=== PATIENT | female | born 1975 | race Caucasian/White ===

== ENCOUNTER 2018-09-02 15:01 | Outpatient (REF) | payer MEDICAID, SELFPAY | END 2018-09-02 15:21 | LOC: NCHCN 15:01 | PROVIDERS: PCP Specialist/Technologist Athletic Trainer; Visit Provider Specialist/Technologist Athletic Trainer | DX: N39.0 Urinary tract infection, site not specified (principal) | CPT/HCPCS: 87086 ==

== ENCOUNTER 2018-11-22 14:00 | Outpatient (REF) | payer MEDICAID, SELFPAY ==
[2018-11-26 12:38] LABS: Helicobacter pylori Ag, Feces Positive (NEGAT)
== END 2018-11-22 14:20 ==
LOC: LBN 14:00
PROVIDERS: PCP Specialist/Technologist Athletic Trainer; Visit Provider Physician Assistant
DX: A04.8 Other specified bacterial intestinal infections (principal)
CPT/HCPCS: 87338

== ENCOUNTER 2019-01-26 12:19 | Emergency (ER) | payer MEDICAID, SELFPAY ==
[2019-01-26 12:24] VITALS: BP 145/88; PULSE 75; RESP 16; TEMP 37; O2SAT 96
--- NOTE | 2019-01-26 12:28 | ED.GENADUL_ITS ---
Discharge Plan Disposition Patient Disposition: HOME Condition: Stable Discharge Details Chief Complaint: Sorethroat Clinical Impression: Pharyngitis Primary Care Provider: Erasmo Portillo ED Provider: Clovis Bower Home Meds and New Rx's Prescriptions: No Action tetracycline 500 mg Capsule 500 mg PO QID RF: 0 metronidazole [Flagyl] 250 mg Tablet 250 mg PO QID RF: 0 pantoprazole [Protonix] 40 mg Tablet,Delayed Release (Dr/Ec) 40 mg PO BID RF: 0 Discharge Instructions Instructions: Pharyngitis (ED) Medical Decision Making 43 yo female comes in with several days of sore throat and subjective fevers. Denies trouble swallowing or breathing. 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 Date/Time Provider Initiated Documentation: 01/26/19 12:19 . Limitations to Documentation: no limitations . Information obtained by: patient . History of Present Illness 43 year old F presents to the emergency department with the chief complaint of sore throat, described as moderate, Quality is described as aching, and is localized to the mouth. Patient reports no radiation. and it has been constant. No relieving factors improve symptom(s), No exacerbating factors reported . Patient notes no other symptoms.. Patient did receive the following treatments prior to arrival, none Related Data Home Medications Medication Instructions Recorded Confirmed metronidazole [Flagyl] 250 mg PO QID 01/26/19 01/26/19 pantoprazole [Protonix] 40 mg PO BID 01/26/19 01/26/19 tetracycline 500 mg PO QID 01/26/19 01/26/19 Allergies Allergy/AdvReac Type Severity Reaction Status Date / Time oxycodone Allergy Unverified 01/26/19 12:28 shellfish Allergy Uncoded 01/26/19 12:27 Review of Systems Review of Systems All systems reviewed & are unremarkable except as noted in HPI and below Constitutional Denies chills, Denies fever(s) and Denies weakness ENT Denies change in voice Cardiovascular Denies chest pain and Denies dyspnea Respiratory Denies cough and Denies dyspnea Gastrointestinal Denies abdominal pain, Denies nausea and Denies vomiting Integumentary/Breasts Denies rash Neurologic Denies weakness Psychiatric Denies depression [facility] Social History Smoking/Tobacco Use Status: Never Substance use type: does not use Exam Const General: no acute distress Orientation: alert HENMT Head: normal to inspection Ears: external ears normal General nose exam: external nose normal Mouth: moist mucous membranes Eyes General: appearance normal, both eyes and all related structures Neck Neck: normal visual inspection Resp Effort & Inspection: normal respiratory effort and able to speak in complete sentences Cardio Rate: regular rate Skin General skin exam: no rashes or lesions noted Neuro General: alert and oriented x3 Extrem General: normal to inspection Psych Mental Status: mental status grossly normal
[2019-01-26] MEDS: Acetaminophen 500 MG TAB 1000 MG PO (12:37)
== END 2019-01-26 12:54 | disposition home or self-care (01) ==
LOC: ER 12:57
PROVIDERS: Emergency Provider Emergency Medicine; PCP Specialist/Technologist Athletic Trainer
DX: J02.9 Acute pharyngitis, unspecified (principal)
CPT/HCPCS: 87880; 99282; 87081

== ENCOUNTER 2019-02-20 09:00 | Outpatient (CLI) | payer MEDICAID, SELFPAY ==
[2019-02-21 10:09] LABS: Hepatitis B Surface Ag Negative (NEGAT)
[2019-02-21 10:20] LABS: Hepatitis C Ab w Rflx HCV PCR Negative (NEGAT)
[2019-02-25 12:28] LABS: Helicobacter pylori Ag, Feces Negative (NEGAT)
== END 2019-02-20 09:20 ==
PROVIDERS: PCP Specialist/Technologist Athletic Trainer; Visit Provider Physician Assistant
DX: K76.0 Fatty (change of) liver, not elsewhere classified (principal); A04.8 Other specified bacterial intestinal infections
CPT/HCPCS: 36415; 86803; 87338; 87340

== ENCOUNTER 2019-07-14 09:38 | Outpatient (CLI) | payer MEDICAID, SELFPAY ==
--- NOTE | 2019-07-14 09:42 | DI.US_ITS ---
SYMPTOM/DIAGNOSIS: RT FLANK PAIN AND GB DISEASE Z87.442, PERSONAL HX OF URINARY CALCULI ABDOMINAL ULTRASOUND,RENAL ULTRASOUND: 07/14 The visualized liver parenchyma is normal in appearance. There is no evidence of cholelithiasis or biliary dilatation. Pancreas appears intact as visualized. Kidneys are normal in size and shape and there is no evidence of a renal mass, hydronephrosis or nephrolithiasis. Urinary bladder is unremarkable in appearance with pre and post void urinary bladder volume measurements 45 cc and 14 cc respectively. Ureteral jets were identified bilaterally. The spleen is unremarkable in appearance. Abdominal aorta and IVC are of normal diameter. CONCLUSION: Negative abdominal/renal ultrasound.
== END 2019-07-14 09:58 ==
PROVIDERS: PCP Physician Assistant Medical; Visit Provider Urology
DX: Z87.442 Personal history of urinary calculi (principal); R10.31 Right lower quadrant pain
CPT/HCPCS: 76770; 76700

== ENCOUNTER 2019-12-18 12:09 | Outpatient (REF) | payer MEDICAID, SELFPAY ==
--- NOTE | 2019-12-18 11:30 | SKI_PTH ---
PATIENT: Vianney Yanes LOC: [facility]#:[id number] AGE/SX: 44/F ROOM: RE12/18/[address]: Erasmo Portillo : 1975 BED: DIS: 12/18/2019 SPEC #: [id number] RECD: 12/19/19 12:49 STATUS: LATRELL REChai #: [id number] ZAHRA: 12/18/19 11:[address]: Erasmo Portillo DEPT: Surgical Specimen RECD BY: Keren Clay ENTERED: 12/19/19 12:49 SP TYPE: KEHINDE HODGSON DR: Sonido Cordoba Tissues: 1 - SKIN BIOPSY(SHAVE/PUNCH) 2 - SKIN BIOPSY(SHAVE/PUNCH) Procedures: SKIN LEVEL 4 Comments: [id number]
== END 2019-12-18 12:29 ==
LOC: NCHCN 12:09
PROVIDERS: PCP Physician Assistant Medical; Visit Provider Specialist/Technologist Athletic Trainer
DX: D22.62 Melanocytic nevi of left upper limb, including shoulder (principal); D22.5 Melanocytic nevi of trunk
CPT/HCPCS: 88305

== ENCOUNTER 2020-04-16 12:38 | Emergency (ER) | payer MEDICAID, SELFPAY ==
[2020-04-16 12:45] VITALS: BP 150/77; PULSE 88; RESP 16; TEMP 36.9; O2SAT 95
--- NOTE | 2020-04-16 13:00 | ED.GENADUL_ITS ---
Discharge Plan Disposition Patient Disposition: HOME Condition: Stable Discharge Details Chief Complaint: AnimalBite Clinical Impression: Dog bite Primary Care Provider: Sonido Cordoba ED Provider: Leyla Herron Meds and New Rx's Prescriptions: New amoxicillin-pot clavulanate [Augmentin] 875-125 mg tablet 1 tab PO BID Qty: 20 RF: 0 Continued pantoprazole [Protonix] 40 mg Tablet,Delayed Release (Dr/Ec) 40 mg PO BID RF: 0 Discharge Instructions Instructions: Animal Bite (ED) Additional Instructions: Wash area gently with soap and water once or twice daily. Apply topical antibiotic ointment to the wound. Use antibiotics as prescribed by mouth. Consider probiotic with use of your antibiotic Tylenol for soreness if needed. Keep hand elevated for throbbing. Observe for any signs of increased redness, swelling or pain as discussed. Any indication of infection or drainage have reevaluation in the emergency room. Your x-ray today was normal Recheck blood pressure with her primary care doctor as it was mildly elevated. Return for any worsening, concerns or alarming symptoms sooner if needed Medical Decision Making <WANDY Byers - Last Filed: 04/16/20 13:40> Is a 44-year-old patient presenting after a dog bite to her right hand sustained today when playing tug-of-war with her dog. Patient is a small 1 cm laceration to the dorsal aspect of her right hand. She does have focal pain at the site. Please see HPI for the remainder patient's history. Patient's dog's rabies are up-to-date. Patient's tetanus is up-to-date. Patient has mild focal pain with palpation. After discussion of x-ray patient would prefer x-ray at this time. Patient has nothing to indicate ligamentous injury. X-ray obtained and unremarkable for acute fracture dislocation. Patient provided initial dose of antibiotics in the emergency room. Wound was cleaned and irrigated, dressing placed. Counseled regarding conservative treatments in addition to concerns of infection. Discussed antibiotic use, signs and symptoms or return. The patient was stable and requested discharge. Prior to discharge, my usual and customary return precautions were reviewed with the patient - this included follow-up instructions and reasons to return to the Emergency Department if conditions worsens, does not improve as expected, or other new concerns arise. <Clovis Bower MD - Last Filed: 04/16/20 13:02> I had a [id number] encounter with the patient. I evaluated the patient. I discussed case with ESCALATOR OPERATOR/PA and I reviewed ESCALATOR OPERATOR/PA note and agree with note as documented HPI <WANDY Byers - Last Filed: 04/16/20 13:40> General Date/Time Provider Initiated Documentation: 04/16/20 12:46 . HPI Narrative: This is a 44-year-old patient presenting the emergency room complaints of a dog bite prior to arrival. Patient was playing tug of war with her own dog and dog bit too close to the toy and hit the dorsal aspect of her right hand. Patient sustained a 1 cm superficial laceration to the dorsal aspect of the hand. Does complain of pain through the fourth and fifth digit. Patient's tetanus up-to-date in 2019, dog's rabies are up-to-date. Patient denies numbness, tingling or weakness. Pain with range of motion of the fourth and fifth digit is reported. Bleeding is controlled. Patient denies any other sites of injuries or concerns. Injury did occur prior to arrival. Related Data Home Medications Medication Instructions Recorded Confirmed pantoprazole [Protonix] 40 mg PO BID 01/26/19 04/16/20 amoxicillin-pot clavulanate 1 tab PO BID #20 tab 04/16/20 [Augmentin] Previous Rx's Medication Instructions Recorded amoxicillin-pot clavulanate 1 tab PO BID #20 tab 04/16/20 [Augmentin] Allergies Allergy/AdvReac Type Severity Reaction Status Date / Time oxycodone Allergy Unverified 04/16/20 12:56 shellfish Allergy Uncoded 04/16/20 12:56 General Stated Complaint: AnimalBite EBONIE: 3 Review of Systems <WANDY Byers - Last Filed: 04/16/20 13:40> All systems reviewed & are unremarkable except as noted in HPI and below PFSH <WANDY Byers - Last Filed: 04/16/20 13:40> Social History Smoking/Tobacco Use Status: Never Alcohol Intake: current Alcohol Intake frequency: holidays/special occasions only Substance use type: does not use Do you feel safe at home: Yes Do you feel safe in your relationship?: Yes Exam <WANDY Byers - Last Filed: 04/16/20 13:40> Narrative Exam Narrative: CONST: Healthy appearing patient, in no acute distress. Well hydrated. Alert and oriented. HENMT: Head nomocephalic, normal to inspection. Atraumatic. Hearing grossly normal. EYES: General normal appearance. Alignment normal. Eyelids normal. Conjunctiva normal. NECK: Normal visual inspection. FROM. Trachea midline. No Midline tenderness. CHEST: Normal insepection of the chest. RESP: Normal respiratory effort. Speaking full sentences. No cough. No audible wheezing. No retractions. CARDIO: No JVD. MUSCULOSKELETAL: Normal Gait. FROM of all extremities. Right arm: Right hand with a small 1 cm linear superficial laceration without noted deep extension. Patient has mild hand pain to palpation over the fourth and fifth metacarpal distally. Mild digit pain with palpation of the fourth and fifth digit. Flexion extension intact throughout hand. No sign of erythema or secondary infection at this time. Bleeding is controlled. Television Mechanic strength intact. No pain or injury proximal to the hand. SKIN: Normal. Dry. No rashes. NEURO: Alert and awake. Speech clear. PSYCH: Normal affect. Cooperative. Course <WANDY Byers - Last Filed: 04/16/20 13:40> Vital Signs Vital signs: Vital Signs Temperature 36.9 C 04/16/20 12:45 Pulse 88 04/16/20 12:45 Respiratory Rate 16 04/16/20 12:45 Blood Pressure 150/77 H 04/16/20 12:45 Pulse Oximetry 95 04/16/20 12:45 Temperature 36.9 C 04/16/20 12:45 Temperature Source Skin 04/16/20 12:45 Pulse 88 04/16/20 12:45 Respiratory Rate 16 04/16/20 12:45 Respiratory Effort 04/16/20 12:58 Blood Pressure 150/77 H 04/16/20 12:45 Blood Pressure Position Sitting 04/16/20 12:45 Pulse Oximetry 95 04/16/20 12:45 Oxygen Delivery Method Room Air 04/16/20 12:45 Oxygen Flow Rate 0 04/16/20 12:45 Pain Level 8 04/16/20 12:45 Comment 04/16/20 12:45
--- NOTE | 2020-04-16 13:15 | DI.RAD_ITS ---
EXAM: XR HAND RT COMPLETE CLINICAL HISTORY: dog bite right hand MILLER ROD MILL. TECHNIQUE: 2D digital imaging was performed. COMPARISON: No exams were available for comparison FINDINGS: BONES: No acute fracture is present. No bony destructive lesion is seen. JOINTS: No dislocation present. SOFT TISSUE: Normal. No radiopaque foreign body. IMPRESSION: No acute fracture, dislocation or foreign body. DATA REPOSITORY: RADIATION DOSE DELIVERED:
[2020-04-16] MEDS: Amoxicillin 875/Clav. 125 TAB PO (13:36)
[2020-04-16 13:41] VITALS: BP 142/81; PULSE 78; RESP 16; TEMP 36.9; O2SAT 97
[2020-04-16 13:43] VITALS: BP 142/81; PULSE 78; RESP 16; TEMP 36.9; O2SAT 97
[2020-04-16] MEDS: Bacitracin 1 PACKET (13:57)
== END 2020-04-16 13:46 | disposition home or self-care (01) ==
LOC: ER 13:51
PROVIDERS: Emergency Provider Physician Assistant; PCP Physician Assistant Medical
DX: S61.451A Open bite of right hand, initial encounter (principal); W54.0XXA Bitten by dog, initial encounter
CPT/HCPCS: 99283; 73130

== ENCOUNTER 2020-06-29 17:11 | Outpatient (REF) | payer MEDICAID, SELFPAY ==
[2020-06-29 19:01] LABS: Bilirubin Negative (Negative); Blood Negative (Negative); Clarity Clear (Clear); Glucose Negative (Negative); Ketones Negative (Negative); Leukocyte Esterase Negative (Negative); Nitrite Negative (Negative); Specific Gravity 1.015 (1.005-1.025); Urobilinogen 0.2 EU/dL (Up TO 0.2)
== END 2020-06-29 17:31 ==
LOC: NCHCN 17:11
PROVIDERS: PCP Physician Assistant Medical; Visit Provider Family Medicine
DX: R35.0 Frequency of micturition (principal)
CPT/HCPCS: 81003

== ENCOUNTER 2020-07-14 01:13 | Outpatient (CLI) | payer MEDICAID, SELFPAY ==
--- NOTE | 2020-07-14 | DI.US_ITS ---
EXAM: US RENAL PELVIC TRANSVAGINAL CLINICAL HISTORY: URINARY FREQUENCY,R35.0,PELVIC PAIN,R10.2. TECHNIQUE: Lee scale, color and spectral Doppler were used. COMPARISON: US US ABDOMEN RENAL from 07/14/2019 FINDINGS: Renal ultrasound: Renal size in cm: Right: 12.3 left: 12.8 Echogenicity: Normal Hydronephrosis: No Cyst or mass: No Nephrolithiasis: No Other findings: None Bladder:Suboptimally evaluated due to under distension. Prevoid vol:29 cc Postvoid vol:2 cc DOPPLER FINDINGS: Both ureteral jets were visualized. Pelvic ultrasound: The uterus measures 8.8 x 4.6 x 5.7 cm. No fibroids are seen. The endometrium me asures 7 millimeters in thickness. The ovaries are normal in size and appearance. No free fluid is seen in the cul de sac. IMPRESSION: Unremarkable pelvic ultrasound. No evidence of urinary tract calculi or hydronephrosis. DATA REPOSITORY:
== END 2020-07-14 01:33 ==
PROVIDERS: PCP Physician Assistant Medical; Visit Provider Family Medicine
DX: R35.0 Frequency of micturition (principal); R10.2 Pelvic and perineal pain
CPT/HCPCS: 76770; 76830; 76856

== ENCOUNTER 2020-07-20 15:54 | Outpatient (REF) | payer MEDICAID, SELFPAY ==
[2020-07-20 20:10] LABS: Abs Immature Grans 0.02 10^3/uL (0.0-0.06); Absolute Basophil Count 0.03 10^3/uL (0.0-0.2); Absolute Eosinophil Count 0.11 10^3/uL (0.0-0.7); Absolute Lymphocyte Count 3.13 10^3/uL (1.2-3.4); Absolute Monocyte Count 0.57 10^3/uL (0.1-0.8); Basophils % 0.4; Eosinophils % 1.4; HCT 39.6 % (36.0-46.0); HGB 13.1 g/dL (11.2-15.7); Immature Grans % 0.3; Lymphocytes % 40.9; MCH 30.7 pg (27.0-33.0); MCHC 33.1 % (32.0-36.0); MCV 92.7 fL (80-95); MPV 11.7 fL (8.0-11.0); Monocytes % 7.4; Neutrophils % 49.6; Nucleated RBC 0 %; Platelet Count 280 10^3/uL (130-400); RBC 4.27 10^6/uL (3.93-5.22); RDW 12.1 % (11.7-14.6); WBC 7.66 10^3/uL (4.4-10.8)
[2020-07-20 20:14] LABS: ALT 19 U/L (14-59); AST 19 U/L (15-37); Albumin 3.9 g/dL (3.4-5.0); Alkaline Phosphatase 67 U/L (46-116); Anion Gap 9.4 mmol/L (3-11); BUN 15 mg/dL (7-18); Bilirubin, Total 0.4 mg/dL (0.2-1.0); CO2 24.6 mmol/L (21.0-32.0); CREATININE 0.81 mg/dL (0.55-1.02); Calcium 9.1 mg/dL (8.5-10.1); Chloride 106 mmol/L (98-107); Glucose 75 mg/dL (74-106); Potassium 4.1 mmol/L (3.5-5.1); Sodium 140 mmol/L (136-145); TSH (W/Ref FT4) 1.11 uIU/mL (0.36-3.74); Total Protein 6.8 g/dL (6.4-8.2)
== END 2020-07-20 16:14 ==
LOC: NCHCN 15:54
PROVIDERS: PCP Physician Assistant Medical; Visit Provider Physician Assistant Medical
DX: R00.1 Bradycardia, unspecified (principal); Z01.818 Encounter for other preprocedural examination
CPT/HCPCS: 80053; 84443; 85025

== ENCOUNTER 2021-01-21 14:47 | Outpatient (REF) | payer MEDICAID, SELFPAY ==
[2021-01-21 18:32] LABS: ALT 19 U/L (14-59); AST 14 U/L (15-37); Albumin 4.1 g/dL (3.4-5.0); Alkaline Phosphatase 92 U/L (46-116); Anion Gap 10.7 mmol/L (3-11); BUN 15 mg/dL (7-18); Bilirubin, Total 0.4 mg/dL (0.2-1.0); CO2 25.3 mmol/L (21.0-32.0); CREATININE 0.9 mg/dL (0.55-1.02); Calcium 9.5 mg/dL (8.5-10.1); Calculated LDL 151 mg/dL (<100); Chloride 107 mmol/L (98-107); Cholesterol 217 mg/dL (<200); Glucose 94 mg/dL (74-106); HDL Cholesterol 44 mg/dL (40-60); Potassium 4.3 mmol/L (3.5-5.1); Sodium 143 mmol/L (136-145); TSH (W/Ref FT4) 2.29 uIU/mL (0.36-3.74); Total Protein 7.6 g/dL (6.4-8.2); Triglyceride 113 mg/dL (<150)
== END 2021-01-21 14:48 | disposition home or self-care (01) ==
LOC: NCHCN 14:47
PROVIDERS: PCP Physician Assistant Medical; Visit Provider Physician Assistant Medical
DX: Z13.220 Encounter for screening for lipoid disorders (principal); Z13.29 Encounter for screening for other suspected endocrine disorder; Z13.228 Encounter for screening for other metabolic disorders
CPT/HCPCS: 80053; 80061; 84443

== ENCOUNTER 2021-01-26 01:28 | Outpatient (CLI) | payer MEDICAID, SELFPAY ==
--- NOTE | 2021-01-26 | DI.MAMMO_ITS ---
EXAM: MG MAMMO SCREENING CLINICAL HISTORY: SCREENING, HEALTH MAINTENANCE EXAM,Z00.8. TECHNIQUE: Bilateral full field digital CC and MLO mammographic images were obtained with 3D tomosyn thesis and utilizing computer aided detection (CAD). COMPARISON: Prior outside mammogram performed August 2017. FINDINGS: Posteriorly in the left breast there is a benign-appearing noncalcified nodule measuring 11 x 10 mill imeters located 10 cm in from the nipple, having the appearance of a probable lymph node and unchange d from 2017 and therefore benign. No other focal significant finding in the left breast. Anteriorly in the right breast there is some asymmetric tissue which exhibits benign appearance on bi plane 3D imaging. No malignant-appearing microcalcification groups in either breast. There is no significant architectural distortion nor skin thickening-retraction. IMPRESSION: Benign findings. No radiographic evidence of malignancy. BI-RADS Category 2 - Benign Findings Breast Density - Category B - Scattered areas of fibroglandular density Breast density Category C or D implies that the patient has dense breast tissue. Dense breast tissue can make it harder to find cancer on a mammogram. Dense breast tissue is also associated with an incr eased risk of breast cancer. This information about the result of the mammogram report was provided to the patient to raise their awareness. Use this report when you speak with the patient about their risks for breast cancer, which includes their family history. At that time, you may recommend additional screening tests (Ultrasoun d or MRI) as these tests may add significant information. A negative radiographic report should not delay biopsy if a dominant or clinically suspicious mass is present. Up to ten percent of cancers are not identified on mammography. A negative report may reinforce clinical impression. Adenosis and dense breasts may obscure an underlying neoplasm. False positive reports average 6 to 10%. Patient will receive a letter notifying them of these results.
== END 2021-01-26 01:48 ==
PROVIDERS: PCP Physician Assistant Medical; Visit Provider Physician Assistant Medical
DX: Z12.31 Encounter for screening mammogram for malignant neoplasm of breast (principal)
CPT/HCPCS: 77063; 77067

== ENCOUNTER 2021-10-21 14:52 | Outpatient (REF) | payer MEDICAID, SELFPAY ==
[2021-10-21 20:12] LABS: Calculated LDL 135 mg/dL (<100); Cholesterol 195 mg/dL (<200); Glucose 91 mg/dL (74-106); HDL Cholesterol 48 mg/dL (40-60); Triglyceride 64 mg/dL (<150)
[2021-10-21 20:23] LABS: Hemoglobin A1C 5.4 % (<5.7)
[2021-10-27 09:48] LABS: Insulin 26.4 uIU/mL (<29.0)
== END 2021-10-21 14:53 | disposition home or self-care (01) ==
LOC: NCHCN 14:52
PROVIDERS: PCP Physician Assistant Medical; Visit Provider Physician Assistant Medical
DX: E66.9 Obesity, unspecified (principal)
CPT/HCPCS: 80061; 82947; 83036; 83525

== ENCOUNTER 2021-11-17 01:52 | Outpatient (CLI) | payer MEDICAID, SELFPAY ==
--- NOTE | 2021-11-17 14:00 | DI.RAD_ITS ---
Exam(s) XR HAND RT COMPLETE EXAM: XR HAND RT COMPLETE CLINICAL HISTORY: RT HAND PAIN, M79.641. TECHNIQUE: 2D digital imaging was performed. COMPARISON: CR XR HAND RT COMPLETE from 04/16/2020 FINDINGS: BONES: No acute fracture is present. No bony destructive lesion is seen. JOINTS: No dislocation present. SOFT TISSUE: Normal. IMPRESSION: Unremarkable radiographs of the right hand. DATA REPOSITORY: RADIATION DOSE DELIVERED:
== END 2021-11-17 02:12 ==
PROVIDERS: PCP Physician Assistant Medical; Visit Provider Physician Assistant Medical
DX: M79.641 Pain in right hand (principal)
CPT/HCPCS: 73130

== ENCOUNTER 2021-12-06 17:19 | Outpatient (REF) | payer MEDICAID, SELFPAY ==
[2021-12-07 14:32] LABS: COVID-19 RT-PCR UVMMC Result Negative (Negative)
== END 2021-12-06 17:20 | disposition home or self-care (01) ==
LOC: LBN 17:19
PROVIDERS: PCP Physician Assistant Medical; Visit Provider Nurse Practitioner Family
DX: Z20.822 Contact with and (suspected) exposure to COVID-19 (principal)
CPT/HCPCS: U0003

== ENCOUNTER 2022-12-01 11:59 | Outpatient (REF) | payer MEDICAID, SELFPAY ==
--- NOTE | 2022-12-01 11:00 | PAPFT_PTH ---
PATIENT: Vianney Yanes LOC: [facility] U#:[id number] AGE/SX: 47/F ROOM: RE12/01/[address]: Sonido Cordoba : 1975 BED: DIS: 12/01/2022 SPEC #: [id number] RECD: 12/01/22 18:45 STATUS: LATRELL REQ #: [id number] ZAHRA: 12/01/22 11:[address]: Sonido Cordoba DEPT: [facility] Cytology RECD BY: Keren Clay Tissues: 1 - CX/ENDOCX FOR PAP SMEARS Procedures: PAP THIN PREP/UVM Screening HPV DNA PROBE Comments: [id number]
[2022-12-01 19:31] LABS: HCT 39.5 % (36.0-46.0); HGB 13.2 g/dL (11.2-15.7); MCH 29.8 pg (27.0-33.0); MCHC 33.4 % (32.0-36.0); MCV 89 fL (80-95); MPV 10.8 fL (8.0-11.0); Platelet Count 305 10^3/uL (130-400); RBC 4.43 10^6/uL (3.93-5.22); RDW 11.7 % (11.7-14.6); RDW-SD 37.5 fL; WBC 7.56 10^3/uL (4.4-10.8)
[2022-12-01 19:43] LABS: ALT 16 U/L (14-59); AST 22 U/L (15-37); Albumin 4.2 g/dL (3.4-5.0); Alkaline Phosphatase 91 U/L (46-116); Anion Gap 9.7 mmol/L (3-11); BUN 15 mg/dL (7-18); Bilirubin, Total 0.4 mg/dL (0.2-1.0); CO2 26.3 mmol/L (21.0-32.0); CREATININE 0.8 mg/dL (0.55-1.02); Calcium 9.4 mg/dL (8.5-10.1); Chloride 104 mmol/L (98-107); Estimated GFR 91.97 (mL/min/1.73m2); Glucose 93 mg/dL (74-106); Potassium 3.9 mmol/L (3.5-5.1); Sodium 140 mmol/L (136-145); Total Protein 7.8 g/dL (6.4-8.2)
[2022-12-01 19:48] LABS: Hemoglobin A1C 5.5 % (<5.7)
[2022-12-01 20:01] LABS: Calculated LDL 122 mg/dL (<100); Cholesterol 185 mg/dL (<200); HDL Cholesterol 51 mg/dL (40-60); Triglyceride 60 mg/dL (<150)
== END 2022-12-01 12:00 | disposition home or self-care (01) ==
LOC: LBN 11:59
PROVIDERS: PCP Physician Assistant Medical; Visit Provider Physician Assistant Medical
DX: Z12.4 Encounter for screening for malignant neoplasm of cervix (principal); Z11.51 Encounter for screening for human papillomavirus (HPV); Z00.8 Encounter for other general examination
CPT/HCPCS: 80053; 80061; 85027; 88142; 83036; 87624

== ENCOUNTER 2023-03-23 00:51 | Outpatient (CLI) | payer MEDICAID, SELFPAY ==
--- NOTE | 2023-03-23 08:30 | DI.MAMMO_ITS ---
Exam(s) MAMMO SCREENING EXAM: MAMMO SCREENING CLINICAL HISTORY: SCREENING, Z12.31 TECHNIQUE: Bilateral full field digital CC and MLO mammographic images were obtained with 3D tomosyn thesis and utilizing computer aided detection (CAD). COMPARISON: Available for comparison. FINDINGS: Masses/Architectural Distortion: There are stable nodule seen in the posterior superior left breast o n the MLO view and the outer right breast on the CC view. No suspicious nodules or suspicious areas of architectural distortion are present. Microcalcifications: No suspicious pleomorphic-type are seen. Skin Thickening/Nipple Retraction: None. IMPRESSION: 1. No significant interval change with no specific features of malignancy noted. 2. Unless there is more urgent need, screening mammography is recommended, as per [place] [employer] guidelines. BI-RADS Category 2 - Benign Findings Breast Density - Category B - Scattered areas of fibroglandular density Breast density category C or D implies that the patient has dense breast tissue. Dense breast tissue is very common and is not abnormal but dense breast tissue can make it harder to find cancer on a ma mmogram. Also, dense breast tissue may increase their breast cancer risk. This information about the result of the mammogram report was provided to the patient to raise their awareness. Use this report when you speak with the patient about their risks for breast cancer, which includes their family hist ory. At that time, you may recommend for more screening tests (Ultrasound or MRI) as they might be us eful based on their risk. A negative radiographic report should not delay biopsy if a dominant or clinically suspicious mass is present. Up to ten percent of cancers are not identified on mammography. A negative report may reinforce clinical impression. Adenosis and dense breasts may obscure an underlying neoplasm. False positive reports average 6 to 10%. Patient will receive a letter notifying them of these results.
== END 2023-03-23 01:11 ==
LOC: DI 00:51
PROVIDERS: PCP Physician Assistant Medical; Visit Provider Physician Assistant Medical
DX: Z12.31 Encounter for screening mammogram for malignant neoplasm of breast (principal)
CPT/HCPCS: 77063; 77067

== ENCOUNTER 2023-03-26 15:40 | Outpatient (CLI) | payer MEDICAID, SELFPAY ==
--- NOTE | 2023-03-26 | DI.RAD_ITS ---
Exam(s) XR CERVICAL SPINE COMP 4-5V EXAM: XR CERVICAL SPINE COMP 4-5V CLINICAL HISTORY: Cervicalgia, M54.2. TECHNIQUE: 2D digital imaging was performed. Five images were obtained. AP, odontoid, lateral and bi lateral oblique images were obtained. COMPARISON: No exams were available for comparison FINDINGS: The odontoid is intact. The lateral masses are well aligned. There is normal alignment of the cervi burak spine. The vertebral bodies, disc spaces and posterior elements are well maintained. No acute f racture or subluxation is present. No significant neural foraminal stenosis is present. The cervical thoracic junction is well maintained. The prevertebral soft tissues are unremarkable. Lung apices a re clear. IMPRESSION: Unremarkable radiographs of the cervical spine. DATA REPOSITORY: RADIATION DOSE DELIVERED:
== END 2023-03-26 16:00 ==
LOC: DI 15:41
PROVIDERS: PCP Physician Assistant Medical; Visit Provider Nurse Practitioner Family
DX: M54.2 Cervicalgia (principal)
CPT/HCPCS: 72050

== ENCOUNTER → 2023-09-21 23:02 | Outpatient (CLI) | payer MEDICAID, SELFPAY ==
--- NOTE | 2023-09-21 | DI.RAD_ITS ---
Exam(s) XR FOOT RT COMPLETE EXAM: XR FOOT RT COMPLETE CLINICAL HISTORY: Pain in right foot M79.671. TECHNIQUE: 2D digital imaging was performed. COMPARISON: No exams were available for comparison FINDINGS: 3 views No evidence of acute fracture or diastasis of the Lisfranc joint. Great toe metatarsophalangeal join t appears unremarkable. There is prominent inferior calcaneal spur noted. Also small in these 0 fig ht on the posterior calcaneus Achilles insertion site. Bone density normal. No osseous lesions. No radiopaque foreign body. IMPRESSION: No acute osseous findings in the foot. DATA REPOSITORY: RADIATION DOSE DELIVERED:
== END ==
PROVIDERS: PCP Physician Assistant Medical; Visit Provider Physician Assistant Medical
DX: M79.671 Pain in right foot (principal)
CPT/HCPCS: 73630

== ENCOUNTER → 2024-03-24 02:17 | Outpatient (CLI) | payer MEDICAID, SELFPAY ==
--- NOTE | 2024-03-24 | DI.MAMMO_ITS ---
Exam(s) MAMMO SCREENING EXAM: MAMMO SCREENING CLINICAL HISTORY: SCREENING, Z12.31. TECHNIQUE: Bilateral full field digital CC and MLO mammographic images were obtained with 3D tomosyn thesis and utilizing computer aided detection (CAD). COMPARISON: Prior mammograms were reviewed. FINDINGS: There has been no significant change in the appearance and distribution of the fibroglandular tissue. Small benign intramammary lymph node in the right breast upper outer quadrant unchanged from prior st udies. Few benign microcalcifications posteriorly in left breast are also unchanged. There are no new spiculated masses nor new malignant appearing microcalcification groups. There is no significant architectural distortion nor skin thickening-retraction. IMPRESSION: No radiographic evidence of malignancy. BI-RADS Category 2 - Benign Findings Breast Density - Category B - Scattered areas of fibroglandular density Breast density Category C or D implies that the patient has dense breast tissue. Dense breast tissue can make it harder to find cancer on a mammogram. Dense breast tissue is also associated with an incr eased risk of breast cancer. This information about the result of the mammogram report was provided to the patient to raise their awareness. Use this report when you speak with the patient about their risks for breast cancer, which includes their family history. At that time, you may recommend additional screening tests (Ultrasoun d or MRI) as these tests may add significant information. A negative radiographic report should not delay biopsy if a dominant or clinically suspicious mass is present. Up to ten percent of cancers are not identified on mammography. A negative report may reinforce clinical impression. Adenosis and dense breasts may obscure an underlying neoplasm. False positive reports average 6 to 10%. Patient will receive a letter notifying them of these results.
== END ==
PROVIDERS: PCP Physician Assistant Medical; Visit Provider Physician Assistant Medical
DX: Z12.31 Encounter for screening mammogram for malignant neoplasm of breast (principal)
CPT/HCPCS: 77063; 77067

== ENCOUNTER 2024-10-16 17:33 | Outpatient (REF) | payer MEDICAID, SELFPAY ==
--- OUTSIDE RECORDS SUMMARY | 2024-10-16 17:35 | XMS_ITS | Clinical Summary ---
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 04/05/2015 12:37 PM 04/06/2015 5:44 PM Question Answer Comments Does patient have decision m aking capacity? Yes, order is based on Patient wishes. Care Teams Master [place] Relationship Specialty Start Date End Date Sonido Cordoba PA [address] [place] [address] PCP - General Family Medicine 07/06/20
--- OUTSIDE RECORDS SUMMARY | 2024-10-16 17:35 | XMS_ITS | Encounter Summary ---
Author Organization [facility] [place] [address] Care Team Providers Care Foot Caster Name Role Phone Sonido Cordoba Primary Care Provider [phone]- [phone] Encounter Details Date Type Department Care Team (Latest Contact Info) Description 09/15/2024 Travel Social History Tobacco Use Types Packs/Day Years Used Date Smoking Tobacco: Former Cigarettes 0.5 6 0 01/25/1991 - 01/25/1997 Smokeless Tobacco: Never Alcohol Use Standard Drinks/Week Comments Not Currently 0 (1 standard drink = 0.6 oz pur e alcohol) 1X/quarter IPV Inpatient Questions Answer Date Recorded Does Anyone [...] PM EDT Sexual Orientation Not on file documented as of this encounter Plan of Treatment Upcoming Encounters Date Type Department Care Team ( Contact Info) Description 12/31/2024 10:00 AM EST Office Visit Weight Center at [facility] [place] [address] Mercy Amanda MD [facility] [address] [facility] [address] 04/01/2025 2:00 PM EDT Office Visit Gastroenterology at [facility] [place] [id number] Erum Szymanski MD [facility] [place] [address] documented as of this encounter Goals Goal Patient Goal Type Associated Problems Recent Progress Patient-Stated? Author continue to track in an mika Lifestyle Asha Chung MD Note: Try goal of 1500 Collecting [...] a priority: - Eggs - Cheese - Macedonian yogurt / cottage cheese - meat - fish - nuts/seeds - protein shake or bar Start with the protein, can choose to add other foods (would rather have you choose regular bread/ syrian muffin, etc. - whole wheat if possible- instead of the muffin or poptart) eating timing guides Lifestyle On track(2022 9:49 AM EDT) No Priti Skinner RD Note: Aim for no more than [...] behaviors Lifestyle On track(2022 9:48 AM EDT) No Sunita Bills RD Note: Eating behaviors to practice prior [...] day - see FAQ for more details documented as of this encounter Visit Diagnoses Not on filedocumented in this encounter Care Teams Foot Caster Relationship Specialty Start Date End Date Sonido Cordoba PA [address] [place] [address] PCP - General Family Medicine 07/06/20 documented as of this encounter
--- OUTSIDE RECORDS SUMMARY | 2024-10-16 17:35 | XMS_ITS | Data Portability ---
Author Organization [place] - [facility] Address [place] [address] Assessment No assessment recorded. Plan of Treatment Reminders Order Date Submit Date Provider Last Modified By Organization Details Last Modified Time Details Appointments Acute 30 2023 03:30P M Ezekiel Sanches Not available Not available Not available Follow Up 2024 11:00A M SONIDO RAVI Not available Not available Not available Lab None recorded. Referral orthopedi c surgeon referral 2023 024 [facility], [address] [place] [address] [place], [address], 07/18/2024 17:29:54 Procedures None recorded. Surgeries None recorded. Imaging MAMMO, screening , bilateral - LAST 03/23/232023 024 [facility], [address], [place], [address], 04/04/2024 08:34:55 Medication Orders hydrocort isone 2.5 % topical cream 2023 024 [facility], [address] [place] [address], [address], 03/13/2024 11:13:25 Patient TargetsNo targets recorded. Patient Instructions Encounter Date Encounter Id Patient Instructions Last Modified By Organization Details Last Modified Time 03/13/2024 [id number] 1. It seems to simran malagon that these church are bug bites. I do recommend checking again around the house to make sure that nobody else around you is having similar bug bites. I also recommend paying attention more while outside to see if you note that you are being bit. 2. In an effort to help control the itch I have sent for a low-dose steroid cream you can apply to the areas of itch no more than twice a day and no longer than 2 weeks in any 1 area. 3. I would also like you to get the generic form of Zyrtec and dxhh-mth-tjvuxrn allergy medication that is nondrowsy. This will help with itch. I recommend taking it during the daytime. I also recommend taking 1 tablet of Benadryl at nighttime because this 1 is sedating. 4. I also recommend applying ice to the areas of itch. This can greatly help. Heat often increases itch. 5. If the above does not improve symptoms and/or they have any worsening please seek reevaluation as needed [email or web address] Not available 03/13/2024 11:14:24 Reason for Referral Orthopedic Surgeon Referral for Trigger thumb of left hand Referring Physician: Sonido Ravi, Family Medicine, Encounter Date: 06/09/2024 Results Created Date Observation Date Name Description Value Unit Range Abnormal Flag Note LastModifiedBy Organization Detail LastModifiedTime 03/24/20 24 03/24/2024 yuriy OVIEDOrian rohan Name: Jaxon Yanes Unit #: [id number] Loc: DI Orderi ng Provid er: Maggie Swanson rn Accoun t #: [id number] Status : REG CLI Primar y Care Provid er: Maggie Swanson rn Date of Exa m: Sex: F Admiss ion Date: : 1974 Age: 48 Exam(s ) MG MAMMO SCREEN ING EXAM: MG MAMMO SCREEN ING CLINIC AL HISTOR Y: SCREEN ING, Z12.31 . TECHNI QUE: Bilate ral full field digita l CC and MLO mammog raphic images were obtain ed with 3D tomosy nthesi s and utiliz ing comput er aided detect ion (CAD). COMPAR HERNANDO: Prior mammog shiraz were review ed. FINDIN GS: There has been no signif icant change in the appear ance and distri bution of the fibrog landul ar tissue . Small benign intram ammary lymph node in the right breast upper outer quadra nt unchan ged from prior studie s. Few benign microc alcifi cation s chief technology officer iorly in left breast are also unchan ged. There are no new spicul ated masses nor new malign ant appear ing microc alcifi cation groups . There is no signif icant duran ectura l distor tion nor skin thicke rosette-r etract ion. IMPRES DANNY: No radiog raphic eviden ce of malign yuriy. BI-RAD S Catego ry 2 - Benign Findin gs Breast Densit y - Catego ry B - Scatte red areas of fibrog landul ar densit y Breast densit y Catego ry C or D implie s that the patien t has dense breast tissue . Dense breast tissue can make it harder to find cancer on a mammog keshawn. Dense breast tissue is also associ ated with an increa sed risk of breast cancer . This inform ation about the result of the mammog keshawn report was provid ed to the patien t to raise their awaren ess. Use this report when you speak with the patien t about their risks for breast cancer , which includ es their family histor y. At that time, you may recomm end additi onal screen ing tests (Ultra sound or MRI) as these tests may add signif icant inform ation. A negati ve radiog raphic report should not delay biopsy if a domina nt or clinic ally suspic ious mass is presen t. Up to ten percen t of cancer s are not identi fied on mammog matthias. A negati ve report may reinfo rce clinic al impres danny. Adenos is and dense breast s may obscur e an underl hossein neopla sm. False positi ve report s averag e 6 to 10%. Patien t will receiv e a letter notify ing them of these result s. Ordere d By: Sky pack,Maggie SABA CC: ------ ------ ------ ------ ------ ------ ------ ------ ------ ------ ------ ------ - Dictat ed By: Laci Wallace M.D. [id number] Transc ribed By: Madison RIVAS,Daljit palmer [id number] This is privil eged, confid ential inform ation intend ed only for the provid er named. Any use or distri bution by any person other than this provid er is strict ly prohib ited. If you receiv e this report in error, please notify us immedi ately at and return the origin al report to us at the addres s above. Thank- you. [email or web address] [facility] [address], [place], [address], 04/04/2024 08:34:55 07/21/20 24 07/20/2020 imagi ng/di zeny tic resul t No observ ation record ed. Not Available 07/21 02:49:18 07/21/20 24 03/23/2023 MAMMO , diagn ostic No observ ation record ed. Not Available 07/21 02:51:54 07/21/20 24 01/27/2021 MAMMO , scree rosette No observ ation record ed. Not Available 07/21 02:51:57 07/21/20 24 03/23/2023 MAMMO , scree rosette No observ ation record ed. Not Available 07/21 02:51:58 07/21/20 24 04/16/2020 XR, hand No observ ation record ed. Not Available 07/21 02:52:07 07/21/20 24 11/17/2021 XR, hand No observ ation record ed. Not Available 07/21 02:52:08 07/21/20 24 07/14/2019 imagi ng/di maria doloresos tic resul t No observ ation record ed. Not Available 07/21 02:52:11 07/21/20 24 03/26/2023 imagi ng/di agnos tic resul t No observ ation record ed. Not Available 07/21 02:52:12 07/21/20 24 09/21/2023 imagi ng/di agnos tic resul t No observ ation record ed. Not Available 07/21 02:52:14 07/21/20 24 07/14/2020 imagi ng/di agnos tic resul t No observ ation record ed. Not Available 07/21 02:52:15 Result Notes None recorded. Problems Name Problem SNOMED Code Status Onset Date Resolution Date Notes Provider Name and Address Organization Details Recorded Time Postmeno pausal bleeding 81087501 Active 2023 EZEKIEL SALAS-Les REW, MULTIFOCAL LENS ASSEMBLER-BC [address], [place], [address] , [facility] 4 16:04:27 Obesity 759332478 Active 201010/28/20 21 - Comments only - Sonido Ravi PA-C - BMI 40. Working with [facility]. Requeste d venancioato ry testing collecte d today. Problem Code: E66.9; Problem Code Type: ICD-10; Not Available [facility] 3 04:30:53 Posttrau matic stress disorder 99480098 Active 2011 Problem Code: F43.10; Problem Code Type: ICD-10; Not Available [facility] 3 04:30:53 History of infectio us disease 680234042 Active 2012 Problem Code: Z86.19; Problem Code Type: ICD-10; Not Available [facility] 3 04:30:53 Pain of left shoulder joint 13162663092 036959 Completed 201408/28/2023 Problem Code: M25.512; Problem Code Type: ICD-10; Not Available [facility] 4 05:37:23 Insomnia 411623727 Active 201507/12/20 16 - Comments only - Sonido Ravi PA-C - Supporti ve listenin g provided today. Will arrange for patient to schedule with [employer] for behavior al health supports to address acute stress associat ed with upcoming legal proceedi ngs. Otherwis e to continue on TRAZODON E 50-100mg QHS PRN for sleep. Problem Code: G47.00; Problem Code Type: ICD-10; Not Available [facility] 3 04:30:53 Rodgers' s esophagu s 197509395 Active 201510/28/20 21 - Comments only - Sonido Ravi PA-C - [place] [facility] [place] . To continue on PROTONIX 40mg BID as RXd by specialt y service provider . Next EGD due . Problem Code: K22.70; Problem Code Type: ICD-10; Not Available [facility] 3 04:30:53 Diarrhea 47532917 Completed 201508/06/2016 07/31/20 16 - Comments only - Sonido Ravi PA-C - Suspect sxs reflecti ve of self-perez iting viral gastroen teritis. In any event, patient without signs to suggest for ongoing infectio us risk. Letter drafted to employer to this effect. Problem Code: R19.7; Problem Code Type: ICD-10; Not Available [facility] 3 04:30:53 Anxiety disorder 003055380 Active 201512/04/19 23 - Comments only - Sonido Ravi PA-C - - ANXIETY, PTSD Mood stable on CELEXA 20mg QD and TRAZODON E 50mg QHS PRN. Problem Code: F41.9; Problem Code Type: ICD-10; Not Available [facility] 3 04:30:53 Tension- type headache 445256240 Active 201612/17/19 19 - Comments only - Sonido Ravi PA-C - Will refer to Nito Wells for PT/chiro practic treatmen t interven tions Problem Code: G44.209; Problem Code Type: ICD-10; Not Available [facility] 3 04:30:54 General examinat ion of patient Active 201612/04/19 23 - Comments only - Sonido Ravi PA-C - PAP collecte d today. Bivalen COVID booster and PCV 20 administ ered today. Mammogra m to be schedule d at [facility] at next availabl e. 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 Problem Code: R60.0; Problem Code Type: ICD-10; Not Available [facility] 3 04:30:54 Rosacea 295175805 Active 201608/19/20 17 - Comments only - Sonido Ravi PA-C - To begin RXD METROGEL 1% BID Problem Code: L71.9; Problem Code Type: ICD-10; Not Available [facility] 3 04:30:54 Acute upper respirat ory infectio n 51149044 Completed 201711/30/2017 11/16/19 18 - Comments only - Sonido Ravi PA-C - Patient reassure d no signs on today's PX to suggest for bacteria l process that would necessit ate ABX dosing. Will use RXd PREDNISO NE 40mg QD x 4d as burst to relief upper airway reactivi ty. Would expect for progress tiffany improvem ent over the course of this upcoming weekend. Problem Code: J06.9; Problem Code Type: ICD-10; Not Available [facility] 3 04:30:54 Acute sinusiti s 70685655 Completed 201712/18/2017 12/04/19 18 - Comments only - Sonido Ravi PA-C - Will treat with RXd AUGMENTI N 875-125m g BID x 7d. F/U PRN. Problem Code: J01.90; Problem Code Type: ICD-10; Not Available [facility] 3 04:30:54 Housing problems Completed 201712/18/2017 12/04/19 18 - Comments only - Sonido Ravi PA-C - Supporti ve listenin g provided today. Patient stongly encourag ed to ilya prince with outside counseli ng provider ([employer] services not covered by current insuranc e provider ) for behavior al health supports . Therapy pet note provided as per patient request. Not Available [facility] 3 04:30:54 Diarrhea 36931617 Completed 201702/20/2018 02/07/20 18 - Comments only - Sonido Ravi PA-C - Given chronici ty of sxs, will refer [place] [facility] [place] for consider ation for colonosc opy and further treatmen t interven tions (suspect IBS). 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 793252899 Active 2018 Problem Code: B96.81; Problem Code Type: ICD-10; Not Available [facility] 3 04:30:55 Plantar fascial fibromat osis 50485692 Completed 201812/31/2018 12/17/19 19 - Comments only - Sonido Ravi PA-C - As per patient request, will refer to [facility] [place] for consider ation towards more CORTISON E injectio n Problem Code: M72.2; Problem Code Type: ICD-10; Not Available [facility] 3 04:30:55 Enthesop athy 30692858 Completed 201908/28/2023 Problem Code: M77.8; Problem Code Type: ICD-10; Not Available [facility] 4 05:37:22 Benign neoplasm of skin 71843019 Completed 201908/28/2023 Problem Code: D23.9; Problem Code Type: ICD-10; Not Available [facility] 4 05:37:22 Herpes zoster 9244487 Completed 201908/28/2023 Problem Code: B02.9; Problem Code Type: ICD-10; Not Available [facility] 4 05:37:23 Dog bite Completed 201905/04/2020 04/20/20 20 - Comments only - Sonido Ravi PA-C - Wound appears to be healing well. Excused from work duties through 04/22/20. To continue on AUGMENTI N as RXD by ARACELY phan F/[place] PRN. Not Available [facility] 3 04:30:56 Foot pain 66510861 Completed 201906/28/2020 06/14/20 20 - Comments only - Sonido Ravi PA-C - Suggeste d patient explore more supporti ve footwear and/or blister proof socks if she intends to continue with walking activiti es. Will refer to podiatry to assess for custom orthotic s. Problem Code: M79.673; Problem Code Type: ICD-10; Not Available [facility] 3 04:30:56 Peroneal tendinit is of right lower limb 90237126338 9109 Completed 201908/28/2023 Problem Code: M76.71; Problem Code Type: ICD-10; Not Available [facility] 4 05:37:24 Pre-surg he evaluati on Completed 201908/03/2020 07/20/20 20 - Comments only - Sonido Ravi PA-C - In-offic e EKG shows NSR @ XXbpm. Assuming benign findings with today's laborato ry testing, medicall y cleared for surgery as schedule d. Problem Code: Z01.818; Problem Code Type: ICD-10; Not Available [facility] 3 04:30:56 Bradycar nancy 29388935 Completed 201908/28/2023 Problem Code: R00.1; Problem Code Type: ICD-10; Not Available [facility] 4 05:37:22 Gastroes ophageal reflux disease without esophagi tis 917687786 Active 201912/04/19 23 - Comments only - Sonido Ravi PA-C - - RODGERS' S ESOPHAGU S Follow[place] [facility] [place] . To continue on PROTONIX 40mg BID as RXd by specialt y service provider . Next EGD due 2023- 6. Problem Code: K21.9; Problem Code Type: ICD-10; Not Available [facility] 3 04:30:56 Pain in left lower limb 338626177 Active 201910/30/20 22 - Comments only - Sonido Ravi PA-C - Suspect recurren ce of previous ly document ed meralgia paresthe angie. Previous ly failed neuromod ulator therapie s (LYRICA, NEURONTI N). Patient expresse s intentio n to resume regimen walking activity as first line. Will consider for formal PT refer, +/- return to pain clinic for re-evalu ation for injectio n, if sxs prove ongoing. Problem Code: M79.605; Problem Code Type: ICD-10; Not Available [facility] 3 04:30:56 Non-scar ring alopecia 696272260 Completed 202008/28/2023 Problem Code: L65.9; Problem Code Type: ICD-10; Not Available [facility] 4 05:37:21 Pain in right hand 03267072340 9109 Completed 202008/28/2023 Problem Code: M79.641; Problem Code Type: ICD-10; Not Available [facility] 4 05:37:21 Pain of toe of left foot 10710331776 9108 Completed 202105/21/2022 05/18/20 22 - Comments only - Sonido Ravi PA-C - Given isolated area of discomfo rt, less likely reflecti ve of centrali zed neuropat hic process. Likewise , given intermit tent nature, and lack of direct trauma, low suspicio n for bony disrupti on. Patient expresse s intentio n to obtain new footwear for walking, in hopes that improved support will alleviat e sxs. F/U PRN Problem Code: M79.675; Problem Code Type: ICD-10; Not Available [facility] 3 04:30:57 COVID-19 404065137 Active 2021 Problem Code: U07.1; Problem Code Type: ICD-10; Not Available [facility] 3 04:30:57 Screenin g mammogra phy Active 2022 Problem Code: Z12.31; Problem Code Type: ICD-10; Not Available [facility] 3 04:30:57 Steatosi s of liver 325832285 Active 202212/04/19 23 - Comments only - Sonido Ravi PA-C - CMP and CBC collecte d today as monitori ng. Problem Code: K76.0; Problem Code Type: ICD-10; Not Available [facility] 3 04:30:57 Screenin g for malignan t neoplasm of colon Active 2022 Problem Code: Z12.11; Problem Code Type: ICD-10; Not Available [facility] 3 04:30:58 Neck pain 99637652 Active 2022 Problem Code: M54.2; Problem Code Type: ICD-10; Not Available [facility] 3 04:30:58 Major depressi on, single episode 99984646 Active 200904/26/20 21 - Comments only - Sonido Ravi PA-C - Stable on CELEXA 30mg QD +/- TRAZODON E PRN for sleep Problem Code: F32.9; Problem Code Type: ICD-10; Not Available [facility] 3 04:30:58 Screenin g for cardiova scular system disease Completed 201408/19/2017 Problem Code: Z13.6; Problem Code Type: ICD-10; Not Available [facility] 3 04:30:58 Chronic maxillar y sinusiti s 76703174 Completed 201710/15/2018 Problem Code: J32.0; Problem Code Type: ICD-10; Not Available [facility] 3 04:30:58 Tubal ligation done 45074262015 108 Completed 201108/01/2023 Not Available [facility] 3 04:30:58 Shoulder joint pain 448920325 Completed 201408/01/2023 07/26/20 15 - Comments only - Sonido Ravi PA-C - Patient to f[place]u [place] [facility] [place] for evaluati on as schedule d. Problem Code: 719.41; Problem Code Type: ICD-9; Not Available [facility] 3 04:30:59 Elevated blood-pr essure reading without diagnosi s of hyperten danny 060819411 Completed 201608/19/2017 Problem Code: R03.0; Problem Code Type: ICD-10; Not Available [facility] 3 04:30:59 Dysphagi a 92351517 Completed 201409/24/2016 Problem Code: R13.10; Problem Code Type: ICD-10; Not Available [facility] 3 04:30:59 Chronic rhinitis 49910677 Completed 201504/21/2016 Problem Code: J31.0; Problem Code Type: ICD-10; Not Available [facility] 3 04:30:59 Pelvic and perineal pain 547893419 Completed 201907/20/2020 Problem Code: R10.2; Problem Code Type: ICD-10; Not Available [facility] 3 04:30:59 Abdomina l pain 53030056 Completed 201404/21/2016 Problem Code: R10.9; Problem Code Type: ICD-10; Not Available [facility] 3 04:31:00 Acute pharyngi tis 650613321 Completed 201812/15/2019 Problem Code: J02.9; Problem Code Type: ICD-10; Not Available [facility] 3 04:31:00 Urinary tract infectio us disease 93311767 Completed 201708/01/2023 Problem Code: N39.0; Problem Code Type: ICD-10; Not Available [facility] 3 04:31:00 Pain in right lower limb 656419808 Completed 201608/19/2017 Problem Code: M79.604; Problem Code Type: ICD-10; Not Available [facility] 3 04:31:00 Acute upper respirat ory infectio n 55192147 Completed 201508/19/2017 Problem Code: J06.9; Problem Code Type: ICD-10; Not Available [facility] 3 04:31:00 Increase d frequenc y of urinatio n 185649960 Completed 201907/20/2020 Problem Code: R35.0; Problem Code Type: ICD-10; Not Available [facility] 3 04:31:01 Migraine 84324190 Completed 201608/01/2023 Problem Code: G43.909; Problem Code Type: ICD-10; Not Available [facility] 3 04:31:01 Arthralg ia of the ankle and/or foot 342695968 Completed 201610/15/2018 Problem Code: M25.572; Problem Code Type: ICD-10; Not Available [facility] 3 04:31:01 Depressi ve disorder 39243357 Completed 200908/01/2023 Not Available [facility] 3 04:31:01 Human papillom avirus negative squamous cell carcinom a Completed 201108/01/2023 Not Available [facility] 3 04:31:01 Fever 896033248 Completed 201509/24/2016 Problem Code: R50.9; Problem Code Type: ICD-10; Not Available [facility] 3 04:31:02 Fatigue 39299069 Completed 201509/24/2016 Problem Code: R53.83; Problem Code Type: ICD-10; Not Available [facility] 3 04:31:02 Dysuria 14066494 Completed 201710/15/2018 Problem Code: R30.0; Problem Code Type: ICD-10; Not Available [facility] 3 04:31:02 Posttrau matic stress disorder 98818529 Completed 201008/01/2023 Not Available [facility] 3 04:31:02 Lumbosac ral radiculo craig 2720972 Completed 201408/01/2023 02/07/20 16 - Comments only - Sonido Ravi PA-C - Given lack of improvem ent with historic ally tried PT guided rehab, will initiate refer [place] [facility] for consider ation towards interven tional treatmen ts. In the interim, to increase NEURONTI N to 100mg QAM and 600mg QHS. Problem Code: M54.16; Problem Code Type: ICD-10; Not Available [facility] 3 04:31:03 Plantar fascial fibromat osis 64902549 Completed 201511/07/2016 Problem Code: M72.2; Problem Code Type: ICD-10; Not Available [facility] 3 04:31:03 Screenin g for malignan t neoplasm of cervix Completed 201107/20/2020 Problem Code: Z12.4; Problem Code Type: ICD-10; Not Available [facility] 3 04:31:03 Burn 382235285 Completed 201511/10/2016 Problem Code: T30.0; Problem Code Type: ICD-10; Not Available [facility] 3 04:31:04 Pain in right foot 44903100104 9107 Active [address], [place], [address] , [facility]. 3 13:59:23 Contact dermatit is 54183164 Completed 202208/28/2023 Problem Code: L25.9; Problem Code Type: ICD-10; Not Available [facility] 4 05:37:22 Pain in left lower limb 917953307 Completed 201408/28/2023 Problem Code: M79.605; Problem Code Type: ICD-10; Not Available [facility] 05:37:23 Pruritic rash 94461542 Active 2023 GEMA WAN PA-C [address], [place], [address] , [facility] 11:12:18 Notes:*Problem Name: + Lyme Titer *ICD-10 Codes: *Problem Status: inactive *Comments: *Note Date: 09/02/2013 *Problem Name: Ptsd--reactivation *ICD-10 Codes: *Problem Status: inactive *Comments: *Note Date: 02/11/2012 Problem Notes None recorded. Procedures Surgical History Date Name Laterality Status Provider Name and Address Organization Details Recorded Time 024 Barbi-en-Y gastrojejunostomy completed SONIDO RAVI PA-C [address], [place], [address], [facility] 06/09/2024 05:45:19 023 Date of Last Colonoscopy completed ASHUTOSH HAWTHORNE [facility] 12/03/2023 09:00:45 023 Most Recent Mammogram completed ASHUTOSH HAWTHORNE [facility] 12/03/2023 09:00:06 023 Date of Last Mammogram completed ASHUTOSH HAWTHORNE MA [facility] 12/03/2023 09:00:12 023 Date of Last Pap Smear completed ASHUTOSH HAWTHORNE MA [facility] 12/03/2023 08:59:13 Imaging Results Imaging Date Name Status LastModified by [facility] Details LastModified Time 03/24/2024 MAMMO, screening, bilateral completed [email or web address] [facility] [address], [place], [address], 04/04/2024 08:34:55 07/20/2020 imaging/diagnos tic result completed Information not available 07/21/2024 02:49:18 03/23/2023 MAMMO, diagnostic completed Information not available 07/21/2024 02:51:54 01/27/2021 MAMMO, screening completed Information not available 07/21/2024 02:51:57 03/23/2023 MAMMO, screening completed Information not available 07/21/2024 02:51:58 04/16/2020 XR, hand completed Information no t available 07/21/2024 02:52:07 11/17/2021 XR, hand completed Information no t available 07/21/2024 02:52:08 07/14/2019 imaging/diagnos tic result completed Information not available 07/21/2024 02:52:11 03/26/2023 imaging/diagnos tic result completed Information not available 07/21/2024 02:52:12 09/21/2023 imaging/diagnos tic result completed Information not available 07/21/2024 02:52:14 07/14/2020 imaging/diagnos tic result completed Information not available 07/21/2024 02:52:15 Procedure Notes None recorded. Medical Equipment None Reported. Allergies Allergen ID Allergen Name Allergen Category Reaction Reaction Severity Criticality Documentation Date Start Date Code Code System Note Provider Name and Address Organization Details Recorded Time 88248 Poison Indu medicatio n Not available Not available Not available 09/14/20232016 Aller gyNam e: 'POIS ON IDNU'; Not Available [facility] 3 16:22:08 48006 oxycodone hydrochlo ride medicatio n vomiting Not available [facility] 09/14/20232011 32712 RxNorm EZEKIEL SALAS- ANA, [employer]-BC [address], [place], [address], [facility]. 4 15:53:22 85531 diclofena c medicatio n other moderate Not available 09/14/20232019 3355 RxNorm GI UPSET Aller gyRea ction : 'GI UPSET '; Not Available [facility] 3 16:22:09 43550 ketchup food Not available Not available Not available 03/13/2024 Huber de oliveira MA [facility], [facility] 4 10:15:08 87782 ibuprofen medicatio n Not available Not available Not available 03/13/2024 5640 RxNorm avoid s due [place] tt's esoph afsaneh EZEKIEL SANCHES [facility] [address], [place], [address] , [facility] 4 15:53:05 25245 fish derived food,medi cation other Not available Not available 10/16/2024 conac t with skin cause s ga ; does not eat ANIA ARANDARAJINDER [address], [place], [address] , [facility] 4 15:55:04 Medications Name Sig Start Date Stop Date Status Note LastModified by Organization Details LastModified Time metformin 500 mg tablet 500mg-4 PO QD 12/04 completed [facility] [place] Available Not Available Not Available nystatin 100,000 unit/mL oral suspension Swish and swallow 5ml QID. Try to swish for 2 minutes before swallowin g. 02/03 completed Not Available Not Available Not Available prednisone 10 mg tablet 6 po qd x 3d, 4 po qd x 3d, 2 po qd x 3d, 1 po qd x 3d, THEN STOP 09/22 completed Not Available Not Available Not Available Celexa 10 mg tablet Take 1 tablet by mouth once a day 10/21 completed Not Available Not Available Not Available trazodone 50 mg tablet Take 1-2 tablet by mouth every night as needed 08/28 completed Not Available Not Available Not Available Phenergan 12.5 mg tablet 1 TAB every six hours 07/23 completed Not Available Not Available Not Available azithromyci n 250 mg tablet Take 2 by mouth now, then take 1 by mouth daily x 4 days 03/09 completed Not Available Not Available Not Available ibuprofen 800 mg tablet Take 1 tab by mouth three times daily as needed 06/14 completed Not Available Not Available Not Available prednisone 20 mg tablet Take 1 tablet by mouth Take 40 mg daily x 4 days, 20 mg daily for 4 days then 10 mg daily x 4 days then stop. 08/28 completed Not Available Not Available Not Available clonazepam 0.5 mg tablet 1TAB hs 09/19 completed Not Available Not Available Not Available Prilosec 40 mg capsule,del ayed release 1 CAP QD 08/10 completed Not Available Not Available Not Available sertraline 100 mg tablet 1 qd 03/04 completed Not Available Not Available Not Available Pyridium 200 mg tablet Take 1 tab by mouth three times daily as needed x 2 days 06/29 completed Not Available Not Available Not Available Diflucan 150 mg tablet Take 1 tab by mouth for yeast symptoms; repeat x 1 if still symptomat ic after 3 days 2023 active Not Available Not Available Not Avai lable Ultram 50 mg tablet 1-2 TABS BY MOUTH EVERY 6HRS NEEDED FOR PAIN 08/17 completed Not Available Not Available Not Available Motrin 600 mg tablet 1 TAB TID 12/12 completed Not Available Not Available Not Available hydroxyzine HCl 50 mg tablet TAKE ONE TABLET BY MOUTH THREE TIMES DAILY NEEDED for itching 12/04 completed Not Available Not Available Not Available Naprosyn 375 mg tablet 1 TAB twice daily 03/23 completed Not Available Not Available Not Available triamcinolo ne acetonide 0.1 % topical cream Apply 1 a small amount to affected area twice a day For no longer than 10 days 08/12 completed Not Available Not Available Not Available acyclovir 800 mg tablet take 1 tablet five times a day 03/23 completed Not Available Not Available Not Available Macrobid 100 mg capsule Take 1 capsule every 12 hours by oral route for 5 days. 2023 active Not Available Not Available Not Avai lable Imitrex 50 mg tablet Take 1 tab as needed for headache. May be repeated in 2 hours if headache not improved or recurs. Max dose is 200mg daily 12/17 completed Not Available Not Available Not Available Guaiatussin AC 10 mg-100 mg/5 mL oral liquid Take 1-2 tsp by mouth every six hours as needed for cough 05/24 completed Not Available Not Available Not Available trazodone 100 mg tablet 1 qhs 03/04 completed Not Available Not Available Not Available Celexa 20 mg tablet Take 1 tablet by mouth once a day 09/21 completed Not Available Not Available Not Available meclizine 25 mg tablet Take 1 tablet by mouth every six hours as needed 12/04 completed Not Available Not Available Not Available doxycycline monohydrate 100 mg capsule Take 1 tab by mouth twice daily. 07/12 completed Not Available Not Available Not Available pantoprazol e 40 mg tablet,raymundo yed release Take 1 tablet by mouth 2 times daily. (30 minutes before meals) active Not Available Not Available No t Available erythromyci n 5 mg/gram (0.5 %) eye ointment Apply 1 a thin layer into affected eye four times a day 04/26 completed Not Available Not Available Not Available oxybutynin chloride ER 5 mg tablet,exte nded release 24 hr Take 1 tab by mouth daily in the AM. If not helping enough within a week then can increase to 2 in the AM 07/20 completed Not Available Not Available Not Available gabapentin 300 mg capsule take 1 tablet TID for shingles pain 06/14 completed Not Available Not Available Not Available hydrocortis one 2.5 % topical cream APPLY A THIN LAYER topically TO THE AFFECTED AREA(S) twice daily active Not Available Not Available No t Available gabapentin 100 mg capsule 1 TAB BY MOUTH IN AM 03/24 completed Not Available Not Available Not Available metformin ER 500 mg tablet,exte nded release 24 hr take 4 tablets by mouth daily with dinner 06/09 completed Not Available Not Available Not Available metronidazo le 0.75 % topical gel Apply 1 gram to face twice a day sparingly active Not Available Not Available No t Available doxycycline hyclate 100 mg tablet 1 TAB twice daily 12/09 completed Not Available Not Available Not Available amoxicillin 875 mg-potassiu m clavulanate 125 mg tablet TAKE 1 TABLET BY MOUTH TWICE DAILY FOR 7 DAYS TAKE WITH MEAL 12/04 completed Not Available Not Available Not Available Ventolin HFA 90 mcg/actuati on aerosol inhaler Inhale 2 puff as directed every four to six hours as needed 2020 active Not Available Not Available Not Avai lable Bactrim DS 800 mg-160 mg tablet Take 1 tab by mouth twice daily 07/04 completed Not Available Not Available Not Available cyclobenzap rine 5 mg tablet Take 1 tablet by mouth every night as needed. active Not Available Not Available No t Available Compression Stockings Dx: LE EDEMA KNEE HIGH MEDIUM TENSION 10/17 completed Not Available Not Available Not Available Gaviscon 95 mg-358 mg/15 mL oral suspension TAKE 15ML BEFORE MEALS AND HS PRN 01/21 completed [facility] [place] Available Not Available Not Available metronidazo le 1 % topical gel APPLY TO FACE SPARINGLY TWICE DAILY 12/17 completed Not Available Not Available Not Available Lyrica 50 mg capsule Take 1 cap by mouth at bedtime 10/18 completed Not Available Not Available Not Available lidocaine 5 % topical ointment apply to affected area TID daily 01/21 completed Not Available Not Available Not Available Myrbetriq 25 mg tablet,exte nded release Take 1 tab by mouth daily 10/18 completed Not Available Not Available Not Available Lomaira 8 mg tablet Take 1 tablet by mouth 2 times daily. 06/09 completed Not Available Not Available Not Available Vitals Date Recorded Body height Oxygen saturation Oxygen saturation in Arterial blood by Pulse oximetry Heart rate Body mass index (BMI) Body weight Systolic blood pressure Diastolic blood pressure Provider Name and Address Organization Details Last Updated DateTime 4 159.39 cm 97 % 97 % 84 /min 44.5 kg/m2 617236. 5 g 140 mm[Hg] 88 mm[Hg] ASHUTOSH HAWTHORNE MA [facility] 4 12:56:55 Date Recorded Body height Body mass index (BMI) Body weight Body temperature Oxygen saturation Oxygen saturation in Arterial blood by Pulse oximetry Heart rate Respiratory rate Systolic blood pressure Diastolic blood pressure Provider Name and Address Organization Details Last Updated DateTime 4 159.39 cm 42.9 kg/m2 161032. 17 g 98.1 [degF] 97 % 97 % 77 /min 18 /min 142 mm[Hg] 81 mm[Hg] Huber de oliveira MA [facility] 4 10:17:59 Date Recorded Body height Body mass index (BMI) Body weight Oxygen saturation Oxygen saturation in Arterial blood by Pulse oximetry Heart rate Systolic blood pressure Diastolic blood pressure Provider Name and Address Organization Details Last Updated DateTime 4 159.39 cm 41.1 kg/m2 329465. 68 g 96 % 96 % 75 /min 130 mm[Hg] 80 mm[Hg] Koko Horton MA [facility] 4 11:46:43 Social History Question Answer Notes LastModified by Organizat ion Details LastModified Time Tobacco Smoking Status Never Smoker Tammy Corbett [facility], [facility] 09/21/2023 12:51:10 What Is Your Level Of Alcohol Consumption? None [email or web address] Information not available 09/21/2023 Would You Say That, In General, Your Health Is Very Good Information not available 12/04/2023 Women Aged 18-50 - Would You Like To Become In The Next Year? (Female Patients Only) No Information not available 12/04/2023 How Often Does Anyone, Including Family, Physically Hurt You? Never Information not available 12/04/2023 How Often Does Anyone, Including Family, Insult Or Talk Down To You? Never Information no t available 12/04/2023 How Often Does Anyone, Including Family, Threaten You With Harm? Never Information not available 12/04/2023 How Often Does Anyone, Including Family, Scream Or Curse At You? Never Information not available 12/04/2023 Within The Past 12 Months, You Worried That Your Food Would Run Out Before You Got Money To Buy More. Never True Information n ot available 12/04/2023 Within The Past 12 Months, The Food You Bought Just Didn't Last And You Didn't Have Money To Get More. Never True Information not available 12/04/2023 How Hard Is It For You To Pay For The Very Basics Like Food, Housing, Medical Care, And Heating? Would You Say It Is: Not Hard At All Information not available 12/04/2023 In The Past 12 Months, Has Lack Of Reliable Transportation Kept You From Medical Appointments, Meetings, Work Or From Getting Things Needed For Daily Living? No Information not available 12/04/2023 What Is Your Housing Situation Today? I Have Housing. Information not available 12/04/2023 How Often In The Past Year Have You Used Marijuana (including Smoking, Vaping, Dabbing, Or Edibles)? Never Information not available 12/04/2023 How Often In The Past Year Have You Used Prescription Medications That Were Not Prescribed To You? Never Information not available 12/04/2023 How Often In The Past Year Have You Taken Your Own Prescription Medication More Than The Way It Was Prescribed Or For Different Reasons Than Its Intended Purpose? Never Information not available 12/04/2023 How Often In The Past Year Have You Used Other Drugs (for Example, Heroin, Cocaine, Meth, Salvia, Inhalants)? Never Information not available 12/04/2023 Have You Ever Used IV Drugs? No Information not available 12/04/2023 Date Of Most Recent SBINS 12/04/2023 Information not available 12/04/2023 What Was The Date Of Your Most Recent Tobacco Screening? 12/04/2023 Information n ot available 12/04/2023 Do You Use Any Illicit Or Recreational Drugs? No [email or web address] Information not available 09/21/2023 Has Tobacco Cessation Counseling Been Provided? No Information not available 12/04/2023 Do You Or Have You Ever Used Any Other Forms Of Tobacco Or Nicotine? No Information not available 12/04/2023 Sex: Female Functional Status None recorded. Mental Status None recorded. Family History Relationship Description Onset Age of this Age Resolved Age Notes LastModified by Organization Details LastModified Time Mother Family history of premature coronary heart disease Not available 2022 03:54:38 Mother Family history of Hypertension Not available 08/2023 03:54:38 Mother Family history of cancer of colon Not available 2022 03:54:39 Mother Family history of diabetes mellitus type 1 Not available 2022 03:54:39 Unspecified Relation Family history of premature coronary heart disease Relati ve: 'Uncle '; Not available 09/14/2023 03:54:38 Unspecified Relation Family history of breast cancer 1 gene mutation Relati ve: 'Cousi n (femal e)'; Not available 09/14/2023 03:54:39 Sister Family history of Hypercholest erolemia Not available 2022 03:54:38 Sister Family history of Hypertension Not available 08/2023 03:54:39 Sister Family history of alcoholism Not available 09/14 03:54:39 Sister Family history of psychotic illness BIPOLA R Not available 09/14/2023 03:54:39 Sister Family history of diabetes mellitus type 1 Not available 2022 03:54:39 Father Family history of alcoholism Not available 09/14 03:54:39 Father Family history of cardiovascul ar disease in first degree male relative less than 55 years of age FATAL OH @ 36Y/O Not available 09/14/2023 03:54:39 Maternal Grandfather Family history of diabetes mellitus type 1 Not available 2022 03:54:39 Notes:*Problem: 1/2 SISTERS x 2: Unknown 1/2 BROTHER x 1: Unknown SONS x 3 - DM1 x 1 Medical History No medical history recorded. Gynecological History Statement/Question Response Abnormal Pap N Date of Last Pap Smear 12/01/2022 Date of Last Colonoscopy 06/01/2023 Date of Last Mammogram 03/23/2023 Most Recent Mammogram 03/23/2023 Obstetrics History GPAL:G 0 P 0 0 0 0 Immunizations Vaccine Type Date Status Note Provider Nam e and Address Organization Details Recorded Time MMR 6 completed Not Available [facility] 09/14/2023 05:02:42 MMR 6 completed Not Available [facility] 09/14/2023 05:02:42 Td (adult), 5 Lf tetanus toxoid, preservative free, adsorbed 6 completed Not Available [facility] 09/14/2023 05:02:42 Tdap 8 completed Not Available [facility] 09/14/2023 05:02:43 Influenza, split virus, trivalent, preservative 5 completed Not Available [facility] 09/14/2023 05:02:43 Influenza, split virus, trivalent, preservative 6 completed Not Available [facility] 09/14/2023 05:02:43 Influenza, split virus, quadrivalent, PF 0 completed Not Available [facility] 09/14/2023 05:02:43 Influenza, split virus, quadrivalent, PF 1 completed Not Available [facility] 09/14/2023 05:02:43 Influenza, split virus, quadrivalent, PF 9 completed Not Available [facility] 09/14/2023 05:02:44 Influenza, split virus, quadrivalent, preservative 7 completed Not Available [facility] 09/14/2023 05:02:44 Influenza, split virus, quadrivalent, preservative 8 completed Not Available [facility] 09/14/2023 05:02:44 COVID-19, mRNA, LNP-S, PF, 100 mcg/0.5mL dose or 50 mcg/0.25mL dose 1 completed Not Available [facility] 09/14/2023 05:02:44 COVID-19, mRNA, LNP-S, PF, 100 mcg/0.5mL dose or 50 mcg/0.25mL dose 1 completed Not Available [facility] 09/14/2023 05:02:44 COVID-19, mRNA, LNP-S, PF, 100 mcg/0.5mL dose or 50 mcg/0.25mL dose 1 completed Not Available [facility] 09/14/2023 05:02:44 Pneumococcal conjugate PCV20, polysaccharide [id number] conjugate, adjuvant, PF 3 completed Not Available [facility] 09/14/2023 05:02:45 COVID-19, mRNA, LNP-S, bivalent, PF, 30 mcg/0.3 mL dose 3 completed Not Available [facility] 09/14/2023 05:02:45 Hep B, adult 7 completed Not Available [facility] 09/14/2023 05:02:45 Hep B, unspecified formulation 6 completed Not Available [facility] 09/14/2023 05:02:45 Hep B, unspecified formulation 6 completed Not Available [facility] 09/14/2023 05:02:46 influenza, unspecified formulation 3 completed Not Available [facility] 09/14/2023 05:02:46 COVID-19, mRNA, LNP-S, PF, jae-sucrose, 30 mcg/0.3 mL 4 completed Lea bowers [facility] 08/21/2024 15:47:44 Influenza, split virus, trivalent, PF 4 completed Lea bowers [facility] 08/21/2024 15:47:44 COVID-19, mRNA, LNP-S, PF, jae-sucrose, 30 mcg/0.3 mL 3 completed Not Available [facility] 11/16/2023 05:33:21 Past Encounters Encounter ID Performer Location Encounter Start Date Encounter Closed Date Diagnosis/Indication Diagnosis SNOMED-CT Code Diagnosis ICD10 Code [id number] GEMA WAN PA-C [address] [address] 09/21/2023 11:20:23 09/21/2023 14:02:44 Pain in right foot 4388317549 54974 M79.077 [id number] ASHUTOSH HAWTHORNE MA [address] [address] 12/04/2023 12:44:03 12/04/2023 13:59:41 Screening mammography 23110858 Z12.31 Adult heal th examination 661067107 Z00.00 Rodgers's esophagus 3029 43781 K22.70 Obesity 300949367 E66.9 Steatosis of liver 1007 K76.0 Anxiety disorder 2628227 06 F43.12 [id number] GEMA WAN PA-C [address] [address] 03/13/2024 09:37:46 03/13/2024 11:15:39 Pruritic rash 52935116 L28.2 [id number] SONIDO RAVI PA-C [address] [address] 06/09/2024 11:38:05 06/09/2024 12:19:20 Anxiety disorder 721327279 F43.12 Gastroesop hageal reflux disease without esophagitis 275367571 K21.9 K22.70 Obesity 269323326 E66.9 Trigger th umb of left hand 0780184126 25910 M65.214 [id number] Leaswapnil Foley [address] [address] 08/21/2024 15:28:41 08/21/2024 15:53:15 Active or passive immunization 476310427 Z23 [id number] Payal Corbett [address] [address] 10/16/2024 15:19:15 10/16/2024 16:21:22 Postmenopausal bleeding 64525198 N95.0 Urinary tr act infectious disease 88161804 N39.0 Health Concerns Section Related Observation LastModified by Organization Detai ls LastModified Time None Recorded Concern Status LastModified by Organization Details LastModified Time None Recorded Advance Directives Directive None Recorded Payers Encounter Date Sequence Insurance Name Policy Number Policy Walsh Covered Member ID Walsh Member ID Guarantor Name 12/04/2023 1 [facility] (MEDICAID) Vianney Cavanaughpowell [id number] Vianney Cavanaughpowell 03/13/2024 1 [facility] (MEDICAID) Vianney Cavanaughpowell [id number] Vianney Cavanaughpowell 06/09/2024 1 [facility] (MEDICAID) Vianney Chao Cookpowell [id number] Vianney Cavanaughpowell 08/21/2024 1 [facility] (MEDICAID) Vianney Cavanaughpowell [id number] Vianney Cavanaughpowell Notes Date Note Type Note Provider Name and Address Organization Details Recorded Time 12/04/2023 text/html 48y/o female presenting for annual health maintenance exam. ANGEL MARSH, [facility]. 12/04/2023 14:02:26 03/13/2024 text/html Vianney is a 48-year-old female who presents with red itchy spots that have been intermittently present on her bilateral arms and now forehead. She initially thought it was after starting use of a new yogurt in January given her underlying lactose intolerance. She stopped using this and felt like things had improved but they have now returned and she has not otherwise determined any new lotions, pet, environmental or medications. She did have a new laundry soap prior to November but that has not caused a problem. Yesterday for the first time she applied a topical Benadryl cream to the area on the forehead which did help with itch. She reports that she woke up last night felt almost like she was bitten by something and then the forehead became red and itchy. She lives with others and nobody else in the home has similar symptoms. They have pets in the home who are treated for flea and tick. [address], [place], [address], [facility]. 03/13/2024 11:45:26 06/09/2024 text/html 48y/o female presenting for 6m f/u obesity, FLD, anxiety, and Rodgers's esophagus. Underwent laparoscopic Addie fundoplication takedown, partial gastric resection, cruroplasty, and barbi en y gastric bypass on 05/29/24. D/C to home the following day. On presentation today, Vianney reports she is recovering well. Continues on liquid only diet; anticipates to transition to purees later this week. Last PM experienced some abdominal discomfort and bloating, which was ultimately relieved by dosing with MIRALAX and passing of gas. No nausea or vomiting. Afebrile. SONIDO RAVI PA-C [address], [place], [address], [facility]. 06/09/2024 12:40:17 OBGyn Episode No OBEpisode recorded.
--- OUTSIDE RECORDS SUMMARY | 2024-10-16 17:35 | XMS_ITS | Continuity of Care Document ---
Author Organization [facility] Address [address] [place] [address] Assessment No assessment recorded. Plan of Treatment Reminders Order Date Submit Date Provider Last Modified By Organization Details Last Modified Time Details Appointments Acute 30 2023 03:30P M Ezekiel Sanches Not available Not available Not available Follow Up 30 2024 11:00A M GEURO RAVI Not available Not available Not available Lab None recorded . Referral None recorded . Procedures None recorded . Surgeries None recorded . Imaging None recorded . Medication Orders None recorded . Patient TargetsNo targets recorded. Patient InstructionsNo instructions recorded. Reason for Referral None Reported. Problems Name Problem SNOMED Code Status Onset Date Resolution Date Notes Provider Name and Address Organization Details Recorded Time Postmeno pausal bleeding 50431609 Active 2023 EZEKIEL ARCHER REW, TUNNEL KILN REPAIRER-BC [address], [place], [address] , [facility] 4 16:04:27 Obesity 628236438 Active 201010/28/20 21 - Comments only - Guero Ravi PA-C - BMI 40. Working with [facility] [employer]. Marry upton testing collecte d today. Problem Code: E66.9; Problem Code Type: ICD-10; Not Available [facility] 3 04:30:53 Posttrau matic stress disorder 47074738 Active 2011 Problem Code: F43.10; Problem Code Type: ICD-10; Not Available [facility] 3 04:30:53 History of infectio us disease 488187890 Active 2012 Problem Code: Z86.19; Problem Code Type: ICD-10; Not Available [facility] 3 04:30:53 Pain of left shoulder joint [id number] 891901 Completed 201408/28/2023 Problem Code: M25.512; Problem Code Type: ICD-10; Not Available [facility] 4 05:37:23 Insomnia 506828392 Active 201507/12/20 16 - Comments only - Guero Ravi PA-C - Supporti ve listenin g provided today. Will arrange for patient to schedule with [facility] for behavior al health supports to address acute stress associat ed with upcoming legal proceedi ngs. Otherwis e to continue on TRAZODON E 50-100mg QHS PRN for sleep. Problem Code: G47.00; Problem Code Type: ICD-10; Not Available [facility] 3 04:30:53 Rodgers' s esophagu s 688950222 Active 201510/28/20 21 - Comments only - Guero Ravi PA-C - Followed by [facility] gastroen terology . To continue on PROTONIX 40mg BID as RXd by specialt y service provider . Next EGD due 2023-. Problem Code: K22.70; Problem Code Type: ICD-10; Not Available [facility] 3 04:30:53 Diarrhea 43719979 Completed 201508/06/2016 07/31/20 16 - Comments only - Guero Ravi PA-C - Suspect sxs reflecti ve of self-perez iting viral gastroen teritis. In any event, patient without signs to suggest for ongoing infectio us risk. Letter drafted to employer to this effect. Problem Code: R19.7; Problem Code Type: ICD-10; Not Available [facility] 3 04:30:53 Anxiety disorder 097872795 Active 201512/04/19 23 - Comments only - Guero Ravi PA-C - - ANXIETY, PTSD Mood stable on CELEXA 20mg QD and TRAZODON E 50mg QHS PRN. Problem Code: F41.9; Problem Code Type: ICD-10; Not Available [facility] 3 04:30:53 Tension- type headache 094281576 Active 201612/17/19 19 - Comments only - Guero Ravi PA-C - Will refer to Nito Wells for PT/chiro practic treatmen t interven tions Problem Code: G44.209; Problem Code Type: ICD-10; Not Available [facility] 3 04:30:54 General examinat ion of patient Active 201612/04/19 23 - Comments only - Guero Ravi PA-C - PAP collecte d today. Bivalen COVID booster and PCV 20 administ ered today. Mammogra m to be schedule d at [facility] at next availabl e. 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 Problem Code: R60.0; Problem Code Type: ICD-10; Not Available [facility] 3 04:30:54 Rosacea 379075186 Active 201608/19/20 17 - Comments only - Guero Ravi PA-C - To begin RXD METROGEL 1% BID Problem Code: L71.9; Problem Code Type: ICD-10; Not Available [facility] 3 04:30:54 Acute upper respirat ory infectio n 48449979 Completed 201711/30/2017 11/16/19 18 - Comments only - Guero Ravi PA-C - Patient reassure d no signs on today's PX to suggest for bacteria l process that would necessit ate ABX dosing. Will use RXd PREDNISO NE 40mg QD x 4d as burst to relief upper airway reactivi ty. Would expect for progress tiffany improvem ent over the course of this upcoming weekend. Problem Code: J06.9; Problem Code Type: ICD-10; Not Available [facility] 3 04:30:54 Acute sinusiti s 60720743 Completed 201712/18/2017 12/04/19 18 - Comments only - Guero Ravi PA-C - Will treat with RXd AUGMENTI N 875-125m g BID x 7d. F/U PRN. Problem Code: J01.90; Problem Code Type: ICD-10; Not Available [facility] 3 04:30:54 Housing problems Completed 201712/18/2017 12/04/19 18 - Comments only - Guero Ravi PA-C - Supporti ve listenin g provided today. Patient stongly encourag ed to iyla prince with outside counseli ng provider ([facility] services not covered by current insuranc e provider ) for behavior al health supports . Therapy pet note provided as per patient request. Not Available [facility] 3 04:30:54 Diarrhea 63513085 Completed 201702/20/2018 02/07/20 18 - Comments only - Guero Ravi PA-C - Given chronici ty of sxs, will refer to [facility] gastroen terology for consider ation for colonosc opy and further treatmen t interven tions (suspect IBS). 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 219361131 Active 2018 Problem Code: B96.81; Problem Code Type: ICD-10; Not Available [facility] 3 04:30:55 Plantar fascial fibromat osis 68420904 Completed 201812/31/2018 12/17/19 19 - Comments only - Guero Ravi PA-C - As per patient request, will refer to [facility] podiatry for consider ation towards more CORTISON E injectio n Problem Code: M72.2; Problem Code Type: ICD-10; Not Available [facility] 3 04:30:55 Enthesop athy 86764475 Completed 201908/28/2023 Problem Code: M77.8; Problem Code Type: ICD-10; Not Available [facility] 4 05:37:22 Benign neoplasm of skin 54234247 Completed 201908/28/2023 Problem Code: D23.9; Problem Code Type: ICD-10; Not Available [facility] 4 05:37:22 Herpes zoster 3345701 Completed 201908/28/2023 Problem Code: B02.9; Problem Code Type: ICD-10; Not Available [facility] 4 05:37:23 Dog bite Completed 201905/04/2020 04/20/20 20 - Comments only - Guero Ravi PA-C - Wound appears to be healing well. Excused from work duties through 04/22/20. To continue on AUGMENTI N as RXD by ARACELY Lau/[place] PRN. Not Available [facility] 3 04:30:56 Foot pain 55392682 Completed 201906/28/2020 06/14/20 20 - Comments only - Guero Ravi PA-C - Suggeste d patient explore more supporti ve footwear and/or blister proof socks if she intends to continue with walking activiti es. Will refer to podiatry to assess for custom orthotic s. Problem Code: M79.673; Problem Code Type: ICD-10; Not Available [facility] 3 04:30:56 Peroneal tendinit is of right lower limb 54815161934 9109 Completed 201908/28/2023 Problem Code: M76.71; Problem Code Type: ICD-10; Not Available [facility] 4 05:37:24 Pre-surg he evaluati on Completed 201908/03/2020 07/20/20 20 - Comments only - Guero Ravi PA-C - In-offic e EKG shows NSR @ XXbpm. Assuming benign findings with today's laborato ry testing, medicall y cleared for surgery as schedule d. Problem Code: Z01.818; Problem Code Type: ICD-10; Not Available [facility] 3 04:30:56 Bradycar nancy 22684005 Completed 201908/28/2023 Problem Code: R00.1; Problem Code Type: ICD-10; Not Available [facility] 4 05:37:22 Gastroes ophageal reflux disease without esophagi tis 584048702 Active 201912/04/19 23 - Comments only - Guero Ravi PA-C - - RODGERS' S ESOPHAGU S Followed by [facility] gastroen terology . To continue on PROTONIX 40mg BID as RXd by specialt y service provider . Next EGD due 2023-. Problem Code: K21.9; Problem Code Type: ICD-10; Not Available [facility] 3 04:30:56 Pain in left lower limb 341367683 Active 201910/30/20 22 - Comments only - Guero Ravi PA-C - Suspect recurren ce of [...] M79.605; Problem Code Type: ICD-10; Not Available [facility] 3 04:30:56 Non-scar ring alopecia 013926712 Completed 202008/28/2023 Problem Code: L65.9; Problem Code Type: ICD-10; Not Available [facility] 4 05:37:21 Pain in right hand 11804981173 9109 Completed 202008/28/2023 Problem Code: M79.641; Problem Code Type: ICD-10; Not Available [facility] 4 05:37:21 Pain of toe of left foot 59841014651 9108 Completed 202105/21/2022 05/18/20 22 - Comments only - Guero Ravi PA-C - Given isolated area of [...] M79.675; Problem Code Type: ICD-10; Not Available [facility] 3 04:30:57 COVID-19 137161588 Active 2021 Problem Code: U07.1; Problem Code Type: ICD-10; Not Available [facility] 3 04:30:57 Screenin g mammogra phy Active 2022 Problem Code: Z12.31; Problem Code Type: ICD-10; Not Available [facility] 3 04:30:57 Steatosi s of liver 429210162 Active 202212/04/19 23 - Comments only - Guero Ravi PA-C - CMP and CBC collecte d today as monitori ng. Problem Code: K76.0; Problem Code Type: ICD-10; Not Available [facility] 3 04:30:57 Screenin g for malignan t neoplasm of colon Active 2022 Problem Code: Z12.11; Problem Code Type: ICD-10; Not Available [facility] 3 04:30:58 Neck pain 38475320 Active 2022 Problem Code: M54.2; Problem Code Type: ICD-10; Not Available [facility] 3 04:30:58 Major depressi on, single episode 93254957 Active 200904/26/20 21 - Comments only - Guero Ravi PA-C - Stable on CELEXA 30mg QD +/- TRAZODON E PRN for sleep Problem Code: F32.9; Problem Code Type: ICD-10; Not Available [facility] 3 04:30:58 Screenin g for cardiova scular system disease Completed 201408/19/2017 Problem Code: Z13.6; Problem Code Type: ICD-10; Not Available [facility] 3 04:30:58 Chronic maxillar y sinusiti s 27688874 Completed 201710/15/2018 Problem Code: J32.0; Problem Code Type: ICD-10; Not Available [facility] 3 04:30:58 Tubal ligation done 71747863387 108 Completed 201108/01/2023 Not Available [facility] 3 04:30:58 Shoulder joint pain 246883708 Completed 201408/01/2023 07/26/20 15 - Comments only - Guero Ravi PA-C - Patient to f/u with [facility] orthoped ics for evaluati on as schedule d. Problem Code: 719.41; Problem Code Type: ICD-9; Not Available [facility] 3 04:30:59 Elevated blood-pr essure reading without diagnosi s of hyperten khoi 018093347 Completed 201608/19/2017 Problem Code: R03.0; Problem Code Type: ICD-10; Not Available [facility] 3 04:30:59 Dysphagi a 34825829 Completed 201409/24/2016 Problem Code: R13.10; Problem Code Type: ICD-10; Not Available [facility] 3 04:30:59 Chronic rhinitis 31476196 Completed 201504/21/2016 Problem Code: J31.0; Problem Code Type: ICD-10; Not Available [facility] 3 04:30:59 Pelvic and perineal pain 024108460 Completed 201907/20/2020 Problem Code: R10.2; Problem Code Type: ICD-10; Not Available [facility] 3 04:30:59 Abdomina l pain 02326711 Completed 201404/21/2016 Problem Code: R10.9; Problem Code Type: ICD-10; Not Available [facility] 3 04:31:00 Acute pharyngi tis 433156720 Completed 201812/15/2019 Problem Code: J02.9; Problem Code Type: ICD-10; Not Available [facility] 3 04:31:00 Urinary tract infectio us disease 01478181 Completed 201708/01/2023 Problem Code: N39.0; Problem Code Type: ICD-10; Not Available [facility] 3 04:31:00 Pain in right lower limb 304174659 Completed 201608/19/2017 Problem Code: M79.604; Problem Code Type: ICD-10; Not Available [facility] 3 04:31:00 Acute upper respirat ory infectio n 39499552 Completed 201508/19/2017 Problem Code: J06.9; Problem Code Type: ICD-10; Not Available [facility] 3 04:31:00 Increase d frequenc y of urinatio n 058022301 Completed 201907/20/2020 Problem Code: R35.0; Problem Code Type: ICD-10; Not Available [facility] 3 04:31:01 Migraine 62874985 Completed 201608/01/2023 Problem Code: G43.909; Problem Code Type: ICD-10; Not Available [facility] 3 04:31:01 Arthralg ia of the ankle and/or foot 972700330 Completed 201610/15/2018 Problem Code: M25.572; Problem Code Type: ICD-10; Not Available [facility] 3 04:31:01 Depressi ve disorder 13382341 Completed 200908/01/2023 Not Available [facility] 3 04:31:01 Human papillom avirus negative squamous cell carcinom a Completed 201108/01/2023 Not Available [facility] 3 04:31:01 Fever 463857619 Completed 201509/24/2016 Problem Code: R50.9; Problem Code Type: ICD-10; Not Available [facility] 3 04:31:02 Fatigue 06128240 Completed 201509/24/2016 Problem Code: R53.83; Problem Code Type: ICD-10; Not Available [facility] 3 04:31:02 Dysuria 64036675 Completed 201710/15/2018 Problem Code: R30.0; Problem Code Type: ICD-10; Not Available [facility] 3 04:31:02 Posttrau matic stress disorder 33804826 Completed 201008/01/2023 Not Available [facility] 3 04:31:02 Lumbosac ral radiculo craig 0027717 Completed 201408/01/2023 02/07/20 16 - Comments only - Guero Ravi PA-C - Given lack of improvem ent with [facility] tried PT guided rehab, will initiate refer to [facility] for consider ation towards interven tional treatmen ts. In the interim, to increase NEURONTI N to 100mg QAM and 600mg QHS. Problem Code: M54.16; Problem Code Type: ICD-10; Not Available [facility] 3 04:31:03 Plantar fascial fibromat osis 12208263 Completed 201511/07/2016 Problem Code: M72.2; Problem Code Type: ICD-10; Not Available [facility] 3 04:31:03 Screenin g for malignan t neoplasm of cervix Completed 201107/20/2020 Problem Code: Z12.4; Problem Code Type: ICD-10; Not Available [facility] 3 04:31:03 Burn 647153254 Completed 201511/10/2016 Problem Code: T30.0; Problem Code Type: ICD-10; Not Available [facility] 3 04:31:04 Pain in right foot 05683010274 9107 Active [address], [place], [address] , [facility] 3 13:59:23 Contact dermatit is 08654405 Completed 202208/28/2023 Problem Code: L25.9; Problem Code Type: ICD-10; Not Available [facility] 4 05:37:22 Pain in left lower limb 371254506 Completed 201408/28/2023 Problem Code: M79.605; Problem Code Type: ICD-10; Not Available [facility] 4 05:37:23 Pruritic rash 54451610 Active [address], [place], [address] , [facility] 4 11:12:18 Notes:*Problem Name: + Lyme Titer *ICD-10 Codes: *Problem Status: inactive *Comments: *Note Date: 09/02/2013 *Problem Name: Ptsd--reactivation *ICD-10 Codes: *Problem Status: inactive *Comments: *Note Date: 02/11/2012 Problem Notes None recorded. Procedures Surgical History Date Name Laterality Status Provider Name and Address Organization Details Recorded Time 024 Chandler-en-Y gastrojejunostomy completed [address], [place], [address], [facility] 06/09/2024 05:45:19 023 Date of Last Colonoscopy completed ASHUTOSH HAWTHORNE [place] [facility] 12/03/2023 09:00:45 023 Most Recent Mammogram completed ASHUTOSH HAWTHORNE [place] [facility] 12/03/2023 09:00:06 023 Date of Last Mammogram completed ASHUTOSH HAWTHORNE [place] [facility] 12/03/2023 09:00:12 023 Date of Last Pap Smear completed ASHUTOSH HAWTHORNE [place] [facility] 12/03/2023 08:59:13 Imaging Results None recorded. Procedure Notes None recorded. Medical Equipment None Reported. Allergies Allergen ID Allergen Name Allergen Category Reaction Reaction Severity Criticality Documentation Date Start Date Code Code System Note Provider Name and Address Organization Details Recorded Time 26684 Poison Indu medicatio n Not available Not available Not available 09/14/20232016 Aller gyNam e: 'POIS ON INDU'; Not Available [facility] 3 16:22:08 17617 oxycodone hydrochlo ride medicatio n vomiting Not available [facility] 09/14/20232011 [address], [place], [address] , [facility] 4 15:53:22 62264 diclofena c medicatio n other moderate Not available 09/14/20232019 3355 RxNorm GI UPSET Aller gyRea ction : 'GI UPSET '; Not Available [facility] 3 16:22:09 31523 ketchup food Not available Not available Not available 03/13/2024 Huber de oliveira [place] [facility], [facility] 4 10:15:08 11204 ibuprofen medicatio n Not available Not available Not available 03/13/2024 5640 RxNorm avoid s due Mobile tt's esoph afsaneh [address], [place], [address], [facility] 4 15:53:05 65937 fish derived food,medi cation other Not available Not available 10/16/2024 conac t with skin cause s ga ; does not eat [address], [place], [address], [facility] 4 15:55:04 Medications Name Sig Start Date Stop Date Status Note LastModified by Organization Details LastModified Time metformin 500 mg tablet 500mg-4 PO QD 12/04 completed [facility] Not Available Not Available Not Available [...] BEFORE MEALS AND HS PRN 01/21 completed [facility] Not Available Not Available Not Available [...] Not Available Not Available Not Available Vitals None Recorded Social History Question Answer Notes LastModified by Organizat ion Details LastModified Time Tobacco Smoking Status Never Smoker Tammy Corbett [place] [facility], [place] - [facility]. 09/21/2023 12:51:10 What Is Your Level Of Alcohol Consumption? None [email or web address] Information not available 09/21/2023 Would You Say [...] Use Any Illicit Or Recreational Drugs? No [email or web address] Information not available 09/21/2023 Has Tobacco Cessation [...] less than 55 years of age FATAL TX @ 37Y/O Not available 09/14/2023 03:54:39 Maternal [...] Recorded Time MMR 6 completed Not Available [facility] 09/14/2023 05:02:42 MMR 6 completed Not Available [facility] 09/14/2023 05:02:42 Td (adult), 5 Lf tetanus toxoid, preservative free, adsorbed 6 completed Not Available [facility] 09/14/2023 05:02:42 Tdap 8 completed Not Available [facility] 09/14/2023 05:02:43 Influenza, split virus, trivalent, preservative 5 completed Not Available [facility] 09/14/2023 05:02:43 Influenza, split virus, trivalent, preservative 6 completed Not Available [facility] 09/14/2023 05:02:43 Influenza, split virus, quadrivalent, PF 0 completed Not Available [facility] 09/14/2023 05:02:43 Influenza, split virus, quadrivalent, PF 1 completed Not Available [facility] 09/14/2023 05:02:43 Influenza, split virus, quadrivalent, PF 9 completed Not Available [facility] 09/14/2023 05:02:44 Influenza, split virus, quadrivalent, preservative 7 completed Not Available [facility] 09/14/2023 05:02:44 Influenza, split virus, quadrivalent, preservative 8 completed Not Available [facility] 09/14/2023 05:02:44 COVID-19, mRNA, LNP-S, PF, 100 mcg/0.5mL dose or 50 mcg/0.25mL dose 1 completed Not Available [facility] 09/14/2023 05:02:44 COVID-19, mRNA, LNP-S, PF, 100 mcg/0.5mL dose or 50 mcg/0.25mL dose 1 completed Not Available [facility] 09/14/2023 05:02:44 COVID-19, mRNA, LNP-S, PF, 100 mcg/0.5mL dose or 50 mcg/0.25mL dose 1 completed Not Available [facility] 09/14/2023 05:02:44 Pneumococcal conjugate PCV20, polysaccharide HUD350 conjugate, adjuvant, PF 3 completed Not Available [facility] 09/14/2023 05:02:45 COVID-19, mRNA, LNP-S, bivalent, PF, 30 mcg/0.3 mL dose 3 completed Not Available [facility] 09/14/2023 05:02:45 Hep B, adult 7 completed Not Available [facility] 09/14/2023 05:02:45 Hep B, unspecified formulation 6 completed Not Available [facility] 09/14/2023 05:02:45 Hep B, unspecified formulation 6 completed Not Available [facility] 09/14/2023 05:02:46 influenza, unspecified formulation 3 completed Not Available [facility] 09/14/2023 05:02:46 COVID-19, mRNA, LNP-S, PF, jae-sucrose, 30 mcg/0.3 mL 4 completed Lea bowers [facility] 08/21/2024 15:47:44 Influenza, split virus, trivalent, PF 4 completed Lea bowers [facility] 08/21/2024 15:47:44 COVID-19, mRNA, LNP-S, PF, jae-sucrose, 30 mcg/0.3 mL 3 completed Not Available [facility]ly [facility] 11/16/2023 05:33:21 Past Encounters Encounter ID Performer Location Encounter Start Date Encounter Closed Date Diagnosis/Indication Diagnosis SNOMED-CT Code Diagnosis ICD10 Code [id number] Lea Foley [facility] [address] [place] [address] 08/21/2024 15:28:41 08/21/2024 15:53:15 Active or passive immunization [id number] Z23 Health Concerns Section Related Observation LastModified by Organization Detai ls LastModified Time None Recorded Concern Status LastModified by Organization Details LastModified Time None Recorded Payers Encounter Date Sequence Insurance Name Policy Number Policy Walsh Covered Member ID Walsh Member ID Guarantor Name 08/21/2024 1 [facility] (MEDICAID) Vianney Meeks [id number] Vianney Meeks OBGyn Episode No OBEpisode recorded.
--- OUTSIDE RECORDS SUMMARY | 2024-10-16 17:35 | XMS_ITS | Encounter Summary ---
Author Organization [facility] [place] [address] Care Team Providers Care Maple Syrup Maker Name Role Phone Sonido Cordoba Primary Care Provider [phone] Reason for Visit * Reason Comments Follow-up Encounter Details Date Type Department Care Team (Late st Contact Info) Description 09/15/2024 11:00 AM EST Office Visit [place] [address] Dena Alexander, FINANCIAL PLANNING ADVISOR [facility] [place] [place] [address] Belinda Heath, RD [facility] [place] [place] [address] S/P gastric bypass; Gastroesophageal reflux disease with esophagitis, unspecified whether hemorrhage; 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; Intestinal malabsorption, unspecified type Social History Tobacco Use Types Packs/Day Years Used Date Smoking Tobacco: Former Cigarettes 0.5 6 0 01/25/1991 - 01/25/1997 Smokeless Tobacco: Never Alcohol Use Standard Drinks/Week Comments Not Currently 0 (1 standard drink = 0.6 oz pur e alcohol) 1X/quarter DH IPV Inpatient Questions Answer Date Recorded Does [...] on file documented as of this encounter Last Filed Vital Signs Vital Sign Reading Time Taken Comments Blood Pressure 120/54 09/15/2024 11:00 AM EST Pulse 53 09/15/2024 11:00 AM EST Temperature - - Respiratory Rate 16 09/15/2024 11:00 AM EST Oxygen Saturation 100% 09/15/2024 11:00 AM EST Inhaled Oxygen Concentration - - Weight 93.7 kg (206 lb 8 oz) 09/15/2024 11:00 AM EST Height 160 cm (5' 3) 09/15/2024 11:00 AM EST Body Mass Index 36.58 09/15/2024 11:00 AM EST documented in this encounter Patient Instructions * Patient Instructions* Dena Alexander, FINANCIAL PLANNING ADVISOR - 09/15/2024 11:00 AM EST [facility] it support specialist Nichelle [phone] and Silva [phone] Dietitians: [phone] Surgeons/ nurse practitioners: [phone] Nurse line: [phone] Dear Vianney, Please see your electronic medical record note from today for details we discussed at your visit. Below is some additional general information that you may find helpful. Testing: It would be helpful if you can have your lab work drawn a couple days before your visit christine [facility] facility so the results are available at the time of your follow up visit. If you have labwork done by your primary care companion before that date, please have a copy sent to the Bariatric Surgery Program. Please call/send my message if you have not heard from us within 2 weeks of having labs work done. Here's the link to [facility] Lab hours and locations: [email or web address] Next visit: Follow up visits are done at 4 months and 12 months after surgery and yearly thereafter. Some patients are evaluated on a more frequent basis. Please call [phone] if you do not receive an appointment by 3-4 weeks prior to the expected visit. Vitamins/Nutrition/Activity Recommendations: Please see your visit note for personalized recommendations General Vitamin recommendations: Multivitamins with minerals twice daily- needs to be an under 50 multivitamin that contains iron. Vitamin B12 500 mcg by mouth once daily Calcium citrate 500-600 mg with Vitamin D 400 units twice daily (600 mg in AM and 600 mg in PM- 2 pills twice a day) (or 1 chewable twice a day) Iron supplement: as specified in today's visit Vitamin D: as specified in today's visit General Nutrition recommendations: 1,000-1,200 calories per day (300 calories per meal, 100 calories per snack, 1-2 snacks per day) 60 grams of protein per day (20 grams per meal) 48-64 oz of non-caloric and hydrating fluids per day (6-8, 8 oz cups) Do not drink with meals- pushes food through more quickly, can cause upset stomach Activity: Aim for 30 minutes of exercise daily, 5 days a week of both cardio and strength training exercises. Skinfold care: Cleanse area with soap and water. Blow dry area on low setting with executive chairman. Avoid excessive heat and/or sweating as friction and moisture can exacerbate disease. Try OTC Dove clinical strength anti perspirant to affected areas nightly or an absorbent powder such as Gold [place] and Desinex Apply cotton strips (such as strips from old sheets) or larger size cotton underwear folded beneathskin folds to act as a wick. Do not apply edmundo cloth toweling which can cause further irritation Try combination of over the counter hydrocortisone cream with over the counter antifungal cream such as lotrimin twice a day for 2 weeks. If your symptoms do not improve you may require prescription of anti-fungal cream/powder. Follow up with PCP if symptoms worsen/fail to improve with above strategies. Constipation: Increase fiber, fluids and fitness. Yerba Prima is a fiber supplement that comes in capsule form. Additionally, consider trying 1 capful daily of miralax daily (preferably at night) with a goal of at least 1 BM per day. You can increase the dose as needed every 2-3 days (by adding on 1 capful either morning or night) without safety concerns, noting that individual tolerance becomes limited by loose stools and bloating with doses higher than 2 capfuls twice daily. Please call if you do not have a BM after 3 days. On days with loose stools, we recommend reducing miralax to 1/2 capful daily but continue to take miralax every day Nausea: Common causes for nausea post bariatric surgery are: Eating too fast, eating too much, drinking with meals, or not chewing well enough. Be sure to eat slowly and chew food well. Take at least30 minutes or more to eat a meal. Call if symptoms worsen, fail to improve, or if you have difficulty keeping food or fluid down. Alcohol: is not recommended for at least 6-12 months after surgery. Alcohol is absorbed much fasterand stays in your system much longer post bariatric surgery and as a result there is an increase risk of alcohol misuse/abuse after bariatric surgery. It should be used sparingly, no more than one drink per occasion, no more than 2 drinks a week. Alcohol is toxic to the liver, a source of empty calories, it can cause ulcers, vitamin and mineral deficiencies, as well as impair digestion and absorption of nutrients. Call or follow up with your therapist or primary care provider if you are struggling or think your alcohol intake is a problem. control for women of child bearing age: is recommended for at least 18-24 months after surgery. f non-prescribed drugs and treet drugs is unsafe Anti-inflammatory medications such as Ibuprofen (Advil), Aleve (Naproxen), Excedrin, Erica-Callaway should be used sparingly after gastric bypass, since they increase the risk of ulcer and bleeding. A bone mineral density scan (DEXA) is recommended every 2 years after bariatric surgery. Please schedule this study through your primary care providers office. Hair Loss: is associated with rapid weight loss and is seen approximately 3 to 6 months after surgery and can last 3 to 6 months. It is almost always temporary. Eating a healthy diet with 60 grams ofprotein per day and taking your multivitamin with minerals will help. Sleep Apnea: If you have a history of sleep apnea and have a CPAP/BiPAP, please be sure to follow up with the sleep center to confirm your pressures and determine if continued use of CPAP/BiPAP is recommended. Potential lifetime risks of gastric bypass include risk of ulcer, which is increased with alcohol and antiinflammatory medications and internal hernia (less than 5%), which may be increased with higher than predicted weight loss Potential lifetime risks of sleeve gastrectomy include developed heartburn or severe reflux Call us: If you have concerns. If you have unexplained abdominal pain. if you see blood in your stool or vomit blood If you have prolonged vomiting Post Surgery Support Group: Our post surgery support group meets at [facility] on the first Sunday of every month from 1:00 PM-2:00 PM. You can attend online or in person. Use the following link to attend online: [email or web address] Nutrition and Activity apps- Baritastic, My Fitness Pal, Lose It, My Plate Internet resources: www.imgix wwwZutux www.Off & AwayeaCognea.Unreal Brands www.Hi-Stor Technologies.Unreal Brands/blog [facility] facebook page: https://www.facebook.com/[facility] Books & Magazines: - Recipes for Life After Weight Loss Surgery by Cassy Lux - Shrink Yourself by Dr Andrew Westbrook - Eating Well - www.Pharmaron Holding.Unreal Brands - Cooking Light- www.cookinglight.Unreal Brands Anxiety: The Happiness Trap by Nabil Rios The Mindfulness and acceptance workbook for anxiety By Da Monge. Mindful eating: What are you Hungry For? By Adi Forrest The Mindful Diet by Merari Marina and the [facility] group. Emotional eating: End Emotional Eating by Belinda Osorio Calming the Emotional Storm Chanell Brownlee documented in this encounter Progress Notes * Dena Alexander APRN - 09/15/2024 11:00 AM EST [place] [address] Reason for visit: Bariatric Surgery follow up visit Subjective: Vianney Cordero is s/p laparoscopic takedown of Addie and Barbi-en-Y gastric bypass on 05/29/[address] Damon , she presents today for 4 month post bariatric surgery follow up. Overall tolerating foods/fluids and trying to make sure she is meeting nutritional/fluid requirements. She has had a few times when she thinks she over ate, her nose ran and then she had increase foaming/frothing. Pt reports no difficulty swallowing, epigastric pain, or bloating. Typically no N/V (other than the foamies) BM are daily without problems. She is still taking PPI as she has a hx of Rodgers's, no c/o GERD or heartburn. Current Supplements: Had some issues with her supplements. Bariatric fusion multi-vitamin with minerals one a day with iron (plans to start) Calcium citrate 500 mg with Vit D 400 IU twice daily, (plans to start) Interim Health: Patient reports health has been stable overall. No bariatric related surgeries, hospitalizations, or ED visits since the last visit. No kidney stones or atraumatic fractures. Pt follows with PCP/specialist for disease management and age specific screening. Pre-Bariatric Surgery Obesity related medical issues: Problem Baseline issue if checked Comments Diabetes/prediabetes/insulin resistance [x] No longer on metformin Metabolic syndrome or PCOS [] HTN [] GERD [x] Hx of Rodgers's, last EGD 05/2023, on PPI Hyperlipidemia [x] Not requiring medication YAHIR [] Musculoskeletal issues [x] Ankle, knee Liver Disease [x] Other [x] PTSD, depression/anxiety Patient Active Problem List Diagnosis Code Elbow pain, right M25.521 Ulnar neuropathy at elbow of right upper extremity G56.21 Hiatal hernia K44.9 Pain in left shoulder M25.512 Right knee pain M25.561 Hx of tonsillectomy Z90.89 History of dilation and curettage Z98.890 History of Addie fundoplication 06/2015 Z98.890 Left ankle pain M25.572 Peroneal tendon tear, right, subsequent encounter S86.311D Fatty liver K76.0 Anxiety F41.9 Depression F32.A Post-traumatic stress disorder, unspecified F43.10 Kidney stone N20.0 BMI 45.0-49.9, adult Z68.42 Insulin resistance E88.819 Elevated ferritin R79.89 Elevated LDL cholesterol level E78.00 S/P laparoscopic cholecystectomy Z90.49 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 K22.70 Gastroesophageal reflux disease with esophagitis K21.00 S/P bariatric surgery Z98.84 Trigger finger of left thumb M65.312 Review of Systems Constitutional: energy level is good , no c/o restless leg, no pica, no hair thinning/loss. Neuro: no c/o paresthesias. No changes in memory. CV: no chest pain or palpitations. Pulm: denies SOB or cough. GI: as above SMOKE CONTROL SUPERVISOR: tubal ligation Skin: No c/o redundant skin or skin fold rashes. 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 Health Habits: Tobacco: None. ETOH: No alcohol since before surgery NSAID use: None. Dietary history/ exericse/ activity level: See dietitian note from today's visit for complete dietary evaluation. Meds and Allergies reviewed. Visit date Wt (lbs) BMI HT Highest WT 256 - Pre-op 12/20/23 256 45.5 5'3 03/06/24 242 42.8 Post-op WT BMI %EBW lost 06/20/24 224 38.5 28% 09/15/24 206 36.5 43% Objective: BP 120/54 (BP Location (NBP): Right arm) Pulse 53 Resp 16 Ht 160 cm (5' 3) Wt 93.7 kg (206lb 8 oz) LMP (LMP Unknown) SpO2 100% BMI 36.58 kg/m?? Physical Exam General: Alert, pleasant, NAD, appears well. Abdomen: Soft, non-distended, non-tender. Well healed incisions. Respiratory: No increased work of breathing. Speaking in full sentences. No cough/wheeze witnessed. Skin: excess skin noted abdomen. Skin is warm and dry. No rash noted on exam today. Psychiatric: Normal mood and affect. Appropriate eye contact. Recent Results (from the past 72 hour(s)) Vitamin B12 Result Value Ref Range Vitamin B12 571 232 - 1,245 pg/mL Vitamin D, 25-Hydroxy Result Value Ref Range Vitamin D Total 25 OH 29 21 - 100 ng/ml Vitamin D Total 25 OH Interp Insufficient PTH Result Value Ref Range Parathyroid Hormone 64 15 - 65 pg/mL Iron and TIBC Result Value Ref Range Iron 92 30 - 150 mcg/dL TIBC 316 250 - 450 mcg/dL Iron Saturation 29 20 - 50 % Hemogram Result Value Ref Range White Blood Cell 7.38 4.00 - 9.50 x10(3)/mcL Red Blood Cell 4.44 4.00 - 5.21 x10(6)/mcL Hemoglobin 13.1 11.7 - 15.5 g/dL Hematocrit 39.2 35.7 - 45.8 % Mean Cell Volume 88.3 82.6 - 94.4 fL Mean Cell Hemoglobin 29.5 27.1 - 32.0 pg Mean Cell Hemoglobin Concentration 33.4 31.7 - 35.0 g/dL Platelet 261 145 - 357 x10(3)/mcL Mean Platelet Volume 10.8 7.6 - 12.9 fL RDW Standard Deviation 39.2 37.0 - 46.0 fL RDW coefficient of variation 12.1 11.5 - 14.1 % NRBC% auto 0.0 % NRBC Absolute <0.01 <0.01 x10(3)/mcL Folate, serum Result Value Ref Range Folate 7.6 4.8 - 24.2 ng/ml Ferritin Result Value Ref Range Ferritin 157 6 - 175 ng/ml Comprehensive metabolic panel Result Value Ref Range Glucose 93 65 - 99 mg/dL Blood Urea Nitrogen 13 8 - 18 mg/dL Creatinine 0.70 0.70 - 1.20 mg/dL Sodium 141 135 - 145 mMol/L Potassium 3.9 3.5 - 5.0 mMol/L Chloride 108 (H) 98 - 107 mMol/L Carbon Dioxide 22 22 - 31 mMol/L Anion Gap 11 5 - 15 mMol/L Calcium 9.5 8.5 - 10.5 mg/dL Protein, Total 7.2 6.1 - 8.0 g/dL Albumin 4.1 3.2 - 5.2 g/dL Aspartate Aminotransferase 20 <=30 unit/L Alanine Aminotransferase 14 0 - 30 unit/L Alkaline Phosphatase 124 (H) 35 - 105 unit/L Bilirubin, Total 0.3 <=1.3 mg/dL Est Glomerular Filtration Rate - Female 108 mL/min/1.73 m?? Fasting Status Yes Assessment 48 y.o. female 4 months s/p Barbi-en-Y gastric bypass with 43% of excess body weight lost. Plan: S/p bariatric surgery: Doing well from a bariatric surgery perspective. GERD sx have improved. Reviewed importance of meeting nutritional/protein/fluid requirements, tracking food/preplanning, meal prep, pairing carbs withprotein and following post bariatric eating behaviors. Patient has met with scrap drop crane operator today, please see note for additional details/dietary evaluation. Advised that control is recommended for at least 18-24 months post-operatively. Advised that hair loss due to rapid weight loss is typical for this early post- surgery time frame, will improve with time and adequate protein/calorie intake. Avoid ETOH until 6-12 months post-operatively, and then should be used in small amounts Obesity related co-morbidities Improved/stable overall Hx of GERD/Rodgers's- sx are resolved. Will continue on PPI. . Risk for vitamin deficiencies: Reviewed lab results as above. Vit D, Folate below target goal - She will continue/start Bariatric supplements as above, will recheck labs at next visit and determine changes/adjustments at that time Reviewed recommended vitamin/mineral supplements- See RD note for additional details re: vitamin/mineral supplementation. Pt reminded that a bone mineral density scan (DEXA) is recommended every 2 years after bariatric surgery. RTC in 8 months for 1 year post bariatric surgery follow up visit, with labs. Call/rtc sooner prn with questions/concerns, unexplained abdominal pain, prolonged nausea, vomiting or inability to hydrate, questions or concerns. Bariatric Program Summary report is availabe for patient's review via e-DH I spent a total of 20 minutes associated with this encounter, including chart review, the patient encounter, and documentation. Dena Alexander APRN RECOMMENDED BARIATRIC SURGERY PROGRAM POSTOPERATIVE FOLLOW-UP: Follow up: done at 4, 12 and yearly thereafter. High risk patients are evaluated on a more frequentbasis. *Typical Supplement recommendations: Multivitamin with minerals twice a day, B12 500 mcg once a day, calcium citrate 600 mg/400 units vitamin D twice a day, iron (ferrous fumarate, carbonyl iron taken with vitamin C 250 mg once every other day) for menstruating females or those with Iron Deficiency. Labwork: Hemogram, ferritin, iron (transferrin) saturation, iron, folate, B1, B12, D (25 hydroxy only), Intact PTH and comprehensive metabolic profile at 4, 12 months and yearly. If labwork is done by the primary care companion: please send a copy to the Bariatric Surgery Program, General Surgery Clinic, [facility], or fax [phone] * Belinda Heath RD - 09/15/2024 11:00 AM EST Bariatric Surgery Program Nutrition Progress Note Encounter Type: follow up SUBJECTIVE: Topics Discussed/Patient Concerns: No specific dietary concerns. Has not been able to take her supplements for 2 weeks. Has been having difficulty getting them shipped to her house. Had numerous emails/phone call with Bariatric Fusiontrying to get it sorted out. 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 3 children. Pt lives with 2 sons, granddaughter (pt has guardianship). Has SO, does not live with him. Social support: SO, children, mom, sister in [place] Hobbies: walking, hiking, fishing (allergy so can't touch the fish), spending time w family and friends Vision at 2 years post-op: improved quality of life, easier time climbing [place], has a lot of trails she'd like to get to that are step and cannot get up now. Weight outcome: would like to get back to 150 but realizes that is not realistic. 200 or a little under OBJECTIVE: Date of Bariatric Surgery: 05/29/24 Type of Bariatric Surgery: Laparoscopic Addie fundoplication takedown, conversion to barbi en y gastric bypass with Dr. Damon Weight History: Weight History: Date Weight (lbs) HT BMI Comments 12/20/23 256# Highest Weight 11/15/22 233# 63 41.3 Initial program weight 12/20/23 256# 45.3 1st pre-op visit 03/06/24 242.2# 42.8 2nd pre-op visit 05/29/24 243# EWL % Surgery 06/20/24 224# 28% 38.5 3 weeks post-op 09/15/24 206.5# 43% 37.6 4 months post-op [place] Body Weight (based on BMI of 25): 141 30-70% Excess Weight Loss: 176-222#; 50% Excess Weight Loss: 199# MEDICATIONS: Vitamin/Mineral Supplements (reported by patient): Supplement Type Brand/Form Dosage/Amount Frequency Comments Multivitamin Bariatric Fusion One a Day 1 pill daily Not in 2 weeks. Calcium None. Needs to buy. Vitamin B12 Iron Vitamin D3 Food Allergies/Intolerances: Lactose Tracking Intake: Not currently tracking- will restart if she feels she needs it. 24-Hour Intake: Breakfast Core Power- . Yesterday: scrambled eggs w 2 slices culp AM Snack Lunch Leftover chicken PM Snack Dinner Beef stew. HS Snack Protein/ grams per day: 60+ Hydrating fluids- oz/ day: 3 x 16 oz bottles water, 16 oz Crystal Light. Occ Lactaid Soda: ETOH: None. Caffeine: None Sweets: Meals per day: Feels full/satisfied after eating: Feels hungry: At meal times Spends at least 20 minutes eating each meal: still working on this- has to think about it but doingwell. Nausea/Vomiting/Regurgitation: Occ vomiting with ? Overeating. Nose gets stuffy and she secretes saliva which make her vomit. Last happened last week but it had been a while. Constipation/Diarrhea: taking colace as needed. BM daily Exercise: energy is good. Walking, wants to get back into walking at the football field but currently does not have a car. Considering joining the gym. ASSESSMENT: Summary of Weight Loss: Vianney Cordero returns for routine follow-up at 4 months s/p surgery. Her excess weight loss is at 29%. She is tolerating the diet and is meeting protein and fluid goals. Reviewed recommendedsupplements. NUTRITION INTERVENTION & MONITORING: Provided support/encouragement and reinforced importance of meeting nutritional goals. Keep up the good work meeting protein and fluid goals Reviewed vitamin and mineral supplement recommendations. Multivitamin with minerals- continue Bariatric Multivitamin 1 pill per day Calcium citrate 500-600 mg with vitamin D twice daily. (2 pills twice per day or 1 chew twice daily) Vitamin D- if recommended based on lab work Evaluation by nurse practitioner today. F/u in May 2025, sooner if requested. documented in this encounter Plan of Treatment Upcoming Encounters Date Type Department Care Team (Late st Contact Info) Description 12/31/2024 10:00 AM EST Office [place] [address] [facility] [address] [place] [address] 04/01/2025 2:00 PM EDT Office [place] [id number] [facility] [place] [address] documented as of this encounter Goals Goal [...] a priority: - Eggs - Cheese - Spanish yogurt / cottage cheese - meat - fish - nuts/seeds - protein shake or bar Start with the protein, can choose to add other foods (would rather have you choose regular bread/ swedish muffin, etc. - whole wheat if possible- [...] documented as of this encounter Visit Diagnoses Diagnosis S/P gastric bypass Bariatric surgery status Gastroesophageal reflux disease with esophagitis, unspecified whether hemorrhage 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 Rodgers's esophagus Intestinal malabsorption, unspecified type documented in this encounter Care Teams Maple Syrup Maker Relationship Specialty Start Date End Date Sonido Cordoba PA [address] [place] [address] PCP - General Family Medicine 07/06/20 documented as of this encounter
--- OUTSIDE RECORDS SUMMARY | 2024-10-16 17:36 | XMS_ITS | Encounter Summary ---
[place] [address] Care Team Providers Care Machine Feller Name Role Phone Sonido Cordoba Primary Care Provider [phone] Encounter Details Date Type Department Care Team (Late st Contact Info) Description 06/06/2024 Telephone [place] [address] Lacy Allen RN Social History Tobacco Use Types Packs/Day Years [...] on file documented as of this encounter Miscellaneous Notes * Telephone Encounter - Lacy Allen RN - 06/06/2024 9:29 AM EDT S/P rosy to gastric bypass on: 05/29/24 Discharged on PO Day #: 1 Issues during hospitalization: none Today's phone discussion took place with patient, Vianney Cordero was called via phone for post discharge follow up. Diet: stage: 2 Fluids: 40-48 ounces Protein: 26 grams (1 protein shake in between meals) Other: Nausea/ vomiting: No Urination: adequate, no difficulties Bowels: No issues Activity level: Moving around the house Pain level: 0/10 Did you take any narcotics: Yes If yes, how many doses: 2 If not, how did you dispose of them: brought to pharmacy for disposal Any significant changes to comorbidites/ medications (ex DM, HTN): No Medications: Currently crushing or taking liquid form of medications, as appropriate: Yes Taking ulcer prevention medication: Yes Taking Ursodiol (if appropriate): NA VTE prophylaxis: enoxaparin: NA Follow up: PCP appointment: 06/09/24 at one month, as scheduled with surgeon and RD Patient questions: None Recommendations: Increase protein intake to 60-80 grams. Drink protein shake for meals instead of broth. documented in this encounter Plan of Treatment Upcoming Encounters Date Type Department Care Team (Late st Contact Info) Description 12/31/2024 10:00 AM EST Office [place] [address] Mercy Amanda MD [facility] [address] [facility] [address] 04/01/2025 2:00 PM EDT Office [place] [phone] Erum Szymanski MD [facility] [place] [address] documented as of this encounter Goals Goal [...] choices Lifestyle On track(2022 9:48 AM EDT) No Priti Skinner RD Note: Images from the original note [...] a priority: - Eggs - Cheese - Kyrgyz yogurt / cottage cheese - meat - fish - nuts/seeds - protein shake or bar Start with the protein, can choose to add other foods (would rather have you choose regular bread/ belizean muffin, etc. - whole wheat if possible- [...] on filedocumented in this encounter Care Teams Machine Feller Relationship Specialty Start Date End Date Sonido Cordoba PA [address] [place] [address] PCP - General Family Medicine 07/06/20 documented as of this encounter
--- OUTSIDE RECORDS SUMMARY | 2024-10-16 17:36 | XMS_ITS | Encounter Summary ---
Author Organization [facility] [place] [address] Care Team Providers Care Turntable Worker Name Role Phone Sonido Cordoba Primary Care Provider [phone] Encounter Details Date Type Department Care Team (Late st Contact Info) Description 05/07/2024 1:00 PM EDT [place] [address] Dena Alexander, HOOK UP [facility] [place] [address] Belinda Heath, RD [facility] [place] [address] Encounter for pre-bariatric surgery counseling and education Social History Tobacco Use Types Packs/Day Years Used Date Smoking Tobacco: Former Cigarettes 0.5 6 0 01/25/1991 - 01/25/1997 Smokeless Tobacco: Never Alcohol Use Standard Drinks/Week Comments Not Currently 0 (1 standard drink = 0.6 oz pur e alcohol) 1X/quarter Sex and Gender Information Value Date Recorded Sex Assigned at Not on file Gender Identity Female 08/09/2020 11:37 PM EDT Sexual Orientation Not on file documented as of this encounter Patient Instructions * Patient Instructions* Kailyn Urbano, HOOK UP - 05/07/2024 1:00 PM EDT Images from the original note were not included. Discharge Instructions - Bariatric Surgery NEW PRESCRIPTIONS: home supervisor at [facility] today: Typical medications are Lovenox (blood thinner), omeprazole (ulcer prevention), Zofran (ondansetron)- anti-nausea, You will be given either gabapentin/tizanidine/ca risoprodol/cyclobenzaprine/celecoxib or liquid oxycodone (pain control), Miralax and Colace (constipation) home supervisor at your home pharmacy: ursodiol if you have a gallbladder (you start this 2 weeks after surgery and continue for 6 months) HOME MEDICATION PLAN: Wait two weeks to start taking bariatric vitamins No changes, take whole: Changes: You will be instructed on what medications are Ok to open, cut in half, or crush for 2 weeks as needed based on size template below: You will be instructed what medications you should hold or stop taking: MEDICATIONS: For 2 WEEKS: LARGE pills (bigger than the size of a Skittle or M&M) must be crushed. Large capsules must be opened and put in applesauce or pudding. Please use the size template below to measure your pills. Pills that are the same size or smaller than the template below do not need to be crushed/opened Not all medications can be crushed. Check with your pharmacist if unsure. HOLD bariatric vitamins for 2 weeks after surgery (unless you have one that is chewable or liquid). Size Template: PAIN MANAGEMENT: Use heat or ice packs to your incisions. Take Tylenol 975 mg (three regular strength tablets) every 8 hours scheduled for the first 3-5 daysafter surgery. Do NOT take more than 4000mg every day. In addition to scheduled Tylenol, you may be given additional prescription pain medication for 3-5 days after surgery (gabapentin 100 mg twice daily, tizanidine (Zanaflex) 2 mg three times daily , carisoprodol (Soma) 250 mg three times daily , cyclobenzaprine (Flexeril) 5 mg three times daily or celecoxib (Celebrex) 100 mg twice daily ) Please be sure to read your prescription bottle to be sure you are taking the medication as written. Call the General surgery clinic if you have questions. If you have been prescribed a narcotic pain medication (oxycodone, hydromorphone, etc) please follow the instructions below. Take this medication as prescribed up to every 6 hours as needed for pain not covered by Tylenol and any other prescriptions. Please use the log below to keep track of how much pain medication you need after surgery. Take the medication exactly as it is prescribed and make sure to read all instructions that come with the medication. Over the next couple of days you should be requiring less of this medication to control your pain, so that eventually you will not need any at all. You do not have to take all of the medication that was prescribed, if you have leftover pain medication this can be disposed of at a pharmacy or at your next follow up visit in the surgery clinic. Taking more than the prescribed amount of medication or using with alcohol or other drugs can causeyou to stop breathing resulting in coma, brain damage, or . Opioids can slow reaction time, cause drowsiness, or cloud judgement. Do not drive for 8 hours after any dose of opioid pain medication if one was prescribed for you. Using this drug may cause addiction. While addiction is more common in people with a personal or family history of addiction, it can occur in anyone. Opioids are at risk of being diverted by anyone with access to your home. Opioids should be stored in a safe and secure place, such as a locked cabinet or safe. Unused opioids should be disposed of appropriately. They may be returned to a take-back location, or mixed with a small amount of water and poured over an undesirable waste such as used coffee grounds or cat litter. Please note that most pain medications can cause constipation. You may use a stool softener such asMiralax to prevent this. OPIOID USE LOG: If you have been prescribed , which is an opioid pain medication. You will be given instructions onhow much and how frequently you can take it if your pain is not well controlled with either acetaminophen (Tylenol) or one of the other above pain medications. Please use this log to keep track of when you used opioid pain medication after surgery. Keep this paper close to where you keep your pain medications and note how many doses you have taken. Your healthcare team will ask for this log at your first postoperative appointment. Date and time Amount I took (in doses, mLs, or tablets) Example: 05/08/2024 at 12 pm Example: 5 mL liquid oxycodone PAIN MEDICATION TAPER INSTRUCTIONS: Your pain should slowly and steadily diminish as you heal. If your pain level at the surgery site increases, you should call us. It is normal for increased pain if you are overly active or you decrease your pain medication, but a significant and unexplained increase in pain should be discussed with your surgeon. Pain medication is usually necessary for only 3-5 days postoperatively. It is important to have a plan for tapering off of pain medication. See below for tapering schedule sample. As your pain improves, start to wean oxycodone first by taking fewer tablets and taking it less often. Continue your Tylenol and other pain medication as you wean the narcotic. Wean the Tylenol last. OTHER MEANS FOR PAIN RELIEF: Learn deep breathing exercises or meditation to help you relax Reduce stress Your body produces natural endorphins from exercise which can help reduce pain. Even walking is considered exercise. Talk with your provider/surgical team about what exercises are appropriate for youto perform. You may use a heating pad or apply ice to the painful area unless specifically discouraged by the surgical team. Find ways to distract yourself from the pain. BARIATRIC SUPPORT TEAM CONTACT NUMBERS (Mon-Fri 8am - 5pm): General Surgery and Bariatric Surgery [phone] Bariatric Surgeons: Jeremy Meléndez Trus [phone] Manager Contracting: [phone] Dietitians: [phone] Outside of regular business hours, including weekends and holidays: Ask for General Surgery resident seasonal retail merchandiser [phone] Please note, this call will be answered by a resident, and they may not be able to return your call for several hours FOR EMERGENCIES: CALL 911 (trouble breathing, chest pain, rapid heart rate >120 beats per minuteor severe abdominal pain) CALL THE BARIATRIC TEAM FOR ANY OF THE FOLLOWING: Signs and symptoms of infection such as: Redness or swelling or new significant drainage from wounds Drainage or bleeding from wounds Fever over 101 degrees Fahrenheit, or shaking chills Persistent diarrhea or vomiting or inability to keep down food or fluids in a 24 hour period Signs / symptoms of a blood clot: leg swelling, redness, pain, shortness of breath Problems with urination or constipation, worsening abdominal pain not controlled with pain medication Any concerns you may have after your surgery Follow up Information: You have a surgical follow up appointment with The Bariatric Surgery Team in 3-4 weeks at the [facility] Surgery Outpatient [facility] (Supervisor Scrap [facility], [facility] WOUND CARE If you have liquid dressing over your incisions, there is nothing to remove. You may shower 24 hours after surgery. If you have steri-strips and Band-Aids over your incisions. You may remove Band- Aids 48 hours aftersurgery and then shower. Leave the steri-strips (little pieces of skin tape) across the incision and allow them to peel off on their own. If they are still there in 10 days, you may remove them. When you shower, let soap and water run over incisions without scrubbing. Pat dry gently. Some bruising around your incisions is normal. Using ice packs will help minimize this swelling. No swimming or soaking in water (ie. hot tubs or baths) for two weeks. Your stitches will dissolve and do not need to be removed. ACTIVITY, LIFTING AND DRIVING: For laparoscopic surgery, there are no lifting restrictions. Lift when you feel comfortable to do so. Do not drive if you are taking narcotic pain medication. Wait at least two days after surgery to start driving (if not taking narcotic pain medication). When you are no longer taking narcotic pain medication and when it no longer causes pain to get in and out of the vehicle, you may drive when comfortable. DIET: Follow Stage II diet for two weeks. Keep a log of your intake, both for reminders to drink/eat, and to ask questions at your follow up. Daily goals are: 48-64 ounces of fluids and 60 grams of protein. CONSTIPATION: Your goal is at least 1 BM per day. Be sure you are meeting your fluid goals and moving/walking. Take 1 capful of Miralax daily (preferably at night) You can increase the dose as needed every 2-3 days (by adding on 1 capful either morning or night) without safety concerns, noting that individual tolerance becomes limited by loose stools and bloating with doses higher than 2 capfuls twice daily. Please call or send a COGEON message if you do not have a BM after 3 days. On days with loose stools, we recommend reducing Miralax to 1/2 capful daily, but continue to take Miralax every day. If you continue to be constipated after taking Miralax for 1-2 days after surgery, you may add in the following over the counter medication: Take one 100 mg capsule of Colace every day, up to twice daily. BLOOD CLOT PREVENTION: IF you DO meet scoring criteria- you will be discharged on enoxaparin injections twice daily for 10days after you go home to prevent blood clots. Be active, walk at least 4 times a day and do blood clot prevention exercises in your handbook on page 82. If you DO NOT meet scoring criteria to be discharged on medication to prevent blood clots. Be active, walk at least 4 times a day and do blood clot prevention exercises in your handbook on page 82. IF YOU ARE TREATED FOR OBSTRUCTIVE SLEEP APNEA: IMPORTANT - you MUST use your CPAP/ BIPAP after surgery while sleeping at night and also when napping during the day because some medications you may have been prescribed at discharge can decrease your breathing. Follow up with the Sleep [facility] if pressure seems to be too high. ULCER PREVENTION: IMPORTANT - starting the day after discharge, you must take acid suppressing medication for 3 MONTHS after surgery. This is taken to prevent ulcers at your surgical sites internally, even if you do not have heartburn. You will start taking omeprazole (Prilosec) 40 mg daily. Omeprazole capsules contain enteric-coated, delayed-release granules. It is ok to swallow this capsule, but if you choose, you can OPEN the capsules, sprinkle the enteric-coated granules on applesauce or yogurt. Alternatively, you may take the granules with apple juice, or swallow them quickly withwater. Follow any of these methods with additional water to ensure that you have swallowed the granu les completely. If your insurer does not cover omeprazole, or similar medications such as pantoprazole, you must purchase these medications over the counter. You will continue this after the initial 3 month course if you have heartburn or reflux GALLSTONE PREVENTION: If you have had your gallbladder REMOVED - you do not need this medication. If you have your gallbladder after Bariatric Surgery - you must take start taking Ursodiol twice daily for 6 months to prevent gallstones. You may START this medication 2 weeks after surgery for a duration of 6 months. After that, you may stop this medication unless otherwise directed. If you find that this medication costs too much, and/or your insurance will not pay for it, you maybe eligible for assistance to pay for this with [employer]. Go to [email or web address] and put in the prescription and the pharmacy you would like to pick it up from, and you may be able to get the medication at a significantly reduced pablo. PATIENTS WITH HIGH BLOOD PRESSURE: Monitor your blood pressure regularly at the same time every day. If your systolic (top number) blood pressure is consistently higher than 140 for several days in a row, please contact your PCP for instructions about restarting blood pressure medication(s). If you feel dizzy and have been drinking 48-64 ounces of fluid, have your blood pressure checked. If your blood pressure is low, call your primary care provider. Keep a log to bring to your PCP appointments. PATIENTS ON ANTI-DEPRESSANT OR MENTAL HEALTH MEDICATIONS: Do not stop or decrease your medications unless advised. Ongoing counseling is encouraged. MEDICATIONS TO AVOID FOR TWO MONTHS AFTER SURGERY: Discontinue anti-inflammatory non-steroidal medications, such as Advil, Aleve, ibuprofen, naproxen,etc. Refer to Medications that may increase the risk of bleeding in your handbook. If you do take aspirin for your heart or to prevent strokes, continue as prescribed. WOMEN OF CHILDBEARING AGE: Fertility may increase with weight loss. Avoid for 18-24 months after bariatric surgery. Condoms alone are not acceptable as a form of control. Do not take control pills for the first month after surgery. MANAGEMENT OF DIABETES MELLITUS AFTER BARIATRIC SURGERY: IMPORTANT to check blood sugars four times a day, fasting blood sugars, 2 hours after meals and as needed when feeling unwell. If the Diabetes Team saw you during your hospital stay, they have listed specific recommendations elsewhere in your discharge paperwork. Please refer to their specific diabetes care recommendations. Patients on oral diabetic medication: If blood sugar is over 200 on more than 3 checks, call your primary care physician or diabetic specialist for recommendations. For patients on insulin and oral diabetic medications: If blood sugar is over 200 on 3 checks, call your primary care doctor or diabetic specialist for recommendations. Follow up with primary care provider or grounds/maintenance specialist in 1-2 weeks in order to adjust your changing diabetes treatment requirements. VITAMIN AND MINERAL SUPPLEMENTATION: START at 2 weeks post surgery Vitamin B12 500 mcg pill daily Complete multivitamin w/ minerals One pill twice daily. If a bariatric specific multivitamin, follow the package directions Calcium Calcium citrate 600 mg with vitamin D 400 units twice a day between meals. Iron with vitamin C Take iron as instructed per Handbook - (only if you have anemia, iron deficiency or regular menses) FOLLOW-UP CARE: It is IMPORTANT to see your Primary Care Physician or PCP within 10-14 days after surgery for woundcheck and vital signs check, and to discuss specific medical management as referenced above. You should follow up with your surgeon and dietitian at 3-4 weeks after surgery. You will follow up with the dietitian and Bariatric nurse practitioner at 4, 12, 18, and 24 months,then yearly for life. Pre-op Class Nutrition Outline PRE-OP DIET Follow the pre-op diet for a full 2 weeks before surgery to shrink the liver and make it more pliable for your surgeon Your daily goals: 800-1000 Calories 80-100 grams Carbohydrates 60-80 grams Protein (men or people with a BMI over 50 should aim for 80 grams per day) 48-64 ounces of Hydrating Fluid Plan and log your meals a day in advance. TRACKING FOOD, FLUID, AND SUPPLEMENTS As you build new routines/habits tracking can be very helpful Helps to ensure you are meeting your daily goals and taking required supplements Helps you to determine which foods you may not tolerate or cause dumping syndrome HYDRATING FLUIDS Stay hydrated to prevent dehydration, constipation, and kidney stones To improve tolerance to water, try changing the temperature or adding a sugar- free flavoring Stop drinking 30 minutes before and resume drinking 30 minutes after meals AVOID carbonation, alcohol, caffeine, juice or other sweetened beverages DIET STAGES Stay on the Stage 2 diet for 2 full weeks to allow the stomach to heal and to decrease risk of blockage and food intolerances Once you are 2 full weeks out from surgery, you can advance to Stage 3 VITAMINS AND MINERALS FOR LIFE Start vitamins and minerals 2 weeks after surgery. Your daily supplements: Multivitamin with minerals- 2 pills per day Calcium Citrate- 6080-9316 mg daily total, 500-600 mg taken 2 to 3 times per day (take separate from iron and multivitamin by at least 2 hours) Vitamin B12- 500 mcg daily (sublingual or oral) *Take bariatric supplements as directed on the label PROTEIN SUPPLEMENTS At least 20 g protein per serving (1 scoop or ???[id number]?? ) Under 200 calories for ???[id number]?? Under 170 calories per scoop for powder Under 10 g total carbohydrate Whey or soy based VOMITING/ DUMPING SYNDROME/FOOD INTOLERANCE Causes of vomiting: eating too fast or too much, not chewing to the consistency of applesauce, drinking with meals, and eating foods you do not tolerate Dumping syndrome: occurs when excess carbohydrates or fats are dumped into the small intestine Food intolerance: certain foods may not be well tolerated after surgery and can lead to nausea or vomiting WEIGHT REGAIN It is common to have a little weight rebound a couple of years out from surgery Make sure you are getting enough protein, fluid, and physical activity Emotional eating: Make a list of things other than food that improve your mood Aim to get 7 hours sleep per night Take your supplements daily Attend a support group meeting or schedule a follow-up appointment for extra support TIPS FOR SUCCESS CHEW, FLORENCE, CHEW!!! Cut food into dime size bites Add one new food at a time Eat VERY slowly (Take 20-30 minutes to eat a meal) Measure food & beverages Stay mindful, listen to your body Plan your meals & snacks, shop with a list Survival Tips for the First Month after Surgery Keep it simple. Focus on the positives in your life. Everything will get easier with time. MEDICATION INFORMATION: All bariatric surgery prescriptions, including narcotics and enoxaparin (if needed), will be provided during your inpatient stay. The prescription is typically sent to the [facility] at discharge. Take the medication to prevent ulcer (omeprazole or similar medications) for 3 full months, even ifyou do not have heartburn. START at discharge. You can discontinue after 3 months as long as you are not having any heartburn or reflux. Take ursodiol (Actigall) for 6 full months to prevent gallstones (if you have a gallbladder). STARTat 2 weeks after surgery. Supplements for LIFE: START at 2 weeks after surgery. Take chewable multivitamin with minerals and iron twice a day, vitamin B12 500 mcg daily and calcium citrate 500-600 mg with vitamin D 400 IU twice a day. If you take a bariatric specific multivitamin, follow directions on bottle. Iron with vitamin C should be taken only if you have anemia, iron deficiency or regular periods. If you take medications for depression and/or anxiety, stay on these medications for at least 6 months after surgery. Do not attempt to taper without medical supervision. Counseling is recommended. Avoid narcotic pain medication if possible. Narcotics, such as oxycodone, may cause nausea, constipation and strange dreams. Try acetaminophen (Tylenol) instead. A heating pad/hot water bottle can also provide pain relief. NUTRITION TIPS: You will feel full very quickly with very small amounts of food. This is NORMAL. You are unlikely to feel hungry- this is also normal. Foods may taste different than prior to surgery. You must eat 3 meals a day, despite a lack of hunger. Journal your intake every day so that you know how much protein and fluids you are getting. Add a snack or two if needed to get closer to the goal of 60 grams of protein a day. Reaching goalswill be difficult to achieve in the first month or two after surgery. Make sure to sip rather than gulp water throughout the day (within the 30-30-30 rule). Carry a water bottle everywhere you go. The stage 2 diet must be followed for 14 days. It is BORING, but follow it anyway. It will help your stomach heal faster. Advancing the diet can make you sick. Weight: plateaus are normal, even early after surgery. Don't be discouraged. Avoid weighing yourself daily. You will likely gain some weight in the hospital due to intravenous fluids. Bowels: You may have loose bowels after surgery or be constipated. If you have not had a BM within 2 days, take Celina-Lax or milk of magnesia. Increasing water intake and walking is helpful. Call if no BM after 3 days. Activity: Be active, walking at least 4 times a day to prevent blood clots. After surgery, it is normal to feel tired. Take a nap if you feel tired. Some patients find sleeping in a recliner more comfortable early post-surgery. [facility] Post-Bariatric Surgery Events Calendar Date Time period Activity Comments Day of discharge Start medication to prevent ulcer such as omeprazole. Don't take meds that can cause ulcers such as Advil, Excedrin, Aleve etc for at least 2 months If you took heartburn medication such as Nexium or Prevacid prior to surgery you can take it instead of omeprazole. The prescription is sent at discharge, but is available over the counter. Stay on stage 2 diet for 2 full weeks If ordered, start injections (enoxaparin) Inject twice a day for 10 days to prevent blood clots. home supervisor prescription at [facility] 2 weeks post surgery If you have a gallbladder, start Ursodiol . Take for 6 months to prevent gallstones This prescription is sent at discharge. Call the pharmacy to check pablo first, if >$200, call us to rewrite prescription via [facility] Start stage 3 diet Start vitamins and supplements Visit with PCP to check your overall health, including blood pressure, diabetes, mental health, etc. If you have diabetes or take lots of blood pressure medications and/ or fluid pills, see your PCP at 1 week post-op 3 weeks: visits with surgeon or [facility] and dietitian Bring diet logs and complete list of medications, vitamins/supplements including dose and type (or take photos) 4 weeks Start stage 4 diet This is your meal plan for life 3 months Stop ulcer prevention medication. Taper the doses to every other day for a week prior to ending the prescription If you have heartburn, call your PCP for refill also available over the counter. Do not taper medication if you have Rodgers's esophagus 4 months: Visits with RD /[facility] Bring complete list of medications and supplements including dose and type (or take photos) Have lab work done before your appointment. Bring copies of any labwork that may have been done by your PCP 6.5 months Stop Ursodiol. No refills are needed. [address]/[facility] Bring complete list of medications and supplements including dose and type (or take photos) Have lab work done before your appointment. Bring copies of any labwork that may have been done by your PCP* 2 years and yearly for life visits with RD/SKY LINE YARDER Bring complete list of medications and supplements including dose and type (or take photos) Have lab work done before your appointment. Bring copies of any labwork that may have been done by your PCP Abbreviations: RD: registered dietitian. SKY LINE YARDER: nurse practitioner documented in this encounter Progress Notes * Dena Alexander APRN - 05/07/2024 1:00 PM EDT BARIATRIC SURGERY PROGRAM [place], [place] [address] Reason for visit: [facility] for up coming bariatric surgery Vianney attended a comprehensive group pre-operative class today, which included discussion of preand post operative instructions included in the [facility] Education Handbook. The nutrition component of the class was taught by the BSP RD. Patient completed health update form No new medical issues/ED visit. Medications/allergies are reviewed, otherwise today's visit was group visit. Surgery info: Patient is scheduled for laparoscopic takedown of Addie and Chandler-en-Y gastric bypasson 05/29/[address] Damon. Pre-Bariatric Surgery Obesity related medical issues: Problem Baseline issue if checked Comments Diabetes/prediabetes/insulin resistance [x] On metformin for wt loss. Metabolic syndrome or PCOS [] HTN [] GERD [x] Hx of Rodgers's, last EGD 05/2023, on PPI Hyperlipidemia [x] Not requiring medication YAHIR [] Musculoskeletal issues [x] Ankle, knee Liver Disease [x] Other [x] PTSD, depression/anxiety Post Bariatric Surgery Medications: Extended VTE prophylaxis post surgery Not indicated. Ursodiol gallstone prophylaxis Not indicated, s/p cholecystectomy. PPI ulcer prophylaxis Indicated, to be prescribed at discharge. Contraception s/p tubal ligation. Visit date Wt (lbs) BMI HT Highest WT 256 - Pre-op 12/20/23 256 45.5 5'3 03/06/24 242 42.8 Post-op WT BMI %EBW lost Preop labs:labs completed. Vit D deficiency pre op Prescriptions provided at today's visit: none Bariatric Surgery Program Pathway and review of status with the requirements of the Bariatric Surgery Program 1. Education: Pt previously attended a Introduction to the [facility] B[facility] seminar,a two hour meeting that provides a program overview as well as expectations. The [facility] B[facility] Educational seminar requirement has been met. The BSP Educational Handbook was providedat visit #1. 2. Pre-operative programmatic evaluations have been done, as noted in previous pathway review. 3. Bariatric Surgery Program evaluations with the surgeon and dietitian have taken place. Vianney has been approved to proceed with surgery by surgeon. 6. Surgical consultation has taken place Next steps in pathway: During hospitalization for bariatric surgery, a standard bariatric surgery order set is followed. Routine post-operative follow up with labwork is done at months 1,4,12 and 24, yearly thereafter, and PRN. High risk patients are followed more frequently. Some of the topics reviewed during group discussion today included: day of surgery and post-op routine care/ locations: Admissions/SDP/PACU//3/2 [place] units medications that increase the risk of bleeding including NSAIDs and anticoagulants to be avoided per guidelines pre and post-operatively DVT/VTE prevention and signs of DVT/PE. Inpatient management for VTE prevention: venodynes, ambulation, Enoxaparin 40 units BID during inpatient stay. Indications for extended Enoxaparin 10 days post discharge: A. patients with BMI >60 or prior VTE OR B. 2 or more of the following: age >50, BMI >50, male gender, sleep apnea, varicose veins, venous insufficiency, history of oral contraceptive or hormone or post-menopausal hormone replacement use within 30 days of surgery, and recent smoking guidelines for patients treated with oral anticoagulants per [facility] diabetes and hypertension monitoring during pre-op diet and post-operatively. Diuretic therapy is held to avoid risk of dehydration unless patient is symptomatic. signs and symptoms of infection as well as emergency signs and symptoms were reviewed common post-operative complaints management of sleep apnea during hospitalization and post operatively. The importance of post-operative follow-up with Sleep Center after weight loss was stressed. recommendations for psychiatric medications: should continue uninterrupted after surgery activity post surgery/ return to work recommendations routine BSP post-operative follow-up: 3 weeks. 4 months, 12 months and yearly for LIFE routine Primary Care post-operative follow up: at 10-14 days after surgery to monitor chronic health problems such as diabetes and hypertension, since the requirement for antihypertensive and diabetic medications may decrease or be discontinued Reviewed B-STOP study information Patient advised to contact our office if they develop COVID sx or test positive for COVID. Discussed increased risk of respiratory complications s/p COVID infection. A preliminary copy of the discharge instructions was provided, which is also available in the patient handbook. Vianney was given the opportunity to ask questions, and all questions were answered. Time spent in counselin minutes * Belinda Heath RD - 05/07/2024 1:00 PM EDT BARIATRIC SURGERY PROGRAM NUTRITION EDUCATION 2nd Pre-Operative Visit Shared Medical Appointment Vianney Cordero attended a 2 hour shared medical appointment today with the bariatric surgery program dietitian and nurse practitioner. Ms. Mao Cordero is a female with morbid obesity who has been referred for nutrition evaluation and diet instruction in anticipation of bariatric surgery. Previous conservative attempts at weight lossthrough dieting have been unsuccessful over the shelter. Advised patient that bariatric surgery is a weight loss tool not a solution; and ultimately weight loss will be achieved through proper eating and exercise habits. Patient was given a copy of the program handbook at the initial appointment which includes specific information on all nutrition recommendations and guidelines. Pt instructed on importance of following the Pre-operative Surgical Diet. Failure to do so may result in poor pre-surgical weight loss and may result in surgery not being performed. Vianney was given the opportunity to ask questions and all questions were answered. She was also given contact information for further nutrition questions. Nutrition Topics Covered at Today's Appointment: Pre-operative Surgical Diet Purpose of diet Appropriate foods Protein goals Carbohydrate goals Calorie goals Keeping a food log Hydration and Appropriate Beverages Post-Operative Diets (Stages I-IV) Importance of following diet stages Appropriate foods Sample Menus Vitamin/Mineral Supplementation Common Food Intolerances Dumping Syndrome Sugar Alcohols Physical Activity Weight Regain Habits of Successful Bariatric Surgery Patients The appointment consisted of 60 minutes of group education and counseling. documented in this encounter Plan of Treatment Upcoming Encounters Date Type Department Care Team (Late st Contact Info) Description 12/31/2024 10:00 AM EST Office [place] [address] Mercy Amanda MD [facility] DR [facility] [address] 04/01/2025 2:00 PM EDT Office [place] [id number] Erum Szymanski MD [facility] [place] [address] documented as of this encounter Goals Goal [...] (would rather have you choose regular bread/ palestinian muffin, etc. - whole wheat if possible- [...] as of this encounter Visit Diagnoses Diagnosis Encounter for pre-bariatric surgery counseling and education documented in this encounter Care Teams Turntable Worker Relationship Specialty Start Date End Date Sonido Cordoba PA [address] [place] [address] PCP - General Family Medicine 07/06/20 documented as of this encounter
--- OUTSIDE RECORDS SUMMARY | 2024-10-16 17:36 | XMS_ITS | Encounter Summary ---
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 Social History Tobacco Use Types Packs/Day Years [...] Sign Reading Time Taken Comments Blood Pressure 140/78 04/02/2024 2:22 PM EDT Pulse 89 04/02/2024 2:22 PM EDT Temperature - - Respiratory Rate - - Oxygen Saturation - - Inhaled Oxygen Concentration - - Weight 110.7 kg (244 lb) 04/02/2024 2:22 PM EDT Height 160.2 cm (5' 3.07) 04/02/2024 2:22 PM ED T Body Mass Index 43.13 04/02/2024 2:22 PM EDT documented in this encounter Patient Instructions * Patient Instructions* Erum Szymanski MD - 04/02/2024 2:00 PM EDT Recommend Continue pantoprazole 40mg twice a day, 30 min prior to meals Weight loss surgery - RYGB as planned EGD 3 years from last (May 2026) Colonoscopy 5 years from last (May 2028) Follow-up in: 12 months, sooner if needed documented in this encounter Progress Notes * Erum Szymanski MD - 04/02/2024 2:00 PM EDT [facility] Section of Gastroenterology and Hepatology Follow-Up Visit PCP: WANDY Aguilera HPI This is a 48 y.o. female with with obesity following up for GERD and RUQ pain. 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 GI PROBLEMS: 1. GERD with long segment non-dysplastic Rodgers's, h/o Tyesha for paraesophageal hernia: Throat burning, heartburn. Previously failed pepcid, prilosec, gaviscon; tums caused stones but did help heartburn Pantoprazole 40mg BID helpful but response incomplete Weight loss - > has been helpful, plan to proceed with Bariatric surgery 2. H pylori gastritis Completed triple therapy in 2018. Stool testing still positive per report. Re-treated with quadruple rx. Stool testing neg February 2019. 3. Chronic diarrhea 2/2 to lactose intolerance Son with celiac Neg TTG IgA and normal duodenal bx 2017 4. Lactose intolerance 5. Fatty liver Fibroscan F0-1 6. Adenomatous colon polyp (1 in 2018) Mom with CRC > 60 yo Last colonoscopy 2018 7. RUQ pain - had some features of abdominal wall pain; there was a dyspeptic post-prandial component. Worsened and was found to be biliary despite neg ultrasound and HIDA scan. Improved s/p CCY 8. Gas/bloat 9. Belching --> Hiccup: Sx mostly occur in the afternoon, not related to eating, while working. Work is at [employer]. 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 This is the time she is most active (apart from her morning walk when she doesn't have symptoms). Hiccup burps are the most uncomfortable. Associated with epigastric bloating Tried baclofen, made her constipated, did not help the belching but could only tolerate it for a week Has been on trazodone in the past - too sleepy Had lost some weight, no change Interval follow-up No RUQ pain since CCY. Changed her diet. Sx improved. No sweets or soda Allergic to ketchup - rash No heartburn or acid reflux. No hoarseness. On pantoprazole 40mg BID 1 BM/day, variable consistency No bleeding Review of Systems Negative except as above Diagnostic studies: 1. US abd limited, 03/15/16 (RUQ pain, eval for GB disease): There is mild hepatomegaly. The liver parenchyma has a normal echotexture. No intra- hepatic or extra-hepatic bile duct dilation. There is a 0.5cm hypoechoic liver lesion which likely represents a cyst and is unchanged from the prior exam.There are no gallstones and the gallbladder wall appears normal.There is medullary nephrocalcinosis. No hydronephrosis. the differential diagnosis includes: renal tubular acidosis, medullary nephrocalcinosis and any cause of hypercaluria. 2. EGD 09/24/17 (f/u heartburn, Rodgers's): - Normal examined duodenum. Normal stomach. Esophageal mucosal changes suggestive of long-segment Rodgers's esophagus. Esophagus bx: Specialized metaplastic columnar mucosa consistent with Rodgers's esophagus. No dysplasia is seen. . Normal upper third ofesophagus. Recommendation: Continue lifestyle modifications for GERD (light evening meals; low fat dinner; no evening snacks,elevate head of bed 3 inches) and PPI therapy. 3. Stool studies, 04/23/18 [facility]: calprotectin nl. Giardia neg. Cryptosporidium neg. Culture neg. C diff neg. 4. US Abd 05/01/18: The liver is large and mildly increased in echogenicity diffusely suggesting steatosis. There is a 5 mm cyst in the left lobe but no solid hepatic mass is seen. The gallbladder andbiliary ductal system appear normal. Medullary nephrocalcinosis. 5. Labs, 04/17/18: CBC nl. CMP essentially nl. CRP 8.0 (<4.9). TTG IgA neg, IgA nl. TSH nl. 6. I met her in 2018 for her EGD and colonoscopy which were being performed for a history of Rodgers's, RUQ and chronic diarrhea. Found H pylori gastritis, normal duodenum (+ FHx of celiac in son) and non-dysplastic long segment Rodgers's as well as a very small superficial DU. Colonoscopy with adenomatous colon polyps (+ hyperplastic) and architectural changes in the colon that were non-specificpostinflammatory changes or inactive idiopathic inflammatory bowel disease. 7. Stool testing 11/22/18: stool H pylori antigen positive 02/25/19: Stool H pylori Ag negative. 8. Labs 02/20/19: Hep B sAg neg, Hep C Ab neg. 9. RUQ US 03/19/19: Diffusely increased hepatic parenchymal echotexture with loss of portal triads without suspicious focal lesion with areas of focal fatty sparing in keeping with diffuse fatty infiltration. 5 mm simple left liver lobe cyst. Normal gallbladder without sludge nor cholelithiasis. Normal biliary tree. 10. EGD and Colonoscopy 08/[address] Ji repeated for sore throat with swallowing, dyspepsia, gas/bloat. Normal colon biopsies. Non-dysplastic Rodgers's again found. 11. HIDA scan 03/2020 normal 12. EGD 05/2021: long segment Rodgers's 28 to 35 cm. Rodgers's no dysplasia TYESHA intact 13. MOYA pH study 2020 [place] 1.5 on MOYA test on BID PPI - 40mg pantoprazole BID. No association between symptoms of heartburn and acid reflux 14. EGD 05/2023 long segment Rodgers's, no dysplasia 15. 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.21 Hiatal hernia K44.9 Pain in left shoulder M25.512 Right knee pain M25.561 Hx of tonsillectomy Z90.89 History of dilation and curettage Z98.890 History of Tyesha fundoplication 06/2015 Z98.890 Left ankle pain M25.572 Peroneal tendon tear, right, subsequent encounter S86.311D Fatty liver K76.0 Anxiety F41.9 Depression F32.A Post-traumatic stress disorder, unspecified F43.10 Kidney stone N20.0 BMI 45.0-49.9, adult Z68.42 Insulin resistance E88.819 Elevated ferritin R79.89 Elevated LDL cholesterol level E78.00 S/P laparoscopic cholecystectomy Z90.49 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 K22.70 Gastroesophageal reflux disease with esophagitis K21.00 Current Outpatient Medications: triamcinolone (Kenalog) 0.1 % Cream, Apply topically 2 times daily. Start 03/26/2024, Disp: 30 g, Rfl: 0 Phentermine (Lomaira) 8 mg tablet, Take 1 tablet by mouth 2 times daily., Disp: 60 tablet, Rfl: 1 pantoprazole EC (Protonix) [address] tablet, Take 1 tablet by mouth 2 times daily. (30 minutes before meals), Disp: 180 tablet, Rfl: 3 metFORMIN XR (Glucophage XR) 500 mg ER 24 hr tablet, take 4 tablets by mouth daily with dinner, Disp: 360 tablet, Rfl: 1 cyclobenzaprine (Flexeril) 10 mg Tablet, Take 10 mg by mouth 3 times daily as needed for Muscle spasms., Disp: , Rfl: acetaminophen (Tylenol) 500 mg Tablet, Take 1,000 mg by mouth every 6 hours as needed for Pain., Disp: , Rfl: meclizine (ANTIVERT) 12.5 mg Tablet, Take 12.5 mg by mouth 3 times daily as needed., Disp: , Rfl: Allergies Allergen Reactions Ketchup Rash Lactose Oxycodone Nausea And Vomiting Shellfish Containing Products Ibuprofen Interacts with protonix PCP said she shouldn't take it Past Medical History: Diagnosis Date PTSD (post-traumatic stress disorder) Past Surgical History: Procedure Laterality Date CHOLECYSTECTOMY DILATION AND CURETTAGE OF UTERUS 11/05/1994 PRO COLONOSCOPY, BIOPSY N/A 08/21/2018 COLONOSCOPY FLEXIBLE, WITH BX (WRVU 3.66) performed by Erum Szymanski MD at [facility] ENDOSCOPY PRO COLONOSCOPY, BIOPSY N/A 09/04/2019 COLONOSCOPY FLEXIBLE, WITH BX (WRVU 3.66) performed by Steve Ji MD at [facility] ENDOSCOPY PRO COLONOSCOPY, DIAGNOSTIC N/A 09/04/2019 COLONOSCOPY, DIAGNOSTIC performed by Steve Ji MD at [facility] ENDOSCOPY PRO COLONOSCOPY, DIAGNOSTIC N/A 06/01/2023 COLONOSCOPY,SCREENING (WRVU 3.26) performed by Steve Ji MD at [facility] ENDOSCOPY PRO COLONOSCOPY, REMV LESN, SNARE N/A 08/21/2018 COLONOSCOPY, POLYPECTOMY, REMOVAL LESION BY SNARE (WRVU 4.67) performed by Erum Szymanski MD at [facility] ENDOSCOPY PRO CYSTO W URETEROSCOPY &/OR PYELOSCOPY, DX Right 06/01/2015 CYSTOURETEROSCOPY, DIAGNOSTIC performed by Darius Nuñez Jr., MD at [facility] MAIN OR PRO CYSTOSCOPY, INSERT URETERAL STENT Right 06/01/2015 CYSTO, STENT PLACEMENT performed by Darius Nuñez Jr., MD at [facility] MAIN OR PRO LAPAROSCOPY SURG ESOPHAGOGASTRIC FUNDOPLASTY N/A 04/05/2015 LAPAROSCOPIC TYESHA FUNDOPLASTY performed by Valentín Moura MD at [facility] MAIN OR PRO PERCUT DILATN RENAL TRACT Right 06/01/2015 PERCUTANEOUS INTRO GUIDE WIRE TO ACCESS RENAL PELVIS,AND OR URETER, W\DILATION performed by Darius Nuñez Jr., MD at [facility] MAIN OR PRO PERQ NL/PL LITHOTRIPSY SIMPLE UP TO 2 CM 1 LOCATION Right 06/01/2015 NEPHROLITHOTOMY, ([facility]) PERCUTANEOUS performed by Darius Nuñez Jr., MD at [facility] MAIN OR PRO REPAIR PERONEAL TENDONS Right 08/12/2020 PERONEAL TENDON REPAIR (WRVU 7.35) performed by Mani Jefferson MD at [facility] OSC PRO UPPER GI ENDOSCOPY, BIOPSY N/A 01/27/2015 EGD WITH BIOPSY performed by Brandt Barlow MD at [facility] ENDOSCOPY PRO UPPER GI ENDOSCOPY, BIOPSY N/A 02/28/2016 EGD WITH BIOPSY performed by Brandt Barlow MD at [facility] ENDOSCOPY PRO UPPER GI ENDOSCOPY, BIOPSY N/A 09/04/2016 EGD WITH BIOPSY performed by Brandt Barlow MD at [facility] ENDOSCOPY PRO UPPER GI ENDOSCOPY, BIOPSY N/A 09/24/2017 EGD WITH BIOPSY (WRVU 2.49) performed by Brandt Barlow MD at [facility] ENDOSCOPY PRO UPPER GI ENDOSCOPY, BIOPSY N/A 08/21/2018 EGD WITH BIOPSY (WRVU 2.49) performed by Erum Szymanski MD at [facility] ENDOSCOPY PRO UPPER GI ENDOSCOPY, BIOPSY N/A 09/04/2019 UPPER GASTROINTESTINAL ENDOSCOPY,WITH BIOPSY SINGLE OR MULTIPLE (WRVU 2.49) performed by Steve Ji MD at [facility] ENDOSCOPY PRO UPPER GI ENDOSCOPY, BIOPSY N/A 05/24/2021 EGD WITH BIOPSY (WRVU 2.49) performed by Kathy Carnes MD at [facility] ENDOSCOPY PRO UPPER GI ENDOSCOPY, BIOPSY N/A 06/01/2023 EGD WITH BIOPSY (WRVU 2.39) performed by Steve Ji MD at [facility] ENDOSCOPY PRO UPPER GI ENDOSCOPY, DIAGNOSTIC N/A 09/04/2019 EGD, UPPER GI ENDOSCOPY performed by Steve Ji MD at [facility] ENDOSCOPY TONSILLECTOMY Social History Socioeconomic History Marital status: Spouse name: Not on file Number of children: Not on file Years of education: Not on file Highest education level: Not on file Occupational History Not on file Tobacco Use Smoking status: Former Current packs/day: 0.00 Average packs/day: 0.5 packs/day for 6.0 years (3.0 ttl pk-yrs) Types: Cigarettes Start date: 01/25/1991 Quit date: 01/25/1997 Years since quittin.2 Smokeless tobacco: Never Vaping Use Vaping status: Never Used Substance and Sexual Activity Alcohol use: Not Currently Comment: 1X/quarter Drug use: No Sexual activity: Yes Partners: Male control/protection: Surgical Other Topics Concern Not on file Social History Narrative Not on file Social Determinants of Health Financial Resource Strain: Not on file Food Insecurity: Not on file Transportation Needs: Not on file Physical Activity: Not on file Intimate Partner Violence: Not on file Housing Stability: Not on file Family History Problem Relation Age of Onset Diabetes Mother Diabetes Maternal Grandmother Diabetes Maternal Grandfather Physical Exam BP 140/78 (BP Location (NBP): Right arm, Patient Position: Sitting, BP Cuff Sizes: Large Adult (32-43 cm)) Pulse 89 Ht 160.2 cm (5' 3.07) Wt 110.7 kg (244 lb) BMI 43.13 kg/m?? Constitutional: Well appearing, NAD, AAO x 3 GI: soft, NT, ND PERTINENT LABS AND IMAGING: As noted above Impression: 48 y.o. female with obesity following up for GERD with a hx of prior TYESHA in 2015 andlong segment (7 cm) non-dysplastic Rodgers's. Doing really well! Ready for bariatric surgery, planned RYGB. Offered my support. No GERD sx currently likely 2/2 to dietary changes and some degree of weight loss. Rodgers's stable. Hopeful will eventually able to taper down her PPI, but will continue current dose for now. Recommend Continue pantoprazole 40mg twice a day, 30 min prior to meals Weight loss surgery - RYGB as planned EGD 3 years from last (May 2026) Colonoscopy 5 years from last (May 2028) Follow-up in: 12 months, sooner if needed The risks, benefits and alternatives were discussed with the patient who understands and agrees with above. Erum Szymanski MD 04/02/24 Erum Szymanski MD [employer] Adjustercylinder inspector Section of Gastroenterology and Hepatology [facility] [email or web address] ([email or web address]) documented in this encounter Plan of Treatment Upcoming Encounters Date Type Department Care Team (Late st Contact Info) Description 12/31/2024 10:00 AM EST Office [place] [address] Mercy Amanda MD [facility] [address] [facility] [address] 04/01/2025 2:00 PM EDT Office [place] [address] Erum Szymanski MD [facility] [address] documented as of this encounter Goals Goal [...] a priority: - Eggs - Cheese - [place] yogurt / cottage cheese - meat - fish - nuts/seeds - protein shake or bar Start with the protein, can choose to add other foods (would rather have you choose regular bread/ ugandan muffin, etc. - whole wheat if possible- [...] as of this encounter Visit Diagnoses Diagnosis Gastroesophageal reflux disease without esophagitis Esophageal reflux 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 Rodgers's esophagus documented in this encounter Care Teams Refrigeration Supervisor Relationship Specialty Start Date End Date Sonido Cordoba PA [address] [place] [address] PCP - General Family Medicine 07/06/20 documented as of this encounter
--- OUTSIDE RECORDS SUMMARY | 2024-10-16 17:36 | XMS_ITS | Encounter Summary ---
[place] [address] Care Team Providers Care Economic Research Analyst Name Role Phone Sonido Cordoba Primary Care Provider [phone] Reason for Referral * Consultation (Routine) - Authorized Specialty Diagnoses / Procedures Referred By Aric madrigal Referred To Contact Orthopaedics Diagnoses Trigger thumb, left thumb Sonido Cordoba PA [address] [place] [address] [facility] [address] [place] [phone] Referral ID Status Reason Start Date Expiration Date Visits Requested Visits Authorized [id number] Authorized Consult, Test & Treat PCP Updated and/or Approved 06/09/2024 12/10/2024 6 6 Encounter Details Date Type Department Care Team (Latest Contact Info) Description 06/19/2024 Transcribe Orders eDH Incoming Referrals [phone] Sonido Cordoba PA [address] [place], [place] [id number] Trigger thumb, left thumb Social History Tobacco Use Types Packs/Day Years [...] AM [place] [address] Mercy Amanda MD [facility] [address] [facility] [address] 04/01/2025 2:00 PM EDT Office [place] [address] Erum Szymanski MD [facility] [address] Scheduled Referrals Name Type Priority Associated Diagnoses Order Schedule Referral to Orthopaedics Outpatient Referral Routine Trigger thumb, left thumb Ordered: 06/19/2024 documented as of this encounter Goals Goal [...] a priority: - Eggs - Cheese - [place] yogurt / cottage cheese - meat - fish - nuts/seeds - protein shake or bar Start with the protein, can choose to add other foods (would rather have you choose regular bread/ cook islander muffin, etc. - whole wheat if possible- [...] as of this encounter Visit Diagnoses Diagnosis Trigger thumb, left thumb documented in this encounter Care Teams Economic Research Analyst Relationship Specialty Start Date End Date Sonido Cordoba PA [address] [place] [address] PCP - General Family Medicine 07/06/20 documented as of this encounter
--- OUTSIDE RECORDS SUMMARY | 2024-10-16 17:36 | XMS_ITS | Encounter Summary ---
Author Organization [facility] [place] [address] Care Team Providers Care Reproducer Name Role Phone Sonido Cordoba Primary Care Provider [phone]- [phone] Reason for Visit * Reason Comments Follow-up Encounter Details Date Type Department Care Team (Late st Contact Info) Description 06/20/2024 12:30 PM EDT Office Visit [place] [address] Dena Alexander, STRENGTH AND CONDITIONING COACH [facility] [place] [address] Belinda Heath, RD [facility] [place] [address] S/P gastric bypass; Intestinal malabsorption, unspecified type; Disorder of iron metabolism Social History Tobacco Use Types Packs/Day Years Used Date Smoking Tobacco: Former Cigarettes 0.5 6 0 01/25/1991 - 01/25/1997 Smokeless Tobacco: Never Alcohol Use Standard Drinks/Week Comments Not Currently 0 (1 standard drink = 0.6 oz pur e alcohol) 1X/quarter [facility] Inpatient Questions Answer Date Recorded Does Anyone [...] Sign Reading Time Taken Comments Blood Pressure 132/72 06/20/2024 12:40 PM EDT Pulse 70 06/20/2024 12:40 PM EDT Temperature - - Respiratory Rate 18 06/20/2024 12:40 PM EDT Oxygen Saturation 100% 06/20/2024 12:40 PM EDT Inhaled Oxygen Concentration - - Weight 101.6 kg (224 lb) 06/20/2024 12:40 PM EDT Height - - Body Mass Index 38.45 05/29/2024 6:20 AM EDT documented in this encounter Patient Instructions * Patient Instructions* Dena Alexander, TEAGAN - 06/20/2024 12:30 PM EDT Bariatric Surgery Program First Post-operative Follow up visit Contact information: [facility] field support engineer: Nichelle: [phone] and Silva [phone] Dietitians: [phone] Surgeons/ nurse practitioners: [phone] Nurse line: [phone] Dear Vianney, Thank you for following up with the Bariatric Surgery Program at [facility]. Please review your medical note from today's visit for specific information we discussed. Next follow up visit: at 4 months post-op. Testing: Labwork will be done at your 4 month post-op appointment. The lab orders will be in the system before your visit. The main lab is at [facility] and does not require an appointment. The hours are Sunday through Sunday, 6:45 am to 6:00 pm. Here's the link to [facility] Lab hours and locations, in case one of the other locations is more convenient for you: [email or web address] If you have labwork done by your primary day care home provider before that date, please have a copy sent to the Bariatric Surgery Program. Post surgery Medications: 1. Continue medication to prevent ulcer (likely a PPI like omeprazole) until you are at least 3 months post surgery, or as indicated by your primary care doctor. 2. If you have a gallbladder, continue to take ursodiol for a total of 6 months after surgery to prevent gallstones from forming, and to shrink any gallstones that may be present. Vitamins/Nutrition/Activity Recommendations: Please see your visit note for personalized recommendations General Supplement recommendations: Multivitamins with minerals twice daily- needs [...] Blow dry area on low setting with nursing program chair. Apply absorbent powder such as Gold [place] and [...] control for women of child bearing age: control is recommended for at least 18-24 months after surgery. f non-prescribed drugs and treet drugs is unsafe Anti-inflammatory medications (NSAIDs) such as Ibuprofen (Advil), Aleve (Naproxen), Excedrin, Erica-Mackay should be avoided for at least the first 2 months after surgery. After that they should be used sparingly very sparingly as they increase the risk of ulcer and bleeding. A bone mineral density scan (DEXA) is recommended every 2 years after bariatric surgery. Please schedule this study through your primary care provider's office. Hair Loss: is associated with rapid [...] be increased with higher than predicted weight loss. Potential lifetime risks of sleeve gastrectomy include developed heartburn or severe reflux. Call us: If you have concerns. If you have unexplained abdominal pain if you see blood in your stool or vomit blood If you have prolonged vomiting Post Surgery Support Group: Our post surgery support group meets at [facility] on the sunday of every month from 1:00 PM-2:00 PM, call to sign up! Nutrition and Activity apps- Baritastic, My Fitness Pal, Lose It, My Plate Internet resources: www.Huy [place] wwwStylefie www.Secret SpaceeaTesseract Interactive www.Pricing Assistant/blog [facility] facebook page: [email or web address]://www.facebook.[email or web address]/[email or web address] Books & Magazines: - Recipes for Life After Weight Loss Surgery by Cassy Lux - Shrink Yourself by Dr Andrew Westbrook - Eating Well - www.i2O Water - Cooking Light- www.cookinglight.[employer] Anxiety: The Happiness Trap by Nabil Rios The Mindfulness and acceptance workbook for anxiety By Da Monge. Mindful eating: What are you Hungry For? By Adi Forrest The Mindful Diet by Merari Marina and the [facility] group. Emotional eating: End Emotional Eating by Belinda Osorio Calming the Emotional Storm Chanell Brownlee documented in this encounter Progress Notes * Dena Alexander APRN - 06/20/2024 12:30 PM EDT [place] [address] Reason for visit: Bariatric Surgery Post Op Check Surgery Info: s/p laparoscopic takedown of Addie and Barbi-en-Y gastric bypass on 05/29/[address] Damon. Pathology- - Segment of stomach lined with unremarkable fundic gland mucosa. Subjective: Vianney Cordero is s/p the above procedures, post operative course has been going ok. She did advance her diet sooner than recommended with macedonian muffin which didn't go well. She is experiencing some epigastric discomfort, which she thinks is happening if she eats too fast. Still learning what foods work better and pacing eating/drinking. Trying to make sure she is meeting protein/fluid requirements, but not yet meeting goals daily. Port sites are healing. Current Supplements: Hasn't started yet- ordered supplements- still waiting for them to arrive Bariatric fusion 2 a day Multi-vitamin with minerals (without iron) will switch to one with iron Calcium citrate 500 mg with Vit D 400 IU twice daily, Primary care post op follow up visit: Pt was seen by PCP on 06/09/24 No ED visits/unplanned medical visits since surgery. 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 Ursodiol gallstone prophylaxis Not indicated, s/p cholecystectomy. PPI ulcer prophylaxis taking Contraception s/p tubal ligation. BSTOP - Narcotic Post op Pain Management: Narcotic prescribed? Yes Used? N/A How many doses used? 3 Did patient dispose of narcotic? Yes How did patient dispose of narcotic? Returned to pharmacy or acceptable drop off location ROS: No Fever, chills, nausea, vomiting. Has not required anti-emetics No Chest pain, SOB or palpitations No bladder concerns or changes. BM are daily no trouble with colace daily Energy level is improving Appetite : as expected, trying to meet protein/fluid requirements Activity level : doing chores, painting her house Social history/support. 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 Partner is supportive and is present at today's visit. Health Habits: Tobacco: None. ETOH: No alcohol since before surgery..(1-2 drinks a week) NSAID use:None. 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 Dietary history/ exericse/ activity level: See dietitian note from today's visit for complete dietary evaluation. Visit date Wt (lbs) BMI HT Highest WT 256 - Pre-op 12/20/23 256 45.5 5'3 03/06/24 242 42.8 Post-op WT BMI %EBW lost 06/20/24 224 38.5 28% Objective: BP 132/72 Pulse 70 Resp 18 Wt 101.6 kg (224 lb) LMP (LMP Unknown) SpO2 100% BMI 38.45 kg/m?? Physical Exam General: Alert, pleasant, NAD, appears well. Abdomen: Soft, non-distended, non-tender. trochar sites are healing nicely. No heat, tenderness or drainage. Resp: No increased work of breathing. Speaking in full sentences. No cough/wheeze witnessed. Skin: excess skin noted over abdomen. Skin is warm and dry. No rash noted on exam today. Fading ecchymosis noted. Psychiatric: Normal mood and affect. Appropriate eye contact. Assessment: Vianney Cordero is s/p above procedures, with uneventful early post-operative course. Obesity related co-morbidities are improved/stable overall. Plan: Continue PPI therapy for ulcer formation and avoid NSAIDs. She has hx of mix's so will continuePPI intermediate. Bowel Function: reviewed bowel regimen and importance of movement and fluids. Recommend BM at leastevery other day. Consider miralax. Call if struggling. control: advised that control is recommended for at least 18-24 months post-operatively. S/p tubal Advised that hair loss due to rapid weight loss is typical 3-6 months post- surgery and should improve with time and adequate protein/ calorie intake. Avoid ETOH until 6-12 months post-operatively, and then should be used in small amounts Discussion re: importance of chewing food completely, taking time to eat, trying to avoid more complex foods at this time, food/fluids etc. Avoid advancing diet sooner than recommended. See park activities coordinator note re: recommendations regarding vitamin and mineral supplementation, fluid intake and exercise. Return to work note given for 07/08/24 RTC in 3 months for next BSP follow up visit, with labs(ordered). Call/rtc sooner prn with questions/concerns or unexplained abdominal pain, prolonged nausea, vomiting or inability to hydrate Bariatric Program Summary report is availabe for patient's review via e-DH Dena Alexander APRN [facility] Bariatric Surgery Program RECOMMENDED BARIATRIC SURGERY PROGRAM POSTOPERATIVE FOLLOW-UP: Follow up: done at 4, 12 and 24 months, and yearly thereafter. High risk patients are evaluated on a more frequent basis. *Supplement recommendations: Multivitamin with minerals twice a day, B12 500 mcg once a day, calcium citrate 600 mg/400 units vitamin D twice a day, iron (ferrous fumarate, carbonyl iron taken with vitamin C 250 mg once a day) for menstruating females or those with BALJIT. Labwork: Hemogram, ferritin, iron (transferrin) saturation, iron, folate, B1, B12, D (25 hydroxy only), Intact PTH and comprehensive metabolic profile at 4, 12 and 24 months, and yearly. If labwork is done by the primary day care home provider: please send a copy to the Bariatric Surgery Program, General Surgery Clinic, [facility], or fax [phone] * Belinda Heath, RD - 06/20/2024 12:30 PM EDT Bariatric Nutrition Follow-up Visit Topics Discussed/Patient Concerns: No specific dietary concerns. 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 3 children. Pt lives with 2 sons, granddaughter (pt has guardianship). Has SO, does not live with him. Social support: SO, children, mom, sister in [place] Hobbies: walking, hiking, fishing (allergy so can't touch the fish), spending time w family and friends Vision at 2 years post-op: improved quality of life, easier time climbing [employer], has a lot of trails she'd like [...] 06/20/24 224# 28% 38.5 3 weeks post-op 4 months post-op [place] Body Weight (based on BMI of 25): 141 30-70% Excess Weight Loss: 176-222#; 50% Excess Weight Loss: 199# MEDICATIONS: Vitamin/Mineral Supplements (reported by patient): ordered them and is waiting for them to come in Supplement Type Brand/Form Dosage/Amount Frequency Comments Multivitamin Bariatric Fusion no iron 2 pill Calcium Needs to buy. Vitamin B12 Iron Vitamin D3 Food Allergies/Intolerances: none Tracking Intake: Pen and paper- eating 1/2 c protein and 1/4 c of potato (doesn't always finish) Daily Oral Intake: no snacks or protein drinks. Occ popsicles. Breakfast Poached egg and 1/2 Cameroonian muffin AM Snack Lunch Ground turkey PM Snack Dinner Ground beef and potato HS Snack Protein- grams/day: 50-60 g Hydrating fluids - oz/day: 32-36 oz water or CL Soda: ETOH: Caffeine: Meals per day: 3 Other: Feels full/satisfied after eating: yes Spends at least 20 minutes eating each meal: Vomiting/ regurgitation: none. Nausea: none Constipation/diarrhea: taking colace. BM daily Exercise: energy is good. Painting her apt. ASSESSMENT: Patient s/p bariatric surgery with 28% EWL. She is tolerating the diet. Just shy of meeting proteinand fluid goals but working on it. Reviewed supplement recommendations. PLAN: Evaluation by Dena Alexander APRN today. Provided support/encouragement and reinforced importance of meeting nutritional goals. Continue Stage 3 diet. Advance to Stage 4 diet starting 5 weeks post-op. Continue tracking, especially protein intake- goal 60 g per day. You'll likely need to add in at least 1/2 protein drink daily. Keep sipping fluid with the goal of 48 oz fluid per day Reviewed vitamin and mineral supplement recommendations. Multivitamin with minerals- Bariatric Multivitamin 2 pills per day Once you finish your current supply, switch to a multivitamin that contains iron. Calcium citrate 500-600 mg with vitamin D twice daily. (2 pills twice per day or 1 chew twice daily) Follow-up in 3 months, sooner if requested. documented in this encounter Plan of Treatment Upcoming Encounters Date Type Department Care Team (Late st Contact Info) Description 12/31/2024 10:00 AM EST Office Visit [place] [address] Mercy Amanda MD [facility] DR [place] [address] 04/01/2025 2:00 PM EDT Office Visit [place] [phone] Erum Szymanski MD [facility] [place] [address] documented as of this encounter Goals Goal [...] a priority: - Eggs - Cheese - English yogurt / cottage cheese - meat - fish - nuts/seeds - protein shake or bar Start with the protein, can choose to add other foods (would rather have you choose regular bread/ macedonian muffin, etc. - whole wheat if possible- [...] more details documented as of this encounter Results * Vitamin D, 25-Hydroxy (09/10/2024 7:23 AM EST) Vitamin D Total 25 OH 29 21 - 100 ng/ml 09/10/2024 8:19 AM EST [facility] Vitamin D Total 25 OH Interp Insufficient 09/10/2024 8:19 AM EST [facility] Blood VENOUS BLOOD SPECIMEN / Unknown Venipuncture / Unknown 09/10/2024 7:23 AM EST 09/10/2024 7:24 AM EST Dena Alexander STRENGTH AND CONDITIONING COACH CHEMISTRY ORDERA BLES [facility] [place] [address] * Vitamin B12 (09/10/2024 7:23 AM EST) Vitamin B12 571 232 - 1,245 pg/mL 09/10/2024 10:56 AM EST [facility] Blood VENOUS BLOOD SPECIMEN / Unknown Venipuncture / Unknown 09/10/2024 7:23 AM EST 09/10/2024 7:24 AM EST Dena Alexander APRN CHEMISTRY ORDERA BLES Performing Organization Address City/[facility]/ZIP Co de Phone Number [facility] [address] [place] [address] * Vitamin B1, whole blood (09/10/2024 7:23 AM EST) Pathologist [facility] Vit B1 Lvl Wb March 135 70 - 180 nmol/L 09/13/2024 3:13 PM EST REF LAB [place] Comment: ADDITIONAL INFORMATION This test was developed and its performance characteristics determined by [facility] in a manner consistent with CLIA requirements. This test has not been cleared or approved by the U.S. Food and Drug Administration. Blood VENOUS BLOOD SPECIMEN / Unknown Venipuncture / Unknown 09/10/2024 7:23 AM EST 09/10/2024 7:24 AM EST Narrative REF LAB [place] - 09/13/2024 3:13 PM EST Test Performed by: [address] [address] Software Development Intern: Toshia Enriquez Ph.D.; CLIA# [id number] Dena Alexander APRN LAB SEND OUT ORD ERABLES REF LAB [id number] [place] [address] * PTH (09/10/2024 7:23 AM EST) Pathologist [facility] Parathyroid Hormone 64 15 - 65 pg/mL 09/10/2024 8:00 AM EST [facility] Blood VENOUS BLOOD SPECIMEN / Unknown Venipuncture / Unknown 09/10/2024 7:23 AM EST 09/10/2024 7:24 AM EST Dena Alexander APRN CHEMISTRY ORDERA BLES Performing Organization Address City/[facility]/ZIP Co de Phone Number [facility] [place] [address] * Iron and TIBC (09/10/2024 7:23 AM EST) Iron 92 30 - 150 mcg/dL 09/10/2024 8:06 AM [facility] TIBC 316 250 - 450 mcg/dL 09/10/2024 8:06 AM [facility] Iron Saturation 29 20 - 50 % 8:06 AM [facility] Blood VENOUS BLOOD SPECIMEN / Unknown Venipuncture / Unknown 09/10/2024 7:23 AM EST 09/10/2024 7:24 AM EST Dena Alexander APRN CHEMISTRY ORDERA BLES Performing Organization Address City/[facility]/ZIP Co de Phone Number [facility] [place] [address] * Hemogram (09/10/2024 7:23 AM EST) White Blood Cell 7.38 4.00 - 9.50 x10(3)/mcL 09/10/2024 7:44 AM [facility] Red Blood Cell 4.44 4.00 - 5.21 x10(6)/mcL 09/10/2024 7:44 AM [facility] Hemoglobin 13.1 11.7 - 15.5 g/dL 09/10/2024 7:44 AM [facility] Hematocrit 39.2 35.7 - 45.8 % 09/10/2024 7:44 AM [facility] Mean Cell Volume 88.3 82.6 - 94.4 fL 09/10/2024 7:44 AM [facility] Mean Cell Hemoglobin 29.5 27.1 - 32.0 pg 09/10/2024 7:44 AM [facility] Mean Cell Hemoglobin Concentration 33.4 31.7 - 35.0 g/dL 09/10/2024 7:44 AM [facility] Platelet 261 145 - 357 x10(3)/mcL 09/10/2024 7:44 AM [facility] Mean Platelet Volume 10.8 7.6 - 12.9 fL 09/10/2024 7:44 AM [facility] RDW Standard Deviation 39.2 37.0 - 46.0 fL 09/10/2024 7:44 AM [facility] RDW coefficient of variation 12.1 11.5 - 14.1 % 09/10/2024 7:44 AM [facility] NRBC% auto 0.0 % 09/10/2024 7:44 AM [facility] NRBC Absolute <0.01 <0.01 x10(3)/mcL 09/10/2024 7:44 AM [facility] Blood VENOUS BLOOD SPECIMEN / Unknown Venipuncture / Unknown 09/10/2024 7:23 AM EST 09/10/2024 7:24 AM EST Dena Alexander APRN HEMATOLOGY ORDER SUGAR Performing Organization Address City/State/[facility] Co de Phone Number [facility] [place] [address] * Folate, serum (09/10/2024 7:23 AM EST) Folate 7.6 4.8 - 24.2 ng/ml 09/10/2024 8:19 AM [facility] Blood VENOUS BLOOD SPECIMEN / Unknown Venipuncture / Unknown 09/10/2024 7:23 AM EST 09/10/2024 7:24 AM EST Dena Radha Benjamin CANDELARIA CHEMISTRY ORDERA BLES [facility] [place] [address] * Ferritin (09/10/2024 7:23 AM EST) Ferritin 157 6 - 175 ng/ml 09/10/2024 8:19 AM [facility] Blood VENOUS BLOOD SPECIMEN / Unknown Venipuncture / Unknown 09/10/2024 7:23 AM EST 09/10/2024 7:24 AM EST Dena Radha Benjamin CANDELARIA CHEMISTRY ORDERA BLES Performing Organization Address [facility]/ZIP Co de Phone Number [facility] [place] [address] * (ABNORMAL) Comprehensive metabolic panel (09/10/2024 7:23 AM EST) Glucose 93 65 - 99 mg/dL 09/10/2024 8:06 AM [facility] Comment: Fasting Glucose Interpretive Criteria: Normal: 65-99 mg/dL ?? Prediabetes: 100-125 mg/dL ?? Consistent with Diabetes Mellitus: > or = 126 mg/dL ?? Classification and Diagnosis of Diabetes: Standards of Care in Diabetes - 2022. Diabetes Care 202; 46:S19. Fasting is defined as no caloric intake for at least 8 hours. Blood Urea Nitrogen 13 8 - 18 mg/dL 09/10/2024 8:06 AM [facility] Creatinine 0.70 0.70 - 1.20 mg/dL 09/10/2024 8:06 AM [facility] Sodium 141 135 - 145 mMol/L 09/10/2024 8:06 AM [facility] Potassium 3.9 3.5 - 5.0 mMol/L 09/10/2024 8:06 AM [facility] Chloride 108(H) 98 - 107 mMol/L 09/10/2024 8:06 AM [facility] Carbon Dioxide 22 22 - 31 mMol/L 09/10/2024 8:06 AM [facility] Anion Gap 11 5 - 15 mMol/L 09/10/2024 8:06 AM [facility] Calcium 9.5 8.5 - 10.5 mg/dL 09/10/2024 8:06 AM [facility] Protein, Total 7.2 6.1 - 8.0 g/dL 09/10/2024 8:06 AM [facility] Albumin 4.1 3.2 - 5.2 g/dL 09/10/2024 8:06 AM [facility] Aspartate Aminotransferase 20 <=30 unit/L 09/10/2024 8:06 AM [facility] Alanine Aminotransferase 14 0 - 30 unit/L 09/10/2024 8:06 AM [facility] Alkaline Phosphatase 124(H) 35 - 105 unit/L 09/10/2024 8:06 AM [facility] Bilirubin, Total 0.3 <=1.3 mg/dL 09/10/2024 8:06 AM [facility] Est Glomerular Filtration Rate - Female 108 mL/min/1. 73 m?? 09/10/2024 8:06 AM [facility] Comment: This patient's estimated [...] Foundation Fasting Status Yes 09/10/2024 8:06 AM [facility] Blood VENOUS BLOOD SPECIMEN / Unknown Venipuncture / Unknown 09/10/2024 7:23 AM EST 09/10/2024 7:24 AM EST Dena Alexander STRENGTH AND CONDITIONING COACH CHEMISTRY ORDERA BLES [facility] [place] [address] documented in this encounter Visit Diagnoses Diagnosis S/P gastric bypass Bariatric surgery status Intestinal malabsorption, unspecified type Disorder of iron metabolism Other disorders of iron metabolism documented in this encounter Care Teams Reproducer Relationship Specialty Start Date End Date Sonido Cordoba PA [address] [place] [address] PCP - General Family Medicine 07/06/20 documented as of this encounter
--- OUTSIDE RECORDS SUMMARY | 2024-10-16 17:36 | XMS_ITS | Encounter Summary ---
Author Organization [facility] [place] [address] Care Team Providers Care Pathology Transcriptionist Name Role Phone Sonido Cordoba Primary Care Provider [phone]- [phone] Reason for Visit * Reason Onset Date Comments Bumped Appointment 07/09/2024 Encounter Details Date Type Department Care Team (Late st Contact Info) Description 07/09/2024 [place] [phone] Hill Badillo PA [facility] [place] [address] Bumped Appointment Social History Tobacco Use Types Packs/Day Years Used Date Smoking Tobacco: Former Cigarettes 0.5 6 0 01/25/1991 - 01/25/1997 Smokeless Tobacco: Never Alcohol Use Standard Drinks/Week Comments Not Currently 0 (1 standard drink = 0.6 oz pur e alcohol) 1X/quarter [facility] Inpatient Questions Answer Date Recorded Does Anyone [...] encounter Miscellaneous Notes * Telephone Encounter - Aleyda French - 07/11/2024 9:45 AM EDT LM# to reschedule bumped appointment with [facility] scheduled on 07/18. RESCHEDULED TO 07/18 3PM XR AND 4PM APPT. LEFT MESSAGE TO ADVISE OF CHANGE AND SENT [facility]. . XR LEFT THUMB TRIGGER FINGER * Telephone Encounter - Aleyda French - 07/10/2024 10:26 AM EDT LM#2 to reschedule bumped appointment with [facility] scheduled on 07/18. Please reschedule to 07/18 HOLD SPOT . XR LEFT THUMB TRIGGER FINGER * Telephone Encounter - Aleyda French - 07/09/2024 9:39 AM EDT LM#1 to reschedule bumped appointment with [facility] scheduled on 07/18. Please reschedule to 07/18 HOLD SPOT . XR LEFT THUMB TRIGGER FINGER documented in this encounter Plan of Treatment Upcoming Encounters Date Type Department Care Team (Late st Contact Info) Description 12/31/2024 10:00 AM EST Office [place] [address] Mercy Amanda MD [facility] [address] [place] [address] 04/01/2025 2:00 PM EDT Office [place] [address] Erum Szymanski MD [facility] [place] [address] documented as of this encounter Goals Goal [...] a priority: - Eggs - Cheese - Turkish yogurt / cottage cheese - meat - fish - nuts/seeds - protein shake or bar Start with the protein, can choose to add other foods (would rather have you choose regular bread/ slovenian muffin, etc. - whole wheat if possible- [...] on filedocumented in this encounter Care Teams Pathology Transcriptionist Relationship Specialty Start Date End Date Sonido Cordoba PA [address] [place] [address] PCP - General Family Medicine 07/06/20 documented as of this encounter
--- OUTSIDE RECORDS SUMMARY | 2024-10-16 17:36 | XMS_ITS | Encounter Summary ---
[place] [address] Care Team Providers Care In Service Coordinator Name Role Phone Sonido Cordoba Primary Care Provider [phone]- [phone] Encounter Details Date Type Department Care Team (Latest Contact Info) Description 02/25/2024 Travel Social History Tobacco Use Types Packs/Day [...] AM EST Office [place] [phone] Mercy Amanda MD [facility] [address] [place] [address] 04/01/2025 2:00 PM EDT Office Visit Gastroenterology at [facility] [address] Erum Szymanski MD [facility] [place] [address] documented as of this encounter Goals Goal [...] a priority: - Eggs - Cheese - Yakut yogurt / cottage cheese - meat - fish - nuts/seeds - protein shake or bar Start with the protein, can choose to add other foods (would rather have you choose regular bread/ irish muffin, etc. - whole wheat if possible- [...] on filedocumented in this encounter Care Teams In Service Coordinator Relationship Specialty Start Date End Date Sonido Cordoba PA [address] [place] [address] PCP - General Family Medicine 07/06/20 documented as of this encounter
--- OUTSIDE RECORDS SUMMARY | 2024-10-16 17:36 | XMS_ITS | Encounter Summary ---
Author [place] [address] Care Team Providers Care Finger Waver Name Role Phone Sonido Cordoba Primary Care Provider +1- [phone] Encounter Details Date Type Department Care Team (Latest Contact Info) Description 03/06/2024 Travel Social History Tobacco Use Types Packs/Day [...] AM EST Office [place] [phone] Mercy Amanda MD [facility] [address] [place] [address] 04/01/2025 2:00 PM EDT Office Visit Gastroenterology at [facility] [place] [address] Erum Szymanski MD [facility] DR [place]STRO[place] [address] documented as of this encounter Goals Goal [...] a priority: - Eggs - Cheese - Wolof yogurt / cottage cheese - meat - fish - nuts/seeds - protein shake or bar Start with the protein, can choose to add other foods (would rather have you choose regular bread/ mongolian muffin, etc. - whole wheat if possible- [...] on filedocumented in this encounter Care Teams Finger Waver Relationship Specialty Start Date End Date Sonido Cordoba PA [address] [place] [address] PCP - General Family Medicine 07/06/20 documented as of this encounter
--- OUTSIDE RECORDS SUMMARY | 2024-10-16 17:36 | XMS_ITS | Encounter Summary ---
[place] [address] Care Team Providers Care Deck Engineer Name Role Phone Sonido Cordoba Primary Care Provider [phone] Reason for Visit * Auth/Cert (Routine) Specialty Diagnoses / Procedures Referred By Aric madrigal Referred To Contact Diagnoses Morbid Obesity Procedures PRO LAP GASTRIC BYPASS/ELVIE-EN-Y PRO UPPER GI ENDOSCOPY, DIAGNOSTIC PRO UNLISTED LAPAROSCOPIC PROCEDURE ESOPHAGUS @LAPAROSCOPIC GASTROPLASTY W/ ELVIE-EN-Y CONSTRUCTION (WRVU 29.4) EGD, UPPER GI ENDOSCOPY (WRVU 2.09) LAPAROSCOPIC TAKEDOWN PREVIOUS TYESHA (WRVU 48.75) Ladan Damon MD [facility] [place] [address] [facility] Referral ID Status Reason Start Date Expiration Date Visits Re quested Visits Authorized [id number] 1 1 Encounter Details Date Type Department Care Team (Late st Contact Info) Description 05/29/2024 7:30 AM EDT - 05/29/2024 12:15 PM EDT [place] [id number] Ladan Damon MD [facility] [place] [address] @LAPAROSCOPIC GASTROPLASTY W/ ELVIE-EN-Y CONSTRUCTION (WRVU 29.4) Social History Tobacco Use Types Packs/Day Years [...] Sign Reading Time Taken Comments Blood Pressure 138/97 05/29/2024 6:20 AM EDT Pulse 71 05/29/2024 6:20 AM EDT Temperature 36 ??C (96.8 ??F) 05/29/2024 6:20 AM EDT Respiratory Rate 16 05/29/2024 6:20 AM EDT Oxygen Saturation 97% 05/29/2024 6:20 AM EDT Inhaled Oxygen Concentration - - Weight 110.2 kg (243 lb) 05/29/2024 6:20 AM EDT Height 162.6 cm (5' 4) 05/29/2024 6:20 AM EDT Body Mass Index 41.71 05/29/2024 6:20 AM EDT documented in this encounter Discharge Summaries * Elly Zuleta MD - 05/30/2024 10:33 AM EDT Images from the original note were not included. General Surgery Discharge Summary Patient Name: Vianney Cordero Patient Age: 48 y.o. : 1975 Attending Physician: Ladan Damon MD Date of Admission: 05/29/2024 Date of Discharge: 05/30/24 Reason for admission: Post operative care following:Laparoscopic Ytesha fundoplication takedown, partial gastric resection, cruroplasty, elvie en y gastric bypass. Primary Diagnosis: Barrets esophagus, obesity Secondary Diagnosis: Patient Active Problem List Diagnosis Code Elbow [...] with esophagitis K21.00 S/P bariatric surgery Z98.84 Operations and Procedures: Procedure(s): @LAPAROSCOPIC GASTROPLASTY W/ ELVIE-EN-Y CONSTRUCTION (WRVU 29.4) EGD, UPPER GI ENDOSCOPY (WRVU 2.09) LAPAROSCOPIC TAKEDOWN PREVIOUS TYESHA (WRVU 48.75) MODIFIER, HIATAL HERNIA Surgeons: Surgeons and Role: * Ladan Damon MD - Primary * Elly Zuleta MD - Resident - Assisting History of Present Illness: Vianney Cordero is a 48 y.o. female with h/o GERD s/p Tyesha fundoplication, obesity and Barrets esophagus, who presents for planned bariatric surgery and tyehsa fundoplication takedown. Hospital Course: Vianney Cordero is a 48 y.o. female who was admitted on 05/29/2024 postoperatively after a Laparoscopic tyesha fundoplication takedown, conversion to elvie en y gastric bypass. Operative course was uneventful, please see operative note for further detail. Postoperative she received clear liquid diet as well as tylenol, dilaudid for pain control. she received subcutaneous Lovenox for DVT prophylaxis. On POD#1 her diet was advanced to full liquid diet, which was tolerated well. she was changed to oral pain medications and IV analgesics were discontinued on POD#1. she did not have Rucker catheter and was voiding without difficulty for the duration of her admission Prior to discharge on 05/30/24 or hospital day 1, patient's pain was well controlled with oral painmedications, wounds were intact and healing appropriately, and she was tolerating a Gastric Bypass diet Stage II-Full. Vitals were within normal limits and patient was determined medically ready for discharge to home. Vital Signs Last value Range last 24hrs Temperature Temp: 36.9 ??C (98.4 ??F) Temp: [36 ??C (96.8 ??F)-36.9 ??C (98.4 ??F)] Heart Rate Heart Rate: 79 Heart Rate: [78-92] Blood Pressure BP: (!) 167/95 BP: (131-187)/(69-99) Respiratory Rate Resp: 16 Resp: [16-25] SpO2 SpO2: 95 % SpO2: [92 %-98 %] Pertinent Lab Data: Recent Labs 05/30/24 0424 WBC 11.8* HGB 12.9 HCT 38.1 PLATELET 287 Recent Labs 05/30/24 0424 NA 138 K 3.9 CL 106 CO2 21* BUN 11 CREATININE 0.68* GLUCOSE 134 CALCIUM 9.0 MAGNESIUM 0.92 PHOS 3.7 Imaging: Scan Doc: Telemetry Strips Result Date: 05/29/2024 Ordered by an unspecified provider. Physical Exam: General: AOx3, pleasant, conversant, no acute distress HEENT: normocephalic, atraumatic, PERRLA, anicteric sclerae CVS: RRR on monitor Pulm: breathing comfortably on RA Abd: soft, nontender, non-distended, incisions clean/dry/intact Skin: warm, dry Ext: well perfused, no jaundice or cyanosis, no edema Neuro: CN 2-12 grossly intact, nonfocal, moving all four extremities spontaneously Condition at discharge: Stable Mental Status: awake and alert, oriented x 3 Medications: Your Medications New Medications Dose Details docusate sodium 100 mg capsule Commonly known as: Colace Take 1 capsule by mouth 2 times daily as needed for Constipation. 100 mg Refills: 0 gabapentin 100 mg capsule Commonly known as: Neurontin Take 1 capsule by mouth 2 times daily for 5 days. 100 mg Quantity: 10 capsule Refills: 0 HYDROmorphone 1 mg/mL Liquid Commonly known as: Dilaudid Take 2 mLs by mouth every 4 hours as needed for Pain. 2 mg Quantity: 10 mL Refills: 0 ondansetron ODT 4 mg disintegrating tablet Commonly known as: Zofran-ODT Take 1 tablet by mouth every 8 hours as needed for Nausea. 4 mg Quantity: 20 tablet Refills: 0 polyethylene glycoL 17 gram/dose Powder Commonly known as: Miralax Take 17 g by mouth daily. 17 g Refills: 0 Continued medications with new dosing Dose Details acetaminophen 325 mg tablet Commonly known as: Tylenol Take 3 tablets by mouth 3 times daily for 5 days. What changed: medication strength how much to take when to take this reasons to take this 975 mg Refills: 0 Continued medications, unchanged Dose Details cyclobenzaprine 10 mg tablet Commonly known as: Flexeril Take 10 mg by mouth 3 times daily as needed for Muscle spasms. 10 mg Refills: 0 hydrocortisone 2.5 % Cream APPLY A THIN LAYER topicallyTO THE AFFECTED AREA(S) twice daily Refills: 0 meclizine 12.5 mg tablet Commonly known as: Antivert Take 12.5 mg by mouth 3 times daily as needed. 12.5 mg Refills: 0 metFORMIN XR 500 mg ER 24 hr tablet Commonly known as: Glucophage XR Take 4 tablets by mouth nightly. With dinner 2,000 mg Quantity: 360 tablet Refills: 2 pantoprazole EC [address] tablet Commonly known as: Protonix Take 1 tablet by mouth 2 times daily. (30 minutes before meals) 40 mg Quantity: 180 tablet Refills: 3 triamcinolone 0.1 % Cream Commonly known as: Kenalog Apply topically 2 times daily. Start 03/26/2024 Quantity: 30 g Refills: 0 STOPPED Medications Phentermine 8 mg tablet Commonly known as: Lomaira Disposition: Home Allergies: Allergies Allergen Reactions Ketchup Rash Lactose Oxycodone Nausea And Vomiting Shellfish Containing Products Outpatient Services/Studies: No discharge procedures on file. Scheduled Appointments: Future Appointments and Orders Future Appointments and Orders Future Appointments Provider Department Dept Phone 06/20/2024 12:[address]; Dena Alexander APRN General Surgery at [facility] Arrive at: Receptionist Area [phone] Please dispose of unused excess opioids before your appointment or bring them with you to the appointment and we will help you dispose of them correctly. 09/19/2024 10:[address]; Dena Alexander APRN General Surgery at [facility] Arrive at: Receptionist Area [phone] 12/08/2024 10:30 AM Mercy Amanda MD Weight and Wellness at [facility] Arrive at: Receptionist Area [phone] 04/01/2025 2:00 PM Erum Szymanski MD Gastroenterology at [facility] Arrive at: Receptionist Area [phone] Instructions Given to Patient at Discharge: Patient Instructions Discharge Instructions - Bariatric Surgery NEW PRESCRIPTIONS: upper cutter machine at [facility] today: Zofran (ondansetron), gabapentin, liquid Dilaudid (hydromorphone), Miralax, Colace HOME MEDICATION PLAN: Wait two weeks to start taking bariatric vitamins No changes, take whole: meclizine (Antivert) Changes: Ok to open, cut in half, or crush for 2 weeks as needed based on size template below: pantoprazole (Protonix), cyclobenzaprine (Flexeril) Stop taking: phentermine (Lomaira) until your next follow up with the [facility] Wait 2 weeks to resume metformin XR, this medication is too large to take whole, but it is extendedrelease and cannot but cut in half or crushed. MEDICATIONS: For 2 WEEKS: LARGE pills (bigger [...] day. In addition to scheduled Tylenol, you should also take the following scheduled medication for 3-5 days after surgery: gabapentin 100 mg twice daily If you have been prescribed a narcotic [...] asMiralax to prevent this. OPIOID USE LOG: You have been prescribed liquid Dilaudid (hydromorphone), which is an opioid pain medication. You may take 2 mg/mL every 4-6 hours as needed if your pain is not well controlled with either acetaminophen (Tylenol) or gabapentin. Please use this log to keep track [...] tablets) Example: 05/08/2024 at 12 pm Example: 2 mL liquid hydromorphone PAIN MEDICATION TAPER INSTRUCTIONS: Your pain should [...] it less often. Continue your Tylenol and gabapentin as you wean the narcotic. Next, stop taking the gabapentin. Wean the Tylenol last. OTHER MEANS FOR [...] the pain. BARIATRIC SUPPORT TEAM CONTACT NUMBERS (Sun-Sun 8am - 5pm): General Surgery and Bariatric Surgery [phone] Bariatric Surgeons: Jeremy Meléndez Trus [phone] Component Assembler Supervisor: [phone] Dietitians: [phone] Outside of regular business hours, including weekends and holidays: Ask for General Surgery resident qualification engineer [phone] Please note, this call will be answered [...] appointment with The Bariatric Surgery Team in 3 weeks at the [facility] (Receptionist 4L, [facility]). Future Appointments Date Time Provider Department Center 06/20/2024 12:30 PM Dena Alexander APRN [facility] SURG [facility] 09/19/2024 10:00 AM Dena Alexander APRN [facility] SURG [facility] 12/08/2024 10:30 AM Mercy Amanda MD [facility] WEIGHT [facility] 04/01/2025 2:00 PM Erum Szymanski MD [facility] GASTRO [facility] WOUND CARE You have liquid dressing over your incisions, there is nothing to remove. You may shower 24 hours after surgery. When you shower, let soap and water [...] twice daily. Please call or send a [employer] message if you do not have a [...] up to twice daily. BLOOD CLOT PREVENTION: You DO NOT meet scoring criteria to be [...] - you do not need this medication. PATIENTS WITH HIGH BLOOD PRESSURE: Monitor your blood pressure regularly at the same time every day. If you feel dizzy and have been [...] Follow up with primary care provider or claim specialist in 1-2 weeks in order to [...] and Bariatric nurse practitioner at 4, 12, and yearly for life. General Instructions None Future Appointments and Orders Future Appointments and Orders Future Appointments Provider Department Dept Phone 06/20/2024 12:[address]; Dena Alexander APRN General Surgery at [facility] Arrive at: Receptionist Area [phone] Please dispose of unused excess opioids before your appointment or bring them with you to the appointment and we will help you dispose of them correctly. 09/19/2024 10:[address]; Dena Alexander APRN General Surgery at [facility] Arrive at: Receptionist Area [phone] 12/08/2024 10:30 AM Mercy Amanda MD Weight and Wellness at [facility] Arrive at: Receptionist Area [phone] 04/01/2025 2:00 PM Erum Szymanski MD Gastroenterology at [facility] Arrive at: Receptionist Area [phone] Signed: Elly Zuleta MD [facility] Physician: WANDY Aguilera [address] / [facility] [id number] documented in this encounter Discharge Instructions * Patient Instructions* Crystal Mendez PA - 05/21/2024 11:25 AM EDT Images from the original note were not included. Discharge Instructions - Bariatric Surgery NEW PRESCRIPTIONS: upper cutter machine at [facility] today: Zofran (ondansetron), gabapentin, liquid Dilaudid (hydromorphone), Miralax, Colace HOME MEDICATION PLAN: Wait two weeks to start taking bariatric vitamins No changes, take whole: meclizine (Antivert) Changes: Ok to open, cut in half, or crush for 2 weeks as needed based on size template below: pantoprazole (Protonix), cyclobenzaprine (Flexeril) Stop taking: phentermine (Lomaira) until your next follow up with the [facility] Wait 2 weeks to resume metformin XR, this medication is too large to take whole, but it is extendedrelease and cannot but cut in half or crushed. MEDICATIONS: For 2 WEEKS: LARGE pills (bigger [...] day. In addition to scheduled Tylenol, you should also take the following scheduled medication for 3-5 days after surgery: gabapentin 100 mg twice daily If you have been prescribed a narcotic [...] asMiralax to prevent this. OPIOID USE LOG: You have been prescribed liquid Dilaudid (hydromorphone), which is an opioid pain medication. You may take 2 mg/mL every 4-6 hours as needed if your pain is not well controlled with either acetaminophen (Tylenol) or gabapentin. Please use this log to keep track [...] tablets) Example: 05/08/2024 at 12 pm Example: 2 mL liquid hydromorphone PAIN MEDICATION TAPER INSTRUCTIONS: Your pain should [...] it less often. Continue your Tylenol and gabapentin as you wean the narcotic. Next, stop taking the gabapentin. Wean the Tylenol last. OTHER MEANS FOR [...] - 5pm): General Surgery and Bariatric Surgery [phone] Bariatric Surgeons: Jeremy Meléndez Trus [phone] Component Assembler Supervisor: [phone] Dietitians: [phone] Outside of regular business hours, including weekends and holidays: Ask for General Surgery resident qualification engineer [phone] Please note, this call will be answered [...] appointment with The Bariatric Surgery Team in 3 weeks at the [facility] (Receptionist 4, [facility]). Future Appointments Date Time Provider Department Center 06/20/2024 12:30 PM Dena Alexander APRN [facility] SURG [facility] 09/19/2024 10:00 AM Dena Alexander APRN [facility] SURG [facility] 12/08/2024 10:30 AM Mercy Amanda MD [facility] WEIGHT [facility] 04/01/2025 2:00 PM Erum Szymanski MD [facility] GASTRO [facility] WOUND CARE You have liquid dressing over your incisions, there is nothing to remove. You may shower 24 hours after surgery. When you shower, let soap and water [...] twice daily. Please call or send a [employer] message if you do not have a [...] up to twice daily. BLOOD CLOT PREVENTION: You DO NOT meet scoring criteria to be [...] - you do not need this medication. PATIENTS WITH HIGH BLOOD PRESSURE: Monitor your blood pressure regularly at the same time every day. If you feel dizzy and have been [...] Follow up with primary care provider or claim specialist in 1-2 weeks in order to [...] and Bariatric nurse practitioner at 4, 12, and yearly for life. documented in this encounter Medications at Time of Discharge Medication Sig Dispensed Refills Start Date End Date albuteroL (Ventolin HFA) 90 mcg/actuation inhaler (HFA) Inhale 2 puff as directed every four to six hours as needed 10/21/2021 docusate sodium (Colace) 100 mg capsule Take 1 capsule by mouth 2 times daily as needed for Constipation. 05/30/2024 hydrocortisone 2.5 % Cream APPLY A THIN LAYER topicallyTO THE AFFECTED AREA(S) twice daily 03/13/2024 triamcinolone (Kenalog) 0.1 % CreamIndications:Bug bite, initial encounter Apply topically 2 times daily. Start 03/26/2024 30 g 03/25/2024 pantoprazole EC (Protonix) [address] tabletIndications:Lerna tt's esophagus without dysplasia,Gastroesophag eal reflux disease with esophagitis, unspecified whether hemorrhage Take 1 tablet by mouth 2 times daily. (30 minutes before meals) 180 tablet 3 11/13/2023 cyclobenzaprine (Flexeril) 10 mg Tablet Take 10 mg by mouth 3 times daily as needed for Muscle spasms. meclizine (ANTIVERT) 12.5 mg Tablet Take 12.5 mg by mouth 3 times daily as needed. acetaminophen (Tylenol) 325 mg tablet Take 3 tablets by mouth 3 times daily for 5 days. 05/30/2024 06/04/2024 gabapentin (Neurontin) 100 mg capsule Take 1 capsule by mouth 2 times daily for 5 days. 10 capsule 05/30/2024 06/04/2024 polyethylene glycoL (Miralax) 17 gram/dose Powder Take 17 g by mouth daily. 05/30/2024 06/20/2024 ondansetron ODT (Zofran-ODT) 4 mg disintegrating tablet Take 1 tablet by mouth every 8 hours as needed for Nausea. 20 tablet 05/30/2024 06/20/2024 HYDROmorphone (Dilaudid) 1 mg/mL Liquid Take 2 mLs by mouth every 4 hours as needed for Pain. 10 mL 05/30/2024 06/20/2024 metFORMIN XR (Glucophage XR) 500 mg ER 24 hr tabletIndications:Class 3 severe obesity with serious comorbidity and body mass index (BMI) of 40.0 to 44.9 in adult, unspecified obesity type,Insulin resistance Take 4 tablets by mouth nightly. With dinner 360 tablet 2 04/17/2024 06/20/2024 documented as of this encounter Progress Notes * Justine Victoria RN - 05/29/2024 1:40 PM EDT 1300 pt admitted to PACU s/p tyesha take down and R-N-Y procedure completed. Monitors attached and alarms set. Report received from OR team. Pt arrousable. Oral airway removed. WCM 1400 pt intermittently complains of abdominal pain and nausea, falling back to sleep. VSS, Medicated with Tylenol, dilaudid, Toradol, Zofran effect pending. WCM documented in this encounter H&P Notes * Ladan Damon MD - 05/29/2024 7:01 AM EDT Images from the original note were not included. Day of Surgery Update Please see clinic note for further historical details, copied below. The patient's history and physical exam have been reviewed and completed. There has been no interval change from that of the pre-operative history and physical exam with RRRand CTAB. All preoperative questions were answered. Plan to proceed with Lap tyesha takedown with conversion to LRYGB. LADAN DAMON MD Vianney Cordero is a 48 y.o. female who is returns in follow up regarding bariatric surgery.She has been through our Bariatric Surgery Program and has been found eligable for obesity surgery based on NIH criteria. She was seen in coordination with Kailyn Urbano APRN. She underwent hiatal hernia repair and tyesha fundoplication in 2014. 02/25/24 Barium Swallow: FINDINGS: The esophagus is normal in course and caliber, and is well distended on double contrast views. The mucosal pattern is normal. Expected appearance post Tyesha's fundoplication. There is a small sliding hiatal hernia, Tyesha wrap is variably above the diaphragm with Valsalva. Mild esophageal dysmotility characterized by bolus splitting and to and fro motion. No gastroesophageal reflux was elicited with provocative maneuvers. A 13 mm barium tablet was swallowed without issue and passed promptly into the stomach. IMPRESSION 1. Intact Tyesha fundoplication. 2. Small sliding-type hiatal hernia. 3. Mild esophageal dysmotility. 06/01/23 EGD: Impression: - Z-line irregular, 28 cm from the incisors. 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 Biopsied. - A Tyesha fundoplication was found. The wrap appears intact. - Normal examined duodenum. Recommendation: - Await pathology results. - Follow an antireflux regimen. - Proceed with Colonoscopy. 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 No dysplasia is seen. B - 32-33 cm esophagus, biopsy (Multiple): Specialized metaplastic columnar mucosa consistent with specialized Mix metaplasia. No dysplasia is seen. 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 No dysplasia is seen. D - 28-29 cm esophagus, biopsy (Multiple): Squamous esophageal and specialized metaplastic columnar mucosa consistent with specialized Mix metaplasia. No dysplasia is seen. Desired procedure: Tyesha takedown, conversion to Laparoscopic Elvie en Y gastric bypass Current weight/BMI: Wt & BMI By Encounter Date Flowsheet Row Office Visit from 03/06/2024 in General Surgery at [facility] Office Visit from 02/04/2024 in Weight and Wellness at [facility] Weight 109.9 kg (242 lb 4.8 oz) 1 03/06/2024 1254 113.3 kg (249 lb 12.8 oz) 1 02/04/2024 1626 BMI -- 44.15 1 02/04/2024 1626 Discussion of treatment of obesity and of the [facility] Bariatric Surgery Program: Vianney Cordero is aware that other treatments for obesity are available, ie, dietary, behavior modification, weight loss medications, exercise as well as surgical weight loss methods. The risks and benefits of bariatric surgery, including gastric bypass and sleeve gastrectomy are discussed at every Introduction to the [facility] Bariatric Surgery Program meeting and all Educational Seminars, and were again discussed individually today. Assessment/Plan: Vianney Cordero. is a 48 y.o.. with severe obesity with co-morbidities who is a good candidate for tyesha takedown and conversion to laparoscopic elvie en y gastric bypass. Thepatient is motivated and a well- educated about the risks, benefits and alternatives to surgery. We discussed the benefits of surgery as well as the small but real risks including but not limited to need for open surgery, bleeding, infection, anastomotic leak, DVT and pulmonary embolis, stricture, postoperative reflux and . We discussed the possibility of poor weight loss and the need to make sustained dietary changes in order for the surgery to be successful. She understands the intermediate risks of vitamin deficiencies, internal hernias and ulcers. She realizes the need for life long follow up with the bariatric surgery program and understands the importance of the preoperative dietin terms of safety and ability to perform the procedure. We discussed the risk of dysphagia. Consent was signed today. All questions were answered and the patient desires to proceed. Pending: - Educational class - CBC and CMP within 6 months of surgery, nutrition labs per [facility] accredited bariatric center guidelines - Ongoing weight loss encouraged - Given a surgery date [facility] Bariatric Surgery Evaluation Follow Up Patient's initial visit was on 2/15/24. Updates in blue. Reason for consultation: Vianney is a 48 y.o. female referred by WANDY Aguilera for consultation for consideration of surgical treatment of obesity. Her preferred procedure: Elvie-en-Y gastric bypass due to prior tyesha and GERD/Mix's. Prior bariatric surgery evaluations: None. BARIATRIC SURGERY PROGRAM PATHWAY Review of progress with the requirements of the Bariatric Surgery Program: Education: She [x] has [] Has not attended a Introduction to the [facility] Bariatric Surgery Program seminar, a comprehensive two hour meeting that provides a program overview, education on bariatric surgeries offered at [facility], risks and benefits, as well as patient expectations and follow up. [facility] Bariatric Surgery Program Educational seminars viewed Bariatric Surgery Program evaluations with RD: Completed today Program start weight: 256 WT at visit #1: Wt & BMI By Encounter Date Flowsheet Row Office Visit from 03/06/2024 in General Surgery at [facility] Office Visit from 02/04/2024 in Weight and Wellness at [facility] Weight 109.9 kg (242 lb 4.8 oz) 1 03/06/2024 1254 113.3 kg (249 lb 12.8 oz) 1 02/04/2024 1626 BMI -- 44.15 1 02/04/2024 1626 Gallbladder status: [] intact, not studied. [x] S/P cholecystectomy VTE risk assessment: extended VTE prophylaxis [] is [x] is not indicated post bariatric surgery discharge Next steps in pathway: Additional testing/ consultations as determined as needed to be determined at today's visit. 8. HOSPITAL DISCHARGE NEEDS: [] Ursodiol [x] PPI [] Lovenox History of present illness: Vianney states that she has struggled with obesity for many years. The patient has tried multiple weight loss measures without sustainable success. Factors that she identifies as contributing to herobesity include: genetics, overconsumption and inactivity. She seeks bariatric surgery for health reasons. Other motivating factors for seeking surgery for bariatric surgery: Hoping to improve her health and get down to 200 lbs. Would like to be able to hike harder trails. Would like to make it up to the top of [facility]. Patient has a hx tyesha fundoplication, GERD and mix's. She is currently on daily PPI, reports her GERD sx are well controlled. Follow up was planned today due to: Per psychological evaluation recommendations- Reconnect with psychologist. Since her last visit, Vianney discussed with Juliette Lu PsyD and had 2 visits with Psychiatry 5D (elects not to continue counseling at this time). Her plan is to see Juliette Lu PsyD 2 weeks post op. She states her moodhas been great. Denies current PTSD symptoms. Vianney feels she is in a good place and is ready toproceed with bariatric surgery. She feels she has a good support network in her current partner andis comfortable reaching out for post op mental health support if needed. Eating behaviors and readiness for surgery- Vianney's weight is down 14 lb since her last visit. She has been tracking her intake (though not for the last week) and is being mindful to increase her protein intake. She feels eating behaviors are on track and feels she is ready to move forward with bariatric surgery. Patient met with RD today, see note. S/p Tyesha fundoplication: Swallow study completed. 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 Thought to be from lateral epicondylitis. Hiatal hernia Elbow pain, right Pre-Bariatric Surgery Obesity related medical issues: Problem Baseline issue if checked Comments Diabetes/prediabetes/insulin resistance [x] On metformin for wt loss. Metabolic syndrome or PCOS [] HTN [] GERD [x] Hx of Mix's, last EGD 05/2023, on PPI Hyperlipidemia [x] Not requiring medication YAHIR [] Musculoskeletal issues [x] Ankle, knee Liver Disease [x] Other [x] PTSD, depression/anxiety Metabolic Syndrome Criteria : must have 3 or more of the following Waist of 40 men, 35 women Blood pressure of 130/85 mm/HG or higher or taking blood pressure medication A trigylceride level oabove 150 mg/dl Fasting glucose >100 mg/dl or taking glucose lowering meds HDL <40 mg/dl Men and <50 mg/dl women Functional status: Is ambulation limited most or all of the time? no Tolerance: she can walk a mile and climb a flight of stairs ADLs: able to carry on without difficulty- [x] independent [] partially dependent [] totally dependent [] Unknown Lactose/ Food/ Wheat/ Latex allergy/sensitivity:lactose and ketchup. NSAID use: none control plan: s/p tubal ligation.We discussed that is not advised for 18-24 months after surgery and that reliable control is recommended. Discussed that rapid wt loss, decreasenutrition and risk of micro/macronutrient deficiencies can lead to growth restriction and comp lications for both mother and baby. Patient verbalizes understanding. MBSAQIP Preoperative Risk Assessment (negative if left blank): General [] Current smoker within 1 year Pulmonary [] COPD (Severe) [] History of pulmonary embolism Cardiac [] History of myocardial infarction [] Previous PCI/PTCA [] Previous cardiac surgery Vascular [] Vein thrombosis requiring therapy [] Venous stasis [] IVC filter IVC filter timing [] placed in anticipation of procedure [] IVC filter preexisting [] Unknown Renal [] Currently requiring or on dialysis [] Renal insufficiency Nutritional/Immune/Oncologyy/Other [] Steroid/Immunosuppressant use for chronic condition [] Therapeutic anticoagulation [x] Previous obesity surgery/foregut surgery (Tyesha2014) Past Surgical History Past Surgical History: Procedure Laterality Date CHOLECYSTECTOMY DILATION AND CURETTAGE OF UTERUS 11/05/1994 PRO COLONOSCOPY, BIOPSY N/A 08/21/2018 COLONOSCOPY FLEXIBLE, WITH BX (WRVU 3.66) performed by Erum Szymanski MD at [facility] ENDOSCOPY PRO COLONOSCOPY, BIOPSY N/A 09/04/2019 COLONOSCOPY FLEXIBLE, WITH BX (WRVU 3.66) performed by Steve Ji MD at [facility] ENDOSCOPY PRO COLONOSCOPY, DIAGNOSTIC N/A 09/04/2019 COLONOSCOPY, DIAGNOSTIC performed by Steve Ji MD at [facility] ENDOSCOPY PRO COLONOSCOPY, DIAGNOSTIC N/A 06/01/2023 COLONOSCOPY,SCREENING (WRVU 3.26) performed by Steve Ji MD at [facility] ENDOSCOPY PRO COLONOSCOPY, REMV LESN, SNARE N/A 08/21/2018 COLONOSCOPY, POLYPECTOMY, REMOVAL LESION BY SNARE (WRVU 4.67) performed by Erum Szymanski MD at [facility] ENDOSCOPY PRO CYSTO W URETEROSCOPY &/OR PYELOSCOPY, DX Right 06/01/2015 CYSTOURETEROSCOPY, DIAGNOSTIC performed by Darius Nuñez Jr., MD at [facility] MAIN OR PRO CYSTOSCOPY, INSERT URETERAL STENT Right 06/01/2015 CYSTO, STENT PLACEMENT performed by Darius Nuñez Jr., MD at [facility] MAIN OR PRO LAPAROSCOPY SURG ESOPHAGOGASTRIC FUNDOPLASTY N/A 04/05/2015 LAPAROSCOPIC TYESHA FUNDOPLASTY performed by Valentín Moura MD at [facility] MAIN OR PRO PERCUT DILATN RENAL TRACT Right 06/01/2015 PERCUTANEOUS INTRO GUIDE WIRE TO ACCESS RENAL PELVIS,AND OR URETER, W\DILATION performed by Darius Nuñez Jr., MD at [facility] MAIN OR PRO PERQ NL/PL LITHOTRIPSY SIMPLE UP TO 2 CM 1 LOCATION Right 06/01/2015 NEPHROLITHOTOMY, ([facility]) PERCUTANEOUS performed by Darius Nuñez Jr., MD at [facility] MAIN OR PRO REPAIR PERONEAL TENDONS Right 08/12/2020 PERONEAL TENDON REPAIR (WRVU 7.35) performed by Mani Jefferson MD at [facility] OSC PRO UPPER GI ENDOSCOPY, BIOPSY N/A 01/27/2015 EGD WITH BIOPSY performed by Brandt Barlow MD at [facility] ENDOSCOPY PRO UPPER GI ENDOSCOPY, BIOPSY N/A 02/28/2016 EGD WITH BIOPSY performed by Brandt Barlow MD at [facility] ENDOSCOPY PRO UPPER GI ENDOSCOPY, BIOPSY N/A 09/04/2016 EGD WITH BIOPSY performed by Brandt Barlow MD at [facility] ENDOSCOPY PRO UPPER GI ENDOSCOPY, BIOPSY N/A 09/24/2017 EGD WITH BIOPSY (WRVU 2.49) performed by Brandt Barlow MD at [facility] ENDOSCOPY PRO UPPER GI ENDOSCOPY, BIOPSY N/A 08/21/2018 EGD WITH BIOPSY (WRVU 2.49) performed by Erum Szymanski MD at [facility] ENDOSCOPY PRO UPPER GI ENDOSCOPY, BIOPSY N/A 09/04/2019 UPPER GASTROINTESTINAL ENDOSCOPY,WITH BIOPSY SINGLE OR MULTIPLE (WRVU 2.49) performed by Steve Ji MD at [facility] ENDOSCOPY PRO UPPER GI ENDOSCOPY, BIOPSY N/A 05/24/2021 EGD WITH BIOPSY (WRVU 2.49) performed by Kathy Carnes MD at [facility] ENDOSCOPY PRO UPPER GI ENDOSCOPY, BIOPSY N/A 06/01/2023 EGD WITH BIOPSY (WRVU 2.39) performed by Steve Ji MD at [facility] ENDOSCOPY PRO UPPER GI ENDOSCOPY, DIAGNOSTIC N/A 09/04/2019 EGD, UPPER GI ENDOSCOPY performed by Steve Ji MD at [facility] ENDOSCOPY TONSILLECTOMY Current Medications Current Outpatient Medications: Phentermine (Lomaira) 8 mg tablet, Take 1 [...] times daily as needed., Disp: , Rfl: traZODone (DESYREL) 50 mg Tablet, nightly as needed., Disp: , Rfl: 0 Allergies Allergies Allergen Reactions Ketchup Rash Lactose Oxycodone Nausea And Vomiting Shellfish Containing Products Ibuprofen Interacts with protonix PCP said she shouldn't take it Family History Family History Problem Relation Age of Onset Diabetes Mother Diabetes Maternal Grandmother Diabetes Maternal Grandfather Social History Socioeconomic History Marital status: Spouse name: Not on file Number of children: Not on file Years of education: Not on file Highest education level: Not on file Occupational History Not on file Tobacco Use Smoking status: Former Packs/day: 0.50 Years: 6.00 Additional pack years: 0.00 Total pack years: 3.00 Types: Cigarettes Quit date: 01/25/1997 Years since quittin.1 Smokeless tobacco: Never Vaping Use Vaping Use: Never used Substance and Sexual Activity Alcohol use: Not [...] on file Housing Stability: Not on file In the past year: 12/20/2023 8:53 AM Q ALCOHOL TOBACCO AND DRUG SCREENING TOOL Drinking frequency 2 to 4 times a month Drinks per day 1 to 2 drinks 6+ drinks on one occasion Never Use tobacco or nicotine products No In the past year have you used an illegal drug or a prescription medication for non medical reasons? No Do you use marijuana, including use for medical reasons, or synthetic marijuana products (K2, Spice, or other brands)? No Social History: . Has boyfriend. 3 adult sons, 2 of her sons and one granddaughter (2 yo)lives with her. 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 Lab data: Labs complete and up to date. 2. Psychological evaluation done by Juliette Lu PsyD, Weight and Wellness at [facility] : per Dr. Allen SERRANO WITH RECOMMENDATIONS - Based on the information gathered during this assessment and consultation with pt's psychotherapist, Dr. Metz, there are no psychological contraindications withVianney Cordero proceeding with surgery. Vianney would benefit from the following to assist with preparing for bariatric surgery: Continue engaging in health promoting behaviors Engage in MH txno contraindication to bariatric surgery from a psychological perspective. Plan for patient to follow up with [facility] Psychology 2 months post op. She denies binge eating, night eating disorder, self-induced vomiting, laxative or diuretic use or excessive exercise to lose weight. 12/20/2023 8:17 AM [facility] Initial Responses PROMIS 10 Physical Scores 61.9 PROMIS 10 Mental Scores 56 DPRP Score: 5 Bariatric Surgery VTE Risk Assessment Score Patients will be considered to be at high risk if they have one or more of the following: [] Previous VTE or BMI >/= 60 kg/m2 Or two or more of the following: [] Age > 50 [] BMI >/= 50 kg/m2 [] Male sex [] Recent tobacco use [] Obstructive sleep apnea [] Venous insufficiency/ varicose veins [] OCP or HRT within 30 days of surgery Total: extended VTE prophylaxis [] is [x] is not indicated post bariatric surgery discharge Patients are advised to stop HRT and OCP/ DMPA 1 month prior to surgery and hold for 1 month postop, and use control during this time if appropriate. All patients who take coumadin/ anti-10Ainhibitors preoperatively are referred to the Thrombosis Clinic for recommendations. Review of Systems (negative if left blank): GI: [] dysphagia [] early satiety [] abdominal pain [x] Hernia (sliding HH on UGI) [] prior CT scanabdomen [] nausea/vomiting [] blood in stool [] diarrhea [] constipation [] IBD [] postprandial RUQ pain Neurologic: [x] dizziness (vertigo) [x] chronic headaches(with menses) Cardiovascular: [] history of chest pain, squeezing, pressure [] syncope [] murmur [] palpitations Respiratory: [] shortness of breath [] wheezing : [] hematuria [x] history of renal calculi Musculoskeletal [x] myalgia/arthralgias:ankle, knee, shoulder issues Extremities: [] varicose veins [] edema Skin: [] skinfold rashes [] chronic wounds Endocrine: [] PCOS [] thyroid disease Heme/Lymph: [] excessive bruising [] lymphadenopathy [] iron deficiency history Allergic/ Immun: [] use of steroid/ immunosuppressant for chronic condition Psychiatric [x] depression [x] anxiety/panic attacks (symptoms well managed, no current meds or counseling) [] history of suicide attempt [] addiction [] psychiatric or rehab admissions Visit date Wt (lbs) BMI HT Highest WT 256 - Pre-op 12/20/23 256 45.5 5'3 03/06/24 242 42.8 Post-op WT BMI %EBW lost Physical exam: Vital signs: BP 145/72 (BP Location (NBP): Right arm, Patient Position: Sitting, BP Cuff Sizes: Large Adult (32-43 cm)) Pulse 87 Temp 36.7 ??C (98 ??F) (Temporal) Resp 18 Wt 109.9 kg (242 lb 4.8 oz) SpO2 96% BMI 42.83 kg/m?? Neuro: Non-focal. Psych: conversant, alert and oriented. Behavior:[] defensive [] hostile [] expressive [] quiet [] monopolizing [] argumentative [] insightful [] insightless[] fidgety [x] motivated [] apathetic [] preoccupied [] negativistic [] disruptive [x] attentive Mood: [x] stable [] labile [] depressed [] happy [] anxious [] hypomanic [] intense [] angry [] worrisome [x] flat [] detached [] fearful [] sad ENT: Neck supple with normal ROM, no adenopathy or thyromegaly. Lungs: CTA bilaterally without wheezing. Heart: RRR, no murmur appreciated. Abdomen: Obese, soft, non- tender. Prior incisions: Well healed laparoscopy scars.. Hernias: None. Extremities: no lower extremity edema. Skin: No areas of skin breakdown. Obesity distribution: [x] Central [] Peripheral Assessment/ Plan: 48 y.o. female with severe obesity with obesity-related comorbidities including elevated LFTs, impaired fasting glucose, GERD, and mild functional limitations/ mild impairment of well being. She has had failure to sustain weight loss by medical management and meets the criteria proposed bythe NIH Consensus Guidelines for surgical treatment of severe obesity and the AACE, TOS, ASMBS Clinical Practice Guidelines for the Perioperative Nutritional, Metabolic and Non-surgical Support of the Bariatric Surgery Patient. She is aware that there are non-surgical methods to achieve weight loss. After review of her medical record, history and physical exam, I find her to be a good candidate for bariatric surgery. She is interested in a Elvie-en-Y gastric bypass (Tyesha to Bypass). We discussed the procedures of laparoscopic elvie en y gastric bypass. We discussed the benefits of surgery . We discussed the possibility of poor weight loss and the need to make sustained dietary changes in order for the surgery to be successful. Patient understands the field attendant risks of vitamin deficiencies, internal hernias and ulcers. Patient realizes the need for life long follow up with the bariatric surgery program and understands the importance of the preoperative diet in terms of safety and ability to perform the procedure. Consent was reviewed or signed today. Mental health - Patient was seen in 5D x2 and has discussed with [facility] psychology with plan to see [facility] provider 2 months post op. Eating behaviors and readiness for surgery- Reviewed importance of continuing to work on strategiesto help manage behaviors. Recommend tracking (Go [employer] and [employer] [place]) and measuring food. Goals of 60 g protien/day. S/p Tyesha fundoplication: Swallow study now complete. Pending: Preoperative Group Class CBC and CMP within 6 months of surgery, per MBSAQIP accredited bariatric center guidelines. (Sent to lab today). Ongoing weight loss encouraged She has had an opportunity to have all her questions answered and is in agreement with the plan of care. She was encouraged to call with any questions or concerns. This was a 60 minute visit spent with patient discussing bariatric surgery readiness, risks and benefits. Additional time was spent reviewing previous notes and labs, in care coordination, ordering labs & completing documentation. Kailyn Urbano APRN documented in this encounter Miscellaneous Notes * Initial Assessments - Jessenia Grove RN - 05/30/2024 1:06 PM EDT Office of Care Management Initial Assessment/Discharge Note Jessenia Grove RN reviewed record and discussed patient with Care Team. Source of Information: Team, bedside nurse, medical record, and Chart Review Introduced self/reviewed role; services accepted. Admitted From: Home Reason for Hospitalization: Barrets esophagus, obesity, s/p Laparoscopic tyesha fundoplication takedown, conversion to elvie en y gastric bypass. Past medical History: Past Medical History: Diagnosis Date PTSD (post-traumatic stress disorder) Hospitalizations Within the Past 30 Days: no previous admission in last 30 days Current Decision-Making Capacity: Self If AD's have not been completed the following surrogate would be surrogate decision maker per [place] surrogate decision making law. (Only good for 180 days) Any patient receiving care in [place] must abide by [place] law. The hierarchy for surrogate decision making is: (a) Patient???s spouse or civil union partner unless there is a divorce proceeding, separation agreement, or restraining order limiting that person???s relationship with the patient. (b) Any adult son or daughter of the patient. Barrie Carcamo, child [phone] (c) Either parent of the patient. (d) Any adult brother or sister of the patient. (e) Any adult grandchild of the patient. (f) Any grandparent of the patient. (g) Any adult aunt, uncle, niece, or nephew of the patient. (h) A close friend of the patient. (i) The agent with financial power of contracts attorney or a conservator appointed in accordance with RSA 464-A. (j) The guardian of the patient???s estate. 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 Resource / Environmental Concerns: Home Address listed as: [address] [place] [phone] Social & Family Supports: All names listed below confirmed with patient as current and correct Extended Emergency Contact Information Primary Emergency Contact: Michael Lomeli Address: [address] [place] [phone] [facility] Mobile Relation: Significant Other Secondary Emergency Contact: Jyotsna Cordero Address: [address] [facility] Relation: Mother Substance Use/Abuse listed: Social History Tobacco Use Smoking Status Former Current packs/day: 0.00 Average packs/day: 0.5 packs/day for 6.0 years (3.0 ttl pk-yrs) Types: Cigarettes Start date: 01/25/1991 Quit date: 01/25/1997 Years since quittin.3 Smokeless Tobacco Never 0 No problems reported 1-2 Low level 3-5 Moderate level 6-8 Substantial level 9- 10 Severe level 0 to 7 points: Low risk 8 to 15 points: Medium risk 16 to 19 points: High risk 20 to 40 points: Addiction likely Other Pertinent/Service Specific Information: none Health/Prescription Coverage: Primary Insurance: [place] Payor: [place] / Plan: [place] PRIMARY CARE PLUS / Product Type: *No Product type* / Secondary Insurance: N/A ; Prescription Coverage: Yes Preferred Pharmacy: [facility] - [place], [place] - [address] [facility] [facility] [address] [place], [place] - [address] [address] [facility] [address] [place] [address] - [address] [address] [address] [facility] [address] [facility] [address] Primary Care Provider listed: WANDY Aguilera [phone] Potential Needs for Transition of Care: none Agency Referrals: Not Applicable Transportation: no concerns Transportation Anticipated: health plan transportation Concerns to be Addressed: no discharge needs identified Assessment: Patient is admitted to MIS service for Barrets esophagus, obesity, s/p Laparoscopic tyesha fundoplication takedown, conversion to elvie en y gastric bypass. Plan going forward: Discharge home without services. Care Management team will continue to follow and assist with discharge planing and coordination of care as indicated. MARLYN Maxwell, dial mounter of Care Management Pager [phone] * Plan of Care - Feli Wills RN - 05/30/2024 2:21 AM EDT Vianney's main concern this shift was her blood pressure. Her BP was in the 180s at start of shift. This was reported to the doctor, who ordered labetalol x1. Meds per JAN. Her BP did improve and she is in the 150s currently. Can ambulate to the bathroom, but does so infrequently, and voids large amounts when she does. Pain is a concern but it is under control and/or improving throughout the shift. Currently sleeping at this time. Continue to monitor. Problem: Bleeding (Surgery Nonspecified) Goal: Absence of Bleeding Outcome: Ongoing (Interventions Implemented as Appropriate) Problem: Bowel Motility Impaired (Surgery Nonspecified) Goal: Effective Bowel Elimination Outcome: Ongoing (Interventions Implemented as Appropriate) Problem: Infection (Surgery Nonspecified) Goal: Absence of Infection Signs and Symptoms Outcome: Ongoing (Interventions Implemented as Appropriate) Problem: Ongoing Anesthesia Effects (Surgery Nonspecified) Goal: Anesthesia/Sedation Recovery Outcome: Ongoing (Interventions Implemented as Appropriate) Problem: Pain (Surgery Nonspecified) Goal: Acceptable Pain Control Outcome: Ongoing (Interventions Implemented as Appropriate) Problem: Postoperative Nausea and Vomiting (Surgery Nonspecified) Goal: Nausea and Vomiting Relief Outcome: Ongoing (Interventions Implemented as Appropriate) Problem: Postoperative Urinary Retention (Surgery Nonspecified) Goal: Effective Urinary Elimination Outcome: Ongoing (Interventions Implemented as Appropriate) Problem: Pain Acute Goal: Acceptable Pain Control and Functional Ability Outcome: Ongoing (Interventions Implemented as Appropriate) Problem: Adult Inpatient Plan of Care Goal: Plan of Care Review Outcome: Ongoing (Interventions Implemented as Appropriate) Goal: Patient-Specific Goal (Individualized) Outcome: Ongoing (Interventions Implemented as Appropriate) Goal: Absence of Hospital-Acquired Illness or Injury Outcome: Ongoing (Interventions Implemented as Appropriate) Goal: Optimal Comfort and Wellbeing Outcome: Ongoing (Interventions Implemented as Appropriate) Goal: Readiness for Transition of Care Outcome: Ongoing (Interventions Implemented as Appropriate) * Op Note - Ladan Damon MD - 05/29/2024 8:19 AM EDT [facility] Operative Note Patient Name: Vianney Cordero : [id number] MR#: [id number] Case Date: 05/29/2024 Surgeon: Surgeons and Role: * Ladan Damon MD - Primary * lEly Zuleta MD - Resident - Assisting Preoperative diagnosis: Severe Obesity, history of Tyesha fundoplication/Mix's Postoperative diagnosis: Severe Obesity, history of Tyesha fundoplication/Mix's Procedure(s) (LRB): @LAPAROSCOPIC GASTROPLASTY W/ ELVIE-EN-Y CONSTRUCTION (WRVU 29.4) (N/A) EGD, UPPER GI ENDOSCOPY (WRVU 2.09) (N/A) LAPAROSCOPIC TAKEDOWN PREVIOUS TYESHA (WRVU 48.75) (N/A) MODIFIER, HIATAL HERNIA (N/A) Findings: 1) Mildly fatty liver 2) Small hiatal hernia, repaired with posterior cruroplasty 3) Previous wrap taken down. Dense adhesions present requiring ~2 hours of lysis. Portion of funduswithout blood supply resected and removed. Endoscopy without evidence of esophageal or gastric pouch injury. 4) Converted to RYGB, Negative leak test Anesthesia: General Estimated Blood Loss: 79 mL Specimens removed during surgery: Order Name Source Comment Collection Info Order Time SPECIMEN TO PATHOLOGY OR26 Morbid Obesity portion of stomach - perm resection No 05/29/2024 10:43 AM Time specimen removed from patient: 10:42 AM Number of tissue samples (in container) 1 Biospecimen to store? No Drains: None Surgical Closure: Primary Closure - skin incision is completely closed without any wires, danya, drains or other devices Disposition: awakened from anesthesia, extubated and taken to the recovery room in a stable condition, having suffered no apparent untoward event. Condition: doing well without problems (Please see the Surgical Encounter Summary for any Implant and Specimen details pertinent to this patient.) HPI/Indications for procedure: This 48 y.o. female presented to the Bariatric Program with a history of weight-related problems including significant weight-related comorbidities. She meets the NIH criteria for gastric bypass. The risks and benefits of the procedure were explained and she chose to undergo this procedure laparoscopically. She has a history of Mix's esophagus and a prior tyesha fundoplication. Description of procedure: The patient was brought back to the operating room and placed in supine position. IV antibiotics were infused and pneumoboots were placed. She received Lovenox in the preop holding area. Under general anesthesia and endotracheal intubation, the patient was prepped and draped in the supine position.After injection with 0.25% marcaine, a small incision was made approximately 15 cm below the xiphoid from the left of midline. The abdomen was then entered using the optiview trocar system using an 11-mm port. The abdomen was then insufflated to 15 mm Hg without difficulty. A 45-degree telescope was inserted, and under direct vision, two 5-mm ports were placed in the left upper quadrant forming the first arm of a V with the scope at the apex. A 5-mm port was placed approximately 15-cm along the right costal margin, through which a liver retractor was placed and used to elevate the left lobe of the liver, thus exposing the hiatal region. This was fixed in good position using the mechanical arm. A 5-mm port was placed approximately 10 cm along the right costal margin and a 12- mm port was placed approximately 4 cm below this. Bilateral laparoscopic TAP blocks were placed using 40 cc of 0.25% Marcaine on each side, injected in two locations. Inspection of the hiatus revealed an intact fundoplication below the diaphragm, with a small hiatalhernia. There were dense adhesions of the wrap to the prior diaphragm closure. Slowly and carefullythe adhesions to the wrap, around the esophagus and the crura were taken down sharply. Eventually the posterior aspect of the esophagus was identified and encircled with a Lincoln drain. This was used for further traction to complete the fabiana-esophageal dissection. An upper endoscopy was introducedto verify to location of the esophagus and revealed no evidence of injury. There was a small recurrent hiatal hernia that was then closed with multiple interrupted 0 Surgilon sutures placed behind the esophagus. The fundoplication was completely unwrapped and placed in normal anatomic location. The Tho was then removed. We created a small window along the vasculature of the lesser curve, approximately 5 cm from the hiatus. Eventually, the vasculature was from the lesser curve and the posterior, lesser sac was entered. A firing of an endo-NIRANJAN 60 stapler with a purple load in a transverse direction across the stomach was performed. The stapler was then fired multiple times with gray loads until a small narrow pouch was created. The pouch accommodated a volume of approximately 20 cc to 30 cc. Two additional staple fires were used to divide the portion of remnant stomach without blood supply(short gastrics had been taken down at the time of her prior Tyesha). The removed portion of stomach was placed in a specimen retrieval bag for later removal. The endoscope was then reintroduced and a leak test of the pouch and esophagus was reformed with insufflation under irrigation. This was negative. The patient was then placed into some Trendelenburg position. The omentum and transverse colon reflected cephalad. The ligament of Treitz was identified and dissection was carried along approximately 40 cm from the ligament of Treitz. A small window was made in the small bowel mesentery and a stapler was introduced through this to create a firing of the stapler and divide the small bowel. The harmonic scalpel was used to divide the mesentery for a Elvie limb. At a point approximately 100 cm, the distal bowel was chosen to create the [id number] jejunojejunostomy. The duodenal, afferent limb was approximated to the side wall of the jejunum at the 100-cm hetal. Enterotomies were made in both and a single firing of an EndoGIA gray load was used to create anastomosis. The resultant defect was sewn in two layers of running 3-0 v loc suture. A split was made in the omentum using the harmonic scalpel just above the transverse colon and the Elvie limb fed through this. Two stay stitches in the side wall of the Elvie limb were approximated to the end of the gastric pouch. An enterotomy was made in the gastric pouch and the jejunostomy and a partial-length firing of the NIRANJAN-45 gray stapler was used to create the anastomosis between this pouch and the jejunum. The resultant enterotomy defect was closed with a running 3-0 v loc suture in two layers with a 30 [place] Bougie (blunt-tipped) in place. The Bougie was then removed and the Elvie limb clamped with a bowel clamp. The endoscope was introduced and the pouch and anastomosis was insufflated under saline. Inspection of the anastomosis did not reveal any leak. It appeared to be patent and allowed passage of an endoscope without resistance. The mesenteric defect behind the J-J anastomosis was then closed with a running 3-0 vloc suture. Woods's defect below the transverse colon was also closed with a running 3-0 vloc. Inspection of the abdomen revealed excellent hemostasis. All ports were then removed under direct vision and the skin was closed with running subcuticular 4-0 Monocryl suture, followed by Dermabond. The patient returned to the Recovery Room in stable conditions. Sponge, instrument and needle counts were correct. I was the attending physician supervising the resident in the above care and I was present with theresident for the entire procedure. Surgical Infection Prevention Bundle Used? N/A documented in this encounter Plan of Treatment Upcoming Encounters Date Type Department Care Team (Late st Contact Info) Description 12/31/2024 10:00 AM EST Office Visit [place] [address] Mercy Amanda MD [facility] [address] 04/01/2025 2:00 PM EDT Office Visit [place] [address] Erum Szymanski MD [facility] [place] [address] documented as of this encounter Goals Goal Patient Goal Type Associated Problems Recent Progress Patient-Stated? Author continue to track in an celso Lifestyle No Asha Medina MD Note: Try [...] a priority: - Eggs - Cheese - Maldivian yogurt / cottage cheese - meat - fish - nuts/seeds - protein shake or bar Start with the protein, can choose to add other foods (would rather have you choose regular bread/ taiwanese muffin, etc. - whole wheat if possible- [...] more details documented as of this encounter Procedures Procedure Name Priority Date/Time Associated Diagnosis Comments HEMOGRAM Routine 05/30/2024 4:24 AM EDT DIFFERENTIAL, AUTOMATED Routine 05/30/2024 4:24 AM EDT CBC (WITH DIFF) Routine 05/30/2024 4:24 AM EDT PHOSPHORUS Routine 05/30/2024 4:24 AM EDT MAGNESIUM Routine 05/30/2024 4:24 AM EDT BASIC METABOLIC PANEL Routine 05/30/2024 4:24 AM EDT SPECIMEN TO PATHOLOGY Routine 05/29/2024 10:43 AM EDT SURGICAL PATHOLOGY REPORT Routine 05/29/2024 10:42 AM EDT MODIFIER, HIATAL HERNIA 05/29/2024 7:40 AM EDT Morbid Obesity Unlisted Laparoscopic Procedure Esophagus (33995) 05/29/2024 7:40 AM EDT Morbid Obesity Upper GI Endoscopy, Diagnostic (26905) 05/29/2024 7:40 AM EDT Morbid Obesity Lap Gastric Bypass/Elvie-En-Y (60236) 05/29/2024 7:40 AM EDT Morbid Obesity UPPER GI ENDOSCOPY Routine 05/29/2024 6: 08 AM EDT LAPAROSCOPIC TAKEDOWN PREVIOUS TYESHA Routine 05/29/2024 6:08 AM EDT LAPAROSCOPIC GASTROPLASTY, G\SURG Routine 05/29/2024 6:08 AM EDT documented in this encounter Results * (ABNORMAL) Differential, Automated (05/30/2024 4:24 AM EDT) Pathologist [facility] Neutrophil % 76.8 % [facility] Neutrophil Absolute 9.06(H) 1.70 - 6.10 x10(3)/[facility] Lymph % 15.2 % [facility] Lymphocytes Abs 1.8 0.9 - 3.2 x10(3)/[facility] Monocyte % 7.6 % [facility] Monocyte Abs 0.9 0.3 - 0.9 x10(3)/[facility] Eos % 0.0 % [facility] Eosinophils Abs 0.0 0.0 - 0.4 x10(3)/[facility] Basophil % 0.1 % [facility] Baso Absolute 0.0 0.0 - 0.1 x10(3)/[facility] Immature Gran % 0.30 % [facility] Comment: Immature granulocytes(IG's)percentage and absolute count will include metamyelocytes, myelocytes, and promyelocytes. Blood smears from CBCs yielding IG's will be scanned manually for concordance. If this scan disagrees with the automated IG or if promyelocytes are noted, a manual differential will be performed. Immature Gran Absolute 0.04 0.00 - 0.04 x10(3)/[facility] Blood 05/30/2024 4:24 AM EDT 05/30/2024 4:38 AM EDT Narrative Resulting Agency Comment Spec In Lab Elly Zuleta MD HEMATOLOGY ORDERABLE S [facility] [place] [address] * (ABNORMAL) Hemogram (05/30/2024 4:24 AM EDT) Pathologist [facility] White Blood Cell 11.8(H) 4.0 - 9.5 x10(3)/[facility] Red Blood Cell 4.31 4.00 - 5.21 x10(6)/mc L [facility] Hemoglobin 12.9 11.7 - 15.5 g/dL [facility] Hematocrit 38.1 35.7 - 45.8 % [facility] Mean Cell Volume 88.4 82.6 - 94.4 fL [facility] Mean Cell Hemoglobin 29.9 27.1 - 32.0 pg [facility] Mean Cell Hemoglobin Concentration 33.9 31.7 - 35.0 g/dL [facility] Platelet 287 145 - 357 x10(3)/mc L [facility] RDW Standard Deviation 38.7 37.0 - 46.0 fL [facility] RDW coefficient of variation 12.1 11.5 - 14.1 % [facility] Mean Platelet Volume 9.7 7.6 - 12.9 fL [facility] NRBC% auto 0.0 % [facility] NRBC Absolute 0.000 0.000 - 0.000 x10(3)/mc L [facility] Blood 05/30/2024 4:24 AM EDT 05/30/2024 4:38 AM EDT Narrative Resulting Agency Comment Spec In Lab Elly Zuleta MD HEMATOLOGY ORDERABLE S Performing Organization Address City/[facility]/ZIP Co de Phone Number [facility] [place] [address] * Phosphorus (05/30/2024 4:24 AM EDT) Phosphorus 3.7 2.5 - 4.5 mg/dL [facility] Blood 05/30/2024 4:24 AM EDT 05/30/2024 4:38 AM EDT Narrative Resulting Agency Comment Spec In Lab Ladan Damon MD CHEMISTRY ORDERABLE S [facility] [place] [address] * Magnesium (05/30/2024 4:24 AM EDT) Magnesium 0.92 0.69 - 1.07 mmol/L [facility] Blood 05/30/2024 4:24 AM EDT 05/30/2024 4:38 AM EDT Narrative Resulting Agency Comment Spec In Lab Ladan Damon MD CHEMISTRY ORDERABLE S [facility] [place] [address] * (ABNORMAL) Basic Metabolic Panel (non-fasting) (05/30/2024 4:24 AM EDT) Glucose 134 65 - 199 mg/dL [facility] Comment:Diabetes: >=200 mg/d L plus symptoms Blood Urea Nitrogen 11 8 - 18 mg/dL [facility] Creatinine 0.68(L) 0.70 - 1.20 mg/dL [facility] Sodium 138 135 - 145 mmol/L [facility] Potassium 3.9 3.5 - 5.0 mmol/L [facility] Comment: Please note: ??Patients with WBC >100,000 may have falsely elevated Potassium levels. ??For accurate Potassium quantification in these patients send serum separator tube (gold top) for subsequent determinations. ??Contact the Clinical Chemistry Laboratory if there are any questions. Chloride 106 98 - 107 mmol/L [facility] Carbon Dioxide 21(L) 22 - 31 mmol/L [facility] Anion Gap 11 5 - 15 mmol/L [facility] Calcium 9.0 8.5 - 10.5 mg/dL [facility] Est Glomerular Filtration Rate 108 >=60 mL/min/1. 73 m?? [facility] Comment: This patient's estimated GFR was [...] urine creatinine clearance. Assignment of CKD stage 1-5 for patients with an eGFR near the transition point between stages may be based on clinical assessment of muscle mass and symptoms in addition to eGFR. Blood 05/30/2024 4:24 AM EDT 05/30/2024 4:38 AM EDT Narrative Resulting Agency Comment Spec In Lab Ladan Damon MD CHEMISTRY ORDERABLE S Performing Organization Address [facility] Co de Phone Number [facility] [place] [address] * Specimen to Pathology (05/29/2024 10:43 AM EDT) AP Specimen 05/29/2024 10:4 3 AM EDT 05/29/2024 10:43 AM EDT Narrative [facility] - 05/29/2024 10:43 AM EDT Specimen requisition ordered. ??Separate Pathology report to follow Ladan Damon MD PATHOLOGY/CYTOLOGY ORDERABLES Performing Organization Address [facility] Co de Phone Number [facility] [place] [address] * Surgical Pathology Report (05/29/2024 10:42 AM EDT) Final Diagnosis [id number] ? Location: PACU; [facility]; A The signing pathologist has (i) examined the relevant preparation(s) for the specimen(s) and (ii) rendered or confirmed the diagnosis(es). . ?Surgical Pathology DIAGNOSIS A - Portion of stomach - perm, resection: - Segment of stomach lined with unremarkable fundic gland mucosa. Electronically signed by: ?Ronald RIVAS, Samira Verified: ??06/03/2024 11:58 ??Pathologist Performed at: ??-[facility] Dept. of Pathology, [place] [address] [employer]surface [employer] Elint Operator: Ayad Dee MD, AP, ??CLIA Certificate: [id number] SPECIMEN(S) SUBMITTED A - Portion of stomach - perm, resection (1) CLINICAL INFORMATION Morbid obesity SPECIMEN PROCESSING A - Labeled/Fixative : Portion of stomach, fresh. Quantity/Size: ??Single, 7.0 x 3.5 x 3.0 cm. Tissue Description: Longitudinal, wedge resection of stomach. ??The serosa is pink, smooth and glistening with focal fibrous adhesions (inked blue). ??The mucosa is red with the usual rugal folds. ??There is a 2.0 x 1.5 x 1.0 cm diverticulum. Sections/Process ing: Ballistics Professor sections in 1 cassettes as follows: ?A1: ??Ballistics Professor diverticulum ??sns 06/03/2024 11:58 AM EDT [facility] STOMACH STRUCTURE / Unknown 05/29/2024 10:42 AM EDT 05/29/2024 10:42 AM EDT Ladan Damon MD PATHOLOGY/CYTOLOGY ORDERABLES [facility] [place] [address] documented in this encounter Visit Diagnoses Not on filedocumented in this encounter Admitting Diagnoses Diagnosis S/P bariatric surgery Bariatric surgery status documented in this encounter Administered Medications Inactive Administered Medications - up to 3 most recent administrations Medication Order MAR Action Action Date Dose Rate Site BUPivacaine (pf) (Marcaine) (2.5 mg/mL) 0.25% injection PRN, Starting on Brittny 05/29/24 at 1132, Until Sun05/30/24 at 1632, Intra-Operative (Intra-Procedure), Routine Given 05/29/2024 12:42 PM EDT 3 mLs 19- Surgical Site Given 05/29/2024 11:32 AM EDT 87 mLs 1 9- Surgical Site enoxaparin (Lovenox) (40 mg/0.4 mL) subcutaneous injection 40 mg 40 mg, Subcutaneous, EVERY 12 HOURS SCHEDULED (2 times per day), First dose on Brittny 05/29/24 at 2100, Until Discontinued, Routine Given 05/30/2024 8:14 AM EDT 40 mg Given 05/29/2024 8:59 PM EDT 40 mg HYDROmorphone (Dilaudid) (1 mg/ml) oral liquid 2 mg 2 mg, Oral, EVERY 4 HOURS PRN, Starting on Brittny 05/29/24 at 1329, Until Sun05/30/24 at 1632, Pain, pain >6 not controlled with acetaminophen or ketorolac, Routine Given 05/29/2024 7:59 PM EDT 2 mg Given 05/29/2024 3:44 PM EDT 2 mg ketorolac (Toradol) (15 mg/mL) injection 15 mg 15 mg, Intravenous, EVERY 8 HOURS, 6 doses, First dose on Brittny 05/29/24 at 1345, Last dose on Sun05/31/24 at 0545, Routine Given 05/30/2024 2:00 PM EDT 15 mg Given 05/30/2024 5:34 AM EDT 15 mg Given 05/29/2024 8:59 PM EDT 15 mg lactated ringers infusion 1,000 mL, at 125 mL/hr, Intravenous, CONTINUOUS, Starting on Brittny 05/29/24 at 1345, Until Sun05/30/24 at 1632 New Bag 05/30/2024 5:35 AM EDT 1,000 mLs 125 m L/hr New Bag 05/29/2024 9:03 PM EDT 1,000 mLs 125 mL/hr New Bag 05/29/2024 1:36 PM EDT 1,000 mLs 125 mL/hr ondansetron (pf) (Zofran) (2 mg/mL) injection 4 mg 4 mg, Intravenous, EVERY 8 HOURS SCHEDULED, First dose on Brittny 05/29/24 at 1415, Until Discontinued, For nausea please use ondansetron as the first choice; prochlorperazine as a second choice. Call provider if not effective. Given 05/29/2024 2:08 PM EDT 4 mg pantoprazole (Protonix) injection 40 mg 40 mg, Intravenous, DAILY, First dose on Brittny 05/29/24 at 1515, Until Discontinued, Reconstitute with 10 mL of normal saline to a concentration of 4 mg/mL and inject slowly over 2 minutes. Given 05/30/2024 8:14 AM EDT 40 mg Given 05/29/2024 3:45 PM EDT 40 mg prochlorperazine (Compazine) (5 mg/mL) injection 10 mg 10 mg, Intravenous, EVERY 6 HOURS PRN, Starting on Brittny 05/29/24 at 1359, Until Sun05/30/24 at 1632, Nausea, Vomiting, For nausea please use ondansetron as the first choice; prochlorperazine as a second choice. Call provider if not effective., Routine Given 05/29/2024 5:26 PM EDT 10 mg sodium chloride 0.9 % (flush) (BD PosiFlush Normal Saline 0.9) flush 5 mL 5 mL, Intravenous, 2 TIMES DAILY, First dose on Brittny 05/29/24 at 2100, Until Discontinued, Recovery (Recovery-Hospital Unit), Routine Given 05/30/2024 8:14 AM EDT 5 mLs Given 05/29/2024 9:00 PM EDT 5 mLs documented in this encounter Active and Recently Administered Medications Times are shown in EDT. Scheduled Medication Order 05/28/2024 05/29/2024 05/30/2024 acetaminophen (Ofirmev) (1,000 mg/100 mL) infusion 1,000 mg () 1,000 mg, Intravenous, at 400 mL/hr, Administer over 15 Minutes, EVERY 8 HOURS SCHEDULED, 3 doses, First dose on Brittny 05/29/24 at 2115, Last dose on Sun05/30/24 at 0515, Maximum dose of acetaminophen is 4,000 mg from all sources in 24 hours. When ordered for pain, acetaminophen should be given even when other ordered pain medications are indicated., Routine, Is ketorolac (Toradol) IV contraindicated? No, Can this patient tolerate oral medications or suppositories? No 2058 (Given - Provider: Feli Wills RN) 0534 (Given - Provider: Feli Wills RN)1315 (Due - Provider: Suzie Tom [facility]) acetaminophen (Ofirmev) (1,000 mg/100 mL) infusion 1,000 mg (COMPLETED) 1,000 mg, Intravenous, at 400 mL/hr, Administer over 15 Minutes, ONCE, 1 dose, On Brittny 05/29/24 at 1300, Maximum dose of acetaminophen is 4,000 mg from all sources in 24 hours. When ordered for pain, acetaminophen should be given even when other ordered pain medications are indicated., Routine, Is ketorolac (Toradol) IV contraindicated? Yes, Can this patient tolerate oral medications or suppositories? No 1315 (Given - Provider: Justine Victoria, [facility]IM[facility]) acetaminophen (Tylenol) tablet 975 mg (COMPLETED) 975 mg, Oral, ONCE, 1 dose, On Brittny 05/29/24 at 0630, Maximum dose of acetaminophen is 4,000 mg from all sources in 24 hours. When ordered for pain, acetaminophen should be given even when other ordered pain medications are indicated., Day of Surgery (Day of Procedure), Routine 644 (Given - Provider: Barb Jimenez RN) celecoxib (CeleBREX) capsule 400 mg (COMPLETED) 400 mg, Oral, ONCE, 1 dose, On Brittny 05/29/24 at 0630, Day of Surgery (Day of Procedure), Routine 706 (Given - Provider: Barb Jimenez RN) enoxaparin (Lovenox) (40 mg/0.4 mL) subcutaneous injection 40 mg (COMPLETED) 40 mg, Subcutaneous, ONCE, 1 dose, On Brittny 05/29/24 at 0630, To be given in preop area, Day of Surgery (Day of Procedure), Routine 706 (Given - Provider: Barb Jimenez RN) enoxaparin (Lovenox) (40 mg/0.4 mL) subcutaneous injection 40 mg 40 mg, Subcutaneous, EVERY 12 HOURS SCHEDULED (2 times per day), First dose on Brittny 05/29/24 at 2100, Until Discontinued, Routine 2058 (Given - Provider: Feli Wills RN) 0814 (Given - Provider: Lorena Mathias RN) ketorolac (Toradol) (15 mg/mL) injection 15 mg 15 mg, Intravenous, EVERY 8 HOURS, 6 doses, First dose on Brittny 05/29/24 at 1345, Last dose on 05/31/24 at 0545, Routine 1331 (Given - Provider: Justine Victoria RN)2059 (Given - Provider: Feli Wills RN) 0534 (Given - Provider: Feli Wills RN)1400 (Given - Provider: Lorena Mathias RN) labetaloL (Normodyne) (5 mg/mL) injection solution 10 mg (COMPLETED) 10 mg, Intravenous, ONCE, 1 dose, On Brittny 05/29/24 at 2030, Routine 2057 (Given - Provider: Feli Wills RN) ondansetron (pf) (Zofran) (2 mg/mL) injection 4 mg 4 mg, Intravenous, EVERY 8 HOURS SCHEDULED, First dose on Brittny 05/29/24 at 1415, Until Discontinued, For nausea please use ondansetron as the first choice; prochlorperazine as a second choice. Call provider if not effective. 1408 (Given - Provider: Justine Victoria RN)2200 (Not Given - Provider: Feli Wills RN - Reason: See comment - Comment: no nausea) 0600 (Not Given - Provider: Feli Wills RN - Reason: Patient/family refused - Comment: no nausea)1400 (Not Given - Provider: Lorena Mathias RN - Reason: Patient/family refused) pantoprazole (Protonix) injection 40 mg 40 mg, Intravenous, DAILY, First dose on Brittny 05/29/24 at 1515, Until Discontinued, Reconstitute with 10 mL of normal saline to a concentration of 4 mg/mL and inject slowly over 2 minutes. 1545 (Given - Provider: Pedro Craig RN) 0814 (Given - Provider: Lorena Mathias RN) sodium chloride 0.9 % (flush) (BD PosiFlush Normal Saline 0.9) flush 5 mL 5 mL, Intravenous, 2 TIMES DAILY, First dose on Brittny 05/29/24 at 2100, Until Discontinued, Recovery (Recovery-Hospital Unit), Routine 2100 (Given - Provider: Feli Wills RN) 0814 (Given - Provider: Lorena Mathias RN) Continuous Medication Order 05/28/2024 05/29/2024 05/30/2024 lactated ringers infusion (CANCELED) 50 mL/hr, Intravenous, CONTINUOUS, Starting on Brittny 05/29/24 at 0630, Until Brittny 05/29/24 at 1455, Day of Surgery (Day of Procedure) 0648 (New Bag - Provider: Barb Jimenez, RN)0812 (Rate/Dose Change - Provider: Filiberto Castro MD)1017 (Paused - Provider: Filiberto Castro MD - Comment: Switch to gravity)1018 (Restarted - Provider: Filiberto Castro MD)1234 (Anesthesia Volume Adjustment - Provider: Filiberto Castro MD) lactated ringers infusion 1,000 mL, at 125 mL/hr, Intravenous, CONTINUOUS, Starting on Brittny 05/29/24 at 1345, Until Sun05/30/24 at 1632 1336 (New Bag - Provider: Justine Victoria RN)2103 (New Bag - Provider: Feli Wills, NIMCO) 0535 (New Bag - Provider: Feli Wills RN) PRN Medication Order 05/28/2024 05/29/2024 05/30/2024 BUPivacaine (pf) (Marcaine) (2.5 mg/mL) 0.25% injection (CANCELED) PRN, Starting on Brittny 05/29/24 at 1132, Until Sun05/30/24 at 1632, Intra-Operative (Intra-Procedure), Routine 1132 (Given - Provider: Ladan Damon MD)1242 (Given - Provider: Ladan Damon MD - Comment: Site: Abdomen) HYDROmorphone (Dilaudid) (0.2 mg/1 mL) injection syringe 0.2 mg (CANCELED) 0.2 mg, Intravenous, EVERY 2 HOURS PRN, Starting on Brittny 05/29/24 at 1329, Until Sun05/30/24 at 1102, Pain, pain >6 refractory to acetaminophen, ketorolac, or PO Dilaudid; or if unable to take PO, For breakthrough pain not responsive to oxyCODONE or if patient is unable to tolerate PO due to nausea., Routine 1347 (Given - Provider: Justine Victoria RN)1726 (Given - Provider: Pedro Craig RN) 0102 (Given - Provider: Feli Wills RN)0814 (Given - Provider: Lorena Mathias RN) HYDROmorphone (Dilaudid) (1 mg/ml) oral liquid 2 mg 2 mg, Oral, EVERY 4 HOURS PRN, Starting on Brittny 05/29/24 at 1329, Until Sun05/30/24 at 1632, Pain, pain >6 not controlled with acetaminophen or ketorolac, Routine 1544 (Given - Provider: Pedro Craig RN)1959 (Given - Provider: Feli Wills RN)1999 (Canceled Entry - Provider: Feli Wills RN - Reason: Entered in Error - Comment: found that it was documented at 1958) lidocaine (Xylocaine) 1% (10 mg/mL) injection 3 mg 3 mg (0.3 mL), Subcutaneous, ONCE PRN, 1 dose, Starting on Brittny 05/29/24 at 1455, Until Sun05/30/24 at 1632, for discomfort with PIV insertion, Recovery (Recovery-Hospital Unit), Routine prochlorperazine (Compazine) (5 mg/mL) injection 10 mg 10 mg, Intravenous, EVERY 6 HOURS PRN, Starting on Brittny 05/29/24 at 1359, Until Sun05/30/24 at 1632, Nausea, Vomiting, For nausea please use ondansetron as the first choice; prochlorperazine as a second choice. Call provider if not effective., Routine 1726 (Given - Provider: Pedro Craig RN) sodium chloride 0.9 % (flush) (BD PosiFlush Normal Saline 0.9) flush 5-20 mL 5-20 mL, Intravenous, EVERY 1 MIN PRN, Starting on Brittny 05/29/24 at 1455, Until Sun05/30/24 at 1632, flush, Flush pertains to all indwelling lines. Flush per protocol found in the job aid using the link provided on this medication record., Recovery (Recovery-Hospital Unit), Routine documented in this encounter Care Teams Deck Engineer Relationship Specialty Start Date End Date Sonido Cordoba PA [address] [place] [address] PCP - General Family Medicine 07/06/20 documented as of this encounter
--- OUTSIDE RECORDS SUMMARY | 2024-10-16 17:36 | XMS_ITS | Encounter Summary ---
Author Organization [facility] Address [facility] [place] [address] Care Team Providers Care Acid Supervisor Name Role Phone Sonido Cordoba Primary Care Provider [phone]- [phone] Encounter Details Date Type Department Care Team (Latest Contact Info) Description 02/25/2024 7:49 AM EDT - 02/25/2024 11:59 PM EDT Hospital Encounter XRay at [address] [place] [address] Chrystal Damon MD [facility] [place] [address] History of Addie fundoplication Discharge Disposition: Home Social History Tobacco Use Types Packs/Day Years [...] on file documented as of this encounter Medications at Time of Discharge Medication Sig Dispensed Refills Start Date End Date albuteroL (Ventolin HFA) 90 mcg/actuation inhaler (HFA) Inhale 2 puff as directed every four to six hours as needed 10/21/2021 pantoprazole EC (Protonix) [address] tabletIndications:[place] tt's esophagus without dysplasia,Gastroesophag eal reflux disease with esophagitis, unspecified whether hemorrhage Take 1 tablet by mouth 2 times daily. (30 minutes before meals) 180 tablet 3 11/13/2023 cyclobenzaprine (Flexeril) 10 mg Tablet Take 10 mg by mouth 3 times daily as needed for Muscle spasms. meclizine (ANTIVERT) 12.5 mg Tablet Take 12.5 mg by mouth 3 times daily as needed. Phentermine (Lomaira) 8 mg tabletIndications:Class 3 severe obesity with serious comorbidity and body mass index (BMI) of 40.0 to 44.9 in adult, unspecified obesity type Take 1 tablet by mouth 2 times daily. 60 tablet 1 02/04/2024 04/16/2024 metFORMIN XR (Glucophage XR) 500 mg ER 24 hr tabletIndications:Class 3 severe obesity with serious comorbidity and body mass index (BMI) of 40.0 to 44.9 in adult, unspecified obesity type,Insulin resistance take 4 tablets by mouth daily with dinner 360 tablet 1 10/12/2023 04/17/2024 acetaminophen (Tylenol) 500 mg Tablet Take 1,000 mg by mouth every 6 hours as needed for Pain. 05/30/2024 traZODone (DESYREL) 50 mg Tablet nightly as needed. 0 02/08/2016 documented as of this encounter Plan of Treatment Upcoming Encounters Date Type Department Care Team (Late st Contact Info) Description 12/31/2024 10:00 AM EST Office [place] [phone] Mercy Amanda MD [facility] [address] [facility] [address] 04/01/2025 2:00 PM EDT Office [place] [address] Erum Zurita MD [facility] [place] [address] documented as of this encounter Goals Goal [...] a priority: - Eggs - Cheese - British yogurt / cottage cheese - meat - fish - nuts/seeds - protein shake or bar Start with the protein, can choose to add other foods (would rather have you choose regular bread/ georgian muffin, etc. - whole wheat if possible- [...] Lifestyle On track(2022 9:48 AM EDT) No Cross, Sunita M, RD Note: Eating behaviors to practice prior [...] Procedure Name Priority Date/Time Associated Diagnosis Comments XR FLUORO BARIUM SWALLOW (DOUBLE CONTRAST) Routine 02/25/2024 8:40 AM EDT History of Addie fundoplication documented in this encounter Results * XR Fluoro Esophagram (Double Contrast) (02/25/2024 8:40 AM EDT) WORKSTATION ID [id number] [facility] Anatomical Region Laterality Modality N/A Radio Fluoroscop y Impressions 02/25/2024 10:51 AM EDT 1. ??Intact Addie fundoplication. 2. ??Small sliding-type hiatal hernia. 3. ??Mild esophageal dysmotility. I have personally reviewed the image(s) and the resident's interpretation and agree with the findings, Larry Wesley MD at 02/25/2024 10:51 AM Thank you for letting us participate in the care of this patient. ??If you are a health care provider and have any questions regarding this report, please contact the number below. ??For patients who have questions please contact the health congregational care pastor that requested your imaging first. ? Narrative 02/25/2024 10:51 AM EDT EXAMINATION: XR FLUORO ESOPHAGRAM (DOUBLE CONTRAST) CLINICAL HISTORY: please assess for hiatal hernia. ??S/p Addie Z98.890, Other specified postprocedural states TECHNIQUE: Double contrast esophagram was performed. Fluoroscopic spot films were obtained. A 13 mm barium tablet was administered. Fluoro time: 1.25 minutes COMPARISON: None FINDINGS: The esophagus is normal in course and caliber, and is well distended on double contrast views. ??The mucosal pattern is normal. Expected appearance post Addie's fundoplication. There is a small sliding hiatal hernia, Addie wrap is variably above the diaphragm with Valsalva. Mild esophageal dysmotility characterized by bolus splitting and to and fro motion. No gastroesophageal reflux was elicited with provocative maneuvers. A 13 mm barium tablet was swallowed without issue and passed promptly into the stomach. Procedure Note Larry Wesley MD - 02/25/2024 EXAMINATION: XR FLUORO ESOPHAGRAM (DOUBLE CONTRAST) CLINICAL HISTORY: please assess for hiatal hernia. S/p Addie Z98.890, Other specified postprocedural states TECHNIQUE: Double contrast esophagram was performed. Fluoroscopic spot films wereobtained. A 13 mm barium tablet was administered. Fluoro time: 1.25 minutes COMPARISON: None FINDINGS: The esophagus is normal in course and caliber, and is well distended ondouble contrast views. The mucosal pattern is normal. Expected appearance post Addie's fundoplication. There is a small sliding hiatal hernia, Addie wrap is variably abovethe diaphragm with Valsalva. Mild esophageal dysmotility characterized by bolus splitting and to andfro motion. No gastroesophageal reflux was elicited with provocative maneuvers. A 13 mm barium tablet was swallowed without issue and passed promptly intothe stomach. IMPRESSION 1. Intact Addie fundoplication. 2. Small sliding-type hiatal hernia. 3. Mild esophageal dysmotility. I have personally reviewed the image(s) and the resident's interpretationand agree with the findings, Larry Wesley MD at 02/25/2024 10:51 AM Thank you for letting us participate in the care of this patient. If youare a health care provider and have any questions regarding this report,please contact the number below. For patients who have questions please contactthe health congregational care pastor that requested your imaging first. Chrystal Damon MD IMG FLUORO ORDERABL ES documented in this encounter Visit Diagnoses Diagnosis History of Addie fundoplication documented in this encounter Administered Medications Inactive Administered Medications - up to 3 most recent administrations Medication Order MAR Action Action Date Dose Rate Site barium sulfate (E-Z Disk) tablet 0-700 mg 0-700 mg, Oral, ONCE PRN, 1 dose, Starting on Sun02/25/24 at 0824, Until Sun02/25/24 at 0831, Per Protocol, Radiology Contrast, Routine Given 02/25/2024 8:31 AM EDT 700 mg barium sulfate (E-Z-HD) 98% oral liquid 0-120 mL 0-120 mL, Oral, ONCE PRN, 1 dose, Starting on Sun02/25/24 at 0824, Until Sun02/25/24 at 0842, Per Protocol, Radiology Contrast, Routine Given 02/25/2024 8:42 AM EDT 90 mLs barium sulfate (Ezpaque) 60% (w/v) oral liquid 0-710 mL 0-710 mL, Oral, ONCE PRN, 1 dose, Starting on Sun02/25/24 at 0824, Until Sun02/25/24 at 0823, Per Protocol, Radiology Contrast, Routine Given 02/25/2024 8:23 AM EDT 180 mLs documented in this encounter Care Teams Acid Supervisor Relationship Specialty Start Date End Date Sonido Cordoba PA [address] [place] [address] PCP - General Family Medicine 07/06/20 documented as of this encounter
--- OUTSIDE RECORDS SUMMARY | 2024-10-16 17:36 | XMS_ITS | Encounter Summary ---
Author Organization [facility] [address] Care Team Providers Care Crate Liner Name Role Phone Sonido Cordoba Primary Care Provider +1- [phone] Reason for Visit * Reason Comments Medication Refill Encounter Details Date Type Department Care Team (Late st Contact Info) Description 04/16/2024 Refill [place] [address] Mercy Amanda MD [facility] [address] [place] [address] Class 3 severe obesity with serious comorbidity and body mass index (BMI) of 40.0 to 44.9 in adult, unspecified obesity type; Insulin resistance Social History Tobacco Use Types Packs/Day Years [...] AM EST Office [place] [phone] Mercy Amanda MD [facility] [address] [place] [address] 04/01/2025 2:00 PM EDT Office Visit [place] [phone] Erum Szymanski MD [facility] [place] [address] documented as of this encounter Goals Goal [...] a priority: - Eggs - Cheese - Italian yogurt / cottage cheese - meat - fish - nuts/seeds - protein shake or bar Start with the protein, can choose to add other foods (would rather have you choose regular bread/ tanzanian muffin, etc. - whole wheat if possible- [...] as of this encounter Visit Diagnoses Diagnosis Class 3 severe obesity with serious comorbidity and body mass index (BMI) of 40.0 to 44.9 in adult, unspecified obesity type Insulin resistance Dysmetabolic Syndrome X documented in this encounter Care Teams Crate Liner Relationship Specialty Start Date End Date Sonido Cordoba PA [address] [place] [address] PCP - General Family Medicine 07/06/20 documented as of this encounter
--- OUTSIDE RECORDS SUMMARY | 2024-10-16 17:36 | XMS_ITS | Encounter Summary ---
[place] [address] Care Team Providers Care Head Athletic Trainer/Strength Coach Name Role Phone Sonido Cordoba Primary Care Provider [phone]- [phone] Encounter Details Date Type Department Care Team (Latest Contact Info) Description 02/04/2024 Travel Social History Tobacco Use Types Packs/Day [...] AM EST Office [place] [phone] Mercy Amanda MD [facility] [address] [facility] [address] 04/01/2025 2:00 PM EDT Office Visit Gastroenterology at [facility] [place] [phone] Erum Szymanski MD [facility] [place] [address] documented as of this encounter Goals Goal [...] a priority: - Eggs - Cheese - Romansh yogurt / cottage cheese - meat - fish - nuts/seeds - protein shake or bar Start with the protein, can choose to add other foods (would rather have you choose regular bread/ serbian muffin, etc. - whole wheat if possible- [...] on filedocumented in this encounter Care Teams Head Athletic Trainer/Strength Coach Relationship Specialty Start Date End Date Sonido Cordoba PA [address] [place] [address] PCP - General Family Medicine 07/06/20 documented as of this encounter
--- OUTSIDE RECORDS SUMMARY | 2024-10-16 17:36 | XMS_ITS | Encounter Summary ---
Author Organization [facility] [place] [address] Care Team Providers Care Track Layer Head Name Role Phone Sonido Cordoba Primary Care Provider +1- [phone] Encounter Details Date Type Department Care Team (Latest Contact Info) Description 06/20/2024 Travel Social History Tobacco Use Types Packs/Day [...] AM EST Office Visit Weight Center at [facility] [place] [address] Mercy Amanda MD [facility] [address] [facility] [address] 04/01/2025 2:00 PM EDT Office Visit Gastroenterology at [facility] [place] [phone] Erum Szymanski MD [facility] [place] [address] documented as of this encounter Goals Goal [...] (would rather have you choose regular bread/ jamaican muffin, etc. - whole wheat if possible- [...] on filedocumented in this encounter Care Teams Track Layer Head Relationship Specialty Start Date End Date Sonido Cordoba PA [address] [place] [address] PCP - General Family Medicine 07/06/20 documented as of this encounter
--- OUTSIDE RECORDS SUMMARY | 2024-10-16 17:36 | XMS_ITS | Encounter Summary ---
Author Organization [facility] [place] [address] Care Team Providers Care Rental Clerk Tool And Equipment Name Role Phone Sonido Cordoba Primary Care Provider +1- [phone] Reason for Visit * Reason Comments Establish Care LEFT THUMB TRIGGER F MARIA R * Consultation (Routine) - Authorized Specialty Diagnoses / Procedures Referred By Aric madrigal Referred To Contact Orthopaedics Diagnoses Trigger thumb, left thumb Sonido Cordoba PA [address] [place] [address] [facility] [address] [place] [id number] Referral ID Status Reason Start Date Expiration Date Visits Requested Visits Authorized [id number] Authorized Consult, Test & Treat PCP Updated and/or Approved 06/09/2024 12/10/2024 6 6 Encounter Details Date Type Department Care Team (Late st Contact Info) Description 07/18/2024 4:00 PM EDT Office [place] [address] Bruna Badillo PA [facility] [place] [address] Trigger finger of left thumb Social History Tobacco Use Types [...] Sign Reading Time Taken Comments Blood Pressure - - Pulse - - Temperature - - Respiratory Rate - - Oxygen Saturation - - Inhaled Oxygen Concentration - - Weight 97.5 kg (215 lb) 07/18/2024 3:59 PM EDT Height 162.6 cm (5' 4) 07/18/2024 3:59 PM EDT Body Mass Index 36.9 07/18/2024 3:59 PM EDT documented in this encounter Progress Notes * Bruna Badillo PA - 07/18/2024 4:00 PM EDT Images from the original note were not included. PATIENT NAME: Vianney Cordero AGE: 48 y.o. MR#: [id number] DATE OF VISIT: 07/18/2024 DATE OF INJURY/ONSET: 12/2023 CHIEF COMPLAINT: LEFT thumb triggering HISTORY OF PRESENT ILLNESS: Ms. Mao Cordero is a RIGHT hand dominant 48 y.o. female who comes into clinic today for evaluation of the LUE. The patient has a history significant for PTSD, anxiety, depression. The patient comes in for left thumb triggering that began in December. It has become more consistent since then. Her symptoms are worst at night and she will wake up due to her symptoms. She will wake up and require her contralateral hand to release it. She denies numbness or tingling or other trigger fingers. She reports associated pain at the base of the palmar thumb. She has not yet done anything for treatment. Medications and Allergies were reviewed in eD-H PAST MEDICAL HX: Past Medical History: Diagnosis Date PTSD (post-traumatic stress disorder) PAST SURGICAL HX: Past Surgical History: Procedure Laterality Date CHOLECYSTECTOMY DILATION AND CURETTAGE OF UTERUS 11/05/1994 PRO COLONOSCOPY, BIOPSY N/A 08/21/2018 COLONOSCOPY FLEXIBLE, WITH BX (WRVU 3.66) performed by Erum Szymanski MD at [facility] ENDOSCOPY PRO COLONOSCOPY, BIOPSY N/A 09/04/2019 COLONOSCOPY FLEXIBLE, WITH BX (WRVU 3.66) performed by Steve Ji MD at [facility] ENDOSCOPY PRO COLONOSCOPY, DIAGNOSTIC N/A 09/04/2019 COLONOSCOPY, DIAGNOSTIC performed by Steve Ji MD at [facility] ENDOSCOPY PRO COLONOSCOPY, DIAGNOSTIC N/A 06/01/2023 COLONOSCOPY,SCREENING (WRVU 3.26) performed by Steve Ji MD at [facility] ENDOSCOPY PRO COLONOSCOPY, REMV LESN, SNARE N/A 08/21/2018 COLONOSCOPY, POLYPECTOMY, REMOVAL LESION BY SNARE (WRVU 4.67) performed by Erum Szymanski MD at [facility] ENDOSCOPY PRO CYSTO W URETEROSCOPY &/OR PYELOSCOPY, DX Right 06/01/2015 CYSTOURETEROSCOPY, DIAGNOSTIC performed by Darius Nuñez Jr., MD at [facility] OR PRO CYSTOSCOPY, INSERT URETERAL STENT Right 06/01/2015 CYSTO, STENT PLACEMENT performed by Darius Nuñez Jr., MD at [facility] MAIN OR PRO LAP GASTRIC BYPASS/ELVIE-EN-Y N/A 05/29/2024 @LAPAROSCOPIC GASTROPLASTY W/ ELVIE-EN-Y CONSTRUCTION (WRVU 29.4) performed by Chrystal Damon MD at [facility] MAIN OR PRO LAPAROSCOPY SURG ESOPHAGOGASTRIC FUNDOPLASTY N/A 04/05/2015 LAPAROSCOPIC TYESHA FUNDOPLASTY performed by Valentín Moura MD at [facility] MAIN OR PRO PERCUT DILATN RENAL TRACT Right 06/01/2015 PERCUTANEOUS INTRO GUIDE WIRE TO ACCESS RENAL PELVIS,AND OR URETER, W\DILATION performed by Darius Nuñez Jr., MD at [facility] MAIN OR PRO PERQ NL/PL LITHOTRIPSY SIMPLE UP TO 2 CM 1 LOCATION Right 06/01/2015 NEPHROLITHOTOMY, ([facility]) PERCUTANEOUS performed by Darius Nuñez Jr., MD at [facility] MAIN OR PRO REPAIR PERONEAL TENDONS Right 08/12/2020 PERONEAL TENDON REPAIR (WRVU 7.35) performed by Mani Jefferson MD at [facility] OSC PRO UNLISTED LAPAROSCOPIC PROCEDURE ESOPHAGUS N/A 05/29/2024 LAPAROSCOPIC TAKEDOWN PREVIOUS TYESHA (WRVU 48.75) performed by Chrystal Damon MD at [facility] DONALD PRO UPPER GI ENDOSCOPY, BIOPSY N/A 01/27/2015 EGD WITH BIOPSY performed by Brandt Barlow MD at [facility] ENDOSCOPY PRO UPPER GI ENDOSCOPY, BIOPSY N/A 02/28/2016 EGD WITH BIOPSY performed by Brandt Barlow MD at [facility] ENDOSCOPY PRO UPPER GI ENDOSCOPY, BIOPSY N/A 09/04/2016 EGD WITH BIOPSY performed by Brandt Barlow MD at [facility] ENDOSCOPY PRO UPPER GI ENDOSCOPY, BIOPSY N/A 09/24/2017 EGD WITH BIOPSY (WRVU 2.49) performed by Brandt Barlow MD at [facility] ENDOSCOPY PRO UPPER GI ENDOSCOPY, BIOPSY N/A 08/21/2018 EGD WITH BIOPSY (WRVU 2.49) performed by Erum Szymanski MD at [facility] ENDOSCOPY PRO UPPER GI ENDOSCOPY, BIOPSY N/A 09/04/2019 UPPER GASTROINTESTINAL ENDOSCOPY,WITH BIOPSY SINGLE OR MULTIPLE (WRVU 2.49) performed by Steve Ji MD at [facility] ENDOSCOPY PRO UPPER GI ENDOSCOPY, BIOPSY N/A 05/24/2021 EGD WITH BIOPSY (WRVU 2.49) performed by Kathy Carnes MD at [facility] ENDOSCOPY PRO UPPER GI ENDOSCOPY, BIOPSY N/A 06/01/2023 EGD WITH BIOPSY (WRVU 2.39) performed by Steve Ji MD at [facility] ENDOSCOPY PRO UPPER GI ENDOSCOPY, DIAGNOSTIC N/A 09/04/2019 EGD, UPPER GI ENDOSCOPY performed by Steve Ji MD at [facility] ENDOSCOPY PRO UPPER GI ENDOSCOPY, DIAGNOSTIC N/A 05/29/2024 EGD, UPPER GI ENDOSCOPY (WRVU 2.09) performed by Chrystal Damon MD at [facility] MAIN OR TONSILLECTOMY FAMILY HX: Family History Problem Relation Age of Onset Diabetes Mother Diabetes Maternal Grandmother Diabetes Maternal Grandfather SOCIAL HX: Social History Occupational History Not on file Tobacco Use Smoking status: Former Current packs/day: 0.00 Average packs/day: 0.5 packs/day for 6.0 years (3.0 ttl pk-yrs) Types: Cigarettes Start date: 01/25/1991 Quit date: 01/25/1997 Years since quittin.4 Smokeless tobacco: Never Vaping Use Vaping status: Never Used Substance and Sexual Activity Alcohol use: Not Currently Comment: 1X/quarter Drug use: No Sexual activity: Yes Partners: Male control/protection: Surgical Activities: [facility] ROS: Constitutional: Denies fevers, chills Respiratory: Denies shortness of breath, cough Cardiac: Denies chest pain, palpitations GI: denies abdominal pain, nausea, vomiting Skin: Denies new rashes or lesions Neuro: no numbness, tingling Musculoskeletal: as above in HPI 07/05/2024 General Health, Prior Treatments, PreExisting Condition, Health Habits, About You PROMIS-10 General Health Very Good PROMIS-10 Quality of Life Very Good PROMIS-10 Physical Health Very Good PROMIS-10 Mental Health Very Good PROMIS-10 Social Activity Very Good PROMIS-10 Everyday Activities Completely PROMIS-10 Pain 2 PROMIS-10 Fatigue None PROMIS-10 Social Roles Very Good PROMIS-10 Anxious or Depressed Never PROMIS PHYSICAL SCORE (range 16-68) 57.7 PROMIS MENTAL SCORE (range 21-68) 56 Treatments Tried Acetaminophen (e.g. Tylenol) Alzheimers or dementia No Cirrohosis or liver disease No HIV/AIDS No Pain in more than one joint in legs No Back or neck pain No Heart attack No Heart failure No Unclog/bypass leg arteries No Stroke, blood clot, TIA No Asthma Yes Take medication for asthma Yes Emphysema, chronic bronchities, or COPD No Stomach ulcers/peptic ulcer disease No Diabetes No Poor kidney function No Rheumatic condtions No Cancer No Weight (lbs) 220 Height (feet) 5 feet Height (Inches) 4 BMI 37.76 (Obese) Ever used tobacco products Yes Tobacco frequency Never WHO - Tobacco Advice 0 (You are at low risk of health and other problems from your current pattern of use.) Ever used alcoholic beverages Yes Alcohol frequency Never WHO - Alcohol Advice 0 (You are at low risk of health and other problems from your current pattern of use.) Live Alone No Marital situation / Schooling High school graduate or GED Combined Household Income $20,000 to less than $25,000 # People Supported 2 [place], , No, not [place]uan// Race White Health Literacy Extremely Currently working Yes Current job situation Full-time 01/04/2018 [employer] [facility] Response ASES VAS-LEFT 7 ASES ADL-LEFT ARM 13 ASES LEFT ARM 36.66 No data to display PHYSICAL EXAM: Ms. Mao Cordero is a 48 y.o. female General appearance: in no acute distress, alert, cooperative Psych: cooperative with exam, appropriate Head: normocephalic, atraumatic EENT: EOMI grossly intact Neck: supple, trachea midline Cardiac: regular rate and rhythm by peripheral pulse Lungs: non-labored respirations Musculoskeletal: LUE: Inspection: Skin CDI. No erythema, ecchymosis, edema, breakdown, deformity. Palpation: TTP over the A1 edna of the left thumb. There is palpable catching with ROM. ROM/Strength: Full ROM of all digits. Full ROM of the wrist. Neurovascular: SGILT R/M/U/Ax nerve distributions; AIN/PIN/U nerves fire; 2+ radial pulse DIAGNOSTIC STUDIES: None new. ASSESSMENT: LEFT trigger thumb PLAN: - The patient was counseled on the nature of her ongoing symptoms. We have reviewed relevant anatomy and pathology. We have discussed risks and benefits of relevant operative and nonoperative treatment options for the above stated diagnosis. We have discussed splinting, corticosteroid injection, and surgical release of the A1 edna. She would like to begin with splinting. I recommended that she splint at night, though she may also splint during the day as needed. She is aware that splinting isnot necessarily a reliable way of treating this problem and that she may require an injection or surgery in the future to release the A1 edna. She will begin with this and follow-up in about 6 to 8 weeks if she is having persistent symptoms. All of her questions were sought and answered today. - She will return for follow up 6 to 8 weeks if needed. - The patient understands to contact us if they have any other questions or concerns. Bruna Badillo PA-C Department of Orthopaedics [facility] documented in this encounter Plan of Treatment Upcoming Encounters Date Type Department Care Team (Late st Contact Info) Description 12/31/2024 10:00 AM EST Office [place] [address] Mercy Amanda MD [facility] DR ASL [facility] [address] 04/01/2025 2:00 PM EDT Office [place] [phone] Erum Szymanski MD [facility] [place] [address] documented as of this encounter Goals Goal [...] a priority: - Eggs - Cheese - Thai yogurt / cottage cheese - meat - fish - nuts/seeds - protein shake or bar Start with the protein, can choose to add other foods (would rather have you choose regular bread/ north korean muffin, etc. - whole wheat if possible- [...] of this encounter Visit Diagnoses Diagnosis Trigger finger of left thumb documented in this encounter Care Teams Rental Clerk Tool And Equipment Relationship Specialty Start Date End Date Sonido Cordoba PA [address] [place] [address] PCP - General Family Medicine 07/06/20 documented as of this encounter
--- OUTSIDE RECORDS SUMMARY | 2024-10-16 17:36 | XMS_ITS | Encounter Summary ---
[place] [address] Care Team Providers Care Grain I Farmworker Name Role Phone Sonido Cordoba Primary Care Provider +1- [phone] Encounter Details Date Type Department Care Team (Latest Contact Info) Description 05/07/2024 Travel Social History Tobacco Use Types Packs/Day [...] AM EST Office [place] [phone] Mercy Amanda MD [facility] DR SAL [facility] [address] 04/01/2025 2:00 PM EDT Office Visit Gastroenterology at [facility] [address] Erum Szymanski MD [facility] [place] [address] documented as of this encounter Goals Goal [...] a priority: - Eggs - Cheese - Sinhala yogurt / cottage cheese - meat - fish - nuts/seeds - protein shake or bar Start with the protein, can choose to add other foods (would rather have you choose regular bread/ slovak muffin, etc. - whole wheat if possible- [...] on filedocumented in this encounter Care Teams Grain I Farmworker Relationship Specialty Start Date End Date Sonido Cordoba PA [address] [place] [address] PCP - General Family Medicine 07/06/20 documented as of this encounter
--- OUTSIDE RECORDS SUMMARY | 2024-10-16 17:36 | XMS_ITS | Encounter Summary ---
[place] [address] Care Team Providers Care Supervisor Dry Cell Assembly Name Role Phone Sonido Cordoba Primary Care Provider +1- [phone] Encounter Details Date Type Department Care Team (Latest Contact Info) Description 04/02/2024 Travel Social History Tobacco Use Types Packs/Day [...] AM EST Office [place] [phone] Mercy Amanda MD [facility] [address] SAL [place] [address] 04/01/2025 2:00 PM EDT Office Visit Gastroenterology at [facility] [place] [address] Erum Szymanski MD [facility] [place] [address] documented as of this encounter Goals Goal [...] a priority: - Eggs - Cheese - Kinyarwanda yogurt / cottage cheese - meat - fish - nuts/seeds - protein shake or bar Start with the protein, can choose to add other foods (would rather have you choose regular bread/ portuguese muffin, etc. - whole wheat if possible- [...] on filedocumented in this encounter Care Teams Supervisor Dry Cell Assembly Relationship Specialty Start Date End Date Sonido Cordoba PA [address] [place] [address] PCP - General Family Medicine 07/06/20 documented as of this encounter
--- OUTSIDE RECORDS SUMMARY | 2024-10-16 17:36 | XMS_ITS | Encounter Summary ---
[place] [address] Care Team Providers Care Vertical Borer Name Role Phone Sonido Cordoba Primary Care Provider +1- [phone] Encounter Details Date Type Department Care Team (Latest Contact Info) Description 09/10/2024 7:15 AM EST Laboratory Appointment Lab [address] [place] [address] S/P gastric bypass; Intestinal malabsorption, [...] AM EST Office [place] [address] Mercy Amanda MD [facility] DR SAL [place] [address] 04/01/2025 2:00 PM EDT Office [place] [phone] Erum Szymanski MD [facility] [place] [address] documented as of this encounter Goals Goal [...] a priority: - Eggs - Cheese - Emirati yogurt / cottage cheese - meat - fish - nuts/seeds - protein shake or bar Start with the protein, can choose to add other foods (would rather have you choose regular bread/ maltese muffin, etc. - whole wheat if possible- [...] Procedure Name Priority Date/Time Associated Diagnosis Comments PTH Routine 09/10/2024 7:23 AM EST S/P [...] malabsorption, unspecified type Disorder of iron metabolism COMPREHENSIVE METABOLIC PANEL Routine 09/10/2024 7:23 AM EST S/P gastric bypass Intestinal malabsorption, unspecified type Disorder of iron metabolism documented in this encounter Results * (ABNORMAL) Comprehensive metabolic panel (09/10/2024 7:23 AM EST) [facility] Glucose 93 65 - 99 mg/dL 09/10/2024 8:06 AM EST [facility] Comment: Fasting Glucose Interpretive Criteria: Normal: 65-99 mg/dL ?? Prediabetes: 100-125 mg/dL ?? Consistent with Diabetes Mellitus: > or = 126 mg/dL ?? Classification and Diagnosis of Diabetes: Standards of Care in Diabetes - 2022. Diabetes Care 2022; 46:S19. Fasting is defined as no caloric intake for at least 8 hours. Blood Urea Nitrogen 13 8 - 18 mg/dL 09/10/2024 8:06 AM [facility] Creatinine 0.70 0.70 - 1.20 mg/dL 09/10/2024 8:06 AM [facility] Sodium 141 135 - 145 mMol/L 09/10/2024 8:06 AM [facility] Potassium 3.9 3.5 - 5.0 mMol/L 09/10/2024 8:06 AM [facility] Chloride 108(H) 98 - 107 mMol/L 09/10/2024 8:06 AM [facility] Carbon Dioxide 22 22 - 31 mMol/L 09/10/2024 8:06 AM [facility] Anion Gap 11 5 - 15 mMol/L 09/10/2024 8:06 AM [facility] Calcium 9.5 8.5 - 10.5 mg/dL 09/10/2024 8:06 AM [facility] Protein, Total 7.2 6.1 - 8.0 g/dL 09/10/2024 8:06 AM [facility] Albumin 4.1 3.2 - 5.2 g/dL 09/10/2024 8:06 AM [facility] Aspartate Aminotransferase 20 <=30 unit/L 09/10/2024 8:06 AM [facility] Alanine Aminotransferase 14 0 - 30 unit/L 09/10/2024 8:06 AM [facility] Alkaline Phosphatase 124(H) 35 - 105 unit/L 09/10/2024 8:06 AM [facility] Bilirubin, Total 0.3 <=1.3 mg/dL 09/10/2024 8:06 AM [facility] Est Glomerular Filtration Rate - Female 108 mL/min/1. 73 m?? 09/10/2024 8:06 AM [facility] Comment: This patient's estimated GFR was [...] Foundation Fasting Status Yes 09/10/2024 8:06 AM [facility] Blood VENOUS BLOOD SPECIMEN / Unknown Venipuncture / Unknown 09/10/2024 7:23 AM EST 09/10/2024 7:24 AM EST Dena Alexander APRN CHEMISTRY ORDERA BLES Performing Organization Address City/[facility]/ZIP Co de Phone Number [facility] [place] [address] * Ferritin (09/10/2024 7:23 AM EST) Ferritin 157 6 - 175 ng/ml 09/10/2024 8:19 AM [facility] Blood VENOUS BLOOD SPECIMEN / Unknown Venipuncture / Unknown 09/10/2024 7:23 AM EST 09/10/2024 7:24 AM EST Dena Alexander APRN CHEMISTRY ORDERA BLES [facility] [place] [address] * Folate, serum (09/10/2024 7:23 AM EST) Folate 7.6 4.8 - 24.2 ng/ml 09/10/2024 8:19 AM [facility] Blood VENOUS BLOOD SPECIMEN / Unknown Venipuncture / Unknown 09/10/2024 7:23 AM EST 09/10/2024 7:24 AM EST Dena M Benjamin WINDOW/DISTRIBUTION CLERK CHEMISTRY ORDERA BLES [facility] [place] [address] * Hemogram (09/10/2024 7:23 AM EST) White Blood Cell 7.38 4.00 - 9.50 x10(3)/mcL 09/10/2024 7:44 AM [facility] Red Blood Cell 4.44 4.00 - 5.21 x10(6)/mcL 09/10/2024 7:44 AM [facility] Hemoglobin 13.1 11.7 - 15.5 g/dL 09/10/2024 7:44 AM [facility] Hematocrit 39.2 35.7 - 45.8 % 09/10/2024 7:44 AM [facility] Mean Cell Volume 88.3 82.6 - 94.4 fL 09/10/2024 7:44 AM [facility] Mean Cell Hemoglobin 29.5 27.1 - 32.0 pg 09/10/2024 7:44 AM [facility] Mean Cell Hemoglobin Concentration 33.4 31.7 - 35.0 g/dL 09/10/2024 7:44 AM [facility] Platelet 261 145 - 357 x10(3)/mcL 09/10/2024 7:44 AM [facility] Mean Platelet Volume 10.8 7.6 - 12.9 fL 09/10/2024 7:44 AM [facility] RDW Standard Deviation 39.2 37.0 - 46.0 fL 09/10/2024 7:44 AM [facility] RDW coefficient of variation 12.1 11.5 - 14.1 % 09/10/2024 7:44 AM [facility] NRBC% auto 0.0 % 09/10/2024 7:44 AM [facility] NRBC Absolute <0.01 <0.01 x10(3)/mcL 09/10/2024 7:44 AM EST [facility] Blood VENOUS BLOOD SPECIMEN / Unknown Venipuncture / Unknown 09/10/2024 7:23 AM EST 09/10/2024 7:24 AM EST Dena Alexander APRN HEMATOLOGY ORDER SUGAR Performing Organization Address City/[facility]/ZIP Co de Phone Number [facility] [place] [address] * Iron and TIBC (09/10/2024 7:23 AM EST) Iron 92 30 - 150 mcg/dL 09/10/2024 8:06 AM [facility] TIBC 316 250 - 450 mcg/dL 09/10/2024 8:06 AM EST [facility] Iron Saturation 29 20 - 50 % 8:06 AM [facility] Blood VENOUS BLOOD SPECIMEN / Unknown Venipuncture / Unknown 09/10/2024 7:23 AM EST 09/10/2024 7:24 AM EST Dena Alexander APRN CHEMISTRY ORDERA BLES Performing Organization Address City/[facility]/ZIP Co de Phone Number [facility] [place] [address] * PTH (09/10/2024 7:23 AM EST) Parathyroid Hormone 64 15 - 65 pg/mL 09/10/2024 8:00 AM EST [facility] Blood VENOUS BLOOD SPECIMEN / Unknown Venipuncture / Unknown 09/10/2024 7:23 AM EST 09/10/2024 7:24 AM EST Dena Alexander APRN CHEMISTRY ORDERA BLES Performing Organization Address City/[facility]/ZIP Co de Phone Number [facility] [place] [address] * Vitamin B1, whole blood (09/10/2024 7:23 AM EST) Pathologist [facility] Vit B1 Lvl Wb March 135 70 - 180 nmol/L 09/13/2024 3:13 PM EST REF LAB [place] Comment: ADDITIONAL INFORMATION This test was developed and its performance characteristics determined by [facility] in a manner consistent with CLIA requirements. This test has not been cleared or approved by the U.S. Food and Drug Administration. Blood VENOUS BLOOD SPECIMEN / Unknown Venipuncture / Unknown 09/10/2024 7:23 AM EST 09/10/2024 7:24 AM EST Narrative REF LAB [place] - 09/13/2024 3:13 PM EST Test Performed by: [place] [address] Hat Lacer: Toshia Enriquez Ph.D.; CLIA# [id number] Dena Alexander APRN LAB SEND OUT ORD ERABLES Performing Organization Address City/[facility]/ZIP Co de Phone Number REF LAB [address] * Vitamin D, 25-Hydroxy (09/10/2024 7:23 AM EST) [facility] Vitamin D Total 25 OH 29 21 - 100 ng/ml 09/10/2024 8:19 AM EST [facility] Vitamin D Total 25 OH Interp Insufficient 09/10/2024 8:19 AM EST [facility] Blood VENOUS BLOOD SPECIMEN / Unknown Venipuncture / Unknown 09/10/2024 7:23 AM EST 09/10/2024 7:24 AM EST Dena Alexander APRN CHEMISTRY ORDERA BLES [facility] [place] [address] * Vitamin B12 (09/10/2024 7:23 AM EST) Vitamin B12 571 232 - 1,245 pg/mL 09/10/2024 10:56 AM EST [facility] Blood VENOUS BLOOD SPECIMEN / Unknown Venipuncture / Unknown 09/10/2024 7:23 AM EST 09/10/2024 7:24 AM EST Dena Alexander WINDOW/DISTRIBUTION CLERK CHEMISTRY ORDERA BLES [facility] [place] [address] documented in this encounter Visit Diagnoses Diagnosis S/P gastric bypass Bariatric surgery status Intestinal malabsorption, unspecified type Disorder of iron metabolism Other disorders of iron metabolism documented in this encounter Care Teams Vertical Borer Relationship Specialty Start Date End Date Sonido Cordoba PA [address] [place] [address] PCP - General Family Medicine 07/06/20 documented as of this encounter
--- OUTSIDE RECORDS SUMMARY | 2024-10-16 17:36 | XMS_ITS | Encounter Summary ---
Author Organization [facility] Address [facility] [place] [address] Care Team Providers Care Job Development Specialist Name Role Phone Sonido Cordoba Primary Care Provider +1- [phone] Encounter Details Date Type Department Care Team (Late st Contact Info) Description 03/06/2024 1:00 PM EDT Office [place] [address] Chrystal Damon MD [facility] [place] [address] Kailyn Urbano APRN [facility] [place] [address] [facility] [place] [address] Pre-op evaluation; Obesity, unspecified classification, unspecified obesity type, unspecified whether serious comorbidity present Social History Tobacco Use Types Packs/Day Years [...] Sign Reading Time Taken Comments Blood Pressure 145/72 03/06/2024 12:54 PM EDT Pulse 87 03/06/2024 12:54 PM EDT Temperature 36.7 ??C (98 ??F) 03/06/2024 12: 54 PM EDT Respiratory Rate 18 03/06/2024 12:5 4 PM EDT Oxygen Saturation 96% 03/06/2024 12: 54 PM EDT Inhaled Oxygen Concentration - - Weight 109.9 kg (242 lb 4.8 oz) 024 12:54 PM EDT Height - - Body Mass Index 42.83 02/04/2024 4:26 PM EDT documented in this encounter Progress Notes * Kailyn Urbano, TEAGAN - 03/06/2024 1:00 PM EDT [facility] Bariatric Surgery Evaluation Follow Up Patient's initial visit was on 12/20/23. Updates in blue. Reason for consultation: Vianney is a 48 y.o. female referred by WANDY Aguilera for consultation for consideration of surgical treatment of obesity. Her preferred procedure: Barbi-en-Y gastric bypass due to failed tyesha and GERD/Mix's. Prior bariatric surgery evaluations: None. BARIATRIC SURGERY PROGRAM PATHWAY Review of progress with the requirements of the Bariatric Surgery Program: Education: She [x] has [] Has not attended a Introduction to the [facility] Bariatric Surgery Program seminar, a comprehensive two hour meeting that provides a program overview, education on bariatric surgeries offered at [facility], risks and benefits, as well as patient expectations and follow up. [facility] Bariatric Surgery Program Educational seminars viewed Bariatric Surgery Program evaluations with RD: Completed today Program start weight: 256 WT at visit #1: Wt & BMI By Encounter Date Flowsheet Row Office Visit from 03/06/2024 in General Surgery at [facility] Office Visit from 02/04/2024 in Weight and Wellness at [facility] Weight 109.9 kg (242 lb 4.8 oz) [...] make it up to the top of [facility]. Patient has a hx tyesha fundoplication, GERD and mix's. She is currently on daily PPI, reports her GERD sx are well controlled. Follow up was planned today due to: Per psychological evaluation recommendations- Reconnect with psychologist. Since her last visit, Vianney discussed with Juliette uL PsyD and had 2 visits with Psychiatry [...] Therapeutic anticoagulation [x] Previous obesity surgery/foregut surgery (Tyesha 2014) Past Surgical History: Procedure Laterality Date CHOLECYSTECTOMY DILATION AND CURETTAGE OF UTERUS 11/05/1994 PRO COLONOSCOPY, BIOPSY N/A 08/21/2018 COLONOSCOPY FLEXIBLE, WITH BX (WRVU 3.66) performed by Erum Szymanski MD at [facility] ENDOSCOPY PRO COLONOSCOPY, BIOPSY N/A 09/04/2019 COLONOSCOPY FLEXIBLE, WITH BX (WRVU 3.66) performed by Steve Ji MD at [facility] ENDOSCOPY PRO COLONOSCOPY, DIAGNOSTIC N/A 09/04/2019 COLONOSCOPY, DIAGNOSTIC performed by Steve Ji MD at [facility]COPY PRO COLONOSCOPY, DIAGNOSTIC N/A 06/01/2023 COLONOSCOPY,SCREENING (WRVU 3.26) performed by Steve Ji MD at [facility] END[facility]COPY PRO COLONOSCOPY, REMV LESN, SNARE N/A 08/21/2018 COLONOSCOPY, POLYPECTOMY, REMOVAL LESION BY SNARE (WRVU 4.67) performed by Erum Szymanski MD at [facility] ENDOSCOPY PRO CYSTO W URETEROSCOPY &/OR PYELOSCOPY, DX Right 06/01/2015 CYSTOURETEROSCOPY, DIAGNOSTIC performed by Darius Nuñez Jr., MD at [facility] MAIN OR PRO CYSTOSCOPY, INSERT URETERAL STENT Right 06/01/2015 CYSTO, STENT PLACEMENT performed by Darius Nuñez Jr., MD at [facility] MAIN OR PRO LAPAROSCOPY SURG ESOPHAGOGASTRIC FUNDOPLASTY N/A 04/05/2015 LAPAROSCOPIC TYESHA FUNDOPLASTY performed by Valentín Moura MD at [facility] MAIN OR PRO PERCUT DILATN RENAL TRACT Right 06/01/2015 PERCUTANEOUS INTRO GUIDE WIRE TO ACCESS RENAL PELVIS,AND OR URETER, W\DILATION performed by Darius Nuñez Jr., MD at [facility] MAIN OR PRO PERQ NL/PL LITHOTRIPSY SIMPLE UP TO 2 CM 1 LOCATION Right 06/01/2015 NEPHROLITHOTOMY, ([facility]) PERCUTANEOUS performed by Darius Nuñez Jr., MD at [facility] MAIN OR PRO REPAIR PERONEAL TENDONS Right 08/12/2020 PERONEAL TENDON REPAIR (WRVU 7.35) performed by Mani Jefferson MD at [facility] OSC PRO UPPER GI ENDOSCOPY, BIOPSY N/A 01/27/2015 EGD WITH BIOPSY performed by Brandt Barlow MD at [facility] END[facility]COPY PRO UPPER GI ENDOSCOPY, BIOPSY N/A 02/28/2016 EGD WITH BIOPSY performed by Brandt Barlow MD at [facility]COPY PRO UPPER GI ENDOSCOPY, BIOPSY N/A 09/04/2016 EGD WITH BIOPSY performed by Brandt Barlow MD at [facility] ENDOSCOPY PRO UPPER GI ENDOSCOPY, BIOPSY N/A 09/24/2017 EGD WITH BIOPSY (WRVU 2.49) performed by Brandt Barlow MD at [facility]COPY PRO UPPER GI ENDOSCOPY, BIOPSY N/A 08/21/2018 EGD WITH BIOPSY (WRVU 2.49) performed by Erum Szymanski MD at [facility] END[facility]COPY PRO UPPER GI ENDOSCOPY, BIOPSY N/A 09/04/2019 UPPER GASTROINTESTINAL ENDOSCOPY,WITH BIOPSY SINGLE OR MULTIPLE (WRVU 2.49) performed by Steve Ji MD at [facility]COPY PRO UPPER GI ENDOSCOPY, BIOPSY N/A 05/24/2021 EGD WITH BIOPSY (WRVU 2.49) performed by Kathy Carnes MD at [facility] ENDOSCOPY PRO UPPER GI ENDOSCOPY, BIOPSY N/A 06/01/2023 EGD WITH BIOPSY (WRVU 2.39) performed by Steve Ji MD at [facility] ENDOSCOPY PRO UPPER GI ENDOSCOPY, DIAGNOSTIC N/A 09/04/2019 EGD, UPPER GI ENDOSCOPY performed by Steve Ji MD at [facility] ENDOSCOPY TONSILLECTOMY Current Outpatient Medications: Phentermine (Lomaira) 8 mg [...] as needed., Disp: , Rfl: 0 Allergies Allergen Reactions Ketchup Rash Lactose Oxycodone Nausea And Vomiting Shellfish Containing Products Ibuprofen Interacts with protonix PCP said she shouldn't take it Family History Problem Relation Age of Onset [...] granddaughter (2 yo)lives with her. 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 Lab data: Labs complete and up to date. 2. Psychological evaluation done by Juliette Lu PsyD, Weight and Wellness at [facility] : per Dr. Allen SERRANO WITH RECOMMENDATIONS - Based on the information gathered during this assessment and consultation with pt's psychotherapist, Dr. Metz, there are no psychological contraindications withRennygreg Cavanaugh Cordero proceeding with surgery. Vianney would benefit from the following to assist with preparing for bariatric surgery: Continue engaging in health promoting behaviors Engage in MH txno contraindication to bariatric surgery from a psychological perspective. Plan for patient to follow up with [facility] Psychology 2 months post op. She denies binge eating, night eating disorder, self-induced vomiting, laxative or diuretic use or excessive exercise to lose weight. 12/20/2023 8:17 AM [facility] Initial Responses PROMIS 10 Physical Scores 61.9 [...] bariatric surgery. She is interested in a Barbi-en-Y gastric bypass (Tyesha to Bypass). We discussed the procedures of laparoscopic barbi en y gastric bypass. We discussed the benefits of surgery . We discussed the possibility of poor weight loss and the need to make sustained dietary changes in order for the surgery to be successful. Patient understands the [facility] risks of vitamin deficiencies, internal hernias and ulcers. Patient realizes the need for life long follow up with the bariatric surgery program and understands the importance of the preoperative diet in terms of safety and ability to perform the procedure. Consent was reviewed or signed today. Mental health - Patient was seen in 5D x2 and has discussed with [facility] psychology with plan to see [facility] provider 2 months post op. Eating behaviors and readiness for surgery- Reviewed importance of continuing to work on strategiesto help manage behaviors. Recommend tracking (Baritastic Celso) and measuring food. Goals of 60 [...] labs & completing documentation. Kailyn Urbano APRN * Belinda Heath, KIRT - 03/06/2024 1:00 PM EDT Bariatric Surgery Program Pre-op Nutrition Assessment - Second Visit Vianney Cordero is being seen today for follow-up evaluation in anticipation for bariatric surgery. Initial visit was on 12/20/23. SUBJECTIVE: Changes made in preparation since last visit: Things are good. No changes since last visit. Met with Dr. Amanda- is on max dose of phentermine and metformin. Decreased portions. 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 3 children. Pt lives with 2 sons, granddaughter (pt has guardianship). Has SO, does not live with him. Social support: SO, children, mom, sister in [place] Hobbies: walking, hiking, fishing (allergy so can't touch the fish), spending time w family and friends Vision at 2 years post-op: improved quality of life, easier time climbing [place], has a lot of trails she'd like to get to that are step and cannot get up now. Weight outcome: would like to get back to 150 but realizes that is not realistic. 200 or a little under Challenges/barriers to success: None. Tracking: My Net Diary 24-hour recall: Breakfast Protein shake- Homemade: Kyrgyz yogurt- light and fit Kyrgyz- 12 g, Lactaid milk (1/2 cup),banana Snack Lunch Salad- lettuce, parm cheese, few pieces of chicken with light vinaigrette Snack Supper ~4-8 oz (?) Steak and macaroni and cheese (1/2 c) Snacks Fluids: 48+ oz water, Propel, Hint Exercise: FREIGHT INSPECTOR in [place]- on her feet all day. Energy is good. Has 5 dogs. OBJECTIVE: Weight History: Date Weight (lbs) HT BMI Comments 12/20/23 256# Highest Weight 11/15/22 233# 63 41.3 Initial program weight 12/20/23 256# 45.3 1st pre-op visit 03/06/24 242.2# 42.8 EWL % Surgery 3 weeks post-op 4 months post-op [place]lee Body Weight (based on BMI of 25): 141 30-70% Excess Weight Loss: 176-222#; 50% Excess Weight Loss: 199# ASSESSMENT: Pt continues to make changes in preparation for bariatric surgery. PLAN: Start tracking using My Net Diary. Begin to measure foods. Review Stage 2 diet. Create a meal plan for meeting 60 g protein per day goal using 1/2 cup portions. Aim to have 20 g protein in your protein drink - could increase milk to 1 cup in current protein drink. Pt to attend pre-op class prior to surgery Pt has contact information for further questions. * Chrystal Damon MD - 03/06/2024 1:00 PM EDT Vianney Cordero is a 48 y.o. female [...] Desired procedure: Tyesha takedown, conversion to Laparoscopic Barbi en Y gastric bypass Current weight/BMI: Wt & BMI By Encounter Date Flowsheet Row Office Visit from 03/06/2024 in General Surgery at [facility] Office Visit from 02/04/2024 in Weight and Wellness at [facility] Weight 109.9 kg (242 lb 4.8 oz) 1 03/06/2024 1254 113.3 kg (249 lb 12.8 oz) 1 02/04/2024 1626 BMI -- 44.15 1 02/04/2024 1626 Discussion of treatment of obesity and of the [facility] Bariatric Surgery Program: Vianney Cordero is aware that other treatments for obesity are available, ie, dietary, behavior modification, weight loss medications, exercise as well as surgical weight loss methods. The risks and benefits of bariatric surgery, including gastric bypass and sleeve gastrectomy are discussed at every Introduction to the [facility] Bariatric Surgery Program meeting and all Educational Seminars, and were again discussed individually today. Assessment/Plan: Vianney Cordero. is a 48 y.o.. with severe obesity with co-morbidities who is a good candidate for tyesha takedown and conversion to laparoscopic barbi en y gastric bypass. Thepatient is motivated [...] surgery to be successful. She understands the predatory animal exterminator risks of vitamin deficiencies, internal hernias and [...] 6 months of surgery, nutrition labs per [facility] accredited bariatric center guidelines - Ongoing weight loss encouraged - Given a surgery date documented in this encounter Plan of Treatment Upcoming Encounters Date Type Department Care Team (Late st Contact Info) Description 12/31/2024 10:00 AM EST Office [place] [phone] Mercy Amanda MD [facility] DR [facility] [address] 04/01/2025 2:00 PM EDT Office Visit [place] [phone] Erum Szymanski MD [facility] [place] [address] documented as of this encounter Goals Goal [...] (would rather have you choose regular bread/ setswana muffin, etc. - whole wheat if possible- [...] documented as of this encounter Results * Hemogram (03/06/2024 3:13 PM EDT) White Blood Cell 7.3 4.0 - 9.5 x10(3)/[facility] LABORATORY Red Blood Cell 4.63 4.00 - 5.21 x10(6)/[facility] LABORATORY Hemoglobin 13.9 11.7 - 15.5 g/dL [facility] Hematocrit 40.5 35.7 - 45.8 % [facility] Mean Cell Volume 87.5 82.6 - 94.4 [facility] LABORATORY Mean Cell Hemoglobin 30.0 27.1 - 32.0 pg [facility] Mean Cell Hemoglobin Concentration 34.3 31.7 - 35.0 g/dL [facility] Platelet 291 145 - 357 x10(3)/[facility] LABORATORY RDW Standard Deviation 37.8 37.0 - 46.0 [facility] LABORATORY RDW coefficient of variation 11.9 11.5 - 14.1 % [facility] Mean Platelet Volume 10.2 7.6 - 12.9 fL [facility] NRBC% auto 0.0 % [facility] NRBC Absolute 0.000 0.000 - 0.000 x10(3)/mcL [facility] Blood 03/06/2024 3:13 PM EDT 03/06/2024 3:28 PM EDT Narrative Resulting Agency Comment Spec In Lab Kailyn E Yolie PACKAGING MATERIALS INSPECTOR HEMATOLOGY ORDERAB LES [facility] [place] [address] * Comprehensive metabolic panel (non-fasting) (03/06/2024 3:13 PM EDT) Glucose 94 65 - 199 mg/dL [facility] Comment:Diabetes: >=200 mg/d L plus symptoms Blood Urea Nitrogen 15 8 - 18 mg/dL [facility] Creatinine 0.92 0.70 - 1.20 mg/dL [facility] Sodium 142 135 - 145 mmol/L [facility] Potassium 4.0 3.5 - 5.0 mmol/L [facility] Comment: Please note: ??Patients with WBC >100,000 may have falsely elevated Potassium levels. ??For accurate Potassium quantification in these patients send serum separator tube (gold top) for subsequent determinations. ??Contact the Clinical Chemistry Laboratory if there are any questions. Chloride 106 98 - 107 mmol/L [facility] Carbon Dioxide 24 22 - 31 mmol/L [facility] Anion Gap 12 5 - 15 mmol/L [facility] Calcium 9.4 8.5 - 10.5 mg/dL [facility] Protein, Total 7.3 6.1 - 8.0 g/dL [facility] Albumin 4.4 3.2 - 5.2 g/dL [facility] Aspartate Aminotransferase 24 0 - 30 unit/L [facility] Alanine Aminotransferase 18 0 - 30 unit/L [facility] Alkaline Phosphatase 94 35 - 105 unit/L [facility] Bilirubin, Total 0.3 0.2 - 1.3 mg/dL [facility] Est Glomerular Filtration Rate 77 >=60 mL/min/1. 73 m?? [facility] Comment: This patient's estimated GFR [...] and symptoms in addition to eGFR. Blood 03/06/2024 3:13 PM EDT 03/06/2024 3:28 PM EDT Narrative Resulting Agency Comment Spec In Lab Kailyn E Mcleod PACKAGING MATERIALS INSPECTOR CHEMISTRY ORDERABL ES [facility] [place] [address] documented in this encounter Visit Diagnoses Diagnosis Pre-op evaluation Preoperative examination, unspecified Obesity, unspecified classification, unspecified obesity type, unspecified whether serious comorbidity present documented in this encounter Care Teams Job Development Specialist Relationship Specialty Start Date End Date Sonido Cordoba [address] [place] [address] PCP - General Family Medicine 07/06/20 documented as of this encounter
--- OUTSIDE RECORDS SUMMARY | 2024-10-16 17:36 | XMS_ITS | Encounter Summary ---
Author Organization [place] [address] Care Team Providers Care Debrander Name Role Phone Sonido Cordoba Primary Care Provider +1- [phone] Encounter Details Date Type Department Care Team (Latest Contact Info) Description 07/18/2024 Travel Social History Tobacco Use Types Packs/Day [...] AM EST Office Visit Weight Center at [facility] [place] [address] Mercy Amanda MD [facility] [address] [facility] [place] [address] 04/01/2025 2:00 PM EDT Office Visit Gastroenterology at [facility] [place] [phone] Erum Szymanski MD [facility] [place] [address] documented as of this encounter Goals Goal [...] (would rather have you choose regular bread/ grenadian muffin, etc. - whole wheat if possible- [...] on filedocumented in this encounter Care Teams Debrander Relationship Specialty Start Date End Date Sonido Cordoba PA [address] [place] [address] PCP - General Family Medicine 07/06/20 documented as of this encounter
--- OUTSIDE RECORDS SUMMARY | 2024-10-16 17:36 | XMS_ITS | Encounter Summary ---
Author Organization [place] [address] Care Team Providers Care Rocket Motor Mechanic Name Role Phone Sonido Cordoba Primary Care Provider +1- [phone] Reason for Visit * Reason Onset Date Comments Medication Refill 04/16/2024 Encounter Details Date Type Department Care Team (Late st Contact Info) Description 04/16/2024 [place]ill [place] [address] Mercy Amanda MD [facility] [address] [facility] [address] Class 3 severe obesity with serious comorbidity and body mass index (BMI) of 40.0 to 44.9 in adult, unspecified obesity type Social History Tobacco Use Types Packs/Day [...] AM EST Office [place] [phone] Mercy Amanda MD [facility] [address] [facility] [address] 04/01/2025 2:00 PM EDT Office [place] [phone] Erum Szymanski MD [facility] [place] [address] documented as of this encounter Goals Goal [...] a priority: - Eggs - Cheese - Uzbek yogurt / cottage cheese - meat - fish - nuts/seeds - protein shake or bar Start with the protein, can choose to add other foods (would rather have you choose regular bread/ american muffin, etc. - whole wheat if possible- [...] to 44.9 in adult, unspecified obesity type documented in this encounter Care Teams Rocket Motor Mechanic Relationship Specialty Start Date End Date Sonido Cordoba PA [address] [place] [address] PCP - General Family Medicine 07/06/20 documented as of this encounter
--- OUTSIDE RECORDS SUMMARY | 2024-10-16 17:36 | XMS_ITS | Encounter Summary ---
[place] [address] Care Team Providers Care Leather Patcher Name Role Phone Sonido Cordoba Primary Care Provider [phone]- [phone] Encounter Details Date Type Department Care Team (Latest Contact Info) Description 03/06/2024 3:05 PM EDT Laboratory Appointment Lab [address] [place] [address] Pre-op evaluation; Obesity, unspecified classification, unspecified obesity [...] AM EST Office [place] [address] Mercy Amanda MD [facility] [address] [facility] [address] 04/01/2025 2:00 PM EDT Office Visit Gastroenterology at [facility] [place] [id number] Erum Szymanski MD [facility] [place] [address] documented as of this encounter Goals Goal [...] a priority: - Eggs - Cheese - Djiboutian yogurt / cottage cheese - meat - fish - nuts/seeds - protein shake or bar Start with the protein, can choose to add other foods (would rather have you choose regular bread/ bulgarian muffin, etc. - whole wheat if possible- [...] Priority Date/Time Associated Diagnosis Comments HEMOGRAM Routine 03/06/2024 3:13 PM EDT Pre-op evaluation Obesity, unspecified classification, unspecified obesity type, unspecified whether serious comorbidity present COMPREHENSIVE METABOLIC PANEL Routine 03/06/2024 3:13 PM EDT Pre-op evaluation Obesity, unspecified classification, unspecified obesity type, unspecified whether serious comorbidity present documented in this encounter Results * Comprehensive metabolic panel (non-fasting) (03/06/2024 3:13 PM EDT) Glucose 94 65 - 199 mg/dL [facility] Comment:Diabetes: >=200 mg/d L plus symptoms Blood Urea Nitrogen 15 8 - 18 mg/dL [facility] Creatinine 0.92 0.70 - 1.20 mg/dL [facility] Sodium 142 135 - 145 mmol/L [facility] Potassium 4.0 3.5 - 5.0 mmol/L [facility] Comment: Please note: ??Patients with WBC >100,000 may have falsely elevated Potassium levels. ??For accurate Potassium quantification in these patients send serum separator tube (gold top) for subsequent determinations. ??Contact the Clinical Chemistry Laboratory if there are any questions. Chloride 106 98 - 107 mmol/L [facility] Carbon Dioxide 24 22 - 31 mmol/L [facility] Anion Gap 12 5 - 15 mmol/L [facility] Calcium 9.4 8.5 - 10.5 mg/dL [facility] Protein, Total 7.3 6.1 - 8.0 g/dL [facility] Albumin 4.4 3.2 - 5.2 g/dL [facility] Aspartate Aminotransferase 24 0 - 30 unit/L [facility] Alanine Aminotransferase 18 0 - 30 unit/L [facility] Alkaline Phosphatase 94 35 - 105 unit/L [facility] Bilirubin, Total 0.3 0.2 - 1.3 mg/dL [facility] Est Glomerular Filtration Rate 77 >=60 mL/min/1. 73 m?? [facility] Comment: This patient's estimated GFR [...] Resulting Agency Comment Spec In Lab Kailyn Lavelle Urbano ASSET PROTECTION DETECTIVE CHEMISTRY ORDERABL ES [facility] [place] [address] * Hemogram (03/06/2024 3:13 PM EDT) White Blood Cell 7.3 4.0 - 9.5 x10(3)/[facility] Red Blood Cell 4.63 4.00 - 5.21 x10(6)/[facility] Hemoglobin 13.9 11.7 - 15.5 g/dL [facility] Hematocrit 40.5 35.7 - 45.8 % [facility] Mean Cell Volume 87.5 82.6 - 94.[address] [facility] Mean Cell Hemoglobin 30.0 27.1 - 32.[address] [facility] Mean Cell Hemoglobin Concentration 34.3 31.7 - 35.0 g/dL [facility] Platelet 291 145 - 357 x10(3)/[facility] RDW Standard Deviation 37.8 37.0 - 46.[address] [facility] RDW coefficient of variation 11.9 11.5 - 14.1 % [facility] Mean Platelet Volume 10.2 7.6 - 12.[address] [facility] NRBC% auto 0.0 % [facility] NRBC Absolute 0.000 0.000 - 0.000 x10(3)/[facility] Blood 03/06/2024 3:13 PM EDT 03/06/2024 3:28 PM EDT Narrative Resulting Agency Comment Spec In Lab Kailyn E Yolie ASSET PROTECTION DETECTIVE HEMATOLOGY ORDERAB LES [facility] [place] [address] documented in this encounter Visit Diagnoses Diagnosis Pre-op evaluation Preoperative examination, unspecified Obesity, unspecified classification, unspecified obesity type, unspecified whether serious comorbidity present documented in this encounter Care Teams Leather Patcher Relationship Specialty Start Date End Date Sonido Cordoba PA [address] [place] [address] PCP - General Family Medicine 07/06/20 documented as of this encounter
--- OUTSIDE RECORDS SUMMARY | 2024-10-16 17:36 | XMS_ITS | Encounter Summary ---
Author [place] [address] Care Team Providers Care Sugar Cane Planter Name Role Phone Sonido Cordoba Primary Care Provider [phone]- [phone] Reason for Visit * Auth/Cert (Routine) Specialty Diagnoses / Procedures Referred By Aric t Referred To Contact Diagnoses Morbid Obesity Procedures PRO LAP GASTRIC BYPASS/ELVIE-EN-Y PRO UPPER GI ENDOSCOPY, DIAGNOSTIC PRO UNLISTED LAPAROSCOPIC PROCEDURE ESOPHAGUS @LAPAROSCOPIC GASTROPLASTY W/ ELVIE-EN-Y CONSTRUCTION (WRVU 29.4) EGD, UPPER GI ENDOSCOPY (WRVU 2.09) LAPAROSCOPIC TAKEDOWN PREVIOUS TYESHA (WRVU 48.75) Chrystal Damon MD [facility] [place] [address] [facility] Referral ID Status Reason Start Date Expiration Date Visits Re quested Visits Authorized [id number] 1 1 Encounter Details Date Type Department Care Team (Late st Contact Info) Description 05/29/2024 7:36 AM EDT Anesthesia Event [place] [phone] Pari Grullon MD [facility] [place] [address] Demond Salgado Anesthesia Record Procedure Summary Procedure Name Responsible Anesthesiologist Anesthesia Start Time Anesthesia Stop Time @LAPAROSCOPIC GASTROPLASTY W/ ELVIE-EN-Y CONSTRUCTION (WRVU 29.4) (Abdomen) Pari Grullon MD 05/29/24 0736 05/29/24 1308 Events Date Time Event Comment 05/29/2024 0733 0736 Start 0741 AN Verify 0741 An Start Data 0749 An Induction 0751 An Intubation Eyes taped bef ore masking. No change in dentition or soft tissue with intubation/insertion. 0756 Anesthesia Ready 0839 Break/Relief In I assumed ca re for Break Relief before which we: 1. Identified the patient 2. Identified the responsible provider(s) 3. Reviewed the pertinent medical history 4. Discussed the surgical plan and course 5. Reviewed intra-op anesthesia management and issues during anesthesia 6. Set expectations for the relief (and/or post-procedure) period 7. Allowed opportunity for questions and acknowledgement of understanding Tip SALESPERSON TERRAZZO TILES 0859 Break/Relief In I assumed ca re for Break Relief before which we: 1. Identified the patient 2. Identified the responsible provider(s) 3. Reviewed the pertinent medical history 4. Discussed the surgical plan and course 5. Reviewed intra-op anesthesia management and issues during anesthesia 6. Set expectations for the relief (and/or post-procedure) period 7. Allowed opportunity for questions and acknowledgement of understanding Filiberto Castro MD 0909 Quick Note Warm blanket pl aced over head to optimize heat insulation 0946 Quick Note Temp probe and OGT removed from mouth per surgeon request. Temp probe moved from esophageal to nasal 1008 Quick Note EGD 1151 Quick Note 30Fr Bougie kofi marlyn per surgeon request 1254 Extubation/LMA Out Oropharyn x suctioned, extubated with head of bed elevated. Muscle relaxant fully reversed 1256 an stop data 1308 Recovery or ICU Handoff Radha ent care was transferred to the destination unit staff after review of the patient's medical history, current anesthetic/surgical status and plan, according to the Provider Handoff Checklist. 1308 Stop Meds Name Total midazolam 2 mg fentaNYL 200 mcg propofoL 300 mg propofol INF 2,507.71 mg dexmedeTOMIDine 4 mcg/mL 24 mcg succinylcholine 100 mg ceFAZolin 3 g REMIfentanil INF 4.32 mg rocuronium 120 mg dexAMETHasone 8 mg esmolol 30 mg labetalol 10 mg sugammadex 200 mg lactated ringers infusion 600 mL * Agents Name O2 * Blood No blood administrations on file. Lines, Drains, and Airways Type Details Placement Removal PIV 05/29/24; 644; [id number] catheter system; 22 gauge; metacarpal vein (top of hand), left; Anatomical Landmarks; US Not Used; distraction, intradermal injection 05/29/24 0645 by Barb Baker RN Incision 05/29/24; 08; Bila teral, anterior; abdomen; laparoscopic punctures (specify); x6 LAP SITES 05/29/24820 by Mina Fisher RN ETT Mask Ventilation: Martínez sahu (1); ETT Type: Cuffed; ETT Size: 7 mm; Mac Blade: 4; Attempts: 1; Laryngoscopy Grade: 1; ETT Placement Verified By: Auscultation, Capnometry, Visual; Secured at Teeth: 21 cm; Inserted by: MD Matthew; Removal Date: 05/29/24; Removal Time: 1254 05/29/24 0751 by Filiberto Castro MD 05/29/24 1254 by Filiberto Castro MD NG/OG Tube 05/29/24; 0758; orog malaicAmy; 16 Fr; right mouth; 05/29/24; 1232 05/29/24 0758 by Filiberto Castro MD 05/29/24 1232 by Filiberto Castro MD documented in this encounter Social History Tobacco Use Types Packs/Day Years [...] on file documented as of this encounter OR Notes * Anesthesia Postprocedure Evaluation - Pari Grullon MD - 05/29/2024 1:11 PM EDT Department of Anesthesiology Post-procedure Note Patient: Vianney Cordero Procedure Summary Date: 05/29/24 Room / Location: [facility] OR [address] [place] [address] MAIN OR Anesthesia Start: 735 Anesthesia Stop: 1307 Procedures: @LAPAROSCOPIC GASTROPLASTY W/ ELVIE-EN-Y CONSTRUCTION (WRVU 29.4) (Abdomen) EGD, UPPER GI ENDOSCOPY (WRVU 2.09) LAPAROSCOPIC TAKEDOWN PREVIOUS TYESHA (WRVU 48.75) (Abdomen) MODIFIER, HIATAL HERNIA Diagnosis: (Morbid Obesity) Surgeons: Chrystal Damon MD Responsible Provider: Pari Grullon MD Anesthesia Type: general ASA Status: 2 All Anesthesia Providers: Anesthesiologist: Pari Grullon MD Brush Trimming Machine Setter: Filiberto Castro MD Vitals Value Taken Time BP 155/97 05/29/24 1303 Temp Pulse 89 05/29/24 1311 Resp 20 05/29/24 1311 SpO2 97 % 05/29/24 1311 Pain Level Vitals shown include unfiled device data. Patient Location: PACU/[facility] Level of Consciousness: Awake and Alert Pain Management: Satisfactory Analgesia PONV: None Cardiovascular Status: At Baseline and Hemodynamically Stable Respiratory Status: At Baseline and Room Air Postoperative Fluid Status: Intravascular EUvolemia Possible Anesthetic Complications: NONE apparent at time of evaluation Final Primary Anesthesia Type: General (The anesthetic type performed was the same as planned.) Comments: Tolerated anesthesia without any complications, pain well controlled and no complaints ofpost-op nausea/vomiting. Filiberto Castro MD * Anesthesia Preprocedure Evaluation - Pari Grullon MD - 05/28/2024 2:45 PM EDT Pre-Anesthesia Evaluation for: Vianney Cordero a 48 y.o. female. Procedure(s): @LAPAROSCOPIC GASTROPLASTY W/ ELVIE-EN-Y CONSTRUCTION (WRVU 29.4) EGD, UPPER GI ENDOSCOPY (WRVU 2.09) LAPAROSCOPIC TAKEDOWN PREVIOUS TYESHA (WRVU 48.75) Patient Active Problem List Diagnosis Date Noted ??? 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 03/29/2023 ??? Gastroesophageal reflux disease with esophagitis 03/29/2023 ??? S/P laparoscopic cholecystectomy 03/28/2023 ??? Insulin resistance 11/15/2022 ??? Elevated ferritin 11/15/2022 ??? Elevated LDL cholesterol level 11/15/2022 ??? Fatty liver 10/06/2021 ??? Anxiety 10/06/2021 ??? Depression 10/06/2021 ??? Post-traumatic stress disorder, unspecified 10/06/2021 ??? Kidney stone 10/06/2021 ??? BMI 45.0-49.9, adult 10/06/2021 ??? Peroneal tendon tear, right, subsequent encounter 05/04/2020 ??? Left ankle pain 10/26/2017 ??? Hx of tonsillectomy 08/01/2015 ??? History of dilation and curettage 08/01/2015 ??? History of Tyesha fundoplication 06/201508/01/2015 ??? Pain in left shoulder 07/30/2015 ??? Right knee pain 07/30/2015 ??? Ulnar neuropathy at elbow of right upper extremity 04/02/2015 ??? Hiatal hernia 04/02/2015 ??? Elbow pain, right 08/27/2013 Past Medical History: Diagnosis Date ??? PTSD (post-traumatic stress disorder) Past Surgical History: Procedure Laterality Date ??? CHOLECYSTECTOMY ??? DILATION AND CURETTAGE OF UTERUS 11/05/1994 ??? PRO COLONOSCOPY, BIOPSY N/A 08/21/2018 COLONOSCOPY FLEXIBLE, WITH BX (WRVU 3.66) performed by Erum Szymanski MD at [facility] ENDOSCOPY ??? PRO COLONOSCOPY, BIOPSY N/A 09/04/2019 COLONOSCOPY FLEXIBLE, WITH BX (WRVU 3.66) performed by Steve Ji MD at [facility] ENDOSCOPY ??? PRO COLONOSCOPY, DIAGNOSTIC N/A 09/04/2019 COLONOSCOPY, DIAGNOSTIC performed by Steve Ji MD at [facility] ENDOSCOPY ??? PRO COLONOSCOPY, DIAGNOSTIC N/A 06/01/2023 COLONOSCOPY,SCREENING (WRVU 3.26) performed by Steve Ji MD at [facility] ENDOSCOPY ??? PRO COLONOSCOPY, REMV LESN, SNARE N/A 08/21/2018 COLONOSCOPY, POLYPECTOMY, REMOVAL LESION BY SNARE (WRVU 4.67) performed by Erum Szymanski MD at [facility] ENDOSCOPY ? ? PRO CYSTO W URETEROSCOPY &/OR PYELOSCOPY, DX Right 06/01/2015 CYSTOURETEROSCOPY, DIAGNOSTIC performed by Darius Nuñez Jr., MD at [facility] MAIN OR ??? PRO CYSTOSCOPY, INSERT URETERAL STENT Right 06/01/2015 CYSTO, STENT PLACEMENT performed by Darius Nuñez Jr., MD at [facility] MAIN OR ??? PRO LAPAROSCOPY SURG ESOPHAGOGASTRIC FUNDOPLASTY N/A 04/05/2015 LAPAROSCOPIC TYESHA FUNDOPLASTY performed by Valentín Moura MD at [facility] MAIN OR ??? PRO PERCUT DILATN RENAL TRACT Right 06/01/2015 PERCUTANEOUS INTRO GUIDE WIRE TO ACCESS RENAL PELVIS,AND OR URETER, W\DILATION performed by Darius Nuñez Jr., MD at [facility] MAIN OR ??? PRO PERQ NL/PL LITHOTRIPSY SIMPLE UP TO 2 CM 1 LOCATION Right 06/01/2015 NEPHROLITHOTOMY, ([facility]NL) PERCUTANEOUS performed by Darius Nuñez Jr., MD at [facility] MAIN OR ??? PRO REPAIR PERONEAL TENDONS Right 08/12/2020 PERONEAL TENDON REPAIR (WRVU 7.35) performed by Mani Jefferson MD at [facility] OSC ??? PRO UPPER GI ENDOSCOPY, BIOPSY N/A 01/27/2015 EGD WITH BIOPSY performed by Brandt Barlow MD at [facility] ENDOSCOPY ??? PRO UPPER GI ENDOSCOPY, BIOPSY N/A 02/28/2016 EGD WITH BIOPSY performed by Brandt Barlow MD at [facility] ENDOSCOPY ??? PRO UPPER GI ENDOSCOPY, BIOPSY N/A 09/04/2016 EGD WITH BIOPSY performed by Brandt Barlow MD at [facility] ENDOSCOPY ??? PRO UPPER GI ENDOSCOPY, BIOPSY N/A 09/24/2017 EGD WITH BIOPSY (WRVU 2.49) performed by Brandt Barlow MD at [facility] ENDOSCOPY ??? PRO UPPER GI ENDOSCOPY, BIOPSY N/A 08/21/2018 EGD WITH BIOPSY (WRVU 2.49) performed by Erum Szymanski MD at [facility] ENDOSCOPY ??? PRO UPPER GI ENDOSCOPY, BIOPSY N/A 09/04/2019 UPPER GASTROINTESTINAL ENDOSCOPY,WITH BIOPSY SINGLE OR MULTIPLE (WRVU 2.49) performed by Steve Ji MD at [facility] ENDOSCOPY ??? PRO UPPER GI ENDOSCOPY, BIOPSY N/A 05/24/2021 EGD WITH BIOPSY (WRVU 2.49) performed by Kathy Carnes MD at [facility] ENDOSCOPY ??? PRO UPPER GI ENDOSCOPY, BIOPSY N/A 06/01/2023 EGD WITH BIOPSY (WRVU 2.39) performed by Steve Ji MD at [facility] ENDOSCOPY ??? PRO UPPER GI ENDOSCOPY, DIAGNOSTIC N/A 09/04/2019 EGD, UPPER GI ENDOSCOPY performed by Steve Ji MD at [facility] ENDOSCOPY ??? TONSILLECTOMY Social History Tobacco Use ??? Smoking status: Former Current packs/day: 0.00 Average packs/day: 0.5 packs/day for 6.0 years (3.0 ttl pk-yrs) Types: Cigarettes Start date: 01/25/1991 Quit date: 01/25/1997 Years since quittin.3 ??? Smokeless tobacco: Never Substance Use Topics ??? Alcohol use: Not Currently Comment: 1X/quarter Social History Substance and Sexual Activity Drug Use No Allergies Allergen Reactions ??? Ketchup Rash ??? Lactose ??? Oxycodone Nausea And Vomiting ??? Shellfish Containing Products ??? Ibuprofen Interacts with protonix PCP said she shouldn't take it Medications: MAR and/or home medications have been reviewed. Physical Exam: Preprocedure Vitals Current as of 05/28/24 1445 No BP, pulse, respiration, SpO2, or temperature recorded. Height: Weight: 109.9 kg (242 lb 4.8 oz) (03/06/24) BMI: IBW: Airway Assessment: Mallampati: II TM distance: >3 FB Neck ROM: full Cardiovascular Assessment: system normal Pulmonary Assessment: pulmonary exam normal Dental Assessment: - normal exam Misc Assessment: Patient is wearing No contact(s). IV access: Peripheral line Last Filed Perioperative Cognitive Screening None Anesthesia Plan: ASA 2 general, with a(n) intravenous induction 48 y.o. female, non-smoker BMI 43 with morbid obesity presenting for laparoscopic Elvie en y gastricbypass. Exercise tolerance: Greater than 4 METS Medical History: -Insulin resistance 2/2 morbid obesity- metformin for weight loss; HBA1c- 5.6%-11/2023. -VELIZ -Hiatal hernia hernia s/p Tyesha fundoplication. -Anxiety/depression - PTSD -Renal stones s/p lithotripsy. - Hx of GERD c/b 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- asymptomatic on Pantoprazole 40mg BID -?Meclizine Surgical History: s/p Tyesha fundoplication 06/2015, multiple UGI endoscopy, s/p peroneal tendon repair, D&C of uterus, cholecystectomy, tonsillectomy. Anesthetic History: no prior anesthesia complications. 06/01/23-EGD, tolerated MAC. 08/12/20- Generalfor peroneal tendon repair; iGel LMA size 3. 06/01/15- PCNL- GA, Gr2v, x1 attempt, cricoid needed, Che 2, 7.0 ETT. 04/05/15- lap Tyesha fundoplication- GA, Gr1v with Mac 4, cricoid applied, x1 attempt, 7.0 ETT. Allergies reviewed Labs reviewed Recent Labs 03/06/24 1513 11/07/23 0747 WBC 7.3 7.6 HGB 13.9 13.4 HCT 40.5 39.7 PLATELET 291 282 Recent Labs 03/06/24 1513 11/07/23 0747 NA 142 142 K 4.0 4.3 CL 106 105 CO2 24 25 BUN 15 15 CREATININE 0.92 0.82 Recent Labs 03/06/24 1513 11/07/23 0747 AST 24 27 ALT 18 19 ALKPHOS 94 82 BILITOT 0.3 <0.2* No results for input(s): PT, INR, PTT in the last 168 hours. Lab Results Component Value Date ABORH A Pos 06/01/2015 EKG: n/a Echocardiogram: n/a NPO Status: ---npo Anesthetic Plan: GA w/ ETT Standard ASA monitoring PIV access Filiberto Castro MD 05/28/2024 direct care counselor (Yadi): chart reviewed and patient interviewed and examined in SDA prior to procedure. Agree with resident note and plan. Add that patient is NPO>8h (meds with sips of water), did not take the GLP-1 (insurance did not pay for it). States she could not be . No complications with prior anesthesia. Plan: RSI GA, midazolam salon sales consultant to the operating room (states she isnervous). Region - Other Informed Consent: Anesthetic plan and risks discussed with patient. Plan discussed with resident. Anesthesia Screening documented in this encounter Plan of Treatment Upcoming Encounters Date Type Department Care Team (Late st Contact Info) Description 12/31/2024 10:00 AM EST Office Visit [place] [address] Mercy Amanda MD [facility] [address] [facility] [place] [address] 04/01/2025 2:00 PM EDT Office Visit [place] [address] Erum Szymanski MD [facility] [place] [address] documented as of this encounter Goals Goal [...] a priority: - Eggs - Cheese - Nigerian yogurt / cottage cheese - meat - fish - nuts/seeds - protein shake or bar Start with the protein, can choose to add other foods (would rather have you choose regular bread/ urdu muffin, etc. - whole wheat if possible- [...] Diagnoses Not on filedocumented in this encounter Administered Medications Inactive Administered Medications - up to 3 most recent administrations Medication Order MAR Action Action Date Dose Rate Site ceFAZolin (Ancef) (100 mg/mL) injection solution Intravenous, PRN, Starting on Brittny 05/29/24 at 0813, Until Brittny 05/29/24 at 1308, Anesthesia Intra-op, Routine Given 05/29/2024 8:13 AM EDT 3 g dexAMETHasone (Decadron) injection Intravenous, PRN, Starting on Brittny 05/29/24 at 0816, Until Brittny 05/29/24 at 1308, Anesthesia Intra-op, Routine Given 05/29/2024 8:16 AM EDT 8 mg dexmedeTOMIDine (Precedex) (4 mcg/mL) bolus injection (Anesthsia) Intravenous, PRN, Starting on Brittny 05/29/24 at 0749, Until Brittny 05/29/24 at 1308, Anesthesia Intra-op, Routine Given 05/29/2024 12:43 PM EDT 8 mcg Given 05/29/2024 11:57 AM EDT 8 mcg Given 05/29/2024 7:49 AM EDT 8 mcg esmoloL (Brevibloc) (10 mg/mL) injection Intravenous, PRN, Starting on Brittny 05/29/24 at 1153, Until Brittny 05/29/24 at 1308, Anesthesia Intra-op, Routine Given 05/29/2024 11:53 AM EDT 30 mg fentaNYL (pf) (50 mcg/mL) multi-dose injection Intravenous, PRN, Starting on Brittny 05/29/24 at 0749, Until Brittny 05/29/24 at 1308, Anesthesia Intra-op, Routine Given 05/29/2024 12:40 PM EDT 50 mcg Given 05/29/2024 12:16 PM EDT 50 mcg Given 05/29/2024 11:39 AM EDT 75 mcg labetaloL (Normodyne) (5 mg/mL) multi-dose injection Intravenous, PRN, Starting on Brittny 05/29/24 at 1159, Until Brittny 05/29/24 at 1308, Anesthesia Intra-op, Routine Given 05/29/2024 11:59 AM EDT 10 mg lactated ringers infusion 50 mL/hr, Intravenous, CONTINUOUS, Starting on Brittny 05/29/24 at 0630, Until Brittny 05/29/24 at 1455, Day of Surgery (Day of Procedure) Restarted 05/29/2024 10:18 AM EDT Rate/Dose Change 05/29/2024 8:12 AM EDT 50 mL/h r New Bag 05/29/2024 6:48 AM EDT 50 mL/hr 50 mL/hr midazolam (pf) (Versed) (1 mg/mL) multi-dose injection Intravenous, PRN, Starting on Brittny 05/29/24 at 0736, Until Brittny 05/29/24 at 1308, Anesthesia Intra-op, Routine Given 05/29/2024 7:36 AM EDT 2 mg propofoL (Diprivan) (10 mg/mL) infusion Intravenous, CONTINUOUS PRN, Starting on Brittny 05/29/24 at 0749, Until Brittny 05/29/24 at 1308, Anesthesia Intra-op, Routine Rate/Dose Change 05/29/2024 11:41 AM EDT 120 mcg/kg/min 55.368 mL/hr Rate/Dose Change 05/29/2024 8:26 AM EDT 100 mcg/kg/min 46. 14 mL/hr New Bag 05/29/2024 7:49 AM EDT 150 mcg/kg/min 69.21 mL/ hr propofoL (Diprivan) 10 mg/mL bolus injection (Anesthesia) Intravenous, PRN, Starting on Brittny 05/29/24 at 0749, Until Brittny 05/29/24 at 1308, Anesthesia Intra-op Given 05/29/2024 8:21 AM EDT 50 mg Given 05/29/2024 7:49 AM EDT 250 mg remifentaniL (Ultiva) (0.02 mg/mL) infusion (Anesthesia) Intravenous, CONTINUOUS PRN, Starting on Brittny 05/29/24 at 0823, Until Brittny 05/29/24 at 1308, Anesthesia Intra-op New Bag 05/29/2024 8:23 AM EDT 0.2 mcg/kg/min 66.12 mL/hr rocuronium (Zemuron) (10 mg/mL) multi-dose injection Intravenous, PRN, Starting on Brittny 05/29/24 at 0821, Until Brittny 05/29/24 at 1308, Anesthesia Intra-op, Routine Given 05/29/2024 11:17 AM EDT 40 mg Given 05/29/2024 8:21 AM EDT 80 mg succinylcholine (Anectine;Quelicin) (20 mg/mL) injection Intravenous, PRN, Starting on Brittny 05/29/24 at 0749, Until Brittny 05/29/24 at 1308, Anesthesia Intra-op, Routine Given 05/29/2024 7:49 AM EDT 100 mg sugammadex (Bridion) 100 mg/mL injection Intravenous, PRN, Starting on Brittny 05/29/24 at 1241, Until Brittny 05/29/24 at 1308, Anesthesia Intra-op, Routine Given 05/29/2024 12:41 PM EDT 200 mg documented in this encounter Care Teams Sugar Cane Planter Relationship Specialty Start Date End Date Sonido Cordoba PA [address] [place] [address] PCP - General Family Medicine 07/06/20 documented as of this encounter
--- OUTSIDE RECORDS SUMMARY | 2024-10-16 17:36 | XMS_ITS | Encounter Summary ---
[facility] [place] [address] Care Team Providers Care Rn Training Name Role Phone Sonido Cordoba Primary Care Provider [phone]- [phone] Encounter Details Date Type Department Care Team (Latest Contact Info) Description 09/10/2024 Travel Social History Tobacco Use Types Packs/Day [...] AM EST Office Visit Weight Center at [facility] [place] [address] Mercy Amanda MD [facility] [address] [place] [address] 04/01/2025 2:00 PM EDT Office Visit Gastroenterology at [facility] [place] [phone] Erum Szymanski MD [facility] [place] [address] documented as of this encounter Goals Goal [...] choices Lifestyle On track(2022 9:48 AM EDT) rPiti Waldron RD Note: Images from the original [...] a priority: - Eggs - Cheese - Georgian yogurt / cottage cheese - meat - fish - nuts/seeds - protein shake or bar Start with the protein, can choose to add other foods (would rather have you choose regular bread/ chilean muffin, etc. - whole wheat if possible- [...] on filedocumented in this encounter Care Teams Rn Training Relationship Specialty Start Date End Date Sonido Cordoba PA [address] [place] [address] PCP - General Family Medicine 07/06/20 documented as of this encounter
--- OUTSIDE RECORDS SUMMARY | 2024-10-16 17:36 | XMS_ITS | Encounter Summary ---
[place] [address] Care Team Providers Care Pole Shaver Name Role Phone Sonido Cordoba Primary Care Provider [phone] Reason for Visit * Auth/Cert (Routine) Specialty Diagnoses / Procedures Referred By Aric t Referred To Contact Diagnoses Morbid Obesity Procedures PRO LAP GASTRIC BYPASS/ELVIE-EN-Y PRO UPPER GI ENDOSCOPY, DIAGNOSTIC PRO UNLISTED LAPAROSCOPIC PROCEDURE ESOPHAGUS @LAPAROSCOPIC GASTROPLASTY W/ ELVIE-EN-Y CONSTRUCTION (WRVU 29.4) EGD, UPPER GI ENDOSCOPY (WRVU 2.09) LAPAROSCOPIC TAKEDOWN PREVIOUS TYESHA (WRVU 48.75) Ladan Damon MD [facility] [place] [address] [facility] Referral ID Status Reason Start Date Expiration Date Visits Re quested Visits Authorized [id number] 1 1 Encounter Details Date Type Department Care Team (Latest Contact Info) Description 05/29/2024 6:06 AM EDT - 05/30/2024 2:32 PM EDT Hospital [place] [id number] Ladan Damon MD [facility] [place] [address] 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; Gastroesophageal reflux disease with esophagitis, unspecified whether hemorrhage Discharge Disposition: Home Social History Tobacco Use [...] Sign Reading Time Taken Comments Blood Pressure 167/95 05/30/2024 8:23 AM EDT Pulse 79 05/29/2024 2:30 PM EDT Temperature 36.9 ??C (98.4 ??F) 05/30/2024 4:38 AM ED T Respiratory Rate 16 05/30/2024 8:23 AM EDT Oxygen Saturation 95% 05/30/2024 8:23 AM EDT Inhaled Oxygen Concentration - - [...] Reason for admission: Post operative care following:Laparoscopic Tyesha fundoplication takedown, partial gastric resection, cruroplasty, elvie [...] who presents for planned bariatric surgery and tyesha fundoplication takedown. Hospital Course: Vianney Cordero is [...] RD; Dena Alexander APRN General Surgery at [facility] Arrive at: It Support Engineer Area [phone] Please dispose of unused excess opioids before your appointment or bring them with you to the appointment and we will help you dispose of them correctly. 09/19/2024 10:[address]; Dena Alexander APRN General Surgery at [facility] Arrive at: It Support Engineer Area [phone] 12/08/2024 10:30 AM Mercy Amanda MD Weight and Wellness at [facility] Arrive at: It Support Engineer Area [phone] 04/01/2025 2:00 PM Erum Szymanski MD Gastroenterology at [facility] Arrive at: It Support Engineer Area [phone] Instructions Given to Patient at Discharge: Patient Instructions Discharge Instructions - Bariatric Surgery NEW PRESCRIPTIONS: canal superintendent at [facility] Pharmacy today: Zofran (ondansetron), gabapentin, liquid Dilaudid [...] - 5pm): General Surgery and Bariatric Surgery [phone] Bariatric Surgeons: Jeremy Meléndez Trus [phone] Trolley Operator: [phone] Dietitians: [phone] Outside of regular business hours, including weekends and holidays: Ask for General Surgery resident international sales representative [phone] Please note, this call will be answered [...] Surgery Team in 3 weeks at the [facility] (It Support Engineer 4L, [facility]). Future Appointments Date Time Provider Department Center 06/20/2024 12:30 PM Dena Alexander APRN [facility] SURG [facility] 09/19/2024 10:00 AM Dena Alexander APRN [facility] SURG [facility] 12/08/2024 10:30 AM Mercy Amanda MD [facility] WEIGHT [facility] 04/01/2025 2:00 PM Erum Szymanski MD [facility] GASTRO [facility] WOUND CARE You have liquid dressing over [...] twice daily. Please call or send a Clickability message if you do not have a [...] Follow up with primary care provider or computer forensic specialist in 1-2 weeks in order to [...] RD; Dena Alexander APRN General Surgery at [facility] Arrive at: It Support Engineer Area [phone] Please dispose of unused excess opioids before your appointment or bring them with you to the appointment and we will help you dispose of them correctly. 09/19/2024 10:[address]; Dena Alexander APRN General Surgery at [facility] Arrive at: It Support Engineer Area [phone] 12/08/2024 10:30 AM Mercy Amanda MD Weight and Wellness at [facility] Arrive at: It Support Engineer Area [phone] 04/01/2025 2:00 PM Eurm Szymanski MD Gastroenterology at [facility] Arrive at: It Support Engineer Area [phone] Signed: Elly Zuleta MD [facility] Physician: WANDY Aguilera [address] / [facility] [id number] documented in this encounter Discharge Instructions * Patient Instructions* Crystal Mendez PA - 05/21/2024 11:25 AM EDT Images from the original note were not included. Discharge Instructions - Bariatric Surgery NEW PRESCRIPTIONS: canal superintendent at [facility] Pharmacy today: Zofran (ondansetron), gabapentin, liquid Dilaudid [...] - 5pm): General Surgery and Bariatric Surgery [phone] Bariatric Surgeons: Jeremy Meléndez Trus [phone] Trolley Operator: [phone] Dietitians: [phone] Outside of regular business hours, including weekends and holidays: Ask for General Surgery resident international sales representative [phone] Please note, this call will be answered [...] Surgery Team in 3 weeks at the [facility] (It Support Engineer 4, [facility]). Future Appointments Date Time Provider Department Center 06/20/2024 12:30 PM Dena Alexander APRN [facility] SURG [facility] 09/19/2024 10:00 AM Dena Alexander APRN [facility] SURG [facility] 12/08/2024 10:30 AM Mercy Amanda MD [facility] WEIGHT [facility] 04/01/2025 2:00 PM Erum Szymanski MD [facility] GASTRO [facility] WOUND CARE You have liquid dressing over [...] twice daily. Please call or send a Clickability message if you do not have a [...] Follow up with primary care provider or computer forensic specialist in 1-2 weeks in order to [...] 03/25/2024 pantoprazole EC (Protonix) [address] tabletIndications:Laguna tt's esophagus without dysplasia,Gastroesophag eal reflux disease [...] Visit from 03/06/2024 in General Surgery at [facility] Office Visit from 02/04/2024 in Weight and Wellness at [facility] Weight 109.9 kg (242 lb 4.8 oz) 1 03/06/2024 1254 113.3 kg (249 lb 12.8 oz) 1 02/04/2024 1626 BMI -- 44.15 1 02/04/2024 1626 Discussion of treatment of obesity and of the [facility] Bariatric Surgery Program: Vianney Cordero is aware that other treatments for obesity are available, ie, dietary, behavior modification, weight loss medications, exercise as well as surgical weight loss methods. The risks and benefits of bariatric surgery, including gastric bypass and sleeve gastrectomy are discussed at every Introduction to the [facility] Bariatric Surgery Program meeting and all Educational [...] loss encouraged - Given a surgery date [facility] Bariatric Surgery Evaluation Follow Up Patient's initial [...] Has not attended a Introduction to the [facility] Bariatric Surgery Program seminar, a comprehensive two hour meeting that provides a program overview, education on bariatric surgeries offered at [facility], risks and benefits, as well as patient expectations and follow up. [facility] Bariatric Surgery Program Educational seminars viewed Bariatric Surgery Program evaluations with RD: Completed today Program start weight: 256 WT at visit #1: Wt & BMI By Encounter Date Flowsheet Row Office Visit from 03/06/2024 in General Surgery at [facility] Office Visit from 02/04/2024 in Weight and Wellness at [facility] Weight 109.9 kg (242 lb 4.8 oz) [...] 3.66) performed by Erum Szymanski MD at [facility] PRO COLONOSCOPY, BIOPSY N/A 09/04/2019 COLONOSCOPY FLEXIBLE, WITH BX (WRVU 3.66) performed by Steve Ji MD at [facility] PRO COLONOSCOPY, DIAGNOSTIC N/A 09/04/2019 COLONOSCOPY, DIAGNOSTIC performed by Steve Ji MD at [facility] PRO COLONOSCOPY, DIAGNOSTIC N/A 06/01/2023 COLONOSCOPY,SCREENING (WRVU 3.26) performed by Steve Ji MD at [facility] PRO COLONOSCOPY, REMV LESN, SNARE N/A 08/21/2018 COLONOSCOPY, POLYPECTOMY, REMOVAL LESION BY SNARE (WRVU 4.67) performed by Erum Szymanski MD at [facility] PRO CYSTO W URETEROSCOPY &/OR PYELOSCOPY, DX Right 06/01/2015 CYSTOURETEROSCOPY, DIAGNOSTIC performed by Darius Nuñez Jr., MD at [facility] OR PRO CYSTOSCOPY, INSERT URETERAL STENT Right 06/01/2015 CYSTO, STENT PLACEMENT performed by Darius Nuñez Jr., MD at [facility] OR PRO LAPAROSCOPY SURG ESOPHAGOGASTRIC FUNDOPLASTY N/A 04/05/2015 LAPAROSCOPIC TYESHA FUNDOPLASTY performed by Valentín Moura MD at [facility] OR PRO PERCUT DILATN RENAL TRACT Right 06/01/2015 PERCUTANEOUS INTRO GUIDE WIRE TO ACCESS RENAL PELVIS,AND OR URETER, W\DILATION performed by Darius Nuñez Jr., MD at [facility] OR PRO PERQ NL/PL LITHOTRIPSY SIMPLE UP TO 2 CM 1 LOCATION Right 06/01/2015 NEPHROLITHOTOMY, ([facility]NL) PERCUTANEOUS performed by Darius Nuñez Jr., MD at [facility] PRO REPAIR PERONEAL TENDONS Right 08/12/2020 PERONEAL TENDON REPAIR (WRVU 7.35) performed by Mani Jefferson MD at [facility] OSC PRO UPPER GI ENDOSCOPY, BIOPSY N/A 01/27/2015 EGD WITH BIOPSY performed by Brandt Barlow MD at [facility] PRO UPPER GI ENDOSCOPY, BIOPSY N/A 02/28/2016 EGD WITH BIOPSY performed by Brandt Barlow MD at [facility] PRO UPPER GI ENDOSCOPY, BIOPSY N/A 09/04/2016 EGD WITH BIOPSY performed by Brandt Barlow MD at [facility] PRO UPPER GI ENDOSCOPY, BIOPSY N/A 09/24/2017 EGD WITH BIOPSY (WRVU 2.49) performed by Brandt Barlow MD at [facility] PRO UPPER GI ENDOSCOPY, BIOPSY N/A 08/21/2018 EGD WITH BIOPSY (WRVU 2.49) performed by Erum Szymanski MD at [facility] PRO UPPER GI ENDOSCOPY, BIOPSY N/A 09/04/2019 UPPER GASTROINTESTINAL ENDOSCOPY,WITH BIOPSY SINGLE OR MULTIPLE (WRVU 2.49) performed by Steve Ji MD at [facility] PRO UPPER GI ENDOSCOPY, BIOPSY N/A 05/24/2021 EGD WITH BIOPSY (WRVU 2.49) performed by Kathy Carnes MD at [facility] PRO UPPER GI ENDOSCOPY, BIOPSY N/A 06/01/2023 EGD WITH BIOPSY (WRVU 2.39) performed by Steve Ji MD at [facility] PRO UPPER GI ENDOSCOPY, DIAGNOSTIC N/A 09/04/2019 EGD, UPPER GI ENDOSCOPY performed by Steve Ji MD at [facility] TONSILLECTOMY Current Medications Current Outpatient Medications: [...] granddaughter (2 yo)lives with her. 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 Lab data: Labs complete and up to date. 2. Psychological evaluation done by Juliette Lu PsyD, Weight and Wellness at [facility] : per Dr. Allen SERRANO WITH RECOMMENDATIONS - Based on the information gathered during this assessment and consultation with pt's psychotherapist, Dr. Metz, there are no psychological contraindications withVianney Cordero proceeding with surgery. Vianney would benefit from the following to assist with preparing for bariatric surgery: Continue engaging in health promoting behaviors Engage in txno contraindication to bariatric surgery from a psychological perspective. Plan for patient to follow up with [facility] Psychology 2 months post op. She denies binge eating, night eating disorder, self-induced vomiting, laxative or diuretic use or excessive exercise to lose weight. 12/20/2023 8:17 AM [facility] Initial Responses PROMIS 10 Physical Scores [...] surgery to be successful. Patient understands the intermediate risks of vitamin deficiencies, internal hernias and ulcers. Patient realizes the need for life long follow up with the bariatric surgery program and understands the importance of the preoperative diet in terms of safety and ability to perform the procedure. Consent was reviewed or signed today. Mental health - Patient was seen in 5D x2 and has discussed with [facility] psychology with plan to see [facility] provider 2 months post op. Eating behaviors and readiness for surgery- Reviewed importance of continuing to work on strategiesto help manage behaviors. Recommend tracking ([employer]) and measuring food. Goals of 60 [...] surrogate would be surrogate decision maker per [place] surrogate decision making law. (Only good for 180 days) Any patient receiving care in [place] must abide by [place] law. The hierarchy for surrogate decision making is: (a) Patient???s spouse or civil union partner unless there is a divorce proceeding, separation agreement, or restraining order limiting that person???s relationship with the patient. (b) Any adult son or daughter of the patient. Barrie Carcamo, child [phone] (c) Either parent of the patient. (d) Any adult brother or sister of the patient. (e) Any adult grandchild of the patient. (f) Any grandparent of the patient. (g) Any adult aunt, uncle, niece, or nephew of the patient. (h) A close friend of the patient. (i) The agent with financial power of bobbin sorter or a conservator appointed in accordance with RSA 464-A. (j) The guardian of the patient???s estate. 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 Resource / Environmental Concerns: Home Address listed as: [address] [place] [phone] Social & Family Supports: All names listed below confirmed with patient as current and correct Extended Emergency Contact Information Primary Emergency Contact: Michael Lomeli Address: [address] [place] [phone] [facility] Relation: Significant Other Secondary Emergency Contact: Jyotsna Cordero Address: [address] [facility] Relation: Mother Substance Use/Abuse listed: Social History [...] N/A ; Prescription Coverage: Yes Preferred Pharmacy: [id number] - [place], [place] - [address] [facility] [address] [facility] [address] [place], [place] - [address] [address] [facility] [address] [place] [address] - [address] [address] [place] [address] [address] [facility] [address] Primary Care Provider listed: WANDY Aguilera [phone] Potential Needs for Transition of Care: none [...] coordination of care as indicated. MARLYN Maxwell, pharmacist in charge of Care Management Pager [phone] * Plan of Care - Feli Wills [...] Damon MD - 05/29/2024 8:[address] [facility] Operative Note Patient Name: Vianney Cordero : [id number] MR#: [id number] Case Date: 05/29/2024 Surgeon: Surgeons and Role: * Ladan Damon MD - Primary * Elly Zuleta MD - Resident - Assisting Preoperative [...] esophagus was identified and encircled with a [place] drain. This was used for further traction to complete the fabiana-esophageal dissection. An upper endoscopy was introducedto verify to location of the esophagus and revealed no evidence of injury. There was a small recurrent hiatal hernia that was then closed with multiple interrupted 0 Surgilon sutures placed behind the esophagus. The fundoplication was completely unwrapped and placed in normal anatomic location. The [place] was then removed. We created a small [...] distal bowel was chosen to create the [id number] jejunojejunostomy. The duodenal, afferent limb was approximated [...] suture in two layers with a 30 Georgian Bougie (blunt-tipped) in place. The Bougie was [...] AM EST Office [place] [address] Mercy Amanda MD [facility] [address] 04/01/2025 2:00 PM EDT Office [place] [address] Erum Szymanski MD [facility] [place] [address] documented as of this encounter Goals Goal Patient Goal Type Associated Problems Recent Progress Patient-Stated? Author continue to track in an celso Lifestyle Asha Chung MD Note: Try goal [...] a priority: - Eggs - Cheese - Lithuanian yogurt / cottage cheese - meat - [...] EDT Morbid Obesity Unlisted Laparoscopic Procedure Esophagus (52551) 05/29/2024 7:40 AM EDT Morbid Obesity Upper GI Endoscopy, Diagnostic (24205) 05/29/2024 7:40 AM EDT Morbid Obesity Lap Gastric Bypass/Elvie-En-Y (11330) 05/29/2024 7:40 AM EDT Morbid Obesity UPPER GI ENDOSCOPY Routine 05/29/2024 6: 08 AM EDT LAPAROSCOPIC TAKEDOWN PREVIOUS TYESHA Routine 05/29/2024 6:08 AM EDT LAPAROSCOPIC GASTROPLASTY, G\SURG Routine 05/29/2024 6:08 AM EDT documented in this encounter Results * (ABNORMAL) Differential, Automated (05/30/2024 4:24 AM EDT) Pathologist [facility] Neutrophil % 76.8 % [facility] Neutrophil Absolute 9.06(H) 1.70 - 6.10 x10(3)/[facility] Lymph % 15.2 % [facility] Lymphocytes Abs 1.8 0.9 - 3.2 x10(3)/[facility] Monocyte % 7.6 % [facility] Monocyte Abs 0.9 0.3 - 0.9 x10(3)/[facility] Eos % 0.0 % [facility] Eosinophils Abs 0.0 0.0 - 0.4 x10(3)/[facility] Basophil % 0.1 % [facility] Baso Absolute 0.0 0.0 - 0.1 x10(3)/[facility] Immature Gran % 0.30 % [facility] Comment: Immature granulocytes(IG's)percentage and absolute count will include metamyelocytes, myelocytes, and promyelocytes. Blood smears from CBCs yielding IG's will be scanned manually for concordance. If this scan disagrees with the automated IG or if promyelocytes are noted, a manual differential will be performed. Immature Gran Absolute 0.04 0.00 - 0.04 x10(3)/[facility] Blood 05/30/2024 4:24 AM EDT 05/30/2024 4:38 AM EDT Narrative Resulting Agency Comment Spec In Lab Elly Zuleta MD HEMATOLOGY ORDERABLE S [facility] [place] [address] * (ABNORMAL) Hemogram (05/30/2024 4:24 AM EDT) Pathologist [facility] White Blood Cell 11.8(H) 4.0 - 9.5 x10(3)/[facility] Red Blood Cell 4.31 4.00 - 5.21 x10(6)/mc L [facility] Hemoglobin 12.9 11.7 - 15.5 g/dL [facility] Hematocrit 38.1 35.7 - 45.8 % [facility] Mean Cell Volume 88.4 82.6 - 94.4 fL [facility] Mean Cell Hemoglobin 29.9 27.1 - 32.0 pg [facility] Mean Cell Hemoglobin Concentration 33.9 31.7 - 35.0 g/dL [facility] Platelet 287 145 - 357 x10(3)/mc L [facility] RDW Standard Deviation 38.7 37.0 - 46.0 fL [facility] RDW coefficient of variation 12.1 11.5 - 14.1 % [facility] Mean Platelet Volume 9.7 7.6 - 12.9 fL [facility] NRBC% auto 0.0 % [facility] NRBC Absolute 0.000 0.000 - 0.000 x10(3)/mc L [facility] Blood 05/30/2024 4:24 AM EDT 05/30/2024 4:38 AM EDT Narrative Resulting Agency Comment Spec In Lab Elly Zuleta MD HEMATOLOGY ORDERABLE S Performing Organization Address City/[facility]/ZIP Co de Phone Number [facility] [place] [address] * Phosphorus (05/30/2024 4:24 AM EDT) Phosphorus 3.7 2.5 - 4.5 mg/dL [facility] Blood 05/30/2024 4:24 AM EDT 05/30/2024 4:38 AM EDT Narrative Resulting Agency Comment Spec In Lab Ladan Damon MD CHEMISTRY ORDERABLE S [facility] [place] [address] * Magnesium (05/30/2024 4:24 AM EDT) Magnesium 0.92 0.69 - 1.07 mmol/L [facility] Blood 05/30/2024 4:24 AM EDT 05/30/2024 4:38 AM EDT Narrative Resulting Agency Comment Spec In Lab Ladan Damon MD CHEMISTRY ORDERABLE S [facility] [place] [address] * (ABNORMAL) Basic Metabolic Panel (non-fasting) (05/30/2024 4:24 AM EDT) Glucose 134 65 - 199 mg/dL [facility] Comment:Diabetes: >=200 mg/d L plus symptoms Blood Urea Nitrogen 11 8 - 18 mg/dL [facility] Creatinine 0.68(L) 0.70 - 1.20 mg/dL [facility] Sodium 138 135 - 145 mmol/L [facility] Potassium 3.9 3.5 - 5.0 mmol/L [facility] Comment: Please note: ??Patients with WBC >100,000 may have falsely elevated Potassium levels. ??For accurate Potassium quantification in these patients send serum separator tube (gold top) for subsequent determinations. ??Contact the Clinical Chemistry Laboratory if there are any questions. Chloride 106 98 - 107 mmol/L [facility] Carbon Dioxide 21(L) 22 - 31 mmol/L [facility] Anion Gap 11 5 - 15 mmol/L [facility] Calcium 9.0 8.5 - 10.5 mg/dL [facility] Est Glomerular Filtration Rate 108 >=60 mL/min/1. 73 m?? [facility] Comment: This patient's estimated GFR [...] MD CHEMISTRY ORDERABLE S Performing Organization Address [facility] Co de Phone Number [facility] [place] [address] * Specimen to Pathology (05/29/2024 10:43 AM EDT) AP Specimen 05/29/2024 10:4 3 AM EDT 05/29/2024 10:43 AM EDT Narrative [facility] - 05/29/2024 10:43 AM EDT Specimen requisition ordered. ??Separate Pathology report to follow Ladan Damon MD PATHOLOGY/CYTOLOGY ORDERABLES Performing Organization Address [facility] Co de Phone Number [facility] [place] [address] * Surgical Pathology Report (05/29/2024 10:42 AM EDT) Final Diagnosis [id number] ? Location: PACU; PA; A The signing pathologist has (i) examined the relevant preparation(s) for the specimen(s) and (ii) rendered or confirmed the diagnosis(es). . ?Surgical Pathology DIAGNOSIS A - Portion of stomach - perm, resection: - Segment of stomach lined with unremarkable fundic gland mucosa. Electronically signed by: ?Ronald RIVAS, Samira Verified: ??06/03/2024 11:58 ??Pathologist Performed at: ??-[facility] Dept. of Pathology, [place] [address] Baby Formula Mixer: Ayad Dee MD, FCAP, ??CLIA Certificate: [id number] SPECIMEN(S) SUBMITTED A - Portion of stomach [...] 1.5 x 1.0 cm diverticulum. 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 Mix's esophagus Gastroesophageal reflux disease with esophagitis, unspecified whether hemorrhage documented in this encounter Admitting Diagnoses Diagnosis S/P bariatric surgery Bariatric surgery status documented in this encounter Administered Medications Inactive Administered Medications - up to 3 most recent administrations Medication Order MAR Action Action Date Dose Rate Site acetaminophen (Ofirmev) (1,000 mg/100 mL) infusion 1,000 mg 1,000 mg, Intravenous, at 400 mL/hr, Administer over 15 Minutes, EVERY 8 HOURS SCHEDULED, 3 doses, First dose on Sun05/29/24 at 2115, Last dose on Sun05/30/24 at 0515, Maximum dose of acetaminophen is 4,000 mg from all sources in 24 hours. When ordered for pain, acetaminophen should be given even when other ordered pain medications are indicated., Routine, Is ketorolac (Toradol) IV contraindicated? No, Can this patient tolerate oral medications or suppositories? No Given 05/30/2024 5:34 AM EDT 1,000 mg 400 mL/hr Given 05/29/2024 8:59 PM EDT 1,000 mg 400 mL/hr acetaminophen (Ofirmev) (1,000 mg/100 mL) infusion 1,000 mg 1,000 mg, Intravenous, at 400 mL/hr, Administer over 15 Minutes, ONCE, 1 dose, On Brittny 05/29/24 at 1300, Maximum dose of acetaminophen is 4,000 mg from all sources in 24 hours. When ordered for pain, acetaminophen should be given even when other ordered pain medications are indicated., Routine, Is ketorolac (Toradol) IV contraindicated? Yes, Can this patient tolerate oral medications or suppositories? No Given 05/29/2024 1:15 PM EDT 1,000 mg 400 mL/hr acetaminophen (Tylenol) tablet 975 mg 975 mg, Oral, ONCE, 1 dose, On Brittny 05/29/24 at 0630, Maximum dose of acetaminophen is 4,000 mg from all sources in 24 hours. When ordered for pain, acetaminophen should be given even when other ordered pain medications are indicated., Day of Surgery (Day of Procedure), Routine Given 05/29/2024 6:45 AM EDT 975 mg celecoxib (CeleBREX) capsule 400 mg 400 mg, Oral, ONCE, 1 dose, On Brittny 05/29/24 at 0630, Day of Surgery (Day of Procedure), Routine Given 05/29/2024 7:07 AM EDT 400 mg enoxaparin (Lovenox) (40 mg/0.4 mL) subcutaneous injection 40 mg 40 mg, Subcutaneous, ONCE, 1 dose, On Brittny 05/29/24 at 0630, To be given in preop area, Day of Surgery (Day of Procedure), Routine Given 05/29/2024 7:07 AM EDT 40 mg Left Lower Quadrant enoxaparin (Lovenox) (40 mg/0.4 mL) subcutaneous injection 40 mg 40 mg, Subcutaneous, EVERY 12 HOURS SCHEDULED (2 times per day), First dose on Brittny 05/29/24 at 2100, Until Discontinued, Routine Given 05/30/2024 8:14 AM EDT 40 mg Given 05/29/2024 8:59 PM EDT 40 mg HYDROmorphone (Dilaudid) (0.2 mg/1 mL) injection syringe 0.2 mg 0.2 mg, Intravenous, EVERY 2 HOURS PRN, Starting on Brittny 05/29/24 at 1329, Until Sun05/30/24 at 1102, Pain, pain >6 refractory to acetaminophen, ketorolac, or PO Dilaudid; or if unable to take PO, For breakthrough pain not responsive to oxyCODONE or if patient is unable to tolerate PO due to nausea., Routine Given 05/30/2024 8:1 4 AM EDT 0.2 mg Given 05/30/2024 1:02 AM EDT 0.2 mg Given 05/29/2024 5:26 PM EDT 0.2 mg HYDROmorphone (Dilaudid) (1 mg/ml) oral liquid 2 mg 2 mg, Oral, EVERY 4 HOURS PRN, Starting on Brittny 05/29/24 at 1329, Until Sun05/30/24 at 1632, Pain, pain >6 not controlled with acetaminophen or ketorolac, Routine Given 05/29/2024 7:59 PM EDT 2 mg Given 05/29/2024 3:44 PM EDT 2 mg HYDROmorphone (Dilaudid) 1 mg/mL oral liquid 1 dose, Starting on Sun05/29/24 at 1956, Until Sun05/29/24 at 1959, Feli Wills (SRT): cabinet override ketorolac (Toradol) (15 mg/mL) injection 15 mg 15 mg, Intravenous, EVERY 8 HOURS, 6 doses, First dose on Brittny 05/29/24 at 1345, Last dose on Sun05/31/24 at 0545, Routine Given 05/30/2024 2:00 PM EDT 15 mg Given 05/30/2024 5:34 AM EDT 15 mg Given 05/29/2024 8:59 PM EDT 15 mg labetaloL (Normodyne) (5 mg/mL) injection solution 10 mg 10 mg, Intravenous, ONCE, 1 dose, On Brittny 05/29/24 at 2030, Routine Given 05/29/2024 8:58 PM EDT 10 mg lactated ringers infusion 50 mL/hr, Intravenous, CONTINUOUS, Starting on Brittny 05/29/24 at 0630, Until Sun05/29/24 at 1455, Day of Surgery (Day of Procedure) Restarted 05/29/2024 10:18 AM EDT Rate/Dose Change 05/29/2024 8:12 AM EDT 50 mL/h r New Bag 05/29/2024 6:48 AM EDT 50 mL/hr 50 mL/hr lactated ringers infusion 1,000 mL, at 125 mL/hr, Intravenous, CONTINUOUS, Starting on Sun05/29/24 at 1345, Until Sun05/30/24 at 1632 New Bag 05/30/2024 5:35 AM EDT 1,000 mLs 125 m L/hr New Bag 05/29/2024 9:03 PM EDT 1,000 mLs 125 mL/hr New Bag 05/29/2024 1:36 PM EDT 1,000 mLs 125 mL/hr ondansetron (pf) (Zofran) (2 mg/mL) injection 4 mg 4 mg, Intravenous, EVERY 8 HOURS SCHEDULED, First dose on Sun05/29/24 at 1415, Until Discontinued, For nausea please [...] Wills RN)1315 (Due - Provider: Suzie Tom [facility]) acetaminophen (Ofirmev) (1,000 mg/100 mL) infusion 1,000 [...] suppositories? No 1315 (Given - Provider: Justine Victoria RN) acetaminophen (Tylenol) tablet 975 mg (COMPLETED) 975 mg, Oral, ONCE, 1 dose, On Brittny 05/29/24 at 0630, Maximum dose of acetaminophen is 4,000 mg from all sources in 24 hours. When ordered for pain, acetaminophen should be given even when other ordered pain medications are indicated., Day of Surgery (Day of Procedure), Routine 06 (Given - Provider: Barb Jimenez, [facility]IM[facility]) celecoxib (CeleBREX) capsule 400 mg (COMPLETED) 400 mg, Oral, ONCE, 1 dose, On Brittny 05/29/24 at 0630, Day of Surgery (Day of Procedure), Routine 07 (Given - Provider: Barb Jimenez, [facility]IM[facility]) enoxaparin (Lovenox) (40 mg/0.4 mL) subcutaneous injection 40 mg (COMPLETED) 40 mg, Subcutaneous, ONCE, 1 dose, On Brittny 05/29/24 at 0630, To be given in preop area, Day of Surgery (Day of Procedure), Routine 706 (Given - Provider: Barb Jimenez, [facility]IM[facility]) enoxaparin (Lovenox) (40 mg/0.4 mL) subcutaneous injection 40 mg 40 mg, Subcutaneous, EVERY 12 HOURS SCHEDULED (2 times per day), First dose on Brittny 05/29/24 at 2100, Until Discontinued, Routine 2058 (Given - Provider: Feli Wills RN) 0814 (Given - Provider: Lorena Mathias, [facility]) ketorolac (Toradol) (15 mg/mL) injection 15 mg 15 mg, Intravenous, EVERY 8 HOURS, 6 doses, First dose on Brittny 05/29/24 at 1345, Last dose on 05/31/24 at 0545, Routine 1331 (Given - Provider: Justine Victoria RN)2058 (Given - Provider: Feli Wills RN) 0534 [...] not effective. 1408 (Given - Provider: Justine Victoria, RN)2200 (Not Given - Provider: Feli Wills [...] 2 minutes. 1545 (Given - Provider: Pedro Craig, [facility]IM[facility]) 0814 (Given - Provider: Lorena Mathias, [facility]IM[facility]) sodium chloride 0.9 % (flush) (BD PosiFlush Normal Saline 0.9) flush 5 mL 5 mL, Intravenous, 2 TIMES DAILY, First dose on Brittny 05/29/24 at 2100, Until Discontinued, Recovery (Recovery-Hospital Unit), Routine 2100 (Given - Provider: Feli Wills RN) 0814 (Given - Provider: Lorena Mathias, NIMCO) Continuous Medication Order 05/28/2024 05/29/2024 05/30/2024 lactated ringers infusion (CANCELED) 50 mL/hr, Intravenous, CONTINUOUS, Starting on Brittny 05/29/24 at 0630, Until Brittny 05/29/24 at 1455, Day of Surgery (Day of Procedure) 0648 (New Bag - Provider: Barb Jimenez, NIMCO)0812 (Rate/Dose Change - Provider: Filiberto Castro MD)1017 [...] Victoria RN)2103 (New Bag - Provider: Feli Wills RN) 0535 (New Bag - Provider: Feli Wills [...] Craig RN)1959 (Given - Provider: Feli Wills RN)2000 (Canceled Entry - Provider: Feli Wills RN - Reason: Entered in Error - Comment: found that it was documented at 1959) lidocaine (Xylocaine) 1% (10 mg/mL) injection 3 [...] choice. Call provider if not effective., Routine 172 (Given - Provider: Pedro Craig RN) sodium [...] Routine documented in this encounter Care Teams Pole Shaver Relationship Specialty Start Date End Date Sonido Cordoba PA [address] [place] [address] PCP - General Family Medicine 07/06/20 documented as of this encounter
--- OUTSIDE RECORDS SUMMARY | 2024-10-16 17:36 | XMS_ITS | Encounter Summary ---
Author Organization [facility] [place] [address] Care Team Providers Care Truck Driver Flatbed Name Role Phone Sonido Cordoba Primary Care Provider [phone] Reason for Visit * Reason Comments Rash Encounter Details Date Type Department Care Team (Late st Contact Info) Description 03/25/2024 9:00 AM EDT Office [place] [address] Omid Penny MD [facility] [place] [address] Bug bite, initial encounter (Primary Dx) Social History Tobacco Use Types Packs/Day Years [...] Sign Reading Time Taken Comments Blood Pressure 141/82 03/25/2024 8:55 AM EDT Pulse 80 03/25/2024 8:55 AM EDT Temperature 36.7 ??C (98.1 ??F) 03/25/2024 8:55 AM ED T Respiratory Rate 22 03/25/2024 8:55 AM EDT Oxygen Saturation - - Inhaled Oxygen Concentration - - Weight - - Height - - Body Mass Index - - documented in this encounter Progress Notes * Omid Penny MD - 03/25/2024 9:00 AM EDT Images from the original note were not included. Chief Complaint Patient presents with Rash Vianney Cordero is a female 48 y.o. who [facility] concern of rash. Reports she was seen by urgent care 3 weeks ago and diagnosed with bug bites and discharged without medications. She notes using Zyrtec in the morning and Benadryl HS. Topical hydrocortisone cream has also been added on by the patient. No fevers and no other complaints other than itching. Has notused any new soaps, perfumes or medications. Has washed clothes and sheets every other day. 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 HENT: Negative for congestion. Eyes: Negative for pain. Respiratory: Negative for cough. No [place] Current Outpatient Medications Medication Sig Phentermine (Lomaira) 8 mg tablet Take 1 tablet by mouth 2 times daily. pantoprazole EC (Protonix) [address] tablet Take 1 tablet by mouth 2 times daily. (30 minutes beforemeals) metFORMIN XR (Glucophage XR) 500 mg ER 24 hr tablet take 4 tablets by mouth daily with dinner cyclobenzaprine (Flexeril) 10 mg Tablet Take 10 mg by mouth 3 times daily as needed for Muscle spasms. acetaminophen (Tylenol) 500 mg Tablet Take 1,000 mg by mouth every 6 hours as needed for Pain. meclizine (ANTIVERT) 12.5 mg Tablet Take 12.5 mg by mouth 3 times daily as needed. Allergies Allergen Reactions Ketchup Rash Lactose Oxycodone Nausea And Vomiting Shellfish Containing Products Ibuprofen Interacts with protonix PCP said she shouldn't take it Exam: BP 141/82 (BP Location (NBP): Left arm, Patient Position: Sitting, BP Cuff Sizes: Large Adult (32-43 cm)) Pulse 80 Temp 36.7 ??C (98.1 ??F) (Oral) Resp 22 No LMP recorded. Physical Exam Constitutional: Appearance: Normal appearance. Skin: Comments: Red: Standby Maureen Guzman in room during skin torso exam consented. Patient has new appearing track patterned bite church/welts sparing intertriginous area of fingers and LE. Has one reported area underneath L arm that is larger than [id number] diameter and about 5x3cm (noted as black fly bi te) Neurological: Mental Status: She is alert. Assessment/Plan Vianney was seen today for rash. Diagnoses and all orders for this visit: Bug bite, initial encounter - permethrin (Elimite) 5 % Cream; Apply topically once for 1 dose. Repeat 1 week later - triamcinolone (Kenalog) 0.1 % Cream; Apply topically 2 times daily. Start 03/26/2024 -suspect this is still a persisting bug bite pattern less likely hives -worker is itching during visit -scabies low on differential but still taking precautions 24 hours out of work after starting treatment (no delta wing on exam and no bites in creases of body) -aggressively treating for bed bugs and other track hetal producing bugs in differential -BP elevated and worker notes medication is causal for weight loss; bariatric surgery is coming up -F/U PRN Should I work today policy and employee and she will remain out of work 24 hours. Omid Penny MD, MPH 03/25/2024 @ 8:56 AM Patient education offered and or provided. Return and/or ER precautions discussed with patient. All or some portion of this note was produced using [employer] voice recognition software technology, and some typographical errors may be present, despite our best efforts with proofreading. documented in this encounter Plan of Treatment Upcoming Encounters Date Type Department Care Team (Late st Contact Info) Description 12/31/2024 10:00 AM EST Office [place] [phone] Mercy Amanda MD [facility] [address] [facility] [address] 04/01/2025 2:00 PM EDT Office Visit Gastroenterology at [facility] [place] [address] Erum Szymanski MD [facility] [place] [address] documented as of this encounter Goals Goal [...] a priority: - Eggs - Cheese - Chilean yogurt / cottage cheese - meat - fish - nuts/seeds - protein shake or bar Start with the protein, can choose to add other foods (would rather have you choose regular bread/ lithuanian muffin, etc. - whole wheat if possible- [...] as of this encounter Visit Diagnoses Diagnosis Bug bite, initial encounter- Primary documented in this encounter Care Teams Truck Driver Flatbed Relationship Specialty Start Date End Date Sonido Cordoba PA [address] [place] [address] PCP - General Family Medicine 07/06/20 documented as of this encounter
--- OUTSIDE RECORDS SUMMARY | 2024-10-16 17:37 | XMS_ITS | Encounter Summary ---
[place] [address] Care Team Providers Care Coding Support Specialist Name Role Phone Sonido Cordoba Primary Care Provider [phone] Encounter Details Date Type Department Care Team (Latest Contact Info) Description 12/20/2023 Travel Social History Tobacco Use Types Packs/Day [...] AM EST Office [place] [phone] Mercy Amanda MD [facility] [address] [facility] [address] 04/01/2025 2:00 PM EDT Office Visit Gastroenterology at [facility] [place] [address] Erum Szymanski MD [facility] [place] [address] documented as of this encounter Goals Goal [...] a priority: - Eggs - Cheese - Romanian yogurt / cottage cheese - meat - fish - nuts/seeds - protein shake or bar Start with the protein, can choose to add other foods (would rather have you choose regular bread/ mohawk muffin, etc. - whole wheat if possible- [...] on filedocumented in this encounter Care Teams Coding Support Specialist Relationship Specialty Start Date End Date Sonido Cordoba PA [address] [place] [address] PCP - General Family Medicine 07/06/20 documented as of this encounter
--- OUTSIDE RECORDS SUMMARY | 2024-10-16 17:37 | XMS_ITS | Encounter Summary ---
Author Organization [facility] [place] [address] Care Team Providers Care Water Team Leader Name Role Phone Sonido Cordoba Primary Care Provider [phone]- [phone] Encounter Details Date Type Department Care Team (Late st Contact Info) Description 12/20/2023 8:00 AM EST Office [place] [address] Dena Alexander, PROSTHODONTIST [facility] [place] [address] Belinda Heath, RD [facility] [place] [address] History of Tyesha fundoplication; BMI 45.0-49.9, adult; Encounter for pre-bariatric surgery counseling and education [...] Sign Reading Time Taken Comments Blood Pressure 154/83 12/20/2023 8:08 AM EST Pulse 91 12/20/2023 8:08 AM EST Temperature 36.3 ??C (97.3 ??F) 12/20/2023 8:08 AM ES T Respiratory Rate - - Oxygen Saturation 98% 12/20/2023 8:08 AM EST Inhaled Oxygen Concentration - - Weight 116.2 kg (256 lb 1.6 oz) 12/20/2023 8:08 AM EST Height 160.2 cm (5' 3.07) 12/20/2023 8:08 AM ES T Body Mass Index 45.26 12/20/2023 8:08 AM EST documented in this encounter Progress Notes * Dena Alexander, PROSTHODONTIST - 12/20/2023 8:00 AM EST Images from the original note were not included. [facility] Bariatric Surgery Evaluation Reason for consultation: Vianney is a 48 y.o. female referred by WANDY Aguilera for consultation for consideration of surgical treatment of obesity. Her preferred procedure: Barbi-en-Y gastric bypass due to failed tyesha and GERD/Mix's Prior bariatric surgery evaluations: None BARIATRIC SURGERY PROGRAM PATHWAY Review of progress with the requirements of the Bariatric Surgery Program: Education: She [x] has [] Has not attended a Introduction to the [facility] Bariatric Surgery Program seminar, a comprehensive two hour meeting that provides a program overview, education on bariatric surgeries offered at [facility], risks and benefits, as well as patient expectations and follow up. [facility] Bariatric Surgery Program Educational seminars viewed Bariatric Surgery Program evaluations with RD: Completed today Program start weight: 256 WT at visit #1: Wt & BMI By Encounter Date Flowsheet Row Office Visit from 12/10/2023 in Weight and Wellness at [facility] TH Visit (TeleHealth) from 10/08/2023 in Weight and Wellness at [facility] Weight 116.4 kg (256 lb 9.6 oz) 1 12/10/2023 1206 111.6 kg (246 lb) [Pt reported] 1 10/08/2023 0957 BMI 45.35 1 12/10/2023 1206 -- Gallbladder status: [] intact, not studied. [x] [...] make it up to the top of [facility]. Patient has a hx tyesha fundoplication, GERD and mix's. She is currently on daily PPI, reports her GERD sx are stable. Patient Active Problem List Diagnosis Mix's esophagus [...] [] HTN [] GERD [x] Hx of mix's , last EGD 05/2023, on PPI Hyperlipidemia [x] [...] both mother and baby. Patient verbalizes understanding. MBSAQ Preoperative Risk Assessment (negative if left blank): [...] use for chronic condition [] Therapeutic anticoagulation [] Previous obesity surgery/foregut surgery Past Surgical History: Procedure Laterality Date CHOLECYSTECTOMY DILATION AND CURETTAGE OF UTERUS 11/05/1994 PRO COLONOSCOPY, BIOPSY N/A 08/21/2018 COLONOSCOPY FLEXIBLE, WITH BX (WRVU 3.66) performed by Erum Szymanski MD at [facility] ENDOSCOPY PRO COLONOSCOPY, BIOPSY N/A 09/04/2019 COLONOSCOPY FLEXIBLE, WITH BX (WRVU 3.66) performed by Steve Ji MD at [facility] ENDOSCOPY PRO COLONOSCOPY, DIAGNOSTIC N/A 09/04/2019 COLONOSCOPY, DIAGNOSTIC performed by Steve Ji MD at [facility] ENDOSCOPY PRO COLONOSCOPY, DIAGNOSTIC N/A 06/01/2023 COLONOSCOPY,SCREENING (WRVU 3.26) performed by Steve Ji MD at [facility] ENDOSCOPY PRO COLONOSCOPY, REMV LESN, SNARE N/A 08/21/2018 COLONOSCOPY, POLYPECTOMY, REMOVAL LESION BY SNARE (WRVU 4.67) performed by Erum Szymanski MD at [facility] ENDOSCOPY PRO CYSTO W URETEROSCOPY &/OR PYELOSCOPY, DX Right 06/01/2015 CYSTOURETEROSCOPY, DIAGNOSTIC performed by Darius Nuñez Jr., MD at [facility] MAIN OR PRO CYSTOSCOPY, INSERT URETERAL STENT Right 06/01/2015 CYSTO, STENT PLACEMENT performed by Darius Nuñez Jr., MD at [facility] MAIN OR PRO LAPAROSCOPY SURG ESOPHAGOGASTRIC FUNDOPLASTY N/A 04/05/2015 LAPAROSCOPIC TYESHA FUNDOPLASTY performed by Valentín Moura MD at [facility] MAIN OR PRO PERCUT DILATN RENAL TRACT Right 06/01/2015 PERCUTANEOUS INTRO GUIDE WIRE TO ACCESS RENAL PELVIS,AND OR URETER, W\DILATION performed by Darius Nuñez Jr., MD at [facility] MAIN OR PRO PERQ NL/PL LITHOTRIPSY SIMPLE UP TO 2 CM 1 LOCATION Right 06/01/2015 NEPHROLITHOTOMY, ([facility]) PERCUTANEOUS performed by Darius Nuñez Jr., MD at [facility] MAIN OR PRO REPAIR PERONEAL TENDONS Right 08/12/2020 PERONEAL TENDON REPAIR (WRVU 7.35) performed by Mani Jefferson MD at [facility] OSC PRO UPPER GI ENDOSCOPY, BIOPSY N/A 01/27/2015 EGD WITH BIOPSY performed by Brandt Barlow MD at [facility] ENDOSCOPY PRO UPPER GI ENDOSCOPY, BIOPSY N/A 02/28/2016 EGD WITH BIOPSY performed by Brandt Barlow MD at [facility] ENDOSCOPY PRO UPPER GI ENDOSCOPY, BIOPSY N/A 09/04/2016 EGD WITH BIOPSY performed by Brandt Barlow MD at [facility] ENDOSCOPY PRO UPPER GI ENDOSCOPY, BIOPSY N/A 09/24/2017 EGD WITH BIOPSY (WRVU 2.49) performed by Brandt Barlow MD at [facility] ENDOSCOPY PRO UPPER GI ENDOSCOPY, BIOPSY N/A 08/21/2018 EGD WITH BIOPSY (WRVU 2.49) performed by Erum Szymanski MD at [facility] ENDOSCOPY PRO UPPER GI ENDOSCOPY, BIOPSY N/A 09/04/2019 UPPER GASTROINTESTINAL ENDOSCOPY,WITH BIOPSY SINGLE OR MULTIPLE (WRVU 2.49) performed by Steve Ji MD at [facility] ENDOSCOPY PRO UPPER GI ENDOSCOPY, BIOPSY N/A 05/24/2021 EGD WITH BIOPSY (WRVU 2.49) performed by Kathy Carnes MD at [facility] ENDOSCOPY PRO UPPER GI ENDOSCOPY, BIOPSY N/A 06/01/2023 EGD WITH BIOPSY (WRVU 2.39) performed by Steve Ji MD at [facility] ENDOSCOPY PRO UPPER GI ENDOSCOPY, DIAGNOSTIC N/A 09/04/2019 EGD, UPPER GI ENDOSCOPY performed by Steve Ji MD at [facility] ENDOSCOPY TONSILLECTOMY Current Outpatient Medications: Phentermine (Lomaira) [...] Types: Cigarettes Quit date: 01/25/1997 Years since quittin.9 Smokeless tobacco: Never Vaping Use Vaping Use: [...] granddaughter (2 yo)lives with her. 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 Lab data: Labs complete and up to date. 2. Psychological evaluation done by Juliette Lu PsyD, Weight and Wellness at [facility] : per Dr. Allen SERRANO WITH RECOMMENDATIONS [...] to bariatric surgery from a psychological perspective. Pt with hx anxiety/depression and trauma. She has been in counseling, but has not connected with her psychologist since her appt with [facility]. She feels her mood is good. She denies binge eating, night eating disorder, self-induced vomiting, laxative or diuretic use or excessive exercise to lose weight. 12/20/2023 8:17 AM [facility] Initial Responses PROMIS 10 Physical [...] [] early satiety [] abdominal pain [x] hernia [] prior CT scan abdomen [] nausea/vomiting [] blood in stool [] [...] condition Psychiatric [x] depression [x] anxiety/panic attacks [] history of suicide attempt [] addiction [] psychiatric or rehab admissions Visit date Wt (lbs) BMI HT Highest WT 256 - Pre-op 12/20/23 256 45.5 5'3 Post-op WT BMI %EBW lost Physical exam: Vital signs: BP 154/83 (BP Location (NBP): Right arm, Patient Position: Sitting, BP Cuff Sizes: Large Adult (32-43 cm)) Pulse 91 Temp 36.3 ??C (97.3 ??F) (Temporal) Ht 160.2 cm (5' 3.07) Wt 116.2 kg (256 lb 1.6 oz) LMP (LMP Unknown) SpO2 98% BMI 45.26 kg/m?? Neuro: Non-focal. Psych: conversant, alert and [...] She is interested in a Barbi-en-Y gastric bypass. We discussed the procedures of laparoscopic barbi en y gastric bypass. We discussed the benefits of surgery . We discussed the possibility of poor weight loss and the need to make sustained dietary changes in order for the surgery to be successful. Patient understands the assisted risks of vitamin deficiencies, internal hernias and ulcers. Patient realizes the need for life long follow up with the bariatric surgery program and understands the importance of the preoperative diet in terms of safety and ability to perform the procedure. Consent was NOT reviewed or signed today. Per psychological evaluation recommendations- Reconnect with psychologist. We discussed the need eleonora psychologically ready for dietary and lifestyle changes after surgery. Regular counseling is highly recommended to help cope with changes. 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 Discussed eating behaviors and readiness for surgery. Reviewed importance of continuing to work on strategies to help manage behaviors. Discussed the importance of making the recommended changes the RD suggested before surgery to ensure that they are sustainable for her after surgery. Discussed that waiting until after surgery to institute theses changes will make post op course more difficult. Continued on going counseling for support/therapy has been recommended. S/p Tyesha fundoplication: Swallow study ordered per Dr. Damon. Will arrange follow up visit with Dr. Damon after her swallowing study to review results and discuss surgery, review and sign consent. Will also plan for RD follow up on the day pt meets with Dr. Damon to ensure dietary readiness for surgery Pending: Preoperative Group Class CBC and CMP within 6 months of surgery, per MBSAQIP accredited bariatric center guidelines. (Up to date as of today, may need to be updated if change in surgery date). Ongoing weight loss encouraged She has had [...] care coordination, ordering labs & completing documentation. Dena Alexander APRN * Belinda Heath RD - 12/20/2023 8:00 AM EST Bariatric Surgery Program Initial Nutrition Assessment Vianney Cordero is a 48 y.o. female being seen today for a preoperative evaluation in anticipation of metabolic-bariatric surgery. SUBJECTIVE: Interest in bariatric surgery: Initially wanted to lose weight on her own as she had done it before. Decided she needed help with maintaining weight loss- medications have not been as effective as she hoped. 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 3 children. Pt lives with 2 sons, granddaughter (pt has guardianship). Has SO, does not live with him. Social support: SO, children, mom, sister in [place] Hobbies: walking, hiking, fishing (allergy so can't touch the fish), spending time w family and friends Medical Hx: Class III obesity, Mix's esophagus, anxiety, FLD, hx Tyesha Overweight/obese since age: started at ~age 36- around the time she left her ex- ; didn't eatduring the stress of marriage so when she left started to eat more regularly. Previously was only eating once per day. Since then her weight has yo-yoed. Highest weight: 256# at age 48 Lowest weight: 192# at age 44 Dieting History: Type of Diet Wt Lost (lbs.) Wt. Regain (lbs.) Dates Duration Comments [facility]- Mercy Grimes MD, Priti Skinner RD and Sunita Bills RD 04/21/22, 07/05/22, 09/08/22, 11/15/22, 01/19/23, 02/26/23, 03/07/23, 04/11/23, 05/16/23, 07/25/23, 10/08/23, 12/10/23 walking 2020 Lost down to 192# walking 10 miles per day Regular diet* - no between meal snacks 10 01/09/22 3 months Cut down on carbs 1 04/21/22 3 months Started walking weather permitting Cut down on carbs 8 06/25/22 2 months Cut down on carbs 9 09/25/22 3 months Regular diet cut down on portions 3 01/19/22 4 months Cut down on soda. Cut down on portion sizes Regular diet more water 2 07/25/23 6 months More salad for lunches. Increased walking Regular diet 24 12/10/23 5 months *regular diet: portion sizes, 3 meals with water, increase walking, cut out soda, cut down carbs. History of medications to lose weight:currently Lomaira twice daily and metformin 4 pills at dinner. Gummy for weight loss at one point. It Works- it didn't work Preop plan per Dr. Grimes: Hold Metformin 1 day before. Do NOT restart after surgery. Phentermine: 3 weeks before surgery go to 1 tab in the morning.. 2 weeks before surgery go to 1 tab every other morning. 1 week before surgery off completely. - Do not restart after surgery. History of disordered eating behaviors such as binge eating/self-induced vomiting/laxative abuse/night eating syndrome: Denies History of excessive exercise to lose weight: no. Contributing Factors to Obesity: [x] Family history of obesity [x] Medications- prednisone (August 2023 for about 1.5 months) [] [] Hx Binge Eating / Eating disorder [] Large portion sizes [] Fast eater [] Nighttime eating [] Emotional eating [] Mindless eating [] Choosing high calorie foods [] Preference for concentrated sweets [] Snacking [] Grazing [] Meal skipping [] Physical Inactivity Food Allergies/Intolerances/Preference: [] Gluten [] Lactose [x] Fish/seafood [x] ketchup Diarrhea/Constipation: None. Recent Changes in Dietary/Lifestyle Habits: [x] Smaller portions [] 3 meals per day [x] Eating slower [] More fruits, vegetables, and whole grains [x] Having protein at all meals, eating protein first [] Decreasing carbohydrates [] Lower calorie cooking methods (baking, broiling, grilling, etc.) [x] Nutrition Counseling with MD and RD [] No longer buying tempting foods from grocery store [x] Not drinking with meals, sipping fluids throughout the day [x] Cutting out soda- stopped diet soda a couple months ago [] Cutting out concentrated sweets/ decreasing added sugar [] Increased physical activity Current Intake: Tracking Intake: Not currently tracking- was tracking off/on but mika is no longer on her phone Who does meal planning, shopping and cooking at home? Vianney. When at her BF's house he cooks Economic and/or time limitations: None Dental Concerns: None. Reported intake: Has [employer] Instant Breakfast Breakfast Eggs (2), toast w/PB Snack Lunch Salad w let, claudia, vinaigrette Snack Supper Chicken baked with potatoes and green beans Snacks Beverages: water all day; 1 cup juice daily- [place] ETOH: None. Cut out alcohol about 3 weeks ago. Was drinking 1 glass wine per week. No hx misuse Tobacco: Distant past (>3 years). former smoker, quit in 1996 How often meals eaten away from home: 1-2 x month.. Supplements/Vitamins: gummy multivitamin daily Physical activity: walking at work; walking dogs. Psychological Consultation: Green light. Evaluation performed by Nuria Jaffe PhD on 06/22/23 and Juliette Lu PsyD on 09/14/23, 11/23/23 Hx abuse - yes, hx IPV; Hx Hospitalizations- none f/u appt with Dr. Metz- missed last appt. She check in and waited 15 minutes. No one in the waiting room so she thought she missed her appointment and left. Has not rescheduled due to challenges coordinating with her work schedule. Vision at 2 years post-op: improved quality of life, easier time climbing [place], has a lot of trails she'd like to get to that are step and cannot get up now. Weight outcome: would like to get back to 150 but realizes that is not realistic. 200 or a little under Challenges/barriers to success: None. OBJECTIVE: Weight History: Date Weight (lbs) HT BMI Comments 12/20/23 256# Highest Weight 11/15/22 233# 63 41.3 Initial program weight 12/20/23 256# 45.3 1st pre-op visit [facility] % Surgery 3 weeks post-op 4 months post-op [place] Body Weight (based on BMI of 25): 141 30-70% Excess Weight Loss: 176-222#; 50% Excess Weight Loss: 199# SUMMARY: Vianney Cordero has been referred for nutrition evaluation and diet instruction in anticipation of bariatric surgery. 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 Predicted weight loss with surgery is an estimated 30-70% of excess body weight. Discussed weight loss goals. Emphasized importance of nonscale victories and overall improvement in health. Advised ptthat bariatric surgery is a tool, not a solution; and ultimately, weight loss will be achieved through proper eating and exercise habits. She showed good understanding of the concepts discussed. Discussed No Weight Gain Policy. Pt attributed some of her weight gain to steroid using in August.Pt has experience 10# weight gain since October; she cannot identify and changes that occurred that lead to this change. Pt missed her last psychiatry appointment. Stressed importance of rescheduling the appointment and following through with the treatment plan. Advised pt that some patients feel more vulnerable with weight loss which can lead to poor outcomes if proper support/tools are not in place. Rec no more than 4 oz juice per day and to cut juice with water. Advised pt to look for [employer] Breakfast Essentials Light Start as regular carnation has too much sugar. NUTRITION DIAGNOSIS: Obesity related to metabolic, genetic, and environmental factors as evidenced by BMI of 45.3. PLAN: Patient to practice post-op GB diet recommendations prior to surgery to support post-op success andlong-term weight loss: Eat 3 meals daily, spaced about 4-6 hours apart. Have protein with all meals. Take your time when eating meals, at least 20-30 minutes per meal. Avoid soda and limit caffeine consumption. Stop caffeine 2 weeks prior to surgery. Sip 48-64 oz hydrating fluid daily between meals and avoid drinking with meals. Cut juice with water. No more than 4 ounces per day Use smaller plates/bowls/utensils for meals and eat smaller portions. Plan meals 1 wk in advance and shop with a list. Restart to keep a food journal particularly of frequently eaten food/meals. Create a meal plan for the Stage 2 diet - goal is 60-80 grams protein per day. Have a few brands ofprotein drinks you like. Encouraged exercise as tolerated. We reviewed the No Weight Gain Policy. Will check with Dr. Damon re: need for weight loss priorto proceeding. Patient to attend a pre-op educational class prior to surgery. Read Handbook before coming to the class. Information given to patient: 1. [facility] Bariatric Surgery Education Handbook, a 102 page document (revision February 2012) which contains extensive information regarding pre and post- operative nutrition guidelines including: preop diet, Diet stages I-IV, hydration recommendations, protein guidelines, dumping syndrome, food intoleranc es, vitamin and mineral supplementation as well as a list of books and online bariatric resources. * Chrystal Damon MD - 12/20/2023 8:00 AM EST Pt not seen by Dr. Damon today. Will plan to schedule follow up with Dr. Damon following her swallow study to review results, and discuss surgery/sign consent. documented in this encounter Plan of Treatment Upcoming Encounters Date Type Department Care Team (Late st Contact Info) Description 12/31/2024 10:00 AM EST Office [place] [address] Mercy Amanda MD [facility] [address] 04/01/2025 2:00 PM EDT Office [place] [phone] Erum Szymanski MD [facility] [place] [address] documented as of this encounter Goals Goal [...] a priority: - Eggs - Cheese - Guatemalan yogurt / cottage cheese - meat - fish - nuts/seeds - protein shake or bar Start with the protein, can choose to add other foods (would rather have you choose regular bread/ tajik muffin, etc. - whole wheat if possible- [...] documented as of this encounter Results * XR Fluoro Esophagram (Double Contrast) (02/25/2024 8:40 AM EDT) WORKSTATION ID [id number] RAD Anatomical Region Laterality Modality N/A Radio Fluoroscop y Impressions 02/25/2024 10:51 AM EDT 1. ??Intact Tyesha fundoplication. 2. ??Small sliding-type hiatal hernia. 3. [...] who have questions please contact the health dialysis patient care technician that requested your imaging first. ? Narrative 02/25/2024 10:51 AM EDT EXAMINATION: XR FLUORO ESOPHAGRAM (DOUBLE CONTRAST) CLINICAL HISTORY: please assess for hiatal hernia. ??S/p Tyesha Z98.890, Other specified postprocedural states TECHNIQUE: Double [...] HISTORY: please assess for hiatal hernia. S/p Tyesha Z98.890, Other specified postprocedural states TECHNIQUE: Double [...] sliding hiatal hernia, Tyesha wrap is variably abovethe diaphragm with Valsalva. Mild esophageal dysmotility characterized by bolus splitting and to andfro motion. No gastroesophageal reflux was elicited with provocative maneuvers. A 13 mm barium tablet was swallowed without issue and passed promptly intothe stomach. IMPRESSION 1. Intact Tyesha fundoplication. 2. [...] patients who have questions please contactthe health dialysis patient care technician that requested your imaging first. Chrystal Damon MD IMG FLUORO ORDERABL ES documented in this encounter Visit Diagnoses Diagnosis History of Tyesha fundoplication BMI 45.0-49.9, adult Body Mass Index 45.0-49.9, adult Encounter for pre-bariatric surgery counseling and education History of Tyesha fundoplication documented in this encounter Care Teams Water Team Leader Relationship Specialty Start Date End Date Sonido Cordoba [place] [address] [place] [address] PCP - General Family Medicine 07/06/20 documented as of this encounter
--- OUTSIDE RECORDS SUMMARY | 2024-10-16 17:37 | XMS_ITS | Encounter Summary ---
[place] [address] Care Team Providers Care Chief Privacy Officer Name Role Phone Sonido Cordoba Primary Care Provider +1- [phone] Reason for Visit * Reason Onset Date Comments Appointment 08/14/2023 Encounter Details Date Type Department Care Team (Late st Contact Info) Description 08/14/2023 Telephone [place] [address] Viviana Mcneal Appointment Social History Tobacco Use Types Packs/Day [...] encounter Miscellaneous Notes * Telephone Encounter - Viviana Mcneal - 08/14/2023 2:16 PM EDT LVM and sent letter via [email or web address] portal about scheduling appointment(s), please schedule from recall(s) for [facility] Wellness. Please offer first available and place appointment on wait list. documented in this encounter Plan of Treatment Upcoming Encounters Date Type Department Care Team (Late st Contact Info) Description 12/31/2024 10:00 AM EST Office [place] [address] Mercy Amanda MD [facility] [address] [place] [address] 04/01/2025 2:00 PM EDT Office [place] [address] Erum Szymanski MD [facility] [place] [address] documented as of this encounter Goals Goal [...] a priority: - Eggs - Cheese - Vietnamese yogurt / cottage cheese - meat - fish - nuts/seeds - protein shake or bar Start with the protein, can choose to add other foods (would rather have you choose regular bread/ tunisian muffin, etc. - whole wheat if possible- [...] on filedocumented in this encounter Care Teams Chief Privacy Officer Relationship Specialty Start Date End Date Sonido Cordoba PA [address] [place] [address] PCP - General Family Medicine 07/06/20 documented as of this encounter
--- OUTSIDE RECORDS SUMMARY | 2024-10-16 17:37 | XMS_ITS | Encounter Summary ---
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; Gastroesophageal reflux disease with esophagitis, unspecified whether hemorrhage Social History Tobacco Use Types Packs/Day Years [...] AM EST Office Visit Weight Center at [facility] [place] [address] Mercy Amanda MD [facility] [address] 04/01/2025 2:00 PM EDT Office [place] [address] Erum Szymanski MD [facility] [place] [address] documented as of this encounter Goals Goal Patient Goal Type Associated Problems Recent Progress Patient-Stated? Author continue to track in an mika Lifestyle Asha Chnug MD Note: Try goal of 1500 Collecting [...] a priority: - Eggs - Cheese - Zimbabwean yogurt / cottage cheese - meat - fish - nuts/seeds - protein shake or bar Start with the protein, can choose to add other foods (would rather have you choose regular bread/ albanian muffin, etc. 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
--- OUTSIDE RECORDS SUMMARY | 2024-10-16 17:37 | XMS_ITS | Encounter Summary ---
[place] [address] Care Team Providers Care Hydro Operator Name Role Phone Sonido Cordoba Primary Care Provider +1- [phone] Encounter Details Date Type Department Care Team (Latest Contact Info) Description 12/10/2023 Travel Social History Tobacco Use Types Packs/Day [...] AM EST Office [place] [phone] Mercy Amanda MD [facility] [address] [facility] [address] 04/01/2025 2:00 PM EDT Office Visit Gastroenterology at [facility] [place] [address] Erum Szymanski MD [facility] DR [place] [address] documented as of this encounter Goals Goal [...] (would rather have you choose regular bread/ armenian muffin, etc. - whole wheat if possible- [...] on filedocumented in this encounter Care Teams Hydro Operator Relationship Specialty Start Date End Date Sonido Cordoba PA [address] [place] [address] PCP - General Family Medicine 07/06/20 documented as of this encounter
--- OUTSIDE RECORDS SUMMARY | 2024-10-16 17:37 | XMS_ITS | Encounter Summary ---
Author Organization [facility] [place] [address] Care Team Providers Care Final Cleaner Name Role Phone Sonido Cordoba Primary Care Provider +1- [phone] Encounter Details Date Type Department Care Team (Late st Contact Info) Description 12/10/2023 Telephone Psychiatry [place] [address] Chrystal Metz, PhD [facility] [place] [address] Social History Tobacco Use Types Packs/Day Years [...] AM EST Office [place] [address] Mercy Amanda MD [facility] DR [facility] [address] 04/01/2025 2:00 PM EDT Office Visit Gastroenterology at [facility] [place] [address] Erum Szymanski MD [facility] [place] [address] documented as of this encounter Goals Goal [...] a priority: - Eggs - Cheese - Kiswahili yogurt / cottage cheese - meat - fish - nuts/seeds - protein shake or bar Start with the protein, can choose to add other foods (would rather have you choose regular bread/ sierra leonean muffin, etc. - whole wheat if possible- [...] on filedocumented in this encounter Care Teams Final Cleaner Relationship Specialty Start Date End Date Sonido Cordoba PA [address] [place] [address] PCP - General Family Medicine 07/06/20 documented as of this encounter
--- OUTSIDE RECORDS SUMMARY | 2024-10-16 17:37 | XMS_ITS | Encounter Summary ---
Author Organization [facility] [place] [address] Care Team Providers Care Chair Frame Builder Name Role Phone Sonido Cordoba Primary Care Provider +1- [phone] Reason for Visit * Reason Onset Date Comments Medication Refill 08/29/2023 Encounter Details Date Type Department Care Team (Late st Contact Info) Description 08/29/2023 [place] [address] Mercy Amanda MD [facility] [address] [facility] [address] Class 3 severe obesity with serious comorbidity [...] AM EST Office [place] [address] Mercy Amanda MD [facility] [address] [facility] [address] 04/01/2025 2:00 PM EDT Office [place] [address] Erum Szymanski MD [facility] [place] [address] documented as of this encounter Goals Goal [...] a priority: - Eggs - Cheese - Yi yogurt / cottage cheese - meat - [...] type documented in this encounter Care Teams Chair Frame Builder Relationship Specialty Start Date End Date Sonido Cordoba PA [address] [place] [address] PCP - General Family Medicine 07/06/20 documented as of this encounter
--- OUTSIDE RECORDS SUMMARY | 2024-10-16 17:37 | XMS_ITS | Encounter Summary ---
[place] [address] Care Team Providers Care Apparel Manager Name Role Phone Sonido Cordoba Primary Care Provider +1- [phone] Reason for Visit * Reason Onset Date Comments Bumped Appointment 07/23/2023 Encounter Details Date Type Department Care Team (Late st Contact Info) Description 07/23/2023 [place]phone [place] [address] Viviana Mcneal Bumped Appointment Social History Tobacco Use Types [...] * Telephone Encounter - Viviana Mcneal - 07/23/2023 1:59 PM EDT Left message for patient to reschedule 07/25/2023 bumped/cancelled appointment with Dr. Mercy Amanda, due to a schedule change. Please reschedule off cancelled appointment. Per provider EH ok to use 5pm slot on 07/25 or an 8am time. Please connect caller with Viviana for scheduling [phone] documented in this encounter Plan of Treatment Upcoming Encounters Date Type Department Care Team (Late st Contact Info) Description 12/31/2024 10:00 AM EST Office [place] [address] Mercy Amanda MD [facility] [address] [facility] [address] 04/01/2025 2:00 PM EDT Office [place] [phone] Erum Szymanski MD [facility] [place] [address] documented as of this encounter Goals Goal [...] a priority: - Eggs - Cheese - Guinean yogurt / cottage cheese - meat - fish - nuts/seeds - protein shake or bar Start with the protein, can choose to add other foods (would rather have you choose regular bread/ french muffin, etc. - whole wheat if possible- [...] on filedocumented in this encounter Care Teams Apparel Manager Relationship Specialty Start Date End Date Sonido Cordoba PA [address] [place] [address] PCP - General Family Medicine 07/06/20 documented as of this encounter
--- OUTSIDE RECORDS SUMMARY | 2024-10-16 17:37 | XMS_ITS | Encounter Summary ---
[place] [address] Care Team Providers Care Chemical Dependency Nurse Name Role Phone Sonido Cordoba Primary Care Provider +1- [phone] Encounter Details Date Type Department Care Team (Late st Contact Info) Description 10/04/2023 Telephone [place] [phone] [facility] [place] [address] Social History Tobacco Use Types Packs/Day Years [...] encounter Miscellaneous Notes * Telephone Encounter - Juliette Lu PsyD - 10/04/2023 1:13 PM EST Provider called pt earlier today at 10 AM, 10/04, as planned, to discuss [facility] [place]. Pt answered, and stated she would prefer to talk today between 1-2:30 PM. Provider called pt at approx 1:12 PM to discuss [facility]/ psychotherapy referral and engagement process. Pt did not answer and provider was unable to LVM. Pt is encouraged to call [facility] Psychiatry to discuss tx process. Additionally, per this provider's 09/14/23 [facility] visit, pt is recommended to attend a f/u Bariatric Surgery appointment with this provider (Juliette Lu PsyD). documented in this encounter Plan of Treatment Upcoming Encounters Date Type Department Care Team (Late st Contact Info) Description 12/31/2024 10:00 AM EST [place] [address] [facility] [address] [facility] [address] 04/01/2025 2:00 PM EDT Office [place] [address] [facility] [place] [address] documented as of this encounter Goals Goal [...] a priority: - Eggs - Cheese - Bengali yogurt / cottage cheese - meat - fish - nuts/seeds - protein shake or bar Start with the protein, can choose to add other foods (would rather have you choose regular bread/ cameroonian muffin, etc. - whole wheat if possible- [...] on filedocumented in this encounter Care Teams Chemical Dependency Nurse Relationship Specialty Start Date End Date Sonido Cordoba PA [address] [place] [address] PCP - General Family Medicine 07/06/20 documented as of this encounter
--- OUTSIDE RECORDS SUMMARY | 2024-10-16 17:37 | XMS_ITS | Encounter Summary ---
Author Organization [facility] [place] [address] Care Team Providers Care Jet Worker Name Role Phone Sonido Cordoba Primary Care Provider +1- [phone] Encounter Details Date Type Department Care Team (Late st Contact Info) Description 07/25/2023 5:00 PM EDT Office [place] [phone] Mercy Amanda MD [facility] [place], [place] [phone] Class 3 severe obesity with serious comorbidity and body mass index (BMI) of 40.0 to 44.9 in adult, unspecified obesity type; Post-traumatic stress disorder, unspecified; Insulin resistance; Elevated ferritin; Elevated LDL cholesterol level; Vitamin D deficiency Social History Tobacco Use Types Packs/Day Years [...] Sign Reading Time Taken Comments Blood Pressure 148/99 07/25/2023 4:57 PM EDT Pulse 83 07/25/2023 4:57 PM EDT Temperature - - Respiratory Rate - - Oxygen Saturation - - Inhaled Oxygen Concentration - - Weight 110.9 kg (244 lb 6.4 oz) 07/25/2023 4:57 PM EDT Height 160.2 cm (5' 3.07) 07/25/2023 4:57 PM ED T Body Mass Index 43.2 07/25/2023 4:57 PM EDT documented in this encounter Progress Notes * Mercy Amanda MD - 07/25/2023 5:00 PM EDTSummary: 10th visit with MD Images from the original note were not included. [facility] [place] Patient Name: Vianney Cordero Date of : 1975 Age: 47 y.o. WANDY Aguilera Thank you for referring Vianney Cordero to the [facility]. I saw her for a follow-up visit today, 07/26/23. Please see changes to care as documented in the assessment and plan. CHIEF COMPLAINT: F/u for treatment of WHO Class 3 / EOSS Stage 2 Obesity defined by initial BMI and comorbidities GERD/Barretts. This is Visit #10 [facility] visit for this 47 y.o. patient. Initial visit: 10/06/2021, 217 lbs (22 lbs, 10%) 01/09/2022, 227 lbs + 10 lbs 02/10/2022, 228 lbs +1 lbs 04/21/2022, 227 lbs - 1 lbs 06/25/2022, 219 lbs (-8 lbs, + 2 total) 09/08/2022, 226.8 lbs (+7.8 lbs + 9.8 lbs) 11/15/2022, 233 lbs (+ 6.2 lbs, + 16 lbs) 01/19/2023, 230 lbs (- 3 lbs, + 13 lbs) 02/26/2023, 232 lbs (+ 2 lbs, + 15 lbs) [facility] Team: Priti Skinner RD and Erik Sorenson, Health Director Payer HPI On the BSP, done with RD visits. Behaviors: eating and drinking Taking time to eat meals Eating three meals Protein at each Drinking water - likes Hint Just had EGD: Long segment Rodgers's above intact Addie; bx negative for dysplasia Had colo which was WNL. Mammo done at [facility] - requested Pt will get PE/Pap report from [facility] Stress - work is more stressful, short staffing is interfering with appt. Sleep - sleeping better, sleeps at [facility] closer to work Sleep Apnea Assessment: STOP BANG 11/12 1 point for each S- Snoring - NO T- Tired - NO O- Observed apnea (stopped breathing during sleep) - NO P- Blood Pressure (elevated) NO B- BMI >35 YES A- Age > 50 NO N- Neck Circuference > 15.7 inches NO G- Gender (male) NO Movement - tracking steps at work, high NEAT Nutrition/Recall: ER for poison lora; notes given her EGD, Rodgers's diet recommended B - shake L - turkey and cheese wrap D - chicken, potatoes, corn Drinking Hint, water, crystal lite fruit punch AOM: Currently taking: Metformin 2000 mg, phentermine 8 mg with B/L. AOM HX: Saxenda denied - no AOMs covered by [place] Medicaid C/I: GB? NO s/p lap CCY NO pancreatitis YES kidney stone - required intervention NO - thyroid CA/MTC NO - kidney issues NO - glaucoma Obesogenic meds: ?Flexeril? COMORBIDITIES ADDRESSED: YAHIR - NO HTN - NO HL - ? FLD - LFTs WNL. US 2021 no FLD. Diabetes spectrum - IR (13.6) REVIEW OF LABS/DIAGNOSIS SINCE LAST VISIT Computed Liver Fibrosis Score (Fib 4) unavailable. Necessary lab results were not found in the lastyear. Risk of Fibrosis Low Intermediate High NAFLD Less than 1.3 1.3-2.67 Greater than 2.67 Hepatitis C Less than 1.45 1.45-3.25 Greater than 3.25 Computed HIRO Insulin Resistance Calculation Score unavailable. Necessary lab results were not found in the last year. labs [x] I reviewed past / interim records including notes and labs. ONGOING INTERVENTIONS (Topics discussed today in BOLD): For specific behavioral interventions, see goals Nutrition: specific recommendations per RD - completed prebariatric visits Behavior: NO CONCERNS Activity: See goals - advancing Barriers: []needs cardiac eval []injury/pain preventing activity right now Stress Management:no concerns Sleep: no concerns Self-monitoring: Food log Pathway: [x]Individual []HLP []Surgery []Culinary []ACT []Monthly Lifestyle Classes Discussion 07/26/23: Current pillars reviewed. On the BSP, YELLOW per SR, ready to engage in therapy given her trauma hx and PTSF - she has been in therapy in the past but will need support in the future and acknowledges that today. She does has significant time constraints working at but will at least make the call to psych. Needs f/u with Jacob Wolf helping her maintain her weight. Given long segment Rodgers's despite intact Addie, important for her to have this surgery. Cont f/u. 10/06/2021 7:00 PM [facility] PATHWAY - ADULT Obesity Medicine Activate Adult Biobank Decline Goals bariatric behaviors Eating behaviors to practice prior to surgery: [...] day - see FAQ for more details breakfast choices Continue to eat for the first time [...] a priority: - Eggs - Cheese - Portuguese yogurt / cottage cheese - meat - fish - nuts/seeds - protein shake or bar Start with the protein, can choose to add other foods (would rather have you choose regular bread/ lao muffin, etc. - whole wheat if possible- instead of the muffin or poptart) continue to track in an mika Try goal of 1500 Collecting baseline information, can help you make choices The goal is not to eat as few calories as possible, but to find an appropriate amount for your body(and put a number on that) eating timing guides Aim for no more than 5 hours between eating events (no more than 7) Aim to eat 3 times in a day Deli meat or protein shakes/bar - could be something easy at a morning break in your new job, etc. Protein, veggies, fruit/grains - can eat all the food groups but that's in order of priority VITAL SIGNS: Vitals: 07/25/23 1657 BP: (!) 148/99 BP Location ([facility]): Right arm Patient Position: Sitting BP Cuff Sizes: Large Adult (32-43 cm) Pulse: 83 Weight: 110.9 kg (244 lb 6.4 oz) Height: 160.2 cm (5' 3.07) Body mass index is 43.2 kg/m??. PHYSICAL EXAM: Gen: Alert and appropriate, NAD. Generalized obesity LABS: Lab Results Component Value Date WBC 8.4 04/17/2018 RBC 4.32 04/17/2018 HGB 13.1 04/17/2018 HCT 37.9 04/17/2018 MCV 87.7 04/17/2018 MCH 30.3 04/17/2018 MCHC 34.6 04/17/2018 PLATELET 282 04/17/2018 RDWCV 12.2 04/17/2018 Lab Results Component Value Date NA 138 02/10/2022 K 4.0 02/10/2022 CL 105 02/10/2022 CO2 24 02/10/2022 BUN 12 02/10/2022 CREATININE 0.75 02/10/2022 GLUCOSE 94 (External Lab) 01/21/2021 GLUCFASTING 94 02/10/2022 CALCIUM 9.2 02/10/2022 ESTGFR 96 02/10/2022 Lab Results Component Value Date ALT 9 02/10/2022 AST 15 02/10/2022 ALKPHOS 82 02/10/2022 BILITOT 0.4 02/10/2022 BILIDIR <0.1 12/28/2014 ALBUMIN 4.3 02/10/2022 PROT 7.3 02/10/2022 Lab Results Component Value Date CHLPL 195 10/21/2021 HDL 48 10/21/2021 TRIG 64 10/21/2021 LDLCHOL 135 (H) 10/21/2021 Lab Results Component Value Date HA1C 4.9 02/10/2022 HA1C 5.4 10/21/2021 Lab Results Component Value Date TSH 2.34 02/10/2022 Lab Results Component Value Date LABINSU 13.6 02/10/2022 Lab Results Component Value Date GLUCFASTING 94 02/10/2022 Lab Results Component Value Date FERRITIN 161 (H) 02/10/2022 Lab Results Component Value Date [id number] 542 02/10/2022 25-OH Vit D Total (ng/mL) Date Value Status 02/10/2022 20 (L) Final ASSESSMENT AND PLAN Vianney Cordero was seen in follow up today for ongoing obesity, not yet at treatment goal [] with improvement [x] without change. Goals and treatment options were discussed. Continue medical management and lifestyle changes FACTORS CONTRIBUTING TO OBESITY Risk Stratification: probable insulin resistance Obesogenic meds: ?Flexeril? Plan: No change at this time Co-morbidities addressed: GERD Referrals pending: [facility] psych - pre bariatric AOM: Metformin XR Phentermine Diagnoses and all orders for this visit: Class 3 severe obesity with serious comorbidity and body mass index (BMI) of 40.0 to 44.9 in adult,unspecified obesity type - Phentermine (Lomaira) 8 mg tablet; Take 1 tablet by mouth 2 times daily. Post-traumatic stress disorder, unspecified Insulin resistance Elevated ferritin Elevated LDL cholesterol level Vitamin D deficiency No orders of the defined types were placed in this encounter. Return for F/U with Maryann, 8-10 weeks with me. 1 min chart review 30 min [id number] Visit time 5 min Documentation time I spent time as above caring for this patient today; reviewing labs, writing prescriptions, documenting visit, examining the patient, arranging other specialty care, counseling in diet and/or exercise and discussion of treatment options in the care of obesity. documented in this encounter Plan of Treatment Upcoming Encounters Date Type Department Care Team (Late st Contact Info) Description 12/31/2024 10:00 AM EST Office [place] [address] Mercy Amanda MD [facility] [address] [place] [address] 04/01/2025 2:00 PM EDT Office [place] [address] Erum Szymanski MD [facility] [place] [address] documented as of this encounter Goals Goal [...] a priority: - Eggs - Cheese - Portuguese yogurt / cottage cheese - meat - fish - nuts/seeds - protein shake or bar Start with the protein, can choose to add other foods (would rather have you choose regular bread/ lao muffin, etc. - whole wheat if possible- [...] to 44.9 in adult, unspecified obesity type Post-traumatic stress disorder, unspecified Insulin resistance Dysmetabolic Syndrome X Elevated ferritin Other abnormal blood chemistry Elevated LDL cholesterol level Pure hypercholesterolemia Vitamin D deficiency Unspecified vitamin D deficiency documented in this encounter Care Teams Jet Worker Relationship Specialty Start Date End Date Sonido Cordoba PA [address] [place] [address] PCP - General Family Medicine 07/06/20 documented as of this encounter
--- OUTSIDE RECORDS SUMMARY | 2024-10-16 17:37 | XMS_ITS | Encounter Summary ---
[place] [address] Care Team Providers Care Kaiwhakahaere Name Role Phone Sonido Cordoba Primary Care Provider +1- [phone] Encounter Details Date Type Department Care Team (Late st Contact Info) Description 09/24/2023 Telephone [place] [phone] Juliette Lu PsyD [facility] [place] [address] Social History Tobacco Use Types Packs/Day Years [...] Telephone Encounter - Juliette Lu PsyD - 09/24/2023 2:20 PM EST Provider called pt at approx 2:20 PM to discuss [facility] 5D/ psychotherapy referral and engagement process. Pt did not answer and provider was unable to LVM. Pt is encouraged to call [facility] Psychiatry to discuss tx process. documented in this encounter Plan of Treatment Upcoming Encounters Date Type Department Care Team (Late st Contact Info) Description 12/31/2024 10:00 AM EST Office Visit [place] [address] Mercy Amanda MD [facility] [place] [address] 04/01/2025 2:00 PM EDT Office Visit [place] [phone] Erum Szymanski MD [facility] [place] [address] documented as of this encounter Goals Goal [...] priority: - Eggs - Cheese - [place]er yogurt / cottage cheese - meat - fish - nuts/seeds - protein shake or bar Start with the protein, can choose to add other foods (would rather have you choose regular bread/ maori muffin, etc. - whole wheat if possible- [...] on filedocumented in this encounter Care Teams Kaiwhakahaere Relationship Specialty Start Date End Date Sonido Cordoba PA [address] [place] [address] PCP - General Family Medicine 07/06/20 documented as of this encounter
--- OUTSIDE RECORDS SUMMARY | 2024-10-16 17:37 | XMS_ITS | Encounter Summary ---
[place] [address] Care Team Providers Care Cnc Operator Machinist Name Role Phone Sonido Cordoba Primary Care Provider +1- [phone] Encounter Details Date Type Department Care Team (Late st Contact Info) Description 10/08/2023 Telephone [place] [phone] [facility] [place] [address] Social History Tobacco Use Types Packs/Day Years [...] Telephone Encounter - Juliette Lu PsyD - 10/08/2023 3:01 PM EST Pt and provider attempted to connect on 10/04 to discuss [facility] Psychiat[facility] and [facility], but were unable to. Pt messaged via eDH requesting a call on 10/08/2023, and provider called at approx. 3 PM today andspoke with pt. Pt is scheduled with Chrystal Metz, PhD on 11/07/2022 (in [facility] Psychiatry) and current provider (Juliette Lu PsyD) on 11/23/2022 (in [facility] - Bariatric Surgery Evaluation f/u). Pt confirmed these appointments and denied questions. Provider reminded pt she is welcome to reach out if questions arise. documented in this encounter Plan of Treatment Upcoming Encounters Date Type Department Care Team (Late st Contact Info) Description 12/31/2024 10:00 AM EST Office [place] [address] [facility] [address] [place] [address] 04/01/2025 2:00 PM EDT Office [place] [phone] [facility] [place] [address] documented as of this encounter Goals Goal [...] a priority: - Eggs - Cheese - Swiss yogurt / cottage cheese - meat - [...] on filedocumented in this encounter Care Teams Cnc Operator Machinist Relationship Specialty Start Date End Date Sonido Cordoba PA [address] [place] [address] PCP - General Family Medicine 07/06/20 documented as of this encounter
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
--- OUTSIDE RECORDS SUMMARY | 2024-10-16 17:37 | XMS_ITS | Encounter Summary ---
[place] [address] Care Team Providers Care Finish Filer Name Role Phone Sonido Cordoba Primary Care Provider +1- [phone] Encounter Details Date Type Department Care Team (Latest Contact Info) Description 01/09/2024 Travel Social History Tobacco Use Types Packs/Day [...] AM EST Office [place] [phone] Mercy Amanda MD [facility] [address] [place] [address] 04/01/2025 2:00 PM EDT Office Visit Gastroenterology at [facility] [place] [address] Erum Szymanski MD [facility] [place] [address] documented as of this encounter Goals Goal [...] a priority: - Eggs - Cheese - Lao yogurt / cottage cheese - meat - fish - nuts/seeds - protein shake or bar Start with the protein, can choose to add other foods (would rather have you choose regular bread/ greek muffin, etc. - whole wheat if possible- [...] on filedocumented in this encounter Care Teams Finish Filer Relationship Specialty Start Date End Date Sonido Cordoba PA [address] [place] [address] PCP - General Family Medicine 07/06/20 documented as of this encounter
--- OUTSIDE RECORDS SUMMARY | 2024-10-16 17:37 | XMS_ITS | Encounter Summary ---
[place] [address] Care Team Providers Care Barrel Polisher Inside Name Role Phone Sonido Cordoba Primary Care Provider +1- [phone] Encounter Details Date Type Department Care Team (Latest Contact Info) Description 09/14/2023 Travel Social History Tobacco Use Types Packs/Day [...] AM EST Office [place] [phone] Mercy Amanda MD [facility] DR [facility] [address] 04/01/2025 2:00 PM EDT Office Visit Gastroenterology at [facility] [place] [address] Erum Szymanski MD [facility] DR [place]STR[place] [address] documented as of this encounter Goals Goal [...] (would rather have you choose regular bread/ khmer muffin, etc. - whole wheat if possible- [...] on filedocumented in this encounter Care Teams Barrel Polisher Inside Relationship Specialty Start Date End Date Sonido Cordoba PA [address] [place] [address] PCP - General Family Medicine 07/06/20 documented as of this encounter
--- OUTSIDE RECORDS SUMMARY | 2024-10-16 17:37 | XMS_ITS | Encounter Summary ---
Author Organization [facility] [place] [address] Care Team Providers Care Esthetician/Skin Therapist Name Role Phone Sonido Cordoba Primary Care Provider +1- [phone] Encounter Details Date Type Department Care Team (Late st Contact Info) Description 11/23/2023 9:00 AM EST Office Visit Psychiatry [place] [address] Chrystal Metz, PhD [facility] [place] [address] Post-traumatic stress disorder, unspecified Social History Tobacco [...] Progress Notes * Chrystal Metz, PhD - 11/23/2023 9:00 AM EST Images from the original note were not included. INDIVIDUAL THERAPY PROGRESS NOTE CPT CODES 56583, 36369, 14792 LOCATION: Office SESSION DURATION: 45 minutes (52 minutes) ATTENDEES: Patient PRIMARY COMPLAINT/DIAGNOSIS: Post-traumatic stress disorder, unspecified (provisional) TREATMENT MODALITY: CBT PATIENT REPORT OF CURRENT FUNCTIONING/CHANGES: No significant changes reported since our initial evaluation. CENTRAL THEME OF SESSION: Information gathering IN-SESSION PROCEDURES: During today's session, our primary focus was on gathering additional information on how past traumatic events may be currently impacting Ms. Cordero's life. Ms. Cordero disclosed some additional traumatic events to this therapist, reporting for one event that this was the first time she had spoken of it without crying. She noted that she does speak about past traumatic experiences with her current partner and feels comfortable doing so. We discussed the role of avoidance in prolonging distress after traumatic experiences and Ms. Cordero noted that while she used to avoid a number of places or situations, that she feels this has lessened over time. CLINICAL FINDINGS: PROGRESS FROM BASELINE: same as [...] diagnostic picture and guide decisions around treatment planning. PLAN: Treatment plan created/reviewed on today. Revised goals or interventions: Weekly CBT focused on gathering additional information to clarify diagnostic picture and clarifying patient's treatment goals. Safety Risk Management: Patient did not evidence suicidal or homicidal ideation. Homework: None assigned. Next Appointment: 12/10 at 1pm For mental health emergencies, call 988 from anywhere in the [facility]. State specific information for [place] and [place] crisis services are as follows and should be used to access local resources: [facility] Mental Health Crises Services [facility] Crisis Line text or call Visit www.InTown for further information [place] Call your local [facility] crisis line at: [place]: [facility] [phone] [place]: [facility] Services [phone] [place]: [facility] [phone] [place]: Laci [place] [phone] [place]: [facility] [phone] Yen[place] Rios: [facility] Counseling and Support [phone] [place]: [facility] Mental Health [phone] on weekdays 8AM-4:30PM and [phone] on nights and weekends [place]: Kailyn Roy [place]: [facility] [phone] [place]: [facility] Services [phone] [place]: [facility] Services, [place]: HCRS [place]: HCRS or Text [place] to [phone] For further information for [place] residents: https://mentalhealth.[place].[facility]/services/emergency-services/cfj-ppv-irnd National Suicide Prevention Hotline: For patients cared for in the Department of Psychiatry, you can reach your mental health clinician at [phone]. Chrystal Metz, PhD documented in this encounter Plan of Treatment Upcoming Encounters Date Type Department Care Team (Late st Contact Info) Description 12/31/2024 10:00 AM EST Office [place] [phone] Mercy Amanda MD [facility] [address] [place] [address] 04/01/2025 2:00 PM EDT Office [place] [phone] Erum Szymanski MD [facility] [place] [address] documented as of this encounter Goals Goal [...] a priority: - Eggs - Cheese - [place] yogurt / cottage cheese - meat [...] unspecified documented in this encounter Care Teams Esthetician/Skin Therapist Relationship Specialty Start Date End Date Sonido Cordoba PA [address] [place] [address] PCP - General Family Medicine 07/06/20 documented as of this encounter
--- OUTSIDE RECORDS SUMMARY | 2024-10-16 17:37 | XMS_ITS | Encounter Summary ---
Author Organization [facility] [place] [address] Care Team Providers Care Occupational Psychologist Name Role Phone Sonido Cordoba Primary Care Provider +1- [phone] Encounter Details Date Type Department Care Team (Late st Contact Info) Description 02/04/2024 4:30 PM EDT [place] [phone] Mercy Amanda MD [facility] [place], [place] [id number] Class 3 severe obesity with serious comorbidity and body mass index (BMI) of 40.0 to 44.9 in adult, unspecified obesity type (Primary Dx); Post-traumatic stress disorder, unspecified; Insulin resistance; Elevated ferritin; Elevated LDL cholesterol level; Encounter for pre-bariatric surgery counseling and education [...] Sign Reading Time Taken Comments Blood Pressure 153/89 02/04/2024 4:26 PM EDT Pulse 81 02/04/2024 4:26 PM EDT Temperature - - Respiratory Rate - - Oxygen Saturation - - Inhaled Oxygen Concentration - - Weight 113.3 kg (249 lb 12.8 oz) 02/04/2024 4:26 PM EDT Height 160.2 cm (5' 3.07) 02/04/2024 4:26 PM ED T Body Mass Index 44.15 02/04/2024 4:26 PM EDT documented in this encounter Progress Notes * Mercy Amanda MD - 02/04/2024 4:30 PM EDTSummary: 13th visit with Images from the original note were not included. [facility] Patient Name: Vianney Cordero Date of : 1975 Age: 48 y.o. WANDY Aguilera Thank you for referring Vian[facility]. I saw her for a follow-up visit today, 02/05/24. Please see changes to care as documented in the assessment and plan. CHIEF COMPLAINT: F/u for treatment of WHO Class 3 / EOSS Stage 2 Obesity defined by initial BMI and comorbidities GERD/Barretts. This is Visit #13 [facility] visit for this 48 y.o. patient. Initial visit: 10/06/2021, 217 lbs [...] lbs (+ 2 lbs, + 15 lbs) 07/25/2023, no new weight 10/08/2023, 246 lbs 12/10/2023, 256 lbs 02/04/2024, 249 lbs (- 7 lbs) [facility] Team: Priti Skinner RD and Erik Sorenson, Health Contact Lens Lathe Operator HPI Met with BS team - wanted pt to come here bc of wt gain. Cut all of my portions in half again - down to 1/4 of what I used to eat. Changed out white rice for brown rice. 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 Needs BS - scheduled for 02/24. Recall: Easter B - deviled eggs L - late - 2 thin slices of ham, small serving of ham, carrots scoop of green jenkins casserole D - skipped Drinking water, Cut out sugar, wine is out, soda is out. Snacks out. Trying for 3 hour walk 1x a week. Behaviors: no issues eating and drinking Taking time to eat meals Eating three meals Protein at each Drinking water - likes Hint Checklist: EGD 05/2023 : Long segment Rodgers's above intact Addie; bx negative for dysplasia [place] 05/2023: WNL Mammo [facility] - in media Pt will get PE/Pap report from [employer] - dropped off - will scan in today Contraception - BTL Sleep Apnea Assessment: STOP BANG 11/12 1 point for each S- Snoring - NO T- Tired - NO O- Observed apnea (stopped breathing during sleep) - NO P- Blood Pressure (elevated) NO B- BMI >35 YES A- Age > 50 NO N- Neck Circuference > 15.7 inches NO G- Gender (male) NO AOM: Currently taking: Metformin 2000 mg, phentermine 8 mg with B/L. AOM HX: Topiramate C/I due to kidney stone C/I: GB? NO s/p lap CCY NO pancreatitis YES kidney stone - required intervention NO - thyroid CA/MTC NO - kidney issues NO - glaucoma Obesogenic meds: ?Flexeril? COMORBIDITIES ADDRESSED: YAHIR - NO HTN - NO HL - ? FLD - LFTs WNL. US 2021 no FLD. Diabetes spectrum - IR (13.6) REVIEW OF LABS/DIAGNOSIS SINCE LAST VISIT Liver Fibrosis Score (Fib 4) was 1.03 at 02/05/2024 6:02 AM Risk of Fibrosis Low Intermediate High NAFLD Less than 1.3 1.3-2.67 Greater than 2.67 Hepatitis C Less than 1.45 1.45-3.25 Greater than 3.25 HIRO Insulin Resistance Calculation Score was 11.35 at 02/05/2024 6:02 AM Preop labs done, WNL [x] I reviewed past / interim records [...] []Surgery []Culinary []ACT []Monthly Lifestyle Classes Discussion 02/05/24: GREEN light for surgery. Needs to get weight down - has cut portions significantly and wt is down already, has started her extreme walking as well. Continues magen behaviors. Message sent to BS regarding this and the fact her wt gain likely related to worsening IR and rising [id number] med management. On AOMs she can take and afford. Has swallow study scheduled. Will f/u withme prn and after surgery. 10/06/2021 7:00 PM [facility] - ADULT Obesity Medicine Activate Adult [...] a priority: - Eggs - Cheese - Grenadian yogurt / cottage cheese - meat - fish - nuts/seeds - protein shake or bar Start with the protein, can choose to add other foods (would rather have you choose regular bread/ latvian muffin, etc. - whole wheat if possible- [...] in order of priority VITAL SIGNS: Vitals: 02/04/24 1626 BP: 153/89 BP Location ([facility]): Right arm Patient Position: Sitting BP Cuff Sizes: Large Adult (32-43 cm) Pulse: 81 Weight: 113.3 kg (249 lb 12.8 oz) Height: 160.2 cm (5' 3.07) Body mass index is 44.15 kg/m??. PHYSICAL EXAM: Gen: Alert and appropriate, NAD. Generalized obesity LABS: HIRO Insulin Resistance Calculation Score was 11.35 at 02/05/2024 6:02 AM Lab Results Component Value Date WBC 7.6 11/07/2023 RBC 4.49 11/07/2023 HGB 13.4 11/07/2023 HCT 39.7 11/07/2023 MCV 88.4 11/07/2023 MCH 29.8 11/07/2023 MCHC 33.8 11/07/2023 PLATELET 282 11/07/2023 RDWCV 12.0 11/07/2023 Lab Results Component Value Date NA 142 11/07/2023 K 4.3 11/07/2023 CL 105 11/07/2023 CO2 25 11/07/2023 BUN 15 11/07/2023 CREATININE 0.82 11/07/2023 GLUCOSE 94 (External Lab) 01/21/2021 GLUCFASTING 121 (H) 11/07/2023 CALCIUM 9.3 11/07/2023 ESTGFR 89 11/07/2023 Lab Results Component Value Date ALT 19 11/07/2023 AST 27 11/07/2023 ALKPHOS 82 11/07/2023 BILITOT <0.2 (L) 11/07/2023 BILIDIR <0.1 12/28/2014 ALBUMIN 4.3 11/07/2023 PROT 7.0 11/07/2023 Lab Results Component Value Date CHLPL 218 11/07/2023 HDL 40 11/07/2023 CHOLHDL 5.4 11/07/2023 TRIG 265 11/07/2023 LDLCHOL 125 11/07/2023 Lab Results Component Value Date HA1C 5.6 11/07/2023 HA1C 4.9 02/10/2022 HA1C 5.4 10/21/2021 Lab Results Component Value Date TSH 2.82 11/07/2023 Lab Results Component Value Date LABINSU 38.0 (H) 11/07/2023 Lab Results Component Value Date GLUCFASTING 121 (H) 11/07/2023 Lab Results Component Value Date FERRITIN 114 11/07/2023 Lab Results Component Value Date [id number] 11/07/2023 25-OH Vit D Total (ng/mL) Date Value Status 11/07/2023 22 Final ASSESSMENT AND PLAN Vianney Cordero was seen in follow up today for ongoing obesity, not yet at treatment goal [x] with improvement [] without change. Goals and treatment options were discussed. Continue medical management and lifestyle changes FACTORS CONTRIBUTING TO OBESITY Risk Stratification: probable insulin resistance Obesogenic meds: ?Flexeril? Plan: No change at this time Co-morbidities addressed: GERD Referrals pending: BS AOM management today: Metformin XR 2000 mg - cont Phentermine 8 mg BID Diagnoses and all orders for this visit: Class 3 severe obesity with serious comorbidity and body mass index (BMI) of 40.0 to 44.9 in adult,unspecified obesity type - Phentermine (Lomaira) 8 mg tablet; Take 1 tablet by mouth 2 times daily. Post-traumatic stress disorder, unspecified Insulin resistance Elevated ferritin Elevated LDL cholesterol level Encounter for pre-bariatric surgery counseling and education No orders of the defined types were placed in this encounter. Return for Post bariatric surgery f/u in 6-8 months. 1 min chart review 25 min [id number] Visit time 5 min Documentation time I [...] AM EST Office [place] [address] Mercy Amanda MD [facility] [address] [facility] [place] [address] 04/01/2025 2:00 PM EDT Office [place] [phone] Erum Szymanski MD [facility] [place] [address] documented as of this encounter Goals Goal [...] a priority: - Eggs - Cheese - Grenadian yogurt / cottage cheese - meat - fish - nuts/seeds - protein shake or bar Start with the protein, can choose to add other foods (would rather have you choose regular bread/ latvian muffin, etc. - whole wheat if possible- [...] 40.0 to 44.9 in adult, unspecified obesity type- Primary Post-traumatic stress disorder, unspecified Insulin resistance Dysmetabolic Syndrome X Elevated ferritin Other abnormal blood chemistry Elevated LDL cholesterol level Pure hypercholesterolemia Encounter for pre-bariatric surgery counseling and education documented in this encounter Care Teams Occupational Psychologist Relationship Specialty Start Date End Date Sonido Cordoba PA [address] [place] [address] PCP - General Family Medicine 07/06/20 documented as of this encounter
--- OUTSIDE RECORDS SUMMARY | 2024-10-16 17:37 | XMS_ITS | Encounter Summary ---
[place] [address] Care Team Providers Care Vest Backer Name Role Phone Sonido Cordoba Primary Care Provider +1- [phone] Encounter Details Date Type Department Care Team (Latest Contact Info) Description 11/23/2023 Travel Social History Tobacco Use Types Packs/Day [...] AM EST Office [place] [phone] Mercy Amanda MD [facility] [address] [facility] [address] 04/01/2025 2:00 PM EDT Office Visit Gastroenterology at [facility] [place] [address] Erum Szymanski MD [facility] [place] [address] documented as of this encounter Goals Goal [...] a priority: - Eggs - Cheese - Polish yogurt / cottage cheese - meat - fish - nuts/seeds - protein shake or bar Start with the protein, can choose to add other foods (would rather have you choose regular bread/ hebrew muffin, etc. - whole wheat if possible- [...] on filedocumented in this encounter Care Teams Vest Backer Relationship Specialty Start Date End Date Sonido Cordoba PA [address] [place] [address] PCP - General Family Medicine 07/06/20 documented as of this encounter
--- OUTSIDE RECORDS SUMMARY | 2024-10-16 17:37 | XMS_ITS | Encounter Summary ---
Author Organization [facility] [place] [address] Care Team Providers Care Web Application Tester Name Role Phone Sonido Cordoba Primary Care Provider +1- [phone] Reason for Visit * Reason Onset Date Comments Medication Refill 11/16/2023 Encounter Details Date Type Department Care Team (Late st Contact Info) Description 11/16/2023 [place] [address] Mercy Amanda MD [facility] [address] [facility] [place] [address] Class 3 severe obesity with serious comorbidity [...] AM EST Office [place] [phone] Mercy Amanda MD [facility] [address] [place] [address] 04/01/2025 2:00 PM EDT Office [place] [phone] Erum Szymanski MD [facility] [place] [address] documented as of this encounter Goals Goal [...] a priority: - Eggs - Cheese - Latvian yogurt / cottage cheese - meat - [...] type documented in this encounter Care Teams Web Application Tester Relationship Specialty Start Date End Date Sonido Cordoba PA [address] [place] [address] PCP - General Family Medicine 07/06/20 documented as of this encounter
--- OUTSIDE RECORDS SUMMARY | 2024-10-16 17:37 | XMS_ITS | Encounter Summary ---
Author [place] [address] Care Team Providers Care Power And Recovery Supervisor Name Role Phone Sonido Cordoba Primary Care Provider +1- [phone] Encounter Details Date Type Department Care Team (Late st Contact Info) Description 01/24/2024 Telephone [place] [phone] Juliette Lu PsyD [facility] [address] Social History Tobacco Use Types Packs/Day Years [...] Telephone Encounter - Juliette Lu PsyD - 01/24/2024 12:30 PM EDT Provider called and spoke with pt after receiving an eDH message about her availability to connect. Provider reviewed [facility] Psych recommendation relating to therapy, and the importance of establishing care, and having support post-bariatric surgery. Pt endorsed desire to have a [facility] Psych f/u visit 2-mo after surgery (once date is decided, if deemed appropriate by her [facility] Surgical Team) to check-in on how she is doing, whether she is actively engaging in 5D services or not. [facility] will schedule this if/when surgical date has been decided. Pt was in agreement with the plan and denied questions or concerns. This provider has consulted with mechanical supervisor/attending (Maryann Loo, PhD). documented in this encounter Plan of Treatment Upcoming Encounters Date Type Department Care Team (Late st Contact Info) Description 12/31/2024 10:00 AM EST Office Visit [place] [address] Mercy Amanda MD [facility] [address] [facility] [address] 04/01/2025 2:00 PM EDT Office Visit [place] [phone] Erum Szymanski MD [facility] [place] [address] documented as of this encounter Goals Goal [...] a priority: - Eggs - Cheese - Chinese yogurt / cottage cheese - meat - fish - nuts/seeds - protein shake or bar Start with the protein, can choose to add other foods (would rather have you choose regular bread/ estonian muffin, etc. - whole wheat if possible- [...] on filedocumented in this encounter Care Teams Power And Recovery Supervisor Relationship Specialty Start Date End Date Sonido Cordoba PA [address] [place] [address] PCP - General Family Medicine 07/06/20 documented as of this encounter
--- OUTSIDE RECORDS SUMMARY | 2024-10-16 17:37 | XMS_ITS | Encounter Summary ---
Author Organization [facility] Address [facility] [place] [address] Care Team Providers Care Water Treatment Plant Operator Name Role Phone Sonido Cordoba Primary Care Provider +1- [phone] Encounter Details Date Type Department Care Team (Late st Contact Info) Description 10/08/2023 9:30 AM EST TH Visit (TeleHealth) [place] [id number] Mercy Amanda MD [facility] [address] [facility] [place] [address] Class 3 severe obesity with serious comorbidity and body mass index (BMI) of 40.0 to 44.9 in adult, unspecified obesity type; Insulin resistance; Post-traumatic stress disorder, unspecified; Elevated ferritin; Elevated LDL cholesterol level; Vitamin D deficiency; Encounter for pre-bariatric surgery counseling and education [...] - Inhaled Oxygen Concentration - - Weight 111.6 kg (246 lb) 10/08/2023 9:57 AM EST Pt reported Height - - Body Mass Index 43.48 07/25/2023 4:57 PM EDT documented in this encounter Progress Notes * Mercy Amanda MD - 10/08/2023 9:30 AM ESTSummary: 11th visit with MD Images from the original note were not included. Patient provided verbal consent prior to initiation of this telemedicine encounter and expressed understanding that the telemedicine visit may be billed similar to a clinic visit, pt was seen while via [x] Video [] phone For this video visit, pt is located at: [facility] [place] Patient Name: Vianney Cordero Date of : 1975 Age: 47 y.o. WANDY Aguilera Thank you for referring Vianney Cordero to the [facility]. I saw her for a follow-up visit today, 10/08/23. Please see changes to care as documented in the assessment and plan. CHIEF COMPLAINT: F/u for treatment of WHO Class 3 / EOSS Stage 2 Obesity defined by initial BMI and comorbidities GERD/Barretts. This is Visit #11 [facility] visit for this 47 y.o. patient. [...] 07/25/2023, no new weight 10/08/2023, 246 lbs [facility] Team: Priti Skinner RD and Erik Sorenson, Health Home Visitor HPI Still YELLOW. Has appt with psych scheduled in early Nov. Was drinking one glass of wine, one day a week. Gave that up last month. Notes gaining weight on steroids - took for a month for poison Ciara. Recall: Brunch - pancakes, eggs D - meat loaf, potato, green beans Drinking -water, sometimes propel or hint Behaviors: no issues eating and drinking Taking time to eat meals Eating three meals Protein at each Drinking water - likes Hint Checklist: EGD 05/2023 : Long segment Rodgers's above intact Addie; bx negative for dysplasia [place] 05/2023: WNL Mammo [facility] - in media Pt will get PE/Pap report from [facility] - will drop this off Contraception - BTL Sleep Apnea Assessment: STOP [...] phentermine 8 mg with B/L. AOM HX: NO AOMs covered by [place] Medicaid C/I: GB? NO s/p lap CCY [...] Computed Liver Fibrosis Score (Fib 4) unavailable. One or more values for this score either were not found within the given timeframe or did not fit some other criterion. Risk of Fibrosis Low Intermediate High NAFLD Less than 1.3 1.3-2.67 Greater than 2.67 Hepatitis C Less than 1.45 1.45-3.25 Greater than 3.25 Computed HIRO Insulin Resistance Calculation Score unavailable. One or more values for this score either were not found within the given timeframe or did not fit some other criterion. labs [x] I reviewed past / interim [...] []Surgery []Culinary []ACT []Monthly Lifestyle Classes Discussion 10/08/23: Still on the BSP, YELLOW while awaiting therapy. Rodgers's in setting of intact Addie. Will check labs. Cont Metformin and phentermine. Cont MD and psych f/u. 10/06/2021 7:00 PM [facility] PATH[facility] - ADULT Obesity Medicine Activate [...] a priority: - Eggs - Cheese - Beninese yogurt / cottage cheese - meat - fish - nuts/seeds - protein shake or bar Start with the protein, can choose to add other foods (would rather have you choose regular bread/ upper sorbian muffin, etc. - whole wheat if possible- [...] in order of priority VITAL SIGNS: Vitals: 10/08/23 0957 Weight: 111.6 kg (246 lb) Body mass index is 43.48 kg/m??. PHYSICAL EXAM: Gen: Alert and appropriate, [...] (H) 02/10/2022 Lab Results Component Value Date [id number] 02/10/2022 25-OH Vit D Total (ng/mL) [...] this time Co-morbidities addressed: GERD Referrals pending: [facility] psych - pre bariatric AOM: Metformin XR Phentermine Diagnoses and all orders for this visit: Class 3 severe obesity with serious comorbidity and body mass index (BMI) of 40.0 to 44.9 in adult,unspecified obesity type - Hemogram; Future - CMP w/fasting Glucose; Future - Ferritin; Future - Hemoglobin A1c; Future - Insulin, total; Future - Lipid Panel (Reflex Direct LDL); Future - TSH; Future - Vitamin B12; Future - Vitamin D, 25-Hydroxy; Future - Folate, serum; Future - PTH; Future - Iron and TIBC; Future - Vitamin B1, whole blood; Future Insulin resistance - CMP w/fasting Glucose; Future - Hemoglobin A1c; Future - Insulin, total; Future Post-traumatic stress disorder, unspecified Elevated ferritin - CMP w/fasting Glucose; Future - Ferritin; Future - Iron and TIBC; Future Elevated LDL cholesterol level - Lipid Panel (Reflex Direct LDL); Future Vitamin D deficiency - Vitamin D, 25-Hydroxy; Future Encounter for pre-bariatric surgery counseling and education - Hemogram; Future - CMP w/fasting Glucose; Future - Ferritin; Future - Hemoglobin A1c; Future - Insulin, total; Future - Lipid Panel (Reflex Direct LDL); Future - TSH; Future - Vitamin B12; Future - Vitamin D, 25-Hydroxy; Future - Folate, serum; Future - PTH; Future - Iron and TIBC; Future - Vitamin B1, whole blood; Future Orders Placed This Encounter Procedures Hemogram CMP w/fasting Glucose Ferritin Hemoglobin A1c Insulin, total Lipid Panel (Reflex Direct LDL) TSH Vitamin B12 Vitamin D, 25-Hydroxy Folate, serum PTH Iron and TIBC Vitamin B1, whole blood Return in about 10 weeks (around 12/17/2023) for In person or Zoom, With me, F/U with Maryann or Team. 1 min chart review 25 min [id number] Visit time 5 min Documentation time I [...] AM EST Office Visit [place] [phone] Mercy Amanda MD [facility] [address] [facility] [address] 04/01/2025 2:00 PM EDT Office Visit [place] [address] Erum Szymanski MD [facility] [place] [address] documented as of this encounter Goals Goal [...] a priority: - Eggs - Cheese - Beninese yogurt / cottage cheese - meat - fish - nuts/seeds - protein shake or bar Start with the protein, can choose to add other foods (would rather have you choose regular bread/ upper sorbian muffin, etc. - whole wheat if possible- [...] as of this encounter Results * Vitamin B1, whole blood (11/07/2023 7:47 AM EST) [facility] Vit B1 l Wb (MARCH) 179 70 - 180 nmol/L [facility] Comment: ADDITIONAL INFORMATION This test was developed and its performance characteristics determined by [facility] in a manner consistent with CLIA requirements. This test has not been cleared or approved by the U.S. Food and Drug Administration. Test Performed by: [address] [address] Top Inventory Control Executive: Valentín Goetz M.D. Ph.D.; CLIA# [id number] Blood 11/07/2023 7:47 AM EST 11/07/2023 12:27 PM EST Narrative Resulting Agency Comment Spec In Lab Mercy Amanda MD LAB SEND OUT O RDERABLES Performing Organization Address City/[facility]/ZIP Co de Phone Number [facility] [place] [address] * Iron and TIBC (11/07/2023 7:47 AM EST) Iron 72 30 - 150 mcg/dL [facility] TIBC 311 250 - 450 mcg/dL [facility] Iron Saturation 23 20 - 50 % [facility] Blood 11/07/2023 7:47 AM EST 11/07/2023 7:52 AM EST Narrative Resulting Agency Comment Spec In Lab Mercy Amanda MD CHEMISTRY GLORIA LAURA Performing Organization Address City/[facility] Co de Phone Number [facility] [place] [address] * PTH (11/07/2023 7:47 AM EST) Parathyroid Hormone 61 15 - 65 pg/mL [facility] Blood 11/07/2023 7:47 AM EST 11/07/2023 7:52 AM EST Narrative Resulting Agency Comment Spec In Lab Mercy LAURA Performing Organization Address City/[facility] Co de Phone Number [facility] [place] [address] * Folate, serum (11/07/2023 7:47 AM EST) Folate 9.4 4.8 - 24.2 ng/mL [facility] Blood 11/07/2023 7:47 AM EST 11/07/2023 7:52 AM EST Narrative Resulting Agency Comment Spec In Lab Mercy Amanda MD CHEMISTRY GLORIA LAURA Performing Organization Address City/[facility] Co de Phone Number [facility] [place] [address] * Vitamin D, 25-Hydroxy (11/07/2023 7:47 AM EST) Vitamin D Total 25 OH 22 21 - 100 ng/mL [facility] Vit D Interp Insufficient [facility] Blood 11/07/2023 7:47 AM EST 11/07/2023 7:52 AM EST Narrative Resulting Agency Comment Spec In Lab Mercy Amanda MD CHEMISTRY GLORIA LAURA Performing Organization Address [facility] Co de Phone Number [facility] [place] [address] * Vitamin B12 (11/07/2023 7:47 AM EST) Vitamin B12 428 232 - 1,245 pg/mL [facility] Blood 11/07/2023 7:47 AM EST 11/07/2023 7:52 AM EST Narrative Resulting Agency Comment Spec In Lab Mercy Amanda MD CHEMISTRY GLORIA LAURA Performing Organization Address [facility] de Phone Number [facility] [place] [address] * TSH (11/07/2023 7:47 AM EST) Thyroid Stimulating Hormone 2.82 0.27 - 4.20 mcIU/mL [facility] Comment: Reference Interval (mcIU/mL): Females: ??First Trimester: 0.23-3.88 ??Second Trimester: 0.22-3.90 ??Third Trimester: 0.44-4.66 Blood 11/07/2023 7:47 AM EST 11/07/2023 7:52 AM EST Narrative Resulting Agency Comment Spec In Lab Mercy Amanda MD CHEMISTRY GLORIA LAURA [facility] [place] [address] * Lipid Panel (Reflex Direct LDL) (11/07/2023 7:47 AM EST) Cholesterol, Total 218 mg/dL [facility] Comment: Lower Risk: <200 mg/dL Average Risk: 200-239 mg/dL Higher Risk: >py=914 mg/dL Triglyceride 265 mg/dL [facility] Comment: Average Risk/Lower Risk: <150 mg/dL Borderline High Risk: 150-199 mg/dL High Risk: 200-499 mg/dL Very High Risk: >yi=238 mg/dL HDL Cholesterol 40 mg/dL [facility] Comment: Males: ?? Higher Risk: <40 mg/dL Females: ?? Higher Risk: <50 mg/dL LDL Cholesterol 125 mg/dL [facility] Comment: Lowest Risk: <100 mg/dL Lower Risk: 100-129 mg/dL Borderline High Risk: 130-159 mg/dL High Risk: 160-189 mg/dL Very High Risk: >yz=228 mg/dL Cholesterol/HDL Ratio 5.4 ratio [facility] Lipid Interpretation See Note [facility] Comment: Lipid management should be guided by a patient? s ASCVD risk, goals and preferences. ACC/AHA Guidelines recommend high intensity statin if clinical ASCVD or LDL greater than or equal to 190 mg/dL. http://[employer]Call.[employer]/QJW-URL-Yfqduofhn Adults aged 40-75 with LDL 70-189 mg/dL should have their 10 year ASCVD risk estimated with the ACC/AHA ASCVD risk drapery estimator http://tools.acc.org/NLVJJ-Krml-Nksvmeapp/ Statin should be discussed if risk greater [...] Spec In Lab Mercy Amanda MD CHEMISTRY ORDManas LAURA Performing Organization Address City/[facility]/ZIP Co de Phone Number [facility] [place] [address] * (ABNORMAL) Insulin, total (11/07/2023 7:47 AM EST) Insulin 38.0(H) 2.6 - 24.9 mcunit/mL [facility] Comment:Reference intervals derived from fasting individuals. Blood 11/07/2023 7:47 AM EST 11/07/2023 7:52 AM EST Narrative Resulting Agency Comment Spec In Lab Mercy Amanda MD CHEMISTRY ORDManas LAURA Performing Organization Address City/[facility] Co de Phone Number [facility] [place] [address] * Hemoglobin A1c (11/07/2023 7:47 AM EST) Hemoglobin A1c 5.6 4.3 - 5.6 % [facility] Comment: Reference Range: 4.3 - 5.6% 5.7 - 6.4% - Increased Risk of Developing Diabetes Mellitus >= 6.5% - Consistent with diagnosis of Diabetes Mellitus In the absence of hyperglycemia (i.e. plasma glucose > 200 mg/dL) or classic symptoms of hyperglycemia a repeat measurement of HbA1c should be performed on a separate sample to confirm the diagnosis. Diagnosis and Classification of Diabetes Mellitus, Diabetes Care 2013; 36: Suppl. 1, S67-74 Estimated Average Glucose 113 mg/dL [facility] Comment: Note: The eAG calculation has not been proven valid for women, individuals below 18 years old or above 70 years old, or individuals with hemoglobinopathies. Estimated average glucose (eAG) is calculated from the equation described in: Pedro BASURTO, Barbara J, Young R, et al. ??Translating the A1C assay into estimated average glucose values. ??Diabetes Care 2008:31(8):4406-6007. Additional resources are available on the ADA website (diabetes.org). Blood 11/07/2023 7:47 AM EST 11/07/2023 7:52 AM EST Narrative Resulting Agency Comment Spec In Lab Mercy Amanda MD CHEMISTRY GLORIA LAURA Performing Organization Address City/[facility]/ZIP Co de Phone Number [facility] [place] [address] * Ferritin (11/07/2023 7:47 AM EST) Ferritin 114 6 - 175 ng/mL [facility] Comment: Please note that as of 10/10/2023, the reference intervals for Ferritin have been updated. Blood 11/07/2023 7:47 AM EST 11/07/2023 7:52 AM EST Narrative Resulting Agency Comment Spec In Lab Mercy Amanda MD CHEMISTRY GLORIA LAURA Performing Organization Address [facility] Co de Phone Number [facility] [place] [address] * (ABNORMAL) CMP w/fasting Glucose (11/07/2023 7:47 AM EST) Glucose Fasting 121(H) 65 - 99 mg/dL [facility] Comment: ?Fasting* Glucose Interpretive Criteria Normal ?65-99 mg/dL Impaired Fasting glucose ?100-125 mg/dL Consistent with Diabetes Mellitus ? >or= 126 mg/dL *Fasting is defined as no caloric intake for at least 8 hours In the absence of unequivocal hyperglycemia a plasma glucose value of >or= 126 mg/dL should be repeated on a subsequent day. Diagnosis and Classification of Diabetes Mellitus, Position Statement from the [place] [employer]. ??Diabetes Care, Volume 33, Supplement 1, Nov 2009 Blood Urea Nitrogen 15 8 - 18 mg/dL [facility] Creatinine 0.82 0.70 - 1.20 mg/dL [facility] Sodium 142 135 - 145 mmol/L [facility] Potassium 4.3 3.5 - 5.0 mmol/L [facility] Comment: Please note: ??Patients with WBC >100,000 may have falsely elevated Potassium levels. ??For accurate Potassium quantification in these patients send serum separator tube (gold top) for subsequent determinations. ??Contact the Clinical Chemistry Laboratory if there are any questions. Chloride 105 98 - 107 mmol/L [facility] Carbon Dioxide 25 22 - 31 mmol/L [facility] Anion Gap 12 5 - 15 mmol/L [facility] Calcium 9.3 8.5 - 10.5 mg/dL [facility] Protein, Total 7.0 6.1 - 8.0 g/dL [facility] Albumin 4.3 3.2 - 5.2 g/dL [facility] Aspartate Aminotransferase 27 0 - 30 unit/L [facility] Alanine Aminotransferase 19 0 - 30 unit/L [facility] Alkaline Phosphatase 82 35 - 105 unit/L [facility] Bilirubin, Total <0.2(L) 0.2 - 1.3 mg/dL [facility] Est Glomerular Filtration Rate 89 >=60 mL/min/1. 73 m?? [facility] Comment: This patient's estimated GFR was [...] and symptoms in addition to eGFR. Blood 11/07/2023 7:47 AM EST 11/07/2023 7:52 AM EST Narrative Resulting Agency Comment Spec In Lab Mercy Amanda MD CHEMISTRY GLORIA LAURA [facility] [place] [address] * Hemogram (11/07/2023 7:47 AM EST) White Blood Cell 7.6 4.0 - 9.5 x10(3)/[facility] Red Blood Cell 4.49 4.00 - 5.21 x10(6)/[facility] Hemoglobin 13.4 11.7 - 15.5 g/dL [facility] Hematocrit 39.7 35.7 - 45.8 % [facility] Mean Cell Volume 88.4 82.6 - 94.4 fL [facility] Mean Cell Hemoglobin 29.8 27.1 - 32.0 pg [facility] Mean Cell Hemoglobin Concentration 33.8 31.7 - 35.0 g/dL [facility] Platelet 282 145 - 357 x10(3)/[facility] RDW Standard Deviation 38.6 37.0 - 46.0 fL [facility] RDW coefficient of variation 12.0 11.5 - 14.1 % [facility] Mean Platelet Volume 9.5 7.6 - 12.9 fL [facility] NRBC% auto 0.0 % [facility] NRBC Absolute 0.000 0.000 - 0.000 x10(3)/[facility] Blood 11/07/2023 7:47 AM EST 11/07/2023 7:52 AM EST Narrative Resulting Agency Comment Spec In Lab Mercy Amanda MD HEMATOLOGY ORD ERABLES [facility] [place] [address] documented in this encounter Visit Diagnoses Diagnosis Class 3 severe obesity with serious comorbidity and body mass index (BMI) of 40.0 to 44.9 in adult, unspecified obesity type Insulin resistance Dysmetabolic Syndrome X Post-traumatic stress disorder, unspecified Elevated ferritin Other abnormal blood chemistry Elevated LDL cholesterol level Pure hypercholesterolemia Vitamin D deficiency Unspecified vitamin D deficiency Encounter for pre-bariatric surgery counseling and education documented in this encounter Care Teams Water Treatment Plant Operator Relationship Specialty Start Date End Date Sonido Cordoba PA [address] [place] [address] PCP - General Family Medicine 07/06/20 documented as of this encounter
--- OUTSIDE RECORDS SUMMARY | 2024-10-16 17:37 | XMS_ITS | Encounter Summary ---
Author Organization [facility] [place] [address] Care Team Providers Care Rubber Turner Name Role Phone Sonido Cordoba Primary Care Provider +1- [phone] Encounter Details Date Type Department Care Team (Late st Contact Info) Description 12/10/2023 1:00 PM EST Office Visit Psychiatry [place] [address] Chrystal Metz, PhD [facility] [place] [address] PATIENT NOT SEEN Social History Tobacco Use Types Packs/Day Years [...] Progress Notes * Chrystal Metz, PhD - 12/10/2023 1:00 PM EST This patient was not seen in this encounter. Patient checked in for appointment, but was not in waiting room when provider went to call her name. Provider was able to reach patient by phone and learned that patient had left (see telephone encounter). documented in this encounter Plan of Treatment Upcoming Encounters Date Type Department Care Team (Late st Contact Info) Description 12/31/2024 10:00 AM EST Office [place] [address] Mercy Amanda MD [facility] [address] [facility] [address] 04/01/2025 2:00 PM EDT Office Visit [place] [address] Erum Szymanski MD [facility] [place] [address] documented as of this encounter Goals Goal [...] (would rather have you choose regular bread/ sudanese muffin, etc. - whole wheat if possible- [...] as of this encounter Visit Diagnoses Diagnosis DH PATIENT NOT SEEN documented in this encounter Care Teams Rubber Turner Relationship Specialty Start Date End Date Sonido Cordoba PA [address] [place] [address] PCP - General Family Medicine 07/06/20 documented as of this encounter
--- OUTSIDE RECORDS SUMMARY | 2024-10-16 17:37 | XMS_ITS | Encounter Summary ---
Author Organization [facility] [place] [address] Care Team Providers Care Elementary Secretary Name Role Phone Sonido Cordoba Primary Care Provider [phone]- [phone] Encounter Details Date Type Department Care Team (Late st Contact Info) Description 12/10/2023 12:00 PM EST [place] [id number] Mercy Amanda MD [facility] [place], [place] [id number] Class 3 severe obesity with serious comorbidity and body mass index (BMI) of 45.0 to 49.9 in adult, unspecified obesity type (Primary Dx); [...] Sign Reading Time Taken Comments Blood Pressure 154/84 12/10/2023 12:06 PM EST Pulse 81 12/10/2023 12:06 PM EST Temperature - - Respiratory Rate - - Oxygen Saturation - - Inhaled Oxygen Concentration - - Weight 116.4 kg (256 lb 9.6 oz) 024 12:06 PM EST Height 160.2 cm (5' 3.07) 12/10/2023 1 2:06 PM EST Body Mass Index 45.35 12/10/2023 12:06 PM EST documented in this encounter Progress Notes * Mercy Amanda MD - 12/10/2023 12:00 PM ESTSummary: 12th visit with MD Images from the original note were not included. [facility] [place] Patient Name: Vianney Cordero Date of : 1975 Age: 48 y.o. WANDY Aguilera Thank you for referring Vianney Cordero to the [facility]. I saw her for a follow-up visit today, 12/10/23. Please see changes to care as documented in the assessment and plan. CHIEF COMPLAINT: F/u for treatment of WHO Class 3 / EOSS Stage 2 Obesity defined by initial BMI and comorbidities GERD/Barretts. This is Visit #12 [facility] visit for this 48 y.o. patient. [...] weight 10/08/2023, 246 lbs 12/10/2023, 256 lbs [facility] Team: Priti Skinner RD and Erik Sorenson, Health Feller Operator HPI GREEN light! Needs to call BS for NPW. Recall: B - bowl of multigrain cheerios, lactaid L - grilled cheese D - steak, potatoes, corn Drinking water Behaviors: no issues eating and drinking Taking time to eat meals Eating three meals Protein at each Drinking water - likes Hint Checklist: EGD 05/2023 : Long segment Rodgers's above intact Addie; bx negative for dysplasia [place] 05/2023: WNL Mammo [facility] - in media Pt will get PE/Pap report from [facility] - dropped off - will scan in [...] B/L. AOM HX: NO AOMs covered [place] Medicaid C/I: GB? NO s/p lap CCY NO pancreatitis YES kidney stone - required intervention NO - thyroid CA/MTC NO - kidney issues NO - glaucoma Obesogenic meds: ?Flexeril? COMORBIDITIES ADDRESSED: YAHIR - NO HTN - NO HL - ? FLD - LFTs WNL. 2021 no FLD. Diabetes spectrum - IR (13.6) REVIEW OF LABS/DIAGNOSIS SINCE LAST VISIT Liver Fibrosis Score (Fib 4) was 1.03 at 12/10/2023 12:39 PM Risk of Fibrosis Low Intermediate High NAFLD Less than 1.3 1.3-2.67 Greater than 2.67 Hepatitis C Less than 1.45 1.45-3.25 Greater than 3.25 HIRO Insulin Resistance Calculation Score was 11.35 at 12/10/2023 12:39 PM Preop labs done, WNL [x] I reviewed [...] []Surgery []Culinary []ACT []Monthly Lifestyle Classes Discussion 12/10/23: GREEN light for surgery. All ready for NPW - checklist done, will scan in lastfew items, preop labs done, FBG now 121 and f.insulin 38, so glad we are proceeding. Message sent regarding AOM management before surgery. Message sent to BS as well about readiness for NPW. Will f/rosa me post BS at 8 months or sooner if she wishes. 10/06/2021 7:00 PM [facility] PATHWAY - ADULT Obesity Medicine Activate [...] a priority: - Eggs - Cheese - Serbian yogurt / cottage cheese - meat - fish - nuts/seeds - protein shake or bar Start with the protein, can choose to add other foods (would rather have you choose regular bread/ bahraini muffin, etc. - whole wheat if possible- [...] in order of priority VITAL SIGNS: Vitals: 12/10/23 1206 BP: 154/84 BP Location ([facility]): Right arm Patient Position: Sitting BP Cuff Sizes: Large Adult (32-43 cm) Pulse: 81 Weight: 116.4 kg (256 lb 9.6 oz) Height: 160.2 cm (5' 3.07) Body mass index is 45.35 kg/m??. PHYSICAL EXAM: Gen: Alert and appropriate, NAD. Generalized obesity LABS: Lab Results Component Value Date WBC 7.6 [...] 114 11/07/2023 Lab Results Component Value Date [id number] 11/07/2023 25-OH Vit D Total (ng/mL) [...] time Co-morbidities addressed: GERD Referrals pending: BS for NPW AOM: Metformin XR Phentermine Diagnoses and all orders for this visit: Class 3 severe obesity with serious comorbidity and body mass index (BMI) of 45.0 to 49.9 in adult,unspecified obesity type Post-traumatic stress disorder, unspecified Insulin resistance Elevated ferritin Elevated LDL cholesterol level Encounter for pre-bariatric surgery counseling and education No orders of the defined types were placed in this encounter. Return for Post bariatric surgery f/u in 6-8 months. 1 min chart review 25 min [id number] Visit time 5 min Documentation time I [...] AM EST Office [place] [address] Mercy Amanda MD [facility] [address] 04/01/2025 2:00 PM EDT Office [place] [address] Erum Szymanski MD [facility] [place] [address] documented as of this encounter Goals Goal [...] a priority: - Eggs - Cheese - Serbian yogurt / cottage cheese - meat - fish - nuts/seeds - protein shake or bar Start with the protein, can choose to add other foods (would rather have you choose regular bread/ bahraini muffin, etc. - whole wheat if possible- [...] comorbidity and body mass index (BMI) of 45.0 to 49.9 in adult, unspecified obesity type- Primary Post-traumatic stress disorder, unspecified Insulin resistance Dysmetabolic Syndrome X Elevated ferritin Other abnormal blood chemistry Elevated LDL cholesterol level Pure hypercholesterolemia Encounter for pre-bariatric surgery counseling and education documented in this encounter Care Teams Elementary Secretary Relationship Specialty Start Date End Date Sonido Cordoba [address] [place] [address] PCP - General Family Medicine 07/06/20 documented as of this encounter
--- OUTSIDE RECORDS SUMMARY | 2024-10-16 17:37 | XMS_ITS | Encounter Summary ---
[place] [address] Care Team Providers Care Musical Instrument Supervisor Name Role Phone Sonido Cordoba Primary Care Provider [phone]- [phone] Encounter Details Date Type Department Care Team (Latest Contact Info) Description 11/07/2023 7:30 AM EST Laboratory Appointment Lab [address] [place] [phone] Class 3 severe obesity with serious comorbidity and body mass index (BMI) of 40.0 to 44.9 in adult, unspecified obesity type; Elevated ferritin; Encounter for pre-bariatric surgery counseling and education; Vitamin D deficiency; Elevated LDL cholesterol level; Insulin resistance Social History Tobacco Use Types [...] AM EST Office Visit [facility] at [facility] [place] [address] Mercy Amanda MD [facility] [address] [facility] [address] 04/01/2025 2:00 PM EDT Office Visit [place] [phone] Erum Szymanski MD [facility] [place] [address] documented as of this encounter Goals Goal [...] choices Lifestyle On track(2022 9:48 AM EDT) Pirti Waldron RD Note: Images from the original [...] a priority: - Eggs - Cheese - South African yogurt / cottage cheese - meat - fish - nuts/seeds - protein shake or bar Start with the protein, can choose to add other foods (would rather have you choose regular bread/ bhutanese muffin, etc. - whole wheat if possible- [...] Priority Date/Time Associated Diagnosis Comments PTH Routine 11/07/2023 7:47 AM EST Class 3 severe obesity with serious comorbidity and body mass index (BMI) of 40.0 to 44.9 in adult, unspecified obesity type Encounter for pre-bariatric surgery counseling and education CMP W/FASTING GLUCOSE Routine 11/07/2023 7:47 AM EST Class 3 severe obesity with serious comorbidity and body mass index (BMI) of 40.0 to 44.9 in adult, unspecified obesity type Insulin resistance Elevated ferritin Encounter for pre-bariatric surgery counseling and education HEMOGRAM Routine 11/07/2023 7:47 AM EST Class 3 severe obesity with serious comorbidity and body mass index (BMI) of 40.0 to 44.9 in adult, unspecified obesity type Encounter for pre-bariatric surgery counseling and education VITAMIN B1, WHOLE BLOOD Routine 11/07/2023 7:47 AM EST Class 3 severe obesity with serious comorbidity and body mass index (BMI) of 40.0 to 44.9 in adult, unspecified obesity type Encounter for pre-bariatric surgery counseling and education IRON AND TIBC Routine 11/07/2023 7:47 AM EST Class 3 severe obesity with serious comorbidity and body mass index (BMI) of 40.0 to 44.9 in adult, unspecified obesity type Elevated ferritin Encounter for pre-bariatric surgery counseling and education VITAMIN D, 25-HYDROXY Routine 11/07/2023 7:47 AM EST Class 3 severe obesity with serious comorbidity and body mass index (BMI) of 40.0 to 44.9 in adult, unspecified obesity type Vitamin D deficiency Encounter for pre-bariatric surgery counseling and education INSULIN, TOTAL Routine 11/07/2023 7:47 AM EST Class 3 severe obesity with serious comorbidity and body mass index (BMI) of 40.0 to 44.9 in adult, unspecified obesity type Insulin resistance Encounter for pre-bariatric surgery counseling and education TSH Routine 11/07/2023 7:47 AM EST Class 3 severe obesity with serious comorbidity and body mass index (BMI) of 40.0 to 44.9 in adult, unspecified obesity type Encounter for pre-bariatric surgery counseling and education HEMOGLOBIN A1C Routine 11/07/2023 7:47 AM EST Class 3 severe obesity with serious comorbidity and body mass index (BMI) of 40.0 to 44.9 in adult, unspecified obesity type Insulin resistance Encounter for pre-bariatric surgery counseling and education FOLATE, SERUM Routine 11/07/2023 7:47 AM EST Class 3 severe obesity with serious comorbidity and body mass index (BMI) of 40.0 to 44.9 in adult, unspecified obesity type Encounter for pre-bariatric surgery counseling and education FERRITIN Routine 11/07/2023 7:47 AM EST Class 3 severe obesity with serious comorbidity and body mass index (BMI) of 40.0 to 44.9 in adult, unspecified obesity type Elevated ferritin Encounter for pre-bariatric surgery counseling and education VITAMIN B12 Routine 11/07/2023 7:47 AM EST Class 3 severe obesity with serious comorbidity and body mass index (BMI) of 40.0 to 44.9 in adult, unspecified obesity type Encounter for pre-bariatric surgery counseling and education LIPID PANEL (REFLEX DIRECT LDL) Routine 11/07/2023 7:47 AM EST Class 3 severe obesity with serious comorbidity and body mass index (BMI) of 40.0 to 44.9 in adult, unspecified obesity type Elevated LDL cholesterol level Encounter for pre-bariatric surgery counseling and education documented in this encounter Results * Hemogram (11/07/2023 7:47 AM EST) White Blood Cell 7.6 4.0 - 9.5 x10(3)/[facility] Red Blood Cell 4.49 4.00 - 5.21 x10(6)/[facility] Hemoglobin 13.4 11.7 - 15.5 g/dL [facility] Hematocrit 39.7 35.7 - 45.8 % [facility] Mean Cell Volume 88.4 82.6 - 94.4 fL [facility] Mean Cell Hemoglobin 29.8 27.1 - 32.0 pg [facility] Mean Cell Hemoglobin Concentration 33.8 31.7 - 35.0 g/dL [facility] Platelet 282 145 - 357 x10(3)/[facility] RDW Standard Deviation 38.6 37.0 - 46.0 fL [facility] RDW coefficient of variation 12.0 11.5 - 14.1 % [facility] Mean Platelet Volume 9.5 7.6 - 12.9 fL [facility] NRBC% auto 0.0 % [facility] NRBC Absolute 0.000 0.000 - 0.000 x10(3)/[facility] Blood 11/07/2023 7:47 AM EST 11/07/2023 7:52 AM EST Narrative Resulting Agency Comment Spec In Lab Mercy Amanda MD HEMATOLOGY ORD ERABLES Performing Organization Address City/State/[facility] Co de Phone Number [facility] [place] [address] * (ABNORMAL) CMP w/fasting Glucose (11/07/2023 7:47 AM EST) Glucose Fasting 121(H) 65 - 99 mg/dL [facility] Comment: ?Fasting* Glucose Interpretive Criteria Normal [...] of Diabetes Mellitus, Position Statement from the [place] Diabetes [employer]. ??Diabetes Care, Volume 33, Supplement 1, Nov 2009 Blood Urea Nitrogen 15 8 - 18 mg/dL [facility] Creatinine 0.82 0.70 - 1.20 mg/dL [facility] Sodium 142 135 - 145 mmol/L [facility] Potassium 4.3 3.5 - 5.0 mmol/L [facility] Comment: Please note: ??Patients with WBC >100,000 may have falsely elevated Potassium levels. ??For accurate Potassium quantification in these patients send serum separator tube (gold top) for subsequent determinations. ??Contact the Clinical Chemistry Laboratory if there are any questions. Chloride 105 98 - 107 mmol/L [facility] Carbon Dioxide 25 22 - 31 mmol/L [facility] Anion Gap 12 5 - 15 mmol/L [facility] Calcium 9.3 8.5 - 10.5 mg/dL [facility] Protein, Total 7.0 6.1 - 8.0 g/dL [facility] Albumin 4.3 3.2 - 5.2 g/dL [facility] Aspartate Aminotransferase 27 0 - 30 unit/L [facility] Alanine Aminotransferase 19 0 - 30 unit/L [facility] Alkaline Phosphatase 82 35 - 105 unit/L [facility] Bilirubin, Total <0.2(L) 0.2 - 1.3 mg/dL [facility] Est Glomerular Filtration Rate 89 >=60 mL/min/1. 73 m?? [facility] Comment: This patient's estimated GFR was [...] Narrative Resulting Agency Comment Spec In Lab Meryc Amanda MD CHEMISTRY GLORIA LAURA [facility] [place] [address] * Ferritin (11/07/2023 7:47 AM EST) Ferritin 114 6 - 175 ng/mL [facility] Comment: Please note that as of 10/10/2023, the reference intervals for Ferritin have been updated. Blood 11/07/2023 7:47 AM EST 11/07/2023 7:52 AM EST Narrative Resulting Agency Comment Spec In Lab Mercy Amanda MD CHEMISTRY GLORIA LAURA Performing Organization Address City/[facility]/ZIP Co de Phone Number [facility] [place] [address] * Hemoglobin A1c (11/07/2023 7:47 AM EST) Hemoglobin A1c 5.6 4.3 - 5.6 % [facility] Comment: Reference Range: 4.3 - 5.6% [...] 1, S67-74 Estimated Average Glucose 113 mg/dL [facility] Comment: Note: The eAG calculation has not been proven valid for women, individuals below 18 years old or above 70 years old, or individuals with hemoglobinopathies. Estimated average glucose (eAG) is calculated from the equation described in: Pedro DM, Barbara J, Young R, et al. ??Translating the A1C assay into estimated average glucose values. ??Diabetes Care 2008:31(8):3402-1304. Additional resources are available on the ADA website (diabetes.org). Blood 11/07/2023 7:47 AM EST 11/07/2023 7:52 AM EST Narrative Resulting Agency Comment Spec In Lab Mercy Amanda MD CHEMISTRY GLORIA LAURA Performing Organization Address City/[facility]/ZIP Co de Phone Number [facility] [place] [address] * (ABNORMAL) Insulin, total (11/07/2023 7:47 AM EST) Insulin 38.0(H) 2.6 - 24.9 mcunit/mL [facility] Comment:Reference intervals derived from fasting individuals. Blood 11/07/2023 7:47 AM EST 11/07/2023 7:52 AM EST Narrative Resulting Agency Comment Spec In Lab Mercy Amanda MD CHEMISTRY GLORIA LAURA [facility] [place] [address] * Lipid Panel (Reflex Direct LDL) (11/07/2023 7:47 AM EST) [facility] Signature Cholesterol, Total 218 mg/dL [facility] Comment: Lower Risk: <200 mg/dL Average Risk: 200-239 mg/dL Higher Risk: >fo=447 mg/dL Triglyceride 265 mg/dL [facility] Comment: Average Risk/Lower Risk: <150 mg/dL Borderline High Risk: 150-199 mg/dL High Risk: 200-499 mg/dL Very High Risk: >ev=363 mg/dL HDL Cholesterol 40 mg/dL [facility] Comment: Males: ?? Higher Risk: <40 mg/dL Females: ?? Higher Risk: <50 mg/dL LDL Cholesterol 125 mg/dL [facility] Comment: Lowest Risk: <100 mg/dL Lower Risk: 100-129 mg/dL Borderline High Risk: 130-159 mg/dL High Risk: 160-189 mg/dL Very High Risk: >qh=840 mg/dL Cholesterol/HDL Ratio 5.4 ratio [facility] Lipid Interpretation See Note [facility] Comment: Lipid management should be guided by a patient? s ASCVD risk, goals and preferences. ACC/AHA Guidelines recommend high intensity statin if clinical ASCVD or LDL greater than or equal to 190 mg/dL. http://tinyurl.com/LBV-CVM-Qctnxjjvm Adults aged 40-75 with LDL 70-189 mg/dL should have their 10 year ASCVD risk estimated with the ACC/AHA ASCVD risk risk investigator http://tools.acc.org/RHKPZ-Iail-Rjfjvsplj/ Statin should be discussed if risk greater [...] MD CHEMISTRY GLORIA LAURA Performing Organization Address City/[facility] Co de Phone Number [facility] [place] [address] * TSH (11/07/2023 7:47 AM EST) Thyroid Stimulating Hormone 2.82 0.27 - 4.20 mcIU/mL [facility] Comment: Reference Interval (mcIU/mL): Females: ??First Trimester: 0.23-3.88 ??Second Trimester: 0.22-3.90 ??Third Trimester: 0.44-4.66 Blood 11/07/2023 7:47 AM EST 11/07/2023 7:52 AM EST Narrative Resulting Agency Comment Spec In Lab Mercy Amanda MD CHEMISTRY GLORIA LAURA Performing Organization Address [facility] Co de Phone Number [facility] [place] [address] * Vitamin B12 (11/07/2023 7:47 AM EST) Vitamin B12 428 232 - 1,245 pg/mL [facility] Blood 11/07/2023 7:47 AM EST 11/07/2023 7:52 AM EST Narrative Resulting Agency Comment Spec In Lab Mercy Amanda MD CHEMISTRY GLORIA LAURA Performing Organization Address City/[facility] Co de Phone Number [facility] [place] [address] * Vitamin D, 25-Hydroxy (11/07/2023 7:47 AM EST) Vitamin D Total 25 OH 22 21 - 100 ng/mL [facility] Vit D Interp Insufficient [facility] Blood 11/07/2023 7:47 AM EST 11/07/2023 7:52 AM EST Narrative Resulting Agency Comment Spec In Lab Mercy Amanda MD CHEMISTRY GLORIA LAURA Performing Organization Address [facility] Co de Phone Number [facility] [place] [address] * Vitamin B1, whole blood (11/07/2023 7:47 AM EST) Vit B1 Lvl Wb (MARCH) 179 70 - 180 nmol/L [facility] Comment: ADDITIONAL INFORMATION This test was developed and its performance characteristics determined by [facility] in a manner consistent with CLIA requirements. This test has not been cleared or approved by the U.S. Food and Drug Administration. Test Performed by: [facility] [place] [address] Debit Agent: Valentín Goetz M.D. Ph.D.; CLIA# [id number] Blood 11/07/2023 7:47 AM EST 11/07/2023 12:27 PM EST Narrative Resulting Agency Comment Spec In Lab Mercy Amanda MD LAB SEND OUT O RDERABLES Performing Organization Address City/[facility] Co de Phone Number [facility] [place] [address] * Folate, serum (11/07/2023 7:47 AM EST) Folate 9.4 4.8 - 24.2 ng/mL [facility] Blood 11/07/2023 7:47 AM EST 11/07/2023 7:52 AM EST Narrative Resulting Agency Comment Spec In Lab Mercy Amanda MD CHEMISTRY GLORIA LAURA Performing Organization Address City/[facility]/ZIP Co de Phone Number [facility] [place] [address] * PTH (11/07/2023 7:47 AM EST) Parathyroid Hormone 61 15 - 65 pg/mL [facility] Blood 11/07/2023 7:47 AM EST 11/07/2023 7:52 AM EST Narrative Resulting Agency Comment Spec In Lab Mercy Amanda MD CHEMISTRY GLORIA LAURA Performing Organization Address City/[facility] Co de Phone Number [facility] [place] [address] * Iron and TIBC (11/07/2023 7:47 AM EST) Iron 72 30 - 150 mcg/dL [facility] TIBC 311 250 - 450 mcg/dL [facility] Iron Saturation 23 20 - 50 % [facility] Blood 11/07/2023 7:47 AM EST 11/07/2023 7:52 AM EST Narrative Resulting Agency Comment Spec In Lab Mercy Amanda MD CHEMISTRY GLORIA LAURA Performing Organization Address [facility] Co de Phone Number [facility] [place] [address] documented in this encounter Visit Diagnoses Diagnosis Class 3 severe obesity with serious comorbidity and body mass index (BMI) of 40.0 to 44.9 in adult, unspecified obesity type Elevated ferritin Other abnormal blood chemistry Encounter for pre-bariatric surgery counseling and education Vitamin D deficiency Unspecified vitamin D deficiency Elevated LDL cholesterol level Pure hypercholesterolemia Insulin resistance Dysmetabolic Syndrome X documented in this encounter Care Teams Musical Instrument Supervisor Relationship Specialty Start Date End Date Sonido Cordoba PA [address] [place] [address] PCP - General Family Medicine 07/06/20 documented as of this encounter
--- OUTSIDE RECORDS SUMMARY | 2024-10-16 17:37 | XMS_ITS | Encounter Summary ---
[place] [address] Care Team Providers Care Forensic Document Examiner Name Role Phone Sonido Cordoba Primary Care Provider +1- [phone] Reason for Visit * Reason Onset Date Comments Appointment 10/08/2023 Encounter Details Date Type Department Care Team (Late st Contact Info) Description 10/08/2023 Telephone [place] [address] Mercy Amanda MD [facility] [address] Appointment Social History Tobacco Use Types Packs/Day [...] encounter Miscellaneous Notes * Telephone Encounter - Leann Zafar - 10/08/2023 8:28 AM EST Message: FYI for office. Patient calling today to switch in person appt to TH due to weather. This agent was able to switch appt. Instructions for TH appt given to patient. Ask caller their first and last name and relationship to the patient: Vianney Cordero Best time to call back: anytime Ok to leave a message: yes Ok to send - message: yes Offered Appointment: yes Message: y Call made to secretary receptionist or nurse Y/N n Pager: Y/N n documented in this encounter Plan of Treatment Upcoming Encounters Date Type Department Care Team (Late st Contact Info) Description 12/31/2024 10:00 AM EST Office [place] [address] Mercy Amanda MD [facility] DR [facility] [address] 04/01/2025 2:00 PM EDT Office [place] [phone] Erum Szymanski MD [facility] [place] [address] documented as of this encounter Goals Goal [...] on filedocumented in this encounter Care Teams Forensic Document Examiner Relationship Specialty Start Date End Date Sonido Cordoba PA [address] [place] [address] PCP - General Family Medicine 07/06/20 documented as of this encounter
--- OUTSIDE RECORDS SUMMARY | 2024-10-16 17:37 | XMS_ITS | Encounter Summary ---
[place] [address] Care Team Providers Care Health Center Assistant Name Role Phone Sonido Cordoba Primary Care Provider +1- [phone] Encounter Details Date Type Department Care Team (Late st Contact Info) Description 11/23/2023 2:00 PM EST Office [place] [address] Juliette Lu PsyD [facility] [place] [address] Post-traumatic stress disorder, unspecified Social History Tobacco [...] as of this encounter Progress Notes * Juliette Lu PsyD - 11/23/2023 2:00 PM EST [facility] PSYCHOLOGY FOLLOW UP NOTE [facility] [place] [facility] [address] Dept: [phone] Loc: [phone] 11/21/2023 4:21 PM Vianney Cordero is a 48 y.o. female who was referred for evaluation and preparation for potential bariatric surgery. Vianney was previously evaluated and concerns were raised about bariatric surgery readiness. Vianney was seen for 8 min. minutes. Patient was alone, and was seen Office. RECOMMENDATION BASED ON PSYCHOLOGICAL EVALUATION GREEN LIGHT WITH RECOMMENDATIONS - Based on the information gathered during this assessment and consultation with pt's psychotherapist, Dr. Metz, there are no psychological contraindications with Vianney Cordero proceeding with surgery. Vianney would benefit from the following to assist with preparing for bariatric surgery: Continue engaging in health promoting behaviors Engage in tx The follow up plan is as follows: No [facility] psych f/u necessary; pt is welcome to reach out to [facility] psych if needed in the future. This provider has [facility] messaged pt with light status update. Pt was in agreement with the plan and denied questions or concerns. SUMMARY The decision noted above is based on the following: Vianney has made significant weight loss attempts in the past, but without lasting success. Vianney experienced some mental health problems in the past year. Vianney experienced some mental health problems earlier in life. Vianney is not engaging in problematic eating behaviors. Vianney is knowledgeable about the surgery and related risks. Vianney's motivation for surgery is: good Vianney's social support is: good Vianney is aware of expected surgery weight loss with surgery. Vianney is aware of the habit changes that will need to occur and is actively engaged in changing those now. Vianney does not have a history of adherence/attendance issues. DIAGNOSIS PTSD The above assessment and plan was based on the following information obtained during the appointment. Please note section in blue indicates updated information from the previous evaluation: MENTAL HEALTH UPDATE: Reported working with Dr. Metz is great, having met with her twice, and has scheduled a f/u appointment with her in early December. Stated that they are planning to set goals in tx in upcoming psychotherapy visit. Reported life has been great and awesome. Denied current mental health sxs or concerns. MENTAL HEALTH PROVIDER COMMUNICATION (IF NEEDED) Provider will connect with individual psychotherapist, Chrystal Metz, PhD, after today's visit. Pt was in agreement with this plan. WEIGHT Initial Weight: 233 lbs Weight at previous evaluation: 246 lbs (self-report) Current Weight as of 11/21/2023: lbs (self-report) Weight changes since evaluation: has increased pounds over last 2 mo. HEALTH BEHAVIORS From previous evaluation: 09/14/2023: ETOH: 1 glass of wine / wk (on Sunday after work; not every week); denied weekend use. Ultimately goal and plan to quit completely, denied current barriers or challenges toward accomplishing this goal. 11/21/2023: ETOH: denied current use; ceased use 2 months ago after last bariatric psych visit. The assessment and plan for Vianney Cordero are detailed at the beginning of this report. * Juliette Lu PsyD - 11/23/2023 2:00 PM EST Provider connected with pt's MH provider (Chrystal Metz, PhD) on 11/26/2022, as this pt is preparingfor bariatric surgery. We believe continuity of care is important for patients with co-morbid psychiatric diagnoses. We wanted to hear this provider's thoughts about this pt's mental health, appropriateness for surgery, aswell as any concerns about this pt proceeding with bariatric surgery. Patient Name & : Vianney Cordero, 1975 Dr. Metz began providing care to this pt on 11/07/2023, and they have had 1 visit since. Discussed this pt being recommended trauma tx, but this is not a requirement by the [facility] team. D/t this course of care being limited, Dr. Metz is currently assessing dx (Provisional PTSD dx) and working on a tx plan with this pt. Pt reports and appears to be stable and secure in visits, and this will continue to be assessed in upcoming visits. If it is appropriate for this pt to continue anxiety focused / trauma tx, Dr. Metz plans to continue providing care. To Dr. Metz's knowledge, this pt has not been hospitalized for mental health reasons nor has reported any binging or purging behaviors. No initial reservations about pt proceeding with surgery reported. * Maryann Loo, PhD - 11/23/2023 2:00 PM EST I have reviewed this note and agree with the plan and treatment Maryann Loo, PhD documented in this encounter Plan of Treatment Upcoming Encounters Date Type Department Care Team (Late st Contact Info) Description 12/31/2024 10:00 AM EST Office [place] [address] Mercy Amanda MD [facility] [address] 04/01/2025 2:00 PM EDT Office [place] [phone] Erum Szymanski MD [facility] [place] [address] documented as of this encounter Goals Goal [...] a priority: - Eggs - Cheese - Ukrainian yogurt / cottage cheese - meat - fish - nuts/seeds - protein shake or bar Start with the protein, can choose to add other foods (would rather have you choose regular bread/ armenian muffin, etc. - whole wheat if possible- instead of the muffin or poptart) eating timing guides Lifestyle On track(2022 9:49 AM EDT) Priti Wladron RD Note: Aim for no more than [...] unspecified documented in this encounter Care Teams Health Center Assistant Relationship Specialty Start Date End Date Sonido Cordoba PA [address] [address] PCP - General Family Medicine 07/06/20 documented as of this encounter
--- OUTSIDE RECORDS SUMMARY | 2024-10-16 17:37 | XMS_ITS | Encounter Summary ---
[place] [address] Care Team Providers Care Delinquent Notice Machine Operator Name Role Phone Sonido Cordoba Primary Care Provider +1- [phone] Encounter Details Date Type Department Care Team (Latest Contact Info) Description 01/25/2024 Travel Social History Tobacco Use Types Packs/Day [...] AM EST Office [place] [phone] Mercy Amanda MD [facility] DR [facility] [address] 04/01/2025 2:00 PM EDT Office Visit Gastroenterology at [facility] [place] [address] Erum Szymanski MD [facility] DR [place] [address] documented as of this encounter Goals Goal [...] (would rather have you choose regular bread/ japanese muffin, etc. - whole wheat if possible- [...] Lifestyle On track(2022 9:48 AM EDT) Sunita oTrres RD Note: Eating behaviors to practice prior [...] on filedocumented in this encounter Care Teams Delinquent Notice Machine Operator Relationship Specialty Start Date End Date Sonido Cordoba PA [address] [place] [address] PCP - General Family Medicine 07/06/20 documented as of this encounter
--- OUTSIDE RECORDS SUMMARY | 2024-10-16 17:37 | XMS_ITS | Encounter Summary ---
[place] [address] Care Team Providers Care Plan Rep Name Role Phone Sonido Cordoba Primary Care Provider +1- [phone] Encounter Details Date Type Department Care Team (Late st Contact Info) Description 01/24/2024 Telephone [place] [phone] Juliette Lu PsyD [facility] [place] [address] Social History Tobacco Use Types Packs/Day Years [...] Encounter - Juliette Lu PsyD - 01/24/2024 12:10 PM EDT Called pt to discuss bariatric surgery psych recommendations; pt did not answer and provider LVM. Provider will send eDH message to pt to find best time to connect. documented in this encounter Plan of Treatment Upcoming Encounters Date Type Department Care Team (Late st Contact Info) Description 12/31/2024 10:00 AM EST Office [place] [address] Mercy Amanda MD [facility] [address] [facility] [address] 04/01/2025 2:00 PM EDT Office [place] [phone] Erum Szymanski MD [facility] [place] [address] documented as of this encounter Goals Goal [...] (would rather have you choose regular bread/ pashto muffin, etc. - whole wheat if possible- instead of the muffin or poptart) eating timing guides Lifestyle On track(2022 9:49 AM EDT) Pirti Waldron RD Note: Aim for no more [...] on filedocumented in this encounter Care Teams Plan Rep Relationship Specialty Start Date End Date Sonido Cordoba PA [address] [place] [address] PCP - General Family Medicine 07/06/20 documented as of this encounter
--- OUTSIDE RECORDS SUMMARY | 2024-10-16 17:37 | XMS_ITS | Encounter Summary ---
Author Organization [facility] [place] [address] Care Team Providers Care Director Of Hemophilia Name Role Phone Sonido Cordoba Primary Care Provider +1- [phone] Reason for Visit * Reason Comments Medication Refill Encounter Details Date Type Department Care Team (Late st Contact Info) Description 10/02/2023 Refill [place] [address] Mercy Amanda MD [facility] [address] [facility] [address] Class 3 severe obesity with serious comorbidity [...] AM EST Office [place] [phone] Mercy Amanda MD [facility] [address] [facility] [address] 04/01/2025 2:00 PM EDT Office [place] [address] Erum Szymanski MD [facility] [place] [address] documented as of this encounter Goals Goal [...] a priority: - Eggs - Cheese - Mauritian yogurt / cottage cheese - meat - [...] X documented in this encounter Care Teams Director Of Hemophilia Relationship Specialty Start Date End Date Sonido Cordoba PA [address] [place] [address] PCP - General Family Medicine 07/06/20 documented as of this encounter
--- OUTSIDE RECORDS SUMMARY | 2024-10-16 17:37 | XMS_ITS | Encounter Summary ---
[place] [address] Care Team Providers Care Keypuncher Name Role Phone Sonido Cordoba Primary Care Provider +1- [phone] Encounter Details Date Type Department Care Team (Latest Contact Info) Description 11/07/2023 Travel Social History Tobacco Use Types Packs/Day [...] AM EST Office [place] [phone] Mercy Amanda MD [facility] [address] [facility] [address] 04/01/2025 2:00 PM EDT Office Visit Gastroenterology at [place] [address] Erum Szymanski MD [facility] [place] [address] documented as of this encounter Goals Goal [...] a priority: - Eggs - Cheese - Armenian yogurt / cottage cheese - meat - fish - nuts/seeds - protein shake or bar Start with the protein, can choose to add other foods (would rather have you choose regular bread/ polish muffin, etc. - whole wheat if possible- [...] on filedocumented in this encounter Care Teams Keypuncher Relationship Specialty Start Date End Date Sonido Cordoba PA [address] [place] [address] PCP - General Family Medicine 07/06/20 documented as of this encounter
--- OUTSIDE RECORDS SUMMARY | 2024-10-16 17:37 | XMS_ITS | Encounter Summary ---
Author Organization [facility] [place] [address] Care Team Providers Care Bunch Breaker Name Role Phone Sonido Cordoba Primary Care Provider +1- [phone] Encounter Details Date Type Department Care Team (Late st Contact Info) Description 10/10/2023 Telephone Psychiatry and [place] [address] Chrystal Metz, PhD [facility] [place] [address] Social History Tobacco Use Types Packs/Day Years [...] AM EST Office Visit [place] [address] Mercy Amanda MD [facility] [address] [facility] [address] 04/01/2025 2:00 PM EDT Office Visit Gastroenterology at [facility] [address] Erum Szymanski MD [facility] [place] [address] documented as of this encounter Goals Goal [...] a priority: - Eggs - Cheese - Albanian yogurt / cottage cheese - meat - fish - nuts/seeds - protein shake or bar Start with the protein, can choose to add other foods (would rather have you choose regular bread/ spanish muffin, etc. - whole wheat if possible- [...] on filedocumented in this encounter Care Teams Bunch Breaker Relationship Specialty Start Date End Date Sonido Cordoba PA [address] [place] [address] PCP - General Family Medicine 07/06/20 documented as of this encounter
--- OUTSIDE RECORDS SUMMARY | 2024-10-16 17:37 | XMS_ITS | Encounter Summary ---
Author Organization [facility] [place] [address] Care Team Providers Care Oyster Preparer Name Role Phone Sonido Cordoba Primary Care Provider +1- [phone] Encounter Details Date Type Department Care Team (Late st Contact Info) Description 12/19/2023 Telephone Psychiatry and [place] [address] Jaz Che Social History Tobacco Use Types Packs/Day Years [...] AM EST Office Visit [place] [phone] Mercy Amanda MD [facility] [address] [place] [address] 04/01/2025 2:00 PM EDT Office Visit Gastroenterology at [facility] [place] [phone] Erum Szymanski MD [facility] [place] [address] documented as of this encounter Goals Goal [...] a priority: - Eggs - Cheese - Slovenian yogurt / cottage cheese - meat - fish - nuts/seeds - protein shake or bar Start with the protein, can choose to add other foods (would rather have you choose regular bread/ kiswahili muffin, etc. - whole wheat if possible- instead of the muffin or poptart) eating timing guides Lifestyle On track(2022 9:49 AM EDT) Priti Waldron, KIRT Note: Aim for no more than 5 [...] on filedocumented in this encounter Care Teams Oyster Preparer Relationship Specialty Start Date End Date Sonido Cordoba PA [address] [place] [address] PCP - General Family Medicine 07/06/20 documented as of this encounter
--- OUTSIDE RECORDS SUMMARY | 2024-10-16 17:37 | XMS_ITS | Encounter Summary ---
[place] [address] Care Team Providers Care Dental Assistant Medical Assistant Name Role Phone Sonido Cordoba Primary Care Provider +1- [phone] Encounter Details Date Type Department Care Team (Latest Contact Info) Description 07/25/2023 Travel Social History Tobacco Use Types Packs/Day [...] AM EST Office [place] [phone] Mercy Amanda MD [facility] DR [facility] [address] 04/01/2025 2:00 PM EDT Office Visit Gastroenterology at [facility] [place] [address] Erum Szymanski MD [facility] DR [place]STR[place] [address] documented as of this encounter Goals Goal [...] a priority: - Eggs - Cheese - Croatian yogurt / cottage cheese - meat - [...] on filedocumented in this encounter Care Teams Dental Assistant Medical Assistant Relationship Specialty Start Date End Date Sonido Cordoba PA [address] [place] [address] PCP - General Family Medicine 07/06/20 documented as of this encounter
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
--- OUTSIDE RECORDS SUMMARY | 2024-10-16 17:37 | XMS_ITS | Encounter Summary ---
[place] [address] Care Team Providers Care Director Of Education Name Role Phone Sonido Cordoba Primary Care Provider +1- [phone] Encounter Details Date Type Department Care Team (Late st Contact Info) Description 10/04/2023 [place] [phone] Juliette Lu PsyD [facility] [place] [address] Social History Tobacco Use Types Packs/Day Years [...] Encounter - Juliette Lu PsyD - 10/04/2023 10:02 AM EST Provider and pt communicated via [employer] Visions messages on 10/01/23 and 10/02/23 to find a time to discuss [facility] bariatric surgery f/u visit (from 09/14/23) and [facility] 5D Psychiatry referral. Provider called pt at 10 AM, as planned, and pt stated she was unable to talk at this time. Plan is for provider to call pt back this afternoon (10/04/23) between 1-2:30 PM. Pt was in agreement with this plan and denied questions or concerns. documented in this encounter Plan of Treatment Upcoming Encounters Date Type Department Care Team (Late st Contact Info) Description 12/31/2024 10:00 AM EST [place] [address] Mercy Amanda MD [facility] [place] [address] 04/01/2025 2:00 PM EDT Office [place] [address] Erum Szymanski MD [facility] [address] documented as of this encounter Goals Goal [...] a priority: - Eggs - Cheese - Icelandic yogurt / cottage cheese - meat - fish - nuts/seeds - protein shake or bar Start with the protein, can choose to add other foods (would rather have you choose regular bread/ salvadorean muffin, etc. - whole wheat if possible- [...] on filedocumented in this encounter Care Teams Director Of Education Relationship Specialty Start Date End Date Sonido Cordoba PA [address] [place] [address] PCP - General Family Medicine 07/06/20 documented as of this encounter
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
--- OUTSIDE RECORDS SUMMARY | 2024-10-16 17:38 | XMS_ITS | Encounter Summary ---
Author Organization [place] [address] Care Team Providers Care Pier Hand Name Role Phone Sonido Cordoba Primary Care Provider +1- [phone] Reason for Visit * Reason Comments Medication Refill Encounter Details Date Type Department Care Team (Late st Contact Info) Description 11/28/2022 Refill Weight and Wellness at [address] [phone] Mercy Amanda MD [facility] [address] [place] [address] Class 3 severe obesity with serious comorbidity [...] AM EST Office [place] [phone] Mercy Amanda MD [facility] [address] [place] [address] 04/01/2025 2:00 PM EDT Office [place] [phone] Erum Szymanski MD [facility] [place] [address] documented as of this encounter Goals Goal [...] number on that) breakfast choices Lifestyle On track( 023 9:48 AM EDT) Priti Waldron RD Note: [...] (would rather have you choose regular bread/ finnish muffin, etc. - whole wheat if possible- instead of the muffin or poptart) eating timing guides Lifestyle On track( 023 9:49 AM EDT) Priti Waldron RD Note: [...] groups but that's in order of priority documented as of this encounter Visit Diagnoses Diagnosis Class 3 severe obesity with serious comorbidity and body mass index (BMI) of 40.0 to 44.9 in adult, unspecified obesity type Insulin resistance Dysmetabolic Syndrome X documented in this encounter Care Teams Pier Hand Relationship Specialty Start Date End Date Sonido Cordoba PA [address] [place] [address] PCP - General Family Medicine 07/06/20 documented as of this encounter
--- OUTSIDE RECORDS SUMMARY | 2024-10-16 17:38 | XMS_ITS | Encounter Summary ---
Author Organization [facility] [place] [address] Care Team Providers Care Salon Leader Name Role Phone Sonido Cordoba Primary Care Provider +1- [phone] Encounter Details Date Type Department Care Team (Late st Contact Info) Description 11/15/2022 11:00 AM EST TH Visit (TeleHealth) Weight and Wellness at [address] [phone] Mercy Amanda MD [facility] DR [facility] [address] Class 3 severe obesity with serious comorbidity and body mass index (BMI) of 40.0 to 44.9 in adult, unspecified obesity type; Insulin resistance; Elevated ferritin; Elevated LDL cholesterol level Social History Tobacco Use Types Packs/Day Years [...] - Inhaled Oxygen Concentration - - Weight 105.7 kg (233 lb) 11/15/2022 11:06 AM EST Pt reported Height - - Body Mass Index 41.18 09/08/2022 1:35 PM EDT documented in this encounter Progress Notes * Mercy Amanda MD - 11/15/2022 11:00 AM ESTSummary: 7th visit jenny RIVAS Patient provided verbal consent prior to initiation of this telemedicine encounter and expressed understanding that the telemedicine visit may be billed similar to a clinic visit, pt was seen while via [x] Video [] phone For this video visit, pt is located at: [facility] [place] Patient Name: Vianney Cordero Date of : 1975 Age: 47 y.o. WANDY Aguilera Thank you for referring Vianney Cordero to the [facility]. I saw her for a follow-up visit today, 11/17/22. Please see changes to care as documented in the assessment and plan. CHIEF COMPLAINT: F/u for treatment of WHO Class 3 / EOSS Stage 2 Obesity defined by initial BMI and comorbidities GERD/Barretts. This is Visit #7 [facility] visit for this 47 y.o. patient. Initial visit: 10/06/2021, 217 lbs (22 lbs, 10%) 01/09/2022, 227 lbs + 10 lbs 02/10/2022, 228 lbs +1 lbs 04/21/2022, 227 lbs - 1 lbs 06/25/2022, 219 lbs (-8 lbs, + 2 total) 09/08/2022, 226.8 lbs (+7.8 lbs + 9.8 lbs) 11/15/2022, 233 lbs (+ 6.2 lbs, + 16 lbs) [facility] Team: Priti Skinner RD and Erik Sorenson, Health Catering Sales Manager HPI Things are good. Nothing is new. I gained 10 lbs. Taking Metformin and phentermine. NO ASE. Not sure why she is gaining, not hungry, not overeating. My BF is a very good person, he cooks healthy and we don't each much at all. He is losing weight. Has changed work schedule, working 12 hour shifts, 7-7 and 9-9. Working 4 days a week. Notes mother on Trulicity and losing weight. PILLARS Stress - life is good, back to work, happy again and feeling better after lap kelley. At [facility] and one day a week at [facility]. Sleep - sleeping good, getting 6-7 hours a night Movement - sitting a lot at work, acting as 1:1, 12 hours sitting Nutrition - cut sugar out of her coffee B - egg with sausage and whole grain bread toast L - salad or skips if she cannot get a break D - stuffed peppers OR breakfast for dinner Drinking water, coffee with 1 cream AOM: Currently taking: Metformin 2000 mg, phentermine [...] Less than 1.45 1.45-3.25 Greater than 3.25 [x] I reviewed past / interim records including notes and labs. ONGOING INTERVENTIONS (Topics discussed today in BOLD): For specific behavioral interventions, see goals Nutrition: specific recommendations per RD May benefit from decreasing carbohydrate intake, CHANO/IF may be of benefit - doing well, cutting carbs Behavior: NO CONCERNS Activity: See goals - advancing Barriers: []needs cardiac eval []injury/pain preventing activity right now Stress Management:no concerns Sleep: no concerns Self-monitoring: Food log Pathway: [x]Individual []HLP []Surgery []Culinary []ACT []Monthly Lifestyle Classes Discussion 11/17/22: Current pillars reviewed. Reason for wt gain unclear. Will increase phentermine to BID. Will try for Victoza given insulin resistance, elevated ferritin, ? FLD. Will reconnect with RD to review dietary intake. MD brown/evans [facility] - ADULT 10/06/2021 Obesity Medicine Activate Adult Biobank Decline Goals ??? breakfast choices Continue to eat for the first time when you feel hungry, though consider eating before the car so you can have other options. Consider as many food groups as possible. At breakfast, we want to start with protein as a priority: - Eggs - Cheese - British yogurt / cottage cheese - meat - fish - nuts/seeds - protein shake or bar Start with the protein, can choose to add other foods (would rather have you choose regular bread/ icelandic muffin, etc. - whole wheat if possible- instead of the muffin or poptart) ??? continue to track in an mika Try goal of 1500 Collecting baseline information, can help you make choices The goal is not to eat as few calories as possible, but to find an appropriate amount for your body(and put a number on that) ??? eating timing guides Aim for no more than 5 hours between eating events (no more than 7) Aim to eat 3 times in a day Deli meat or protein shakes/bar - could be something easy at a morning break in your new job, etc. Protein, veggies, fruit/grains - can eat all the food groups but that's in order of priority VITAL SIGNS: Vitals: 11/15/22 1106 Weight: 105.7 kg (233 lb) Body mass index is 41.18 kg/m??. PHYSICAL EXAM: Gen: Alert and appropriate, NAD. Mood and affect appropriate, tearful over 10 lb weight gain but redirectable Generalized obesity LABS: Lab Results Component Value [...] (H) 02/10/2022 Lab Results Component Value Date [id number] 02/10/2022 25-OH Vit D Total (ng/mL) [...] this time Co-morbidities addressed: GERD Referrals pending: None at this time AOM: Metformin XR Phentermine Will try for Victoza + IR, elevated ferritin, ? FLD Factors contributing to decision making: NO hx of pancreatitis, NO Fam or personl hx of medullary thyroid ca, NO hx of kidney stones, NO Hx of glaucoma/regular eye check, Insulin resistance +kidney stones Diagnoses and all orders for this visit: Class 3 severe obesity with serious comorbidity and body mass index (BMI) of 40.0 to 44.9 in adult,unspecified obesity type - Phentermine (Lomaira) 8 mg Tablet; Take 2 tablets by mouth daily. Take 1 tablet in the morning and 1 tablet at 2 pm. Insulin resistance Elevated ferritin Elevated LDL cholesterol level Other orders - liraglutide (VICTOZA) 0.6 mg/0.1 mL (18 mg/3 mL) Pen Injector; Inject 0.6 mg subcutaneously dailyfor 7 days, THEN 1.2 mg daily for 7 days, THEN 1.8 mg daily. No orders of the defined types were placed in this encounter. Return in about 8 weeks (around 01/10/2023) for In person or Zoom, With KIRT rivas. 3 min chart review 30 min [id number] Visit time 5 min Documentation time I [...] AM EST Office [place] [address] Mercy Amanda MD [facility] DR [facility] [address] 04/01/2025 2:00 PM EDT Office Visit [place] [phone] Erum Szymanski MD [facility] [place] [address] documented as of this encounter Goals Goal [...] (would rather have you choose regular bread/ icelandic muffin, etc. - whole wheat if possible- [...] obesity type Insulin resistance Dysmetabolic Syndrome X Elevated ferritin Other abnormal blood chemistry Elevated LDL cholesterol level Pure hypercholesterolemia documented in this encounter Care Teams Salon Leader Relationship Specialty Start Date End Date Sonido Cordoba PA [address] [place] [address] PCP - General Family Medicine 07/06/20 documented as of this encounter
--- OUTSIDE RECORDS SUMMARY | 2024-10-16 17:38 | XMS_ITS | Encounter Summary ---
Author Organization [facility] [place] [address] Care Team Providers Care Seating Upholsterer Name Role Phone Sonido Cordoba Primary Care Provider +1- [phone] Reason for Referral * Psychiatric (Routine) - Closed Specialty Diagnoses / Procedures Referred By Aric madrigal Referred To Contact Psychiatry Diagnoses Post-traumatic stress disorder, unspecified Nuria Jaffe, PhD [facility] [place] [address] [facility] [address] [place] [address] Referral ID Status Reason Start Date Expiration Date V isits Requested Visits Authorized [id number] Closed Consult, Test & Treat 07/11/2023 07/10/2024 1 1 Encounter Details Date Type Department Care Team (Late st Contact Info) Description 07/11/2023 Orders [place] [address] Nuria Jaffe, PhD [facility] [place] [address] Post-traumatic stress disorder, unspecified Social History Tobacco [...] AM EST Office [place] [phone] Mercy Amanda MD [facility] [address] 04/01/2025 2:00 PM EDT Office [place] [phone] Erum Szymanski MD [facility] [place] [address] Scheduled Referrals Name Type Priority Associated Diagnoses [...] On track(2022 9:48 AM EDT) No Priti Siknner RD Note: Images from the original note [...] a priority: - Eggs - Cheese - Cymraes yogurt / cottage cheese - meat - fish - nuts/seeds - protein shake or bar Start with the protein, can choose to add other foods (would rather have you choose regular bread/ nigerian muffin, etc. - whole wheat if possible- [...] unspecified documented in this encounter Care Teams Seating Upholsterer Relationship Specialty Start Date End Date Sonido Cordoba PA [address] [place] [address] PCP - General Family Medicine 07/06/20 documented as of this encounter
--- OUTSIDE RECORDS SUMMARY | 2024-10-16 17:38 | XMS_ITS | Encounter Summary ---
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; Gastroesophageal reflux disease [...] AM EST Office Visit Weight Center at [facility] [place] [address] Mercy Amanda MD [facility] DR [facility] [address] 04/01/2025 2:00 PM EDT Office Visit [place] [address] Erum Szymanski MD [facility] [place] [address] documented as of this encounter Goals Goal [...] on that) breakfast choices Lifestyle On track( 9:48 AM EDT) Priti Waldron RD Note: [...] a priority: - Eggs - Cheese - Citizen [place] yogurt / cottage cheese - meat - fish - nuts/seeds - protein shake or bar Start with the protein, can choose to add other foods (would rather have you choose regular bread/ french muffin, etc. - whole wheat if possible- instead of the muffin or poptart) eating timing guides Lifestyle On track( 023 9:49 AM EDT) Priti Waldron, RD Note: Aim for no more than [...] hemorrhage documented in this encounter Care Teams Green End Man Relationship Specialty Start Date End Date Sonido Cordoba PA [address] [place] [address] PCP - General Family Medicine 07/06/20 documented as of this encounter
--- OUTSIDE RECORDS SUMMARY | 2024-10-16 17:38 | XMS_ITS | Encounter Summary ---
Author Organization [facility] [place] [address] Care Team Providers Care Log Rider Name Role Phone Sonido Cordoba Primary Care Provider +1- [phone] Encounter Details Date Type Department Care Team (Late st Contact Info) Description 05/16/2023 2:15 PM EDT TH Visit (TeleHealth) [place] [address] Sunita Bills, RD [facility] [place] [address] Class 3 severe obesity with body mass index (BMI) of 40.0 to 44.9 in adult, unspecified obesity type, unspecified whether serious comorbidity [...] - Inhaled Oxygen Concentration - - Weight 108 kg (238 lb) 05/16/2023 1:00 PM EDT Height - - Body Mass Index 42.07 03/28/2023 2:27 PM EDT documented in this encounter Patient Instructions * Patient Instructions* Sunita Bills, RD - 05/16/2023 2:15 PM EDT Images from the original note were not included. It was great to chat with you, Vianney. Below are goals discussed today as well as in past visits.Please reach out with a [employer] message if you have any questions or concerns. Sunita Goals bariatric behaviors Eating behaviors to practice [...] (would rather have you choose regular bread/ djiboutian muffin, etc. - whole wheat if possible- [...] but that's in order of priority documented in this encounter Progress Notes * Sunita Bills RD - 05/16/2023 2:15 PM EDT Nutrition Intervention for Weight Management BSP visit with PASCALE Gonzalez 1975 Weight Today: Wt Readings from Last 3 Encounters: 05/16/23 108 kg (238 lb) 04/11/23 109.1 kg (240 lb 8 oz) 03/28/23 108.7 kg (239 lb 11.2 oz) BMI Readings from Last 3 Encounters: 04/11/23 42.51 kg/m?? 03/28/23 42.37 kg/m?? 03/07/23 41.45 kg/m?? Pertinent Meds: Interview: This is Vianney's [address]rd [address] visit. She has been adhering to bariatric behaviors, everything seems to be going well. She has made the changes discussed in the last visit; is focusing on protein, has eliminated juice. Food Tracking: no Typical Dietary Intake: B: carnation instant breakfast w lactaid L: apples w PB, blueberries. PB and crackers. D: cheeseburgers or chicken or meatloaf mashed pot or mac and cheese, corn and green beans, carrots, or peas, broccoli, tried asparagus-didn't like it, encouraged to keep trying new veg. S: Typical Beverages: [] coffee / tea [x] water - (total: [x] plain [] sugar-free additive [] diet soda or other [] regular soda [] Juice or other sugar-sweetened [] Milk [] Alcohol - (How much? Appetite/Hunger: [] Poor appetite r/t [x] Currently well-managed [] Not managed (see interview) Bariatric eating behaviors Checked boxes are currently being met (other notes below in bold): [x] Stop eating at comfortable full point (eating slowly to know, chewing thoroughly) [x] Regular meal pattern, avoid grazing, reasonable snack frequency [x] Plan protein at all meals and snacks, eat protein first [x] Decrease sources of concentrated (added) sugars or high-fat foods [] Track foods in notebook with calories or by using an mika [x] Understand portions and total food consumed [x] Total water intake [x] eating and drinking by 30 minutes on either side [x] Sip rather than gulp [x] Eliminate diet or regular soda prior to surgery [x] Reduce coffee intake down to ~1 cup (caffeine) prior to surgery [x] Reduce alcohol, ideally avoid [] No nicotine (STOP date, if applicable: Activity: [] reviewed current goals [] updated goals Readiness for surgery summary: No further dietary support indicated; dietarily ready to proceed to surgery. Psych eval scheduled for 06/22/23. Barriers: none Nutrition Goals updated today: Goals Addressed This Visit's Progress bariatric behaviors On track Eating behaviors to practice prior to surgery: [...] see FAQ for more details breakfast choices On track Continue to eat for the first time [...] (would rather have you choose regular bread/ djiboutian muffin, etc. - whole wheat if possible- instead of the muffin or pop tart) eating timing guides On track Aim for no more than 5 hours between eating events (no more than 7) Aim to eat 3 times in a day Deli meat or protein shakes/bar - could be something easy at a morning break in your new job, etc. Protein, veggies, fruit/grains - can eat all the food groups but that's in order of priority Handouts provided today: Monitor/Evaluate: [] Needs additional fuv scheduled with this fha underwriter: No follow-ups on file. (OR) [] Currently scheduled for: [] 1st consecutive monthly nutrition visit [] 2nd consecutive monthly nutrition visit [] 3rd consecutive monthly nutrition visit (OR) [x] Patient has met requirement of 3 consecutive monthly nutrition visits Above determined to the best ability of this fha underwriter. Patient will contact bariatric surgery team for any official determination about scheduling and insurance requirements ( ) Thank you, Sunita Bills RD, LD 30 minutes were spent in visit today, including contact with patient, chart review, and documentation documented in this encounter Plan of Treatment Upcoming Encounters Date Type Department Care Team (Late st Contact Info) Description 12/31/2024 10:00 AM EST Office [place] [address] Mercy Amanda MD [facility] [address] [place] [address] 04/01/2025 2:00 PM EDT Office Visit [place] [address] Erum Szymanski MD [facility] [place] [address] documented as of this encounter Goals Goal [...] so you can have other options. Updated 5/3/23: have breakfast before work if possible or [...] (would rather have you choose regular bread/ djiboutian muffin, etc. - whole wheat if possible- [...] Diagnoses Diagnosis Class 3 severe obesity with body mass index (BMI) of 40.0 to 44.9 in adult, unspecified obesity type, unspecified whether serious comorbidity present documented in this encounter Care Teams Log Rider Relationship Specialty Start Date End Date Sonido Cordoba PA [address] [place] [address] PCP - General Family Medicine 07/06/20 documented as of this encounter
--- OUTSIDE RECORDS SUMMARY | 2024-10-16 17:38 | XMS_ITS | Encounter Summary ---
[place] [address] Care Team Providers Care Associate Professor Of Psychology Name Role Phone Sonido Cordoba Primary Care Provider +1- [phone] Encounter Details Date Type Department Care Team (Latest Contact Info) Description 02/26/2023 Travel Social History Tobacco Use Types Packs/Day [...] AM EST Office [place] [address] Mercy Amanda MD [facility] [address] [facility] [address] 04/01/2025 2:00 PM EDT Office Visit Gastroenterology at [facility] [place] [address] Erum Szymanski MD [facility] [place] [address] documented as of this encounter Goals Goal [...] (would rather have you choose regular bread/ greenlandic muffin, etc. - whole wheat if possible- [...] on filedocumented in this encounter Care Teams Associate Professor Of Psychology Relationship Specialty Start Date End Date Sonido Cordoba PA [address] [place] [address] PCP - General Family Medicine 07/06/20 documented as of this encounter
--- OUTSIDE RECORDS SUMMARY | 2024-10-16 17:38 | XMS_ITS | Encounter Summary ---
[place] [address] Care Team Providers Care Pig Machine Supervisor Name Role Phone Sonido Cordoba Primary Care Provider +1- [phone] Reason for Visit * Reason Onset Date Comments Medication Refill 05/09/2023 Encounter Details Date Type Department Care Team (Late st Contact Info) Description 05/09/2023 Refill [place] [address] Viviana Mcneal Class 3 severe obesity with serious comorbidity [...] EST Office Visit [place] [address] Mercy Amanda MD [facility] [address] [facility] [address] 04/01/2025 2:00 PM EDT Office Visit [place] [address] Erum Szymanski MD [facility] [place] [address] documented as of this encounter Goals Goal [...] a priority: - Eggs - Cheese - Czech yogurt / cottage cheese - meat - fish - nuts/seeds - protein shake or bar Start with the protein, can choose to add other foods (would rather have you choose regular bread/ kazakh muffin, etc. - whole wheat if possible- [...] type documented in this encounter Care Teams Pig Machine Supervisor Relationship Specialty Start Date End Date Sonido Cordoba PA [address] [place] [address] PCP - General Family Medicine 07/06/20 documented as of this encounter
--- OUTSIDE RECORDS SUMMARY | 2024-10-16 17:38 | XMS_ITS | Encounter Summary ---
Author Organization [facility] [place] [address] Care Team Providers Care Drupal Developer Name Role Phone Sonido Cordoba Primary Care Provider +1- [phone] Reason for Visit * Reason Comments Medication Refill Encounter Details Date Type Department Care Team (Late st Contact Info) Description 01/21/2023 Refill [place] [address] Mercy Amanda MD [facility] [address] [facility] [address] Class 3 severe obesity with serious comorbidity [...] EST Office [place] [address] Mercy Amanda MD [facility] [address] [facility] [address] 04/01/2025 2:00 PM EDT Office Visit [place] [address] Erum Szymanski MD [facility] [place] [address] documented as of this encounter Goals Goal [...] a priority: - Eggs - Cheese - Trinidadian yogurt / cottage cheese - meat - fish - nuts/seeds - protein shake or bar Start with the protein, can choose to add other foods (would rather have you choose regular bread/ croatian muffin, etc. - whole wheat if possible- instead of the muffin or poptart) eating timing guides Lifestyle On track( 023 9:49 AM EDT) Priti Waldron, KIRT Note: [...] type documented in this encounter Care Teams Drupal Developer Relationship Specialty Start Date End Date Sonido Cordoba PA [address] [place] [address] PCP - General Family Medicine 07/06/20 documented as of this encounter
--- OUTSIDE RECORDS SUMMARY | 2024-10-16 17:38 | XMS_ITS | Encounter Summary ---
[place] [address] Care Team Providers Care Air Traffic Controller Center Name Role Phone Sonido Cordoba Primary Care Provider +1- [phone] Encounter Details Date Type Department Care Team (Latest Contact Info) Description 04/11/2023 Travel Social History Tobacco Use Types Packs/Day [...] AM EST Office [place] [address] Mercy Amanda MD [facility] [address] [facility] [address] 04/01/2025 2:00 PM EDT Office Visit Gastroenterology at [facility] [place] [address] Erum Szymanski MD [facility] [place] [address] documented as of this encounter Goals Goal [...] (would rather have you choose regular bread/ german muffin, etc. - whole wheat if possible- [...] on filedocumented in this encounter Care Teams Air Traffic Controller Center Relationship Specialty Start Date End Date Sonido Cordoba PA [address] [place] [address] PCP - General Family Medicine 07/06/20 documented as of this encounter
--- OUTSIDE RECORDS SUMMARY | 2024-10-16 17:38 | XMS_ITS | Encounter Summary ---
[place] [address] Care Team Providers Care Fast Food Restaurant Manager Name Role Phone Sonido Cordoba Primary Care Provider +1- [phone] Reason for Visit * Reason Onset Date Comments Appointment 01/23/2023 Encounter Details Date Type Department Care Team (Late st Contact Info) Description 01/23/2023 Telephone [place] [address] Viviana Mcneal Appointment Social History Tobacco Use [...] * Telephone Encounter - Viviana Mcneal - 01/23/2023 9:53 AM EDT LVM and sent letter via [employer] portal, please schedule from recall. documented in this encounter Plan of Treatment Upcoming Encounters Date Type Department Care Team (Late st Contact Info) Description 12/31/2024 10:00 AM EST Office Visit [place] [address] Mercy Amanda MD [facility] [address] [place] [address] 04/01/2025 2:00 PM EDT Office Visit [place] [address] Erum Szymanski MD [facility] [place] [address] documented as of this encounter Goals Goal [...] a priority: - Eggs - Cheese - Belarusian yogurt / cottage cheese - meat - fish - nuts/seeds - protein shake or bar Start with the protein, can choose to add other foods (would rather have you choose regular bread/ citizen of [place] muffin, etc. - whole wheat if possible- [...] on filedocumented in this encounter Care Teams Fast Food Restaurant Manager Relationship Specialty Start Date End Date Sonido Cordoba PA [address] [place] [address] PCP - General Family Medicine 07/06/20 documented as of this encounter
--- OUTSIDE RECORDS SUMMARY | 2024-10-16 17:38 | XMS_ITS | Encounter Summary ---
Author Organization [facility] [place] [address] Care Team Providers Care Blind Eyeletter Name Role Phone Sonido Cordoba Primary Care Provider +1- [phone] Reason for Visit * Reason Comments Medication Refill Encounter Details Date Type Department Care Team (Late st Contact Info) Description 07/01/2023 Refill [place] [address] Mercy Amanda MD [facility] [address] [facility] [address] Class 3 severe obesity with serious comorbidity [...] AM EST Office [place] [address] Mercy Amanda MD [facility] [address] [facility] [address] 04/01/2025 2:00 PM EDT Office Visit [place] [address] Erum Szymanski MD [facility] [place] [address] documented as of this encounter Goals Goal [...] a priority: - Eggs - Cheese - Mozambican yogurt / cottage cheese - meat - [...] X documented in this encounter Care Teams Blind Eyeletter Relationship Specialty Start Date End Date Sonido Cordoba PA [address] [place] [address] PCP - General Family Medicine 07/06/20 documented as of this encounter
--- OUTSIDE RECORDS SUMMARY | 2024-10-16 17:38 | XMS_ITS | Encounter Summary ---
Author Organization [facility] [place] [address] Care Team Providers Care Pamphlet Distributor Name Role Phone Sonido Cordoba Primary Care Provider +1- [phone] Reason for Visit * Reason Onset Date Comments Medication Refill 06/14/2023 Encounter Details Date Type Department Care Team (Late st Contact Info) Description 06/14/2023 Refill [place] [address] Mercy Amanda MD [facility] [address] [place] [address] Class 3 severe obesity with serious comorbidity [...] AM EST Office [place] [address] Mercy Amanda MD [facility] [address] [place] [address] 04/01/2025 2:00 PM EDT Office Visit [place] [address] Erum Szymanski MD [facility] [place] [address] documented as of this encounter Goals Goal [...] (would rather have you choose regular bread/ nauruan muffin, etc. - whole wheat if possible- [...] type documented in this encounter Care Teams Pamphlet Distributor Relationship Specialty Start Date End Date Sonido Cordoba PA [address] [place] [address] PCP - General Family Medicine 07/06/20 documented as of this encounter
--- OUTSIDE RECORDS SUMMARY | 2024-10-16 17:38 | XMS_ITS | Encounter Summary ---
[place] [address] Care Team Providers Care Mechanical Engineering Lecturer Name Role Phone Sonido Cordoba Primary Care Provider +1- [phone] Encounter Details Date Type Department Care Team (Late st Contact Info) Description 01/24/2023 Telephone Family Medicine at [facility] [address] [place] [address] Opal Meneses CMA Social History Tobacco Use Types Packs/Day Years [...] encounter Miscellaneous Notes * Telephone Encounter - Brenda Carter CMA - 01/25/2023 7:28 AM EDTSummary: Denied Images from the original note were not included. PA Outcome: PA Denial [place] [address] DENIED: Anna Case/Reference #: [id number] Additional Information from Insurance: * Telephone Encounter - Shilo Jade CCMA - 01/24/2023 4:16 PM EDT Images from the original note were not included. * Telephone Encounter - Opal Meneses CMA - 01/24/2023 3:12 PM EDT Summary: PA Medication Prior Authorization Patient: Vianney Cordero Patient : 1975 Insurance Company: [place] Medicaid Sent via: Fanzy Meyer: [id number] Physician: Mercy Amanda MD Medication Requested: Lomaira 8 mg tablet Frequency/Sig: Take 2 tablets by mouth daily Disp: 60 Refills: 0 Currently taking: yes If yes, how lon04/2022 Diagnosis for this medication: Class 3 severe obesity with serious comorbidity and body mass index (BMI) of 40.0 to 44.9 in adult, unspecified obesity type (E66.01 , Z68.41) Prior medications trialed in this patient: Medication: Phentermine Approx Dates: 04/2022-current Outcome/Adverse Reactions: Inadequate response Medication: Saxenda Approx Dates: 02/2022-01/2023 Outcome/Adverse Reactions: Inadequate response Additional Notes: documented in this encounter Plan of Treatment Upcoming Encounters Date Type Department Care Team (Late st Contact Info) Description 12/31/2024 10:00 AM EST Office [place] [address] Mercy Amanda MD [facility] [address] [facility] [place] [address] 04/01/2025 2:00 PM EDT Office Visit Gastroenterology at [facility] [place] [address] Erum Szymanski MD [facility] [place] [address] documented as of this encounter Goals Goal [...] (would rather have you choose regular bread/ tamazight muffin, etc. - whole wheat if possible- [...] on filedocumented in this encounter Care Teams Mechanical Engineering Lecturer Relationship Specialty Start Date End Date Sonido Cordoba PA [address] [place] [address] PCP - General Family Medicine 07/06/20 documented as of this encounter
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
--- OUTSIDE RECORDS SUMMARY | 2024-10-16 17:38 | XMS_ITS | Encounter Summary ---
[place] [address] Care Team Providers Care Sand Wheeler Name Role Phone Sonido Cordoba Primary Care Provider [phone]- [phone] Reason for Visit * Reason Onset Date Comments Prior Authorization 03/05/2023 Phentermine (Lomaira) 8 mg tablet Encounter Details Date Type Department Care Team (Late st Contact Info) Description 03/05/2023 Telephone [place] [id number] Shilo Jade, COMMERCIAL OR INSTITUTIONAL CLEANER Prior Authorization (Phentermine (Lomaira) 8 mg tablet //) Social History Tobacco Use Types Packs/Day Years [...] encounter Miscellaneous Notes * Telephone Encounter - Nery Gonzales LNA - 03/05/2023 2:25 PM EDTSummary: denial Submitted Date: Submitted Date: 03/05/2023 PA Outcome: PA Denial Medication [place] [address] DENIED: Lomaira Case/Reference #:[id number] Additional Information from Insurance: Excluded from coverage * Telephone Encounter - Shilo Jade CCMA - 03/05/2023 10:51 AM EDT Summary: PA Submitted PA Submitted Submitted Date: Submitted Date: 03/05/2023 Medication Prior Authorization Patient: Vianney Cordero Patient : 1975 Insurance Company: [place] Medicaid Sent via: [employer] Meyer: [id number] Physician: Mercy Amanda MD Medication Requested: Phentermine (Lomaira) 8 mg tablet Frequency/Sig: Take 1 tablet by mouth 2 times daily. Disp: 60 Refills: 0 Currently taking: Yes If yes, how lon04/2022 Diagnosis for this medication: Class 3 severe obesity with serious comorbidity and body mass index (BMI) of 40.0 to 44.9 in adult,unspecified obesity type (E66.01 , Z68.41) Prior medications trialed in this patient: Medication: liraglutide, weight loss, (SAXENDA) 3 mg/0.5 mL (18 mg/3 mL) Pen Injector Approx Dates: 02/2022 - 01/2023 Outcome/Adverse Reactions: Inadequate response Additional Notes: documented in this encounter Plan of Treatment Upcoming Encounters Date Type Department Care Team (Late st Contact Info) Description 12/31/2024 10:00 AM EST Office [place] [address] Mercy Amanda MD [facility] [address] 04/01/2025 2:00 PM EDT Office Visit Gastroenterology at [facility] [place] [address] Erum Szymanski MD [facility] [place] [place] [address] documented as of this encounter Goals Goal [...] a priority: - Eggs - Cheese - Slovak yogurt / cottage cheese - meat - [...] on filedocumented in this encounter Care Teams Sand Wheeler Relationship Specialty Start Date End Date Sonido Cordoba PA [address] [place] [address] PCP - General Family Medicine 07/06/20 documented as of this encounter
--- OUTSIDE RECORDS SUMMARY | 2024-10-16 17:38 | XMS_ITS | Encounter Summary ---
Author Organization [facility] [place] [address] Care Team Providers Care Self Propelled Dredge Operator Name Role Phone Sonido Cordoba Primary Care Provider [phone]- [phone] Encounter Details Date Type Department Care Team (Late st Contact Info) Description 04/11/2023 2:45 PM EDT Office [place] [address] Sunita Bills, RD [facility] [place] [place] [address] Class 3 severe obesity with serious comorbidity [...] - Inhaled Oxygen Concentration - - Weight 109.1 kg (240 lb 8 oz) 04/11/2023 2:56 PM EDT Height - - Body Mass Index 42.51 03/28/2023 2:27 PM EDT documented in this encounter Patient Instructions * Patient Instructions* Sunita Bills, RD - 04/11/2023 2:45 PM EDT Images from the original note were not included. It was great to chat with you, Vianney. Below are goals discussed today as well as in past visits.Please reach out with a [employer] message if you have any questions or [...] (would rather have you choose regular bread/ somali muffin, etc. - whole wheat if possible- [...] Progress Notes * Sunita Bills RD - 04/11/2023 2:45 PM EDT Nutrition Intervention for Weight Management BSP visit with PASCALE Gonzalez 1975 Weight Today: Wt Readings from Last 3 Encounters: 03/28/23 108.7 kg (239 lb 11.2 oz) 03/07/23 106.4 kg (234 lb 8 oz) 02/26/23 105.6 kg (232 lb 12.8 oz) BMI Readings from Last 3 Encounters: 03/28/23 42.37 kg/m?? 03/07/23 41.45 kg/m?? 02/26/23 41.15 kg/m?? Pertinent Meds: metformin Interview: Rennygreg is working on her bariatric behaviors, mainly protein intake. There was some confusion as to protein and weight gain when she saw her BFs protein powder and thought it would make her gain weight. She has switched to whole wheat bread, and discussed eliminating Fruit Punch. She has reduced alcohol, can't remember when she had a drink last. Food Tracking: Will try to start this tracking time. Suggested doing it at the end of the day, if she gets too bust during the day. Typical Dietary Intake: B: ww bread with PB. Sometimes a donut. L: fruit and PB when she's at work. Salad at home. S: Banana D: meat, veg, starch S: Typical Beverages: [] coffee / tea [x] water - (total: [] plain [] sugar-free additive [] diet soda or other [] regular soda [x] Juice or other sugar-sweetened [] Milk [] Alcohol - (How much? Appetite/Hunger: [] Poor appetite r/t [] Currently well-managed [x] Not managed (see interview) Bariatric eating behaviors Checked boxes are currently being met (other notes below in bold): [x] Stop eating at comfortable full point (eating slowly to know, chewing thoroughly) [x] Regular meal pattern, avoid grazing, reasonable snack frequency [] Plan protein at all meals and snacks, eat protein first [] Decrease sources of concentrated (added) sugars or high-fat foods-will eliminate juice moving forward [] Track foods in notebook with calories or by using an mika -will start back tracking [x] Understand portions and total food consumed [x] Total water intake [x] eating and drinking by 30 minutes on either side [x] Sip rather than gulp [x] Eliminate diet or regular soda prior to surgery [x] Reduce coffee intake down to ~1 cup (caffeine) prior to surgery [x] Reduce alcohol, ideally avoid [x] No nicotine (STOP date, if applicable: Activity: [] reviewed current goals [] updated goals Readiness for surgery summary: Needs more dietary support to reach above goals; not ready for transition to surgical team. Needs to work on bar beh more, and continue to adjust food choices. Barriers: some health literacy, misunderstood concepts. Nutrition Goals updated today: Goals Addressed This [...] (would rather have you choose regular bread/ somali muffin, etc. - whole wheat if possible- instead of the muffin or poptart) Handouts provided today: protein, whole vs processed, bar beh Monitor/Evaluate: [] Needs additional fuv scheduled with this remote mortgage underwriter: No follow-ups on file. (OR) [x] Currently scheduled for: [] 1st consecutive monthly nutrition visit [] 2nd consecutive monthly nutrition visit [x] 3rd consecutive monthly nutrition visit (OR) [] Patient has met requirement of 3 consecutive monthly nutrition visits Above determined to the best ability of this remote mortgage underwriter. Patient will contact bariatric surgery team [...] AM EST Office [place] [address] Mercy Amanda MD [facility] [address] [facility] [place] [address] 04/01/2025 2:00 PM EDT Office [place] [phone] Erum Szymanski MD [facility] [place] [address] documented as of this encounter Goals Goal [...] (would rather have you choose regular bread/ somali muffin, etc. - whole wheat if possible- [...] type documented in this encounter Care Teams Self Propelled Dredge Operator Relationship Specialty Start Date End Date Sonido Cordoba PA [address] [place] [address] PCP - General Family Medicine 07/06/20 documented as of this encounter
--- OUTSIDE RECORDS SUMMARY | 2024-10-16 17:38 | XMS_ITS | Encounter Summary ---
[place] [address] Care Team Providers Care Kit Assembler Name Role Phone Sonido Cordoba Primary Care Provider +1- [phone] Encounter Details Date Type Department Care Team (Latest Contact Info) Description 01/19/2023 Travel Social History Tobacco Use Types Packs/Day [...] AM EST Office [place] [phone] Mercy Amanda MD [facility] [address] [facility] [address] 04/01/2025 2:00 PM EDT Office Visit Gastroenterology at [facility] [place] [address] Erum Szymanski MD [facility] [place] [address] documented as of this encounter Goals Goal [...] a priority: - Eggs - Cheese - Tajik yogurt / cottage cheese - meat - fish - nuts/seeds - protein shake or bar Start with the protein, can choose to add other foods (would rather have you choose regular bread/ persian muffin, etc. - whole wheat if possible- [...] on filedocumented in this encounter Care Teams Kit Assembler Relationship Specialty Start Date End Date Sonido Cordoba PA [address] [place] [address] PCP - General Family Medicine 07/06/20 documented as of this encounter
--- OUTSIDE RECORDS SUMMARY | 2024-10-16 17:38 | XMS_ITS | Encounter Summary ---
Author Organization [facility] [place] [address] Care Team Providers Care Sales Assistant Displays Name Role Phone Sonido Cordoba Primary Care Provider +1- [phone] Encounter Details Date Type Department Care Team (Late st Contact Info) Description 03/07/2023 2:45 PM EDT Office [place] [address] Sunita Bills, RD [facility] [place] [address] Class 3 severe obesity with serious comorbidity [...] - Inhaled Oxygen Concentration - - Weight 106.4 kg (234 lb 8 oz) 03/07/2023 2:47 PM EDT Height - - Body Mass Index 41.45 02/26/2023 11:07 AM EDT documented in this encounter Patient Instructions * Patient Instructions* Sunita Bills, RD - 03/07/2023 2:45 PM EDT Images from the original note were not included. It was great to chat with you, Vianney. Below are goals discussed today as well as in past visits.Please reach out with a [employer] message if you have any questions or [...] (would rather have you choose regular bread/ omani muffin, etc. - whole wheat if possible- [...] Progress Notes * Sunita Bills RD - 03/07/2023 2:45 PM EDT Nutrition Intervention for Weight Management Initial RD visit with PASCALE Gonzalez 1975 Weight Today: Wt Readings from Last 3 Encounters: 03/07/23 106.4 kg (234 lb 8 oz) 02/26/23 105.6 kg (232 lb 12.8 oz) 01/19/23 104.7 kg (230 lb 12.8 oz) BMI Readings from Last 3 Encounters: 03/07/23 41.45 kg/m?? 02/26/23 41.15 kg/m?? 01/19/23 40.79 kg/m?? Pertinent Meds: metformin, phentermine Interview: Vianney states her weight has gone up and down for years. She has tried a diet pill, weight came back, tried fasting, weight came back. 3 rao ago, she would walk 10 miles per day and got down to 190 lbs. Recently, she has cut out soda and coffee as she was drinking it was sweetener.Discussed bariatric behaviors with a focus on protein at every meal and snack, reducing alcohol and using MFP or other mika to track intake. Typical Dietary Intake: B: varies: banana in car to work. Home: eggs and toast L: salad-let, claudia, pep, vinaigrette, sometimes chickens or vllirx-[id number]-[id number] and fruit D: chicken or hamburgers and veg and starch S: Typical Beverages: [] coffee / tea [x] water - (total: [x] plain [x] sugar-free additive Trimino a couple per week [] diet soda or other [] regular soda [x] Juice or other sugar-sweetened Sometimes apple juice to take pills 6 oz [] Milk [x] Alcohol - (How much? Once in a while-4 a month Appetite/Hunger: [] Poor appetite r/t [x] Currently well-managed with AOM [] Not managed (see interview) Previous Goals: Goals ??? breakfast choices Continue to eat [...] (would rather have you choose regular bread/ omani muffin, etc. - whole wheat if possible- [...] groups but that's in order of priority Bariatric eating behaviors Checked boxes are currently being met (other notes below in bold): [] Stop eating at comfortable full point (eating slowly to know, chewing thoroughly) [] Regular meal pattern, avoid grazing, reasonable snack frequency [] Plan protein at all meals and snacks, eat protein first [] Decrease sources of concentrated (added) sugars or high-fat foods [] Track foods in notebook with calories or by using an mika [] Understand portions and total food consumed [x] Total water intake [] eating and drinking by 30 minutes on either side [] Sip rather than gulp [x] Eliminate diet or regular soda prior to surgery [x] Reduce coffee intake down to ~1 cup (caffeine) prior to surgery [] Reduce alcohol, ideally avoid [] No nicotine (STOP date, if applicable: Activity: [] reviewed current goals [x] updated goals Barriers: none Nutrition Goals updated today: Goals Addressed This Visit's Progress ??? bariatric behaviors Eating behaviors to practice prior [...] day - see FAQ for more details ??? breakfast choices Continue to eat for [...] (would rather have you choose regular bread/ omani muffin, etc. - whole wheat if possible- instead of the muffin or poptart) Handouts provided today: protein Monitor/Evaluate: [] Needs additional fuv scheduled with this marketing underwriter: No follow-ups on file. (OR) [x] Currently scheduled for: [] 1st consecutive monthly nutrition visit [x] 2nd consecutive monthly nutrition visit [x] 3rd consecutive monthly nutrition visit (OR) [] Patient has met requirement of 3 consecutive monthly nutrition visits Above determined to the best ability of this marketing underwriter. Patient will contact bariatric surgery team [...] AM EST Office [place] [address] Mercy Amanda MD [facility] [address] [facility] [address] 04/01/2025 2:00 PM EDT Office [place] [phone] Erum Szymanski MD [facility] GASTRO[facility] [address] documented as of this encounter Goals Goal [...] (would rather have you choose regular bread/ omani muffin, etc. - whole wheat if possible- [...] type documented in this encounter Care Teams Sales Assistant Displays Relationship Specialty Start Date End Date Sonido Cordoba PA [address] [place] [address] PCP - General Family Medicine 07/06/20 documented as of this encounter
--- OUTSIDE RECORDS SUMMARY | 2024-10-16 17:38 | XMS_ITS | Encounter Summary ---
Author Organization [facility] [place] [address] Care Team Providers Care Material Requirements Worker Name Role Phone Sonido Cordoba Primary Care Provider +1- [phone] Encounter Details Date Type Department Care Team (Late st Contact Info) Description 02/01/2023 Notes [place] [phone] Jena Dowd I, KIRT [facility] [place] [address] Social History Tobacco Use Types Packs/Day Years [...] as of this encounter Progress Notes * Jena Dowd I, RD - 02/01/2023 3:03 PM EDT No Show Pt for New RD visit at [facility] Will need to call for reschedule. Thank you Jena Dowd MS RD LD documented in this encounter Plan of Treatment Upcoming Encounters Date Type Department Care Team (Late st Contact Info) Description 12/31/2024 10:00 AM EST Office [place] [address] Mercy Amanda MD [facility] [address] [facility] [address] 04/01/2025 2:00 PM EDT Office [place] [phone] Erum Szymanski MD [facility] [place] [address] documented as of this encounter Goals Goal [...] (would rather have you choose regular bread/ sami muffin, etc. - whole wheat if possible- [...] on filedocumented in this encounter Care Teams Material Requirements Worker Relationship Specialty Start Date End Date Sonido Cordoba PA [address] [place] [address] PCP - General Family Medicine 07/06/20 documented as of this encounter
--- OUTSIDE RECORDS SUMMARY | 2024-10-16 17:38 | XMS_ITS | Encounter Summary ---
Author Organization [facility] [place] [address] Care Team Providers Care Citrus Picker Name Role Phone Sonido Cordoba Primary Care Provider +1- [phone] Encounter Details Date Type Department Care Team (Latest Contact Info) Description 03/28/2023 2:00 PM EDT Office [place] [id number] Erum Szymanski MD 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; Class 3 severe obesity with serious comorbidity [...] Sign Reading Time Taken Comments Blood Pressure 138/56 03/28/2023 2:27 PM EDT Pulse 82 03/28/2023 2:27 PM EDT Temperature - - Respiratory Rate - - Oxygen Saturation - - Inhaled Oxygen Concentration - - Weight 108.7 kg (239 lb 11.2 oz) 03/28/2023 2:27 PM EDT Height 160.2 cm (5' 3.07) 03/28/2023 2:27 PM ED T Body Mass Index 42.37 03/28/2023 2:27 PM EDT documented in this encounter Patient Instructions * Patient Instructions* Erum Szymanski MD - 03/28/2023 2:00 PM EDT Plan: Agreed we would add EGD to upcoming colonoscopy given ongoing symptoms, Rodgers's, plans for weightloss surgery ENT if persistent hoarseness - please follow-up with your PCP Continue pantoprazole 40mg twice a day 30 min prior to meals Ok to try NSAIDs lowest dose tolerated and pull back if worsening GERD; use voltaren cream, TENS unit For reflux, eat small meals. Avoid fried foods and red sauces. Stay upright for several hours aftereating Diaphragmatic breathing Continue with weight and wellness Follow-up in: 12 months, sooner if needed documented in this encounter Progress Notes * Erum Szymanski MD - 03/28/2023 2:00 PM EDT [facility] Section of Gastroenterology and Hepatology Follow-Up Visit PCP: WANDY Aguilera HPI This is a 47 y.o. female with with obesity following up for GERD and RUQ pain. 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 GI PROBLEMS: 1. GERD with long segment non-dysplastic Rodgers's, h/o Tyesha for paraesophageal hernia: Throat burning, heartburn. ?? Previously failed pepcid, prilosec, gaviscon; tums caused stones but did help heartburn ?? Pantoprazole 40mg BID helpful but response incomplete ?? Had been losing weight 2. H pylori gastritis ?? Completed triple therapy in 2018. Stool testing still positive per report. ?? Re-treated with quadruple rx. Stool testing neg February 2019. 3. Chronic diarrhea 2/2 to lactose intolerance ?? Son with celiac ?? Neg TTG IgA and normal duodenal bx 2017 4. Lactose intolerance 5. Fatty liver ?? Fibroscan F0-1 6. Adenomatous colon polyp (1 in 2018) ?? Mom with CRC > 60 yo ?? Last colonoscopy 2018 7. RUQ pain - had some features of abdominal wall pain; there was a dyspeptic post-prandial component. Worsened and was found to be biliary despite neg ultrasound and HIDA scan. Improved s/p CCY 8. Gas/bloat 9. Belching --> Hiccup: Sx mostly occur in the afternoon, not related to eating, while working. Work is at [employer]. 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 This is the time she is most active (apart from her morning walk when she doesn't have symptoms). Hiccup burps are the most uncomfortable. Associated with epigastric bloating ?? Tried baclofen, made her constipated, did not help the belching but could only tolerate it for aweek ?? Has been on trazodone in the past - too sleepy ?? Had lost some weight, no change Interval follow-up Doing pretty well. Tried weight loss drug - phenteramine. Opted in for surgery. Nutrition appointments, visit with psych all set. Got mammo [place] finally scheduled Weight up Had to work overnight, they needed an DIRT SUPERVISOR overnight last night, thinks this might be why In August had lap CCY RUQ pain - worsened Imaging normal but clinically felt concerned it needed to be removed Guanako Barclay, DO took GB out, no troubles with bowels Hoarseness coming back Occasional heartburn, still daily, but not as bad, depending on what she eats, changing diet Worried and wants to get EGD Whiplash Needing some NSAIDs Low dose helped her one time Has a TENS machine Review of Systems Negative except as above Diagnostic studies: 1. US abd limited, 03/15/16 (RUQ pain, eval for GB disease): There is mild hepatomegaly. The liver parenchyma has a normal echotexture. ??No intra- hepatic or extra-hepatic bile duct dilation. ??Thereis a 0.5cm hypoechoic liver lesion which likely represents a cyst and is unchanged from the prior exam. There are no gallstones and the gallbladder wall??appears normal.There is medullary nephrocalcinosis. ??No hydronephrosis. the differential diagnosis includes: renal tubular acidosis, medullary nephrocalcinosis and any cause of hypercaluria. 2. EGD 09/24/17 (f/u heartburn, Rodgers's): - Normal examined duodenum. Normal stomach. ??Esophageal mucosal changes ??suggestive of long-segment Rodgers's esophagus. Esophagus bx: Specialized metaplastic columnar mucosa consistent with Rodgers's esophagus. No dysplasia is seen. . Normal upper third of esophagus. Recommendation: ??Continue lifestyle modifications??for GERD (light evening meals; low fat dinner; [...] Hep C Ab neg. 9. RUQ US 03/19/19:?Diffusely increased hepatic parenchymal echotexture??with loss of portal triads without suspicious focal lesion with??areas of focal fatty??sparing in keeping with diffuse fattyinfiltration. 5 mm??simple left liver lobe??cyst. Normal gallbladder without sludge nor cholelithiasis. Normal [...] between symptoms of heartburn and acid reflux Patient Active Problem List Diagnosis Code ??? Elbow pain, right M25.521 ??? Dyspepsia R10.13 ??? 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 Hiatal hernia K44.9 ??? Class 3 severe obesity with serious comorbidity and body mass index (BMI) of 40.0 to 44.9 in adult E66.01, Z68.41 ??? Pain in left shoulder M25.512 ??? Right knee pain M25.561 ??? Hx of tonsillectomy Z90.89 ??? History of dilation and curettage Z98.890 ??? History of Tyesha fundoplication 06/2015 Z98.890 ??? Left ankle pain M25.572 ??? Peroneal tendon tear, right, subsequent encounter S86.311D ??? Heartburn R12 ??? Belching R14.2 ??? Fatty liver K76.0 ??? Anxiety F41.9 ??? Depression F32.A ??? Post-traumatic stress disorder, unspecified F43.10 ??? Kidney stone N20.0 ??? Adult BMI 38.0-38.9 kg/sq m Z68.38 ??? Insulin resistance E88.81 ??? Elevated ferritin R79.89 ??? Elevated LDL cholesterol level E78.00 Current Outpatient Medications: ??? Phentermine (Lomaira) 8 mg tablet, Take 1 tablet by mouth 2 times daily., Disp: 60 tablet, Rfl:0 ??? pantoprazole EC (Protonix) [address] tablet, Take 1 tablet by mouth 2 times daily. (30 minutes before meals), Disp: 180 tablet, Rfl: 1 ??? metFORMIN XR (Glucophage XR) 500 mg Tablet Sustained Release 24 hr, Take 4 tablets by mouth daily. Take with dinner., Disp: 360 tablet, Rfl: 0 ??? cyclobenzaprine (Flexeril) 10 mg Tablet, Take 10 mg by mouth 3 times daily as needed for Musclespasms., Disp: , Rfl: ??? acetaminophen (Tylenol) 500 mg Tablet, Take 1,000 mg by mouth every 6 hours as needed for Pain., Disp: , Rfl: ??? meclizine (ANTIVERT) 12.5 mg Tablet, Take 12.5 mg by mouth 3 times daily as needed., Disp: , Rfl: ??? traZODone (DESYREL) 50 mg Tablet, nightly as needed., Disp: , Rfl: 0 Allergies Allergen Reactions ??? Ibuprofen Interacts with protonix PCP said she shouldn't take it ??? Oxycodone Nausea And Vomiting ??? Shellfish Containing Products Past Medical History: Diagnosis Date ??? PTSD (post-traumatic stress disorder) Past Surgical History: Procedure Laterality Date ??? DILATION AND CURETTAGE OF UTERUS 1994 ??? PRO COLONOSCOPY, BIOPSY N/A 08/21/2018 COLONOSCOPY FLEXIBLE, WITH BX (WRVU 3.66) performed by Erum Szymanski MD at [facility] ENDOSCOPY ??? PRO COLONOSCOPY, BIOPSY N/A 09/04/2019 COLONOSCOPY FLEXIBLE, WITH BX (WRVU 3.66) performed by Steve Ji MD at [facility] ENDOSCOPY ??? PRO COLONOSCOPY, DIAGNOSTIC N/A 09/04/2019 COLONOSCOPY, DIAGNOSTIC performed by Steve Ji MD at [facility] ENDOSCOPY ??? PRO COLONOSCOPY, REMV LESN, SNARE N/A 08/21/2018 COLONOSCOPY, POLYPECTOMY, REMOVAL LESION BY SNARE (WRVU 4.67) performed by Erum Szymanski MD at [facility] ENDOSCOPY ? ? PRO CYSTO W URETEROSCOPY &/OR PYELOSCOPY, DX Right 06/01/2015 CYSTOURETEROSCOPY, DIAGNOSTIC performed by Darius Nuñez Jr., MD at [facility] MAIN OR ??? PRO CYSTOSCOPY, INSERT URETERAL STENT Right 06/01/2015 CYSTO, STENT PLACEMENT performed by Darius Nuñez Jr., MD at [facility] MAIN OR ??? PRO LAP, ESOPHAGOGAST FUNDOPLASTY N/A 04/05/2015 LAPAROSCOPIC TYESHA FUNDOPLASTY performed by Valentín Moura MD at [facility] MAIN OR ??? PRO PERCUT DILATN RENAL TRACT Right 06/01/2015 PERCUTANEOUS INTRO GUIDE WIRE TO ACCESS RENAL PELVIS,AND OR URETER, W\DILATION performed by Darius Nuñez Jr., MD at [facility] MAIN OR ??? PRO PERQ NL/PL LITHOTRIPSY SIMPLE UP TO 2 CM 1 LOCATION Right 06/01/2015 NEPHROLITHOTOMY, ([facility]) PERCUTANEOUS performed by Darius Nuñez Jr., MD at [facility] MAIN OR ??? PRO REPAIR PERONEAL TENDONS Right 08/12/2020 PERONEAL TENDON REPAIR (WRVU 7.35) performed by Mani Jefferson MD at [facility] OSC ??? PRO UPPER GI ENDOSCOPY, BIOPSY N/A 01/27/2015 EGD WITH BIOPSY performed by Brandt Barlow MD at [facility] ENDOSCOPY ??? PRO UPPER GI ENDOSCOPY, BIOPSY N/A 02/28/2016 EGD WITH BIOPSY performed by Brandt Barlow MD at [facility] ENDOSCOPY ??? PRO UPPER GI ENDOSCOPY, BIOPSY N/A 09/04/2016 EGD WITH BIOPSY performed by Brandt Barlow MD at [facility] ENDOSCOPY ??? PRO UPPER GI ENDOSCOPY, BIOPSY N/A 09/24/2017 EGD WITH BIOPSY (WRVU 2.49) performed by Brandt Barlow MD at [facility] ENDOSCOPY ??? PRO UPPER GI ENDOSCOPY, BIOPSY N/A 08/21/2018 EGD WITH BIOPSY (WRVU 2.49) performed by Erum Szymanski MD at [facility] ENDOSCOPY ??? PRO UPPER GI ENDOSCOPY, BIOPSY N/A 09/04/2019 UPPER GASTROINTESTINAL ENDOSCOPY,WITH BIOPSY SINGLE OR MULTIPLE (WRVU 2.49) performed by Steve Ji MD at [facility] ENDOSCOPY ??? PRO UPPER GI ENDOSCOPY, BIOPSY N/A 05/24/2021 EGD WITH BIOPSY (WRVU 2.49) performed by Kathy Carnes MD at [facility] ENDOSCOPY ??? PRO UPPER GI ENDOSCOPY, DIAGNOSTIC N/A 09/04/2019 EGD, UPPER GI ENDOSCOPY performed by Steve Ji MD at [facility] ENDOSCOPY ??? TONSILLECTOMY Social History Socioeconomic History ??? Marital status: Spouse name: Not on file ??? Number of children: Not on file ??? Years of education: Not on file ??? Highest education level: Not on file Occupational History ??? Not on file Tobacco Use ??? Smoking status: Former Packs/day: 0.50 Years: 6.00 Pack years: 3.00 Types: Cigarettes Quit date: 01/25/1997 Years since quittin.1 ??? Smokeless tobacco: Never Vaping Use ??? Vaping Use: Never used Substance and Sexual Activity ??? Alcohol use: Not Currently Comment: 1X/quarter ??? Drug use: No ??? Sexual activity: Yes Partners: Male control/protection: Surgical Other Topics Concern ??? Not on file Social History Narrative ??? Not on file Social Determinants of Health Financial Resource Strain: Not on file Food Insecurity: Not on file Transportation Needs: Not on file Physical Activity: Not on file Housing Stability: Not on file Family History Problem Relation Age of Onset ??? Diabetes Mother ??? Diabetes Maternal Grandmother ??? Diabetes Maternal Grandfather Physical Exam Ht 160.2 cm (5' 3.07) Wt 108.7 kg (239 lb 11.2 oz) BMI 42.37 kg/m?? Constitutional: Well appearing, NAD, AAO x 3 PERTINENT LABS AND IMAGING: As noted above Impression: 47 y.o. female with obesity following up for RUQ pain and GERD with a hx of prior TYESHA in 2015 and long segment Rodgers'. S/p CCY doing better, no recurrent RUQ pain On BID PPI has had some breakthrough heartburn and belching/hiccups (hiccup burps). MYOA pH study negative, consistent with non-acid reflux vs reflux hypersensitivity vs functional heartburn. Belching occurs when she's active and is associated with abdominal bloating - suspect some element of increased pressure on the diaphragm and associated dysfunction. More hoarseness lately. Discussed thathoarseness is an atypical manifestation of GERD; alternative etiologies should be explored first and if persistent warrants ENT evaluation. She would like to pursue an EGD (last 2 years ago); counseled that EGD will not examine the throat. Plans for weight loss surgery could certainly help her GERD ([place]) and reduce PPI burden. Plan: ?? Agreed we would add EGD to upcoming colonoscopy given ongoing symptoms, Rodgesr's, plans for weight loss surgery ?? ENT if persistent hoarseness - please follow-up with your PCP ?? Continue pantoprazole 40mg twice a day 30 min prior to meals ?? Ok to try NSAIDs lowest dose tolerated and pull back if worsening GERD; use voltaren cream, TENSunit ?? For reflux, eat small meals. Avoid fried foods and red sauces. Stay upright for several hours after eating ?? Diaphragmatic breathing ?? Continue with weight and wellness Consider ?? pH impedence testing. Then consider trial of neuromodulator (note trazodone mad her too sleepy) vs medication for bile acid reflux (note baclofen caused constipation) based on results Follow-up in: 12 months, sooner if needed TIME SPENT WITH PATIENT Time spent face to face with patient on the day of the encounter: 25 minutes The risks, benefits and alternatives were discussed with the patient who understands and agrees with above. Erum Szymanski MD 03/28/23 Erum Szymanski MD A/C Technicianweight reduction specialist Section of Gastroenterology and Hepatology [email or web address] ([email or web address]) documented in this encounter Plan of Treatment Upcoming Encounters Date Type Department Care Team (Late st Contact Info) Description 12/31/2024 10:00 AM EST Office [place] [address] Mercy Amanda MD [facility] [address] 04/01/2025 2:00 PM EDT Office Visit Gastroenterology at [facility] [place] [address] Erum Szymanski MD [facility] [place] [address] documented as of this encounter Goals Goal [...] a priority: - Eggs - Cheese - [place] Islander yogurt / cottage cheese - meat - fish - nuts/seeds - protein shake or bar Start with the protein, can choose to add other foods (would rather have you choose regular bread/ arabic muffin, etc. - whole wheat if possible- [...] encounter Visit Diagnoses Diagnosis Gastroesophageal reflux disease with esophagitis, unspecified whether hemorrhage 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 Rodgers's esophagus Class 3 severe obesity with serious comorbidity and body mass index (BMI) of 40.0 to 44.9 in adult, unspecified obesity type documented in this encounter Care Teams Citrus Picker Relationship Specialty Start Date End Date Sonido Cordoba PA [address] [place] [address] PCP - General Family Medicine 07/06/20 documented as of this encounter
--- OUTSIDE RECORDS SUMMARY | 2024-10-16 17:38 | XMS_ITS | Encounter Summary ---
Author Organization [facility] [place] [address] Care Team Providers Care Regional Property Manager Name Role Phone Sonido Cordoba Primary Care Provider +1- [phone] Reason for Visit * Reason Onset Date Comments Medication Refill 02/27/2023 Encounter Details Date Type Department Care Team (Late st Contact Info) Description 02/27/2023 [place] [address] Mercy Amanda MD [facility] [address] [facility] [address] Class 3 severe obesity with serious comorbidity [...] AM EST Office [place] [phone] Mercy Amanda MD [facility] [address] [facility] [address] 04/01/2025 2:00 PM EDT Office [place] [phone] Erum Szymanski MD [facility] [place] [address] documented as of this encounter Goals Goal [...] a priority: - Eggs - Cheese - Korean yogurt / cottage cheese - meat - [...] type documented in this encounter Care Teams Regional Property Manager Relationship Specialty Start Date End Date Sonido Cordoba PA [address] [place] [address] PCP - General Family Medicine 07/06/20 documented as of this encounter
--- OUTSIDE RECORDS SUMMARY | 2024-10-16 17:38 | XMS_ITS | Encounter Summary ---
Author [place] [address] Care Team Providers Care Sheet Metal Erector Name Role Phone Sonido Cordoba Primary Care Provider +1- [phone] Encounter Details Date Type Department Care Team (Late st Contact Info) Description 04/23/2023 Telephone [place] [address] Perri Christianson Social History Tobacco Use Types Packs/Day Years [...] encounter Miscellaneous Notes * Telephone Encounter - Perri Christianson - 04/23/2023 8:41 AM EDT Inbound/Outbound: Outbound Spoke to Patient/Left Message: Left message Notes: Outbound call to patient regarding Change in schedule for today, provider needs to have visit done via [facility], asked pt to kofi rtn call to confirm receipt of message Return calls can be handled by: [employer] Dispatcher documented in this encounter Plan of Treatment Upcoming Encounters Date Type Department Care Team (Late st Contact Info) Description 12/31/2024 10:00 AM EST Office [place] [address] Mercy Amanda MD [facility] [address] [facility] [address] 04/01/2025 2:00 PM EDT Office [place] [phone] Erum Szymanski MD [facility] [place] [address] documented as of this encounter Goals Goal [...] a priority: - Eggs - Cheese - Norwegian yogurt / cottage cheese - meat - [...] on filedocumented in this encounter Care Teams Sheet Metal Erector Relationship Specialty Start Date End Date Sonido Cordoba PA [address] [place] [address] PCP - General Family Medicine 07/06/20 documented as of this encounter
--- OUTSIDE RECORDS SUMMARY | 2024-10-16 17:38 | XMS_ITS | Encounter Summary ---
Author Organization Formerly [facility] [place] [address] Care Team Providers Care Clinical Application Specialist Name Role Phone Sonido Cordoba Primary Care Provider +1- [phone] Reason for Referral * Consultation (Routine) - Closed Specialty Diagnoses / Procedures Referred By Aric madrigal Referred To Contact Weight and Wellness Diagnoses Class 3 severe obesity with serious comorbidity and body mass index (BMI) of 40.0 to 44.9 in adult, unspecified obesity type Mercy Amanda MD [facility] [address] [facility] [place] [address] Referral ID Status Reason Start Date Expiration Date V isits Requested Visits Authorized [id number] Closed Consult, Test & Treat 02/26/2023 02/26/2024 1 1 Reason for Visit * Reason Comments Follow-up Weight management Encounter Details Date Type Department Care Team (Late st Contact Info) Description 02/26/2023 11:00 AM EDT Office [place] [address] Mercy Amanda MD [facility] [address] Class 3 severe obesity with serious comorbidity [...] Sign Reading Time Taken Comments Blood Pressure 134/68 02/26/2023 11:07 AM EDT Pulse 83 02/26/2023 11:07 AM EDT Temperature - - Respiratory Rate - - Oxygen Saturation 97% 02/26/2023 11: 07 AM EDT Inhaled Oxygen Concentration - - Weight 105.6 kg (232 lb 12.8 oz) 2022 11:07 AM EDT Height 160.2 cm (5' 3.07) 02/26/2023 1 1:07 AM EDT Body Mass Index 41.15 02/26/2023 11:07 AM EDT documented in this encounter Progress Notes * Mercy Amanda MD - 02/26/2023 11:00 AM EDTSummary: 9th visit with [facility] [place] Patient Name: Vianney Cordero Date of : 1975 Age: 47 y.o. WANDY Aguilera Thank you for referring Vianney Cordero to the [facility]. I saw her for a follow-up visit today, 03/04/23. Please see changes to care as documented in the assessment and plan. CHIEF COMPLAINT: F/u for treatment of WHO Class 3 / EOSS Stage 2 Obesity defined by initial BMI and comorbidities GERD/Barretts. This is Visit #9 [facility] visit for this 47 y.o. patient. [...] lbs (+ 2 lbs, + 15 lbs) [facility] Team: Priti Skinner RD and Erik Sorenson, Health Wall And Floor Tiler HPI Still struggling with weight. Taking phentermine and metformin. Notes strong genetic component, mother had BS - was 500 lbs and now less than me. PILLARS Stress - work is good. Safety barajas good. Sleep - the same, staying with her BF 4-5 days a week - closer to work and gets good sleep. The other days at home. Sleep Apnea Assessment: STOP BANG 11/12 1 point for each S- Snoring - NO T- Tired - NO O- Observed apnea (stopped breathing during sleep) - NO P- Blood Pressure (elevated) NO B- BMI >35 YES A- Age > 50 NO N- Neck Circuference > 15.7 inches NO G- Gender (male) NO Movement - very busy and active. Nutrition - B - eggs and WG toast L - bowl of fruit - apples, berries D - pork chop, mashed potatoes, green beans Drinking - water, cutting back on OJ - start to bother her throat again. AOM: Currently taking: Metformin 2000 mg, phentermine 8 mg with B/L. AOM HX: Saxenda denied - no AOMs covered by [place] Medicaid C/I: GB? NO s/p lap CCY [...] intake, CHANO/IF may be of benefit - no concerns Behavior: NO CONCERNS Activity: See goals - advancing Barriers: []needs cardiac eval []injury/pain preventing activity right now Stress Management:no concerns Sleep: no concerns Self-monitoring: Food log Pathway: [x]Individual []HLP []Surgery []Culinary []ACT []Monthly Lifestyle Classes Discussion 03/04/23: Current pillars reviewed. Support her pursuing BS. Will set up with RD visits and Psych visit as well. Needs to work on Stage 2 paperwork. Continue AOMs and f/u. 10/06/2021 7:00 PM [facility] PATHWAY - ADULT Obesity Medicine [...] (would rather have you choose regular bread/ wolof muffin, etc. - whole wheat if possible- [...] in order of priority VITAL SIGNS: Vitals: 02/26/23 1107 BP: 134/68 BP Location ([facility]): Left arm Patient Position: Sitting BP Cuff Sizes: Large Adult (32-43 cm) Pulse: 83 SpO2: 97% Weight: 105.6 kg (232 lb 12.8 oz) Height: 160.2 cm (5' 3.07) Body mass index is 41.15 kg/m??. PHYSICAL EXAM: Gen: Alert and appropriate, [...] (H) 02/10/2022 Lab Results Component Value Date [id number] 02/10/2022 25-OH Vit D Total (ng/mL) [...] this time Co-morbidities addressed: GERD Referrals pending: [facility] psych - pre bariatric AOM: Metformin XR Phentermine Vianney was seen today for follow-up . Diagnoses and all orders for this visit: Class 3 severe obesity with serious comorbidity and body mass index (BMI) of 40.0 to 44.9 in adult,unspecified obesity type - Amb Referral to [facility] Psych Evaluation Insulin resistance Elevated ferritin Elevated LDL cholesterol level Vitamin D deficiency Orders Placed This Encounter Procedures ??? Amb Referral to [facility] Psych Evaluation Return in about 8 weeks (around 04/23/2023) for In person or Zoom, With [facility]. 1 min chart review 30 min [id number] Visit time 5 min Documentation time I [...] AM EST Office [place] [address] Mercy Amanda MD [facility] [address] 04/01/2025 2:00 PM EDT Office [place] [address] Erum Szymanski MD [facility] [place] [address] Scheduled Referrals Name Type Priority Associated Diagnoses Orde r Schedule Amb Referral to [facility] Psych Evaluation Outpatient Referral Routine Class 3 severe obesity with serious comorbidity and body mass index (BMI) of 40.0 to 44.9 in adult, unspecified obesity type Ordered: 02/26/2023 documented as of this encounter Goals Goal [...] (would rather have you choose regular bread/ wolof muffin, etc. - whole wheat if possible- [...] deficiency documented in this encounter Care Teams Clinical Application Specialist Relationship Specialty Start Date End Date Sonido Cordoba PA [address] [place] [address] PCP - General Family Medicine 07/06/20 documented as of this encounter
--- OUTSIDE RECORDS SUMMARY | 2024-10-16 17:38 | XMS_ITS | Encounter Summary ---
[place] [address] Care Team Providers Care Educational Psychology Teacher Name Role Phone Sonido Cordoba Primary Care Provider +1- [phone] Encounter Details Date Type Department Care Team (Late Contact Info) Description 02/19/2023 4:00 PM EDT Notes [place] [phone] Social History Tobacco Use Types Packs/Day Years [...] as of this encounter Progress Notes * Silva Corbett - 02/19/2023 4:00 PM EDT PATIENT ATTENDED THE INTRO TO BARIATRIC SURGERY ON 02/19/2023 FOR THE WHAT CHEER PROGRAM documented in this encounter Plan of Treatment Upcoming Encounters Date Type Department Care Team (Late st Contact Info) Description 12/31/2024 10:00 AM EST Office [place] [address] Mercy Amanda MD [facility] [address] [facility] [address] 04/01/2025 2:00 PM EDT Office Visit [place]ology [place] [address] Erum Szymanski MD [facility] [place] [address] documented as of this encounter Goals Goal [...] (would rather have you choose regular bread/ italian muffin, etc. - whole wheat if possible- [...] on filedocumented in this encounter Care Teams Educational Psychology Teacher Relationship Specialty Start Date End Date Sonido Cordoba PA [address] [place] [address] PCP - General Family Medicine 07/06/20 documented as of this encounter
--- OUTSIDE RECORDS SUMMARY | 2024-10-16 17:38 | XMS_ITS | Encounter Summary ---
Author Organization [facility] [place] [address] Care Team Providers Care Concrete Building Assembler Name Role Phone Sonido Cordoba Primary Care Provider +1- [phone] Reason for Visit * Reason Comments Medication Refill Encounter Details Date Type Department Care Team (Late st Contact Info) Description 12/30/2022 Refill [place] [address] Mercy Amanda MD [facility] [address] [facility] [address] Class 3 severe obesity with serious comorbidity [...] AM EST Office [place] [phone] Meryc Amanda MD [facility] [address] [facility] [address] 04/01/2025 2:00 PM EDT Office Visit [place] [phone] Erum Szymanski MD [facility] [place] [address] documented as of this encounter Goals Goal [...] (would rather have you choose regular bread/ azerbaijani muffin, etc. - whole wheat if possible- [...] X documented in this encounter Care Teams Concrete Building Assembler Relationship Specialty Start Date End Date Sonido Cordoba PA [address] [place] [address] PCP - General Family Medicine 07/06/20 documented as of this encounter
--- OUTSIDE RECORDS SUMMARY | 2024-10-16 17:38 | XMS_ITS | Encounter Summary ---
Author Organization [facility] [place] [address] Care Team Providers Care Rooter Operator Name Role Phone Sonido Cordoba Primary Care Provider +1- [phone] Reason for Visit * Reason Onset Date Comments Medication Refill 03/30/2023 Encounter Details Date Type Department Care Team (Late st Contact Info) Description 03/30/2023 Ref[place] [address] Mercy Amanda MD [facility] [address] [facility] [address] Class 3 severe obesity with serious comorbidity [...] AM EST Office [place] [phone] Mercy Amanda MD [facility] [address] [facility] [address] 04/01/2025 2:00 PM EDT Office [place] [address] Erum Szymanski MD [facility] [place] [address] documented as of this encounter Goals Goal [...] a priority: - Eggs - Cheese - Hungarian yogurt / cottage cheese - meat - fish - nuts/seeds - protein shake or bar Start with the protein, can choose to add other foods (would rather have you choose regular bread/ costa rican muffin, etc. - whole wheat if possible- [...] type documented in this encounter Care Teams Rooter Operator Relationship Specialty Start Date End Date Sonido Cordoba PA [address] [place] [address] PCP - General Family Medicine 07/06/20 documented as of this encounter
--- OUTSIDE RECORDS SUMMARY | 2024-10-16 17:38 | XMS_ITS | Encounter Summary ---
Author [place] [address] Care Team Providers Care Kiln Furniture Saw Tender Name Role Phone Sonido Cordoba Primary Care Provider +1- [phone] Encounter Details Date Type Department Care Team (Late st Contact Info) Description 11/23/2022 [place]phone [place] [phone] Kezia Preston, RN Social History Tobacco Use Types Packs/Day [...] encounter Miscellaneous Notes * Telephone Encounter - Kezia Preston RN - 11/23/2022 12:43 PM EST Medication Prior Authorization for Weight and Wellness [facility] [address] [place] [address] DENIED: Jeancarlos Case/Reference #: [id number] Additional Information from Insurance: Pt must have DM for approval documented in this encounter Plan of Treatment Upcoming Encounters Date Type Department Care Team (Late st Contact Info) Description 12/31/2024 10:00 AM EST [place] [address] Mercy Amanda MD [facility] [address] [facility] [address] 04/01/2025 2:00 PM EDT Office [place] [phone] Erum Szymanski MD [facility] [place] [address] documented as of this encounter Goals Goal [...] a priority: - Eggs - Cheese - Greenlandic yogurt / cottage cheese - meat - [...] on filedocumented in this encounter Care Teams Kiln Furniture Saw Tender Relationship Specialty Start Date End Date Sonido Cordoba PA [address] [place] [address] PCP - General Family Medicine 07/06/20 documented as of this encounter
--- OUTSIDE RECORDS SUMMARY | 2024-10-16 17:38 | XMS_ITS | Encounter Summary ---
[place] [address] Care Team Providers Care Audio Visual Aids Director Name Role Phone Sonido Cordoba Primary Care Provider +1- [phone] Encounter Details Date Type Department Care Team (Latest Contact Info) Description 06/22/2023 Travel Social History Tobacco Use Types Packs/Day [...] AM EST Office [place] [phone] Mercy Amanda MD [facility] [address] [facility] [address] 04/01/2025 2:00 PM EDT Office Visit Gastroenterology at [facility] [place] [address] Erum Szymanski MD [facility] [place] [address] documented as of this encounter Goals Goal [...] on filedocumented in this encounter Care Teams Audio Visual Aids Director Relationship Specialty Start Date End Date Sonido Cordoba PA [address] [place] [address] PCP - General Family Medicine 07/06/20 documented as of this encounter
--- OUTSIDE RECORDS SUMMARY | 2024-10-16 17:38 | XMS_ITS | Encounter Summary ---
Author Organization [facility] [place] [address] Care Team Providers Care Housekeeping Aid Name Role Phone Sonido Cordoba Primary Care Provider +1- [phone] Encounter Details Date Type Department Care Team (Late st Contact Info) Description 06/01/2023 11:29 AM EDT Anesthesia [place] [address] Kristal Monique MD [facility] [place] [address] Lizbeth Rivera CRNA [facility] [place] [address] Anesthesia Record Procedure Summary Procedure Name Responsible Anesthesiologist Anesthesia Start Time Anesthesia Stop Time EGD WITH BIOPSY (WRVU 2.39) (Trunk) Kristal Monique MD 06/01/23 1129 06/01/23 1218 Events Date Time Event Comment 06/01/2023 1129 AN Verify 1129 Start 1129 An Start Data 1132 An Induction 1134 Anesthesia Ready 1142 Procedure Start 1206 An Data Art NIBP cuff arm r epositioned 1218 an stop data 1218 Recovery or ICU Handoff Radha ent care was transferred to the destination unit staff after review of the patient's medical history, current anesthetic/surgical status and plan, according to the Provider Handoff Checklist. 1218 Stop 1234 Meds Name Total Propofol 130 mg Propofol INF 766.8 mg lactated ringers infusion 700 mL * Agents Name O2 Air N2O O2 Auxiliary Flowmeter 1 * Blood No blood administrations on file. Lines, Drains, and Airways Type Details Placement Removal (RETIRED) Peripheral IV Line - Single Lumen 06/01/23; 1022; metacarpal vein (top of hand), right; 22 gauge; putorti; LDA not present upon assessment; 05/29/24; 0645 06/01/23 1022 by Brenda Laureano RN 05/29/24 0645 by Barb Baker RN documented in this encounter Social History Tobacco [...] OR Notes * Anesthesia Postprocedure Evaluation - Kristal Monique MD - 06/01/2023 12:34 PM EDT Department of Anesthesiology Post-procedure Note Patient: Vianney Cordero Procedure Summary Date: 06/01/23 Room / Location: [facility] ENDO 2 / [facility] ENDOSCOPY Anesthesia Start: 1129 Anesthesia Stop: 1218 Procedures: EGD WITH BIOPSY (WRVU 2.39) (Trunk) COLONOSCOPY,SCREENING (WRVU 3.26) (Trunk) Diagnosis: (txtwbkyro-[id number]-Htwstku gerd, hoarseness, upcoming weight loss surgery per dr. szymanski) Surgeons: Steve Ji MD Responsible Provider: Kristal Monique MD Anesthesia Type: MAC ASA Status: 2 All Anesthesia Providers: Anesthesiologist: Kristal Monique MD MANUFACTURING MILLWRIGHT: Lizbeth Rivera CRNA Vitals Value Taken Time BP 119/57 06/01/23 1230 Temp Pulse Resp 17 06/01/23 1230 SpO2 99 % 06/01/23 1234 Pain Level 0 06/01/23 1230 Vitals shown include unvalidated device data. Patient Location: PACU/[facility] Level of Consciousness: Awake and Alert Pain Management: Satisfactory Analgesia PONV: None Cardiovascular Status: At Baseline and Hemodynamically Stable Respiratory Status: At Baseline and Room Air Postoperative Fluid Status: Intravascular EUvolemia Possible Anesthetic Complications: NONE apparent at time of evaluation Final Primary Anesthesia Type: MAC (The anesthetic type performed was the same as planned.) Comments: KRISTAL MONIQUE MD * Anesthesia Preprocedure Evaluation - Kristal Monique MD - 06/01/2023 12:32 PM EDT Pre-Anesthesia Evaluation for: Vianney Jeremie Vargheseell a 47 y.o. female. 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 03/29/2023 Gastroesophageal reflux disease with esophagitis 03/29/2023 S/P laparoscopic cholecystectomy 03/28/2023 Insulin resistance 11/15/2022 Elevated ferritin 11/15/2022 Elevated LDL cholesterol level 11/15/2022 Fatty liver 10/06/2021 Anxiety 10/06/2021 Depression 10/06/2021 Post-traumatic stress disorder, unspecified 10/06/2021 Kidney stone 10/06/2021 Adult BMI 38.0-38.9 kg/sq m 10/06/2021 Heartburn 06/18/2021 Belching 06/18/2021 Peroneal tendon tear, right, subsequent encounter 05/04/2020 Left ankle pain 10/26/2017 Hx of tonsillectomy 08/01/2015 History of dilation and curettage 08/01/2015 History of Tyesha fundoplication 06/201508/01/2015 Pain in left shoulder 07/30/2015 Right knee pain 07/30/2015 Class 3 severe obesity with serious comorbidity and body mass index (BMI) of 40.0 to 44.9 in adult 04/05/2015 Ulnar neuropathy at elbow of right upper extremity 04/02/2015 Hiatal hernia 04/02/2015 Dyspepsia 12/28/2014 Elbow pain, right 08/27/2013 Past Medical History: Diagnosis Date PTSD (post-traumatic stress disorder) Past Surgical History: Procedure Laterality Date DILATION AND CURETTAGE OF UTERUS 1994 PRO COLONOSCOPY, BIOPSY N/A 08/21/2018 COLONOSCOPY FLEXIBLE, WITH BX (WRVU 3.66) performed by Erum Szymanski MD at [facility] ENDOSCOPY PRO COLONOSCOPY, BIOPSY N/A 09/04/2019 COLONOSCOPY FLEXIBLE, WITH BX (WRVU 3.66) performed by Steve Ji MD at [facility] ENDOSCOPY PRO COLONOSCOPY, DIAGNOSTIC N/A 09/04/2019 COLONOSCOPY, DIAGNOSTIC performed by Steve Ji MD at [facility] ENDOSCOPY PRO COLONOSCOPY, REMV LESN, SNARE N/A 08/21/2018 COLONOSCOPY, POLYPECTOMY, REMOVAL LESION BY SNARE (WRVU 4.67) performed by Erum Szymanski MD at [facility] ENDOSCOPY PRO CYSTO W URETEROSCOPY &/OR PYELOSCOPY, DX Right 06/01/2015 CYSTOURETEROSCOPY, DIAGNOSTIC performed by Darius Nuñez Jr., MD at [facility] MAIN OR PRO CYSTOSCOPY, INSERT URETERAL STENT Right 06/01/2015 CYSTO, STENT PLACEMENT performed by Darius Nuñez Jr., MD at [facility] MAIN OR PRO LAP, ESOPHAGOGAST FUNDOPLASTY N/A 04/05/2015 LAPAROSCOPIC TYESHA FUNDOPLASTY performed by Valentín Moura MD at [facility] MAIN OR PRO PERCUT DILATN RENAL TRACT Right 06/01/2015 PERCUTANEOUS INTRO GUIDE WIRE TO ACCESS RENAL PELVIS,AND OR URETER, W\DILATION performed by Darius Nuñez Jr., MD at [facility] MAIN OR PRO PERQ NL/PL LITHOTRIPSY SIMPLE UP TO 2 CM 1 LOCATION Right 06/01/2015 NEPHROLITHOTOMY, ([facility]) PERCUTANEOUS performed by Darius Nuñez Jr., MD at [facility] MAIN OR PRO REPAIR PERONEAL TENDONS Right 08/12/2020 PERONEAL TENDON REPAIR (WRVU 7.35) performed by Mani Jefferson MD at [facility] OSC PRO UPPER GI ENDOSCOPY, BIOPSY N/A 01/27/2015 EGD WITH BIOPSY performed by Brandt Barlow MD at [facility] ENDOSCOPY PRO UPPER GI ENDOSCOPY, BIOPSY N/A 02/28/2016 EGD WITH BIOPSY performed by Brandt Barlow MD at [facility] ENDOSCOPY PRO UPPER GI ENDOSCOPY, BIOPSY N/A 09/04/2016 EGD WITH BIOPSY performed by Brandt Barlow MD at [facility] ENDOSCOPY PRO UPPER GI ENDOSCOPY, BIOPSY N/A 09/24/2017 EGD WITH BIOPSY (WRVU 2.49) performed by Brandt Barlow MD at [facility] ENDOSCOPY PRO UPPER GI ENDOSCOPY, BIOPSY N/A 08/21/2018 EGD WITH BIOPSY (WRVU 2.49) performed by Erum Szymanski MD at [facility] ENDOSCOPY PRO UPPER GI ENDOSCOPY, BIOPSY N/A 09/04/2019 UPPER GASTROINTESTINAL ENDOSCOPY,WITH BIOPSY SINGLE OR MULTIPLE (WRVU 2.49) performed by Steve Ji MD at [facility] ENDOSCOPY PRO UPPER GI ENDOSCOPY, BIOPSY N/A 05/24/2021 EGD WITH BIOPSY (WRVU 2.49) performed by Kathy Carnes MD at [facility] ENDOSCOPY PRO UPPER GI ENDOSCOPY, DIAGNOSTIC N/A 09/04/2019 EGD, UPPER GI ENDOSCOPY performed by Steve Ji MD at [facility] ENDOSCOPY TONSILLECTOMY Social History Tobacco Use Smoking status: Former Packs/day: 0.50 Years: 6.00 Pack years: 3.00 Types: Cigarettes Quit date: 01/25/1997 Years since quittin.3 Smokeless tobacco: Never Substance Use Topics Alcohol use: Not Currently Comment: 1X/quarter Social History Substance and Sexual Activity Drug Use No Allergies Allergen Reactions Ibuprofen Interacts with protonix PCP said she shouldn't take it Ketchup Rash Oxycodone Nausea And Vomiting Shellfish Containing Products Medications: MAR and/or home medications have been reviewed. Physical Exam: Preprocedure Vitals Current as of 06/01/23 1129 BP: 149/85 Pulse: 82 Resp: 18 SpO2: 98 Temp: 36.3 ??C (97.3 ??F) Height: Weight: BMI: IBW: Last edited 06/01/23 1005 by BP Airway Assessment: Mallampati: II TM distance: >3 FB Neck ROM: full Cardiovascular Assessment: system normal Pulmonary Assessment: pulmonary exam normal Dental Assessment: - normal exam Misc Assessment: Patient is wearing No contact(s). IV access: Peripheral line Last Filed Perioperative Cognitive Screening None Anesthesia Plan: ASA 2 MAC, with a(n) intravenous induction 47 year old female for EGD/colo NPO No anesthesia problems in the past GERD Potential weight loss surgery in the future History of colonic polyp Plan MAC/Propofol Region - Other Informed Consent: Anesthetic plan and risks discussed with patient. Plan discussed with MANUFACTURING MILLWRIGHT. Anesthesia Screening documented in this encounter Plan of Treatment Upcoming Encounters Date Type Department Care Team (Late st Contact Info) Description 12/31/2024 10:00 AM EST Office [place] [address] Mercy Amanda MD [facility] [place] [address] 04/01/2025 2:00 PM EDT Office [place] [address] Erum Szymanski MD [facility] [place] [address] documented as of this encounter Goals Goal [...] (would rather have you choose regular bread/ kyrgyz muffin, etc. - whole wheat if possible- [...] MAR Action Action Date Dose Rate Site lactated ringers infusion 100 mL/hr, Intravenous, CONTINUOUS, Starting on Sun06/01/23 at 1030, Until Sun06/01/23 at 1531, Endoscopy (Day of Procedure) Restarted 06/01/2023 11:32 AM EDT New Bag 06/01/2023 11:29 AM EDT 100 mL/hr New Bag 06/01/2023 10:22 AM EDT 100 mL/hr 100 mL/hr propofoL (Diprivan) (10 mg/mL) infusion Intravenous, CONTINUOUS PRN, Starting on Sun06/01/23 at 1133, Until Sun06/01/23 at 1218, Anesthesia Intra-op, Routine Rate/Dose Change 06/01/2023 12:06 PM EDT 100 mcg/kg/min 64.8 mL/hr New Bag 06/01/2023 11:33 AM EDT 200 mcg/kg/min 129.6 mL /hr propofoL (Diprivan) 10 mg/mL bolus injection (Anesthesia) Intravenous, PRN, Starting on Sun06/01/23 at 1132, Until Sun06/01/23 at 1218, Anesthesia Intra-op Given 06/01/2023 11:43 AM EDT 20 mg Given 06/01/2023 11:42 AM EDT 30 mg Given 06/01/2023 11:33 AM EDT 30 mg documented in this encounter Care Teams Housekeeping Aid Relationship Specialty Start Date End Date Sonido Cordoba PA [address] [place] [address] PCP - General Family Medicine 07/06/20 documented as of this encounter
--- OUTSIDE RECORDS SUMMARY | 2024-10-16 17:38 | XMS_ITS | Encounter Summary ---
Author Organization [facility] [place] [address] Care Team Providers Care Optometry Teacher Name Role Phone Sonido Cordoba Primary Care Provider +1- [phone] Encounter Details Date Type Department Care Team (Late st Contact Info) Description 12/29/2022 Orders Only Occupational [place] [phone] Chinyere Galindo APRN [facility] [place] [address] Social History Tobacco Use Types Packs/Day Years [...] AM EST Office Visit [place] [phone] Mercy Amanda MD [facility] DR [facility] [address] 04/01/2025 2:00 PM EDT Office Visit Gastroenterology at [facility] [place] [address] Erum Szymanski MD [facility] [place] [address] documented as of this encounter Goals Goal [...] a priority: - Eggs - Cheese - [place]ican yogurt / cottage cheese - meat [...] of priority documented as of this encounter Procedures Procedure Name Priority Date/Time Associated Diagnosis Comments QUANTIFERON-TB GOLD Routine 12/29/2022 1 0:03 AM EST documented in this encounter Results * QuantiFERON-TB Gold (12/29/2022 10:03 AM EST) Quantiferon Nil 0.018 IU/mL [facility] QFT TB Ag1-Nil 0.025 IU/mL [facility] QFT TB Ag2-Nil 0.044 IU/mL [facility] Quantiferon Mitogen-Nil 9.982 IU/mL [facility] Quantiferon-TB Gold Negative Negative [facility] Quantiferon Tb Interp M. tuberculosis infection NOT likely A negative specimen should have a TB1 Ag minus Nil value and TB2 Ag minus Nil value of less than 0.35 IU/mL OR a TB1 Ag minus Nil or TB2 Ag minus Nil value greater than or equal to 0.35 IU/mL AND a TB Ag minus Nil value from the same tube of less than 25% of the Nil value. A negative specimen must also have a mitogen minus Nil value greater than or equal to 0.5 IU/mL. A negative QFT-Plus result does not preclude the possibility of M. tuberculosis infection. False negative results can occur due to stage of infection (specimen obtained prior to the development of immune response), co-morbid conditions which affect immune function, or other immunological factors. [facility] Blood Venous Draw / Unknown 12/29/2022 10:03 AM EST 01/01/2023 7:25 AM EST Narrative Resulting Agency Comment Spec In Lab Chinyere Galindo [facility] CHEMISTR[facility] ORDERABLES [facility] [place] [address] documented in this encounter Visit Diagnoses Not on filedocumented in this encounter Care Teams Optometry Teacher Relationship Specialty Start Date End Date Sonido Cordoba PA [address] [place] [address] PCP - General Family Medicine 07/06/20 documented as of this encounter
--- OUTSIDE RECORDS SUMMARY | 2024-10-16 17:38 | XMS_ITS | Encounter Summary ---
[place] [address] Care Team Providers Care Sales Engineer Engineered Products Name Role Phone Sonido Cordoba Primary Care Provider +1- [phone] Encounter Details Date Type Department Care Team (Latest Contact Info) Description 12/29/2022 Travel Social History Tobacco Use Types Packs/Day [...] AM EST Office [place] [phone] Mercy Amanda MD [facility] [address] [facility] [address] 04/01/2025 2:00 PM EDT Office Visit Gastroenterology at [facility] [address] Erum Szymanski MD [facility] [place] [address] documented as of this encounter Goals Goal [...] a priority: - Eggs - Cheese - Irish yogurt / cottage cheese - meat - [...] on filedocumented in this encounter Care Teams Sales Engineer Engineered Products Relationship Specialty Start Date End Date Sonido Cordoba PA [address] [place] [address] PCP - General Family Medicine 07/06/20 documented as of this encounter
--- OUTSIDE RECORDS SUMMARY | 2024-10-16 17:38 | XMS_ITS | Encounter Summary ---
[place] [address] Care Team Providers Care Line Camera Operator Name Role Phone Sonido Cordoba Primary Care Provider +1- [phone] Encounter Details Date Type Department Care Team (Late st Contact Info) Description 02/28/2023 Telephone [place] [address] Erasmo Bui Social History Tobacco Use Types Packs/Day Years [...] encounter Miscellaneous Notes * Telephone Encounter - Erasmo Bui - 02/28/2023 11:18 AM EDT Viannye Cordero [id number] Diagnosis/Indication: 3 year Please review patient chart to confirm if previous Endoscopy procedure was performed within system. If yes, take note of Anesthesia type used. If previous procedure found, and with MAC/propofol Anesthesia support was used, schedule this procedure with Anesthesia and skip the Anesthesia portion of questions. If not performed within DH system, not performed at all, or performed with IVCS, ask Anesthesia questions. SCHEDULING QUESTIONS (ask all patient these questions) 1. Have you ever had a/an Colonoscopy before? Yes: Date 08/17/19 If yes, did you have any problems with the procedure (such as waking up during the procedure, pain or difficulties afterwards, etc.)? No What type of sedation was used: General Anesthesia 2. Do you take any blood thinners or have you been diagnosed with a bleeding disorder that increases your risk of bleeding with procedures? No 3. Do you have a Pacemaker or Defibrillator device? If yes, send pool message to Cardiology with patient information and date or procedure. No 4. Are you a diabetic? If yes, call PCP/managing provider to discuss use of prep and any questions or concerns related to. No 5. Do you take any iron supplements or vitamins that contain iron? No 6. Do you have a preference regarding the gender of your provider? No ANESTHESIA QUESTIONS (YES to any question, please book with Anesthesia support) 7. Have you ever been diagnosed with Pulmonary Hypertension and/or Congential Heart Disease? No 8. Have you been diagnosed with A-Fib (atrial fibrillation) that is NOT being well controled with medications? No 9. Have you ever had an allergic or adverse reaction to Fentanyl or Versed? No 10. Have you had a problem with sedation or anesthesia? (Waking up during procedure, extreme confusion after, etc.) No 11. Do you have a diagnosis of Obstructive Sleep Apnea that requires the use of a c-pap machine? No 12. Do you use an oxygen tank at home? No 13. Do you use a rescue inhaler more than twice per day? (COPD, severe asthma) No 14. Do you experience breathing problems when you lay flat for a period of time? No 15. Do you take prescription narcotic pain medications, including suboxone or methodone? No SCHEDULING CONFIRMATIONS: Please note any and all parts of your conversation with the patient here. 16. We offer all new patients an opportunity to have an appointment with one of our associate care providers to learn more about your upcoming procedure, ask questions and get answers. These appointments are offered via telehealth. Would you be interested in scheduling this appointment? (Only ask if NEW referral patient; skip this question if GI provider ordered the procedure.) No 17. Is there any other information or concerns you would like to us to share with your care team inrelation to your upcoming scheduled procedure? No 18. You must have a responsible green party who will drive you to your procedure, stay on campus for the entire duration of your procedure, and drive you home from your procedure. Who will likely be your electric screw driver operator for the procedure? *Please Verify the height and weight, and adjust if height and/or weight have changed* Estimated body mass index is 41.15 kg/m?? as calculated from the following: Height as of 02/26/23: 160.2 cm (5' 3.07). Weight as of 02/26/23: 105.6 kg (232 lb 12.8 oz). Age:47 y.o. documented in this encounter Plan of Treatment Upcoming Encounters Date Type Department Care Team (Late st Contact Info) Description 12/31/2024 10:00 AM EST Office [place] [address] Mercy Amanda MD [facility] [address] [facility] [place] [address] 04/01/2025 2:00 PM EDT Office [place] [address] Erum Szymanski MD [facility] [address] documented as of this encounter Goals Goal [...] On track( 023 9:48 AM EDT) Priti Waldron, KIRT Note: Images from the original note were [...] (would rather have you choose regular bread/ iraqi muffin, etc. - whole wheat if possible- [...] on filedocumented in this encounter Care Teams Line Camera Operator Relationship Specialty Start Date End Date Sonido Cordoba PA [address] [place] [address] PCP - General Family Medicine 07/06/20 documented as of this encounter
--- OUTSIDE RECORDS SUMMARY | 2024-10-16 17:38 | XMS_ITS | Encounter Summary ---
Author Organization 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 Name Role Phone Sonido Cordoba Primary Care Provider [phone]- [phone] Encounter Details Date Type Department Care Team (Late st Contact Info) Description 06/01/2023 10:30 AM EDT - 06/01/2023 11:30 AM EDT [place] [id number] Steve Ji MD [facility] [place] [address] EGD WITH BIOPSY (WRVU 2.39) Social History Tobacco Use Types Packs/Day Years [...] Sign Reading Time Taken Comments Blood Pressure 149/85 06/01/2023 10:05 AM EDT Pulse 82 06/01/2023 10:05 AM EDT Temperature 36.3 ??C (97.3 ??F) 06/01/2023 10:05 AM E DT Respiratory Rate 18 06/01/2023 10:05 AM EDT Oxygen Saturation 98% 06/01/2023 10:05 AM EDT Inhaled Oxygen Concentration - - Weight - - Height - - Body Mass Index - - documented in this encounter Discharge Instructions * Discharge Instructions* Merry Locke RN - 06/01/2023 12:16 PM EDT Upper GI Endoscopy: What to Expect at Home Your Recovery You will be able to go home after your doctor or nurse checks to make sure you are not having any problems. You may have to stay overnight if you had treatment during the test. You may have a sore throat fora day or two after the test. This care sheet gives you a general idea about what to expect after the test. How can you care for yourself at home? Activity Rest when you feel tired. You can do your normal activities when it feels okay to do so. Diet Follow your doctor's directions for eating. Unless your doctor has told you not to, drink plenty of fluids. This helps to replace the fluids that were lost during the prep. Do not drink alcohol. Medicines Your doctor will tell you if and when you can restart your medicines. He or she will also give you instructions about taking any new medicines. If you take blood thinners, such as warfarin (Coumadin), clopidogrel (Plavix), or aspirin, be sure to talk to your doctor. He or she will tell you if and when to start taking those medicines again. Make sure that you understand exactly what your doctor wants you to do. If polyps were removed or a biopsy was done during the test, your doctor may tell you not to take aspirin or other anti-inflammatory medicines for a few days. These include ibuprofen (Advil, Motrin) and naproxen (Aleve). If you have a sore throat the day after the procedure, use an ptjf-oof-iyiyraq spray to numb your throat. Sucking on throat lozenges and gargling with warm salt water may also help relieve your symptoms. Other instructions For your safety, do not drive or operate machinery until the medicine wears off and you can think clearly. Your doctor may tell you not to drive or operate machinery until the day after your test. Do not sign legal documents or make major decisions until the medicine wears off and you can think clearly. The anesthesia can make it hard for you to fully understand what you are agreeing to. Additional Information for Sedation Patients For patients who received sedation: You may have received medications before and/or during your procedure which effects your judgement and reaction time. Do not drive, operate machinery, drink alcoholic beverages or make important decisions for 24 hours. Be careful on stairs as you may be unsteady on your feet. You may eat a regular diet as tolerated. Do not smoke if you are alone. IV site: Slight redness or tenderness is normal, you can use a warm compress if you would like. If tenderness and/or redness increase or if foul drainage occurs, please contact your Doctor. Please call [phone] before 8pm Mon-Fri with problems, questions or concerns. If you call after 8pm or on weekends, call the Hospital at [phone] and ask to speak to the Auto Mechanic Apprentice affirmative action specialist and the tinsel machine operator will contact that person for you. When should you call for help? Call [phone] anytime you think you may need emergency care. For example, call if: You passed out (lost consciousness). You pass maroon or bloody stools. You have trouble breathing. Call your doctor now or seek immediate medical care if: You have pain that does not get better after you take pain medicine. You are sick to your stomach or cannot drink fluids. You have new or worse belly pain. You have blood in your stools. You have a fever. You cannot pass stools or gas. Watch closely for changes in your health, and be sure to contact your doctor if you have any problems. Where can you learn more? [facility] View your After Visit Summary and more online at [email or web address] If you would like to provide feedback about your hospital experience, please call the Office of Patient and Family Relations at . If you have received this After Visit Summary in error, please immediately return it in person to the department, or notify the [facility] Privacy Office by calling toll free at between the hours of 8AM and 5PM to arrange for our retrieval of the documents at no cost to you. Content Version: 12.2 ?? 4302-8357 [employer]. Care instructions adapted under license by [facility]. If you have questions about a medical condition or this instruction, always ask your healthcare professional. [employer] disclaims any warranty or liability for your use of this information. Colonoscopy: What to Expect at Home Your Recovery Your doctor will talk to you about when you will need your next colonoscopy. Your doctor can help you decide how often you need to be checked. This will depend on the results of your test and your risk for colorectal cancer. After the test, you may be bloated or have gas pains. You may need to pass gas. If a biopsy was done or a polyp was removed, you may have streaks of blood in your stool (feces) for a few days. Problems such as heavy rectal bleeding may not occur until several weeks after the test. This isn't common. But it can happen after polyps are removed. This care sheet gives you a general idea about how long it will take for you to recover. But each person recovers at a different pace. Follow the steps below to get better as quickly as possible. How can you care for yourself at home? Activity Rest when you feel tired. You can do your normal activities when it feels okay to do so. Diet Follow your doctor's directions for eating. Unless your doctor has told you not to, drink plenty of fluids. This helps to replace the fluids that were lost during the colon prep. Do not drink alcohol. Medicines Your doctor will tell you if and when you can restart your medicines. He or she will also give you instructions about taking any new medicines. If you take blood thinners, such as warfarin (Coumadin), clopidogrel (Plavix), or aspirin, be sure to talk to your doctor. He or she will tell you if and when to start taking those medicines again. Make sure that you understand exactly what your doctor wants you to do. If polyps were removed or a biopsy was done during the test, your doctor may tell you not to take aspirin or other anti-inflammatory medicines for a few days. These include ibuprofen (Advil, Motrin) and naproxen (Aleve). Other instructions For your safety, do not drive or operate machinery until the medicine wears off and you can think clearly. Your doctor may tell you not to drive or operate machinery until the day after your test. Do not sign legal documents or make major decisions until the medicine wears off and you can think clearly. The anesthesia can make it hard for you to fully understand what you are agreeing to. Additional Information for Sedation Patients For patients who received sedation: You may have received medications before and/or during your procedure which effects your judgement and reaction time. Do not drive, operate machinery, drink alcoholic beverages or make important decisions for 24 hours. Be careful on stairs as you may be unsteady on your feet. You may eat a regular diet as tolerated. Do not smoke if you are alone. IV site: Slight redness or tenderness is normal, you can use a warm compress if you would like. If tenderness and/or redness increase or if foul drainage occurs, please contact your Doctor. Please call [phone] before 8pm Mon-Fri with problems, questions or concerns. If you call after 8pm or on weekends, call the Hospital at [phone] and ask to speak to the Auto Mechanic Apprentice affirmative action specialist and the tinsel machine operator will contact that person for you. When should you call for help? Call [phone] anytime you think you may need emergency care. For example, call if: You passed out (lost consciousness). You pass maroon or bloody stools. You have trouble breathing. Call your doctor now or seek immediate medical care if: You have pain that does not get better after you take pain medicine. You are sick to your stomach or cannot drink fluids. You have new or worse belly pain. You have blood in your stools. You have a fever. You cannot pass stools or gas. Watch closely for changes in your health, and be sure to contact your doctor if you have any problems. Where can you learn more? [facility] View your After Visit Summary and more online at [email or web address] If you would like to provide feedback about your hospital experience, please call the Office of Patient and Family Relations at . If you have received this After Visit Summary in error, please immediately return it in person to the department, or notify the [facility] Privacy Office by calling toll free at between the hours of 8AM and 5PM to arrange for our retrieval of the documents at no cost to you. Content Version: 12.2 ?? 1520-8733 [employer]. Care instructions adapted under license by [facility]. If you have questions about a medical condition or this instruction, always ask your healthcare professional. [employer] disclaims any warranty or liability for your use of this information. Colonoscopy: What to Expect at Home Your Recovery Your doctor will talk to you about when you will need your next colonoscopy. Your doctor can help you decide how often you need to be checked. This will depend on the results of your test and your risk for colorectal cancer. After the test, you may be bloated or have gas pains. You may need to pass gas. If a biopsy was done or a polyp was removed, you may have streaks of blood in your stool (feces) for a few days. Problems such as heavy rectal bleeding may not occur until several weeks after the test. This isn't common. But it can happen after polyps are removed. This care sheet gives you a general idea about how long it will take for you to recover. But each person recovers at a different pace. Follow the steps below to get better as quickly as possible. How can you care for yourself at home? Activity Rest when you feel tired. You can do your normal activities when it feels okay to do so. Diet Follow your doctor's directions for eating. Unless your doctor has told you not to, drink plenty of fluids. This helps to replace the fluids that were lost during the colon prep. Do not drink alcohol. Medicines Your doctor will tell you if and when you can restart your medicines. He or she will also give you instructions about taking any new medicines. If you take blood thinners, such as warfarin (Coumadin), clopidogrel (Plavix), or aspirin, be sure to talk to your doctor. He or she will tell you if and when to start taking those medicines again. Make sure that you understand exactly what your doctor wants you to do. If polyps were removed or a biopsy was done during the test, your doctor may tell you not to take aspirin or other anti-inflammatory medicines for a few days. These include ibuprofen (Advil, Motrin) and naproxen (Aleve). Other instructions For your safety, do not drive or operate machinery until the medicine wears off and you can think clearly. Your doctor may tell you not to drive or operate machinery until the day after your test. Do not sign legal documents or make major decisions until the medicine wears off and you can think clearly. The anesthesia can make it hard for you to fully understand what you are agreeing to. Additional Information for Sedation Patients For patients who received sedation: You may have received medications before and/or during your procedure which effects your judgement and reaction time. Do not drive, operate machinery, drink alcoholic beverages or make important decisions for 24 hours. Be careful on stairs as you may be unsteady on your feet. You may eat a regular diet as tolerated. Do not smoke if you are alone. IV site: Slight redness or tenderness is normal, you can use a warm compress if you would like. If tenderness and/or redness increase or if foul drainage occurs, please contact your Doctor. Please call [phone] before 8pm Mon-Fri with problems, questions or concerns. If you call after 8pm or on weekends, call the Hospital at [phone] and ask to speak to the Auto Mechanic Apprentice affirmative action specialist and the tinsel machine operator will contact that person for you. When should you call for help? Call [phone] anytime you think you may need emergency care. For example, call if: You passed out (lost consciousness). You pass maroon or bloody stools. You have trouble breathing. Call your doctor now or seek immediate medical care if: You have pain that does not get better after you take pain medicine. You are sick to your stomach or cannot drink fluids. You have new or worse belly pain. You have blood in your stools. You have a fever. You cannot pass stools or gas. Watch closely for changes in your health, and be sure to contact your doctor if you have any problems. Where can you learn more? [facility] View your After Visit Summary and more online at [email or web address] If you would like to provide feedback about your hospital experience, please call the Office of Patient and Family Relations at . If you have received this After Visit Summary in error, please immediately return it in person to the department, or notify the [facility] Privacy Office by calling toll free at between the hours of 8AM and 5PM to arrange for our retrieval of the documents at no cost to you. Content Version: 12.2 ?? 6699-6201 [employer]. Care instructions adapted under license by [facility]. If you have questions about a medical condition or this instruction, always ask your healthcare professional. [employer] disclaims any warranty or liability for your use of this information. documented in this encounter Medications at Time of Discharge Medication Sig Dispensed Refills Start Date End Date albuteroL (Ventolin HFA) 90 mcg/actuation inhaler (HFA) Inhale 2 puff as directed every four to six hours as needed 10/21/2021 cyclobenzaprine (Flexeril) 10 mg Tablet Take 10 [...] by mouth 2 times daily. 60 tablet 05/11/2023 06/14/2023 metFORMIN XR (Glucophage XR) 500 mg ER 24 hr tabletIndications:Class 3 severe obesity with serious comorbidity and body mass index (BMI) of 40.0 to 44.9 in adult, unspecified obesity type,Insulin resistance Take 4 tablets by mouth daily with dinner. 360 tablet 04/03/2023 07/02/2023 pantoprazole EC (Protonix) [address] tabletIndications:[place] tt's esophagus without dysplasia,Gastroesophag eal reflux disease with esophagitis, unspecified whether hemorrhage Take 1 tablet by mouth 2 times daily. (30 minutes before meals) 180 tablet 1 01/17/2023 11/13/2023 acetaminophen (Tylenol) 500 mg Tablet Take 1,000 mg by mouth every 6 hours as needed for Pain. 05/30/2024 traZODone (DESYREL) 50 mg Tablet nightly as needed. 0 02/08/2016 4 documented as of this encounter H&P Notes * Steve Ji MD - 06/01/2023 10:51 AM EDT Patient Name: Vianney Cordero Patient Age: 47 y.o. 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 Hiatal hernia K44.9 Class 3 severe obesity with serious comorbidity and body mass index (BMI) of 40.0 to 44.9 in adult E66.01, Z68.41 Pain in left shoulder M25.512 Right knee pain M25.561 Hx of tonsillectomy Z90.89 History of dilation and curettage Z98.890 History of Addie fundoplication 06/2015 Z98.890 Left ankle pain M25.572 Peroneal tendon tear, right, subsequent encounter S86.311D Heartburn R12 Belching R14.2 Fatty liver K76.0 Anxiety F41.9 Depression F32.A Post-traumatic stress disorder, unspecified F43.10 Kidney stone N20.0 Adult BMI 38.0-38.9 kg/sq m Z68.38 Insulin resistance E88.81 Elevated ferritin R79.89 Elevated LDL cholesterol level E78.00 S/P laparoscopic cholecystectomy Z90.49 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 No changes Exam: Patient Vitals for the past 24 hrs: Temp Pulse Resp BP SpO2 O2 Device 06/01/23 1005 36.3 ??C (97.3 ??F) 82 18 149/85 98 % RA GEN: NAD, AAOX3 HEENT: NC/AT dryMM, anicteric Chest: CTAB Heart: RRR, nl s1, s2 Abdomen: normal bowel sounds, soft, non tender Assessment and Plan: Proceed with EGD: Colonoscopy: ASA Grade: ASA 3 - Patient with moderate systemic disease with functional limitations Mallampati: II (soft palate, uvula, fauces visible) Sedation plan: MAC Risks and benefits of the procedure were discussed with the patient. Risks discussed including bleeding, infection, reaction to anesthesia, perforation or other intraabdominal trauma, pancreatitis (if applicable), missing a cancer (if applicable) and/or other unforseen complication. Informed Consent signed by patient (or public utilities sales representative). documented in this encounter Plan of Treatment Upcoming Encounters Date Type Department Care Team (Late st Contact Info) Description 12/31/2024 10:00 AM EST Office [place] [address] Mercy Amanda MD [facility] [address] [facility] [address] 04/01/2025 2:00 PM EDT Office [place] [address] Erum Szymanski MD [facility] [place] [address] documented as of this encounter Goals Goal [...] Procedure Name Priority Date/Time Associated Diagnosis Comments SPECIMEN TO PATHOLOGY Routine 06/01/2023 12:02 PM EDT SPECIMEN TO PATHOLOGY Routine 06/01/2023 12:02 PM EDT SPECIMEN TO PATHOLOGY Routine 06/01/2023 12:02 PM EDT SPECIMEN TO PATHOLOGY Routine 06/01/2023 12:02 PM EDT SURGICAL PATHOLOGY REPORT Routine 06/01/2023 11:47 AM EDT Colonoscopy, Diagnostic ([id number]) 06/01/2023 11:36 AM EDT nslwbiavx-ixv-Ctijh ng gerd, hoarseness, upcoming weight loss surgery per dr. szymanski Upper Gi Endoscopy, Biopsy ([id number]) 06/01/2023 11:36 AM EDT dxolprmee-mpl-Nyctm ng gerd, hoarseness, upcoming weight loss surgery per dr. szymanski UPPER GI ENDOSCOPY Routine 06/01/2023 11 :20 AM EDT COLONOSCOPY Routine 06/01/2023 11:20 AM EDT documented in this encounter Results * Specimen to Pathology (06/01/2023 12:02 PM EDT) AP Specimen 06/01/2023 12:0 2 PM EDT 06/01/2023 12:02 PM EDT Narrative [facility] - 06/01/2023 12:02 PM EDT Specimen requisition ordered. ??Separate Pathology report to follow Steve Ji MD PATHOLOGY/CYTOLOG Y ORDERABLES Performing Organization Address City/[facility]/[place] [address] * Specimen to Pathology (06/01/2023 12:02 PM EDT) AP Specimen 06/01/2023 12:0 2 PM EDT 06/01/2023 12:02 PM EDT Narrative [facility] - 06/01/2023 12:02 PM EDT Specimen requisition ordered. ??Separate Pathology report to follow Steve Ji MD PATHOLOGY/CYTOLOG Y ORDERABLES Performing Organization Address [facility]/[place] [address] * Specimen to Pathology (06/01/2023 12:02 PM EDT) AP Specimen 06/01/2023 12:0 2 PM EDT 06/01/2023 12:02 PM EDT Narrative [facility] - 06/01/2023 12:02 PM EDT Specimen requisition ordered. ??Separate Pathology report to follow Steve Ji MD PATHOLOGY/CYTOLOG Y ORDERABLES Performing Organization Address City/[facility]/[place] [address] * Specimen to Pathology (06/01/2023 12:02 PM EDT) AP Specimen 06/01/2023 12:0 2 PM EDT 06/01/2023 12:02 PM EDT Narrative [facility] - 06/01/2023 12:02 PM EDT Specimen requisition ordered. ??Separate Pathology report to follow Steve Ji MD PATHOLOGY/CYTOLOG Y ORDERABLES Performing Organization Address City/[facility]/ZIP Co de Phone Number [facility] [place] [address] * Surgical Pathology Report (06/01/2023 11:47 AM EDT) Final Diagnosis [id number] ? Location: 4T; EA10; A The signing pathologist has (i) examined the relevant preparation(s) for the specimen(s) and (ii) rendered or confirmed the diagnosis(es). . ?Surgical Pathology DIAGNOSIS A - 34-35 cm esophagus, biopsy (Multiple): Squamous esophageal and specialized metaplastic columnar mucosa consistent with specialized Rodgers metaplasia. No dysplasia is seen. B - 32-33 cm esophagus, biopsy (Multiple): Specialized metaplastic columnar mucosa consistent with specialized Rodgers metaplasia. ??No dysplasia is seen. C - 30-31 cm esophagus, biopsy (Multiple): Squamous esophageal and specialized metaplastic columnar mucosa consistent with specialized Rodgers metaplasia. No dysplasia is seen. D - 28-29 cm esophagus, biopsy (Multiple): Squamous esophageal and specialized metaplastic columnar mucosa consistent with specialized Rodgers metaplasia. No dysplasia is seen. Electronically signed by: ?Ronald RIVAS, Samira Verified: ??06/09/2023 19:41 ??Pathologist Performed at: ??-[facility] [place], [place] [address] Machine Sand Mixer: Ayad Dee MD, FCAP, ??CLIA Certificate: [id number] SPECIMEN(S) SUBMITTED A - 34-35 cm esophagus, biopsy (Multiple) B - 32-33 cm esophagus, biopsy (Multiple) C - 30-31 cm esophagus, biopsy (Multiple) D - 28-29 cm esophagus, biopsy (Multiple) CLINICAL INFORMATION History of Rodgers's SPECIMEN PROCESSING A - Labeled/Fixativ e: 34-35 cm esophagus, formalin. Quantity/Size: Five, ranging from 0.1-0.4 cm. Tissue Description: Soft, pink-white tissues. Sections/Proces sing: Submitted in toto ??in 1 cassette labeled A1. B - Labeled/Fixativ e: 32-33 cm, formalin. Quantity/Size: Five, ranging from 0.2-0.3 cm. Tissue Description: Soft, pink-white tissues. Sections/Proces sing: Submitted in toto ??in 1 cassette labeled B1. C - Labeled/Fixativ e: 30-31 cm esophagus, formalin. Quantity/Size: Multiple, ranging from 0.2-0.3 cm. Tissue Description: Soft, pink-white tissues. Sections/Proces sing: . SPECIMEN PROCESSING Submitted in toto ??in 1 cassette labeled C1. D - Labeled/Fixativ e: 28-29 cm esophagus, formalin. Quantity/Size: Five, ranging from 0.1-0.2 cm. Tissue Description: Soft, pink-white tissues. Sections/Proces sing: Submitted in toto ??in 1 cassette labeled D1. ??nrl 06/09/2023 7:41 PM EDT [facility] GI Biopsy 06/01/2023 11:4 7 AM EDT 06/01/2023 11:47 AM EDT GI Biopsy 06/01/2023 11:4 7 AM EDT 06/01/2023 11:47 AM EDT GI Biopsy 06/01/2023 11:4 7 AM EDT 06/01/2023 11:47 AM EDT GI Biopsy 06/01/2023 11:4 7 AM EDT 06/01/2023 11:47 AM EDT Steve Ji MD PATHOLOGY/CYTOLOG Y ORDERABLES [facility] [place] [address] [facility] [place] [address] * UPPER GI ENDOSCOPY (06/01/2023 11:20 AM EDT) UPPER GI ENDOSCOPY [facility] Endoscopy ___ Procedure Date: 06/01/2023 11:20 AM ? Patient Name: Vianney Cordero ? Date of : 1975 ? Age: 47 ? Order #: [id number] ? Instrument Name: EG-760R- [id number] ? ___ Procedure: ? Upper GI endoscopy Indications: ? Heartburn, Follow-up of ? gastro-esophageal reflux disease, ? Surveillance for malignancy due to ? personal history of Rodgers's ? esophagus Patient Profile: ? This is a 47 year old female with ? history of long segment Rodgers's ? s/p hernia repair (Addie). Providers: ? Steve Ji MD, Tessa ? Ashish Gonzalez, NIMCO, Sushant ? Confalone Referring MD: ?WANDY Andrade Requesting Provider: ?? Erum Szymanski MD Medicines: ? Monitored Anesthesia Care Complications: ? No immediate complications. ___ Procedure: ? Pre-Anesthesia Assessment: ? - Prior [...] cancer, and adverse medication ? reactions. The Endoscope was ? introduced through the mouth, and ? advanced to the third part of ? duodenum The upper GI endoscopy was ? accomplished without difficulty. ? The patient tolerated the procedure ? well. ? Findings: ? The Z-line was irregular and was found 28 cm from the ? incisors. ? The esophagus and gastroesophageal junction were ? examined with white light and Fujifilm Blue Light ? Imaging from a forward view and retroflexed position. ? There were esophageal mucosal changes consistent with ? long-segment Rodgers's esophagus. These changes ? involved the mucosa at the upper extent of the ? gastric folds (35 cm from the incisors) extending to ? the Z-line (28 cm from the incisors). Circumferential ? salmon-colored mucosa was present from 28 to 35 cm. ? The maximum longitudinal extent of these esophageal ? mucosal changes was 8 cm in length. Mucosa was ? biopsied with a cold forceps for histology. A total ? of 4 specimen bottles were sent to pathology 28-29cm; ? 30-31cm; 32-33cm: 34-35cm. ? Evidence of a Addie fundoplication was found in the ? cardia and in the gastric fundus. The wrap appeared ? intact. This was traversed. ? The exam of the stomach was otherwise normal. ? The examined duodenum was normal. ? Moderate Sedation: ? Not applicable - See Anesthesia documentation Impression: ?- Z-line irregular, 28 cm from the ? incisors. ? - Esophageal mucosal changes ? consistent with long-segment ? Rodgers's esophagus. Biopsied. ? - A Addie fundoplication was ? found. The wrap appears intact. ? - Normal examined duodenum. Recommendation: ?- Await pathology results. ? - Follow an antireflux regimen. ? - Proceed with Colonoscopy. ? Attending Participation: ? I personally performed the entire procedure. ? Dr. Michele Ji __ Steve Ji MD 06/01/2023 12:29:24 PM Number of Addenda: 0 Note Initiated On: 06/01/2023 11:20 AM PROVATION 06/01/2023 11:2 0 AM EDT Unknown GENERAL SURGICAL ORD ERABLES PROVATION * COLONOSCOPY (06/01/2023 11:20 AM EDT) COLONOSCOPY [facility] Endoscopy Procedure Date: 06/01/2023 11:20 AM ? Patient Name: Vianney Cordero ? Date of : 1975 ? Age: 47 ? Order #: [id number] ? Instrument Name: [id number]- [id number] ? Procedure: ? Colonoscopy Indications: ? High [...] preparation was evaluated ? using the BBPS ([place] Bowel ? Preparation Scale) with scores of: [...] AM PROVATION 06/01/2023 11:2 0 AM EDT Erum Szymanski MD GENERAL SURGICAL ORD ERABLES PROVATION documented in this encounter Visit Diagnoses Not [...] 10:22 AM EDT 100 mL/hr 100 mL/hr naloxone (Narcan) (0.4 mg/mL) injection 0.04 mg 0.04 mg, Intravenous, EVERY 5 MIN PRN, 3 doses, Starting on Sun06/01/23 at 1216, Until Sun06/01/23 at 1531, Opioid Reversal, for respiratory rate less than 6 or unresponsive., May repeat every 5 minutes to increase respiratory rate. DO NOT exceed 0.12 mg total dose. Notify anesthesia immediately if administered., PACU Recovery, Routine ondansetron (pf) (Zofran) (2 mg/mL) injection 4 mg 4 mg, Intravenous, EVERY 30 MIN PRN, 2 doses, Starting on Sun06/01/23 at 1216, Until Sun06/01/23 at 1531, Nausea, Maximum total dose of 8 mg (including OR administration). If multiple antiemetics ordered, use ondansetron first and if ineffective use prochlorperazine or haloperidoL second, PACU Recovery documented in this encounter Active and Recently Administered Medications Times are shown in EDT. Continuous Medication Order 05/30/2023 05/31/2023 06/01/2023 lactated ringers infusion 100 mL/hr, Intravenous, CONTINUOUS, Starting on Sun06/01/23 at 1030, Until Sun06/01/23 at 1531, Endoscopy (Day of Procedure) 1022 (New Bag - Prov ider: Brenda Pena RN)1129 (New Bag - Provider: Lizbeth Rivera CRNA)1131 (Paused - Provider: Lizbeth Rivera CRNA - Comment: Switch to gravity)1132 (Restarted - Provider: Lizbeth Rivera CRNA)1209 (Anesthesia Volume Adjustment - Provider: Lizbeth Rivera CRNA) PRN Medication Order 05/30/2023 05/31/2023 06/01/2023 naloxone (Narcan) (0.4 mg/mL) injection 0.04 mg 0.04 mg, Intravenous, EVERY 5 MIN PRN, 3 doses, Starting on Sun06/01/23 at 1216, Until Sun06/01/23 at 1531, Opioid Reversal, for respiratory rate less than 6 or unresponsive., May repeat every 5 minutes to increase respiratory rate. DO NOT exceed 0.12 mg total dose. Notify anesthesia immediately if administered., PACU Recovery, Routine ondansetron (pf) (Zofran) (2 mg/mL) injection 4 mg 4 mg, Intravenous, EVERY 30 MIN PRN, 2 doses, Starting on Sun06/01/23 at 1216, Until Sun06/01/23 at 1531, Nausea, Maximum total dose of 8 mg (including OR administration). If multiple antiemetics ordered, use ondansetron first and if ineffective use prochlorperazine or haloperidoL second, PACU Recovery documented in this encounter Care Teams Painting Worker Relationship Specialty Start Date End Date Sonido Cordoba PA [address] [place] [address] PCP - General Family Medicine 07/06/20 documented as of this encounter
--- OUTSIDE RECORDS SUMMARY | 2024-10-16 17:38 | XMS_ITS | Encounter Summary ---
[facility] [place] [address] Care Team Providers Care Design Inserter Name Role Phone Sonido Cordoba Primary Care Provider +1- [phone] Encounter Details Date Type Department Care Team (Late st Contact Info) Description 06/01/2023 9:19 AM EDT - 06/01/2023 1:26 PM EDT Hospital En[place] [address] Steve Ji MD [facility] [place] [address] Discharge Disposition: Home Social History Tobacco Use [...] Sign Reading Time Taken Comments Blood Pressure 132/73 06/01/2023 12:50 PM EDT Pulse 82 06/01/2023 10:05 AM EDT Temperature 36.3 ??C (97.3 ??F) 06/01/2023 10:05 AM E DT Respiratory Rate 15 06/01/2023 12:50 PM EDT Oxygen Saturation 98% 06/01/2023 12:50 PM EDT Inhaled Oxygen Concentration - - [...] the day after the procedure, use an cjts-czl-mqzgoum spray to numb your throat. Sucking on [...] occurs, please contact your Doctor. Please call [phone] before 8pm Mon-Fri with problems, questions or concerns. If you call after 8pm or on weekends, call the Hospital at [phone] and ask to speak to the Senior Reservoir Engineer instructional manager and the platen press operator apprentice will contact that person for you. When should you call for help? Call 911 anytime you think you may need emergency [...] any problems. Where can you learn more? [facility] View your After Visit Summary and more online at [email or web address] If you would like to provide feedback about your hospital experience, please call the Office of Patient and Family Relations at . If you have received this After Visit Summary in error, please immediately return it in person to the department, or notify the [facility] Privacy Office by calling toll free at between the hours of 8AM and 5PM to arrange for our retrieval of the documents at no cost to you. Content Version: 12.2 ?? 8991-2469 [employer]. Care instructions adapted under license by [facility]. If you have questions about a medical condition or this instruction, always ask your healthcare professional. [employer] disclaims any warranty or liability for your [...] occurs, please contact your Doctor. Please call [phone] before 8pm Mon-Fri with problems, questions or concerns. If you call after 8pm or on weekends, call the Hospital at [phone] and ask to speak to the Senior Reservoir Engineer instructional manager and the platen press operator apprentice will contact that person for you. When should you call for help? Call [phone] anytime you think you may need emergency [...] any problems. Where can you learn more? [facility] View your After Visit Summary and more online at [email or web address] If you would like to provide feedback about your hospital experience, please call the Office of Patient and Family Relations at . If you have received this After Visit Summary in error, please immediately return it in person to the department, or notify the [facility] Privacy Office by calling toll free at between the hours of 8AM and 5PM to arrange for our retrieval of the documents at no cost to you. Content Version: 12.2 ?? 2096-9206 [employer]. Care instructions adapted under license by [facility]. If you have questions about a medical condition or this instruction, always ask your healthcare professional. [employer] disclaims any warranty or liability for your [...] occurs, please contact your Doctor. Please call [phone] before 8pm Mon-Fri with problems, questions or concerns. If you call after 8pm or on weekends, call the Hospital at [phone] and ask to speak to the Senior Reservoir Engineer instructional manager and the platen press operator apprentice will contact that person for you. When should you call for help? Call [phone] anytime you think you may need emergency [...] any problems. Where can you learn more? [facility] View your After Visit Summary and more online at [email or web address] If you would like to provide feedback about your hospital experience, please call the Office of Patient and Family Relations at . If you have received this After Visit Summary in error, please immediately return it in person to the department, or notify the [facility] Privacy Office by calling toll free at between the hours of 8AM and 5PM to arrange for our retrieval of the documents at no cost to you. Content Version: 12.2 ?? 8885-4490 [facility]. Care instructions adapted under license by [facility]. If you have questions about a medical condition or this instruction, always ask your healthcare professional. [employer] disclaims any warranty or liability for your [...] 07/02/2023 pantoprazole EC (Protonix) [address] tabletIndications:Cannon tt's esophagus without dysplasia,Gastroesophag eal reflux disease [...] complication. Informed Consent signed by patient (or client support representative). documented in this encounter Plan of Treatment Upcoming Encounters Date Type Department Care Team (Late st Contact Info) Description 12/31/2024 10:00 AM EST Office [place] [address] Mercy Amanda MD [facility] [address] 04/01/2025 2:00 PM EDT Office [place] [address] Erum Szymanski MD [facility] [place] [address] documented as of this encounter Goals Goal [...] Routine 06/01/2023 11:47 AM EDT Colonoscopy, Diagnostic ([address]602) 06/01/2023 11:36 AM EDT [id number]-[id number] ng gerd, hoarseness, upcoming weight loss surgery per dr. szymanski Upper Gi Endoscopy, Biopsy ([id number]) 06/01/2023 11:36 AM EDT ychnegjbp-qmo-Zpwdy ng gerd, hoarseness, upcoming weight loss surgery per dr. szymanski UPPER GI ENDOSCOPY Routine 06/01/2023 11 :20 AM EDT COLONOSCOPY Routine 06/01/2023 11:20 AM EDT documented in this encounter Results * Specimen to Pathology (06/01/2023 12:02 PM EDT) AP Specimen 06/01/2023 12:0 2 PM EDT 06/01/2023 12:02 PM EDT Narrative [facility] - 06/01/2023 12:02 PM EDT Specimen requisition ordered. ??Separate Pathology report to follow Steve Ji MD PATHOLOGY/CYTOLOG Y ORDERABLES Performing Organization Address City/[facility]/[place] [address] * Specimen to Pathology (06/01/2023 12:02 PM EDT) AP Specimen 06/01/2023 12:0 2 PM EDT 06/01/2023 12:02 PM EDT Narrative [facility] - 06/01/2023 12:02 PM EDT Specimen requisition ordered. ??Separate Pathology report to follow Steve Ji MD PATHOLOGY/CYTOLOG Y ORDERABLES Performing Organization Address [facility] [place] [place] [address] * Specimen to Pathology (06/01/2023 12:02 PM EDT) AP Specimen 06/01/2023 12:0 2 PM EDT 06/01/2023 12:02 PM EDT Narrative [facility] - 06/01/2023 12:02 PM EDT Specimen requisition ordered. ??Separate Pathology report to follow Steve Ji MD PATHOLOGY/CYTOLOG Y ORDERABLES Performing Organization Address [facility] [place] [address] * Specimen to Pathology (06/01/2023 12:02 PM EDT) AP Specimen 06/01/2023 12:0 2 PM EDT 06/01/2023 12:02 PM EDT Narrative [facility] - 06/01/2023 12:02 PM EDT Specimen requisition ordered. ??Separate Pathology report to follow Steve Ji MD PATHOLOGY/CYTOLOG Y ORDERABLES Performing Organization Address City/[facility]/[place] [address] * Surgical Pathology Report (06/01/2023 11:47 AM EDT) Final Diagnosis [id number] ? Location: 4T; EA10; A The signing [...] Samira Verified: ??06/09/2023 19:41 ??Pathologist Performed at: ??-[facility] Dept. of Pathology, [place] [address] [employer] Supervisor: Ayad Dee MD, FCAP, ??CLIA Certificate: [id number] SPECIMEN(S) SUBMITTED A - 34-35 cm esophagus, [...] labeled D1. ??nrl 06/09/2023 7:41 PM EDT [facility] GI Biopsy 06/01/2023 11:4 7 AM EDT 06/01/2023 11:47 AM EDT GI Biopsy 06/01/2023 11:4 7 AM EDT 06/01/2023 11:47 AM EDT GI Biopsy 06/01/2023 11:4 7 AM EDT 06/01/2023 11:47 AM EDT GI Biopsy 06/01/2023 11:4 7 AM EDT 06/01/2023 11:47 AM EDT Steve Ji MD PATHOLOGY/CYTOLOG Y ORDERABLES Performing Organization Address City/State/[facility] Co de Phone Number [facility] [place] [place] [address] [facility] [place] [address] * UPPER GI ENDOSCOPY (06/01/2023 11:20 AM EDT) UPPER GI ENDOSCOPY [facility] Endoscopy ___ Procedure Date: 06/01/2023 11:20 AM ? Patient Name: Vianney Cordero ? Date of : 1975 ? Age: 47 ? Order #: [id number] ? Instrument Name: EG-760R- [id number] ? ___ Procedure: ? Upper GI endoscopy Indications: ? Heartburn, Follow-up of ? gastro-esophageal reflux disease, ? Surveillance for malignancy due to ? personal history of Rodgers's ? esophagus Patient Profile: ? This is a 47 year old female with ? history of long segment Rodgers's ? s/p hernia repair (Addie). Providers: ? Steve Ji MD, Tessa ? Ashish Gonzalez, RN, Sushant ? Confalone Referring MD: ?WANDY Andrade [...] * COLONOSCOPY (06/01/2023 11:20 AM EDT) COLONOSCOPY [facility] Endoscopy Procedure Date: 06/01/2023 11:20 AM ? Patient Name: Vianney Cordero ? Date of : 1975 ? Age: 47 ? Order #: [id number] ? Instrument Name: EC-760R- [id number] ? Procedure: ? Colonoscopy Indications: ? High [...] preparation was evaluated ? using the BBPS ([place] Bowel ? Preparation Scale) with scores of: [...] Recovery documented in this encounter Care Teams Design Inserter Relationship Specialty Start Date End Date Sonido Cordoba PA [address] [place] [address] PCP - General Family Medicine 07/06/20 documented as of this encounter
--- OUTSIDE RECORDS SUMMARY | 2024-10-16 17:38 | XMS_ITS | Encounter Summary ---
Author Organization [facility] [place] [address] Care Team Providers Care Fig Bar Machine Operator Name Role Phone Sonido Cordoba Primary Care Provider +1- [phone] Reason for Visit * Reason Comments Medication Refill Encounter Details Date Type Department Care Team (Late st Contact Info) Description 04/01/2023 [place]ill [place] [address] Mercy Amanda MD [facility] [address] [facility] [address] Class 3 severe obesity with serious comorbidity [...] AM EST Office [place] [address] Mercy Amanda MD [facility] [address] [facility] [address] 04/01/2025 2:00 PM EDT Office [place] [address] Erum Szymanski MD [facility] [place] [address] documented as of this encounter Goals Goal [...] a priority: - Eggs - Cheese - Libyan yogurt / cottage cheese - meat - fish - nuts/seeds - protein shake or bar Start with the protein, can choose to add other foods (would rather have you choose regular bread/ british virgin islander muffin, etc. - whole wheat if [...] X documented in this encounter Care Teams Fig Bar Machine Operator Relationship Specialty Start Date End Date Sonido Cordoba PA [address] [place] [address] PCP - General Family Medicine 07/06/20 documented as of this encounter
--- OUTSIDE RECORDS SUMMARY | 2024-10-16 17:38 | XMS_ITS | Encounter Summary ---
[place] [address] Care Team Providers Care Installation And Service Technician Name Role Phone Sonido Cordoba Primary Care Provider +1- [phone] Encounter Details Date Type Department Care Team (Latest Contact Info) Description 03/07/2023 Travel Social History Tobacco Use Types Packs/Day [...] AM EST Office [place] [phone] Mercy Amanda MD [facility] [address] 04/01/2025 2:00 PM EDT Office Visit Gastroenterology at [facility] [place] [address] Erum Szymanski MD [facility] [place] [address] documented as of this encounter Goals Goal [...] a priority: - Eggs - Cheese - Pashto yogurt / cottage cheese - meat - [...] on filedocumented in this encounter Care Teams Installation And Service Technician Relationship Specialty Start Date End Date Soniod Cordoba PA [address] [place] [address] PCP - General Family Medicine 07/06/20 documented as of this encounter
--- OUTSIDE RECORDS SUMMARY | 2024-10-16 17:38 | XMS_ITS | Encounter Summary ---
[place] [address] Care Team Providers Care Service Assistant Name Role Phone Sonido Cordoba Primary Care Provider +1- [phone] Encounter Details Date Type Department Care Team (Latest Contact Info) Description 09/08/2022 Travel Social History Tobacco Use Types Packs/Day [...] AM EST Office [place] [phone] Mercy Amanda MD [facility] [address] [facility] [place] [address] 04/01/2025 2:00 PM EDT Office Visit Gastroenterology at [facility] [place] [place] [address] Erum Szymanski MD [facility] [place] [address] documented as of this encounter Goals Goal [...] a priority: - Eggs - Cheese - Maori yogurt / cottage cheese - meat - fish - nuts/seeds - protein shake or bar Start with the protein, can choose to add other foods (would rather have you choose regular bread/ romansh muffin, etc. - whole wheat if possible- [...] on filedocumented in this encounter Care Teams Service Assistant Relationship Specialty Start Date End Date Sonido Cordoba PA [address] [place] [address] PCP - General Family Medicine 07/06/20 documented as of this encounter
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
--- OUTSIDE RECORDS SUMMARY | 2024-10-16 17:38 | XMS_ITS | Encounter Summary ---
[place] [address] Care Team Providers Care Anesthesiologist Physician Name Role Phone Sonido Cordoba Primary Care Provider +1- [phone] Encounter Details Date Type Department Care Team (Latest Contact Info) Description 03/28/2023 Travel Social History Tobacco Use Types Packs/Day [...] AM EST Office [place] [phone] Mercy Amanda MD [facility] [address] [facility] [address] 04/01/2025 2:00 PM EDT Office Visit Gastroenterology at [facility] [place] [address] Erum Szymanski MD [facility] [place] [address] documented as of this encounter Goals Goal [...] (would rather have you choose regular bread/ thai muffin, etc. - whole wheat if possible- [...] on filedocumented in this encounter Care Teams Anesthesiologist Physician Relationship Specialty Start Date End Date Sonido Cordoba PA [address] [place] [address] PCP - General Family Medicine 07/06/20 documented as of this encounter
--- OUTSIDE RECORDS SUMMARY | 2024-10-16 17:39 | XMS_ITS | Encounter Summary ---
Author Organization [facility] Address [facility] [place] [address] Care Team Providers Care Family Reunification Specialist Name Role Phone Sonido Cordoba Primary Care Provider +1- [phone] Encounter Details Date Type Department Care Team (Late st Contact Info) Description 02/23/2022 Telephone Weight and Wellness at [facility] [address] [place] [address] [facility] [place] [address] Social History Tobacco Use Types Packs/Day Years [...] encounter Miscellaneous Notes * Telephone Encounter - Priti Skinner RD - 02/23/2022 9:39 AM EDT non identified vm; this mortgage underwriter left message saying a provider from D attempting to reach patient for a scheduled telephone visit. Informed would try back in 2 min and if no answer our team would call to reschedule. Tried x2 no answer. Priti Skinner RD LD documented in this encounter Plan of Treatment Upcoming Encounters Date Type Department Care Team (Late st Contact Info) Description 12/31/2024 10:00 AM EST Office [place] [address] Mercy Amanda MD [facility] [address] [facility] [address] 04/01/2025 2:00 PM EDT Office [place] [address] Erum Szymanski MD [facility] [place] [address] documented as of this encounter Goals Goal [...] a priority: - Eggs - Cheese - Burkinan yogurt / cottage cheese - meat - fish - nuts/seeds - protein shake or bar Start with the protein, can choose to add other foods (would rather have you choose regular bread/ micronesian muffin, etc. - whole wheat if possible- [...] on filedocumented in this encounter Care Teams Family Reunification Specialist Relationship Specialty Start Date End Date Sonido Cordoba PA [address] [place] [address] PCP - General Family Medicine 07/06/20 documented as of this encounter
--- OUTSIDE RECORDS SUMMARY | 2024-10-16 17:39 | XMS_ITS | Encounter Summary ---
Demographics Address [address] [place] [address] Mobile Phone Home Phone Email Address [email or web address] Email Address [email or web address] Preferred Language South Korean Marital Status Druze Affiliation Unknown Race White Ethnic Group Not or [place] [address] Care Team Providers Care National Sales Consultant Name Role Phone Sonido Cordoba Primary Care Provider +1- [phone] Encounter Details Date Type Department Care Team (Late st Contact Info) Description 01/09/2022 External Results Weight and Wellness at [address] [phone] Kezia Preston, RN Social History Tobacco Use [...] AM EST Office [place] [address] [facility] [place] [address] 04/01/2025 2:00 PM EDT Office Visit Gastroenterology at [facility] [place] [phone] Erum Szymanski MD [facility] [place] [address] documented as of this encounter Goals Goal [...] Procedure Name Priority Date/Time Associated Diagnosis Comments [facility] EXTERNAL RESULT PANEL Routine 10/21/2021 documented in this encounter Results * (ABNORMAL) [facility] External Results (10/21/2021) Cholesterol, Total 195 Triglyceride 64 HDL Cholesterol 48 LDL Cholesterol 135(H) Hemoglobin A1c 5.4 Glucose Fasting 91 Insulin 26.4 10/21/2021 Historical Provider POINT OF CARE SHAGGY T ORDERABLES documented in this encounter Visit Diagnoses Not on filedocumented in this encounter Care Teams National Sales Consultant Relationship Specialty Start Date End Date Sonido Cordoba PA [address] [place] [address] PCP - General Family Medicine 07/06/20 documented as of this encounter
--- OUTSIDE RECORDS SUMMARY | 2024-10-16 17:39 | XMS_ITS | Encounter Summary ---
[place] [address] Care Team Providers Care Crook Operator Name Role Phone Sonido Cordoba Primary Care Provider +1- [phone] Encounter Details Date Type Department Care Team (Late st Contact Info) Description 02/22/2022 Interpretation Only [address] [address] Clovis Dill [place] [address] Social History Tobacco Use Types Packs/Day Years [...] AM EST Office [place] [address] Mercy Amanda MD [facility] [address] [facility] [place] [address] 04/01/2025 2:00 PM EDT Office Visit Gastroenterology at [facility] [place] [address] Erum Szymanski MD [facility] [place] [address] documented as of this encounter Goals Goal [...] Name Priority Date/Time Associated Diagnosis Comments XR HAND MIN 3 VIEWS LEFT STAT 02/22/2022 1:01 PM EDT documented in this encounter Results * XR Hand Min 3 views Left (Generic) (02/22/2022 1:01 PM EDT) PT CLASS E RAD ADMITDTTM RAD PT RAD INFO [id number]^E DWARDS^DAVION EL^R RAD EXAM DESC [id number]^XR LEFT HAND ROUTINE 3+VIEWS^RIS RAD Anatomical Region Laterality Modality Hand Left Radiographic Joann ging Impressions 02/22/2022 1:06 PM EDT No fracture Thank you for letting us participate in the care of this patient. ??If you are a health care provider and have any questions regarding this report, please contact the number below. ??For patients who have questions please contact the health child care centre director that requested your imaging first. ? Narrative 02/22/2022 1:06 PM EDT EXAMINATION: XR LEFT HAND ROUTINE 3+VIEWS, XR LEFT WRIST COMPLETE CLINICAL HISTORY: foosh ??(pain in thenar eminence and proximal) TECHNIQUE: 3 views of the left hand. 3 views of the left wrist. COMPARISON: None FINDINGS: Normal alignment of the left hand and left wrist. No fracture. Joint spaces are preserved. Procedure Note Bon Garduno MD - 02/22/2022 EXAMINATION: XR LEFT HAND ROUTINE 3+VIEWS, XR LEFT WRIST COMPLETE CLINICAL HISTORY: foosh (pain in thenar eminence and proximal) TECHNIQUE: 3 views of the left hand. 3 views of the left wrist. COMPARISON: None FINDINGS: Normal alignment of the left hand and left wrist. No fracture. Jointspaces are preserved. IMPRESSION No fracture Thank you for letting us participate in the care of this patient. If youare a health care provider and have any questions regarding this report,please contact the number below. For patients who have questions please contactthe health child care centre director that requested your imaging first. Clovis Dill MD IMG DX ORDERABLES documented in this encounter Visit Diagnoses Not on filedocumented in this encounter Care Teams Crook Operator Relationship Specialty Start Date End Date Sonido Cordoba PA [address] [place] [address] PCP - General Family Medicine 07/06/20 documented as of this encounter
--- OUTSIDE RECORDS SUMMARY | 2024-10-16 17:39 | XMS_ITS | Encounter Summary ---
[place] [address] Care Team Providers Care Motor Bus Driver Name Role Phone Sonido Cordoba Primary Care Provider +1- [phone] Encounter Details Date Type Department Care Team (Late st Contact Info) Description 02/13/2022 Orders Only Weight and Wellness at [address] [phone] Mercy Amanda MD [facility] [address] [facility] [address] Vitamin D deficiency Social History Tobacco Use [...] AM EST Office [place] [address] Mercy Amanda MD [facility] [address] [facility] [address] 04/01/2025 2:00 PM EDT Office Visit [place] [address] Erum Szymanski MD [facility] [place] [address] documented as of this encounter Goals Goal [...] Lifestyle On track( 023 9:49 AM EDT) No Brilling, Priti K, RD Note: Aim for no more than [...] as of this encounter Visit Diagnoses Diagnosis Vitamin D deficiency Unspecified vitamin D deficiency documented in this encounter Care Teams Motor Bus Driver Relationship Specialty Start Date End Date Sonido Cordoba PA [address] [place] [address] PCP - General Family Medicine 07/06/20 documented as of this encounter
--- OUTSIDE RECORDS SUMMARY | 2024-10-16 17:39 | XMS_ITS | Encounter Summary ---
[place] [address] Care Team Providers Care Accountant Tax Name Role Phone Sonido Cordoba Primary Care Provider [phone]- [phone] Reason for Referral * Diagnostic Test (Routine) - Closed Specialty Diagnoses / Procedures Referred By Aric madrigal Referred To Contact Radiology Diagnoses Peroneal tendon tear, right, subsequent encounter Procedures MRI Ankle wo Contrast Right Gracy Ellis PA [facility] [place] [address] [place] [address] Referral ID Status Reason Start Date Expiration Date V isits Requested Visits Authorized [id number] Closed Specialty Service Requested 08/03/2021 01/31/2023 1 1 Reason for Visit * Reason Comments Follow-up s/p 08/12/2020 (Li) Right peroneal brevis tendon debridement/tubularization. PAIN/SWELLING/NUMBNESS IN 3 TOES Encounter Details Date Type Department Care Team (Late st Contact Info) Description 08/03/2021 1:00 PM EDT Office [place] [address] Gracy Ellis PA [facility] [address] [place] [address] Peroneal tendon tear, right, subsequent encounter Social History Tobacco Use Types Packs/Day [...] Sign Reading Time Taken Comments Blood Pressure 125/66 08/03/2021 12:51 PM EDT Pulse 61 08/03/2021 12:51 PM EDT Temperature - - Respiratory Rate - - Oxygen Saturation - - Inhaled Oxygen Concentration - - Weight 93 kg (205 lb) 08/03/2021 12:51 PM EDT Height 162.6 cm (5' 4) 08/03/2021 12:51 PM EDT Body Mass Index 35.19 08/03/2021 12:51 PM EDT documented in this encounter Progress Notes * Gracy Ellis PA - 08/03/2021 1:00 PM EDT PATIENT NAME: Vianney Cordero AGE: 45 y.o. MR#: [id number] DATE OF VISIT: 08/03/2021 CHIEF COMPLAINT: One year post 08/12/2020 (Li) Right peroneal brevis tendon debridement/tubularization, lateral hindfoot pain and numbness in 234 toes post injury HISTORY OF PRESENT ILLNESS: Ms. Mao Cordero is a 45 y.o. female who comes into clinic today for evaluation of the right foot. The patient underwent right peroneal brevis tendon debridement and tubularization on 08/12/2020. Roughly 1 month ago she was pivoting at work and felt a pop on the lateral hindfoot with significant pain. She needs to sit down and was not able to ambulate initially. Since this time she describes lateral hindfoot pain as well as numbness in the lesser three toes. These symptoms are very similar to her symptoms prior to her surgery. She has been ambulating in sneakers and though does have some discomfort thinks that these are the best option at this point. She does have a history of low back pain. 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 Her pain is most significant when bearing weight. She also notes some pain in the toes when she flexes her toes. Past medical history: Patient Active Problem List Diagnosis Date Noted ??? Heartburn 06/18/2021 ??? Belching 06/18/2021 ??? Peroneal tendon tear, right, subsequent encounter 05/04/2020 ??? Left ankle pain 10/26/2017 ??? Hx of tonsillectomy 08/01/2015 ??? History of dilation and curettage 08/01/2015 ??? History of Addie fundoplication 06/201508/01/2015 ??? Pain in left shoulder 07/30/2015 ??? Right knee pain 07/30/2015 ??? Obesity 04/05/2015 ??? Ulnar neuropathy at elbow of right upper extremity 04/02/2015 ??? Hiatal hernia 04/02/2015 ??? Dyspepsia 12/28/2014 ??? Elbow pain, right 08/27/2013 Medications: ??? cyclobenzaprine (Flexeril) 10 mg Tablet ??? pantoprazole EC (Protonix) 40 mg Tablet, Delayed Release (E.C.) ??? acetaminophen (Tylenol) 500 mg Tablet ??? meclizine (ANTIVERT) 12.5 mg Tablet ??? traZODone (DESYREL) 50 mg Tablet Allergies: Allergies Allergen Reactions ??? Ibuprofen Interacts with protonix PCP said she shouldn't take it ??? Oxycodone Nausea And Vomiting ??? Shellfish Containing Products Social history: Social History Tobacco Use ??? Smoking status: Former Smoker Packs/day: 0.50 Years: 6.00 Pack years: 3.00 Types: Cigarettes Quit date: 01/25/1997 Years since quittin.5 ??? Smokeless tobacco: Never Used Substance Use Topics ??? Alcohol use: Not Currently Comment: 1X/quarter Review of systems: No chest pain or shortness of breath No fevers, night sweats or chills Vital signs: Blood pressure 125/66, pulse 61, height 162.6 cm (5' 4), weight 93 kg (205 lb). Physical exam: Ms. Mao Cordero is a 45 y.o. female who is alert and oriented. She is in no acute discomfort and is resting comfortably in the exam room. Plantarflexion 45 degrees Dorsiflexion 10 degrees Inversion eversion arc 10 degrees Tenderness to palpation along the peroneal tendon in the area of the hindfoot Tender to palpation of fourth and fifth metatarsal manipulation Pain with resisted eversion Pain with talar tilt however laxity not apparent Imaging studies: No fractures or dislocations noted. Assessment and plan:: 45 y.o. year-old female One year post 08/12/2020 (Li) Right peroneal brevis tendon debridement/tubularization, lateral hindfoot pain and numbness in 234 toes post injury. We had a long discussion regarding the nature of Vianney Cordero's chief complaint. We reviewed the imaging together No fractures or dislocations noted. . Clinically Vianney Cordero has subjective swelling over the lateral ray and complains of pain with resisted eversion and passive eversion. She does not feel markedly lax however does have somediscomfort on the lateral hindfoot with talar tilt. We discussed the concern for peroneal tear. We talked about obtaining advanced imaging to evaluate competency of the peroneal tendon which she agrees to. She does struggle with anxiety and I have run the query and given her 1 dose of Ativan to be taken prior to her MRI. She does know she will need to have someone to drive her. This plan was discussed with the patient and they are in agreement. All of the patient's questions were answered. The patient understand to contact us if they have any other questions or concerns. FU: MRI, will call or send a message over my with results and plan Gracy Ellis PA-C The above dictation was made with voice recogonition software documented in this encounter Plan of Treatment Upcoming Encounters Date Type Department Care Team (Late st Contact Info) Description 12/31/2024 10:00 AM EST Office [place] [address] Mercy Amanda MD [facility] [address] 04/01/2025 2:00 PM EDT Office [place] [address] Erum Szymanski MD [facility] [place] [address] documented as of this encounter Results * MRI Ankle wo Contrast Right (08/26/2021 7:35 PM EDT) Anatomical Region Laterality Modality Ankle Right Magnetic Resonan ce Impressions 08/29/2021 4:49 PM EDT 1. ??New segment of thick and heterogeneous peroneus brevis starting from the lateral malleolus to peroneal tubercle, likely reflective of any combinations of postoperative change and tendinosis. 2. ??New Lateral arrangement of peroneus brevis tendon relative to the peroneus longus starting from the lateral malleolus. 3. ??Minimal residual findings of plantar fasciitis when compared to 2019. Preliminary report signed by: Henry Wheatley at 08/29/2021 3:00 PM I have personally reviewed the image(s) and the resident's interpretation and agree with the findings, Melanie Jimenes MD at 08/29/2021 4:49 PM Thank you for letting us participate in the care of this patient. ??If you are a health care provider and have any questions regarding this report, please contact the number below. ??For patients who have questions please contact the health client care representative that requested your imaging first. ? Electronically signed by: Melanie Jimenes MD, [facility] ([phone]), at 08/29/2021 4:49 PM Narrative 08/29/2021 4:49 PM EDT EXAMINATION: MRI ANKLE WO CONTRAST RIGHT CLINICAL HISTORY: history of peronal debridement/tubulaization. new injury, increased laxity and pain. Evaluate for competency of the peroneal TECHNIQUE: Noncontrast MRI of the right ankle was performed using axial T1, T2 FS; coronal oblique PD; coronal T2 FS; sagittal PD, STIR and ANNA FS sequences. COMPARISON: Right foot radiograph 08/03/2019, MRI right ankle 09/29/2019 FINDINGS: TENDONS: Extensor: Intact. Flexor: Intact. Achilles: Intact. Peroneal: Both the peroneal brevis and longus tendons are not interrupted. Normal morphology and signal of peroneus longus. The peroneal brevis tendon is slightly thick and irregular starting at the lateral malleolus, (series 9, image 21; series 6, image 21). Findings represent interval debridement and tubularization for treatment of peroneus brevis longitudinal split tear. New lateral placement of peroneus brevis relative to the longus tendon could be postsurgical in nature. No peritendinous edema. Normal appearance of superior peroneal retinaculum. There is also interval resection of the low-lying belly of peroneus brevis. Plantar fascia: Intact. Again noted is spurring of the plantar calcaneus at the insertion of the plantar fascia, with mild bright T2 signal at the insertion on the calcaneus that has improved since 2019. LIGAMENTS: Lateral complex: Intact. Syndesmosis: Intact. Deltoid: Intact. Spring: Intact. Lisfranc/Chopart: There is mild spurring of the talonavicular joint with buckling of the talonavicular ligament. Bone/cartilage: Normal bone marrow signal. There is mild thinning of the talonavicular cartilage (series 3, image 14) on a degenerative basis. Sinus tarsi: Normal. Muscle: Normal muscle bulk Neurovascular: Normal course and contour. Procedure Note Melanie Jimenes MD - 08/29/2021 EXAMINATION: MRI ANKLE WO CONTRAST RIGHT CLINICAL HISTORY: history of peronal debridement/tubulaization. newinjury, increased laxity and pain. Evaluate for competency of the peroneal TECHNIQUE: Noncontrast MRI of the right ankle was performed using axialT1, T2 FS; coronal oblique PD; coronal T2 FS; sagittal PD, STIR and ANNA FSsequences. COMPARISON: Right foot radiograph 08/03/2019, MRI right ankle 09/29/2019 FINDINGS: TENDONS: Extensor: Intact. Flexor: Intact. Achilles: Intact. Peroneal: Both the peroneal brevis and longus tendons are notinterrupted. Normal morphology and signal of peroneus longus. The peroneal brevis tendon is slightly thick and irregular starting atthe lateral malleolus, (series 9, image 21; series 6, image 21). Findingsrepresent interval debridement and tubularization for treatment of peroneus brevis longitudinal split tear. New lateral placement of peroneus brevis relativeto the longus tendon could be postsurgical in nature. No peritendinousedema. Normal appearance of superior peroneal retinaculum. There is alsointerval resection of the low-lying belly of peroneus brevis. Plantar fascia: Intact. Again noted is spurring of the plantar calcaneusat the insertion of the plantar fascia, with mild bright T2 signal at theinsertion on the calcaneus that has improved since 2019. LIGAMENTS: Lateral complex: Intact. Syndesmosis: Intact. Deltoid: Intact. Spring: Intact. Lisfranc/Chopart: There is mild spurring of the talonavicular joint with buckling of the talonavicular ligament. Bone/cartilage: Normal bone marrow signal. There is mild thinning of the talonavicular cartilage (series 3, image 14) on a degenerative basis. Sinus tarsi: Normal. Muscle: Normal muscle bulk Neurovascular: Normal course and contour. IMPRESSION 1. New segment of thick and heterogeneous peroneus brevis starting fromthe lateral malleolus to peroneal tubercle, likely reflective of anycombinations of postoperative change and tendinosis. 2. New Lateral arrangement of peroneus brevis tendon relative to theperoneus longus starting from the lateral malleolus. 3. Minimal residual findings of plantar fasciitis when compared [id number]. Preliminary report signed by: Henry Wheatley at 08/29/2021 3:00 PM I have personally reviewed the image(s) and the resident's interpretationand agree with the findings, Melanie Jimenes MD at 08/29/2021 4:49 PM Thank you for letting us participate in the care of this patient. If youare a health care provider and have any questions regarding this report,please contact the number below. For patients who have questions please contactthe health client care representative that requested your imaging first. Electronically signed by: Melanie Jimenes MD, [facility]([phone]), at 08/29/2021 4:49 PM Milly Avila MD IMG MRI ORDERABLES documented in this encounter Visit Diagnoses Diagnosis Peroneal tendon tear, right, subsequent encounter Peroneal tendon tear, right, subsequent encounter documented in this encounter Care Teams Accountant Tax Relationship Specialty Start Date End Date Sonido Cordoba PA [address] [place] [address] PCP - General Family Medicine 07/06/20 documented as of this encounter
--- OUTSIDE RECORDS SUMMARY | 2024-10-16 17:39 | XMS_ITS | Encounter Summary ---
Author Organization [facility] [place] [address] Care Team Providers Care Blower And Compressor Assembler Name Role Phone Sonido Cordoba Primary Care Provider [phone]- [phone] Encounter Details Date Type Department Care Team (Latest Contact Info) Description 11/14/2021 2:00 PM EST TH Visit (TeleHealth) Weight and Wellness at [address] [address] Priti Skinner, RD [facility] [place] [address] Adult BMI 38.0-38.9 kg/sq m Social History Tobacco Use Types Packs/Day Years [...] - - Weight 97.5 kg (215 lb) 11/14/2021 1:00 PM EST Height 160.2 cm (5' 3.07) 11/14/2021 1:00 PM ES T Body Mass Index 38 11/14/2021 1:00 PM EST documented in this encounter Patient Instructions * Patient Instructions* Priti Skinner RD - 11/14/2021 2:00 PM EST It was great to chat with you, Vianney . Below are goals discussed today as well as in past visits. Please reach out with a [employer] message if you have any questions or concerns. Priti Goals ??? breakfast choices Continue to eat for the first time when you feel hungry, though consider eating before the car so you can have other options. Consider as many food groups as possible. At breakfast, we want to start with protein as a priority: - Eggs - Cheese - Ivorian yogurt / cottage cheese - meat - fish - nuts/seeds - protein shake or bar Start with the protein, can choose to add other foods (would rather have you choose regular bread/ israeli muffin, etc. - whole wheat if possible- instead of the muffin or poptart) ??? continue to track in an oral Try goal of 1500 Collecting baseline information, [...] documented in this encounter Progress Notes * Priti Skinner RD - 11/14/2021 2:00 PM EST Nutrition Intervention for Weight Management Initial RD visit with PASCALE Gonzalez 1975 Assessment/Nutrition Diagnosis: Pt at increased nutritional risk related to excessive calorie intake and sub optimal physical activity resulting in overweight/obesity as evidenced by BMI and diet recall Telephone visit conducted while patient was at home at the following address: [place], [place] Weight Today: Yesterday 215 lb. Wt Readings from Last 3 Encounters: 11/14/21 97.5 kg (215 lb) 10/06/21 98.8 kg (217 lb 12.8 oz) 08/03/21 93 kg (205 lb) BMI Readings from Last 3 Encounters: 11/14/21 38.00 kg/m?? 10/06/21 38.49 kg/m?? 08/03/21 35.19 kg/m?? Interview: Thinking about starting medication (discussed ways to connect with Dr. Medina). 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 In March re-applying to would like to work on the [employer]. Might be 7a-3p Her experience of hunger throughout the day: Gets shaky on the days when she's hungry. In this casewill get turkey and cheese and do a roll-up (doesn't usually do a bread sandwich). - maybe 2-3 times a week will have something in the middle of the day. Works 6 days a week. Feeling OK about her food choices. Reviewed suggestions based on dietary recall- see goals below Weight Loss History: Has experienced regain in the past from weight loss endeavors. Down to 193 last August, now has been regaining (holding steady over the past month per flowsheets). Not sure what could have caused the regain besides stress. In terms of activity, she is still walking 10 miles a day as she had been at her lowest, just now it's over the course of her work day instead of 2 [address]. Typical Dietary Intake: B: muffin or poptart (between 6:30 and 9a) L: none- there is no time (doesn't get a break) - shift varies (11a-6p or 12-7p) Is allowed a break but doesn't get one all the time. Has to complete shopping orders during the shift D: sometimes chicken, pork chops (buys single servings of veggies or rice) (if working late will grab something from the store so doesn't eat after 8pm- grilled chicken or deli meat roll-ups) S: Time varies when she'll eat that first meal because sometimes she's not hungry. Choosing those options because can eat them in the car. 30 minute commute (getting home close to 8pm on her later shift) Son cooks dinner sometimes- may eat with him on her earlier shifts. Burgers, tacos, chicken, pork chops. Typical Beverages: [x] water - (total: [x] plain [] crystal light or other sugar-free additive [x] almond milk Appetite/Hunger: [x] feels managed with foods/meals outlined above [x] discussed meal/snack schedule adjustment today- see goals [] patient identifies eating for reasons other than hunger- see interview below Food Tracking: [x] Current food Tracking - started and then fell behind, stopped. Found it helpful when she was tracking - good to see how many calories as a goal. 1800 was in there in a day. Times when she ate 3 times in a day. [] discussed potential benefit starting food tracking - see goals [] Food tracking not appropriate for patient at this time Patient Goals from Team: Goals ??? track ORAL such as HelpMeNowpal or Lose it, or pen and paper. If using oral or activity monitor, don't add in extra calories for the calories you burn. Other topics discussed: [x] Eating an appropriate amount of food for your body [x] Reduce highly processed foods, refined carbohydrates, in favor of whole foods [x] Reduce sweet taste in your diet (whether by sugar or non-nutritive sweeteners) [] Increase fruits and non-starchy veggies [x] Replace processed meat with other meat, fish, or, ideally, plant-based proteins (Good, Better,Best handout provided? [] ) [] Consider adding or increasing fermented foods [x] Eat when hungry / planned eating event Activity: [] reviewed current goals [] updated goals Did not discuss today Barriers to Change: Schedule at work difficult to accommodate eating during the day Nutrition Goals updated today: Goals ??? breakfast choices Continue to eat for the first time when you feel hungry, though consider eating before the car so you can have other options. Consider as many food groups as possible. At breakfast, we want to start with protein as a priority: - Eggs - Cheese - Ivorian yogurt / cottage cheese - meat - fish - nuts/seeds - protein shake or bar Start with the protein, can choose to add other foods (would rather have you choose regular bread/ israeli muffin, etc. - whole wheat if possible- instead of the muffin or poptart) ??? continue to track in an oral Try goal of 1500 Collecting baseline information, [...] groups but that's in order of priority Monitor/Evaluate: Will follow up in 2 months Aim for 5-10% weight loss from ABW x 3-6 months from initial visit Thank you Priti Skinner RD [facility] 60 minutes were spent in visit today, including contact with patient, chart review, and documentation documented in this encounter Plan of Treatment Upcoming Encounters Date Type Department Care Team (Late st Contact Info) Description 12/31/2024 10:00 AM EST [place] [address] Mercy Amanda MD [facility] [address] [facility] [address] 04/01/2025 2:00 PM EDT Office [place] [address] Erum Szymanski MD [facility] [place] [address] documented as of this encounter Goals Goal Patient Goal Type Associated Problems Recent Progress Patient-Stated? Author continue to track in an oral Lifestyle No Asha Medina MD Note: Try [...] a priority: - Eggs - Cheese - Ivorian yogurt / cottage cheese - meat - fish - nuts/seeds - protein shake or bar Start with the protein, can choose to add other foods (would rather have you choose regular bread/ israeli muffin, etc. - whole wheat if possible- [...] as of this encounter Visit Diagnoses Diagnosis Adult BMI 38.0-38.9 kg/sq m Body Mass Index 38.0-38.9, adult documented in this encounter Care Teams Blower And Compressor Assembler Relationship Specialty Start Date End Date Sonido Cordoba PA [address] [place] [address] PCP - General Family Medicine 07/06/20 documented as of this encounter
--- OUTSIDE RECORDS SUMMARY | 2024-10-16 17:39 | XMS_ITS | Encounter Summary ---
Author Organization [facility] [place] [address] Care Team Providers Care Kick Press Setter Name Role Phone Sonido Cordoba Primary Care Provider [phone]- [phone] Encounter Details Date Type Department Care Team (Latest Contact Info) Description 10/13/2021 8:00 AM EST TH Visit (TeleHealth) Weight and Wellness at [address] [phone] Erik Sorenson Adult BMI 38.0-38.9 kg/sq m Social History [...] this encounter Patient Instructions * Patient Instructions* Erik Sorenson - 10/13/2021 8:00 AM EST It was good to talk with you Vianney. You have a busy life!!! You're working on figuring out you might establish more routine and schedule meal times. For now you are keeping a food log and not eating after 8:00 pm. I look forward to talking with ou more. Be well, Erik Sorenson Health Nurs[employer] Association Counselor documented in this encounter Progress Notes * Erik Sorenson - 10/13/2021 8:00 AM EST Vianney Cordero is here today at the request of Dr. Medina for lifestyle coaching for weight control and overall health. FIRST VISIT 1. Clarify BIG WHY: Want to learn how to maintain healthier lifestyle, lose weight and keep it off 2. Assess Strengths:active at work 3. Review Healthy habits guidelines for exercise, sleep, and stress- see below 4. Teach SMART goals and practice setting one(connect to BIG WHY, pillars). 5. Remind Patient to review info in Welcome Packet: 6. Review Pathways (note any questions): Patient shared that she has lost weigh in the past and is seems to find its way back. She would like to try new lifestyle changes that will help her understand her body and sustain weight loss. She just stated keeping a food log and so far is finding it helpful. She has a busy, active job and oftenskips meals as she doesn't have time to sit and eat. She gets 7-10 miles in steps a day at work. She has started to use resistance bands and is working on developing a regula routine. She has not been eating after 8:00 pm. Review specific goals if any from provider Goals ??? track ORAL such as Solidcore Systemspal or Lose it, or pen and paper. If using oral or activity monitor, don't add in extra calories for the calories you burn. Self-monitoring What are you doing now? Logging meals If no personal accountability process, what can you add? []Food log: [] daily [] intermittent []Weigh-ins: [] daily [] weekly []Exercise log []Gratitude journal []Other: Food Behaviors (optional): Current concerns/challengese (eating outside of prescribed hours, struggling with snacking, portioncontrol, craving, etc): Not eating after 8:00pm Future follow-up with health coach professional athletes will address identified areas of concern: [x] Exercise []Sleep [x]Stress [x]Accountability []Food Behaviors [x]Self-compassion Below are guidelines for optimal health that will help you, OVER TIME, to achieve. We do not expectyou to adopt everything all at once or make huge leaps. We don't even expect that you will achieve them all because nobody is perfect! Nutrition: Whole food, quality diet, more plants. (See the back page of your Welcome Book). This oly general recommendation for all patients. Your dietitian and provider will help make more specificrecommendations for you if appropriate. Avoid drinking your calories in the form of fruit juice, soda pop or other sweetened beverages. Choose water. Activity: to maintain weight loss evidence supports 360-420 minutes per week (60min daily). Each week, 1 hour of this time should be divided into 2 or 3 sessions of resistance (weight) training. The rest would be cardio. We do not know the threshold for non-structured activity, but if you are taking about 10,000 steps daily, you may be meeting this goal for cardiac activity. You can build your activity level slowly and methodically. Your Weight&Wellness team will help you develop a plan that works for you. Sleep: 7-8 hours of restful sleep per night with minimal or no interruptions. If this is not happening, talk to your provider about how we can help. Self-monitoring: most people benefit from some form of accountability. This can be: food tracking- either in an oral or on paper, monitoring weight daily or monthly, exercise tracking. Pick something to track. Stress management: managing stress comes in many different forms from meditation to exercise to simply increasing mindfulness throughout the day. Your health coach professional athletes is well-equipped to guide you to find something to look forward to everyday. Eating behaviors: many people benefit from restricting the hours in which they eat. You can choose an eating window of 8-12 hours to start. Make a pact with yourself that you will not take in anything with caloric content outside this window. Your early childhood associate teacher may make further recommendations documented in this encounter Plan of Treatment Upcoming Encounters Date Type Department Care Team (Late st Contact Info) Description 12/31/2024 10:00 AM EST Office [place] [phone] Mercy Amanda MD [facility] [address] [facility] [address] 04/01/2025 2:00 PM EDT Office [place] [phone] Erum Szymanski MD [facility] [place] [address] documented as of this encounter Goals Goal [...] body (and put a number on that) documented as of this encounter Visit Diagnoses Diagnosis Adult BMI 38.0-38.9 kg/sq m Body Mass Index 38.0-38.9, adult documented in this encounter Care Teams Kick Press Setter Relationship Specialty Start Date End Date Sonido Cordoba [place] [address] [place] [address] PCP - General Family Medicine 07/06/20 documented as of this encounter
--- OUTSIDE RECORDS SUMMARY | 2024-10-16 17:39 | XMS_ITS | Encounter Summary ---
Author Organization [facility] [place] [address] Care Team Providers Care Director Behavioral Health Name Role Phone Sonido Cordoba Primary Care Provider [phone]- [phone] Encounter Details Date Type Department Care Team (Late st Contact Info) Description 09/08/2022 1:30 PM EDT Office Visit Weight and Wellness at [address] [phone] Mercy Amanda MD [facility] [address] [facility] [place], [place] [id number] Class 3 severe obesity with serious comorbidity [...] Sign Reading Time Taken Comments Blood Pressure 150/80 09/08/2022 1:35 PM EDT pt had a stresful morning Pulse 80 09/08/2022 1:35 PM EDT Temperature - - Respiratory Rate - - Oxygen Saturation 97% 09/08/2022 1:3 5 PM EDT Inhaled Oxygen Concentration - - Weight 102.9 kg (226 lb 12.8 oz) 09/08/2022 1:35 PM EDT Height 160.2 cm (5' 3.07) 09/08/2022 1 :35 PM EDT Body Mass Index 40.09 09/08/2022 1:35 PM EDT documented in this encounter Progress Notes * Mercy Amanda MD - 09/08/2022 1:30 PM EDTSummary: 6th visit jenny RIVAS [facility] [place] Patient Name: Vianney Cordero Date of : 1975 Age: 46 y.o. WANDY Aguilera Thank you for referring Vianney Cordero to the [facility]ness Center. I saw her for a follow-up visit today, 09/10/22. Please see changes to care as documented in the assessment and plan. CHIEF COMPLAINT: F/u for treatment of WHO Class 3 / EOSS Stage 2 Obesity defined by initial BMI and comorbidities GERD/Barretts. This is Visit #6 [facility] visit for this 46 y.o. patient. Initial visit: 10/06/2021, 217 lbs (22 lbs, 10%) 01/09/2022, 227 lbs + 10 lbs 02/10/2022, 228 lbs +1 lbs 04/21/2022, 227 lbs - 1 lbs 06/25/2022, 219 lbs (-8 lbs, + 2 total) 09/08/2022, 226.8 lbs (+7.8 lbs + 9.8 lbs) [facility] Team: Priti Skinner RD and Erik Sorenson, Health Head Screen Worker HPI Had lap kelley in August at [facility]. Went home same day. No postop issues. Stopped phentermine a month ago. Ran out of Metformin 2 weeks ago. PILLARS Stress - life is good, back to work, happy again and feeling better after lap kelley. At [facility] and one day a week at [facility]. Sleep - sleeping ok, getting 6 hours, sometimes wakes and tosses and turns, sometimes sleeps through, sometimes wakes to use BR. Movement - since GB recovery, starting to walk the halls at work. Joining squat challenge through work. Not using track bc of school sports. Plan to use [employer] and [employer] for the winter. Nutrition - B - eggs and 1 slice toast sometimes with culp or sausage L - salad - BV or armenian, with chicken D - whatever we have - chicken/steak/hamburger, vegy, rice/potato - cutting servings in half Drinking water AOM: Currently taking: None - stopped Metformin 2000 mg, phentermine 8 mg - 2 to 4 weeks ago, had surgery and ran out AOM HX: Saxenda denied - no AOMs covered by [place] Medicaid C/I: GB? NO s/p lap CCY [...] []Surgery []Culinary []ACT []Monthly Lifestyle Classes Discussion 09/10/22: Current pillars reviewed. Will restart metformin and phentermine and titrate upwards. No time for additional appts given work schedule. Will look at [facility] info again. [facility] PATHWAY - ADULT 10/06/2021 Obesity Medicine Activate Adult Biobank Decline Goals ??? breakfast choices Continue to eat for the first time when you feel hungry, though consider eating before the car so you can have other options. Consider as many food groups as possible. At breakfast, we want to start with protein as a priority: - Eggs - Cheese - Nigerien yogurt / cottage cheese - meat - fish - nuts/seeds - protein shake or bar Start with the protein, can choose to add other foods (would rather have you choose regular bread/ moroccan muffin, etc. - whole wheat if possible- [...] in order of priority VITAL SIGNS: Vitals: 09/08/22 1335 BP: 150/80 Pulse: 80 SpO2: 97% Weight: 102.9 kg (226 lb 12.8 oz) Height: 160.2 cm (5' 3.07) Body mass index is 40.09 kg/m??. PHYSICAL EXAM: Gen: Alert and appropriate, NAD. Mood and affect appropriate, more positive and upbeat Generalized obesity LABS: Lab Results Component Value [...] (H) 02/10/2022 Lab Results Component Value Date [id number] 02/10/2022 25-OH Vit D Total (ng/mL) [...] at this time AOM: Metformin XR Phentermine Factors contributing to decision making: NO hx [...] resistance Elevated ferritin Elevated LDL cholesterol level No orders of the defined types were placed in this encounter. Return in about 2 months (around 11/08/2022) for In person or Zoom, With KENDALL rivas. 3 min chart review 30 min [id number] Visit time 5 min Documentation time I [...] AM EST Office [place] [phone] Mercy Amanda MD [facility] [address] [facility] [address] 04/01/2025 2:00 PM EDT Office [place] [address] Erum Szymanski MD [facility] [place] [address] documented as of this encounter Goals Goal [...] a priority: - Eggs - Cheese - Nigerien yogurt / cottage cheese - meat - fish - nuts/seeds - protein shake or bar Start with the protein, can choose to add other foods (would rather have you choose regular bread/ moroccan muffin, etc. - whole wheat if possible- [...] hypercholesterolemia documented in this encounter Care Teams Director Behavioral Health Relationship Specialty Start Date End Date Sonido Cordoba PA [address] [place] [address] PCP - General Family Medicine 07/06/20 documented as of this encounter
--- OUTSIDE RECORDS SUMMARY | 2024-10-16 17:39 | XMS_ITS | Encounter Summary ---
[place] [address] Care Team Providers Care Preparation Plant Supervisor Name Role Phone Sonido Cordoba Primary Care Provider [phone]- [phone] Encounter Details Date Type Department Care Team (Late st Contact Info) Description 05/24/2021 1:00 PM EDT Procedure visit Gastroenterology at [place], [place] [phone] Heartburn Social History Tobacco Use Types Packs/Day Years [...] as of this encounter Progress Notes * Erki Asencio, ANA PAULA - 05/24/2021 1:00 PM EDT Prior to placement of the Branham pH capsule, a description of the procedure was provided to the patient. All questions were answered and the patient verbalized understanding. Written instructions weregiven to the patient as well. At 1317 a Branham pH capsule was deployed by Dr. Carnes following the EGD procedure. The capsule was placed 29cm from the incisors without difficulty and was visualized via the endoscope with good attachment to the esophageal wall. This study is being performed on acid suppressants. The patient is taking Protonix 40mg twice daily am and pm. First pH: 6.3 * Doroteo Allred MD - 05/24/2021 1:00 PM EDT Wireless pH-metry (Branham) procedure report Patient: Vianney Cordero Address: [address] [place] [id number] : 1975 Referring provider: Sonido Cordoba Date of service: 05/31/21 Indication: heartburn Procedure: The Branham probe was placed in the usual fashion 6cm above the gastroesophageal junction. The patient was instructed to keep a diary of symptoms, and returned 2 days later for downloading the data. Testing performed ON pantoprazole 40mg twice daily acid-suppressive therapy. Analysis Duration Total (HH:MM): 47:59 Analysis Duration Upright (HH:MM): 31:05 Analysis Duration Supine (HH:MM): 16:54 Acid exposure time (AET): Day 1 Day 2 Overall Total distal esophageal acid exposure time % of testing period 0.1 0.4 0.2 Upright distal esophageal acid exposure time % of testing period 0.1 0.5 0.3 Supine distal esophageal acid exposure time % of testing period 0.0 0.1 0.0 DeMeester Score: 1.5 (normal: <14.7) Normal values for total 48-hour average-day acid exposure time (AET) defined as the % of time with a pH <4 Evidence for pathologic reflux: AET >=5.1% No convincing evidence of pathologic reflux: AET <5.1% Normal values for worst-day acid exposure time (AET) defined as the % of time with a pH <4 Conclusive evidence for pathologic reflux: AET >7.0% Borderline or inconclusive evidence for pathologic reflux: AET 4.0% to 7.0% Evidence against pathologic reflux: AET <4.0% Reflux symptom association (RSA): SYMPTOM EVENTS SYMPTOM INDEX (SI) Symptom Associated Probability (SAP) Heartburn 24 0.0 0.0 Globus sensation 1 0.0 0.0 Regurgitation 2 0.0 0.0 Interpretation of reflux symptom association (RSA) Positive association: Symptom Associated Probability [SAP] > 95% AND Symptom Index [SI] > 50% No convincing association: Symptom Associated Probability [SAP] > 95% OR Symptom Index [SI] >50% No evidence of association: Symptom Associated Probability [SAP] < 95% AND Symptom Index [SI] < 50% Impression based on the Maki classification: No evidence of breakthrough acid reflux tested on pantoprazole 40mg twice daily as ordered. Please note these results do not rule out the presence of weakly acidic or non-acidic reflux; consider an OFF-PPI test to evaluate this possibility if a diagnosis of pathologic reflux has not been conclusively made. The aggregate DeMeester composite score fell within the normal range at 1.5. No evidence of association between reflux and recorded symptoms. This study is consistent with functional heartburn/regurgitation or non- acidic/weakly acidic reflux(which can cause reflux hypersensitivity). If needed, this can be differentiated on a Ph impedance study. Also, these findings can be seen in rumination syndrome or supragastric belching depending onthe clinical history and context. References: 1) Modern diagnosis of GERD: the Maki Consensus. Gut. 2018 May; 67(7): 1147-5429. 2) Validation of the Maki classification for GORD diagnosis: acid exposure time assessed by prolonged wireless pH monitoring in healthy controls and patients with erosive oesophagitis. Gut. 2020. doi10.1136/jbpxxt-4452-631038. Doroteo Allred MD Section of Gastroenterology and Hepatology [facility] [place] [address] [address] V: [phone] F: [phone] CC/ETC: WANDY Aguilera [address] [place] [address] documented in this encounter Plan of Treatment Upcoming Encounters Date Type Department Care Team (Late st Contact Info) Description 12/31/2024 10:00 AM EST Office [place] [address] Mercy Amanda MD [facility] [address] [facility] [address] 04/01/2025 2:00 PM EDT Office [place] [address] Eurm Szymanski MD [facility] [place] [address] documented as of this encounter Visit Diagnoses Diagnosis Heartburn documented in this encounter Care Teams Preparation Plant Supervisor Relationship Specialty Start Date End Date Sonido Cordoba PA [address] [place] [address] PCP - General Family Medicine 07/06/20 documented as of this encounter
--- OUTSIDE RECORDS SUMMARY | 2024-10-16 17:39 | XMS_ITS | Encounter Summary ---
Author Organization [facility] [place] [address] Care Team Providers Care Awning Hanger Helper Name Role Phone Sonido Cordoba Primary Care Provider +1- [phone] Reason for Visit * Reason Comments Follow-up Weight management Encounter Details Date Type Department Care Team (Late st Contact Info) Description 04/21/2022 2:00 PM EDT Office Visit Weight and Wellness at [address] [phone] Mercy Amanda MD [facility] [address] [facility] [place], [place] [phone] Class 3 severe obesity with serious comorbidity and body mass index (BMI) of 40.0 to 44.9 in adult, unspecified obesity type; Vitamin D deficiency Social History Tobacco Use [...] Sign Reading Time Taken Comments Blood Pressure 111/47 04/21/2022 1:49 PM EDT Pulse 79 04/21/2022 1:49 PM EDT Temperature - - Respiratory Rate - - Oxygen Saturation 96% 04/21/2022 1:49 PM EDT Inhaled Oxygen Concentration - - Weight 103.2 kg (227 lb 8 oz) 04/21/2022 1:49 PM EDT Height 160.2 cm (5' 3.07) 04/21/2022 1:49 PM ED T Body Mass Index 40.21 04/21/2022 1:49 PM EDT documented in this encounter Patient Instructions * Patient Instructions* Mercy Amanda MD - 04/22/2022 10:22 PM EDT Great to see you Vianney - keep up the AMAZING work! The scale will move I promise! I reviewed your labs again and you are Vit D deficient, so I sent in high dose Vit D to your pharmacy. Please check your BP at work the week we start the phentermine and then the week you go from 1/2 a pill to a whole pill. Make sure to send me your readings. See you in a month! documented in this encounter Progress Notes * Mercy Amanda MD - 04/21/2022 2:00 PM EDTSummary: 4th visit with MD [facility] Patient Name: Vianney Cordero Date of : 1975 Age: 46 y.o. WANDY Aguilera Thank you for referring Vianney Cordero to the [facility] Center. I saw her for a follow-up visit today, 04/22/22. Please see changes to care as documented in the assessment and plan. CHIEF COMPLAINT: F/u for treatment of WHO Class 3 / EOSS Stage 2 Obesity defined by initial BMI and comorbidities GERD/Barretts. This is Visit #4 [facility] visit for this 46 y.o. patient. Initial visit: 10/06/2021, 217 lbs (22 lbs, 10%) 01/09/2022, 227 lbs + 10 lbs 02/10/2022, 228 lbs +1 lbs 04/21/2022, 277 lbs - [address] 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 Loves being able to help people. 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 Trying to get out of the house by 5 and walks for an hour in the morning, plus 1-1/2 hours in afternoon. Diet Trying to eat 2 HB eggs in morning OR carnation instant breakfast - added fruit to the morning Still salad for lunch and meat/potatos for dinner - always salad for lunch or fruit bowl; snacking on carrots Not hungry usually until 330 -4 PM AOM: Currently taking: none AOM HX: Saxenda denied - no AOMs covered by [place] Medicaid C/I: NO pancreatitis YES kidney stone NO - thyroid CA/MTC NO - kidney issues NO - glaucoma Obesogenic meds: ?Flexeril? COMORBIDITIES ADDRESSED: YAHIR HTN - NO HL - ? FLD [...] carbohydrate intake, CHANO/IF may be of benefit Behavior: NO CONCERNS Activity: See goals Barriers: []needs cardiac eval []injury/pain preventing activity right now Stress Management:no concerns Sleep: no concerns Self-monitoring: Food log Pathway: [x]Individual []HLP []Surgery []Culinary []ACT []Monthly Lifestyle Classes Discussion 04/22/22: Medication options with r/b-continue Metformin, add phentermine - pt knows FDAapproved for three months only and then may weigh R/b of topiramate to continue combo L/T. [facility] PATHWAY - ADULT 10/06/2021 Obesity Medicine Activate Adult Biobank Decline Goals ??? breakfast choices Continue to eat for the first time when you feel hungry, though consider eating before the car so you can have other options. Consider as many food groups as possible. At breakfast, we want to start with protein as a priority: - Eggs - Cheese - Wallisian yogurt / cottage cheese - meat - [...] in order of priority VITAL SIGNS: Vitals: 04/21/22 1349 BP: 111/47 Pulse: 79 SpO2: 96% Weight: 103.2 kg (227 lb 8 oz) Height: 160.2 cm (5' 3.07) Body mass index is 40.21 kg/m??. PHYSICAL EXAM: Gen: Alert and appropriate, NAD. Mood and affect appropriate Generalized obesity LABS: Lab Results Component Value [...] (H) 02/10/2022 Lab Results Component Value Date [id number] 02/10/2022 25-OH Vit D Total (ng/mL) Date Value Status 02/10/2022 20 (L) Final ASSESSMENT AND PLAN Flacoellegreg Jeremie Mao Cordero was seen in follow up today for ongoing obesity, not yet at treatment goal [] with improvement [x] without change. Goals and treatment options were discussed. Continue medical management and lifestyle changes FACTORS CONTRIBUTING TO OBESITY Risk Stratification: probable insulin resistance Obesogenic meds: ?Flexeril? Plan: No change at this time Co-morbidities addressed: GERD Referrals pending: Dietitian, Health Scaffolding Helper AOM: Factors contributing to decision making: NO hx of pancreatitis, NO Fam or personl hx of medullary thyroid ca, NO hx of kidney stones, NO Hx of glaucoma/regular eye check, Insulin resistance Metformin, adding phentermine (3 months) Vianney was seen today for follow-up . Diagnoses and all orders for this visit: Class 3 severe obesity with serious comorbidity and body mass index (BMI) of 40.0 to 44.9 in adult,unspecified obesity type - Phentermine (Lomaira) 8 mg Tablet; Take 1 tablet by mouth every morning. Take 1/2 tablet x 2 weeks, then 1 tablet daily. Vitamin D deficiency - ergocalciferoL, vitamin D2, (vitamin D2) 50,000 unit Capsule; Take 1 capsule by mouth once a weekfor 56 days. After completion of prescription, begin taking lower daily doses of Vit D per provider's instruction. (Usually 1000-2000IU daily) No orders of the defined types were placed in this encounter. Return in about 4 weeks (around 05/19/2022) for In person or Zoom, With me. 3 min chart review 30 min [id number] Visit time 5 min Documentation time I [...] AM EST Office [place] [address] Mercy Amanda MD [facility] [address] [place] [address] 04/01/2025 2:00 PM EDT Office [place] [phone] Erum Szymanski MD [facility] [place] [address] documented as of this encounter Goals Goal [...] a priority: - Eggs - Cheese - Wallisian yogurt / cottage cheese - meat - [...] adult, unspecified obesity type Vitamin D deficiency Unspecified vitamin D deficiency documented in this encounter Care Teams Awning Hanger Helper Relationship Specialty Start Date End Date Sonido Cordoba PA [address] [place] [address] PCP - General Family Medicine 07/06/20 documented as of this encounter
--- OUTSIDE RECORDS SUMMARY | 2024-10-16 17:39 | XMS_ITS | Encounter Summary ---
[place] [address] Care Team Providers Care Assistant Oceanographer Name Role Phone Sonido Cordoba Primary Care Provider +1- [phone] Encounter Details Date Type Department Care Team (Late st Contact Info) Description 12/22/2021 Telephone [place] [phone] Melina Hobbs CMA GASTROENTEROLOGY DEPT Social History Tobacco Use Types Packs/Day Years [...] encounter Miscellaneous Notes * Telephone Encounter - Melina Hobbs CMA - 12/22/2021 10:08 AM EST Medication Prior Authorization 4L Gastroenterology / [place] [address] Subscriber Insurance: [place] Medicaid Phone: Fax: Physician: Erum Szymanski Return Pharmacy: Phone: Fax: Medication Requested: Pantoprazole Strength: 40 mg Frequency: BID Disp.: 60 Refills: 11 Currently taking: yes Diagnosis for this medication: 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 (K22.70); Gastroesophageal reflux disease with esophagitis, unspecified whether hemorrhage (K21.00) Prior medications trialed in this patient: Pantoprazole QD Omeprazole Medication: Outcome/Adverse Reactions: treatment failure Decision: approved: The dosing of long-term PPI's should be periodically re- evaluated so that the lowest effective dose can be prescribed to manage the condition. Re-trial of once daily dosing of PPIwith an adjunctive H2 carmelita will be required before consideration of re-approval next year. Trackin Dates: 12/22/2021-12/22/2022 documented in this encounter Plan of Treatment Upcoming Encounters Date Type Department Care Team (Late st Contact Info) Description 12/31/2024 10:00 AM EST Office [place] [address] Mercy Amanda MD [facility] [address] [facility] [address] 04/01/2025 2:00 PM EDT Office Visit [place] [address] Erum Szymanski MD [facility] [place] [place] [address] documented as of this encounter Goals Goal [...] a priority: - Eggs - Cheese - Dominican yogurt / cottage cheese - meat - fish - nuts/seeds - protein shake or bar Start with the protein, can choose to add other foods (would rather have you choose regular bread/ uzbek muffin, etc. - whole wheat if possible- [...] on filedocumented in this encounter Care Teams Assistant Oceanographer Relationship Specialty Start Date End Date Sonido Cordoba PA [address] [place] [address] PCP - General Family Medicine 07/06/20 documented as of this encounter
--- OUTSIDE RECORDS SUMMARY | 2024-10-16 17:39 | XMS_ITS | Encounter Summary ---
[place] [address] Care Team Providers Care Picker Tender Helper Name Role Phone Sonido Cordoba Primary Care Provider +1- [phone] Reason for Visit * Reason Onset Date Comments Appointment 07/19/2021 Encounter Details Date Type Department Care Team (Late st Contact Info) Description 07/19/2021 Telephone [place] [address] Gracy Ellis PA [facility] [place] [address] Appointment Social History Tobacco Use Types Packs/Day [...] encounter Miscellaneous Notes * Telephone Encounter - Ania Garcia - 07/19/2021 3:25 PM EDT Scheduled. * Telephone Encounter - Zach, Sabiha Dino - 07/19/2021 2:39 PM EDT L/M #1 TO SCHEDULE F/U W/ MANDY DARI FOR: XR s/p 08/12/2020 (Li) Right peroneal brevis tendon debridement/tubularization. PAIN/SWELLING/NUMBNESS IN 3 TOES documented in this encounter Plan of Treatment Upcoming Encounters Date Type Department Care Team (Late st Contact Info) Description 12/31/2024 10:00 AM EST Office [place] [address] Mercy Amanda MD [facility] [address] [place] [address] 04/01/2025 2:00 PM EDT Office Visit [place] [address] Erum Szymanski MD [facility] [place] [address] documented as of this encounter Visit Diagnoses Not on filedocumented in this encounter Care Teams Picker Tender Helper Relationship Specialty Start Date End Date Sonido Cordoba PA [address] [place] [address] PCP - General Family Medicine 07/06/20 documented as of this encounter
--- OUTSIDE RECORDS SUMMARY | 2024-10-16 17:39 | XMS_ITS | Encounter Summary ---
[place] [address] Care Team Providers Care Activated Sludge Operator Name Role Phone Sonido Cordoba Primary Care Provider +1- [phone] Encounter Details Date Type Department Care Team (Latest Contact Info) Description 08/07/2022 4:01 PM EDT - 08/07/2022 11:59 PM EDT Hospital [place] [phone] Discharge Disposition: Home Social History Tobacco Use [...] daily as needed. Phentermine (Lomaira) 8 mg TabletIndications:Class 2 severe obesity with serious comorbidity and body mass index (BMI) of 38.0 to 38.9 in adult, unspecified obesity type Take 1 tablet by mouth every morning. Take 1/2 tablet by mouth around 10 AM. 45 tablet 3 07/05/2022 09/08/2022 metFORMIN XR (Glucophage XR) 500 mg Tablet Sustained Release 24 hrIndications:Insulin resistance Take 4 tablets by mouth daily. With dinner 360 tablet 05/30/2022 09/08/2022 pantoprazole EC (Protonix) 40 mg Tablet, Delayed Release (E.C.)Indications:Goode tt's esophagus without dysplasia,Gastroesophag eal reflux disease with esophagitis, unspecified whether hemorrhage Take 1 tablet by mouth 2 times daily (before meals). 60 tablet 11 12/21/2021 01/17/2023 acetaminophen (Tylenol) 500 mg Tablet Take 1,000 mg by mouth every 6 hours as needed for Pain. 05/30/2024 traZODone (DESYREL) 50 mg Tablet nightly as needed. 0 02/08/2016 documented as of this encounter Plan of Treatment Upcoming Encounters Date Type Department Care Team (Late st Contact Info) Description 12/31/2024 10:00 AM EST Office [place] [phone] Mercy Amanda MD [facility] [address] [facility] [address] 04/01/2025 2:00 PM EDT Office [place] [phone] Erum Szymanski MD [facility] [place] [address] documented as of this encounter Goals Goal [...] Procedure Name Priority Date/Time Associated Diagnosis Comments SURGICAL PATHOLOGY REPORT Routine 08/07/2022 9:00 AM EDT documented in this encounter Results * Surgical Pathology Report (08/07/2022 9:00 AM EDT) Final Diagnosis [id number] ? Location: [facility] The signing pathologist has (i) examined the relevant preparation(s) for the specimen(s) and (ii) rendered or confirmed the diagnosis(es). . ?Surgical Pathology DIAGNOSIS A - Gallbladder, excision: - ??Cholesterolosis . Electronically signed by: ?Stoney Gomez MD Verified: ??08/15/2022 16:11 ??Pathologist Performed at: ??-[facility] Dept. of [place]ology, [place], [place] SPECIMEN(S) SUBMITTED A - Gallbladder, excision CARBON COPY: Belinda Cordoba CLINICAL INFORMATION Biliary colic symptoms. Normal ultrasound and IOA scan SPECIMEN PROCESSING A - Labeled/Fixative: Gallbladder, formalin. Quantity/Size: ??Single, 5.9 x 2.5 x 1.4 cm. Specimen Description: Gallbladder, received incised. Serosa: Gray-green, smooth Hepatic margin: Rough irregular gray-green Lumen contents: green-black, mucoid, bile. Gallstones: Absent Mucosa: Velvety, gray-green with focal gray-white flecks Wall: 0.2 cm thick. Duct: 0.2 cm, patent. Ink Designation: The hepatic margin is inked black Sections/Processi ng: Training Manager sections in 1 cassettes as follows: ?A1: ??cystic duct margin and unit support representative mucosa. ??pps 08/15/2022 4:11 PM EDT [facility] GALLBLADDER STRUCTURE / Unknown 08/07/2022 9:00 AM EDT 08/07/2022 9:00 AM EDT Guanako Barclay DO PATHOLOGY/CYT OLOGY ORDERABLES [facility] [place] [address] documented in this encounter Visit Diagnoses Not on filedocumented in this encounter Care Teams Activated Sludge Operator Relationship Specialty Start Date End Date Sonido Cordoba PA [address] [place] [address] PCP - General Family Medicine 07/06/20 documented as of this encounter
--- OUTSIDE RECORDS SUMMARY | 2024-10-16 17:39 | XMS_ITS | Encounter Summary ---
[place] [address] Care Team Providers Care Manager Welding Name Role Phone Sonido Cordoba Primary Care Provider +1- [phone] Encounter Details Date Type Department Care Team (Late st Contact Info) Description 09/30/2021 Notes Only Weight and Wellness at [facility] [address] [place] [address] Kezia Preston, RN Social History Tobacco Use [...] as of this encounter Progress Notes * Kezia Preston - 09/30/2021 11:15 AM EST [facility] New Patient Referral Chart Prep Note Vianney Cordero 1975 Referring Provider: Erum Szymanski (Gastro) [x] [facility] referral (Epic) [] External Referral (scanned document) Referral documents available [x] Referral [x] Most recent PCP note or care summary - date: 04/22/21 [x] Labs [x] in Epic [x] Scanned / [x] Entered into EPIC [] Imaging [] in Epic [] Scanned / Type and date: Requested today: Chart Prep [x] Height [x] Added to sticky [x] Weight [x] Added to sticky documented in this encounter Plan of Treatment Upcoming Encounters Date Type Department Care Team (Late st Contact Info) Description 12/31/2024 10:00 AM EST Office Visit [place] [phone] Mercy Amanda MD [facility] [address] [facility] [address] 04/01/2025 2:00 PM EDT Office Visit [place] [phone] Erum Szymanski MD [facility] [place] [address] documented as of this encounter Visit Diagnoses Not on filedocumented in this encounter Care Teams Manager Welding Relationship Specialty Start Date End Date Sonido Cordoba PA [address] [place] [address] PCP - General Family Medicine 07/06/20 documented as of this encounter
--- OUTSIDE RECORDS SUMMARY | 2024-10-16 17:39 | XMS_ITS | Encounter Summary ---
[place] [address] Care Team Providers Care Cash Register Balancer Name Role Phone Sonido Cordoba Primary Care Provider +1- [phone] Encounter Details Date Type Department Care Team (Late st Contact Info) Description 01/26/2022 Interpretation Only [facility] [address] [place] [address] Guanako Barclay, DO [address] [place] [address] Social History Tobacco Use Types Packs/Day Years [...] AM EST [place] [address] Mercy Amanda MD [facility] [address] [place] [address] 04/01/2025 2:00 PM EDT Office Visit [facility]ology at [facility] [place] [address] Erum Szymanski MD [facility] [place] [address] documented as of this encounter Goals Goal [...] a priority: - Eggs - Cheese - Malawian yogurt / cottage cheese - meat - fish - nuts/seeds - protein shake or bar Start with the protein, can choose to add other foods (would rather have you choose regular bread/ nepali muffin, etc. - whole wheat if possible- [...] Procedure Name Priority Date/Time Associated Diagnosis Comments US ABDOMEN LIMITED Routine 01/26/2022 2: 13 PM EDT documented in this encounter Results * US Abdomen Limited (01/26/2022 2:13 PM EDT) PT CLASS O RAD ADMITDTTM RAD PT RAD INFO [id number]^D ANIELSON^CHR ISTOPHER RAD EXAM DESC UABDLIM^US ABDOMEN LIMITED^RIS RAD Anatomical Region Laterality Modality Abdomen Ultrasound Impressions 01/26/2022 2:23 PM EDT Unremarkable appearance of the right upper quadrant. No liver, gallbladder or biliary pathology detected. Thank you for letting us participate in the care of this patient. ??If you are a health care provider and have any questions regarding this report, please contact the number below. ??For patients who have questions please contact the health career coach that requested your imaging first. ? Electronically signed by: Rustam Roman MD, [facility] ([phone]), at 01/26/2022 2:23 PM Narrative 01/26/2022 2:23 PM EDT EXAMINATION: US ABDOMEN LIMITED CLINICAL HISTORY: Unspecified abdominal pain TECHNIQUE: Ultrasound of the right upper quadrant was performed. COMPARISON: None FINDINGS: Liver is not enlarged at 19 cm craniocaudally and demonstrates normal echogenicity without mass. There is a small focus of fatty infiltration adjacent to the gallbladder fossa. Portal vein is patent with hepatopetal flow. Gallbladder is unremarkable without pericholecystic fluid, gallbladder wall thickening or stones. Common bile duct measures 3mm. Imaged portion of the pancreas is unremarkable. Pancreatic tail is obscured by overlying bowel gas. The right kidney is unremarkable without hydronephrosis and measures 12cm. Procedure Note Rustam Roman MD - 01/26/2022 EXAMINATION: US ABDOMEN LIMITED CLINICAL HISTORY: Unspecified abdominal pain TECHNIQUE: Ultrasound of the right upper quadrant was performed. COMPARISON: None FINDINGS: Liver is not enlarged at 19 cm craniocaudally and demonstratesnormal echogenicity without mass. There is a small focus of fatty infiltrationadjacent to the gallbladder fossa. Portal vein is patent with hepatopetal flow. Gallbladder is unremarkable without pericholecystic fluid, gallbladderwall thickening or stones. Common bile duct measures 3mm. Imaged portion ofthe pancreas is unremarkable. Pancreatic tail is obscured by overlying bowelgas. The right kidney is unremarkable without hydronephrosis and [id number]. IMPRESSION Unremarkable appearance of the right upper quadrant. No liver, gallbladder or biliary pathology detected. Thank you for letting us participate in the care of this patient. If youare a health care provider and have any questions regarding this report,please contact the number below. For patients who have questions please contactthe health career coach that requested your imaging first. Electronically signed by: Rustam Roman MD, [facility]([phone]), at 01/26/2022 2:23 PM Guanako Barclay DO IMG US GEN OR DERABLES documented in this encounter Visit Diagnoses Not on filedocumented in this encounter Care Teams Cash Register Balancer Relationship Specialty Start Date End Date Sonido Cordoba PA [address] [place] [address] PCP - General Family Medicine 07/06/20 documented as of this encounter
--- OUTSIDE RECORDS SUMMARY | 2024-10-16 17:39 | XMS_ITS | Encounter Summary ---
Author Organization [facility] [place] [address] Care Team Providers Care Renal Nurse Name Role Phone Sonido Cordoba Primary Care Provider [phone]- [phone] Reason for Visit * Reason Comments Follow-up Weight managment Encounter Details Date Type Department Care Team (Late st Contact Info) Description 02/10/2022 10:00 AM EDT Office Visit Weight and Wellness at [address] [phone] Mercy Amanda MD [facility] [place], [place] [id number] Class 3 severe obesity with serious comorbidity [...] Sign Reading Time Taken Comments Blood Pressure 144/95 02/10/2022 10:21 AM EDT Pulse 66 02/10/2022 10:21 AM EDT Temperature - - Respiratory Rate - - Oxygen Saturation 96% 02/10/2022 10: 21 AM EDT Inhaled Oxygen Concentration - - Weight 103.7 kg (228 lb 9.6 oz) 022 10:21 AM EDT Height 160.2 cm (5' 3.07) 02/10/2022 1 0:21 AM EDT Body Mass Index 40.4 02/10/2022 10:21 AM EDT documented in this encounter Patient Instructions * Patient Instructions* Mercy Amnada MD - 02/10/2022 11:08 AM EDT So good to see you again Vianney. Keep trying to make the dietary changes suggested by Priti. Schedule an appt with her as well on your way out. Keep walking! Aim for 150 minutes every week - so 30minutes a day for 5 days at least. I prescribed Saxenda today, here is some information. If it is not covered we will start Metformin for your elevated insulin levels. Here is some general information about Saxenda: Incretins/GLP 1 Receptor Agonists Brand (generic) Names Victoza or Saxenda (liraglutide), Ozempic or Wegovy (semaglutide), Rybelsus (semaglutide oral), Trulicity (dulaglutide) Saxenda and Wegovy are the only incretins that are FDA approved for treatment of obesity. DOSING Saxenda/Victoza DAILY INJECTION Initially: 0.6mg SC QD Increase by 0.6 mg every week Saxenda's highest dose is 3.0mg daily VIctoza is only up to 1.8mg daily for diabetes. Wegovy/Ozempic. WEEKLY INJECTION. Initially: 0.25mg weekly x 4 weeks Increase every 4 weeks Wegovy's highest dose is 2.4mg weekly (0.25, 0.5, 1.0, 1.7, 2.4) Ozempic is only up to 1.0mg Trulicity. WEEKLY INJECTION Not FDA approved for obesity Rybelsus. PO DAILY Initial 3mg x 4 weeks Can increase to 7 mg x 4 weeks Max dose 14 mg How they work: Increase insulin sensitivity Decrease appetite Slow movement of food through the stomach making you feel davidson sooner and longer. When not to use: Family history of medullary thyroid cancer Use cautiously if you have had a history of pancreatitis Other medications For patients with diabetes on insulin: You will likely need to reduce your insulin use when you start this medication, depending on your hemoglobin A1c Common Side Effects (not comprehensive) Most commonly gastrointestinal including but not limited to diarrhea, nausea, taste changes, acid reflux. These side effects may improve after you are on the medication for a few weeks. These side effects are less likely with once weekly and oral dosing What you can do EAT SLOWLY and stop when you feel full. This prevents feeling badly after meals. Starting this medication You must increase the dose slowly. You will have more severe side effects if you start on a high dose. Your doctor will start you at a low dose and prescribe slow titration, increasing the dose everyweek or month. Follow your provider's instructions. If you ever stop this medication for a period of time (one week or more) on purpose or by accident,you will need to begin taking it again at the initial starting dose which may require a new prescription. Monitoring If you do not achieve 5% weight loss at 12 weeks, we will increase the dose or try a different medication Uses Diabetes, weight loss Online information The site below discusses incretins with respect to Insulin resistant, aka Type 2, diabetes. Becauseobesity is often a disease of insulin resistance, the medications help those suffering with obesityin the same way that they help diabetics. https://www.diabeteseducator.org/practice/practice-tools/vwwlwfzm-houmkialus-alx ls/urc-1-olpssfptw https://www.diabeteseducator.org/docs/default-source/practice/educator-tools/glp -1-medications/understanding_glp_final.pdf?sfvrsn=2 The following informational sheet will provide instruction for how to store and inject the injectable forms of incretins. https://www.diabeteseducator.org/practice/practice-tools/rfavhqex-bgsbtkrdof-jla ls/stg-2-xhucxvqxc documented in this encounter Progress Notes * Mercy Amanda MD - 02/10/2022 10:00 AM EDTSummary: 3rd visit with [facility] Patient Name: Vianney Cordero Date of : 1975 Age: 46 y.o. WANDY Aguilera Thank you for referring Vianney Cordero to the [facility]. I saw her for a follow-up visit today, 02/10/22. Please see changes to care as documented in the assessment and plan. CHIEF COMPLAINT: F/u for treatment of WHO Class 3 / EOSS Stage 2 Obesity defined by initial BMI and comorbidities GERD/Barretts. This is Visit #3 [facility] visit for this 46 y.o. patient. 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 Happy and safe for now in life in general (ex in snf, attempting to get out early for medical reason), no current relationship. Denies mental health issues. 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 Diet Trying to eat 2 HB eggs in morning OR carnation instant breakfast Still salad for lunch and meat/potatos for dinner Not hungry usually until 330 -4 PM AOM: Currently taking: none AOM HX: Saxenda 02/10/2022 ordered wt 228 lbs C/I: NO pancreatitis YES kidney stone NO - thyroid CA/MTC NO - kidney issues NO - glaucoma Obesogenic meds: ?Flexeril? COMORBIDITIES ADDRESSED REVIEW OF LABS/DIAGNOSIS SINCE LAST VISIT Pt states she did get labs, RN requesting [x] I reviewed past / interim records [...] Sleep: no concerns Self-monitoring: Food log Pathway: []Individual []HLP []Surgery []Culinary []ACT []Monthly Lifestyle Classes Discusssion 10/25/2022 - Pillars 01/09/2022 - Discussion 02/10/22: Pathways, Medication options with r/b [facility] PATHWAY - ADULT 10/06/2021 Obesity Medicine Activate Adult Biobank Decline Goals ??? breakfast choices Continue to eat for the first time when you feel hungry, though consider eating before the car so you can have other options. Consider as many food groups as possible. At breakfast, we want to start with protein as a priority: - Eggs - Cheese - Bahamian yogurt / cottage cheese - meat - fish - nuts/seeds - protein shake or bar Start with the protein, can choose to add other foods (would rather have you choose regular bread/ marshallese muffin, etc. - whole wheat if possible- [...] in order of priority VITAL SIGNS: Vitals: 02/10/22 1021 BP: (!) 144/95 BP Location (NBP): Right arm Patient Position: Sitting BP Cuff Sizes: Adult (25-34 cm) Pulse: 66 SpO2: 96% Weight: 103.7 kg (228 lb 9.6 oz) Height: 160.2 cm (5' 3.07) Body mass index is 40.4 kg/m??. PHYSICAL EXAM: Gen: Alert and appropriate, NAD. LABS: Lab Results Component Value Date WBC 8.4 04/17/2018 RBC 4.32 04/17/2018 HGB 13.1 04/17/2018 HCT 37.9 04/17/2018 MCV 87.7 04/17/2018 MCH 30.3 04/17/2018 MCHC 34.6 04/17/2018 PLATELET 282 04/17/2018 RDWCV 12.2 04/17/2018 Lab Results Component Value Date NA 137 01/19/2022 K 3.6 01/19/2022 CL 105 01/19/2022 CO2 22 01/19/2022 BUN 22 (H) 01/19/2022 CREATININE 0.69 01/19/2022 GLUCOSE 94 (External Lab) 01/21/2021 GLUCFASTING 87 01/19/2022 CALCIUM 8.3 (L) 01/19/2022 ESTGFR >60 01/19/2022 Lab Results Component Value Date ALT 15 01/19/2022 AST 13 (L) 01/19/2022 ALKPHOS 72 01/19/2022 BILITOT 0.4 01/19/2022 BILIDIR <0.1 12/28/2014 ALBUMIN 3.9 01/19/2022 PROT 7.5 01/19/2022 Lab Results Component Value Date CHLPL 195 10/21/2021 HDL 48 10/21/2021 TRIG 64 10/21/2021 LDLCHOL 135 (H) 10/21/2021 Lab Results Component Value Date HA1C 5.4 10/21/2021 Lab Results Component Value Date TSH 1.954 01/19/2022 Lab Results Component Value Date LABINSU 26.4 10/21/2021 Lab Results Component Value Date GLUCFASTING 87 01/19/2022 Lab Results Component Value Date FERRITIN 109 01/19/2022 Lab Results Component Value Date [id number] 01/19/2022 25-OH Vit D Total (no units) Date Value Status 01/19/2022 22.6 (L) Final ASSESSMENT AND PLAN Vianney Cordero was seen in follow up today for ongoing obesity, not yet at treatment goal [] with improvement [] without change. Goals and treatment options were discussed. Continue medical management and lifestyle changes. Spoke specifically about IR (high insulin level, truncal obesity) and medical management - Metformin, GLP1 RA. R/B/A discussed at length. Pt wants to see if Saxenda covered, otherwise will start Metformin. FACTORS CONTRIBUTING TO OBESITY Risk Stratification: probable insulin resistance Obesogenic meds: ?Flexeril? Plan: No change at this time Co-morbidities addressed: GERD Referrals pending: Dietitian, Health Director Of Application Development AOM: Factors contributing to decision making: NO hx of pancreatitis, NO Fam or personl hx of medullary thyroid ca, NO hx of kidney stones, NO Hx of glaucoma/regular eye check, Insulin resistance Vianney was seen today for follow-up . Diagnoses and all orders for this visit: Class 3 severe obesity with serious comorbidity and body mass index (BMI) of 40.0 to 44.9 in adult,unspecified obesity type - Hemoglobin A1c; Future - Insulin, total; Future - Cancel: Glucose, fasting; Future - liraglutide, weight loss, (SAXENDA) 3 mg/0.5 mL (18 mg/3 mL) Pen Injector; Inject 0.6 mg into themuscle daily for 7 days, THEN 1.2 mg daily for 7 days, THEN 1.8 mg daily for 7 days, THEN 2.4 mg daily for 7 days, THEN 3 mg daily for 7 days. Use abdominal wall. Insulin resistance - liraglutide, weight loss, (SAXENDA) 3 mg/0.5 mL (18 mg/3 mL) Pen Injector; Inject 0.6 mg into themuscle daily for 7 days, THEN 1.2 mg daily for 7 days, THEN 1.8 mg daily for 7 days, THEN 2.4 mg daily for 7 days, THEN 3 mg daily for 7 days. Use abdominal wall. Orders Placed This Encounter Procedures ??? Hemoglobin A1c ??? Insulin, total Return in about 4 weeks (around 03/10/2022) for In person or Zoom, With RD. rob 7 min chart review 30 min [id number] Visit time 5 min Documentation time I [...] AM EST Office [place] [phone] Mercy Amanda MD [facility] [address] 04/01/2025 2:00 PM EDT Office [place] [phone] Erum Szymanski MD [facility] [place] [address] documented as of this encounter Goals Goal [...] a priority: - Eggs - Cheese - Bahamian yogurt / cottage cheese - meat - fish - nuts/seeds - protein shake or bar Start with the protein, can choose to add other foods (would rather have you choose regular bread/ marshallese muffin, etc. - whole wheat if possible- instead of the muffin or poptart) eating timing guides Lifestyle On track( 023 9:49 AM EDT) No Priti Skinner RD [...] of priority documented as of this encounter Results * Insulin, total (02/10/2022 11:26 AM EDT) Insulin 13.6 2.6 - 24.9 mcunit/mL [facility] Blood 02/10/2022 11:2 6 AM EDT 02/10/2022 6:09 PM EDT Narrative Resulting Agency Comment Spec In Lab Mercy Amanda MD CHEMISTRY GLORIA LAURA [facility] [place] [address] * Hemoglobin A1c (02/10/2022 11:26 AM EDT) Hemoglobin A1c 4.9 4.3 - 5.6 % [facility] Comment: Reference Range: 4.3 - 5.6% [...] 36: Suppl. 1, S67-74 Estimated Average Glucose 95 mg/dL [facility] Comment: eAG equivalents for HbA1c percentages: HbA1c(%) ?eAG(mg/dL) 6.0 ?126 6.5 ?140 7.0 ?154 7.5 ?169 8.0 ?183 8.5 ?197 9.0 ?212 9.5 ?226 10.0 ? 240 Limitations: The eAG calculation has not been validated on women, individuals below 18 years old and above 70 years old, and individuals with hemoglobinopathies. Additional resources are available on the ADA website. Pedro BASURTO, Barbara J, Young R, et al. ??Translating the A1C assay into estimated average glucose values. ??Diabetes Care 2008:31(8):8339-5497. Blood 02/10/2022 11:2 6 AM EDT 02/10/2022 2:30 PM EDT Narrative Resulting Agency Comment Spec In Lab Mercy Amanda MD CHEMISTRY GLORIA LAURA [facility] [place] [address] documented in this encounter Visit Diagnoses Diagnosis Class 3 severe obesity with serious comorbidity and body mass index (BMI) of 40.0 to 44.9 in adult, unspecified obesity type Insulin resistance Dysmetabolic Syndrome X documented in this encounter Care Teams Renal Nurse Relationship Specialty Start Date End Date Sonido Cordoba PA [address] [place] [address] PCP - General Family Medicine 07/06/20 documented as of this encounter
--- OUTSIDE RECORDS SUMMARY | 2024-10-16 17:39 | XMS_ITS | Encounter Summary ---
[place] [address] Care Team Providers Care Data Warehouse Analyst Name Role Phone Sonido Cordoba Primary Care Provider +1- [phone] Encounter Details Date Type Department Care Team (Latest Contact Info) Description 02/10/2022 11:35 AM EDT Laboratory Appointment Lab [address] [place] [address] Class 3 severe obesity with serious comorbidity [...] AM EST Office [place] [phone] Mercy Amanda MD [facility] [place] [address] 04/01/2025 2:00 PM EDT Office Visit Gastroenterology at [facility] [place] [address] Erum Szymanski MD [facility] [place] [address] documented as of this encounter Goals Goal [...] a priority: - Eggs - Cheese - Malay yogurt / cottage cheese - meat - [...] Procedure Name Priority Date/Time Associated Diagnosis Comments CMP W/FASTING GLUCOSE Routine 02/10/2022 11:26 AM EDT Class 3 severe obesity with serious comorbidity and body mass index (BMI) of 40.0 to 44.9 in adult, unspecified obesity type HC VITAMIN D TOTAL-25 HYDROXY Routine 02/10/2022 11:26 AM EDT Class 3 severe obesity with serious comorbidity and body mass index (BMI) of 40.0 to 44.9 in adult, unspecified obesity type HC INSULIN LEVEL Routine 02/10/2022 11:2 6 AM EDT Class 3 severe obesity with serious comorbidity and body mass index (BMI) of 40.0 to 44.9 in adult, unspecified obesity type HC THYROID STIMULATING HORMONE, SERUM Routine 02/10/2022 11:26 AM EDT Class 3 severe obesity with serious comorbidity and body mass index (BMI) of 40.0 to 44.9 in adult, unspecified obesity type HC HEMOGLOBIN A1C Routine 02/10/2022 11: 26 AM EDT Class 3 severe obesity with serious comorbidity and body mass index (BMI) of 40.0 to 44.9 in adult, unspecified obesity type HC VENIPUNCTURE Routine 02/10/2022 11:26 AM EDT Class 3 severe obesity with serious comorbidity and body mass index (BMI) of 40.0 to 44.9 in adult, unspecified obesity type HC VITAMIN B12 SERUM Routine 02/10/2022 11:26 AM EDT Class 3 severe obesity with serious comorbidity and body mass index (BMI) of 40.0 to 44.9 in adult, unspecified obesity type documented in this encounter Results * Hemoglobin A1c (02/10/2022 11:26 AM EDT) Hemoglobin A1c 4.9 4.3 - 5.6 % [facility] Comment: Reference Range: 4.3 - 5.6% [...] Mellitus, Diabetes Care 2013; 36: Suppl. 1, B47-48 Estimated Average Glucose 95 mg/dL [facility] Comment: eAG equivalents for HbA1c percentages: [...] into estimated average glucose values. ??Diabetes Care 2008:31(8):1825-6930. Blood 02/10/2022 11:2 6 AM EDT 02/10/2022 2:30 PM EDT Narrative Resulting Agency Comment Spec In Lab Mercy Amanda MD CHEMISTRY ORDLavelle LAURA [facility] [place] [address] * Insulin, total (02/10/2022 11:26 AM EDT) Pathologist [facility] Insulin 13.6 2.6 - 24.9 mcunit/mL [facility] Blood 02/10/2022 11:2 6 AM EDT 02/10/2022 6:09 PM EDT Narrative Resulting Agency Comment Spec In Lab Mercy Amanda MD CHEMISTRY GLORIA LAURA Performing Organization Address [facility] Co de Phone Number [facility] [place] [address] * CMP w/fasting Glucose (02/10/2022 11:26 AM EDT) [facility] Glucose Fasting 94 65 - 99 mg/dL [facility] Comment: ?Fasting* Glucose Interpretive Criteria Normal [...] of Diabetes Mellitus, Position Statement from the [place] Diabetes Association. ??Diabetes Care, Volume 33, Supplement 1, Nov 2009 Blood Urea Nitrogen 12 8 - 18 mg/dL [facility] Creatinine 0.75 0.70 - 1.20 mg/dL [facility] Sodium 138 135 - 145 mmol/L [facility] Potassium 4.0 3.5 - 5.0 mmol/L [facility] Comment: Please note: ??Patients with WBC >100,000 may have falsely elevated Potassium levels. ??For accurate Potassium quantification in these patients send serum separator tube (gold top) for subsequent determinations. ??Contact the Clinical Chemistry Laboratory if there are any questions. Chloride 105 98 - 107 mmol/L [facility] Carbon Dioxide 24 22 - 31 mmol/L [facility] Anion Gap 9 5 - 15 mmol/L [facility] Calcium 9.2 8.5 - 10.5 mg/dL [facility] Protein, Total 7.3 6.1 - 8.0 g/dL [facility] Albumin 4.3 3.2 - 5.2 g/dL [facility] Aspartate Aminotransferase 15 0 - 30 unit/L [facility] Alanine Aminotransferase 9 0 - 30 unit/L [facility] Alkaline Phosphatase 82 35 - 105 unit/L [facility] Bilirubin, Total 0.4 0.2 - 1.3 mg/dL [facility] Est Glomerular Filtration Rate 96 >=60 mL/min/1. 73 m?? [facility] Comment: This patient? s estimated glomerular filtration rate (eGFR) is between 96 mL/min/1.73 m2 (patients with less muscle mass) and 112 mL/min/1.73 m2 (patients with more muscle mass) as determined by the CKD-EPI equation. Assessment of eGFR is not appropriate when creatinine concentrations are rapidly changing. For clinical decisions where creatinine clearance will affect therapy, a 24-hour urine creatinine clearance may be advised. Assignment of CKD stage 1 - 5 for patients with an eGFR near the transition point between stages may be based on clinical assessment of muscle mass and symptoms in addition to eGFR. Blood 02/10/2022 11:2 6 AM EDT 02/10/2022 2:32 PM EDT Narrative Resulting Agency Comment Spec In Lab Mercy Amanda MD CHEMISTRY GLORIA Solorzano Organization Address City/State/ZIP Co de Phone Number [facility] [place] [address] * TSH (02/10/2022 11:26 AM EDT) Thyroid Stimulating Hormone 2.34 0.27 - 4.20 mcIU/mL [facility] Comment: Reference Interval (mcIU/mL): Females: ??First Trimester: 0.23-3.88 ??Second Trimester: 0.22-3.90 ??Third Trimester: 0.44-4.66 Blood 02/10/2022 11:2 6 AM EDT 02/10/2022 2:32 PM EDT Narrative Resulting Agency Comment Spec In Lab Mercy Amanda MD CHEMISTRY ORDLavelle LAURA Performing Organization Address City/[facility]/ZIP Co de Phone Number [facility] [place] [address] * (ABNORMAL) Vitamin D, 25-Hydroxy (02/10/2022 11:26 AM EDT) Vitamin D Total 25 OH 20(L) 21 - 100 ng/mL [facility] Vit D Interp Deficient [facility] Blood 02/10/2022 11:2 6 AM EDT 02/10/2022 6:09 PM EDT Narrative Resulting Agency Comment Spec In Lab Mercy Amanda MD CHEMISTRY ORDLavelle LAURA Performing Organization Address City/[facility]/ZIP Co de Phone Number [facility] [place] [address] * Vitamin B12 (02/10/2022 11:26 AM EDT) Vitamin B12 542 232 - 1,245 pg/mL [facility] Blood 02/10/2022 11:2 6 AM EDT 02/10/2022 6:09 PM EDT Narrative Resulting Agency Comment Spec In Lab Mercy Amanda MD CHEMISTRY ORDLavelle LAURA [facility] [place] [address] * (ABNORMAL) Ferritin (02/10/2022 11:26 AM EDT) Ferritin 161(H) 15 - 150 ng/mL [facility] Comment: Pediatric reference ranges not verified at [facility], interpret with caution. Reference ranges for females greater than 50 years of age approach values for men, i.e., 30-400 ng/mL. Blood 02/10/2022 11:2 6 AM EDT 02/10/2022 6:09 PM EDT Narrative Resulting Agency Comment Spec In Lab Mercy Amanda MD CHEMISTRY GLORIA LAURA Performing Organization Address [facility] Co de Phone Number [facility] [place] [address] documented in this encounter Visit Diagnoses Diagnosis Class 3 severe obesity with serious comorbidity and body mass index (BMI) of 40.0 to 44.9 in adult, unspecified obesity type documented in this encounter Care Teams Data Warehouse Analyst Relationship Specialty Start Date End Date Sonido Cordoba PA [address] [place] [address] PCP - General Family Medicine 07/06/20 documented as of this encounter
--- OUTSIDE RECORDS SUMMARY | 2024-10-16 17:39 | XMS_ITS | Encounter Summary ---
Author Organization [facility] [place] [address] Care Team Providers Care Secondary Social Studies Teacher Name Role Phone Sonido Cordoba Primary Care Provider [phone]- [phone] Reason for Visit * Reason Comments Follow-up Weight manament Encounter Details Date Type Department Care Team (Late st Contact Info) Description 07/05/2022 9:00 AM EDT Office Visit Weight and Wellness at [address] [phone] Mercy Amanda MD [facility] DR [facility] [place], [place] [id number] Class 2 severe obesity with serious comorbidity and body mass index (BMI) of 38.0 to 38.9 in adult, unspecified obesity type; Insulin resistance [...] Sign Reading Time Taken Comments Blood Pressure 141/69 07/05/2022 9:04 AM EDT Pulse 63 07/05/2022 9:04 AM EDT Temperature - - Respiratory Rate - - Oxygen Saturation 99% 07/05/2022 9:04 AM EDT Inhaled Oxygen Concentration - - Weight 99.7 kg (219 lb 11.2 oz) 07/05/2022 9:04 AM EDT Height 160.2 cm (5' 3.07) 07/05/2022 9:04 AM ED T Body Mass Index 38.83 07/05/2022 9:04 AM EDT documented in this encounter Patient Instructions * Patient Instructions* Mercy Amanda MD - 07/05/2022 9:00 AM EDT documented in this encounter Progress Notes * Mercy Amanda MD - 07/05/2022 9:00 AM EDTSummary: 5th visit with MD [facility] [place] Patient Name: Vianney Cordero Date of : 1975 Age: 46 y.o. WANDY Aguilera Thank you for referring Vianney Cordero to the [facility]. I saw her for a follow-up visit today, 07/05/22. Please see changes to care as documented in the assessment and plan. CHIEF COMPLAINT: F/u for treatment of WHO Class 3 / EOSS Stage 2 Obesity defined by initial BMI and comorbidities GERD/Barretts. This is Visit #5 [facility] visit for this 46 y.o. patient. Initial visit: 10/06/2021, 217 lbs (22 lbs, 10%) 01/09/2022, 227 lbs + 10 lbs 02/10/2022, 228 lbs +1 lbs 04/21/2022, 227 lbs - 1 lbs 06/25/2022, 219 lbs (-8 lbs, + 2 total) [facility] Team: Priti Skinner RD and Erik Sorenson, Health Engineering Laboratory Technician HPI Taking phentermine 8 mg - tolerating well - helping me refuse to eat. Takes it early - 545 AM. Getshungry around lunchtime. Notes having Lap kelley 08/07/2022. 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 Will increase phentermine to 12 mg daily - 8 mg early and then 4 mg around 10 to cover lunchtime hunger. Pt interested in Mounjaro and will look into cost, etc. I do not think it barajas to start anything until after her lap kelley in Aug. [facility] PATHWAY - ADULT 10/06/2021 Obesity Medicine Activate Adult Biobank Decline Goals ??? breakfast choices Continue to eat for the first time when you feel hungry, though consider eating before the car so you can have other options. Consider as many food groups as possible. At breakfast, we want to start with protein as a priority: - Eggs - Cheese - Mexican yogurt / cottage cheese - meat - fish - nuts/seeds - protein shake or bar Start with the protein, can choose to add other foods (would rather have you choose regular bread/ indian muffin, etc. - whole wheat if possible- [...] in order of priority VITAL SIGNS: Vitals: 07/05/22 0904 BP: 141/69 Pulse: 63 SpO2: 99% Weight: 99.7 kg (219 lb 11.2 oz) Height: 160.2 cm (5' 3.07) Body mass index is 38.83 kg/m??. PHYSICAL EXAM: Gen: Alert and appropriate, [...] (H) 02/10/2022 Lab Results Component Value Date [id number] 02/10/2022 25-OH Vit D Total (ng/mL) [...] Co-morbidities addressed: GERD Referrals pending: Dietitian, Health Engineering Laboratory Technician AOM: Metformin, adding phentermine (3 months) Factors contributing to decision making: NO hx of pancreatitis, NO Fam or personl hx of medullary thyroid ca, NO hx of kidney stones, NO Hx of glaucoma/regular eye check, Insulin resistance Vianney was seen today for follow-up . Diagnoses and all orders for this visit: Class 2 severe obesity with serious comorbidity and body mass index (BMI) of 38.0 to 38.9 in adult,unspecified obesity type - Phentermine (Lomaira) 8 mg Tablet; Take 1 tablet by mouth every morning. Take 1/2 tablet by moutharound 10 AM. Insulin resistance No orders of the defined types were placed in this encounter. Return in about 7 weeks (around 08/23/2022) for In person or Zoom, With me. 3 min chart review 20 min [id number] Visit time 5 min Documentation time I [...] AM EST Office [place] [phone] Mercy Amanda MD [facility] [address] [facility] [place] [address] 04/01/2025 2:00 PM EDT Office [place] [phone] Erum Szymanski MD [facility] [place] [address] documented as of this encounter Goals Goal [...] a priority: - Eggs - Cheese - Mexican yogurt / cottage cheese - meat - fish - nuts/seeds - protein shake or bar Start with the protein, can choose to add other foods (would rather have you choose regular bread/ indian muffin, etc. - whole wheat if possible- [...] of this encounter Visit Diagnoses Diagnosis Class 2 severe obesity with serious comorbidity and body mass index (BMI) of 38.0 to 38.9 in adult, unspecified obesity type Insulin resistance Dysmetabolic Syndrome X documented in this encounter Care Teams Secondary Social Studies Teacher Relationship Specialty Start Date End Date Sonido Cordoba PA [address] [place] [address] PCP - General Family Medicine 07/06/20 documented as of this encounter
--- OUTSIDE RECORDS SUMMARY | 2024-10-16 17:39 | XMS_ITS | Encounter Summary ---
[place] [address] Care Team Providers Care Cdl Team Truck Driver Name Role Phone Sonido Cordoba Primary Care Provider [phone]- [phone] Encounter Details Date Type Department Care Team (Latest Contact Info) Description 06/05/2022 8:30 PM EDT - 06/05/2022 11:59 PM EDT Hospital [place] [phone] Discharge Disposition: Home Social History Tobacco Use [...] by mouth 3 times daily as needed. metFORMIN XR (Glucophage XR) 500 mg Tablet Sustained Release 24 hrIndications:Insulin resistance Take 4 tablets by mouth daily. With dinner 360 tablet 05/30/2022 09/08/2022 Phentermine (Lomaira) 8 mg TabletIndications:Clas s 3 severe obesity with serious comorbidity and body mass index (BMI) of 40.0 to 44.9 in adult, unspecified obesity type Take 1 tablet by mouth every morning. 30 tablet 05/26/2022 07/05/2022 ergocalciferoL, vitamin D2, (vitamin D2) 50,000 unit CapsuleIndications:Vit easley D deficiency Take 1 capsule by mouth once a week for 56 days. After completion of prescription, begin taking lower daily doses of Vit D per provider's instruction. (Usually 1000-2000IU daily) 8 capsule 04/22/2022 06/17/2022 pantoprazole EC (Protonix) 40 mg Tablet, Delayed Release (E.C.)Indications:Garcia ett's esophagus without dysplasia,Gastroesopha geal reflux disease with esophagitis, unspecified whether hemorrhage Take 1 tablet by mouth 2 times daily (before meals). 60 tablet 11 12/21/2021 01/17/2023 acetaminophen (Tylenol) 500 mg Tablet Take 1,000 mg by mouth every 6 hours as needed for Pain. 05/30/2024 traZODone (DESYREL) 50 mg Tablet nightly as needed. 0 02/08/2016 4 documented as of this encounter Plan of Treatment Upcoming Encounters Date Type Department Care Team (Late st Contact Info) Description 12/31/2024 10:00 AM EST Office [place] [phone] Mercy Amanda MD [facility] [address] [facility] [place] [address] 04/01/2025 2:00 PM EDT Office [place] [phone] Erum Szymanski MD [facility] DR [place] [address] documented as of this encounter [...] (would rather have you choose regular bread/ monegasque muffin, etc. - whole wheat if possible- [...] Associated Diagnosis Comments SURGICAL PATHOLOGY REPORT Routine 06/05/2022 2:00 PM EDT documented in this encounter Results * Surgical Pathology Report (06/05/2022 2:00 PM EDT) Final Diagnosis [id number] ? Location: [facility] The signing pathologist has (i) examined the relevant preparation(s) for the specimen(s) and (ii) rendered or confirmed the diagnosis(es). . ? Addendum ADDENDUM DISCUSSION Part B: Immunostain for H. pylori is negative. Electronically signed by: ?Samira Cardenas MD Verified: ??06/09/2022 13:36 ??Pathologist Performed at: ??-[facility] Dept. of Pathology, [place], [place] ?Surgical Pathology DIAGNOSIS A - Duodenum, biopsy: Duodenal mucosa within normal limits, including preserved villous architecture. B - Antrum, biopsy: Gastric antral mucosa with pancreatic metaplasia. C - Body of stomach, biopsy: Gastric fundic mucosa within normal limits. 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 No dysplasia is seen. Electronically signed by: ?Samira Cardenas MD Verified: ??06/08/2022 17:07 ??Pathologist Performed at: ??-[facility] Dept. of Pathology, [place], [place] ADDITIONAL STUDIES Immunohistochemistry Studies: Formalin-fixed, paraffin-embedded tissue sections are studied using the polymer technique with appropriate positive and negative controls. ?These IHC studies provide the pathologist with adjunctive diagnostic information. Antibody specificity has been verified by testing antibodies on a series of in-house tissues with known immunohistochemical performance characteristics. The clinical interpretation of any antibody positive staining or its absence is evaluated within the context of clinical presentation, morphology, histopathological criteria and other diagnostic tests. Block ? Antibody ?Result (Positive/Negative) B1 ? h. pylori ?see addendum SPECIMEN(S) SUBMITTED A - Duodenum Bx's () B - Antrum Bx'x C - Body of stomach Bx's D - Distal esophagus Bx's Referring Identifier: ?(not provided) CLINICAL INFORMATION Abdominal pain SPECIMEN PROCESSING A - Labeled/Fixative: Duodenum BX's, formalin. Quantity/Size: Four, averaging 0.2 cm in greatest dimension. . SPECIMEN PROCESSING Tissue Description: Soft, gray-brown tissues. Sections/Processing: Submitted en toto ??in 1 cassette labeled A1. B - Labeled/Fixative: Antrum BX's, formalin. Quantity/Size: Two, 0.4 and 0.7 cm in greatest dimension. Tissue Description: Soft, gray-white tissues. Sections/Processing: Submitted en toto ??in 1 cassette labeled B1. C - Labeled/Fixative: Body of stomach BX's, formalin. Quantity/Size: Single, 0.4 x 0.2 x 0.2 cm. Tissue Description: Soft, gray-brown tissue. Sections/Processing: Submitted en toto ??in 1 cassette labeled C1. D - Labeled/Fixative: Distal esophagus BX's, formalin. Quantity/Size: Multiple, ranging from 0.2-0.4 cm in greatest dimension. Tissue Description: Soft, gray-white tissues. Sections/Processing: Submitted en toto ??in 2 cassettes labeled D1-D2. ??nrl 06/09/2022 1:36 PM EDT [facility] GI Biopsy 06/05/2022 2:00 PM EDT 06/05/2022 2:00 PM EDT GI Biopsy 06/05/2022 2:00 PM EDT 06/05/2022 2:00 PM EDT GI Biopsy 06/05/2022 2:00 PM EDT 06/05/2022 2:00 PM EDT GI Biopsy 06/05/2022 2:00 PM EDT 06/05/2022 2:00 PM EDT Guanako Barclay DO PATHOLOGY/CYTOL OGY ORDERABLES [facility] [place] [address] documented in this encounter Visit Diagnoses Not on filedocumented in this encounter Care Teams Cdl Team Truck Driver Relationship Specialty Start Date End Date Sonido Cordoba PA [address] [place] [address] PCP - General Family Medicine 07/06/20 documented as of this encounter
--- OUTSIDE RECORDS SUMMARY | 2024-10-16 17:39 | XMS_ITS | Encounter Summary ---
[place] [address] Care Team Providers Care Film Examiner Name Role Phone Sonido Cordoba Primary Care Provider +1- [phone] Reason for Visit * Reason Onset Date Comments Appointment 10/19/2021 Encounter Details Date Type Department Care Team (Late st Contact Info) Description 10/19/2021 Telephone Weight and Wellness at [facility] [address] [place] [phone] Rosemarie Shoemaker Appointment Social History Tobacco Use Types Packs/Day [...] encounter Miscellaneous Notes * Telephone Encounter - Rosemarie Shoemaker - 10/19/2021 1:25 PM EST Return in about 4 weeks (around 11/10/2021) for Health Speech Therapy Teacher, 1 mo, Zoom. documented in this encounter Plan of Treatment Upcoming Encounters Date Type Department Care Team (Late st Contact Info) Description 12/31/2024 10:00 AM EST [place] [phone] Mercy Amanda MD [facility] [address] [facility] [address] 04/01/2025 2:00 PM EDT Office [place] [phone] Erum Szymanski MD [facility] [place] [address] documented as of this encounter Goals Goal Patient Goal Type Associated Problems Recent Progress Patient-Stated? Author continue to track in an mika Lifestyle Asah Chung MD Note: Try goal of 1500 [...] (would rather have you choose regular bread/ malaysian muffin, etc. - whole wheat if possible- [...] on filedocumented in this encounter Care Teams Film Examiner Relationship Specialty Start Date End Date Sonido Cordoba PA [address] [place] [address] PCP - General Family Medicine 07/06/20 documented as of this encounter
--- OUTSIDE RECORDS SUMMARY | 2024-10-16 17:39 | XMS_ITS | Encounter Summary ---
Author Organization [facility] [place] [address] Care Team Providers Care Mine Safety Manager Name Role Phone Sonido Cordoba Primary Care Provider [phone]- [phone] Reason for Visit * Reason Comments Follow-up Weight managment Encounter Details Date Type Department Care Team (Late st Contact Info) Description 01/09/2022 2:30 PM EST Office Visit Weight and Wellness at [address] [phone] Mercy Amanda MD [facility] [place] [address] Class 3 severe obesity with serious comorbidity [...] Sign Reading Time Taken Comments Blood Pressure 131/66 01/09/2022 2:16 PM EST Pulse 73 01/09/2022 2:16 PM EST Temperature - - Respiratory Rate - - Oxygen Saturation 99% 01/09/2022 2:16 PM EST Inhaled Oxygen Concentration - - Weight 103 kg (227 lb) 01/09/2022 2:16 PM EST Height 160.2 cm (5' 3.07) 01/09/2022 2:16 PM ES T Body Mass Index 40.12 01/09/2022 2:16 PM EST documented in this encounter Patient Instructions * Patient Instructions* Mercy Amanda MD - 01/09/2022 4:59 PM EST Stiven Faith, So nice to meet you today. I have ordered labs to be done FASTING at your lab of choice - our team will email you the orders. Once I review labs, I will reach out to you about possible medications options we can use to jump start your weight loss. In the meantime, track your food intake between now and your visit with Priti on 01/19. Get your walking program going!! Reach out to our computer experts about getting Zoom to work on your phone so you can access all ofthe programs we have to offer. Have a wonderful evening, Mercy documented in this encounter Progress Notes * Mercy Amanda MD - 01/09/2022 2:30 PM ESTSummary: 2nd visit with Images from the original note were not included. [facility] Patient Name: Vianney Cordero Date of : 1975 Age: 46 y.o. WANDY Aguilera Thank you for referring Vianney Cordero to the [facility] Center. I saw her for a follow-up visit today, 01/09/22. Please see changes to care as documented in the assessment and plan. CHIEF COMPLAINT: F/u for treatment of WHO Class 3/ EOSS Stage 2 Obesity defined by initial BMI and comorbidities: GERD with Rodgers's esophagus This is Visit #2 [facility] visit for this 46 y.o. patient. Initial visit: 10/06/2021 Initial weight: 217 lbs Initial BMI:38.49 Goal weight: Unclear 10% loss: 21.7 lbs Today's weight: 227 lbs Change since prior: + 10 lbs [facility] Team: Priti Skinner RD, Erik Sorenson [facility] TODAY PATIENT REPORTS : I am gaining wt and I do not know why. I cannot eat less that I because I am eating nothing. Also states she is walking more. Is obviously frustrated because she got down to193 lbs back in 2014, regained, back down to 203 lbs in 04/2021 and now continues to gain. Lost weight with 2-3 hour walking program; kept increasing mileage. Took soda out of your diet, and sweets. Stopped walking program bc of foot surgery. States her GI doctor says her GERD symptoms would improve and Rodgers's if she lost weight. ([id number]?). Also has fatty liver. Ready to try medicine now, I didn't think I was that big. Diet recall: Banana pop tart for breakfast Salad for lunch Chicken/ potatoes/ pork chop/ hamburger dinner AOM: Currently taking: none Obesogenic meds: Flexeril? Trazadone? COMORBIDITIES ADDRESSED GERD REVIEW OF LABS/DIAGNOSIS SINCE LAST VISIT [x] I reviewed past / interim records including notes and labs. ONGOING INTERVENTIONS (Topics discussed today in BOLD): For specific behavioral interventions, see goals Nutrition: specific recommendations per RD - needs more work on making better choices, example for patient: protein shake or Hardboiled eggs instead of pop tarts Behavior: NO CONCERNS Activity: See goals :specifically discussed her plan for walking program. Feels very confident she will start - drives by [place] where she walks daily after work to see if snow has melted. 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 Barriers: []needs cardiac eval []injury/pain preventing activity right now Stress Management:no concerns Sleep: no concerns, Other: Will reassess at next visit Self-monitoring: Food log - can use pen and paper just to gather information, not track calories. Pathway: []Individual []HLP []Surgery []Culinary []ACT []Monthly Lifestyle Classes Discusssion : Pillars, Discussion 01/09/22: Pathways, SMART goals [facility] PATHWAY - ADULT 10/06/2021 Obesity Medicine Activate Adult Biobank Decline Goals ??? breakfast choices Continue to eat for the first time when you feel hungry, though consider eating before the car so you can have other options. Consider as many food groups as possible. At breakfast, we want to start with protein as a priority: - Eggs - Cheese - Montenegrin yogurt / cottage cheese - meat - fish - nuts/seeds - protein shake or bar Start with the protein, can choose to add other foods (would rather have you choose regular bread/ canadian muffin, etc. - whole wheat if possible- [...] in order of priority VITAL SIGNS: Vitals: 01/09/22 1416 BP: 131/66 BP Location ([facility]): Right arm Patient Position: Sitting BP Cuff Sizes: Large Adult (32-43 cm) Pulse: 73 SpO2: 99% Weight: 103 kg (227 lb) Height: 160.2 cm (5' 3.07) Body mass index is 40.12 kg/m??. PHYSICAL EXAM: Gen: Alert and appropriate, NAD. LABS: Lab Results Component Value Date WBC 8.4 04/17/2018 RBC 4.32 04/17/2018 HGB 13.1 04/17/2018 HCT 37.9 04/17/2018 MCV 87.7 04/17/2018 MCH 30.3 04/17/2018 MCHC 34.6 04/17/2018 PLATELET 282 04/17/2018 RDWCV 12.2 04/17/2018 Lab Results Component Value Date NA 143 (External Lab) 01/21/2021 K 4.3 (External Lab) 01/21/2021 CL 107 (External Lab) 01/21/2021 CO2 25 (External Lab) 01/21/2021 BUN 15 (External Lab) 01/21/2021 CREATININE 0.9 (External Lab) 01/21/2021 GLUCOSE 94 (External Lab) 01/21/2021 GLUCFASTING 91 10/21/2021 CALCIUM 9.5 (External Lab) 01/21/2021 ESTGFR >60 (External Lab) 01/21/2021 Lab Results Component Value Date ALT 19 (External Lab) 01/21/2021 AST 14 (ExtL) 01/21/2021 ALKPHOS 92 (External Lab) 01/21/2021 BILITOT 0.4 (External Lab) 01/21/2021 BILIDIR <0.1 12/28/2014 ALBUMIN 4.1 (External Lab) 01/21/2021 PROT 7.6 (External Lab) 01/21/2021 Lab Results Component Value Date CHLPL 195 10/21/2021 HDL 48 10/21/2021 TRIG 64 10/21/2021 LDLCHOL 135 (H) 10/21/2021 Lab Results Component Value Date HA1C 5.4 10/21/2021 Lab Results Component Value Date TSH 2.29 (External Lab) 01/21/2021 Lab Results Component Value Date LABINSU 26.4 10/21/2021 Lab Results Component Value Date GLUCFASTING 91 10/21/2021 No results found for: FERRITIN No results found for: [id number] No results found for: 25OHVITD ASSESSMENT AND PLAN Vianney Cordero was seen in follow up today for ongoing obesity, not yet at treatment goal -UNCONTROLLED currently Goals and treatment options were discussed. Continue medical management and lifestyle changes. FACTORS CONTRIBUTING TO OBESITY Risk Stratification: +fatty liver Obesogenic meds: NONE Plan: No change at this time Co-morbidities addressed: Fatty liver and GERD Referrals pending: Dietitian, Health Risk Engineer AOM: Factors contributing to decision making: Hx of kidney stones Vianney was seen today for follow-up . Diagnoses and all orders for this visit: Class 3 severe obesity with serious comorbidity and body mass index (BMI) of 40.0 to 44.9 in adult,unspecified obesity type Orders Placed This Encounter Procedures ??? CMP w/fasting Glucose ??? TSH ??? Vitamin D, 25-Hydroxy ??? Vitamin B12 ??? Ferritin Return in about 4 weeks (around 02/06/2022) for In person or Zoom, With me. 5 min chart review 30 min [id number] Visit time 5 min Documentation time I [...] AM EST [place] [phone] Mercy Amanda MD [facility] [place] [address] 04/01/2025 2:00 PM EDT Office [place] [address] Erum Szymanski MD [facility] [place] [address] documented as of this encounter Goals Goal [...] a priority: - Eggs - Cheese - Montenegrin yogurt / cottage cheese - meat - fish - nuts/seeds - protein shake or bar Start with the protein, can choose to add other foods (would rather have you choose regular bread/ canadian muffin, etc. - whole wheat if possible- [...] documented as of this encounter Results * (ABNORMAL) Ferritin (02/10/2022 11:26 AM EDT) [facility] Ferritin 161(H) 15 - 150 ng/mL [facility] Comment: Pediatric reference ranges not verified at [facility], interpret with caution. Reference ranges for females greater than 50 years of age approach values for men, i.e., 30-400 ng/mL. Blood 02/10/2022 11:2 6 AM EDT 02/10/2022 6:09 PM EDT Narrative Resulting Agency Comment Spec In Lab Mercy Amanda MD CHEMISTRY GLORIA LAURA [facility] [place] [address] * Vitamin B12 (02/10/2022 11:26 AM EDT) Vitamin B12 542 232 - 1,245 pg/mL [facility] Blood 02/10/2022 11:2 6 AM EDT 02/10/2022 6:09 PM EDT Narrative Resulting Agency Comment Spec In Lab Mercy Amanda MD CHEMISTRY ORDE [employer] Performing Organization Address City/[facility]/ZIP Co de Phone Number [facility] [place] [address] * (ABNORMAL) Vitamin D, 25-Hydroxy (02/10/2022 11:26 AM EDT) Vitamin D Total 25 OH 20(L) 21 - 100 ng/mL [facility] Vit D Interp Deficient [facility] Blood 02/10/2022 11:2 6 AM EDT 02/10/2022 6:09 PM EDT Narrative Resulting Agency Comment Spec In Lab Mercy Amanda MD CHEMISTRY ORDE [employer] Performing Organization Address City/[facility]/ZIP Co de Phone Number [facility] [place] [address] * TSH (02/10/2022 11:26 AM EDT) Thyroid Stimulating Hormone 2.34 0.27 - 4.20 mcIU/mL [facility] Comment: Reference Interval (mcIU/mL): Females: ??First Trimester: 0.23-3.88 ??Second Trimester: 0.22-3.90 ??Third Trimester: 0.44-4.66 Blood 02/10/2022 11:2 6 AM EDT 02/10/2022 2:32 PM EDT Narrative Resulting Agency Comment Spec In Lab Mercy Amanda MD CHEMISTRY ORDE [employer] [facility] [place] [place] [address] * CMP w/fasting Glucose (02/10/2022 11:26 AM EDT) [facility] Signature Glucose Fasting 94 65 - 99 mg/dL [facility] Comment: ?Fasting* Glucose Interpretive Criteria [...] of Diabetes Mellitus, Position Statement from the [place] [employer]. ??Diabetes Care, Volume 33, Supplement 1, Nov 2009 Blood Urea Nitrogen 12 8 - 18 mg/dL [facility] Creatinine 0.75 0.70 - 1.20 mg/dL [facility] Sodium 138 135 - 145 mmol/L [facility] Potassium 4.0 3.5 - 5.0 mmol/L [facility] Comment: Please note: ??Patients with WBC >100,000 may have falsely elevated Potassium levels. ??For accurate Potassium quantification in these patients send serum separator tube (gold top) for subsequent determinations. ??Contact the Clinical Chemistry Laboratory if there are any questions. Chloride 105 98 - 107 mmol/L [facility] Carbon Dioxide 24 22 - 31 mmol/L [facility] Anion Gap 9 5 - 15 mmol/L [facility] Calcium 9.2 8.5 - 10.5 mg/dL [facility] Protein, Total 7.3 6.1 - 8.0 g/dL [facility] Albumin 4.3 3.2 - 5.2 g/dL [facility] Aspartate Aminotransferase 15 0 - 30 unit/L [facility] Alanine Aminotransferase 9 0 - 30 unit/L [facility] Alkaline Phosphatase 82 35 - 105 unit/L [facility] Bilirubin, Total 0.4 0.2 - 1.3 mg/dL [facility] Est Glomerular Filtration Rate 96 >=60 mL/min/1. 73 m?? [facility] Comment: This patient? s estimated [...] Lab Mercy Amanda MD CHEMISTRY GLORIA LAURA [facility] [place] [phone] documented in this encounter Visit Diagnoses Diagnosis Class 3 severe obesity with serious comorbidity and body mass index (BMI) of 40.0 to 44.9 in adult, unspecified obesity type documented in this encounter Care Teams Mine Safety Manager Relationship Specialty Start Date End Date Sonido Cordoba PA [address] [place] [address] PCP - General Family Medicine 07/06/20 documented as of this encounter
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
--- OUTSIDE RECORDS SUMMARY | 2024-10-16 17:39 | XMS_ITS | Encounter Summary ---
[place] [address] Care Team Providers Care Automation Mechanic Name Role Phone Sonido Cordoba Primary Care Provider +1- [phone] Encounter Details Date Type Department Care Team (Late st Contact Info) Description 09/30/2021 External Results Weight and Wellness at [address] [phone] Kezia Preston, RN Social History Tobacco Use [...] AM EST Office [place] [address] Mercy Amanda MD [facility] [address] [address] 04/01/2025 2:00 PM EDT Office [place] [address] Erum Szymanski MD [facility] [place] [address] documented as of this encounter Procedures Procedure Name Priority Date/Time Associated Diagnosis Comments [facility] EXTERNAL RESULT PANEL Routine 01/21/2021 documented in this encounter Results * (ABNORMAL) [facility] External Results (01/21/2021) Cholesterol, Total 217(ExtH) Triglyceride 113(Exter nal Lab) HDL Cholesterol 44(Consumer Advocate al Lab) LDL Cholesterol 151(ExtH) Blood Urea Nitrogen 15(Consumer Advocate al Lab) Creatinine 0.9(Exter nal Lab) Sodium 143(Exter nal Lab) Potassium 4.3(Exter nal Lab) Chloride 107(Exter nal Lab) Carbon Dioxide 25(Consumer Advocate al Lab) Anion Gap 11(Consumer Advocate al Lab) Calcium 9.5(Exter nal Lab) Protein, Total 7.6(Exter nal Lab) Albumin 4.1(Exter nal Lab) Aspartate Aminotransferase 14(ExtL) Alanine Aminotransferase 19(Consumer Advocate al Lab) Alkaline Phosphatase 92(Consumer Advocate al Lab) Bilirubin, Total 0.4(Exter nal Lab) Est Glomerular Filtration Rate >60(Exter nal Lab) Thyroid Stimulating Hormone 2.29(Exte rnal Lab) Glucose 94(Consumer Advocate al Lab) 01/21/2021 Historical Provider POINT OF CARE SHAGGY T ORDERABLES documented in this encounter Visit Diagnoses Not on filedocumented in this encounter Care Teams Automation Mechanic Relationship Specialty Start Date End Date Sonido Cordoba PA [address] [place] [address] PCP - General Family Medicine 07/06/20 documented as of this encounter
--- OUTSIDE RECORDS SUMMARY | 2024-10-16 17:39 | XMS_ITS | Encounter Summary ---
[place] [address] Care Team Providers Care 4 H Youth Development Specialist Name Role Phone Sonido Cordoba Primary Care Provider +1- [phone] Encounter Details Date Type Department Care Team (Late st Contact Info) Description 02/16/2022 Telephone Weight and Wellness at [facility] [address] [place] [address] Kezia Preston, RN Social History [...] Notes * Telephone Encounter - Kezia Preston - 02/16/2022 1:24 PM EDT Medication Prior Authorization for Weight and Wellness [facility] [address] [place] [address] DENIED: [id number] Case/Reference #: [id number] Additional Information from Insurance: weight loss agents [place] covered by [place] medicaid. documented in this encounter Plan of Treatment Upcoming Encounters Date Type Department Care Team (Late st Contact Info) Description 12/31/2024 10:00 AM EST Office [place] [phone] Mercy Amanda MD [facility] [address] [address] 04/01/2025 2:00 PM EDT Office [place] [phone] Erum Szymanski MD [facility] [place] [address] documented as of this encounter Goals Goal [...] a priority: - Eggs - Cheese - Mohawk yogurt / cottage cheese - meat - [...] on filedocumented in this encounter Care Teams 4 H Youth Development Specialist Relationship Specialty Start Date End Date Sonido Cordoba PA [address] [address] PCP - General Family Medicine 07/06/20 documented as of this encounter
--- OUTSIDE RECORDS SUMMARY | 2024-10-16 17:39 | XMS_ITS | Encounter Summary ---
Author Organization [facility] [place] [address] Care Team Providers Care Montessori Program Director Name Role Phone Sonido Cordoba Primary Care Provider +1- [phone] Encounter Details Date Type Department Care Team (Late st Contact Info) Description 02/16/2022 Orders Only Weight and Wellness at [facility] [address] [place] [address] Mercy Amanda MD [facility] [address] [place], [place] [id number] Insulin resistance; Class 3 severe obesity with serious comorbidity [...] AM EST Office [place] [address] Mercy Amanda MD [facility] [address] [address] 04/01/2025 2:00 PM EDT Office Visit [place] [phone] Erum Szymanski MD [facility] [place] [address] documented as of this encounter Goals Goal [...] as of this encounter Visit Diagnoses Diagnosis Insulin resistance Dysmetabolic Syndrome X Class 3 severe obesity with serious comorbidity and body mass index (BMI) of 40.0 to 44.9 in adult, unspecified obesity type documented in this encounter Care Teams Montessori Program Director Relationship Specialty Start Date End Date Sonido Cordoba PA [address] [place] [address] PCP - General Family Medicine 07/06/20 documented as of this encounter
--- OUTSIDE RECORDS SUMMARY | 2024-10-16 17:39 | XMS_ITS | Encounter Summary ---
Author Organization [facility] [place] [address] Care Team Providers Care Rolling Machine Operator Name Role Phone Sonido Cordoba Primary Care Provider [phone]- [phone] Encounter Details Date Type Department Care Team (Late st Contact Info) Description 06/17/2021 9:30 AM EDT Office [place] [phone] Erum Szymanski MD [facility] [place] [address] Belching; Heartburn; Dyspepsia Social History Tobacco Use Types Packs/Day Years [...] Sign Reading Time Taken Comments Blood Pressure 136/64 06/17/2021 9:41 AM EDT Pulse 59 06/17/2021 9:41 AM EDT Temperature - - Respiratory Rate - - Oxygen Saturation - - Inhaled Oxygen Concentration - - Weight 92.7 kg (204 lb 4.8 oz) 06/17/2021 9:41 A M EDT Height - - Body Mass Index 35.07 04/13/2021 2:08 PM EDT documented in this encounter Patient Instructions * Patient Instructions* Erum Szymanski MD - 06/17/2021 9:30 AM EDT Plan: ?? Diaphragmatic breathing - start doing this several times per day o [email or web address]://www.uofealth.org/conditions-treatments/kdxqbbqmanwnj-qxeopyxsw-fy-rick ents ?? If no improvement try FDgard ?? Follow-up with weight and wellness center ?? Eat small frequent meals (avoid fasting for prolonged periods). Avoid fried foods and red sauces. Stay upright for 3 hours after eating ?? Continue pantoprazole 40mg twice a day take 30 minutes before food ?? Colonoscopy 08/2022 for surveillance Follow-up in: 3 months documented in this encounter Progress Notes * Erum Szymanski MD - 06/17/2021 9:30 AM EDT [facility] Section of Gastroenterology and Hepatology Follow-Up Visit PCP: WANDY Aguilera Referring provider: WANDY Aguilera [address] [place] [address] HPI This is a 45 y.o. female who presents for follow-up of GERD with bothersome belching and hiccups. GI PROBLEMS: 1. GERD with long segment [...] F0-1 6. Adenomatous colon polyp (1 in 2017) ?? Mom with CRC > 60 yo ?? Last colonoscopy 2018 7. Abd wall pain of RUQ (+ Carnett's): Pinching pain in the RUQ that comes on eating. It is localized over an area 2 to 3 fingers in width. It is constant and steady. Can occur immediately after eating or within 15 minutes. Every meal. Lasts hours or the entire day. If she is resting at home, thepain will resolve within hours, but at work it can last the entire shift (10 to 13 hours). She thinks perhaps this is due to her activity. Leaning over hurts, touching it hurts. 8. Dyspepsia (?) - post-prandial RUQ pain - suspect functional ?? Normal EGD, HIDA scan 9. Gas/bloat Interval follow-up EGD long segment Rodgers's 28 to 35 cm Rodgers's no dysplasia TYESHA intact DeMeester 1.5 on MOYA test on BID PPI No association between symptoms of heartburn and acid reflux Sx mostly occur in the afternoon, not related to eating, while working. Work is at [email or web address]. 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 This is the time she is most active (apart from her morning walk when she doesn't have symptoms). Hiccup burps are the most uncomfortable. Associated with epigastric bloating Night time is okay. Heartburn just before laying down at night. Breakfast is usually cheerios and toast. Too busy to eat lunch. Last night had some bad stomach pain - epigastric, non-radiating, 1 hour, self- limited, stabbing. Was getting ready to cook. Nauseated. BMs normal. Had lost weight now up to 201 lbs. Did not hear form weight and wellness. LAST VISIT After last visit we increased pantoprazole to 40mg BID - continues this Sx improved, but still with heartburn and hoarseness twice a week Recommended adding baclofen. Tried baclofen for 1 week but it made her very constipated so she stopped it. It did not help the belching. Heartburn has worsened 2-3x/wk. Bothersome - 8 out of 10. Not linked to eating or at night. Occurs at random. Lasts 15 to 20 min. Eats a piece of celery and it helps. Daily belching ---> hiccup and it is painful. Last month was down to 193 lbs but regained - doesn't notice a change in sx with weight. Eating small amounts (2 meals) - B = toast or eggs/cheese; D = chicken or hamburger, corn, green beans & carrots Stopped soda. Water only. Sometimes peach and green tea. No carbonation. Trimino water (gluten/lactose free) and Celsius (energy drink). Has not noticed hoarseness recently Actually vomited recently, has not been able to do this in years Took trazodone - made her too sleepy and couldn't hear her dog or child in house Review of Systems Negative except as above [...] again found. 11. HIDA scan 03/2020 normal Patient Active Problem List Diagnosis Code ??? Elbow pain, right M25.521 ??? Dyspepsia R10.13 ??? 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 Hiatal hernia K44.9 ??? Obesity E66.9 ??? Pain in left shoulder M25.512 ??? Right knee pain M25.561 ??? Hx of tonsillectomy Z90.89 ??? History of dilation and curettage Z98.890 ??? History of Tyesha fundoplication 06/2015 Z98.890 ??? Left ankle pain M25.572 ??? Peroneal tendon tear, right, subsequent encounter S86.835Y Current Outpatient Medications: ??? cyclobenzaprine (Flexeril) 10 mg Tablet, Take 10 mg by mouth 3 times daily as needed for Musclespasms., Disp: , Rfl: ??? pantoprazole EC (Protonix) 40 mg Tablet, Delayed Release (E.C.), Take 1 tablet by mouth 2 timesdaily (before meals)., Disp: 60 tablet, Rfl: 3 ??? acetaminophen (Tylenol) 500 mg Tablet, Take 1,000 mg by mouth every 6 hours as needed for Pain., Disp: , Rfl: ??? meclizine (ANTIVERT) 12.5 mg Tablet, Take 12.5 mg by mouth 3 times daily as needed., Disp: , Rfl: ??? traZODone (DESYREL) 50 mg Tablet, , Disp: , Rfl: 0 Allergies Allergen Reactions [...] 3.66) performed by Erum Szymanski MD at [facility] ENDOSCOPY ??? PRO COLONOSCOPY, BIOPSY N/A 09/04/2019 COLONOSCOPY FLEXIBLE, WITH BX (WRVU 3.66) performed by Steve Ji MD at [facility] ENDOSCOPY ??? PRO COLONOSCOPY, DIAGNOSTIC N/A 09/04/2019 COLONOSCOPY, DIAGNOSTIC performed by Steve Ji MD at [facility] ENDOSCOPY ??? PRO COLONOSCOPY, REMV LESN, SNARE N/A 08/21/2018 COLONOSCOPY, POLYPECTOMY, REMOVAL LESION BY SNARE (WRVU 4.67) performed by Erum Szymanski MD at [facility] ENDOSCOPY ? ? PRO CYSTO W URETEROSCOPY &/OR PYELOSCOPY, DX Right 06/01/2015 CYSTOURETEROSCOPY, DIAGNOSTIC performed by Darius Nuñez Jr., MD at [facility] MAIN OR ??? PRO CYSTOSCOPY, INSERT URETERAL STENT Right 06/01/2015 CYSTO, STENT PLACEMENT performed by Darius Nuñez Jr., MD at [facility] MAIN OR ??? PRO LAP, ESOPHAGOGAST FUNDOPLASTY N/A 04/05/2015 LAPAROSCOPIC TYESHA FUNDOPLASTY performed by Valentín Moura MD at [facility] MAIN OR ??? PRO PERCUT DILATN RENAL TRACT Right 06/01/2015 PERCUTANEOUS INTRO GUIDE WIRE TO ACCESS RENAL PELVIS,AND OR URETER, W\DILATION performed by Darius Nuñez Jr., MD at [facility] MAIN OR ??? PRO PERCUT REMV KID STONE, UP TO 2 CM Right 06/01/2015 NEPHROLITHOTOMY, ([facility]) PERCUTANEOUS performed by Darius Nuñez Jr., MD at [facility] MAIN OR ??? PRO REPAIR PERONEAL TENDONS Right 08/12/2020 PERONEAL TENDON REPAIR (WRVU 7.35) performed by Mani Jefferson MD at [facility] OSC ??? PRO UPPER GI ENDOSCOPY, BIOPSY N/A 01/27/2015 EGD WITH BIOPSY performed by Brandt Barlow MD at [facility] ENDOSCOPY ??? PRO UPPER GI ENDOSCOPY, BIOPSY N/A 02/28/2016 EGD WITH BIOPSY performed by Brandt Barlow MD at [facility] ENDOSCOPY ??? PRO UPPER GI ENDOSCOPY, BIOPSY N/A 09/04/2016 EGD WITH BIOPSY performed by Brandt Barlow MD at [facility] ENDOSCOPY ??? PRO UPPER GI ENDOSCOPY, BIOPSY N/A 09/24/2017 EGD WITH BIOPSY (WRVU 2.49) performed by Brandt Barlow MD at [facility] ENDOSCOPY ??? PRO UPPER GI ENDOSCOPY, BIOPSY N/A 08/21/2018 EGD WITH BIOPSY (WRVU 2.49) performed by Erum Szymanski MD at [facility] ENDOSCOPY ??? PRO UPPER GI ENDOSCOPY, BIOPSY N/A 09/04/2019 UPPER GASTROINTESTINAL ENDOSCOPY,WITH BIOPSY SINGLE OR MULTIPLE (WRVU 2.49) performed by Steve Ji MD at [facility] ENDOSCOPY ??? PRO UPPER GI ENDOSCOPY, BIOPSY N/A 05/24/2021 EGD WITH BIOPSY (WRVU 2.49) performed by Kathy Carnes MD at [facility] ENDOSCOPY ??? PRO UPPER GI ENDOSCOPY, DIAGNOSTIC N/A 09/04/2019 EGD, UPPER GI ENDOSCOPY performed by Steve Ji MD at [facility] ENDOSCOPY ??? TONSILLECTOMY Social History Socioeconomic History ??? Marital status: Spouse name: Not on file ??? Number of children: Not on file ??? Years of education: Not on file ??? Highest education level: Not on file Occupational History ??? Not on file Tobacco Use ??? Smoking status: Former Smoker Packs/day: 0.50 Years: 6.00 Pack years: 3.00 Types: Cigarettes Quit date: 01/25/1997 Years since quittin.4 ??? Smokeless tobacco: Never Used Vaping Use ??? Vaping Use: Never used Substance and Sexual Activity ??? Alcohol use: Not Currently Comment: 1X/quarter ??? Drug use: No ??? Sexual activity: Yes Partners: Male control/protection: Surgical Other Topics Concern ??? Not on file Social History Narrative ??? Not on file Social Determinants of Health Financial Resource Strain: ??? Difficulty of Paying Living Expenses: Not on file Food Insecurity: ??? Worried About Running Out of Food in the Last Year: Not on file ??? Ran Out of Food in the Last Year: Not on file Transportation Needs: ??? Lack of Transportation (Medical): Not on file ??? Lack of Transportation (Non-Medical): Not on file Physical Activity: ??? Days of Exercise per Week: Not on file ??? Minutes of Exercise per Session: Not on file Family History Problem Relation Age of Onset ??? Diabetes Mother ??? Diabetes Maternal Grandmother ??? Diabetes Maternal Grandfather Physical Exam BP 136/64 Pulse 59 Wt 92.7 kg (204 lb 4.8 oz) BMI 35.07 kg/m?? Constitutional: Well appearing, NAD, AAO x 3 PERTINENT LABS AND IMAGING: As noted above Impression: 45 y.o. female following up for GERD. Prior TYESHA in 2015 and long segment Rodgers's. Heartburn despite BID PPI. MOYA pH study negative. Consistent with non-acid reflux vs reflux hypersensitivity vs functional heartburn. Most bothersome is hiccup burps which happen while she is active and are associated with abdominal bloating. I think this may be triggered by increased pressure on the diaphragm and associated dysfunction. Plan: ?? Diaphragmatic breathing - start doing this several times per day o [email or web address]://www.uofealth.org/conditions-treatments/dtfwgvyvyucsf-dihfgbedl-tu-rick ents ?? If no improvement try FDgard ?? Follow-up with weight and wellness center ?? Eat small frequent meals (avoid fasting for prolonged periods). Avoid fried foods and red sauces. Stay upright for 3 hours after eating ?? Continue pantoprazole 40mg twice a day take 30 minutes before food ?? Colonoscopy 08/2022 for surveillance ?? Consider pH impedence testing and/or trial of neuromodulator (note trazodone mad her too sleepy)vs medication for bile acid reflux (note baclofen caused constipation) Follow-up in: 3 months The risks, benefits and alternatives were discussed with the patient who understands and agrees with above. Total visit time: 20 minutes Counseling time: Greater than 15 minutes of this 20 minute face to face visit were spent in direct counseling and coordination of care for the above issues. Erum Szymanski MD 06/17/21 Erum Szymanski MD [employer] Teacherarchival records clerk Section of Gastroenterology and Hepatology [email or web address] ([email or web address]) documented in this encounter Plan of Treatment Upcoming Encounters Date Type Department Care Team (Late st Contact Info) Description 12/31/2024 10:00 AM EST Office [place] [phone] Mercy Amanda MD [facility] [address] [facility] [address] 04/01/2025 2:00 PM EDT Office [place] [phone] Erum Szymanski MD [facility] [place] [address] documented as of this encounter Visit Diagnoses Diagnosis Belching Flatulence, eructation, and gas pain Heartburn Dyspepsia Dyspepsia and other specified disorders of function of stomach documented in this encounter Care Teams Rolling Machine Operator Relationship Specialty Start Date End Date Sonido Cordoba PA [address] [place] [address] PCP - General Family Medicine 07/06/20 documented as of this encounter
--- OUTSIDE RECORDS SUMMARY | 2024-10-16 17:39 | XMS_ITS | Encounter Summary ---
[place] [address] Care Team Providers Care Pharmacy Innovation Assistant Name Role Phone Sonido Cordoba Primary Care Provider +1- [phone] Encounter Details Date Type Department Care Team (Late st Contact Info) Description 08/07/2022 Interpretation Only [facility] [address] [place] [address] Guanako Barclay, DO [address] [place] [address] Social History Tobacco Use Types [...] AM EST Office [place] [address] Mercy Amanda MD [facility] [address] [place] [address] 04/01/2025 2:00 PM EDT Office Visit Gastroenterology at [facility] [place] [address] Erum Szymanski MD [facility] [place] [address] documented as of this encounter Goals Goal [...] Name Priority Date/Time Associated Diagnosis Comments XR CHOLANGIOGRAM IN OR Routine 9:09 AM EDT documented in this encounter Results * XR CHOLANGIOGRAM IN OR (08/07/2022 9:09 AM EDT) PT CLASS O RAD ADMITDTTM RAD PT RAD INFO [id number]^D ANIELSON^CHR ISTOPHER^S RAD EXAM DESC XCHOL^CHOLAN GIOGRAM INTRAOP^RIS RAD Anatomical Region Laterality Modality Other Impressions 08/07/2022 9:15 AM EDT Fluoroscopic assistance provided to Dr. Barclay for fluoroscopic time of 33.4 seconds and cumulative dose of 12.3 mGy. ?? Radiologist was not present for the procedure. Thank you for letting us participate in the care of this patient. ??If you are a health care provider and have any questions regarding this report, please contact the number below. ??For patients who have questions please contact the health patient care director that requested your imaging first. ? Electronically signed by: Rustam Roman MD, [facility] ([phone]), at 08/07/2022 9:15 AM Narrative 08/07/2022 9:15 AM EDT EXAMINATION: CHOLANGIOGRAM INTRAOP COMPARISON: None FINDINGS: See impression. Procedure Note Rustam Roman MD - 08/07/2022 EXAMINATION: CHOLANGIOGRAM INTRAOP COMPARISON: None FINDINGS: See impression. IMPRESSION Fluoroscopic assistance provided to Dr. Barclay for fluoroscopic time of 33.4 seconds and cumulative dose of 12.3 mGy. Radiologist was not present for the procedure. Thank you for letting us participate in the care of this patient. If youare a health care provider and have any questions regarding this report,please contact the number below. For patients who have questions please contactthe health patient care director that requested your imaging first. Electronically signed by: Rustam Roman MD, [facility]([phone]), at 08/07/2022 9:15 AM Guanako Barclay DO PACS IMAGES documented in this encounter Visit Diagnoses Not on filedocumented in this encounter Care Teams Pharmacy Innovation Assistant Relationship Specialty Start Date End Date Sonido Cordoba PA [address] [place] [address] PCP - General Family Medicine 07/06/20 documented as of this encounter
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
--- OUTSIDE RECORDS SUMMARY | 2024-10-16 17:39 | XMS_ITS | Encounter Summary ---
Author Organization [facility] [place] [address] Care Team Providers Care Pipe Buffer Name Role Phone Sonido Cordoba Primary Care Provider +1- [phone] Encounter Details Date Type Department Care Team (Late st Contact Info) Description 05/24/2021 1:00 PM EDT - 05/24/2021 1:30 PM EDT Surgery [place] [address] Kathy Carnes MD [facility] [place] [address] EGD WITH BIOPSY (WRVU 2.39) Social History [...] Sign Reading Time Taken Comments Blood Pressure 132/49 05/24/2021 12:17 PM EDT Pulse 72 05/24/2021 12:17 PM EDT Temperature 36.9 ??C (98.4 ??F) 05/24/2021 12:17 PM E DT Respiratory Rate 20 05/24/2021 12:17 PM EDT Oxygen Saturation 99% 05/24/2021 12:17 PM EDT Inhaled Oxygen Concentration - - Weight - - Height - - Body Mass Index - - documented in this encounter Discharge Instructions * Discharge Instructions* Tyler Nick RN - 05/24/2021 1:34 PM EDT Upper GI Endoscopy: What to [...] home? Activity Rest when you feel tired. ?? You can do your normal activities when it feels okay to do so. Diet ?? Follow your doctor's directions for eating. ?? Unless your doctor has told you not to, drink plenty of fluids. This helps to replace the fluidsthat were lost during the prep. ?? Do not drink alcohol. Medicines ?? Your doctor will tell you if and when you can restart your medicines. He or she will also give you instructions about taking any new medicines. ?? If you take blood thinners, such as warfarin (Coumadin), clopidogrel (Plavix), or aspirin, be sure to talk to your doctor. He or she will tell you if and when to start taking those medicines again. Make sure that you understand exactly what your doctor wants you to do. ?? If polyps were removed or a biopsy was done during the test, your doctor may tell you not to take aspirin or other anti-inflammatory medicines for a few days. These include ibuprofen (Advil, Motrin) and naproxen (Aleve). ?? If you have a sore throat the day after the procedure, use an jzpi-rlm-cepjqko spray to numb your throat. Sucking on throat lozenges and gargling with warm salt water may also help relieve your symptoms. Other instructions ?? For your safety, do not drive or operate machinery until the medicine wears off and you can think clearly. Your doctor may tell you not to drive or operate machinery until the day after your test. ?? Do not sign legal documents or make major decisions until the medicine wears off and you can think clearly. The anesthesia can make it hard for you to fully understand what you are agreeing to. Additional Information for Sedation Patients For patients who received sedation: ?? You may have received medications before and/or during your procedure which effects your judgement and reaction time. ?? Do not drive, operate machinery, drink alcoholic beverages or make important decisions for 24 hours. ?? Be careful on stairs as you may be unsteady on your feet. ?? You may eat a regular diet as tolerated. ?? Do not smoke if you are alone. ?? IV site: Slight redness or tenderness is normal, you can use a warm compress if you would like. If tenderness and/or redness increase or if foul drainage occurs, please contact your Doctor. Please call [phone] before 8pm Mon-Fri with problems, questions or concerns. If you call after 8pm or on weekends, call the Hospital at [phone] and ask to speak to the [employer] transportation mechanic and the resaw machine operator will contact that person for you. When should you call for help? Call [phone] anytime you think you may need emergency care. For example, call if: ?? You passed out (lost consciousness). ?? You pass maroon or bloody stools. ?? You have trouble breathing. Call your doctor now or seek immediate medical care if: ?? You have pain that does not get better after you take pain medicine. ?? You are sick to your stomach or cannot drink fluids. ?? You have new or worse belly pain. ?? You have blood in your stools. ?? You have a fever. ?? You cannot pass stools or gas. Watch closely for changes in your health, and be sure to contact your doctor if you have any problems. Where can you learn more? [facility] View your After Visit Summary and more online at [email or web address] If you would like to provide feedback about your hospital experience, please call the Office of Patient and Family Relations at . If you have received this After Visit Summary in error, please immediately return it in person to the department, or notify the D- Privacy Office by calling toll free at between the hours of 8AM and 5PM to arrange for our retrieval of the documents at no cost to you. Content Version: 12.2 ?? [id number] [employer]. Care instructions adapted under license by [facility]. If you have questions about a medical condition or this instruction, always ask your healthcare professional. [employer] disclaims any warranty or liability for your use of this information. documented in this encounter Medications at Time of Discharge Medication Sig Dispensed Refills Start Date End Date cyclobenzaprine (Flexeril) 10 mg Tablet Take 10 mg by mouth 3 times daily as needed for Muscle spasms. meclizine (ANTIVERT) 12.5 mg Tablet Take 12.5 mg by mouth 3 times daily as needed. 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 60 tablet 3 10/08/2020 12/21/2021 acetaminophen (Tylenol) 500 mg Tablet Take 1,000 mg by mouth every 6 hours as needed for Pain. 05/30/2024 traZODone (DESYREL) 50 mg Tablet nightly as needed. 0 02/08/2016 4 documented as of this encounter H&P Notes * Kathy Carnes MD - 05/24/2021 1:07 PM EDT Gastroenterology and Hepatology Pre-Procedure History and Physical Exam Procedure: EGD: Indication: GERD, MOYA placement PROBLEM LIST Patient Active Problem List Diagnosis Code ??? [...] Peroneal tendon tear, right, subsequent encounter S86.311D MEDICATIONS No current facility-administered medications on file prior to encounter. Current Outpatient Medications on File Prior to Encounter Medication Sig Dispense Refill ??? cyclobenzaprine (Flexeril) 10 mg Tablet Take 10 mg by mouth 3 times daily as needed for Muscle spasms. ??? pantoprazole EC (Protonix) 40 mg Tablet, Delayed Release (E.C.) Take 1 tablet by mouth 2 times daily (before meals). 60 tablet 3 ??? acetaminophen (Tylenol) 500 mg Tablet Take 1,000 mg by mouth every 6 hours as needed for Pain. ??? meclizine (ANTIVERT) 12.5 mg Tablet Take 12.5 mg by mouth 3 times daily as needed. ??? traZODone (DESYREL) 50 mg Tablet 0 PHYSICAL EXAM: GEN: Alert, cooperative, pleasant and in NAD HEENT: Airway examined, oropharyngeal clear without lesions Mallampati Score: see anesthesia note Neck: Supple, no lymphadenopathy or masses LUNGS: Clear to auscultation HEART: Regular rate and rhythm, normal S1, S2 ABDOMEN: Normal bowel sounds, soft, non tender, non distended EXT: No clubbing, cyanosis or edenoma NEURO: No focal deficits RECENT LABS No results found for this or any previous visit (from the past 24 hour(s)). ASSESSMENT AND PLAN Vianney Cordero is a 45 y.o. y/o who presents for endoscopy. Risks and benefits of the procedure explained to the patient. We discussed in depth possible risks include reaction to anesthesia, bleeding, infection, perforation, bruising of other organs in the body, and/or other unforseen complication. All of the patients questions were answered. Patient wishes to proceed and consent was signed. Proceed with the planned endoscopic procedure. ASA grade: see anesthesia note Sedation Plan: anesthesia Kathy Carnes MD Gastroenterology attending Pager [phone] documented in this encounter Plan of Treatment Upcoming Encounters Date Type Department Care Team (Late st Contact Info) Description 12/31/2024 10:00 AM EST Office [place] [phone] Mercy Amanda MD [facility] [address] 04/01/2025 2:00 PM EDT Office [place] [address] Erum Szymanski MD [facility] [place] [address] documented as of this encounter Procedures Procedure Name Priority Date/Time Associated Diagnosis Comments SURGICAL PATHOLOGY REPORT Routine 05/24/2021 1:26 PM EDT SPECIMEN TO PATHOLOGY Routine 05/24/2021 1:26 PM EDT SPECIMEN TO PATHOLOGY Routine 05/24/2021 1:26 PM EDT SPECIMEN TO PATHOLOGY Routine 05/24/2021 1:26 PM EDT SPECIMEN TO PATHOLOGY Routine 05/24/2021 1:26 PM EDT Upper Gi Endoscopy, Biopsy ([id number]) 05/24/2021 1:07 PM EDT MOYA pH study ON BID PPI with an upper endoscopy for refractory reflux, history of TYESHA, evaluate wrap as well - NEEDS MAC (anesthesia) UPPER GI ENDOSCOPY Routine 05/24/2021 12 :40 PM EDT documented in this encounter Results * Surgical Pathology Report (05/24/2021 1:26 PM EDT) Final Diagnosis [id number] ? Location: 4T; EA06; A The signing pathologist has (i) examined the relevant preparation(s) for the specimen(s) and (ii) rendered or confirmed the diagnosis(es). . ?Surgical Pathology DIAGNOSIS A - Esophagus at 35 cm, biopsy: - ??Cardiac gland mucosa with chronic nonspecific gastritis. - ??No goblet cell metaplasia is seen. B - ??Esophagus at 33 cm, biopsy: - ??Specialized metaplastic columnar mucosa consistent with Rodgers's esophagus. - ??No dysplasia is seen. C - ??Esophagus at 31 cm, biopsy: - ??Squamous esophageal and specialized metaplastic columnar mucosa consistent with Rodgers's esophagus. - ??No dysplasia is seen. D - ??Esophagus at 29 cm, biopsy: - ??Squamous esophageal and specialized metaplastic columnar mucosa consistent with Rodgers's esophagus. - ??No dysplasia is seen. Electronically signed by: ?Ayad Dee MD Verified: ??05/30/2021 11:28 ??Pathologist Performed at: ??-[facility] Dept. 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 Quantity/Size: Four, ranging 0.3 0.4 cm. Tissue Description: Soft, red-gray tissues. Sections/Processi ng: Submitted en toto ??in 1 cassette labeled A1. B - Labeled/Fixative: Esophagus at 33 cm, formalin. Quantity/Size: Three, ranging 0.2 0.3 cm. Tissue Description: Soft, red-gray tissues. Sections/Processi ng: Submitted en toto ??in 1 cassette labeled B1. C - Labeled/Fixative: Esophagus at 31 cm, formalin. Quantity/Size: Three, ranging 0.2-0.4 cm. Tissue Description: Soft, pink-red tissues. Sections/Processi ng: Submitted en toto ??in 1 cassette labeled C1. D - Labeled/Fixative: Esophagus at 29 cm, formalin. Quantity/Size: Four, ranging less than 0.1-0.4 cm. Tissue Description: Soft, pink-red tissues. . SPECIMEN PROCESSING Sections/Processi ng: Submitted en toto ??in 1 cassette labeled D1. ??MLL 05/30/2021 11:28 AM EDT [facility] GI Biopsy 05/24/2021 1:26 PM EDT 05/24/2021 1:26 PM EDT GI Biopsy 05/24/2021 1:26 PM EDT 05/24/2021 1:26 PM EDT GI Biopsy 05/24/2021 1:26 PM EDT 05/24/2021 1:26 PM EDT GI Biopsy 05/24/2021 1:26 PM EDT 05/24/2021 1:26 PM EDT Kathy Carnes MD PATHOLOGY/CYTOLOG Y ORDERABLES [facility] [place] [address] * Specimen to Pathology (05/24/2021 1:26 PM EDT) AP Specimen 05/24/2021 1:26 PM EDT 05/24/2021 1:26 PM EDT Narrative [facility] - 05/24/2021 1:26 PM EDT Specimen requisition ordered. ??Separate Pathology report to follow Kathy Carnes MD PATHOLOGY/[place] [address] * Specimen to Pathology (05/24/2021 1:26 PM EDT) AP Specimen 05/24/2021 1:26 PM EDT 05/24/2021 1:26 PM EDT Narrative [facility] - 05/24/2021 1:26 PM EDT Specimen requisition ordered. ??Separate Pathology report to follow Kathy Carnes MD PATHOLOGY/CYTOLOG Y ORDERABLES Performing Organization Address [facility] [place] [address] * Specimen to Pathology (05/24/2021 1:26 PM EDT) AP Specimen 05/24/2021 1:26 PM EDT 05/24/2021 1:26 PM EDT Narrative [facility] - 05/24/2021 1:26 PM EDT Specimen requisition ordered. ??Separate Pathology report to follow Kathy Carnes MD PATHOLOGY/CYTOLOG Y ORDERABLES Performing Organization Address [facility] [place] [address] * Specimen to Pathology (05/24/2021 1:26 PM EDT) AP Specimen 05/24/2021 1:26 PM EDT 05/24/2021 1:26 PM EDT Narrative [facility] - 05/24/2021 1:26 PM EDT Specimen requisition ordered. ??Separate Pathology report to follow Kathy Carnes MD PATHOLOGY/CYTOLOG Y ORDERABLES Performing Organization Address [facility] [place] [address] * UPPER GI ENDOSCOPY (05/24/2021 12:40 PM EDT) UPPER GI ENDOSCOPY [facility] Endoscopy ___ Procedure Date: 05/24/2021 12:40 PM ? Patient Name: Vianney Cordero ? Date of : 1975 ? Age: 45 ? Order #: [id number] ? Instrument Name: [id number] ? ___ Procedure: ? Upper GI endoscopy Indications: ? Follow-up of gastro-esophageal reflux ? disease and placement of MOYA, ? 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 Kathy Carnes MD, Fouzia ? Tyler Funez Referring MD: ?WANDY Andrade Requesting Provider: Erum Szymanski MD Medicines: ? Monitored Anesthesia Care Complications: ? No immediate complications. ___ Procedure: ? The procedure, indications, benefits, ? risks and alternatives were explained ? to the patient. Specifically ? discussed were potential ? complications including, but not ? limited to, bleeding, perforation, ? infection, missing a cancer, and ? adverse medication reactions. The ? Endoscope was introduced through the ? mouth, and advanced to the second ? part of duodenum. The patient ? tolerated the procedure well. The ? upper GI endoscopy was accomplished ? without difficulty. The patient ? tolerated the procedure well. ? Findings: ? The Z-line was regular and was found 35 cm from the ? incisors. ? There were esophageal mucosal changes consistent with ? long-segment Rodgers's esophagus present from 28 to ? 35 cm from the incisors. The maximum longitudinal ? extent of these mucosal changes was 7 cm in length. ? Mucosa was biopsied with a cold large-capacity ? forceps for histology in 4 quadrants at intervals of ? 2 cm. A total of 4 specimen bottles were sent to ? pathology. ? The MOYA capsule with delivery system was introduced ? through the mouth and advanced into the esophagus, ? such that the MOYA pH capsule was positioned 29 cm ? from the incisors, which was 6 cm proximal to the GE ? junction. The MOYA pH capsule was then deployed and ? attached to the esophageal mucosa. The delivery ? system was then withdrawn. Initial pH was 6.3. ? Endoscopy was utilized for probe placement and ? diagnostic evaluation. ? Evidence of a Tyesha fundoplication was found at the ? gastroesophageal junction. The wrap appeared intact. ? This was traversed. ? The exam of the stomach was otherwise normal. ? The examined duodenum was normal. ? Moderate Sedation: ? Not applicable - See Anesthesia documentation Impression: ?- Long-segment Rodgers's esophagus ? from 28-35 cm. Four-quadrant biopsies ? taken every 2 cm. ? - MOYA pH capsule placed. ? - Evidence of Tyesha fundoplication. Recommendation: ?- Await pathology results. Interval ? of next EGD to be determined after ? reviewing pathology (suspect 3 years). ? - Continue current medications. ? - Discharge home ambulatory. ? - Follow-up with Dr. Szymanski for ? further care. ? Attending Participation: ? I personally performed the entire procedure. ? Kathy Carnes MD 05/24/2021 1:36:08 PM Number of Addenda: 0 Note Initiated On: 05/24/2021 12:40 PM PROVATION 05/24/2021 12:4 0 PM EDT Unknown GENERAL SURGICAL ORD ERABLES PROVATION documented in this encounter Visit Diagnoses Not on filedocumented in this encounter Administered Medications Inactive Administered Medications - up to 3 most recent administrations Medication Order MAR Action Action Date Dose Rate Site lactated ringers infusion 100 mL/hr, Intravenous, CONTINUOUS, Starting on 05/24/21 at 1230, Until 05/24/21 at 1410, Endoscopy (Day of Procedure) Restarted 05/24/2021 1:26 PM EDT New Bag 05/24/2021 12:34 PM EDT 100 mL/hr 100 mL/hr documented in this encounter Active and Recently Administered Medications Times are shown in EDT. Continuous Medication Order 05/22/2021 05/23/2021 05/24/2021 lactated ringers infusion (CANCELED) 100 mL/hr, Intravenous, CONTINUOUS, Starting on 05/24/21 at 1230, Until 05/24/21 at 1410, Endoscopy (Day of Procedure) 1234 (New Bag - Prov ider: Lilia Moreno RN)1325 (Paused - Provider: Nichelle Guzman CRNA - Comment: Switch to gravity)1326 (Restarted - Provider: Nichelle Guzman CRNA)1335 (Stopped - Provider: Fernandez Luciano MD) documented in this encounter Care Teams Pipe Buffer Relationship Specialty Start Date End Date Sonido Cordoba PA [address] [place] [address] PCP - General Family Medicine 07/06/20 documented as of this encounter
--- OUTSIDE RECORDS SUMMARY | 2024-10-16 17:39 | XMS_ITS | Encounter Summary ---
[place] [address] Care Team Providers Care Ornamenter Name Role Phone Sonido Cordoba Primary Care Provider +1- [phone] Reason for Referral * Diagnostic Test (Routine) - Closed Specialty Diagnoses / Procedures Referred By Contac t Referred To Contact Radiology Diagnoses Peroneal tendon tear, right, subsequent encounter Procedures MRI Ankle wo Contrast Right Gracy Ellis PA [facility] [place] [address] [place] [address] Referral ID Status Reason Start Date Expiration Date V isits Requested Visits Authorized [id number] Closed Specialty Service Requested 08/03/2021 01/31/2023 1 1 Reason for Visit * Diagnostic Test (Routine) - Closed Specialty Diagnoses / Procedures Referred By Contac t Referred To Contact Radiology Diagnoses Peroneal tendon tear, right, subsequent encounter Procedures MRI Ankle wo Contrast Right Gracy Ellis PA [facility] [place] [address] [facility] [address] Referral ID Status Reason Start Date Expiration Date V isits Requested Visits Authorized [id number] Closed Specialty Service Requested 08/03/2021 01/31/2023 1 1 Encounter Details Date Type Department Care Team (Latest Contact Info) Description 08/26/2021 6:23 PM EDT - 08/26/2021 11:59 PM EDT Hospital [place] [address] Milly Avila MD [facility] DR ORTHOPAED[place] [address] Peroneal tendon tear, right, subsequent encounter Discharge Disposition: Home Social History Tobacco Use [...] AM EST Office [place] [phone] Mercy Amanda MD [facility] [address] [facility] [place] [address] 04/01/2025 2:00 PM EDT Office [place] [phone] Erum Szymanski MD [facility] [place] [address] documented as of this encounter Procedures Procedure Name Priority Date/Time Associated Diagnosis Comments MRI ANKLE RIGHT WO CONTRAST Routine 08/26/2021 7:35 PM EDT Peroneal tendon tear, right, subsequent encounter documented in this encounter Results * MRI Ankle wo [...] who have questions please contact the health customer care manager that requested your imaging first. ? Narrative 08/29/2021 4:49 PM EDT EXAMINATION: MRI [...] residual findings of plantar fasciitis when compared [id number]. Preliminary report signed by: Henry Whaetley at 08/29/2021 3:00 PM I have personally reviewed the image(s) and the resident's interpretationand agree with the findings, Melanie Jimenes MD at 08/29/2021 4:49 PM Thank you for letting us participate in the care of this patient. If youare a health care provider and have any questions regarding this report,please contact the number below. For patients who have questions please contactthe health customer care manager that requested your imaging first. Electronically signed by: Melanie Jimenes MD, [facility]([phone]), at 08/29/2021 4:49 PM Milly Avila MD IMG MRI ORDERABLES documented in this encounter Visit Diagnoses Diagnosis Peroneal tendon tear, right, subsequent encounter documented in this encounter Care Teams Ornamenter Relationship Specialty Start Date End Date Sonido Cordoba PA [address] [place] [address] PCP - General Family Medicine 07/06/20 documented as of this encounter
--- OUTSIDE RECORDS SUMMARY | 2024-10-16 17:39 | XMS_ITS | Encounter Summary ---
Author Organization [facility] Address [facility] [place] [address] Care Team Providers Care Salvage Inspector Wood Parts Name Role Phone Sonido Cordoba Primary Care Provider +1- [phone] Encounter Details Date Type Department Care Team (Latest Contact Info) Description 08/03/2021 11:36 AM EDT - 08/03/2021 11:59 PM EDT Hospital Encounter XRay at [address] [place] [address] Peroneal tendon tear, right, subsequent encounter Discharge [...] AM EST Office [place] [address] Mercy Amanda MD [facility] [address] [address] 04/01/2025 2:00 PM EDT Office [place] [address] Erum Szymanski MD [facility] [place] [address] documented as of this encounter Procedures Procedure Name Priority Date/Time Associated Diagnosis Comments XR FOOT MIN 3 VIEWS RIGHT Routine 08/03/2021 11:56 AM EDT Peroneal tendon tear, right, subsequent encounter documented in this encounter Results * XR Foot Min 3 views Right (Generic) (08/03/2021 11:56 AM EDT) Anatomical Region Laterality Modality Foot Right Digital Radiogra phy Impressions 08/03/2021 5:30 PM EDT No osseous abnormality. Unchanged alignment. Thank you for letting us participate in the care of this patient. ??If you are a health care provider and have any questions regarding this report, please contact the number below. ??For patients who have questions please contact the health healthcare management that requested your imaging first. ? Narrative 08/03/2021 5:30 PM EDT EXAMINATION: XR FOOT MIN 3 VIEWS RIGHT (GENERIC) CLINICAL HISTORY: Right peroneal brevis tendon debridement/tubularization. PAIN/SWELLING/NUMBNESS IN 3 TOES, , entered by ordering service TECHNIQUE: RIGHT foot, 3 views COMPARISON: MRI, September 2019. FINDINGS: Bones Unchanged foot alignment. Calcaneus-unchanged small plantar calcaneal enthesophytes. No erosions. Joints Normal alignment. Soft tissues Soft tissue swelling at dorsum of foot. Procedure Note Melanie Jimenes MD - 08/03/2021 EXAMINATION: XR FOOT MIN 3 VIEWS RIGHT (GENERIC) CLINICAL HISTORY: Right peroneal brevis tendondebridement/tubularization. PAIN/SWELLING/NUMBNESS IN 3 TOES, , entered by ordering service TECHNIQUE: RIGHT foot, 3 views COMPARISON: MRI, September 2019. FINDINGS: Bones Unchanged foot alignment. Calcaneus-unchanged small plantar calcaneal enthesophytes. No erosions. Joints Normal alignment. Soft tissues Soft tissue swelling at dorsum of foot. IMPRESSION No osseous abnormality. Unchanged alignment. Thank you for letting us participate in the care of this patient. If youare a health care provider and have any questions regarding this report,please contact the number below. For patients who have questions please contactthe health healthcare management that requested your imaging first. Joe Adam MD IMG DX ORDERABLES documented in this encounter Visit Diagnoses Diagnosis Peroneal tendon tear, right, subsequent encounter documented in this encounter Care Teams Salvage Inspector Wood Parts Relationship Specialty Start Date End Date Sonido Cordoba PA [address] [place] [address] PCP - General Family Medicine 07/06/20 documented as of this encounter
--- OUTSIDE RECORDS SUMMARY | 2024-10-16 17:39 | XMS_ITS | Encounter Summary ---
[place] [address] Care Team Providers Care Yield Engineer Name Role Phone Sonido Cordoba Primary Care Provider +1- [phone] Encounter Details Date Type Department Care Team (Late st Contact Info) Description 02/10/2022 External Results Weight and Wellness at [address] [id number] Kezia Preston, RN Social History Tobacco Use [...] AM EST Office [place] [address] Mercy Amanda MD [facility] [place] [address] 04/01/2025 2:00 PM EDT Office Visit Gastroenterology at [facility] [place] [phone] Erum Szymanski MD [facility] [place] [address] documented as of this encounter Goals Goal [...] a priority: - Eggs - Cheese - French yogurt / cottage cheese - meat - [...] Procedure Name Priority Date/Time Associated Diagnosis Comments [facility] EXTERNAL RESULT PANEL Routine 01/19/2022 documented in this encounter Results * (ABNORMAL) [facility] External Results (01/19/2022) Glucose Fasting 87 Blood Urea Nitrogen 22(H) Creatinine 0.69 Sodium 137 Potassium 3.6 Chloride 105 Carbon Dioxide 22 Anion Gap 14 Calcium 8.3(L) Protein, Total 7.5 Albumin 3.9 Aspartate Aminotransferase 13(L) Alanine Aminotransferase 15 Alkaline Phosphatase 72 Bilirubin, Total 0.4 Est Glomerular Filtration Rate >60 Vitamin D Total 25 OH 22.6(L) Thyroid Stimulating Hormone 1.954 Globulin 3.63 Ferritin 109 Vitamin B12 442 Historical Provider POINT OF CARE SHAGGY T ORDERABLES documented in this encounter Visit Diagnoses Not on filedocumented in this encounter Care Teams Yield Engineer Relationship Specialty Start Date End Date Sonido Cordoba PA [address] [place] [address] PCP - General Family Medicine 07/06/20 documented as of this encounter
--- OUTSIDE RECORDS SUMMARY | 2024-10-16 17:39 | XMS_ITS | Encounter Summary ---
[place] [address] Care Team Providers Care Network Operations Analyst Name Role Phone Sonido Cordoba Primary Care Provider +1- [phone] Encounter Details Date Type Department Care Team (Late st Contact Info) Description 02/22/2022 Interpretation Only [address] [address] Clovis Dill MD [place] [address] Social History Tobacco Use Types Packs/Day Years [...] AM EST Office [place] [phone] Mercy Amanda MD [facility] [address] [address] 04/01/2025 2:00 PM EDT Office Visit Gastroenterology at [facility] [place] [address] Erum Szymanski MD [facility] [place] [address] documented as of this encounter Goals Goal [...] Name Priority Date/Time Associated Diagnosis Comments XR WRIST 3 VIEWS LEFT STAT 02/22/2022 1:01 PM EDT documented in this encounter Results * XR Wrist 3 Views Left (02/22/2022 1:01 PM EDT) PT CLASS E RAD ADMITDTTM RAD PT RAD INFO [id number]^E DWARDS^DAVION EL^R RAD EXAM DESC [id number]^X R LEFT WRIST COMPLETE^RIS RAD Anatomical Region Laterality Modality Left Radiographic Joann ging Impressions 02/22/2022 1:06 PM EDT No fracture Thank you for letting us participate in the care of this patient. ??If you are a health care provider and have any questions regarding this report, please contact the number below. ??For patients who have questions please contact the health zoo caretaker that requested your imaging first. ? Narrative [...] patients who have questions please contactthe health zoo caretaker that requested your imaging first. Electronically signed by: Bon Garduno MD, [facility] [place] [facility]([phone]), at 02/22/2022 1:06 PM Clovis Dill MD IMG DX ORDERABLES documented in this encounter Visit Diagnoses Not on filedocumented in this encounter Care Teams Network Operations Analyst Relationship Specialty Start Date End Date Sonido Cordoba PA [address] [place] [address] PCP - General Family Medicine 07/06/20 documented as of this encounter
--- OUTSIDE RECORDS SUMMARY | 2024-10-16 17:39 | XMS_ITS | Encounter Summary ---
Author Organization [facility] [place] [address] Care Team Providers Care Clothing Designer Name Role Phone Sonido Cordoba Primary Care Provider +1- [phone] Encounter Details Date Type Department Care Team (Late st Contact Info) Description 07/26/2021 Telephone [place] [phone] Gracy Ellis PA [facility] [place] [address] Social History Tobacco Use Types Packs/Day Years [...] AM EST Office [place] [phone] Mercy Amanda MD [facility] [address] [address] 04/01/2025 2:00 PM EDT Office Visit [place] [phone] Erum Szymanski MD [facility] [place] [address] documented as of this encounter Results * XR Foot Min [...] who have questions please contact the health physician primary care sports medicine that requested your imaging first. ? Narrative [...] patients who have questions please contactthe health physician primary care sports medicine that requested your imaging first. Electronically signed by: Melanie Jimenes MD, [facility]([phone]), at 08/03/2021 5:30 PM Joe Adam MD IMG DX ORDERABLES documented in this encounter Visit Diagnoses Diagnosis Peroneal tendon tear, right, subsequent encounter Peroneal tendon tear, right, subsequent encounter documented in this encounter Care Teams Clothing Designer Relationship Specialty Start Date End Date Sonido Cordoba PA [address] [place] [address] PCP - General Family Medicine 07/06/20 documented as of this encounter
--- OUTSIDE RECORDS SUMMARY | 2024-10-16 17:39 | XMS_ITS | Encounter Summary ---
[place] [address] Care Team Providers Care Materials Handler Name Role Phone Sonido Cordoba Primary Care Provider +1- [phone] Encounter Details Date Type Department Care Team (Late st Contact Info) Description 06/01/2022 4:24 PM EDT - 06/01/2022 11:59 PM EDT Hospital Encounter [facility] [address] [place] [phone] Guanako Barclay, DO [address] [place] [phone] Discharge Disposition: Home Social History Tobacco Use [...] AM EST Office [place] [address] Mercy Amanda MD [facility] [address] [place] [address] 04/01/2025 2:00 PM EDT Office Visit Gastroenterology at [facility] [place] [address] Erum Szymanski MD [facility] [place] [address] documented as of this encounter Goals Goal [...] (would rather have you choose regular bread/ malay muffin, etc. - whole wheat if possible- [...] Procedure Name Priority Date/Time Associated Diagnosis Comments COVID-19 PCR STAT 06/01/2022 10:00 AM EDT documented in this encounter Results * COVID-19 PCR (06/01/2022 10:00 AM EDT) SARS-CoV-2 RNA Not Detected Not Detected [facility] Comment: This result should be interpreted in combination with the clinical observations, patient history and epidemiological information. For testing of asymptomatic individuals, assay performance characteristics and clinical utility have not been evaluated. Testing for SARS-CoV-2 (Severe acute respiratory syndrome coronavirus 2, formerly known as 2019 novel coronavirus or 2019-nCoV) to aid in the diagnosis of COVID-19 is performed using the EasyCopayima SARS Co-V-2 Assay on the [employer] System ([employer] as authorized by the FDA issued Emergency Use Authorization (EUA). This assay is intended for In-vitro Diagnostic (IVD) use with nasopharyngeal swabs collected from individuals meeting the CDC criteria for testing. The assay is performed based on the instructions for use and additional guidance provided by the FDA. Testing is performed in the Microbiology Laboratory within the Department of Pathology and Laboratory Medicine at [facility], certified under the Clinical Laboratory Improvement Amendments of 1988 (CLIA), 42 U.S.C. section 263a, to perform high-complexity tests. Assay performance has been verified according to clinical laboratory regulatory requirements. Test results are provided above. A result of Not Detected indicates that the viral RNA target is not present but does not preclude SARS-CoV-2 infection. False negative results may occur if a specimen is improperly collected, transported or handled; if amplification inhibitors are present; or if inadequate numbers of viral particles are present in the specimen. A result of Detected suggests a current or recent infection and the patient is presumed to be infected. Positive and negative predictive values for this test are highly dependent on disease prevalence. A result of Invalid indicates the inability to conclusively determine the presence or absence of SARS-CoV-2 RNA in the sample which can be due to a variety of factors. ??Collection of a new sample for repeat testing is recommended in the case of an invalid result. CDC COVID-19 criteria for testing on human specimens and clinical management guidance information are available at the CDC Coronavirus Disease 2019 (COVID-19) webpage under Information for Healthcare Professionals (https://www.cdc.gov/coronavirus/2019-ncov/hcp/index.html). Additional information about this and other EUA tests can be found in provider and patient fact sheets at the following FDA website: https://www.fda.gov/medical-devices/rftolztttsw-seotjrz-7085-knvnf-51-braenhces- use-a regbyipnrbhth-thnquqb-vyvkvgt/lmacy-zlrdbfftany-wvsa SARS-CoV-2 RNA Source MIDDLEWARE ADMINISTRATOR Swab [facility] Nasopharyngeal Swab 06/01/20 10:00 AM EDT 06/01/2022 10:29 PM EDT Narrative Resulting Agency Comment Spec In Lab Guanako Barclay DO MOLECULAR ORD ERABLES [facility] [place] [address] documented in this encounter Visit Diagnoses Not on filedocumented in this encounter Care Teams Materials Handler Relationship Specialty Start Date End Date Sonido Cordoba PA [address] [place] [address] PCP - General Family Medicine 07/06/20 documented as of this encounter
--- OUTSIDE RECORDS SUMMARY | 2024-10-16 17:40 | XMS_ITS | Encounter Summary ---
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 Stop soda. No carbonation (bubbles). Carbonation worsens reflux. ?? Eat small frequent meals (avoid fasting for prolonged periods). Avoid fried foods and red sauces. Stay upright for 3 hours after eating ?? Increase pantoprazole to 40mg twice a day ?? If not covered, try adding pepcid 40mg at bedtime or switch to nexium 20mg twice a day ?? If no benefit, will check on your TYESHA fundoplication and do acid reflux testing Follow-up in: 6 months documented in this encounter Progress Notes * Erum Szymanski MD - 10/08/2020 10:30 AM EST [facility] Section of Gastroenterology and Hepatology Follow-Up Visit PCP: WANDY Aguilera HPI This is a 44 y.o. 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 Belching comes out as a hiccup and it is uncomfortable. Daily after meals. Voice is more hoarse. Heartburn more, first time since surgery. The other day about 1.5 hours after eating. Drank water and let it pass. No sensation of regurgitation. Can't recall what she ate. Feeling funny in throat. Sore. No change with gaviscon Started drinking soda again. Out of work now, no longer at [employer]. B - Bowl of cereal with almond milk. Next meal is dinner - pork chops, potatoes, corn, hamburger. Small portion. No late night eating. Dinner is around 5:30pm, bed is 7:30-8. Still taking protonix 20mg BID. Weight down from 240 to 208 lbs since our last visit - intentional Review of systems: 14-point review of systems reviewed and negative except as above. My review of the patients's history and testing (labs, endoscopies, imaging) is summarized below: GI PROBLEMS: 1. GERD with long segment non-dysplastic Rodgers's (h/o Tyesha for paraesophageal hernia): Throat burning, heartburn. 2. H pylori gastritis ?? Completed triple therapy in 2018. Stool testing still positive per report. ?? Re-treated with quadruple rx. Stool testing neg February 2019. 3. Chronic diarrhea 2/2 to lactose intolerance ?? Son with celiac ?? Ng TTG IgA and normal duodenal bx 2017 4. Lactose intolerance 5. Fatty liver ?? Fibroscan F0-1 6. Adenomatous colon polyp (1 in 2018) ?? Mom with CRC > 60 yo ?? Other polyps hyperplastic 7. Abd wall pain of RUQ (+ [...] ?? Normal EGD, HIDA scan 9. Gas/bloat Diagnostic studies: 1. US abd limited, 03/15/16 [...] examined duodenum. Normal stomach. Esophageal mucosal changes ??suggestive of long-segment Rodgers's esophagus. [...] C Ab neg. 9. RUQ US 03/19/19: ??Diffusely increased hepatic parenchymal echotexture??with loss of portal triads without suspicious focal lesion with??areas of focal fatty??sparing in keeping with diffuse fatty infiltration. 5 mm??simple left liver lobe??cyst. Normal gallbladder without sludge nor cholelithiasis. Normal biliary tree. 10. EGD and Colonoscopy 08/[address] Ji repeated for sore throat with swallowing, dyspepsia, gas/bloat. Normal colon biopsies. Non-dysplastic Rodgers's again found. 11. HIDA scan 03/2020 nomal Patient Active Problem List Diagnosis Code ??? [...] Peroneal tendon tear, right, subsequent encounter S86.311D Current Outpatient Medications: ??? traMADoL (Ultram) 50 mg Tablet, Take 1 tablet by mouth 2 times daily as needed for Pain. (Patient not taking: Reported on 08/25/2020), Disp: 15 tablet, Rfl: 0 ??? pantoprazole EC (Protonix) 20 mg Tablet, Delayed Release (E.C.), Take 1 tablet by mouth 2 timesdaily (before meals)., Disp: 180 tablet, Rfl: 3 ??? acetaminophen (Tylenol) 500 [...] take it ??? Oxycodone Nausea And Vomiting Past Medical History: Diagnosis Date ??? PTSD (post-traumatic stress disorder) Past Surgical History: Procedure Laterality Date ??? DILATION AND CURETTAGE OF UTERUS 1994 ??? PRO COLONOSCOPY, BIOPSY N/A 08/21/2018 COLONOSCOPY FLEXIBLE, WITH BX (WRVU 3.66) performed by Erum Szymanski MD at [facility]COPY ??? PRO COLONOSCOPY, BIOPSY N/A 09/04/2019 COLONOSCOPY FLEXIBLE, WITH BX (WRVU 3.66) performed by Steve Ji MD at [facility] ??? PRO COLONOSCOPY, DIAGNOSTIC N/A 09/04/2019 COLONOSCOPY, DIAGNOSTIC performed by Steve Ji MD at [facility] ??? PRO COLONOSCOPY, REMV LESN, SNARE N/A 08/21/2018 COLONOSCOPY, POLYPECTOMY, REMOVAL LESION BY SNARE (WRVU 4.67) performed by Erum Szymanski MD at [facility] ? ? PRO CYSTO W URETEROSCOPY &/OR PYELOSCOPY, DX Right 06/01/2015 CYSTOURETEROSCOPY, DIAGNOSTIC performed by Darius Nuñez Jr., MD at [facility] MAIN OR ??? PRO CYSTOSCOPY, INSERT URETERAL STENT Right 06/01/2015 CYSTO, STENT PLACEMENT performed by Darius Nuñez Jr., MD at [facility] MAIN OR ??? PRO LAP, ESOPHAGOGAST FUNDOPLASTY N/A 04/05/2015 LAPAROSCOPIC TYESHA FUNDOPLASTY performed by Valentín Moura MD at [facility] MAIN OR ??? PRO PERCUT DILATN RENAL TRACT Right 06/01/2015 PERCUTANEOUS INTRO GUIDE WIRE TO ACCESS RENAL PELVIS,AND OR URETER, W\DILATION performed by Darius Nuñez Jr., MD at [facility] MAIN OR ??? PRO PERCUT REMV KID STONE, UP TO 2 CM Right 06/01/2015 NEPHROLITHOTOMY, ([facility]) PERCUTANEOUS performed by Darius Nuñez Jr., MD at [facility] MAIN OR ??? PRO REPAIR PERONEAL TENDONS Right 08/12/2020 PERONEAL TENDON REPAIR (WRVU 7.35) performed by Mani Jefferson MD at [facility] OSC ??? PRO UPPER GI ENDOSCOPY, BIOPSY N/A 01/27/2015 EGD WITH BIOPSY performed by Brandt Barlow MD at [facility] ??? PRO UPPER GI ENDOSCOPY, BIOPSY N/A 02/28/2016 EGD WITH BIOPSY performed by Brandt Barlow MD at [facility] ??? PRO UPPER GI ENDOSCOPY, BIOPSY N/A 09/04/2016 EGD WITH BIOPSY performed by Brandt Barlow MD at [facility] ??? PRO UPPER GI ENDOSCOPY, BIOPSY N/A 09/24/2017 EGD WITH BIOPSY (WRVU 2.49) performed by Brandt Barlow MD at [facility] ??? PRO UPPER GI ENDOSCOPY, BIOPSY N/A 08/21/2018 EGD WITH BIOPSY (WRVU 2.49) performed by Erum Szymanski MD at [facility] ??? PRO UPPER GI ENDOSCOPY, BIOPSY N/A 09/04/2019 UPPER GASTROINTESTINAL ENDOSCOPY,WITH BIOPSY SINGLE OR MULTIPLE (WRVU 2.49) performed by Steve Ji MD at [facility] ??? PRO UPPER GI ENDOSCOPY, DIAGNOSTIC N/A 09/04/2019 EGD, UPPER GI ENDOSCOPY performed by Steve Ji MD at [facility] ??? TONSILLECTOMY Social History Socioeconomic History ??? Marital status: Spouse name: Not on file ??? Number of children: Not on file ??? Years of education: Not on file ??? Highest education level: Not on file Occupational History ??? Not on file Social Needs ??? Financial resource strain: Not on file ??? Food insecurity Worry: Not on file Inability: Not on file ??? Transportation needs Medical: Not on file Non-medical: Not on file Tobacco Use ??? Smoking status: Former Smoker Packs/day: 0.50 Years: 6.00 Pack years: 3.00 Types: Cigarettes Quit date: 01/25/1997 Years since quittin.7 ??? Smokeless tobacco: Never Used Substance and Sexual Activity ??? Alcohol use: Not Currently Comment: 1X/quarter ??? Drug use: No ??? Sexual activity: Yes Partners: Male control/protection: Surgical Lifestyle ??? Physical activity Days per week: Not on file Minutes per session: Not on file ??? Stress: Not on file Relationships ??? Social connections Talks on phone: Not on file Gets together: Not on file Attends congregation service: Not on file Active member of club or organization: Not on file Attends meetings of clubs or organizations: Not on file Relationship status: Not on file ??? Intimate partner violence Fear of current or ex partner: Not on file Emotionally abused: Not on file Physically abused: Not on file Forced sexual activity: Not on file Other Topics Concern ??? Not on file Social History Narrative ??? Not on file Family History Problem Relation Age of Onset ??? Diabetes Mother ??? Diabetes Maternal Grandmother ??? Diabetes Maternal Grandfather Physical Exam: BP 147/81 (BP Location (NBP): Left arm, Patient Position: Sitting, BP Cuff Sizes: Large Adult (32-43 cm)) Pulse 77 Ht 162.6 cm (5' 4) Wt 94.3 kg (208 lb) SpO2 98% BMI 35.70 kg/m?? PERTINENT LABS AND IMAGING: As noted above Gen: well appearing, no hiccups or belching Gen: soft, NT, ND, +BS Impression: 44 y.o. female following up for GERD. Hx of TYESHA fundoplication in 2015 and long-segment Rodgers's. Worsening symptoms despite PPI. Post-prandial hiccups and bleching likely 2/2 to GERD. Hiccups are not intractable. Diet playing a role. Has lost weight. ? loosening of fundoplication. Plan: ?? Stop soda. No carbonation (bubbles). Carbonation worsens reflux. ?? Eat small frequent meals (avoid fasting for prolonged periods). Avoid fried foods and red sauces. Stay upright for 3 hours after eating ?? Increase pantoprazole to 40mg twice a day ?? Previously failed pepcid, prilosec, gaviscon ?? If not covered, try adding pepcid 40mg QHS or switch to nexium 20mg BID ?? If no benefit, proceed with either EGD to look at TYESHA or upper GI series + do pH impedence ONPPI in the lab ?? Upper endoscopy and colonoscopy 08/2022 for surveillance Follow-up in: 6 months The risks, benefits and alternatives were discussed with the patient who understands and agrees with above. Total visit time: 23 minutes Counseling time: Greater than 13 minutes of this 23 minute face to face visit were spent in direct counseling and coordination of care for the above issues. Erum Szymanski MD 10/08/20 Erum Szymanski MD [employer] Section of Gastroenterology and Hepatology [email or web address] ([email or web address]) documented in this encounter Plan of Treatment Upcoming Encounters Date Type Department Care Team (Late st Contact Info) Description 12/31/2024 10:00 AM EST Office [place] [address] Mercy Amanda MD [facility] [address] 04/01/2025 2:00 PM EDT Office Visit [place] [address] Erum Szymanski MD [facility] [place] [address] documented as of this encounter Visit Diagnoses Diagnosis Gastroesophageal reflux disease with esophagitis, unspecified whether hemorrhage 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
--- OUTSIDE RECORDS SUMMARY | 2024-10-16 17:40 | XMS_ITS | Encounter Summary ---
[place] [address] Care Team Providers Care Cop Examiner Name Role Phone Sonido Cordoba Primary Care Provider [phone]- [phone] Reason for Referral * Diagnostic Test (Routine) - Closed Specialty Diagnoses / Procedures Referred By Contac t Referred To Contact Radiology Diagnoses Peroneal tendinitis, right Procedures MRI Ankle wo Contrast Right MRI Foot wo Contrast Right Lizbeth Guzman APRN [facility] [place] [address] [place] [address] Referral ID Status Reason Start Date Expiration Date V isits Requested Visits Authorized [id number] Closed Specialty Service Requested 1 1 Reason for Visit * Diagnostic Test (Routine) - Closed Specialty Diagnoses / Procedures Referred By Contac t Referred To Contact Radiology Diagnoses Peroneal tendinitis, right Procedures MRI Ankle wo Contrast Right MRI Foot wo Contrast Right Lizbeth Guzman APRN [facility] [place] [address] [facility] [place] [address] Referral ID Status Reason Start Date Expiration Date V isits Requested Visits Authorized [id number] Closed Specialty Service Requested 1 1 Encounter Details Date Type Department Care Team (Latest Contact Info) Description 09/29/2019 3:01 PM [facility] Hospital [place] [address] Lizbeth Guzman APRN [facility] [place] [address] Peroneal tendinitis, right Discharge Disposition: Home Social History Tobacco Use Types Packs/Day Years Used Date Smoking Tobacco: Former Cigarettes 0.5 6 0 01/25/1991 - 01/25/1997 Smokeless Tobacco: Never Alcohol Use Standard Drinks/Week Comments Yes 0 (1 standard drink = 0.6 oz pur e alcohol) 1X/quarter Sex and Gender Information Value Date Recorded Sex Assigned at Not on file Gender Identity Female 08/09/2020 11:37 PM EDT Sexual Orientation Not on file documented as of this encounter Medications at Time of Discharge Medication Sig Dispensed Refills Start Date End Date meclizine (ANTIVERT) 12.5 mg Tablet Take 12.5 mg by mouth 3 times daily as needed. diclofenac (VOLTAREN) 1 % Gel Apply 2 g topically 4 times daily as needed. 100 g 1 03/19/2019 05/04/2020 tetracycline (ACHROMYCIN;SUMYCIN) 500 mg CapsuleIndications:H pylori ulcer Take 1 capsule by mouth 4 times daily. 56 capsule 12/31/2018 05/04/2020 metroNIDAZOLE (FLAGYL) 250 mg TabletIndications:H pylori ulcer Take 1 tablet by mouth 4 times daily. 56 tablet 12/31/2018 07/06/2020 pantoprazole (PROTONIX) 20 mg Tablet, Delayed Release (E.C.)Indications:H. pylori infection Take 1 tablet by mouth 2 times daily (before meals). 60 tablet 09/10/2018 03/08/2020 gabapentin (NEURONTIN) 100 mg Capsule 400 mg. 0 02/08/2016 08/12/2020 pantoprazole (PROTONIX) 40 mg Tablet, Delayed Release (E.C.) take 1 tablet by mouth once daily 0 03/10/2016 03/08/2020 traZODone (DESYREL) 50 mg Tablet nightly as needed. 0 02/08/2016 4 gabapentin (NEURONTIN) 300 mg Capsule Take 200 mg by mouth nightly. 08/12/2020 documented as of this encounter Progress Notes * Hanh Barrera RN - 09/24/2019 11:13 AM EST MRI PRE-SEDATION ASSESSMENT NOTE NAME: Vianney Cordero AGE: 43 y.o. : [address] [place] [id number] Female [phone] (home) [phone] (work) Telephone Information: WANDY Aguilera No primary care provider on file. Allergies Allergen Reactions ??? Oxycodone Nausea And Vomiting Date/Time of call: September 24, 2019/11:13 AM/ PREVIOUS MRI SCAN? Yes HEIGHT: 5'3 WEIGHT: 249 lbs SCHEDULED SCAN: MRI ANKLE RIGHT WO CONTRAST [[id number]] (60 mins, feet first, supine) SUBJECTIVE: A little claustrophobic, states at her last scan she was told she might benefit from some sedation medication because she had a very hard time staying still in the scanner CAN YOU LAY FLAT? yes AIRWAY ISSUES? no DO YOU HAVE ANY INVOLUNTARY MOVEMENTS? no DO YOU HAVE ANY PAIN? no DO YOU TAKE PAIN MED ON A DAILY BASIS? no ASSESSMENT: appropriate for PO sedation PLAN: Valium 5-10mg PO ( XXX ) You must have a show horse driver present when you check in. This patient has been informed that they require a show horse driver to drive them home after this procedure. In the absence of a show horse driver, IR will not be able to sedate for your scan. Pt verbalized understanding of these instructions during the pre-procedure education via phone. XX Yes [place] of show horse driver: Mom Phone number PRIOR SCAN DATE/S SEDATION TYPE SUCCESSFUL 11/02/15 MRI Lumbar spine wo unknown yes 03/31/16 MRI Pelvis wo unknown yes 11/07/17 MRI left shoulder wo unknown yes 09/29/19 MRI Right Ankle wo Valium 5 mg PO x Revised 04/02/18 documented in this encounter Plan of Treatment Upcoming Encounters Date Type Department Care Team (Late st Contact Info) Description 12/31/2024 10:00 AM EST Office [place] [phone] Mercy Amanda MD [facility] [address] [facility] [address] 04/01/2025 2:00 PM EDT Office [place] [phone] Erum Szymanski MD [facility] [place] [address] documented as of this encounter Procedures Procedure Name Priority Date/Time Associated Diagnosis Comments MRI ANKLE RIGHT WO CONTRAST Routine 09/29/2019 5:45 PM EST Peroneal tendinitis, right documented in this encounter Results * MRI Ankle wo Contrast Right (09/29/2019 5:45 PM EST) Anatomical Region Laterality Modality Ankle Right Magnetic Resonan ce Impressions 09/30/2019 8:46 AM EST 1. ??Longitudinal split tear of the peroneus brevis in the retromalleolar groove with reconstitution at the level of the calcaneal cuboid joint. 2. ??MR findings consistent with plantar fasciitis. 3. ??Early tibiotalar chondrosis. Thank you for letting us participate in the care of this patient. For questions regarding this report, please contact the number below. ? Electronically signed by: GREGORIA Almazan [facility] ([phone]), at 09/30/2019 8:46 AM Narrative 09/30/2019 8:46 AM EST EXAMINATION: MRI ANKLE WO CONTRAST RIGHT CLINICAL HISTORY: right foot peroneous brevis insertional chronic pain and strain full split thickness tear or subluxation (per history entered by ordering provider) TECHNIQUE: Routine MR of the right ankle was performed without contrast using a routine ankle protocol. COMPARISON: None FINDINGS: Tendons: The Achilles tendon is normal in morphology and signal. Thickening and intermediate signal the plantar fascia which measures 6 mm. There is a small amount of fluid signal along the undersurface of the origin of the central band of the plantar fascia (series 7, image 30). Findings are consistent with plantar fasciitis. No disruption of the medial flexor anterior extensor tendons. Longitudinal split tear of the peroneus brevis tendon in the retromalleolar groove and near the tip of the lateral malleolus (series 6, image 16 and 18). There is reconstitution of the peroneus brevis at the level of the calcaneal cuboid joint. No disruption of the peroneus longus. Ligaments: The anterior talofibular and posterior talofibular ligaments are intact. The calcaneofibular ligament is intact. Anterior tibiofibular and posterior tibiofibular ligaments are intact. The deep deltoid ligament fibers are intact. The tibial spring and spring ligament are intact. Bones, cartilage, joints: No acute fractures identified. No osteochondral lesion. There is cartilage irregularity and the medial corner of the tibial plafond (series 7, image 22). Muscles and soft tissues: Normal bulk and signal of visualized muscles. Normal fat signal in the sinus tarsi. No solid or cystic compressive lesion in the tarsal tunnel. Procedure Note Tammy Krishnamurthy MD - 09/30/2019 EXAMINATION: MRI ANKLE WO CONTRAST RIGHT CLINICAL HISTORY: right foot peroneous brevis insertional chronic painand strain full split thickness tear or subluxation (per history entered byordering provider) TECHNIQUE: Routine MR of the right ankle was performed without contrast using aroutine ankle protocol. COMPARISON: None FINDINGS: Tendons: The Achilles tendon is normal in morphology and signal. Thickening and intermediate signal the plantar fascia which measures 6 mm.There is a small amount of fluid signal along the undersurface of the origin ofthe central band of the plantar fascia (series 7, image 30). Findings areconsistent with plantar fasciitis. No disruption of the medial flexor anterior extensor tendons. Longitudinal split tear of the peroneus brevis tendon in theretromalleolar groove and near the tip of the lateral malleolus (series 6, image 16 and18). There is reconstitution of the peroneus brevis at the level of thecalcaneal cuboid joint. No disruption of the peroneus longus. Ligaments: The anterior talofibular and posterior talofibular ligamentsare intact. The calcaneofibular ligament is intact. Anterior tibiofibular and posterior tibiofibular ligaments are intact. The deep deltoid ligament fibers are intact. The tibial spring andspring ligament are intact. Bones, cartilage, joints: No acute fractures identified. Noosteochondral lesion. There is cartilage irregularity and the medial corner of thetibial plafond (series 7, image 22). Muscles and soft tissues: Normal bulk and signal of visualized muscles. Normal fat signal in the sinus tarsi. No solid or cystic compressive lesion in the tarsal tunnel. IMPRESSION 1. Longitudinal split tear of the peroneus brevis in the retromalleolargroove with reconstitution at the level of the calcaneal cuboid joint. 2. MR findings consistent with plantar fasciitis. 3. Early tibiotalar chondrosis. Thank you for letting us participate in the care of this patient. Forquestions regarding this report, please contact the number below. Electronically signed by: Tammy Krishnamurthy [facility]([phone]), at 09/30/2019 8:46 AM Lizbeth Guzman APRN IMG MRI ORDERABLES documented in this encounter Visit Diagnoses Diagnosis Peroneal tendinitis, right documented in this encounter Administered Medications Inactive Administered Medications - up to 3 most recent administrations Medication Order MAR Action Action Date Dose Rate Site diazePAM (VALIUM) tablet 5 mg 5 mg, Oral, 2 TIMES DAILY PRN, Starting on 09/29/19 at 0834, Until Sun09/30/19 at 0441, Anxiety, Angio/IR (Day of Procedure), Routine Given 09/29/2019 3:31 PM EST 5 mg documented in this encounter Care Teams Cop Examiner Relationship Specialty Start Date End Date Sonido Cordoba PA [address] [place] [address] PCP - General Family Medicine 11/16/15 06/22/20 documented as of this encounter
--- OUTSIDE RECORDS SUMMARY | 2024-10-16 17:40 | XMS_ITS | Encounter Summary ---
Author Organization Formerly [facility], Later [facility] [place] [address] Care Team Providers Care Beehive Kiln Supervisor Name Role Phone Sonido Cordoba Primary Care Provider [phone]- [phone] Reason for Visit * Auth/Cert Specialty Diagnoses / Procedures Referred By Aric madrigal Referred To Contact Diagnoses Right peroneal tendon tear Procedures PRO REPAIR PERONEAL TENDONS PERONEAL TENDON REPAIR (WRVU 7.35) Referral ID Status Reason Start Date Expiration Date Visits Re quested Visits Authorized [id number] 1 1 Encounter Details Date Type Department Care Team (Latest Contact Info) Description 08/12/2020 7:17 AM EDT - 08/12/2020 11:06 AM EDT Hospital Encounter [place]patient [place] [address] Mani Rowe MD [facility] [place] [address] Discharge Disposition: Home Social History Tobacco Use [...] Sign Reading Time Taken Comments Blood Pressure 132/74 08/12/2020 10:30 AM EDT Pulse 63 08/12/2020 10:30 AM EDT Temperature 36.6 ??C (97.9 ??F) 08/12/2020 10:00 AM E DT Respiratory Rate 20 08/12/2020 10:30 AM EDT Oxygen Saturation 98% 08/12/2020 10:30 AM EDT Inhaled Oxygen Concentration - - Weight 99.8 kg (220 lb) 08/12/2020 7:43 AM EDT Height 165.1 cm (5' 5) 08/12/2020 7:43 AM EDT Body Mass Index 36.61 08/12/2020 7:43 AM EDT documented in this encounter Discharge Instructions * Discharge Instructions* Yue Brito RN - 08/12/2020 8:38 AM EDT General Anesthesia Discharge Instructions Go home and rest. You may be sleepy for several hours. Take it easy as sudden position changes may cause nausea and/or dizziness. Use caution on stairs. Do not smoke if you are alone. Follow a light to regular diet as tolerated today. If nausea occurs, start with clear liquids, and progress slowly to a regular diet. Do not drive, operate machinery, drink alcoholic beverages or make any legal decisions after havinggeneral anesthesia. The medications given change your reaction time and alter your judgement. IV site -- slight redness is normal, you can use warm compresses. If tenderness and redness increases or foul drainage occurs, please contact your M.D. Patients who have had endotracheal tubes/LMA (tubes used by the anesthesia staff to ensure a safe airway during your operation) may have a sore throat. This is normal and cold liquids or soothing lozenges will help ease this discomfort. Narcotic pain medications can cause constipation, please ask the surgeons office what they recommend for prevention of this. Some non-pharmaceutical means of constipation prevention include increasing intake of fluids, eating more fruits and vegetables as well as fruit juices. If you are uncomfortable and/or unable to urinate within 8 hours of discharge and it is before 5 pm, call your physician. If it is after 5pm go to the closest emergency room or call the hospital shirt operator at [phone] and ask for physician hematologist oncologist covering for your physician. Questions or problems after 5pm or on a weekend: Call the [facility] shirt operator at and ask for the physician hematologist oncologist covering for your doctor. At 8:10 am you received 1000 mg of acetaminophen- Your next dose should not be taken before 8 hourshave passed. Next dose not before- 4pm You should not take more than a total of 3000 mg of acetaminophen in a 24 hour period. Lower Extremity Nerve Block Nerve blocks affect many types of nerves. The affected nerves control movement, pain, and normal sensation. This causes feelings such as: ?? Weakness ?? Numbness ?? Tingling ?? Heaviness ?? A feeling that your leg or foot has fallen asleep. A nerve block can last from about 2 to 48 hours, depending on the medications used. Usually the weakness wears off first, then you will feel a numb or tingly sensation. Finally, the pain may come back. This can happen in any order. If you continue to feel the effects of the nerve block for longer than 48 hours, please call the Anesthesiology department at . Pain Medication If needed, your surgeon will give you a prescription for pain medication. Start taking this medication before the nerve block wears off. Nerve blocks sometimes wear off during the night. It is a goodidea to take your pain medicine as prescribed before going to sleep so you won't wake up with pain.The idea is to have pain medicine in your body before the nerve block wears off. To help prevent nausea, eat something before taking the pain medicine. Once a nerve block starts to wear off, it is usually completely gone within 60 minutes. It is important to have pain medicine in your system before the block wears off completely. Helpful tips to protect the part of your body that is numb. After a nerve block, you cannot feel pain, pressure, or extremes in temperature. Because your leg or foot is numb, it is more at risk for injury. Therefore.... ?? While you are awake, try to change positions of your leg or foot often. This will help you avoidputting too much pressure on the limb for long periods of time. ?? While sleeping, pad the blocked limb with pillows to avoid placing too much pressure on the limb. ?? If you have a cast or a tight dressing, check the color of your toes every couple of hours. Callyour doctor if any look discolored. ?? Ask your family or support people to help with the above hints. QUESTIONS? Please call the Anesthesiology department at with concerns or after hours and ask for the anesthesiologist hematologist oncologist. * Patient Instructions* Noé Almanza MD - 08/12/2020 8:52 AM EDT Orthopaedic Surgery Discharge Instructions PROCEDURE: Right Peroneal Tendon Repair MEDICATION: ?? If you need a renewal of your pain medication, please contact the clinic at [phone]. PRESCRIPTION RENEWAL REQUEST CAN TAKE UP TO 3 DAYS TO PROCESS SO PLEASE PLAN ACCORDINGLY. Some narcotic pain medications can not be called into your pharmacy and require the prescription to be picked up or mailed to your pharmacy. You have been prescribed a pain medicine (Tramadol). You may take 1 pill every 6 hours as needed for pain. Your need for this medication should decrease over time. Stop as soon as you're able and arenot having significant pain. ?? The pain medication you are prescribed can cause constipation, so increase intake of fluids and fiber while taking them. You should also take an nmyr-zva-ezuqjff stool softener, colace or senna, to facilitate a bowel movement. ?? You may take Tylenol (acetaminophen) 1000 mg every 8 hours until your pain is well-controlled. After that you can take Tylenol as needed per package insert. Do not take more than 3,000 mg of Tylenol (acetaminophen) in 24 hours. ?? Avoid ibuprofen type medications (aleve, advil, motrin, naprosyn, celebrex). These medications have been suggested to slow bone healing. ANTICOAGULATION: Aspirin - You are being discharged on enteric-coated Aspirin 81mg by mouth twice aday. Continue this for 30 days from surgery. Take this medication with food or large amounts (240 mL) of water or milk to minimize GI irritation. ACTIVITY: 1. You are Non-weight bearing in the right lower extremity. Keep walker boot on at all times. 2. Remember to keep your right lower extremity elevated as much as possible to decrease swelling and control pain. 3. Remember to use a walker or crutches at all times for balance and protection. DIET: Eat a normal diet, with adequate amounts of protein and fiber. WOUND CARE: 1. Suture removal 2 weeks post-op. 2. Leave the operative dressing in place until follow-up. Keep clean dry, but if it becomes saturated or dirty, you may change the dressing and keep incision and sutures c SHOWER/BATH: Keep your cast/splint clean and dry. It is easiest to sponge bathe, but if you must bathe, protect the cast/splint with a plastic bag high above the cast or splint and secure with adhesive tape. CAST/SPLINT CARE Keep the cast or splint/ tall walker boot in place until your follow-up with Orthopaedics. Keep thecast/splint clean and dry. It is easiest to sponge bathe, but if you must bathe, protect the cast/splint with a plastic bag high above the cast or splint and secure with adhesive tape. Do not submerge the cast in water at anytime. If the cast accidently gets wet, call the office immediately to have it replaced. A wet cast can cause severe skin and wound problems. CALL YOUR SURGEON, IF YOU HAVE: ??? Fevers greater than 101.5* Fahrenheit ??? Chills or night sweats ??? Nausea or vomiting ??? Wound redness or discharge ??? Numbness or tingling in your hands or feet ??? Problems with the cast/splint or dressing ??? Any questions or concerns FOLLOW-UP APPOINTMENTS: 1. You will have a follow-up appointment with [facility] Orthopaedics as indicated below in Future Appointment and Orders. Please call to verify your appointment. Future Appointments Date Time Provider Department Center 08/25/2020 10:30 AM Gracy Ellis PA [facility] ORTH 3C [facility] 09/29/2020 8:30 AM [facility] Rad 09/29/2020 9:30 AM Darius Nuñez Jr., MD [facility] URO [facility] If you have questions or concerns: Sunday through Sunday, 8 AM - 5 PM, please call Mani Rowe MD, 's office at . If it is after 5 PM or on the weekend, please call and ask to speak with the Orthopedic resident on-call. documented in this encounter Medications at Time of Discharge Medication Sig Dispensed Refills Start Date End Date meclizine (ANTIVERT) 12.5 mg Tablet Take 12.5 mg by mouth 3 times daily as needed. traMADoL (Ultram) 50 mg Tablet Take 1 tablet by mouth every 6 hours as needed for Pain. 15 tablet 08/12/2020 08/17/2020 acetaminophen (Tylenol) 500 mg Tablet Take 1,000 mg by mouth every 6 hours as needed for Pain. 05/30/2024 traZODone (DESYREL) 50 mg Tablet nightly as needed. 0 02/08/2016 4 documented as of this encounter Progress Notes * Rebecca Corbett RN - 08/12/2020 10:56 AM EDT Pt is alert and oriented x4 sitting up in the w/c, pt has been assisted to the bathroom. Pt has no c/o pain, RLE NV status WNL with exception of pt c/o numbness due to pre-op nerve block. Jerome wrap isdry and intact. Discharge instructions and RX reviewed with pt and friend, verbalized understanding. Both are aware of getting RX at [facility]. 1104-- tall walker boot applied by Caleb León RN. Pt taken out to private car, crutches sent with pt. Assisted out by nursing staff * Berkley Logan RN - 08/11/2020 3:26 PM EDT During this call the patient was questioned regarding travel outside of [facility], fever, cough, SOB or other illness in the last 14 days. Patient also questioned regarding any exposure to aCOVID positive person, a person awaiting results from testing or a person in quarantine.Patient denies any positive responses to the above questions for themselves or their escort for the day of procedure. Patient informed of procedure to be followed upon arrival to the [facility]. That being, COVID questions will be asked again, temperature will be taken, patient and caregiver/corrugated fastener driver will be given a mask to wear the entire time they are in the [facility] building. * Daysi Lizarraga RN - 08/05/2020 2:49 PM EDT During this call the patient was questioned regarding travel outside of [facility], fever, cough, SOB or other illness in the last 14 days. Patient also questioned regarding any exposure to aCOVID positive person, a person awaiting results from testing or a person in quarantine.Patient denies any positive responses to the above questions for themselves or their escort for the day of procedure. Patient informed of procedure to be followed upon arrival to the [facility]. That being, COVID questions will be asked again, temperature will be taken, patient and caregiver/corrugated fastener driver will be given a mask to wear the entire time they are in the [facility] building. documented in this encounter H&P Notes * Mani Rowe MD - 08/12/2020 8:45 AM EDT 24-HOUR UPDATE Vianney Cordero's history and physical exam have been reviewed and completed. There has beenno interval change from that of the pre-operative history and physical exam done within the last 30days. CV: RRR, no RMG Pulm: LCTAB Noé Almanza MD 08/12/20 8:45 AM I spoke with and examined the patient on the date of the primary author's note, prior to proceedingto the operating room. I agree with the primary author's assessment and plan. I reviewed the risks,benefits, alternatives to, and recovery from the proposed procedure. I confirmed the correct operative site. The patient expressed understanding of the operative plan and wished to proceed with operative treatment. Mani Rowe MD MS Orthopaedic Surgery Attending documented in this encounter Miscellaneous Notes * Op Note - Mani Rowe MD - 08/12/2020 10:09 AM EDT [facility] Operative Note Patient Name: Vianney Cordero : [id number] MR#: [id number] Case Date: 08/12/2020 Surgeon: Surgeon(s) and Role: * Mani Rowe MD - Primary * Noé Almanza MD - Resident Preoperative diagnosis: Right peroneal tendon tear Postoperative diagnosis: Peroneus brevis flattening/tendinosis, low lying muscle belly Procedure(s) (LRB): PERONEUS BREVIS TENDON DEBRIDEMENT/TUBULARIZATION(WRVU 7.35) (Right) Anesthesia: MAC Estimated Blood Loss: 5 CC Specimens removed during surgery: None Drains: * No LDAs found * Surgical Closure: Primary Closure - skin incision is completely closed without any wires, danya, drains or other devices Disposition: awakened from anesthesia, extubated and taken to the recovery room in a stable condition, having suffered no apparent untoward event. Condition: doing well without problems (Please see the Surgical Encounter Summary for any Implant and Specimen details pertinent to this patient.) HPI/Surgical Indications: The patient is a 44-year-old female with signs, symptoms, and MRI findings consistent with peroneal tendinitis/tearing of her peroneus brevis of the right ankle. After thorough discussion of the risks and benefits, she elected to proceed with operative intervention. Procedure Description: After being identified, marked, and having preoperative consent confirmed inthe preoperative holding area, the patient proceeded to the operative theater. A preoperative timeout was held and the patient received preoperative antibiotics. General anesthesia was induced. She was placed in the left lateral decubitus position with all bony prominences well-padded. A high rightthigh tourniquet was placed. Her right leg was prepped and draped in a sterile fashion. Her leg waselevated, exsanguinated, the tourniquet inflated to a 50 mmHg where it stayed for less than half anhour. We began with a curvilinear incision based over peroneal tendons, centered over the tip of her fibula. We dissected down to the peroneus longus and brevis which were visible at the inferior margin ofthe distal fibula. We identified the superior peroneal retinaculum and incised it for later repair.We examined each tendon. The peroneus longus had tenosynovitis surrounding it which was debrided. There was no significant flattening and there is no tearing of the peroneus longus. We examined the peroneus brevis. There was no formal tearing, but the tendon was significantly flattened. There was alow-lying muscle belly. We debrided the low-lying muscle belly. We debrided tenosynovitis from the peroneus brevis tendon. We then tubularized the tendon after debriding a free edge. We did this witha 3-0 PDS suture. Afterwards the tendon sat in the retro-malleoli are groove well. We sure that we were examining the tendons throughout their entire length visible in the wound. We copiously irrigated the wound. We repaired the superior peroneal retinaculum with 0 Vicryls. We closed the deep dermal tissue with Vicryls and the skin with a running nylon suture. A dry sterile dressing and a walker boot were placed. The patient's anesthesia was reversed and she was discharged the PACU in stable condition. Infection Bundle used? N/A Attestation: Case Date: 08/12/2020 I was present and I participated during the entire procedure (does not need to include opening and closing). MANI ROWE MD 08/12/2020 documented in this encounter Plan of Treatment Upcoming Encounters Date Type Department Care Team (Late st Contact Info) Description 12/31/2024 10:00 AM EST Office [place] [address] Mercy Amanda MD [facility] [address] 04/01/2025 2:00 PM EDT Office [place] [address] Erum Szymanski MD [facility] [place] [address] documented as of this encounter Procedures Procedure Name Priority Date/Time Associated Diagnosis Comments Repair Peroneal Tendons (66072) 08/12/2020 8:53 AM EDT Right peroneal tendon tear PERONEAL TENDON REPAIR Routine 08/12/2020 7:25 AM EDT documented in this encounter Visit Diagnoses Not on filedocumented in this encounter Administered Medications Inactive Administered Medications - up to 3 most recent administrations Medication Order MAR Action Action Date Dose Rate Site acetaminophen (Tylenol) tablet 1,000 mg 1,000 mg, Oral, ONCE, 1 dose, On Brittny 08/12/20 at 0830, Maximum dose of acetaminophen is 4000 mg from all sources in 24 hours. When ordered for pain, acetaminophen should be given even when other ordered pain medications are indicated. , Day of Surgery (Day of Procedure), Routine Given 08/12/2020 8:11 AM EDT 1,000 mg lactated ringers infusion 1,000 mL, at 100 mL/hr, Intravenous, CONTINUOUS, Starting on Brittny 08/12/20 at 0745, Until Brittny 08/12/20 at 1104, Day of Surgery (Day of Procedure) New Bag 08/12/2020 8:04 AM EDT 1,000 mLs 100 mL/hr documented in this encounter Active and Recently Administered Medications Times are shown in EDT. Scheduled Medication Order 08/10/2020 08/11/2020 08/12/2020 acetaminophen (Tylenol) tablet 1,000 mg (COMPLETED) 1,000 mg, Oral, ONCE, 1 dose, On Brittny 08/12/20 at 0830, Maximum dose of acetaminophen is 4000 mg from all sources in 24 hours. When ordered for pain, acetaminophen should be given even when other ordered pain medications are indicated. , Day of Surgery (Day of Procedure), Routine 08 (Given - Provid er: Yue Brito RN) ceFAZolin (Ancef) 2 g in dextrose 5% 100 mL infusion (COMPLETED) 2 g, Intravenous, EVERY 3 HOURS, 1 dose, First dose on Brittny 08/12/20 at 0745, Administer over 30 Minutes, Redose after 3 hours., Intra-Operative (Intra-Procedure), Indication for (Active or Suspected): Prophylaxis 09 (Given - Provid er: Cory Staples DO) Continuous Medication Order 08/10/2020 08/11/2020 08/12/2020 lactated ringers infusion (CANCELED) 1,000 mL, at 100 mL/hr, Intravenous, CONTINUOUS, Starting on Brittny 08/12/20 at 0745, Until Brittny 08/12/20 at 1104, Day of Surgery (Day of Procedure) 803 (New Bag - Prov ider: Yue Brito RN) PRN Medication Order 08/10/2020 08/11/2020 08/12/2020 acetaminophen (Tylenol) tablet 975 mg 975 mg, Oral, EVERY 6 HOURS PRN, Starting on Brittny 08/12/20 at 1005, Until Brittny 08/12/20 at 1306, Pain, Maximum dose of acetaminophen is 4000 mg from all sources in 24 hours. When ordered for pain, acetaminophen should be given even when other ordered pain medications are indicated. , Routine fentaNYL (PF) 50 mcg/mL injection (CANCELED) 50 mcg, Intravenous, EVERY 5 MIN PRN, Starting on Brittny 10 at 0806, Until Brittny 08/12/20 at 1104, Pain, or prior to injection of local anesthetic., Hold for respiratory rate less than 8 breaths per minute. (maximum dose 200 mcg), Day of Surgery (Day of Procedure), Routine 816 (Given - Provid er: Yue Brito RN)08 (Given - Provider: Yue Brito RN) midazolam (PF) (VERSED) injection 1 mg (CANCELED) 1 mg, Intravenous, EVERY 5 MIN PRN, Starting on Brittny 10/20 at 0806, Until Brittny 20 at 1104, Sleep, or prior to injection of local anesthetic, Hold for delirium/agitation. (Maximum dose 5 mg)., Day of Surgery (Day of Procedure), Routine 816 (Given - Provid er: Yue Brito RN)08 (Given - Provider: Yue Brito RN) traMADoL (Ultram) tablet 50 mg 50 mg, Oral, EVERY 6 HOURS PRN, Starting on Brittny 10/8/20 at 1004, Until Brittny 108/20 at 1306, Pain, Routine documented in this encounter Care Teams Beehive Kiln Supervisor Relationship Specialty Start Date End Date Sonido Cordoba PA [address] [place] [address] PCP - General Family Medicine 07/06/20 documented as of this encounter
--- OUTSIDE RECORDS SUMMARY | 2024-10-16 17:40 | XMS_ITS | Encounter Summary ---
[place] [address] Care Team Providers Care Boot And Shoe Laborer Name Role Phone Sonido Cordoba Primary Care Provider +1- [phone] Encounter Details Date Type Department Care Team (Late st Contact Info) Description 09/15/2020 Telephone [place] [address] Adriana Stoll RN Social History Tobacco Use Types Packs/Day [...] encounter Miscellaneous Notes * Telephone Encounter - Adriana Stoll - 09/16/2020 8:38 AM ESTSummary: Return call Return call placed to [facility] Communicated Dr. Jefferson's orders as follows: please begin passive ROM if she is sitting in plantar flexion. ??Only restrictions are to inversion/eversion. * Telephone Encounter - Adriana Stoll - 09/15/2020 4:12 PM ESTSummary: Call 08/12/2020 (Li( Right peroneal brevis tendon debridement/tubularization CAMPOS Bourne, [facility] PT calls in today with concerns about patient being in 40 degree flexion in the walking boot. States she saw the patient today for a start of care. Is inquiring about aggressive treatment and in particular passive range of motion in dorsiflexion. documented in this encounter Plan of Treatment Upcoming Encounters Date Type Department Care Team (Late st Contact Info) Description 12/31/2024 10:00 AM EST Office [place] [address] Mercy Amanda MD [facility] DR [facility] [place] [address] 04/01/2025 2:00 PM EDT Office [place] [address] Erum Szymanski MD [facility] [place] [address] documented as of this encounter Visit Diagnoses Not on filedocumented in this encounter Care Teams Boot And Shoe Laborer Relationship Specialty Start Date End Date Sonido Cordoba PA [address] [place] [address] PCP - General Family Medicine 07/06/20 documented as of this encounter
--- OUTSIDE RECORDS SUMMARY | 2024-10-16 17:40 | XMS_ITS | Encounter Summary ---
Author Organization Formerly [facility] [place] [address] Care Team Providers Care Flare Breaker Name Role Phone Sonido Cordoba Primary Care Provider [phone] Reason for Visit * Reason Onset Date Comments Appointment 01/09/2020 Encounter Details Date Type Department Care Team (Late st Contact Info) Description 01/09/2020 [place]phone [place] [id number] Lizbeth Guzman APRN [facility] [place] [address] Appointment Social History Tobacco Use Types Packs/Day [...] encounter Miscellaneous Notes * Telephone Encounter - Amanda Walker - 01/09/2020 3:23 PM EST Scheduled * Telephone Encounter - Sofie Olivo - 01/09/2020 2:29 PM EST Images from the original note were not included. Per Danna Guzman's message below, LM #1 to call to schedule in either Dr. Martinez's or Dr. 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 [facility] ?? 01/09/20 10:11 AM Ok to see Li or Juan to discuss surgical options for a split thickness tear of the peroneous brevis failure of conservative tx. DANNA Steiner documented in this encounter Plan of Treatment Upcoming Encounters Date Type Department Care Team (Late st Contact Info) Description 12/31/2024 10:00 AM EST Office [place] [address] Mercy Amanda MD [facility] [address] 04/01/2025 2:00 PM EDT Office [place] [address] Erum Szymanski MD [facility] [place] [address] documented as of this encounter Visit Diagnoses Not on filedocumented in this encounter Care Teams Flare Breaker Relationship Specialty Start Date End Date Sonido Cordoba PA [address] [place] [address] PCP - General Family Medicine 1/12/16 8/18/20 documented as of this encounter
--- OUTSIDE RECORDS SUMMARY | 2024-10-16 17:40 | XMS_ITS | Encounter Summary ---
Author Organization [facility] Address [facility] [place] [address] Care Team Providers Care Epic Willow Analyst Name Role Phone Unknown Primary Care Provider Unavailabl e Encounter Details Date Type Department Care Team (Late st Contact Info) Description 07/01/2020 Orders [place] [address] Devan Nuñez Jr., MD [facility] [place] [address] Nephrolithiasis Social History Tobacco Use Types Packs/Day Years [...] AM EST Office [place] [phone] Mercy Amanda MD [facility] [address] [facility] [address] 04/01/2025 2:00 PM EDT Office [place] [phone] Erum Szymanski MD [facility] [place] [address] documented as of this encounter Results * US Retroperitoneal Complete (12/22/2020 9:17 AM EST) Anatomical Region Laterality Modality Abdomen Ultrasound 12/22/2020 9:02 AM EST Impressions 12/22/2020 10:43 AM EST ?? Stable bilateral renal lengths. Stable mild bilateral renal cortical thinning. No collecting system dilation. No nephrolithiasis. Subcentimeter simple left lower pole renal cyst. Bladder collapsed without calculi. Thank you for letting us participate in the care of this patient. For questions regarding this report, please contact the number below. ?Aliya Nguyen, [employer]isher [employer] Electronically Signed Final Report ?? 12/22/2020 10:42 am Narrative 12/22/2020 10:43 AM EST Renal ? (Signed Final 12/22/2020 10:42 am) PATIENT INFO: ID #: ? [id number] ?: ??[birth year] (45 yrs)(F) Name: ? VIANNEY NEVES ?Visit Date: 12/22/2020 09:02 am ? GABRIELLE PERFORMED BY: Performed By: ? Marga Enciso RDMS Attending: ?Patrick RIVAS, Aliya Grimes Referred By: ?DVEAN NUÑEZ JR Location: ? [facility] SERVICE(S) PROVIDED: URETRO - Retroperitoneal Complete - [id number] ? [id number] INDICATIONS: stones COMPARISON: Ultrasound: 09/11/17. RIGHT KIDNEY: Size (cm) ?L: ??11.4 Cortical Thickness: ?Cortical thinning Cortical Echogenicity: ?? Normal Hydronephrosis: ?No sonographic evidence Comment: ?Increased echogenicity of the medulla LEFT KIDNEY: Size (cm) ?L: ??12.2 Cortical Thickness: ?Cortical thinning Cortical Echogenicity: ?? Normal Hydronephrosis: ?No sonographic evidence Comment: ?Increased echogenicity of the medulla. Cyst seen ? at inferior pole measurin.8 x 0.9 x 0.8 cm. URINARY BLADDER: Pre-void (cm) ? L: ??2.2 ? AP: ??3.8 ? TV: ??4.6 Vol (ml): ?20.1 Comment: ?not well distended Procedure Note Aliya Nguyen MD - 12/22/2020 Renal (Signed Final 12/22/2020 10:42 am) PATIENT INFO: ID #: [id number] : [birth year] (45 yrs)(F) Name: VIANNEY NEVES Visit Date: 12/22/2020 09:02 am GABRIELLE PERFORMED BY: Performed By: Marga Enciso RDMS Attending: Aliya Nguyen MD Referred By: DEVAN NUÑEZ JR Location: [facility] SERVICE(S) PROVIDED: URETRO - Retroperitoneal Complete - [id number] INDICATIONS: stones COMPARISON: Ultrasound: 09/11/17. RIGHT KIDNEY: Size (cm) L: 11.4 Cortical Thickness: Cortical thinning Cortical Echogenicity: Normal Hydronephrosis: No sonographic evidence Comment: Increased echogenicity of the medulla LEFT KIDNEY: Size (cm) L: 12.2 Cortical Thickness: Cortical thinning Cortical Echogenicity: Normal Hydronephrosis: No sonographic evidence Comment: Increased echogenicity of the medulla. Cyst seen at inferior pole measurin.8 x 0.9 x 0.8 cm. URINARY BLADDER: Pre-void (cm) L: 2.2 AP: 3.8 TV: 4.6 Vol (ml): 20.1 Comment: not well distended IMPRESSION Stable bilateral renal lengths. Stable mild bilateral renal cortical thinning. No collecting system dilation. No nephrolithiasis. Subcentimeter simple left lower pole renal cyst. Bladder collapsed without calculi. Thank you for letting us participate in the care of this patient. For questions regarding this report, please contact the number below. Aliya Nguyen, Finisher [employer] Electronically Signed Final Report 12/22/2020 10:42 am Devan Nuñez Jr., MD [facility] GEN ORDERAB LES documented in this encounter Visit Diagnoses Diagnosis Nephrolithiasis Calculus of kidney Nephrolithiasis Calculus of kidney documented in this encounter Care Teams Epic Willow Analyst Relationship Specialty Start Date End Date Unknown None PCP - General 06/23/20 07/05/20 documented as of this encounter
--- OUTSIDE RECORDS SUMMARY | 2024-10-16 17:40 | XMS_ITS | Encounter Summary ---
[place] [address] Care Team Providers Care Supervisor Poultry Processing Name Role Phone Sonido Cordoba Primary Care Provider +1- [phone] Reason for Visit * Auth/Cert Specialty Diagnoses / Procedures Referred By Aric madrigal Referred To Contact Diagnoses Right peroneal tendon tear Procedures PRO REPAIR PERONEAL TENDONS PERONEAL TENDON REPAIR (WRVU 7.35) Referral ID Status Reason Start Date Expiration Date Visits Re quested Visits Authorized [id number] 1 1 Encounter Details Date Type Department Care Team (Late st Contact Info) Description 08/12/2020 8:54 AM EDT Anesthesia Event [facility] [place] [address] Cory Staples DO [facility] [place] [address] Anesthesia Record Procedure Summary Procedure Name Responsible Anesthesiologist Anesthesia Start Time Anesthesia Stop Time PERONEAL TENDON REPAIR (WRVU 7.35) (Right: Leg Lower) Cory Staples DO 08/12/20 0854 08/12/20 1004 Events Date Time Event Comment 08/12/2020 0835 0854 AN Verify 0854 Start 0854 An Start Data 0859 An Induction 0901 An Intubation 0901 Anesthesia Ready 0919 An Tourn Inflated 0950 An Tourn Deflated 0950 An Tourn Inflated 0952 Extubation/LMA Out 0954 an stop data 1004 Recovery or ICU Handoff Radha ent care was transferred to the destination unit staff after review of the patient's medical history, current anesthetic/surgical status and plan, according to the Provider Handoff Checklist. 1004 Stop Meds Name Total BUpivacaine 0.5% 2 mL fentaNYL 100 mcg IV Lidocaine 50 mg Propofol 200 mg ePHEDrine 20 mg Ondansetron 6 mg Dexamethasone 4 mg ceFAZolin (Ancef) 2 g in dextrose 5% 100 mL infusion 2 g Propofol INF 174.65 mg Lactated Ringers 1,000 mL * Agents Name O2 Air N2O Sevoflurane (et) * Blood No blood administrations on file. Lines, Drains, and Airways Type Details Placement Removal Incision 04/05/15; abdomen; laparoscopic punctures (specify) (6); 07/03/22 (LDA cleanup utility RA#[id number]); 1715 (LDA cleanup utility RA#[id number]) 04/05/15 0000 by Daisha Art RN 07/03/22 1715 by Kimber Santiago Incision 06/01/15; flank; 07/03/22 (LDA cleanup utility RA#[id number]); 1715 (LDA cleanup utility RA#[id number]) 06/01/15 0000 by Kirill Viramontes RN 07/03/22 1715 by Kimber Santiago (RETIRED) Peripheral IV Line - Single Lumen 03/30/20; 1005; median cubital vein (antecubital fossa), right; evew-wqt-fglgrx catheter system; 22 gauge, 1 in length; 08/10/21 (LDA Cleanup utility RA#[id number]); 1650 (LDA Cleanup utility RA#2611) 03/30/20 1005 by Brandi Wheatley 08/10/21 1650 by Erik Mccoy (RETIRED) Peripheral IV Line - Single Lumen 08/12/20; 0803; cephalic vein (lateral side of arm), left; jihu-qwr-ivxknj catheter system; 20 gauge, 1 in length; Kirsten Brito RN; distraction, intradermal injection; 0; no longer indicated, catheter/device intact; 08/12/20; 1037 08/12/20 0803 by Yue rBito RN 08/12/20 1037 by Rebecca Corbett RN Supraglottic LMA Type: iGel; LMA Size: 3; Inserted by: RT; Removal Date: 08/12/20; Removal Time: 95308/12/20 0901 by Guanaco Camacho MD 08/12/20 0954 by Guanaco Camacho MD Incision 08/12/20; 0920; ankl e; 07/03/22 (LDA cleanup utility RA#[id number]); 1715 (LDA cleanup utility RA#2746) 08/12/20 0920 by Duarte Garcia RN 07/03/22 171 by Kimber Santiago documented in this encounter Social History Tobacco [...] OR Notes * Anesthesia Postprocedure Evaluation - Guanaco Camacho - 08/12/2020 10:04 AM EDT Department of Anesthesiology Post-procedure Note Patient: Vianney Cordero Procedure Summary Date: 08/12/20 Room / Location: [address] [facility] Anesthesia Start: 853 Anesthesia Stop: 100 Procedure: PERONEAL TENDON REPAIR (WRVU 7.35) (Right Leg Lower) Diagnosis: (Right peroneal tendon tear) Surgeon: Mani Jefferson MD Responsible Provider: Cory Staples DO Anesthesia Type: MAC ASA Status: 3 All Anesthesia Providers: Anesthesiologist: Cory Staples DO Sonar Technician: Guanaco Camacho MD Vitals Value Taken Time BP Temp Pulse Resp SpO2 Pain [facility] Level of Consciousness: Awake and Alert Pain Management: Satisfactory Analgesia PONV: None Cardiovascular Status: At Baseline Respiratory Status: At Baseline Postoperative Fluid Status: Intravascular EUvolemia Possible Anesthetic Complications: NONE apparent at time of evaluation Final Primary Anesthesia Type: General (The anesthetic type performed was the same as planned.) Comments: * Anesthesia Procedure Notes - Cory Staples DO - 08/12/2020 8:35 AM EDT Associated Order(s): Anesthesia Block Anesthesia Block Date/Time: 08/12/2020 8:22 AM Performed by: Cory Staples DO Authorized by: Cory Staples DO Start Time: 08/12/2020 8:19 AM End Time: 08/12/2020 8:24 AM [facility] Preop The patient was greeted; the risks and benefits of the procedure were reviewed. Indication: Post-op Pain Control Post-op pain management at the request of surgeon. Block Type: Sciatic Laterality: Right Position: Left lateral decubitus Prep: Chlorhexidine and mask, cap, sterile gloves, hand hygeine Skin Anesthetic: Lidocaine 1% dose: 5 [id number]-esjpl 21 10 cm Ultrasound Guided: YES and in-plane. Ultrasound Image(s) were saved. Ultrasound guidance was used to identify the targeted neuronal structure. Ultrasound was also used to identify needle position and to identify tissue (bone, muscle, and blood vessels) to prevent inadvertent intraneural or intravascular needle placement and injection. The spread of local anesthetic was confirmed with live ultrasound imaging. BUpivacaine 0.5%, 2 mL no complications Attending Physician:: Cory Staples DO Pt mildly sedated. Sonoanatomy described- poor visulaization of bifurcation, skin localized, easy block. VSS Pt calm. No events. Nice hydrodissection with excellent prox spread. * Anesthesia Preprocedure Evaluation - Cory Staples DO - 08/12/2020 7:56 AM EDT Pre-Anesthesia Evaluation for: Vianney Cordero a 44 y.o. female. Procedure(s): Right peroneal tendon repair Patient Active Problem List Diagnosis ??? Peroneal tendon tear, right, subsequent encounter ??? Left ankle pain ??? Hx of tonsillectomy ??? History of dilation and curettage ??? History of Tyesha fundoplication 06/2015 ??? Pain in left shoulder ??? Right knee pain ??? Obesity ??? Ulnar neuropathy at elbow of right upper extremity Per OSH records. Thought to be from lateral epicondylitis. ??? Hiatal hernia ??? Dyspepsia ??? Elbow pain, right Past Medical History: Diagnosis Date ??? PTSD (post-traumatic stress disorder) Past Surgical History: Procedure Laterality Date ??? DILATION AND CURETTAGE OF UTERUS 1994 ??? PRO COLONOSCOPY, BIOPSY N/A 08/21/2018 COLONOSCOPY FLEXIBLE, WITH BX (WRVU 3.66) performed by Erum Szymanski MD at [facility] ENDOSCOPY ??? PRO COLONOSCOPY, BIOPSY N/A 09/04/2019 COLONOSCOPY FLEXIBLE, WITH BX (WRVU 3.66) performed by Steve Ji MD at [facility] ENDOSCOPY ??? PRO COLONOSCOPY, DIAGNOSTIC N/A 09/04/2019 COLONOSCOPY, DIAGNOSTIC performed by Steve Ji MD at [facility] ENDOSCOPY ??? PRO COLONOSCOPY, REMV LESN, SNARE N/A 08/21/2018 COLONOSCOPY, POLYPECTOMY, REMOVAL LESION BY SNARE (WRVU 4.67) performed by Erum Szymanski MD at [facility] ENDOSCOPY ? ? PRO CYSTO W URETEROSCOPY &/OR PYELOSCOPY, DX Right 06/01/2015 CYSTOURETEROSCOPY, DIAGNOSTIC performed by Darius Nuñez Jr., MD at [facility] OR ??? PRO CYSTOSCOPY, INSERT URETERAL STENT Right 06/01/2015 CYSTO, STENT PLACEMENT performed by Darius Nuñez Jr., MD at [facility] MAIN OR ??? PRO LAP, ESOPHAGOGAST FUNDOPLASTY N/A 04/05/2015 LAPAROSCOPIC TYESHA FUNDOPLASTY performed by Valentín Moura MD at [facility] OR ??? PRO PERCUT DILATN RENAL TRACT Right 06/01/2015 PERCUTANEOUS INTRO GUIDE WIRE TO ACCESS RENAL PELVIS,AND OR URETER, W\DILATION performed by Darius Nuñez Jr., MD at [facility] OR ??? PRO PERCUT REMV KID STONE, UP TO 2 CM Right 06/01/2015 NEPHROLITHOTOMY, (PCNL) PERCUTANEOUS performed by Darius Nuñez Jr., MD at [facility] MAIN OR ??? PRO UPPER GI ENDOSCOPY, BIOPSY N/A 01/27/2015 EGD WITH BIOPSY performed by Brandt Barlow MD at [facility] ENDOSCOPY ??? PRO UPPER GI ENDOSCOPY, BIOPSY N/A 02/28/2016 EGD WITH BIOPSY performed by Brandt Barlow MD at [facility] ENDOSCOPY ??? PRO UPPER GI ENDOSCOPY, BIOPSY N/A 09/04/2016 EGD WITH BIOPSY performed by Brandt Barlow MD at [facility] ENDOSCOPY ??? PRO UPPER GI ENDOSCOPY, BIOPSY N/A 09/24/2017 EGD WITH BIOPSY (WRVU 2.49) performed by Brandt Barlow MD at [facility] ENDOSCOPY ??? PRO UPPER GI ENDOSCOPY, BIOPSY N/A 08/21/2018 EGD WITH BIOPSY (WRVU 2.49) performed by Erum Szymanski MD at [facility] ENDOSCOPY ??? PRO UPPER GI ENDOSCOPY, BIOPSY N/A 09/04/2019 UPPER GASTROINTESTINAL ENDOSCOPY,WITH BIOPSY SINGLE OR MULTIPLE (WRVU 2.49) performed by Steve Ji MD at [facility] ENDOSCOPY ??? PRO UPPER GI ENDOSCOPY, DIAGNOSTIC N/A 09/04/2019 EGD, UPPER GI ENDOSCOPY performed by Steve Ji MD at [facility] ENDOSCOPY ??? TONSILLECTOMY Social History Tobacco Use ??? Smoking status: Former Smoker Packs/day: 0.50 Years: 6.00 Pack years: 3.00 Types: Cigarettes Quit date: 01/25/1997 Years since quittin.5 ??? Smokeless tobacco: Never Used Substance Use Topics ??? Alcohol use: Not Currently Comment: 1X/quarter Social History Substance and Sexual Activity Drug Use No Allergies Allergen Reactions ??? Ibuprofen Interacts with protonix PCP said she shouldn't take it ??? Oxycodone Nausea And Vomiting Medications: MAR and/or home medications have been reviewed. Physical Exam: No data found. There is no height or weight on file to calculate BMI. Airway Assessment: Mallampati: II TM distance: >3 FB Neck ROM: full Cardiovascular Assessment: cardiovascular exam normal Pulmonary Assessment: pulmonary exam normal Dental Assessment: Misc Assessment: IV access: Peripheral line Anesthesia Plan: ASA 3 MAC, with a(n) intravenous induction 43 for right peroneal tendon repair Mix's Hiatal Hernia s/p tyesha PTSD Prior vásquez 2 Gr 2 Denies recent CP SOB URI or GERD NPO > 4 mets ASA3 Plan: GA LMA Popliteal nerve block Region - Other Informed Consent: Anesthetic plan and risks discussed with patient. Plan discussed with MAGISTRATE ASSISTANT. PAT Clinic Note * Anesthesia Preprocedure Evaluation - Guanaco Camacho - 08/11/2020 4:50 PM EDT Pre-Anesthesia Evaluation for: Vianney Cordero a 44 y.o. female. Procedure(s): PERONEAL TENDON REPAIR (WRVU 7.35) Patient Active Problem List Diagnosis ??? Peroneal tendon tear, right, subsequent encounter ??? Left ankle pain ??? Hx of tonsillectomy ??? History of dilation and curettage ??? History of Tyesha fundoplication 06/2015 ??? Pain in left shoulder ??? Right knee pain ??? Obesity ??? Ulnar neuropathy at elbow of right upper extremity Per OSH records. Thought to be from lateral epicondylitis. ??? Hiatal hernia ??? Dyspepsia ??? Elbow pain, right Past Medical History: Diagnosis Date ??? PTSD (post-traumatic stress disorder) Past Surgical History: Procedure Laterality Date ??? DILATION AND CURETTAGE OF UTERUS 1994 ??? PRO COLONOSCOPY, BIOPSY N/A 08/21/2018 COLONOSCOPY FLEXIBLE, WITH BX (WRVU 3.66) performed by Erum Szymanski MD at [facility] ENDOSCOPY ??? PRO COLONOSCOPY, BIOPSY N/A 09/04/2019 COLONOSCOPY FLEXIBLE, WITH BX (WRVU 3.66) performed by Steve Ji MD at [facility] ENDOSCOPY ??? PRO COLONOSCOPY, DIAGNOSTIC N/A 09/04/2019 COLONOSCOPY, DIAGNOSTIC performed by Steve Ji MD at [facility] ENDOSCOPY ??? PRO COLONOSCOPY, REMV LESN, SNARE N/A 08/21/2018 COLONOSCOPY, POLYPECTOMY, REMOVAL LESION BY SNARE (WRVU 4.67) performed by Erum Szymanski MD at [facility] ENDOSCOPY ? ? PRO CYSTO W URETEROSCOPY &/OR PYELOSCOPY, DX Right 06/01/2015 CYSTOURETEROSCOPY, DIAGNOSTIC performed by Darius Nuñez Jr., MD at [facility] OR ??? PRO CYSTOSCOPY, INSERT URETERAL STENT Right 06/01/2015 CYSTO, STENT PLACEMENT performed by Darius Nuñez Jr., MD at [facility] OR ??? PRO LAP, ESOPHAGOGAST FUNDOPLASTY N/A 04/05/2015 LAPAROSCOPIC TYESHA FUNDOPLASTY performed by Valentín Moura MD at [facility] OR ??? PRO PERCUT DILATN RENAL TRACT Right 06/01/2015 PERCUTANEOUS INTRO GUIDE WIRE TO ACCESS RENAL PELVIS,AND OR URETER, W\DILATION performed by Dairus Nuñez Jr., MD at [facility] OR ??? PRO PERCUT REMV KID STONE, UP TO 2 CM Right 06/01/2015 NEPHROLITHOTOMY, (PCNL) PERCUTANEOUS performed by Darius Nuñez Jr., MD at [facility] OR ??? PRO UPPER GI ENDOSCOPY, BIOPSY N/A 01/27/2015 EGD WITH BIOPSY performed by Brandt Barlow MD at [facility] ENDOSCOPY ??? PRO UPPER GI ENDOSCOPY, BIOPSY N/A 02/28/2016 EGD WITH BIOPSY performed by Brandt Barlow MD at [facility] ENDOSCOPY ??? PRO UPPER GI ENDOSCOPY, BIOPSY N/A 09/04/2016 EGD WITH BIOPSY performed by Brandt Barlow MD at [facility] END[facility]COPY ??? PRO UPPER GI ENDOSCOPY, BIOPSY N/A 09/24/2017 EGD WITH BIOPSY (WRVU 2.49) performed by Brandt Barlow MD at [facility] ENDOSCOPY ??? PRO UPPER GI ENDOSCOPY, BIOPSY N/A 08/21/2018 EGD WITH BIOPSY (WRVU 2.49) performed by Erum Szymanski MD at [facility] ENDOSCOPY ??? PRO UPPER GI ENDOSCOPY, BIOPSY N/A 09/04/2019 UPPER GASTROINTESTINAL ENDOSCOPY,WITH BIOPSY SINGLE OR MULTIPLE (WRVU 2.49) performed by Steve Ji MD at [facility] ENDOSCOPY ??? PRO UPPER GI ENDOSCOPY, DIAGNOSTIC N/A 09/04/2019 EGD, UPPER GI ENDOSCOPY performed by Steve Ji MD at [facility] END[facility]COPY ??? TONSILLECTOMY Social History Tobacco Use ??? Smoking status: Former Smoker Packs/day: 0.50 Years: 6.00 Pack years: 3.00 Types: Cigarettes Quit date: 01/25/1997 Years since quittin.5 ??? Smokeless tobacco: Never Used Substance Use Topics ??? Alcohol use: Yes Comment: 1X/quarter Social History Substance and Sexual Activity Drug Use No Allergies Allergen Reactions ??? Ibuprofen Interacts with protonix PCP said she shouldn't take it ??? Oxycodone Nausea And Vomiting Medications: MAR and/or home medications have been reviewed. Physical Exam: No data found. There is no height or weight on file to calculate BMI. Anesthesia Physical Exam Anesthesia Plan: ASA 3 44 yo f will undergo peroneal tendon repair of R lower leg. Mhx of dyspepsia, hiatal hernia (s/p tyesha 2014), mix's esophagus, past H pylori infection. EGD/colonoscopy 6 months ago without issues. No heart or lung problems per chart review. Will plan on GA with LMA. Guanaco Camacho PhD, MD. Anesthesiology CA2 Informed Consent: PAT Clinic Note documented in this encounter Plan of Treatment Upcoming Encounters Date Type Department Care Team (Late st Contact Info) Description 12/31/2024 10:00 AM EST Office [place] [address] Mercy Amanda MD [facility] [address] [facility] [address] 04/01/2025 2:00 PM EDT Office [place] [phone] Erum Szymanski MD [facility] [place] [address] documented as of this encounter Procedures Procedure Name Priority Date/Time Associated Diagnosis Comments ANESTHESIA BLOCK Routine 08/12/2020 8:35 AM EDT documented in this encounter Results * Anesthesia Block (08/12/2020 8:35 AM EDT) Narrative Cory Staples DO - 08/12/2020 8:35 AM EDT Cory Staples, DO ? 08/12/2020 ??8:39 AM Anesthesia Block Date/Time: 08/12/2020 8:22 AM Performed by: Cory Staples DO Authorized by: Cory Staples DO Start Time: ??08/12/2020 8:19 AM End Time: ??08/12/2020 8:24 AM [facility] Preop The patient was greeted; the risks and benefits of the procedure were reviewed. ?? Indication: ??Post-op Pain Control Post-op pain management at the request of surgeon. ?? Block Type: ??Sciatic Laterality: ??Right Position: ??Left lateral decubitus Prep: ??Chlorhexidine and mask, cap, sterile gloves, hand hygeine Skin Anesthetic: ??Lidocaine 1% dose: ??5 G-cwvtw-kmsgi 21 10 cm Ultrasound Guided: ??YES and in-plane. ??Ultrasound Image(s) were saved. Ultrasound guidance was used to identify the targeted neuronal structure. Ultrasound was also used to identify needle position and to identify tissue (bone, muscle, and blood vessels) to prevent inadvertent intraneural or intravascular needle placement and injection. The spread of local anesthetic was confirmed with live ultrasound imaging. ?? BUpivacaine 0.5%, 2 mL no complications ?? Attending Physician:: ??Cory Staples DO Pt mildly sedated. Sonoanatomy described- poor visulaization of bifurcation, skin localized, easy block. VSS Pt calm. No events. Nice hydrodissection with excellent prox spread. Cory Staples DO [employer]EL[employer] documented in this encounter Visit Diagnoses Not on filedocumented in this encounter Administered Medications Inactive Administered Medications - up to 3 most recent administrations Medication Order MAR Action Action Date Dose Rate Site BUpivacaine (PF) (Marcaine) 0.5 % (5 mg/mL) injection Starting on Brittny 08/12/20 at 0822, Until Brittny 08/12/20 at 0822, Anesthesia Intra-op, Routine Given 08/12/2020 8:22 AM EDT 2 mLs ceFAZolin (Ancef) 2 g in dextrose 5% 100 mL infusion 2 g, Intravenous, EVERY 3 HOURS, 1 dose, First dose on Brittny 08/12/20 at 0745, Administer over 30 Minutes, Redose after 3 hours., Intra-Operative (Intra-Procedure), Indication for (Active or Suspected): Prophylaxis Given 08/12/2020 9:07 AM EDT 2 g dexamethasone (Decadron) injection PRN, Starting on Brittny 08/12/20 at 0914, Until Brittny 08/12/20 at 1004, Anesthesia Intra-op, Routine Given 08/12/2020 9:14 AM EDT 4 mg ePHEDrine 5 mg/mL multi-dose injection PRN, Starting on Brittny 08/12/20 at 0921, Until Brittny 08/12/20 at 1004, Anesthesia Intra-op, Routine Given 08/12/2020 9:32 AM EDT 10 mg Given 08/12/2020 9:21 AM EDT 10 mg fentaNYL 50 mcg/mL multi-dose injection PRN, Starting on Brittny 08/12/20 at 0858, Until Brittny 08/12/20 at 1004, Anesthesia Intra-op, Routine Given 08/12/2020 8:58 AM EDT 100 mcg lactated ringers infusion CONTINUOUS PRN, Starting on Brittny 08/12/20 at 0854, Until Brittny 08/12/20 at 1004, Anesthesia Intra-op New Bag 08/12/2020 8:54 AM EDT lidocaine (PF) (XYLOCAINE) 100 mg/5 mL (2 %) injection PRN, Starting on Brittny 08/12/20 at 0859, Until Brittny 08/12/20 at 1004, Anesthesia Intra-op, Routine Given 08/12/2020 8:59 AM EDT 50 mg ondansetron (ZOFRAN) injection PRN, Starting on Brittny 08/12/20 at 0920, Until Brittny 08/12/20 at 1004, Anesthesia Intra-op, Routine Given 08/12/2020 9:38 AM EDT 2 mg Given 08/12/2020 9:20 AM EDT 4 mg propofoL (Diprivan) 10 mg/mL bolus injection (Anesthesia) PRN, Starting on Brittny 08/12/20 at 0859, Until Brittny 08/12/20 at 1004, Anesthesia Intra-op Given 08/12/2020 8:59 AM EDT 200 mg propofoL (Diprivan) infusion CONTINUOUS PRN, Starting on Brittny 08/12/20 at 0901, Until Brittny 08/12/20 at 1004, Anesthesia Intra-op, Routine New Bag 08/12/2020 9:01 AM EDT 50 mcg/kg/min 29.9 mL/hr documented in this encounter Care Teams Supervisor Poultry Processing Relationship Specialty Start Date End Date Sonido Cordoba PA [address] [place] [address] PCP - General Family Medicine 07/06/20 documented as of this encounter
--- OUTSIDE RECORDS SUMMARY | 2024-10-16 17:40 | XMS_ITS | Encounter Summary ---
Author Organization [facility] [place] [address] Care Team Providers Care Fly Finisher Name Role Phone Sonido Cordoba Primary Care Provider +1- [phone] Encounter Details Date Type Department Care Team (Late st Contact Info) Description 02/18/2021 Orders Only [place] [phone] Chinyere Galindo APRN [facility] [place] [address] Social History Tobacco Use Types Packs/Day Years [...] AM EST Office [place] [phone] Mercy Amanda MD [facility] [address] 04/01/2025 2:00 PM EDT Office [place] [address] Erum Szymanski MD [facility] [address] documented as of this encounter Procedures Procedure Name Priority Date/Time Associated Diagnosis Comments HEPATITIS B SURFACE ANTIBODY Routine 02/18/2021 8:47 AM EDT documented in this encounter Results * Hepatitis B Surface Antibody (02/18/2021 8:47 AM EDT) Hepatitis B Surface Antibody, Quantitative 546.8 IU/L [facility] Comment: HepB Surface Ab Quant: Unvaccinated: < 8.5 IU/L Vaccinated: > 11.5 IU/L Hepatitis B Surface Antibody Positive [facility] Comment: Patient is considered to be immune to HBV infection. Expected Results: Vaccinated: Positive Unvaccinated: Negative Blood specimen (specimen) Venous Draw / Unknown 02/18/2021 8:47 AM EDT 02/18/2021 9:02 AM EDT Narrative Resulting Agency Comment Spec In Lab Chinyere Galindo APRN CHEMISTRY ORDERABLES [facility] [place] [place] [address] documented in this encounter Visit Diagnoses Not on filedocumented in this encounter Care Teams Fly Finisher Relationship Specialty Start Date End Date Sonido Cordoba PA [address] [place] [address] PCP - General Family Medicine 07/06/20 documented as of this encounter
--- OUTSIDE RECORDS SUMMARY | 2024-10-16 17:40 | XMS_ITS | Encounter Summary ---
Author Organization [facility] [place] [address] Care Team Providers Care Truck Repair Service Estimator Name Role Phone Sonido Cordoba Primary Care Provider +1- [phone] Reason for Visit * Diagnostic Test (Routine) - Closed Specialty Diagnoses / Procedures Referred By Aric madrigal Referred To Contact Radiology Diagnoses Peroneal tendinitis, right Procedures MRI Ankle wo Contrast Right MRI Foot wo Contrast Right Lizbeth Guzman MANAGER PUBLISHING [facility] ORTHOPAED[facility] [place] [address] [place] [address] Referral ID Status Reason Start Date Expiration Date V isits Requested Visits Authorized [id number] Closed Specialty Service Requested 1 1 Encounter Details Date Type Department Care Team (Latest Contact Info) Description 09/29/2019 3:02 PM EST - 09/29/2019 11:59 PM [facility] [place] [address] Lizbeth Guzman [facility] ORTHOP[facility] [place] [address] Discharge Disposition: Home Social History Tobacco Use [...] nightly. 08/12/2020 documented as of this encounter Plan of Treatment Upcoming Encounters Date Type Department Care Team (Late st Contact Info) Description 12/31/2024 10:00 AM EST Office [place] [address] Mercy Amanda MD [facility] [address] [facility] [place] [address] 04/01/2025 2:00 PM EDT Office Visit Gastroenterology at [facility] [place] [address] Erum Szymanski MD [facility] [place] [address] documented as of this encounter Procedures Procedure [...] the number below. ? Electronically signed by: Tammy Krishnamurthy [facility] ([phone]), at 09/30/2019 8:46 AM Narrative 09/30/2019 8:46 [...] number below. Electronically signed by: Tammy Krishnamurthy [facility]([phone]), at 09/30/2019 8:46 AM Lizbeth Guzman APRN IMG MRI ORDERABLES documented in this encounter Visit Diagnoses Not on filedocumented in this encounter Care Teams Truck Repair Service Estimator Relationship Specialty Start Date End Date Sonido Cordoba PA [address] [place] [address] PCP - General Family Medicine 11/16/15 06/22/20 documented as of this encounter
--- OUTSIDE RECORDS SUMMARY | 2024-10-16 17:40 | XMS_ITS | Encounter Summary ---
[place] [address] Care Team Providers Care Orchestra Conductor Name Role Phone Sonido Cordoba Primary Care Provider +1- [phone] Encounter Details Date Type Department Care Team (Late st Contact Info) Description 08/25/2020 [place] [address] Awais Harris Social History Tobacco Use Types Packs/Day Years [...] encounter Miscellaneous Notes * Telephone Encounter - Awais Harris - 08/25/2020 4:37 PM EDT Patient calls in today to inquire about missing part from her tall walking boot. Patient had peroneal tendon repair completed on 08/12/2020. Upon discharge, she is supplied a tall walking boot but when she returned home, she did.have the hand pump for the boot in her possession. A number of calls were made throughout the hospital in an attempt to acquire said hand pump, but I was unable to secure the appropriate device. Physical therapist from our inpatient unit is going to attempt to locate 1 and have it delivered toour department in order for it to be mailed to the patient. documented in this encounter Plan of Treatment Upcoming Encounters Date Type Department Care Team (Late st Contact Info) Description 12/31/2024 10:00 AM EST [place] [address] Mercy Amanda MD [facility] [address] 04/01/2025 2:00 PM EDT Office [place] [address] Erum Szymanski MD [facility] [place] [address] documented as of this encounter Visit Diagnoses Not on filedocumented in this encounter Care Teams Orchestra Conductor Relationship Specialty Start Date End Date Sonido Corodba PA [address] [place] [address] PCP - General Family Medicine 07/06/20 documented as of this encounter
--- OUTSIDE RECORDS SUMMARY | 2024-10-16 17:40 | XMS_ITS | Encounter Summary ---
[place] [address] Care Team Providers Care Pneumatic Press Hand Name Role Phone Sonido Cordoba Primary Care Provider +1- [phone] Encounter Details Date Type Department Care Team (Late st Contact Info) Description 02/16/2020 Telephone [place] [address] Sabiha Vincent Social History Tobacco Use Types Packs/Day Years [...] encounter Miscellaneous Notes * Telephone Encounter - Sabiha Vincent - 02/16/2020 11:53 AM EDT Left vm and sent letter to convert 5-4 apt to phone or tele documented in this encounter Plan of Treatment Upcoming Encounters Date Type Department Care Team (Late st Contact Info) Description 12/31/2024 10:00 AM EST Office [place] [address] Mercy Amanda MD [facility] [address] [facility] [place] [address] 04/01/2025 2:00 PM EDT Office [place] [address] Erum Szymanski MD [facility] [place] [address] documented as of this encounter Visit Diagnoses Not on filedocumented in this encounter Care Teams Pneumatic Press Hand Relationship Specialty Start Date End Date Sonido Cordoba PA [address] [place] [address] PCP - General Family Medicine 11/16/15 06/22/20 documented as of this encounter
--- OUTSIDE RECORDS SUMMARY | 2024-10-16 17:40 | XMS_ITS | Encounter Summary ---
Author Organization [facility] [place] [address] Care Team Providers Care Audit Officer Name Role Phone Sonido Cordoba Primary Care Provider +1- [phone] Reason for Visit * Reason Comments Follow-up right foot/ankle guilherme n Encounter Details Date Type Department Care Team (Late st Contact Info) Description 05/04/2020 8:20 AM EDT Office [place] [address] Lizbeth Guzman APRN [facility] [place] [address] Peroneal tendon tear, right, subsequent encounter Social [...] Sign Reading Time Taken Comments Blood Pressure 135/71 05/04/2020 8:35 AM EDT Pulse 70 05/04/2020 8:35 AM EDT Temperature - - Respiratory Rate - - Oxygen Saturation - - Inhaled Oxygen Concentration - - Weight 111.1 kg (245 lb) 05/04/2020 8:35 AM EDT verbal Height 160 cm (5' 3) 05/04/2020 8:35 AM EDT arleth bal Body Mass Index 43.4 05/04/2020 8:35 AM EDT documented in this encounter Progress Notes * Lizbeth Guzman, EDUCATION TRAINER - 05/04/2020 8:20 AM EDT PATIENT NAME: Vianney Cordero AGE: 44 y.o. MR#: [id number] DATE OF VISIT: 05/04/2020 DATE OF INJURY/ONSET: Chronic STAFF: Dr. Jefferson CHIEF COMPLAINT: right lateral ankle pain HISTORY OF PRESENT ILLNESS Ms. Mao Cordero a 44 y.o. year old female comes into clinic today for who is here in follow up. Elvis lateral ankle pain and swelling persists. No subluxation reported. We did obtain an MRI scan that reveals a split thickness tear of the peroneal brevis. She has tried multiple modalities including oral NSAID's, custom orthotics, several sessions of PT at [facility], and cast immobilization (Fx boot). The pain persists. 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 She is frustrated about her lack of progress and here to discuss TX options further. We did have a surgical consult set up in January/February yet cancelled due to the C - pandemic. No other health related issues to report today. Patient's medications, allergies, past medical, surgical, social and family histories were reviewedand updated as appropriate. ROS: Denies fever, chills, nausea, vomiting, vision change, shortness of breath, chest pain, visionchanges, headaches, bowel or bladder problem, ear, nose, sinus problem, neuro or psychiatric, or endocrine disorder not addressed above. Questionnaire Responses: myD-H Hip & Knee 05/04/2020 MODEMS Expectation - VR12 - Physical Component Summary - VR12 - Mental Component Summary - PROMIS-10 General Health Good PROMIS-10 Quality of Life Good PROMIS-10 Physical Health Good PROMIS-10 Mental Health Good PROMIS-10 Social Activity and Relationship Satisfaction Good PROMIS-10 Social Roles at Home and Work Fair PROMIS-10 Everyday Physical Activities Mostly PROMIS-10 Anxious or Depressed last 7 days Never PROMIS-10 Fatigue last 7 days Mild PROMIS-10 Pain last 7 days 8 PROMIS PHYSICAL HEALTH SCORE (range 16-68) 42.3 PROMIS MENTAL HEALTH SCORE (range 21-68) 48.3 PHYSICAL EXAM: Vitals: 05/04/20 0835 BP: 135/71 BP Location (NBP): Left arm Patient Position: Sitting BP Cuff Sizes: Large Adult (32-43 cm) Pulse: 70 Weight: 111.1 kg (245 lb) Height: 160 cm (5' 3) Body mass index is 43.4 kg/m??. Ms. Mao Cordero a 44 y.o. is alert and oriented. She appears in no acute discomfort and is resting comfortably in a chair in the exam room. Inspection: Mild swelling lateral ankle peroneals. No step off deformity. Palpation: ++ TTP along the course of the peroneal brevis ROM: Dorsiflexion: 20 degrees Plantarflexion: 30 degrees Inversion: Equal and symmetric to the bilateral side Eversion: Equal and symmetric to the bilateral side No gross instability with a/p drawer or inversion stress Strength: 5/5 in all planes of motion. Peroneals 5/5. EHL/FHL 5/5. Neurovascular: Foot is sensate and well perfused, DP and PT 2+ to palpation. Sensation intact to 1st webspace, medial and lateral sole and dorsum. RADIOLOGICAL STUDIES: Right ankle MRI scan reviewed image by image in the office today + longitudinal split thickness tear of the peroneal brevis. ASSESSMENT: 44 year old Female with persistent right lateral ankle pain and swelling with longitudinal split thickness tear of the peroneal brevis. PLAN: I spent approximately 15 minutes of this 20 minute appointment discussing Ms. Mao Cordero's radiologic findings and physical exam findings. Treatment options and risks/benefits discussed from least to most invasive. Patient understands options. At this time, Amarjit feels that she has failednon-op TX options (see above). She would like to consider surgical options including right peronealbrevis tenodesis versus repair. Surgical procedure reviewed with handouts given. Risks and benefitsof surgery reviewed. The patient indicates understanding of these issues and agrees with the plan. She would like to proceed with surgery. Post op expectations reviewed. Notation sent to Dr. Jefferson for surgical booking orders. PRE-HAB exercises reviewed. She will investigate post op kneeling scooters.Pt agrees, questions solicited/answered, will return as scheduled and as needed for concerns or questions. Pt understands they may also call us prn for above. documented in this encounter Plan of Treatment Upcoming Encounters Date Type Department Care Team (Late st Contact Info) Description 12/31/2024 10:00 AM EST Office [place] [address] Mercy Amanda MD [facility] [address] 04/01/2025 2:00 PM EDT Office [place] [address] Erum Szymanski MD [facility] [address] documented as of this encounter Visit Diagnoses Diagnosis Peroneal tendon tear, right, subsequent encounter documented in this encounter Care Teams Audit Officer Relationship Specialty Start Date End Date Sonido Cordoba PA [address] [place] [address] PCP - General Family Medicine 11/16/15 06/22/20 documented as of this encounter
--- OUTSIDE RECORDS SUMMARY | 2024-10-16 17:40 | XMS_ITS | Encounter Summary ---
Author Organization [place] [address] Care Team Providers Care Care Team Assistant Name Role Phone Sonido Cordoba Primary Care Provider +1- [phone] Encounter Details Date Type Department Care Team (Latest Contact Info) Description 12/22/2020 10:00 AM EST [place] [id number] Devan Nuñez Jr., MD [facility] [place] [address] Nephrolithiasis (Primary Dx) Social History Tobacco Use Types [...] Sign Reading Time Taken Comments Blood Pressure 142/86 12/22/2020 9:54 AM EST Pulse 63 12/22/2020 9:54 AM EST Temperature - - Respiratory Rate - - Oxygen Saturation - - Inhaled Oxygen Concentration - - Weight - - Height - - Body Mass Index - - documented in this encounter Progress Notes * Guanako Kaiser - 12/22/2020 10:00 AM EST HPI: Vianney Cordero is a pleasant 45 year old woman who presents for urologic evaluation regarding mixed CaOx/CaPhos nephrolithiasis. She had previously been seen by urology for stones, most recently 09/11/2017. ?? She underwent right PCNL on 06/01/15. Intraoperative findings were notable for a large right renal pelvic stone. Postop imaging confirmed she had been rendered stone free. Stone analysis revealed mixed CaPhos/Caox. Given calcium phosphate component, we had recommended 24h urine and metabolic evaluation, although she opted not to proceed with metabolic testing. She had noted that she had previouslyingested large amounts of TUMS due to her hiatal hernia, which may have contributed to her stone formation. She is no longer using TUMS. ?? In the greater than 3 years since her last visit of 09/11/2017, she has been well. ?? She specifically denies witnessed stone passage but reports that a few months ago she had 1 episodeof 1 day of left lower back pain /10 . Pain did not radiate. Did not change with movement. No hematuria fever chills or new LUTS. No witnessed stone passage. It fully resolved within that day and did not recur. She feels well today ?? REVIEW OF SYSTEMS 12/22/2020 Constitutional None of the above Ear / nose / throat / mouth None of the above Eyes None of the above Respiratory None of the above Cardiovascular None of the above Gastrointestinal None of the above Skin, hair None of the above Musculoskeletal None of the above Neurological None of the above Hematologic / Lymphatic None of the above Genitourinary None of the above ?? PMHx: nephrolithiasis PSHx: D&C; tonsillectomy; right SWL; paraesophageal hernia repair; right PCNL, foot surgery FamHx: cousin with family h/o urolithiasis SocHx: no tobacco; no EtOH ?? Fluid: stopped drinking all soda about 1 year ago. Now drinks 1.5 to 2 L of water per day. No otherfluids Physical Exam Constitutional: She is oriented to person, place, and time. She appears well- developed and well-nourished. No distress. HENT: Head: Normocephalic. Cardiovascular: Normal rate. Pulmonary/Chest: Effort normal. No respiratory distress. Neurological: She is alert and oriented to person, place, and time. Skin: Skin is warm and dry. She is not diaphoretic. Psychiatric: She has a normal mood and affect. Her behavior is normal. Vitals reviewed. ?? Stone Analysis: 50% Calcium phosphate (apatite); 20% Calcium oxalate monohydrate; 20% Calcium oxalate dihydrate; 10% Calcium carbonate ?? Imaging studies: We independently reviewed the renal ultrasound from today. This reveals no evidence of hydronephrosis, hydroureter, or stones. There appears to be overall stable increased echogenicity of the medulla bilaterally, without any discrete stones noted. IMPRESSION Stable bilateral renal lengths. Stable mild bilateral renal cortical thinning. No collecting system dilation. No nephrolithiasis. Subcentimeter simple left lower pole renal cyst. Bladder collapsed without calculi. Impression/Plan: 1) History of mixed CaPhos/ CaOx stones. No evidence of interval stone recurrence on ultrasound from today- she reports 1 episode of possible renal colic/stone passage but is currently asymptomatic. We reviewed follow up options. She wishes to continue interval surveillance imaging every 2 years with renal Ultrasound. 2) history of self-limited episode of left low back pain of unclear etiology. We discussed this mayhave been related to stone passage, but in the absence of stones on imaging studies and absence of witnessed stone passage, this may have also been related to other GI, PRESCHOOL ASSISTANT, musculoskeletal, skeletal, or other etiologies. As it is fully resolved she will simply monitor. She will contact us as well as her PCP if similar pain should recur. STAFF ADDENDUM: I saw and examined Vianney Cordero with Dr. Kaiser , have independently reviewed her ultrasound, and concur with history, exam, impression, and plan as noted and amended. DEVAN NUÑEZ JR, MD * Devan Nuñez Jr., MD - 12/22/2020 10:00 AM EST I saw and examined Vianney Cordero with Dr. Kaiser and have independently reviewed her imaging studies. I agree with history, exam, impression, and plan as noted. Briefly, this pleasant 45-year-old woman presents for urologic evaluation regarding her history of stones. Imaging reveals no evidence of current stone disease. We reviewed management options including metabolic evaluation which she declines. She wishes to simply follow-up on a 2-year basis. documented in this encounter Plan of Treatment Upcoming Encounters Date Type Department Care Team (Late st Contact Info) Description 12/31/2024 10:00 AM EST Office [place] [address] Mercy Amanda MD [facility] [address] 04/01/2025 2:00 PM EDT Office [place] [address] Erum Szymanski MD [facility] [place] [address] documented as of this encounter Visit Diagnoses Diagnosis Nephrolithiasis- Primary Calculus of kidney documented in this encounter Care Teams Care Team Assistant Relationship Specialty Start Date End Date Sonido Cordoba PA [address] [place] [address] PCP - General Family Medicine 07/06/20 documented as of this encounter
--- OUTSIDE RECORDS SUMMARY | 2024-10-16 17:40 | XMS_ITS | Encounter Summary ---
Author Organization [facility] [place] [address] Care Team Providers Care Yam Curer Name Role Phone Sonido Cordoba Primary Care Provider +1- [phone] Encounter Details Date Type Department Care Team (Late st Contact Info) Description 12/12/2020 Orders [place] [phone] Erum Szymanski MD [facility] [place] [address] Gastroesophageal reflux disease with esophagitis, unspecified whether [...] AM EST Office [place] [address] Mercy Amanda MD [facility] [place] [address] 04/01/2025 2:00 PM EDT Office [place] [address] Erum Szymanski MD [facility] [place] [address] documented as of this encounter Visit Diagnoses Diagnosis Gastroesophageal reflux disease with esophagitis, unspecified whether hemorrhage documented in this encounter Care Teams Yam Curer Relationship Specialty Start Date End Date Sonido Cordoba PA [address] [place] [address] PCP - General Family Medicine 07/06/20 documented as of this encounter
--- OUTSIDE RECORDS SUMMARY | 2024-10-16 17:40 | XMS_ITS | Encounter Summary ---
[place] [address] Care Team Providers Care Script Manager Name Role Phone Sonido Cordoba Primary Care Provider +1- [phone] Reason for Visit * Reason Onset Date Comments Prior Authorization 03/18/2020 Encounter Details Date Type Department Care Team (Late st Contact Info) Description 03/18/2020 Telephone [place] [address] Kaia Cherry CCMA Prior Authorization Social History Tobacco Use Types Packs/Day Years [...] encounter Miscellaneous Notes * Telephone Encounter - Kaia Cherry CCMA - 03/18/2020 12:41 PM EDT Medication Prior Authorization 4L Gastroenterology / [place] [address] Subscriber Insurance: [place] Medicaid Phone: Fax: Physician: Eurm Szymanski NPI: Return Pharmacy: [facility] Phone: Fax: Medication Requested: Pantoprazole Strength: 20mg Frequency: Twice daily Disp.: 60 Refills: Currently taking: Diagnosis for this medication: Barretts, GERD ICD-10 code: Prior medications trialed in this patient: Pantoprazole 40mg once daily Medication: Outcome/Adverse Reactions: Decision: Approved Tracking number/Case number/Reference number:[id number] Effective date: Start:03/18/2020 End:03/18/2021 documented in this encounter Plan of Treatment Upcoming Encounters Date Type Department Care Team (Late st Contact Info) Description 12/31/2024 10:00 AM EST Office Visit [place] [address] Mercy Amanda MD [facility] [address] 04/01/2025 2:00 PM EDT Office Visit [place] [address] Erum Szymanski MD [facility] [place] [address] documented as of this encounter Visit Diagnoses Not on filedocumented in this encounter Care Teams Script Manager Relationship Specialty Start Date End Date Sonido Cordoba PA [address] [place] [address] PCP - General Family Medicine 11/16/15 06/22/20 documented as of this encounter
--- OUTSIDE RECORDS SUMMARY | 2024-10-16 17:40 | XMS_ITS | Encounter Summary ---
[place] [address] Care Team Providers Care Supervisor Net Making Name Role Phone Sonido Cordoba Primary Care Provider +1- [phone] Reason for Visit * Reason Onset Date Comments Medication Refill 08/17/2020 Encounter Details Date Type Department Care Team (Late st Contact Info) Description 08/17/2020 Refill [place] [address] Radha Nunes RN Social History Tobacco Use Types Packs/Day [...] encounter Miscellaneous Notes * Telephone Encounter - Radha Nunes RN - 08/17/2020 11:53 AM EDT Medication Refill Request Surgery/Injury/Provider: Dr. Jefferson, 08/12/20 right peroneal tendon tear Medication being requested: Tramadol 50mg Last refill or Original Rx: 08/12/2020 08/12/2020 1 08/12/2020 TRAMADOL HCL 50 MG TABLET 15.0 4 MA [facility] [id number] [facility] ([id number]) 0 Query: Must be completed today: yes Seen within 30 days (if no, than when): Follow Up: 08/25/2020 How is this medication being used currently: Tramadol 50mg BID one in am one at night (started this yesterday) Pain level: 10 when tylenol wears off, otherwise 6-7 Bowel concerns: none Other pain medications used and how: Tylenol 1000mg 3-4 times a day Medication Taper Plan: Tramadol BID wean to one tab at HS in a few days once pain subsides Teaching done regarding: taking nonnarcotic pain medications, taking the least amount of opioid needed for the least amount of time for adequate pain management and tapering of opioids with verbalized understanding by the patient. New Prescription written for: Tramadol 50mg Requested Prescription to be sent electronically to [facility] Prescription prepped and pended for Gracy Ellis review. The patient knows how to contact orthopaedics if any further questions or concerns occur. documented in this encounter Plan of Treatment Upcoming Encounters Date Type Department Care Team (Late st Contact Info) Description 12/31/2024 10:00 AM EST Office Visit [place] [address] Mercy Amanda MD [facility] [address] [facility] [place] [address] 04/01/2025 2:00 PM EDT Office Visit [place] [address] Erum Szymanski MD [facility] [place] [address] documented as of this encounter Visit Diagnoses Not on filedocumented in this encounter Care Teams Supervisor Net Making Relationship Specialty Start Date End Date Sonido Cordoba PA [address] [place] [address] PCP - General Family Medicine 07/06/20 documented as of this encounter
--- OUTSIDE RECORDS SUMMARY | 2024-10-16 17:40 | XMS_ITS | Encounter Summary ---
Author Organization Formerly [facility] [place] [address] Care Team Providers Care Customer Operations Manager Name Role Phone Sonido Cordoba Primary Care Provider +1- [phone] Encounter Details Date Type Department Care Team (Latest Contact Info) Description 01/03/2021 8:30 AM EST TH Visit (TeleHealth) [place] [id number] Gracy Ellis PA [facility] DR [place]OP[place] [address] Peroneal tendon tear, right, subsequent encounter Social [...] as of this encounter Progress Notes * Gracy Ellis PA - 01/03/2021 8:30 AM EST PATIENT NAME: Vianney Cordero AGE: 45 y.o. MR#: [id number] DATE OF VISIT: 01/03/2021 CHIEF COMPLAINT: 5 months post 08/12/2020 (Li) Right peroneal brevis tendon debridement/tubularization HISTORY OF PRESENT ILLNESS: Ms. Mao Cordero is a 45 y.o. female who comes into clinic today for evaluation of the right foot after the above. The PT was last in to see myself on 11/22/2020 . Since this visit she still has some swelling when she does a lot of walking. She notes after cleaning and going food shopping she has some swelling. She elevates and ices. She takes tylenol PRN. She has been discharged from PT last week. Her range of motion has improved. She still notes a stretching when inverting. 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 She is wearing sneakers which feels ok. Assessment and plan:: 45 y.o. year-old female now roughly 5 months out post 08/12/2020 (Li) Right peroneal brevis tendon debridement/tubularization. We had a long discussion regarding the nature of her healing. We discussed that swelling of the foot can be seen up to a year post surgical date. She should note that this will gradually decrease as she increasing her time with her foot dependent. 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 She is free to return to work at this point. I will have her FU on a PRN basis. This plan was discussed with the patient and they are in agreement. All of the patient's questions were answered. The patient understand to contact us if they have any other questions or concerns. FU: PRN Gracy Ellis PA-C The above dictation was made with voice recogonition software documented in this encounter Plan of Treatment Upcoming Encounters Date Type Department Care Team (Late st Contact Info) Description 12/31/2024 10:00 AM EST Office [place] [address] Mercy Amanda MD [facility] DR [facility] [address] 04/01/2025 2:00 PM EDT Office Visit [place] [phone] Erum Szymanski MD [facility] [place] [address] documented as of this encounter Visit Diagnoses Diagnosis Peroneal tendon tear, right, subsequent encounter documented in this encounter Care Teams Customer Operations Manager Relationship Specialty Start Date End Date Sonido Cordoba PA [address] [place] [address] PCP - General Family Medicine 07/06/20 documented as of this encounter
--- OUTSIDE RECORDS SUMMARY | 2024-10-16 17:40 | XMS_ITS | Encounter Summary ---
Author Organization [facility] [place] [address] Care Team Providers Care Concrete Float Maker Name Role Phone Sonido Cordoba Primary Care Provider +1- [phone] Reason for Visit * Reason Comments Follow-up NXR // 08-12-20 right peroneal tendon repair // DOI 08/2019 Encounter Details Date Type Department Care Team (Late st Contact Info) Description 11/22/2020 2:00 PM EST Office [place] [address] Gracy Ellis PA [facility] [place] [address] Peroneal tendon tear, right, subsequent encounter Social [...] Sign Reading Time Taken Comments Blood Pressure 137/86 11/22/2020 1:49 PM EST Pulse 85 11/22/2020 1:49 PM EST Temperature - - Respiratory Rate - - Oxygen Saturation - - Inhaled Oxygen Concentration - - Weight 94.3 kg (208 lb) 11/22/2020 1:49 PM EST Height 162.6 cm (5' 4) 11/22/2020 1:49 PM EST Body Mass Index 35.7 11/22/2020 1:49 PM EST documented in this encounter Progress Notes * Gracy Ellis PA - 11/22/2020 2:00 PM EST PATIENT NAME: Vianney Cordero AGE: 45 y.o. MR#: [id number] DATE OF VISIT: 11/22/2020 CHIEF COMPLAINT: 14 weeks post 08/12/2020 (Li) Right peroneal brevis tendon debridement/tubularization HISTORY OF PRESENT ILLNESS: Ms. Mao Cordero is a 45 y.o. female who comes into clinic today for evaluation of the right foot after the above. The PT was last in to see myself on 09/24/2020 . Since this visit she has been doing alright. She does not feel that she is getting anywhere with physical therapy. She reports that she was just starting to come out of the boot occasionally 2 weeks ago at the 12-week hetal. Physical therapy has felt that she should not do this as she is not supposed to be inverting her ankle at all. She just started working with a bicycle two weeks ago. Her pain level is 9/10 after walking around the grocery store. When walking around the house the pain gets up to 6/10. She has not yet worked on scar massage. [facility] Past medical history: Patient Active Problem List Diagnosis Date Noted ??? Peroneal tendon tear, right, subsequent encounter [...] ??? Elbow pain, right 08/27/2013 Medications: ??? pantoprazole EC (Protonix) 40 mg Tablet, Delayed Release (E.C.) ??? traMADoL (Ultram) 50 mg Tablet ??? acetaminophen (Tylenol) 500 mg Tablet ??? meclizine (ANTIVERT) 12.5 mg Tablet ??? traZODone (DESYREL) 50 mg Tablet Allergies: Allergies Allergen Reactions ??? Ibuprofen Interacts with protonix PCP said she shouldn't take it ??? Oxycodone Nausea And Vomiting Social history: Social History Tobacco Use ??? Smoking status: Former Smoker Packs/day: 0.50 Years: 6.00 Pack years: 3.00 Types: Cigarettes Quit date: 01/25/1997 Years since quittin.8 ??? Smokeless tobacco: Never Used Substance Use Topics ??? Alcohol use: Not Currently Comment: 1X/quarter Review of systems: No chest pain or shortness of breath No fevers, night sweats or chills Vital signs: Blood pressure 137/86, pulse 85, height 162.6 cm (5' 4), weight 94.3 kg (208 lb). Physical exam: Ms. Mao Cordero is a 45 y.o. female who is alert and oriented. She is in no acute discomfort and is resting incision is well-healed. Able to fully dorsiflex plantarflex. Does demonstrate the ability to invert 3 to 4 degrees or so with fasciculations. She does have some tenderness over the scar. PT/DP pulses 2+. Superficial peroneal, deep peroneal, sural, saphenous, and tibial nerves intact totouch. . Assessment and plan:: 45 y.o. year-old female now roughly 14 weeks out post 08/12/2020 ([facility] Right peroneal brevis tendon debridement/tubularization. We had a long discussion regarding the nature of Vianney Cordero's progress. We compared herphysical therapy protocol with where she has at this point. She is currently 14 weeks out and per the protocol she was able to start coming out of the boot at 10 weeks. The expectation was for her eleonora out of the boot by 12 weeks. Of course we do need to take into account what physical therapy is seeing in terms of her progress. At this point she does seem to be able to come out of the boot however would need to be on flat ground for very short periods. She is at this point according to physical therapy protocol supposed to be working on inversion range of motion. I will have her touch base in another 2 months or so with a telephone visit to see her progress. Weeks 0-2: ??? in walker boot vs. Splint, NWB ??? education on proper crutch/walker use ??? AROM of hip and knee ??? Rest and Elevation Weeks 2-6: ??? 1st post-op visit at [facility] at 2 weeks post-op ??? AROM of ankle and toes: AVOID VARUS/INVERSION STRETCH ??? remove boot 2x/day to do above exercises at home ??? Scar massage ??? Begin transition to WBAT, starting with 2 crutches in Walker Boot. May advance away from the crutches as tolerated. . ??? Weeks 6-10: ??? may come out of boot in physiotherapy ??? AROM at ankle avoiding varus/inversion stretch (refer to exercise sheet given by therapist in [facility] clinic) ??? core exercise-recruit transversus abdominus / SLR ??? hip AROM/strength: - glut max - clam shell - abduction ??? joint mobilizations ??? elevate to control swelling ??? scar massage ??? increase ADL???s in standing ??? begin cycling on stationary bike Weeks 10-14: Start weaning boot - practice standing, weight shift, and small periods of walking - gradually increasing time and distance in order to be completely out of the boot by 12 wks ??? may start inversion ROM exercises ??? scar massage ??? heat ??? joint mobilizations ??? stationary bicycle ??? may start swimming if safe to get in/out of pool (flutter kick only) ??? gait training in a shoe ??? low level balance and proprioceptive exercises ??? progressive strengthening of hip, knee and ankle ??? continue core strengthening Weeks 14-16: begin unilateral stance exercises ??? bilateral heel raises progressing to unilateral heel raises ??? higher level balance/proprioceptive exercises ??? will require some form of support (ie. ankle brace) x 4 months This plan was discussed with the patient and they are in agreement. All of the patient's questions were answered. The patient understand to contact us if they have any other questions or concerns. FU: 6 weeks phone visit. NO XR Gracy Ellis PA-C The above dictation was made with voice recogonition software documented in this encounter Plan of Treatment Upcoming Encounters Date Type Department Care Team (Late st Contact Info) Description 12/31/2024 10:00 AM EST Office [place] [address] Mercy Amanda MD [facility] [address] [place] [address] 04/01/2025 2:00 PM EDT Office [place] [address] Erum Szymanski MD [facility] [place] [address] documented as of this encounter Visit Diagnoses Diagnosis Peroneal tendon tear, right, subsequent encounter documented in this encounter Care Teams Concrete Float Maker Relationship Specialty Start Date End Date Sonido Cordoba PA [address] [place] [address] PCP - General Family Medicine 07/06/20 documented as of this encounter
--- OUTSIDE RECORDS SUMMARY | 2024-10-16 17:40 | XMS_ITS | Encounter Summary ---
[place] [address] Care Team Providers Care Slag Expander Name Role Phone Sonido Cordoba Primary Care Provider +1- [phone] Encounter Details Date Type Department Care Team (Late st Contact Info) Description 04/22/2021 Telephone [place] [address] Gaurang Damon Social History Tobacco Use Types Packs/Day Years [...] encounter Miscellaneous Notes * Telephone Encounter - Gaurang Damon - 04/22/2021 2:09 PM EDT GRIFFIN CLINICAL SAFETY CHECKLIST 04/22/2021 Gaurang Vargheseell [address] [facility] [address] [id number] : 1975 REFERRING PROVIDER: Erum Szymanski PRIMARY CARE PROVIDER: WANDY Aguilera PRIMARY SYMPTOM (PROCEDURE INDICATION): heartburn SAFETY QUESTIONS PACEMAKER/DEFIBRILLATOR? No NEUROSTIMULATOR? No ESOPHAGEAL VARICES? No SENSITIVITY OR ALLERGY TO NICKEL? No BLOOD THINNERS SUCH PLAVIX, COUMADIN, PRADAXA, ELIQUIS, XARELTO, PLAVIX? No IF YES TO ANY OF THE ABOVE PRE-PROCEDURE QUESTIONS, please inform the patient that the test cannot be scheduled due to safety concerns about testing, and the patient should speak with their provider to consider alternative testing. The imaging scheduler should also contact the provider's office directly tonotify them that we are unable to schedule due to a contraindication to testing. Then, delete the remainder of this checklist and close out the referral. 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 No Diabetic patients should speak with their PCP or managing provider at least two weeks before the test to ask what medication or insulin adjustments are needed for testing. If the patient feels ill while fasting due to diabetes, it is OK to have a little apple juice - just enough to feel better. Patients fast 8 hours before testing and the test lasts 1 hour. DOES THE PATIENT USE A WHEELCHAIR? No VERBAL PATIENT INSTRUCTIONS FOR on-PPI STUDY The written instructions are very important for the patient to review and contain specific dietary and medication instructions prior to testing. These instructions will give the patient the most accurate test result. The patient should speak with their referring provider or our office if they have any questions. APPOINTMENT NOTES TEMPLATE EGD Moya on PPI, symptom: heartburn, RMD: Erum Szymanski, PCP: WANDY Aguilera (At exit, the RMD for appointment notes is the GI provider who saw the patient) EGD PATIENT SAFETY QUESTIONS ENDO Booked by: PNT PRIOR EGD?: Yes PROBLEMS DURING PRIOR EGD?: No PLAVIX, COUMADIN, PRADAXA? No PACEMAKER/DEFIBRILLATOR? : No DIABETIC? No ALLERGIC TO LATEX, EGGS, OR MEDS? Yes IRON SUPPLEMENTS: No THREE OR MORE ABDOMINAL SURGERIES? No ANY PAST PROBLEMS WITH SEDATION OR ANESTHESIA? No DAILY SUPPLEMENTAL O2 OR CPAP? No DOES PT TAKE RX PAIN MEDS? No HT: 5'4 WT: 199 AGE: 45 y.o. DOES PT KNOW HE/SHE MUST HAVE A SPECIALTY DEPARTMENT SUPERVISOR FOR AFTER PROCEDURE: Yes documented in this encounter Plan of Treatment Upcoming Encounters Date Type Department Care Team (Late st Contact Info) Description 12/31/2024 10:00 AM EST Office Visit [place] [phone] Mercy Amanda MD [facility] DR [facility] [address] 04/01/2025 2:00 PM EDT Office Visit G[place] [address] Erum Szymanski MD [facility] [place] [address] documented as of this encounter Visit Diagnoses Not on filedocumented in this encounter Care Teams Slag Expander Relationship Specialty Start Date End Date Sonido Cordoba PA [address] [place] [address] PCP - General Family Medicine 07/06/20 documented as of this encounter
--- OUTSIDE RECORDS SUMMARY | 2024-10-16 17:40 | XMS_ITS | Encounter Summary ---
[place] [address] Care Team Providers Care Trim Operator Name Role Phone Sonido Cordoba Primary Care Provider +1- [phone] Encounter Details Date Type Department Care Team (Late st Contact Info) Description 04/21/2021 Telephone [place] [address] Gaurang Damon Social History Tobacco [...] * Telephone Encounter - Gaurang Damon - 04/21/2021 3:25 PM EDT Inbound/Outbound: Outbound Spoke to Patient/Left Message: Left message Notes: Outbound call to patient to schedule motility lab testing from referral. Left message askingfor callback to schedule. Return calls can be handled by: Motility Lab Information Security Director documented in this encounter Plan of Treatment Upcoming Encounters Date Type Department Care Team (Late st Contact Info) Description 12/31/2024 10:00 AM EST Office [place] [address] Mercy Amanda MD [facility] [address] [place] [address] 04/01/2025 2:00 PM EDT Office [place] [phone] Erum Szymanski MD [facility] [place] [address] documented as of this encounter Visit Diagnoses Not on filedocumented in this encounter Care Teams Trim Operator Relationship Specialty Start Date End Date Sonido Cordoba PA [address] [place] [address] PCP - General Family Medicine 07/06/20 documented as of this encounter
--- OUTSIDE RECORDS SUMMARY | 2024-10-16 17:40 | XMS_ITS | Encounter Summary ---
Author Organization [facility] [place] [address] Care Team Providers Care Motor Expert Name Role Phone Sonido Cordoba Primary Care Provider +1- [phone] Encounter Details Date Type Department Care Team (Latest Contact Info) Description 05/24/2021 11:41 AM EDT - 05/24/2021 2:24 PM EDT Hospital Encounter [place] [address] Kathy Carnes MD [facility] [place] [address] Discharge Disposition: Home Social History Tobacco Use [...] Sign Reading Time Taken Comments Blood Pressure 129/67 05/24/2021 2:00 PM EDT Pulse 72 05/24/2021 12:17 PM EDT Temperature 36.9 ??C (98.4 ??F) 05/24/2021 12:17 PM E DT Respiratory Rate 18 05/24/2021 2:00 PM EDT Oxygen Saturation 99% 05/24/2021 2:00 PM EDT Inhaled Oxygen Concentration - - [...] the day after the procedure, use an ikpl-tbx-uihaoxu spray to numb your throat. Sucking on [...] occurs, please contact your Doctor. Please call [phone] before 8pm Mon-Fri with problems, questions or concerns. If you call after 8pm or on weekends, call the Hospital at [phone] and ask to speak to the Wood Drill Operator fashion director party plan sales and the binding machine operator will contact that person for you. When should you call for help? Call 128 anytime you think you may need emergency [...] any problems. Where can you learn more? [facility] View your After Visit Summary and more online at [email or web address] If you would like to provide feedback [...] cost to you. Content Version: 12.2 ?? [id number] [employer]. Care instructions adapted under license by [facility]. If you have questions about a medical condition or this instruction, always ask your healthcare professional. [employer] disclaims any warranty or liability for your [...] anesthesia Kathy Carnes MD Gastroenterology attending Pager [phone] documented in this encounter Plan of Treatment Upcoming Encounters Date Type Department Care Team (Late st Contact Info) Description 12/31/2024 10:00 AM EST Office [place] [address] Mercy Amanda MD [facility] DR [facility] [address] 04/01/2025 2:00 PM EDT Office Visit [place] [phone] Erum Szymanski MD [facility] [place] [address] documented as of this encounter Procedures Procedure Name Priority Date/Time Associated Diagnosis Comments SURGICAL PATHOLOGY REPORT Routine 05/24/2021 1:26 PM EDT SPECIMEN TO PATHOLOGY Routine 05/24/2021 1:26 PM EDT SPECIMEN TO PATHOLOGY Routine 05/24/2021 1:26 PM EDT SPECIMEN TO PATHOLOGY Routine 05/24/2021 1:26 PM EDT SPECIMEN TO PATHOLOGY Routine 05/24/2021 1:26 PM EDT Upper Gi Endoscopy, Biopsy ([id number]) 05/24/2021 1:07 PM EDT MOYA pH study ON BID PPI with an upper endoscopy for refractory reflux, history of TYESHA, evaluate wrap as well - NEEDS MAC (anesthesia) UPPER GI ENDOSCOPY Routine 05/24/2021 12 :40 PM EDT documented in this encounter Results * Surgical Pathology Report (05/24/2021 1:26 PM EDT) Final Diagnosis [id number] ? Location: 4T; EA06; A The signing [...] MD Verified: ??05/30/2021 11:28 ??Pathologist Performed at: ??-[facility] Dept. of Pathology, [place], [place] SPECIMEN(S) SUBMITTED A - esophagus at [...] labeled D1. ??MLL 05/30/2021 11:28 AM EDT [facility] GI Biopsy 05/24/2021 1:26 PM EDT 05/24/2021 1:26 PM EDT GI Biopsy 05/24/2021 1:26 PM EDT 05/24/2021 1:26 PM EDT GI Biopsy 05/24/2021 1:26 PM EDT 05/24/2021 1:26 PM EDT GI Biopsy 05/24/2021 1:26 PM EDT 05/24/2021 1:26 PM EDT Kathy Carnes MD PATHOLOGY/[place] [address] * Specimen to Pathology (05/24/2021 1:26 PM EDT) AP Specimen 05/24/2021 1:26 PM EDT 05/24/2021 1:26 PM EDT Narrative [facility] - 05/24/2021 1:26 PM EDT Specimen requisition ordered. ??Separate Pathology report to follow Kathy Carnes MD PATHOLOGY/[place] [address] * Specimen to Pathology (05/24/2021 1:26 PM EDT) AP Specimen 05/24/2021 1:26 PM EDT 05/24/2021 1:26 PM EDT Narrative [facility] - 05/24/2021 1:26 PM EDT Specimen requisition ordered. ??Separate Pathology report to follow Kathy Carnes MD PATHOLOGY/CYTOLOG Y ORDERABLES Performing Organization Address [facility] [place] [address] * Specimen to Pathology (05/24/2021 1:26 PM EDT) AP Specimen 05/24/2021 1:26 PM EDT 05/24/2021 1:26 PM EDT Narrative [facility] - 05/24/2021 1:26 PM EDT Specimen requisition ordered. ??Separate Pathology report to follow Kathy Carnes MD PATHOLOGY/CYTOLOG Y ORDERABLES Performing Organization Address [facility] [place] [address] * Specimen to Pathology (05/24/2021 1:26 PM EDT) AP Specimen 05/24/2021 1:26 PM EDT 05/24/2021 1:26 PM EDT Narrative [facility] - 05/24/2021 1:26 PM EDT Specimen requisition ordered. ??Separate Pathology report to follow Kathy Carnes MD PATHOLOGY/CYTOLOG Y ORDERABLES Performing Organization Address [facility] [place] [address] * UPPER GI ENDOSCOPY (05/24/2021 12:40 PM EDT) UPPER GI ENDOSCOPY [facility] Endoscopy ___ Procedure Date: 05/24/2021 12:40 PM ? Patient Name: Vianney Cordero ? Date of : 1975 ? Age: 45 ? Order #: [id number] ? Instrument Name: [id number] ? ___ Procedure: ? Upper GI endoscopy Indications: ? Follow-up of gastro-esophageal reflux ? disease and placement of MOYA, ? 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 Kathy Carnes MD, Fouzia ? Tyler Funez MD: ?WANDY Andrade Requesting Provider: Erum Szymanski [...] infusion 100 mL/hr, Intravenous, CONTINUOUS, Starting on Sun05/24/21 at 1230, Until Sun05/24/21 at 1410, Endoscopy (Day of Procedure) Restarted 05/24/2021 1:26 PM EDT New Bag 05/24/2021 12:34 PM EDT 100 mL/hr 100 mL/hr documented in this encounter Active and Recently Administered Medications Times are shown in EDT. Continuous Medication Order 05/22/2021 05/23/2021 05/24/2021 lactated ringers infusion (CANCELED) 100 mL/hr, Intravenous, CONTINUOUS, Starting on Sun05/24/21 at 1230, Until Sun05/24/21 at 1410, Endoscopy (Day of Procedure) 1234 (New Bag - Prov ider: Lilia Moreno RN)1325 (Paused - Provider: Nichelle Guzman CRNA - Comment: Switch to gravity)1326 (Restarted - Provider: Nichelle Guzman CRNA)1335 (Stopped - Provider: Fernandez Luciano MD) documented in this encounter Care Teams Motor Expert Relationship Specialty Start Date End Date Sonido Cordoba PA [address] [place] [address] PCP - General Family Medicine 07/06/20 documented as of this encounter
--- OUTSIDE RECORDS SUMMARY | 2024-10-16 17:40 | XMS_ITS | Encounter Summary ---
[place] [address] Care Team Providers Care Corner Bead Operator Name Role Phone Sonido Cordoba Primary Care Provider +1- [phone] Reason for Visit * Reason Onset Date Comments Medication Refill 08/12/2020 Encounter Details Date Type Department Care Team (Late st Contact Info) Description 08/12/2020 Refill [place] [address] Erum Szymanski MD [facility] [place] [address] Gastroesophageal reflux disease with esophagitis Social History Tobacco Use Types Packs/Day Years [...] AM EST Office [place] [address] Mercy Amanda MD [facility] [address] [place] [address] 04/01/2025 2:00 PM EDT Office [place] [address] Erum Szymanski MD [facility] [place] [address] documented as of this encounter Visit Diagnoses Diagnosis Gastroesophageal reflux disease with esophagitis documented in this encounter Care Teams Corner Bead Operator Relationship Specialty Start Date End Date Sonido Cordoba PA [address] [place] [address] PCP - General Family Medicine 07/06/20 documented as of this encounter
--- OUTSIDE RECORDS SUMMARY | 2024-10-16 17:40 | XMS_ITS | Encounter Summary ---
Author Organization [facility] [place] [address] Care Team Providers Care Lunchroom Mother Name Role Phone Sonido Cordoba Primary Care Provider +1- [phone] Encounter Details Date Type Department Care Team (Late st Contact Info) Description 05/24/2021 1:08 PM EDT Anesthesia Event [place] [address] Fernandez Luciano MD [facility] [place] [address] Nichelle Botello CRNA [facility] [place] [address] Anesthesia Record Procedure Summary Procedure Name Responsible Anesthesiologist Anesthesia Start Time Anesthesia Stop Time EGD WITH BIOPSY (WRVU 2.39) (Trunk) Fernandez Luciano MD 05/24/21 1308 05/24/21 1335 Events Date Time Event Comment 05/24/2021 1201 1308 AN Verify 1308 Start 1308 An Start Data 1311 An Induction 1313 Anesthesia Ready 1315 Procedure Start 1326 Procedure Stop 1330 an stop data 1335 Recovery or ICU Handoff Radha ent care was transferred to the destination unit staff after review of the patient's medical history, current anesthetic/surgical status and plan, according to the Provider Handoff Checklist. 1335 Stop Meds Name Total IV Lidocaine 50 mg Propofol 100 mg Propofol INF 337.5 mg lactated ringers infusion 500 mL * Agents Name O2 Auxiliary Flowmeter 1 * Blood No [...] 1005; median cubital vein (antecubital fossa), right; [id number] catheter system; 22 gauge, 1 in length; 08/10/21 (LDA Cleanup utility RA#[id number]); 1650 (LDA Cleanup utility RA#[id number]) 03/30/20 1005 by Brandi Wheatley K 08/10/21 1650 by Erik Mccoy Incision 08/12/20; 0920; ankl e; 07/03/22 (LDA cleanup utility RA#[id number]); 1715 (LDA cleanup utility RA#[id number]) 08/12/20 0920 by Duarte Garcia RN 07/03/22 1715 by Kimber Santiago (RETIRED) Peripheral IV Line - Single Lumen 05/24/21; 1233; median cubital vein (antecubital fossa), right; 05/24/21; 1409 05/24/21 1233 by Lilia Moreno RN 05/24/21 1409 by Tyler Nick RN documented in this encounter Social History [...] OR Notes * Anesthesia Postprocedure Evaluation - Fernandez Luciano MD - 05/24/2021 1:54 PM EDT Department of Anesthesiology Post-procedure Note Patient: Vianney Cordero Procedure Summary Date: 05/24/21 Room / Location: [facility] ENDO 1 / [facility] ENDOSCOPY Anesthesia Start: 1308 Anesthesia Stop: 1335 Procedure: EGD WITH BIOPSY (WRVU 2.49) (N/A Trunk) Diagnosis: (MOYA pH study ON BID PPI with an upper endoscopy for refractory reflux, history of TYESHA, evaluate wrap as well - NEEDS MAC (anesthesia)) Surgeons: Kathy Carnes MD Responsible Provider: Fernandez Luciano MD Anesthesia Type: MAC ASA Status: 2 All Anesthesia Providers: Anesthesiologist: Fernandez Luciano MD MANAGER ARCHITECTURAL: Nichelle Guzman CRNA Vitals Value Taken Time BP 132/58 05/24/21 1350 Temp Pulse Resp 18 05/24/21 1340 SpO2 98 % 05/24/21 1354 Pain Level 0 05/24/21 1340 Vitals shown include unvalidated device data. Patient Location: PACU/[facility] Level of Consciousness: Awake and Alert Pain Management: Satisfactory Analgesia PONV: None Cardiovascular Status: At Baseline and Hemodynamically Stable Respiratory Status: At Baseline and Room Air Postoperative Fluid Status: Intravascular EUvolemia Possible Anesthetic Complications: NONE apparent at time of evaluation Final Primary Anesthesia Type: MAC (The anesthetic type performed was the same as planned.) Comments: Fernandez Luciano MD * Anesthesia Preprocedure Evaluation - Fernandez Luciano MD - 05/24/2021 11:44 AM EDT Pre-Anesthesia Evaluation for: Vianney Cordero a 45 y.o. female. Procedure(s): EGD, UPPER GI ENDOSCOPY Patient Active Problem List Diagnosis ??? Peroneal [...] performed by Erum Szymanski MD at [facility] ENDOSCOPY ??? PRO COLONOSCOPY, BIOPSY N/A 09/04/2019 COLONOSCOPY FLEXIBLE, WITH BX (WRVU 3.66) performed by Steve Ji MD at [facility] ENDOSCOPY ??? PRO COLONOSCOPY, DIAGNOSTIC N/A 09/04/2019 COLONOSCOPY, DIAGNOSTIC performed by Steve Ji MD at [facility] ENDOSCOPY ??? PRO COLONOSCOPY, REMV LESN, SNARE N/A 08/21/2018 COLONOSCOPY, POLYPECTOMY, REMOVAL LESION BY SNARE (WRVU 4.67) performed by Erum Szymanski MD at [facility] ENDOSCOPY ? ? PRO CYSTO W URETEROSCOPY &/OR PYELOSCOPY, DX Right 06/01/2015 CYSTOURETEROSCOPY, DIAGNOSTIC performed by Darius Nuñez Jr., MD at [facility] MAIN OR ??? PRO CYSTOSCOPY, INSERT URETERAL STENT Right 06/01/2015 CYSTO, STENT PLACEMENT performed by Darius Nuñez Jr., MD at [facility] OR ??? PRO LAP, ESOPHAGOGAST FUNDOPLASTY N/A 04/05/2015 LAPAROSCOPIC TYESHA FUNDOPLASTY performed by Valentín Moura MD at [facility] OR ??? PRO PERCUT DILATN RENAL TRACT Right 06/01/2015 PERCUTANEOUS INTRO GUIDE WIRE TO ACCESS RENAL PELVIS,AND OR URETER, W\DILATION performed by Darius Nuñez Jr., MD at [facility] MAIN OR ??? PRO PERCUT REMV KID STONE, UP TO 2 CM Right 06/01/2015 NEPHROLITHOTOMY, ([facility]) PERCUTANEOUS performed by Darius Nuñez Jr., MD at [facility] MAIN OR ??? PRO REPAIR PERONEAL TENDONS Right 08/12/2020 PERONEAL TENDON REPAIR (WRVU 7.35) performed by Mani Jefferson MD at [facility] OSC ??? PRO UPPER GI ENDOSCOPY, BIOPSY N/A 01/27/2015 EGD WITH BIOPSY performed by Brandt Barlow MD at [facility] ENDOSCOPY ??? PRO UPPER GI ENDOSCOPY, BIOPSY N/A 02/28/2016 EGD WITH BIOPSY performed by Brandt Barlow MD at [facility] ENDOSCOPY ??? PRO UPPER GI ENDOSCOPY, BIOPSY N/A 09/04/2016 EGD WITH BIOPSY performed by Brandt Barlow MD at [facility] ENDOSCOPY ??? PRO UPPER GI ENDOSCOPY, BIOPSY N/A 09/24/2017 EGD WITH BIOPSY (WRVU 2.49) performed by Brandt Barlow MD at [facility] ENDOSCOPY ??? PRO UPPER GI ENDOSCOPY, BIOPSY N/A 08/21/2018 EGD WITH BIOPSY (WRVU 2.49) performed by Erum Szymanski MD at [facility] ENDOSCOPY ??? PRO UPPER GI ENDOSCOPY, BIOPSY N/A 09/04/2019 UPPER GASTROINTESTINAL ENDOSCOPY,WITH BIOPSY SINGLE OR MULTIPLE (WRVU 2.49) performed by Steve Ji MD at [facility] ENDOSCOPY ??? PRO UPPER GI ENDOSCOPY, DIAGNOSTIC N/A 09/04/2019 EGD, UPPER GI ENDOSCOPY performed by Steve Ji MD at [facility] ENDOSCOPY ??? TONSILLECTOMY Social History Tobacco Use ??? Smoking status: Former Smoker Packs/day: 0.50 Years: 6.00 Pack years: 3.00 Types: Cigarettes Quit date: 01/25/1997 Years since quittin.3 ??? Smokeless tobacco: Never Used Substance Use Topics ??? Alcohol use: Not Currently Comment: 1X/quarter Social History Substance and Sexual Activity Drug Use No Allergies Allergen Reactions ??? Ibuprofen Interacts with protonix PCP said she shouldn't take it ??? Oxycodone Nausea And Vomiting ??? Shellfish Containing Products Medications: MAR and/or home medications have been reviewed. Physical Exam: Preprocedure Vitals Current as of 05/24/21 1144 No BP, pulse, respiration, SpO2, or temperature recorded. Height: Weight: BMI: IBW: Airway Assessment: Mallampati: I TM distance: >3 FB Neck ROM: full Cardiovascular Assessment: Rhythm: regular Rate: normal Pulmonary Assessment: unlabored breathing Dental Assessment: - normal exam Misc Assessment: IV access: Peripheral line Last Filed Perioperative Cognitive Screening None Anesthesia Plan: ASA 2 MAC, with a(n) intravenous induction 45yo 92kg F here for EGD PMH of dyspepsia (on BID PPI, denies regurg symptoms currently), hiatal hernia (s/p tyesha 2014), mix's esophagus, past H pylori infection, obesity (BMI 35). EGD/colonoscopy under MAC in the pastwithout issue. Plan: MAC w/ GA backup Region - Other Informed Consent: Anesthetic plan and risks discussed with patient. Plan discussed with attending and MANAGER ARCHITECTURAL. Anesthesia Screening documented in this encounter Plan of Treatment Upcoming Encounters Date Type Department Care Team (Late st Contact Info) Description 12/31/2024 10:00 AM EST Office [place] [address] Mercy Amanda MD [facility] [address] [facility] [address] 04/01/2025 2:00 PM EDT Office Visit [place] [phone] Erum Szymanski MD [facility] [place] [address] documented as of this encounter Visit Diagnoses Not on filedocumented in this encounter Administered Medications Inactive Administered Medications - up to 3 most recent administrations Medication Order MAR Action Action Date Dose Rate Site lactated ringers infusion 100 mL/hr, Intravenous, CONTINUOUS, Starting on e 05/24/21 at 1230, Until 05/24/21 at 1410, Endoscopy (Day of Procedure) Restarted 05/24/2021 1:26 PM EDT New Bag 05/24/2021 12:34 PM EDT 100 mL/hr 100 mL/hr lidocaine (pf) (Xylocaine) (20 mg/mL) 2% injection syringe Intravenous, PRN, Starting on e 05/24/21 at 1312, Until 05/24/21 at 1335, Anesthesia Intra-op, Routine Given 05/24/2021 1:12 PM EDT 50 mg propofoL (Diprivan) 10 mg/mL bolus injection (Anesthesia) Intravenous, PRN, Starting on e 05/24/21 at 1312, Until 05/24/21 at 1335, Anesthesia Intra-op Given 05/24/2021 1:19 PM EDT 10 mg Given 05/24/2021 1:15 PM EDT 20 mg Given 05/24/2021 1:13 PM EDT 20 mg propofoL (Diprivan) infusion Intravenous, CONTINUOUS PRN, Starting on e 05/24/21 at 1311, Until 05/24/21 at 1335, Anesthesia Intra-op, Routine New Bag 05/24/2021 1:11 PM EDT 250 mcg/kg/min 135 mL/hr documented in this encounter Care Teams Lunchroom Mother Relationship Specialty Start Date End Date Sonido Cordoba PA [address] [place] [address] PCP - General Family Medicine 07/06/20 documented as of this encounter
--- OUTSIDE RECORDS SUMMARY | 2024-10-16 17:40 | XMS_ITS | Encounter Summary ---
Author Organization [facility] [place] [address] Care Team Providers Care Legal Administrative Assistant Name Role Phone Sonido Cordoba Primary Care Provider +1- [phone] Encounter Details Date Type Department Care Team (Late st Contact Info) Description 05/05/2020 Orders [place] [address] Mani Jefferson MD [facility] [address] [place] [address] Peroneal tendon tear, right, subsequent encounter (Primary Dx) Social History Tobacco Use [...] AM EST Office [place] [address] Mercy Amanda MD [facility] [address] [facility] [address] 04/01/2025 2:00 PM EDT Office [place] [address] Ermu Szymanski MD [facility] [place] [address] Scheduled Orders Name Type Priority Associated Diagnoses Orde r Schedule PERONEAL TENDON REPAIR Procedures Routine One Time for 1 Occurrences starting 05/05/2020 until 05/05/2020 documented as of this encounter Visit Diagnoses Diagnosis Peroneal tendon tear, right, subsequent encounter- Primary documented in this encounter Care Teams Legal Administrative Assistant Relationship Specialty Start Date End Date Sonido Cordoba PA [address] [place] [address] PCP - General Family Medicine 11/16/15 06/22/20 documented as of this encounter
--- OUTSIDE RECORDS SUMMARY | 2024-10-16 17:40 | XMS_ITS | Encounter Summary ---
Author Organization [facility] [place] [address] Care Team Providers Care Telemarketing Representative Name Role Phone Sonido Cordoba Primary Care Provider +1- [phone] Encounter Details Date Type Department Care Team (Late st Contact Info) Description 02/18/2021 Orders Only [place] [phone] Chinyere Galindo APRN [facility] [place] [address] Social History Tobacco Use Types Packs/Day Years [...] AM EST Office [place] [phone] Mercy Amanda MD [facility] [address] [facility] [address] 04/01/2025 2:00 PM EDT Office [place] [phone] Erum Szymanski MD [facility] [place] [address] documented as of this encounter Procedures Procedure Name Priority Date/Time Associated Diagnosis Comments QUANTIFERON-TB GOLD Routine 02/18/2021 8 :47 AM EDT documented in this encounter Results * QuantiFERON-TB Gold (02/18/2021 8:47 AM EDT) Quantiferon Nil 0.060 IU/mL [facility] QFT TB Ag1-Nil 0.010 IU/mL [facility] QFT TB Ag2-Nil 0.000 IU/mL [facility] Quantiferon Mitogen-Nil 7.810 IU/mL [facility] Quantiferon-TB Gold Negative Negative [facility] Quantiferon Tb Interp M. tuberculosis infection [...] affect immune function, or other immunological factors. [facility] Comment: The performance of the QFT-Plus assay has not been extensively evaluated with specimens from the following individuals: Individuals who have impaired or altered immune functions, such as those who have HIV infection or AIDS, those who have transplantation managed with immunosuppressive treatment or others who receive immunosuppressive drugs (e.g., corticosteroids, methotrexate, azathioprine, cancer chemotherapy), those who have other clinical conditions, such as diabetes, silicosis, chronic renal failure, and hematological disorders (e.g., leukemia and lymphomas), or those with other specific malignancies (e.g., carcinoma of the head or neck and lung). Individuals younger than age 17 years women. Diagnosis of, or the exclusion of tuberculosis disease, and assessment of Latent Tuberculosis Infection (LTBI) requires a combination of epidemiological, historical, Medical and diagnostic findings that should be taken into account when interpreting QFT-Plus results. Blood specimen (specimen) Venous Draw / Unknown 02/18/2021 8:47 AM EDT 02/21/2021 7:40 AM EDT Narrative Resulting Agency Comment Spec In Lab Chinyere Galindo APRN CHEMISTRY ORDERABLES [facility] [place] [address] documented in this encounter Visit Diagnoses Not on filedocumented in this encounter Care Teams Telemarketing Representative Relationship Specialty Start Date End Date Sonido Cordoba PA [address] [place] [address] PCP - General Family Medicine 07/06/20 documented as of this encounter
--- OUTSIDE RECORDS SUMMARY | 2024-10-16 17:40 | XMS_ITS | Encounter Summary ---
Author Organization [place] [address] Care Team Providers Care C Unix Developer Name Role Phone Sonido Cordoba Primary Care Provider +1- [phone] Reason for Visit * Reason Onset Date Comments Appointment 09/27/2020 Encounter Details Date Type Department Care Team (Late st Contact Info) Description 09/27/2020 Telephone [place] [phone] Gracy Ellis PA [facility] DR [place] [address] Appointment Social History Tobacco Use Types Packs/Day [...] Miscellaneous Notes * Telephone Encounter - Sabiha Serrano - 09/27/2020 12:18 PM EST Images from the original note were not included. Reached out to PT per the below request from PT. Verified that she had not been seen in our department for pain/numbness/tingling for left leg and would need to do a new referral. Asked PT if she wasable to self refer as this would be a new issue for evaluation and PT said she wasn't sure and would have to call back and disconnected call. Vianney Yanes J to Gracy Ellis PA ?? 09/27/20 11:47 AM Hi it would not let me reply. I would like to make an appointment to talk about my keft leg thanksEric Faith documented in this encounter Plan of Treatment Upcoming Encounters Date Type Department Care Team (Late st Contact Info) Description 12/31/2024 10:00 AM EST [place] [address] Mercy Amanda MD [facility] [address] [facility] [address] 04/01/2025 2:00 PM EDT Office [place] [address] Erum Szymanski MD [facility] [place] [address] documented as of this encounter Visit Diagnoses Not on filedocumented in this encounter Care Teams C Unix Developer Relationship Specialty Start Date End Date Sonido Cordoba PA [address] [place] [address] PCP - General Family Medicine 07/06/20 documented as of this encounter
--- OUTSIDE RECORDS SUMMARY | 2024-10-16 17:40 | XMS_ITS | Encounter Summary ---
Author Organization [facility] [place] [address] Care Team Providers Care Checker Cashier Name Role Phone Sonido Cordoba Primary Care Provider +1- [phone] Reason for Visit * Reason Comments Pre-op Exam right peroneal tendo n repair vs. tendodesis vs. debridement DOS 08/12/20 Encounter Details Date Type Department Care Team (Late st Contact Info) Description 07/06/2020 10:20 AM EDT Office [place] [address] Mani Jefferson MD [facility] [place] [address] Peroneal tendon tear, right, subsequent encounter Social [...] Sign Reading Time Taken Comments Blood Pressure 127/79 07/06/2020 10:53 AM EDT Pulse 60 07/06/2020 10:53 AM EDT Temperature - - Respiratory Rate - - Oxygen Saturation - - Inhaled Oxygen Concentration - - Weight 104.3 kg (230 lb) 07/06/2020 10:53 AM EDT verbal Height 162.6 cm (5' 4) 07/06/2020 10:53 AM EDT verbal Body Mass Index 39.48 07/06/2020 10:53 AM EDT documented in this encounter Progress Notes * Randa Us R - 07/06/2020 10:20 AM EDT PREOPERATIVE APPOINTMENT Chief complaint: Preoperative appointment for proposed right peroneal tendon repair vs. Debridementvs. tenodesis History of present illness: Vianney Cordero is a 44 y.o. year-old female here in regards to the above. This is the first time that I am meeting her. She has been followed by Danna Guzman. In brief, she has a history of right lateral sided ankle pain. She points to the area just posterior to herlateral malleolus as the source of pain. She is done an extensive course of nonoperative treatment including immobilization and physical therapy. She continues to have pain and an MRI, detailed below, shows tearing of her peroneal tendons. Danna Guzman and I talked and we made provisional plans for the proposed above procedure. Of note, she denies frequent sprains. The patient is seeking preoperative clearance with PCP: Sonido Cordoba PA-C on July 23.. The patient has had the following previous problems with surgery: none DME order placed for crutches and will pick this up prior to surgery. Post op x-rays ordered: no, not needed Past medical history: Patient Active Problem List [...] ??? Elbow pain, right 08/27/2013 Medications: ??? acetaminophen (Tylenol) 500 mg Tablet ??? pantoprazole EC (Protonix) 20 mg Tablet, Delayed Release (E.C.) ??? metroNIDAZOLE (FLAGYL) 250 mg Tablet ??? meclizine (ANTIVERT) 12.5 mg Tablet ??? gabapentin (NEURONTIN) 100 mg Capsule ??? traZODone (DESYREL) 50 mg Tablet ??? gabapentin (NEURONTIN) 300 mg Capsule Allergies: Allergies Allergen Reactions ??? Oxycodone Nausea And Vomiting Social history: Social History Tobacco Use ??? Smoking status: Former Smoker Packs/day: 0.50 Years: 6.00 Pack years: 3.00 Types: Cigarettes Quit date: 01/25/1997 Years since quittin.4 ??? Smokeless tobacco: Never Used Substance Use Topics ??? Alcohol use: Yes Comment: 1X/quarter Review of systems: No chest pain or shortness of breath No fevers, night sweats or chills Vital signs: Temp: -- Physical Exam: No apparent distress. Examination of her bilateral lower extremities shows no significant hindfoot varus. No midfoot or forefoot deformity. She has pain with resisted eversion over the peroneal tendons. Negative anterior drawer and talar tilt. Palpable dorsalis pedis and posterior tibial pulse. Intact sensation distally in the dorsal plantar aspect of her foot. Imaging: Personal review of the patient's imaging reveals: Review of the MRI from September 2019 shows tearing of the peroneus brevis tendon. This is split tearing and not a full transection. Assessment: 44 y.o. year-old female here for a preoperative appointment for proposed right peronealtendon repair vs. Debridement vs. tenodesis Plan: The patient and I discussed in detail the risks and benefits of surgery. We discussed the rationale for surgery. I do think at this point, after failing conservative management, it is a very reasonable option. We discussed the elective nature of this procedure. We discussed the fact that we will do the least amount possible, including debridement of a low-lying muscle belly and debridement and tubularization of the affected tendon. However, if a larger portion of the tendon is affected wemay need to consider repair or tenodesis. We discussed the risks of bleeding, infection, damage to nerves, vessels, tendons, and ligaments. We discussed the risks of fracture, hardware failure, wound breakdown, need for reoperation, pain, stiffness, and non-relief or exacerbation of symptoms. We discussed the risks of blood clots, pulmonary embolism, stroke, heart attack, and other cardiopulmonary and anesthetic complications up to and including the risk of . We discussed the recovery fromsurgery, and the period of non weight bearing for an anticipated 6-8 weeks that would be required, as well as the 12 months until full recovery can be expected. Specific to this procedure, we discussed the risk of continued pain, tendon rupture, stiffness. We reviewed the nonoperative options for treatment. The patient voiced understanding of all we discussed and expressed a desire to move forward with surgery despite the risks of the procedure and the alternatives. The patient signed operativeconsent today. We also reviewed the opioid consent form. I reviewed the risks of opioids and our goal of using theleast amount of opioid possible for the shortest period of time to control the patient's postoperative pain. They signed the opioid consent form. Opioid PDMP 01/07/2018 [place] PDMP Query Date 01/07/2018 [place] PDMP Query Date 01/07/2018 She was also given chlorhexidine soap to use the night before and the morning of surgery. Postoperative anticoagulation: Aspirin 81 mg BID for 30 days Identified barriers to surgery: none This plan was discussed with the patient and they are in agreement. All of the patient's questions were answered. I have personally evaluated the patient and agree with the above note as recorded by NOEL Allen, [place] LAT, OTC, who acted as scribe for this note. Mani Jefferson MD MS 07/05/2020 * Randa Us - 07/06/2020 10:20 AM EDT Pre-op note by PCP uploaded into patient chart. She is down 7.7 pounds in the last 3 weeks, and is continuing to exercise. Medically cleared by PCP. Looking forward to surgery on 08/12/2020. documented in this encounter Plan of Treatment Upcoming Encounters Date Type Department Care Team (Late st Contact Info) Description 12/31/2024 10:00 AM EST Office [place] [address] Mercy Amanda MD [facility] [address] [place] [address] 04/01/2025 2:00 PM EDT Office [place] [phone] Erum Szymanski MD [facility] [place] [address] documented as of this encounter Visit Diagnoses Diagnosis Peroneal tendon tear, right, subsequent encounter documented in this encounter Care Teams Checker Cashier Relationship Specialty Start Date End Date Sonido Cordoba PA [address] [place] [address] PCP - General Family Medicine 07/06/20 documented as of this encounter
--- OUTSIDE RECORDS SUMMARY | 2024-10-16 17:40 | XMS_ITS | Encounter Summary ---
Author Organization [facility] [place] [address] Care Team Providers Care Crab Meat Processor Name Role Phone Sonido Cordoba Primary Care Provider +1- [phone] Reason for Visit * Reason Comments Follow Up Surgery 08-12-20 right perone al tendon repair // DOI 08/2019 Encounter Details Date Type Department Care Team (Late st Contact Info) Description 09/24/2020 11:30 AM EST Office [place] [address] Gracy Ellis PA [facility] [address] [place] [address] Peroneal tendon tear, right, subsequent encounter Social [...] Sign Reading Time Taken Comments Blood Pressure 135/98 09/24/2020 11:24 AM EST Pulse 64 09/24/2020 11:24 AM EST Temperature - - Respiratory Rate - - Oxygen Saturation - - Inhaled Oxygen Concentration - - Weight 94.8 kg (209 lb) 09/24/2020 11:24 AM EST reported Height 162.6 cm (5' 4) 09/24/2020 11:24 AM EST reported Body Mass Index 35.87 09/24/2020 11:24 AM EST documented in this encounter Progress Notes * Gracy Ellis PA - 09/24/2020 11:30 AM EST PATIENT NAME: Vianney Cordero AGE: 44 y.o. MR#: [id number] DATE OF VISIT: 09/24/2020 CHIEF COMPLAINT: 6 weeks post 08/12/2020 ([facility]) Right peroneal brevis tendon debridement/tubularization HISTORY OF PRESENT ILLNESS: Ms. Mao Cordero is a 44 y.o. female who comes into clinic today for evaluation of the right foot after the above. The PT was last in to see myself on 08/25/2020 . Since this visit she has been doing well. She has been working with [facility] physical therapy. Her pain has been reasonable. She is taking Tylenol for pain management. No fevers, chills, drenching night sweats. She has progressed to WBAT in the boot with crutches. She does have some pain with this. She has been working on physical therapy dragging her foot under her leg to allow the heel to hit the floor. Light weight bearing, dorsiflexion and plantarflexion. She is not currently working. She does note swelling in the ankle towards the end of the day. Past medical history: Patient Active Problem List [...] ??? Elbow pain, right 08/27/2013 Medications: ??? traMADoL (Ultram) 50 mg Tablet ??? pantoprazole EC (Protonix) 20 mg Tablet, Delayed Release (E.C.) ??? acetaminophen [...] Types: Cigarettes Quit date: 01/25/1997 Years since quittin.6 ??? Smokeless tobacco: Never Used Substance Use Topics ??? Alcohol use: Not Currently Comment: 1X/quarter Review of systems: No chest pain or shortness of breath No fevers, night sweats or chills Vital signs: Blood pressure (!) 135/98, pulse 64, height 162.6 cm (5' 4), weight 94.8 kg (209 lb). Physical exam: Ms. Mao Cordero is a 44 y.o. female who is alert and oriented. She is in no acute discomfort and is resting comfortably in the exam room. Demonstrates dorsiflexion to 5 Plantarflexion to 30 Mild edema globally about the ankle No erythema noted. Incision is well healed. PT/DP pulses 2+. Superficial peroneal, deep peroneal, sural, saphenous, and tibial nerves intact totouch. . Assessment and plan:: 44 y.o. year-old female now roughly 6 weeks out post 08/12/2020 ([facility]) Right peroneal brevis tendon debridement/tubularization. Doing well. We had a long discussion regarding the nature of Vianney Cordero's progress. Clinically Vianney Cordero has an expected amount of swelling. Her incision is healed. Her range of motion is progressing appropriately. She will continue to follow the below protocol Weeks 0-2: ??? in walker boot vs. [...] other questions or concerns. FU: 6 weeks with no XR Gracy Ellis PA-C The above dictation was made with voice recogonition software documented in this encounter Plan of Treatment Upcoming Encounters Date Type Department Care Team (Late st Contact Info) Description 12/31/2024 10:00 AM EST Office [place] [address] Mercy Amanda MD [facility] [address] [facility] [address] 04/01/2025 2:00 PM EDT Office [place] [address] Erum Szymanski MD [facility] [place] [address] documented as of this encounter Visit Diagnoses Diagnosis Peroneal tendon tear, right, subsequent encounter documented in this encounter Care Teams Crab Meat Processor Relationship Specialty Start Date End Date Sonido Cordoba PA [address] [place] [address] PCP - General Family Medicine 07/06/20 documented as of this encounter
--- OUTSIDE RECORDS SUMMARY | 2024-10-16 17:40 | XMS_ITS | Encounter Summary ---
Author Organization [facility] [place] [address] Care Team Providers Care Costumed Character Entertainer Name Role Phone Sonido Cordoba Primary Care Provider +1- [phone] Reason for Referral * Physical Therapy (Routine) - Specialty Diagnoses / Procedures Referred By Aric madrigal Referred To Contact Diagnoses Peroneal tendon tear, right, subsequent encounter Gracy Ellis PA [facility] [place] [address] Referral ID Status Reason Start Date Expiration Date V isits Requested Visits Authorized [id number] Evaluate and Treat 08/25/2020 02/21/2021 12 12 Reason for Visit * Reason Comments Post Op 08-12-20 right perone al tendon repair // DOI 08/2019 Encounter Details Date Type Department Care Team (Late st Contact Info) Description 08/25/2020 10:30 AM EDT [place] [address] Gracy Ellis PA [facility] [place] [address] Peroneal tendon tear, right, subsequent encounter Social [...] Sign Reading Time Taken Comments Blood Pressure 141/61 08/25/2020 10:45 AM EDT Pulse 97 08/25/2020 10:45 AM EDT Temperature - - Respiratory Rate - - Oxygen Saturation - - Inhaled Oxygen Concentration - - Weight 97.5 kg (215 lb) 08/25/2020 10:45 AM EDT reported Height 165.1 cm (5' 5) 08/25/2020 10:45 AM EDT reported Body Mass Index 35.78 08/25/2020 10:45 AM EDT documented in this encounter Progress Notes * Gracy Ellis PA - 08/25/2020 10:30 AM EDT PATIENT NAME: Vianney Cordero AGE: 44 y.o. MR#: [id number] DATE OF VISIT: 08/25/2020 CHIEF COMPLAINT: 2 weeks Hospital check post 08/12/2020 ([facility]( Right peroneal brevis tendon debridement/tubularization HISTORY OF PRESENT ILLNESS: Ms. Mao Cordero is a 44 y.o. female who comes into clinic today for evaluation of the right foot after the above. Vianney Cordero has been doing well since surgery. She has been compliant with NWB restrictions and denies fever, chills, drenching night sweats, calfpain or tightness. She has been tramadol for pain however had not had a bowel movement since surgery. She started moving her bowels on Sunday and is now having a movement every other day. This is less frequent than her normal habits which is daily. She does not drink much water and had not used any over the countermedications to help encourage a more frequent bowel movement. She is now using tylenol for pain andfeels that this is handling She is taking ASA for DVT/PE prophylaxis. End date is 09/10/2020. She denies chest pain, calf pain, SOB. Past medical history: Patient Active Problem List [...] sweats or chills Vital signs: Blood pressure 141/61, pulse 97, height 165.1 cm (5' 5), weight 97.5 kg (215 lb), last menstrual period 08/12/2020. Physical exam: Ms. Mao Cordero is a 44 y.o. female who is alert and oriented. She is in no acute discomfort and is resting comfortably in the exam room. No fabiana-incisional erythema noted No bogginess or drainage to palpation about the incision Skin feels no warmer than surrounding tissue I am not able to part the skin with gentle palpation Calf is supple and non tender PT/DP pulses 2+. Superficial peroneal, deep peroneal, sural, saphenous, and tibial nerves intact totouch. . Assessment and plan:: 44 y.o. year-old female now roughly 2 weeks out post 08/12/2020 ([facility]( Right peroneal brevis tendon debridement/tubularization overall doing well. We had a long discussion regarding the nature of Vianney Cordero's healing. Clinically Vianney Cordero incision looks great. Sutures/lucille were removed today in clinic. The pt handled this well. Steri strips need to remainin place for at least one week. Showers are ok, however please do not submerge the incision until the scabs have been replaced by scars. We reviewed her issues with bowel movements. She is now currently having a movement every other dayand denies that she is straining to pass. I would recommend dramatically increasing her fluid intake. I would recommend roughly 3 liters of water in a 24 hours period. She will go back into her rebound boot today. She will work with physical therapy on the following protocol. She is now at week 2 however I recommend waiting until she is seen with physical therapy for guidance. Weeks 0-2: ??? in walker boot vs. [...] WBAT, starting with 2 crutches in Walker Boot Weeks 6-10: ??? may come out of [...] AM EST [place] [address] Mercy Amanda MD [facility] [address] [facility] [place] [address] 04/01/2025 2:00 PM EDT Office [place] [phone] Erum Szymanski MD [facility] [place] [address] Scheduled Referrals Name Type Priority Associated Diagnoses Orde r Schedule Referral to Physical Therapy Outpatient Referral Routine Peroneal tendon tear, right, subsequent encounter Ordered: 08/25/2020 documented as of this encounter Visit Diagnoses Diagnosis Peroneal tendon tear, right, subsequent encounter documented in this encounter Care Teams Costumed Character Entertainer Relationship Specialty Start Date End Date Sonido Cordoba PA [address] [place] [address] PCP - General Family Medicine 07/06/20 documented as of this encounter
--- OUTSIDE RECORDS SUMMARY | 2024-10-16 17:40 | XMS_ITS | Encounter Summary ---
Author Organization [facility] [place] [address] Care Team Providers Care Disc Inspector Name Role Phone Sonido Cordoba Primary Care Provider +1- [phone] Encounter Details Date Type Department Care Team (Latest Contact Info) Description 12/22/2020 8:59 AM EST - 12/22/2020 11:59 PM [facility] Hospital [place] [address] Devan Nuñez Jr., MD [facility] [place] [address] Nephrolithiasis Discharge Disposition: Home Social History Tobacco Use [...] by mouth 3 times daily as needed. baclofen (LIORESAL) 5 mg TabletIndications:Gastro esophageal reflux disease with esophagitis, unspecified whether hemorrhage Take 1 tablet by mouth 2 times daily (before meals). As needed to reduce reflux, hiccups and belching. 60 tablet 2 12/12/2020 04/13/2021 pantoprazole EC (Protonix) 40 mg Tablet, Delayed [...] AM EST Office [place] [address] Mercy Amanda MD [facility] [address] 04/01/2025 2:00 PM EDT Office [place] [address] Erum Szymanski MD [facility] [place] [address] documented as of this encounter Procedures Procedure Name Priority Date/Time Associated Diagnosis Comments US RETROPERITONEAL COMPLETE Routine 12/22/2020 9:17 AM EST Nephrolithiasis documented in this encounter Results * US Retroperitoneal Complete [...] please contact the number below. ?Aliya Nguyen, Shelter Director Electronically Signed Final Report ?? 12/22/2020 10:42 am Narrative 12/22/2020 10:43 AM EST Renal ? (Signed Final 12/22/2020 10:42 am) PATIENT INFO: ID #: ? [id number] ?: ??[birth year] (45 yrs)(F) Name: ? VINANEY NEVES ?Visit Date: 12/22/2020 09:02 am ? GABRIELLE PERFORMED BY: Performed By: ? Marga Enciso RDMS Attending: ?Patrick RIVAS, Aliya Grimes Referred By: ?DEVAN NUÑEZ Location: ? [place] SERVICE(S) PROVIDED: URETRO - Retroperitoneal Complete - [id number] ? [id number] INDICATIONS: stones COMPARISON: Ultrasound: 09/11/17. RIGHT KIDNEY: [...] 12/22/2020 10:42 am) PATIENT INFO: ID #: [id number] : [birth year] (45 yrs)(F) Name: VIANNEY NEVES Visit Date: 12/22/2020 09:02 am ANTHONY PERFORMED BY: Performed By: Marga Enciso RDMS Attending: Aliya Nguyen MD Referred By: DEVAN NUÑEZ JR Location: [place] SERVICE(S) PROVIDED: URETRO - Retroperitoneal Complete - [id number] INDICATIONS: stones COMPARISON: Ultrasound: 09/11/17. RIGHT KIDNEY: [...] please contact the number below. Aliya Nguyen, Shelter Director Electronically Signed Final Report 12/22/2020 10:42 am Devan Nuñez Jr., MD [facility] GEN ORDERAB LES documented in this encounter Visit Diagnoses Diagnosis Nephrolithiasis Calculus of kidney documented in this encounter Care Teams Disc Inspector Relationship Specialty Start Date End Date Sonido Cordoba PA [address] [place] [address] PCP - General Family Medicine 07/06/20 documented as of this encounter
--- OUTSIDE RECORDS SUMMARY | 2024-10-16 17:40 | XMS_ITS | Encounter Summary ---
Author Organization [facility] [place] [address] Care Team Providers Care Meat Washer Name Role Phone Sonido Cordoba Primary Care Provider +1- [phone] Reason for Referral * Consultation (Routine) - Closed Specialty Diagnoses / Procedures Referred By Conteulalio t Referred To Contact Weight and Wellness Diagnoses Obesity (BMI 30.0-34.9) Erum Szymanski MD [facility] [place] [address] [facility] [address] [place] [address] Referral ID Status Reason Start Date Expiration Date V isits Requested Visits Authorized [id number] Closed Consult, Test & Treat 04/13/2021 04/13/2022 1 1 * Consultation (Routine) - Closed Specialty Diagnoses / Procedures Referred By Conteulalio t Referred To Contact Gastroenterology Diagnoses Gastroesophageal reflux disease with esophagitis, unspecified whether hemorrhage EGD/Moya ON BID PPI with an upper endoscopy for refractory reflux, history of TYESHA, evaluate wrap as well - NEEDS MAC (anesthesia) Procedures MOYA MOTILITY PH TEST PRFM EGD/Moya ON BID PPI with an upper endoscopy for refractory reflux, history of TYESHA, evaluate wrap as well - NEEDS MAC (anesthesia) Erum Szymanski MD [facility] [place] [address] [facility] [address] [place] [address] Referral ID Status Reason Start Date Expiration Date V isits Requested Visits Authorized [id number] Closed Consult, Test & Treat 04/13/2021 04/13/2022 1 1 Encounter Details Date Type Department Care Team (Latest Contact Info) Description 04/13/2021 2:00 PM EDT Office [place] [address] [facility] [place] [address] Gastroesophageal reflux disease with esophagitis, unspecified whether hemorrhage; Obesity (BMI 30.0-34.9) Social History Tobacco Use Types Packs/Day Years [...] Sign Reading Time Taken Comments Blood Pressure 130/53 04/13/2021 2:08 PM EDT Pulse 80 04/13/2021 2:08 PM EDT Temperature - - Respiratory Rate - - Oxygen Saturation - - Inhaled Oxygen Concentration - - Weight 92.1 kg (203 lb) 04/13/2021 2:08 PM EDT Height 162.6 cm (5' 4) 04/13/2021 2:08 PM EDT Body Mass Index 34.84 04/13/2021 2:08 PM EDT documented in this encounter Patient Instructions * Patient Instructions* Erum Szymanski MD - 04/13/2021 2:00 PM EDT Plan: ?? Upper endoscopy with anesthesia to check your TYESHA wrap and perform MOYA acid reflux study while you are taking your pantoprazole twice a day ?? Continue pantoprazole 40mg twice a day take 30 minutes before food ?? Eat small frequent meals (avoid fasting for prolonged periods). Avoid fried foods and red sauces. Stay upright for 3 hours after eating ?? Continue to try to lose weight. Referral to weight and wellness center - they can help! ?? Celcius water has erythritol in it, which can cause bloating, so be mindful of this Follow-up in: 6 months documented in this encounter Progress Notes * Erum Szymanski MD - 04/13/2021 2:00 PM EDT [facility] Section of Gastroenterology and Hepatology Follow-Up Visit PCP: WANDY Aguilera Referring provider: WANDY Aguilera [address] [place] [address] HPI This is a 45 y.o. female [...] ?? Normal EGD, HIDA scan 9. Gas/bloat Patient's primary concern today: heartburn Interval follow-up After last visit we increased pantoprazole to [...] subsequent encounter S86.311D Current Outpatient Medications: ??? cyclobenzaprine (Flexeril) 10 mg Tablet, Take 10 mg by mouth 3 times daily as needed for Musclespasms., Disp: , Rfl: ??? baclofen (LIORESAL) 5 mg Tablet, Take 1 tablet by mouth 2 times daily (before meals). As neededto reduce reflux, hiccups and belching., Disp: 60 tablet, Rfl: 2 ??? pantoprazole EC (Protonix) 40 mg Tablet, [...] 3.66) performed by Erum Szymanski MD at [facility] ??? PRO COLONOSCOPY, BIOPSY N/A 09/04/2019 COLONOSCOPY FLEXIBLE, WITH BX (WRVU 3.66) performed by Steve Ji MD at [facility] ??? PRO COLONOSCOPY, DIAGNOSTIC N/A 09/04/2019 COLONOSCOPY, DIAGNOSTIC performed by Steve Ji MD at [facility] ??? PRO COLONOSCOPY, REMV LESN, SNARE N/A 08/21/2018 COLONOSCOPY, POLYPECTOMY, REMOVAL LESION BY SNARE (WRVU 4.67) performed by Erum Szymanski MD at [facility] ? ? PRO CYSTO W URETEROSCOPY &/OR PYELOSCOPY, DX Right 06/01/2015 CYSTOURETEROSCOPY, DIAGNOSTIC performed by Darius Nuñez Jr., MD at [facility] OR ??? PRO CYSTOSCOPY, INSERT URETERAL STENT Right 06/01/2015 CYSTO, STENT PLACEMENT performed by Darius Nuñez Jr., MD at [facility] OR ??? PRO LAP, ESOPHAGOGAST FUNDOPLASTY N/A 04/05/2015 LAPAROSCOPIC TYESHA FUNDOPLASTY performed by Valentín Moura MD at [facility] OR ??? PRO PERCUT DILATN RENAL TRACT Right 06/01/2015 PERCUTANEOUS INTRO GUIDE WIRE TO ACCESS RENAL PELVIS,AND OR URETER, W\DILATION performed by Darius Nuñez Jr., MD at [facility] OR ??? PRO PERCUT REMV KID STONE, UP TO 2 CM Right 06/01/2015 NEPHROLITHOTOMY, ([facility]) PERCUTANEOUS performed by Darius Nuñez Jr., MD at [facility] OR ??? PRO REPAIR PERONEAL TENDONS Right 08/12/2020 PERONEAL TENDON REPAIR (WRVU 7.35) performed by Mani Jefferson MD at [facility] ??? PRO UPPER GI ENDOSCOPY, BIOPSY N/A 01/27/2015 EGD WITH BIOPSY performed by Brandt Barlow MD at [facility] ??? PRO UPPER GI ENDOSCOPY, BIOPSY N/A 02/28/2016 EGD WITH BIOPSY performed by Brandt Barlow MD at [facility] ??? PRO UPPER GI ENDOSCOPY, BIOPSY N/A 09/04/2016 EGD WITH BIOPSY performed by Brandt Barlow MD at [facility] ??? PRO UPPER GI ENDOSCOPY, BIOPSY N/A 09/24/2017 EGD WITH BIOPSY (WRVU 2.49) performed by Brandt Barlow MD at [facility] ??? PRO UPPER GI ENDOSCOPY, BIOPSY N/A 08/21/2018 EGD WITH BIOPSY (WRVU 2.49) performed by Erum Szymanski MD at [facility] ??? PRO UPPER GI ENDOSCOPY, BIOPSY N/A 09/04/2019 UPPER GASTROINTESTINAL ENDOSCOPY,WITH BIOPSY SINGLE OR MULTIPLE (WRVU 2.49) performed by Steve Ji MD at [facility] ??? PRO UPPER GI ENDOSCOPY, DIAGNOSTIC N/A 09/04/2019 EGD, UPPER GI ENDOSCOPY performed by Steve Ji MD at [facility] ??? TONSILLECTOMY Social History Socioeconomic [...] Types: Cigarettes Quit date: 01/25/1997 Years since quittin.2 ??? Smokeless tobacco: Never Used Vaping Use ??? Vaping Use: Never used Substance and Sexual Activity ??? Alcohol use: Not Currently Comment: 1X/quarter ??? Drug use: No ??? Sexual activity: Yes Partners: Male control/protection: Surgical Other Topics Concern ??? Not on file Social History Narrative ??? Not on file Social Determinants of Health Financial Resource Strain: ??? Difficulty of Paying Living Expenses: Food Insecurity: ??? Worried About Running Out of Food in the Last Year: ??? Ran Out of Food in the Last Year: Transportation Needs: ??? Lack of Transportation (Medical): ??? Lack of Transportation (Non-Medical): Physical Activity: ??? Days of Exercise per Week: ??? Minutes of Exercise per Session: Family History Problem Relation Age of Onset ??? Diabetes Mother ??? Diabetes Maternal Grandmother ??? Diabetes Maternal Grandfather Physical Exam BP 130/53 (BP Location (NBP): Left arm, Patient Position: Sitting, BP Cuff Sizes: Large Adult (32-43 cm)) Pulse 80 Ht 162.6 cm (5' 4) Wt 92.1 kg (203 lb) BMI 34.84 kg/m?? Constitutional: Well appearing, NAD, AAO x 3 Psychiatric: pleasant, judgement and insight intact PERTINENT LABS AND IMAGING: As noted above Impression: 45 y.o. female following up for GERD. Prior TYESHA in 2015 and long segment Rodgers's. Worsening heartburn, hiccups and belching despite BID PPI. Reached a weight plateau and wants to continue to lose weight. Was able to vomit recently, suggesting TYESHA may be loose. I think there is value in doing endoscopy with a MOYA on PPI given that acid suppression is so important with her history of Rodgers's esophagus. DDX is acid reflux vs non-acid reflux vs reflux hypersensitivity vs functional heartburn. Discussed MOYA testing in detail. Will also get her plugged in to weight and wellness. Plan: ?? EGD with anesthesia to perform MOYA pH study ON BID PPI (pantoprazole 40mg BID) and check TYESHA ?? Eat small frequent meals (avoid fasting for prolonged periods). Avoid fried foods and red sauces. Stay upright for 3 hours after eating ?? Continue pantoprazole 40mg twice a day take 30 minutes before food ?? Continue to try to lose weight. Referral to weight and wellness center. ?? Celcius water has erythritol in it, which can cause bloating, so be mindful of this ?? Upper endoscopy and colonoscopy 08/2022 for surveillance ?? If MOYA is negative, consider pH impedence testing and/or trial of neuromodulator (note trazodone mad her too sleepy) vs medication for bile acid reflux (note baclofen caused constipation) Follow-up in: 6 months The risks, benefits and alternatives were discussed with the patient who understands and agrees with above. Total visit time: 30 minutes Counseling time: Greater than 15 minutes of this 30 minute face to face visit were spent in direct counseling and coordination of care for the above issues. Erum Szymanski MD 04/13/21 Erum Szymanski MD Transportation Driverbottom hoop driver Section of Gastroenterology and Hepatology [email or web address] (p) documented in this encounter Plan of Treatment Upcoming Encounters Date Type Department Care Team (Late st Contact Info) Description 12/31/2024 10:00 AM EST Office [place] [phone] Mercy Amanda MD [facility] [address] [facility] [address] 04/01/2025 2:00 PM EDT Office [place] [phone] [facility] [place] [address] Scheduled Referrals Name Type Priority Associated Diagnoses Order Schedule Referral to Gastroenterology Outpatient Referral Routine Gastroesophageal reflux disease with esophagitis, unspecified whether hemorrhage Ordered: 04/13/2021 Referral to [facility] Outpatient Referral Routine Obesity (BMI 30.0-34.9) Ordered: 04/13/2021 documented as of this encounter Visit Diagnoses Diagnosis Gastroesophageal reflux disease with esophagitis, unspecified whether hemorrhage Obesity (BMI 30.0-34.9) Obesity, unspecified documented in this encounter Care Teams Meat Washer Relationship Specialty Start Date End Date Sonido Cordoba PA [address] [place] [address] PCP - General Family Medicine 07/06/20 documented as of this encounter
--- OUTSIDE RECORDS SUMMARY | 2024-10-16 17:40 | XMS_ITS | Encounter Summary ---
[place] [address] Care Team Providers Care Engine Repair Supervisor Name Role Phone Sonido Cordoba Primary Care Provider +1- [phone] Reason for Referral * Diagnostic Test (Routine) - Closed Specialty Diagnoses / Procedures Referred By Contac t Referred To Contact Radiology Diagnoses Chronic RUQ pain Procedures NM Functional Biliary Scan Erum Szymanski MD [facility] [place] [address] [place] [address] Referral ID Status Reason Start Date Expiration Date V isits Requested Visits Authorized [id number] Closed Specialty Service Requested 03/08/2020 09/08/2021 2 2 Reason for Visit * Diagnostic Test (Routine) - Closed Specialty Diagnoses / Procedures Referred By Contac t Referred To Contact Radiology Diagnoses Chronic RUQ pain Procedures NM Functional Biliary Scan Erum Szymanski MD [facility] [place] [address] [facility] [place] [address] Referral ID Status Reason Start Date Expiration Date V isits Requested Visits Authorized [id number] Closed Specialty Service Requested 03/08/2020 09/08/2021 2 2 Encounter Details Date Type Department Care Team (Latest Contact Info) Description 03/30/2020 10:00 AM EDT - 03/30/2020 10:04 AM EDT Hospital Encounter [place] [phone] Erum Szymanski MD [facility] [place] [address] Chronic RUQ pain Discharge Disposition: Home Social History Tobacco Use [...] times daily as needed. pantoprazole EC (Protonix) 20 mg Tablet, Delayed Release (E.C.)Indications:Brien roesophageal reflux disease with esophagitis Take 1 tablet by mouth 2 times daily (before meals). 60 tablet 5 03/08/2020 08/12/2020 diclofenac (VOLTAREN) 1 % Gel Apply 2 g topically 4 times daily as needed. 100 g 1 03/19/2019 05/04/2020 tetracycline (ACHROMYCIN;SUMYCIN) 500 mg CapsuleIndications:H pylori ulcer Take 1 capsule by mouth 4 times daily. 56 capsule 12/31/2018 05/04/2020 metroNIDAZOLE (FLAGYL) 250 mg TabletIndications:H pylori ulcer Take 1 tablet by mouth 4 times daily. 56 tablet 12/31/2018 07/06/2020 gabapentin (NEURONTIN) 100 mg Capsule 400 mg. 0 02/08/2016 08/12/2020 traZODone (DESYREL) 50 mg Tablet nightly as needed. 0 02/08/2016 4 gabapentin (NEURONTIN) 300 mg Capsule Take 200 mg by mouth nightly. 08/12/2020 documented as of this encounter Plan of Treatment Upcoming Encounters Date Type Department Care Team (Late st Contact Info) Description 12/31/2024 10:00 AM EST Office [place] [phone] Mercy Amanda MD [facility] [address] 04/01/2025 2:00 PM EDT Office Visit [place] [phone] Erum Szymanski MD [facility] [place] [address] documented as of this encounter Procedures Procedure Name Priority Date/Time Associated Diagnosis Comments NM FUNCTIONAL BILIARY SCAN Routine 03/30/2020 11:51 AM EDT Chronic RUQ pain documented in this encounter Results * NM Functional Biliary Scan (03/30/2020 11:51 AM EDT) Anatomical Region Laterality Modality Nuclear Medicine Impressions 03/30/2020 12:00 PM EDT Normal gallbladder function. Thank you for letting us participate in the care of this patient. For questions regarding this report, please contact the number below. ? Narrative 03/30/2020 12:00 PM EDT EXAMINATION: NM FUNCTIONAL BILIARY SCAN CLINICAL HISTORY: please evaluate for biliary dysfunction - severe RUQ post-prandial pain TECHNIQUE: Technetium-99m mebrofenin was administered intravenously in a dose of 4.5 mCi. An image of the abdomen was obtained in the ОЛЕГ projection 60 minutes later. Sincalide was then administered in a dose of 1.3 micrograms and imaging continued for an additional 60 minutes. FINDINGS: Activity fills the gallbladder at 60 minutes post injection. During the sincalide infusion, there is good contraction of the gallbladder. Quantitative analysis: The gallbladder ejection fraction is 72% (normal is > 38%). Procedure Note Zach Summers MD - 03/30/2020 EXAMINATION: NM FUNCTIONAL BILIARY SCAN CLINICAL HISTORY: please evaluate for biliary dysfunction - severe RUQ post-prandial pain TECHNIQUE: Technetium-99m mebrofenin was administered intravenously in adose of 4.5 mCi. An image of the abdomen was obtained in the ОЛЕГ projection 60minutes later. Sincalide was then administered in a dose of 1.3 micrograms and imaging continued for an additional 60 minutes. FINDINGS: Activity fills the gallbladder at 60 minutes post injection. During the sincalide infusion, there is good contraction of the gallbladder. Quantitative analysis: The gallbladder ejection fraction is 72% (normal is > 38%). IMPRESSION Normal gallbladder function. Thank you for letting us participate in the care of this patient. Forquestions regarding this report, please contact the number below. Erum Szymanski MD [facility] ORDERABLES documented in this encounter Visit Diagnoses Diagnosis Chronic RUQ pain Abdominal pain, right upper quadrant documented in this encounter Administered Medications Inactive Administered Medications - up to 3 most recent administrations Medication Order MAR Action Action Date Dose Rate Site technetium (Tc-99m) mebrofenin injection 0-6 mCi 0-6 mCi, Intravenous, ONCE PRN, 1 dose, Starting on Sun03/30/20 at 1012, Until Sun03/30/20 at 1008, Per Protocol, Radiology Contrast, Routine Given 03/30/2020 10:08 AM EDT 4.5 mCi Right Arm documented in this encounter Care Teams Engine Repair Supervisor Relationship Specialty Start Date End Date Sonido Cordoba PA [address] [place] [address] PCP - General Family Medicine 11/16/15 06/22/20 documented as of this encounter
--- OUTSIDE RECORDS SUMMARY | 2024-10-16 17:40 | XMS_ITS | Encounter Summary ---
Author Organization [facility] [place] [address] Care Team Providers Care Manager Logistic Name Role Phone Sonido Cordoba Primary Care Provider +1- [phone] Reason for Referral * Physical Therapy (Routine) - Specialty Diagnoses / Procedures Referred By Aric madrigal Referred To Contact Physical Therapy Diagnoses Peroneal tendon tear, right, subsequent encounter Mani Jefferson MD [facility] [place] [address] Referral ID Status Reason Start Date Expiration Date V isits Requested Visits Authorized [id number] Evaluate and Treat 09/09/2020 03/08/2021 20 20 Reason for Visit * Reason Onset Date Comments Referral 09/09/2020 Encounter Details Date Type Department Care Team (Late st Contact Info) Description 09/09/2020 Telephone [place] [phone] Mani Jefferson MD [facility] [place] [address] Referral Social History Tobacco Use Types Packs/Day Years [...] encounter Miscellaneous Notes * Telephone Encounter - Jason Shaffer - 09/09/2020 1:00 PM EST PT Referral generated and faxed to [facility]. * Telephone Encounter - Humera Myers - 09/09/2020 12:45 PM EST Who is calling: patient/physical or occupational therapist? Vianney Cordero Best call back number: [phone] Best time to call back between 8:00 am & 5:00 pm: any Can we leave a message? yes Where do they have their PT/OT? [facility] Therapy Office Phone# Therapy Office What they need: referral to PT - they are unable to get her in before her last referral expires so she needs a new one Your message will be forwarded to the clinical care team for review. (This message should be forwarded to the [facility] ORTHOPAED[facility] CHANGE CONTROL COORDINATOR pool.) documented in this encounter Plan of Treatment Upcoming Encounters Date Type Department Care Team (Late st Contact Info) Description 12/31/2024 10:00 AM EST Office [place] [address] Mercy Amanda MD [facility] [address] [facility] [address] 04/01/2025 2:00 PM EDT Office [place] [address] Erum Szymanski MD [facility] [place] [address] Scheduled Referrals Name Type Priority Associated Diagnoses Orde r Schedule Referral to Physical Therapy Outpatient Referral Routine Peroneal tendon tear, right, subsequent encounter Ordered: 09/09/2020 documented as of this encounter Visit Diagnoses Diagnosis Peroneal tendon tear, right, subsequent encounter documented in this encounter Care Teams Manager Logistic Relationship Specialty Start Date End Date Sonido Cordoba PA [address] [place] [address] PCP - General Family Medicine 07/06/20 documented as of this encounter
--- OUTSIDE RECORDS SUMMARY | 2024-10-16 17:40 | XMS_ITS | Encounter Summary ---
[place] [address] Care Team Providers Care Carriage Rider Name Role Phone Sonido Cordoba Primary Care Provider +1- [phone] Reason for Visit * Reason Onset Date Comments Prior Authorization 10/12/2020 Encounter Details Date Type Department Care Team (Late st Contact Info) Description 10/12/2020 Telephone [place] [address] Lucille Albert CCMA Prior Authorization Social History Tobacco Use [...] encounter Miscellaneous Notes * Telephone Encounter - Lucille Albert LNA - 10/12/2020 3:14 PM EST Medication Prior Authorization 4L Gastroenterology / [place] [address] Subscriber Insurance: [place] Medicaid Phone: Fax: Physician: Erum Szymanski Return Pharmacy: [facility] Fax: Medication Requested: Pantoprazole Strength: 40mg Frequency: 2 times daily Disp.: 60 Refills: 3 Currently taking: Diagnosis for this medication: GERD, Rodgers's ICD-10 code: (K21.00), (K22.70) Prior medications trialed in this patient: Omeprazole, Famotidine, Gaviscon Medication: Outcome/Adverse Reactions: Treatment Failure Decision: Approved. Tracking number/Case number/Reference number: Effective date: 10/12/2020 to 10/12/2021 Called insurance for decision. Not able to fax approval letter. Start: End: documented in this encounter Plan of Treatment Upcoming Encounters Date Type Department Care Team (Late st Contact Info) Description 12/31/2024 10:00 AM EST Office [place] [address] Mercy Amanda MD [facility] [address] [facility] [address] 04/01/2025 2:00 PM EDT Office [place] [address] Erum Szymanski MD [facility] [place] [address] documented as of this encounter Visit Diagnoses Not on filedocumented in this encounter Care Teams Carriage Rider Relationship Specialty Start Date End Date Sonido Cordoba PA [address] [place] [address] PCP - General Family Medicine 07/06/20 documented as of this encounter
--- OUTSIDE RECORDS SUMMARY | 2024-10-16 17:40 | XMS_ITS | Encounter Summary ---
[place] [address] Care Team Providers Care Needleworker Name Role Phone Sonido Cordoba Primary Care Provider +1- [phone] Encounter Details Date Type Department Care Team (Late st Contact Info) Description 03/09/2020 Telephone [place] [address] Sabiha Vincent Social History Tobacco [...] * Telephone Encounter - Sabiha Vincent - 03/09/2020 10:59 AM EDT Images from the original note were not included. can you help her schedule a HIDA scan? Received: Yesterday Message Contents Erum Szymanski MD P [facility] Sueding And Buffing Machine Operator ?? Thank you! Erum Left documented in this encounter Plan of Treatment Upcoming Encounters Date Type Department Care Team (Late st Contact Info) Description 12/31/2024 10:00 AM EST Office Visit [place] [address] Mercy Amanda MD [facility] [address] [place] [address] 04/01/2025 2:00 PM EDT Office Visit [place] [phone] Erum Szymanski MD [facility] [place] [place] [address] documented as of this encounter Visit Diagnoses Not on filedocumented in this encounter Care Teams Needleworker Relationship Specialty Start Date End Date Sonido Cordoba PA [address] [place] [address] PCP - General Family Medicine 11/16/15 06/22/20 documented as of this encounter
--- OUTSIDE RECORDS SUMMARY | 2024-10-16 17:40 | XMS_ITS | Encounter Summary ---
Author Organization [facility] [place] [address] Care Team Providers Care Fur Machine Operator Name Role Phone Sonido Cordoba Primary Care Provider +1- [phone] Reason for Referral * Consultation (Routine) - Closed Specialty Diagnoses / Procedures Referred By Contac t Referred To Contact [facility] Diagnoses Chronic RUQ pain Pain - Chronic RUQ pain/ ?injections/ U/S 03/2019 in e[facility] Erum Szymanski MD [facility] [place] [address] Michaela Givens MD [facility] [place] [address] Referral ID Status Reason Start Date Expiration Date V isits Requested Visits Authorized [id number] Closed Consult, Test & Treat 03/08/2020 03/08/2021 3 3 * Diagnostic Test (Routine) - Closed Specialty Diagnoses / Procedures Referred By Contac t Referred To Contact Radiology Diagnoses Chronic RUQ pain Procedures NM Functional Biliary Scan Erum Szymanski MD [facility] [place] [address] [place] [address] Referral ID Status Reason Start Date Expiration Date V isits Requested Visits Authorized [id number] Closed Specialty Service Requested 03/08/2020 09/08/2021 2 2 Encounter Details Date Type Department Care Team (Latest Contact Info) Description 03/08/2020 10:00 AM EDT TH Visit (TeleHealth) [place] [id number] Erum Szymanski MD [facility] [place] [address] Chronic RUQ pain; Gastroesophageal reflux disease with esophagitis; 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 Pain clinic - referral for evaluation of possible local injection ?? If not an option, we can consider adjusting neurontin or starting a new medication like amitriptyline for pain ?? Will do a gallbladder scan - our secretary specialist will call you ?? animal care supervisor lactaid pills to take prior to ice cream ?? Resume protonix 20mg twice a day ?? Get gaviscon liquid to use after meals and at bedtime if needed ?? For reflux and weight management, eat small frequent meals (avoid fasting for prolonged periods). Avoid fried foods and red sauces. ?? Stay upright for 3 hours after eating ?? Continue to avoid alcohol ?? Continue efforts at weight loss. For liver health, goal is 10% of body weight, so about 15 more pounds ?? Aim for some exercise (walking) daily to boost metabolism ?? Consider smoothies (lactose-free) ?? Consider Shakeology ?? Try: Protein powder, almond milk, yogurt (lactose-free), bananas, peanut butter or other ?? Upper endoscopy and colonoscopy 08/2022 for surveillance Follow-up in: 4 months documented in this encounter Progress Notes * Erum Szymanski MD - 03/08/2020 10:00 AM EDT [facility] Section of Gastroenterology and Hepatology Telemedicine Follow-Up Visit PCP: WANDY Aguilera HPI This is a 44 y.o. female with fatty liver, non-dysplastic long segment Rodgers's and paraesophagealhernia status post Tyesha fundoplication following up for chronic watery postprandial diarrhea withurgency. Has focal right upper quadrant (positive Carnett's, + postprandial). This is our first office visit. I met her in 2017 for her EGD and colonoscopy which were being performed for a history of Rodgers's, RUQ and chronic diarrhea. Found H pylori gastritis, normal duodenum (+ FHx of celiac in son) and non- dysplastic Rodgers's, as well as adenomatous colon polyps and architectural changes in the colon that were non-specific. EGD and Colonoscopy 08/[address] Ji repeated for sore throat with swallowing, dyspepsia, gas/bloat. Normal colon biopsies. Rodgers's again found. Her last office visit was June 2019 with WANDY Pepe. Interval follow-up Lots of stress, tearful over the phone. C/o ongoing pinching pain in the RUQ that comes on eating. It is localized over an area 2 to 3 fingers in width. It is constant and steady. Can occur immediately after eating or within 15 minutes. Every meal. Lasts hours or the entire day. If she is resting at home, the pain will resolve within hours, but at work it can last the entire shift (10 to 13 hours). She thinks perhaps this is due to her activity. Leaning over hurts, touching it hurts. Per Jena's notes from last year, this has been ongoing for years and there was focal ttp in the RUQ just below the ribcage with a positive Carnett'ssign. GERD: Throat has been hurting, constant. Burning feeling. Heartburn 2x/wk. After lunch and dinner. No reflux. Protonix 20mg BID: Takes 30 minutes. Pretty consistent but occasionally misses AM dose. Needs refill. Has been out for a couple of weeks. Diet: Trying to do an anti-reflux diet. Trying to avoid tomatoes Salads - crispy chicken (fried), discontinued grilled chicken, onions & culp, no tomatoes. Slovak dressing - free meals from [employer] where she works. Sometimes doesn't have time to eat. Pizza - once in a while. Spaghetti with butter. Baked or grilled chicken. Lost 10 lbs and plateau, 240 lbs No ETOH. Currently oldest son is living with her and having lots of trouble with diabetes. As well as oldestson. Avoiding lactose, but sometimes eats ice cream. Occasional loose stools. Typically 3 BMs/day, can be formed or loose, often after eating. No discomfort. No blood in the stools. Review of systems: 14-point review of systems reviewed and negative except as above. My review of the patients's history and testing (labs, endoscopies, imaging) is summarized below: GI PROBLEMS: 1. GERD with long segment non-dysplastic Rodgers's (h/o Tyesha for paraesophageal hernia) 2. H pylori gastritis ?? Completed triple [...] 7. Abd wall pain of RUQ (+ Carnett's) 8. Dyspepsia (?) - post-prandial RUQ pain 9. Gas/bloat Diagnostic studies: 1. US abd [...] IgA neg, IgA nl. TSH nl. 6. EGD 08/21/18: Esophageal mucosal changes consistent with long- segment??Rodgers's esophagus. Erythematous mucosa in the stomach. One small, superficial non-bleeding duodenal ulceration. Recommendation: Continue Protonix daily to control acid reflux. Avoid NSAIDs. Pathology: Duodenal mucosa within normal limits, including preserved villous architecture. Gastric antral and fundic gland mucosa with H. pylori gastritis. Squamous esophageal and specialized metaplastic columnar mucosa consistent with Rodgers 's esophagus. No dysplasia is seen. Esophageal bx: Columnar mucosa consistent with specialized Rodgers metaplasia. No dysplasia is seen. 7. Colonoscopy 08/21/18: The examined portion of the ileum was normal. 7 polyps removed. Non-specific mild erythema and congested appearance to the colonic??mucosa. Biopsied. The distal rectum and anal verge??are normal on retroflexion view. Pathology: - Rectum, ??polypectomy: Hyperplastic polyp. -Ascending colon, ?? polypectomy: Tubular adenoma. - Descending colon, ?? polypectomy: Hyperplastic polyps. H - Random right colon, ?? biopsy: Colonic mucosa with mild crypt architectural distortion (see DISCUSSION). - Left colon, ??biopsy: Colonic mucosa with mild crypt architectural distortion (see DISCUSSION). - Rectum, ??biopsy: Colonic mucosa with mild crypt architectural distortion (see DISCUSSION). DISCUSSION ??Clinical and endoscopic correlation are required to rule out nonspecific postinflammatory changesor inactive idiopathic inflammatory bowel disease. Sirius red stains are negative for subepithelial basement membrane thickening. 8. Stool testing 11/22/18: stool H pylori antigen positive 02/25/19: Stool H pylori Ag negative. 9. Labs 02/20/19: Hep B sAg neg, Hep C Ab neg. 10. RUQ US 03/19/19: ??Diffusely increased hepatic parenchymal echotexture??with loss of portal triads without suspicious focal lesion with??areas of focal fatty??sparing in keeping with diffuse fattyinfiltration. 5 mm??simple left liver lobe??cyst. Normal gallbladder without sludge nor cholelithiasis. Normal biliary tree. 11. EGD and Colonoscopy 08/[address] Ji repeated for sore throat with swallowing, dyspepsia, gas/bloat. Normal colon biopsies. Non-dysplastic Rodgers's again found. Patient Active Problem List Diagnosis Code ??? [...] 06/2015 Z98.890 ??? Left ankle pain M25.572 Current Outpatient Medications: ??? diclofenac (VOLTAREN) 1 % Gel, Apply 2 g topically 4 times daily as needed., Disp: 100 g, Rfl: 1 ??? tetracycline (ACHROMYCIN;SUMYCIN) 500 mg Capsule, Take 1 capsule by mouth 4 times daily., Disp:56 capsule, Rfl: 0 ??? metroNIDAZOLE (FLAGYL) 250 mg Tablet, Take 1 tablet by mouth 4 times daily., Disp: 56 tablet, Rfl: 0 ??? pantoprazole (PROTONIX) 20 mg Tablet, Delayed Release (E.C.), Take 1 tablet by mouth 2 times daily (before meals)., Disp: 60 tablet, Rfl: 0 ??? meclizine (ANTIVERT) 12.5 mg Tablet, Take 12.5 mg by mouth 3 times daily as needed., Disp: , Rfl: ??? gabapentin (NEURONTIN) 100 mg Capsule, 400 mg. , Disp: , Rfl: 0 ??? pantoprazole (PROTONIX) 40 mg Tablet, Delayed Release (E.C.), take 1 tablet by mouth once daily, Disp: , Rfl: 0 ??? traZODone (DESYREL) 50 mg Tablet, , Disp: , Rfl: 0 ??? gabapentin (NEURONTIN) 300 mg Capsule, Take 200 mg by mouth nightly. , Disp: , Rfl: Allergies Allergen Reactions ??? Oxycodone Nausea And Vomiting Past Medical History: Diagnosis Date ??? PTSD (post-traumatic stress disorder) Past Surgical History: Procedure Laterality Date ??? DILATION AND CURETTAGE OF UTERUS 1994 ??? PRO COLONOSCOPY, BIOPSY N/A 08/21/2018 COLONOSCOPY FLEXIBLE, WITH BX (WRVU 3.66) performed by Erum Szymanski MD at [facility] ENDOSCOPY ??? PRO COLONOSCOPY, BIOPSY N/A 09/04/2019 COLONOSCOPY FLEXIBLE, WITH BX (WRVU 3.66) performed by Steve Ji MD at [facility] ENDOSCOPY ??? PRO COLONOSCOPY, DIAGNOSTIC N/A 09/04/2019 COLONOSCOPY, DIAGNOSTIC performed by Steve Ji MD at [facility] ENDOSCOPY ??? PRO COLONOSCOPY, REMV LESN, SNARE N/A 08/21/2018 COLONOSCOPY, POLYPECTOMY, REMOVAL LESION BY SNARE (WRVU 4.67) performed by Erum Szymanski MD at [facility] ENDOSCOPY ? ? PRO CYSTO W URETEROSCOPY &/OR PYELOSCOPY, DX Right 06/01/2015 CYSTOURETEROSCOPY, DIAGNOSTIC performed by Darius Nuñez Jr., MD at [facility] OR ??? PRO CYSTOSCOPY, INSERT URETERAL STENT Right 06/01/2015 CYSTO, STENT PLACEMENT performed by Darius Nuñez Jr., MD at [facility] OR ??? PRO LAP, ESOPHAGOGAST FUNDOPLASTY N/A 04/05/2015 LAPAROSCOPIC TYESHA FUNDOPLASTY performed by Valentín Moura MD at [facility] OR ??? PRO PERCUT DILATN RENAL TRACT Right 06/01/2015 PERCUTANEOUS INTRO GUIDE WIRE TO ACCESS RENAL PELVIS,AND OR URETER, W\DILATION performed by Darius Nuñez Jr., MD at [facility] OR ??? PRO PERCUT REMV KID STONE, UP TO 2 CM Right 06/01/2015 NEPHROLITHOTOMY, ([facility]) PERCUTANEOUS performed by Darius Nuñez Jr., MD at [facility] OR ??? PRO UPPER GI ENDOSCOPY, BIOPSY N/A 01/27/2015 EGD WITH BIOPSY performed by Brandt Barlow MD at [facility] ENDOSCOPY ??? PRO UPPER GI ENDOSCOPY, BIOPSY N/A 02/28/2016 EGD WITH BIOPSY performed by Brandt Barlow MD at [facility] ENDOSCOPY ??? PRO UPPER GI ENDOSCOPY, BIOPSY N/A 09/04/2016 EGD WITH BIOPSY performed by Brandt Barlow MD at [facility] ENDOSCOPY ??? PRO UPPER GI ENDOSCOPY, BIOPSY N/A 09/24/2017 EGD WITH BIOPSY (WRVU 2.49) performed by Brandt Barlow MD at [facility] ENDOSCOPY ??? PRO UPPER GI ENDOSCOPY, BIOPSY N/A 08/21/2018 EGD WITH BIOPSY (WRVU 2.49) performed by Erum Szymanski MD at [facility] ENDOSCOPY ??? PRO UPPER GI ENDOSCOPY, BIOPSY N/A 09/04/2019 UPPER GASTROINTESTINAL ENDOSCOPY,WITH BIOPSY SINGLE OR MULTIPLE (WRVU 2.49) performed by Steve Ji MD at [facility] ENDOSCOPY ??? PRO UPPER GI ENDOSCOPY, DIAGNOSTIC N/A 09/04/2019 EGD, UPPER GI ENDOSCOPY performed by Steve Ji MD at [facility] ENDOSCOPY ??? TONSILLECTOMY Social History Socioeconomic [...] Years: 6.00 Pack years: 3.00 Types: Cigarettes Last attempt to quit: 01/25/1997 Years since quittin. ??? Smokeless tobacco: Never Used Substance and Sexual Activity ??? Alcohol use: Yes Comment: 1X/quarter ??? Drug use: No ??? Sexual activity: Yes Partners: Male control/protection: Surgical Lifestyle ??? Physical activity Days per week: Not on file Minutes per session: Not on file ??? Stress: Not on file Relationships ??? Social connections Talks on phone: Not on file Gets together: Not on file Attends anabaptist service: Not on file Active member of [...] Grandmother ??? Diabetes Maternal Grandfather Physical Exam: No physical exam performed during this phone visit. PERTINENT LABS AND IMAGING: As noted above Impression: 44 y.o. female following up for GERD, chronic diarrhea and focal RUQ pain. 1. Chronic RUQ pain: Very focal. Long duration of pain and exacerbation with activity is not typical of biliary pain. + Carnett's sign noted previously. Suspicious for abd wall pain as one component of this. Post-prandial nature does suggest a GI etiology as well. I do think it's reasonable to do aCCK HIDA scan but would favor functional dyspepsia here. Prior RUQ u/s negative and EGD unremarkable. 2. GERD. Worse given she's run out of her medications. Ongoing dietary triggers. 3. Lactose intolerance. Occasional loose stools - likely dietary. Plan: ?? Pain clinic - referral for evaluation of possible trigger point injection given the focal natureof her pain ?? If not an option, we can consider starting a TCA or adjusting neurontin ?? HIDA scan to check gallbladder EF ?? animal care supervisor lactaid pills to take prior to ice cream ?? Resume protonix 20mg twice a day ?? Previously failed pepcid, prilosec ?? Get gaviscon liquid to use after meals and at bedtime if needed ?? For reflux and weight management, eat small frequent meals (avoid fasting for prolonged periods). Avoid fried foods and red sauces. ?? Stay upright for 3 hours after eating ?? Continue to avoid alcohol ?? Continue efforts at weight loss. For liver health, goal is 10% of body weight, so about 15 more pounds ?? Aim for some exercise (walking) daily to boost metabolism ?? Consider smoothies (lactose-free) ?? Consider Shakeology ?? Try: Protein powder, almond milk, yogurt (lactose-free), bananas, peanut butter or other ?? If bothersome gas/bloat can consider trial of a probiotic, scheduling HBT ?? Upper endoscopy and colonoscopy 08/2022 for surveillance Follow-up in: 4 months The risks, benefits and alternatives were discussed with the patient who understands and agrees with above. Patient verbally consents to this telephone visit and understands that this visit may be billed, similar to a clinic office visit. I provided care to the patient today via telephone call, greater than 20 minutes of this 40 minute telephone visit was spent in discussion with patient on above. Erum Szymanski MD 03/07/20 Erum Szymanski MD [employer] machine tender Section of Gastroenterology and Hepatology [email or web address] documented in this encounter Plan of Treatment Upcoming Encounters Date Type Department Care Team (Late st Contact Info) Description 12/31/2024 10:00 AM EST [place] [address] Mercy Amanda MD [facility] [address] 04/01/2025 2:00 PM EDT Office [place] [address] Erum Szymanski MD [facility] GASTROENTEROLOGY [place], [place] [id number] Scheduled Referrals Name Type Priority Associated Diagnoses Orde r Schedule Referral to Pain and Spine Center (Internal only) Outpatient Referral Routine Chronic RUQ pain Ordered: 03/08/2020 documented as of this encounter Results * NM Functional Biliary [...] of the abdomen was obtained in the INDONESIAN projection 60 minutes later. Sincalide was then [...] of the abdomen was obtained in the INDONESIAN projection 60minutes later. Sincalide was then administered [...] contact the number below. 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
--- OUTSIDE RECORDS SUMMARY | 2024-10-16 17:40 | XMS_ITS | Encounter Summary ---
[place] [address] Care Team Providers Care Political Consultant Name Role Phone Sonido Cordoba Primary Care Provider +1- [phone] Encounter Details Date Type Department Care Team (Late st Contact Info) Description 03/08/2020 Telephone [place] [address] Melina Hobbs CMA GASTROENTEROLOGY DEPT Social History [...] Telephone Encounter - Melina Hobbs CMA - 03/08/2020 9:49 AM EDT Called patient to review medications and allergies for their upcoming gastroenterology Type of Appointment: Phone appointment. Reach Patient during MA Check: Yes Notes for the provider: Notes for the nurse: : documented in this encounter Plan of Treatment Upcoming Encounters Date Type Department Care Team (Late st Contact Info) Description 12/31/2024 10:00 AM EST Office [place] [address] Mercy Amanda MD [facility] [address] [facility] [address] 04/01/2025 2:00 PM EDT Office [place] [phone] Erum Szymanski MD [facility] [place] [address] documented as of this encounter Visit Diagnoses Not on filedocumented in this encounter Care Teams Political Consultant Relationship Specialty Start Date End Date Sonido Cordoba PA [address] [place] [address] PCP - General Family Medicine 11/16/15 06/22/20 documented as of this encounter
--- OUTSIDE RECORDS SUMMARY | 2024-10-16 17:40 | XMS_ITS | Encounter Summary ---
Author Organization [facility] [place] [address] Care Team Providers Care Metal Shaping Machine Operator Name Role Phone Sondio Cordoba Primary Care Provider +1- [phone] Reason for Visit * Auth/Cert Specialty Diagnoses / Procedures Referred By Aric madrigal Referred To Contact Diagnoses Right peroneal tendon tear Procedures PRO REPAIR PERONEAL TENDONS PERONEAL TENDON REPAIR (WRVU 7.35) Referral ID Status Reason Start Date Expiration Date Visits Re quested Visits Authorized [id number] 1 1 Encounter Details Date Type Department Care Team (Late st Contact Info) Description 08/12/2020 8:50 AM EDT - 08/12/2020 10:34 AM EDT Surgery [place] [address] Mani Rowe MD [facility] [place] [address] PERONEAL TENDON REPAIR (WRVU 7.35) Social History Tobacco Use Types Packs/Day Years [...] closest emergency room or call the hospital numerical control machine tool operator at [phone] and ask for physician wigs salesperson covering for your physician. Questions or problems after 5pm or on a weekend: Call the [facility] numerical control machine tool operator at and ask for the physician wigs salesperson covering for your doctor. At 8:10 am [...] after hours and ask for the anesthesiologist wigs salesperson. * Patient Instructions* Noé Almanza MD - 08/12/2020 8:52 AM EDT Orthopaedic Surgery Discharge Instructions PROCEDURE: Right Peroneal Tendon Repair MEDICATION: ?? If you need a renewal of your pain medication, please contact the clinic at [phone]. PRESCRIPTION RENEWAL REQUEST CAN TAKE UP TO [...] taking them. You should also take an idke-flb-xrieapo stool softener, colace or senna, to facilitate [...] You will have a follow-up appointment with [facility] as indicated below in Future Appointment and Orders. Please call to verify your appointment. Future Appointments Date Time Provider Department Center 08/25/2020 10:30 AM Gracy Ellis PA [facility] 09/29/2020 8:30 AM [facility] ROOM 5 [facility] Rad 09/29/2020 9:30 AM Darius Nuñez Jr., MD [facility]RO [facility] If you have questions or concerns: Sunday [...] Both are aware of getting RX at [facility]. 1104-- tall walker boot applied by Caleb León RN. Pt taken out to private car, crutches sent with pt. Assisted out by nursing staff * Berkley Logan RN - 08/11/2020 3:26 PM EDT During this call the patient was questioned regarding travel outside of [place] states, fever, cough, SOB or other illness in [...] again, temperature will be taken, patient and caregiver/long haul truck driver will be given a mask to wear the entire time they are in the [facility] building. * Daysi Lizarraga RN - 08/05/2020 2:49 PM EDT During this call the patient was questioned regarding travel outside of [facility], fever, cough, SOB or other illness [...] again, temperature will be taken, patient and caregiver/long haul truck driver will be given a mask to [...] Rowe MD - 08/12/2020 10:09 AM EDT [facility] Operative Note Patient Name: Vianney Cordero : [id number] MR#: [id number] Case Date: 08/12/2020 Surgeon: Surgeon(s) and Role: [...] AM EST Office [place] [address] Mercy Amanda MD [facility] [place] [address] 04/01/2025 2:00 PM EDT Office Visit [place] [address] Erum Szymanski MD [facility] [place] [address] documented as of this encounter Procedures Procedure Name Priority Date/Time Associated Diagnosis Comments Repair Peroneal Tendons (05863) 08/12/2020 8:53 AM EDT Right peroneal tendon [...] Given 08/12/2020 8:11 AM EDT 1,000 mg fentaNYL (PF) 50 mcg/mL injection 50 mcg, Intravenous, EVERY 5 MIN PRN, Starting on Brittny 08/12/20 at 0806, Until Brittny 10 at 1104, Pain, or prior to injection of local anesthetic., Hold for respiratory rate less than 8 breaths per minute. (maximum dose 200 mcg), Day of Surgery (Day of Procedure), Routine Given 08/12/2020 8:26 AM EDT 25 mcg Given 08/12/2020 8:17 AM EDT 50 mcg lactated ringers infusion 1,000 mL, at 100 mL/hr, Intravenous, CONTINUOUS, Starting on Brittny 08/12/20 at 0745, Until Brittny 08/12/20 at 1104, Day of Surgery (Day of Procedure) New Bag 08/12/2020 8:04 AM EDT 1,000 mLs 100 mL/hr midazolam (PF) (VERSED) injection 1 mg 1 mg, Intravenous, EVERY 5 MIN PRN, Starting on Brittny 10 at 0806, Until Brittny 10 at 1104, Sleep, or prior to injection of local anesthetic, Hold for delirium/agitation. (Maximum dose 5 mg)., Day of Surgery (Day of Procedure), Routine Given 08/12/2020 8:26 AM EDT 0.5 mg Given 08/12/2020 8:17 AM EDT 1 mg documented in this encounter Active and Recently [...] Suspected): Prophylaxis 09 (Given - Provid er: Croy Staples DO) Continuous Medication Order 08/10/2020 08/11/2020 08/12/2020 lactated ringers infusion (CANCELED) 1,000 mL, at 100 mL/hr, Intravenous, CONTINUOUS, Starting on Brittny 08/12/20 at 0745, Until Brittny 08/12/20 at 1104, Day of Surgery (Day of Procedure) 08 ([facility] ider: Yue Brito RN) PRN Medication Order [...] EVERY 5 MIN PRN, Starting on Brittny 08/12/20 at 0806, Until Brittny 08/12/20 at 1104, Pain, or prior to injection of local anesthetic., Hold for respiratory rate less than 8 breaths per minute. (maximum dose 200 mcg), Day of Surgery (Day of Procedure), Routine 08 (Given - Provid er: Yue Brito RN)825 (Given - Provider: Yue Brito RN) midazolam (PF) (VERSED) injection 1 mg (CANCELED) 1 mg, Intravenous, EVERY 5 MIN PRN, Starting on Brittny 10 at 0806, Until Brittny 08/12/20 at 1104, Sleep, or prior to injection of local anesthetic, Hold for delirium/agitation. (Maximum dose 5 mg)., Day of Surgery (Day of Procedure), Routine 816 (Given - Provid er: Yue Brito RN)825 (Given - Provider: Yue Brito RN) traMADoL (Ultram) tablet 50 mg 50 mg, Oral, EVERY 6 HOURS PRN, Starting on Brittny 08/12/20 at 1004, Until Brittny 08/12/20 at 1306, Pain, Routine documented in this encounter Care Teams Metal Shaping Machine Operator Relationship Specialty Start Date End Date Sonido Cordoba PA [address] [place] [address] PCP - General Family Medicine 07/06/20 documented as of this encounter
--- OUTSIDE RECORDS SUMMARY | 2024-10-16 17:40 | XMS_ITS | Encounter Summary ---
[place] [address] Care Team Providers Care Buffing Wheel Former Automatic Name Role Phone Sonido Cordoba Primary Care Provider +1- [phone] Reason for Visit * Diagnostic Test (Routine) - Closed Specialty Diagnoses / Procedures Referred By Aric madrigal Referred To Contact Radiology Diagnoses Chronic RUQ pain Procedures NM Functional Biliary Scan Erum Szymanski MD [facility] [place] [address] [place] [address] Referral ID Status Reason Start Date Expiration Date V isits Requested Visits Authorized [id number] Closed Specialty Service Requested 03/08/2020 09/08/2021 2 2 Encounter Details Date Type Department Care Team (Latest Contact Info) Description 03/30/2020 10:05 AM EDT - 03/30/2020 11:59 PM EDT Hospital Encounter [place] [address] Erum Szymanski MD [facility] [place] [address] Discharge Disposition: Home Social History [...] AM EST Office [place] [address] Mercy Amanda MD [facility] DR [facility] [address] 04/01/2025 2:00 PM EDT Office [place] [address] Erum Szymanski MD [facility] [place] [address] documented as of this encounter Procedures Procedure Name Priority Date/Time Associated Diagnosis Comments NM FUNCTIONAL BILIARY SCAN Routine 03/30/2020 11:51 AM EDT Chronic RUQ pain documented in this encounter Visit Diagnoses Not on filedocumented in this encounter Administered Medications Inactive Administered Medications - up to 3 most recent administrations Medication Order MAR Action Action Date Dose Rate Site sincalide (KINEVAC) injection 1.3 mcg 1.3 mcg, Intravenous, ONCE, 1 dose, On Sun03/30/20 at 1115 Given 03/30/2020 11:08 AM EDT 1.3 mcg Righ t Arm documented in this encounter Care Teams Buffing Wheel Former Automatic Relationship Specialty Start Date End Date Sonido Cordoba PA [address] [place] [address] PCP - General Family Medicine 11/16/15 06/22/20 documented as of this encounter
--- OUTSIDE RECORDS SUMMARY | 2024-10-16 17:40 | XMS_ITS | Encounter Summary ---
[place] [address] Care Team Providers Care Membership Correspondent Name Role Phone Sonido Cordoba Primary Care Provider +1- [phone] Reason for Referral * Physical Therapy (Routine) - Closed Specialty Diagnoses / Procedures Referred By Aric madrigal Referred To Contact Physical Therapy Diagnoses Peroneal tendinitis, right Lizbeth Guzman APRN [facility] [place] [address] Physical Therapy, Harish Moore [facility]UDI [facility],[address] [address] Referral ID Status Reason Start Date Expiration Date V isits Requested Visits Authorized [id number] Closed Evaluate and Treat 09/30/2019 03/28/2020 24 24 Reason for Visit * Reason Onset Date Comments Results 09/30/2019 Encounter Details Date Type Department Care Team (Late st Contact Info) Description 09/30/2019 [place] [id number] Lizbeth Guzman APRN [facility] ORTHOPAEDIC [place] [address] Results Social History Tobacco Use Types Packs/Day Years [...] encounter Miscellaneous Notes * Telephone Encounter - Randa Us - 10/07/2019 10:00 AM EST Patient called back after another dropped call, stating she would like her PT referral sent to [facility] in [facility]. Routed to their office via [employer]. Vianney Cordero verbalized understanding. No further questions or concerns at this time. * Telephone Encounter - Sunita Leigh RN - 10/07/2019 9:56 AM EST Please contact patient to find out where to sent PT referral. Call kept dropping when she called this am. Thanks. * Telephone Encounter - Lizbeth Guzman APRN - 09/30/2019 4:53 PM EST Called PT with MRI scan results. I would recommend starting with PT for this type of tear including peroneal strengthening, proprioceptive work and modalities . We can f/u about 6-8 weeks post PT to discuss treatment options further. I left her a detailed message on her voice mail to discuss further. I will also place a PT order in [facility]. RIGHT ANKLE: FINDINGS: Tendons: The Achilles tendon is normal in morphology and signal. ?? Thickening and intermediate signal the plantar fascia which measures 6 mm. There is a small amount of fluid signal along the undersurface of the origin of the central band of the plantar fascia (series 7, image 30). Findings are consistent with plantar fasciitis. ?? No disruption of the medial flexor anterior extensor tendons. ?? Longitudinal split tear of the peroneus brevis tendon in the retromalleolar groove and near the tip of the lateral malleolus (series 6, image 16 and 18). There is reconstitution of the peroneus brevis at the level of the calcaneal cuboid joint. No disruption of the peroneus longus. ?? Ligaments: The anterior talofibular and posterior talofibular ligaments are intact. The calcaneofibular ligament is intact. ?? Anterior tibiofibular and posterior tibiofibular ligaments are intact. ?? The deep deltoid ligament fibers are intact. The tibial spring and spring ligament are intact. ?? Bones, cartilage, joints: No acute fractures identified. No osteochondral lesion. There is cartilage irregularity and the medial corner of the tibial plafond (series 7, image 22). ?? Muscles and soft tissues: Normal bulk and signal of visualized muscles. ?? Normal fat signal in the sinus tarsi. ?? No solid or cystic compressive lesion in the tarsal tunnel. ?? IMPRESSION 1. Longitudinal split tear of the peroneus brevis in the retromalleolar groove with reconstitution at the level of the calcaneal cuboid joint. ?? 2. MR findings consistent with plantar fasciitis. ?? 3. Early tibiotalar chondrosis. ?? documented in this encounter Plan of Treatment Upcoming Encounters Date Type Department Care Team (Late st Contact Info) Description 12/31/2024 10:00 AM EST [place] [address] Mercy Amanda MD [facility] [address] [place] [address] 04/01/2025 2:00 PM EDT Office [place] [phone] Erum Szymanski MD [facility] [place] [address] Scheduled Referrals Name Type Priority Associated Diagnoses Orde r Schedule Referral to Physical Therapy Outpatient Referral Routine Peroneal tendinitis, right Ordered: 09/30/2019 documented as of this encounter Visit Diagnoses Diagnosis Peroneal tendinitis, right- Primary documented in this encounter Care Teams Membership Correspondent Relationship Specialty Start Date End Date Sonido Cordoba PA [address] [place] [address] PCP - General Family Medicine 11/16/15 06/22/20 documented as of this encounter
--- OUTSIDE RECORDS SUMMARY | 2024-10-16 17:41 | XMS_ITS | Encounter Summary ---
Author Organization [facility] Address [facility] [place] [address] Care Team Providers Care Computer Systems Security Administrator Name Role Phone Sonido Cordoba Primary Care Provider +1- [phone] Encounter Details Date Type Department Care Team (Latest Contact Info) Description 09/03/2019 1:30 PM EDT - 09/03/2019 11:59 PM EDT Hospital Encounter XRay at [address] [place] [address] Lizbeth Guzman APRN [facility] ORTHOPAEDIC [place] [address] Right foot pain Discharge Disposition: Home Social History Tobacco Use Types Packs/Day Years Used Date Smoking Tobacco: Former Cigarettes 0.5 6 0 01/25/1991 - 01/25/1997 Smokeless Tobacco: Never Alcohol Use Standard Drinks/Week Comments No 0 (1 standard drink = 0.6 oz [...] AM EST Office [place] [address] Mercy Amanda MD [facility] [place] [address] 04/01/2025 2:00 PM EDT Office [place] [phone] Erum Szymanski MD [facility] [place] [address] documented as of this encounter Procedures Procedure Name Priority Date/Time Associated Diagnosis Comments XR FOOT MIN 3 VIEWS RIGHT Routine 09/03/2019 1:46 PM EDT Right foot pain documented in this encounter Results * XR Foot Min 3 views Right (Generic) (09/03/2019 1:46 PM EDT) Anatomical Region Laterality Modality Foot Right Digital Radiogra phy Impressions 09/03/2019 2:32 PM EDT Stable plantar calcaneal spur. No acute osseous abnormality. Thank you for letting us participate in the care of this patient. For questions regarding this report, please contact the number below. ? Narrative 09/03/2019 2:32 PM EDT EXAMINATION: XR FOOT MIN 3 VIEWS RIGHT (GENERIC) CLINICAL HISTORY: Right foot pain TECHNIQUE: 3 views RIGHT foot COMPARISON: 03/19/2019 FINDINGS: There is no acute fracture, nor evidence of a stress fracture. Bone mineralization is within normal limits. There is a plantar calcaneal spur, as seen on the prior exam. Procedure Note Karely Ruiz MD - 09/03/2019 EXAMINATION: XR FOOT MIN 3 VIEWS RIGHT (GENERIC) CLINICAL HISTORY: Right foot pain TECHNIQUE: 3 views RIGHT foot COMPARISON: 03/19/2019 FINDINGS: There is no acute fracture, nor evidence of a stress fracture. Bone mineralization is within normal limits. There is a plantar calcaneal spur,as seen on the prior exam. IMPRESSION Stable plantar calcaneal spur. No acute osseous abnormality. Thank you for letting us participate in the care of this patient. Forquestions regarding this report, please contact the number below. Lizbeth Guzman LOCK MAINTENANCE SUPERVISOR IMG DX ORDERABLES documented in this encounter Visit Diagnoses Diagnosis Right foot pain Pain in limb documented in this encounter Care Teams Computer Systems Security Administrator Relationship Specialty Start Date End Date Sonido Cordoba PA [address] [place] [address] PCP - General Family Medicine 11/16/15 06/22/20 documented as of this encounter
--- OUTSIDE RECORDS SUMMARY | 2024-10-16 17:41 | XMS_ITS | Encounter Summary ---
Author Organization [facility] [place] [address] Care Team Providers Care Medical Diagnostic Radiographer Name Role Phone Sonido Cordoba Primary Care Provider [phone]- [phone] Encounter Details Date Type Department Care Team (Late st Contact Info) Description 08/21/2018 10:00 AM EDT - 08/21/2018 11:15 AM EDT Surgery [place] [address] Erum Szymanski MD [facility] [place] [address] COLONOSCOPY FLEXIBLE, WITH BX (WRVU 3.56) Social History Tobacco Use Types Packs/Day Years [...] Sign Reading Time Taken Comments Blood Pressure 142/90 08/21/2018 11:15 AM EDT Pulse 73 08/21/2018 11:15 AM EDT Temperature 37 ??C (98.6 ??F) 08/21/2018 9:28 AM EDT Respiratory Rate 12 08/21/2018 11:15 AM EDT Oxygen Saturation 100% 08/21/2018 11:15 AM EDT Inhaled Oxygen Concentration - - Weight - - Height - - Body Mass Index - - documented in this encounter Discharge Instructions * Discharge Instructions* Magnolia Anguiano RN - 08/21/2018 11:31 AM EDT Please call [phone] before 8pm Mon-Fri with problems, questions or concerns. If you call after 8pm or on weekends, call the Hospital at [phone] and ask to speak to the Health Plan Advisor medtronics technician and the mixing tank operator will contact that person for you. * Attachments The following attachments cannot be sent through Care Everywhere. * COLONOSCOPY: POST-OP (BERMUDIAN) * COLON POLYPS (BERMUDIAN) * EGD (UPPER ENDOSCOPY): POST-OP (BERMUDIAN) * JEAN BAPTISTE'S ESOPHAGUS (BERMUDIAN) documented in this encounter Medications at Time of Discharge Medication Sig Dispensed Refills Start Date End Date meclizine (ANTIVERT) 12.5 mg Tablet Take 12.5 mg by mouth 3 times daily as needed. Ketamine (Bulk) 100 % Powd 5 %, Gabapentin (Bulk) 100 % Powd 6 %, Diclofenac Sodium (Bulk) 100 % Powd 3 %, Lidocaine HCl (Bulk) 100 % Powd 5 % Apply topically 4 times daily. 240 g 3 03/24/2016 09/03/2019 gabapentin (NEURONTIN) 100 mg Capsule 400 mg. 0 02/08/2016 08/12/2020 pantoprazole (PROTONIX) 40 mg Tablet, Delayed Release (E.C.) take 1 tablet by mouth once daily 0 03/10/2016 03/08/2020 traZODone (DESYREL) 50 mg Tablet nightly as needed. 0 02/08/2016 4 gabapentin (NEURONTIN) 300 mg Capsule Take 200 mg by mouth nightly. 08/12/2020 documented as of this encounter H&P Notes * Erum Szymanski MD - 08/21/2018 9:47 AM EDT Patient Name: Vianney Cordero Patient Age: 42 y.o. Birthdate: 1975 Admit date: 08/21/2018 Attending Physician: Erum Szymanski MD Gastroenterology and Hepatology Pre-Procedure History and Physical Exam Procedure: EGD: Colonoscopy: Indication: Jean Baptiste's esophagus, RUQ abd pain, chronic diarrhea. Mother with FHx CRC age > 60 Patient Active Problem List Diagnosis Code ??? Elbow pain, right M25.521 ??? Dyspepsia R10.13 ??? 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 Hiatal hernia K44.9 ??? Obesity E66.9 ??? Pain in left shoulder M25.512 ??? Right knee pain M25.561 ??? Hx of tonsillectomy Z90.89 ??? History of dilation and curettage Z98.890 ??? History of Addie fundoplication 06/2015 Z98.890 ??? Left ankle pain M25.572 EXAM: HEENT: Airway examined, oropharynx clear Mallampati Score: II (soft palate, uvula, fauces visible) LUNGS: Clear to auscultation HEART: Regular rate and rhythm, normal S1, S2 ABDOMEN: Normal bowel sounds, soft, non tender, non distended, A/P Proceed with the planned endoscopic procedure. ASA 2 - Patient with mild systemic disease with no functional limitations Sedation Plan: moderate (conscious sedation) Risks and benefits of the procedure explained to the patient. Consent signed. documented in this encounter Plan of Treatment Upcoming Encounters Date Type Department Care Team (Late st Contact Info) Description 12/31/2024 10:00 AM EST Office Visit [place] [address] Mercy Amanda MD [facility] DR [facility] [place], [place] [id number] 04/01/2025 2:00 PM EDT Office Visit [place] [address] Erum Szymanski MD [facility] [place] [address] documented as of this encounter Procedures Procedure Name Priority Date/Time Associated Diagnosis Comments SPECIMEN TO PATHOLOGY Routine 08/21/2018 11:20 AM EDT SPECIMEN TO PATHOLOGY Routine 08/21/2018 11:20 AM EDT SPECIMEN TO PATHOLOGY Routine 08/21/2018 11:20 AM EDT SPECIMEN TO PATHOLOGY Routine 08/21/2018 11:20 AM EDT SPECIMEN TO PATHOLOGY Routine 08/21/2018 11:20 AM EDT SPECIMEN TO PATHOLOGY Routine 08/21/2018 11:20 AM EDT SPECIMEN TO PATHOLOGY Routine 08/21/2018 11:20 AM EDT SPECIMEN TO PATHOLOGY Routine 08/21/2018 11:20 AM EDT SPECIMEN TO PATHOLOGY Routine 08/21/2018 11:20 AM EDT SPECIMEN TO PATHOLOGY Routine 08/21/2018 11:20 AM EDT SPECIMEN TO PATHOLOGY Routine 08/21/2018 11:20 AM EDT SPECIMEN TO PATHOLOGY Routine 08/21/2018 11:20 AM EDT SPECIMEN TO PATHOLOGY Routine 08/21/2018 11:20 AM EDT SURGICAL PATHOLOGY REPORT Routine 08/21/2018 10:36 AM EDT COLONOSCOPY, POLYPECTOMY, REMOVAL LESION BY SNARE (WRVU 4.57) 08/21/2018 9:53 AM EDT Jean Baptiste's esophagus without dysplasia Diarrhea, unspecified type EGD WITH BIOPSY (WRVU 2.39) 08/21/2018 9:53 AM EDT Jean Baptiste's esophagus without dysplasia Diarrhea, unspecified type COLONOSCOPY FLEXIBLE, WITH BX (WRVU 3.56) 08/21/2018 9:53 AM EDT Jean Baptiste's esophagus without dysplasia Diarrhea, unspecified type UPPER GI ENDOSCOPY Routine 08/21/2018 9: 37 AM EDT COLONOSCOPY Routine 08/21/2018 8:39 AM EDT documented in this encounter Results * Specimen to Pathology (08/21/2018 11:20 AM EDT) AP Specimen 08/21/2018 11:2 0 AM EDT 08/21/2018 11:20 AM EDT Narrative [facility] - 08/21/2018 11:20 AM EDT Specimen requisition ordered. ??Separate Pathology report to follow Erum Szymanski MD PATHOLOGY/CYTOLOGY O ZHANNA [facility] [place] [address] * Specimen to Pathology (08/21/2018 11:20 AM EDT) AP Specimen 08/21/2018 11:2 0 AM EDT 08/21/2018 11:20 AM EDT Narrative [facility] - 08/21/2018 11:20 AM EDT Specimen requisition ordered. ??Separate Pathology report to follow Erum Szymanski MD PATHOLOGY/[place] [address] * Specimen to Pathology (08/21/2018 11:20 AM EDT) AP Specimen 08/21/2018 11:2 0 AM EDT 08/21/2018 11:20 AM EDT Narrative [facility] - 08/21/2018 11:20 AM EDT Specimen requisition ordered. ??Separate Pathology report to follow Erum Szymanski MD PATHOLOGY/[place] [address] * Specimen to Pathology (08/21/2018 11:20 AM EDT) AP Specimen 08/21/2018 11:2 0 AM EDT 08/21/2018 11:20 AM EDT Narrative [facility] - 08/21/2018 11:20 AM EDT Specimen requisition ordered. ??Separate Pathology report to follow Erum Szymanski MD PATHOLOGY/[place] [address] * Specimen to Pathology (08/21/2018 11:20 AM EDT) AP Specimen 08/21/2018 11:2 0 AM EDT 08/21/2018 11:20 AM EDT Narrative [facility] - 08/21/2018 11:20 AM EDT Specimen requisition ordered. ??Separate Pathology report to follow Erum Szymanski MD PATHOLOGY/CYTOLOGY O ZHANNA Performing Organization Address City/[facility]/[place] [address] * Specimen to Pathology (08/21/2018 11:20 AM EDT) AP Specimen 08/21/2018 11:2 0 AM EDT 08/21/2018 11:20 AM EDT Narrative [facility] - 08/21/2018 11:20 AM EDT Specimen requisition ordered. ??Separate Pathology report to follow Erum Szymanski MD PATHOLOGY/[place] [address] * Specimen to Pathology (08/21/2018 11:20 AM EDT) AP Specimen 08/21/2018 11:2 0 AM EDT 08/21/2018 11:20 AM EDT Narrative [facility] - 08/21/2018 11:20 AM EDT Specimen requisition ordered. ??Separate Pathology report to follow Erum Szymanski MD PATHOLOGY/CYTOLOGY O ZHANNA Performing Organization Address City/[facility]/[place] [address] * Specimen to Pathology (08/21/2018 11:20 AM EDT) AP Specimen 08/21/2018 11:2 0 AM EDT 08/21/2018 11:20 AM EDT Narrative [facility] - 08/21/2018 11:20 AM EDT Specimen requisition ordered. ??Separate Pathology report to follow Erum Szymanski MD PATHOLOGY/CYTOLOGY O ZHANNA Performing Organization Address City/[facility]/[place] [address] * Specimen to Pathology (08/21/2018 11:20 AM EDT) AP Specimen 08/21/2018 11:2 0 AM EDT 08/21/2018 11:20 AM EDT Narrative [facility] - 08/21/2018 11:20 AM EDT Specimen requisition ordered. ??Separate Pathology report to follow Erum Szymanski MD PATHOLOGY/CYTOLOGY O ZHANNA Performing Organization Address [facility]/[place] [address] * Specimen to Pathology (08/21/2018 11:20 AM EDT) AP Specimen 08/21/2018 11:2 0 AM EDT 08/21/2018 11:20 AM EDT Narrative [facility] - 08/21/2018 11:20 AM EDT Specimen requisition ordered. ??Separate Pathology report to follow Erum Szymanski MD PATHOLOGY/CYTOLOGY O RDERABLES Performing Organization Address City/[facility]/[place] [address] * Specimen to Pathology (08/21/2018 11:20 AM EDT) AP Specimen 08/21/2018 11:2 0 AM EDT 08/21/2018 11:20 AM EDT Narrative [facility] - 08/21/2018 11:20 AM EDT Specimen requisition ordered. ??Separate Pathology report to follow Erum Szymanski MD PATHOLOGY/CYTOLOGY O RDFANTA Performing Organization Address [facility] [place] [place] [address] * Specimen to Pathology (08/21/2018 11:20 AM EDT) AP Specimen 08/21/2018 11:2 0 AM EDT 08/21/2018 11:20 AM EDT Narrative [facility] - 08/21/2018 11:20 AM EDT Specimen requisition ordered. ??Separate Pathology report to follow Erum Szymanski MD PATHOLOGY/CYTOLOGY O RDFANTA Performing Organization Address [facility]/[place] [address] * Specimen to Pathology (08/21/2018 11:20 AM EDT) AP Specimen 08/21/2018 11:2 0 AM EDT 08/21/2018 11:20 AM EDT Narrative [facility] - 08/21/2018 11:20 AM EDT Specimen requisition ordered. ??Separate Pathology report to follow Erum Szymanski MD PATHOLOGY/CYTOLOGY O RDFANTA Performing Organization Address City/[facility]/[place] [address] * Surgical Pathology Report (08/21/2018 10:36 AM EDT) Final Diagnosis [id number] ? Location: 4T; EA11; A The signing pathologist has (i) examined the relevant preparation(s) for the specimen(s) and (ii) rendered or confirmed the diagnosis(es). . ?Surgical Pathology DIAGNOSIS A - Duodenum, ??biopsy: Duodenal mucosa within normal limits, including preserved villous architecture. B - Stomach, ??biopsy: Gastric antral and fundic gland mucosa with H. pylori gastritis. C - At 35, ??biopsy: Squamous esophageal and specialized metaplastic columnar mucosa consistent with Jean Baptiste 's esophagus. No dysplasia is seen. D - At 33, ??biopsy: Columnar mucosa consistent with specialized Jean Baptiste metaplasia. No dysplasia is seen. E - At 31, ??biopsy: Columnar mucosa consistent with specialized Jean Baptiste metaplasia. No dysplasia is seen. F - At 29, ??biopsy: Columnar mucosa consistent with specialized Jean Baptiste metaplasia. No dysplasia is seen. G - At 27, ??biopsy: Columnar mucosa consistent with specialized Jean Baptiste metaplasia. No dysplasia is seen. H - Random right colon, ?? biopsy: Colonic mucosa with mild crypt architectural distortion (see DISCUSSION). I - Ascending colon, ?? polypectomy: Tubular adenoma. J - Descending colon, ?? polypectomy: Hyperplastic polyps. K - Left colon, ??biopsy: Colonic mucosa with mild crypt architectural distortion (see DISCUSSION). L - Rectum, ??biopsy: Colonic mucosa with mild crypt architectural distortion (see DISCUSSION). M - Rectum, ??polypectomy: Hyperplastic polyp. Electronically signed by: ??Ayad Dee MD Verified: ??08/22/2018 ?Pathologist Performed at: ??-[facility] Dept. of Pathology, [place], [place] DISCUSSION H,K,L. ??Clinical and endoscopic correlation are required to rule out nonspecific postinflammatory changes or inactive idiopathic inflammatory bowel disease. Sirius red stains are negative for subepithelial basement membrane thickening. CLINICAL INFORMATION Specimen Submitted: . CLINICAL INFORMATION A - Duodenum bx 's ro celiac B - Gastric bx 's ro hpylori C - Bx 's @ 35 D - Bx 's @ 33 E - Bx 's @ 31 F - Bx 's @ 29 G - Bx 's @ 27 H - Random right colon bx ??'s - normal appearing colon, ro microscopic colitis I - Ascending colon polyp J - Descending colon polyps K - Left colon bx 's L - Rectal bx 's M - Rectal polyps Clinical History and Diagnosis: 42-year-old female with Jean Baptiste ??'s esophagus, right upper quadrant abdominal pain, chronic diarrhea SPECIMEN PROCESSING A - Labeled/Fixative: Duodenum BX R/O celiac, formalin. Quantity/Size: Multiple, 0.2-0.3 cm. Tissue Description: Soft, gray tissues. Sections/Processi ng: Submitted en toto ??in 2 cassettes labeled A1-A2. B - Labeled/Fixative: Gastric BX rule out H. pylori, formalin. Quantity/Size: Four, 0.2-0.3 cm. Tissue Description: Soft, gray tissues. Sections/Processi ng: Submitted en toto ??in 1 cassette labeled B1. C - Labeled/Fixative: BX at 35, formalin. Quantity/Size: Four, 0.2-0.3 cm. Tissue Description: Soft, gray tissues. Sections/Processi ng: Submitted en toto ??in 1 cassette labeled C1. D - Labeled/Fixative: BX ??at 33, formalin. Quantity/Size: Four, 0.1-0.3 cm. Tissue Description: Soft, gray-pink tissues. Sections/Processi ng: Submitted en toto ??in 1 cassette labeled D1. E - Labeled/Fixative: BX at 31, formalin. Quantity/Size: Three, 0.1-0.3 cm. Tissue Description: Soft, gray-pink tissues. Sections/Processi ng: Submitted en toto ??in 1 cassette labeled E1. F - Labeled/Fixative: BX at 29, formalin. Quantity/Size: Five, 0.2-0.4 cm. Tissue Description: Soft, gray-pink tissues. Sections/Processi ng: Submitted en toto ??in 1 cassette labeled F1. G - Labeled/Fixative: BX at 27, formalin. Quantity/Size: Five, 0.2-0.4 cm. Tissue Description: Soft, gray-pink tissues. Sections/Processi ng: Submitted en toto ??in 1 cassette labeled G1. H - Labeled/Fixative: Random right colon BX, formalin. . SPECIMEN PROCESSING Quantity/Size: Multiple, 0.3-0.6 cm. Tissue Description: Soft, gray tissues. Sections/Processi ng: Submitted en toto ??in 2 cassettes labeled H1-H2. I - Labeled/Fixative: Ascending colon polyp, formalin. Quantity/Size: Three, 0.2-0.5 cm. Tissue Description: Soft, gray tissues. Sections/Processi ng: Submitted en toto ??in 1 cassette labeled I1. J - Labeled/Fixative: Descending colon polyps, formalin. Quantity/Size: Three, 0.3-0.6 cm. Tissue Description: Soft, gray polypoid tissues. Sections/Processi ng: Submitted en toto ??in 1 cassette labeled J1. K - Labeled/Fixative: Left colon BX, formalin. Quantity/Size: Five, 0.1-0.3 cm. Tissue Description: Soft, gray-pink tissues. Sections/Processi ng: Submitted en toto ??in 1 cassette labeled K1. L - Labeled/Fixative: Rectal BX, formalin. Quantity/Size: Two, averaging 0.3 cm. Tissue Description: Soft, gray tissues. Sections/Processi ng: Submitted en toto ??in 1 cassette labeled L1. M - Labeled/Fixative: Rectal polyps, formalin. Quantity/Size: Three, 0.2-0.3 cm. Tissue Description: Soft, red-gray tissues. Sections/Processi ng: Submitted en toto ??in 1 cassette labeled M1. ??sunita 08/22/2018 3:53 PM EDT [facility] GI Biopsy 08/21/2018 10:3 6 AM EDT 08/21/2018 10:36 AM EDT GI Biopsy 08/21/2018 10:3 6 AM EDT 08/21/2018 10:36 AM EDT GI Biopsy 08/21/2018 10:3 6 AM EDT 08/21/2018 10:36 AM EDT GI Biopsy 08/21/2018 10:3 6 AM EDT 08/21/2018 10:36 AM EDT GI Biopsy 08/21/2018 10:3 6 AM EDT 08/21/2018 10:36 AM EDT GI Biopsy 08/21/2018 10:3 6 AM EDT 08/21/2018 10:36 AM EDT GI Biopsy 08/21/2018 10:3 6 AM EDT 08/21/2018 10:36 AM EDT GI Biopsy 08/21/2018 10:3 6 AM EDT 08/21/2018 10:36 AM EDT GI Biopsy 08/21/2018 10:3 6 AM EDT 08/21/2018 10:36 AM EDT GI Biopsy 08/21/2018 10:3 6 AM EDT 08/21/2018 10:36 AM EDT GI Biopsy 08/21/2018 10:3 6 AM EDT 08/21/2018 10:36 AM EDT GI Biopsy 08/21/2018 10:3 6 AM EDT 08/21/2018 10:36 AM EDT GI Biopsy 08/21/2018 10:3 6 AM EDT 08/21/2018 10:36 AM EDT Erum Szymanski MD PATHOLOGY/CYTOLOGY O ZHANNA [facility] [place] [address] * UPPER GI ENDOSCOPY (08/21/2018 9:37 AM EDT) UPPER GI ENDOSCOPY [facility] Endoscopy ___ Procedure Date: 08/21/2018 9:37 AM ? Patient Name: Vianney Cordero ? Date of : 1975 ? Age: 42 ? Order #: [id number] ? Instrument Name: [id number] ? ___ Procedure: ? Upper GI endoscopy Indications: ? Follow-up of Jean Baptiste's esophagus Providers: ? Erum Szymanski MD, Erik Trevino, ? RN, Miriam Gutierrez, Jumbo Operator Referring MD: ?WANDY Andrade Medicines: ? Midazolam 7 mg IV, Fentanyl 350 ? micrograms IV, Diphenhydramine 50 mg ? IV Complications: ? No immediate complications. ___ Procedure: [...] the second ? part of duodenum. The upper GI ? endoscopy was somewhat difficult due ? to the patient's discomfort during ? the procedure; sedation was ? increased.. The patient tolerated the ? procedure. ? Findings: ? The esophagus and gastroesophageal junction were ? examined with white light and narrow band imaging ? (NBI). There were esophageal mucosal changes ? consistent with long-segment Jean Baptiste's esophagus. ? These changes involved the mucosa at the upper extent ? of the gastric folds (35 cm from the incisors) ? extending to the Z-line (which was irregular and ? located 27 cm from the incisors). The maximum ? longitudinal extent of these esophageal mucosal ? changes was 8 cm in length. Kelly classification ? C7M1. Mucosa was biopsied with a cold forceps for ? histology in 4 quadrants at intervals of 2 cm. A ? total of 5 specimen bottles were sent to pathology. ? Changes consistent with prior fundoplication seen on ? retroflexion. Fundoplication intact. Diffuse mildly ? erythematous mucosa was found in the entire examined ? stomach. Biopsies were taken with a cold forceps for ? histology. ? One non-bleeding superficial aphthous duodenal ? ulceration was found in the duodenal bulb. The lesion ? was 3 mm in largest dimension. There was some mildly ? erythematous mucosa in the first portion of the ? duodenum. ? The exam of the duodenum was otherwise normal. ? Moderate Sedation: ? Moderate (conscious) sedation was administered by the ? endoscopy nurse and supervised by the endoscopist. ? The following parameters were monitored: oxygen ? saturation, heart rate, blood pressure, and response ? to care. Impression: ?- Esophageal mucosal changes ? consistent with long-segment ? Jean Baptiste's esophagus. Biopsied. ? - Erythematous mucosa in the stomach. ? Biopsied. ? - One small, superficial non-bleeding ? duodenal ulceration. Recommendation: ?- Repeat upper endoscopy for ? surveillance based on pathology ? results (recommend anesthesia). ? - Continue Protonix daily to control ? acid reflux. ? - Avoid ibuprofen, high dose aspirin ? and other non-steriodal ? anti-inflammatories . ? - Treat H pylori if biopsies positive. ? - Proceed with colonoscopy. ? Attending Participation: ? I personally performed the entire procedure. ? Dr. Erum Szymanski _ Erum Szymanski MD 08/21/2018 11:50:45 AM Number of Addenda: 0 Note Initiated On: 08/21/2018 9:37 AM PROVATION 08/21/2018 9:37 AM EDT Unknown GENERAL SURGICAL ORD ERABLES PROVATION * COLONOSCOPY (08/21/2018 8:39 AM EDT) COLONOSCOPY [facility] Endoscopy Procedure Date: 08/21/2018 8:39 AM ? Patient Name: Vianney Cordero ? N: [id number] ? Date of : 1975 ? Age: 42 ? Order #: [id number] ? Instrument Name: [id number] ? Procedure: ? Colonoscopy Indications: ? Chronic diarrhea, Family history of ? colon cancer in a first-degree ? relative Providers: ? Erum Szymanski MD, Erik Trevino, ? RN, Miriam Gutierrez, Jumbo Operator Referring : ?WANDY Andrade Tara R. ? [place] Medicines: ? See the other procedure note for ? documentation of the administered ? medications Complications: ? No immediate complications. Procedure: ? The procedure, indications, benefits, ? risks and alternatives were explained ? to the patient. Specifically ? discussed were potential ? complications including, but not ? limited to, bleeding, perforation, ? infection, missing a cancer, and ? adverse medication reactions. The ? patient was placed in the left ? lateral decubitus position, and a ? digital rectal exam was performed. ? The Colonoscope was inserted in the ? anus and under direct visualization, ? advanced to the terminal ileum, with ? identification of the appendiceal ? orifice and IC valve. Careful ? inspection was made as the ? colonoscope was withdrawn. The ? colonoscopy was performed without ? difficulty. The patient tolerated the ? procedure well. The quality of the ? bowel preparation was good. The ? quality of the bowel preparation was ? evaluated using the BBPS ([place] ? Bowel Preparation Scale) with scores ? of: Right Colon = 2 (minor amount of ? residual staining, small fragments of ? stool and/or opaque liquid, but ? mucosa seen well), Transverse Colon = ? 2 (minor amount of residual staining, ? small fragments of stool and/or ? opaque liquid, but mucosa seen well) ? and Left Colon = 2 (minor amount of ? residual staining, small fragments of ? stool and/or opaque liquid, but ? mucosa seen well). The total BBPS ? score equals 6. Withdrawal time was ? 20 minutes. ? Findings: ? The perianal and digital rectal examinations were ? normal. ? The terminal ileum appeared normal (intubated for ? about 15cm). ? A 4 mm polyp was found in the ascending colon. The ? polyp was sessile. The polyp was removed with a cold ? snare. Resection and retrieval were complete. ? A 4 mm polyp was found in the descending colon. The ? polyp was flat. The polyp was removed with a cold ? snare. Resection and retrieval were complete. ? Two flat polyps were found in the descending colon. ? The polyps were 2 to 3 mm in size. These polyps were ? removed with a cold biopsy forceps. Resection and ? retrieval were complete. ? Three sessile polyps were found in the rectum. The ? polyps were 2 to 3 mm in size. These polyps were ? removed with a cold biopsy forceps. Resection and ? retrieval were complete. ? The mucosa of the colon appeared diffusely ? erythematous with patchy areas of congestion. These ? changes were mild. There was no granularity or ? ulceration to the mucosa. Biopsies were taken with a ? cold forceps for histology (right colon, left colon ? and rectum). ? The retroflexed view of the distal rectum and anal ? verge was normal and showed no anal or rectal ? abnormalities. ? Moderate Sedation: ? Moderate (conscious) sedation was administered by the ? endoscopy nurse and supervised by the endoscopist. ? The following parameters were monitored: oxygen ? saturation, heart rate, blood pressure, and response ? to care. Impression: ?- The examined portion of the ileum ? was normal. ? - One 4 mm polyp in the ascending ? colon, removed with a cold snare. ? Resected and retrieved. ? - One 4 mm polyp in the descending ? colon, removed with a cold snare. ? Resected and retrieved. ? - Two 2 to 3 mm polyps in the ? descending colon, removed with a cold ? biopsy forceps. Resected and ? retrieved. ? - Three 2 to 3 mm polyps in the ? rectum, removed with a cold biopsy ? forceps. Resected and retrieved. ? - Non-specific mild erythema and ? congested appearance to the colonic ? mucosa. Biopsied. ? - The distal rectum and anal verge ? are normal on retroflexion view. Recommendation: ?- Await pathology results. ? - Repeat colonoscopy for surveillance ? based on pathology results. ? - Return to referring physician PRN. ? Attending Participation: ? I personally performed the entire procedure. ? Dr. Erum Szymanski __ Erum Szymanski MD 08/21/2018 11:41:45 AM Number of Addenda: 0 Note Initiated On: 08/21/2018 8:39 AM PROVATION 08/21/2018 8:39 AM EDT Unknown GENERAL SURGICAL ORD ERABLES PROVATION documented in this encounter Visit Diagnoses Diagnosis Jean Baptiste's esophagus without dysplasia Jean Baptiste's esophagus Diarrhea, unspecified type documented in this encounter Administered Medications Inactive Administered Medications - up to 3 most recent administrations Medication Order MAR Action Action Date Dose Rate Site diphenhydrAMINE (BENADRYL) injection ONCE PRN, Starting on Sun08/21/18 at 1032, Until Sun08/21/18 at 1441, Intra-Operative (Intra-Procedure), Routine Given 08/21/2018 10:32 AM EDT 25 mg Given 08/21/2018 10:26 AM EDT 25 mg fentaNYL 50 mcg/mL multi-dose injection ONCE PRN, Starting on Sun08/21/18 at 0958, Until Sun08/21/18 at 1441, Intra-Operative (Intra-Procedure), Routine Given 08/21/2018 10:26 AM EDT 50 mcg Given 08/21/2018 10:18 AM EDT 50 mcg Given 08/21/2018 10:10 AM EDT 50 mcg midazolam (PF) (VERSED) multi-dose injection ONCE PRN, Starting on Sun08/21/18 at 1001, Until Sun08/21/18 at 1441, Intra-Operative (Intra-Procedure), Routine Given 08/21/2018 10:26 AM EDT 1 mg Given 08/21/2018 10:10 AM EDT 1 mg Given 08/21/2018 10:05 AM EDT 1 mg documented in this encounter Active and Recently Administered Medications Times are shown in EDT. PRN Medication Order 08/19/2018 08/20/2018 08/21/2018 diphenhydrAMINE (BENADRYL) injection (CANCELED) ONCE PRN, Starting on Sun08/21/18 at 1032, Until Sun08/21/18 at 1441, Intra-Operative (Intra-Procedure), Routine 1026 (Given - Provid er: Erik Trevino RN)1032 (Given - Provider: Erik Trevino RN) fentaNYL 50 mcg/mL multi-dose injection (CANCELED) ONCE PRN, Starting on Sun08/21/18 at 0958, Until Sun08/21/18 at 1441, Intra-Operative (Intra-Procedure), Routine 0958 (Given - Provid er: Erik Trevino RN)1001 (Given - Provider: Erik Trevino RN)1004 (Given - Provider: Erik Trevino RN)1010 (Given - Provider: Erik Trevino RN)1018 (Given - Provider: Erik Trevino RN)1026 (Given - Provider: Erik Trevino RN) midazolam (PF) (VERSED) multi-dose injection (CANCELED) ONCE PRN, Starting on Sun08/21/18 at 1001, Until Sun08/21/18 at 1441, Intra-Operative (Intra-Procedure), Routine 0958 (Given - Provid er: Erik Trevino RN)1001 (Given - Provider: Erik Trevino RN)1005 (Given - Provider: Erik Trevino RN)1010 (Given - Provider: Erik Trevino RN)1026 (Given - Provider: Erik Trevino RN) documented in this encounter Care Teams Medical Diagnostic Radiographer Relationship Specialty Start Date End Date Sonido Cordoba PA [address] [place] [address] PCP - General Family Medicine 11/16/15 06/22/20 documented as of this encounter
--- OUTSIDE RECORDS SUMMARY | 2024-10-16 17:41 | XMS_ITS | Encounter Summary ---
Author Organization [facility] [place] [address] Care Team Providers Care Precision Dyer Name Role Phone Sonido Cordoba Primary Care Provider +1- [phone] Encounter Details Date Type Department Care Team (Late st Contact Info) Description 01/09/2019 Telephone [place] [id number] Melina Hobbs CMA GASTROENTEROLOGY DEPT Social History [...] Telephone Encounter - Melina Hobbs CMA - 01/09/2019 3:05 PM EST Medication Prior Authorization 4L Gastroenterology / [place] [address] ?? Subscriber Insurance: [place] Medicaid ?? Phone: Fax: ? Physician: Jena Severino ? Return ?? Pharmacy: [facility] ?? Phone: Fax: ?? Medication Requested: tetracycline ?? Strength: Frequency: ?? Disp.: Refills:0 ?? Currently taking: nnp ?? Diagnosis for this medication: H.pylori infection ?? ICD-10 code: (A04.8) ?? Prior medications trialed in this patient: Amoxicillin 2018, Clarithromycin 2018, Pantoprazole currently taking ? Medication: Outcome/Adverse Reactions:Treatment Failure ?? Decision: approved ?? Tracking number: [id number] Date: 01/09/2019 Until 01/23/2019 documented in this encounter Plan of Treatment Upcoming Encounters Date Type Department Care Team (Late st Contact Info) Description 12/31/2024 10:00 AM EST Office Visit [facility] at [place] [phone] Mercy Amanda MD [facility] [address] [facility] [address] 04/01/2025 2:00 PM EDT Office [place] [address] Erum Szymanski MD [facility] [place] [address] documented as of this encounter Visit Diagnoses Not on filedocumented in this encounter Care Teams Precision Dyer Relationship Specialty Start Date End Date Sonido Cordoba PA [address] [place] [address] PCP - General Family Medicine 11/16/15 06/22/20 documented as of this encounter
--- OUTSIDE RECORDS SUMMARY | 2024-10-16 17:41 | XMS_ITS | Encounter Summary ---
[place] [address] Care Team Providers Care Desk Officer Name Role Phone Sonido Cordoba Primary Care Provider +1- [phone] Encounter Details Date Type Department Care Team (Late st Contact Info) Description 12/17/2018 10:30 AM EST Procedure [place] [phone] Awais Kebede PA [address] [place] [address] [place] [address] Fatty liver Social History Tobacco Use Types Packs/Day Years [...] Sign Reading Time Taken Comments Blood Pressure 146/68 12/17/2018 10:46 AM EST Pulse 66 12/17/2018 10:46 AM EST Temperature - - Respiratory Rate - - Oxygen Saturation - - Inhaled Oxygen Concentration - - Weight 110.2 kg (243 lb) 12/17/2018 10:46 AM EST Height 160 cm (5' 3) 12/17/2018 10:46 AM EST Body Mass Index 43.05 12/17/2018 10:46 AM EST documented in this encounter Procedure Notes * Awais Kebede PA - 12/17/2018 10:30 AM ESTAssociated Order(s): FIBROSCAN Procedure(s): FIBROSCAN Pre-Procedure Diagnose(s): Fatty liver [facility] Liver Fibrosis Assessment Report Indication: Hepatomegaly and hepatic steatosis on ultrasound Performed by: WANDY Negrete Procedure: Vibration Controlled Transient Elastography (VCTE) or Fibroscan [place] Protocol: Patient's identity, procedure and site were verified, confirmatory pause performed. Discussed procedure including risks and potential complications. Questions answered. Patient verbalizes understanding and wishes to proceed with Fibroscan assessment. Patient was placed in the supine position with right arm in maximum abduction to allow optimal exposure of right lateral abdomen. Patient was briefly assessed. Testing was performed in the mid-axillary location. 50Hz Shear Wave pulses were applied and the resulting Shear Wave and Propagation Speed was detected with a 3.5MHz ultrasonic signal, using the Fibroscan probe. Skin to liver capsule distance and liver parenchyma were accessed during the entire examination with the Fibroscan probe. Patient was instructed to breathe normally and abstain from sudden movements during the procedure. At least ten Sheer Waves were produced; individual measurements of each Shear Wave were calculated. Patient tolerated the procedure well with no complications. Fibroscan Results: Median kPa: 4.6 Mean IQR: 13% (goal is <30 %) Number of valid measurements: 10 (at least 10 required) Number of invalid measurements: 0 Predicted fibrosis stage: F0-F1 CAP (dB/m): 383 Estimated steatosis grade: 3/3 % hepatocytes affected: >66% XL probe used Interpretation: Based on this Fibroscan result, history, clinical examination and review of laboratory and radiological data, this patient likely has stage 0-1 liver fibrosis and grade 3 steatosis affecting greater than 66% of hepatocytes. documented in this encounter Plan of Treatment Upcoming Encounters Date Type Department Care Team (Late st Contact Info) Description 12/31/2024 10:00 AM EST Office [place] [address] Mercy Amanda MD [facility] [address] [facility] [address] 04/01/2025 2:00 PM EDT Office [place] [phone] Erum Szymanski MD [facility] [place] [address] documented as of this encounter Procedures Procedure Name Priority Date/Time Associated Diagnosis Comments [id number] Routine 12/17/2018 10:30 AM EST Fatty liver documented in this encounter Results * [id number] (12/17/2018 10:30 AM EST) Narrative Awais Kebede PA - 12/17/2018 10:30 AM EST Awais Kebede PA ? 12/17/2018 11:06 AM [facility] Liver Fibrosis Assessment Report Indication: ?? Hepatomegaly and hepatic steatosis on ultrasound Performed by: ??WANDY Negrete Procedure: Vibration Controlled Transient Elastography (VCTE) or Fibroscan [place] Protocol: Patient's identity, procedure and site were verified, confirmatory pause performed. Discussed procedure including risks and potential complications. Questions answered. Patient verbalizes understanding and wishes to proceed with Fibroscan assessment. Patient was placed in the supine position with right arm in maximum abduction to allow optimal exposure of right lateral abdomen. Patient was briefly assessed. Testing was performed in the mid-axillary location. 50Hz Shear Wave pulses were applied and the resulting Shear Wave and Propagation Speed was detected with a 3.5MHz ultrasonic signal, using the Fibroscan probe. Skin to liver capsule distance and liver parenchyma were accessed during the entire examination with the Fibroscan probe. Patient was instructed to breathe normally and abstain from sudden movements during the procedure. At least ten Sheer Waves were produced; individual measurements of each Shear Wave were calculated. Patient tolerated the procedure well with no complications. Fibroscan Results:Median kPa: 4.6 Mean IQR: 13% (goal is <30 %) Number of valid measurements: 10 (at least 10 required) Number of invalid measurements: 0 Predicted fibrosis stage: F0-F1 CAP (dB/m): 383 Estimated steatosis grade: 3/3 % hepatocytes affected: >66% XL probe used Interpretation: Based on this Fibroscan result, history, clinical examination and review of laboratory and radiological data, this patient likely has stage 0-1 liver fibrosis and grade 3 steatosis affecting greater than 66% of hepatocytes. Kathy Carnes MD PROCEDURE/MINOR S URGICAL ORDERABLES documented in this encounter Visit Diagnoses Diagnosis Fatty liver Other chronic nonalcoholic liver disease documented in this encounter Care Teams Desk Officer Relationship Specialty Start Date End Date Sonido Cordoba PA [address] [place] [address] PCP - General Family Medicine 11/16/15 06/22/20 documented as of this encounter
--- OUTSIDE RECORDS SUMMARY | 2024-10-16 17:41 | XMS_ITS | Encounter Summary ---
Author Organization [facility] [place] [address] Care Team Providers Care Fisheries Technical Officer Name Role Phone Sonido Cordoba Primary Care Provider +1- [phone] Reason for Visit * Reason Comments Foot Pain Encounter Details Date Type Department Care Team (Late st Contact Info) Description 06/17/2019 10:15 AM EDT Office [place] [address] Tyler Nava DPM [facility] [place] [address] Peroneal tendinitis of right lower extremity Social History Tobacco Use Types Packs/Day Years [...] as of this encounter Progress Notes * Tyler Nava DPM - 06/17/2019 10:15 AM EDT SUBJECTIVE Chief complaint:Vianney Cordero is a 43 y.o. female, who returns to podiatry for continued pain on the lateral aspect of the right foot. The patient reports pain is also spread to the dorsal aspect of the midfoot right. Did not find the walking boot helpful. In fact discomfort increased while she was in it.. There were no vitals taken for this visit. Objective Dorsalis Pedis pulses are palpable. Posterior Tibial pulses are palpable. The patient has tenderness with palpation around the insertion of the peroneus brevis as it insertsinto the base of the fifth metatarsal right. No erythema or edema. Minimal pain with palpation along the course of the peroneal tendons. The shoes she is wearing today are supportive.. Assessment Insertional peroneus brevis tendinitis right. Plan Decision was made to inject 1/2 cc of Kenalog 10 [facility] [place]NOTE 2] number [id number] and 2% lidocaine plain around the base of the fifth metatarsal at the insertion of peroneus brevis right foot. Continue in supportive shoes. Contact me through my in 2 weeks. If no better will order an MRI. documented in this encounter Plan of Treatment Upcoming Encounters Date Type Department Care Team (Late st Contact Info) Description 12/31/2024 10:00 AM EST Office Visit [place] [address] Mercy Amanda MD [facility] [address] [facility] [place] [address] 04/01/2025 2:00 PM EDT Office Visit [place] [phone] Erum Szymanski MD [facility] [place] [address] documented as of this encounter Visit Diagnoses Diagnosis Peroneal tendinitis of right lower extremity Other enthesopathy of ankle and tarsus documented in this encounter Care Teams Fisheries Technical Officer Relationship Specialty Start Date End Date Sonido Cordoba PA [address] [place] [address] PCP - General Family Medicine 11/16/15 06/22/20 documented as of this encounter
--- OUTSIDE RECORDS SUMMARY | 2024-10-16 17:41 | XMS_ITS | Encounter Summary ---
Author Organization [facility] Address [facility] [place] [address] Care Team Providers Care Color Matcher Name Role Phone Sonido Cordoba Primary Care Provider [phone] Encounter Details Date Type Department Care Team (Late st Contact Info) Description 06/17/2019 11:00 AM EDT Office [place] [address] Jena Severino PA [facility] [place] [address] Odynophagia; 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; History of Helicobacter pylori infection; Adenomatous polyp of colon, unspecified part of colon Social History Tobacco Use Types Packs/Day Years [...] Sign Reading Time Taken Comments Blood Pressure 125/67 06/17/2019 11:11 AM EDT Pulse 64 06/17/2019 11:11 AM EDT Temperature - - Respiratory Rate - - Oxygen Saturation - - Inhaled Oxygen Concentration - - Weight 109.3 kg (241 lb) 06/17/2019 11:11 AM EDT Height 160 cm (5' 3) 06/17/2019 11:11 AM EDT Body Mass Index 42.69 06/17/2019 11:11 AM EDT documented in this encounter Patient Instructions * Patient Instructions* Jena Severino - 06/17/2019 11:00 AM EDT Thank you for coming in today. Here is a summary of what we discussed: 1. Schedule upper endoscopy and colonoscopy with anesthesia 2. In the mean time, you can trial Protonix twice a day (AM and PM, 30-60 minutes before meals). You can also try Mylanta or Gaviscon liquid before meals. 3. Follow up after testing with Dr. Szymanski. Electronically signed by Jena Severino 06/17/2019 11:41 AM EDT documented in this encounter Progress Notes * Jena Severino - 06/17/2019 11:00 AM EDT Gastroenterology & Hepatology Follow Up Visit Note PCP: WANDY Aguilera Last Visit: 04/17/18: Vianney Cordero is a 43 y.o. female with medical history significant for hx Rodgers's esophagus, paraesophageal hernia s/p Tyesha fundoplication (2014). FHx positive for son with Celiac disease and mother with colon cancer. I first saw her as a new patient in consult for question ofchronic diarrhea x 2.5 months, although intermittent diarrhea for past ~3 yrs. Diarrhea is often postprandial, 3-4 BM/day, Breckinridge scale 7 or 6. Urgency. Focal RUQ pain may be worse after meals x 4 yrs. Positive Carnett's sign. Plan: stool studies. Labs. Abdominal US 06/18/18: Postprandial diarrhea 90% of the time. Also has diarrhea without meals. 5-6 BM/day, Breckinridge scale 7, Breckinridge 6 sometimes. Urgency but no accidents. Sometimes has left sided pain/cramping with BM, relieves after BM. Bloated, not much gas. Some nausea, no vomiting. No GERD sx. Plan: Dietary changes. Imodium. Update in 2 weeks, can consider addition of Colestid. EGD and colonoscopy in Aug. EGD 08/21/18: One small, superficial non-bleeding duodenal ulceration. Long- segment 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, confirmed on biopsies. Stomach bx positive for H pylori infection. Normal duodenal bx. Recommend repeat EGD with anesthesia in 3 yrs (Aug 2021). Colonoscopy 08/21/18: 7 polyps removed- TA and hyperplastic on biopsies. Non- specific mild erythemaand congested appearance to the colonic??mucosa. Colon bx with mild crypt architectural distortion,etiology unclear. Recommend repeat colonoscopy with anesthesia in 1 yr (Aug 2019). 09/10/18: Low Fodmap x 2 weeks, initially helped went back to normal but effect was short-lived. Thinks lactose causes symptoms. BM normal stool first thing in morning, then post-prandial loose stools, has 3-4 BM/day. No n/v. Not taking Imodium. Denies GERD since starting Protonix. Plan: H pylori treatment x 2 wks (clarithromycin, amox, Protonix). Stool H pylori Ag testing 4-6 weeks after finishing treatment (prior 2 weeks off PPI, then ok to resume PPI). Trial lactose free x 2 weeks. Fibroscan at next visit. 12/17/18: Completed triple therapy for known H pylori per last visit. Submitted stool test to [facility] end Nov; told today by her PCP that stool testing is still H pylori positive. Stopped PPI 2 weeks prior to stool test, is now back on Protonix 40 mg once daily. Overall tx did not change her symptoms much. Denies GERD. Occasional feeling of something 'stuck' in upper esophagus. No dysphagia. Tried low Fodmap, found sensitive to lactose which she now avoids. Current sx: sharp RUQ pain, most days, within few mins of meal, lasting couple hours. Bowels almost normal, diarrhea improved, more solid than before, 1-2 BM/day. Plan: continue lactose avoidance. Fiber (metamucil or benefiber). Will review H pylori results and discuss with attending and follow up w/ Ptn. 12/17/18: Reviewed ptn w/ Dr. Erum Szymanski. Sent Rx for pylera, which was denied by insurance. Sentrx for individual medications on 01/06: 1 tab each of tetracycline 500 mg, metronidazole 250 mg and bismuth 262 mg 4 times a day (AM, noon, PM, bedtime) for 14 days. ??Plus Protonix 40 mg twice a day (AM and PM) for 14 days. ?? After above treatment, Protonix once daily x 2 wks, then stop Protonix 2 weeks then submit stool sample. Labs: Hep B sAg, Hep C Ab. 02/24/19: completed H pylori tx (01/17-01/31), stopped PPI x 2 weeks prior, submitted stool testing 02/20. Feeling somewhat better. Still has RUQ pain, after every meal. 3-4 BM/day. Stools are soft and yucky in general, loose if she has dairy. Has a lot of gas, bloating. Occasional nausea, can not vomit since her surgery. Plan: HBT. RUQ US. Repeat colonoscopy in Aug. 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 - she was not able to come in for breath test, could not schedule time off New symptom that is concerning her: Throat hurts when she swallows, anything dry foods, soft foods,liquids. Is painful. This is new for the past week. Prior to that, she started having new epigastric pain, post prandial. - no new medications or injury when this started. This is very upsetting for her, she is crying in the office. Googled her symptoms and is concerned about something serious No heartburn. No acid reflux. No nausea or vomiting. The other day, thought she tasted blood but could not bring anything up. Is taking 20 mg Protonix daily in AM. Still has ongoing RUQ pain after she eats. Starts within minutes of eating, can last 1 hr to several hours. A lot of bloating, gas. Had tried low Fodmap in the past, found she has lactose intolerance, gets instant diarrhea, bloating and distension. She avoids lactose. - H pylori treatments did not help with her gas, bloating. Bowels: daily 2-3 BM/day, usually right after eating, not having watery stool (only with milk, ice cream), sometimes loose sometimes solid. No blood or black tarry stools. No nocturnal bowel movements. PMHX: - Paraesophageal hiatal hernia repair and Tyesha fundoplication with Dr Moura on 04/05/2015. - Rodgers's esophagus - yearly EGD. Weight: 241 lb today, lost ~8 lb over 4 mo. Intentional through diet, drinking more water and less soda. Now 1 soda/day. Diagnostic studies: 1. US abd limited, 03/15/16 [...] C Ab neg. 10. RUQ US 03/19/19: Diffusely increased hepatic parenchymal echotexture with loss of portal triads without suspicious focal lesion with areas of focal fatty sparing in keeping with diffuse fatty infiltration. 5 mm simple left liver lobe cyst. Normal gallbladder without sludge nor cholelithiasis. Normal biliary tree. ? ROS: Constitutional: Denies unintended weight loss, fatigue, fever, night sweats ENT: + odynophagia, globus, occasional hoarseness Denies oral ulcers, dysphagia Resp: Denies cough, shortness of breath Cardio: Denies chest pain, palpitations GI: see HPI MEDICAL HISTORY: Patient Active Problem List Diagnosis Code ??? [...] 06/2015 Z98.890 ??? Left ankle pain M25.572 CURRENT MEDICATIONS: ??? diclofenac (VOLTAREN) 1 % Gel ??? Bismuth Subsalicylate 262 mg Tablet ??? tetracycline (ACHROMYCIN;SUMYCIN) 500 mg Capsule ??? metroNIDAZOLE (FLAGYL) 250 mg Tablet ??? amoxicillin (AMOXIL) 500 mg Capsule ??? pantoprazole (PROTONIX) 20 mg Tablet, Delayed Release (E.C.) ??? meclizine (ANTIVERT) 12.5 mg Tablet ??? Ketamine (Bulk) 100 % Powd 5 %, Gabapentin (Bulk) 100 % Powd 6 %, Diclofenac Sodium (Bulk) 100 % Powd 3 %, Lidocaine HCl (Bulk) 100 % Powd 5 % ??? gabapentin (NEURONTIN) 100 mg Capsule ??? pantoprazole (PROTONIX) 40 mg Tablet, Delayed Release (E.C.) ??? traZODone (DESYREL) 50 mg Tablet ??? gabapentin (NEURONTIN) 300 mg Capsule Reviewed 06/17/19: Meclizine PRN Gabapentin 300 in AM, 100 in PM Protonix 20 mg in AM Trazodone PRN - very rarely NSAIDs - none, irritates stomach ALLERGIES: Allergies Allergen Reactions ??? Oxycodone Nausea And Vomiting SURGICAL HISTORY: Past Surgical History: Procedure Laterality Date ??? DILATION AND CURETTAGE OF UTERUS 1994 ??? PRO COLONOSCOPY, BIOPSY N/A 08/21/2018 COLONOSCOPY FLEXIBLE, WITH BX (WRVU 3.66) performed by Erum Szymanski MD at [facility]COPY ??? PRO COLONOSCOPY, REMV LESN, SNARE N/A 08/21/2018 COLONOSCOPY, POLYPECTOMY, REMOVAL LESION BY SNARE (WRVU 4.67) performed by Erum Szymanski MD at [facility] ? ? PRO CYSTO W URETEROSCOPY &/OR PYELOSCOPY, DX Right 06/01/2015 CYSTOURETEROSCOPY, DIAGNOSTIC performed by Darius Nuñez Jr., MD at [facility] OR ??? PRO CYSTOSCOPY, INSERT URETERAL STENT Right 06/01/2015 CYSTO, STENT PLACEMENT performed by Darius Nuñez Jr., MD at [facility] OR ??? PRO LAP, ESOPHAGOGAST FUNDOPLASTY N/A 04/05/2015 LAPAROSCOPIC TYESHA FUNDOPLASTY performed by Valentín Moura MD at [facility] OR ??? PRO PERCUT DILATN RENAL TRACT Right 06/01/2015 PERCUTANEOUS INTRO GUIDE WIRE TO ACCESS RENAL PELVIS,AND OR URETER, W\DILATION performed by Darius Nuñez Jr., MD at [facility] OR ??? PRO PERCUT REMV KID STONE, UP TO 2 CM Right 06/01/2015 NEPHROLITHOTOMY, ([facility]) PERCUTANEOUS performed by Darius Nuñez Jr., MD at [facility] OR ??? PRO UPPER GI ENDOSCOPY, BIOPSY N/A 01/27/2015 EGD WITH BIOPSY performed by Brandt Barlow MD at [facility] ??? PRO UPPER GI ENDOSCOPY, BIOPSY N/A 02/28/2016 EGD WITH BIOPSY performed by Brandt Barlow MD at [facility] ??? PRO UPPER GI ENDOSCOPY, BIOPSY N/A 09/04/2016 EGD WITH BIOPSY performed by Brandt Barlow MD at [facility] ??? PRO UPPER GI ENDOSCOPY, BIOPSY N/A 09/24/2017 EGD WITH BIOPSY (WRVU 2.49) performed by Brandt Barlow MD at [facility] ??? PRO UPPER GI ENDOSCOPY, BIOPSY N/A 08/21/2018 EGD WITH BIOPSY (WRVU 2.49) performed by Erum Szymanski MD at [facility] ??? 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 HABITS: Alcohol: once every 2 wks Tobacco: none Drug use: none FAMILY HISTORY: Nephew- Crohn's disease Son - celiac, has DM type 1 Mother - colon cancer, diagnosed age 60s There is no known family history of inflammatory bowel disease, celiac disease, or GI cancer (esophagus, stomach). There is no history of liver or pancreas disease. Objective: PHYSICAL EXAMINATION: Most Recent Vitals: 06/17/19 1111 BP: 125/67 Pulse: 64 Body mass index is 42.69 kg/m??. Alert, well-appearing, no acute distress but occasionally tearful when discussing her symptoms. Appears stated age. Obese. Cooperates and answers questions appropriately. Mood appropriate, good eye contact, normal interaction. Impression/Recommendations: Vianney Cordero is a 43 y.o. year old female with history of Rodgers's esophagus and hiatal hernia s/p Tyesha fundoplication in 2014 who is here for follow up of abdominal pain and bowel changes since ~February 2018. FHx positive for son with Celiac disease and mother with colon cancer. An EGD in Aug 2018 revealed long-segment Rodgers's esophagus, normal duodenal biopsies and bx positive for H pylori infection. A colonoscopy at that time was notable for 7 polyps (hyperplastic and TAs) and biopsies positive for mild inactive inflammatory changes of unclear etiology. There was no evidence of active IBD; the inflammation may be related to chronic colitis vs a resolving (perhaps viral) gastroenteritis/colitis, and we planned to repeat the colonoscopy in 1 yr (~ Aug 2019) to assess for anychanges. She underwent one round of triple therapy for H pylori (clarithromycin, amox, Protonix) in Sep 2018but repeat stool testing remained positive for H pylori Ag. She underwent 2nd round of treatment with metronidazole, tetracycline, bismuth and Protonix, repeat stool Ag negative in February 2019. Today she is concerned about new symptoms of odynophagia and globus. Painful to eat or drink, but she is able to get foods down. She also has new epigastric pain, post prandial. Denies GERD symptoms.Taking 20 mg Protonix daily. Given her hx of Rodgers's, H pylori and duodenal ulcer, would recommend EGD for further evaluation. Consider infectious esophagitis. No new meds, so I think pill odynophagia less likely. - discussed ok to trial liquid antacids and BID PPI in the mean time. She has ongoing RUQ postprandial pain, longstanding, different from the epigastric and esophageal symptoms described above. Repeat RUQ US and other testing negative. Discussed possibility of HIDA in future to r/o biliary dyskinesia. She is due for repeat colonoscopy around August so will order this at the same time as her upper endoscopy, with anesthesia. Requests Miralax prep as she was unable to tolerate Golytely prep in the past. I let her know that I am leaving the GI section in a few weeks, and recommend she follow up with Dr. Erum Szymanski in our section, who performed her prior endoscopies. - We will call her to schedule endoscopies and follow up appt; office number provided for her to call if she does not hear from us. PLAN (printed for patient): 1. Schedule upper endoscopy and colonoscopy with anesthesia 2. In the mean time, you can trial Protonix twice a day (AM and PM, 30-60 minutes before meals). You can also try Mylanta or Gaviscon liquid before meals. 3. Follow up after testing with Dr. Szymanski. 25 of this 30 minute visit was spent in discussion of the above. The patient was given my contact information and will call me with concerns or questions. Jena Severino PA-C Section of Gastroenterology and Hepatology [place] [phone] documented in this encounter Plan of Treatment Upcoming Encounters Date Type Department Care Team (Late st Contact Info) Description 12/31/2024 10:00 AM EST [place] [phone] Mercy Amanda MD [facility] [address] [facility] [address] 04/01/2025 2:00 PM EDT Office [place] [phone] Erum zSymanski MD [facility] [place] [address] Scheduled Orders Name Type Priority Associated Diagnoses Orde r Schedule COLONOSCOPY Procedures Routine Adenomatous polyp of colon, unspecified part of colon Ordered: 06/17/2019 UPPER GI ENDOSCOPY Procedures Routine 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 History of Helicobacter pylori infection Ordered: 06/17/2019 documented as of this encounter Visit Diagnoses Diagnosis Odynophagia Dysphagia, unspecified 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 Rodgers's esophagus History of Helicobacter pylori infection Personal history of other infectious and parasitic disease Adenomatous polyp of colon, unspecified part of colon documented in this encounter Care Teams Color Matcher Relationship Specialty Start Date End Date Sonido Cordoba PA [address] [place] [address] PCP - General Family Medicine 11/16/15 06/22/20 documented as of this encounter
--- OUTSIDE RECORDS SUMMARY | 2024-10-16 17:41 | XMS_ITS | Encounter Summary ---
Author Organization [facility] [place] [address] Care Team Providers Care Heading And Priming Operator Name Role Phone Sonido [place] Primary Care Provider +1- [phone] Encounter Details Date Type Department Care Team (Late st Contact Info) Description 09/04/2019 10:33 AM EDT Anesthesia [place] [phone] Dane Shoemaker MD [facility] [place] [address] Anesthesia Record Procedure Summary Procedure Name Responsible Anesthesiologist Anesthesia Start Time Anesthesia Stop Time EGD, UPPER GI ENDOSCOPY (WRVU 2.09) (Trunk) Dane Shoemaker MD 09/04/19 1033 09/04/19 1123 Events Date Time Event Comment 09/04/2019 0951 1033 AN Verify 1033 Start 1033 An Start Data 1037 An Induction 1038 Anesthesia Ready 1055 an hetal now 1117 an stop data 1123 Recovery or ICU Handoff Radha ent care was transferred to the destination unit staff after review of the patient's medical history, current anesthetic/surgical status and plan, according to the Provider Handoff Checklist. 1123 Stop Meds Name Total IV Lidocaine 100 mg Propofol 160 mg Propofol INF 725.38 mg lactated ringers infusion 350 mL * Agents Name O2 Air N2O [...] (RETIRED) Peripheral IV Line - Single Lumen 09/04/19; 0939; metacarpal vein (top of hand), right; [id number] catheter system; 22 gauge; will mayen rn; distraction, tolerated well, appears comfortable; 0; 09/04/19; 1212 09/04/19 0939 by Suzie Bravo RN 09/04/19 1212 by Chrystal Aguilar RN documented in this encounter Social History [...] OR Notes * Anesthesia Postprocedure Evaluation - Dane Shoemaker MD - 09/04/2019 11:57 AM EDT Department of Anesthesiology Post-procedure Note Patient: Vianney Cordero Procedure Summary Date: 09/04/19 Room / Location: [facility] 3 / [facility] Anesthesia Start: 1033 Anesthesia Stop: 1123 Procedures: EGD, UPPER GI ENDOSCOPY (N/A Trunk) COLONOSCOPY, DIAGNOSTIC (N/A Trunk) UPPER GASTROINTESTINAL ENDOSCOPY,WITH BIOPSY SINGLE OR MULTIPLE (WRVU 2.49) (N/A ) COLONOSCOPY FLEXIBLE, WITH BX (WRVU 3.66) (N/A ) Diagnosis: Adenomatous polyp of colon, unspecified part of colon 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 History of Helicobacter pylori infection (follow up for multiple polyps, atypical inflammatory changes on colonoscopy 08/2018 - CONSULT) (miralax prep) Surgeon: Steve Ji MD Responsible Provider: Dane Shoemaker MD Anesthesia Type: MAC ASA Status: 3 All Anesthesia Providers: Anesthesiologist: Dane Shoemaker MD AUTOMATIC RIVETING MACHINE OPERATOR: Arabella Duenas CRNA Vitals Value Taken Time BP 119/72 09/04/2019 11:45 AM Temp Pulse 76 09/04/2019 11:22 AM Resp 20 09/04/2019 11:22 AM SpO2 100 % 09/04/2019 11:55 AM Pain Level 0 09/04/2019 11:22 AM Vitals shown include unvalidated device data. Patient Location: PACU/[facility] Level of Consciousness: Conscious but Sleepy Pain Management: Satisfactory Analgesia PONV: None Cardiovascular Status: Hemodynamically Stable Respiratory Status: Stable Respiratory Status Postoperative Fluid Status: Intravascular EUvolemia Possible Anesthetic Complications: NONE apparent at time of evaluation Final Primary Anesthesia Type: MAC (The anesthetic type performed was the same as planned.) Comments: DANE SHOEMAKER MD * Anesthesia Preprocedure Evaluation - Dane Shoemaker MD - 09/04/2019 9:48 AM EDT Pre-Anesthesia Evaluation for: Vianney Cordero a 43 y.o. female. Procedure(s): EGD, UPPER GI ENDOSCOPY COLONOSCOPY, DIAGNOSTIC Patient Active Problem List Diagnosis ??? Left ankle pain ??? Hx of [...] FLEXIBLE, WITH BX (WRVU 3.66) performed by rEum Szymanski MD at [facility] ??? PRO COLONOSCOPY, REMV LESN, SNARE N/A 08/21/2018 COLONOSCOPY, POLYPECTOMY, REMOVAL LESION BY SNARE (WRVU 4.67) performed by Erum Szymanski MD at [facility] ? ? PRO CYSTO W URETEROSCOPY &/OR PYELOSCOPY, DX Right 06/01/2015 CYSTOURETEROSCOPY, DIAGNOSTIC performed by Darius Nuñez Jr., MD at [facility] OR ??? PRO CYSTOSCOPY, INSERT URETERAL STENT Right 06/01/2015 CYSTO, STENT PLACEMENT performed by Darius Nuñez Jr., MD at [facility] OR ??? PRO LAP, ESOPHAGOGAST FUNDOPLASTY N/A 04/05/2015 LAPAROSCOPIC TYESHA FUNDOPLASTY performed by Valentín Moura MD at [facility] OR ??? PRO PERCUT DILATN RENAL TRACT Right 06/01/2015 PERCUTANEOUS INTRO GUIDE WIRE TO ACCESS RENAL PELVIS,AND OR URETER, W\DILATION performed by Darius Nuñez Jr., MD at [facility] OR ??? PRO PERCUT REMV KID STONE, UP TO 2 CM Right 06/01/2015 NEPHROLITHOTOMY, ([facility]) PERCUTANEOUS performed by Darius Nñuez Jr., MD at [facility] OR ??? PRO UPPER GI ENDOSCOPY, BIOPSY N/A 01/27/2015 EGD WITH BIOPSY performed by Brandt Barlow MD at [facility] ??? PRO UPPER GI ENDOSCOPY, BIOPSY N/A 02/28/2016 EGD WITH BIOPSY performed by Brandt Barlow MD at [facility] ??? PRO UPPER GI ENDOSCOPY, BIOPSY N/A 09/04/2016 EGD WITH BIOPSY performed by Brandt Barlow MD at [facility] ??? PRO UPPER GI ENDOSCOPY, BIOPSY N/A 09/24/2017 EGD WITH BIOPSY (WRVU 2.49) performed by Brandt Barlow MD at [facility] ??? PRO UPPER GI ENDOSCOPY, BIOPSY N/A 08/21/2018 EGD WITH BIOPSY (WRVU 2.49) performed by Erum Szymanski MD at [facility] ??? TONSILLECTOMY Social History Tobacco Use ??? Smoking status: Former Smoker Packs/day: 0.50 Years: 6.00 Pack years: 3.00 Types: Cigarettes Last attempt to quit: 01/25/1997 Years since quittin.6 ??? Smokeless tobacco: Never Used Substance Use Topics ??? Alcohol use: Yes Comment: 1X/quarter Social History Substance and Sexual Activity Drug Use No Allergies Allergen Reactions ??? Oxycodone Nausea And Vomiting Medications: MAR and/or home medications have been reviewed. Physical Exam: Most Recent Vitals: 09/04/19 0931 BP: 142/84 Pulse: 71 Temp: 36.7 ??C (98.1 ??F) SpO2: 98% Body mass index is 44.11 kg/m??. Height: 160 cm (5' 3) Weight: 112.9 kg (249 lb) Airway Assessment: Mallampati: II TM distance: >3 FB Neck ROM: full Cardiovascular Assessment: cardiovascular exam normal Pulmonary Assessment: pulmonary exam normal Dental Assessment: Misc Assessment: IV access: Peripheral line Anesthesia Plan: ASA 3 MAC, with a(n) intravenous induction 43 yo presents for Upper GI and colonoscopy Rodgers's Hiatal Hernia s/p tyesha PTSD Prior vásquez 2 Gr 2 Denies recent CP SOB URI or GERD NPO > 4 mets DANE SHOEMAKER MD Region - Other Informed Consent: Anesthetic plan and risks discussed with patient. Plan discussed with AUTOMATIC RIVETING MACHINE OPERATOR. PAT Clinic Note documented in this encounter Plan of Treatment Upcoming Encounters Date Type Department Care Team (Late st Contact Info) Description 12/31/2024 10:00 AM EST Office [place] [address] Mercy Amanda MD [facility] [address] [facility] [address] 04/01/2025 2:00 PM EDT Office [place] [address] Erum Szymanski MD [facility] [place] [address] documented as of this encounter Visit Diagnoses Not on filedocumented in this encounter Administered Medications Inactive Administered Medications - up to 3 most recent administrations Medication Order MAR Action Action Date Dose Rate Site lidocaine (PF) (XYLOCAINE) 100 mg/5 mL (2 %) injection PRN, Starting on Brittny 09/04/19 at 1037, Until Brittny 09/04/19 at 1127, Anesthesia Intra-op, Routine Given 09/04/2019 10:37 AM EDT 100 mg propofol (DIPRIVAN) 10 mg/mL bolus injection (Anesthesia) PRN, Starting on Brittny 09/04/19 at 1037, Until Brittny 09/04/19 at 1127, Anesthesia Intra-op Given 09/04/2019 10:47 AM EDT 50 mg Given 09/04/2019 10:45 AM EDT 30 mg Given 09/04/2019 10:38 AM EDT 30 mg propofol (DIPRIVAN) infusion CONTINUOUS PRN, Starting on Brittny 09/04/19 at 1037, Until Brittny 09/04/19 at 1127, Anesthesia Intra-op, Routine Rate/Dose Change 09/04/2019 11:10 AM EDT 150 mcg/kg/min 101.6 mL/hr Rate/Dose Change 09/04/2019 11:01 AM EDT 175 mcg/kg/min 11 8.5 mL/hr Rate/Dose Change 09/04/2019 10:48 AM EDT 200 mcg/kg/min 13 5.5 mL/hr documented in this encounter Care Teams Heading And Priming Operator Relationship Specialty Start Date End Date Sonido [place] PA [address] [place] [address] PCP - General Family Medicine 11/16/15 06/22/20 documented as of this encounter
--- OUTSIDE RECORDS SUMMARY | 2024-10-16 17:41 | XMS_ITS | Encounter Summary ---
Author [place] [address] Care Team Providers Care Forest Fire Control Officer Name Role Phone Sonido [place] Primary Care Provider +1- [phone] Encounter Details Date Type Department Care Team (Late st Contact Info) Description 08/18/2019 [place] [phone] Lizbeth Guzman APPLICATIONS PROJECT MANAGER [facility] DR [place] [address] Social History Tobacco Use Types Packs/Day Years [...] AM [place] [address] Mercy Amanda MD [facility] [address] [facility] [address] 04/01/2025 2:00 PM EDT [place] [address] Erum Szymanski MD [facility] [place] [address] documented as of this encounter Visit Diagnoses Not on filedocumented in this encounter Care Teams Forest Fire Control Officer Relationship Specialty Start Date End Date Sonido [place] PA [address] [place] [address] PCP - General Family Medicine 11/16/15 06/22/20 documented as of this encounter
--- OUTSIDE RECORDS SUMMARY | 2024-10-16 17:41 | XMS_ITS | Encounter Summary ---
Author Organization [facility] Address [facility] [place] [address] Care Team Providers Care Shuttle Fitting Supervisor Name Role Phone Sonido [place] Primary Care Provider +1- [phone] Encounter Details Date Type Department Care Team (Late st Contact Info) Description 12/31/2018 Orders Only [place] [phone] Jena Severino PA [facility] [place] [address] H pylori ulcer Social History Tobacco Use Types Packs/Day Years [...] AM EST Office [place] [phone] eMrcy Amanda MD [facility] [address] [facility] [address] 04/01/2025 2:00 PM EDT Office [place] [phone] Erum Szymanski MD [facility] [place] [address] documented as of this encounter Visit Diagnoses Diagnosis H pylori ulcer Gastric ulcer, unspecified as acute or chronic, without mention of hemorrhage, perforation, or obstruction documented in this encounter Care Teams Shuttle Fitting Supervisor Relationship Specialty Start Date End Date Sonido [place] PA [address] [place] [address] PCP - General Family Medicine 11/16/15 06/22/20 documented as of this encounter
--- OUTSIDE RECORDS SUMMARY | 2024-10-16 17:41 | XMS_ITS | Encounter Summary ---
Author Organization [facility] [place] [address] Care Team Providers Care State Epidemiologist Name Role Phone Sonido [place] Primary Care Provider +1- [phone] Encounter Details Date Type Department Care Team (Late st Contact Info) Description 06/12/2019 Orders [place] [address] Cisco Leroy LPN Nephrolithiasis Social History Tobacco Use Types Packs/Day [...] AM EST Office [place] [phone] Mercy Amanda MD [facility] [address] [facility] [address] 04/01/2025 2:00 PM EDT Office [place] [address] Erum Szymanski MD [facility] [place] [address] documented as of this encounter Visit Diagnoses Diagnosis Nephrolithiasis Calculus of kidney documented in this encounter Care Teams State Epidemiologist Relationship Specialty Start Date End Date Sonido [place] PA [address] [place] [address] PCP - General Family Medicine 11/16/15 06/22/20 documented as of this encounter
--- OUTSIDE RECORDS SUMMARY | 2024-10-16 17:41 | XMS_ITS | Encounter Summary ---
Author Organization [facility] Address [facility] [place] [address] Care Team Providers Care Welder Setter Electron Beam Machine Name Role Phone Sonido Cordoba Primary Care Provider +1- [phone] Reason for Visit * Reason Comments Follow-up Encounter Details Date Type Department Care Team (Late st Contact Info) Description 09/10/2018 2:00 PM EST Office [place] [address] Jena Severino PA [facility] [place] [address] H. pylori infection; Fatty liver Social History Tobacco Use Types [...] Sign Reading Time Taken Comments Blood Pressure 135/56 09/10/2018 1:55 PM EST Pulse 89 09/10/2018 1:55 PM EST Temperature - - Respiratory Rate - - Oxygen Saturation - - Inhaled Oxygen Concentration - - Weight 106.6 kg (235 lb) 09/10/2018 1:55 PM EST Height 162.6 cm (5' 4) 09/10/2018 1:55 PM EST Body Mass Index 40.34 09/10/2018 1:55 PM EST documented in this encounter Patient Instructions * Patient Instructions* Jena Severino - 09/10/2018 2:00 PM EST Thank you for coming in today. Here is a summary of what we discussed: 1. For H pylori infection: Take twice a day (AM and PM) for 2 weeks: Clarithromycin 500 mg (1 tab AM, 1 tab PM), Amoxicillin 500 mg (2 tabs AM, 2 tabs PM) and Protonix 20 mg (1 tab AM, 1 tab PM) No trazodone while you are taking these medications. 2. Two weeks after you finish the treatment, stop Protonix. You can take Tums and/or Pepcid for acid reflux symptoms. About 4-6 weeks after you finish the treatment, submit the stool sample to your local lab. Please let me know when and where you do this so I can get the results. 3. After you do the stool testing, you can go back to your regular dose of Protonix (one 40 mg tab in the morning, 30-60 minutes before breakfast). 4. Try 2 weeks of lactose free. You can use Lactaid milk (or soy, almond, rice milk). Avoid ice cream, cheese, cottage cheese. You can try hard cheese like super sharp cheddar or parmesan. Keep trackof your symptoms. 5. Follow up in 3 months. documented in this encounter Progress Notes * Jena Severino - 09/10/2018 2:00 PM EST Gastroenterology & Hepatology Follow Up Visit Note PCP: WANDY Aguilera Last Visit: 04/17/18: Vianney Chao Mao Cordero is a 42 y.o. female with medical history significant for hx Rodgers's esophagus, paraesophageal hernia s/p Tyesha fundoplication (2014). FHx positive for son with Celiac disease and mother with colon cancer. I first saw her as a new patient in consult for question ofchronic diarrhea x 2.5 months, although intermittent diarrhea for past ~3 yrs. Diarrhea is often postprandial, 3-4 BM/day, Canby scale 7 or 6. Urgency. Focal RUQ pain may be worse after meals x 4 yrs. Positive Carnett's sign. Plan: stool studies. Labs. Abdominal US 06/18/18: Postprandial diarrhea 90% of the time. Also has diarrhea without meals. 5-6 BM/day, Canby scale 7, Canby 6 sometimes. Urgency but no accidents. Sometimes has left sided pain/cramping with BM, relieves after BM. Bloated, not much gas. Some nausea, no vomiting. No GERD sx. Plan: Dietary changes. Imodium. Update in 2 weeks, can consider addition of Colestid. EGD and colonoscopy in Aug. Subjective: Interval Hx: She had difficulty with the colonoscopy prep, requests a different prep next time, can try Miralax prep. She tried the low Fodmap x 2 weeks. She reports that for the first few days of elimination things went back to normal, she was feeling better. But the effect was short lived. When reintroducing foods, she thinks dairy and cheese caused symptoms. Currently avoids milk, cottage cheese but is not strictly lactose free. Does have yogurt, cheese. -- she will try no cheese and lactose free. Bowels: BM first thing in the morning is normal. After meals, watery stool. Has 3-4 BM/day. No blood or black tarry stools. She does not take imodium. - No nausea, vomiting. Denies GERD since she started Protonix. PMHX: - Paraesophageal hiatal hernia repair and Tyesha fundoplication with Dr Moura on 04/05/2015. - Rodgers's esophagus - yearly EGD. Weight: 235 lbs today Appetite: low Diagnostic studies: 1. US abd limited, 03/15/16 [...] to control acid reflux. Avoid NSAIDs. Pathology: A - Duodenum, ??biopsy: Duodenal mucosa within [...] correlation are required to rule out nonspecific ??postinflammatory changes or inactive idiopathic inflammatory bowel disease. Sirius red stains are negative for subepithelial basement membrane thickening. ? ROS: Constitutional: + night sweats Denies unintended weight loss, fatigue, fever, ENT: Denies dysphagia, odynophagia Resp: Denies cough, shortness of breath Cardio: [...] Left ankle pain M25.572 CURRENT MEDICATIONS: ??? meclizine (ANTIVERT) 12.5 mg Tablet ??? gabapentin (NEURONTIN) 100 mg Capsule ??? pantoprazole (PROTONIX) 40 mg Tablet, Delayed Release (E.C.) ??? traZODone (DESYREL) 50 mg Tablet ??? gabapentin (NEURONTIN) 300 mg Capsule ??? Ketamine (Bulk) 100 % Powd 5 %, Gabapentin (Bulk) 100 % Powd 6 %, Diclofenac Sodium (Bulk) 100 % Powd 3 %, Lidocaine HCl (Bulk) 100 % Powd 5 % NSAIDs - none, irritates stomach Trazodone PRN Cyclobenzaprine for headaches ALLERGIES: Allergies Allergen Reactions ??? Oxycodone Nausea And Vomiting SURGICAL HISTORY: Past Surgical History: Procedure Laterality Date ??? DILATION AND CURETTAGE OF UTERUS 1994 ??? PRO COLONOSCOPY, BIOPSY N/A 08/21/2018 COLONOSCOPY FLEXIBLE, WITH BX (WRVU 3.66) performed by Erum Szymanski MD at [facility] ENDOSCOPY ??? PRO COLONOSCOPY, REMV LESN, SNARE N/A 08/21/2018 COLONOSCOPY, POLYPECTOMY, REMOVAL LESION BY SNARE (WRVU 4.67) performed by Erum Szymanski MD at [facility] ENDOSCOPY ? ? PRO CYSTO W URETEROSCOPY &/OR PYELOSCOPY, DX Right 06/01/2015 CYSTOURETEROSCOPY, DIAGNOSTIC performed by Darius Nuñez Jr., MD at [facility] MAIN OR ??? PRO CYSTOSCOPY, INSERT URETERAL STENT Right 06/01/2015 CYSTO, STENT PLACEMENT performed by Darius Nuñez Jr., MD at [facility] MAIN OR ??? PRO LAP, ESOPHAGOGAST FUNDOPLASTY N/A 04/05/2015 LAPAROSCOPIC TYESHA FUNDOPLASTY performed by Valentín Moura MD at [facility] MAIN OR ??? PRO PERCUT DILATN RENAL TRACT Right 06/01/2015 PERCUTANEOUS INTRO GUIDE WIRE TO ACCESS RENAL PELVIS,AND OR URETER, W\DILATION performed by Darius Nuñez Jr., MD at [facility] OR ??? PRO PERCUT REMV KID STONE, UP TO 2 CM Right 06/01/2015 NEPHROLITHOTOMY, ([facility]) PERCUTANEOUS performed by Darius Nuñez Jr., MD at [facility] OR ??? PRO UPPER GI ENDOSCOPY, BIOPSY N/A 01/27/2015 EGD WITH BIOPSY performed by Brandt Barlow MD at [facility] ENDOSCOPY ??? PRO UPPER GI ENDOSCOPY, BIOPSY N/A 02/28/2016 EGD WITH BIOPSY performed by Brandt Barlow MD at [facility] ENDOSCOPY ??? PRO UPPER GI ENDOSCOPY, BIOPSY N/A 09/04/2016 EGD WITH BIOPSY performed by Brandt Barlow MD at [facility] ENDOSCOPY ??? PRO UPPER GI ENDOSCOPY, BIOPSY N/A 09/24/2017 EGD WITH BIOPSY (WRVU 2.49) performed by Brandt Barlow MD at [facility] ENDOSCOPY ??? PRO UPPER GI ENDOSCOPY, BIOPSY N/A 08/21/2018 EGD WITH BIOPSY (WRVU 2.49) performed by Erum Szymanski MD at [facility] ENDOSCOPY ??? 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 There is no history of liver or pancreas disease. Objective: PHYSICAL EXAMINATION: Most Recent Vitals: 09/10/18 1355 BP: 135/56 Pulse: 89 Body mass index is 40.34 kg/m??. Alert, well-appearing, no acute distress. Appears stated age. Obese. Cooperates and answers questions appropriately. Mood appropriate, good eye contact, normal interaction Impression/Recommendations: Vianney Cordero is a 42 y.o. year old female with history of Rodgers's esophagus and hiatal hernia s/p Tyesha fundoplication who is here for follow up of diarrhea and abdominal cramping since ~February 2018 (about 4.5 months). FHx positive for son with Celiac disease and mother with colon cancer. We reviewed her recent EGD and colonoscopy results. EGD with evidence of duodenal ulcer and bx positive for H pylori infection. There is evidence of Rodgers's esophagus, as noted on past EGDs, but noevidence of dysplasia. Discussed 14 day H pylori treatment and stool testing 4-6 weeks after ending treatment to confirm eradication. Discussed potential interaction between trazodone (which she takes PRN) and clarithromycin, and she is agreeable to not taking trazodone during the treatment period.She should take 20 mg Protonix BID during the 2 week treatment and stop PPI for the 2-4 weeks priorto repeating the H pylori stool Ag test. She will resume 40 mg Protonix daily after stool testing. I will send in a small rx for 20 mg Protonix (she only has 40 mg tabs at home). Colonoscopy revealed 3 polyps, including one TA. Prior to this visit, I reviewed the colon biopsy findings with Dr. Szymanski, who performed the procedure. There is no evidence of active IBD, but it is unclear whether the changes could be related to chronic colitis vs a resolving (perhaps viral) gastro enteritis/colitis. Recommend a repeat colonoscopy in ~1 year to follow up on these findings and assess for healing/evaluate for IBD (or sooner if she develops new symptoms - worsening diarrhea, hematochezia). She had difficulty with the prep, requests Miralax prep next time. She had some short-lived benefit from the low Fodmap diet, but now continues to have postprandial diarrhea. She thinks dairy causes symptoms but has not tried eliminating this altogether so recommended a trial of 2 weeks without lactose to see how she does. Follow up 3 mo. Will schedule Fibroscan to follow up on abd US results of 05/01/18 noting mild hepatomegaly and fatty liver. Fatty liver also noted on 2016 US. We can schedule the Fibroscan on the same day as follow up. PLAN (printed for patient): 1. For H pylori infection: Take twice a day (AM and PM) for 2 weeks: Clarithromycin 500 mg (1 tab AM, 1 tab PM), Amoxicillin 500 mg (2 tabs AM, 2 tabs PM) and Protonix 20 mg (1 tab AM, 1 tab PM) No trazodone while you are taking these medications. 2. Two weeks after you finish the treatment, stop Protonix. You can take Tums and/or Pepcid for acid reflux symptoms. About 4-6 weeks after you finish the treatment, submit the stool sample to your local lab. Please let me know when and where you do this so I can get the results. 3. After you do the stool testing, you can go back to your regular dose of Protonix (one 40 mg tab in the morning, 30-60 minutes before breakfast). 4. Try 2 weeks of lactose free. You can use Lactaid milk (or soy, almond, rice milk). Avoid ice cream, cheese, cottage cheese. You can try hard cheese like super sharp cheddar or parmesan. Keep trackof your symptoms. 5. Follow up in 3 months. [Fibroscan on same day] 25 of this 30 minute visit was spent in discussion of the above. The patient was given my contact information and will call me with concerns or questions. Jena Severino PA-C Section of Gastroenterology [place] [address] documented in this encounter Plan of Treatment Upcoming Encounters Date Type Department Care Team (Late st Contact Info) Description 12/31/2024 10:00 AM EST Office [place] [phone] Mercy Amanda MD [facility] [address] [facility] [address] 04/01/2025 2:00 PM EDT Office [place] [phone] Erum Szymanski MD [facility] [place] [address] documented as of this encounter Results * [id number] (12/17/2018 10:30 AM EST) Narrative Awais Kebede PA - 12/17/2018 10:30 AM EST Awais Kebede PA ? 12/17/2018 11:06 AM [facility] Liver Fibrosis Assessment Report Indication: ?? Hepatomegaly and hepatic steatosis on ultrasound Performed by: ??WANDY Negrete Procedure: Vibration Controlled Transient Elastography (VCTE) or Fibroscan [place] Protocol: Patient's identity, procedure and site were [...] documented in this encounter Visit Diagnoses Diagnosis H. pylori infection Helicobacter pylori (H. pylori) Fatty liver Other chronic nonalcoholic liver disease Fatty liver Other chronic nonalcoholic liver disease documented in this encounter Care Teams Welder Setter Electron Beam Machine Relationship Specialty Start Date End Date Sonido Cordoba PA [address] [place] [address] PCP - General Family Medicine 11/16/15 06/22/20 documented as of this encounter
--- OUTSIDE RECORDS SUMMARY | 2024-10-16 17:41 | XMS_ITS | Encounter Summary ---
[place] [address] Care Team Providers Care Java Web Architect Name Role Phone Sonido Cordoba Primary Care Provider +1- [phone] Encounter Details Date Type Department Care Team (Late st Contact Info) Description 08/15/2019 Telephone [place] [address] Chanell Mcfadden Social History Tobacco Use Types Packs/Day Years [...] encounter Miscellaneous Notes * Telephone Encounter - Chanell Mcfadden - 08/15/2019 7:20 AM EDT Sent letter to patient to let know we need to reschedule her colonoscopy scheduled on 08/29/19. documented in this encounter Plan of Treatment Upcoming Encounters Date Type Department Care Team (Late st Contact Info) Description 12/31/2024 10:00 AM EST Office [place] [address] Mercy Amanda MD [facility] [address] [facility] [place] [address] 04/01/2025 2:00 PM EDT Office [place] [phone] Erum Szymanski MD [facility] [place] [address] documented as of this encounter Visit Diagnoses Not on filedocumented in this encounter Care Teams Java Web Architect Relationship Specialty Start Date End Date Sonido Cordoba PA [address] [place] [address] PCP - General Family Medicine 11/16/15 06/22/20 documented as of this encounter
--- OUTSIDE RECORDS SUMMARY | 2024-10-16 17:41 | XMS_ITS | Encounter Summary ---
[place] [address] Care Team Providers Care Blueprint Trimmer Name Role Phone Sonido Cordoba Primary Care Provider +1- [phone] Encounter Details Date Type Department Care Team (Late st Contact Info) Description 07/28/2019 Telephone [place] [address] [facility] Sanchez, [facility] Social History Tobacco Use Types Packs/Day Years [...] encounter Miscellaneous Notes * Telephone Encounter - Gracy Sanchez - 07/28/2019 1:07 PM EDT Called LVM X1 pt needs to be re-scheduled due to the Dr being out of town on SundayAugust 29 asof today (07/28) there are two spots available on Sunday the 18 depending on when she calls back. documented in this encounter Plan of Treatment Upcoming Encounters Date Type Department Care Team (Late st Contact Info) Description 12/31/2024 10:00 AM EST Office [place] [address] Mercy Amanda MD [facility] [address] [facility] [address] 04/01/2025 2:00 PM EDT Office Visit [place] [phone] Erum Szymanski MD [facility] [place] [address] documented as of this encounter Visit Diagnoses Not on filedocumented in this encounter Care Teams Blueprint Trimmer Relationship Specialty Start Date End Date Sonido Cordoba PA [address] [place] [address] PCP - General Family Medicine 11/16/15 06/22/20 documented as of this encounter
--- OUTSIDE RECORDS SUMMARY | 2024-10-16 17:41 | XMS_ITS | Encounter Summary ---
Author Organization [facility] Address [facility] [place] [address] Care Team Providers Care Feed And Farm Management Adviser Name Role Phone Sonido Cordoba Primary Care Provider [phone]- [phone] Encounter Details Date Type Department Care Team (Late st Contact Info) Description 12/17/2018 11:00 AM EST Office Visit Gastroenterology at [facility] [place] [id number] Jena Severino [place] [facility] [place] [address] H. pylori infection; Upper abdominal pain; Change in bowel habits; Fatty liver Social History Tobacco Use Types [...] Time Taken Comments Blood Pressure 146/68 12/17/2018 10:50 AM EST Pulse 66 12/17/2018 10:50 AM EST Temperature - - Respiratory Rate - - Oxygen Saturation - - Inhaled Oxygen Concentration - - Weight 110.2 kg (243 lb) 12/17/2018 10:50 AM EST Height 160 cm (5' 3) 12/17/2018 10:50 AM EST Body Mass Index 43.05 12/17/2018 10:50 AM EST documented in this encounter Patient Instructions * Patient Instructions* Jena Severino - 12/17/2018 11:00 AM EST Thank you for coming in today. Here is a summary of what we discussed: 1. Continue dairy (lactose) avoidance. You can try lactase enzyme supplement or use Lactaid or almond/soy milk. Super sharp cheeses and yogurts should be ok. 2. Take fiber - Metamucil or Benefiber - to help with your bowels. Start with 2 teaspoons in glass of water at night, increase slowly every few days to recommended dose. 3. I will be in touch about further treatment for H pylori, once I get those results. 4. Follow up 2-3 months. documented in this encounter Progress Notes * Jena Severino - 12/17/2018 11:00 AM EST Gastroenterology & Hepatology Follow Up Visit [...] yrs. Diarrhea is often postprandial, 3-4 BM/day, Portage scale 7 or 6. Urgency. Focal RUQ pain may be worse after meals x 4 yrs. Positive Carnett's sign. Plan: stool studies. Labs. Abdominal US 06/18/18: Postprandial diarrhea 90% of the time. Also has diarrhea without meals. 5-6 BM/day, Portage scale 7, Portage 6 sometimes. Urgency but no accidents. Sometimes [...] pylori treatment x 2 wks (clarithromycin, amox, protonix). Stool H pylori Ag testing 4-6 weeks after finishing treatment (prior 2 weeks off PPI, then ok to resume PPI). Trial lactose free x 2 weeks. Fibroscan at next visit. Subjective: Interval Hx: She completed the course of triple therapy for known H pylori infection, as we discussed following our last visit. Submitted stool testing to [facility] end Nov, and was told today at a visit with her PCP that stool test was still H pylori positive. She stopped PPI for the 2 weeks prior to submitting stool sample and is now back on Protonix 40 mg once daily. Overall, she did not think the H pylori treatment changed her symptoms much. She denies reflux, heartburn on daily PPI. Occasionally feels something stuck in her upper esophagus. No dysphagia or odynophagia. Since our last visit, she tried the Fodmap diet and found that lactose was the only thing she is sensitive to. When she is good about avoiding lactose, she notices that the abdominal pain, diarrhea and gas, bloating are improved, generally feels pretty good. However, she still has sharp pain RUQ pain like something pinching me in there starts within a few minutes of a meal and lasts couple of hours. Occurs most days. This pain does not change with lactose avoidance. Bowels: almost normal meaning that BMs are more solid but still on the looser side. Usually has abowel movement 1-2 times a day, sometimes skips 1-2 days and then has harder stool. Diarrhea has improved since I last saw her, stools are more solid now.She has had loose stools since her surgery. PMHX: - Paraesophageal hiatal hernia repair and Tyesha fundoplication with Dr Moura on 04/05/2015. - Rodgers's esophagus - yearly EGD. Weight: 243 lb today, Gained 8 lb since Sep. Appetite: low Diagnostic studies: 1. US abd [...] stomach. Esophageal mucosal changes ??suggestive of long-segment Rodgres's esophagus. Esophagus bx: Specialized metaplastic columnar mucosa [...] subepithelial basement membrane thickening. ? ROS: Constitutional: Denies unintended weight loss, fatigue, fever, night sweats ENT: Denies oral ulcers, dysphagia, odynophagia, hoarseness, globus Resp: Denies cough, shortness of breath Cardio: Denies chest pain, palpitations GI: see HPI Neuro: headaches new/worse since Oct 2018 MEDICAL HISTORY: Patient Active Problem List Diagnosis [...] Left ankle pain M25.572 CURRENT MEDICATIONS: ??? clarithromycin (BIAXIN) 500 mg Tablet ??? amoxicillin (AMOXIL) 500 mg [...] ??? gabapentin (NEURONTIN) 300 mg Capsule Reviewed 12/17/18: Cyclobenzaprine for headaches PRN, takes this very often, she is seeing a chiropractor and working with her PCP -- headaches new since Oct. Protonix 40 once daily Antivert PRN, infrequently Gabapentin 300 in AM, 100 in PM Trazodone PRN - very rarely NSAIDs - none, irritates stomach ALLERGIES: Allergies Allergen Reactions ??? Oxycodone Nausea And Vomiting SURGICAL HISTORY: Past Surgical History: Procedure Laterality Date ??? DILATION AND CURETTAGE OF UTERUS 1994 ??? PRO COLONOSCOPY, BIOPSY N/A 08/21/2018 COLONOSCOPY FLEXIBLE, WITH BX (WRVU 3.66) performed by Erum Szymanski MD at [facility] ENDOSCOPY ??? PRO COLONOSCOPY, REMV LESN, SNARE N/A 08/21/2018 COLONOSCOPY, POLYPECTOMY, REMOVAL LESION BY SNARE (WRVU 4.67) performed by Erum Szymanski MD at [facility] ENDOSCOPY ? ? PRO CYSTO W URETEROSCOPY &/OR PYELOSCOPY, DX Right 06/01/2015 CYSTOURETEROSCOPY, DIAGNOSTIC performed by Darius Nuñez Jr., MD at [facility] OR ??? PRO CYSTOSCOPY, INSERT URETERAL STENT Right 06/01/2015 CYSTO, STENT PLACEMENT performed by Darius Nuñez Jr., MD at [facility] OR ??? PRO LAP, ESOPHAGOGAST FUNDOPLASTY N/A 04/05/2015 LAPAROSCOPIC TYESHA FUNDOPLASTY performed by Valentín Moura MD at [facility] OR ??? PRO PERCUT DILATN RENAL TRACT Right 06/01/2015 PERCUTANEOUS INTRO GUIDE WIRE TO ACCESS RENAL PELVIS,AND OR URETER, W\DILATION performed by Darius Nuñez Jr., MD at [facility] OR ??? PRO PERCUT REMV KID STONE, UP TO 2 CM Right 06/01/2015 NEPHROLITHOTOMY, (PCNL) PERCUTANEOUS performed by Darius Nuñez Jr., MD at [facility] OR ??? PRO UPPER GI ENDOSCOPY, BIOPSY N/A 01/27/2015 EGD WITH BIOPSY performed by Brandt Barlow MD at [facility] ENDOSCOPY ??? PRO UPPER GI ENDOSCOPY, BIOPSY N/A 02/28/2016 EGD WITH BIOPSY performed by Brandt Barlow MD at [facility] ENDOSCOPY ??? PRO UPPER GI ENDOSCOPY, BIOPSY N/A 09/04/2016 EGD WITH BIOPSY performed by Brandt Barlow MD at [facility] ENDOSCOPY ??? PRO UPPER GI ENDOSCOPY, BIOPSY N/A 09/24/2017 EGD WITH BIOPSY (WRVU 2.49) performed by Brandt Barlow MD at [facility] ENDOSCOPY ??? PRO UPPER GI ENDOSCOPY, BIOPSY N/A 08/21/2018 EGD WITH BIOPSY (WRVU 2.49) performed by Erum Szymanski MD at [facility] ENDOSCOPY ??? 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 There is no history of liver or pancreas disease. Objective: PHYSICAL EXAMINATION: Most Recent Vitals: 12/17/18 1050 BP: 146/68 Pulse: 66 Body mass index is 43.05 kg/m??. Alert, well-appearing, no acute distress. Appears stated age. Obese. Cooperates and answers questions appropriately. Mood appropriate, good eye contact, normal interaction. Accompanied by her partner. Impression/Recommendations: Vianney Cordero is a 43 y.o. year old female with history of Rodgers's esophagus and hiatal hernia s/p Tyesha fundoplication who is here for follow up of diarrhea and abdominal pain since ~February 2018. FHx positive for son with Celiac disease and mother with colon cancer. An EGD in Aug 2018 revealed long- segment Rodgers's esophagus, normal duodenal biopsies and bx positive for H pylori infection. A colonoscopy at that time was notable for 7 polyps (hyperplastic and TAs) and biopsies positive for mild inactive inflammatory changes of unclear etiology. There was no evidence of active IBD;the inflammation may be related to chronic colitis vs a resolving (perhaps viral) gastroenteritis/colitis, and we plan to repeat the colonoscopy in 1 yr to assess for any changes. Since our last visit she completed triple therapy for H pylori infection and tells me that her follow up H pylori stool antigen test was positive today (I do not have the results, will obtain). We discussed that I will review with an attending and let her know about next line of treatment. (After this visit, discussed with Dr. Szymanski; will treat with Pylera 3 tabs four times daily plus 40 mg Protonix BID x 2 weeks. Repeat stool testing 4-6 weeks later, off PPI, to confirm eradication). Some of her GI symptoms have improved with the lactose elimination diet changes we discussed at last visit. Her diarrhea has significantly improved, stools more formed. Recommended trial of fiber to further bulk the stools. She still has post-prandial sharp RUQ pain. Discussed that it could be related to duodenal ulcer/H pylori, post-surgical gas/bloat, post-surgical adhesions, functional dyspepsia or biliary dyskinesia/gallbladder issue. An abd US in April 2018 did not show evidence of gallstones/sludge and her LFTs are normal. We briefly discussed the possibility of a HIDA scan to further evaluate the gallbladder. After discussion with Dr. Szymanski, will see if re-treating H pylori improves her symptoms and consider repeat EGD for persistent symptoms to check for healing of her duodenal ulcer. Will also recommendtrial of low fat diet and small, frequent meals. Consider HIDA in future for persistent symptoms. She had a Fibroscan earlier today which showed fatty liver without significant fibrosis (see today's procedure note from Harish Kebede PA-C). Since she has not had testing to rule out viral etiology of fatty liver, which can present with normal LFTs, we will check this (Hep B sAg, Hep C Ab). She jacinto this locally or at next visit. I tried to reach her by phone after this visit to review treatment plan, but was unable connect with her. Will send an electronic message via [employer]. PLAN (printed for patient): 1. Continue dairy (lactose) avoidance. You can try lactase enzyme supplement or use Lactaid or almond/soy milk. Super sharp cheeses and yogurts should be ok. 2. Take fiber - Metamucil or Benefiber - to help with your bowels. Start with 2 teaspoons in glass of water at night, increase slowly every few days to recommended dose. 3. I will be in touch about further treatment for H pylori, once I get those results. 4. Follow up 2-3 months. 25 of this 30 minute visit was spent in discussion of the above. The patient was given my contact information and will call me with concerns or questions. Ptn was reviewed and discussed with Dr. Erum Szymanski. Jena Severino PA-C Section of Gastroenterology [place] [address] documented in this encounter Plan of Treatment Upcoming Encounters Date Type Department Care Team (Late st Contact Info) Description 12/31/2024 10:00 AM EST [place] [address] Mercy Amanda MD [facility] [address] [facility] [address] 04/01/2025 2:00 PM EDT Office [place] [address] Erum Szymanski MD [facility] [place] [address] documented as of this encounter Visit Diagnoses Diagnosis H. pylori infection Helicobacter pylori (H. pylori) Upper abdominal pain Abdominal pain, other specified site Change in bowel habits Other symptoms involving digestive system Fatty liver Other chronic nonalcoholic liver disease documented in this encounter Care Teams Feed And Farm Management Adviser Relationship Specialty Start Date End Date Sonido Cordoba PA [address] [place] [address] PCP - General Family Medicine 11/16/15 06/22/20 documented as of this encounter
--- OUTSIDE RECORDS SUMMARY | 2024-10-16 17:41 | XMS_ITS | Encounter Summary ---
Author Organization [facility] Address [facility] [place] [address] Care Team Providers Care Agronomy Professor Name Role Phone Snoido Cordoba Primary Care Provider +1- [phone] Encounter Details Date Type Department Care Team (Late st Contact Info) Description 06/18/2018 9:00 AM EDT Office [place] [address] Jena Severino PA [facility] [place] [address] Diarrhea, unspecified type; Lower abdominal pain; 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 Social History Tobacco Use Types Packs/Day Years Used Date Smoking Tobacco: Former Cigarettes 0.5 6 0 01/25/1991 - 01/25/1997 Smokeless Tobacco: Never Alcohol Use Standard Drinks/Week Comments No 0 (1 standard drink = 0.6 oz pur e alcohol) Sex and Gender Information Value Date Recorded Sex Assigned at Not on file Gender Identity Female 08/09/2020 11:37 PM EDT Sexual Orientation Not on file documented as of this encounter Last Filed Vital Signs Vital Sign Reading Time Taken Comments Blood Pressure 136/65 06/18/2018 9:15 AM EDT Pulse 64 06/18/2018 9:15 AM EDT Temperature - - Respiratory Rate - - Oxygen Saturation - - Inhaled Oxygen Concentration - - Weight 104.5 kg (230 lb 6.4 oz) 06/18/2018 9:15 AM EDT Height 162.6 cm (5' 4) 06/18/2018 9:15 AM EDT Body Mass Index 39.55 06/18/2018 9:15 AM EDT documented in this encounter Patient Instructions * Patient Instructions* Jena Severino - 06/18/2018 9:00 AM EDT Thank you for coming in today. Here is a summary of what we discussed: 1. Follow dietary changes as we discussed -see handouts 2. OK to use imodium for diarrhea- start with 1 tab/day, increase slowly (up to 4 tabs daily- before each meal and at night) 3. Let me know how you are doing in a couple of weeks. If no improvement with diet, we can considera medication for diarrhea (colestid) 4. Schedule colonoscopy and upper endoscopy for Aug 2018 5. Follow up 3 months documented in this encounter Progress Notes * Jena Severino - 06/18/2018 9:00 AM EDT Gastroenterology & Hepatology Follow Up Visit Note PCP: WANDY Aguilera Last Visit: 04/17/18: Vianney Cordero is a 42 y.o. female with medical history significant for hx Rodgers's esophagus, paraesophageal hernia s/p Tyesha fundoplication (2015). I first saw her as a new patient in consult for question of chronic diarrhea x 2.5 months, although intermittent diarrhea for past~3 yrs. Diarrhea is often postprandial, 3-4 BM/day, Durbin scale 7 or 6. Urgency. Focal RUQ pain may be worse after meals x 4 yrs. Positive Carnett's sign. Plan: stool studies. Labs. Abdominal US Subjective: Interval Hx: Diarrhea is usually after she eats 90% of the time. Sometimes diarrhea without meals. Has 5-6 BM/day, Durbin scale 7, Durbin 6 sometimes. No hard pellety stools. No blood or black tarry stools. Urgency but no accidents. No nocturnal diarrhea. Sometimes has left sided pain/cramping with BM, relieves after BM. Bloated, not much gas. - She has not tried imodium or other antidiarrheals. She denies acid reflux and heartburn. No dysphagia. - Some nausea, no vomiting. - Paraesophageal hiatal hernia repair and Tyesha fundoplication with Dr Moura on 04/05/2015.. She is due for upper endoscopy in August, has this yearly, last was 09/2017. Weight: 230 lbs today, 5 lb gain since 04/17/18 visit. She reports intentional 10 lb loss through exercise Appetite: low Exercise: hiking Diagnostic studies: 1. US abd limited, 03/15/16 [...] TTG IgA neg, IgA nl. TSH nl. ? ROS: Constitutional: + fatigue Denies unintended weight loss, night sweats, fever ENT: Denies dysphagia, odynophagia Resp: Denies short of breath, cough Cardio: Denies chest pain : Denies dysuria, incontinence GI: see HPI Neuro: + frequent headaches, ongoing ALL/IMMUNO: + Seasonal allergies. MEDICAL HISTORY: Patient Active Problem List Diagnosis [...] 5 % NSAIDs - none, irritates stomach ALLERGIES: Allergies Allergen Reactions ??? Oxycodone Nausea And Vomiting SURGICAL HISTORY: Past Surgical History: Procedure Laterality Date ??? DILATION AND CURETTAGE OF UTERUS 1994 ??? PRO CYSTO/URETERO/PYELOSCOPY, DX Right 06/01/2015 CYSTOURETEROSCOPY, DIAGNOSTIC performed by Darius Nuñez Jr., MD at [facility] MAIN OR ??? PRO CYSTOSCOPY, INSERT URETERAL STENT Right 06/01/2015 CYSTO, STENT PLACEMENT performed by Darius Nuñez Jr., MD at [facility] MAIN OR ??? PRO LAP, ESOPHAGOGAST FUNDOPLASTY N/A 04/05/2015 LAPAROSCOPIC TYESHA FUNDOPLASTY performed by Valentín Moura MD at [facility] MAIN OR ??? PRO PERCUT DILATN RENAL TRACT Right 06/01/2015 PERCUTANEOUS INTRO GUIDE WIRE TO ACCESS RENAL PELVIS,AND OR URETER, W\DILATION performed by Darius Nuñez Jr., MD at [facility] MAIN OR ??? PRO PERCUT REMV KID STONE, UP TO 2 CM Right 06/01/2015 NEPHROLITHOTOMY, (PCNL) PERCUTANEOUS performed by Darius Nuñez Jr., MD at [facility] MAIN OR ??? PRO UPPER GI ENDOSCOPY, BIOPSY N/A 01/27/2015 EGD WITH BIOPSY performed by Brandt Barlow MD at [facility] ENDOSCOPY ??? PRO UPPER GI ENDOSCOPY, BIOPSY N/A 02/28/2016 EGD WITH BIOPSY performed by Brandt Barlow MD at [facility] ENDOSCOPY ??? PRO UPPER GI ENDOSCOPY, BIOPSY N/A 09/04/2016 EGD WITH BIOPSY performed by Brandt Barlow MD at [facility] ENDOSCOPY ??? PRO UPPER GI ENDOSCOPY, BIOPSY N/A 09/24/2017 EGD WITH BIOPSY (WRVU 2.49) performed by Brandt Barlow MD at [facility] ENDOSCOPY ??? 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 There is no history of liver or pancreas disease. Objective: PHYSICAL EXAMINATION: Most Recent Vitals: 06/18/18 0915 BP: 136/65 Pulse: 64 Body mass index is 39.55 kg/(m^2). Alert, well-appearing, no acute distress. Appears stated age. Obese. Cooperates and answers questions appropriately. Accompanied by her partner. Mood appropriate, good eye contact, normal interaction Impression/Recommendations: Vianney Cordero is a 42 y.o. year old female with history of Rodgers's esophagus and hiatal hernia s/p Tyesha fundoplication who is here for follow up of diarrhea and abdominal cramping since ~February 2018 (about 4.5 months). FHx positive for son with Celiac disease and mother with colon cancer. Her symptoms continue, same as last visit. We reviewed her test results- stool studies negative for infectious etiologies, calprotectin nl. Lab work is essentially normal, Celiac negative, TSH normal. CRP mildly elevated at 8.0; we discussed that this is nonspecific. Consider IBS-D (possibly post-infectious) although she does not meet criteria based on duration of symptoms vs microscopic colitis. Medication risk factors include daily PPI. She has regular endoscopic follow up for Rodgers's esophagus due in August. We will add a colonoscopy at that time to evaluate for microscopic colitis, IBD, mass. In the mean time, she will try the low Fodmap diet, and if not helpful in 2-4 weeks, she will let me know via myDH. We can add a bile acid binder to see if this helps. I told her ok to take imodium PRN. We discussed finding of mild hepatomegaly and fatty liver on 05/01/18 abdominal US, which was also noted on 2016 US. Discussed importance of weight loss and exercise. I provided information on the Mediterranean diet. Discussed doing a fibroscan, which we can coordinate with a future visit. PLAN (printed for patient): 1. Follow dietary changes as we discussed -see handouts 2. OK to use imodium for diarrhea- start with 1 tab/day, increase slowly (up to 4 tabs daily- before each meal and at night) 3. Let me know how you are doing in a couple of weeks. If no improvement with diet, we can considera medication for diarrhea (Colestid) 4. Schedule colonoscopy and upper endoscopy for Aug 2018 5. Follow up 3 months 20 of this 25 minute visit was spent in discussion of the above. The patient was given my contact information and will call me with concerns or questions. Jena Severino PA-C Section of Gastroenterology [place] [address] documented in this encounter Plan of Treatment Upcoming Encounters Date Type Department Care Team (Late Contact Info) Description 12/31/2024 10:00 AM EST Office [place] [address] Mercy Amanda MD [facility] [address] [facility] [address] 04/01/2025 2:00 PM EDT Office [place] [address] Erum Szymanski MD [facility] [place] [address] Scheduled Orders Name Type Priority Associated Diagnoses Orde r Schedule COLONOSCOPY Procedures Routine Diarrhea, unspecified type Ordered: 06/18/2018 UPPER GI ENDOSCOPY Procedures Routine 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 Ordered: 06/18/2018 documented as of this encounter Visit Diagnoses Diagnosis Diarrhea, unspecified type Lower abdominal pain Abdominal pain, other specified site 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 Rodgers's esophagus documented in this encounter Care Teams Agronomy Professor Relationship Specialty Start Date End Date Sonido Cordoba PA [address] [place] [address] PCP - General Family Medicine 11/16/15 06/22/20 documented as of this encounter
--- OUTSIDE RECORDS SUMMARY | 2024-10-16 17:41 | XMS_ITS | Encounter Summary ---
Author Organization [facility] Address [facility] [place] [address] Care Team Providers Care Global Sales Director Name Role Phone Sonido Cordoba Primary Care Provider [phone]- [phone] Encounter Details Date Type Department Care Team (Late st Contact Info) Description 12/20/2018 Orders [place] [phone] eJna Severino PA [facility] [place] [address] H. pylori infection; Fatty liver Social History [...] AM EST Office [place] [phone] Mercy Amanda MD [facility] [address] [place] [address] 04/01/2025 2:00 PM EDT Office [place] [phone] Erum Szymanski MD [facility] [place] [address] documented as of this encounter Visit Diagnoses Diagnosis H. pylori infection Helicobacter pylori (H. pylori) Fatty liver Other chronic nonalcoholic liver disease documented in this encounter Care Teams Global Sales Director Relationship Specialty Start Date End Date Sonido Cordoba PA [address] [place] [address] PCP - General Family Medicine 11/16/15 06/22/20 documented as of this encounter
--- OUTSIDE RECORDS SUMMARY | 2024-10-16 17:41 | XMS_ITS | Encounter Summary ---
Author Organization [facility] [place] [address] Care Team Providers Care Manager Product Design Name Role Phone Sonido Cordoba Primary Care Provider +1- [phone] Encounter Details Date Type Department Care Team (Late st Contact Info) Description 12/17/2018 Orders Only [place] [phone] Erum Szymanski MD [facility] [address] Social History Tobacco Use Types Packs/Day Years [...] AM EST Office Visit [place] [phone] Mercy Amanda MD [facility] [address] [place] [address] 04/01/2025 2:00 PM EDT Office Visit [place] [address] Erum Szymanski MD [facility] [place] [address] documented as of this encounter Visit Diagnoses Not on filedocumented in this encounter Care Teams Manager Product Design Relationship Specialty Start Date End Date Sonido Cordoba PA [address] [place] [address] PCP - General Family Medicine 11/16/15 06/22/20 documented as of this encounter
--- OUTSIDE RECORDS SUMMARY | 2024-10-16 17:41 | XMS_ITS | Encounter Summary ---
[place] [address] Care Team Providers Care Wind Plant Manager Name Role Phone Sonido Cordoba Primary Care Provider +1- [phone] Encounter Details Date Type Department Care Team (Late st Contact Info) Description 03/21/2019 4:30 PM EDT Tech Visit [place] [address] Cydney Branham, PARAPROFESSIONAL INTERPRETER [address] [place] [address] Social History Tobacco Use Types Packs/Day Years [...] AM EST Office Visit [place] [address] Mercy Amanda MD [facility] [address] [facility] [address] 04/01/2025 2:00 PM EDT Office Visit [place] [phone] Erum Szymanski MD [facility] [place] [address] documented as of this encounter Visit Diagnoses Not on filedocumented in this encounter Care Teams Wind Plant Manager Relationship Specialty Start Date End Date Sonido Cordoba PA [address] [place] [address] PCP - General Family Medicine 11/16/15 06/22/20 documented as of this encounter
--- OUTSIDE RECORDS SUMMARY | 2024-10-16 17:41 | XMS_ITS | Encounter Summary ---
Author Organization [facility] [place] [place] [address] Care Team Providers Care Lactation Consultant Name Role Phone Sonido Cordoba Primary Care Provider +1- [phone] Reason for Referral * Consultation (Routine) - Closed Specialty Diagnoses / Procedures Referred By Aric madrigal Referred To Contact Orthopaedics Diagnoses Peroneal tendinitis of right lower extremity Peroneal tendinitis of right foot Tyler Nava DPM [facility] [place] [address] Humera Martinez MD [facility] [place] [address] Referral ID Status Reason Start Date Expiration Date V isits Requested Visits Authorized [id number] Closed Consult, Test & Treat 07/30/2019 07/29/2020 1 1 Encounter Details Date Type Department Care Team (Late st Contact Info) Description 07/30/2019 Orders Only Podiatry at [facility] [place] [address] Tyler Nava DPM [facility] [place] [address] [phone] Peroneal tendinitis of right lower extremity Social [...] AM EST Office [place] [address] Mercy Amanda MD [facility] [address] [facility] [address] 04/01/2025 2:00 PM EDT Office [place] [address] Erum Szymanski MD [facility] [place] [address] Scheduled Referrals Name Type Priority Associated Diagnoses Order Schedule Referral to Orthopaedics Outpatient Referral Routine Peroneal tendinitis of right lower extremity Ordered: 07/30/2019 documented as of this encounter Visit Diagnoses Diagnosis Peroneal tendinitis of right lower extremity Other enthesopathy of ankle and tarsus documented in this encounter Care Teams Lactation Consultant Relationship Specialty Start Date End Date Sonido Cordoba PA [address] [place] [address] PCP - General Family Medicine 11/16/15 06/22/20 documented as of this encounter
--- OUTSIDE RECORDS SUMMARY | 2024-10-16 17:41 | XMS_ITS | Encounter Summary ---
Author Organization [facility] [place] [address] Care Team Providers Care Utility Plant Operative Name Role Phone Sonido Cordoba Primary Care Provider +1- [phone] Reason for Visit * Reason Comments Right Foot Pain * Consultation (Routine) - Specialty Diagnoses / Procedures Referred By Aric madrigal Referred To Contact Podiatry Diagnoses PLANTAR FASCIITIS, RIGHT Sonido Cordoba PA [address] [place] [address] [facility] [place] [address] Referral ID Status Reason Start Date Expiration Date V isits Requested Visits Authorized [id number] Consult, Test & Treat [facility] 12/23/2018 12/23/2019 6 6 Encounter Details Date Type Department Care Team (Late st Contact Info) Description 03/19/2019 10:00 AM EDT Office [place] [address] Tyler Nava [place] [address] Right foot pain; Peroneal tendinitis of right lower extremity Social [...] Sign Reading Time Taken Comments Blood Pressure 129/71 03/19/2019 10:00 AM EDT Pulse - - Temperature - - Respiratory Rate - - Oxygen Saturation - - Inhaled Oxygen Concentration - - Weight - - Height - - Body Mass Index - - documented in this encounter Progress Notes * Tyler Nava DPM - 03/19/2019 10:00 AM EDT Podiatry Consultation Note Tyler Nava DPM PCP: WANDY Agu[place]era SUBJECTIVE Chief complaint: Vianney Cordero presents with a chief complaint of a painful right foot. This has been a problem for about a year. Pain is most noticeable with increased activity. Patient very uncomfortable at the end of the workday. The patient recalls no specific injury. Accompanied by her . Chart reviewed. Reviewed patient's current problem list, medications and allergies. Review of Systems: General - The patient reports feeling well today. Denies fever or chills. Neurologic- Denies numbness, tingling or burning in the feet. OBJECTIVE BP 129/71 The Patient is alert and oriented x 3. Affect is appropriate. Dorsalis Pedis pulses palpable bilaterally. Posterior Tibial pulses palpable bilaterally. Light touch is grossly intact bilaterally. Muscle strength is +5/5 in all 3 lower leg muscle groups bilaterally. The patient has tenderness with palpation around the insertion of peroneus brevis into the base of the fifth metatarsal right. Mild edema at this site. Some mild tenderness with palpation along the course of the peroneus brevis tendon up into the right lower leg. Radiographs taken today consisting of 3 views of the right foot weightbearing reveal no osseous pathology at the base of the fifth metatarsal. Patient maintains the longitudinal arch of her foot. Shehas a large plantar calcaneal spur. ASSESSMENT Peroneus brevis tendinitis right foot. PLAN Reviewed etiology of this problem. Reviewed treatment options. Applied removable foot strap to the right foot. Discussed appropriate shoes. Patient is going to purchase some new athletic shoes for work. We reviewed characteristics to look for. Rx diclofenac gel. Follow-up in 3 weeks. Addendum: 10/19/20 The patient had contacted me about her initial visit. She reports that, in fact this injury to her right foot occurred at work in September 2017. She tripped over a car seat in the office at the [employer] she was working at. I had incorrectly dictated that this there was no specific injury. After speaking with the patient I remembered her describing this injury to me and this addendum is to correct the note from 03/20/2019. documented in this encounter Plan of Treatment Upcoming Encounters Date Type Department Care Team (Late st Contact Info) Description 12/31/2024 10:00 AM EST Office [place] [address] Mercy Amanda MD [facility] [address] [facility] [place] [address] 04/01/2025 2:00 PM EDT Office [place] [address] Erum Szymanski MD [facility] [address] documented as of this encounter Results * XR Foot Min 3 views Right (Generic) (03/19/2019 10:48 AM EDT) Anatomical Region Laterality Modality Foot Right Digital Radiogra phy Impressions 03/19/2019 2:23 PM EDT No acute osseous pathology. Thank you for letting us participate in the care of this patient. For questions regarding this report, please contact the number below. ? Narrative 03/19/2019 2:23 PM EDT EXAMINATION: XR FOOT MIN 3 VIEWS RIGHT (GENERIC) CLINICAL HISTORY: lateral right midfoot pain x 1 year. No injury TECHNIQUE: AP, oblique and lateral of the right foot. COMPARISON: None FINDINGS: No fracture or dislocation is present. The joint spaces are intact. There is an enthesophyte at the origin of the plantar fascia from the posterior calcaneus. Procedure Note Mynor Jain MD - 03/19/2019 EXAMINATION: XR FOOT MIN 3 VIEWS RIGHT (GENERIC) CLINICAL HISTORY: lateral right midfoot pain x 1 year. No injury TECHNIQUE: AP, oblique and lateral of the right foot. COMPARISON: None FINDINGS: No fracture or dislocation is present. The joint spaces are intact. There is an enthesophyte at the origin of the plantar fascia from theposterior calcaneus. IMPRESSION No acute osseous pathology. Thank you for letting us participate in the care of this patient. Forquestions regarding this report, please contact the number below. Tyler Nava DPRadha IMG DX ORDERABLES documented in this encounter Visit Diagnoses Diagnosis Right foot pain Pain in limb Peroneal tendinitis of right lower extremity Other enthesopathy of ankle and tarsus Right foot pain Pain in limb documented in this encounter Care Teams Utility Plant Operative Relationship Specialty Start Date End Date Sonido Cordoba PA [address] [place] [address] PCP - General Family Medicine 07/06/20 documented as of this encounter
--- OUTSIDE RECORDS SUMMARY | 2024-10-16 17:41 | XMS_ITS | Encounter Summary ---
[place] [address] Care Team Providers Care Windshield Wiper Repairer Name Role Phone Sonido Cordoba Primary Care Provider +1- [phone] Reason for Visit * Reason Onset Date Comments Prior Authorization 09/13/2018 Encounter Details Date Type Department Care Team (Late st Contact Info) Description 09/13/2018 Telephone [place] [address] Kaia Cherry CCMA Prior Authorization Social History [...] Notes * Telephone Encounter - Kaia Cherry LNA - 09/13/2018 1:15 PM EST Medication Prior Authorization 4L Gastroenterology / [place] [address] Subscriber Insurance: [place] Medicaid Phone: Fax: Physician: Jena Severino Return [facility]: [facility] Phone: Fax: Medication Requested: Pantoprazole Strength: 20MG Frequency: Take 1 tablet by mouth twice a day before meals Disp.: 60 Refills: 0 Currently taking: Diagnosis for this medication: H. Pylori ICD-10 code: (A04.8) Prior medications trialed in this patient: Medication: Outcome/Adverse Reactions: Decision: Denied Tracking number/Case number/Reference number: Effective date: Start: End: documented in this encounter Plan of Treatment Upcoming Encounters Date Type Department Care Team (Late st Contact Info) Description 12/31/2024 10:00 AM EST Office Visit Weight Center at [place] [phone] Mercy Amanda MD [facility] [address] [facility] [address] 04/01/2025 2:00 PM EDT Office Visit [place] [address] Erum Szymanski MD [facility] [place] [address] documented as of this encounter Visit Diagnoses Not on filedocumented in this encounter Care Teams Windshield Wiper Repairer Relationship Specialty Start Date End Date Sonido Cordoba PA [address] [place] [address] PCP - General Family Medicine 11/16/15 06/22/20 documented as of this encounter
--- OUTSIDE RECORDS SUMMARY | 2024-10-16 17:41 | XMS_ITS | Encounter Summary ---
Author Organization [facility] [place] [address] Care Team Providers Care Cattle Care Worker Name Role Phone Sonido Cordoba Primary Care Provider +1- [phone] Encounter Details Date Type Department Care Team (Latest Contact Info) Description 08/21/2018 9:12 AM EDT - 08/21/2018 12:41 PM EDT Hospital Encounter [place] [address] Erum Szymanski MD [facility] [place] [address] Discharge Disposition: Home Social History Tobacco Use [...] Sign Reading Time Taken Comments Blood Pressure 130/75 08/21/2018 12:15 PM EDT Pulse 89 08/21/2018 11:20 AM EDT Temperature 37 ??C (98.6 ??F) 08/21/2018 9:28 AM EDT Respiratory Rate 16 08/21/2018 11:50 AM EDT Oxygen Saturation 95% 08/21/2018 12:15 PM EDT Inhaled Oxygen Concentration - - Weight - - Height - - Body Mass Index - - documented in this encounter Discharge Instructions * Discharge Instructions* Magnolia Anguiano RN - 08/21/2018 11:31 AM EDT Please call [phone] before 8pm Mon-Fri with problems, questions or concerns. If you call after 8pm or on weekends, call the Hospital at [phone] and ask to speak to the Cable Splicer Assistant concrete fence builder and the yarn texturing machine operator will contact that person for you. * Attachments The following attachments cannot be sent through Care Everywhere. * COLONOSCOPY: POST-OP (CONGOLESE) * COLON POLYPS (CONGOLESE) * EGD (UPPER ENDOSCOPY): POST-OP (CONGOLESE) * JEAN BAPTISTE'S ESOPHAGUS (CONGOLESE) documented in this encounter Medications at Time [...] AM EST Office [place] [address] Mercy Amanda MD [facility] [address] [facility] [place] [address] 04/01/2025 2:00 PM EDT Office Visit Gastroenterology at [facility] [place] [address] Erum Szymanski MD [facility] [place] [address] documented as of this encounter Procedures Procedure [...] AM EDT 08/21/2018 11:20 AM EDT Narrative [facility] - 08/21/2018 11:20 AM EDT Specimen requisition ordered. ??Separate Pathology report to follow Erum Szymanski MD PATHOLOGY/CYTOLOGY O ZHANNA Performing Organization Address [facility]/ZIP Co de Phone Number [facility] [place] [address] * Specimen to Pathology (08/21/2018 11:20 AM EDT) AP Specimen 08/21/2018 11:2 0 AM EDT 08/21/2018 11:20 AM EDT Narrative [facility] - 08/21/2018 11:20 AM EDT Specimen requisition ordered. ??Separate Pathology report to follow Eurm Szymanski MD PATHOLOGY/[place] [address] * Specimen to Pathology (08/21/2018 11:20 AM EDT) AP Specimen 08/21/2018 11:2 0 AM EDT 08/21/2018 11:20 AM EDT Narrative [facility] - 08/21/2018 11:20 AM EDT Specimen requisition ordered. ??Separate Pathology report to follow Erum Szymanski MD PATHOLOGY/[place] [address] * Specimen to Pathology (08/21/2018 11:20 AM EDT) AP Specimen 08/21/2018 11:2 0 AM EDT 08/21/2018 11:20 AM EDT Narrative [facility] - 08/21/2018 11:20 AM EDT Specimen requisition ordered. ??Separate Pathology report to follow Erum Szymanski MD PATHOLOGY/CYTOLOGY O RDERAYESENIA Performing Organization Address City/[facility]/[place] [address] * Specimen to Pathology (08/21/2018 11:20 AM EDT) AP Specimen 08/21/2018 11:2 0 AM EDT 08/21/2018 11:20 AM EDT Narrative [facility] - 08/21/2018 11:20 AM EDT Specimen requisition ordered. ??Separate Pathology report to follow Erum Szymanski MD PATHOLOGY/CYTOLOGY O RDERABLES Performing Organization Address City/[facility]/[place] [address] * Specimen to Pathology (08/21/2018 11:20 AM EDT) AP Specimen 08/21/2018 11:2 0 AM EDT 08/21/2018 11:20 AM EDT Narrative [facility] - 08/21/2018 11:20 AM EDT Specimen requisition ordered. ??Separate Pathology report to follow Erum Szymanski MD PATHOLOGY/CYTOLOGY O RDERAYESENIA Performing Organization Address City/[facility]/[place] [address] * Specimen to Pathology (08/21/2018 11:20 AM EDT) AP Specimen 08/21/2018 11:2 0 AM EDT 08/21/2018 11:20 AM EDT Narrative [facility] - 08/21/2018 11:20 AM EDT Specimen requisition ordered. ??Separate Pathology report to follow Erum Szymanski MD PATHOLOGY/CYTOLOGY O ZHANNA Performing Organization Address [facility]/[place] [address] * Specimen to Pathology (08/21/2018 11:20 AM EDT) AP Specimen 08/21/2018 11:2 0 AM EDT 08/21/2018 11:20 AM EDT Narrative [facility] - 08/21/2018 11:20 AM EDT Specimen requisition ordered. ??Separate Pathology report to follow Erum Szymanski MD PATHOLOGY/CYTOLOGY O ZHANNA Performing Organization Address [facility]/[place] [address] * Specimen to Pathology (08/21/2018 11:20 AM EDT) AP Specimen 08/21/2018 11:2 0 AM EDT 08/21/2018 11:20 AM EDT Narrative [facility] - 08/21/2018 11:20 AM EDT Specimen requisition ordered. ??Separate Pathology report to follow Erum Szymanski MD PATHOLOGY/CYTOLOGY O ZHANNA Performing Organization Address [facility] [place] [address] * Specimen to Pathology (08/21/2018 11:20 AM EDT) AP Specimen 08/21/2018 11:2 0 AM EDT 08/21/2018 11:20 AM EDT Narrative [facility] - 08/21/2018 11:20 AM EDT Specimen requisition ordered. ??Separate Pathology report to follow Erum Szymanski MD PATHOLOGY/[place] [address] * Specimen to Pathology (08/21/2018 11:20 AM EDT) AP Specimen 08/21/2018 11:2 0 AM EDT 08/21/2018 11:20 AM EDT Narrative [facility] - 08/21/2018 11:20 AM EDT Specimen requisition ordered. ??Separate Pathology report to follow Erum Szymanski MD PATHOLOGY/CYTOLOGY O ZHANNA Performing Organization Address [facility]/[place] [address] * Specimen to Pathology (08/21/2018 11:20 AM EDT) AP Specimen 08/21/2018 11:2 0 AM EDT 08/21/2018 11:20 AM EDT Narrative [facility] - 08/21/2018 11:20 AM EDT Specimen requisition ordered. ??Separate Pathology report to follow Erum Szymanski MD PATHOLOGY/CYTOLOGY O ZHANNA Performing Organization Address City/[facility]/[place] [address] * Specimen to Pathology (08/21/2018 11:20 AM EDT) AP Specimen 08/21/2018 11:2 0 AM EDT 08/21/2018 11:20 AM EDT Narrative [facility] - 08/21/2018 11:20 AM EDT Specimen requisition ordered. ??Separate Pathology report to follow Erum Szymanski MD PATHOLOGY/[place] [address] * Surgical Pathology Report (08/21/2018 10:36 AM EDT) Final Diagnosis [id number] ? Location: 4T; EA11; A The signing [...] Dee MD Verified: ??08/22/2018 ?Pathologist Performed at: ??-[facility] Dept. of Pathology, [place], [place] DISCUSSION H,K,L. ??Clinical and endoscopic correlation [...] labeled M1. ??sunita 08/22/2018 3:53 PM EDT [facility] GI Biopsy 08/21/2018 10:3 [...] AM EDT Erum Szymanski MD PATHOLOGY/CYTOLOGY O RDERAYESENIA Performing Organization Address City/State/[facility] Co de Phone Number [facility] [place] [address] * UPPER GI ENDOSCOPY (08/21/2018 9:37 AM EDT) UPPER GI ENDOSCOPY [facility] Endoscopy ___ Procedure Date: 08/21/2018 9:37 AM ? Patient Name: Vianney Cordero ? Date of : 1975 ? Age: 42 ? Order #: [id number] ? Instrument Name: [id number] ? ___ Procedure: ? Upper GI endoscopy Indications: ? Follow-up of Jean Baptiste's esophagus Providers: ? Erum Szymanski MD, Erik Trevino, ? RN, Miriam Gutierrez, Sandwich And Drink Cart Operator Referring MD: ?WANDY Andrade Medicines: ? [...] ? changes was 8 cm in length. Emmett classification ? C7M1. Mucosa was biopsied with [...] * COLONOSCOPY (08/21/2018 8:39 AM EDT) COLONOSCOPY [facility] Endoscopy Procedure Date: 08/21/2018 8:39 AM ? Patient Name: Vianney Cordero ? N: [id number] ? Date of : 1975 ? Age: 42 ? Order #: [id number] ? Instrument Name: [id number] ? Procedure: ? Colonoscopy Indications: ? Chronic diarrhea, Family history of ? colon cancer in a first-degree ? relative Providers: ? Erum Szymanski MD, Erik Trevino, ? RN, Miriam Gutierrez, Sandwich And Drink Cart Operator Referring : ?WANDY Andrade, Jena Curtis ? [place] Medicines: ? See the other [...] preparation was ? evaluated using the BBPS ([place] ? Bowel Preparation Scale) with scores ? [...] Diagnoses Not on filedocumented in this encounter Active and Recently Administered [...] Erik Trevino RN)1010 (Given - Provider: Erik Trevino, RN)1018 (Given - Provider: Erik Trevino RN)1026 (Given - Provider: Erik Trevino, NIMCO) midazolam (PF) (VERSED) multi-dose injection (CANCELED) ONCE PRN, Starting on Sun08/21/18 at 1001, Until Sun08/21/18 at 1441, Intra-Operative (Intra-Procedure), Routine 0958 (Given - Provid er: Erik Trevino RN)1001 (Given - Provider: Erik Trevino, NIMCO)1005 (Given - Provider: Erik Trevino RN)1010 (Given - Provider: Erik Trevino RN)1026 (Given - Provider: Erik Trevino, RN) documented in this encounter Care Teams Cattle Care Worker Relationship Specialty Start Date End Date Sonido Cordoba PA [address] [place] [address] PCP - General Family Medicine 11/16/15 06/22/20 documented as of this encounter
--- OUTSIDE RECORDS SUMMARY | 2024-10-16 17:41 | XMS_ITS | Encounter Summary ---
Author Organization [facility] Address [facility] [place] [address] Care Team Providers Care Mold Cooler Name Role Phone Sonido Cordoba Primary Care Provider +1- [phone] Encounter Details Date Type Department Care Team (Latest Contact Info) Description 03/19/2019 10:26 AM EDT - 03/19/2019 11:59 PM EDT Hospital Encounter XRay at [address] [place] [address] Tyler Nava, [facility] [place] [address] Right foot pain Discharge Disposition: Home Social [...] as needed. 100 g 1 03/19/2019 05/04/2020 Bismuth Subsalicylate 262 mg TabletIndications:H pylori ulcer Take 1 tablet by mouth 4 times daily. 56 tablet 12/31/2018 09/03/2019 tetracycline (ACHROMYCIN;SUMYCIN) 500 mg CapsuleIndications:H pylori ulcer Take 1 capsule by mouth 4 times daily. 56 capsule 12/31/2018 05/04/2020 metroNIDAZOLE (FLAGYL) 250 mg TabletIndications:H pylori ulcer Take 1 tablet by mouth 4 times daily. 56 tablet 12/31/2018 07/06/2020 clarithromycin (BIAXIN) 500 mg TabletIndications:H. pylori infection Take 1 tablet by mouth 2 times daily. 28 tablet 09/10/2018 04/17/2019 amoxicillin (AMOXIL) 500 mg CapsuleIndications:H. pylori infection Take 2 capsules by mouth 2 times daily. 56 capsule 09/10/2018 09/03/2019 pantoprazole (PROTONIX) 20 mg Tablet, Delayed Release (E.C.)Indications:H. pylori infection Take 1 tablet by mouth 2 times daily (before meals). 60 tablet 09/10/2018 03/08/2020 Ketamine (Bulk) 100 % Powd 5 %, [...] AM EST Office [place] [address] Mercy Amanda MD [facility] [address] 04/01/2025 2:00 PM EDT Office [place] [phone] Erum Szymanski MD [facility] [place] [address] documented as of this encounter Procedures Procedure Name Priority Date/Time Associated Diagnosis Comments XR FOOT MIN 3 VIEWS RIGHT Routine 03/19/2019 10:48 AM EDT Right foot pain documented in this [...] report, please contact the number below. Tyler Rae Elijah DPM IMG DX ORDERABLES documented in this encounter Visit Diagnoses Diagnosis Right foot pain Pain in limb documented in this encounter Care Teams Mold Cooler Relationship Specialty Start Date End Date Sonido Cordoba PA [address] [place] [address] PCP - General Family Medicine 11/16/15 06/22/20 documented as of this encounter
--- OUTSIDE RECORDS SUMMARY | 2024-10-16 17:41 | XMS_ITS | Encounter Summary ---
Author Organization [facility] Address [facility] [place] [address] Care Team Providers Care Surgeon Partner Name Role Phone Sonido Cordoba Primary Care Provider +1- [phone] Encounter Details Date Type Department Care Team (Latest Contact Info) Description 03/19/2019 8:30 AM EDT - 03/19/2019 10:25 AM EDT Hospital [place] [address] Kathy Carnes MD [facility] [place] [address] Upper abdominal pain; Abdominal bloating; Nausea without vomiting Discharge Disposition: Home Social History Tobacco Use [...] by mouth 3 times daily as needed. Bismuth Subsalicylate 262 mg TabletIndications:H pylori ulcer [...] AM EST Office [place] [phone] Mercy Amanda MD [facility] [address] [facility] [place] [address] 04/01/2025 2:00 PM EDT Office [place] [address] Erum Szymanski MD [facility] [place] [address] documented as of this encounter Procedures Procedure Name Priority Date/Time Associated Diagnosis Comments US ABDOMEN LIMITED Routine 03/19/2019 9: 41 AM EDT Upper abdominal pain Abdominal bloating Nausea without vomiting documented in this encounter Results * US Abdomen Limited (03/19/2019 9:41 AM EDT) Anatomical Region Laterality Modality Abdomen Ultrasound 03/19/2019 9:39 AM EDT Impressions 03/19/2019 10:25 AM EDT ?? Diffusely increased hepatic parenchymal echotexture with loss of portal triads without suspicious focal lesion with areas of focal fatty sparing in keeping with diffuse fatty infiltration. 5 mm simple left liver lobe cyst. Normal gallbladder without sludge nor cholelithiasis. Normal biliary tree. Thank you for letting us participate in the care of this patient. For questions regarding this report, please contact the number below. ? Aliya Nguyen, Staff Physician Electronically Signed Final Report ?? 03/19/2019 10:24 am Narrative 03/19/2019 10:25 AM EDT Abdominal ? (Signed Final 03/19/2019 10:24 am) PATIENT INFO: ID #: ? [id number] ?: ??[birth year] (43 yrs) Name: ? EMIL NEVES ?Visit Date: 03/19/2019 09:39 am ? GABRIELLE PERFORMED BY: Performed By: ? Michaela Guy RDMS Attending: ?Patrick RIVAS, Aliya Grimes Referred By: ?KATHY CARNES Location: ? [place] SERVICE(S) PROVIDED: ??UABDLIM - Abdominal Limited Survey Single ? [id number] ??Organ or Quadrant - [id number] INDICATIONS: ??postprandial RUQ pain, bloating, nausea. ??Concern for gallstones, sludge, biliary tract ??dilation. COMPARISON: Prior US: 05/01/18 ------ LIVER: ------ Right Lobe Length: ?? 20.7 ?? cm Echogenicity/Echotexture: ?? Increased in echogenicity diffusely, ? focal sparing visualized. Comment: ?Simple cyst visualized in the left lobe measuring ? 5.5 mm. GALLBLADDER: Cholelithiasis: ?No stones visualized Wall Thickness: ?2. mm Focal Tenderness: ?Negative sonographic French's sign BILIARY TRACT: Intrahepatic Ducts: ?? Normal Extrahepatic Ducts: ?? Normal Common Duct Size: ? 4.0 ? mm --------- PANCREAS: --------- Head: ? Limited visualization due to overlying ? bowel Tail: ? Poorly visualized due to overlying bowel Body: ? Poorly visualized due to overlying bowel RIGHT KIDNEY: Size (cm) ?L: ??11.2 Cortical Thickness: ?Cortical thinning Cortical Echogenicity: ?? Normal Hydronephrosis: ?No sonographic evidence ------ AORTA: ------ Measurements (cm): Proximal ? AP: ?? 2.2 ---- IVC: ---- Normal in caliber where visualized. Procedure Note Aliya Nguyen MD - 03/19/2019 Abdominal (Signed Final 03/19/2019 10:24 am) PATIENT INFO: ID #: [id number] : [birth year] (43 yrs) Name: EMIL NEVES Visit Date: 03/19/2019 09:39 am GABRIELLE PERFORMED BY: Performed By: Michaela Guy RDMS Attending: Aliya Nguyen MD Referred By: KATHY CARNES Location: [place] SERVICE(S) PROVIDED: UABDLIM - Abdominal Limited Survey Single [id number] Organ or Quadrant - [id number] INDICATIONS: postprandial RUQ pain, bloating, nausea. Concern for gallstones, sludge, biliary tract dilation. COMPARISON: Prior US: 05/01/18 ------ LIVER: ------ Right Lobe Length: 20.7 cm Echogenicity/Echotexture: Increased in echogenicity diffusely, focal sparing visualized. Comment: Simple cyst visualized in the left lobe measuring 5.5 mm. GALLBLADDER: Cholelithiasis: No stones visualized Wall Thickness: 2. mm Focal Tenderness: Negative sonographic French's sign BILIARY TRACT: Intrahepatic Ducts: Normal Extrahepatic Ducts: Normal Common Duct Size: 4.0 mm --------- PANCREAS: --------- Head: Limited visualization due to overlying bowel Tail: Poorly visualized due to overlying bowel Body: Poorly visualized due to overlying bowel RIGHT KIDNEY: Size (cm) L: 11.2 Cortical Thickness: Cortical thinning Cortical Echogenicity: Normal Hydronephrosis: No sonographic evidence ------ AORTA: ------ Measurements (cm): Proximal AP: 2.2 ---- IVC: ---- Normal in caliber where visualized. IMPRESSION Diffusely increased hepatic parenchymal echotexture with loss of portal triads without suspicious focal lesion with areas of focal fatty sparing in keeping with diffuse fatty infiltration. 5 mm simple left liver lobe cyst. Normal gallbladder without sludge nor cholelithiasis. Normal biliary tree. Thank you for letting us participate in the care of this patient. For questions regarding this report, please contact the number below. Aliya Nguyen, Staff Physician Electronically Signed Final Report 03/19/2019 10:24 am Kathy Carnes MD IMG US GEN ORDERA BLES documented in this encounter Visit Diagnoses Diagnosis Upper abdominal pain Abdominal pain, other specified site Abdominal bloating Flatulence, eructation, and gas pain Nausea without vomiting documented in this encounter Care Teams Surgeon Partner Relationship Specialty Start Date End Date Sonido Cordoba PA [address] [place] [address] PCP - General Family Medicine 11/16/15 06/22/20 documented as of this encounter
--- OUTSIDE RECORDS SUMMARY | 2024-10-16 17:41 | XMS_ITS | Encounter Summary ---
[place] [address] Care Team Providers Care Hot Roll Inspector Name Role Phone Sonido Cordoba Primary Care Provider +1- [phone] Reason for Referral * Diagnostic Test (Routine) - Closed Specialty Diagnoses / Procedures Referred By Aric madrigal Referred To Contact Radiology Diagnoses Peroneal tendinitis, right Procedures MRI Ankle wo Contrast Right MRI Foot wo Contrast Right Lizbeth Guzman APRN [facility] [address] [place] [address] [place] [address] Referral ID Status Reason Start Date Expiration Date V isits Requested Visits Authorized [id number] Closed Specialty Service Requested 1 1 Reason for Visit * Reason Comments Right Foot Pain * Consultation (Routine) - Closed Specialty Diagnoses / Procedures Referred By Aric madrigal Referred To Contact Orthopaedics Diagnoses R foot pain Self mail [facility] [address] [place] [address] Referral ID Status Reason Start Date Expiration Date V isits Requested Visits Authorized [id number] Closed Consult, Test & Treat 08/12/2019 08/11/2020 1 1 Encounter Details Date Type Department Care Team (Latest Contact Info) Description 09/03/2019 2:20 PM EDT Office Visit Orthopaedics [facility] [place] [address] Lizbeth Guzman APRN [facility] [place] [address] Peroneal tendinitis, right (Primary Dx); Lateral epicondylitis of right elbow Social History Tobacco Use Types Packs/Day Years [...] Sign Reading Time Taken Comments Blood Pressure 112/70 09/03/2019 2:03 PM EDT Pulse 78 09/03/2019 2:03 PM EDT Temperature - - Respiratory Rate - - Oxygen Saturation 98% 09/03/2019 2:03 PM EDT Inhaled Oxygen Concentration - - Weight 109.3 kg (241 lb) 09/03/2019 2:03 PM EDT Height 160 cm (5' 3) 09/03/2019 2:03 PM EDT Body Mass Index 42.69 09/03/2019 2:03 PM EDT documented in this encounter Progress Notes * Lizbeth Guzman, LAST SORTER - 09/03/2019 2:20 PM EDT PATIENT NAME: Vianney Cordero AGE: 43 y.o. MR#: [id number] DATE OF VISIT: 09/03/2019 DATE OF INJURY/ONSET: chronic CHIEF COMPLAINT: chronic right lateral foot pain. HISTORY OF PRESENT ILLNESS Ms. Mao Cordero a 43 y.o. year old female comes into clinic today for above. She is well known to Dr. Nava for chronic right lateral foot pain. No reported injury. Duration ~ over a year. No hx of right foot fracture, dislocation or surgery. 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 Modalities thus far have included relative rest, avoidance of painful activity, OTC analgesics PRN not on a scheduled basis and a focal tendon sheath injection by Dr. Nava recently with no appreciable pain relief even with the anesthetic portion of the injection. Avoids oral NSAID's due to GI problems. She is referred here to discuss [place] options further. Past Medical History: Diagnosis Date ??? PTSD (post-traumatic stress disorder) Patient Active Problem List Diagnosis Code ??? [...] 06/2015 Z98.890 ??? Left ankle pain M25.572 Past Surgical History: Procedure Laterality Date ??? DILATION AND CURETTAGE OF UTERUS 1994 ??? PRO COLONOSCOPY, BIOPSY N/A 08/21/2018 COLONOSCOPY FLEXIBLE, WITH BX (WRVU 3.66) performed by Erum Szymanski MD at [facility] ??? PRO COLONOSCOPY, REMV LESN, SNARE N/A 08/21/2018 COLONOSCOPY, POLYPECTOMY, REMOVAL LESION BY SNARE (WRVU 4.67) performed by Erum Szymanski MD at [facility] ? ? PRO CYSTO W URETEROSCOPY &/OR PYELOSCOPY, DX Right 06/01/2015 CYSTOURETEROSCOPY, DIAGNOSTIC performed by Darius Nuñez Jr., MD at [facility] ??? PRO CYSTOSCOPY, INSERT URETERAL STENT Right 06/01/2015 CYSTO, STENT PLACEMENT performed by Darius Nuñez Jr., MD at [facility] ??? PRO LAP, ESOPHAGOGAST FUNDOPLASTY N/A 04/05/2015 LAPAROSCOPIC TYESHA FUNDOPLASTY performed by Valentín Moura MD at [facility] ??? PRO PERCUT DILATN RENAL TRACT Right 06/01/2015 PERCUTANEOUS INTRO GUIDE WIRE TO ACCESS RENAL PELVIS,AND OR URETER, W\DILATION performed by Darius Nuñez Jr., MD at [facility] ??? PRO PERCUT REMV KID STONE, UP TO 2 CM Right 06/01/2015 NEPHROLITHOTOMY, ([facility]) PERCUTANEOUS performed by Darius Nuñez Jr., MD at [facility] ??? PRO UPPER GI ENDOSCOPY, BIOPSY N/A 01/27/2015 EGD WITH BIOPSY performed by Brandt Barlow MD at [facility] ??? PRO UPPER GI ENDOSCOPY, BIOPSY N/A 02/28/2016 EGD WITH BIOPSY performed by Brandt Barlow MD at [facility] ??? PRO UPPER GI ENDOSCOPY, BIOPSY N/A 09/04/2016 EGD WITH BIOPSY performed by Brandt Barlow MD at [facility] ??? PRO UPPER GI ENDOSCOPY, BIOPSY N/A 09/24/2017 EGD WITH BIOPSY (WRVU 2.49) performed by Brandt Barlow MD at [facility] ??? PRO UPPER GI ENDOSCOPY, BIOPSY N/A 08/21/2018 EGD WITH BIOPSY (WRVU 2.49) performed by Erum Szymanski MD at [facility] ??? 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 There is no history of bleeding disorders. No DVT or PE history. No sleep apnea or CPAP use. There are no reported problems with anesthesia. Questionnaire Responses: myD-H Hip & Knee 09/03/2019 MODEMS Expectation - VR12 - Physical Component Summary - VR12 - Mental Component Summary - PROMIS-10 General Health Good PROMIS-10 Quality of Life Good PROMIS-10 Physical Health Good PROMIS-10 Mental Health Good PROMIS-10 Social Activity and Relationship Satisfaction Good PROMIS-10 Social Roles at Home and Work Good PROMIS-10 Everyday Physical Activities Mostly PROMIS-10 Anxious or Depressed last 7 days Never PROMIS-10 Fatigue last 7 days Mild PROMIS-10 Pain last 7 days 7 PROMIS PHYSICAL HEALTH SCORE (range 16-68) 42.3 PROMIS MENTAL HEALTH SCORE (range 21-68) 48.3 PHYSICAL EXAM: Vitals: 09/03/19 1403 BP: 112/70 Pulse: 78 SpO2: 98% Weight: 109.3 kg (241 lb) Height: 160 cm (5' 3) Body mass index is 42.69 kg/m??. Ms. Mao Cordero a 43 y.o. is alert and oriented. She appears in no acute discomfort and is resting comfortably in a chair in the exam room. Enters exam room with a non-antalgic gait. Positional changes are brisk. No assistive devices. Wearing ASICS sneakers with no formal orthosis. Inspection: Full stance with hind foot varus and fore foot flattening noted. Skin is warm, dry and well perfused. Palpation: TTP at the peroneal tendon insertion with no step off deformity. 5/5 strength with eversion motion. There is pain along the course of the peroneal tendon. No subluxation felt. ROM: Dorsiflexion: 20 degrees Plantarflexion: 40 degrees Inversion: Equal and symmetric to the bilateral side Eversion: Equal and symmetric to the bilateral side Strength: 5/5 in all planes of motion. EHL/FHL 5/5. Orthopaedic tests: Painless subtalar motion. No instability of the right ankle with a/p drawer or inversion stress. Neurovascular: Foot is sensate and well perfused, DP and PT 2+ to palpation. Sensation intact to 1st webspace, medial and lateral sole and dorsum. RADIOLOGICAL STUDIES: Right foot x-ray reviewed image by image in the office today mild mid foot arthropathy and calcaneal spur with no fracture, dislocation, lytic or osseous lesions. ASSESSMENT: 43 year old Female with chronic right lateral foot pain clinical exam is consistent with peroneal tendon insertion pain consider split thickness tear. PLAN: Ms. Mao Cordero and I discussed her radiologic findings and physical exam findings. Treatmentoptions and risks/benefits discussed from least to most invasive. Patient understands options. . Given the patients findings on physical examination and radiologic studies it seems appropriate to schedule and refer the patient for the followin) At this time, I recommend further cross sectional imaging including an MRI scan. I have already ordered this as a future order in the computer. 2) Consider wearing a stiffer soled shoe with hind foot stability such as a KEEN or WALSH shoe. Herbert gave her a lateral wedge to adjust for lateral sided foot pain and hind foot varus. 3) Ok to use Cool packs and acetaminophen prn for pain no greater than 3 grams per day. Consider Voltaren gel as an NSAID. I have already ordered this as a future order in the computer. Pt agrees, questions solicited/answered, will return as scheduled and as needed for concerns or questions. Pt understands they may also call us prn for above. Addendum: On the way out she reported feeling some pain over the lateral epicondyle region. No injury. + overuse at work. No modalities thus far. Clinical exam: + pain over the lateral epicondyle worse with resisted wrist extension. I recommended. Cool packs and a volar wrist splint. If not improved, consider formal PT referral and dry needling. F/u I will call with the results. Sooner prn. documented in this encounter Plan of Treatment Upcoming Encounters Date Type Department Care Team (Late st Contact Info) Description 12/31/2024 10:00 AM EST Office [place] [address] Mercy Amanda MD [facility] [address] 04/01/2025 2:00 PM EDT Office [place] [address] Erum Szymanski MD [facility] [place] [address] documented as of this encounter Results * [...] below. ? Electronically signed by: Tammy Krishnamurthy [facility] ([phone]), at 09/30/2019 8:46 AM Narrative 09/30/2019 8:46 [...] right ankle was performed without contrast [facility]. COMPARISON: None FINDINGS: Tendons: The [...] number below. Electronically signed by: Tammy Krishnamurthy [facility]([phone]), at 09/30/2019 8:46 AM Lizbeth Guzman LAST SORTER IMG MRI ORDERABLES documented in this encounter Visit Diagnoses Diagnosis Peroneal tendinitis, right- Primary Lateral epicondylitis of right elbow Lateral epicondylitis of elbow Peroneal tendinitis, right documented in this encounter Care Teams Hot Roll Inspector Relationship Specialty Start Date End Date Sonido Cordoba PA [address] [place] [address] PCP - General Family Medicine 11/16/15 06/22/20 documented as of this encounter
--- OUTSIDE RECORDS SUMMARY | 2024-10-16 17:41 | XMS_ITS | Encounter Summary ---
Author Organization Formerly [facility] Address [facility] [place] [address] Care Team Providers Care Visitor Services Associate Name Role Phone Sonido Cordoba Primary Care Provider [phone]- [phone] Reason for Visit * Reason Comments Follow-up Encounter Details Date Type Department Care Team (Late st Contact Info) Description 02/24/2019 2:00 PM EDT Office Visit [place] [address] Jena Severino [place] [address] Upper abdominal pain; Abdominal bloating; Nausea without vomiting; H pylori ulcer Social History Tobacco Use [...] Reading Time Taken Comments Blood Pressure 129/71 02/24/2019 1:57 PM EDT Pulse 92 02/24/2019 1:57 PM EDT Temperature - - Respiratory Rate - - Oxygen Saturation - - Inhaled Oxygen Concentration - - Weight 112.9 kg (249 lb) 02/24/2019 1:57 PM EDT w/ shoes Height 160 cm (5' 3) 02/24/2019 1:57 PM EDT Body Mass Index 44.11 02/24/2019 1:57 PM EDT documented in this encounter Patient Instructions * Patient Instructions* Jena Severino - 02/24/2019 2:00 PM EDT Thank you for coming in today. Here is a summary of what we discussed: 1. Schedule hydrogen breath test 2. Schedule RUQ US 3. I will let you know when we receive your stool testing results 4. Follow up colonoscopy in August documented in this encounter Progress Notes * Jena Severino - 02/24/2019 2:00 PM EDT Gastroenterology & Hepatology Follow Up Visit [...] yrs. Diarrhea is often postprandial, 3-4 BM/day, Dixon scale 7 or 6. Urgency. Focal RUQ pain may be worse after meals x 4 yrs. Positive Carnett's sign. Plan: stool studies. Labs. Abdominal US 06/18/18: Postprandial diarrhea 90% of the time. Also has diarrhea without meals. 5-6 BM/day, Dixon scale 7, Dixon 6 sometimes. Urgency but no accidents. Sometimes [...] per last visit. Submitted stool test to [facility] end Nov; told today by her PCP that stool testing is still H pylori positive. Stopped PPI 2 weeks prior to stool test, is now back on protonix 40 mg once daily. Overall tx did [...] Labs: Hep B sAg, Hep C Ab. Subjective: Interval Hx: Vianney completed H pylori tx as prescribed (January 17 - January 31). She stopped all medications including PPI for 2 weeks, the submitted stool testing ~February 20 (3 wks after stopping abx). She is feeling a little better. She still has RUQ pain, after every meal. Can feel it if she bends over, or someone bumps her. Bowel: 3-4 bm/day. Stools are soft and yucky in general, loose if she has dairy. Sometimes has smaller bowel movements because she does not evacuate it all at once. Has to miranda through when at work. Has a lot of gas, bloating. Occasional nausea, can not vomit since her surgery. She has some fruits and vegetables in the diet, but not much. PMHX: - Paraesophageal hiatal hernia repair and Tyesha fundoplication with Dr Moura on 04/05/2015. - Rodgers's esophagus - yearly EGD. Weight: 249 lb today, Per chart review, gained 5 lb in 2.5 month. Diagnostic studies: 1. US abd limited, 03/15/16 [...] testing 11/22/18: stool H pylori antigen positive 9. Labs 02/20/19: Hep B sAg neg, Hep C Ab neg. ? ROS: Constitutional: Denies unintended weight loss, f/c GI: see HPI MEDICAL HISTORY: Patient Active [...] ??? traZODone (DESYREL) 50 mg Tablet ??? Bismuth Subsalicylate 262 mg Tablet ??? tetracycline (ACHROMYCIN;SUMYCIN) 500 mg Capsule ??? metroNIDAZOLE (FLAGYL) 250 mg Tablet ??? clarithromycin (BIAXIN) 500 mg Tablet ??? amoxicillin (AMOXIL) 500 mg Capsule ??? pantoprazole (PROTONIX) 20 mg Tablet, Delayed Release (E.C.) ??? Ketamine (Bulk) 100 % Powd 5 %, Gabapentin (Bulk) 100 % Powd 6 %, Diclofenac Sodium (Bulk) 100 % Powd 3 %, Lidocaine HCl (Bulk) 100 % Powd 5 % ??? gabapentin (NEURONTIN) 300 mg Capsule Reviewed 12/17/18: Cyclobenzaprine for headaches PRN, less frequent than in the past, but more severe-- headaches new since Oct. Protonix 40 once [...] performed by Erum Szymanski MD at [facility] ??? PRO COLONOSCOPY, REMV LESN, SNARE N/A 08/21/2018 COLONOSCOPY, POLYPECTOMY, REMOVAL LESION BY SNARE (WRVU 4.67) performed by Erum Szymanski MD at [facility] ? ? PRO CYSTO W URETEROSCOPY &/OR PYELOSCOPY, DX Right 06/01/2015 CYSTOURETEROSCOPY, DIAGNOSTIC performed by Darius Nuñez Jr., MD at [facility] OR ??? PRO CYSTOSCOPY, INSERT URETERAL STENT Right 06/01/2015 CYSTO, STENT PLACEMENT performed by Darius Nuñez Jr., MD at [facility] OR ??? PRO LAP, ESOPHAGOGAST FUNDOPLASTY N/A 04/05/2015 LAPAROSCOPIC TYESHA FUNDOPLASTY performed by Valentín Moura MD at [facility] OR ??? PRO PERCUT DILATN RENAL TRACT Right 06/01/2015 PERCUTANEOUS INTRO GUIDE WIRE TO ACCESS RENAL PELVIS,AND OR URETER, W\DILATION performed by Darius Nuñez Jr., MD at [facility] OR ??? PRO PERCUT REMV KID STONE, UP TO 2 CM Right 06/01/2015 NEPHROLITHOTOMY, ([facility]) PERCUTANEOUS performed by Darius Nuñez Jr., MD at [facility] OR ??? PRO UPPER GI ENDOSCOPY, BIOPSY N/A 01/27/2015 EGD WITH BIOPSY performed by Brandt Barlow MD at [facility] ??? PRO UPPER GI ENDOSCOPY, BIOPSY N/A 02/28/2016 EGD WITH BIOPSY performed by Brandt Barlow MD at [facility] ??? PRO UPPER GI ENDOSCOPY, BIOPSY N/A 09/04/2016 EGD WITH BIOPSY performed by Brandt Barlow MD at [facility] ??? PRO UPPER GI ENDOSCOPY, BIOPSY N/A 09/24/2017 EGD WITH BIOPSY (WRVU 2.49) performed by Brandt Barlow MD at [facility] ??? PRO UPPER GI ENDOSCOPY, BIOPSY N/A 08/21/2018 EGD WITH BIOPSY (WRVU 2.49) performed by Erum Szymanski MD at [facility] ??? 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 There is no history of liver or pancreas disease. Objective: PHYSICAL EXAMINATION: Most Recent Vitals: 02/24/19 1357 BP: 129/71 Pulse: 92 Body mass index is 44.11 kg/m??. Alert, well-appearing, no acute distress. Appears [...] to repeat the colonoscopy in 1 yr (Aug 2019) to assess for any changes. She underwent one round of triple therapy for H pylori (clarithromycin, amox, protonix) in Sep 2018but repeat stool testing remained positive for H pylori Ag. Since our last visit, she underwent 2ndround of treatment with metronidazole, tetracycline, bismuth and protonix. She submitted a stool sample 3 weeks after completing treatment, results are pending at this time. Given her ongoing postprandial RUQ pain that is worse with fatty foods we discussed repeating an RUQ US since this was done almost a year ago, and possibly HIDA scan, to rule out biliary dyskinesia. Since she endorses ongoing gas and bloating, with some abdominal distension, I recommended HBT to evaluate for SIBO. If unrevealing, will consider proceeding with MRI/MRE to evaluate small bowel pathology vs EGD to evaluate for healing of duodenal ulcer/bx for H pylori. Consider treating for visceral hypersensitivity, consider bile acid binder for diarrhea. We could repeat low Fodmap diet, FDGard for symptomatic management but she has tried this in the past with some improvement that was very short lived. Reviewed her labs negative for viral hepatitis (neg Hep B sAg, Hep C Ab) PLAN (printed for patient): 1. Schedule hydrogen breath test 2. Schedule RUQ US 3. I will let you know when we receive your stool testing results 4. Follow up colonoscopy in August 29 of this 30 minute visit was spent in discussion of the above. The patient was given my contact information and will call me with concerns or questions. Jena Severino PA-C Section of Gastroenterology [place] [address] documented in this encounter Plan of Treatment Upcoming Encounters Date Type Department Care Team (Late st Contact Info) Description 12/31/2024 10:00 AM EST Office [place] [address] Mercy Amanda MD [facility] [address] [place] [address] 04/01/2025 2:00 PM EDT Office [place] [phone] Erum Szymanski MD [facility] [place] [address] documented as of this encounter Results * US Abdomen Limited [...] 10:24 am) PATIENT INFO: ID #: ? [id number] ?: ??[birth year] (43 yrs) Name: ? VIANNEY NEVES ?Visit Date: 03/19/2019 09:39 am ? GABRIELLE PERFORMED BY: Performed By: ? Michaela Guy RDMS Attending: ?Aliya Nguyen MD Referred By: ?KATHY APPLEWOOD Location: ? [facility] SERVICE(S) PROVIDED: ??UABDLIM - Abdominal Limited Survey Single ? [id number] ??Organ or Quadrant - [id number] INDICATIONS: ??postprandial RUQ pain, bloating, nausea. ??Concern [...] 03/19/2019 10:24 am) PATIENT INFO: ID #: [id number] : [birth year] (43 yrs) Name: VIANNEY NEVES Visit Date: 03/19/2019 09:39 am CORDERO PERFORMED BY: Performed By: Michaela Guy RDMS Attending: Aliya Nguyen MD Referred By: KATHY SCHMIDT Location: [facility] SERVICE(S) PROVIDED: UABDLIM - Abdominal Limited Survey Single 20937 Organ or Quadrant - [id number] INDICATIONS: postprandial RUQ pain, bloating, nausea. Concern [...] Signed Final Report 03/19/2019 10:24 am Kathy Schmidt MD IMG US GEN ORDERA BLES documented in this encounter Visit Diagnoses Diagnosis Upper abdominal pain Abdominal pain, other specified site Abdominal bloating Flatulence, eructation, and gas pain Nausea without vomiting H pylori ulcer Gastric ulcer, unspecified as acute or chronic, without mention of hemorrhage, perforation, or obstruction Upper abdominal pain Abdominal pain, other specified site Abdominal bloating Flatulence, eructation, and gas pain Nausea without vomiting documented in this encounter Care Teams Visitor Services Associate Relationship Specialty Start Date End Date Sonido Cordoba PA [address] [place] [address] PCP - General Family Medicine 11/16/15 06/22/20 documented as of this encounter
--- OUTSIDE RECORDS SUMMARY | 2024-10-16 17:41 | XMS_ITS | Encounter Summary ---
Author Organization Formerly [facility], Later [facility] [address] Care Team Providers Care Inventory Control Assistant Name Role Phone Sonido Cordoba Primary Care Provider [phone]- [phone] Encounter Details Date Type Department Care Team (Late st Contact Info) Description 09/04/2019 8:45 AM EDT - 09/04/2019 9:45 AM EDT Surgery [place] [address] Steve Ji MD [facility] [place] [address] EGD, UPPER GI ENDOSCOPY (WRVU 2.09) Social History Tobacco Use Types Packs/Day Years [...] Sign Reading Time Taken Comments Blood Pressure 142/84 09/04/2019 9:31 AM EDT Pulse 71 09/04/2019 9:31 AM EDT Temperature 36.7 ??C (98.1 ??F) 09/04/2019 9:31 AM ED T Respiratory Rate - - Oxygen Saturation 98% 09/04/2019 9:31 AM EDT Inhaled Oxygen Concentration - - Weight 112.9 kg (249 lb) 09/04/2019 9:31 AM EDT Height 160 cm (5' 3) 09/04/2019 9:31 AM EDT Body Mass Index 44.11 09/04/2019 9:31 AM EDT documented in this encounter Discharge Instructions * Discharge Instructions* Chrystal Aguilar, RN - 09/04/2019 11:30 AM EDT UPPER GI ENDOSCOPY with biopsies WHAT TO EXPECT AFTER THE PROCEDURE Medications You may have a mild sore throat. Ice chips, popsicles, over the counter throat lozenges or spray may help numb your throat. This procedure should not cause a fever. Call your healthcare provider or seek immediate medical attention if: You have trouble swallowing. You have belly pain. Your stools are black or tarlike or have streaks of blood. You are sick to your stomach or cannot keep fluids down. Watch closely for changes in your health, and be sure to contact your doctor IF Your throat still hurts after a day or two You do not get better as expected. Colonoscopy with biopsies What to expect after the procedure You may feel a little more gassy or bloated than usual. This is normal. You should expect the return of normal bowel function in the 2 to 3 days. Activity Because of the sedation that you received your judgement and reaction time are effected ?? Go home and rest quietly for the remainder of the day. You may resume your normal activities tomorrow. ?? Change from one position to the next slowly. You may lose your balance unexpectedly ?? Be careful on stairs, as you may be unsteady on your feet FOR THE NEXT 24 HRS ?? DO NOT DRIVE OR OPERATE ANY MACHINERY ?? DO NOT DRINK ALCOHOLIC BEVERAGES ?? DO NOT SIGN LEGAL DOCUMENTS ?? If you are a smoker: DO NOT SMOKE WHILE YOU ARE ALONE Diet ?? Start by eating small portions of foods that ordinarily will not upset your stomach . Avoid gas producing foods for the next few days ?? Be gentle with what you choose to start with ?? Drink plenty of fluids ( unless your doctor has told you not to). IV SITE-- slight redness, or tenderness is normal. You can use warm compresses if you become concerned. If the tenderness +/or redness increases or foul drainage and a red streak occurs, please contact your PCP immediately When shoud you call for help? Call 911 anytime you think you may need emergency care. For example If you pass out ( loss of consciousness) If you pass maroon or bloody stools If you have severe belly pain Call your doctor now or seek immediate medical care If your stools are black and tarlike If your stools have streaks of blood, but you did not have a biopsy or any polyps removed If you have belly pain, or your belly is swollen and firm If you vomit If you have a fever If you are very dizzy Watch closely for changes in your health, and be sure to contact your doctor if you have any problems Your doctor will let you know when you will need your next colonoscopy. The results of your test and your risk for colorectal cancer will help your doctor decide how often you need to be checked. Sunday-Sunday Same Day Endo [phone] 7a-8p Otherwise contact [phone] and ask to speak to the senior geotechnical engineer retail and promotions coordinator Follow up care is a harper part of your treatment and safety. Be sure to make and go to all appointments, and call your doctor if you are having problems. Discharge instructions reviewed with patient who expresses understanding documented in this encounter Medications at Time [...] H&P Notes * Steve Ji MD - 09/04/2019 9:07 AM EDT Patient Name: Vianney Cordero Patient Age: 43 y.o. Birthdate: 1975 Admit date: 09/04/2019 Attending Physician: Steve Ji MD Gastroenterology & Hepatology Pre-Procedure History and Physical Planned Procedure: EGD: Colonoscopy: Indication: dysphagia, history of Barretts, follow-up of colitis Patient Active Problem List Diagnosis Code ??? [...] 06/2015 Z98.890 ??? Left ankle pain M25.572 Medications: Reviewed in EDH Allergies Allergen Reactions ??? Oxycodone Nausea And Vomiting Social History/Family History: Reviewed in EDH. No changes Exam: Most Recent Vitals: 09/04/19 0931 BP: 142/84 Pulse: 71 Temp: 36.7 ??C (98.1 ??F) SpO2: 98% GEN: NAD, AAOX3 HEENT: NC/AT dryMM, anicteric [...] complication. Informed Consent signed by patient (or product support sales representative). documented in this encounter Plan of Treatment Upcoming Encounters Date Type Department Care Team (Late st Contact Info) Description 12/31/2024 10:00 AM EST Office Visit [place] [address] Mercy Amanda MD [facility] [address] [place] [address] 04/01/2025 2:00 PM EDT Office Visit [place] [address] Erum Szymanski MD [facility] [place] [address] documented as of this encounter Procedures Procedure Name Priority Date/Time Associated Diagnosis Comments SURGICAL PATHOLOGY REPORT Routine 09/04/2019 11:15 AM EDT SPECIMEN TO PATHOLOGY Routine 09/04/2019 11:15 AM EDT SPECIMEN TO PATHOLOGY Routine 09/04/2019 11:15 AM EDT SPECIMEN TO PATHOLOGY Routine 09/04/2019 11:15 AM EDT SPECIMEN TO PATHOLOGY Routine 09/04/2019 11:15 AM EDT SPECIMEN TO PATHOLOGY Routine 09/04/2019 11:15 AM EDT Colonoscopy, Biopsy ([id number]) 09/04/2019 10:39 AM EDT Adenomatous polyp of colon, unspecified part of colon 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 History of Helicobacter pylori infection Upper Gi Endoscopy, Biopsy ([id number]) 09/04/2019 10:39 AM EDT Adenomatous polyp of colon, unspecified part of colon 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 History of Helicobacter pylori infection Colonoscopy, Diagnostic ([id number]) 09/04/2019 10:39 AM EDT Adenomatous polyp of colon, unspecified part of colon 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 History of Helicobacter pylori infection Upper GI Endoscopy, Diagnostic ([id number]) 09/04/2019 10:39 AM EDT Adenomatous polyp of colon, unspecified part of colon 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 History of Helicobacter pylori infection UPPER GI ENDOSCOPY Routine 09/04/2019 10 :32 AM EDT COLONOSCOPY Routine 09/04/2019 10:31 AM EDT documented in this encounter Results * Surgical Pathology Report (09/04/2019 11:15 AM EDT) Final Diagnosis [id number] ? Location: ; 08; A The signing pathologist has (i) examined the relevant preparation(s) for the specimen(s) and (ii) rendered or confirmed the diagnosis(es). . ?Surgical Pathology DIAGNOSIS A - Esophagus at 35-33, biopsy: - Rodgers's esophagus, negative for dysplasia. B - Esophagus 32-30 cm, biopsy: - Rodgers's esophagus, negative for dysplasia. C - Esophagus 29-27 cm, biopsy: - Rodgers's esophagus, negative for dysplasia. D - Right colon, biopsy: - Colonic mucosa, negative for diagnostic abnormality. E - Left colon, biopsy: - ??Colonic mucosa, negative for diagnostic abnormality. [id number] Electronically signed by: ??Stonye Gomez MD Verified: ??09/05/2019 ?Pathologist Performed at: ??-[facility] [place], [place], [place] CLINICAL INFORMATION Specimen Submitted: A - Esophageal bx at 35-33 B - Esophageal bx 32-30cm C - Esophageal bx 29-27cm D - Right colon bx r/o inflammation E - Left colon bx r/o inflammation Clinical History and Diagnosis: 43-year-old female with Rodgers's, previous inflammation in colon; rule out inflammation SPECIMEN PROCESSING A - Labeled/Fixative : Esophageal biopsy at 35-33, formalin. Quantity/Size: Six, 0.1-0.2 cm. Tissue Description: Soft, pink tissues. Sections/Process ing: Submitted en toto ??in 2 cassettes labeled A1-A2. B - Labeled/Fixative : Esophageal biopsy 32-30 cm, formalin. Quantity/Size: Four, 0.2-0.3 cm. Tissue Description: Soft, pink tissues. Sections/Process ing: Submitted en toto ??in 1 cassette labeled B1. C - Labeled/Fixative : Esophageal biopsy 29-27 cm, formalin. Quantity/Size: Five, 0.1-0.3 cm. Tissue Description: Soft, pink tissues. Sections/Process ing: Submitted en toto ??in 1 cassette labeled C1. D - Labeled/Fixative : Right colon biopsy, formalin. . SPECIMEN PROCESSING Quantity/Size: Multiple, 0.2-0.3 cm. Tissue Description: Soft, pink tissues. Sections/Process ing: Submitted en toto ??in 2 cassettes labeled D1-D2. E - Labeled/Fixative : Left colon biopsy, formalin. Quantity/Size: Multiple, 0.2-0.4 cm. Tissue Description: Soft, yellow-gray tissues. Sections/Process ing: Submitted en toto ??in 2 cassettes labeled E1-E2. ??ejr 09/05/2019 2:04 PM EDT [facility] GI Biopsy 09/04/2019 11:1 5 AM EDT 09/04/2019 11:15 AM EDT GI Biopsy 09/04/2019 11:1 5 AM EDT 09/04/2019 11:15 AM EDT GI Biopsy 09/04/2019 11:1 5 AM EDT 09/04/2019 11:15 AM EDT GI Biopsy 09/04/2019 11:1 5 AM EDT 09/04/2019 11:15 AM EDT GI Biopsy 09/04/2019 11:1 5 AM EDT 09/04/2019 11:15 AM EDT Steve Ji MD PATHOLOGY/CYTOLOG Y ORDERABLES Performing Organization Address [facility]/[place] [address] * Specimen to Pathology (09/04/2019 11:15 AM EDT) AP Specimen 09/04/2019 11:1 5 AM EDT 09/04/2019 11:15 AM EDT Narrative [facility] - 09/04/2019 11:15 AM EDT Specimen requisition ordered. ??Separate Pathology report to follow Steve Ji MD PATHOLOGY/CYTOLOG Y ORDERABLES Performing Organization Address [facility] [place] [address] * Specimen to Pathology (09/04/2019 11:15 AM EDT) AP Specimen 09/04/2019 11:1 5 AM EDT 09/04/2019 11:15 AM EDT Narrative [facility] - 09/04/2019 11:15 AM EDT Specimen requisition ordered. ??Separate Pathology report to follow Steve Ji MD PATHOLOGY/CYTOLOG Y ORDERABLES Performing Organization Address [facility]/[place] [address] * Specimen to Pathology (09/04/2019 11:15 AM EDT) AP Specimen 09/04/2019 11:1 5 AM EDT 09/04/2019 11:15 AM EDT Narrative [facility] - 09/04/2019 11:15 AM EDT Specimen requisition ordered. ??Separate Pathology report to follow Steve Ji MD PATHOLOGY/CYTOLOG Y ORDERABLES Performing Organization Address [facility] [place] [place] [address] * Specimen to Pathology (09/04/2019 11:15 AM EDT) AP Specimen 09/04/2019 11:1 5 AM EDT 09/04/2019 11:15 AM EDT Narrative [facility] - 09/04/2019 11:15 AM EDT Specimen requisition ordered. ??Separate Pathology report to follow Steve Ji MD PATHOLOGY/CYTOLOG Y ORDERABLES Performing Organization Address [facility] [place] [place] [address] * Specimen to Pathology (09/04/2019 11:15 AM EDT) AP Specimen 09/04/2019 11:1 5 AM EDT 09/04/2019 11:15 AM EDT Narrative [facility] - 09/04/2019 11:15 AM EDT Specimen requisition ordered. ??Separate Pathology report to follow Steve Ji MD PATHOLOGY/CYTOLOG Y ORDERABLES Performing Organization Address [facility] [place] [place] [address] * UPPER GI ENDOSCOPY (09/04/2019 10:32 AM EDT) UPPER GI ENDOSCOPY [facility] Endoscopy Procedure Date: 09/04/2019 10:32 AM ? Patient Name: Vianney Cordero ? Date of : 1975 ? Age: 43 ? Order #: [id number] ? Instrument Name: [id number] ? Procedure: ? Upper GI endoscopy Indications: ? Dysphagia, Surveillance for ? malignancy due to personal history of ? Rodgers's esophagus Providers: ? Steve Ji MD, Sofie Box ? Shree, RN, Danielle Shetty Referring : ?WANDY Block Medicines: ? Monitored Anesthesia Care Complications: ? No immediate complications. Procedure: ? Pre-Anesthesia Assessment: ? - Prior to the procedure, a History ? and Physical was performed, and ? patient medications and allergies ? were reviewed. The patient's ? tolerance of previous anesthesia was ? also reviewed. The risks and benefits ? of the procedure and the sedation ? options and risks were discussed with ? the patient. All questions were ? answered, and informed consent was ? obtained. Prior Anticoagulants: The ? patient has taken no previous ? anticoagulant or antiplatelet agents. ? ASA Grade Assessment: III - A patient ? with severe systemic disease. After ? reviewing the risks and benefits, the ? patient was deemed in satisfactory ? condition to undergo the procedure. ? The procedure, indications, benefits, ? risks and alternatives were explained ? to the patient. Specifically ? discussed were potential ? complications including, but not ? limited to, bleeding, perforation, ? infection, missing a cancer, and ? adverse medication reactions. The ? Endoscope was introduced through the ? mouth, and advanced to the third part ? of duodenum. The patient tolerated ? the procedure well. The upper GI ? endoscopy was accomplished without ? difficulty. The patient tolerated the ? procedure well. ? Findings: ? There were esophageal mucosal changes consistent with ? long-segment Rodgers's esophagus present in the ? distal esophagus. The maximum longitudinal extent of ? these mucosal changes was 8 cm in length. Mucosa was ? biopsied with a cold large-capacity forceps for ? histology in 4 quadrants from 27 to 35 cm from the ? incisors. A total of 3 specimen bottles were sent to ? pathology. ? Evidence of a Addie fundoplication was found in the ? cardia and in the gastric fundus. The wrap appeared ? intact. This was traversed. ? The exam of the stomach was otherwise normal. ? The examined duodenum was normal. ? Moderate Sedation: ? Not applicable - See Anesthesia documentation Impression: ?- Esophageal mucosal changes ? consistent with long-segment ? Rodgers's esophagus. Biopsied. ? - A Addie fundoplication was found. ? The wrap appears intact. ? - Normal examined duodenum. Recommendation: ?- Await pathology results. ? - Follow an antireflux regimen. This ? includes: ? - Do not lie down for at least 3 to 4 ? hours after meals. ? - Raise the head of the bed 4 to 6 ? inches. ? - Decrease excess weight. ? - Avoid citrus juices and other ? acidic foods, alcohol, chocolate, ? mints, coffee and other caffeinated ? beverages, carbonated beverages, ? fatty and fried foods. ? - Avoid tight-fitting clothing. ? - Avoid cigarettes and other tobacco ? products. ? - Proceed with Colonoscopy as planned. ? Attending Participation: ? I personally performed the entire procedure. ? Dr. Michele Ji ___ Steve Ji MD 09/04/2019 10:59:32 AM Number of Addenda: 0 Note Initiated On: 09/04/2019 10:32 AM PROVATION 09/04/2019 10:3 2 AM EDT Sonido SABA [facility] PROVATION * COLONOSCOPY (09/04/2019 10:31 AM EDT) COLONOSCOPY [facility] Endoscopy Procedure Date: 09/04/2019 10:31 AM ? Patient Name: Vianney Cordero ? Date of : 1975 ? Age: 43 ? Order #: [id number] ? Instrument Name: [id number] ? Procedure: ? Colonoscopy Indications: ? High risk colon cancer surveillance: ? Personal history of colonic polyps Patient Profile: ? This is a 43 year old female. Last ? Colonoscopy: 2018. Providers: ? Stvee Ji MD, Sofie Box ? NIMCO Swann, Danielle Frost MD: ?WANDY Block Requesting Provider: Erum Szymanski MD Medicines: ? Monitored Anesthesia Care Complications: ? No immediate complications. Procedure: ? Pre-Anesthesia Assessment: ? - Prior to the procedure, a History ? and Physical was performed, and ? patient medications and allergies ? were reviewed. The patient's ? tolerance of previous anesthesia was ? also reviewed. The risks and benefits ? of the procedure and the sedation ? options and risks were discussed with ? the patient. All questions were ? answered, and informed consent was ? obtained. Prior Anticoagulants: The ? patient has taken no previous ? anticoagulant or antiplatelet agents. ? ASA Grade Assessment: III - A patient ? with severe systemic disease. After ? reviewing the risks and benefits, the ? patient was deemed in satisfactory ? condition to undergo the procedure. ? The procedure, indications, benefits, ? risks [...] quality of the ? bowel preparation was evaluated using ? the BBPS ([place] Bowel Preparation ? Scale) with scores of: Right Colon = ? 2 (minor amount of residual staining, ? small fragments of stool and/or ? opaque liquid, but mucosa seen well), ? Transverse Colon = 3 (entire mucosa ? seen well with no residual staining, ? small fragments of stool or opaque ? liquid) and Left Colon = 2 (minor ? amount of residual staining, small ? fragments of stool and/or opaque ? liquid, but mucosa seen well). The ? total BBPS score equals 7. The ? terminal ileum, ileocecal valve, ? appendiceal orifice, and rectum were ? photographed. Scope withdrawal time ? was 14 minutes. ? Findings: ? The perianal and digital rectal examinations were ? normal. ? The entire examined colon appeared normal. Biopsies ? were taken with a cold forceps for histology (two ? jars, left and right). ? The terminal ileum appeared normal. ? The retroflexed view of the distal rectum and anal ? verge was normal and showed no anal or rectal ? abnormalities. ? The exam was otherwise without abnormality. ? Moderate Sedation: ? Not applicable - See Anesthesia documentation Impression: ?- The entire examined colon is ? normal. Biopsied. ? - The examined portion of the ileum ? was normal. ? - The distal rectum and anal verge ? are normal on retroflexion view. ? - The examination was otherwise ? normal. Recommendation: ?- Repeat colonoscopy in 3 - 5 years ? for surveillance. ? Attending Participation: ? I personally performed the entire procedure. ? Dr. Michele Ji ___ Steve Ji MD 09/04/2019 11:41:27 AM Number of Addenda: 0 Note Initiated On: 09/04/2019 10:31 AM PROVATION 09/04/2019 10:3 1 AM EDT Sonido [facility] [employer]OVATION documented in this encounter Visit Diagnoses Diagnosis Adenomatous polyp of colon, unspecified part of colon Odynophagia Dysphagia, unspecified 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 Rodgers's esophagus History of Helicobacter pylori infection Personal history of other infectious and parasitic disease documented in this encounter Administered Medications Inactive Administered Medications - up to 3 most recent administrations Medication Order MAR Action Action Date Dose Rate Site lactated ringers infusion 100 mL/hr, Intravenous, CONTINUOUS, Starting on Brittny 09/04/19 at 1000, Until Brittny 09/04/19 at 1212, Endoscopy (Day of Procedure) New Bag 09/04/2019 9:40 AM EDT 100 mL/hr 100 mL/hr documented in this encounter Active and Recently Administered Medications Times are shown in EDT. Continuous Medication Order 09/02/2019 09/03/2019 09/04/2019 lactated ringers infusion (CANCELED) 100 mL/hr, Intravenous, CONTINUOUS, Starting on Brittny 09/04/19 at 1000, Until Brittny 09/04/19 at 1212, Endoscopy (Day of Procedure) 0940 (New Bag - Prov ider: Suzie Bravo RN)1123 (Stopped - Provider: Arabella Duenas CRNA) documented in this encounter Care Teams Inventory Control Assistant Relationship Specialty Start Date End Date Sonido Cordoba PA [address] [place] [address] PCP - General Family Medicine 11/16/15 06/22/20 documented as of this encounter
--- OUTSIDE RECORDS SUMMARY | 2024-10-16 17:41 | XMS_ITS | Encounter Summary ---
Author Organization [facility] Address [facility] [place] [address] Care Team Providers Care Medical Reception Name Role Phone Sonido Cordoba Primary Care Provider +1- [phone] Encounter Details Date Type Department Care Team (Late st Contact Info) Description 09/04/2019 8:32 AM EDT - 09/04/2019 12:22 PM EDT Hospital Encounter [place] [address] Steve Ji MD [facility] [place] [address] Discharge Disposition: Home Social History Tobacco Use [...] Sign Reading Time Taken Comments Blood Pressure 112/57 09/04/2019 12:00 PM EDT Pulse 76 09/04/2019 11:22 AM EDT Temperature 36.7 ??C (98.1 ??F) 09/04/2019 9:31 AM ED T Respiratory Rate 20 09/04/2019 11:22 AM EDT Oxygen Saturation 99% 09/04/2019 12:00 PM EDT Inhaled Oxygen Concentration - - [...] to be checked. 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 Informed Consent signed by patient (or ambulatory service representative). documented in this encounter Plan of Treatment Upcoming Encounters Date Type Department Care Team (Late st Contact Info) Description 12/31/2024 10:00 AM EST Office [place] [address] Mercy Amanda MD [facility] [address] [facility] [place] [address] 04/01/2025 2:00 PM EDT Office [place] [address] Erum Szymanski MD [facility] [place] [address] documented as of this encounter Procedures Procedure Name Priority Date/Time Associated Diagnosis Comments SURGICAL PATHOLOGY REPORT Routine 09/04/2019 11:15 AM EDT SPECIMEN TO PATHOLOGY Routine 09/04/2019 11:15 AM EDT SPECIMEN TO PATHOLOGY Routine 09/04/2019 11:15 AM EDT SPECIMEN TO PATHOLOGY Routine 09/04/2019 11:15 AM EDT SPECIMEN TO PATHOLOGY Routine 09/04/2019 11:15 AM EDT SPECIMEN TO PATHOLOGY Routine 09/04/2019 11:15 AM EDT Colonoscopy, Biopsy ([id number]) 09/04/2019 10:39 AM EDT Adenomatous polyp of colon, unspecified part of colon 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 History of Helicobacter pylori infection Upper Gi Endoscopy, Biopsy ([id number]) 09/04/2019 10:39 AM EDT Adenomatous polyp of colon, unspecified part of colon 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 History of Helicobacter pylori infection Colonoscopy, Diagnostic ([id number]) 09/04/2019 10:39 AM EDT Adenomatous polyp of colon, unspecified part of colon 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 Location: ; 08; A The signing [...] for diagnostic abnormality. CR-PX Electronically signed by: ??Stoney Gomez MD Verified: ??09/05/2019 ?Pathologist Performed at: ??-[facility] [place], [place], [place] CLINICAL INFORMATION Specimen Submitted: A - [...] labeled E1-E2. ??ejr 09/05/2019 2:04 PM EDT [facility] GI Biopsy 09/04/2019 11:1 5 AM [...] MD PATHOLOGY/CYTOLOG Y ORDERABLES Performing Organization Address City/[facility]/[place] [address] * Specimen to Pathology (09/04/2019 11:15 AM EDT) AP Specimen 09/04/2019 11:1 5 AM EDT 09/04/2019 11:15 AM EDT Narrative [facility] - 09/04/2019 11:15 AM EDT Specimen requisition ordered. ??Separate Pathology report to follow Steve Ji MD PATHOLOGY/CYTOLOG Y ORDERABLES Performing Organization Address City/[facility]/[place] [address] * Specimen to Pathology (09/04/2019 11:15 AM EDT) AP Specimen 09/04/2019 11:1 5 AM EDT 09/04/2019 11:15 AM EDT Narrative [facility] - 09/04/2019 11:15 AM EDT Specimen requisition ordered. ??Separate Pathology report to follow Steve Ji MD PATHOLOGY/CYTOLOG Y ORDERABLES Performing Organization Address City/[facility]/[place] [address] * Specimen to Pathology (09/04/2019 11:15 AM EDT) AP Specimen 09/04/2019 11:1 5 AM EDT 09/04/2019 11:15 AM EDT Narrative [facility] - 09/04/2019 11:15 AM EDT Specimen requisition ordered. ??Separate Pathology report to follow Steve Ji MD PATHOLOGY/CYTOLOG Y ORDERABLES Performing Organization Address [facility] [place] [place] [address] * Specimen to Pathology (09/04/2019 11:15 AM EDT) AP Specimen 09/04/2019 11:1 5 AM EDT 09/04/2019 11:15 AM EDT Narrative [facility] - 09/04/2019 11:15 AM EDT Specimen requisition ordered. ??Separate Pathology report to follow Steve Ji MD PATHOLOGY/CYTOLOG Y ORDERABLES Performing Organization Address [facility] [address] * Specimen to Pathology (09/04/2019 11:15 AM EDT) AP Specimen 09/04/2019 11:1 5 AM EDT 09/04/2019 11:15 AM EDT Narrative [facility] - 09/04/2019 11:15 AM EDT Specimen requisition ordered. ??Separate Pathology report to follow Steve Ji MD PATHOLOGY/CYTOLOG Y ORDERABLES Performing Organization Address [facility] [place] [address] * UPPER GI ENDOSCOPY (09/04/2019 10:32 AM EDT) UPPER GI ENDOSCOPY [facility] Procedure Date: 09/04/2019 10:32 AM ? Patient Name: Vianney Cordero ? Date of : 1975 ? Age: 43 ? Order #: [id number] ? Instrument Name: [id number] ? Procedure: ? Upper GI endoscopy Indications: [...] ? Rodgers's esophagus. Biopsied. ? - A Dadie fundoplication was found. ? The wrap appears [...] * COLONOSCOPY (09/04/2019 10:31 AM EDT) COLONOSCOPY [facility] Procedure Date: 09/04/2019 10:31 AM ? Patient Name: Vianney Cordero ? Date of : 1975 ? Age: 43 ? Order #: [id number] ? Instrument Name: [id number] ? Procedure: ? Colonoscopy Indications: ? High risk colon cancer surveillance: ? Personal history of colonic polyps Patient Profile: ? This is a 43 year old female. Last ? Colonoscopy: 2018. Providers: ? Steve Ji MD, Sofie Box ? NIMCO Swnan, Danielle Frost MD: ?WANDY Block Requesting Provider: [...] preparation was evaluated using ? the BBPS ([place] Bowel Preparation ? Scale) with scores of: [...] CRNA) documented in this encounter Care Teams Medical Reception Relationship Specialty Start Date End Date Sonido Cordoba [address] [place] [address] PCP - General Family Medicine 11/16/15 06/22/20 documented as of this encounter
--- OUTSIDE RECORDS SUMMARY | 2024-10-16 17:41 | XMS_ITS | Encounter Summary ---
Author Organization [facility] [place] [address] Care Team Providers Care Buttermilk Drier Operator Name Role Phone Sonido Cordoba Primary Care Provider +1- [phone] Encounter Details Date Type Department Care Team (Late st Contact Info) Description 08/17/2019 [place] [phone] Lizbeth Guzman SENIOR GOVERNMENT PROGRAM ANALYST [facility] [place] [address] Right foot pain Social History Tobacco Use Types Packs/Day Years [...] AM EST Office [place] [phone] Mercy Amanda MD [facility] DR [facility] [address] 04/01/2025 2:00 PM EDT Office Visit Gastroenterology at [facility] [place] [address] Erum Szymanski MD [facility] [place] [address] documented as of this encounter Results * [...] the number below. ? Electronically signed by: Karely Ruiz [facility] ([phone]), at 09/03/2019 2:32 PM Narrative 09/03/2019 2:32 PM EDT EXAMINATION: XR [...] contact the number below. Electronically signed by: Karely Ruiz [facility]([phone]), at 09/03/2019 2:32 PM Lizbeth Guzman SENIOR GOVERNMENT PROGRAM ANALYST IMG DX ORDERABLES documented in this encounter Visit Diagnoses Diagnosis Right foot pain Pain in limb Right foot pain Pain in limb documented in this encounter Care Teams Buttermilk Drier Operator Relationship Specialty Start Date End Date Sonido Cordoba PA [address] [place] [address] PCP - General Family Medicine 11/16/15 06/22/20 documented as of this encounter
--- OUTSIDE RECORDS SUMMARY | 2024-10-16 17:41 | XMS_ITS | Encounter Summary ---
[place] [address] Care Team Providers Care Inspector Floor Sub Assembly Name Role Phone Sonido Cordoba Primary Care Provider +1- [phone] Reason for Visit * Reason Onset Date Comments Prior Authorization 12/26/2018 Encounter Details Date Type Department Care Team (Late st Contact Info) Description 12/26/2018 Telephone [place] [address] Kaia Cherry CCMA Prior Authorization Social History [...] Telephone Encounter - Kaia Cherry LNA - 12/26/2018 3:03 PM EST Medication Prior Authorization 4L Gastroenterology / [place] [address] Subscriber Insurance: [place] Medicaid Phone: Fax: Physician: Jena Severino Return [facility]: [facility] Phone: Fax: Medication Requested: Pylera ( [id number]) Strength:[phone] Frequency: take 3 capsules by mouth 4 times daily Disp.: 168 Refills:0 Currently taking: Diagnosis for this medication: H.pylori infection ICD-10 code: (A04.8) Prior medications trialed in this patient: Amoxicillin 2018, Clarithromycin 2018, Pantoprazole currently taking Medication: Outcome/Adverse Reactions:Treatment Failure Decision: Denied Document scanned into chart documented in this encounter Plan of Treatment Upcoming Encounters Date Type Department Care Team (Late st Contact Info) Description 12/31/2024 10:00 AM EST Office [place] [address] Mercy Amanda MD [facility] DR [facility] [address] 04/01/2025 2:00 PM EDT Office [place] [address] Erum Szymanski MD [facility] [place] [address] documented as of this encounter Visit Diagnoses Not on filedocumented in this encounter Care Teams Inspector Floor Sub Assembly Relationship Specialty Start Date End Date Sonido Cordoba PA [address] [place] [address] PCP - General Family Medicine 11/16/15 06/22/20 documented as of this encounter
--- OUTSIDE RECORDS SUMMARY | 2024-10-16 17:41 | XMS_ITS | Encounter Summary ---
Author Organization [facility] [place] [address] Care Team Providers Care Woods Rider Name Role Phone Sonido Cordoba Primary Care Provider +1- [phone] Encounter Details Date Type Department Care Team (Late st Contact Info) Description 07/28/2019 Telephone [place] [address] [facility] Sanchez[facility] Social History Tobacco Use Types Packs/Day Years [...] AM EST Office [place] [phone] Mercy Amanda MD [facility] DR [facility] [place], [place] [address] [phone] 04/01/2025 2:00 PM EDT Office [place] [phone] Erum Szymanski MD [facility] [place] [address] documented as of this encounter Visit Diagnoses Not on filedocumented in this encounter Care Teams Woods Rider Relationship Specialty Start Date End Date Sonido Cordoba PA [address] [place] [address] PCP - General Family Medicine 11/16/15 06/22/20 documented as of this encounter
--- OUTSIDE RECORDS SUMMARY | 2024-10-16 17:41 | XMS_ITS | Encounter Summary ---
Author Organization [facility] Address [facility] [place] [address] Care Team Providers Care Outside Food Server Name Role Phone Sonido Cordoba Primary Care Provider +1- [phone] Encounter Details Date Type Department Care Team (Late st Contact Info) Description 03/19/2019 Orders [place] [phone] Tyler Nava [facility] [place] [address] Social History Tobacco Use Types Packs/Day Years [...] AM EST Office [place] [address] Mercy Amanda MD [facility] DR [facility] [address] 04/01/2025 2:00 PM EDT Office [place] [address] Erum Szymanski MD [facility] [place] [address] documented as of this encounter Visit Diagnoses Not on filedocumented in this encounter Care Teams Outside Food Server Relationship Specialty Start Date End Date Sonido Cordoba PA [address] [place] [address] PCP - General Family Medicine 11/16/15 06/22/20 documented as of this encounter
--- OUTSIDE RECORDS SUMMARY | 2024-10-16 17:41 | XMS_ITS | Encounter Summary ---
[place] [address] Care Team Providers Care Water Gas Operator Name Role Phone Sonido Cordoba Primary Care Provider +1- [phone] Encounter Details Date Type Department Care Team (Late st Contact Info) Description 02/24/2019 Telephone [place] [address] Kar Andre Social History Tobacco Use Types Packs/Day Years [...] encounter Miscellaneous Notes * Telephone Encounter - Kar Andre - 02/24/2019 2:39 PM EDT BREATH TEST CLINICAL SAFETY CHECKLIST 02/24/2019 KAR Cavanaugh [address] [facility] [address] [id number] : 1975 REFERRING PROVIDER: Jena Severino PRIMARY CARE PROVIDER: WANDY Aguilera PRIMARY SYMPTOM (DIARRHEA, ABDOMINAL PAIN, ETC): abdominal pain SUGAR(S) REQUESTED (lactose, lactulose, glucose, fructose): lactulose If a provider requests lactose or fructose breath testing: Do we have documentation of previous lactulose or glucose breath testing? IF YES: ok to schedule IF NO: The provider must submit an additional request for a lactulose or glucose breath test. DO NOT SCHEDULE either breath test, until this request is submitted. Separate breath test appointments are needed to test multiple sugars. If a patient needs more than one breath test, the breath tests must be scheduled on separate days. QUESTIONS FOR THE PATIENT DIABETIC? NO Diabetic patients should speak with their PCP or managing provider at least two weeks before the test to ask what medication or insulin adjustments are needed for testing. Patients fast 12 hours before testing and the test lasts 2-3 hours. DID THE PATIENT HAVE A COLONOSCOPY OR ANTIBIOTICS IN THE LAST 4 WEEKS? YES - STOPPED 02/04/19 If yes, the breath test must be scheduled at least four weeks after colonoscopy or last antibiotic dose. DOES THE PATIENT USE A WHEELCHAIR? NO VERBAL PATIENT INSTRUCTIONS The written instructions are very important for the patient to review and contain specific dietary and medication instructions prior to testing. These instructions will give the patient the most accurate test result. The patient should speak with their referring provider or our office if they have any questions. APPOINTMENT NOTES TEMPLATE lactulose breath test, symptom: abdominal pain, RMD: Jena Severino, PCP: WANDY Aguilera, wheelchair: No Please copy/paste the template above for each breath test that is needed. documented in this encounter Plan of Treatment Upcoming Encounters Date Type Department Care Team (Late st Contact Info) Description 12/31/2024 10:00 AM EST Office [place] [address] Mercy Amanda MD [facility] DR [facility] [address] 04/01/2025 2:00 PM EDT Office [place] [address] Erum Szymanski MD [facility] [place] [address] documented as of this encounter Visit Diagnoses Not on filedocumented in this encounter Care Teams Water Gas Operator Relationship Specialty Start Date End Date Sonido Cordoba PA [address] [place] [address] PCP - General Family Medicine 11/16/15 06/22/20 documented as of this encounter
--- OUTSIDE RECORDS SUMMARY | 2024-10-16 17:41 | XMS_ITS | Encounter Summary ---
Author Organization [facility] [place] [address] Care Team Providers Care Tent Assembler Name Role Phone Sonido Cordoba Primary Care Provider +1- [phone] Reason for Visit * Reason Comments Foot Pain Encounter Details Date Type Department Care Team (Late st Contact Info) Description 04/17/2019 11:15 AM EDT Office [place] [address] Tyler Nava DPM [facility] [place] [address] Peroneal tendinitis of right lower extremity Social [...] Progress Notes * Tyler Nava DPM - 04/17/2019 11:15 AM EDT SUBJECTIVE Chief complaint:Vianney Cordero is a 43 y.o. female, who returns to podiatry for follow-up on right lateral foot pain. The patient reports removable foot straps were not helpful. They botheredher arch. Reports discomfort is significantly interfering with day-to-day activities. Accompanied by her . There were no vitals taken for this visit. Objective Dorsalis Pedis pulses are palpable. Posterior Tibial pulses are palpable. The patient has tenderness with palpation at the insertion of peroneus brevis into the base of the fifth metatarsal along the course of the tendon to the lateral malleolus. Minimal edema.. Assessment Peroneus brevis tendinitis right. Plan Decision was made to place the patient in a tall walking boot. Follow-up in 3 weeks. documented in this encounter Plan of Treatment Upcoming Encounters Date Type Department Care Team (Late st Contact Info) Description 12/31/2024 10:00 AM EST Office [place] [address] Mercy Amanda MD [facility] [address] [facility] [place] [address] 04/01/2025 2:00 PM EDT Office [place] [address] Erum Szymanski MD [facility] [place] [address] documented as of this encounter Visit Diagnoses Diagnosis Peroneal tendinitis of right lower extremity Other enthesopathy of ankle and tarsus documented in this encounter Care Teams Tent Assembler Relationship Specialty Start Date End Date Sonido Cordoba PA [address] [place] [address] PCP - General Family Medicine 11/16/15 06/22/20 documented as of this encounter
--- OUTSIDE RECORDS SUMMARY | 2024-10-16 17:42 | XMS_ITS | Encounter Summary ---
[place] [address] Care Team Providers Care Supervisor Display Fabrication Name Role Phone Sonido Cordoba Primary Care Provider +1- [phone] Reason for Visit * Reason Comments Nephrolithiasis Encounter Details Date Type Department Care Team (Late st Contact Info) Description 08/08/2016 11:30 AM EDT [place] [address] Darius Nuñez Jr., MD [facility] [place] [address] Nephrolithiasis Social History Tobacco Use Types Packs/Day [...] Sign Reading Time Taken Comments Blood Pressure 134/73 08/08/2016 11:21 AM EDT Pulse 61 08/08/2016 11:21 AM EDT Temperature - - Respiratory Rate - - Oxygen Saturation - - Inhaled Oxygen Concentration - - Weight 97.5 kg (215 lb) 08/08/2016 11:21 AM EDT Height 160 cm (5' 3) 08/08/2016 11:21 AM EDT Body Mass Index 38.09 08/08/2016 11:21 AM EDT documented in this encounter Progress Notes * Darius Nuñez Jr., MD - 08/08/2016 11:30 AM EDT HPI: Vianney Saini returns for urologic follow up regarding mixed CaOx/CaPhos nephrolithiasis. This pleasant 40 y.o. Woman underwent right PCNL on 06/01/15. Intraoperative findings were notable for a large right renal pelvic stone. Postop imaging confirmed she had been rendered stone free. Stone analysis revealed mixed CaPhos/Caox. Given calcium phosphate component, we discussed metabolic eval uation, although she opted not to proceed with metabolic testing. She had noted that she had previously ingested large amounts of TUMS due to her hiatal hernia, which may have contributed to her stone formation. She is no longer using TUMS. In the interval since her last visit, she has been well. She denies interval stone passage, suspected renal colic, or new complaints. She notes continued occasional low back pain. Review of Systems Constitution: Negative for chills and fever. Musculoskeletal: Positive for back pain. Gastrointestinal: Negative for abdominal pain. Genitourinary: Negative for dysuria, flank pain and hematuria. PMHx: nephrolithiasis PSHx: D&C; tonsillectomy; right SWL; paraesophageal hernia repair; right PCNL FamHx: cousin with family h/o urolithiasis SocHx: no tobacco; no EtOH Physical Exam Constitutional: She is oriented to person, place, and time. She appears well- developed and well-nourished. No distress. HENT: Head: Normocephalic and atraumatic. Cardiovascular: Normal rate. Pulmonary/Chest: Effort normal. Abdominal: Soft. She exhibits no distension. There is no tenderness. There is no rebound and no guarding. Genitourinary: Genitourinary Comments: No CVA tenderness to percussion bilaterally Neurological: She is alert and oriented to person, place, and time. Skin: She is not diaphoretic. Psychiatric: She has a normal mood and affect. Her behavior is normal. Vitals reviewed. Stone Analysis: 50% Calcium phosphate (apatite); 20% Calcium oxalate monohydrate; 20% Calcium oxalate dihydrate; 10% Calcium carbonate Imaging studies: I independently reviewed the renal ultrasound from today. This reveals no evidenceof hydronephrosis, hydroureter, or stones. Note made of mild bilateral cortical thinning, as well as mild increased medullary echogenicity. Impression/Plan: Remains stone free without residual hydronephrosis s/p right PCNL. She declines metabolic evaluation at this time. We reviewed follow up options. She wishes to proceed with repeat renal ultrasound in 12 months, sooner if needed. documented in this encounter Plan of Treatment Upcoming Encounters Date Type Department Care Team (Late st Contact Info) Description 12/31/2024 10:00 AM EST Office [place] [address] Mercy Amanda MD [facility] DR [facility] [place] [address] 04/01/2025 2:00 PM EDT Office [place] [address] Erum Szymanski MD [facility] GASTR[place] [address] documented as of this encounter Visit Diagnoses Diagnosis Nephrolithiasis Calculus of kidney documented in this encounter Care Teams Supervisor Display Fabrication Relationship Specialty Start Date End Date Sonido Cordoba PA [address] [place] [address] PCP - General Family Medicine 11/16/15 06/22/20 documented as of this encounter
--- OUTSIDE RECORDS SUMMARY | 2024-10-16 17:42 | XMS_ITS | Encounter Summary ---
Author Organization [facility] [place] [address] Care Team Providers Care Grease Machine Worker Name Role Phone Sonido Cordoba Primary Care Provider +1- [phone] Encounter Details Date Type Department Care Team (Late st Contact Info) Description 08/30/2017 Orders [place] [phone] Devan Nuñez Jr., MD [facility] [place] [address] Nephrolithiasis Social History Tobacco Use Types Packs/Day [...] AM EST Office Visit [place] [phone] Mercy Amanda MD [facility] [address] [place] [address] 04/01/2025 2:00 PM EDT Office Visit [place] [phone] Erum Szymanski MD [facility] [place] [address] documented as of this encounter Results * US Retroperitoneal Complete (09/11/2017 2:38 PM EST) Anatomical Region Laterality Modality Abdomen Ultrasound 09/11/2017 2:38 PM EST Impressions 09/11/2017 5:32 PM EST ??1. ??Increased rim-like medullary echogenicity, similar to that seen on priorultrasound from 08/08/2016. The differential includes renal tubular acidosisversus less likely medullary nephrocalcinosis (given lack of medullarycalcifications on CT scan dated 05/04/2015).2. No discrete renal calculi or hydronephrosis.3. ??Left inferior pole simple renal cyst measuring 1.0 cm.I have personally reviewed the image(s) and the residents interpretation andagree with the findings, Steph Reyse at 09/11/2017 5:24 PM ? Steph Rosas MD Electronically Signed Final Report ?? 09/11/2017 05:31 pm Narrative 09/11/2017 5:32 PM EST Renal ? (Signed Final 09/11/2017 05:31 pm) PATIENT INFO: ID #: ? [id number] ?: ??[birth year] (41 yrs) Name: ? ONIELTawny Jeremie NEVES ?Visit Date: 09/11/2017 02:38 pm ? GABRIELLE PERFORMED BY: Performed By: ? Mejia Morelos RDMS Attending: ?Rivas RIVAS, Steph Grimes Resident: ? Percy Gallagher MD Referred By: ?DEVAN NUÑEZ JR Location: ? [place] SERVICE(S) PROVIDED: ??URETRO - Retroperitoneal Complete - [id number] ? [id number] INDICATIONS: ??? stones RIGHT KIDNEY: Size (cm) ?L: ??11.4 Cortical Thickness: ?Cortical thinning Cortical Echogenicity: ?? Normal Hydronephrosis: ?No sonographic evidence Comment: ?Increased echogencity of the medulla. No renal ? calculi seen. Extra renal pelvis noted. LEFT KIDNEY: Size (cm) ?L: ??12.5 Cortical Thickness: ?Cortical thinning Cortical Echogenicity: ?? Normal Hydronephrosis: ?No sonographic evidence Comment: ?Increased echogencity of the medulla. No renal ? calculi seen. Simple cyst seen in the inf. pole ? measuring 1.0 x 0.6 x 0.8 cm. URINARY BLADDER: Pre-void (cm) ? L: ??4.4 ? AP: ??5.2 ? TV: ??6.7 Vol (ml): ?80.3 Comment: ?Partially distended, normal contour Procedure Note Steph Madden MD - 09/11/2017 Renal (Signed Final 09/11/2017 05:31 pm) PATIENT INFO: ID #: [id number] : [birth year] (41 yrs) Name: VIANNEY NEVES Visit Date: 09/11/2017 02:38 pm GABRIELLE PERFORMED BY: Performed By: Mejia Morelos RDMS Attending: Steph Reyes MD Resident: Percy Gallagher MD Referred By: DEVAN NUÑEZ JR Location: [place] SERVICE(S) PROVIDED: URETRO - Retroperitoneal Complete - [id number] INDICATIONS: ? stones RIGHT KIDNEY: Size (cm) L: 11.4 Cortical Thickness: Cortical thinning Cortical Echogenicity: Normal Hydronephrosis: No sonographic evidence Comment: Increased echogencity of the medulla. No renal calculi seen. Extra renal pelvis noted. LEFT KIDNEY: Size (cm) L: 12.5 Cortical Thickness: Cortical thinning Cortical Echogenicity: Normal Hydronephrosis: No sonographic evidence Comment: Increased echogencity of the medulla. No renal calculi seen. Simple cyst seen in the inf. pole measuring 1.0 x 0.6 x 0.8 cm. URINARY BLADDER: Pre-void (cm) L: 4.4 AP: 5.2 TV: 6.7 Vol (ml): 80.3 Comment: Partially distended, normal contour IMPRESSION 1. Increased rim-like medullary echogenicity, similar to that seen on priorultrasound from 08/08/2016. The differential includes renal tubular acidosisversus less likely medullary nephrocalcinosis (given lack of medullarycalcifications on CT scan dated 05/04/2015).2. No discrete renal calculi or hydronephrosis.3. Left inferior pole simple renal cyst measuring 1.0 cm.I have personally reviewed the image(s) and the residents interpretation andagree with the findings, Steph Reyes at 09/11/2017 5:24 PM Steph Reyes-MD Joe Electronically Signed Final Report 09/11/2017 05:31 pm Devan Nuñez Jr., MD [facility] ORDERAB L[facility] documented in this encounter Visit Diagnoses Diagnosis Nephrolithiasis Calculus of kidney Nephrolithiasis Calculus of kidney documented in this encounter Care Teams Grease Machine Worker Relationship Specialty Start Date End Date Sonido Cordoba PA [address] [place] [address] PCP - General Family Medicine 11/16/15 06/22/20 documented as of this encounter
--- OUTSIDE RECORDS SUMMARY | 2024-10-16 17:42 | XMS_ITS | Encounter Summary ---
Author Organization [facility] [place] [address] Care Team Providers Care Parking Ramp Attendant Name Role Phone Sonido Cordoba Primary Care Provider +1- [phone] Reason for Referral * Consultation (Routine) - Specialty Diagnoses / Procedures Referred By Contac t Referred To Contact Radiology Diagnoses Left shoulder pain, unspecified chronicity Tear of rotator cuff, unspecified laterality, unspecified tear extent Procedures MRI Shoulder wo Contrast Left (Generic) Gracy Ellis PA [facility] [place] [address] [place] [address] Referral ID Status Reason Start Date Expiration Date Visits Requested Visits Authorized [id number] Specialty Service Requested 10/30/2017 12/28/2017 2 2 Reason for Visit * Reason Comments Follow-up Left shoulder pain Left Ankle Pain * Consultation (Routine) - Specialty Diagnoses / Procedures Referred By Contac t Referred To Contact Orthopaedics Diagnoses left shoulder pain and Left ankle Sonido Cordoba PA [address] [place] [id number] [facility] [address] [place] [address] Referral ID Status Reason Start Date Expiration Date V isits Requested Visits Authorized [id number] Consult, Test & Treat [facility] 09/18/2017 09/18/2018 1 1 Encounter Details Date Type Department Care Team (Late st Contact Info) Description 10/26/2017 10:30 AM EST Office [place] [address] Garcy Ellis PA [facility] [place] [address] Left shoulder pain, unspecified chronicity; Left ankle pain, unspecified chronicity; Tear of rotator cuff, unspecified laterality, unspecified tear extent; Ankle instability, left Social History Tobacco Use Types Packs/Day Years [...] Sign Reading Time Taken Comments Blood Pressure 140/76 10/26/2017 10:03 AM EST Pulse 88 10/26/2017 10:03 AM EST Temperature - - Respiratory Rate - - Oxygen Saturation - - Inhaled Oxygen Concentration - - Weight 106.8 kg (235 lb 8 oz) 7 10:03 AM EST fully clothed Height 161.3 cm (5' 3.5) 10/26/2017 10 :03 AM EST fully clothed Body Mass Index 41.06 10/26/2017 10:03 AM EST documented in this encounter Progress Notes * Gracy Ellis PA - 10/26/2017 10:30 AM EST Chief Complaint: Encounter Diagnoses Name Primary? Left shoulder pain, unspecified chronicity ??? Left ankle pain, unspecified chronicity History of present illness: Vianney Cordero is a 42 y.o. year-old female Follow-up (Left shoulder pain) and Left Ankle Pain Fully she reports that she has had years of left shoulder pain that has recently become more significant. She was previously seen at an outside facility as well as here at [facility] years prior. She was diagnosed with likely rotator cuff tear however has not improved with physical therapy. She works at [employer] and feels that some of her activities overhead are very difficult. Past medical history: Patient Active Problem List Diagnosis Date Noted ??? Left ankle pain 10/26/2017 ??? Hx of tonsillectomy 08/01/2015 ??? History of dilation and curettage 08/01/2015 ??? History of Addie fundoplication 06/201508/01/2015 ??? Pain in left shoulder 07/30/2015 ??? Right knee pain 07/30/2015 ??? Obesity 04/05/2015 ??? Ulnar neuropathy at elbow of right upper extremity 04/02/2015 ??? Hiatal hernia 04/02/2015 ??? Dyspepsia 12/28/2014 ??? Elbow pain, right 08/27/2013 Medications: ??? Ketamine (Bulk) 100 % Powd 5 [...] Nausea And Vomiting Social history: Social History Substance Use Topics ??? Smoking status: Former Smoker Packs/day: 0.50 Years: 6.00 Types: Cigarettes Quit date: 01/25/1997 ??? Smokeless tobacco: Never Used ??? Alcohol use No Review of systems: No chest pain or shortness of breath at baseline No fevers, night sweats or chills Vital signs: Most Recent Vitals: 10/26/17 1003 BP: 140/76 Pulse: 88 Physical Exam: No Apparent distress Forward flexion 160?? Abduction 160?? Left shoulder: Orthopedic testing: Neer - Rizvi + Empty can + Belly press + Infraspinatus + Ripley + Yergason + Intact motor function of the radial, median, and ulnar nerves. Intact sensation along radial, median, and ulnar nerve distributions. Good hand perfusion. Neurovascular: Normal motor function of the radial, median, and ulnar nerves. Normal sensation along radial, median, and ulnar nerve distributions. Good hand perfusion. . Ankle Plantarflexion 40, 5/5,pain with resistance Dorsiflexion 20, 5/5, no pain with resistance Inversion 30, 5/5,pain with resistance Eversion 20, 5/5, pain with resistance + squeeze test PT/DP pulses 2+. Superficial peroneal, deep peroneal, sural, saphenous, and tibial nerves intact totouch. Imaging: Personal review of the patient's imaging reveals: Left shoulder: No fracture dislocation. Appropriate joint space. No osteophytes or subchondral sclerosis noted. Left ankle: No fracture or dislocation noted. Mortise appears intact. Assessment: 42 y.o. year-old female Follow-up (Left shoulder pain) and Left Ankle Pain Plan: We had a long talk about the nature of the Pt complaint. We reviewed the images together which shows Left shoulder: No fracture dislocation. Appropriate joint space. No osteophytes or subchondral sclerosis noted.Left ankle: No fracture or dislocation noted. Mortise appears intact. Clinically,Jose does appear to have rotator cuff pathology. She has previously attempted physical therapy to help with her shoulder however this was not beneficial. At this point she would like to move forward with obtaining an MRI to look at her soft tissue. MRI has been ordered. We discussed that my administration time to phone people with results is afternoons. I make every attempt to phone people with results the after the results are returned to me. The patient reports understanding. Her clinical exam in regards to her ankle could indicate perineal tendinosis. There is no fracture identified. At this point I would like her to move into a tall walker boot. This will help her stability as well as her discomfort when weightbearing. Follow up: As needed This plan was discussed with the patient and they are in agreement. All of the patient's questions were answered. The above dictation was made with voice recogonition software Gracy Ellis PA-C documented in this encounter Plan of Treatment Upcoming Encounters Date Type Department Care Team (Late st Contact Info) Description 12/31/2024 10:00 AM EST Office [place] [address] Mercy Amanda MD [facility] [address] [place] [address] 04/01/2025 2:00 PM EDT Office [place] [phone] Erum Szymanski MD [facility] [place] [address] documented as of this encounter Results * MRI Shoulder wo Contrast Left (Generic) (11/07/2017 5:31 PM EST) Anatomical Region Laterality Modality Shoulder Left Magnetic Resonan ce Impressions 11/08/2017 10:51 AM EST 1. ??No full-thickness rotator cuff tear. 2. ??Calcific rotator cuff tendinopathy with peribursal inflammation may contribute to pain. The calcification within the rotator cuff is better seen on the recent radiograph. 3. ??Equivocal for frozen shoulder I have personally reviewed the image(s) and the residents interpretation and agree with the findings, Melanie Jimenes at 11/08/2017 10:51 AM Narrative 11/08/2017 10:51 AM EST EXAMINATION: MRI SHOULDER WO CONTRAST LEFT (GENERIC) CLINICAL HISTORY: Concern for rotator cuff tear. TECHNIQUE: MRI of the LEFT shoulder without contrast. COMPARISON: Shoulder radiograph from 10/26/2017 FINDINGS: Multiple series were repeated because of motion artifacts. Glenohumeral joint: There is no fracture or bone marrow edema. The glenohumeral alignment is normal. No focal cartilage defect but detection of cartilage injury is limited by motion artifacts. No glenohumeral joint effusion. There is minimal effacement of the fat signal at the rotator interval and slightly thickened inferior joint capsule. This constellation of findings has been associated with frozen shoulder. Acromioclavicular joint: The AC joint is normal in alignment. There is minimal capsular thickening. No os acromiale. Bursa:There is peribursal inflammation, series 4-18. Rotator cuff : The tiny periarticular calcification, representing calcific rotator cuff tendinopathy, is seen only on the radiographs. No full-thickness cuff tear. There is rotator cuff tendinopathy represented by heterogeneous T2 signal. There is articular surface fraying of both supraspinatus and infraspinatus tendons. The subscapularis tendon appears normal. There is no muscle atrophy. Biceps tendon and glenoid labrum: The biceps tendon is normal in appearance. The labrum is intact. Procedure Note Melanie Jimenes MD - 11/08/2017 EXAMINATION: MRI SHOULDER WO CONTRAST LEFT (GENERIC) CLINICAL HISTORY: Concern for rotator cuff tear. TECHNIQUE: MRI of the LEFT shoulder without contrast. COMPARISON: Shoulder radiograph from 10/26/2017 FINDINGS: Multiple series were repeated because of motion artifacts. Glenohumeral joint: There is no fracture or bone marrow edema. Theglenohumeral alignment is normal. No focal cartilage defect but detection of cartilageinjury is limited by motion artifacts. No glenohumeral joint effusion. There is minimal effacement of the fat signal at the rotator intervaland slightly thickened inferior joint capsule. This constellation of findingshas been associated with frozen shoulder. Acromioclavicular joint: The AC joint is normal in alignment. There isminimal capsular thickening. No os acromiale. Bursa:There is peribursal inflammation, series 4-18. Rotator cuff : The tiny periarticular calcification, representingcalcific rotator cuff tendinopathy, is seen only on the radiographs. No full-thickness cuff tear. There is rotator cuff tendinopathyrepresented by heterogeneous T2 signal. There is articular surface fraying of both supraspinatus and infraspinatus tendons. The subscapularis tendonappears normal. There is no muscle atrophy. Biceps tendon and glenoid labrum: The biceps tendon is normal inappearance. The labrum is intact. IMPRESSION 1. No full-thickness rotator cuff tear. 2. Calcific rotator cuff tendinopathy with peribursal inflammation may contribute to pain. The calcification within the rotator cuff is betterseen on the recent radiograph. 3. Equivocal for frozen shoulder I have personally reviewed the image(s) and the residents interpretationand agree with the findings, Melanie Jimenes at 11/08/2017 10:51 AM Bakari Robison MD IMG MRI ORDERABLES * XR Tibia Fibula Left (Generic) (10/26/2017 11:25 AM EST) Anatomical Region Laterality Modality Left Digital Radiogra phy Impressions 10/26/2017 1:58 PM EST No radiographic finding to explain the patient's left lateral ankle pain. Narrative 10/26/2017 1:58 PM EST EXAMINATION: XR ANKLE MIN 3 VIEWS LEFT (GENERIC), XR TIBIA FIBULA LEFT (GENERIC) CLINICAL HISTORY: left lateral ankle pain TECHNIQUE: Frontal, lateral, oblique, and stress mortise view radiographs of the left ankle were obtained. Frontal lateral radiographs of the left tibia and fibula were obtained. COMPARISON: Left ankle radiographs dated 08/29/2017. FINDINGS: No fracture or dislocation. No ankle mortise widening, even on the stress view. Visualized joint spaces are preserved. Tiny osteophyte at the dorsal aspect of the talonavicular joint. Small enthesophytes at the Achilles tendon insertion on the plantar fascial attachment to the plantar calcaneus. Procedure Note Kevin Gruber MD - 10/26/2017 EXAMINATION: XR ANKLE MIN 3 VIEWS LEFT (GENERIC), XR TIBIA FIBULA LEFT(GENERIC) CLINICAL HISTORY: left lateral ankle pain TECHNIQUE: Frontal, lateral, oblique, and stress mortise view radiographs of the leftankle were obtained. Frontal lateral radiographs of the left tibia and fibulawere obtained. COMPARISON: Left ankle radiographs dated 08/29/2017. FINDINGS: No fracture or dislocation. No ankle mortise widening, even on the stressview. Visualized joint spaces are preserved. Tiny osteophyte at the dorsalaspect of the talonavicular joint. Small enthesophytes at the Achilles tendoninsertion on the plantar fascial attachment to the plantar calcaneus. IMPRESSION No radiographic finding to explain the patient's left lateral anklepain. Bakari Robison MD IMG DX ORDERABLES documented in this encounter Visit Diagnoses Diagnosis Left shoulder pain, unspecified chronicity Left ankle pain, unspecified chronicity Tear of rotator cuff, unspecified laterality, unspecified tear extent Ankle instability, left Left ankle pain, unspecified chronicity Left shoulder pain, unspecified chronicity Tear of rotator cuff, unspecified laterality, unspecified tear extent documented in this encounter Care Teams Parking Ramp Attendant Relationship Specialty Start Date End Date Sonido Cordoba PA [address] [place] [address] PCP - General Family Medicine 11/16/15 06/22/20 documented as of this encounter
--- OUTSIDE RECORDS SUMMARY | 2024-10-16 17:42 | XMS_ITS | Encounter Summary ---
Author Organization [facility] [place] [address] Care Team Providers Care Human Services Program Specialist Name Role Phone Sonido Cordoba Primary Care Provider +1- [phone] Reason for Referral * Physical Therapy (Routine) - Closed Specialty Diagnoses / Procedures Referred By Aric madrigal Referred To Contact Physical Therapy Diagnoses Scapular dyskinesis Iris Andres MD [facility] [address] [facility] [address] [place] [address] Referral ID Status Reason Start Date Expiration Date V isits Requested Visits Authorized [id number] Closed Evaluate and Treat 01/07/2018 07/06/2018 1 1 Reason for Visit * Reason Comments Left Shoulder Pain Encounter Details Date Type Department Care Team (Late st Contact Info) Description 01/07/2018 1:00 PM EST Office [place] [address] Iris Andres MD [facility] [address] Scapular dyskinesis Social History Tobacco Use Types Packs/Day Years [...] Sign Reading Time Taken Comments Blood Pressure 139/67 01/07/2018 12:52 PM EST Pulse 71 01/07/2018 12:52 PM EST Temperature - - Respiratory Rate - - Oxygen Saturation - - Inhaled Oxygen Concentration - - Weight 108.9 kg (240 lb) 01/07/2018 12:52 PM EST Height 160 cm (5' 3) 01/07/2018 12:52 PM EST Body Mass Index 42.51 01/07/2018 12:52 PM EST documented in this encounter Progress Notes * Iris Andres MD - 01/07/2018 1:00 PM EST Vianney Cordero returns today for follow up of left shoulder pain. She is doing about the same as when she was last seen. She reports having had this pain now for a couple of years. She is at [employer] and does a lot of overhead work. She says it bothers her when she is reaching overhead. She occasionally wakes from sleep with the pain. She says she tried PT in the past, but onlyattended 6 sessions over 3 weeks before giving up. She has not had any injections or anti-inflammatories. She has not had any surgery. She localizes the pain anteriorly and posteriorly. On physical examination, the patient is alert, oriented, and in no apparent distress. Point tenderness is maximal over the periscapular musculature posteriorly as well as the coracoid process and pectoralis minor. She also has a little bit of greater tuberosity tenderness. She does not have acromioclavicular joint tenderness. Range of motion is full, but painful in the overhead position. Rotator cuff strength is also full and symmetrical at 5 out of 5 in internal and external rotation at the side and abduction in the empty can position. She does have a markedly drooped scapula which is also protracted. She has marked scapular dyskinesia, but no evidence of winging. New studies: None obtained. I did review her old x-rays and MRI. She does not have a full-thicknessrotator cuff tear or any significant pathology that might benefit from surgery. Impression: She has marked scapular dyskinesia. I think this is her primary problem. I don't think there is an operation that can predictably relieve her symptoms at this point. I encouraged her to try therapy focused on scapular stabilization. A prescription was provided. I told her this will takeseveral months to work through. She is relieved that this will not require surgery and is happy to work through the protocol. I also suggested she take anti- inflammatories if okay with her primary care provider in order to minimize the inflammation that will accompany the initiation of therapy. This note was created with [employer] voice recognition software. documented in this encounter Plan of Treatment Upcoming Encounters Date Type Department Care Team (Late st Contact Info) Description 12/31/2024 10:00 AM EST Office [place] [address] Mercy Amanda MD [facility] [address] [place] [address] 04/01/2025 2:00 PM EDT Office [place] [phone] Erum Szymanski MD [facility] [place] [address] Scheduled Referrals Name Type Priority Associated Diagnoses Orde r Schedule Referral to Physical Therapy Outpatient Referral Routine Scapular dyskinesis Ordered: 01/07/2018 documented as of this encounter Visit Diagnoses Diagnosis Scapular dyskinesis Lack of coordination documented in this encounter Care Teams Human Services Program Specialist Relationship Specialty Start Date End Date Sonido Cordoba PA [address] [place] [address] PCP - General Family Medicine 11/16/15 06/22/20 documented as of this encounter
--- OUTSIDE RECORDS SUMMARY | 2024-10-16 17:42 | XMS_ITS | Encounter Summary ---
Author Organization [facility] Address [facility] [place] [address] Care Team Providers Care Team Sports Sales Associate Name Role Phone Sonido Cordoba Primary Care Provider +1- [phone] Reason for Visit * Auth/Cert Specialty Diagnoses / Procedures Referred By Aric madrigal Referred To Contact Diagnoses 6 months for egd with barretts biopies from 02/28/16 Procedures PRO UPPER GI ENDOSCOPY, DIAGNOSTIC EGD, UPPER GI ENDOSCOPY Referral ID Status Reason Start Date Expiration Date Visits Re quested Visits Authorized [id number] 1 1 Encounter Details Date Type Department Care Team (Late st Contact Info) Description 09/04/2016 9:45 AM EDT - 09/04/2016 10:15 AM EDT [place] [address] Brandt Barlow MD [facility] [place] [address] EGD WITH BIOPSY (WRVU 2.39) Social History [...] Reading Time Taken Comments Blood Pressure 145/72 09/04/2016 9:19 AM EDT Pulse 49 09/04/2016 9:19 AM EDT Temperature - - Respiratory Rate 18 09/04/2016 9:19 AM EDT Oxygen Saturation 98% 09/04/2016 9:19 AM EDT Inhaled Oxygen Concentration - - Weight - - Height - - Body Mass Index - - documented in this encounter Discharge Instructions * Discharge Instructions* Guanako Pardo RN - 09/04/2016 11:03 AM EDT UPPER GI ENDOSCOPY WHAT TO EXPECT AFTER THE PROCEDURE After the test you may feel a little more gassy or bloated than usual, this is normal. ACTIVITY Because of the sedation that you received Your judgement and reaction time are affected ?? Go home and rest quietly for the remainder of the day. You may resume your normal activities tomorrow. ?? Change from one position to the next slowly. You may lose your balance unexpectedly Be careful on stairs, as you may be unsteady on your feet. FOR THE NEXT 24 HRS ?? DO NOT DRIVE OR OPERATE ANY MACHINERY ?? DO NOT DRINK ALCOHOLIC BEVERAGES ?? DO NOT SIGN LEGAL DOCUMENTS ?? If you are a smoker: DO NOT SMOKE WHILE YOU ARE ALONE Diet ?? Start by eating small portions of foods that ordinarily will not upset your stomach. Be gentle with what you choose to start with. ?? Drink plenty of fluids ( unless otherwise told not to) Medications You may have a mild sore throat. Ice chips, popsicles, over the counter throat lozenges or spray may help numb your throat. This procedure should not cause a fever. IV SITE-- slight redness or tenderness is normal, you can use warm compresses if you get concerned.If the tenderness +/or redness increases or foul drainage and a red streak occurs, please contact your PCP immediately. WHEN SHOULD YOU CALL FOR HELP? Call 911 anytime you think that you need emergency care. For example, call if: You passed out (lost consciousness). You cough up blood. You vomit blood or what looks like coffee grounds. You pass maroon or very bloody stools. Call your healthcare provider or seek immediate [...] You do not get better as expected. Sunday-Sunday Same Day Endo [phone]-8p Otherwise contact [phone] and ask to speak to the shipyard helper carton stamper Follow-up care is a harper part of your treatment and safety. Be sure to make and go to all appointments, and call your doctor if you are having problems. Instructions have been reviewed and patient expresses understanding * Patient Instructions* Brandt Barlow MD - 09/04/2016 10:48 AM EDT Please see Recommendations in the Provation procedure report which is documented in the procedural note in E-DH. 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 No warning signs; clear lungs; rrr; risks explained; consent signed. documented in this encounter Plan of Treatment Upcoming Encounters Date Type Department Care Team (Late st Contact Info) Description 12/31/2024 10:00 AM EST Office [place] [address] Mercy Amanda MD [facility] [address] [place] [address] 04/01/2025 2:00 PM EDT Office [place] [address] Erum Szymanski MD [facility] [place] [address] documented as of this encounter Procedures Procedure Name Priority Date/Time Associated Diagnosis Comments SPECIMEN TO PATHOLOGY Routine 09/04/2016 10:49 AM EDT SPECIMEN TO PATHOLOGY Routine 09/04/2016 10:49 AM EDT SPECIMEN TO PATHOLOGY Routine 09/04/2016 10:49 AM EDT SPECIMEN TO PATHOLOGY Routine 09/04/2016 10:49 AM EDT SPECIMEN TO PATHOLOGY Routine 09/04/2016 10:49 AM EDT SURGICAL PATHOLOGY REPORT Routine 09/04/2016 10:48 AM EDT EGD WITH BIOPSY (WRVU 2.39) 09/04/2016 10:15 AM EDT 6 months for egd with barretts biopies from 4/25/16 UPPER GI ENDOSCOPY Routine 09/04/2016 10 :00 AM EDT documented in this encounter Results * Specimen to Pathology (surgical or derm) (09/04/2016 10:49 AM EDT) AP Specimen 09/04/2016 10:4 9 AM EDT 09/04/2016 10:[address] [facility] - 09/04/2016 10:49 AM EDT Specimen requisition ordered. ??Separate Pathology report to follow Brandt Barlow MD PATHOLOGY/CYTOLOGY O ZHANNA Performing Organization Address City/[facility]/[place] [address] * Specimen to Pathology (surgical or derm) (09/04/2016 10:49 AM EDT) AP Specimen 09/04/2016 10:4 9 AM EDT 09/04/2016 10:[address] [facility] - 09/04/2016 10:49 AM EDT Specimen requisition ordered. ??Separate Pathology report to follow Brandt Barlow MD PATHOLOGY/CYTOLOGY O ZHANNA Performing Organization Address City/[facility]/ZIP Co de Phone Number [facility] [place] [address] * Specimen to Pathology (surgical or derm) (09/04/2016 10:49 AM EDT) AP Specimen 09/04/2016 10:4 9 AM EDT 09/04/2016 10:[address] [facility] - 09/04/2016 10:49 AM EDT Specimen requisition ordered. ??Separate Pathology report to follow Brandt Barlow MD PATHOLOGY/CYTOLOGY O ZHANNA [facility] [place] [address] * Specimen to Pathology (surgical or derm) (09/04/2016 10:49 AM EDT) AP Specimen 09/04/2016 10:4 9 AM EDT 09/04/2016 10:[address] [facility] - 09/04/2016 10:49 AM EDT Specimen requisition ordered. ??Separate Pathology report to follow Brandt Barlow MD PATHOLOGY/CYTOLOGY O ZHANNA Performing Organization Address [facility] [place] [address] * Specimen to Pathology (surgical or derm) (09/04/2016 10:49 AM EDT) AP Specimen 09/04/2016 10:4 9 AM EDT 09/04/2016 10:[address] [facility] - 09/04/2016 10:49 AM EDT Specimen requisition ordered. ??Separate Pathology report to follow Brandt Barlow MD PATHOLOGY/CYTOLOGY Nan CHAO Performing Organization Address [facility] de Phone Number [facility] [place] [address] * Surgical Pathology Report (09/04/2016 10:48 AM EDT) Pathologist [facility] Final Diagnosis [id number] ?Location: 4T; 07; A The signing pathologist has (i) examined the relevant preparation(s) for the specimen(s) and (ii) rendered or confirmed the diagnosis(es). . 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 Electronically signed by: ??Norma RIVAS PhD, Donal Chao Verified: ??09/06/2016 ?Pathologist CLINICAL INFORMATION Specimen Submitted: A - Esophagus 36 cm B - Esophagus 34 cm C - Esophagus 32 cm D - Esophagus 30 cm E - Esophagus 28 cm Clinical History: GERD, Rodgers 's Clinical Diagnosis: Question Rodgers 's with dysplasia SPECIMEN PROCESSING A - Labeled/Fixativ e: Esophagus 36, formalin. Quantity/Size: Six, ranging from 0.1-0.5 cm. Tissue Description: ??Soft, pink tissues . Sections/Proces sing: (T2) B - Labeled/Fixativ e: 34 cm, formalin. Quantity/Size: Six, ranging from 0.2-0.4 cm. Tissue Description: ??Soft, pink tissues . Sections/Proces sing: (T2) C - Labeled/Fixativ e: Esophagus 32 cm, formalin. Quantity/Size: Five, averaging 0.3 cm. Tissue Description: ??Soft, pink tissues . Sections/Proces sing: (T1) . SPECIMEN PROCESSING D - Labeled/Fixativ e: Esophagus 30 cm, formalin. Quantity/Size: Six, averaging 0.3 cm. Tissue Description: ??Soft, pink tissues . Sections/Proces sing: (T2) E - Labeled/Fixativ e: Esophagus-28 cm, formalin. Quantity/Size: Five, averaging 0.3 cm. Tissue Description: ??Soft, pink tissues . Sections/Proces sing: (T1) ??sns 09/06/2016 4:[address] [facility] GI Biopsy 09/04/2016 10:4 8 AM EDT 09/04/2016 10:48 AM EDT GI Biopsy 09/04/2016 10:4 8 AM EDT 09/04/2016 10:48 AM EDT GI Biopsy 09/04/2016 10:4 8 AM EDT 09/04/2016 10:48 AM EDT GI Biopsy 09/04/2016 10:4 8 AM EDT 09/04/2016 10:48 AM EDT GI Biopsy 09/04/2016 10:4 8 AM EDT 09/04/2016 10:48 AM EDT Brandt Barlow MD PATHOLOGY/CYTOLOGY O RDERABLES Performing Organization Address [facility]/State/ZIP Co de Phone Number [facility] [place] [address] * UPPER GI ENDOSCOPY (09/04/2016 10:00 AM EDT) Pathologist [facility] UPPER GI ENDOSCOPY [facility] Endoscopy Procedure Date: 09/04/2016 10:00 AM ? Patient Name: Vianney Cordero ? N: [id number] ? Date of : 1975 ? Age: 40 ? Order #: [id number] ? Instrument Name: [id number] ? Procedure: ? Upper GI endoscopy Indications: ? Heartburn, Follow-up of esophageal ? reflux, Follow-up of reflux ? 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 Brandt Barlow MD, Ashish Araya RN, ? Jailyn Grissom, Juliette Frost MD: ?WANDY Andrade Medicines: ? Midazolam 4 mg IV, Fentanyl 200 ? micrograms IV, Diphenhydramine 50 mg ? IV, Benzocaine spray Complications: ? No immediate complications. Procedure: ? [...] ? endoscopy was accomplished without ? difficulty. ? Findings: ? The examined duodenum was normal. ? The entire examined stomach was normal. ? Esophagogastric landmarks were identified: the upper ? extent of the gastric folds was found at 37 cm from ? the incisors. ? There were esophageal mucosal changes suggestive of ? long-segment Rodgers's esophagus present in the lower ? third of the esophagus. The maximum longitudinal ? extent of these mucosal changes was approximately 9 ? cm in length starting at 37 cm and extending to 28 ? cm. Mucosa was biopsied with a cold forceps for ? histology in 4 quadrants at intervals of 2 cm from 28 ? to 36 cm from the incisors. A total of 5 specimen ? bottles were sent to pathology. ? The upper third of the esophagus was normal. ? Impression: ?- Normal examined duodenum. ? - Normal stomach. ? - Esophagogastric landmarks ? identified. ? - Esophageal mucosal changes ? 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 Biopsied. ? - Normal upper third of esophagus. Recommendation: ?- Await pathology results. ? - Letter to be sent to patient and ? provider in 8-10 days ? - Continue daily protonix - take 30 ? minutes before breakfast every day. ? - Return to primary care physician as ? previously scheduled. ? Procedure Code(s): ?? --- Professional --- ? 75602, Esophagogastroduod enoscopy, ? flexible, transoral; with biopsy, ? single or multiple CPT copyright 2015 [employer]. All rights reserved. The codes documented in this report are preliminary and upon coat checker review may be revised to meet current compliance requirements. Attending Participation: ? I personally performed the entire procedure. ? Brandt Barlow MD 09/04/2016 10:55:12 AM This report has been signed electronically. Number of Addenda: 0 Note Initiated On: 09/04/2016 10:00 AM PROVATION 09/04/2016 10:0 0 AM EDT Unknown GENERAL SURGICAL ORD ERABLES PROVATION documented in this encounter Visit Diagnoses Not on filedocumented in this encounter Administered Medications Inactive Administered Medications - up to 3 most recent administrations Medication Order MAR Action Action Date Dose Rate Site benzocaine (TOPEX) 20 % oral spray ONCE PRN, Starting on Sun09/04/16 at 1019, Until Sun09/04/16 at 1331, Intra-Operative (Intra-Procedure) Given 09/04/2016 10:19 AM EDT 2 each diphenhydrAMINE (BENADRYL) injection ONCE PRN, Starting on Sun09/04/16 at 1021, Until Sun09/04/16 at 1331, Intra-Operative (Intra-Procedure), Routine Given 09/04/2016 10:21 AM EDT 25 mg Given 09/04/2016 10:18 AM EDT 25 mg fentaNYL 50 mcg/mL multi-dose injection ONCE PRN, Starting on 09/04/16 at 1019, Until Sun09/04/16 at 1331, Intra-Operative (Intra-Procedure), Routine Given 09/04/2016 10:40 AM EDT 25 mcg Given 09/04/2016 10:33 AM EDT 25 mcg Given 09/04/2016 10:25 AM EDT 50 mcg lactated ringers infusion 100 mL/hr, Intravenous, CONTINUOUS, Starting on Sun09/04/16 at 0945, Until Sun09/04/16 at 1331, Endoscopy (Day of Procedure) midazolam (PF) (VERSED) 1 mg/mL multi-dose injection ONCE PRN, Starting on Sun09/04/16 at 1019, Until Sun09/04/16 at 1331, Intra-Operative (Intra-Procedure), Routine Given 09/04/2016 10:40 AM EDT 0.5 mg Given 09/04/2016 10:33 AM EDT 0.5 mg Given 09/04/2016 10:25 AM EDT 1 mg documented in this encounter Active and Recently Administered Medications Times are shown in EDT. Continuous Medication Order 09/02/2016 09/03/2016 09/04/2016 lactated ringers infusion 100 mL/hr, Intravenous, CONTINUOUS, Starting on Sun09/04/16 at 0945, Until Sun09/04/16 at 1331, Endoscopy (Day of Procedure) 0945 (Due) PRN Medication Order 09/02/2016 09/03/2016 09/04/2016 benzocaine (TOPEX) 20 % oral spray (CANCELED) ONCE PRN, Starting on Sun09/04/16 at 1019, Until Sun09/04/16 at 1331, Intra-Operative (Intra-Procedure) 1019 (Given - Provid er: Ashish Araya RN) diphenhydrAMINE (BENADRYL) injection (CANCELED) ONCE PRN, Starting on Sun09/04/16 at 1021, Until Sun09/04/16 at 1331, Intra-Operative (Intra-Procedure), Routine 1018 (Given - Provid er: Ashish Araya RN)1021 (Given - Provider: Ashish Araya RN) fentaNYL 50 mcg/mL multi-dose injection (CANCELED) ONCE PRN, Starting on Sun09/04/16 at 1019, Until Sun09/04/16 at 1331, Intra-Operative (Intra-Procedure), Routine 1019 (Given - Provid er: Ashish Araya RN)1021 (Given - Provider: Ashish G Marshal, RN)1025 (Given - Provider: Ashish Araya RN)1033 (Given - Provider: Ashish Araya RN)1040 (Given - Provider: Ashish Araya RN) midazolam (PF) (VERSED) 1 mg/mL multi-dose injection (CANCELED) ONCE PRN, Starting on Sun09/04/16 at 1019, Until Sun09/04/16 at 1331, Intra-Operative (Intra-Procedure), Routine 1019 (Given - Provid er: Ashish Araya RN)1021 (Given - Provider: Ashish Araya RN)1025 (Given - Provider: Ashish Araya RN)1033 (Given - Provider: Ashish Araya RN)1040 (Given - Provider: Ashish Araya RN) documented in this encounter Care Teams Team Sports Sales Associate Relationship Specialty Start Date End Date Sonido Cordoba PA [address] [place] [address] PCP - General Family Medicine 11/16/15 06/22/20 documented as of this encounter
--- OUTSIDE RECORDS SUMMARY | 2024-10-16 17:42 | XMS_ITS | Encounter Summary ---
Author Organization [facility] Address [facility] [place] [address] Care Team Providers Care Dowel Sander Operator Name Role Phone Sonido Cordoba Primary Care Provider +1- [phone] Encounter Details Date Type Department Care Team (Latest Contact Info) Description 10/26/2017 10:38 AM EST - 10/26/2017 11:59 PM [facility] Hospital Encounter XRay at [address] [place] [address] Bakari Robison MD [facility] [place] [address] Left ankle pain, unspecified chronicity Discharge Disposition: Home Social History Tobacco Use [...] AM EST Office [place] [address] Mercy Amanda MD [facility] [address] 04/01/2025 2:00 PM EDT Office [place] [address] Erum Szymanski MD [facility] [place] [address] documented as of this encounter Procedures Procedure Name Priority Date/Time Associated Diagnosis Comments XR TIBIA FIBULA LEFT Routine 10/26/2017 11:25 AM EST Left ankle pain, unspecified chronicity documented in this encounter Results * XR Tibia Fibula Left (Generic) (10/26/2017 [...] in this encounter Visit Diagnoses Diagnosis Left ankle pain, unspecified chronicity documented in this encounter Care Teams Dowel Sander Operator Relationship Specialty Start Date End Date Sonido Cordoba PA [address] [place] [address] PCP - General Family Medicine 11/16/15 06/22/20 documented as of this encounter
--- OUTSIDE RECORDS SUMMARY | 2024-10-16 17:42 | XMS_ITS | Encounter Summary ---
Author Organization [facility] [place] [address] Care Team Providers Care Hotel Controller Name Role Phone Sonido Cordoba Primary Care Provider +1- [phone] Encounter Details Date Type Department Care Team (Late st Contact Info) Description 10/26/2017 Orders Only [place] [address] Gracy Ellis PA [facility] [place] [address] Social History Tobacco Use Types Packs/Day Years [...] AM EST Office [place] [address] Mercy Amanda MD [facility] [address] [place] [address] 04/01/2025 2:00 PM EDT Office Visit [place] [address] Erum Szymanski MD [facility] [place] [address] documented as of this encounter Visit Diagnoses Not on filedocumented in this encounter Care Teams Hotel Controller Relationship Specialty Start Date End Date Sonido Cordoba PA [address] [place] [address] PCP - General Family Medicine 11/16/15 06/22/20 documented as of this encounter
--- OUTSIDE RECORDS SUMMARY | 2024-10-16 17:42 | XMS_ITS | Encounter Summary ---
Author Organization [facility] [place] [address] Care Team Providers Care Bsa Officer Name Role Phone Sonido Cordoba Primary Care Provider +1- [phone] Reason for Visit * Diagnostic Test (Routine) - Closed Specialty Diagnoses / Procedures Referred By Aric madrigal Referred To Contact Radiology Diagnoses Meralgia paraesthetica, left Procedures MRI Pelvis WO Contrast MRI Pelvis With/WO Contrast Bryan Grant MD [facility] [place] [address] [place] [address] Referral ID Status Reason Start Date Expiration Date V isits Requested Visits Authorized [id number] Closed Specialty Service Requested 03/24/2016 03/24/2017 1 1 Encounter Details Date Type Department Care Team (Latest Contact Info) Description 03/31/2016 5:28 PM EDT - 03/31/2016 11:59 PM EDT [place] [address] Nito Marin DO [facility] [place] [address] Meralgia paraesthetica, left Discharge Disposition: Home Social History Tobacco Use [...] AM EST Office [place] [address] Mercy Amanda MD [facility] [address] 04/01/2025 2:00 PM EDT Office [place] [address] Erum Szymanski MD [facility] [place] [address] documented as of this encounter Procedures Procedure Name Priority Date/Time Associated Diagnosis Comments MRI PELVIS SOFT TISSUE (GI PROCESSING CLERK) WO CONTRAST Routine 03/31/2016 7:57 PM EDT Meralgia paraesthetica, left documented in this encounter Results * MRI Pelvis WO Contrast (03/31/2016 7:57 PM EDT) Anatomical Region Laterality Modality Pelvis Magnetic Resonan ce Impressions 04/04/2016 9:22 AM EDT 1. ??There is tendinopathy at the gluteal insertions bilaterally. The significance of this finding is unclear. The distribution appears symmetric and I doubt this explains the patient's left-sided symptoms. 2. ??No focal nerve abnormality is identified. Narrative 04/04/2016 9:22 AM EDT EXAMINATION: MRI PELVIS WO CONTRAST CLINICAL HISTORY: rule out any pelvic pathology that could explain left leg numbness and tingling. COMPARISON: Pelvis x-ray 06/02/[address] of the pelvis dated 05/04/2015. TECHNIQUE: MRI of the pelvis was performed without contrast. The study was optimized for visualization of peripheral nerves. In addition to T1-weighted and T2-weighted axial images, a volumetric inversion recovery sequences acquired in the coronal plane. FINDINGS: No fracture or focal lesion of bone. There is edema overlying the greater trochanter of the proximal femora bilaterally. The appearance is characteristic of bilateral gluteal tendinopathy. This is associated with minimal fat infiltration and atrophy of the gluteus minimus muscles bilaterally. Muscle signal intensity elsewhere is normal. No soft tissue mass is identified. Within the pelvis no free fluid is identified. No hip effusion is seen bilaterally. The symphysis pubis is normal in appearance. No pathology is seen at the sacroiliac joints. The lumbosacral plexus is normal in appearance. The sciatic nerves are normal in appearance bilaterally. The obturator nerve is normal in appearance bilaterally. The femoral nerve is normal in appearance bilaterally. The proximal aspect of the lateral femoral radius nerve is normal bilaterally. More peripherally is not well displayed on this study. Procedure Note Jimmy Hopkins MD - 04/04/2016 EXAMINATION: MRI PELVIS WO CONTRAST CLINICAL HISTORY: rule out any pelvic pathology that could explain leftleg numbness and tingling. COMPARISON: Pelvis x-ray 06/02/[address] of the pelvis dated 05/04/2015. TECHNIQUE: MRI of the pelvis was performed without contrast. The studywas optimized for visualization of peripheral nerves. In addition toT1-weighted and T2-weighted axial images, a volumetric inversion recovery sequencesacquired in the coronal plane. FINDINGS: No fracture or focal lesion of bone. There is edema overlying the greater trochanter of the proximal femora bilaterally. The appearance is characteristic of bilateral glutealtendinopathy. This is associated with minimal fat infiltration and atrophy of thegluteus minimus muscles bilaterally. Muscle signal intensity elsewhere is normal. No soft tissue mass is identified. Within the pelvis no free fluid is identified. No hip effusion is seen bilaterally. The symphysis pubis is normal in appearance. No pathology is seen at the sacroiliac joints. The lumbosacral plexus is normal in appearance. The sciatic nerves are normal in appearance bilaterally. The obturator nerve is normal in appearance bilaterally. The femoral nerve is normal in appearance bilaterally. The proximal aspect of the lateral femoral radius nerve is normalbilaterally. More peripherally is not well displayed on this study. IMPRESSION 1. There is tendinopathy at the gluteal insertions bilaterally. The significance of this finding is unclear. The distribution appearssymmetric and I doubt this explains the patient's left-sided symptoms. 2. No focal nerve abnormality is identified. Nito Urban DO [facility] ORDERABLES documented in this encounter Visit Diagnoses Diagnosis Meralgia paraesthetica, left documented in this encounter Care Teams Bsa Officer Relationship Specialty Start Date End Date Sonido Cordoba PA [address] [place] [address] PCP - General Family Medicine 11/16/15 06/22/20 documented as of this encounter
--- OUTSIDE RECORDS SUMMARY | 2024-10-16 17:42 | XMS_ITS | Encounter Summary ---
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 [address] EGD WITH BIOPSY (WRVU 2.39) Social History [...] Sign Reading Time Taken Comments Blood Pressure 139/82 09/24/2017 9:25 AM EST Pulse 95 09/24/2017 9:25 AM EST Temperature - - Respiratory Rate 13 09/24/2017 9:25 AM EST Oxygen Saturation 98% 09/24/2017 9:25 AM EST Inhaled Oxygen Concentration - - Weight 102.1 kg (225 lb) 09/24/2017 8:40 AM EST Height 160 cm (5' 3) 09/24/2017 8:40 AM EST Body Mass Index 39.86 09/24/2017 8:40 AM EST documented in this encounter Discharge Instructions * Discharge Instructions* Leti Dwyer RN - 09/24/2017 9:39 AM EST UPPER GI ENDOSCOPY WHAT TO EXPECT AFTER [...] better as expected. Sunday-Sunday Same Day Endo [phone]-[id number] Otherwise contact [phone] and ask to speak to the powerhouse oiler caption writer Follow-up care is a harper part of your treatment and safety. Be sure to make and go to all appointments, and call your doctor if you are having problems. Instructions have been reviewed and patient expresses understanding documented in this encounter Medications [...] H&P Notes * Brandt Barlow MD - 09/24/2017 8:42 AM EST See pcp notes; no interval change; gerd; long segment barretts; stable for egd with biopsies; clearlungs; rrr; risks explained; consent signed; asa 2; mallampati 1. documented in this encounter Plan of Treatment Upcoming Encounters Date Type Department Care Team (Late st Contact Info) Description 12/31/2024 10:00 AM EST Office [place] [address] Mercy Amanda MD [facility] DR [facility] [address] 04/01/2025 2:00 PM EDT Office [place] [address] Erum Syzmanski MD [facility] [place] [address] documented as of this encounter Procedures Procedure Name Priority Date/Time Associated Diagnosis Comments SURGICAL PATHOLOGY REPORT Routine 09/24/2017 9:34 AM EST SPECIMEN TO PATHOLOGY Routine 09/24/2017 9:34 AM EST SPECIMEN TO PATHOLOGY Routine 09/24/2017 9:34 AM EST SPECIMEN TO PATHOLOGY Routine 09/24/2017 9:34 AM EST SPECIMEN TO PATHOLOGY Routine 09/24/2017 9:34 AM EST SPECIMEN TO PATHOLOGY Routine 09/24/2017 9:34 AM EST EGD WITH BIOPSY (WRVU 2.39) 09/24/2017 8:54 AM EST 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 Location: 4T; EA08; A The signing pathologist has (i) examined the relevant preparation(s) for the specimen(s) and (ii) rendered or confirmed the diagnosis(es). . 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 No dysplasia is seen. 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 No dysplasia is seen. 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 No dysplasia is seen. 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 No dysplasia is seen. 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 No dysplasia is seen. Electronically signed by: ??Ayad Dee MD Verified: ??09/28/2017 ?Pathologist Performed at: ??-[facility] Dept. of Pathology, [place], [place] CLINICAL INFORMATION Specimen Submitted: A - Esophagus - 35 cm B - Esophagus - 33 cm C - Esophagus - 31 cm D - Esophagus - 29 cm E - Esophagus - 27 cm Clinical History: GERD; Rodgers 's Clinical Diagnosis: Rodgers 's;? Dysplasia SPECIMEN PROCESSING A - Labeled/Fixativ e: Esophagus-35 cm, formalin. Quantity/Size: Multiple, 0.2-0.3 cm. Tissue Description: Soft pink-white tissue. Sections/Proces sing: (T1) B - Labeled/Fixativ e: Esophagus-33 cm, formalin. Quantity/Size: Four, 0.2-0.3 cm. Tissue Description: Soft pink-white tissue. Sections/Proces sing: (T1) C - Labeled/Fixativ e: Esophagus-31 cm, formalin. Quantity/Size: Multiple, 0.1-0.3 cm. Tissue Description: Soft pink tissue. Sections/Proces sing: (T2) . SPECIMEN PROCESSING D - Labeled/Fixativ e: Esophagus-29 cm, formalin. Quantity/Size: Multiple, 0.2-0.3 cm. Tissue Description: Soft pink-white tissue. Sections/Proces sing: (T1) E - Labeled/Fixativ e: Esophagus-27 cm, formalin. Quantity/Size: Multiple, 0.2-0.3 cm. Tissue Description: Soft pink-white tissue. Sections/Proces sing: (T2) ??sunita 09/28/2017 1:32 PM EST [facility] GI Biopsy 09/24/2017 9:34 AM EST 09/24/2017 9:34 AM EST GI Biopsy 09/24/2017 9:34 AM EST 09/24/2017 9:34 AM EST GI Biopsy 09/24/2017 9:34 AM EST 09/24/2017 9:34 AM EST GI Biopsy 09/24/2017 9:34 AM EST 09/24/2017 9:34 AM EST GI Biopsy 09/24/2017 9:34 AM EST 09/24/2017 9:34 AM EST Brandt Barlow MD PATHOLOGY/CYTOLOGY O ZHANNA Performing Organization Address City/[facility] Co de Phone Number [facility] [place] [address] * Specimen to Pathology (surgical or derm) (09/24/2017 9:34 AM EST) AP Specimen 09/24/2017 9:34 AM EST 09/24/2017 9:34 AM EST Narrative [facility] - 09/24/2017 9:34 AM EST Specimen requisition ordered. ??Separate Pathology report to follow Brandt Barlow MD PATHOLOGY/CYTOLOGY O RDFANTA Performing Organization Address [facility] Co de Phone Number [facility] [place] [address] * Specimen to Pathology (surgical or derm) (09/24/2017 9:34 AM EST) AP Specimen 09/24/2017 9:34 AM EST 09/24/2017 9:34 AM EST Narrative [facility] - 09/24/2017 9:34 AM EST Specimen requisition ordered. ??Separate Pathology report to follow Brandt Barlow MD PATHOLOGY/CYTOLOGY O ZHANNA Performing Organization Address [facility] [place] [address] * Specimen to Pathology (surgical or derm) (09/24/2017 9:34 AM EST) AP Specimen 09/24/2017 9:34 AM EST 09/24/2017 9:34 AM EST Narrative [facility] - 09/24/2017 9:34 AM EST Specimen requisition ordered. ??Separate Pathology report to follow Brandt Barlow MD PATHOLOGY/CYTOLOGY O ZHANNA Performing Organization Address [facility] [place] [address] * Specimen to Pathology (surgical or derm) (09/24/2017 9:34 AM EST) AP Specimen 09/24/2017 9:34 AM EST 09/24/2017 9:34 AM EST Narrative [facility] - 09/24/2017 9:34 AM EST Specimen requisition ordered. ??Separate Pathology report to follow Brandt Barlow MD PATHOLOGY/CYTOLOGY O RDFANTA Performing Organization Address [facility] [place] [address] * Specimen to Pathology (surgical or derm) (09/24/2017 9:34 AM EST) AP Specimen 09/24/2017 9:34 AM EST 09/24/2017 9:34 AM EST Narrative [facility] - 09/24/2017 9:34 AM EST Specimen requisition ordered. ??Separate Pathology report to follow Brandt Barlow MD PATHOLOGY/CYTOLOGY O RDFANTA Performing Organization Address City/[facility]/ZIP Co de Phone Number [facility] [place] [address] * UPPER GI ENDOSCOPY (09/24/2017 8:25 AM EST) [facility] UPPER GI ENDOSCOPY [facility] Endoscopy Procedure Date: 09/24/2017 8:25 AM ? Patient Name: Vianney Cordero ? Date of : 1975 ? Age: 41 ? Order #: [id number] ? Instrument Name: [id number] ? Procedure: ? Upper GI endoscopy Indications: ? Heartburn, Follow-up of esophageal ? 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 Brandt Barlow MD, Clovis Rizvi ? Richard, RN, Perlita Rodgers, ? Vice President Of Development Referring : ?WANDY Andrade Medicines: ? Midazolam 5.5 mg IV, Fentanyl 200 ? micrograms IV, [...] the ? procedure well. ? Findings: ? The examined duodenum was normal. ? The entire examined stomach was normal. ? There were esophageal mucosal changes suggestive of ? long-segment Rodgers's esophagus present in the lower ? and middle third of the esophagus. The maximum ? longitudinal extent of these mucosal changes was 8 cm ? in length. The gastric folds stopped at 35 cm. No ? distinct z-line was present. Mucosa was biopsied with ? a cold forceps for histology in 4 quadrants at ? intervals of 2 cm (35 cm, 33 cm, 31 cm, 29 cm, 27 ? cm). A total of 5 specimen bottles were sent to ? pathology. No raised lesions were noted on either ? white light or NBI. ? The upper third of the esophagus was normal. ? Moderate Sedation: ? Moderate (conscious) sedation was administered by the ? endoscopy nurse and supervised by the endoscopist. ? The following parameters were monitored: oxygen ? saturation, heart rate, blood pressure, and response ? to care. Impression: ?- Normal examined duodenum. ? - Normal stomach. ? - Esophageal mucosal changes ? 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 Biopsied. ? - Normal upper third of esophagus. Recommendation: ?- Await pathology results. ? - Letter to be sent to patient and ? provider in 8-10 days. ? - Continue lifestyle modifications ? for GERD (light evening meals; low ? fat dinner; no evening snacks, ? elevate head of bed 3 inches) and PPI ? therapy. ? - Return to primary care physician as ? previously scheduled. ? Procedure Code(s): ?? --- Professional --- ? 72117, Esophagogastroduod enoscopy, ? flexible, transoral; with biopsy, ? single or multiple CPT copyright 2016 [employer]. All rights reserved. The codes documented in this report are preliminary and upon machine adjuster leader review may be revised to meet current compliance requirements. Attending Participation: ? I personally performed the entire procedure. ? Brandt Barlow MD 09/24/2017 9:54:29 AM This report has been signed electronically. Number of Addenda: 0 Note Initiated On: 09/24/2017 8:25 AM PROVATION 09/24/2017 8:25 AM EST Unknown GENERAL SURGICAL ORD ERABLES PROVATION documented in this encounter Visit Diagnoses Not on filedocumented in this encounter Administered Medications Inactive Administered Medications - up to 3 most recent administrations Medication Order MAR Action Action Date Dose Rate Site diphenhydrAMINE (BENADRYL) injection ONCE PRN, Starting on Sun09/24/17 at 0901, Until Sun09/24/17 at 1221, Intra-Operative (Intra-Procedure), Routine Given 09/24/2017 9:04 AM EST 25 mg Right Arm Given 09/24/2017 9:01 AM EST 25 mg Ri ght Arm fentaNYL 50 mcg/mL multi-dose injection ONCE PRN, Starting on Sun09/24/17 at 0901, Until Sun09/24/17 at 1221, Intra-Operative (Intra-Procedure), Routine Given 09/24/2017 9:10 AM EST 50 mcg Right Arm Given 09/24/2017 9:07 AM EST 50 mcg Ri ght Arm Given 09/24/2017 9:04 AM EST 50 mcg Ri ght Arm lactated Ringers infusion 100 mL/hr, Intravenous, CONTINUOUS, Starting on Sun09/24/17 at 0915, Until Sun09/24/17 at 1005, Endoscopy (Day of Procedure) New Bag 09/24/2017 8:52 AM EST 100 mL/hr 100 mL/hr midazolam (PF) (VERSED) 1 mg/mL multi-dose injection ONCE PRN, Starting on Sun09/24/17 at 0901, Until Sun09/24/17 at 1221, Intra-Operative (Intra-Procedure), Routine Given 09/24/2017 9:22 AM EST 0.5 mg Right Arm Given 09/24/2017 9:15 AM EST 1 mg Ri ght Arm Given 09/24/2017 9:10 AM EST 1 mg Ri ght Arm documented in this encounter Active and Recently Administered Medications Times are shown in EST. Continuous Medication Order 09/22/2017 09/23/2017 09/24/2017 lactated Ringers infusion (CANCELED) 100 mL/hr, Intravenous, CONTINUOUS, Starting on Sun09/24/17 at 0915, Until Sun09/24/17 at 1005, Endoscopy (Day of Procedure) 0852 (New Bag - Prov ider: Guanako Pardo RN) PRN Medication Order 09/22/2017 09/23/2017 09/24/2017 diphenhydrAMINE (BENADRYL) injection (CANCELED) ONCE PRN, Starting on Sun09/24/17 at 0901, Until Sun09/24/17 at 1221, Intra-Operative (Intra-Procedure), Routine 900 (Given - Provid er: Clovis Ramos RN)903 (Given - Provider: Clovis Ramos RN) fentaNYL 50 mcg/mL multi-dose injection (CANCELED) ONCE PRN, Starting on 09/24/17 at 0901, Until 09/24/17 at 1221, Intra-Operative (Intra-Procedure), Routine 900 (Given - Provid er: Clovis Ramos RN)0904 (Given - Provider: Clovis Ramos RN)0907 (Given - Provider: Clovis Ramos RN)0910 (Given - Provider: Clovis Ramos RN) midazolam (PF) (VERSED) 1 mg/mL multi-dose injection (CANCELED) ONCE PRN, Starting on Sun09/24/17 at 0901, Until Sun09/24/17 at 1221, Intra-Operative (Intra-Procedure), Routine 0901 (Given - Provid er: Clovis Ramos RN)0904 (Given - Provider: Clovis Ramos RN)0907 (Given - Provider: Clovis Ramos RN)0910 (Given - Provider: Clovis Ramos RN)0915 (Given - Provider: Clovis Ramos RN)0922 (Given - Provider: Clovis Ramos RN) documented in this encounter Care Teams Maternity Nurse Relationship Specialty Start Date End Date Sonido Cordoba PA [address] [place] [address] PCP - General Family Medicine 11/16/15 06/22/20 documented as of this encounter
--- OUTSIDE RECORDS SUMMARY | 2024-10-16 17:42 | XMS_ITS | Encounter Summary ---
Author Organization [facility] [place] [address] Care Team Providers Care Sba Business Development Officer Name Role Phone Sonido Cordoba Primary Care Provider +1- [phone] Reason for Visit * Reason Onset Date Comments Questions 11/26/2017 Encounter Details Date Type Department Care Team (Late st Contact Info) Description 11/26/2017 [place] [address] Gracy Ellis PA [facility] [place] [address] Questions Social History Tobacco Use Types Packs/Day Years [...] encounter Miscellaneous Notes * Telephone Encounter - Clara Gamez - 11/26/2017 9:51 AM EST The patient called seeking a follow-up plan for her pain. I relayed Cyndee's message to Yoli on 11/21/17 regarding the injection/PT option vs. Surgery. She believes that she would like to move forward with a discussion about surgery at this time. I transferred her to the scheduling team. documented in this encounter Plan of Treatment Upcoming Encounters Date Type Department Care Team (Late st Contact Info) Description 12/31/2024 10:00 AM EST [place] [address] Mercy Amanda MD [facility] [address] [facility] [place] [address] 04/01/2025 2:00 PM EDT Office [place] [address] Erum Szymanski MD [facility] [place] [address] documented as of this encounter Visit Diagnoses Not on filedocumented in this encounter Care Teams Sba Business Development Officer Relationship Specialty Start Date End Date Sonido Cordoba PA [address] [place] [address] PCP - General Family Medicine 11/16/15 06/22/20 documented as of this encounter
--- OUTSIDE RECORDS SUMMARY | 2024-10-16 17:42 | XMS_ITS | Encounter Summary ---
Author Organization [facility] Address [facility] [place] [address] Care Team Providers Care Kitchen Lead Name Role Phone Sonido Cordoba Primary Care Provider +1- [phone] Encounter Details Date Type Department Care Team (Latest Contact Info) Description 03/15/2016 9:59 AM EDT - 03/15/2016 11:59 PM EDT Hospital Encounter XRay at [address] [place] [address] Sonido Cordoba PA [address] [place], [place] [id number] Dysphagia Discharge Disposition: Home Social History Tobacco Use [...] Sig Dispensed Refills Start Date End Date gabapentin (NEURONTIN) 100 mg Capsule 400 mg. [...] AM EST Office [place] [address] Mercy Amanda MD [facility] DR [facility] [address] 04/01/2025 2:00 PM EDT Office [place] [address] Erum Szymanski MD [facility] [place] [address] documented as of this encounter Procedures Procedure Name Priority Date/Time Associated Diagnosis Comments XR FLUORO BARIUM SWALLOW (SINGLE CONTRAST) Routine 03/15/2016 10:54 AM EDT Dysphagia documented in this encounter Results * XR Fluoro Barium Swallow (03/15/2016 10:54 AM EDT) Anatomical Region Laterality Modality N/A Radio Fluoroscop y Impressions 03/15/2016 2:29 PM EDT IMPRESSION: 1. ??No difficulty swallowing the examination and no elicitation of the patient's symptoms. No recurrence of hiatal hernia. 2. ??Addie wraps in satisfactory position below the diaphragm. 3. ??Strong primary stripping wave with minimal to and fro splitting of the bolus and scattered secondary and tertiary contractions. 4. ??Esophageal reflux to the level of the upper esophageal sphincter. I have personally reviewed the image(s) and the residents interpretation and agree with the findings, Clovis Delong at 03/15/2016 2:29 PM Narrative 03/15/2016 2:29 PM EDT EXAMINATION: XR FLUORO BARIUM SWALLOW CLINICAL HISTORY: dyphagia TECHNIQUE: ??Multiple fluoroscopic images of the pharynx, esophagus and GE junction were obtained after administration of thick and thin barium, as well as a 13 mm barium pill. Fluoroscopy time 2 minutes and 59 seconds COMPARISON: CT of the abdomen and pelvis dated May 04, 2013 and abdominal radiographs dated June 02, 2015. FINDINGS: Patient swallowed without difficulty throughout the examination. There is adequate this distention of the esophagus with adequate visualization of the mucosa. No mucosal or mural abnormalities were noted. The esophageal vestibule was clearly visualized, there is no evidence of hiatal hernia. The barium pill passed through the esophagus without difficulty, and through the GE junction into the stomach without further intervention. The Addie wrap was identified below the diaphragm. There is a strong primary stripping wave, with minimal to and fro splitting of the bolus and scattered secondary and tertiary contractions. There was no hiatal hernia, visualized during Valsalva maneuvers. Reflux of barium into the esophagus was elicited to the level of the upper esophageal sphincter both with and without Valsalva maneuver. Procedure Note Clovis Delong MD - 03/15/2016 EXAMINATION: XR FLUORO BARIUM SWALLOW CLINICAL HISTORY: dyphagia TECHNIQUE: Multiple fluoroscopic images of the pharynx, esophagus andGE junction were obtained after administration of thick and thin barium, aswell as a 13 mm barium pill. Fluoroscopy time 2 minutes and 59 seconds COMPARISON: CT of the abdomen and pelvis dated May 04, 2013 andabdominal radiographs dated June 02, 2015. FINDINGS: Patient swallowed without difficulty throughout the examination. There is adequate this distention of the esophagus with adequatevisualization of the mucosa. No mucosal or mural abnormalities were noted. The esophageal vestibule was clearly visualized, there is no evidence ofhiatal hernia. The barium pill passed through the esophagus without difficulty, andthrough the GE junction into the stomach without further intervention. The Addie wrapwas identified below the diaphragm. There is a strong primary stripping wave, with minimal to and frosplitting of the bolus and scattered secondary and tertiary contractions. There was no hiatal hernia, visualized during Valsalva maneuvers. Refluxof barium into the esophagus was elicited to the level of the upperesophageal sphincter both with and without Valsalva maneuver. IMPRESSION IMPRESSION: 1. No difficulty swallowing the examination and no elicitation of thepatient's symptoms. No recurrence of hiatal hernia. 2. Addie wraps in satisfactory position below the diaphragm. 3. Strong primary stripping wave with minimal to and fro splitting of thebolus and scattered secondary and tertiary contractions. 4. Esophageal reflux to the level of the upper esophageal sphincter. I have personally reviewed the image(s) and the residents interpretationand agree with the findings, Clovis Delong at 03/15/2016 2:29 PM Sonido SABA IMG FLUORO ORDERAB LES documented in this encounter Visit Diagnoses Diagnosis Dysphagia Dysphagia, unspecified documented in this encounter Administered Medications Inactive Administered Medications - up to 3 most recent administrations Medication Order MAR Action Action Date Dose Rate Site barium sulfate (E-Z DISK) tablet 700 mg 700 mg, Oral, ONCE, 1 dose, On Sun03/15/16 at 1115, Routine Given 03/15/2016 10:55 AM EDT 700 mg barium sulfate (EZPAQUE) oral suspension 355 mL 355 mL, Oral, ONCE, 1 dose, On Sun03/15/16 at 1115, Routine Given 03/15/2016 10:55 AM EDT 355 mLs documented in this encounter Care Teams Kitchen Lead Relationship Specialty Start Date End Date Sonido Cordoba PA [address] [place] [address] PCP - General Family Medicine 11/16/15 06/22/20 documented as of this encounter
--- OUTSIDE RECORDS SUMMARY | 2024-10-16 17:42 | XMS_ITS | Encounter Summary ---
[place] [address] Care Team Providers Care Financial Services Consultant Name Role Phone Sonido Cordoba Primary Care Provider [phone] Reason for Visit * Reason Comments Nephrolithiasis Encounter Details Date Type Department Care Team (Late st Contact Info) Description 09/11/2017 4:00 PM EST [place] [address] Darius Nuñez Jr., MD [facility] [place] [address] Nephrolithiasis Social History Tobacco Use Types Packs/Day [...] Sign Reading Time Taken Comments Blood Pressure 131/9 09/11/2017 3:49 PM EST Pulse 81 09/11/2017 3:49 PM EST Temperature - - Respiratory Rate - - Oxygen Saturation - - Inhaled Oxygen Concentration - - Weight 97.5 kg (215 lb) 09/11/2017 3:49 PM EST Height 160 cm (5' 3) 09/11/2017 3:49 PM EST Body Mass Index 38.09 09/11/2017 3:49 PM EST documented in this encounter Progress Notes * Darius Nuñez Jr., MD - 09/11/2017 4:00 PM EST HPI: Vianney Cordero is a pleasant 41 year old woman who returns for urologic follow up regarding mixed CaOx/CaPhos nephrolithiasis. She underwent right PCNL on 06/01/15. Intraoperative findings were notable for a large right renal pelvic stone. Postop imaging confirmed she had been rendered stone free. Stone analysis revealed mixed CaPhos/Caox. Given calcium phosphate component, I recommended 24h urine and metabolic evaluation, although she opted not to proceed with metabolic testing. She had noted that she had previously ingested large amounts of TUMS due to her hiatal hernia, which may have contributed to her stone formation. She is no longer using TUMS. In the year since her last visit of 08/09/16, she has been well. She denies new interval medical diagnoses. She specifically denies witnessed stone passage or suspected renal colic. She does note occasional,sporadic episodes of mild, dull right sided low back pain, and has similar mild right low back paintoday (1-2/10 in severity). Pain does not radiate, is superficial and present to light touch. She denies hematuria or new LUTS. Review of Systems Constitution: Negative for chills and fever. Musculoskeletal: Positive for back pain. Gastrointestinal: Negative for abdominal pain. Genitourinary: Negative for hematuria. PMHx: nephrolithiasis PSHx: D&C; tonsillectomy; right SWL; paraesophageal hernia repair; right PCNL FamHx: cousin with family h/o urolithiasis SocHx: no tobacco; no EtOH Physical Exam Constitutional: She is oriented to person, place, and time. She appears well- developed and well-nourished. HENT: Head: Normocephalic and atraumatic. Cardiovascular: Normal rate. Pulmonary/Chest: Effort normal. No respiratory distress. Abdominal: Soft. She exhibits no distension. There is no tenderness. There is no rebound and no guarding. Genitourinary: Genitourinary Comments: Scant right CVA tenderness to palpation / light touch . No left CVA tenderness Neurological: She is alert and oriented to person, place, and time. Skin: Skin is warm and dry. No rash noted. No erythema. Psychiatric: She has a normal mood and affect. Her behavior is normal. Stone Analysis: 50% Calcium phosphate (apatite); 20% Calcium oxalate monohydrate; 20% Calcium oxalate dihydrate; 10% Calcium carbonate Imaging studies: I independently reviewed the renal ultrasound from today. This reveals no evidenceof hydronephrosis, hydroureter, or stones. Impression/Plan: 1) History of mixed CaPhos/ CaOx stones. No evidence of interval stone recurrence. We reviewed follow up options. She wishes to continue interval surveillance imaging but would like to extend interval to q 2 years. I have ordered a follow up ultrasound for that visit. 2)Right low back pain of unclear etiology. We discussed that the source of the noted back pain is uncertain, but that there is no evident renal abnormality to account for it. She will discuss evaluation for alternative sources with her PCP. documented in this encounter Plan of Treatment Upcoming Encounters Date Type Department Care Team (Late st Contact Info) Description 12/31/2024 10:00 AM EST [place] [id number] Mercy Amanda MD [facility] [address] 04/01/2025 2:00 PM EDT Office [place] [address] Erum Szymanski MD [facility] [place] [address] documented as of this encounter Visit Diagnoses Diagnosis Nephrolithiasis Calculus of kidney documented in this encounter Care Teams Financial Services Consultant Relationship Specialty Start Date End Date Sonido Cordoba PA [address] [place] [address] PCP - General Family Medicine 11/16/15 06/22/20 documented as of this encounter
--- OUTSIDE RECORDS SUMMARY | 2024-10-16 17:42 | XMS_ITS | Encounter Summary ---
Author Organization [facility] [place] [address] Care Team Providers Care Drier Helper Name Role Phone Sonido Cordoba Primary Care Provider [phone]- [phone] Reason for Visit * Consultation (Routine) - Closed Specialty Diagnoses / Procedures Referred By Aric madrigal Referred To Contact Gastroenterology Diagnoses Chronic diarrhea Sonido Cordoba PA [address] [place] [address] [facility] [place] [address] Referral ID Status Reason Start Date Expiration Date V isits Requested Visits Authorized [id number] Closed Consult, Test & Treat Connection Center 02/17/2018 02/17/2019 1 1 Encounter Details Date Type Department Care Team (Late st Contact Info) Description 04/17/2018 10:00 AM EDT Office Visit [place] [address] Jena Severino PA [facility] [place] [address] Diarrhea, unspecified type; Upper abdominal pain Social History Tobacco Use Types Packs/Day [...] Sign Reading Time Taken Comments Blood Pressure 145/80 04/17/2018 10:03 AM EDT Pulse 65 04/17/2018 10:03 AM EDT Temperature - - Respiratory Rate - - Oxygen Saturation - - Inhaled Oxygen Concentration - - Weight 102.1 kg (225 lb) 04/17/2018 10:03 AM EDT Height 160 cm (5' 3) 04/17/2018 10:03 AM EDT Body Mass Index 39.86 04/17/2018 10:03 AM EDT documented in this encounter Patient Instructions * Patient Instructions* Jena Severino - 04/17/2018 10:00 AM EDT Thank you for coming in today. Here is a summary of what we discussed: 1. Stool studies- submit loose stool sample at your local lab. Please let me know when and where you gave the samples so I can get the results 2. Labs today 3. Abdominal ultrasound 4. Follow up in 2 months. documented in this encounter Progress Notes * Jena Severino - 04/17/2018 10:00 AM EDT Gastroenterology & Hepatology New Patient Consultation Note PCP: WANDY Aguilera Requesting Provider: WANDY Aguilera Reason for consultation: Vianney Cordero is a 42 y.o. female with medical history significant for hx Rodgers's esophagus, paraesophageal hernia s/p Tyesha fundoplication (2014). I am seeing her as a new patient today in consult for question of chronic diarrhea. Subjective: HPI: Vianney has had 2.5 months of loose stools - on further recollection she has had alternating diarrhea and solid bowel movements since her hernia repair in 2014, but for the past 2.5 months has had only diarrhea. No medication changes, antibiotics, travel, illness around time of onset. Had pneumonia a month ago but that was after diarrhea begin. Diarrhea is usually after she eats 90% of the time. Sometimes diarrhea without meals. Has 3-4 BM/day, [place] scale 7, [place] 6 sometimes. No blood or black tarry stools. Urgency but no accidents. No nocturnal diarrhea. Sometimes has left sided pain/cramping with BM, relieves after BM. Bloated, not much gas. - She has not tried imodium or other antidiarrheals. No stool studies. She denies acid reflux and heartburn. No dysphagia. Sometimes feels RUQ pain, feels like pinching lasts couple of hours. sometimes worse after meals,thinks worse after fatty meals. Comes and goes daily x 4 yrs. Reports that US and other studies have been normal. States that it is becoming more frequent and intense over time. - Paraesophageal hiatal hernia repair and Tyesha fundoplication with Dr Moura on 04/05/2015.. - Has town water but drinks bottled water. Diet review: B: skips L: salad D: skips or burger Weight: stable Appetite: low Exercise: hiking Diagnostic studies: 1. [...] of bed 3 inches) and PPI therapy. ? ROS: Constitutional: + fevers 101.2 (99 to 104) Denies unintended weight loss, fatigue, night sweats Eyes: Denies red or painful eyes ENT: Denies dysphagia, odynophagia Resp: + short of breath Denies cough Cardio: + chest pain with coughing, : Denies dysuria, incontinence Integumentary: + rosacea Denies new rashes, sores, lesions GI: see HPI Musculoskeletal: Denies new joint pain, stiffness, muscle aches Neuro: + frequent headaches, ongoing ALL/IMMUNO: + [...] Tablet ??? gabapentin (NEURONTIN) 300 mg Capsule NSAIDs - taking Aleve PRN. Cyclobenzaprine PRN for headaches ALLERGIES: Allergies Allergen Reactions ??? Oxycodone Nausea And Vomiting SURGICAL HISTORY: Past Surgical History: Procedure Laterality Date ??? DILATION AND CURETTAGE OF UTERUS 1994 ??? PRO CYSTO/URETERO/PYELOSCOPY, DX Right 06/01/2015 CYSTOURETEROSCOPY, DIAGNOSTIC performed by Darius Nuñez Jr., MD at [facility] OR ??? PRO CYSTOSCOPY, INSERT URETERAL STENT Right 06/01/2015 CYSTO, STENT PLACEMENT performed by Darius Nuñez Jr., MD at [facility] OR ??? PRO LAP, ESOPHAGOGAST FUNDOPLASTY N/A 04/05/2015 LAPAROSCOPIC TYESHA FUNDOPLASTY performed by Valentín Moura MD at [facility] OR ??? PRO PERCUT DILATN RENAL TRACT Right 06/01/2015 PERCUTANEOUS INTRO GUIDE WIRE TO ACCESS RENAL PELVIS,AND OR URETER, W\DILATION performed by Darius Nuñez Jr., MD at [facility] OR ??? PRO PERCUT REMV KID STONE, UP TO 2 CM Right 06/01/2015 NEPHROLITHOTOMY, ([facility]NL) PERCUTANEOUS performed by Darius Nuñez Jr., MD at [facility] OR ??? PRO UPPER GI ENDOSCOPY, BIOPSY N/A 01/27/2015 EGD WITH BIOPSY performed by Brandt Barlow MD at [facility] ??? PRO UPPER GI ENDOSCOPY, BIOPSY N/A 02/28/2016 EGD WITH BIOPSY performed by Brandt Barlow MD at [facility] ??? PRO UPPER GI ENDOSCOPY, BIOPSY N/A 09/04/2016 EGD WITH BIOPSY performed by Brandt Barlow MD at [facility] ??? PRO UPPER GI ENDOSCOPY, BIOPSY N/A 09/24/2017 EGD WITH BIOPSY (WRVU 2.49) performed by Brandt Barlow MD at [facility] ??? 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 There is no history of liver or pancreas disease. Objective: PHYSICAL EXAMINATION: Most Recent Vitals: 04/17/18 1003 BP: 145/80 Pulse: 65 Body mass index is 39.86 kg/(m^2). GEN: Alert, well-appearing, no acute distress. Appears stated age. Cooperates and answers questionsappropriately. Accompanied by her partner. SKIN: No rashes or abnormal lesions. NECK: No lymphadenopathy, thyromegaly. HEENT: Normal sclera, PERRL, oropharynx clear without ulceration or lesions. LUNGS: Clear to auscultation bilaterally. COR: Regular, normal S1 and S2 without murmurs ABD: Normal active bowel sounds. Obese abd. Soft and non-distended. Focal TTP in RUQ just below ribs, positive Carnett's sign. Diffuse tenderness throughout right upper and lower quadrants. No organomegaly, masses, rebound, guarding, ascites. EXT: No upper extremity cyanosis, clubbing. +2 radial pulses. No peripheral edema. PSYCH: mood appropriate, good eye contact, normal interaction Impression/Recommendations: Vianney Cordero is a 42 y.o. year old female with history of Rodgers's esophagus and hiatal hernia s/p Tyesha fundoplication who is here for 2 months of diarrhea and focal RUQ pain. FHx positive for son with Celiac disease and mother with colon cancer. There is no clear reason for onset of diarrhea, per her history it sounds like insidious onset, butshe is currently having only watery/loose stools with urgency for the past 2.5 months. Discussed ddx including infectious and inflammatory causes. She has not had workup so far. Will do stool studiesat local lab, including fecal calprotectin. Based on her symptoms I think IBD is less likely. Consider microscopic colitis given her NSAID and PPI use. We will defer on colonoscopy for now, but will consider as next step. Given that the diarrhea is often postprandial, consider carbohydrate malabsorption, Celiac disease or IBS-D, which her symptoms are consistent with. We will discuss low Fodmap diet and other measures at next visit. We discussed decreasing NSAIDs, sticking to tylenol. The RUQ pain has been ongoing for years. Per chart review an abdominal US done in 2014 showed mild hepatomegaly but no gallbladder pathology. I do not think the pain sounds biliary in nature. Positive Carnett's sign on exam today -- we discussed possible musculoskeletal etiology. We will check labstoday to evaluate LFTs. Deferred on CT today but will consider if labs show anemia or other abnormality. Labs: CBC, CMP, TTG IgA, IgA, CRP Stool studies Culture, giardia, cryptosporidium, c diff, calprotectin (will do locally at [facility]) PLAN (printed for patient): 1. Stool studies- submit loose stool sample at your local lab. Please let me know when and where you gave the samples so I can get the results 2. Labs today 3. Abdominal ultrasound 4. Follow up in 2 months. The patient was given my contact information and will call me with concerns or questions. Jena Severino PA-C Section of Gastroenterology [place] [address] documented in this encounter Plan of Treatment Upcoming Encounters Date Type Department Care Team (Late st Contact Info) Description 12/31/2024 10:00 AM EST Office [place] [phone] Mercy Amanda MD [facility] [address] [place] [address] 04/01/2025 2:00 PM EDT Office [place] [phone] Erum Szymanski MD [facility] [place] [address] documented as of this encounter Procedures Procedure Name Priority Date/Time Associated Diagnosis Comments CRP, ACUTE INFLAMMATION Routine 04/17/2018 11:13 AM EDT Diarrhea, unspecified type HEMOGRAM Routine 04/17/2018 11:13 AM EDT Diarrhea, unspecified type DIFFERENTIAL, AUTOMATED Routine 04/17/2018 11:13 AM EDT Diarrhea, unspecified type TISSUE TRANSGLUTAMINASE, IGA Routine 04/17/2018 11:13 AM EDT Diarrhea, unspecified type CBC (WITH DIFF) Routine 04/17/2018 11:13 AM EDT Diarrhea, unspecified type TSH Routine 04/17/2018 11:13 AM EDT Diarrhea, unspecified type IGA Routine 04/17/2018 11:13 AM EDT Diarrhea, unspecified type COMPREHENSIVE METABOLIC PANEL Routine 04/17/2018 11:13 AM EDT Diarrhea, unspecified type documented in this encounter Results * US Abdomen Limited (05/01/2018 9:56 AM EDT) Anatomical Region Laterality Modality Abdomen Ultrasound 05/01/2018 9:27 AM EDT Impressions 05/01/2018 10:10 AM EDT ??1. The liver is large and mildly increased in echogenicity diffusely suggestingsteatosis. There is a 5 mm cyst in the left lobe but no solid hepatic mass isseen.2. The gallbladder and biliary ductal system appear normal.3. Medullary nephrocalcinosis. ? Mina Cook MD Electronically Signed Final Report ?? 05/01/2018 10:10 am Narrative 05/01/2018 10:10 AM EDT Abdominal ? (Signed Final 05/01/2018 10:10 am) PATIENT INFO: ID #: ? [id number] ?: ??[birth year] (42 yrs) Name: ? VIANNEY NEVES ?Visit Date: 05/01/2018 09:27 am ? GABRIELLE PERFORMED BY: Performed By: ? Ankit Lockett RDMS Attending: ?Joey RIVAS, Mina Lara Referred By: ?KATHY Rae [facility] Location: ? [place] SERVICE(S) PROVIDED: ??UABDLIM - Abdominal Limited Survey Single ? 10800 ??Organ or Quadrant - [id number] INDICATIONS: ??worsening RUQ pain often postprandial. hx ??hepatomegaly on US 03/2016. ? liver or GB ??pathology, gallstones COMPARISON: US: 03/15/16 ------ LIVER: ------ Right Lobe Length: ?? 21.0 ?? cm Echogenicity/Echotexture: ?? Enlarged and fatty Comment: ?5mm simple cyst seen in the left lobe GALLBLADDER: Cholelithiasis: ?No stones visualized Wall Thickness: ?Normal wall thickness Focal Tenderness: ?Negative sonographic French's sign BILIARY TRACT: Intrahepatic Ducts: ?? Normal Extrahepatic Ducts: ?? Normal Common Duct Size: ? 4.0 ? mm --------- PANCREAS: --------- Head: ? Normal Tail: ? Poorly visualized due to overlying bowel Body: ? Normal RIGHT KIDNEY: Size (cm) ?L: ??11.6 Cortical Thickness: ?Normal Cortical Echogenicity: ?? Cortex normal but medulla increased Hydronephrosis: ?No sonographic evidence Comment: ?Medullary nephrocalcinosis ---- IVC: ---- Normal in caliber where visualized. Procedure Note Mina Cook MD - 05/01/2018 Abdominal (Signed Final 05/01/2018 10:10 am) PATIENT INFO: ID #: [id number] : [birth year] (42 yrs) Name: VIANNEY NEVES Visit Date: 05/01/2018 09:27 am CORDERO PERFORMED BY: Performed By: Ankit Lockett RDMS Attending: Mina Cook MD Referred By: KATHY SCHMIDT Location: [place] SERVICE(S) PROVIDED: UABDLIM - Abdominal Limited Survey Single 42996 Organ or Quadrant - [id number] INDICATIONS: worsening RUQ pain often postprandial. hx hepatomegaly on US 03/2016. ? liver or GB pathology, gallstones COMPARISON: US: 03/15/16 ------ LIVER: ------ Right Lobe Length: 21.0 cm Echogenicity/Echotexture: Enlarged and fatty Comment: 5mm simple cyst seen in the left lobe GALLBLADDER: Cholelithiasis: No stones visualized Wall Thickness: Normal wall thickness Focal Tenderness: Negative sonographic French's sign BILIARY TRACT: Intrahepatic Ducts: Normal Extrahepatic Ducts: Normal Common Duct Size: 4.0 mm --------- PANCREAS: --------- Head: Normal Tail: Poorly visualized due to overlying bowel Body: Normal RIGHT KIDNEY: Size (cm) L: 11.6 Cortical Thickness: Normal Cortical Echogenicity: Cortex normal but medulla increased Hydronephrosis: No sonographic evidence Comment: Medullary nephrocalcinosis ---- IVC: ---- Normal in caliber where visualized. IMPRESSION 1. The liver is large and mildly increased in echogenicity diffusely suggestingsteatosis. There is a 5 mm cyst in the left lobe but no solid hepatic mass isseen.2. The gallbladder and biliary ductal system appear normal.3. Medullary nephrocalcinosis. Mina Cook MD Electronically Signed Final Report 05/01/2018 10:10 am Kathy Schmidt MD IMG US GEN ORDERA BLES * Differential, Automated (04/17/2018 11:13 AM EDT) Neutrophil % 58.7 % [facility] Neutrophil Absolute 4.95 1.70 - 6.10 x10(3)/[facility] Lymph % 33.9 % [facility] Lymphocytes Abs 2.9 0.9 - 3.2 x10(3)/[facility] Monocyte % 5.2 % [facility] Monocyte Abs 0.4 0.3 - 0.9 x10(3)/[facility] Eos % 1.3 % [facility] Eosinophils Abs 0.1 0.0 - 0.4 x10(3)/[facility] Basophil % 0.4 % [facility] Baso Absolute 0.0 0.0 - 0.1 x10(3)/[facility] Immature Gran % 0.50 % [facility] Comment: Immature granulocytes(IG's)percentage and absolute count will include metamyelocytes, myelocytes, and promyelocytes. Blood smears from CBCs yielding IG's will be scanned manually for concordance. If this scan disagrees with the automated IG or if promyelocytes are noted, a manual differential will be performed. Immature Gran Absolute 0.04 0.00 - 0.04 x10(3)/[facility] Blood specimen (specimen) 04/17/2018 11:13 AM EDT 04/17/2018 11:20 AM EDT Narrative Resulting Agency Comment Spec In Lab Jena SABA HEMATOLOGY ORDERABLE S [facility] [place] [address] * Hemogram (04/17/2018 11:13 AM EDT) White Blood Cell 8.4 4.0 - 9.5 x10(3)/[facility] Red Blood Cell 4.32 4.00 - 5.21 x10(6)/[facility] Hemoglobin 13.1 11.7 - 15.5 gm/dL [facility] Hematocrit 37.9 35.7 - 45.8 % [facility] Mean Cell Volume 87.7 82.6 - 94.4 fL [facility] Mean Cell Hemoglobin 30.3 27.1 - 32.0 pg [facility] Mean Cell Hemoglobin Concentration 34.6 31.7 - 35.0 gm/dL [facility] Platelet 282 145 - 357 x10(3)/[facility] RDW Standard Deviation 39.2 37.0 - 46.0 fL [facility] RDW coefficient of variation 12.2 11.5 - 14.1 % [facility] Mean Platelet Volume 10.1 7.6 - 12.9 fL [facility] NRBC% auto 0.0 % [facility] NRBC Absolute 0.000 0.000 - 0.000 x10(3)/[facility] Blood specimen (specimen) 04/17/2018 11:13 AM EDT 04/17/2018 11:20 AM EDT Narrative Resulting Agency Comment Spec In Lab Jena SABA HEMATOLOGY ORDERABLE S Performing Organization Address [facility]/ZIP Co de Phone Number [facility] [place] [address] * (ABNORMAL) CRP, acute inflammation (04/17/2018 11:13 AM EDT) C-Reactive Protein 8.0(H) <=4.9 mg/L [facility] Blood specimen (specimen) 04/17/2018 11:13 AM EDT 04/17/2018 11:20 AM EDT Narrative Resulting Agency Comment Spec In Lab Kathy Schmidt MD CHEMISTRY ORDERAB LES [facility] [place] [address] * TSH (04/17/2018 11:13 AM EDT) Thyroid Stimulating Hormone 2.37 0.27 - 4.20 mlU/ML [facility] Blood specimen (specimen) 04/17/2018 11:13 AM EDT 04/17/2018 11:20 AM EDT Narrative Resulting Agency Comment Spec In Lab Kathy Schmidt MD CHEMISTRY ORDERAB LES Performing Organization Address City/[facility]/ZIP Co de Phone Number [facility] [place] [address] * IgA (04/17/2018 11:13 AM EDT) IgA 162 70 - 400 mg/dL [facility] Blood specimen (specimen) 04/17/2018 11:13 AM EDT 04/17/2018 11:20 AM EDT Narrative Resulting Agency Comment Spec In Lab Kathy Schmidt MD CHEMISTRY ORDERAB LES Performing Organization Address [facility] Co de Phone Number [facility] [place] [address] * Tissue transglutaminase, IgA (04/17/2018 11:13 AM EDT) Pathologist [facility] TTG IgA Ab <1.2 <4.0 (Negative) unit/mL [facility] Comment: Test Performed by: [facility] - [address] [address] Blood specimen (specimen) 04/17/2018 11:13 AM EDT 04/17/2018 12:30 PM EDT Narrative Resulting Agency Comment Spec In Lab Kathy Schmidt MD IMMUNOLOGY ORDERA BLES Performing Organization Address [facility] Co de Phone Number [facility] [place] [address] * (ABNORMAL) Comprehensive metabolic panel (non-fasting) (04/17/2018 11:13 AM EDT) Glucose 94 65 - 199 mg/dL [facility] Comment:Diabetes: >=200 mg/d L plus symptoms Blood Urea Nitrogen 13 8 - 18 mg/dL [facility] Creatinine 0.86 0.70 - 1.20 mg/dL [facility] Sodium 141 135 - 145 mmol/L [facility] Potassium 4.0 3.5 - 5.0 mmol/L [facility] Comment: Please note: ??Patients with WBC >100,000 may have falsely elevated Potassium levels. ??For accurate Potassium quantification in these patients send serum separator tube (gold top) for subsequent determinations. ??Contact the Clinical Chemistry Laboratory if there are any questions. Chloride 102 98 - 107 mmol/L [facility] Carbon Dioxide 23 22 - 31 mmol/L [facility] Anion Gap 16(H) 5 - 15 mmol/L [facility] Calcium 9.3 8.5 - 10.5 mg/dL [facility] Protein, Total 6.9 6.1 - 8.0 gm/dL [facility] Albumin 4.0 3.2 - 5.2 gm/dL [facility] Aspartate Aminotransferase 14 0 - 30 unit/L [facility] Alanine Aminotransferase 9 0 - 30 unit/L [facility] Alkaline Phosphatase 80 40 - 104 unit/L [facility] Bilirubin, Total 0.4 0.2 - 1.3 mg/dL [facility] Est Glomerular Filtration Rate 84 >=60 mL/min/1. 73 m?? [facility] Comment: The eGFR was calculated using the CKD-EPI equation. As with all creatinine based estimates of kidney function, eGFR values calculated with the CKD-EPI equation are not accurate in patients with acute kidney failure, extremes of body mass or the acutely ill. http://Voxy/CogniFitnkdep [email or web address] CHEYENNEnkf eGFR 97 >=60 mL/min/1. 73 m?? [facility] Comment: The eGFR was calculated using the CKD-EPI equation. As with all creatinine based estimates of kidney function, eGFR values calculated with the CKD-EPI equation are not accurate in patients with acute kidney failure, extremes of body mass or the acutely ill. http://Voxy/DHnkdep [email or web address]://Voxy/MCnkf Blood specimen (specimen) 04/17/2018 11:13 AM EDT 04/17/2018 11:20 AM EDT Narrative Resulting Agency Comment Spec In Lab Kathy Schmidt MD CHEMISTRY ORDERAB LES [facility] [place] [address] documented in this encounter Visit Diagnoses Diagnosis Diarrhea, unspecified type Upper abdominal pain Abdominal pain, other specified site Upper abdominal pain Abdominal pain, other specified site documented in this encounter Care Teams Drier Helper Relationship Specialty Start Date End Date Sonido Cordoba PA [address] [place] [address] PCP - General Family Medicine 11/16/15 06/22/20 documented as of this encounter
--- OUTSIDE RECORDS SUMMARY | 2024-10-16 17:42 | XMS_ITS | Encounter Summary ---
Author Organization [facility] [place] [address] Care Team Providers Care Cafeteria Server Name Role Phone Sonido Cordoba Primary Care Provider +1- [phone] Encounter Details Date Type Department Care Team (Late st Contact Info) Description 05/11/2016 Orders [place] [id number] Maureen Fox ORE DRESSING ENGINEER [facility] [place] [address] Social History Tobacco Use Types Packs/Day Years [...] AM [place] Office [place] [phone] Mercy Amanda MD [facility] [address] [facility] [address] 04/01/2025 2:00 PM EDT Office [place] [address] Erum Szymanski MD [facility] [place] [address] documented as of this encounter Procedures Procedure Name Priority Date/Time Associated Diagnosis Comments MEASLES (RUBEOLA) ANTIBODY, IGG Routine 05/11/2016 9:36 AM EDT VARICELLA ZOSTER ANTIBODY, IGG Routine 05/11/2016 9:36 AM EDT MUMPS ANTIBODY, IGG Routine 05/11/2016 9 :36 AM EDT documented in this encounter Results * Varicella zoster Antibody, IgG (05/11/2016 9:36 AM EDT) Varicella Zoster Antibody IgG Pos [facility] Blood specimen (specimen) Venous Draw / Unknown 05/11/2016 9:36 AM EDT 05/12/2016 7:52 AM EDT Narrative Resulting Agency Comment Spec In Lab Maureen Fox ORE DRESSING ENGINEER IMMUNOLOGY ORDERABLE S [facility] [place] [address] * (ABNORMAL) Mumps Antibody, IgG (05/11/2016 9:36 AM EDT) Mumps Antibody IgG Equivocal( A) Pos [facility] Blood specimen (specimen) Venous Draw / Unknown 05/11/2016 9:36 AM EDT 05/12/2016 7:52 AM EDT Narrative Resulting Agency Comment Spec In Lab Maureen Fox ORE DRESSING ENGINEER IMMUNOLOGY ORDERABLE S Performing Organization Address City/[facility]/ZIP Co de Phone Number [facility] [place] [address] * Measles (Rubeola) Antibody, IgG (05/11/2016 9:36 AM EDT) Rubeola Antibody IgG Pos Pos [facility] Comment:Expected Values: A N egative result indicates non-immunity. Blood specimen (specimen) Venous Draw / Unknown 05/11/2016 9:36 AM EDT 05/12/2016 7:52 AM EDT Narrative Resulting Agency Comment Spec In Lab Maureen Fox ORE DRESSING ENGINEER IMMUNOLOGY ORDERABLE S Performing Organization Address City/[facility] Co de Phone Number [facility] [place] [address] documented in this encounter Visit Diagnoses Not on filedocumented in this encounter Care Teams Cafeteria Server Relationship Specialty Start Date End Date Sonido Cordoba PA [address] [place] [address] PCP - General Family Medicine 11/16/15 06/22/20 documented as of this encounter
--- OUTSIDE RECORDS SUMMARY | 2024-10-16 17:42 | XMS_ITS | Encounter Summary ---
[place] [address] Care Team Providers Care Flux Plant Operator Name Role Phone Sonido Cordoba Primary Care Provider +1- [phone] Encounter Details Date Type Department Care Team (Late st Contact Info) Description 04/05/2016 Telephone [place] [address] Da Tafoya, RN Social History Tobacco Use Types Packs/Day [...] encounter Miscellaneous Notes * Telephone Encounter - Da Tafoya LPN - 04/05/2016 8:[address] Joss Marin, pt contacted with the results of her hip MRI and recommendation. Patient informed nursing that she would like to try the prescribed cream for a few days before proceeding with the nerve block that had been discussed. Dr, [place] informed. documented in this encounter Plan of Treatment Upcoming Encounters Date Type Department Care Team (Late st Contact Info) Description 12/31/2024 10:00 AM EST Office [place] [address] Mercy Amanda MD [facility] DR [facility] [place] [address] 04/01/2025 2:00 PM EDT Office [place] [phone] Erum Szymanski MD [facility] [place] [address] documented as of this encounter Visit Diagnoses Not on filedocumented in this encounter Care Teams Flux Plant Operator Relationship Specialty Start Date End Date Sonido Cordoba PA [address] [place] [address] PCP - General Family Medicine 11/16/15 06/22/20 documented as of this encounter
--- OUTSIDE RECORDS SUMMARY | 2024-10-16 17:42 | XMS_ITS | Encounter Summary ---
[place] [address] Care Team Providers Care Show Host/Hostess Name Role Phone Sonido Cordoba Primary Care Provider +1- [phone] Encounter Details Date Type Department Care Team (Late st Contact Info) Description 08/09/2016 Orders [place] [address] Lizbeth Sneed, RN Social History Tobacco Use Types Packs/Day [...] AM EST Office [place] [phone] Mercy Amanda MD [facility] DR [facility] [address] 04/01/2025 2:00 PM EDT Office Visit [place] [address] Erum Szymanski MD [facility] [place] [address] documented as of this encounter Visit Diagnoses Not on filedocumented in this encounter Care Teams Show Host/Hostess Relationship Specialty Start Date End Date Sonido Cordoba PA [address] [place] [address] PCP - General Family Medicine 11/16/15 06/22/20 documented as of this encounter
--- OUTSIDE RECORDS SUMMARY | 2024-10-16 17:42 | XMS_ITS | Encounter Summary ---
Author Organization [place] [address] Care Team Providers Care Wood Inspector Name Role Phone Sonido Cordoba Primary Care Provider +1- [phone] Encounter Details Date Type Department Care Team (Late st Contact Info) Description 05/11/2016 Orders [place] [phone] Maureen Fox TERRITORY SALES CONSULTANT [facility] [place] [address] Social History Tobacco Use Types Packs/Day Years [...] EST Office [place] [phone] Mercy Amanda MD [facility] DR SAL [facility] [address] 04/01/2025 2:00 PM EDT Office [place] [address] Erum Szymanski MD [facility] [place] [address] documented as of this encounter Procedures Procedure Name Priority Date/Time Associated Diagnosis Comments QUANTIFERON-TB GOLD Routine 05/11/2016 9 :36 AM EDT RUBELLA ANTIBODY, IGG Routine 05/11/2016 9:36 AM EDT HEPATITIS B SURFACE ANTIBODY Routine 05/11/2016 9:36 AM EDT documented in this encounter Results * Hepatitis B Surface Antibody (05/11/2016 9:36 AM EDT) Hepatitis B Surface Antibody Negative [facility] Comment: Expected Results: Vaccinated: Positive Unvaccinated: Negative Please note: A positive result for this assay is consistent with a concentration of anti-HBs antibodies >10mIU/ml, which indicates that anti-HBs antibodies have been detected at levels consistent with protective immunity against HBV infection. Blood specimen (specimen) Venous Draw / Unknown 05/11/2016 9:36 AM EDT 05/11/2016 9:43 AM EDT Narrative Resulting Agency Comment Spec In Lab Maureen Fox TERRITORY SALES CONSULTANT CHEMISTRY ORDERABLES [facility] [place] [address] * QuantiFERON-TB Gold (05/11/2016 9:36 AM EDT) Quantiferon-TB Gold Negative Negative [facility] Comment: Nil (IU/mL)=0.06 TB Ag minus Nil (IU/mL)=0.02 Mitogen minus Nil (IU/mL)=>10 M. tuberculosis (TB) infection NOT likely ?A negative specimen should have a TB Ag minus Nil value less than 0.35 IU/mL OR a TB Ag minus Nil greater than or equal to 0.35 IU/mL and in addition the TB Ag minus Nil value must be less than 25% of the Nil value. A negative specimen should have a Mitogen minus Nil value greater than or equal to 0.5 IU/mL. ?A negative QuantiFERON-TB Gold IT result does not preclude the possibility of M. tuberculosis infection or tuberculosis disease: false negative results can be due to stage of infection (e.g., specimen obtained prior to the development of cellular immune response), co-morbid conditions which affect immune function, or other individual immunological factors. ?The performance of the QuantiFERON-TB Gold IT test has not been extensively evaluated with specimens from the following groups of individuals: ?1. Individuals who have impaired or altered immune function such as those who have HIV infection or AIDS, those who have transplantation managed with immunosuppressive treatment or others who receive immunosuppressive drugs (e.g., corticosteroids, methotrexate, azathioprine, cancer chemotherapy), and those who have other clinical conditions: diabetes, silicosis, chronic renal failure, hematological disorders (e.g., leukemia and lymphomas), and other specific malignancies (e.g., carcinoma of the head or neck and lung). ?2. Individuals younger than age 17 years. ?3. women. Note: Diagnosing or excluding tuberculosis disease, and assessing the probability of LTBI, require a combination of epidemiological, historical, medical, and diagnostic findings that should be taken into account when interpreting QuantiFERON-TB Gold results. Reference (http://www.cdc.gov/nchstp/tb/) Blood specimen (specimen) Venous Draw / Unknown 05/11/2016 9:36 AM EDT 05/12/2016 8:14 AM EDT Narrative Resulting Agency Comment Spec In Lab Maureen Fox TERRITORY SALES CONSULTANT CHEMISTRY ORDERABLES Performing Organization Address City/State/[facility] Co de Phone Number [facility] [place] [address] * Rubella Antibody, IgG (05/11/2016 9:36 AM EDT) Rubella Antibody IgG Positive Positive [facility] Comment: Please note: ??A positive result for this assay indicates that antibody levels are >or= 10.0 IU/mL and is considered to be an indicator of positive immune status. Blood specimen (specimen) Venous Draw / Unknown 05/11/2016 9:36 AM EDT 05/11/2016 9:43 AM EDT Narrative Resulting Agency Comment Spec In Lab Maureen Fox TERRITORY SALES CONSULTANT CHEMISTRY ORDERABLES [facility] [place] [address] documented in this encounter Visit Diagnoses Not on filedocumented in this encounter Care Teams Wood Inspector Relationship Specialty Start Date End Date Sonido Cordoba PA [address] [place] [address] PCP - General Family Medicine 11/16/15 06/22/20 documented as of this encounter
--- OUTSIDE RECORDS SUMMARY | 2024-10-16 17:42 | XMS_ITS | Encounter Summary ---
Author Organization [facility] Address [facility] [place] [address] Care Team Providers Care Program Lead Name Role Phone Sonido Cordoba Primary Care Provider +1- [phone] Encounter Details Date Type Department Care Team (Latest Contact Info) Description 08/08/2016 10:30 AM EDT - 08/08/2016 11:59 PM EDT Hospital En[place] [address] Devan Nuñez Jr., MD [facility] [place] [address] Recurrent nephrolithiasis Discharge Disposition: Home Social History Tobacco Use [...] Sig Dispensed Refills Start Date End Date doxycycline monohydrate (MONODOX) 100 mg Capsule take 1 capsule by mouth twice a day 0 04/21/2016 09/04/2016 Ketamine (Bulk) 100 % Powd 5 %, [...] AM EST Office [place] [address] Mercy Amanda MD [facility] DR [place] [address] 04/01/2025 2:00 PM EDT Office [place] [address] Erum Szymanski MD [facility] [place] [address] documented as of this encounter Procedures Procedure Name Priority Date/Time Associated Diagnosis Comments US RETROPERITONEAL COMPLETE Routine 08/08/2016 11:02 AM EDT Recurrent nephrolithiasis documented in this encounter Results * US Retroperitoneal Complete (08/08/2016 11:02 AM EDT) Anatomical Region Laterality Modality Abdomen Ultrasound 08/08/2016 11:0 3 AM EDT Impressions 08/10/2016 8:26 AM EDT ??Ultrasound Dictation: Addtional history: ??Recurrent nephrolithiasis, ? stones 1. ??No stones or hydronephrosis. 2. 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 We feel the latter is more likely I have personally reviewed the image(s) and the residents interpretation and agree with the findings, Fatoumata Figueredo at 08/08/2016 12:23 PM ?Fatoumata Figueredo MD Electronically Signed Corrected Final Report ??08/21/2016 01:51 pm Narrative 08/10/2016 8:26 AM EDT Renal ?(Corrected Final 08/21/2016 01:51 ? pm) PATIENT INFO: ID #: ? [id number] ?: ??[birth year] (40 yrs) Name: ? VIANNEY NEVES ?Visit Date: 08/08/2016 11:03 am ? GABRIELLE PERFORMED BY: Performed By: ? Mejia Morelos RDMS Attending: ?Terell RIVAS, Fatoumata Boles Associate: ?Bryan RIVAS, Huber Luciano Referred By: ?DEVAN NUÑEZ MD SERVICE(S) PROVIDED: ??URETRO - Retroperitoneal Complete - [id number] ? [id number] INDICATIONS: ??? stones COMPARISON: Ultrasound: RENAL/BLADDER 01/01/15 RIGHT KIDNEY: Size (cm) ?L: ??11.5 Cortical Thickness: ?Cortical thinning Cortical Echogenicity: ?? Normal Hydronephrosis: ?No sonographic evidence Comment ? Increased echogencity of the medulla. Transverse : ? AP diameter of the renal pelvis measures 8.0 mm. LEFT KIDNEY: Size (cm) ?L: ??12.3 Cortical Thickness: ?Cortical thinning Cortical Echogenicity: ?? Normal Hydronephrosis: ?No sonographic evidence Comment ? Increased echogencity of the medulla. : ? Transverse AP diameter of the renal pelvis ? measures 8.0 mm. URINARY BLADDER: Pre-void (cm) ? L: ??3.1 ? AP: ??4.1 ? TV: ??4.6 Vol (ml): ?30.6 Comment ? Not distended, limited views. : Procedure Note Fatoumata Figueredo MD - 08/21/2016 Renal (Corrected Final 08/21/2016 01:51 pm) PATIENT INFO: ID #: [id number] : [birth year] (40 yrs) Name: VIANNEY NEVES Visit Date: 08/08/2016 11:03 am GABRIELLE PERFORMED BY: Performed By: Mejia Morelos RDMS Attending: Fatoumata Figueredo MD Associate: Huber Adams MD Referred By: DEVAN NUÑEZ MD SERVICE(S) PROVIDED: URETRO - Retroperitoneal Complete - [id number] INDICATIONS: ? stones COMPARISON: Ultrasound: RENAL/BLADDER 01/01/15 RIGHT KIDNEY: Size (cm) L: 11.5 Cortical Thickness: Cortical thinning Cortical Echogenicity: Normal Hydronephrosis: No sonographic evidence Comment Increased echogencity of the medulla. Transverse : AP diameter of the renal pelvis measures 8.0 mm. LEFT KIDNEY: Size (cm) L: 12.3 Cortical Thickness: Cortical thinning Cortical Echogenicity: Normal Hydronephrosis: No sonographic evidence Comment Increased echogencity of the medulla. : Transverse AP diameter of the renal pelvis measures 8.0 mm. URINARY BLADDER: Pre-void (cm) L: 3.1 AP: 4.1 TV: 4.6 Vol (ml): 30.6 Comment Not distended, limited views. : IMPRESSION Ultrasound Dictation: Addtional history: Recurrent nephrolithiasis, ? stones 1. No stones or hydronephrosis. 2. 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 We feel the latter is more likely I have personally reviewed the image(s) and the residents interpretation and agree with the findings, Fatoumata Figueredo at 08/08/2016 12:23 PM Fatoumata Figueredo MD Electronically Signed Corrected Final Report 08/21/2016 01:51 pm Devan Nuñez Jr., MD IMG US GEN ORDERAB LES documented in this encounter Visit Diagnoses Diagnosis Recurrent nephrolithiasis Calculus of kidney documented in this encounter Care Teams Program Lead Relationship Specialty Start Date End Date Sonido Cordoba PA [address] [place] [address] PCP - General Family Medicine 11/16/15 06/22/20 documented as of this encounter
--- OUTSIDE RECORDS SUMMARY | 2024-10-16 17:42 | XMS_ITS | Encounter Summary ---
Author Organization [facility] [place] [address] Care Team Providers Care Vehicle Insurance Agent Name Role Phone Sonido Cordoba Primary Care Provider +1- [phone] Encounter Details Date Type Department Care Team (Late st Contact Info) Description 03/24/2016 Orders [place] [address] Aisha Simpson Social History Tobacco Use Types Packs/Day Years [...] AM EST Office [place] [phone] Mercy Amanda MD [facility] DR SAL [facility] [address] 04/01/2025 2:00 PM EDT Office [place] [address] Erum Szymanski MD [facility] [place]STR[place] [address] documented as of this encounter Visit Diagnoses Not on filedocumented in this encounter Care Teams Vehicle Insurance Agent Relationship Specialty Start Date End Date Sonido Cordoba PA [address] [place] [address] PCP - General Family Medicine 11/16/15 06/22/20 documented as of this encounter
--- OUTSIDE RECORDS SUMMARY | 2024-10-16 17:42 | XMS_ITS | Encounter Summary ---
Author Organization [facility] [place] [address] Care Team Providers Care Drill Foreman Name Role Phone Sonido Cordoba Primary Care Provider +1- [phone] Reason for Visit * Reason Comments Pain Management * Consultation (Routine) - Closed Specialty Diagnoses / Procedures Referred By Aric madrigal Referred To Contact Pain Management Diagnoses Lumbar radiculopathy Sonido Cordoba PA [address] [place] [address] [facility] [address] [place] [id number] Referral ID Status Reason Start Date Expiration Date V isits Requested Visits Authorized [id number] Closed Consult, Test & Treat Connection Center PCP Updated and/or Approved 02/11/2016 02/10/2017 1 1 Encounter Details Date Type Department Care Team (Late st Contact Info) Description 03/24/2016 1:00 PM EDT Office [place] [address] Ángela Allen V, [facility] [place] [address] Bryan Grant MD [facility] [place] [address] Meralgia paraesthetica, left Social History Tobacco Use Types Packs/Day [...] Sign Reading Time Taken Comments Blood Pressure 124/68 03/24/2016 12:50 PM EDT Pulse 71 03/24/2016 12:50 PM EDT Temperature - - Respiratory Rate - - Oxygen Saturation 99% 03/24/2016 12:50 PM EDT Inhaled Oxygen Concentration - - Weight 97.5 kg (215 lb) 03/24/2016 12:50 PM EDT Height 160 cm (5' 3) 03/24/2016 12:50 PM EDT Body Mass Index 38.09 03/24/2016 12:50 PM EDT documented in this encounter Progress Notes * Ángela Allen V, - 03/24/2016 1:45 PM EDT I have seen the patient and reviewed the resident's above history and I agree with the details as written. The assessment and plan were formulated in discussion with me and I agree with them as documented. Pertinent History: This is a very pleasant 40-year-old female. The patient presents for initial evaluation. The patient complains of left anteriolateral thigh pain. This is been present for several months. There has been no known trauma. She has been through physical therapy without relief of this condition. She has also been through home exercises without relief. She has had an MRI of the lumbarspine. Pertinent Exam: Per the fellow. I did review her lumbar spine MRI images with her and her significant other. Her lumbar spine MRI was normal. She has a classic examination for left-sided meralgia paresthetica. Major issues addressed: Discussed the diagnosis of meralgia paresthetica. We discussed treatment options at length. The patient has been through physical therapy without relief. Plan: The patient does not want to proceed forward with a ultrasound-guided left lateral femoral cutaneous nerve block. She prefers to stay with conservative measures. We will try a compounded cream.I did strongly encourage weight loss as a means to decompress the lateral femoral cutaneous nerve area. I also recommended an MRI of the pelvis with and without contrast to determine if there is anything causing a peripheral nerve entrapment in this area. She understands and does consent. She will continue with her home exercises. She was prescribed a compounded cream. She will continue with homeexercises. She will let us know how she does and 1-2 months. ÁNGELA ALLEN DO, MPH Pest Controller Assistant of Anesthesiology and Medicine/[facility]ly [employer] [facility] [employer] [facility] Senior Net Engineer, Pain Medicine Fellowship ABPM&R - Subspecialty board certification in Pain Medicine * Bryan Grant MD - 03/24/2016 1:02 PM EDT PAIN CLINIC CONSULTATION Date of Consultation: March 24, 2016 I am seeing Ms. Saini at the request of Sonido Cordoba for my opinion and recommendations regarding left leg pain. Chief Complaint: Left leg pain HPI: Vianney Saini is a 40 y.o. female who approximately 1 year ago when she slipped on grease [employer] at [employer] and had to catch herself on the counter. Patient reported mild soreness after this incident, but has gradually worsened over the past year. She has been treated with gabapentin with little to no benefit. Pain begins at lateral thigh and radiates down to the knee. She describes pain as being burning, numbness, and tingling. Location: left leg Onset: see above Precipitating Event: see above Quality: burning, numbness and tingling. sharp Radiation: down left arm Severity: 4 out of 10 today Average: 9 / 10 Best: 4 / 10 Worst: 10 / 10 Alleviating Factors: Resting, laying down Aggravating factors: any pressure on the outer leg, bumping leg against anything. Standing, walking. Sleep: Occasionally interrupted because of sharp pains Mood: Frustration Function: Unable to walk dog on long distances. Medications tried thus far and % reduction in pain: Present: Gabapentin 600 mg at night. Recently added 100 mg in morning. Medication is sedating. Past: None PT: Last session Aug 2015 for 10 session. Mild improvement. Stretches, massage Injections: none Surgery: none Interventions: Massage: none TENS: Had at PT, not helpful Acupuncture: none Chiropractor: none PAST MEDICAL HISTORY: Past Medical History Diagnosis Date ??? PTSD (post-traumatic stress disorder) PAST SURGICAL HISTORY: Past Surgical History Procedure Laterality Date ??? Dilation and curettage of uterus 1994 ??? Tonsillectomy ??? Pro upper gi endoscopy, biopsy N/A 01/27/2015 EGD WITH BIOPSY performed by Brandt Barlow MD at [facility] ??? Pro lap, esophagogast fundoplasty N/A 04/05/2015 LAPAROSCOPIC TYESHA FUNDOPLASTY performed by Valentín Moura MD at [facility] OR ??? N/A 04/05/2015 MODIFIER, HIATAL HERNIA performed by Valentín Moura MD at [facility] OR ??? Pro percut remv kid stone, up to 2 cm Right 06/01/2015 NEPHROLITHOTOMY, ([facility]) PERCUTANEOUS performed by Darius Nuñez Jr., MD at [facility] OR ??? Pro percut dilatn renal tract Right 06/01/2015 PERCUTANEOUS INTRO GUIDE WIRE TO ACCESS RENAL PELVIS,AND OR URETER, W\DILATION performed by Darius Nuñez Jr., MD at [facility] OR ??? Pro cysto/uretero/pyeloscopy, dx Right 06/01/2015 CYSTOURETEROSCOPY, DIAGNOSTIC performed by Darius Nuñez Jr., MD at [facility] OR ??? Pro cystoscopy, insert ureteral stent Right 06/01/2015 CYSTO, STENT PLACEMENT performed by Darius Nuñez Jr., MD at [facility] OR ??? Pro upper gi endoscopy, biopsy N/A 02/28/2016 EGD WITH BIOPSY performed by Brandt Barlow MD at [facility] SOCIAL HISTORY: History Social History ??? Marital status: Spouse name: N/A ??? Number of children: N/A ??? Years of education: N/A Occupational History ??? Not on file. Social History Main Topics ??? Smoking status: Former Smoker Packs/day: 0.50 Years: 6.00 Types: Cigarettes Quit date: 01/25/1997 ??? Smokeless tobacco: Never Used ??? Alcohol use: No ??? Drug use: No ??? Sexual activity: Yes Partners: Male control/ protection: Surgical Other Topics Concern ??? Not on file Social History Narrative FAMILY HISTORY: Family History Problem Relation Age of Onset ??? Diabetes Mother ??? Diabetes Maternal Grandmother ??? Diabetes Maternal Grandfather ALLERGIES: Oxycodone MEDICATIONS: Outpatient Prescriptions Marked as Taking for the 03/24/16 encounter (Office Visit) with Federico Allen, DO Medication Sig Dispense Refill ??? gabapentin (NEURONTIN) 100 mg Capsule 0 ??? pantoprazole (PROTONIX) 40 mg Tablet, Delayed Release (E.C.) take 1 tablet by mouth once daily 0 ??? traZODone (DESYREL) 50 mg Tablet 0 ??? gabapentin (NEURONTIN) 300 mg Capsule Take 600 mg by mouth nightly. ROS: Constitutional Denies Fevers, Chills, loss of weight HEENT Denies new hearing problems, vision problems or dental problems. Cardiovascular Denies chest pain, palpitations, AL, hypertension, heart murmur. Respiratory Denies cough, SOB, wheezing, asthma. GI Denies N/V, Hepatits, yellow jaudice, liver problems. Stool incontinence Denies kidney problems, infections, blood in urine, or kidney stones, or urinary incontinence Musculoskeletal Denies other joint pains, see HPI. Neurologic Denies seizures, convulsions, stroke, shock, frequent headaches, dizziness or passing out, see HPI. Sleep is not disturbed. Psychiatric Denies depression, anxiety, stress orsuicidal ideation. Hematologic Denies prolonged bleeding, easy bruising, lymph gland swelling Dermatologic Denies rashes, or other skin problems PHYSICAL EXAM: Visit Vitals ??? BP 124/68 (BP Location (NBP): Right arm, Patient Position: Sitting, BP Cuff Sizes: Large Adult (32-43 cm)) ??? Pulse 71 ??? Ht 160 cm (5' 3) ??? Wt 97.5 kg (215 lb) ??? SpO2 99% ??? BMI 38.09 kg/m2 Constitutional AxOx3, NAD, well developed, well groomed, sitting comfortably in chair. Psychiatric Affect is congruent with mood. Goal directed thought process. Good eye contact. No painbehaviors, symptom magnification, or drug seeking behavior. Communicates clearly and answers questions appropriately. Eyes No scleral icterus, pupils midline/symmetric, EOM full, conjunctiva clear. ENT moist mucous membranes; tongue protrudes midline. Hearing grossly intact. Lungs Clear to auscultation bilaterally Cardiovascular Reg RR without murmur, Skin no rash, asymmetric hair loss, or shiny skin. Musckuloskeletal Full ROM neck, upper and lower extremities demonstrated. No effusion. Neuro Sensory: Light Touch discrimination in extremities shows decreased sensation over the distribution of the left lateral femoral cutaneous nerve from the lateral thigh down to the knee. Motor: Segment Muscle Action Right Left L2 Iliopsoas Hip flexion 5/5 5/5 L3 Quadriceps Knee extension 5/5 5/5 L4 Tibialis anterior Dorsiflexion 5/5 5/5 L5 Extensor hallucis Great toe extension 5/5 5/5 S1 Gastrocnemius Plantar flexion 5/5 5/5 Reflexes: Segment Tendon Right Left L3-4 Patella 2+ 2+ S1 Gastrocnemius 2+ 2+ Upper Avila N/A N/A Lower Babinski downgoing downgoing RADIOLOGIC DATA: MRI: 11/02/15: Normal MRI without evidence of disc herniation CONTROLLED SUBSTANCE PRESCRIPTION REPORTS: [place] Medication Report: no inconsistencies [place] Medication Report: no inconsistencies IMPRESSION: 1. Meralgia paraesthetica, left Patient has classic presentation of meralgia paraesthetica on the left side. She has a normal MRI of the lumbar spine. We are recommending an MRI of the pelvis to rule out any worrisome pathology in the pelvis that could result in compression of the femoral nerve system. We recommended compounded ointment which the patient will try. If ineffective or if not covered by her insurance, she will consider US nerve block of the left lateral femoral cutaneous nerve. We described the procedure in detail and answered her questions. Additionally, we recommended the patient gradually increase physical activity. Lastly, we advised the patient that her symptoms may spontaneously resolve with weight lossand avoidance of tight fitting clothes. PLAN: -Compounded ointment ordered today -Recommended weight loss and avoid wearing tight clothing -Recommended home exercise program to include gradual increased walking. -Patient will consider US guided injection of lateral femoral cutaneous nerve MEDICAL DECISION MAKING: Our impression and treatment recommendations were discussed in detail with Vianney Saini whoverbalized understanding and had no further questions. Discharge and follow-up instructions were provided and she response to the treatment plan will helpdetermine further our plan of care and future treatment recommendations. Bryan Grant MD Fellow, Pain Medicine documented in this encounter Plan of Treatment Upcoming Encounters Date Type Department Care Team (Late st Contact Info) Description 12/31/2024 10:00 AM EST Office [place] [address] Mercy Amanda MD [facility] [address] [facility] [address] 04/01/2025 2:00 PM EDT Office [place] [address] Erum Szymanski MD [facility] [place] [address] documented as of this encounter Visit Diagnoses Diagnosis Meralgia paraesthetica, left documented in this encounter Care Teams Drill Foreman Relationship Specialty Start Date End Date Sonido Cordoba PA [address] [place] [address] PCP - General Family Medicine 11/16/15 06/22/20 documented as of this encounter
--- OUTSIDE RECORDS SUMMARY | 2024-10-16 17:42 | XMS_ITS | Encounter Summary ---
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 [address] Discharge Disposition: Home Social History Tobacco Use [...] Sign Reading Time Taken Comments Blood Pressure 141/67 09/24/2017 10:00 AM EST Pulse 95 09/24/2017 9:25 AM EST Temperature - - Respiratory Rate 16 09/24/2017 10:00 AM EST Oxygen Saturation 95% 09/24/2017 10:00 AM EST Inhaled Oxygen Concentration - - [...] better as expected. Sunday-Sunday Same Day Endo [phone] [id number] Otherwise contact [phone] and ask to speak to the africana studies professor communications technologist Follow-up care is a harper part of [...] AM EST Office [place] [address] Mercy Amanda MD [facility] [address] 04/01/2025 2:00 PM EDT Office [place] [address] Erum Szymanski MD [facility] [place] [address] documented as of this encounter Procedures Procedure [...] Report (09/24/2017 9:34 AM EST) Final Diagnosis [id number] ? Location: 4T; EA08; A The signing [...] No dysplasia is seen. Electronically signed by: ??Leila RIVAS, Ayad Hector Verified: ??09/28/2017 ?Pathologist Performed at: ??-[facility] Dept. of Pathology, [place], [place] CLINICAL INFORMATION Specimen Submitted: A - [...] sing: (T2) ??sunita 09/28/2017 1:32 PM EST [facility] GI Biopsy 09/24/2017 9:34 AM EST 09/24/2017 9:34 AM EST GI Biopsy 09/24/2017 9:34 AM EST 09/24/2017 9:34 AM EST GI Biopsy 09/24/2017 9:34 AM EST 09/24/2017 9:34 AM EST GI Biopsy 09/24/2017 9:34 AM EST 09/24/2017 9:34 AM EST GI Biopsy 09/24/2017 9:34 AM EST 09/24/2017 9:34 AM EST Brandt Barlow MD PATHOLOGY/CYTOLOGY O ZHANNA Performing Organization Address [facility] Co de Phone Number [facility] [place] [address] * Specimen to Pathology (surgical or derm) (09/24/2017 9:34 AM EST) AP Specimen 09/24/2017 9:34 AM EST 09/24/2017 9:34 AM EST Narrative [facility] - 09/24/2017 9:34 AM EST Specimen requisition ordered. ??Separate Pathology report to follow Brandt Barlow MD PATHOLOGY/CYTOLOGY O RDFANTA Performing Organization Address [facility] Co de Phone Number [facility] [place] [address] * Specimen to Pathology (surgical or derm) (09/24/2017 9:34 AM EST) AP Specimen 09/24/2017 9:34 AM EST 09/24/2017 9:34 AM EST Narrative [facility] - 09/24/2017 9:34 AM EST Specimen requisition ordered. ??Separate Pathology report to follow Brandt Barlow MD PATHOLOGY/CYTOLOGY O ZHANNA Performing Organization Address City/[facility]/[place] [address] * Specimen to Pathology (surgical or derm) (09/24/2017 9:34 AM EST) AP Specimen 09/24/2017 9:34 AM EST 09/24/2017 9:34 AM EST Narrative [facility] - 09/24/2017 9:34 AM EST Specimen requisition ordered. ??Separate Pathology report to follow Brandt Barlow MD PATHOLOGY/CYTOLOGY O ZHANNA Performing Organization Address [facility]/[place] [address] * Specimen to Pathology (surgical or derm) (09/24/2017 9:34 AM EST) AP Specimen 09/24/2017 9:34 AM EST 09/24/2017 9:34 AM EST Narrative [facility] - 09/24/2017 9:34 AM EST Specimen requisition ordered. ??Separate Pathology report to follow Brandt Barlow MD PATHOLOGY/CYTOLOGY O ZHANNA Performing Organization Address City/[facility]/[place] [address] * Specimen to Pathology (surgical or derm) (09/24/2017 9:34 AM EST) AP Specimen 09/24/2017 9:34 AM EST 09/24/2017 9:34 AM EST Narrative [facility] - 09/24/2017 9:34 AM EST Specimen requisition ordered. ??Separate Pathology report to follow Brandt Barlow MD PATHOLOGY/CYTOLOGY O ZHANNA [facility] [place] [address] * UPPER GI ENDOSCOPY (09/24/2017 8:25 AM EST) UPPER GI ENDOSCOPY [facility] Endoscopy Procedure Date: 09/24/2017 8:25 AM ? Patient Name: Vianney Cordero ? Date of : 1975 ? Age: 41 ? Order #: [id number] ? Instrument Name: [id number] ? Procedure: ? Upper GI endoscopy Indications: ? Heartburn, Follow-up of esophageal ? 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 Brandt Barlow MD, Clovis Rizvi ? Richard, NIMCO, Perlita Rodgers, ? Architectural Technician Referring : ?WANDY Andrade Medicines: ? Midazolam [...] Procedure Code(s): ?? --- Professional --- ? 79207, Esophagogastroduod enoscopy, ? flexible, transoral; with biopsy, ? single or multiple CPT copyright 2016 [employer]. All rights reserved. The codes documented in this report are preliminary and upon paper bags sewing machine operator review may be revised to meet current [...] Action Action Date Dose Rate Site lactated Ringers infusion 100 mL/hr, Intravenous, CONTINUOUS, Starting on Sun09/24/17 at 0915, Until Sun09/24/17 at 1005, Endoscopy (Day of Procedure) New Bag 09/24/2017 8:52 AM EST 100 mL/hr 100 mL/hr documented in this [...] Until Sun09/24/17 at 1221, Intra-Operative (Intra-Procedure), Routine 09 (Given - Provid er: Clovis Ramos RN)0904 (Given - Provider: Clovis Ramos RN) fentaNYL 50 mcg/mL multi-dose injection (CANCELED) ONCE PRN, Starting on Sun09/24/17 at 0901, Until Sun09/24/17 at 1221, Intra-Operative (Intra-Procedure), Routine 09 (Given - Provid er: Clovis Ramos RN)0904 (Given - Provider: Clovis Ramos RN)0907 (Given - Provider: Clovis Ramos RN)0910 (Given - Provider: Clovis Ramos RN) midazolam (PF) (VERSED) 1 mg/mL multi-dose injection (CANCELED) ONCE PRN, Starting on Sun09/24/17 at 0901, Until Sun09/24/17 at 1221, Intra-Operative (Intra-Procedure), Routine 09 (Given - Provid er: Clovis Ramos RN)0904 (Given - Provider: Clovis Ramos RN)0907 (Given - Provider: Clovis Ramos RN)0910 (Given - Provider: Clovis Ramos RN)0915 (Given - Provider: Clovis Ramos RN)0922 (Given - Provider: Clovis Ramos RN) documented in this encounter Care Teams Metal Furniture Polisher Relationship Specialty Start Date End Date Sonido Cordoba PA [address] [place] [address] PCP - General Family Medicine 11/16/15 06/22/20 documented as of this encounter
--- OUTSIDE RECORDS SUMMARY | 2024-10-16 17:42 | XMS_ITS | Encounter Summary ---
[place] [address] Care Team Providers Care Configuration Management Analyst Name Role Phone Guero Cordoba Primary Care Provider +1- [phone] Encounter Details Date Type Department Care Team (Latest Contact Info) Description 03/15/2016 8:24 AM EDT - 03/15/2016 9:58 AM EDT Hospital Encounter [place] [address] Guero Cordoba PA [address] [place], [place] [id number] Right upper quadrant abdominal pain Discharge Disposition: Home Social History Tobacco [...] AM EST Office [place] [address] Mercy Amanda MD [facility] [address] [place] [address] 04/01/2025 2:00 PM EDT Office Visit [place] [address] Erum Szymanski MD [facility] [place] [address] documented as of this encounter Procedures Procedure Name Priority Date/Time Associated Diagnosis Comments US ABDOMEN LIMITED Routine 03/15/2016 9: 33 AM EDT Right upper quadrant abdominal pain documented in this encounter Results * US Abdomen Limited (03/15/2016 9:33 AM EDT) Anatomical Region Laterality Modality Abdomen Ultrasound 03/15/2016 9:29 AM EDT Impressions 03/15/2016 10:26 AM EDT Impression Abdomen Limited Summary 1. There is mild hepatomegaly. The liver parenchyma has a normal echotexture. ??No intra- hepatic or extra- hepatic bile duct dilation. 2. There is a 0.5cm hypoechoic liver lesion which likely represents a cyst and is unchanged from the prior exam. 3. There are no gallstones and the gallbladder wall appears normal. 4. There is medullary nephrocalcinosis. ??No hydronephrosis. the differential diagnosis includes: renal tubular acidosis, medullary nephrocalcinosis and any cause of hypercaluria. I ??viewed the images and agree with the above interpretation. ? Mina Cook MD Electronically Signed Final Report ?? 03/15/2016 10:25 am Narrative 03/15/2016 10:26 AM EDT Abdominal ?(Signed Final 03/15/2016 10:25 am) Patient Info ID #: ? [id number] ?: ??[birth year] (40 yrs) Name: ? EMIL Jeremie ? Visit Date: 03/15/2016 09:29 am ? SON Performed By Performed By: ? Chrystal Henao RDMS Attending: ?Joey RIVAS, Mina Lara Associate: ?Thiago RIVAS, Rah Maciel Referred By: ?GUERO CORDOBA MD Service(s) Provided ??UABDLIM - Abdominal Limited Survey Single ? [id number] ??Organ or Quadrant - [id number] Indications ??RUQ PAIN; EVALUATE FOR ??GALLBLADDER DISEASE Comparison US 08/31/2015; 01/27/2015 ----- Liver ----- Right Lobe Length: ?? 19.9 ?? cm Echogenicity/Echotexture: ?? Normal Comment: ?left lobe hypoechoic focus which measures 5 mm ? no lareger and .less well seen than on prior study ? of 01/27/15 and likely a small cyst Gallbladder Cholelithiasis: ?No stones visualized Wall Thickness: ?1.8 mm Focal Tenderness: ?Negative sonographic French's sign Biliary Tract Intrahepatic Ducts: ?? Normal Extrahepatic Ducts: ?? Normal Common Duct Size: ? 2.0 ? mm -------- Pancreas -------- Head: ? Normal Tail: ? Poorly visualized due to overlying bowel Body: ? Normal Right Kidney Size (cm) ?L: ??11.6 Cortical Thickness: ?Normal Cortical Echogenicity: ?? Abnormal - see below Hydronephrosis: ?No sonographic evidence Comment: ?Medullary nephrocalcinosis ----- Aorta ----- Comment: ?Normal in caliber where visualized. --- IVC --- Normal in caliber where visualized. Procedure Note Mina Cook MD - 03/15/2016 Abdominal (Signed Final 03/15/2016 10:25 am) Patient Info ID #: [id number] : [birth year] (40 yrs) Name: EMIL Chao Visit Date: 03/15/2016 09:29 am SON Performed By Performed By: Chrystal Henao RDMS Attending: Mina Cook MD Associate: Rah Das MD Referred By: GUERO CORDOBA MD Service(s) Provided UABDLIM - Abdominal Limited Survey Single 24356 Organ or Quadrant - [id number] Indications RUQ PAIN; EVALUATE FOR GALLBLADDER DISEASE Comparison US 08/31/2015; US 01/27/2015 ----- Liver ----- Right Lobe Length: 19.9 cm Echogenicity/Echotexture: Normal Comment: left lobe hypoechoic focus which measures 5 mm no getachew and .less well seen than on prior study of 01/27/15 and likely a small cyst Gallbladder Cholelithiasis: No stones visualized Wall Thickness: 1.8 mm Focal Tenderness: Negative sonographic French's sign Biliary Tract Intrahepatic Ducts: Normal Extrahepatic Ducts: Normal Common Duct Size: 2.0 mm -------- Pancreas -------- Head: Normal Tail: Poorly visualized due to overlying bowel Body: Normal Right Kidney Size (cm) L: 11.6 Cortical Thickness: Normal Cortical Echogenicity: Abnormal - see below Hydronephrosis: No sonographic evidence Comment: Medullary nephrocalcinosis ----- Aorta ----- Comment: Normal in caliber where visualized. --- IVC --- Normal in caliber where visualized. IMPRESSION Impression Abdomen Limited Summary 1. There is mild hepatomegaly. The liver parenchyma has a normal echotexture. No intra- hepatic or extra- hepatic bile duct dilation. 2. There is a 0.5cm hypoechoic liver lesion which likely represents a cyst and is unchanged from the prior exam. 3. There are no gallstones and the gallbladder wall appears normal. 4. There is medullary nephrocalcinosis. No hydronephrosis. the differential diagnosis includes: renal tubular acidosis, medullary nephrocalcinosis and any cause of hypercaluria. I viewed the images and agree with the above interpretation. Mina Cook MD Electronically Signed Final Report 03/15/2016 10:25 am Guero SABA IMG US GEN ORDERAB LES documented in this encounter Visit Diagnoses Diagnosis Right upper quadrant abdominal pain Abdominal pain, right upper quadrant documented in this encounter Care Teams Configuration Management Analyst Relationship Specialty Start Date End Date Guero Cordoba PA [address] [place] [address] PCP - General Family Medicine 11/16/15 06/22/20 documented as of this encounter
--- OUTSIDE RECORDS SUMMARY | 2024-10-16 17:42 | XMS_ITS | Encounter Summary ---
Author Organization [facility] Address [facility] [place] [address] Care Team Providers Care Medical Laboratory Technical Officer Name Role Phone Sonido Cordoba Primary Care Provider +1- [phone] Reason for Visit * Auth/Cert Specialty Diagnoses / Procedures Referred By Aric madrigal Referred To Contact Diagnoses 6 months for egd with barretts biopies from 02/28/16 Procedures PRO UPPER GI ENDOSCOPY, DIAGNOSTIC EGD, UPPER GI ENDOSCOPY Referral ID Status Reason Start Date Expiration Date Visits Re quested Visits Authorized [id number] 1 1 Encounter Details Date Type Department Care Team (Latest Contact Info) Description 09/04/2016 8:40 AM EDT - 09/04/2016 11:28 AM EDT Hospital Encounter [place] [address] Brandt Barlow MD [facility] [place] [address] Discharge Disposition: Home Social History Tobacco Use [...] Sign Reading Time Taken Comments Blood Pressure 152/84 09/04/2016 10:45 AM EDT Pulse 97 09/04/2016 10:45 AM EDT Temperature - - Respiratory Rate 12 09/04/2016 10:45 AM EDT Oxygen Saturation 98% 09/04/2016 10:45 AM EDT Inhaled Oxygen Concentration - - [...] better as expected. Sunday-Sunday Same Day Endo [phone]-8p Otherwise contact [phone] and ask to speak to the reworker enterprise application architect Follow-up care is a harper part of your treatment and safety. Be sure to make and go to all appointments, and call your doctor if you are having problems. Instructions have been reviewed and patient expresses understanding * Patient Instructions* Brandt aBrlow MD - 09/04/2016 10:48 AM EDT Please [...] AM EST Office [place] [address] Mercy Amanda MD [facility] DR [facility] [place] [address] 04/01/2025 2:00 PM EDT Office [place] [address] Erum Szymanski MD [facility] [place] [address] documented as of this encounter Procedures Procedure [...] for egd with barretts biopies from 02/28/16 UPPER GI ENDOSCOPY Routine 09/04/2016 10 :00 AM EDT documented in this encounter Results * Specimen to Pathology (surgical or derm) (09/04/2016 10:49 AM EDT) AP Specimen 09/04/2016 10:4 9 AM EDT 09/04/2016 10:49 AM EDT Narrative [facility] - 09/04/2016 10:49 AM EDT Specimen requisition ordered. ??Separate Pathology report to follow Brandt Barlow MD PATHOLOGY/[place] [address] * Specimen to Pathology (surgical or derm) (09/04/2016 10:49 AM EDT) AP Specimen 09/04/2016 10:4 9 AM EDT 09/04/2016 10:49 AM EDT Narrative [facility] - 09/04/2016 10:49 AM EDT Specimen requisition ordered. ??Separate Pathology report to follow Brandt Barlow MD PATHOLOGY/[place] [address] * Specimen to Pathology (surgical or derm) (09/04/2016 10:49 AM EDT) AP Specimen 09/04/2016 10:4 9 AM EDT 09/04/2016 10:49 AM EDT Narrative [facility] - 09/04/2016 10:49 AM EDT Specimen requisition ordered. ??Separate Pathology report to follow Brandt Barlow MD PATHOLOGY/CYTOLOGY O ZHANNA [facility] [place] [address] * Specimen to Pathology (surgical or derm) (09/04/2016 10:49 AM EDT) AP Specimen 09/04/2016 10:4 9 AM EDT 09/04/2016 10:49 AM EDT Narrative [facility] - 09/04/2016 10:49 AM EDT Specimen requisition ordered. ??Separate Pathology report to follow Brandt Barlow MD PATHOLOGY/CYTOLOGY O ZHANNA Performing Organization Address [facility] [place] [address] * Specimen to Pathology (surgical or derm) (09/04/2016 10:49 AM EDT) AP Specimen 09/04/2016 10:4 9 AM EDT 09/04/2016 10:49 AM EDT Narrative [facility] - 09/04/2016 10:49 AM EDT Specimen requisition ordered. ??Separate Pathology report to follow Brandt Barlow MD PATHOLOGY/CYTOLOGY Nan CHAO Performing Organization Address [facility] de Phone Number [facility] [place] [address] * Surgical Pathology Report (09/04/2016 10:48 AM EDT) Pathologist [facility] Final Diagnosis [id number] ?Location: 4T; 07; A The signing pathologist has (i) examined the relevant preparation(s) for the specimen(s) and (ii) rendered or confirmed the diagnosis(es). . 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 C - [...] sing: (T1) ??sns 09/06/2016 4:13 PM EDT [facility] GI Biopsy 09/04/2016 10:4 8 AM EDT 09/04/2016 10:48 AM EDT GI Biopsy 09/04/2016 10:4 8 AM EDT 09/04/2016 10:48 AM EDT GI Biopsy 09/04/2016 10:4 8 AM EDT 09/04/2016 10:48 AM EDT GI Biopsy 09/04/2016 10:4 8 AM EDT 09/04/2016 10:48 AM EDT GI Biopsy 09/04/2016 10:4 8 AM EDT 09/04/2016 10:48 AM EDT Brandt Barlow MD PATHOLOGY/[place] [address] * UPPER GI ENDOSCOPY (09/04/2016 10:00 AM EDT) Pathologist [facility] UPPER GI ENDOSCOPY [facility] Endoscopy Procedure Date: 09/04/2016 10:00 AM ? Patient Name: Vianney Cordero ? Date of : 1975 ? Age: 40 ? Order #: [id number] ? Instrument Name: [id number] ? Procedure: ? Upper GI endoscopy Indications: [...] Procedure Code(s): ?? --- Professional --- ? 04994, Esophagogastroduod enoscopy, ? flexible, transoral; with biopsy, ? single or multiple CPT copyright 2015 [employer]. All rights reserved. The codes documented in this report are preliminary and upon him coder review may be revised to meet current [...] Sun09/04/16 at 1331, Endoscopy (Day of Procedure) documented in this encounter Active and Recently Administered Medications Times are shown in EDT. Continuous Medication Order 09/02/2016 09/03/2016 09/04/2016 lactated ringers infusion 100 mL/hr, Intravenous, CONTINUOUS, Starting on Sun09/04/16 at 0945, Until Sun09/04/16 at 1331, Endoscopy (Day of Procedure) 0945 (Due) PRN Medication Order 09/02/2016 09/03/2016 09/04/2016 benzocaine (TOPEX) 20 % oral spray (CANCELED) ONCE PRN, Starting on 09/04/16 at 1019, [...] documented in this encounter Care Teams Medical Laboratory Technical Officer Relationship Specialty Start Date End Date Sonido Cordoba PA [address] [place] [address] PCP - General Family Medicine 11/16/15 06/22/20 documented as of this encounter
--- OUTSIDE RECORDS SUMMARY | 2024-10-16 17:42 | XMS_ITS | Encounter Summary ---
Author Organization [facility] Address [facility] [place] [address] Care Team Providers Care Canal Boat Operator Name Role Phone Sonido Cordoba Primary Care Provider +1- [phone] Encounter Details Date Type Department Care Team (Latest Contact Info) Description 09/11/2017 2:00 PM EST - 09/11/2017 11:59 PM [facility] Hospital Encounter [place] [address] Devan Nuñez Jr., MD [facility] [place] [address] Nephrolithiasis Discharge Disposition: Home Social History Tobacco [...] mg Tablet nightly as needed. 0 02/08/2016 gabapentin (NEURONTIN) 300 mg Capsule Take 200 mg by mouth nightly. 08/12/2020 documented as of this encounter Plan of Treatment Upcoming Encounters Date Type Department Care Team (Late st Contact Info) Description 12/31/2024 10:00 AM EST Office [place] [address] Mercy Amanda MD [facility] [address] [place] [address] 04/01/2025 2:00 PM EDT Office Visit [place] [address] Erum Szymanski MD [facility] [place] [address] documented as of this encounter Procedures Procedure Name Priority Date/Time Associated Diagnosis Comments US RETROPERITONEAL COMPLETE Routine 09/11/2017 2:38 PM EST Nephrolithiasis documented in this encounter Results [...] findings, Steph Reyes at 09/11/2017 5:24 PM ? Steph Rosas MD Electronically Signed Final Report ?? 09/11/2017 05:31 pm Narrative 09/11/2017 5:32 PM EST Renal ? (Signed Final 09/11/2017 05:31 pm) PATIENT INFO: ID #: ? [id number] ?: ??[birth year] (41 yrs) Name: ? VIANNEY NEVES ?Visit Date: 09/11/2017 02:38 pm ? GABRIELLE PERFORMED BY: Performed By: ? Mejia Morelos RDMS Attending: ?Rivas RIVAS, Steph Grimes Resident: ? Percy Gallagher MD Referred By: ?DEVAN NUÑEZ Location: ? [place] SERVICE(S) PROVIDED: ??URETRO - Retroperitoneal Complete - [id number] ? [id number] INDICATIONS: ??? stones RIGHT KIDNEY: Size (cm) [...] 09/11/2017 05:31 pm) PATIENT INFO: ID #: [id number] : [birth year] (41 yrs) Name: VIANNEY NEVES Visit Date: 09/11/2017 02:38 pm GABRIELLE PERFORMED BY: Performed By: Mejia Morelos RDMS Attending: Steph Reyes MD Resident: Percy Gallagher MD Referred By: DEVAN NUÑEZ JR Location: [place] SERVICE(S) PROVIDED: URETRO - Retroperitoneal Complete - [id number] INDICATIONS: ? stones RIGHT KIDNEY: Size (cm) [...] Steph Reyes at 09/11/2017 5:24 PM Steph Rosas MD Electronically Signed Final Report 09/11/2017 05:31 pm Devan Nuñez Jr., MD IMG US GEN ORDERAB LES documented in this encounter Visit Diagnoses Diagnosis Nephrolithiasis Calculus of kidney documented in this encounter Care Teams Canal Boat Operator Relationship Specialty Start Date End Date Sonido Cordoba PA [address] [place] [address] PCP - General Family Medicine 11/16/15 06/22/20 documented as of this encounter
--- OUTSIDE RECORDS SUMMARY | 2024-10-16 17:42 | XMS_ITS | Encounter Summary ---
Author Organization [facility] Address [facility] [place] [address] Care Team Providers Care Insurance Follow Up Representative Name Role Phone Sonido Cordoba Primary Care Provider +1- [phone] Encounter Details Date Type Department Care Team (Latest Contact Info) Description 05/01/2018 9:23 AM EDT - 05/01/2018 11:59 PM EDT Hospital En[place] [address] Kathy Carnes MD [facility] [place] [address] Upper abdominal pain Discharge Disposition: Home Social History [...] AM EST Office [place] [address] Mercy Amanda MD [facility] DR [facility] [address] 04/01/2025 2:00 PM EDT Office [place] [address] Erum Szymanski MD [facility] [place] [address] documented as of this encounter Procedures Procedure Name Priority Date/Time Associated Diagnosis Comments US ABDOMEN LIMITED Routine 05/01/2018 9: 56 AM EDT Upper abdominal pain documented in this encounter Results [...] 10:10 am) PATIENT INFO: ID #: ? [id number] ?: ??[birth year] (42 yrs) Name: ? EMIL NEVES ?Visit Date: 05/01/2018 09:27 am ? GABRIELLE PERFORMED BY: Performed By: ? Ankit Lockett RDMS Attending: ?Joey RIVAS, Mina Pressley. Referred By: ?KATHY JHADERWOOD Location: ? [place] SERVICE(S) PROVIDED: ??UABDLIM - Abdominal Limited Survey Single ? 77215 ??Organ or Quadrant - [id number] INDICATIONS: ??worsening RUQ pain often postprandial. hx [...] 05/01/2018 10:10 am) PATIENT INFO: ID #: [id number] : [birth year] (42 yrs) Name: EMIL NEVES Visit Date: 05/01/2018 09:27 am GABRIELLE PERFORMED BY: Performed By: Ankit Lockett RDMS Attending: Mina Cook MD Referred By: KATHY CARNES Location: [place] SERVICE(S) PROVIDED: UABDLIM - Abdominal Limited Survey Single 55135 Organ or Quadrant - [id number] INDICATIONS: worsening RUQ pain often postprandial. hx [...] Signed Final Report 05/01/2018 10:10 am Kathy Carnes MD IMG US GEN ORDERA BLES documented in this encounter Visit Diagnoses Diagnosis Upper abdominal pain Abdominal pain, other specified site documented in this encounter Care Teams Insurance Follow Up Representative Relationship Specialty Start Date End Date Sonido Cordoba PA [address] [place] [address] PCP - General Family Medicine 11/16/15 06/22/20 documented as of this encounter
--- OUTSIDE RECORDS SUMMARY | 2024-10-16 17:42 | XMS_ITS | Encounter Summary ---
Author Organization [facility] Address [facility] [place] [address] Care Team Providers Care Life Manager Name Role Phone Sonido Cordoba Primary Care Provider +1- [phone] Encounter Details Date Type Department Care Team (Latest Contact Info) Description 10/26/2017 9:17 AM EST - 10/26/2017 10:37 AM [facility] Hospital Encounter XRay at [address] [place] [address] Iris Andres MD [facility] ORTHOPAEDIC [place] [address] Chronic left shoulder pain Discharge Disposition: Home Social History Tobacco [...] AM EST Office [place] [address] Mercy Amanda MD [facility] DR [facility] [address] 04/01/2025 2:00 PM EDT Office [place] [address] Erum Szymanski MD [facility] [place] [address] documented as of this encounter Procedures Procedure Name Priority Date/Time Associated Diagnosis Comments XR SHOULDER LEFT Routine 10/26/2017 9:34 AM EST Chronic left shoulder pain documented in this encounter Results * XR Shoulder Left (Generic) (10/26/2017 9:34 AM EST) Anatomical Region Laterality Modality Shoulder Left Digital Radiogra phy Impressions 10/26/2017 11:13 AM EST Localized faint and mild calcific tendinopathy distal supraspinatus tendon Narrative 10/26/2017 11:13 AM EST EXAMINATION: XR SHOULDER LEFT (GENERIC) CLINICAL HISTORY: Left shoulder pain TECHNIQUE: 4 views of the left shoulder COMPARISON: None FINDINGS: No acute fracture or dislocation is seen at the left shoulder. The A/C joint and glenohumeral joint are normally aligned. There is very faint calcification above the greater tuberosity of the humerus consistent with faint calcific tendinopathy at the rotator cuff insertion. Procedure Note Derek Polanco MD - 10/26/2017 EXAMINATION: XR SHOULDER LEFT (GENERIC) CLINICAL HISTORY: Left shoulder pain TECHNIQUE: 4 views of the left shoulder COMPARISON: None FINDINGS: No acute fracture or dislocation is seen at the left shoulder. The A/Cjoint and glenohumeral joint are normally aligned. There is very faint calcificationabove the greater tuberosity of the humerus consistent with faint calcific tendinopathy at the rotator cuff insertion. IMPRESSION Localized faint and mild calcific tendinopathy distal supraspinatustendon 11:13 AM Iris Andres MD IMG DX ORDERABLES documented in this encounter Visit Diagnoses Diagnosis Chronic left shoulder pain Pain in joint, shoulder region documented in this encounter Care Teams Life Manager Relationship Specialty Start Date End Date Sonido Cordoba PA [address] [place] [address] PCP - General Family Medicine 11/16/15 06/22/20 documented as of this encounter
--- OUTSIDE RECORDS SUMMARY | 2024-10-16 17:42 | XMS_ITS | Encounter Summary ---
Author Organization [facility] Address [facility] [place] [address] Care Team Providers Care Interlocking Tower Operator Name Role Phone Sonido Cordoba Primary Care Provider +1- [phone] Reason for Visit * Auth/Cert Specialty Diagnoses / Procedures Referred By Aric t Referred To Contact Diagnoses 12 wk f/u from 01/27/15 Procedures EGD, UPPER GI ENDOSCOPY Referral ID Status Reason Start Date Expiration Date Visits Re quested Visits Authorized [id number] 1 1 Encounter Details Date Type Department Care Team (Late st Contact Info) Description 02/28/2016 9:00 AM EDT - 02/28/2016 9:30 AM EDT Surgery [place] [address] Brandt Barlow MD [facility] [place] [address] EGD WITH BIOPSY (WRVU 2.39) Social History [...] Sign Reading Time Taken Comments Blood Pressure 157/87 02/28/2016 9:25 AM EDT Pulse 110 02/28/2016 9:25 AM EDT Temperature - - Respiratory Rate 16 02/28/2016 9:25 AM EDT Oxygen Saturation 98% 02/28/2016 9:25 AM EDT Inhaled Oxygen Concentration - - Weight - - Height - - Body Mass Index - - documented in this encounter Discharge Instructions * Discharge Instructions* Berkley Madrigal RN - 02/28/2016 9:38 AM EDT UPPER GI ENDOSCOPY WHAT TO [...] better as expected. Sunday-Sunday Same Day Endo [phone]-[phone] Otherwise contact [phone] and ask to speak to the market basket maker credit resolution representative Follow-up care is a harper part of your treatment and safety. Be sure to make and go to all appointments, and call your doctor if you are having problems. Instructions have been reviewed and patient expresses understanding * Patient Instructions* Brandt Barlow MD - 02/28/2016 9:29 AM EDT Please see Recommendations in the [...] H&P Notes * Brandt Barlow MD - 02/28/2016 8:59 AM EDT See pcp notes; follow up to severe erosive esophagitis with large HH; s/p rosy; off meds. Asa 1; clear lungs; rrr; stable for egd; risks explained; consent signed. documented in this encounter Plan of Treatment Upcoming Encounters Date Type Department Care Team (Late st Contact Info) Description 12/31/2024 10:00 AM EST Office [place] [address] Meryc Amanda MD [facility] [address] 04/01/2025 2:00 PM EDT Office Visit [place] [address] Erum Szymanski MD [facility] [place] [address] documented as of this encounter Procedures Procedure Name Priority Date/Time Associated Diagnosis Comments SURGICAL PATHOLOGY REPORT Routine 02/28/2016 9:30 AM EDT SPECIMEN TO PATHOLOGY Routine 02/28/2016 9:30 AM EDT EGD WITH BIOPSY (WRVU 2.39) 02/28/2016 9:09 AM EDT Dyspepsia UPPER GI ENDOSCOPY Routine 02/28/2016 9: 00 AM EDT documented in this encounter Results * Surgical Pathology Report (02/28/2016 9:30 AM EDT) Final Diagnosis [id number] ? Location: ; 09; A The signing pathologist has (i) examined the relevant preparation(s) for the specimen(s) and (ii) rendered or confirmed the diagnosis(es). . 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 No dysplasia is seen. 02/28/16 AAY 04/26/16 Verified by: ? Leila RIVAS, Ayad Hector ?Pathologist ?(Electronic Signature) The attending pathologist whose signature appears on this report has reviewed all diagnostic slides and has edited the gross and/or microscopic portion of the report in rendering the final pathologic diagnosis. CLINICAL INFORMATION Specimen Submitted: A - Esophagus Clinical History: GERD Clinical Diagnosis: Random esophageal biopsies from 38-29 cm;? ??Barretts SPECIMEN PROCESSING A - Labeled/Fixativ e: Esophagus, formalin. Quantity/Size: Multiple, ranging from 0.2-0.3 cm. Tissue Description: Soft gray-pink tissue. Sections/Proces sing: (T1) ??mmk 02/29/2016 2:22 PM EDT [facility] GI Biopsy 02/28/2016 9:30 AM EDT 02/28/2016 9:30 AM EDT Brandt Barlow MD PATHOLOGY/CYTOLOGY O ZHANNA Performing Organization Address [facility] [place] [address] * Specimen to Pathology (surgical or derm) (02/28/2016 9:30 AM EDT) AP Specimen 02/28/2016 9:30 AM EDT 02/28/2016 9:30 AM EDT Narrative [facility] - 02/28/2016 9:30 AM EDT Specimen requisition ordered. ??Separate Pathology report to follow Brandt Barlow MD PATHOLOGY/CYTOLOGY O ZHANNA Performing Organization Address [facility] [place] [address] * UPPER GI ENDOSCOPY (02/28/2016 9:00 AM EDT) UPPER GI ENDOSCOPY [facility] Endoscopy Patient Name: Vianney Saini ? Procedure Date: 02/28/2016 9:00 AM ? Date of : 1975 ? Age: 40 ? Order #: [id number] ? Procedure: ? Upper GI endoscopy Indications: ? Heartburn, Follow-up of esophageal ? reflux; history of Grade C ? esophagitis; s/p Rosy ? fundoplication. Providers: ? Brandt Barlow MD, Shasta Maciel ? NIMCO Alfonso, Clovis Ramos RN Referring : ?WANDY Andrdae Medicines: ? Midazolam 4 mg IV, Fentanyl 175 ? micrograms IV, Diphenhydramine 50 mg ? [...] of the gastric folds was found at 38 cm from ? the incisors. ? Circumferential salmon-colored mucosa was present ? from 29 to 38 cm. The maximum longitudinal extent of ? these esophageal mucosal changes was 9 cm in length. ? Multiple random biopsies taken to rule out Barretts. ? Impression: ?- Normal examined duodenum. ? - Normal stomach. ? - Esophagogastric landmarks ? identified. ? - Erbacon-colored mucosa suspicious ? for long-segment Rodgers's esophagus. ? - Specimens collected. Recommendation: ?- Return to primary care physician as ? previously scheduled. ? - Results of biopsies will be ? available in 8-10 days and sent to ? patient and provider ? Procedure Code(s): ?? --- Professional --- ? 78887, Esophagogastroduod enoscopy, ? flexible, transoral; diagnostic, ? including collection of specimen(s) ? by brushing or washing, when ? performed (separate procedure) CPT copyright 2014 [employer]. All rights reserved. The codes documented in this report are preliminary and upon steam tender review may be revised to meet current compliance requirements. Attending Participation: ? I personally performed the entire procedure. ? Brandt Barlow MD 02/28/2016 9:44 AM This report has been signed electronically. Number of Addenda: 0 Note Initiated On: 02/28/2016 9:00 AM PROVATION 02/28/2016 9:00 AM EDT Unknown GENERAL SURGICAL ORD ERABLES PROVATION documented in this encounter Visit Diagnoses Diagnosis Dyspepsia Dyspepsia and other specified disorders of function of stomach documented in this encounter Administered Medications Inactive Administered Medications - up to 3 most recent administrations Medication Order MAR Action Action Date Dose Rate Site benzocaine (TOPEX) 20 % oral spray ONCE PRN, Starting on Sun02/28/16 at 0912, Until Sun02/28/16 at 1230, Intra-Operative (Intra-Procedure) Given 02/28/2016 9:12 AM EDT 3 each diphenhydrAMINE (BENADRYL) injection ONCE PRN, Starting on Sun02/28/16 at 0912, Until Sun02/28/16 at 1230, Intra-Operative (Intra-Procedure), Routine Given 02/28/2016 9:15 AM EDT 25 mg Right Arm Given 02/28/2016 9:12 AM EDT 25 mg Ri ght Arm fentaNYL 50 mcg/mL multi-dose injection ONCE PRN, Starting on Sun02/28/16 at 0912, Until Sun02/28/16 at 1230, Intra-Operative (Intra-Procedure), Routine Given 02/28/2016 9:23 AM EDT 25 mcg Right Arm Given 02/28/2016 9:19 AM EDT 50 mcg Ri ght Arm Given 02/28/2016 9:15 AM EDT 50 mcg Ri ght Arm midazolam (PF) (VERSED) 1 mg/mL multi-dose injection ONCE PRN, Starting on Sun02/28/16 at 0912, Until Sun02/28/16 at 1230, Intra-Operative (Intra-Procedure), Routine Given 02/28/2016 9:23 AM EDT 1 mg Given 02/28/2016 9:19 AM EDT 1 mg Given 02/28/2016 9:15 AM EDT 1 mg documented in this encounter Active and Recently Administered Medications Times are shown in EDT. PRN Medication Order 02/26/2016 02/27/2016 02/28/2016 benzocaine (TOPEX) 20 % oral spray (CANCELED) ONCE PRN, Starting on Sun02/28/16 at 0912, Until Sun02/28/16 at 1230, Intra-Operative (Intra-Procedure) 911 (Given - Provid er: Clovis Ramos RN) diphenhydrAMINE (BENADRYL) injection (CANCELED) ONCE PRN, Starting on Sun02/28/16 at 0912, Until Sun02/28/16 at 1230, Intra-Operative (Intra-Procedure), Routine 911 (Given - Provid er: Clovis Ramos RN)09 (Given - Provider: Clovis Ramos RN) fentaNYL 50 mcg/mL multi-dose injection (CANCELED) ONCE PRN, Starting on Sun02/28/16 at 0912, Until Sun02/28/16 at 1230, Intra-Operative (Intra-Procedure), Routine 911 (Given - Provid er: Clovis Ramos RN)09 (Given - Provider: Clovis Ramos RN)09 (Given - Provider: Clovis Ramos RN)09 (Given - Provider: Clovis Ramos RN) midazolam (PF) (VERSED) 1 mg/mL multi-dose injection (CANCELED) ONCE PRN, Starting on Sun02/28/16 at 0912, Until Sun02/28/16 at 1230, Intra-Operative (Intra-Procedure), Routine 911 (Given - Provid er: Clovis Ramos RN)09 (Given - Provider: Clovis Ramos RN)09 (Given - Provider: Clovis Ramos RN)09 (Given - Provider: Clovis Ramos RN) documented in this encounter Care Teams Interlocking Tower Operator Relationship Specialty Start Date End Date Sonido Cordoba PA [address] [place] [address] PCP - General Family Medicine 11/16/15 06/22/20 documented as of this encounter
--- OUTSIDE RECORDS SUMMARY | 2024-10-16 17:42 | XMS_ITS | Encounter Summary ---
[place] [address] Care Team Providers Care Cfo Name Role Phone Sonido Cordoba Primary Care Provider +1- [phone] Reason for Referral * Consultation (Routine) - Specialty Diagnoses / Procedures Referred By Contac t Referred To Contact Radiology Diagnoses Left shoulder pain, unspecified chronicity Tear of rotator cuff, unspecified laterality, unspecified tear extent Procedures MRI Shoulder wo Contrast Left (Generic) Gracy Ellis PA [facility] [place] [address] [place] [address] Referral ID Status Reason Start Date Expiration Date Visits Requested Visits Authorized [id number] Specialty Service Requested 10/30/2017 12/28/2017 2 2 Reason for Visit * Consultation (Routine) - Specialty Diagnoses / Procedures Referred By Contac t Referred To Contact Radiology Diagnoses Left shoulder pain, unspecified chronicity Tear of rotator cuff, unspecified laterality, unspecified tear extent Procedures MRI Shoulder wo Contrast Left (Generic) Gracy Ellis PA [facility] [place] [address] [place] [address] Referral ID Status Reason Start Date Expiration Date Visits Requested Visits Authorized [id number] Specialty Service Requested 10/30/2017 12/28/2017 2 2 Encounter Details Date Type Department Care Team (Latest Contact Info) Description 11/07/2017 4:14 PM EST - 11/07/2017 11:59 PM EST [place] [address] Bakari Robison MD [facility] [place] [address] Left shoulder pain, unspecified chronicity; Tear of rotator cuff, unspecified laterality, unspecified tear extent Discharge Disposition: Home Social History Tobacco Use [...] AM EST Office [place] [address] Mercy Amanda MD [facility] [address] 04/01/2025 2:00 PM EDT Office [place] [phone] Erum Szymanski MD [facility] [place] [address] documented as of this encounter Procedures Procedure Name Priority Date/Time Associated Diagnosis Comments MRI SHOULDER LEFT WO CONTRAST Routine 11/07/2017 5:31 PM EST Left shoulder pain, unspecified chronicity Tear of rotator cuff, unspecified laterality, unspecified tear extent documented in this encounter Results * MRI Shoulder wo [...] AM Bakari Robison MD IMG MRI ORDERABLES documented in this encounter Visit Diagnoses Diagnosis Left shoulder pain, unspecified chronicity Tear of rotator cuff, unspecified laterality, unspecified tear extent documented in this encounter Care Teams Cfo Relationship Specialty Start Date End Date Sonido Cordoba PA [address] [place] [address] PCP - General Family Medicine 11/16/15 06/22/20 documented as of this encounter
--- OUTSIDE RECORDS SUMMARY | 2024-10-16 17:42 | XMS_ITS | Encounter Summary ---
Author Organization [facility] [place] [address] Care Team Providers Care Associate Chemist Name Role Phone Sonido Cordoba Primary Care Provider +1- [phone] Encounter Details Date Type Department Care Team (Late st Contact Info) Description 11/15/2017 Telephone [place] [phone] Gracy Ellis PA [facility] [place] [address] Social History Tobacco Use Types Packs/Day Years [...] Miscellaneous Notes * Telephone Encounter - Gracy Ellis PA - 11/15/2017 12:34 PM EST I called and left a message on Silvana is mobile phone number asking for a return call regarding her MRI results. The MRI results are as follows: Evidence of frozen shoulder, no full-thickness tearing of the rotator cuff however there is articular surface fraying of both the supraspinatus and infraspinatus. In terms of treatment for this we could discuss conservative treatment to include physical therapy,anti-inflammatory medications. There is also the options of surgical treatment for the rotator cuffpathology. If you would like I could put in a referral for PT. WANDY Machado documented in this encounter Plan of Treatment Upcoming Encounters Date Type Department Care Team (Late st Contact Info) Description 12/31/2024 10:00 AM EST Office [place] [address] Mercy Amanda MD [facility] [address] 04/01/2025 2:00 PM EDT Office Visit [place] [address] Erum Szymanski MD [facility] [place] [address] documented as of this encounter Visit Diagnoses Not on filedocumented in this encounter Care Teams Associate Chemist Relationship Specialty Start Date End Date Sondio Cordoba PA [address] [place] [address] PCP - General Family Medicine 11/16/15 06/22/20 documented as of this encounter
--- OUTSIDE RECORDS SUMMARY | 2024-10-16 17:42 | XMS_ITS | Encounter Summary ---
Author Organization [facility] [address] Care Team Providers Care Employment Advisor Name Role Phone Sonido Cordoba Primary Care Provider +1- [phone] Encounter Details Date Type Department Care Team (Late st Contact Info) Description 11/15/2017 Telephone [place] [phone] Gracy Ellis PA [facility] [place] [address] Social History Tobacco Use Types Packs/Day Years [...] encounter Miscellaneous Notes * Telephone Encounter - Yoli Sprague LPN - 11/15/2017 3:24 PM EST Patient called back and I gave her the information Cyndee Langston provided. We talked briefly about what her thoughts were and she mentioned that she is not wanting to do PT because she has already done it and saw no improvement, she said she would be willing to try antiinflammatories but she can notuse ibprofen. She mentioned that she would consider surgery if Cyndee believed this was the next step and best treatment plan. documented in this encounter Plan of Treatment Upcoming Encounters Date Type Department Care Team (Late st Contact Info) Description 12/31/2024 10:00 AM EST Office [place] [address] Mercy Amanda MD [facility] [address] [facility] [address] 04/01/2025 2:00 PM EDT Office [place] [address] Erum Szymanski MD [facility] [place] [address] documented as of this encounter Visit Diagnoses Not on filedocumented in this encounter Care Teams Employment Advisor Relationship Specialty Start Date End Date Sonido Cordoba PA [address] [place] [address] PCP - General Family Medicine 11/16/15 06/22/20 documented as of this encounter
--- OUTSIDE RECORDS SUMMARY | 2024-10-16 17:42 | XMS_ITS | Encounter Summary ---
[place] [address] Care Team Providers Care Medical Claims Representative Name Role Phone Sonido Cordoba Primary Care Provider +1- [phone] Encounter Details Date Type Department Care Team (Late st Contact Info) Description 04/04/2016 Notes Only [place] [phone] Ángela Allen V [facility] [place] [address] Social History Tobacco Use Types Packs/Day Years [...] as of this encounter Progress Notes * Ángela Allen V, - 04/04/2016 3:17 PM EDT I reviewed the pelvis MRI performed on 03/31/16. This does not reveal a problem which would cause ofleft leg numbness and tingling. I still recommend a left lateral femoral cutaneous nerve block. Pain management nurse: Please inform the patient. Thanks! dvd ÁNGELA ALLEN DO, MPH Market Basket Maker of Anesthesiology and Medicine/[employer] [facility] Billet Assembler, Pain Medicine Fellowship ABPM&R - Subspecialty board certification in Pain Medicine documented in this encounter Plan of Treatment Upcoming Encounters Date Type Department Care Team (Late st Contact Info) Description 12/31/2024 10:00 AM EST Office [place] [address] Mercy Amanda MD [facility] DR [facility] [address] 04/01/2025 2:00 PM EDT Office [place] [address] Erum Szymanski MD [facility] [place] [address] documented as of this encounter Visit Diagnoses Not on filedocumented in this encounter Care Teams Medical Claims Representative Relationship Specialty Start Date End Date Sonido Cordoba PA [address] [place] [address] PCP - General Family Medicine 11/16/15 06/22/20 documented as of this encounter
--- OUTSIDE RECORDS SUMMARY | 2024-10-16 17:42 | XMS_ITS | Encounter Summary ---
Author Organization [facility] Address [facility] [place] [address] Care Team Providers Care Kiln Packer Name Role Phone Sonido Cordoba Primary Care Provider +1- [phone] Encounter Details Date Type Department Care Team (Latest Contact Info) Description 10/26/2017 10:38 AM EST - 10/26/2017 11:59 PM [facility] Hospital Encounter XRay at [address] [place] [address] Bakari Robison MD [facility] [place]ED[place] [address] Left ankle pain, unspecified chronicity Discharge Disposition: [...] AM EST Office [place] [address] Mercy Amanda MD [facility] [address] [facility] [address] 04/01/2025 2:00 PM EDT Office [place] [phone] Erum Szymanski MD [facility] [place] [address] documented as of this encounter Procedures Procedure Name Priority Date/Time Associated Diagnosis Comments XR ANKLE MIN 3 VIEWS LEFT Routine 10/26/2017 11:25 AM EST Left ankle pain, unspecified chronicity documented in this encounter Results * XR Ankle Min 3 views Left (Generic) (10/26/2017 11:25 AM EST) Anatomical Region Laterality Modality Ankle Left Digital Radiogra phy Impressions 10/26/2017 1:58 [...] chronicity documented in this encounter Care Teams Kiln Packer Relationship Specialty Start Date End Date Sonido Cordoba PA [address] [place] [address] PCP - General Family Medicine 11/16/15 06/22/20 documented as of this encounter
--- OUTSIDE RECORDS SUMMARY | 2024-10-16 17:43 | XMS_ITS | Encounter Summary ---
[place] [address] Care Team Providers Care Flower Planter Name Role Phone Latanya Wade MD Primary Care Provider Reason for Referral * Consultation (Routine) - Closed Specialty Diagnoses / Procedures Referred By Aric madrigal Referred To Contact Urology Diagnoses Calculus of right kidney Demi Gage [employer] [facility] [place] [address] [facility] [place] [address] Referral ID Status Reason Start Date Expiration Date V isits Requested Visits Authorized [id number] Closed Consult, Test & Treat 02/03/2015 02/03/2016 3 3 Encounter Details Date Type Department Care Team (Late st Contact Info) Description 02/03/2015 Telephone [place] [address] Demi Gage APRN [facility] [place] [address] Social History Tobacco Use Types Packs/Day Years Used Date Smoking Tobacco: Former Cigarettes 0.5 6 0 01/25/1991 - 01/25/1997 Alcohol Use Standard Drinks/Week Comments No 0 (1 standard drink = 0.6 oz pur e alcohol) Sex and Gender Information Value Date Recorded Sex Assigned at Not on file Gender Identity Female 08/09/2020 11:37 PM EDT Sexual Orientation Not on file documented as of this encounter Miscellaneous Notes * Telephone Encounter - Demi Gage APRN - 02/03/2015 5:39 PM EDT Returned Mrs Carcamo regarding abdominal US findings of R 1.8 cm renal calculus and medullary nephrocalcinosis. Recommend referral to metabolic stone clinic for consultation. She is amenable to this. KUB order and to be obtained prior to appt and she is aware. documented in this encounter Plan of Treatment Upcoming Encounters Date Type Department Care Team (Late st Contact Info) Description 12/31/2024 10:00 AM EST Office [place] [address] Mercy Amanda MD [facility] [address] [facility] [address] 04/01/2025 2:00 PM EDT Office [place] [address] Erum Szymanski MD [facility] [place] [address] Scheduled Referrals Name Type Priority Associated Diagnoses Orde r Schedule Referral to Urology Outpatient Referral Routine Calculus of right kidney Ordered: 02/03/2015 documented as of this encounter Visit Diagnoses Diagnosis Calculus of right kidney Calculus of kidney documented in this encounter Care Teams Flower Planter Relationship Specialty Start Date End Date Latanya Wade MD [facility] [address] [place] [address] [place] [address] PCP - General 08/27/13 11/01/15 documented as of this encounter
--- OUTSIDE RECORDS SUMMARY | 2024-10-16 17:43 | XMS_ITS | Encounter Summary ---
Author Organization [facility] [place] [address] Care Team Providers Care Dietary Tech Name Role Phone Sonido Cordoba Primary Care Provider +1- [phone] Encounter Details Date Type Department Care Team (Late st Contact Info) Description 12/14/2015 External Results [place] [address] Senait Becerra MD [facility] [place] [address] Social History Tobacco Use Types Packs/Day Years [...] AM EST Office [place] [phone] Mercy Amanda MD [facility] [address] 04/01/2025 2:00 PM EDT Office Visit [place] [address] Erum Szymanski MD [facility] [place] [address] documented as of this encounter Procedures Procedure Name Priority Date/Time Associated Diagnosis Comments EMG SCAN Routine 12/13/2015 documented in this encounter Results * Scan Doc: EMG (12/13/2015) Senait Becerra MD MEDIA MGR SCAN EXT ORDR/RSLT documented in this encounter Visit Diagnoses Not on filedocumented in this encounter Care Teams Dietary Tech Relationship Specialty Start Date End Date Sonido Cordoba PA [address] [place] [address] PCP - General Family Medicine 11/16/15 06/22/20 documented as of this encounter
--- OUTSIDE RECORDS SUMMARY | 2024-10-16 17:43 | XMS_ITS | Encounter Summary ---
[place] [address] Care Team Providers Care Gut Dropper Name Role Phone Latanya Wade MD Primary Care Provider [phone] Reason for Visit * Reason Comments Nephrolithiasis Encounter Details Date Type Department Care Team (Latest Contact Info) Description 08/31/2015 4:00 PM EDT [place] [address] Devan Nuñez Jr., MD [facility] [place] [address] Recurrent nephrolithiasis Social History Tobacco Use Types Packs/Day Years [...] Sign Reading Time Taken Comments Blood Pressure 119/48 08/31/2015 3:40 PM EDT Pulse 72 08/31/2015 3:40 PM EDT Temperature - - Respiratory Rate - - Oxygen Saturation 98% 08/31/2015 3:40 PM EDT Inhaled Oxygen Concentration - - Weight - - Height - - Body Mass Index - - documented in this encounter Progress Notes * Devan Nuñez Jr., MD - 08/31/2015 4:31 PM EDT HPI: Vianney Saiin returns for urologic follow up after undergoing right PCNL. This pleasant 39 y.o. female underwent right PCNL on 06/01/15. Intraoperative findings were notable for a large right renal pelvic stone. Postop imaging confirmed she had been rendered stone free. Shepresents today for planned stent removal. Stone analysis revealed mixed CaPhos/Caox. Given calcium phosphate component, we discussed metabolic evaluation. She will consider this, and we will revisit when she returns for follow up.She does note that she had previously ingested large amounts of TUMS due to her hiatal hernia, which may have contributed to her stone formation. She is no longer using TUMS. In the interval since her last visit, she has been well. She denies stone passage or hematuria. Shenotes sporadic episodes of low back pain. Review of Systems Constitution: Negative for fever. Musculoskeletal: Positive for back pain. Gastrointestinal: [...] is no rebound and no guarding. Genitourinary: No CVA tenderness to percussion bilaterally Neurological: [...] ultrasound from today. This reveals no evidenceof residual hydronephrosis, hydroureter, or stones. Note made of mild bilateral cortical thinning, as well as medullary echogenicity. Impression/Plan: Stone free without residual hydronephrosis s/p right PCNL.. We reviewed role of further metabolic evaluation and I offered/recommended 24h urine studies. She declines metabolic evaluation at this time. We reviewed follow up options. She wishes to proceed withrepeat renal ultrasound in 9 months, sooner if needed. documented in this encounter Plan of Treatment Upcoming Encounters Date Type Department Care Team (Late st Contact Info) Description 12/31/2024 10:00 AM EST [place] [address] Mercy Amanda MD [facility] DR [facility] [address] 04/01/2025 2:00 PM EDT Office [place] [phone] Erum Szymanski MD [facility] [place] [address] documented as of this encounter Results * [...] residents interpretation and agree with the findings, Fatomuata Figueredo at 08/08/2016 12:23 PM ?Fatoumata Figueredo MD Electronically Signed Corrected Final Report ??08/21/2016 01:51 pm Narrative 08/10/2016 8:26 AM EDT Renal ?(Corrected Final 08/21/2016 01:51 ? pm) PATIENT INFO: ID #: ? [id number] ?: ??[birth year] (40 yrs) Name: ? VIANNEY NEVES ?Visit Date: 08/08/2016 11:03 am ? GABRIELLE PERFORMED BY: Performed By: ? Mejia Morelos RDMS Attending: ?Terell RIVAS, Fatoumata Boles Associate: ?Bryan RIVAS, Huber Luciano Referred By: ?DEVAN NUÑEZ MD SERVICE(S) PROVIDED: ??URETRO - Retroperitoneal Complete - [id number] ? [id number] INDICATIONS: ??? stones COMPARISON: Ultrasound: RENAL/BLADDER 01/01/15 [...] 08/21/2016 01:51 pm) PATIENT INFO: ID #: [id number] : [birth year] (40 yrs) Name: VIANNEY NEVES Visit Date: 08/08/2016 11:03 am GABRIELLE PERFORMED BY: Performed By: Mejia Morelos RDMS Attending: Fatoumata Figueredo MD Associate: Huber Adams MD Referred By: DEVAN NUÑEZ MD SERVICE(S) PROVIDED: URETRO - Retroperitoneal Complete - [id number] INDICATIONS: ? stones COMPARISON: Ultrasound: RENAL/BLADDER 01/01/15 [...] Diagnoses Diagnosis Recurrent nephrolithiasis Calculus of kidney Recurrent nephrolithiasis Calculus of kidney documented in this encounter Care Teams Gut Dropper Relationship Specialty Start Date End Date Latanya Wade MD [facility] [address] [place] [address] [place] [address] PCP - General 08/27/13 11/01/15 documented as of this encounter
--- OUTSIDE RECORDS SUMMARY | 2024-10-16 17:43 | XMS_ITS | Encounter Summary ---
Author Organization [facility] Address [facility] [place] [address] Care Team Providers Care Herb Grower Name Role Phone Latanya Wade MD Primary Care Provider [phone] Encounter Details Date Type Department Care Team (Late st Contact Info) Description 06/28/2015 Orders Only [place] [phone] Iris Andres MD [facility] DR [place] [address] Pain in left shoulder Social History Tobacco Use Types Packs/Day Years [...] AM EST Office Visit [place] [phone] Mercy Amanda MD [facility] DR [facility] [address] 04/01/2025 2:00 PM EDT Office Visit Gastroenterology at [facility] [place] [address] Erum Szymanski MD [facility] [place] [address] documented as of this encounter Results * XR Shoulder (07/30/2015 2:31 PM EDT) Anatomical Region Laterality Modality Shoulder N/A Radiographic Joann ging 07/30/2015 2:31 PM EDT Impressions 07/30/2015 4:54 PM EDT IMPRESSION: Normal left shoulder. This report was reviewed by TYLER LOREDO MD at 07/30/2015 4:49 PM Film and interpretation reviewed by the attending Narrative 07/30/2015 4:54 PM EDT EXAMINATION: SHOULDER MINIMUM TWO VIEWS/LEFT CLINICAL HISTORY: LEFT SHOULDER PAIN TECHNIQUE: 4 views of the left shoulder COMPARISON: None FINDINGS: There is no fracture or dislocation. The joint spaces are maintained. No soft tissue swelling. The visible portion of the left lung is clear. Procedure Note Tyler Loredo MD - 07/30/2015 EXAMINATION: SHOULDER MINIMUM TWO VIEWS/LEFT CLINICAL HISTORY: LEFT SHOULDER PAIN TECHNIQUE: 4 views of the left shoulder COMPARISON: None FINDINGS: There is no fracture or dislocation. The joint spaces are maintained. Nosoft tissue swelling. The visible portion of the left lung is clear. IMPRESSION IMPRESSION: Normal left shoulder. This report was reviewed by TYLER LOREDO MD at 07/30/2015 4:49 PM Film and interpretation reviewed by the attending Iris Andres MD IMG DX ORDERABLES documented in this encounter Visit Diagnoses Diagnosis Pain in left shoulder Pain in joint, shoulder region Pain in left shoulder Pain in joint, shoulder region documented in this encounter Care Teams Herb Grower Relationship Specialty Start Date End Date Latanya Wade MD [facility] [address] [place] [address] [place] [address] PCP - General 08/27/13 11/01/15 documented as of this encounter
--- OUTSIDE RECORDS SUMMARY | 2024-10-16 17:43 | XMS_ITS | Encounter Summary ---
[place] [address] Care Team Providers Care Pinsetter Mechanic Automatic Name Role Phone Latanya Wade MD Primary Care Provider [phone] Encounter Details Date Type Department Care Team (Latest Contact Info) Description 02/23/2015 1:40 PM EDT Office [place] [phone] Valentín Moura MD [facility] [place] [address] Gastroesophageal reflux disease with esophagitis Discharge Disposition: Home Social History Tobacco Use [...] Sign Reading Time Taken Comments Blood Pressure 131/58 02/23/2015 1:42 PM EDT Pulse 77 02/23/2015 1:42 PM EDT Temperature - - Respiratory Rate 18 02/23/2015 1:42 PM EDT Oxygen Saturation 99% 02/23/2015 1:42 PM EDT Inhaled Oxygen Concentration - - Weight 94.2 kg (207 lb 11.2 oz) 02/23/2015 1:42 PM EDT Height 160 cm (5' 3) 02/23/2015 1:42 PM EDT Body Mass Index 36.79 02/23/2015 1:42 PM EDT documented in this encounter Progress Notes * Valentín Moura MD - 02/23/2015 2:19 PM EDT Vianney Carcamo is a 39-year-old female referred to me by Demi Gage and Dr. Brandt Barlow for evaluation of possible surgery for a large hiatal hernia and acid reflux. She states that she has had acid reflux for many years which has been poorly controlled on medical therapy although more recently she has been taking Protonix twice a day which has helped quite a bit. She has had an upper GI ends copy on January 27, 2015 which was consistent with a large hiatal hernia as well as LA grade D esophagitis. She had a followup to that endoscopy today with a barium swallow. This shows a large hiatal hernia with roughly one-third of the stomach above the diaphragm. My interpretation is that it appears to be a type 3 paraesophageal hernia. She has not had any prior abdominal surgery. As I see her today she complains of significant reflux, some occasional trouble swallowing but not a major component for her. Mostly it is the reflux that is improved on medical therapy but still remains quite symptomatic. I spent 45 minutes with her today, the entire time in [id number] conversation regarding the pathophysiology of gastroesophageal reflux disease as well as reviewing the results of her barium swallow. I think she would benefit from a hiatal hernia repair and Addie fundoplication. I mentioned risks of surgery to include a possibility of infection, possibility of bleeding requiring transfusion, a possible injury to the esophagus or stomach and a possibility of having to convert to the open surgery. Postop she is likely to experience a component of early satiety, dysphagia and bloating. The majority of symptoms decrease the further she gets out from surgery. Overall she seems to understand and would like to proceed. She does have a BMI of 37 [address] her on the low-fat preop diet for two weeks prior to the date of surgery in order to minimize the impact of fatty liver infiltration on exposure of the gastroesophageal junction. She seems comfortable with that plan. We will give her a date for surgery. documented in this encounter Plan of Treatment Upcoming Encounters Date Type Department Care Team (Late st Contact Info) Description 12/31/2024 10:00 AM EST Office [place] [address] Mercy Amanda MD [facility] [place] [address] 04/01/2025 2:00 PM EDT Office [place] [address] Erum Szymanski MD [facility] [place] [address] documented as of this encounter Visit Diagnoses Diagnosis Gastroesophageal reflux disease with esophagitis documented in this encounter Care Teams Pinsetter Mechanic Automatic Relationship Specialty Start Date End Date Latanya Wade MD [facility] [address] [place] [address] [place] [address] PCP - General 08/27/13 11/01/15 documented as of this encounter
--- OUTSIDE RECORDS SUMMARY | 2024-10-16 17:43 | XMS_ITS | Encounter Summary ---
Author Organization [facility] [place] [address] Care Team Providers Care Farm Equipment Mechanic Name Role Phone Unavailable Primary Care Provider Unavailabl e Reason for Referral * Diagnostic Test (Routine) - Closed Specialty Diagnoses / Procedures Referred By Contac t Referred To Contact Radiology Diagnoses Left lumbar radiculopathy Procedures MRI Lumbar Spine Without Contrast (GENERIC) [place] [address] [place] [address] Referral ID Status Reason Start Date Expiration Date V isits Requested Visits Authorized [id number] Closed Specialty Service Requested 10/22/2015 01/20/2016 1 1 Reason for Visit * Diagnostic Test (Routine) - Closed Specialty Diagnoses / Procedures Referred By Contac t Referred To Contact Radiology Diagnoses Left lumbar radiculopathy Procedures MRI Lumbar Spine Without Contrast (GENERIC) [place] [address] [place] [address] Referral ID Status Reason Start Date Expiration Date V isits Requested Visits Authorized [id number] Closed Specialty Service Requested 10/22/2015 01/20/2016 1 1 Encounter Details Date Type Department Care Team (Latest Contact Info) Description 11/02/2015 4:56 PM EST - 11/02/2015 11:59 PM EST Hospital Encounter MRI at [place] [phone] Sonido Cordoba PA [address] [place] [address] Left lumbar radiculopathy Discharge Disposition: Home Social History Tobacco Use [...] Sig Dispensed Refills Start Date End Date acetaminophen (TYLENOL) 325 mg Tablet Take 2 tablets by mouth every 4 hours as needed for Pain. 06/02/2015 12/13/2015 diphenhydrAMINE (BENADRYL) 50 mg/mL Solution Inject 0.5 mLs into the vein every 6 hours as needed for Itching. 10 mL 04/06/2015 12/13/2015 documented as of this encounter Plan of Treatment Upcoming Encounters Date Type Department Care Team (Late st Contact Info) Description 12/31/2024 10:00 AM EST Office [place] [phone] Mercy Amanda MD [facility] DR [facility] [address] 04/01/2025 2:00 PM EDT Office [place] [phone] Erum Szymanski MD [facility] [place] [address] documented as of this encounter Procedures Procedure Name Priority Date/Time Associated Diagnosis Comments MRI LUMBAR SPINE WITHOUT CONTRAST Routine 11/02/2015 5:38 PM EST Left lumbar radiculopathy documented in this encounter Results * MRI Lumbar Spine Without Contrast (GENERIC) (11/02/2015 5:38 PM EST) Anatomical Region Laterality Modality L-spine Magnetic Resonan ce Impressions 11/02/2015 5:46 PM EST IMPRESSION: Mild lumbar spine degenerative changes. Comment: The following findings are so common in people without low back pain that while we report there presence, they must be interpreted with caution and in context of the clinical situation (Reference- Danialk et al, Spine 2001). Findings: (Prevalence in patients without low back pain), disc degeneration (decreased T2 signal, height loss, bulge) (91%), disc T2-signal loss (83%), disc height loss (56%), disc bulge (64%), disc protrusion (32%), annular fissure (38%). Narrative 11/02/2015 5:46 PM EST EXAMINATION: MRI LUMBAR SPINE WITHOUT CONTRAST CLINICAL HISTORY: left hip xray 01/07/13 ok, Lspine xray 01/07/13 demonstrative of minimal degenerative change of lower thoracic spine @ T11-T12. Additionally, note is made of incidental calcification (1cm) overlying right kidney. Patient has failed PT and Prednisone (RXd 09/10/15) TECHNIQUE: MR of the lumbar spine performed without the use of intravenous contrast. COMPARISON: CT 05/04/2015 FINDINGS: The overall alignment of the lumbar spine is normal. There is no focal, aggressive appearing marrow lesion. The normal appearing conus terminates at the upper L2 level. Visualized retroperitoneal structures are unremarkable. Findings at specific levels: L1-L2: No central canal or foraminal stenosis. L2-L3: No central canal or foraminal narrowing. L3-L4: Normal disc height and signal. No central canal or foraminal narrowing. L4-L5: There are mild facet degenerative changes. No central canal or foraminal stenosis. L5-S1: There are mild facet degenerative changes. No central canal or foraminal stenosis. Procedure Note Larry Desai MD - 11/02/2015 EXAMINATION: MRI LUMBAR SPINE WITHOUT CONTRAST CLINICAL HISTORY: left hip xray 01/07/13 ok, Lspine xray 01/07/13demonstrative of minimal degenerative change of lower thoracic spine @ T11-T12.Additionally, note is made of incidental calcification (1cm) overlying right kidney.Patient has failed PT and Prednisone (RXd 09/10/15) TECHNIQUE: MR of the lumbar spine performed without the use ofintravenous contrast. COMPARISON: CT 05/04/2015 FINDINGS: The overall alignment of the lumbar spine is normal. There isno focal, aggressive appearing marrow lesion. The normal appearing conusterminates at the upper L2 level. Visualized retroperitoneal structures areunremarkable. Findings at specific levels: L1-L2: No central canal or foraminal stenosis. L2-L3: No central canal or foraminal narrowing. L3-L4: Normal disc height and signal. No central canal or foraminalnarrowing. L4-L5: There are mild facet degenerative changes. No central canal orforaminal stenosis. L5-S1: There are mild facet degenerative changes. No central canal orforaminal stenosis. IMPRESSION IMPRESSION: Mild lumbar spine degenerative changes. Comment: The following findings are so common in people without low backpain that while we report there presence, they must be interpreted with cautionand in context of the clinical situation (Reference- Alicia et al, [id number]). Findings: (Prevalence in patients without low back pain), discdegeneration (decreased T2 signal, height loss, bulge) (91%), disc T2-signal loss(83%), disc height loss (56%), disc bulge (64%), disc protrusion (32%), annularfissure (38%). Sonido BENSON MRI ORDERABLES documented in this encounter Visit Diagnoses Diagnosis Left lumbar radiculopathy Thoracic or lumbosacral neuritis or radiculitis, unspecified documented in this encounter
--- OUTSIDE RECORDS SUMMARY | 2024-10-16 17:43 | XMS_ITS | Encounter Summary ---
[place] [address] Care Team Providers Care Solar Sales Representative And Assessor Name Role Phone Latanya Wade MD Primary Care Provider [phone] Reason for Visit * Reason Onset Date Comments Medication Refill 02/23/2015 Encounter Details Date Type Department Care Team (Late st Contact Info) Description 02/23/2015 Refill [place] [phone] Melina Hobbs CMA GASTROENTEROLOGY DEPT Rodgers's esophagus with esophagitis Social History Tobacco Use Types [...] AM EST Office [place] [phone] Mercy Amanda MD [facility] DR [facility] [address] 04/01/2025 2:00 PM EDT Office [place] [address] Erum Szymanski MD [facility] [place] [address] documented as of this encounter Visit Diagnoses Diagnosis Rodgers's esophagus with esophagitis Rodgers's esophagus documented in this encounter Care Teams Solar Sales Representative And Assessor Relationship Specialty Start Date End Date Latanya Wade MD [facility] [address] [place] [address] [place] [address] PCP - General 08/27/13 11/01/15 documented as of this encounter
--- OUTSIDE RECORDS SUMMARY | 2024-10-16 17:43 | XMS_ITS | Encounter Summary ---
Author Organization [facility] [place] [address] Care Team Providers Care Gauntlet Pairer Name Role Phone Latanya Wade MD Primary Care Provider [phone] Encounter Details Date Type Department Care Team (Late st Contact Info) Description 02/03/2015 Telephone [place] [phone] Demi Gage, FOLDER AND NOTCHER [facility] [place] [address] Social History Tobacco Use Types Packs/Day Years [...] Encounter - Demi Gage APRN - 02/03/2015 9:56 AM EDT Attempted to contact patient regarding further management of US findings~renal stones but no answerand left a message with call back number. documented in this encounter Plan of Treatment Upcoming Encounters Date Type Department Care Team (Late st Contact Info) Description 12/31/2024 10:00 AM EST Office [place] [address] Mercy Amanda MD [facility] DR [facility] [address] 04/01/2025 2:00 PM EDT Office [place] [phone] Erum Szymanski MD [facility] [place] [address] documented as of this encounter Visit Diagnoses Not on filedocumented in this encounter Care Teams Gauntlet Pairer Relationship Specialty Start Date End Date Latanya Wade MD [facility] [address] [place] [address] [place] [address] PCP - General 08/27/13 11/01/15 documented as of this encounter
--- OUTSIDE RECORDS SUMMARY | 2024-10-16 17:43 | XMS_ITS | Encounter Summary ---
Author Organization [facility] [place] [address] Care Team Providers Care Knotter Name Role Phone Latanya Wade MD Primary Care Provider [phone] Reason for Visit * Reason Comments Nephrolithiasis Encounter Details Date Type Department Care Team (Latest Contact Info) Description 06/17/2015 1:20 PM EDT [place] [id number] Devan Nuñez Jr., MD [facility] [place] [address] Renal stones (Primary Dx) Discharge Disposition: Home Social History Tobacco Use [...] Reading Time Taken Comments Blood Pressure 142/84 06/17/2015 1:18 PM EDT Pulse 58 06/17/2015 1:18 PM EDT Temperature - - Respiratory Rate 18 06/17/2015 1:18 PM EDT Oxygen Saturation 98% 06/17/2015 1:18 PM EDT Inhaled Oxygen Concentration - - Weight 88.5 kg (195 lb) 06/17/2015 1:18 PM EDT Height 160 cm (5' 3) 06/17/2015 1:18 PM EDT Body Mass Index 34.54 06/17/2015 1:18 PM EDT documented in this encounter Patient Instructions * Patient Instructions* Cisco Leroy LPN - 06/17/2015 1:30 PM EDT Instructions following Cystoscopy Activity: As tolerated by your comfort level. Fluids: You should increase your water today. Avoid coffee, tea and cola. You do not need to qdurtn99 ounces of water today. Urination: You will likely have a small amount of blood in your urine for the next several days. This is normal; however, if you are passing large amounts of blood clots or are unable to void please call our office at [phone] before 5PM or [phone] after hours. Please call if: * you have copious blood in your urine * fevers greater than 101.3 F * you are unable to void The number for questions is [phone] before 5 PM weekdays and [phone] after 5 PM and weekends. Follow-up: With Dr Nuñez 6 to 8 weeks. documented in this encounter Procedure Notes * Devan Nuñez Jr., MD - 06/17/2015 2:53 PM EDTAssociated Order(s): CYSTO, STENT REMOVAL Pre-Procedure Diagnose(s): Renal stones Vianney Saini returns for right ureteral stent removal after undergoing right PCNL. This pleasant 39 [...] formation. She is no longer using TUMS. PMHx: nephrolithiasis PSHx: D&C; tonsillectomy; right SWL; paraesophageal hernia repair; right PCNL FamHx: cousin with family h/o urolithiasis SocHx: no tobacco; no EtOH Stone Analysis: 50% Calcium phosphate (apatite); 20% Calcium oxalate monohydrate; 20% Calcium oxalate dihydrate; 10% Calcium carbonate We discussed the procedure, risks and planned benefit. We discussed the need to remove the stent asthey cannot stay in indefinitely, as well as the risk of possible need for stent or nephrostomy replacement if there was any residual or future ureteral obstruction. Informed consent was obtained. Vianney Saini was taken to the cystoscopy room and prepped and draped by our urology nurse. Prophylactic antibiotic administration was confirmed. Topical viscous lidocaine gel was applied to theurethra for local anesthetic. A timeout was performed. Flexible cystoscopy was performed. The urethra was without abnormality. The bladder was entered and inspected. No focal mucosal abnormality was seen. The stent was seen emanating from the right ureteral orifice. It was grasped and extracted. Itwas inspected and found to be intact. She tolerated the procedure well. I instructed Vianney Saini of the need to return in approximately 6 weeks for renal ultrasoundto ensure that there is no residual hydronephrosis. I cautioned her to contact us immediately with increasing pain, fever, or chills as this could suggest obstruction and may need to be further evaluated on an urgent or emergent basis. I have asked her to call with any additional questions. documented in this encounter Plan of Treatment Upcoming Encounters Date Type Department Care Team (Late st Contact Info) Description 12/31/2024 10:00 AM EST [place] [address] Mercy Amanda MD [facility] DR [address] [facility] [address] 04/01/2025 2:00 PM EDT Office Visit Gastroenterology at [facility] [place] [address] Erum Szymanski MD [facility] [place] [address] Scheduled Orders Name Type Priority Associated Diagnoses Orde r Schedule Cystoscopy PROCEDURE Routine Renal stones Ordered: 06/17/2015 documented as of this encounter Procedures Procedure Name Priority Date/Time Associated Diagnosis Comments CYSTO, STENT REMOVAL Routine 06/17/2015 3:20 PM EDT Renal stones documented in this encounter Results * US retroperitoneal complete (08/31/2015 3:09 PM EDT) Anatomical Region Laterality Modality Abdomen Ultrasound 08/31/2015 3:07 PM EDT Impressions 08/31/2015 3:22 PM EDT Impression Ultrasound - ??Retroperitoneal Complete - Summary 1. ??Bilateral renal cortical thinning. ?? No hydronephrosis. 2. 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 No ??definite calcinosis on today's exam. 3. ??Normal contour to the bladder. ??No bladder calculi identified. I ??viewed the images and agree with the above interpretation. ?Shirleyse Jeremie Eller MD Electronically Signed Final Report ?? 08/31/2015 03:22 pm Narrative 08/31/2015 3:22 PM EDT Renal ?(Signed Final 08/31/2015 03:22 pm) Patient Info ID #: ? [id number] ?Benjamin: ??[birth year] (39 yrs) Name: ? VIANNEY Chao ? Visit Date: 08/31/2015 03:07 pm ? SON Performed By Performed By: ? Artie YAÑEZ, Dorota Attending: ?Rafita RIVAS, Shirley Chao. Associate: ?Son RIVAS, Nohemi Referred By: ?DEVAN NUÑEZ MD Service(s) Provided ??URETRO - Retroperitoneal Complete - [id number] ? [id number] Indications ??kidney stones, ? medullary Comparison CT 05/04/15, prior US Right Kidney Size (cm) ?L: ??11.4 Cortical Thickness: ?Cortical thinning Cortical Echogenicity: ?? Normal Hydronephrosis: ?No sonographic evidence Comment: ?Increased echogenicity of medulla, ? medullary ? sponge kidneys Left Kidney Size (cm) ?L: ??12.6 Cortical Thickness: ?Cortical thinning Cortical Echogenicity: ?? Normal Hydronephrosis: ?No sonographic evidence Comment: ?Increased medullary echogenicity Urinary Bladder Pre-void (cm) ? L: ??5.2 ? AP: ??6.5 ? TV: ??6.3 Vol (ml): ?111.5 Comment: ?Partially distended, normal contour Procedure Note Shirley Eller MD - 08/31/2015 Renal (Signed Final 08/31/2015 03:22 pm) Patient Info ID #: [id number] : [birth year] (39 yrs) Name: VIANNEY Chao Visit Date: 08/31/2015 03:07 pm SON Performed By Performed By: Dorota Alva RDMS Attending: Shirley Eller MD Associate: Nohemi Cline MD Referred By: DEVAN NUÑEZ MD Service(s) Provided URETRO - Retroperitoneal Complete - [id number] Indications kidney stones, ? medullary Comparison CT 05/04/15, prior US Right Kidney Size (cm) L: 11.4 Cortical Thickness: Cortical thinning Cortical Echogenicity: Normal Hydronephrosis: No sonographic evidence Comment: Increased echogenicity of medulla, ? medullary sponge kidneys Left Kidney Size (cm) L: 12.6 Cortical Thickness: Cortical thinning Cortical Echogenicity: Normal Hydronephrosis: No sonographic evidence Comment: Increased medullary echogenicity Urinary Bladder Pre-void (cm) L: 5.2 AP: 6.5 TV: 6.3 Vol (ml): 111.5 Comment: Partially distended, normal contour IMPRESSION Impression Ultrasound - Retroperitoneal Complete - Summary 1. Bilateral renal cortical thinning. No hydronephrosis. 2. 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 No definite calcinosis on today's exam. 3. Normal contour to the bladder. No bladder calculi identified. I viewed the images and agree with the above interpretation. Shirley Eller MD Electronically Signed Final Report 08/31/2015 03:22 pm Devan Nuñez Jr., MD IMG US GEN ORDERAB LES * Cysto, Stent Removal, clinic (06/17/2015 3:20 PM EDT) Narrative Devan Nuñez Jr., MD - 06/17/2015 3:20 PM EDT Devan Nuñez Jr., MD ? 06/17/2015 ??3:20 PM Vianney Saini returns for right ureteral stent removal after undergoing right PCNL. This pleasant ??39 y.o. ??female underwent right PCNL on 06/01/15. ?? Intraoperative findings were notable for a large right renal pelvic stone. Postop imaging confirmed she had been rendered stone free. ??She presents today for planned stent removal. Stone analysis revealed mixed CaPhos/Caox. ??Given calcium phosphate component, we discussed metabolic evaluation. ??She will consider this, and we will revisit when she returns for follow up.She does note that she had previously ingested large amounts of TUMS due to her hiatal hernia, which may have contributed to her stone formation. She is no longer using TUMS. PMHx: nephrolithiasis PSHx: D&C; tonsillectomy; right SWL; paraesophageal hernia repair; right PCNL FamHx: cousin with family h/o urolithiasis SocHx: no tobacco; no EtOH Stone Analysis: ??50% Calcium phosphate (apatite); 20% Calcium oxalate monohydrate; 20% Calcium oxalate dihydrate; 10% Calcium carbonate We discussed the procedure, risks and planned benefit. We discussed the need to remove the stent as they cannot stay in indefinitely, as well as the risk of possible need for stent or nephrostomy replacement if there was any residual or future ureteral obstruction. Informed consent was obtained. Vianney Saini was taken to the cystoscopy room and prepped and draped by our urology nurse. ??Prophylactic antibiotic administration was confirmed. ??Topical viscous lidocaine gel was applied to the urethra for local anesthetic. A timeout was performed. ??Flexible cystoscopy was performed. ??The urethra was without abnormality. ??The bladder was entered and inspected. ??No focal mucosal abnormality was seen. ??The stent was seen emanating from the right ureteral orifice. ??It was grasped and extracted. ?? It was inspected and found to be intact. ??She tolerated the procedure well. ?? I instructed ??Vianney Saini ??of the need to return in approximately 6 weeks for renal ultrasound to ensure that there is no residual hydronephrosis. ??I cautioned her to contact us immediately with increasing pain, fever, or chills as this could suggest obstruction and may need to be further evaluated on an urgent or emergent basis. ??I have asked her to call with any additional questions. Devan Nuñez Jr., MD URO PROCEDURE W RF L ORDERABLES documented in this encounter Visit Diagnoses Diagnosis Renal stones- Primary Calculus of kidney Renal stones Calculus of kidney documented in this encounter Care Teams Knotter Relationship Specialty Start Date End Date Latanya Wade MD [facility] [address] [place] [address] [place] [address] PCP - General 08/27/13 11/01/15 documented as of this encounter
--- OUTSIDE RECORDS SUMMARY | 2024-10-16 17:43 | XMS_ITS | Encounter Summary ---
Author Organization [facility] Address [facility] [place] [address] Care Team Providers Care Film Library Clerk Name Role Phone Latanya Wade MD Primary Care Provider [phone] Encounter Details Date Type Department Care Team (Latest Contact Info) Description 08/31/2015 2:53 PM EDT - 08/31/2015 11:59 PM EDT Hospital Encounter [place] [address] Devan Nuñez Jr., MD [facility] [place] [address] Renal stones Discharge Disposition: Home Social History Tobacco Use [...] AM EST Office [place] [address] Mercy Amanda MD [facility] DR [facility] [address] 04/01/2025 2:00 PM EDT Office Visit [place] [phone] Erum Szymanski MD [facility] [place] [address] documented as of this encounter Procedures Procedure Name Priority Date/Time Associated Diagnosis Comments US RETROPERITONEAL COMPLETE Routine 08/31/2015 3:09 PM EDT Renal stones documented in this [...] images and agree with the above interpretation. ?Shirley Eller MD Electronically Signed Final Report ?? 08/31/2015 03:22 pm Narrative 08/31/2015 3:22 PM EDT Renal ?(Signed Final 08/31/2015 03:22 pm) Patient Info ID #: ? [id number] ?: ??[birth year] (39 yrs) Name: ? VIANNEY Chao ? Visit Date: 08/31/2015 03:07 pm ? SON Performed By Performed By: ? Droota Alva RDMS Attending: ?Rafita RIVAS, Shirley J. Associate: ?Son RIVAS, Nohemi Referred By: ?DEVAN NUÑEZ MD Service(s) Provided ??URETRO - Retroperitoneal Complete - [id number] ? [id number] Indications ??kidney stones, ? medullary Comparison CT [...] 08/31/2015 03:22 pm) Patient Info ID #: [id number] : [birth year] (39 yrs) Name: VIANNEY Chao Visit Date: 08/31/2015 03:07 pm SON Performed By Performed By: Dorota Alva RDMS Attending: Shirley Eller MD Associate: Nohemi Cline MD Referred By: DEVAN NUÑEZ MD Service(s) Provided URETRO - Retroperitoneal Complete - [id number] Indications kidney stones, ? medullary Comparison CT [...] in this encounter Visit Diagnoses Diagnosis Renal stones Calculus of kidney documented in this encounter Care Teams Film Library Clerk Relationship Specialty Start Date End Date Latanya Wade MD [facility] [address] [place] [address] [place] [address] PCP - General 08/27/13 11/01/15 documented as of this encounter
--- OUTSIDE RECORDS SUMMARY | 2024-10-16 17:43 | XMS_ITS | Encounter Summary ---
Author Organization [facility] Address [facility] [place] [address] Care Team Providers Care Ship Propeller Finisher Name Role Phone Latanya Wade MD Primary Care Provider [phone] Encounter Details Date Type Department Care Team (Latest Contact Info) Description 07/30/2015 2:10 PM EDT - 07/30/2015 11:59 PM EDT Hospital Encounter XRay at [address] [place] [address] Pain in left shoulder Social History Tobacco [...] AM EST Office [place] [address] Mercy Amanda MD [facility] DR [address] [facility] [address] 04/01/2025 2:00 PM EDT Office Visit [place] [phone] Erum Szymanski MD [facility] [place] [address] documented as of this encounter Procedures Procedure Name Priority Date/Time Associated Diagnosis Comments XR SHOULDER Routine 07/30/2015 2:31 PM EDT Pain in left shoulder documented in this encounter Results * XR Shoulder (07/30/2015 [...] region documented in this encounter Care Teams Ship Propeller Finisher Relationship Specialty Start Date End Date Latanya Wade MD [facility] [address] [place] [address] [place] [address] PCP - General 08/27/13 11/01/15 documented as of this encounter
--- OUTSIDE RECORDS SUMMARY | 2024-10-16 17:43 | XMS_ITS | Encounter Summary ---
Author Organization [facility] Address [facility] [place] [address] Care Team Providers Care Sports Marketing Specialist Name Role Phone Latanya Wade MD Primary Care Provider [phone] Encounter Details Date Type Department Care Team (Latest Contact Info) Description 02/23/2015 10:50 AM EDT - 02/23/2015 11:59 PM EDT Hospital Encounter XRay at [address] [place] [address] CLINIC, Brandt Harris MD [facility] [place] [address] Hiatal hernia Discharge Disposition: Home Social History Tobacco Use [...] Sig Dispensed Refills Start Date End Date diphenhydrAMINE (BENADRYL) 50 mg/mL Solution Inject 0.5 mLs into the vein every 6 hours as needed for Itching. 10 mL 04/06/2015 12/13/2015 HYDROmorphone (DILAUDID) 1 mg/mL Liquid Take 2-4 mLs by mouth every 3 hours as needed. 210 mL 0 04/06/2015 06/02/2015 pantoprazole (PROTONIX) 40 mg Tablet, Delayed Release (E.C.)Indications:Collin t's esophagus with esophagitis Take 1 tablet by mouth 2 times daily. 180 tablet 3 02/23/2015 04/05/2015 documented as of this encounter Plan of Treatment Upcoming Encounters Date Type Department Care Team (Late st Contact Info) Description 12/31/2024 10:00 AM EST Office [place] [address] Mercy Amanda MD [facility] DR [facility] [address] 04/01/2025 2:00 PM EDT Office Visit [place] [address] Erum Szymanski MD [facility] [place] [address] documented as of this encounter Procedures Procedure Name Priority Date/Time Associated Diagnosis Comments XR FLUORO BARIUM SWALLOW (SINGLE CONTRAST) Routine 02/23/2015 11:39 AM EDT Hiatal hernia documented in this encounter Results * XR Fluoro Barium swallow (02/23/2015 11:39 AM EDT) Anatomical Region Laterality Modality N/A Radiographic Joann ging 02/23/2015 11:3 9 AM EDT Impressions 02/23/2015 12:29 PM EDT IMPRESSION: 1. ??Large hiatal hernia with the GE junction and portion of the fundus above the diaphragm, and a possible component of a compound hernia upon Valsalva. 2. ??Mild gastroesophageal reflux. This report was reviewed by Nory Mazariegos at 02/23/2015 12:24 PM Film and interpretation reviewed by the attending Narrative 02/23/2015 12:29 PM EDT EXAMINATION: BARIUM SWALLOW CLINICAL HISTORY: Large hiatal hernia noted on EGD. ?paraesophageal hernia TECHNIQUE: Effervescent crystals followed by barium were administered orally and multiple spot films of the esophagus, stomach and proximal duodenum are obtained through areas projections. A 13 mm barium pill was administered for swallowing under fluoroscopic observation. Fluoroscopy time: 1 minute and 41 seconds COMPARISON: None FINDINGS: Patient was able to swallow barium without difficulty. The peristalsis, mucosal pattern and caliber of the esophagus are within normal limits. Patient does have a large hiatal hernia better characterized on ORTIZ views, with the GE junction and portion of the fundus of the stomach above the diaphragm. Upon Valsalva there is a component of the hernia that does lateralize which suggests possible compound hernia. There is evidence of mild gastroesophageal reflux. Upon limited evaluation of the stomach, the caliber and mucosal pattern are within normal limits. The patient was able to swallow a 13 mm pill without difficulty. Procedure Note Nory Mazariegos MD - 02/23/2015 EXAMINATION: BARIUM SWALLOW CLINICAL HISTORY: Large hiatal hernia noted on EGD. ?paraesophagealhernia TECHNIQUE: Effervescent crystals followed by barium were administeredorally and multiple spot films of the esophagus, stomach and proximal duodenum areobtained through areas projections. A 13 mm barium pill was administered forswallowing under fluoroscopic observation. Fluoroscopy time: 1 minute and 41 seconds COMPARISON: None FINDINGS: Patient was able to swallow barium without difficulty. The peristalsis,mucosal pattern and caliber of the esophagus are within normal limits. Patientdoes have a large hiatal hernia better characterized on ORTIZ views, with the GEjunction and portion of the fundus of the stomach above the diaphragm. UponValsalva there is a component of the hernia that does lateralize which suggestspossible compound hernia. There is evidence of mild gastroesophageal reflux. Uponlimited evaluation of the stomach, the caliber and mucosal pattern are withinnormal limits. The patient was able to swallow a 13 mm pill without difficulty. IMPRESSION IMPRESSION: 1. Large hiatal hernia with the GE junction and portion of the fundusabove the diaphragm, and a possible component of a compound hernia upon Valsalva. 2. Mild gastroesophageal reflux. This report was reviewed by Nory Mazariegos at 02/23/2015 12:24PM Film and interpretation reviewed by the attending Brandt Barlow MD IMG FLUORO ORDERABLE S documented in this encounter Visit Diagnoses Diagnosis Hiatal hernia Diaphragmatic hernia without mention of obstruction or gangrene documented in this encounter Administered Medications Inactive Administered Medications - up to 3 most recent administrations Medication Order MAR Action Action Date Dose Rate Site barium sulfate (E-Z DISK) tablet 700 mg 700 mg, Oral, ONCE, 1 dose, On Sun02/23/15 at 1100, Routine Given 02/23/2015 11:21 AM EDT 700 mg barium sulfate (E-Z-HD) 98 % oral suspension 90 mL 90 mL, Oral, ONCE, 1 dose, On Sun02/23/15 at 1100, Routine Given 02/23/2015 11:21 AM EDT 90 mLs barium sulfate (EZPAQUE) oral suspension 175 mL 175 mL, Oral, ONCE, 1 dose, On Sun02/23/15 at 1115, Routine Given 02/23/2015 11:21 AM EDT 175 mLs documented in this encounter Care Teams Sports Marketing Specialist Relationship Specialty Start Date End Date Latanya Wade MD HOSP[facility] [address] [place] [address] [place] [address] PCP - General 08/27/13 11/01/15 documented as of this encounter
--- OUTSIDE RECORDS SUMMARY | 2024-10-16 17:43 | XMS_ITS | Encounter Summary ---
Author Organization [facility] [place] [address] Care Team Providers Care Smoking Pipe Coater Name Role Phone Latanya Wade MD Primary Care Provider [phone] Reason for Visit * Reason Comments Follow-up Encounter Details Date Type Department Care Team (Late st Contact Info) Description 03/31/2015 3:30 PM EDT Follow-Up Gastroenterology at [facility] [place] [address] Demi Gage, TEAGAN [facility] [place] [address] GI problem Discharge Disposition: Home Social History Tobacco Use [...] Sign Reading Time Taken Comments Blood Pressure 125/48 03/31/2015 3:27 PM EDT Pulse 78 03/31/2015 3:27 PM EDT Temperature - - Respiratory Rate - - Oxygen Saturation - - Inhaled Oxygen Concentration - - Weight 91.9 kg (202 lb 9.6 oz) 03/31/2015 3:27 P M EDT Height 160 cm (5' 3) 03/31/2015 3:27 PM EDT Body Mass Index 35.89 03/31/2015 3:27 PM EDT documented in this encounter Progress Notes * Demi Gage, MOLDING ENGINEER - 03/31/2015 2:00 PM EDT Subjective: Patient ID: Vianney Saini is a 39 y.o. woman who presents for follow up of her gastrointestinal symptoms. GI Problem List: 1. Rodgers's esophagus/GERD: --EGD 01/27/15: LA grade D esophagitis; large hiatal hernia; normal stomach and duodenum. Path: Specialized metaplastic columnar mucosa consistent with Rodgers's esophagus. No dysplasia. --US abdomen 01/27/15: 1. Normal gallbladder. No cholelithiasis. 2. Sub-cm left hepatic lobe cyst. Liver otherwise unremarkable, as is the visualized pancreas. 3. 1.8 cm right renal calculus, within the extrarenal pelvis, no associated hydronephrosis. 4. Diffuse right renal cortical thinning with findings compatible with medullary nephrocalcinosis. 2. Hiatal hernia: --scheduled for hiatal hernia repair and Addie fundoplication 04/05/15 --Barium swallow 02/23/15: 1. Large hiatal hernia with the GE junction and portion of the fundus above thediaphragm, and a possible component of a compound hernia upon Valsalva. 2. Mild gastroesophageal reflux. HPI Comments: Vianney Carcamo is a pleasant 39 year old woman who presents for consultation of her GERD. She reports experiencing epigastric burning every day but tends to be worse at night. States that symptoms have been present for several years. The pain does not radiate. The pain tends to be worse postprandially. She denies heartburn and regurgitation. Admits to acid taste. Unable to identify any specific triggers. She reports periodic episodes of worsening epigastric burning pain, which occurs 1-2 times per week. The pain wakes her up at night. The pain will radiate up into her chest. It is associated with vomiting. Emesis described as bile or undigested food. Denies nausea. She reports eating 1-2 meals per day and eats a large dinner. She reports periodic early satiety and postprandial fullness after dinner if she eats lunch. Takes Protonix 40 mg qd before bedtime or after eating and does not find it effective. She takes 4-5 Tums before bedtime with minimal relief. She tried Prilosec 20 mg qd with some relief but overtimeit became ineffective. Denies chest pain, ENT concerns, dysphagia, odynophagia, pre prandial symptoms. She reports having a formed bowel movement every day. No melena, hematochezia, rectal or anal pain.No straining or incomplete evacuation of stool. Weight stable. Allergic to fish. No food intolerances. No NSAID's. Remainder of ROS unremarkable. Interval Hx 03/31/2015: Vinaney Arriaga is a pleasant 39 year old woman who presents for follow upof her Rodgers's esophagus/GERD and large hiatal hernia. She reports that GERD symptoms improved with taking Protonix 40 mg BID. Rare epigastric burning. She denies nocturnal symptoms. She is careful to not eat 3-4 hours before bedtime. She reports resolution of her epigastric pain. Denies gas, bloating, distention, nausea, vomiting, chest pain, dysphagia, odynphagia, early satiety or postprandial fullness. She is scheduled for hiatal hernia repair and Addie fundoplication with Dr Moura on 04/05/2015. She reports having a formed bowel movement every day. No melena, hematochezia, rectal or anal pain. Weight stable. Remainder of ROS unremarkable. Review of Systems Constitutional: Negative. HENT: Negative. Respiratory: Negative. Cardiovascular: Negative. Gastrointestinal: See HPI Endocrine: Negative. Musculoskeletal: Negative. Skin: Negative. Allergic/Immunologic: Negative. Neurological: Negative. Hematological: Negative. Psychiatric/Behavioral: Negative. Allergies Allergen Reactions ??? Oxycodone Nausea And Vomiting Medications: reviewed in edh pantoprazole (PROTONIX) 40 mg Tablet, Delayed Release (E.C.) Past Medical History Diagnosis Date ??? PTSD (post-traumatic stress disorder) Past Surgical History Procedure Laterality Date ??? Dilation and curettage of uterus 1994 ??? Tonsillectomy ??? Upper gi endoscopy, biopsy N/A 01/27/2015 EGD WITH BIOPSY performed by Brandt Barlow MD at [facility] ENDOSCOPY Vital Signs: BP 125/48; P 78; Wt 204 lbs; Ht 5'3 Objective: Physical Exam Constitutional: She is oriented to person, place, and time. She appears well- developed and well-nourished. No distress. No physical exam performed. Genitourinary: Rectal exam deferred. Neurological: She is alert and oriented to person, place, and time. Skin: She is not diaphoretic. Psychiatric: She has a normal mood and affect. Her behavior is normal. Judgment and thought contentnormal. Vitals reviewed. Assessment and Plan: 1. GERD/Rodgers's esophagus and large hiatal hernia: symptoms much improved with taking Protonix 40mg BID. She is scheduled for hiatal hernia repair with Addie fundoplication 04/05/[address] Moura. Discussed continuing with Protonix 40 mg BID until surgery. GERD diet and lifestyle modifications.Recommend repeating EGD with biopsies 12/2015 rather than this April since she is scheduled for surgery. I have not scheduled a f/u at this time. 2. 1.8 cm right renal calculus, within the extrarenal pelvis, no associated hydronephrosis and diffuse right renal cortical thinning with findings compatible with medullary nephrocalcinosis: this wasnoted on abdominal US. Contacted Roxane Kenyon APRN to render her opinion and she had recommend referral to metabolic stone clinic. She is scheduled for appointment at the metabolic stone clinic on 04/06/2015. I did my best to answer all of her questions. The following plan was formulated. Plan: 1. Protonix 40 mg BID 2. GERD diet and lifestyle modifications 3. EGD with biopsies in 1 year 4. Follow up prn Patient understands and is agreeable to the above plan. Written instructions provided. Demi Gage APRN Section of Gastroenterology [place] [address] documented in this encounter Plan of Treatment Upcoming Encounters Date Type Department Care Team (Late st Contact Info) Description 12/31/2024 10:00 AM EST Office [place] [address] Mercy Amanda MD [facility] [address] [facility] [address] 04/01/2025 2:00 PM EDT Office [place] [phone] Erum Szymanski MD [facility] [place] [address] documented as of this encounter Visit Diagnoses Diagnosis GI problem Other symptoms involving digestive system documented in this encounter Care Teams Smoking Pipe Coater Relationship Specialty Start Date End Date Latanya Wade MD [facility] [address] [place] [address] [place] [address] PCP - General 08/27/13 11/01/15 documented as of this encounter
--- OUTSIDE RECORDS SUMMARY | 2024-10-16 17:43 | XMS_ITS | Encounter Summary ---
Author Organization [facility] [place] [address] Care Team Providers Care Steel Crane Operator Name Role Phone Latanya Wade MD Primary Care Provider [phone] Encounter Details Date Type Department Care Team (Late st Contact Info) Description 05/06/2015 [place] [address] Paresh Viramontes MD [facility] [place] [address] Social History Tobacco Use Types Packs/Day Years [...] as of this encounter Progress Notes * Paresh Viramontes - 05/06/2015 3:43 PM EDT Called patient and instructed her that a repeat culture 2 weeks prior to her surgery will need to be done. She will need to come in and drop this off. Surgery is not scheduled yet. * Maria Esther Simon LNA - 05/06/2015 12:48 PM EDT Urine culture on 05/04/2015 will be a no treat per Dr. Viramontes Value Urine Culture (Abnormal) 50,000-99,000 cfu/ml mixed mucosal poli Note: Multiple bacterial morphotypes present. Suggest appropriate recollection with timely delivery to the laboratory, if clinically significant. documented in this encounter Plan of Treatment Upcoming Encounters Date Type Department Care Team (Late st Contact Info) Description 12/31/2024 10:00 AM EST Office [place] [address] Mercy Amanda MD [facility] [address] [facility] [address] 04/01/2025 2:00 PM EDT Office [place] [address] Erum Szymanski MD [facility] [place] [address] documented as of this encounter Visit Diagnoses Not on filedocumented in this encounter Care Teams Steel Crane Operator Relationship Specialty Start Date End Date Latanya Wade MD [facility] [address] [place] [address] [place] [address] PCP - General 08/27/13 11/01/15 documented as of this encounter
--- OUTSIDE RECORDS SUMMARY | 2024-10-16 17:43 | XMS_ITS | Encounter Summary ---
[place] [address] Care Team Providers Care Hand Tool Lapper Name Role Phone Latanya Wade MD Primary Care Provider [phone] Reason for Visit * Reason Onset Date Comments Medication Refill 02/22/2015 Pantoprazole Encounter Details Date Type Department Care Team (Late st Contact Info) Description 02/22/2015 [place] [phone] Estrella Lim MA GASTROENTEROLOGY DEPT Rodgers's esophagus with esophagitis Social [...] AM EST Office [place] [phone] Mercy Amanda MD [facility] [address] [facility] [address] 04/01/2025 2:00 PM EDT Office [place] [address] Erum Szymanski MD [facility] [place] [address] documented as of this encounter Visit Diagnoses Diagnosis Rodgers's esophagus with esophagitis Rodgers's esophagus documented in this encounter Care Teams Hand Tool Lapper Relationship Specialty Start Date End Date Latanya Wade MD [facility] [address] [place] [address] [place] [address] PCP - General 08/27/13 11/01/15 documented as of this encounter
--- OUTSIDE RECORDS SUMMARY | 2024-10-16 17:43 | XMS_ITS | Encounter Summary ---
Author Organization Formerly [facility] [place] [address] Care Team Providers Care Manager Labor Relations Name Role Phone Latanya Newberry MD Primary Care Provider [phone] Encounter Details Date Type Department Care Team (Latest Contact Info) Description 06/01/2015 4:18 PM EDT - 06/02/2015 12:56 PM EDT Hospital Encounter [place] [address] Darius Nuñez Jr., MD [facility] [place] [address] Discharge Disposition: Home Social History Tobacco Use [...] Sign Reading Time Taken Comments Blood Pressure 108/50 06/02/2015 7:38 AM EDT Pulse 64 06/02/2015 7:38 AM EDT Temperature 36.7 ??C (98.1 ??F) 06/02/2015 7:38 AM ED T Respiratory Rate 17 06/02/2015 7:38 AM EDT Oxygen Saturation 97% 06/02/2015 7:38 AM EDT Inhaled Oxygen Concentration - - Weight 86.6 kg (191 lb) 06/01/2015 11:04 AM EDT Height 160 cm (5' 3) 06/01/2015 11:04 AM EDT Body Mass Index 33.83 06/01/2015 11:04 AM EDT documented in this encounter Discharge Summaries * Aliya Goodwin PA - 06/02/2015 8:41 AM EDT Discharge Summary Patient Name: Vianney Saini Patient Age: 39 y.o. Language: [place] Citizen Race: White Ethnicity: Not nor Admit date: 06/01/2015 Discharge date: 06/02/2015 Attending Physician: Darius Nuñez Jr., MD Discharge Physician: same Discharge Diagnoses (Hospital Problems) and Secondary Diagnoses (Chronic Problems): Right kidney stone Active Non-Hospital Problems Diagnosis ??? Dyspepsia ??? Elbow pain, right Operations/Major Procedures: Procedure(s): NEPHROLITHOTOMY, (PCNL) PERCUTANEOUS PERCUTANEOUS INTRO GUIDE WIRE TO ACCESS RENAL PELVIS,AND OR URETER, W\DILATION CYSTOURETEROSCOPY, DIAGNOSTIC CYSTO, STENT PLACEMENT 06/01/2015 History of Presentation (from Dr. Nuñez's note 05/04/15): Vianney Saini is a 39 y.o. woman who returns for urologic follow up regarding a right renal stone. She has a prior history of urolithiasis, having undergone SWL in 2005. However, she is unsurewhether it had worked as she never passed any stones. Her most recent episode of renal colic was inMarch 2015, at which time there was acute onset pain, 10/10 in severity, right flank and RLQ in location, sharp in nature, 1 day in duration. It had resolved and has not recurred other than intermittent episodes of very mild back pain. She is recently s/p paraesophageal hernia repair, is recovering well. I independently reviewed the CT from today (05/04/15). This reveals a 1.5 cm non- obstructing right renal pelvic stone. We discussed management options of watchful waiting, open or laparoscopic surgery, PCNL, Ureteroscopy, and SWL and the relative risks and benefits. We discussed that given its size,SWL, URS, and PCNL are each reasonable considerations. SWL would be associated with the quickest recovery. After reviewing pros and cons of each, she expressed desire to proceed with PCNL, understanding it is the most invasive and thus has the highest attendant risks associated. Hospital Course: Patient was admitted electively to [facility] via the same day surgery program and underwent the above procedure. She tolerated surgery well and was tranferred from the PACU to the general floor in good condition a few hours after surgery. Patient's hospital course was uncomplicated. She remained afebrile, with stable vital signs throughout her hospital stay. Today, on POD# 1 she has met all criteria for discharge home: her pain is well controlled with medications by mouth, she is tolerating a regular diet, is voiding spontaneously without difficulties, and is up and ambulating without complications. She has been deemed safe for discharge. Vital Signs at Discharge: Weight: Wt Readings from Last 1 Encounters: 06/01/15 86.637 kg (191 lb) Height: Ht Readings from Last 1 Encounters: 06/01/15 160 cm (5' 3) BMI: Body mass index is 33.84 kg/(m^2). Last value Range last 24 hrs Temperature Temp: 36.7 ??C (98.1 ??F) Temp: [36.4 ??C (97.5 ??F)-36.7 ??C (98.1 ??F)] Heart Rate Heart Rate: 64 Heart Rate: [64-95] Blood Pressure BP: 108/50 mmHg BP: (108-146)/(50-83) Respiratory Rate Resp: 17 Resp: [12-24] SpO2 SpO2: 97 % SpO2: [92 %-98 %] Exam at Discharge: General: NAD CV: RRR Pulm: CTAB Abd: soft, slight suprapubic tenderness, nondistended Ext: warm, well perfused Functional and Cognitive Status: Ambulating and cognitively intact. Important Studies and Lab Data: Lab Results Component Value Date WBC 11.5* 06/02/2015 RBC 4.11 06/02/2015 HGB 12.2 06/02/2015 HCT 35.7 06/02/2015 MCV 86.9 06/02/2015 MCH 29.7 06/02/2015 MCHC 34.2 06/02/2015 PLATELET 203 06/02/2015 RDWCV 13.0 06/02/2015 Lab Results Component Value Date NA 140 06/02/2015 K 4.2 06/02/2015 CL 107 06/02/2015 CO2 20* 06/02/2015 BUN 8 06/02/2015 CREATININE 0.69* 06/02/2015 GLUCOSE 116 06/02/2015 CALCIUM 8.3* 06/02/2015 Studies: 06/02 KUB Right-sided double-J ureteral stent is in place. No evidence of residual calculi. Pending Studies and Lab Data: Stone analysis Discharge Conditions/Prognosis: Stable Discharge to: Home Updated Allergies/ADRs: Allergies Allergen Reactions ??? Oxycodone Nausea And Vomiting Immunizations Given this Hospitalization: There is no immunization history on file for this patient. Discharge Medications: Your Medications New Medications Dose Details acetaminophen 325 mg Tab Commonly known as: TYLENOL Take 2 tablets by mouth every 4 hours as needed for Pain. 650 mg Refills: 0 oxybutynin 5 mg Tr24 Commonly known as: DITROPAN-XL Take 1 tablet by mouth daily as needed (urinary frequency, bladder spasms). 5 mg Quantity: 14 tablet Refills: 0 Continued medications, unchanged Dose Details diphenhydrAMINE 50 mg/mL Soln Commonly known as: BENADRYL Inject 0.5 mLs into the vein every 6 hours as needed for Itching. 25 mg Quantity: 10 mL Refills: 0 HYDROmorphone 1 mg/mL Liqd Commonly known as: DILAUDID Take 2-4 mLs by mouth every 3 hours as needed. 2-4 mg Quantity: 120 mL Refills: 0 Knyiywjqjttfo-Suzbhfkm-Hffnjh Tab Take by mouth. Refills: 0 Smoking Status at Discharge: History Smoking status ??? Former Smoker -- 0.50 packs/day for 6 years ??? Types: Cigarettes ??? Quit date: 01/25/1997 Smokeless tobacco ??? Never Used Instructions Given to Patient at Discharge: Patient Instructions DISCHARGE INSTRUCTIONS FOLLOWING PCNL Call your doctor for: ??? fevers greater than 100.5 ??? severe nausea or vomiting ??? increasing pain not controlled by pain medications ??? increasing redness or drainage from incisions ??? decreased urine output our if your catheter is no longer draining. The number for questions is [phone] before 5 PM weekdays and [phone] after 5 PM and weekends. Activity: Gradually increase activity with short frequent walks, three to four times a day. Avoid strenuous activities, like sports, lawn mowing, or heavy lifting more than 10-[address] while taking pain medication, or until your doctor permits it. Bathing and dressing change: You should not shower for 48 hours after surgery. Do not soak your back in a bathtub. Diet: It is extremely important to drink plenty of fluids after surgery, especially water. You may resumeyour regular diet, unless otherwise instructed Medications: You may take Tylenol (acetaminophen) or Ibuprofen (Advil, Motrin) as directed [id number]. Take any prescriptions as directed. Follow up Appointments: Follow-up appointment will be scheduled with Dr. Nuñez in approximately 2 weeks for a hospital check and stent removal. Appointment will be mailed to you. Please call [phone] (clinic number for appointments) to confirm date and time of your appointment if you do not receive it. You have a ureteral stent in place. It is important to remember that a stent is not a permanent device and must be removed in a timely fashion. Failure to remove a stent may result in the need for more procedures. General Instructions None Future Appointments Provider Department Dept Phone 06/17/2015 1:00 PM UROLOGY, PROCEDURE Urology [phone] 06/17/2015 1:20 PM Darius Nuñez Jr., MD [facility] [place] [phone] Follow-Up: Future Appointments Date Time Provider Department Center 06/17/2015 1:00 PM UROLOGY, PROCEDURE [facility] 06/17/2015 1:20 PM Darius Nuñez Jr., MD [facility] None Primary Care Provider: LATANYA NEWBERRY MD (General) [phone] Follow-up Recommendations for Providers: Please see discharge instructions. Call your doctor if: Please call your doctor immediately or go to an Emergency Department if you notice worsening pain not controlled by pain medications, uncontrolled headache, vision changes, chest pain, difficulty breathing, persistent nausea and vomiting, new redness or swelling in any extremities, new onset weakness or changes in sensation, or for any fevers greater than 101.3 F. Your care was managed by the Urology Team at [facility]. If you have any questions or concerns, please feel free to contact us. Provider Contact Information: Urology Clinic: [facility] (after business hours): documented in this encounter Discharge Instructions * Patient Instructions* Aliya Goodwin PA - 06/02/2015 8:44 AM EDT DISCHARGE INSTRUCTIONS FOLLOWING PCNL Call your doctor for: ??? fevers greater than 100.5 ??? severe nausea or vomiting ??? increasing pain not controlled by pain medications ??? increasing redness or drainage from incisions ??? decreased urine output our if your catheter is no longer draining. The number for questions is [phone] before 5 PM weekdays and [phone] after 5 PM and weekends. Activity: Gradually increase activity with short frequent walks, three to four times a day. Avoid strenuous activities, like sports, lawn mowing, or heavy lifting more than 10-[address] taking pain medication, or until your doctor permits it. Bathing and dressing change: You should not shower for 48 hours after surgery. Do not soak your back in a bathtub. Diet: It is extremely important to drink plenty of fluids after surgery, especially water. You may resumeyour regular diet, unless otherwise instructed Medications: You may take Tylenol (acetaminophen) or Ibuprofen (Advil, Motrin) as directed [id number]. Take any prescriptions as directed. Follow up Appointments: Follow-up appointment will be scheduled with Dr. Nuñez in approximately 2 weeks for a hospital check and stent removal. Appointment will be mailed to you. Please call [phone] (clinic number for appointments) to confirm date and time of your appointment if you do not receive it. You have a ureteral stent in place. It is important to remember that a stent is not a permanent device and must be removed in a timely fashion. Failure to remove a stent may result in the need for more procedures. documented in this encounter Medications at Time of Discharge Medication Sig Dispensed Refills Start Date End Date acetaminophen (TYLENOL) 325 mg Tablet Take 2 tablets by mouth every 4 hours as needed for Pain. 06/02/2015 12/13/2015 oxybutynin (DITROPAN-XL) 5 mg Tablet Extended Rel 24 hr Take 1 tablet by mouth daily as needed (urinary frequency, bladder spasms). 14 tablet 0 06/02/2015 07/30/2015 HYDROmorphone (DILAUDID) 1 mg/mL Liquid Take 2-4 mLs by mouth every 3 hours as needed. 120 mL 0 06/02/2015 07/30/2015 diphenhydrAMINE (BENADRYL) 50 mg/mL Solution Inject 0.5 mLs into the vein every 6 hours as needed for Itching. 10 mL 04/06/2015 12/13/2015 Multivitamins-Minerals- Lutein Tablet Take by mouth. 07/30/2015 documented as of this encounter Progress Notes * Simi Obando RN - 06/02/2015 2:16 PM EDT Simi Obando RN Case Manager pager [phone] Record reviewed. No discharge needs identified at this time. Greige Goods Marker remains available as needed for coordination of care and discharge planning. * Priti Duke RN - 06/01/2015 4:35 PM EDT Pt arrived to the floor via bed. Pt states pain is under control at this time. Right flank dressingis CD&I. Chirinos catheter in place and draining pink urine. Pt does c/o feeling urge to void withcatheter. VSS. Tolerating sips of water. Pt oriented to the room. Will continue to monitor. documented in this encounter H&P Notes * Jeremy Valenzuela - 06/01/2015 11:18 AM EDT The patient's history and physical exam have been reviewed and completed. There has been no interval change from that of the pre-operative history and physical exam done with Dr. Nuñez on 05/04/15. OK to proceed with planned RIGHT percutaneous renal access and RIGHT PCNL. documented in this encounter Miscellaneous Notes * Plan of Care - Priti Duke RN - 06/02/2015 12:55 PM EDT Problem: General Plan of Care Goal: Plan of Care Review 06/02/15 1251 Plan of Care Review Plan of Care Outcome Status ongoing (interventions implemented as appropriate) Progress improving Coping/Psychosocial Response Interventions Plan of Care Reviewed with patient OUTCOME EVALUATION NOTE: OUTCOME SUMMARY: Pt is ambulating, eating/drinking, and voiding. Her pain is under control using prn pain medicines.Her chirinos catheter was removed and she is voiding without difficulty. Xray was completed this morning. VSS. IV removed. AVS has been given/reviewed and all questions answered at this time. Pt is leaving the floor via wheelchair, accompanied by her significant other. PLAN MOVING FORWARD: D/c to home without VNA. INDIVIDUALIZED FALL PREVENTION: Assistance: Independent Supervision: Independent with ADLs Surveillance: q2 hour rounding; pulse oximetry; call cerda in reach CPG GOAL OUTCOME EVALUATION: Goal: Individualization and Mutuality 06/01/15 1800 Mutuality/Individual Preferences What anxieties, fears or concerns do you have about your health or care? none What questions do you have about your health or care? none What information would help us give you more personalized care? none Goal: Fall Prevention-Safe Patient Handling 06/01/15 1841 06/01/15 2100 06/02/15 0745 Safety Interventions Safety Precautions/Fall Reduction -- -- nonskid shoes/slippers when out of bed;low bed;lighting adjusted for task/safety;fall reduction program maintained;environmental modification Musculoskeletal Interventions Activity/Level of Assistance -- -- -- Positioning -- HOB up 30 degrees -- Self-Care Promotion instruction in safe use of adaptive equipment provided -- -- Romero Fall Risk History of Falling -- -- 0 Secondary Diagnosis -- -- 15 Ambulatory Aids -- -- 0 Intravenous Therapy/Heparin/Saline Lock -- -- 20 Gait/Transferring -- -- 0 Mental Status -- -- 0 Score -- -- 35 OTHER Romero Fall Risk -- -- Med 06/02/15 1011 Safety Interventions Safety Precautions/Fall Reduction -- Musculoskeletal Interventions Activity/Level of Assistance up in vieira;up in room;ambulated;independently Positioning -- Self-Care Promotion -- Romero Fall Risk History of Falling -- Secondary Diagnosis -- Ambulatory Aids -- Intravenous Therapy/Heparin/Saline Lock -- Gait/Transferring -- Mental Status -- Score -- OTHER Romero Fall Risk -- Goal: Infection Control 06/02/15 0745 Safety Interventions Isolation Precautions standard precautions maintained Infection Prevention rest/sleep promoted;promote handwashing;hydration promoted;environmental surveillance;nutrition promoted Coping/Psychosocial Response Interventions Counseling goal setting facilitated Goal: Discharge Needs Assessment 06/01/151840 Discharge Needs Assessment Concerns to be Addressed no discharge needs identified Readmission Within the Last 30 Days no previous admission in last 30 days Equipment Needed After Discharge none Current Health Anticipated Changes Related to Illness none Self-Care Equipment Currently Used at Home none Living Environment Transportation Available family or friend will provide * Plan of Care - Nelly Boyd RN - 06/02/2015 5:32 AM EDT Problem: General Plan of Care Goal: Plan of Care Review Outcome: Ongoing (Interventions Implemented as Appropriate) 06/01/15 1841 06/01/15 2100 Plan of Care Review Plan of Care Outcome Status ongoing (interventions implemented as appropriate) -- Progress improving -- Coping/Psychosocial Response Interventions Plan of Care Reviewed with -- patient OUTCOME EVALUATION NOTE: OUTCOME SUMMARY: Uneventful night. Pain managed with tylenol-does not like how dilaudid 2 mg PO made her feel. OOB in room x1. Ate ice cream, plenty of fluids. PLAN MOVING FORWARD: Breakfast, chirinos cath d/c as indicated with void following. INDIVIDUALIZED FALL PREVENTION: Assistance: stand by assist Supervision: independent Surveillance: Purposeful rounding CPG OUTCOME EVALUATION: Goal: Individualization and Mutuality Outcome: Ongoing (Interventions Implemented as Appropriate) 06/01/15 1800 Mutuality/Individual Preferences What anxieties, fears or concerns do you have about your health or care? none What questions do you have about your health or care? none What information would help us give you more personalized care? none Goal: Fall Prevention-Safe Patient Handling Outcome: Ongoing (Interventions Implemented as Appropriate) 06/01/15 1841 06/01/15 2100 Safety Interventions Safety Precautions/Fall Reduction -- nonskid shoes/slippers when out of bed;fall reduction program maintained Musculoskeletal Interventions Activity/Level of Assistance -- up in room;ambulated;with 1-person assist Positioning -- HOB up 30 degrees Self-Care Promotion instruction in safe use of adaptive equipment provided -- Romero Fall Risk History of Falling -- 0 Secondary Diagnosis -- 15 Ambulatory Aids -- 0 Intravenous Therapy/Heparin/Saline Lock -- 20 Gait/Transferring -- 0 Mental Status -- 0 Score -- 35 OTHER Romero Fall Risk -- Med Goal: Infection Control Outcome: Ongoing (Interventions Implemented as Appropriate) 06/01/15 1725 06/01/15 2100 Safety Interventions Isolation Precautions -- standard precautions maintained Infection Prevention rest/sleep promoted;promote handwashing;nutrition promoted;hydration promoted;environmental surveillance;blood glucose management -- Coping/Psychosocial Response Interventions Counseling -- goal setting facilitated Goal: Discharge Needs Assessment Outcome: Ongoing (Interventions Implemented as Appropriate) 06/01/15 1841 Discharge Needs Assessment Concerns to be Addressed no discharge needs identified Readmission Within the Last 30 Days no previous admission in last 30 days Equipment Needed After Discharge none Current Health Anticipated Changes Related to Illness none Self-Care Equipment Currently Used at Home none Living Environment Transportation Available family or friend will provide * Plan of Care - Priti Duke RN - 06/01/2015 6:46 PM EDT Problem: General Plan of Care Goal: Plan of Care Review 06/01/151840 Plan of Care Review Plan of Care Outcome Status ongoing (interventions implemented as appropriate) Progress improving Coping/Psychosocial Response Interventions Plan of Care Reviewed with patient OUTCOME EVALUATION NOTE: OUTCOME SUMMARY: Pt continues to improve this shift. We continue to work on pain control. She did receive a one timedose of a B&O suppository. Her bladder spasms were much improved afterwards. Right flank dressing remains CD&I. Chirinos catheter in place and draining clear red urine. VSS. Pt is tolerating a regular diet. She has not yet ambulated. PLAN MOVING FORWARD: Ambulate, AM labs INDIVIDUALIZED FALL PREVENTION: Assistance: Stand by assist Supervision: Independent with ADLs Surveillance: q2 hour rounding; pulse oximetry; call cerda in reach CPG GOAL OUTCOME EVALUATION: Goal: Individualization and Mutuality 06/01/15 1800 Mutuality/Individual Preferences What anxieties, fears or concerns do you have about your health or care? none What questions do you have about your health or care? none What information would help us give you more personalized care? none Goal: Fall Prevention-Safe Patient Handling 06/01/15 17206/01/151840 Safety Interventions Safety Precautions/Fall Reduction fall reduction program maintained;lighting adjusted for task/safety;low bed;environmental modification;nonskid shoes/slippers when out of bed;room near unit station -- Musculoskeletal Interventions Positioning HOB up 45 degrees -- Self-Care Promotion -- instruction in safe use of adaptive equipment provided Romero Fall Risk History of Falling 0 -- Secondary Diagnosis 15 -- Ambulatory Aids 0 -- Intravenous Therapy/Heparin/Saline Lock 20 -- Gait/Transferring 0 -- Mental Status 0 -- Score 35 -- OTHER Romero Fall Risk Med -- Goal: Infection Control 06/01/15 1725 06/01/151840 Safety Interventions Isolation Precautions -- standard precautions maintained Infection Prevention rest/sleep promoted;promote handwashing;nutrition promoted;hydration promoted;environmental surveillance;blood glucose management -- Coping/Psychosocial Response Interventions Counseling goal setting facilitated -- Goal: Discharge Needs Assessment 06/01/151840 Discharge Needs Assessment Concerns to be Addressed no discharge needs identified Readmission Within the Last 30 Days no previous admission in last 30 days Equipment Needed After Discharge none Current Health Anticipated Changes Related to Illness none Self-Care Equipment Currently Used at Home none Living Environment Transportation Available family or friend will provide * Op Note - Jeremy Valenzuela - 06/01/2015 2:48 PM EDT Operative Note Patient Name: Vianney Saini : [id number] MR#: [id number] Case Date: 06/01/2015 Surgeon: Surgeon(s) and Role: * Darius Nuñez Jr., MD - Primary * Jeremy Valenzuela MD - Resident-Surgeon Chief Preoperative diagnosis: R RENAL STONE Postoperative diagnosis: R RENAL STONE Procedure(s): NEPHROLITHOTOMY, (PCNL) PERCUTANEOUS PERCUTANEOUS INTRO GUIDE WIRE TO ACCESS RENAL PELVIS,AND OR URETER, W\DILATION CYSTOURETEROSCOPY, DIAGNOSTIC CYSTO, STENT PLACEMENT Anesthesia: General Findings: - Subcostal access (Right) - Solitary renal pelvis stone (right) - No stones on final mapping pyeloscopy / ureteroscopy Complications: none Fluids: 1.2L crystalloid Estimated Blood Loss: * No values recorded between 06/01/2015 12:24 PM and 06/01/2015 2:24 PM * Drains: 6F VL Right ureteral stent Disposition: awakened from anesthesia, extubated and taken to the recovery room in a stable condition, having suffered no apparent untoward event. Condition: doing well without problems (Please see the Surgical Encounter Summary for any Implant and Specimen details pertinent to this patient.) HPI: 39 y/o female found to have a large right renal pelvis stone on evaluation for abdominal pain following paraesophageal hernia repair. Procedure in Detail: The patient was identified and greeted in the preoperative holding area. She was marked and consentwas verified. She was brought to the operating room and general anesthesia was induced on the stretcher. She was then turned to the prone position on the OR table and care taken to pad all pressure points. She was secured to the table. A standard time-out was performed. The flexible cystoscope was then inserted through the urethra and into the bladder while the patient was in the prone position. The RIGHT ureteral orifice was identified and cannulated using a glide wire. The cystoscope was removed and a 5-[place] catheter was passed over the wire and seen to be in good position within the renal pelvis. The flexible ureteroscopy was then passed up the right ureter and the collecting system inspected. There was a large renal pelvis stone noted. A posterior, interpolar calyx was identified and the tip of the scope placed at the papilla. Using biplanar fluoroscopy in the AP and 25 degree oblique planes, this calyx was targeted using the bullseye technique on to the tip of the scope. The needle was advanced under fluoroscopic guidance. When it was felt to be in the proper positionbased on fluoroscopy and confirmed endoscopically, the inner cannula of the needle was removed and a glidewire was inserted and seen to pass down the ureter on fluoroscopy. The access needle was removed, and the inner cannula of the 8/10 dilator was passed over the [place] wire to gently dilate the tract. The dilator was removed, and an angiographic catheter was placed over the Glidewire. This was used to redirect the wire out the urethra, obtaining oyetqsi-caf-umkojoi access. The wire was exchanged for a Superstiff. The angiographic catheter was removed. An 8/10 dilator was placed over the supe rstiff wire. The inner cannula was removed, and an additional Glidewire was placed down the 8/10 dilator. This wire also passed out through the urethra. An angiographic catheter was passed over the Mead and it was exchanged for an additional Superstiff. The 8/10 dilator was removed. A skin incision measuring approximately 1 cm was made. The distal ends of the wires were secured to the drape. TheNephroMax balloon was then inserted over a wire and on fluoroscopy was seen to be in good position within the calyx. The balloon was then inflated with contrast to a pressure of 14 atmospheres. The 30-British access sheath was easily placed over the balloon and seen on fluoroscopy to be in good position within the calyx. The balloon was then deflated and removed, and the rigid nephroscope was inserted. A large stone was visualized within the renal pelvis. A two pronged grasper was used to extract blood clots from the collecting system. The Lithoclast was used to fragment and remove the stones. The flexible cystoscope was then inserted and the collecting system systematically inspected. The N-Mk basket was used to extract residualstone fragments. Small fragments were irrigated out of the calyces to the renal pelvis. The rigid nephroscope was reinserted and additional stone fragments were suctioned out. Using the flexible scope, a mapping pyelogram was performed after instillation of omnipaque contrast. The entire collecting system was visualized. After the flexible cystoscope was removed, the flexible ureteroscope was introduced to perform antegrade ureteroscopy. The entire ureter was inspected. Some stone and clot debris was basket extracted or irrigated down to the bladder. Before removing the ureteroscope, a glide wire was passed through it and left in the bladder. The rigid nephroscope was then reinserted. The Mead wire was backloaded into the scope and in an antegrade fashion, a 6F VL7. The distal coil was seen fluoroscopically to be in good position in the bladder and the proximal coil was visualized to be in good position in the renal pelvis. The rigid nephroscope was removed and a 24 indonesian Black catheter was passed through the access sheath over the working wire. It was seen to be within good position in the renal pelvis fluoroscopically. A nephrostogram was performed, and there was no extravasation of contrast. The renal access sheath was pulled back on the nephrostomy tube, cut with scissors and removed. Direct pressure was held on the tract to minimize bleeding. The c-arm was moved over the chest and there was no hydrothorax or pneumothorax visualized. The patient was placed in Trendelenburg position and the c-arm was obliqued to monitor for fluid in the chest. There was no evidence for hydro or pneumothorax. A 5F [place] catheter was passed over the working wire and into the Black nephrostomy tube. It was seen onfluoroscopy to be in good position in the proximal ureter. The wires were removed. There was minimal bleeding and the decision was made to remove the nephrostomy tube and re-entry catheter. The subcutaneous tissue was closed with 3-0 vicryl and the skin closed with Monocryl. The incision was dressed with xeroform and tegiderm dressing. The patient was moved back to the supine position on the stretcher, awakened from anesthesia and extubated. She was taken to the recovery area in stable condition. * Brief Op Note - Jeremy Valenzuela - 06/01/2015 2:46 PM EDT Brief Operative Note Patient Name: Vianney Saini : [id number] MR#: [id number] Case Date: 06/01/2015 Surgeon: Surgeon(s) and Role: * Darius Nuñez Jr., MD - Primary * Jeremy Valenzuela MD - Resident-Surgeon Chief Preoperative diagnosis: R RENAL STONE Postoperative diagnosis: R RENAL STONE Procedure(s): NEPHROLITHOTOMY, (PCNL) PERCUTANEOUS PERCUTANEOUS INTRO GUIDE WIRE TO ACCESS RENAL PELVIS,AND OR URETER, W\DILATION CYSTOURETEROSCOPY, DIAGNOSTIC CYSTO, STENT PLACEMENT Anesthesia: General Findings: - Subcostal access (Right) - Solitary renal pelvis stone (right) - No stones on final mapping pyeloscopy / ureteroscopy Complications: none Fluids: 1.2L crystalloid Estimated Blood Loss: * No values recorded between 06/01/2015 12:24 PM and 06/01/2015 2:24 PM * Drains: 6F VL Right ureteral stent Disposition: awakened from anesthesia, extubated and taken to the recovery room in a stable condition, having suffered no apparent untoward event. Condition: doing well without problems (Please see the Surgical Encounter Summary for any Implant and Specimen details pertinent to this patient.) Associated attestation - Darius Nuñez Jr., MD - 06/01/2015 4:47 PM EDT I was present and I participated during the entire procedure. documented in this encounter Plan of Treatment Upcoming Encounters Date Type Department Care Team (Late st Contact Info) Description 12/31/2024 10:00 AM EST [place] [address] Mercy Amanda MD [facility] [address] [facility] [place] [address] 04/01/2025 2:00 PM EDT Office [place] [phone] Erum Szymanski MD [facility] [place] [address] Pending Results Name Type Priority Associated Diagnoses Date /Time XR Fluoro OR c-arm storage only Imaging Routine 06/01/2015 2:24 PM EDT Scheduled Orders Name Type Priority Associated Diagnoses Orde r Schedule XR Fluoro OR c-arm storage only Imaging Routine Once PRN (for Ra diant use) for 1 Occurrences starting 06/01/2015 until 06/01/2015 documented as of this encounter Procedures Procedure Name Priority Date/Time Associated Diagnosis Comments XR ABDOMEN 1 VIEW STAT 06/02/2015 9:3 6 AM EDT HEMOGRAM Timed 06/02/2015 3:45 AM EDT DIFFERENTIAL, AUTOMATED Timed 06/02/2015 3:45 AM EDT CBC (WITH DIFF) Timed 06/02/2015 3:45 AM EDT BASIC METABOLIC PANEL Timed 06/02/2015 3:45 AM EDT IMPLANTABLE DEVICES SCAN 06/02/2015 12:00 AM EDT ECG SCAN 06/02/2015 12:00 AM EDT HEMOGRAM STAT 06/01/2015 3:19 PM EDT DIFFERENTIAL, AUTOMATED STAT 06/01/2015 3:19 PM EDT CBC (WITH DIFF) STAT 06/01/2015 3:19 PM EDT BASIC METABOLIC PANEL STAT 06/01/2015 3:19 PM EDT KIDNEY STONE ANALYSIS Routine 06/01/2015 2:24 PM EDT TYPE AND SCREEN, SDP (FUTURE SURGERY, [facility] SAME DAY PROGRAM ONLY) Routine 06/01/2015 12:41 PM EDT ABO/RH TYPING Routine 06/01/2015 12:41 PM EDT ANTIBODY SCREEN Routine 06/01/2015 12:41 PM EDT CYSTO, STENT PLACEMENT (WRVU 2.82) 06/01/2015 11:41 AM EDT R RENAL STONE CYSTOURETEROSCOPY, DIAGNOSTIC (WRVU 5.75) 06/01/2015 11:41 AM EDT R RENAL STONE PERCUTANEOUS INTRO GUIDE WIRE TO ACCESS RENAL PELVIS,AND OR URETER, W\DILATION (WRVU 3.37) 06/01/2015 11:41 AM EDT R RENAL STONE NEPHROLITHOTOMY, (PCNL) PERCUTANEOUS (WRVU 12.41) 06/01/2015 11:41 AM EDT R RENAL STONE documented in this encounter Results * XR abdomen 1 view (06/02/2015 9:36 AM EDT) Anatomical Region Laterality Modality Abdomen N/A Radiographic Joann ging 06/02/2015 9:36 AM EDT Impressions 06/02/2015 11:19 AM EDT IMPRESSION: Right-sided double-J ureteral stent is in place. No evidence of residual calculi. Narrative 06/02/2015 11:19 AM EDT EXAMINATION: ABDOMEN SINGLE VIEW CLINICAL HISTORY: check for residual stone s/p right PCNL TECHNIQUE: 2 AP supine images of the abdomen. COMPARISON: CT May 04, 2015. FINDINGS: The calculus at the level of the renal pelvis seen on prior CT is no longer present. A double-J ureteral stent is in place on the right, which extends from the level of the renal pelvis to the urinary bladder. No evidence of residual stones along the ureter. Also, no evidence of a calculus on the left. Small rounded calcifications at the level of the pelvis are consistent with phleboliths. Bowel gas pattern is within normal limits. Procedure Note Tawana Cheema MD - 06/02/2015 EXAMINATION: ABDOMEN SINGLE VIEW CLINICAL HISTORY: check for residual stone s/p right PCNL TECHNIQUE: 2 AP supine images of the abdomen. COMPARISON: CT May 04, 2015. FINDINGS: The calculus at the level of the renal pelvis seen on prior CT is nolonger present. A double-J ureteral stent is in place on the right, which extendsfrom the level of the renal pelvis to the urinary bladder. No evidence ofresidual stones along the ureter. Also, no evidence of a calculus on the left. Small rounded calcifications at the level of the pelvis are consistentwith phleboliths. Bowel gas pattern is within normal limits. IMPRESSION IMPRESSION: Right-sided double-J ureteral stent is in place. No evidence of residual calculi. Darius Nuñez Jr., MD IMG DX ORDERABLES * (ABNORMAL) Differential, Automated (06/02/2015 3:45 AM EDT) Neutrophil % 78.4 % CERNER MILLENNIUM Neutrophil Absolute 9.04(H) 1.50 - 6.30 x10(3)/mc L CERNER MILLENNIUM Lymph % 15.0 % CERNER MILLENNIUM Lymphocytes Abs 1.7 1.0 - 3.6 x10(3)/mc L CERNER MILLENNIUM Monocyte % 6.2 % CERNER MILLENNIUM Monocyte Abs 0.7 0.2 - 1.0 x10(3)/mc L CERNER MILLENNIUM Eos % 0.0 % CERNER MILLENNIUM Eosinophils Abs 0.0 0.0 - 0.5 x10(3)/mc L CERNER MILLENNIUM Basophil % 0.1 % CERNER MILLENNIUM Baso Absolute 0.0 0.0 - 0.2 x10(3)/mc L CERNER MILLENNIUM Immature Gran % 0.30 % CERN ER MILLENNIUM Comment: Immature granulocytes(IG's)percentage and absolute count will include metamyelocytes, myelocytes, and promyelocytes. Blood smears from CBCs yielding IG's will be scanned manually for concordance. If this scan disagrees with the automated IG or if promyelocytes are noted, a manual differential will be performed. Immature Gran Absolute 0.03 0.00 - 0.05 x10(3)/mc L CERNER MILLENNIUM Blood specimen (specimen) 06/02/2015 3:45 AM EDT 06/02/2015 3:49 AM EDT Narrative Resulting Agency Comment Spec In Lab Darius Nuñez Jr., MD HEMATOLOGY ORDERAB LES CERGABY HOUSTONENNIUM * (ABNORMAL) Hemogram (06/02/2015 3:45 AM EDT) White Blood Cell 11.5(H) 4.0 - 10.0 x10(3)/mc L CERNER MILLENNIUM Red Blood Cell 4.11 3.93 - 5.22 x10(6)/mc L CERNER MILLENNIUM Hemoglobin 12.2 11.2 - 15.7 gm/dL CERNER MILLENNIUM Hematocrit 35.7 34.0 - 45.0 % CERNER MILLENNIUM Mean Cell Volume 86.9 79.0 - 94.0 fL CERNER MILLENNIUM Mean Cell Hemoglobin 29.7 26.6 - 32.2 pg CERNER MILLENNIUM Mean Cell Hemoglobin Concentration 34.2 32.0 - 36.5 gm/dL CERNER MILLENNIUM Platelet 203 145 - 370 x10(3)/mc L CERNER MILLENNIUM RDW Standard Deviation 41.3 35.0 - 46.0 fL CERNER MILLENNIUM RDW coefficient of variation 13.0 10.9 - 14.4 % CERNER MILLENNIUM Mean Platelet Volume 10.4 9.0 - 12.0 fL CERNER MILLENNIUM Blood specimen (specimen) 06/02/2015 3:45 AM EDT 06/02/2015 3:49 AM EDT Narrative Resulting Agency Comment Spec In Lab Darius Nuñez Jr., MD [facility] * (ABNORMAL) Basic Metabolic Panel (non-fasting) (06/02/2015 3:45 AM EDT) [facility] Glucose 116 65 - 199 mg/dL CERNER MILLENNIUM Comment:Diabetes: >=200 mg/d L plus symptoms Blood Urea Nitrogen 8 8 - 18 mg/dL CERNER MILLENNIUM Creatinine 0.69(L) 0.70 - 1.20 mg/dL CERNER MILLENNIUM Comment: Please note that the pediatric reference intervals supplied above were not validated at [facility]. Results from pediatric patients should be interpreted in conjunction to the patient's age, height and muscle mass. Sodium 140 135 - 145 mmol/L CERNER MILLENNIUM Potassium 4.2 3.5 - 5.0 mmol/L CERNER MILLENNIUM Comment: Please note: ??Patients with WBC >100,000 may have falsely elevated Potassium levels. ??For accurate Potassium quantification in these patients send serum separator tube (gold top) for subsequent determinations. ??Contact the Clinical Chemistry Laboratory if there are any questions. Chloride 107 98 - 107 mmol/L CERNER MILLENNIUM Carbon Dioxide 20(L) 22 - 31 mmol/L CERNER MILLENNIUM Anion Gap 13 5 - 15 mmol/L CERNER MILLENNIUM Calcium 8.3(L) 8.5 - 10.5 mg/dL CERNER MILLENNIUM Est Glomerular Filtration Rate >60 >=60 CERNER MILLENNIUM Comment: This estimated GFR (eGFR) value was calculated using the MDRD equation which has been validated on patients between the ages of 18 and 70. The MDRD should not be used to assess kidney function in patients < 18 years of age or in patients with extremes of body mass, or in patients with acute kidney failure. This value should be multiplied by 1.2 for patients. For further information please copy and paste the following links into your internet browser. [email or web address] Blood specimen (specimen) 06/02/2015 3:45 AM EDT 06/02/2015 3:49 AM EDT Narrative Resulting Agency Comment Spec In Lab Darius Nuñez Jr., MD CHEMISTRY ORDERABL ES MELISSA ZHENGIUM * SCAN DOC: IMPLANTABLE DEVICES (06/02/2015 12:00 AM EDT) Scanning Provider MEDIA MGR SCAN EXT O RDR/RSLT * SCAN DOC: ECG (06/02/2015 12:00 AM EDT) Scanning Provider MEDIA MGR SCAN EXT O RDR/RSLT * (ABNORMAL) Differential, Automated (06/01/2015 3:19 PM EDT) Neutrophil % 76.7 % CERNER MILLENNIUM Neutrophil Absolute 6.78(H) 1.50 - 6.30 x10(3)/mc L CERNER MILLENNIUM Lymph % 21.2 % CERNER MILLENNIUM Lymphocytes Abs 1.9 1.0 - 3.6 x10(3)/mc L CERNER MILLENNIUM Monocyte % 1.6 % CERNER MILLENNIUM Monocyte Abs 0.1(L) 0.2 - 1.0 x10(3)/mc L CERNER MILLENNIUM Eos % 0.3 % CERNER MILLENNIUM Eosinophils Abs 0.0 0.0 - 0.5 x10(3)/mc L CERNER MILLENNIUM Basophil % 0.1 % CERNER MILLENNIUM Baso Absolute 0.0 0.0 - 0.2 x10(3)/mc L CERNER MILLENNIUM Immature Gran % 0.10 % CERN ER MILLENNIUM Comment: Immature granulocytes(IG's)percentage and absolute count will include metamyelocytes, myelocytes, and promyelocytes. Blood smears from CBCs yielding IG's will be scanned manually for concordance. If this scan disagrees with the automated IG or if promyelocytes are noted, a manual differential will be performed. Immature Gran Absolute 0.01 0.00 - 0.05 x10(3)/mc L CERNER MILLENNIUM Blood specimen (specimen) 06/01/2015 3:19 PM EDT 06/01/2015 3:26 PM EDT Narrative Resulting Agency Comment Spec In Lab Darius Nuñez Jr., MD HEMATOLOGY ORDERAB LES CERGABY HOUSTONENNIUM * Hemogram (06/01/2015 3:19 PM EDT) White Blood Cell 8.8 4.0 - 10.0 x10(3)/mcL CERNER MILLENNIUM Red Blood Cell 4.23 3.93 - 5.22 x10(6)/mcL CERNER MILLENNIUM Hemoglobin 12.5 11.2 - 15.7 gm/dL CERNER MILLENNIUM Hematocrit 36.5 34.0 - 45.0 % CERNER MILLENNIUM Mean Cell Volume 86.3 79.0 - 94.0 fL CERNER MILLENNIUM Mean Cell Hemoglobin 29.6 26.6 - 32.2 pg CERNER MILLENNIUM Mean Cell Hemoglobin Concentration 34.2 32.0 - 36.5 gm/dL CERNER MILLENNIUM Platelet 199 145 - 370 x10(3)/mcL CERNER MILLENNIUM RDW Standard Deviation 40.7 35.0 - 46.0 fL CERNER MILLENNIUM RDW coefficient of variation 12.9 10.9 - 14.4 % CERNER MILLENNIUM Mean Platelet Volume 10.6 9.0 - 12.0 fL CERNER MILLENNIUM Blood specimen (specimen) 06/01/2015 3:19 PM EDT 06/01/2015 3:26 PM EDT Narrative Resulting Agency Comment Spec In Lab Darius Nuñez Jr., MD HEMATOLOGY ORDERAB LES CERNER MILLENNIUM * (ABNORMAL) Basic Metabolic Panel (non-fasting) (06/01/2015 3:19 PM EDT) Pathologist [facility] Glucose 134 65 - 199 mg/dL CERNER MILLENNIUM Comment:Diabetes: >=200 mg/d L plus symptoms Blood Urea Nitrogen 10 8 - 18 mg/dL CERNER MILLENNIUM Creatinine 0.82 0.70 - 1.20 mg/dL CERNER MILLENNIUM Comment: Please note that the pediatric reference intervals supplied above were not validated at [facility]. Results from pediatric patients should be interpreted in conjunction to the patient's age, height and muscle mass. Sodium 138 135 - 145 mmol/L CERNER MILLENNIUM Potassium 4.1 3.5 - 5.0 mmol/L CERNER MILLENNIUM Comment: Please note: ??Patients with WBC >100,000 may have falsely elevated Potassium levels. ??For accurate Potassium quantification in these patients send serum separator tube (gold top) for subsequent determinations. ??Contact the Clinical Chemistry Laboratory if there are any questions. Chloride 104 98 - 107 mmol/L CERNER MILLENNIUM Carbon Dioxide 21(L) 22 - 31 mmol/L CERNER MILLENNIUM Anion Gap 13 5 - 15 mmol/L CERNER MILLENNIUM Calcium 8.3(L) 8.5 - 10.5 mg/dL CERNER MILLENNIUM Est Glomerular Filtration Rate >60 >=60 CERNER MILLENNIUM Comment: This estimated GFR (eGFR) value was calculated using the MDRD equation which has been validated on patients between the ages of 18 and 70. The MDRD should not be used to assess kidney function in patients < 18 years of age or in patients with extremes of body mass, or in patients with acute kidney failure. This value should be multiplied by 1.2 for patients. For further information please copy and paste the following links into your internet browser. [email or web address] Blood specimen (specimen) 06/01/2015 3:19 PM EDT 06/01/2015 3:26 PM EDT Narrative Resulting Agency Comment Spec In Lab Darius Nuñez Jr., MD CHEMISTRY ORDERABL ES MELISSA HOUSTONEnergy[employer] * Kidney Stone Analysis (06/01/2015 2:24 PM EDT) Kidney Stone Analysis (MAY) Test ?Result ?Flag ??Unit ??RefValue Kidney Stone Analysis ??Source: ? Right Renal ??1st Constituent: 50% Calcium phosphate (apatite) ??2nd Constituent: 20% Calcium oxalate monohydrate ??3rd Constituent: 20% Calcium oxalate dihydrate ??Comment ? 10% Calcium carbonate Test Performed by: [place] [address] Test Fixture Designer: Valentín Goetz II, M.D., Ph.D. MELISSA ZHENGeHi [employer] Calculus specimen (specimen) 06/01/2015 2:24 PM EDT 06/01/2015 2:59 PM EDT Narrative Resulting Agency Comment Spec In Lab Darius Nuñez Jr., MD LAB SEND OUT ORDER SUGAR MELISSA CURTIS * Antibody screen (06/01/2015 12:41 PM EDT) Ab Screen Interp Negative MELISSA CURTIS Expires at [id number] on: 06/04/2015 MELISSA CURTIS Blood specimen (specimen) 06/01/2015 12:41 PM EDT 06/01/2015 12:41 PM EDT Narrative Resulting Agency Comment Spec In Lab Darius Nuñez Jr., MD BLOOD BANK LAB ORD ERABLES Performing Organization Address [facility] Co de Phone Number MELISSA CURTIS * ABO/Rh Typing (06/01/2015 12:41 PM EDT) ABORH Type A Pos MELISSA CURTIS Blood specimen (specimen) 06/01/2015 12:41 PM EDT 06/01/2015 12:41 PM EDT Narrative Resulting Agency Comment Spec In Lab Darius Nuñez Jr., MD BLOOD BANK LAB ORD ERABLES Performing Organization Address [facility] Co de Phone Number MELISSA CURTIS documented in this encounter Visit Diagnoses Not on filedocumented in this encounter Administered Medications Inactive Administered Medications - up to 3 most recent administrations Medication Order MAR Action Action Date Dose Rate Site acetaminophen (TYLENOL) tablet 650 mg 650 mg, Oral, EVERY 4 HOURS, 11 doses, First dose on Sun06/01/15 at 1645, Last dose on Sun06/03/15 at 1000, Maximum dose of acetaminophen is 4000 mg from all sources in 24 hours., Routine Given 06/02/2015 10:06 AM EDT 650 mg Given 06/02/2015 5:22 AM EDT 650 mg Given 06/01/2015 11:47 PM EDT 650 mg belladonna-opium (B&O SUPPRETTES) 16.2-60 mg suppository 60 mg 60 mg, Rectal, ONCE, On Sun06/01/15 at 1745, 1 dose Given 06/01/2015 5:33 PM EDT 60 mg ciprofloxacin HCl (CIPRO) tablet 500 mg 500 mg, Oral, 2 TIMES DAILY, First dose on Sun06/01/15 at 1900, Until Discontinued, Recovery (Recovery-Hospital Unit), Routine, Indication for (Active or Suspected): Prophylaxis Given 06/02/2015 8:08 AM EDT 500 mg Given 06/01/2015 8:55 PM EDT 500 mg docusate sodium (COLACE) capsule 100 mg 100 mg, Oral, 2 TIMES DAILY, First dose on Sun06/01/15 at 2100, Until Discontinued, Routine Given 06/02/2015 8:08 AM EDT 100 mg Given 06/01/2015 8:54 PM EDT 100 mg HYDROmorphone (DILAUDID) syringe 0.2-0.4 mg 0.2-0.4 mg, Intravenous, EVERY 5 MIN PRN, Pain, Starting on Sun06/01/15 at 1359, Until Sun06/01/15 at 1611, For moderate pain (4-6) give: 0.2 mg every 5 minute prn For severe pain (7-10) give: 0.4 mg every 5 minutes prn Maximum dose: 4 mg per hour Hold for respiratory rate less than 10 per minute., PACU Recovery Given 06/01/2015 3:50 PM EDT 0.4 mg Given 06/01/2015 3:27 PM EDT 0.4 mg Given 06/01/2015 3:13 PM EDT 0.4 mg HYDROmorphone (DILAUDID) tablet 2 mg 2 mg, Oral, EVERY 4 HOURS PRN, Starting on Sun06/01/15 at 1526, Until Sun06/02/15 at 1502, Pain, for mild pain (1-3), May give an additional 2 mg once if pain not relieved in 30-60 minutes., Routine Given 06/01/2015 11:47 PM EDT 2 mg HYDROmorphone (DILAUDID) tablet 4 mg 4 mg, Oral, EVERY 4 HOURS PRN, Starting on Sun06/01/15 at 1526, Until Sun06/02/15 at 1502, Pain, for moderate pain (4-6), May give an additional 2 mg once if pain not relieved in 30-60 minutes., Routine Given 06/01/2015 6:48 PM EDT 4 mg oxybutynin (DITROPAN-XL) CR tablet 5 mg 5 mg, Oral, DAILY PRN, Starting on Sun06/02/15 at 1153, Until Sun06/02/15 at 1502, bladder spasms, Swallow whole; Do not crush, STAT Given 06/02/2015 12:25 PM EDT 5 mg sodium chloride 0.9% infusion 100 mL/hr, Intravenous, CONTINUOUS, Starting on Sun06/01/15 at 1545, Until Sun06/02/15 at 0832, Recovery (Recovery-Hospital Unit) New Bag 06/01/2015 11:48 PM EDT 100 mL/hr 100 m L/hr New Bag 06/01/2015 3:30 PM EDT 100 mL/hr 100 mL/hr documented in this encounter Active and Recently Administered Medications Times are shown in EDT. Scheduled Medication Order 05/31/2015 06/01/2015 06/02/2015 acetaminophen (TYLENOL) tablet 650 mg 650 mg, Oral, EVERY 4 HOURS, 11 doses, First dose on Sun06/01/15 at 1645, Last dose on Sun06/03/15 at 1000, Maximum dose of acetaminophen is 4000 mg from all sources in 24 hours., Routine 1732 (Given - Provider: Priti Duke RN)2045 (Not Given - Provider: Nelly Boyd RN - Reason: See comment - Comment: given earlier)2347 (Given - Provider: Nelly Boyd RN) 0522 (Given - Provider: Nelly Boyd RN)1006 (Given - Provider: Priti Duke RN) ampicillin 1g vial attach to sodium chloride 0.9% 100 mL Mini-Bag Plus (COMPLETED) 1,000 mg (1 g), Intravenous, COURT LIAISON TO O.R., 1 dose, On Sun06/01/15 at 1115, Administer over 15 Minutes, Day of Surgery (Day of Procedure), Indication for (Active or Suspected): Prophylaxis 1208 (Given - Provider: Rainer Yi MD) belladonna-opium (B&O SUPPRETTES) 16.2-60 mg suppository 60 mg (COMPLETED) 60 mg, Rectal, ONCE, On Sun06/01/15 at 1745, 1 dose 1733 (Given - Provider: Priti Duke, NIMCO) ciprofloxacin HCl (CIPRO) tablet 500 mg (CANCELED) 500 mg, Oral, 2 TIMES DAILY, First dose on Sun06/01/15 at 1900, Until Discontinued, Recovery (Recovery-Hospital Unit), Routine, Indication for (Active or Suspected): Prophylaxis 2054 (Given - Provider: Nelly Boyd RN) 0808 (Given - Provider: Priti Duke RN) docusate sodium (COLACE) capsule 100 mg (CANCELED) 100 mg, Oral, 2 TIMES DAILY, First dose on Sun06/01/15 at 2100, Until Discontinued, Routine 2053 (Given - Provider: Nelly Boyd RN) 0808 (Given - Provider: Priti Duke RN) gentamicin (GARAMYCIN) 261 mg in sodium chloride 0.9% 106.525 mL (COMPLETED) 261 mg, Intravenous, COURT LIAISON TO O.R., 1 dose, On Sun06/01/15 at 1115, Administer over 60 Minutes, Day of Surgery (Day of Procedure), Indication for (Active or Suspected): Prophylaxis 1211 (Given - Provider: Rainer Yi MD) Continuous Medication Order 05/31/2015 06/01/2015 06/02/2015 lactated ringers infusion 1,000 mL (CANCELED) 1,000 mL, at 100 mL/hr, Intravenous, CONTINUOUS, Starting on Sun06/01/15 at 1115, Until Sun06/01/15 at 1525, Day of Surgery (Day of Procedure) 1127 (New Bag - Provider: Brandie Yi MD)1348 (Anesthesia Volume Adjustment - Provider: Rainer Yi MD)1354 (New Bag - Provider: Rainer Yi MD)1419 (Anesthesia Volume Adjustment - Provider: Rainer Yi MD) sodium chloride 0.9% infusion (CANCELED) 100 mL/hr, Intravenous, CONTINUOUS, Starting on Sun06/01/15 at 1545, Until Sun06/02/15 at 0832, Recovery (Recovery-Hospital Unit) 1530 (New Bag - Provider: Janene Walsh RN)2348 (New Bag - Provider: Nelly Boyd RN) PRN Medication Order 05/31/2015 06/01/2015 06/02/2015 BUpivacaine (PF) (MARCAINE) 0.5 % (5 mg/mL) injection (CANCELED) ONCE PRN, Starting on Sun06/01/15 at 1429, Until Sun06/01/15 at 1611, Intra-Operative (Intra-Procedure), Routine 1429 (Given - Provider: Darius Nuñez Jr., MD - Comment: mixed 1:1 with 1% Xylocaine w/epinephrine [id number]) HYDROmorphone (DILAUDID) syringe 0.2-0.4 mg (CANCELED) 0.2-0.4 mg, Intravenous, EVERY 5 MIN PRN, Pain, Starting on Sun06/01/15 at 1359, Until Sun06/01/15 at 1611, For moderate pain (4-6) give: 0.2 mg every 5 minute prn For severe pain (7-10) give: 0.4 mg every 5 minutes prn Maximum dose: 4 mg per hour Hold for respiratory rate less than 10 per minute., PACU Recovery 1457 (Given - Provider: Nunu Walsh RN)1513 (Given - Provider: Nunu Walsh RN)1527 (Given - Provider: Nunu Walsh RN)1550 (Given - Provider: Nunu Walsh RN) HYDROmorphone (DILAUDID) tablet 2 mg (CANCELED)(Linked Group 1) 2 mg, Oral, EVERY 4 HOURS PRN, Starting on Sun06/01/15 at 1526, Until Sun06/02/15 at 1502, Pain, for mild pain (1-3), May give an additional 2 mg once if pain not relieved in 30-60 minutes., Routine 1848 (See Alternative - Provider: Priti Duke RN)2347 (Given - Provider: Nelly Boyd RN) HYDROmorphone (DILAUDID) tablet 4 mg (CANCELED)(Linked Group 1) 4 mg, Oral, EVERY 4 HOURS PRN, Starting on Sun06/01/15 at 1526, Until Sun06/02/15 at 1502, Pain, for moderate pain (4-6), May give an additional 2 mg once if pain not relieved in 30-60 minutes., Routine 1848 (Given - Provider: Priti Duke RN)2347 (See Alternative - Provider: Nelly Boyd RN) iohexol (OMNIPAQUE) 300 mg/mL solution (CANCELED) ONCE PRN, Starting on Sun06/01/15 at 1300, Until Sun06/01/15 at 1611, Intra-Operative (Intra-Procedure), Routine 1300 (Given - Provider: Darius Nuñez Jr., MD - Comment: mixed 1:1 with NaCl) lidocaine-EPINEPHrine 1 %-1:200,000 injection (CANCELED) ONCE PRN, Starting on Sun06/01/15 at 1429, Until Sun06/01/15 at 1611, Intra-Operative (Intra-Procedure), Routine 1429 (Given - Provider: Darius Nuñez Jr., MD - Comment: mixed 1:1 w/ .5% Bupivacaine) oxybutynin (DITROPAN-XL) CR tablet 5 mg 5 mg, Oral, DAILY PRN, Starting on Sun06/02/15 at 1101, Until Sun06/02/15 at 1129, urinary frequency, bladder spasms, Swallow whole; Do not crush, Routine oxybutynin (DITROPAN-XL) CR tablet 5 mg (CANCELED) 5 mg, Oral, DAILY PRN, Starting on Sun06/02/15 at 1153, Until Sun06/02/15 at 1502, bladder spasms, Swallow whole; Do not crush, STAT 1225 (Given - Provid er: Priti Duke RN) Linked Groups Order Group 1: HYDROmorphone (DILAUDID) tablet 2 mg (CANCELED)Jump to med 2 mg, Oral, EVERY 4 HOURS PRN, Starting on Sun06/01/15 at 1526, Until Sun06/02/15 at 1502, Pain, for mild pain (1-3), May give an additional 2 mg once if pain not relieved in 30-60 minutes., Routine Or HYDROmorphone (DILAUDID) tablet 4 mg (CANCELED)Jump to med 4 mg, Oral, EVERY 4 HOURS PRN, Starting on Sun06/01/15 at 1526, Until Sun06/02/15 at 1502, Pain, for moderate pain (4-6), May give an additional 2 mg once if pain not relieved in 30-60 minutes., Routine Or HYDROmorphone (DILAUDID) tablet 6 mg (CANCELED) 6 mg, Oral, EVERY 4 HOURS PRN, Starting on Sun06/01/15 at 1526, Until Sun06/02/15 at 1502, Pain, for severe pain (7-10), May give an additional 2 mg once if pain not relieved in 30-60 minutes., Routine documented in this encounter Care Teams Manager Labor Relations Relationship Specialty Start Date End Date Latanya Newberry MD [facility] [address] [place] [address] [place] [address] PCP - General 08/27/13 11/01/15 documented as of this encounter
--- OUTSIDE RECORDS SUMMARY | 2024-10-16 17:43 | XMS_ITS | Encounter Summary ---
Author Organization [facility] [place] [address] Care Team Providers Care Stator Tester Name Role Phone Latanya Wade MD Primary Care Provider [phone] Reason for Visit * Reason Comments Nephrolithiasis Encounter Details Date Type Department Care Team (Latest Contact Info) Description 04/06/2015 3:20 PM EDT [place] [address] Darius Nuñez Jr., MD [facility] [place] [address] Right nephrolithiasis Discharge Disposition: Home Social History Tobacco [...] Taken Comments Blood Pressure - - Pulse 83 04/06/2015 3:37 PM EDT Temperature - - Respiratory Rate - - Oxygen Saturation 96% 04/06/2015 3:37 PM EDT Inhaled Oxygen Concentration - - Weight 89.8 kg (198 lb) 04/06/2015 3:37 PM EDT Height 160 cm (5' 3) 04/06/2015 3:37 PM EDT Body Mass Index 35.07 04/06/2015 3:37 PM EDT documented in this encounter Progress Notes * Darius Nuñez Jr., MD - 04/06/2015 3:52 PM EDT HPI: Vianney Saini is a 39 y.o. woman who presents for urologic consultation regarding urolithiasis. She has a prior history of urolithiasis, with a stone in 2005 requiring SWL. Her most recent episode of renal colic began approximately 3 weeks month ago, at which time there was acute onset pain, 10/10 in severity, right flank and RLQ in location, sharp in nature, 1 day in duration. She notes after a BM it fully abated and has not recurred. She currently denies LUTS or flank pain, but isPOD1 s/p paraesophageal hernia repair and has postop abdominal discomfort. Review of Systems Constitution: Negative for chills and fever. Hematologic/Lymphatic: Negative for bleeding problem. Does not bruise/bleed easily. Gastrointestinal: Positive for abdominal pain (postop). Genitourinary: Positive for flank pain (intermittent). Negative for hematuria. All other systems reviewed and are negative. PMHx: nephrolithiasis PSHx: D&C; tonsillectomy; right SWL; paraesophageal hernia repair FamHx: cousin with family h/o urolithiasis SocHx: no tobacco; no EtOH Physical Exam Constitutional: She appears well-developed and well-nourished. No distress. HENT: Head: Normocephalic and atraumatic. Cardiovascular: Normal rate. Pulmonary/Chest: Effort normal. No respiratory distress. Abdominal: Soft. She exhibits distension (mild distension). There is tenderness (mild fabiana-incisional tenderness). There is no rebound and no guarding. Genitourinary: No CVA tenderness to percussion bilaterally Neurological: She is alert. Skin: She is not diaphoretic. Psychiatric: She has a normal mood and affect. Her behavior is normal. Vitals reviewed. Imaging Studies: I independently reviewed the Limited renal US from 01/27/15. This suggests right nephrocalcinosis as well as a 1.8 cm non-obstructing right renal pelvic stone Impression/Plan: Non-obstructing, currently asymptomatic right renal stone We reviewed at length management options, including watchful waiting, shock wave lithotripsy, ureteroscopy, and percutaneous nephrolithotomy. We additionally discussed the relative risks, benefits, stone-free success rate, and limitations of each. For now she wishes to recover from her recent surgery and declines surgical intervention for stone at this time. She would like to return for re-evaluation in 4-6 weeks, at which time we will obtain stone protocol CT to better assess stone burden and distribution. She has been instructed to call or return in the interval if new signs or symptoms of stone passage/renal colic should develop. documented in this encounter Plan of Treatment Upcoming Encounters Date Type Department Care Team (Late st Contact Info) Description 12/31/2024 10:00 AM EST Office [place] [address] Mercy Amanda MD [facility] [address] [facility] [address] 04/01/2025 2:00 PM EDT Office [place] [address] Erum Szymanski MD [facility] [address] documented as of this encounter Results * CT abdomen & pelvis WO contrast (05/04/2015 9:37 AM EDT) Anatomical Region Laterality Modality Abdomen, Pelvis Computed Tomogra phy 05/04/2015 9:37 AM EDT Impressions 05/04/2015 9:51 AM EDT IMPRESSION: 11 mm right renal pelvis calculus. Narrative 05/04/2015 9:51 AM EDT EXAMINATION: CT Abdomen / Pelvis Without Contrast CLINICAL HISTORY: ? right renal stone TECHNIQUE: Helical CT of the abdomen and pelvis was performed without the use of intravenous contrast COMPARISON: None FINDINGS: Right kidney: 11 mm oval renal stone in right renal pelvis. Mild right pelviectasis.. Left kidney: No collecting system dilation, no calculi. ?? Bladder: No intravesicular calcifications. This examination is limited for the evaluation of solid organs and vasculature structures due to the lack of intravenous contrast. ??Unenhanced images of the liver, spleen, pancreas, and adrenal glands are within normal limits. Lymph Nodes: No lymphadenopathy Bowel: No bowel dilatation or inflammatory changes. Peritoneum/mesentery: No free fluid, free air, or focal collection. Osseous structures: No suspicious lesions. Procedure Note Clovis Delong MD - 05/04/2015 EXAMINATION: CT Abdomen / Pelvis Without Contrast CLINICAL HISTORY: ? right renal stone TECHNIQUE: Helical CT of the abdomen and pelvis was performed without theuse of intravenous contrast COMPARISON: None FINDINGS: Right kidney: 11 mm oval renal stone in right renal pelvis. Mild right pelviectasis.. Left kidney: No collecting system dilation, no calculi. Bladder: No intravesicular calcifications. This examination is limited for the evaluation of solid organs andvasculature structures due to the lack of intravenous contrast. Unenhanced images ofthe liver, spleen, pancreas, and adrenal glands are within normal limits. Lymph Nodes: No lymphadenopathy Bowel: No bowel dilatation or inflammatory changes. Peritoneum/mesentery: No free fluid, free air, or focal collection. Osseous structures: No suspicious lesions. IMPRESSION IMPRESSION: 11 mm right renal pelvis calculus. Darius Nuñez Jr., MD IMG CT ORDERABLES documented in this encounter Visit Diagnoses Diagnosis Right nephrolithiasis Right nephrolithiasis documented in this encounter Care Teams Stator Tester Relationship Specialty Start Date End Date Latanya Wade MD [facility] [address] [place] [address] [place] [address] PCP - General 08/27/13 11/01/15 documented as of this encounter
--- OUTSIDE RECORDS SUMMARY | 2024-10-16 17:43 | XMS_ITS | Encounter Summary ---
Author Organization [facility] [place] [address] Care Team Providers Care Compliance Monitor Name Role Phone Latanya Wade MD Primary Care Provider [phone] Reason for Referral * Surgical (Routine) - Closed Specialty Diagnoses / Procedures Referred By Aric madrigal Referred To Contact General Surgery Diagnoses Hiatal hernia Rodgers's esophagus with esophagitis Demi aGge APRN [facility] [place] [address] [facility] [place] [place] Gen Surgery [address] [place] [address] Referral ID Status Reason Start Date Expiration Date V isits Requested Visits Authorized [id number] Closed Consult, Test & Treat 01/28/2015 01/28/2016 3 3 Encounter Details Date Type Department Care Team (Late st Contact Info) Description 01/28/2015 Telephone [place] [address] Demi Gage APRN [facility] [place] [id number] Social History Tobacco Use Types Packs/Day [...] Telephone Encounter - Demi Gage APRN - 01/28/2015 4:53 PM EDT Contacted Mrs Carcamo regarding the results of her EGD that revealed a lg hiatal hernia with 2 erosions, LA grade D esophagitis and normal stomach/duodenum. Path: Rodgers's esophagus but no dysplasia. Discussed the etiology, pathophysiology and treatment of esophagitis. Rodgers's esophagus and hiatal hernia. Recommend increasing Protonix to 40 mg BID. GERD diet and lifestyle modifications. Recommend eating smaller more frequent 5-6 low fat meals per day. Recommend referral to surgery for consultation of hiatal hernia repair and obtain barium swallow before appt. Consider repeating EGD in 3 months but await surgeries recommendations. Her abdominal US revealed: 1. Normal gallbladder. No cholelithiasis. 2. Sub-cm left hepatic lobe cyst. Liver otherwise unremarkable, as is the visualized pancreas. 3. 1.8 cm right renal calculus, within the extrarenal pelvis, no associated hydronephrosis. 4. Diffuse right renal cortical thinning with findings compatible with medullary nephrocalcinosis. Informed patient that I would have review the findings with someone in urology regarding the renal findings and await their recommendations. Will call her back once I hear back. She is amenable to this. I did my best to answer all of her questions. documented in this encounter Plan of Treatment Upcoming Encounters Date Type Department Care Team (Late st Contact Info) Description 12/31/2024 10:00 AM EST Office [place] [address] Mercy Amanda MD [facility] [address] [facility] [address] 04/01/2025 2:00 PM EDT Office [place] [address] Erum Szymanski MD [facility] [place] [address] Scheduled Referrals Name Type Priority Associated Diagnoses Orde r Schedule Referral to General Surgery Outpatient Referral Routine Hiatal hernia Rodgers's esophagus with esophagitis Ordered: 01/28/2015 documented as of this encounter Results * XR Fluoro Barium [...] hernia without mention of obstruction or gangrene Rodgers's esophagus with esophagitis Rodgers's esophagus Hiatal hernia Diaphragmatic hernia without mention of obstruction or gangrene documented in this encounter Care Teams Compliance Monitor Relationship Specialty Start Date End Date Latanya Wade MD [facility] [address] [place] [address] [place] [address] PCP - General 08/27/13 11/01/15 documented as of this encounter
--- OUTSIDE RECORDS SUMMARY | 2024-10-16 17:43 | XMS_ITS | Encounter Summary ---
Author Organization [facility] [address] Care Team Providers Care Projection Engineer Name Role Phone Latanya Newberry MD Primary Care Provider [phone] Encounter Details Date Type Department Care Team (Latest Contact Info) Description 04/05/2015 8:21 AM EDT - 04/06/2015 3:42 PM EDT Hospital Encounter [facility] [address] [place] [address] Valentín Moura MD [facility] [place] [address] Discharge Disposition: Home Social History Tobacco Use [...] Sign Reading Time Taken Comments Blood Pressure 122/68 04/06/2015 1:21 PM EDT Pulse 92 04/06/2015 1:21 PM EDT Temperature 36.7 ??C (98.1 ??F) 04/06/2015 1:21 PM ED T Respiratory Rate 18 04/06/2015 1:21 PM EDT Oxygen Saturation 97% 04/06/2015 1:21 PM EDT Inhaled Oxygen Concentration - - Weight 90.2 kg (198 lb 12.8 oz) 04/05/2015 8:41 AM EDT Height 160 cm (5' 3) 04/05/2015 8:41 AM EDT Body Mass Index 35.22 04/05/2015 8:41 AM EDT documented in this encounter Discharge Summaries * Erik Rivera Radha - 04/06/2015 11:50 AM EDT General Surgery Discharge Summary Primary Diagnosis: GERD/Paraesophageal hernia Secondary Diagnosis: Patient Active Problem List Diagnosis Code ??? Elbow pain, right 719.42 ??? Dyspepsia 536.8 ??? 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 Hiatal hernia 553.3 ??? Obesity 278.00 Operations and Procedures: Procedure(s) with comments: LAPAROSCOPIC ROSY FUNDOPLASTY - H&P BY PCP MODIFIER, HIATAL HERNIA Surgeons: Surgeon(s) and Role: * Valentín Moura MD - Primary * Chrystal Damon MD - Fellow History of Present Illness: Vianney Carcamo is a 39-year-old female referred by Demi Gage and Dr. Brandt Barlow for evaluation of possible surgery for a large hiatal hernia and acid reflux. She states that she has had acid reflux for many years which has been poorly controlled on medical therapyalthough more recently she has been taking Protonix twice a day which has helped quite a bit. She has had an upper GI ends copy on January 27, 2015 which was consistent with a large hiatal hernia as well as LA grade D esophagitis. She had a followup to that endoscopy with a barium swallow. This showsa large hiatal hernia with roughly one-third of the stomach above the diaphragm. It appears to be atype 3 paraesophageal hernia. She has not had any prior abdominal surgery. She complains of significant reflux, some occasional trouble swallowing but not a major component for her. Mostly it is the reflux that is improved on medical therapy but still remains quite symptomatic. She presented for elective paraesophageal hernia repair and Rosy fundoplication. Hospital Course: Vianney Saini is a 39 y.o. female who was admitted on 04/05/2015 postoperatively after a Laparoscopic Rosy Fundoplication. Operative course was uneventful, please see operative note for further detail. Postoperative she received a post-Rosy clear liquid diet and a AUTOMOTIVE SERVICE CASHIER for pain control. she received subcutaneous heparin for DVT prophylasix. On POD#1 her diet was advanced to post-Rosy full liquids, which was tolerated well. The solicitor patent provided education for a post-Rosy diet on discharge. she was changed to oral pain medications and AUTOMOTIVE SERVICE CASHIER was discontinued on POD#1. The chirinos catheter was removed on POD#1 and she was voiding without difficulty. On POD#1 the dressing was dry and intact and the wound was benign. Prior to discharge on POD#1 Vianney Saini was afebrile, with stable vital signs. On POD#1, was discharged to home in stable condition. Vital Signs Last value Range last 24hrs Temperature Temp: 36.8 ??C (98.2 ??F) Temp: [36.3 ??C (97.3 ??F)-37 ??C (98.6 ??F)] Heart Rate Heart Rate: 58 Heart Rate: [58-75] Blood Pressure BP: 147/69 mmHg BP: (121-162)/(63-92) Respiratory Rate Resp: 16 Resp: [11-17] SpO2 SpO2: 95 % SpO2: [91 %-100 %] Pertinent Lab Data: No results for input(s): WBC, HGB, HCT, PLATELET, PT, INR, PTT in the last 72 hours. No results for input(s): NA, K, CL, CO2, BUN, CREATININE, GLUCOSE, CALCIUM, MAGNESIUM, PHOS in the last 72 hours. Physical Exam: General: NAD, resting comfortably, pleasant, conversant HEENT: Anicteric sclerae CVS: Reg Pulm: non-labored Abd: soft, nontender, non-distended, port site incisions clean, dry and intact Skin: warm, dry Ext: no c/c/e Neuro: Nonfocal,moving all four extremities spontaneously Imaging: NA Condition at discharge: Stable Mental Status: awake and alert, oriented x 3 Medications: Your Medications New Medications Dose Details diphenhydrAMINE 50 mg/mL Soln Commonly known as: BENADRYL Inject 0.5 mLs into the vein every 6 hours as needed for Itching. 25 mg Quantity: 10 mL Refills: 0 HYDROmorphone 1 mg/mL Liqd Commonly known as: DILAUDID Take 2-4 mLs by mouth every 3 hours as needed. 2-4 mg Quantity: 210 mL Refills: 0 Continued medications, unchanged Dose Details Flspppchsiprm-Xtduigxi-Xgyxcx Tab Take by mouth. Refills: 0 STOPPED Medications pantoprazole 40 mg Tbec Commonly known as: PROTONIX Disposition: Home Allergies: Allergies Allergen Reactions ??? Oxycodone Nausea And Vomiting Outpatient Services/Studies: No discharge procedures on file. Scheduled Appointments: Future Appointments Provider Department Dept Phone 04/06/2015 3:20 PM Darius Nuñez Jr., MD Urology [phone] Instructions Given to Patient at Discharge: Patient Instructions Call your doctor if you develop: Fever greater than 101.3 degrees Farenheit (38.5 degrees Celcius), chills, nausea or vomiting. Alsocall if you develop severe pain not relieved by your prescribed oral pain medicine. CALL THE GENERAL SURGERY CLINIC DURING WORKING HOURS AT , OR CALL AFTERCLINIC HOURS, WEEKENDS AND HOLIDAYS: ASK FOR THE GENERAL SURGERY RESIDENT FUEL TESTING TECHNICIAN IF ANY OF THE ABOVE OCCUR. Activity level: Increase your activity slowly. You may tire easily, so frequent rest periods may be necessary. Do not lift more than 10 pounds for 4 weeks. Walk three times a day. Use common sense. Don't exhaust yourself. Diet: You should follow a post Rosy diet, as instructed by the solicitor patent in the hospital for a period of approximately 3 weeks. The main purpose of this diet is to have you consume foods that will slide easily down into your stomach. Most foods when well chewed should pass through the esophagus and into your stomach. However, patients do not always chew foods well enough. Slow, thorough chewing isrecommended. Moistening foods with sauce, gravy, syrup or other liquids can be helpful. You should consume only very soft, small particle foods. You should not eat bread or drink carbonated beverages. You should start with more bland foods and if these are tolerated you may increase the amount of spice in your food. If you find there are foods that don't agree with you, try these sparingly until y ou can tolerate them. You need to remain in an upright position for 30-60 minutes after you eat. You may find that you need to eat smaller meals with frequent between meal snacks to get enough calories. Pills: Please crush all pills for 4 weeks. Pain: Roxicodone elixir for pain, as directed. Driving: Do not drive while taking narcotic pain medications such as Roxicodone. Shower/Bath: You may shower and let water run over wound 48 hours after your surgery. No soaking baths or swimming for 2 weeks from surgery. Wound Care: Once showering, wash your incision(s) daily with soap and rinse well, pat dry. Assess for any signsof infection such as increased redness, pain, warmth or drainage. The Steri-Strips will fall off in7-10 days. The brown bandaids can be removed at any time. Follow-up: You have a follow-up appointment scheduled to see Dr. Moura at the [facility] [employer] [facility] You will receive a letter in the mail confirming the appointment date and time. Your follow-up is very important to us. Please call [phone] if you do not hear from us within 7 days of discharge or if you need to change the appointment date/time. General Instructions None Future Appointments Provider Department Dept Phone 04/06/2015 3:20 PM Darius Nuñez Jr., MD Urology [phone] Signed: Erik Rivera MD 04/06/2015 Primary Marisela Physician: LATANYA NEWBERRY MD [facility] [address] [place] [address] / [facility] * documented in this encounter Discharge Instructions * Patient Instructions* Chrystal Damon MD - 04/05/2015 8:52 AM EDT Call your doctor if you develop: Fever greater than 101.3 degrees Farenheit (38.5 degrees Celcius), chills, nausea or vomiting. Alsocall if you develop severe pain not relieved by your prescribed oral pain medicine. CALL THE GENERAL SURGERY CLINIC DURING WORKING HOURS AT , OR CALL AFTERCLINIC HOURS, WEEKENDS AND HOLIDAYS: ASK FOR THE GENERAL SURGERY RESIDENT FUEL TESTING TECHNICIAN IF ANY OF THE ABOVE OCCUR. Activity level: Increase your activity slowly. You may tire easily, so frequent rest periods may be necessary. Do not lift more than 10 pounds for 4 weeks. Walk three times a day. Use common sense. Don't exhaust yourself. Diet: You should follow a post Rosy diet, as instructed by the solicitor patent in the hospital for a period of approximately 3 weeks. The main purpose of this diet is to have you consume foods that will slide easily down into your stomach. Most foods when well chewed should pass through the esophagus and into your stomach. However, patients do not always chew foods well enough. Slow, thorough chewing isrecommended. Moistening foods with sauce, gravy, syrup or other liquids can be helpful. You should consume only very soft, small particle foods. You should not eat bread or drink carbonated beverages. You should start with more bland foods and if these are tolerated you may increase the amount of spice in your food. If you find there are foods that don't agree with you, try these sparingly until y ou can tolerate them. You need to remain in an upright position for 30-60 minutes after you eat. You may find that you need to eat smaller meals with frequent between meal snacks to get enough calories. Pills: Please crush all pills for 4 weeks. Pain: Roxicodone elixir for pain, as directed. Driving: Do not drive while taking narcotic pain medications such as Roxicodone. Shower/Bath: You may shower and let water run over wound 48 hours after your surgery. No soaking baths or swimming for 2 weeks from surgery. Wound Care: Once showering, wash your incision(s) daily with soap and rinse well, pat dry. Assess for any signsof infection such as increased redness, pain, warmth or drainage. The Steri-Strips will fall off in7-10 days. The brown bandaids can be removed at any time. Follow-up: You have a follow-up appointment scheduled to see Dr. Moura at the [facility] [employer] [facility] You will receive a letter in the mail confirming the appointment date and time. Your follow-up is very important to us. Please call [phone] if you do not hear from us within 7 days of discharge or if you need to change the appointment date/time. documented in this encounter Medications at Time of Discharge Medication Sig Dispensed Refills Start Date End Date diphenhydrAMINE (BENADRYL) 50 mg/mL Solution Inject 0.5 mLs into the vein every 6 hours as needed for Itching. 10 mL 04/06/2015 12/13/2015 HYDROmorphone (DILAUDID) 1 mg/mL Liquid Take 2-4 mLs by mouth every 3 hours as needed. 210 mL 0 04/06/2015 06/02/2015 Tsdudnayrkzkm-Qdzxyvpc-Bg tein Tablet Take by mouth. 07/30/2015 documented as of this encounter Progress Notes * Simi Obando RN - 04/06/2015 12:10 PM EDT Simi Obando RN Case Manager pager [phone] Record reviewed and patient discussed with multidisciplinary team. No discharge needs identified atthis time. CRC remains available as needed for coordination of care and discharge planning. * Berkley French DT - 04/06/2015 11:33 AM EDT Nutrition Services - Education Note Vianney Saini : 1975 AGE: 39 y.o. MedDx/PMHx: Rosy Reason for Nutrition Intervention: Consult Diet Order: Rosy Appetite: Poor Food allergies: NKFA Ht Readings from Last 3 Encounters: 04/05/15 160 cm (5' 3) 03/31/15 160 cm (5' 3) 02/23/15 160 cm (5' 3) Wt Readings from Last 3 Encounters: 04/05/15 90.175 kg (198 lb 12.8 oz) 03/31/15 91.899 kg (202 lb 9.6 oz) 02/23/15 94.212 kg (207 lb 11.2 oz) Body mass index is 35.22 kg/(m^2). Education: Rosy dietary guidelines. Verbalized good understanding. Education material, with means of contact provided. Assessment: Patient verbalized good understanding of Rosy guidelines. Highly recommended to follow foods allowed/foods not allowed list. I have provided contact information in case any further questions should arise. Nutrition Plan: Diet: Rosy Encourage good po intake. Monitor weight. Support and encouragement provided. Nutrition services to follow weekly thru hospital course unless consulted in the interim. EDUARDO Corley * Erik Rivera - 04/06/2015 7:21 AM EDT General Surgery Daily Progress Note Vianney Saini 1975 [id number] ID 39 y.o. y/o F POD#1 s/p Lap Rosy 24 Events: No acute events Tolerated clears Chirinos removed this am S: Pain well controlled, denies N/V O: Temp: [36.3 ??C (97.3 ??F)-37 ??C (98.6 ??F)] Heart Rate: [58-75] Resp: [11-17] BP: (121-162)/(63-92) SpO2: [91 %-100 %] Intake/Output Summary (Last 24 hours) at 04/06/15 0721 Last data filed at 04/06/15 0631 Gross per 24 hour Intake 3052 ml Output 1927 ml Net 1125 ml Exam: Gen: NAD CV: Reg Pulm: non-labored Abd: soft, minimal tenderness, non-distended, dressings c/d/i Ext: warm, well perfused, no edema Neuro: A&O x3 No labs or imaging A/P: Vianney Saini POD#1 s/p Lap Rosy. Progressing well post- operatively. Will advance diet this am and aim for discharge later today. N: d/c AUTOMOTIVE SERVICE CASHIER, transition to po liquid pain meds CV: No issues Pulm: OOB to ambulate, encourage IS GI: Advance to post-Rosy fulls this am, home on post-Rosy diet x 3 weeks, ok to stop PPI, to see nutrition consult today : taran removed this am, due to void FEN/Renal: HLIV, good uop Endo: No issues Heme: No issues ID:No issues Prophy: [facility] Dispo: Floor status, likely home later today * Simi Gamez - 04/05/2015 2:20 PM EDT Pt arrived on unit in bed, a/o x 4 but very groggy, vss, significant other at side. * Luzma Hoffmann RN - 04/05/2015 12:55 PM EDT 1217 - Pt arrived to PACU via bed. Monitors placed, alarms set and audible. Generalized rash to patient's chest on arrival. Anesthesia aware but no intervention at this time. 1255 - Pt remains sleepy, simple mask removed. When asked pt rating pain 10/10 scale and falls backasleep quickly. AUTOMOTIVE SERVICE CASHIER teaching provided, pt demonstrated understanding of teaching. documented in this encounter H&P Notes * Chrystal Damon MD - 04/05/2015 9:06 AM EDT HPI: Vianney Saini is a 39 y.o. female who presents for laparoscopic hiatal hernia repair, Rosy fundoplication. Please see Dr. Moura's clinic note dated 02/23/15 for further historical details, copied below. Vianney Carcamo is a 39-year-old female referred [...] with her today, the entire time in ypxo-ph-ifym conversation regarding the pathophysiology of gastroesophageal reflux disease as well as reviewing the results of her barium swallow. I think she would benefit from a hiatal hernia repair and Rosy fundoplication. I mentioned risks of surgery to [...] will give her a date for surgery. Past Medical History Diagnosis Date ??? PTSD (post-traumatic stress disorder) Past Surgical History Procedure Laterality Date ??? Dilation and curettage of uterus 1994 ??? Tonsillectomy ??? Upper gi endoscopy, biopsy N/A 01/27/2015 EGD WITH BIOPSY performed by Brandt Barlow MD at [facility] ENDOSCOPY No current facility-administered medications on file prior to encounter. No current outpatient prescriptions on file prior to encounter. Allergies Allergen Reactions ??? Oxycodone Nausea And Vomiting History Social History ??? Marital Status: Spouse Name: N/A Number of Children: N/A ??? Years of Education: N/A Occupational History ??? Not on file. Social History Main Topics ??? Smoking status: Former Smoker -- 0.50 packs/day for 6 years Types: Cigarettes Quit date: 01/25/1997 ??? Smokeless tobacco: Not on file ??? Alcohol Use: No ??? Drug Use: No ??? Sexual Activity: Not on file Other Topics Concern ??? Not on file Social History Narrative Patient Vitals for the past 24 hrs: BP Temp Temp src Pulse Resp SpO2 Height Weight 04/05/15 0841 140/65 mmHg 36.5 ??C (97.7 ??F) Oral 58 16 99 % 160 cm (5' 3) 90.175 kg (198 lb 12.8oz) PE: Comfortable, in NAD, conversant RRR without murmurs CTAB Abdomen soft, NT, ND. Plan: Vianney Saini is a 39 y.o. female who presents for laparoscopic Rosy fundoplication,hiatal hernia repair. She has no further questions and agrees to proceed. documented in this encounter Miscellaneous Notes * Plan of Care - Mi Martinez RN - 04/06/2015 5:33 AM EDT Problem: General Plan of Care Goal: Plan of Care Review Outcome: Ongoing (Interventions Implemented as Appropriate) 04/06/15 0525 Plan of Care Review Plan of Care Outcome Status ongoing (interventions implemented as appropriate) Progress improving Coping/Psychosocial Response Interventions Plan of Care Reviewed with patient OUTCOME EVALUATION NOTE: OUTCOME SUMMARY: Ms Saini's pain has maury controlled to within tolerable levels by dilaudid PCAaand prn ketorelac. She has c/o itching intermittently through the night. No rash or hives noted, noevidence of respiratory distress. Given benadryl 25 mg IV x2, at approx 22-00and 2400. Then at 0200ptagain c/o itching. Dr. Wen notified, and stopped by to see pt. After examining and discussing with pt no changes in pain med regimen made, and order given to give another dose of benadryl. PLAN MOVING FORWARD: Franklin chirinos this AM, saline lock IV, advance rosy diet, dc dilaudid AUTOMOTIVE SERVICE CASHIER asnd begin po pain meds, dc home. INDIVIDUALIZED FALL PREVENTION: Assistance: Pt is able to call appropriately if she needs assistance. Supervision: Up with one light assist Surveillance: puse oximetry, hourly purposeful rounding CPG GOAL OUTCOME EVALUATION: Goal: Individualization and Mutuality Outcome: Ongoing (Interventions Implemented as Appropriate) Goal: Fall Prevention-Safe Patient Handling Outcome: Ongoing (Interventions Implemented as Appropriate) 04/06/15 05 Safety Interventions Safety Precautions/Fall Reduction fall reduction program maintained Goal: Infection Control Outcome: Ongoing (Interventions Implemented as Appropriate) 04/06/15524 Safety Interventions Isolation Precautions standard precautions maintained Goal: Discharge Needs Assessment Outcome: Ongoing (Interventions Implemented as Appropriate) 04/06/15524 Discharge Needs Assessment Concerns to be Addressed no discharge needs identified Readmission Within the Last 30 Days no previous admission in last 30 days Equipment Needed After Discharge none Discharge Facility/Level of Care Needs (home) Discharge Planning Comments (none) Current Health Anticipated Changes Related to Illness none Self-Care Equipment Currently Used at Home none Living Environment Transportation Available family or friend will provide * Op Note - Valentín Moura MD - 04/05/2015 12:04 PM EDT [facility] [place] Patient Name: Vianney Saini : [id number] MR#: [id number] Case Date: 04/05/2015 Surgeon: Surgeon(s) and Role: * Valentín Moura MD - Primary * Chrystal Damon MD - Fellow Preoperative diagnosis: GERD AND HIATAL HERNIA Postoperative diagnosis: GERD AND HIATAL HERNIA Procedure(s): LAPAROSCOPIC ROSY FUNDOPLASTY MODIFIER, HIATAL HERNIA Indications for Procedure: The patient is a 39-year-old female with long- standing history of gastroesophageal reflux disease. Following appropriate preoperative evaluation and review of her therapeutic options, she has elected to undergo a laparoscopic Rosy fundoplication. Operative Findings: The patient was noted to have a large hiatal hernia and a modest amount of paraesophageal scarring. She underwent a 3-stitch, 2.5-cm fundoplication performed over a 60-Palestinian bougie. There were no intraoperative complications. Details of Operation: The patient was brought to the Operating Room and placed in the supine position. Following uneventful induction of general endotracheal anesthesia, a Chirinos catheter was placed, as well as Venodyne stockings, and an orogastric tube. Her legs were then spread using the straight-leg extensions. The abdomen was prepped and draped in the usual sterile fashion. A small incision was made at the base of the umbilicus followed by insertion of a Veress needle into the peritoneal cavity. A pneumoperitoneum to 15- mmHg pressure was obtained without difficulty. The first trocar was a10-mm trocar placed 15 cm inferior to the xiphoid just left of midline. Through this, a 45-degree la paroscope was inserted. All remaining trocars were inserted under direct visualization. The next trocar was a 10-mm trocar placed 10 cm along the left costal margin. The next trocar was a 5-mm trocarplaced 20 cm along the left costal margin. The next trocar was a 5-mm trocar placed midway between the left lateral trocar and the umbilicus. The next trocar was a 10-mm trocar placed 10 cm along theright costal margin. Through this, an expandable fan retractor was positioned below the left lobe of the liver which was then retracted cephalad and held in place using mechanical arm. The next trocar was a 5-mm trocar placed in the right epigastrium. With the surgeon standing between the patient'slegs, the epiphrenic fat pad was grasped and retracted inferiorly to the patient's left, placing the hepatogastric omentum on stretch which was then divided using the harmonic scalpel. A blunt plane was developed between the right ricardo of the diaphragm and the esophagus. Multiple cardiophrenic attachments were then taken down in the region of the angle of His. We then mobilized the fundus of the s tomach by beginning approximately one-half the way down the greater curvature of the stomach. All short gastric vessels and posterior gastric attachments were divided up to the angle of His. We then developed a posterior esophageal window under direct visualization and the anterior and posterior vagus nerves were left adherent to the wall of the esophagus. The esophagus was then encircled using a Winifred which was held in place using Endoloop. Further paraesophageal dissection was performed until we had obtained approximately 3 cm of tension- free intraabdominal esophagus. At this point, the diaphragmatic hiatus was approximated using interrupted sutures of 0 Nurolon tied over Yosvany pledgets. We then wrapped the stomach posterior to the esophagus and a 60-Palestinian bougie was passed by Anesthesiology down the esophagus into the stomach without complication. With the bougie in place, a 3- stitch, 2.5-cm fundoplication was performed. Each bite of the fundoplication included fundus, esophagus, and fundus. Care was taken to avoid injury to the anterior vagus nerve with the esophageal suture bites. Following completion of the fundoplication, the bougie was removed. The abdomen was irrigated. Excellent hemostasis was assured. The Winifred drain was cut and removed. The liver retractor wasreleased and removed. All trocars were removed under direct visualization and hemostasis was assured at the insertion site. The pneumoperitoneum was evacuated. All trocar sites were closed at the skin level using a running subcuticular closure of 4-0 Vicryl followed by Steri-Strips, followed by Band-Aids. Overall, the patient tolerated the procedure well and was taken to the recovery room postoperatively in stable condition. Attestation: Case Date: 04/05/2015 I performed this procedure without the involvement of a resident. Valentín Moura MD 04/05/2015 * Brief Op Note - Valentín Moura MD - 04/05/2015 12:01 PM EDT Brief Operative Note Patient Name: Vianney Saini : [id number] MR#: [id number] Case Date: 04/05/2015 Surgeon: Surgeon(s) and Role: * Valentín Moura MD - Primary * Chrystal Damon MD - Fellow Preoperative diagnosis: GERD AND HIATAL HERNIA Postoperative diagnosis: GERD AND HIATAL HERNIA Procedure(s): LAPAROSCOPIC ROSY FUNDOPLASTY MODIFIER, HIATAL HERNIA Anesthesia: General Findings: large hiatal hernia Complications: none Fluids: 1500cc Estimated Blood Loss: 7cc Drains: none Disposition: pacu Condition: stable Attestation: Case Date: 04/05/2015 Indications for Procedure: The patient is a 39-year-old female with long- standing history of gastroesophageal reflux disease. Following appropriate preoperative evaluation and review of her therapeutic options, she has elected to undergo a laparoscopic Rosy fundoplication. Operative Findings: The patient was noted to have a large hiatal hernia and a modest amount of paraesophageal scarring. She underwent a 3-stitch, 2.5-cm fundoplication performed over a 60-Palestinian bougie. There were no intraoperative complications. Details of Operation: The patient was brought to the Operating Room and placed in the supine position. Following uneventful induction of general endotracheal anesthesia, a Chirinos catheter was placed, as well as Venodyne stockings, and an orogastric tube. Her legs were then spread using the straight-leg extensions. The abdomen was prepped and draped in the usual sterile fashion. A small incision was made at the base of the umbilicus followed by insertion of a Veress needle into the peritoneal cavity. A pneumoperitoneum to 15- mmHg pressure was obtained without difficulty. The first trocar was a10-mm trocar placed 15 cm inferior to the xiphoid just left of midline. Through this, a 45-degree la paroscope was inserted. All remaining trocars were inserted under direct visualization. The next trocar was a 10-mm trocar placed 10 cm along the left costal margin. The next trocar was a 5-mm trocarplaced 20 cm along the left costal margin. The next trocar was a 5-mm trocar placed midway between the left lateral trocar and the umbilicus. The next trocar was a 10-mm trocar placed 10 cm along theright costal margin. Through this, an expandable fan retractor was positioned below the left lobe of the liver which was then retracted cephalad and held in place using mechanical arm. The next trocar was a 5-mm trocar placed in the right epigastrium. With the surgeon standing between the patient'slegs, the epiphrenic fat pad was grasped and retracted inferiorly to the patient's left, placing the hepatogastric omentum on stretch which was then divided using the harmonic scalpel. A blunt plane was developed between the right ricardo of the diaphragm and the esophagus. Multiple cardiophrenic attachments were then taken down in the region of the angle of His. We then mobilized the fundus of the s tomach by beginning approximately one-half the way down the greater curvature of the stomach. All short gastric vessels and posterior gastric attachments were divided up to the angle of His. We then developed a posterior esophageal window under direct visualization and the anterior and posterior vagus nerves were left adherent to the wall of the esophagus. The esophagus was then encircled using a Winifred which was held in place using Endoloop. Further paraesophageal dissection was performed until we had obtained approximately 3 cm of tension- free intraabdominal esophagus. At this point, the diaphragmatic hiatus was approximated using interrupted sutures of 0 Nurolon tied over Yosvany pledgets. We then wrapped the stomach posterior to the esophagus and a 60-Palestinian bougie was passed by Anesthesiology down the esophagus into the stomach without complication. With the bougie in place, a 3- stitch, 2.5-cm fundoplication was performed. Each bite of the fundoplication included fundus, esophagus, and fundus. Care was taken to avoid injury to the anterior vagus nerve with the esophageal suture bites. Following completion of the fundoplication, the bougie was removed. The abdomen was irrigated. Excellent hemostasis was assured. The Winifred drain was cut and removed. The liver retractor wasreleased and removed. All trocars were removed under direct visualization and hemostasis was assured at the insertion site. The pneumoperitoneum was evacuated. All trocar sites were closed at the skin level using a running subcuticular closure of 4-0 Vicryl followed by Steri-Strips, followed by Band-Aids. Overall, the patient tolerated the procedure well and was taken to the recovery room postoperatively in stable condition. (Please see the Surgical Encounter Summary for any Implant and Specimen details pertinent to this patient.) documented in this encounter Plan of Treatment Upcoming Encounters Date Type Department Care Team (Late st Contact Info) Description 12/31/2024 10:00 AM EST [place] [address] Mercy Amanda MD [facility] [address] [place] [address] 04/01/2025 2:00 PM EDT Office [place] [address] Erum Szymanski MD [facility] [place] [address] documented as of this encounter Procedures Procedure Name Priority Date/Time Associated Diagnosis Comments ECG SCAN 04/07/2015 12:00 AM EDT MODIFIER, HIATAL HERNIA 04/05/20 15 9:38 AM EDT GERD AND HIATAL HERNIA LAPAROSCOPIC ROSY FUNDOPLASTY (WRVU 18.1) 04/05/2015 9:38 AM EDT GERD AND HIATAL HERNIA documented in this encounter Results * SCAN DOC: ECG (04/07/2015 12:00 AM EDT) Scanning Provider MEDIA MGR SCAN EXT O RDR/RSLT documented in this encounter Visit Diagnoses Diagnosis Ulnar neuropathy at elbow of right upper extremity Hiatal hernia Diaphragmatic hernia without mention of obstruction or gangrene Obesity Obesity, unspecified documented in this encounter Administered Medications Inactive Administered Medications - up to 3 most recent administrations Medication Order MAR Action Action Date Dose Rate Site citric acid-sodium citrate (BICITRA) oral solution 30 mL 30 mL, Oral, ONCE, 1 dose, On Sun04/05/15 at 0945, Day of Surgery (Day of Procedure), Routine Given 04/05/2015 9:34 AM EDT 30 mLs diphenhydrAMINE (BENADRYL) injection 25 mg 25 mg, Intravenous, EVERY 30 MIN PRN, 2 doses, Starting on Sun04/05/15 at 1419, Until Sun04/05/15 at 2342, Itching, May repeat dose in 30 minutes if pruritis not relieved. Per AUTOMOTIVE SERVICE CASHIER order, Recovery (Recovery-Hospital Unit), Routine Given 04/05/2015 11:42 PM EDT 25 mg Given 04/05/2015 10:18 PM EDT 25 mg diphenhydrAMINE (BENADRYL) injection 25 mg 25 mg, Intravenous, EVERY 6 HOURS PRN, Starting on Sun04/06/15 at 0414, Until Sun04/06/15 at 1744, Itching, Routine Given 04/06/2015 4:21 AM EDT 25 mg heparin (porcine) subcutaneous injection 5,000 Units 5,000 Units, Subcutaneous, EVERY 8 HOURS SCHEDULED, First dose on Sun04/05/15 at 1445, Until Discontinued, Routine Given 04/06/2015 6:34 AM EDT 5,000 Units Abdominal Tissue Given 04/05/2015 9:49 PM EDT 5,000 Units A bdominal Tissue Given 04/05/2015 3:03 PM EDT 5,000 Units HYDROmorphone (DILAUDID) 1 mg/mL AUTOMOTIVE SERVICE CASHIER 30 mL Intravenous, AUTOMOTIVE SERVICE CASHIER ONLY, Starting on Sun04/05/15 at 1300, Until Sun04/06/15 at 0701, Recovery (Recovery-Hospital Unit) New Syringe/Cartridge 04/05/2015 12:48 PM EDT HYDROmorphone (DILAUDID) oral liquid 2-4 mg 2-4 mg, Oral, EVERY 3 HOURS PRN, Starting on Sun04/06/15 at 0700, Until Sun04/06/15 at 1744, Pain, For pain level 0-4 give 2 mg; For pain level 5-10 give 4 mg;, Routine Given 04/06/2015 11:33 AM EDT 4 mg Given 04/06/2015 7:56 AM EDT 4 mg ketorolac (TORADOL) injection 15 mg 15 mg, Intravenous, EVERY 6 HOURS PRN, Starting on Sun04/05/15 at 1237, Until Sun04/06/15 at 1744, Pain, for MODERATE pain (4-6), Avoid if CrCl less than 50 ml/min. Do not administer with other NSAIDS, Routine Given 04/06/2015 10:07 AM EDT 1 5 mg Given 04/05/2015 1:56 PM EDT 15 mg ketorolac (TORADOL) injection 15 mg 15 mg, Intramuscular, EVERY 6 HOURS PRN, Starting on Sun04/05/15 at 1237, Until Sun04/06/15 at 1744, Pain, for MODERATE pain (4-6), Avoid if CrCl less than 50 ml/min. Do not administer with other NSAIDS., Routine Given 04/06/2015 4:15 AM EDT 15 mg Given 04/05/2015 9:51 PM EDT 15 mg lactated ringers infusion 1,000 mL 1,000 mL, at 100 mL/hr, Intravenous, CONTINUOUS, Starting on Sun04/05/15 at 0900, Until Sun04/05/15 at 1237, Day of Surgery (Day of Procedure) New Bag 04/05/2015 9:00 AM EDT 1,000 mLs 100 mL/hr lactated ringers infusion 1,000 mL 1,000 mL, at 100 mL/hr, Intravenous, CONTINUOUS, Starting on Sun04/05/15 at 1300, Until Sun04/06/15 at 0701, Recovery (Recovery-Hospital Unit) New Bag 04/05/2015 10:18 PM EDT 1,000 mLs 100 mL/hr New Bag 04/05/2015 12:47 PM EDT 1,000 mLs 100 mL/hr ondansetron (ZOFRAN) injection 4 mg 4 mg, Intravenous, EVERY 30 MIN PRN, 2 doses, Starting on Sun04/05/15 at 1419, Until Sun04/06/15 at 1744, Nausea, May repeat dose once in 30 minutes if no relief from previous dose. If multiple antiemetics are ordered, use ondansetron first, prochlorperazine second. Per AUTOMOTIVE SERVICE CASHIER order, Recovery (Recovery-Hospital Unit) Given 04/05/2015 4:43 PM EDT 4 mg sodium chloride 0.9 % flush 5 mL 5 mL, Intravenous, 2 TIMES DAILY, First dose on Sun04/05/15 at 1445, Until Discontinued, Recovery (Recovery-Hospital Unit), Routine Given 04/06/2015 8:23 AM EDT 5 mLs Given 04/05/2015 9:49 PM EDT 5 mLs Given 04/05/2015 3:04 PM EDT 5 mLs documented in this encounter Active and Recently Administered Medications Times are shown in EDT. Scheduled Medication Order 04/04/2015 04/05/2015 04/06/2015 ceFAZolin (ANCEF) 2g in dextrose 5% 50 mL (COMPLETED) 2 g, Intravenous, EVERY 3 HOURS, 1 dose, First dose on Sun04/05/15 at 0900, Administer over 30 Minutes, Intra-Operative (Intra-Procedure), Indication for (Active or Suspected): Prophylaxis 0956 (Given - Provider: Tammy Arias CRNA) citric acid-sodium citrate (BICITRA) oral solution 30 mL (COMPLETED) 30 mL, Oral, ONCE, 1 dose, On Sun04/05/15 at 0945, Day of Surgery (Day of Procedure), Routine 0934 (Given - Provider: Konstantin Edwards RN) heparin (porcine) subcutaneous injection 5,000 Units (CANCELED) 5,000 Units, Subcutaneous, EVERY 8 HOURS SCHEDULED, First dose on Sun04/05/15 at 1445, Until Discontinued, Routine 1503 (Given - Provider: Simi Gamez)2149 (Given - Provider: Mi Martinez RN) 0634 (Given - Provider: Mi Martinez RN)1156 (JAN Hold - Provider: Admin Adt - Reason: Transfer to a Procedural area)1157 (JAN Unhold - Provider: Admin Adt)1400 (Due - Provider: Admin Adt) sodium chloride 0.9 % flush 5 mL (CANCELED) 5 mL, Intravenous, 2 TIMES DAILY, First dose on Sun04/05/15 at 1445, Until Discontinued, Recovery (Recovery-Hospital Unit), Routine 1504 (Given - Provider: Simi Gamez)2149 (Given - Provider: Mi Martinez RN) 0823 (Given - Provider: Danielle Hammond RN) Continuous Medication Order 04/04/2015 04/05/2015 04/06/2015 HYDROmorphone (DILAUDID) 1 mg/mL AUTOMOTIVE SERVICE CASHIER 30 mL (CANCELED) Intravenous, AUTOMOTIVE SERVICE CASHIER ONLY, Starting on Sun04/05/15 at 1300, Until Sun04/06/15 at 0701, Recovery (Recovery-Hospital Unit) 1248 (New Syringe/Cartridge - Provider: Luzma Hoffmann RN) lactated ringers infusion 1,000 mL (CANCELED) 1,000 mL, at 100 mL/hr, Intravenous, CONTINUOUS, Starting on Sun04/05/15 at 0900, Until Sun04/05/15 at 1237, Day of Surgery (Day of Procedure) 0900 (New Bag - Provider: Kristal Barajas RN)1000 (Anesthesia Volume Adjustment - Provider: Tammy Arias CRNA)1030 (Anesthesia Volume Adjustment - Provider: Tammy Arias CRNA)1100 (Anesthesia Volume Adjustment - Provider: Tammy Arias CRNA)1135 (Anesthesia Volume Adjustment - Provider: Facundo Quintanilla MD)1200 (Anesthesia Volume Adjustment - Provider: Tammy Arias CRNA)1221 (Stopped - Provider: Tammy Arias CRNA) lactated ringers infusion 1,000 mL (CANCELED) 1,000 mL, at 100 mL/hr, Intravenous, CONTINUOUS, Starting on Sun04/05/15 at 1300, Until Sun04/06/15 at 0701, Recovery (Recovery-Hospital Unit) 1247 (New Bag - Provider: Luzma Hoffmann RN)2218 (New Bag - Provider: Mi Martinez RN) PRN Medication Order 04/04/2015 04/05/2015 04/06/2015 BUpivacaine (PF) (MARCAINE) 0.25 % (2.5 mg/mL) injection (CANCELED) ONCE PRN, Starting on Sun04/05/15 at 1028, Until Sun04/05/15 at 1237, Intra-Operative (Intra-Procedure), Routine 1028 (Given - Provider: Valentín Moura MD) diphenhydrAMINE (BENADRYL) injection 25 mg (COMPLETED) 25 mg, Intravenous, EVERY 30 MIN PRN, 2 doses, Starting on Sun04/05/15 at 1419, Until Sun04/05/15 at 2342, Itching, May repeat dose in 30 minutes if pruritis not relieved. Per AUTOMOTIVE SERVICE CASHIER order, Recovery (Recovery-Hospital Unit), Routine 2218 (Given - Provider: Mi Martinez RN)2342 (Given - Provider: Mi Martinez RN) diphenhydrAMINE (BENADRYL) injection 25 mg 25 mg, Intravenous, EVERY 6 HOURS PRN, Starting on Sun04/06/15 at 0414, Until Sun04/06/15 at 1744, Itching, Routine 0421 (Given - Provid er: Mi Martinez RN)1156 (JAN Hold - Provider: Admin Adt - Reason: Transfer to a Procedural area)1157 (MAR Unhold - Provider: Admin Adt) HYDROmorphone (DILAUDID) oral liquid 2-4 mg 2-4 mg, Oral, EVERY 3 HOURS PRN, Starting on Sun04/06/15 at 0700, Until Sun04/06/15 at 1744, Pain, For pain level 0-4 give 2 mg; For pain level 5-10 give 4 mg;, Routine 0756 (Given - Provid er: Danielle Hammond RN)1133 (Given - Provider: Danielle Hammond RN)1156 (MAR Hold - Provider: Admin Adt - Reason: Transfer to a Procedural area)1157 (MAR Unhold - Provider: Admin Adt) ketorolac (TORADOL) injection 15 mg (CANCELED)(Linked Group 1) 15 mg, Intravenous, EVERY 6 HOURS PRN, Starting on Sun04/05/15 at 1237, Until Sun04/06/15 at 1744, Pain, for MODERATE pain (4-6), Avoid if CrCl less than 50 ml/min. Do not administer with other NSAIDS, Routine 1356 (Given - Provider: Luzma Hoffmann RN)2151 (See Alternative - Provider: Mi Martinez RN) 0415 (See Alternative - Provider: Mi Martinez RN)1007 (Given - Provider: Danielle Hammond RN)1156 (MAR Hold - Provider: Admin Adt - Reason: Transfer to a Procedural area)1157 (MAR Unhold - Provider: Admin Adt) ketorolac (TORADOL) injection 15 mg (CANCELED)(Linked Group 1) 15 mg, Intramuscular, EVERY 6 HOURS PRN, Starting on Sun04/05/15 at 1237, Until Sun04/06/15 at 1744, Pain, for MODERATE pain (4-6), Avoid if CrCl less than 50 ml/min. Do not administer with other NSAIDS., Routine 1356 (See Alternative - Provider: Luzma Hoffmann RN)2151 (Given - Provider: Mi Martinez RN) 0415 (Given - Provider: Mi Martinez RN)1007 (See Alternative - Provider: Danielle Hammond RN)1156 (MAR Hold - Provider: Admin Adt - Reason: Transfer to a Procedural area)1157 (MAR Unhold - Provider: Admin Adt) ondansetron (ZOFRAN) injection 4 mg (CANCELED) 4 mg, Intravenous, EVERY 30 MIN PRN, 2 doses, Starting on Sun04/05/15 at 1419, Until Sun04/06/15 at 1744, Nausea, May repeat dose once in 30 minutes if no relief from previous dose. If multiple antiemetics are ordered, use ondansetron first, prochlorperazine second. Per AUTOMOTIVE SERVICE CASHIER order, Recovery (Recovery-Hospital Unit) 1643 (Given - Provider: Simi Gamez) Linked Groups Order Group 1: ketorolac (TORADOL) injection 15 mg (CANCELED)Jump to med 15 mg, Intravenous, EVERY 6 HOURS PRN, Starting on Sun04/05/15 at 1237, Until Sun04/06/15 at 1744, Pain, for MODERATE pain (4-6), Avoid if CrCl less than 50 ml/min. Do not administer with other NSAIDS, Routine Or ketorolac (TORADOL) injection 15 mg (CANCELED)Jump to med 15 mg, Intramuscular, EVERY 6 HOURS PRN, Starting on Sun04/05/15 at 1237, Until Sun04/06/15 at 1744, Pain, for MODERATE pain (4-6), Avoid if CrCl less than 50 ml/min. Do not administer with other NSAIDS., Routine documented in this encounter Care Teams Projection Engineer Relationship Specialty Start Date End Date Latanya Newberry MD [facility] [address] [place] [address] [place] [address] PCP - General 08/27/13 11/01/15 documented as of this encounter
--- OUTSIDE RECORDS SUMMARY | 2024-10-16 17:43 | XMS_ITS | Encounter Summary ---
[facility] Organization [facility] [place] [address] Care Team Providers Care Grocery Specialist Name Role Phone Latanya Newberry MD Primary Care Provider Encounter Details Date Type Department Care Team (Late st Contact Info) Description 06/01/2015 11:54 AM EDT - 06/01/2015 4:18 PM EDT [place] [address] Darius Nuñez Jr., MD [facility] [place] [address] NEPHROLITHOTOMY, (PCNL) PERCUTANEOUS (WRVU 12.41) Social History Tobacco Use Types Packs/Day Years [...] Sign Reading Time Taken Comments Blood Pressure 118/71 06/01/2015 4:00 PM EDT Pulse 82 06/01/2015 4:00 PM EDT Temperature 36.4 ??C (97.5 ??F) 06/01/2015 3:45 PM ED T Respiratory Rate 14 06/01/2015 4:00 PM EDT Oxygen Saturation 94% 06/01/2015 4:00 PM EDT Inhaled Oxygen Concentration - - Weight 86.6 kg (191 lb) 06/01/2015 11:04 AM EDT Height 160 cm (5' 3) 06/01/2015 11:04 AM EDT Body Mass Index 33.83 06/01/2015 11:04 AM EDT documented in this encounter Discharge Summaries * Aliya Goodwin PA - 06/02/2015 8:41 AM EDT Discharge Summary Patient Name: Vianney Saini Patient Age: 39 y.o. Language: Sao [place] Race: White Ethnicity: Not nor Admit date: [...] most recent episode of renal colic was in-March 2015, at which time there was acute [...] Hospital Course: Patient was admitted electively to [facility] via the same day surgery program and [...] 2-4 mg Quantity: 120 mL Refills: 0 Ofrxufafuznhh-Rbmvlipv-Stnpzo Tab Take by mouth. Refills: 0 Smoking [...] longer draining. The number for questions is [phone] before 5 PM weekdays and [phone] after 5 PM and weekends. Activity: Gradually [...] (acetaminophen) or Ibuprofen (Advil, Motrin) as directed [id number]-kkh-veebvns. Take any prescriptions as directed. Follow up Appointments: Follow-up appointment will be scheduled with Dr. Nuñez in approximately 2 weeks for a hospital check and stent removal. Appointment will be mailed to you. Please call [phone] (clinic number for appointments) to confirm date [...] Phone 06/17/2015 1:00 PM UROLOGY, PROCEDURE Urology [phone] 06/17/2015 1:20 PM Darius Nuñez Jr., MD [facility] Urology [phone] Follow-Up: Future Appointments Date Time Provider Department Center 06/17/2015 1:00 PM UROLOGY, PROCEDURE [facility] 06/17/2015 1:20 PM Darius Nuñez Jr., MD [facility] Uro None Primary Care Provider: LATANYA NEWBERRY MD ([facility]) [phone] Follow-up Recommendations for Providers: Please see discharge [...] was managed by the Urology Team at [facility]. If you have any questions or concerns, please feel free to contact us. Provider Contact Information: Urology Clinic: [facility] (after business hours): documented in this encounter [...] longer draining. The number for questions is [phone] before 5 PM weekdays and [phone] after 5 PM and weekends. Activity: Gradually [...] (acetaminophen) or Ibuprofen (Advil, Motrin) as directed [id number]-munlgxe. Take any prescriptions as directed. Follow up Appointments: Follow-up appointment will be scheduled with Dr. Nuñez in approximately 2 weeks for a hospital check and stent removal. Appointment will be mailed to you. Please call [phone] (clinic number for appointments) to confirm date [...] EDT Simi Obando RN Case Manager pager [phone] Record reviewed. No discharge needs identified at this time. Interior Designer remains available as needed for coordination of [...] Surveillance: q2 hour rounding; pulse oximetry; call ecrda in reach CPG GOAL OUTCOME EVALUATION: Goal: Individualization and Mutuality 06/01/15 1800 Mutuality/Individual Preferences What anxieties, fears or concerns do you have about your health or care? none What questions do you have about your health or care? none What information would help us give you more personalized care? none Goal: Fall Prevention-Safe Patient Handling 06/01/15172406/01/151840 Safety Interventions Safety Precautions/Fall Reduction fall reduction [...] Operative Note Patient Name: Vianney Saini : [id number] MR#: [id number] Case Date: 06/01/2015 Surgeon: Surgeon(s) and Role: [...] wire. The cystoscope was removed and a 5-Guyanese Bethany catheter was passed over the wire and [...] the 8/10 dilator was passed over the [place] wire to gently dilate the tract. The dilator was removed, and an angiographic catheter was placed over the Glidewire. This was used to redirect the wire out the urethra, obtaining ufrdwwr-fsd-zczwxwy access. The wire was exchanged for a Superstiff. The angiographic catheter was removed. An 8/10 dilator was placed over the supe rstiff wire. The inner cannula was removed, and an additional Glidewire was placed down the 8/10 dilator. This wire also passed out through the urethra. An angiographic catheter was passed over the [place] and it was exchanged for an additional [...] to a pressure of 14 atmospheres. The 30-Guyanese access sheath was easily placed over the [...] The rigid nephroscope was then reinserted. The [place] wire was backloaded into the scope and in an antegrade fashion, a 6F VL7. The distal coil was seen fluoroscopically to be in good position in the bladder and the proximal coil was visualized to be in good position in the renal pelvis. The rigid nephroscope was removed and a 24 finnish [place] catheter was passed through the access sheath [...] evidence for hydro or pneumothorax. A 5F Bethany catheter was passed over the working wire and into the [place] nephrostomy tube. It was seen onfluoroscopy to [...] Operative Note Patient Name: Vianney Saini : [id number] MR#: [id number] Case Date: 06/01/2015 Surgeon: Surgeon(s) and Role: * Darius Nuñez Jr., MD - Primary * Jeremy Valenzulea MD - Resident-Surgeon Chief Preoperative diagnosis: R [...] AM EST Office [place] [phone] Mercy Amanda MD [facility] DR [facility] [place] [address] 04/01/2025 2:00 PM EDT Office [place] [phone] Erum Szymanski MD [facility] [place] [address] Pending Results Name Type Priority Associated Diagnoses [...] EDT TYPE AND SCREEN, SDP (FUTURE SURGERY, [facility] SAME DAY PROGRAM ONLY) Routine 06/01/2015 12:41 [...] HEMATOLOGY ORDERAB LES CERNER MILLENNIUM * (ABNORMAL) Hemogram (06/02/2015 3:45 AM EDT) [...] Hemoglobin Concentration 34.2 32.0 - 36.5 gm/dL [facility] Platelet 203 145 - 370 x10(3)/mc L CERNER MILLENNIUM RDW Standard Deviation 41.3 35.0 - 46.0 fL CERNER MILLENNIUM RDW coefficient of variation 13.0 10.9 - 14.4 % CERNER MILLENNIUM Mean Platelet Volume 10.4 9.0 - 12.0 fL [facility] Blood specimen (specimen) 06/02/2015 3:45 AM EDT 06/02/2015 3:49 AM EDT Narrative Resulting Agency Comment Spec In Lab Darius Nuñez Jr., MD HEMATOLOGY ORDERAB LES [facility] * (ABNORMAL) Basic Metabolic Panel (non-fasting) (06/02/2015 3:45 AM EDT) [facility] Glucose 116 65 - 199 mg/dL [facility] MILLENNIUM Comment:Diabetes: >=200 mg/d L plus symptoms Blood Urea Nitrogen 8 8 - 18 mg/dL [facility] MILLENNIUM Creatinine 0.69(L) 0.70 - 1.20 mg/dL [facility] Comment: Please note that the pediatric reference intervals supplied above were not validated at [facility]. Results from pediatric patients should be interpreted in conjunction to the patient's age, height and muscle mass. Sodium 140 135 - 145 mmol/L [facility] MILLENNIUM Potassium 4.2 3.5 - 5.0 mmol/L [facility] MILLENNIUM Comment: Please note: ??Patients with WBC [...] the following links into your internet browser. [email or web address] Blood specimen (specimen) 06/02/2015 3:45 AM EDT 06/02/2015 3:49 AM EDT Narrative Resulting Agency Comment Spec In Lab Darius Nuñez Jr., MD CHEMISTRY ORDERABL ES CERGABY HOUSTONENNIUM * SCAN DOC: IMPLANTABLE DEVICES (06/02/2015 12:00 [...] Nuñez Jr., MD HEMATOLOGY ORDERAB LES CERNER ROSEMARIEENNIUM * Hemogram (06/01/2015 3:19 PM EDT) White [...] Metabolic Panel (non-fasting) (06/01/2015 3:19 PM EDT) Glucose 134 65 - 199 mg/dL CERNER MILLENNIUM Comment:Diabetes: >=200 mg/d L plus symptoms Blood Urea Nitrogen 10 8 - 18 mg/dL CERNER MILLENNIUM Creatinine 0.82 0.70 - 1.20 mg/dL CERNER MILLENNIUM Comment: Please note that the pediatric reference intervals supplied above were not validated at [facility]. Results from pediatric patients should be interpreted [...] the following links into your internet browser. [email or web address] Blood specimen (specimen) 06/01/2015 3:19 PM EDT 06/01/2015 3:26 PM EDT Narrative Resulting Agency Comment Spec In Lab Darius Nuñez Jr., MD CHEMISTRY ORDERABL ES KnoGABY iiko * Kidney Stone Analysis (06/01/2015 2:24 PM EDT) Kidney Stone Analysis (MAY) Test ?Result ?Flag ??Unit ??RefValue Kidney Stone Analysis ??Source: ? Right Renal ??1st Constituent: 50% Calcium phosphate (apatite) ??2nd Constituent: 20% Calcium oxalate monohydrate ??3rd Constituent: 20% Calcium oxalate dihydrate ??Comment ? 10% Calcium carbonate Test Performed by: [place] [address] Kinesiologist: Valentín Goetz II, M.D., Ph.D. MELISSA iiko Calculus specimen (specimen) 06/01/2015 2:24 PM EDT 06/01/2015 2:59 PM EDT Narrative Resulting Agency Comment Spec In Lab Darius Nuñez Jr., MD LAB SEND OUT ORDER SUGAR Performing Organization Address [facility] Co de Phone Number MELISSA CURTIS * Antibody screen (06/01/2015 12:41 PM EDT) Ab Screen Interp Negative MELISSA CURTIS Expires at 2359 on: 06/04/2015 MELISSA CURTIS Blood specimen (specimen) 06/01/2015 12:41 PM EDT 06/01/2015 12:41 PM EDT Narrative Resulting Agency Comment Spec In Lab Darius Nuñez Jr., MD BLOOD BANK LAB ORD ERABLES Performing Organization Address [facility] de Phone Number MELISSA CURTIS * ABO/Rh Typing (06/01/2015 12:41 PM EDT) ABORH Type A Pos MELISSA CURTIS Blood specimen (specimen) 06/01/2015 12:41 PM EDT 06/01/2015 12:41 PM EDT Narrative Resulting Agency Comment Spec In Lab Darius Nuñez Jr., MD BLOOD BANK LAB ORD ERABLES Performing Organization Address [facility] de Phone Number MELISSA CURTIS documented in [...] Given 06/01/2015 5:33 PM EDT 60 mg BUpivacaine (PF) (MARCAINE) 0.5 % (5 mg/mL) injection ONCE PRN, Starting on Sun06/01/15 at 1429, Until Sun06/01/15 at 1611, Intra-Operative (Intra-Procedure), Routine Given 06/01/2015 2:29 PM EDT 10 mLs 19- Surgical Site ciprofloxacin HCl (CIPRO) tablet 500 mg 500 [...] Given 06/01/2015 6:48 PM EDT 4 mg iohexol (OMNIPAQUE) 300 mg/mL solution ONCE PRN, Starting on Sun06/01/15 at 1300, Until Sun06/01/15 at 1611, Intra-Operative (Intra-Procedure), Routine Given 06/01/2015 1:00 PM EDT 250 mLs 19- Surgical Site lidocaine-EPINEPHrine 1 %-1:200,000 injection ONCE PRN, Starting on Sun06/01/15 at 1429, Until Sun06/01/15 at 1611, Intra-Operative (Intra-Procedure), Routine Given 06/01/2015 2:29 PM EDT 10 mLs 19- Surgical Site oxybutynin (DITROPAN-XL) CR tablet 5 mg 5 [...] 06/01/2015 11:48 PM EDT 100 mL/hr 100 mL/hr New Bag 06/01/2015 3:30 PM EDT 100 [...] Routine 1732 (Given - Provider: Priti Duke RN)2044 (Not Given - Provider: Nelly Boyd RN - Reason: See comment - Comment: given earlier)2347 (Given - Provider: Nelly Boyd RN) 0522 (Given - Provider: Nelly Boyd RN)1006 (Given - Provider: Priti Duke RN) ampicillin 1g vial attach to sodium chloride 0.9% 100 mL Mini-Bag Plus (COMPLETED) 1,000 mg (1 g), Intravenous, TRANSPORTATION LEAD TO O.R., 1 dose, On Sun06/01/15 at 1115, Administer over 15 Minutes, Day of Surgery (Day of Procedure), Indication for (Active or Suspected): Prophylaxis 120 (Given - Provider: Rainer Yi MD) belladonna-opium (B&O SUPPRETTES) 16.2-60 mg suppository 60 mg (COMPLETED) 60 mg, Rectal, ONCE, On Sun06/01/15 at 1745, 1 dose 173 (Given - Provider: Priti Duke RN) ciprofloxacin HCl (CIPRO) tablet 500 mg (CANCELED) [...] 0.9% 106.525 mL (COMPLETED) 261 mg, Intravenous, TRANSPORTATION LEAD TO O.R., 1 dose, On Sun06/01/15 at [...] Comment: mixed 1:1 with 1% Xylocaine w/epinephrine 1:[id number]) HYDROmorphone (DILAUDID) syringe 0.2-0.4 mg (CANCELED) 0.2-0.4 [...] Routine 1848 (See Alternative - Provider: Priti Duke, NIMCO)2347 (Given - Provider: Nelly Boyd, RN) HYDROmorphone (DILAUDID) tablet 4 mg (CANCELED)(Linked Group 1) 4 mg, Oral, EVERY 4 HOURS PRN, Starting on Sun06/01/15 at 1526, Until Sun06/02/15 at 1502, Pain, for moderate pain (4-6), May give an additional 2 mg once if pain not relieved in 30-60 minutes., Routine 184 (Given - Provider: Priti Duke RN)234 (See Alternative - Provider: Nelly Boyd RN) [...] Routine documented in this encounter Care Teams Grocery Specialist Relationship Specialty Start Date End Date Latanya Newberry MD HOSPITALIST SERVICES [address] [place] [address] [place] [address] PCP - General 08/27/13 11/01/15 documented as of this encounter
--- OUTSIDE RECORDS SUMMARY | 2024-10-16 17:43 | XMS_ITS | Encounter Summary ---
[place] [address] Care Team Providers Care Application Support Consultant Name Role Phone Latanya Wade MD Primary Care Provider [phone] Encounter Details Date Type Department Care Team (Latest Contact Info) Description 05/04/2015 11:20 AM EDT Office [place] [phone] Valentín Moura MD [facility] [place] [address] Postoperative state Discharge Disposition: Home Social History Tobacco Use [...] as of this encounter Progress Notes * Valentín Moura MD - 05/04/2015 11:49 AM EDT Vianney Saini is a 39-year-old female who presents in followup status post laparoscopic Addie fundoplication and hiatal hernia repair. This was done on April 05, 2015. As I see her back today, she overall is doing very well. She was able to eat a regular diet last night including chicken and vegetables without any significant dysphagia. She does have some globus sensation, and we talked about that it is likely to resolve the further she gets out from surgery. On exam, all trocar sites are healing well without any evidence of erythema or herniation. Her abdomen is soft, flat and nontender. At this point she has had an uneventful recovery and she seems very pleased with both her decision to undergo the operation as well as the results thus far. I would be happy to see her back on a p.r.n. basis. documented in this encounter Plan of Treatment Upcoming Encounters Date Type Department Care Team (Late st Contact Info) Description 12/31/2024 10:00 AM EST [place] [address] Mercy Amanda MD [facility] DR [facility] [address] 04/01/2025 2:00 PM EDT Office [place] [address] Erum Szymanski MD [facility] [place] [address] documented as of this encounter Visit Diagnoses Diagnosis Postoperative state Other postprocedural status documented in this encounter Care Teams Application Support Consultant Relationship Specialty Start Date End Date Latanya Wade MD HOSPITALIST SERVICES [address] [place] [address] [place] [address] PCP - General 08/27/13 11/01/15 documented as of this encounter
--- OUTSIDE RECORDS SUMMARY | 2024-10-16 17:43 | XMS_ITS | Encounter Summary ---
Author Organization Pending Sale To [facility] Address [facility] [place] [address] Care Team Providers Care Clinical Fellow Name Role Phone Sonido Cordoba Primary Care Provider [phone] Reason for Visit * Auth/Cert Specialty Diagnoses / Procedures Referred By Conteulalio t Referred To Contact Diagnoses 12 wk f/u from 01/27/15 Procedures EGD, UPPER GI ENDOSCOPY Referral ID Status Reason Start Date Expiration Date Visits Re quested Visits Authorized [id number] 1 1 Encounter Details Date Type Department Care Team (Latest Contact Info) Description 02/28/2016 8:22 AM EDT - 02/28/2016 10:23 AM EDT Hospital Encounter [place] [address] Brandt Barlow MD [facility] [place] [address] Discharge Disposition: Home Social History Tobacco Use [...] Sign Reading Time Taken Comments Blood Pressure 108/68 02/28/2016 10:00 AM EDT Pulse 91 02/28/2016 10:00 AM EDT Temperature - - Respiratory Rate 18 02/28/2016 10:00 AM EDT Oxygen Saturation 95% 02/28/2016 10:00 AM EDT Inhaled Oxygen Concentration - - [...] better as expected. Sunday-Sunday Same Day Endo [phone] Otherwise contact [phone] and ask to speak to the visitor services associate plant operations vice president Follow-up care is a harper part of [...] EST Office Visit [place] [phone] Mercy Amanda MD [facility] DR [facility] [address] 04/01/2025 2:00 PM EDT Office Visit [place] [address] Erum Szymanski MD [facility] [place] [address] documented as of this encounter Procedures Procedure Name Priority Date/Time Associated Diagnosis Comments SURGICAL PATHOLOGY REPORT Routine 02/28/2016 9:30 AM EDT SPECIMEN TO PATHOLOGY Routine 02/28/2016 9:30 AM EDT EGD WITH BIOPSY (WRVU 2.39) 02/28/2016 9:09 AM EDT Dyspepsia UPPER GI ENDOSCOPY Routine 02/28/2016 9: 00 AM EDT documented in this encounter Results * Surgical Pathology Report (02/28/2016 9:30 AM EDT) Final Diagnosis [id number] ? Location: ; [facility]; A The signing pathologist has (i) examined the relevant preparation(s) for the specimen(s) and (ii) rendered or confirmed the diagnosis(es). . 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 No dysplasia is seen. 02/28/16 AAY 02/29/16 Verified by: ? Leila RIVAS, Ayad Hector [...] sing: (T1) ??mmk 02/29/2016 2:22 PM EDT [facility] GI Biopsy 02/28/2016 9:30 AM EDT 02/28/2016 9:30 AM EDT Brandt Barlow MD PATHOLOGY/CYTOLOGY O ZHANNA Performing Organization Address [facility] [place] [address] * Specimen to Pathology (surgical or derm) (02/28/2016 9:30 AM EDT) AP Specimen 02/28/2016 9:30 AM EDT 02/28/2016 9:30 AM EDT Narrative [facility] - 02/28/2016 9:30 AM EDT Specimen requisition ordered. ??Separate Pathology report to follow Brandt Barlow MD PATHOLOGY/CYTOLOGY O RDERAYESENIA Performing Organization Address [facility] [place] [address] * UPPER GI ENDOSCOPY (02/28/2016 9:00 AM EDT) UPPER GI ENDOSCOPY [facility] Endoscopy Patient Name: Vianney Saini ? Procedure Date: 02/28/2016 9:00 AM ? Date of : 1975 ? Age: 40 ? Order #: [id number] ? Procedure: ? Upper GI endoscopy Indications: ? Heartburn, Follow-up of esophageal ? reflux; history of Grade C ? esophagitis; s/p Rosy ? fundoplication. Providers: ? Brandt Barlow MD, Shasta Maciel ? NIMCO Alfonso, Clovis Ramos RN Referring : ?WANDY Andrade Medicines: ? Midazolam 4 mg [...] - Esophagogastric landmarks ? identified. ? - Redbird-colored mucosa suspicious ? for long-segment Rodgers's esophagus. ? - Specimens collected. Recommendation: ?- Return to primary care physician as ? previously scheduled. ? - Results of biopsies will be ? available in 8-10 days and sent to ? patient and provider ? Procedure Code(s): ?? --- Professional --- ? 94287, Esophagogastroduod enoscopy, ? flexible, transoral; diagnostic, ? including collection of specimen(s) ? by brushing or washing, when ? performed (separate procedure) CPT copyright 2014 [employer]. All rights reserved. The codes documented in this report are preliminary and upon him director review may be revised to meet current [...] 0912, Until Sun02/28/16 at 1230, Intra-Operative (Intra-Procedure) 09 (Given - Provid er: Clovis Ramos RN) diphenhydrAMINE (BENADRYL) injection (CANCELED) ONCE PRN, Starting on Sun02/28/16 at 0912, Until 02/28/16 at 1230, Intra-Operative (Intra-Procedure), Routine 09 (Given - Provid er: Clovis Ramos RN)0915 (Given - Provider: Clovis Ramos RN) fentaNYL 50 mcg/mL multi-dose injection (CANCELED) ONCE PRN, Starting on Sun02/28/16 at 0912, Until Sun02/28/16 at 1230, Intra-Operative (Intra-Procedure), Routine 0912 (Given - Provid er: Clovis Ramos RN)0915 (Given - Provider: Clovis Ramos RN)0919 (Given - Provider: Clovis Ramos RN)0923 (Given - Provider: Clovis Ramos RN) midazolam (PF) (VERSED) 1 mg/mL multi-dose injection (CANCELED) ONCE PRN, Starting on Sun02/28/16 at 0912, Until Sun02/28/16 at 1230, Intra-Operative (Intra-Procedure), Routine 911 (Given - Provid er: Clovis Ramos RN)0915 (Given - Provider: Clovis Ramos RN)0919 (Given - Provider: Clovis Ramos RN)0923 (Given - Provider: Clovis Ramos RN) documented in this encounter Care Teams Clinical Fellow Relationship Specialty Start Date End Date Sonido Cordoba PA [address] [place] [address] PCP - General Family Medicine 11/16/15 06/22/20 documented as of this encounter
--- OUTSIDE RECORDS SUMMARY | 2024-10-16 17:43 | XMS_ITS | Encounter Summary ---
[place] [address] Care Team Providers Care Transfer And Pumphouse Operator Chief Name Role Phone Latanya Newberry MD Primary Care Provider [phone] Encounter Details Date Type Department Care Team (Late st Contact Info) Description 04/05/2015 10:02 AM EDT - 04/05/2015 1:30 PM EDT [place] [address] [facility] [place] [address] LAPAROSCOPIC ROSY FUNDOPLASTY (WRVU 18.1) Social History Tobacco Use Types Packs/Day Years [...] Sign Reading Time Taken Comments Blood Pressure 151/84 04/05/2015 1:30 PM EDT Pulse 63 04/05/2015 1:30 PM EDT Temperature 36.3 ??C (97.3 ??F) 04/05/2015 1 2:17 PM EDT Respiratory Rate 11 04/05/2015 1:30 PM EDT Oxygen Saturation 96% 04/05/2015 1:30 PM EDT Inhaled Oxygen Concentration - - [...] a post-Rosy clear liquid diet and a TAPPER SHANK for pain control. she received subcutaneous heparin for DVT prophylasix. On POD#1 her diet was advanced to post-Rosy full liquids, which was tolerated well. The advertising operations manager provided education for a post-Rosy diet on discharge. she was changed to oral pain medications and TAPPER SHANK was discontinued on POD#1. The chirinos catheter [...] Refills: 0 Continued medications, unchanged Dose Details Gqzlxjbbbipru-Zoaujhfy-Saxvee Tab Take by mouth. Refills: 0 STOPPED Medications pantoprazole 40 mg Tbec Commonly known as: PROTONIX Disposition: Home Allergies: Allergies Allergen Reactions ??? Oxycodone Nausea And Vomiting Outpatient Services/Studies: No discharge procedures on file. Scheduled Appointments: Future Appointments Provider Department Dept Phone 04/06/2015 3:20 PM Darius Nuñez Jr., MD Urology [phone] Instructions Given to Patient at Discharge: Patient [...] HOLIDAYS: ASK FOR THE GENERAL SURGERY RESIDENT LEARNING AND DEVELOPMENT ANALYST IF ANY OF THE ABOVE OCCUR. Activity level: Increase your activity slowly. You may tire easily, so frequent rest periods may be necessary. Do not lift more than 10 pounds for 4 weeks. Walk three times a day. Use common sense. Don't exhaust yourself. Diet: You should follow a post Rosy diet, as instructed by the advertising operations manager in the hospital for a period of [...] at the General Surgery Out[facility] - [facility] 4 You will receive a letter in the mail confirming the appointment date and time. Your follow-up is very important to us. Please call [phone] if you do not hear from us within 7 days of discharge or if you need to change the appointment date/time. General Instructions None Future Appointments Provider Department Dept Phone 04/06/2015 3:20 PM Darius Nuñez Jr., MD Urology [phone] Signed: Erik Rivera MD 04/06/2015 Primary Marisela Physician: LATANYA NEWBERRY MD HOSPITALIST SERVICES [address] [place] [address] / [facility] * documented in this encounter [...] HOLIDAYS: ASK FOR THE GENERAL SURGERY RESIDENT LEARNING AND DEVELOPMENT ANALYST IF ANY OF THE ABOVE OCCUR. Activity level: Increase your activity slowly. You may tire easily, so frequent rest periods may be necessary. Do not lift more than 10 pounds for 4 weeks. Walk three times a day. Use common sense. Don't exhaust yourself. Diet: You should follow a post Rosy diet, as instructed by the advertising operations manager in the hospital for a period of [...] at the General Surgery Outpatient [facility] - [facility] 4L You will receive a letter in the mail confirming the appointment date and time. Your follow-up is very important to us. Please call [phone] if you do not hear from us [...] as needed. 210 mL 0 04/06/2015 06/02/2015 Sfkjymihawdbb-Lqgelkkq-Dt tein Tablet Take by mouth. 07/30/2015 documented as of this encounter Progress Notes * Simi Obando RN - 04/06/2015 12:10 PM EDT Simi Oabndo RN Case Manager pager [phone] Record reviewed and patient discussed with multidisciplinary [...] consulted in the interim. EDUARDO Corley * Miguel Erik Radha - 04/06/2015 7:21 AM EDT General Surgery Daily Progress Note Vianney Saini 1975 [id number] ID [id number] y.o. y/o F POD#1 s/p [...] aim for discharge later today. N: d/c TAPPER SHANK, transition to po liquid pain meds CV: No issues Pulm: OOB to ambulate, encourage IS GI: Advance to post-Rosy fulls this am, home on post-Rosy diet x 3 weeks, ok to stop PPI, to see nutrition consult today : taran removed this am, due to void FEN/Renal: HLIV, good uop Endo: No issues Heme: No issues ID:No issues Prophy: [facility] Dispo: Floor status, likely home later today [...] pain 10/10 scale and falls backasleep quickly. TAPPER SHANK teaching provided, pt demonstrated understanding of teaching. [...] with her today, the entire time in xtoj-ek-dxcz conversation regarding the pathophysiology of gastroesophageal reflux [...] BIOPSY performed by Brandt Barlow MD at [facility] ENDOSCOPY No current facility-administered medications on file [...] lock IV, advance rosy diet, dc dilaudid TAPPER SHANK asnd begin po pain meds, dc home. INDIVIDUALIZED FALL PREVENTION: Assistance: Pt is able to call appropriately if she needs assistance. Supervision: Up with one light assist Surveillance: puse oximetry, hourly purposeful rounding CPG GOAL OUTCOME EVALUATION: Goal: Individualization and Mutuality Outcome: Ongoing (Interventions Implemented as Appropriate) Goal: Fall Prevention-Safe Patient Handling Outcome: Ongoing (Interventions Implemented as Appropriate) 04/06/15524 Safety Interventions Safety Precautions/Fall Reduction fall reduction [...] Moura MD - 04/05/2015 12:04 PM EDT [facility] Operative Note Patient Name: Vianney Saini : [id number] MR#: [id number] Case Date: 04/05/2015 Surgeon: Surgeon(s) and Role: [...] a 3-stitch, 2.5-cm fundoplication performed over a 60-Swedish bougie. There were no intraoperative complications. Details [...] The esophagus was then encircled using a Bow which was held in place using Endoloop. Further paraesophageal dissection was performed until we had obtained approximately 3 cm of tension- free intraabdominal esophagus. At this point, the diaphragmatic hiatus was approximated using interrupted sutures of 0 Nurolon tied over Yosvany pledgets. We then wrapped the stomach posterior to the esophagus and a 60-Swedish bougie was passed by Anesthesiology down the [...] was irrigated. Excellent hemostasis was assured. The Bow drain was cut and removed. The liver [...] Operative Note Patient Name: Vianney Saini : [id number] MR#: [id number] Case Date: 04/05/2015 Surgeon: Surgeon(s) and Role: [...] a 3-stitch, 2.5-cm fundoplication performed over a 60-Swedish bougie. There were no intraoperative complications. Details [...] The esophagus was then encircled using a Bow which was held in place using Endoloop. Further paraesophageal dissection was performed until we had obtained approximately 3 cm of tension- free intraabdominal esophagus. At this point, the diaphragmatic hiatus was approximated using interrupted sutures of 0 Nurolon tied over Yosvany pledgets. We then wrapped the stomach posterior to the esophagus and a 60-Swedish bougie was passed by Anesthesiology down the [...] was irrigated. Excellent hemostasis was assured. The Tho drain was cut and removed. The liver [...] AM EST Office [place] [address] [facility] [place] [address] 04/01/2025 2:00 PM EDT Office Visit Gastroenterology at [facility] [place] [address] [facility] [place] [address] documented as of this encounter Procedures Procedure Name Priority Date/Time Associated Diagnosis Comments ECG SCAN 04/07/2015 12:00 AM EDT MODIFIER, HIATAL HERNIA 04/05/20 9:38 AM EDT GERD AND HIATAL HERNIA LAPAROSCOPIC ROSY FUNDOPLASTY (WRVU 18.1) 04/05/2015 9:38 AM EDT GERD AND HIATAL HERNIA documented in this encounter Results * SCAN DOC: ECG (04/07/2015 12:00 AM EDT) Scanning Provider MEDIA MGR SCAN EXT O RDR/RSLT documented in this encounter Visit Diagnoses Not on filedocumented in this encounter Administered Medications Inactive Administered Medications - up to 3 most recent administrations Medication Order MAR Action Action Date Dose Rate Site BUpivacaine (PF) (MARCAINE) 0.25 % (2.5 mg/mL) injection ONCE PRN, Starting on Sun04/05/15 at 1028, Until Sun04/05/15 at 1237, Intra-Operative (Intra-Procedure), Routine Given 04/05/2015 10:28 AM EDT 30 mg 19- Surgical Site citric acid-sodium citrate (BICITRA) oral solution [...] 30 minutes if pruritis not relieved. Per TAPPER SHANK order, Recovery (Recovery-Hospital Unit), Routine Given 04/05/2015 [...] EDT 5,000 Units HYDROmorphone (DILAUDID) 1 mg/mL TAPPER SHANK 30 mL Intravenous, TAPPER SHANK ONLY, Starting on Sun04/05/15 at 1300, Until [...] ordered, use ondansetron first, prochlorperazine second. Per TAPPER SHANK order, Recovery (Recovery-Hospital Unit) Given 04/05/2015 4:43 [...] Provider: Simi Gamez)2149 (Given - Provider: Mi Martinez, NIMCO) 0634 (Given - Provider: Mi Martinez, NIMCO)1156 (JAN Hold - Provider: Admin Adt - Reason: Transfer to a Procedural area)1157 (MAR Unhold - Provider: Admin Adt)1400 (Due - Provider: Admin Adt) sodium chloride 0.9 % flush 5 mL (CANCELED) 5 mL, Intravenous, 2 TIMES DAILY, First dose on Sun04/05/15 at 1445, Until Discontinued, Recovery (Recovery-Hospital Unit), Routine 1504 (Given - Provider: Simi Gamez)2149 (Given - Provider: Mi Martinez, NIMCO) 0823 (Given - Provider: Danielle Hammond RN) Continuous Medication Order 04/04/2015 04/05/2015 04/06/2015 HYDROmorphone (DILAUDID) 1 mg/mL TAPPER SHANK 30 mL (CANCELED) Intravenous, TAPPER SHANK ONLY, Starting on Sun04/05/15 at 1300, Until Sun04/06/15 at 0701, Recovery (Recovery-Hospital Unit) 1248 (New Syringe/Cartridge - Provider: Luzma Hoffmann, NIMCO) lactated ringers infusion 1,000 mL (CANCELED) 1,000 [...] 30 minutes if pruritis not relieved. Per TAPPER SHANK order, Recovery (Recovery-Hospital Unit), Routine 2218 (Given [...] Procedural area)1157 (JAN Unhold - Provider: Admin Adt) HYDROmorphone (DILAUDID) [...] RN)1007 (Given - Provider: Danielle Hammond RN)1156 ([facility] Hold - Provider: Admin Adt - Reason: Transfer to a Procedural area)1157 ([facility] Unhold - Provider: Admin Adt) ketorolac (TORADOL) [...] ordered, use ondansetron first, prochlorperazine second. Per TAPPER SHANK order, Recovery (Recovery-Hospital Unit) 1643 (Given - [...] Routine documented in this encounter Care Teams Transfer And Pumphouse Operator Chief Relationship Specialty Start Date End Date Latanya Newberry MD H[facility] [address] [place] [address] [place] [address] PCP - General 08/27/13 11/01/15 documented as of this encounter
--- OUTSIDE RECORDS SUMMARY | 2024-10-16 17:43 | XMS_ITS | Encounter Summary ---
Author Organization [facility] [place] [address] Care Team Providers Care Primary Therapist Name Role Phone Sonido Cordoba Primary Care Provider [phone] Reason for Visit * Consultation (Routine) - Closed Specialty Diagnoses / Procedures Referred By Aric madrigal Referred To Contact Neurology Diagnoses lumbar radiculopathy Sonido Cordoba PA [address] [place] [address] [facility] Neurology [address] [place] [id number] Referral ID Status Reason Start Date Expiration Date V isits Requested Visits Authorized [id number] Closed Consult, Test & Treat Connection Center 11/16/2015 11/15/2016 1 1 Encounter Details Date Type Department Care Team (Late st Contact Info) Description 12/13/2015 9:00 AM EST Procedure [place] [address] Senait Becerra MD [facility] [place] [address] Meralgia paresthetica of left side Social History Tobacco Use Types Packs/Day Years [...] as of this encounter Progress Notes * Senait Becerra MD - 12/13/2015 12:29 PM EST ADDENDUM: There is no electrophysiologic evidence of left lumbosacral radiculopathy. * Senait Becerra MD - 12/13/2015 9:23 AM EST Vianney Saini referred for EDX studies by Sonido Cordoba PA [address] [place] [id number] to look for evidence of lumbosacral radiculopathy. Full consult could not be performed because of late arrival. NCS/EMG: The sural SNAP amplitudes and conduction velocities were normal. The left peroneal and tibial motor amplitude and peroneal conduction velocity was normal. Peroneal and tibial late response latencies were preserved. Needle EMG of the left lower extremity was normal including a high lumbar paraspinal muscle. IMPRESSION: Normal study. There is no electrodiagnostic evidnece of neuropathy, left lower extrmeity mononeuropathy, or lumbosacral plexopathy in particular at the L2/L3 nerve root. CLINICAL CORRELATION: Clinical examination revealed somewhat hyperactive but symmetric reflexes in both the upper and lower extremities. Strength was preserved but sensation was altered in a distribution corresponding to the lateral femoral cutaneous nerve. The absence of evidence for high lumbar ra diculopathy in conjunction with characteristic distribution of sensory loss suggests meralgia paresthetica. Suspect symptoms relate to either ongoing compression or injury to the lateral femoral cutaneous nerve on the left. documented in this encounter Plan of Treatment Upcoming Encounters Date Type Department Care Team (Late st Contact Info) Description 12/31/2024 10:00 AM EST Office [place] [address] Mercy Amanda MD [facility] [address] [facility] [address] 04/01/2025 2:00 PM EDT Office [place] [phone] Erum Szymanski MD [facility] [place] [address] documented as of this encounter Visit Diagnoses Diagnosis Meralgia paresthetica of left side Meralgia paresthetica documented in this encounter Care Teams Primary Therapist Relationship Specialty Start Date End Date Sonido Cordoba PA [address] [place] [address] PCP - General Family Medicine 11/16/15 06/22/20 documented as of this encounter
--- OUTSIDE RECORDS SUMMARY | 2024-10-16 17:43 | XMS_ITS | Encounter Summary ---
Author Organization [facility] Address [facility] [place] [address] Care Team Providers Care Slide Developer Name Role Phone Latanya Wade MD Primary Care Provider [phone] Encounter Details Date Type Department Care Team (Late st Contact Info) Description 06/01/2015 11:43 AM EDT Anesthesia Event [place] [id number] Lazaro Sadler MD [facility] [address] [place] [address] Rainer Yi MD [facility] [address] [place] [address] Anesthesia Record Procedure Summary Procedure Name Responsible Anesthesiologist Anesthesia Start Time Anesthesia Stop Time NEPHROLITHOTOMY, (PCNL) PERCUTANEOUS (WRVU 12.41) (Right: Flank) Lazaro Sadler MD 06/01/15 1143 06/01/15 1443 Events Date Time Event Comment 06/01/2015 1142 1143 AN Verify 1143 Start 1143 An Start Data 1146 An Induction 1146 An Induction 1149 An Intubation 1157 Quick Note Turned to prone position 1158 Anesthesia Ready 1234 Quick Note Percutaneous ac cess 1433 Extubation/LMA Out To Delete (skip) the Extubation event, click the X below. 1433 an stop data 1443 Stop Meds Name Total Midazolam 2 mg fentaNYL 100 mcg IV Lidocaine 50 mg Propofol 250 mg Rocuronium 60 mg Dexamethasone 4 mg Neostigmine 2 mg Glycopyrrolate 0.4 mg ampicillin 1g vial attach to sodium chlo ride 0.9% 100 mL Mini-Bag Plus 1 g HYDROmorphone 0.8 mg gentamicin (GARAMYCIN) 261 mg in sodium chloride 0.9% 106.525 mL 320 mg lactated ringers infusion 1,000 mL 1,400 mL * Agents Name O2 Air N2O Sevoflurane (et) * Blood No blood administrations on file. Lines, Drains, and Airways Type Details Placement Removal Incision 04/05/15; abdomen; laparoscopic punctures (specify) (6); 07/03/22 (LDA cleanup utility RA#[id number]); 1715 (LDA cleanup utility RA#[id number]) 04/05/15 0000 by Daisha Art RN 07/03/22 1715 by Kimber Santiago (RETIRED) Peripheral IV Line - Single Lumen 04/05/15; 0900; metacarpal vein left (top of hand); [id number] catheter system; 18 gauge; Kristal Barajas RN; distraction, intradermal injection, tolerated well, appears comfortable, age-appropriate response; 06/01/15; 1556 04/05/15 0900 by Kristal Barajas RN 06/01/15 1556 by Nunu Walsh, NIMCO (RETIRED) Peripheral IV Line - Single Lumen 04/05/15; 0950; median vein right (underside of arm); 20 gauge; 06/01/15; 1556 04/05/15 0950 by Tammy Arias CRNA 06/01/15 1556 by Nunu Walsh, NIMCO Urethral Catheter 06/01/15; Urologic surgery; Physician order; indwelling double lumen catheter; latex, silicone coated; 20; inserted at this facility; 1; 10; 10; none; drainage bag to dependent drainage; 06/02/15; 0703 06/01/15 0000 by Kirill Viramontes RN 06/02/15 0703 by Nelly Boyd RN Incision 06/01/15; flank; 07/03/22 (LDA cleanup utility RA#[id number]); 1715 (LDA cleanup utility RA#[id number]) 06/01/15 0000 by Kirill Viramontes RN 07/03/22 1715 by Kimber Santiago (RETIRED) Peripheral IV Line - Single Lumen 06/01/15; 1134; metacarpal vein left (top of hand); [id number]-gpu-[id number] catheter system; 18 gauge, 1 in length; 06/02/15; 1233 06/01/15 1134 by Emma Fleming RN 06/02/15 1233 by Luma Millan LNA ETT Mask Ventilation: Ea sy (1); ETT Type: Cuffed, Oral; ETT Size: 7 mm; Che Blade: 2; Notes: Asleep, Stylette, Cricoid Pressure, Pre-O2; Attempts: 1; Laryngoscopy Grade: 2; ETT Placement Verified By: Auscultation, Capnometry, Visual; Secured at Teeth: 21 cm; Inserted by: alan; Removal Date: 06/01/15; Removal Time: 1433 06/01/15 1149 by Rainer Yi MD 06/01/15 1433 by Rainer Yi MD NG/OG Tube orogastric; 18 Fr; Taped; 06/01/15; 1556 06/01/15 1225 by 06/01/15 1556 by Nunu Walsh RN Nephrostomy Tube 06/01/15; 1403; righ t flank; drainage bag to dependent drainage; 24 Fr. [place] cath., inserted and then removed; 06/01/15; 1408 06/01/15 1403 by Kirill Viramontes, RN 06/01/15 1408 by Kirill Viramontes, RN documented in this encounter Social History [...] OR Notes * Anesthesia Postprocedure Evaluation - Rainer iY MD - 06/01/2015 2:43 PM EDT Patient: Vianney Saini Procedure(s) Performed: Procedure(s): NEPHROLITHOTOMY, (PCNL) PERCUTANEOUS PERCUTANEOUS INTRO GUIDE WIRE TO ACCESS RENAL PELVIS,AND OR URETER, W\DILATION CYSTOURETEROSCOPY, DIAGNOSTIC CYSTO, STENT PLACEMENT Actual Anesthetic: general Patient location: PACU Post-op pain: Adequate analgesia Post-op nausea: no nausea or vomiting Last Vitals: Filed Vitals: 06/01/15 1104 BP: 157/77 Pulse: 77 Temp: 37.1 ??C (98.8 ??F) Resp: 16 Post-op cardiovascular and respiratory status: is stable Level of consciousness: awake, alert and oriented Complications: no apparent complications and tolerated the procedure well Fluid Status: normal * Anesthesia Preprocedure Evaluation - Rainer Yi MD - 05/31/2015 4:39 PM EDT Images from the original note were not included. Pre-Anesthesia Evaluation for: Vianney Saini a 39 y.o. female. Procedure(s): NEPHROLITHOTOMY, (PCNL) PERCUTANEOUS PERCUTANEOUS INTRO GUIDE WIRE TO ACCESS RENAL PELVIS,AND OR URETER, W\DILATION CYSTOURETEROSCOPY, DIAGNOSTIC CYSTO, STENT PLACEMENT Patient Active Problem List Diagnosis ??? Obesity ??? Ulnar neuropathy at elbow of right upper extremity Per OSH records. Thought to be from lateral epicondylitis. ??? Hiatal hernia ??? Dyspepsia ??? Elbow pain, right Past Medical History Diagnosis Date ??? PTSD (post-traumatic stress disorder) Past Surgical History Procedure Laterality Date ??? Dilation and curettage of uterus 1994 ??? Tonsillectomy ??? Upper gi endoscopy, biopsy N/A 01/27/2015 EGD WITH BIOPSY performed by Brandt Barlow MD at [facility] ENDOSCOPY ??? Lap, esophagogast fundoplasty N/A 04/05/2015 LAPAROSCOPIC TYESHA FUNDOPLASTY performed by Valentín Moura MD at [facility] MAIN OR ??? N/A 04/05/2015 MODIFIER, HIATAL HERNIA performed by Valentín Moura MD at [facility] MAIN OR History Substance Use Topics ??? Smoking status: Former Smoker -- 0.50 packs/day for 6 years Types: Cigarettes Quit date: 01/25/1997 ??? Smokeless tobacco: Never Used ??? Alcohol Use: No History Drug Use No Allergies Allergen Reactions ??? Oxycodone Nausea And Vomiting Medications: MAR and/or home medications have been reviewed. Physical Exam: There were no vitals filed for this visit. There is no weight on file to calculate BMI. Airway Assessment: Mallampati: I TM distance: >3 FB Neck ROM: full Cardiovascular Assessment: Rhythm: regular Rate: normal Pulmonary Assessment: breath sounds clear to auscultation Dental Assessment: Misc Assessment: IV access: Peripheral line Anesthesia Plan: ASA 2 general, with a(n) intravenous induction 39 y.o. female with pmh significant for GERD/hiatal hernia (well controlled w/o meds s/p tyesha fundoplication ~8 weeks ago, Rodgers's esophagus noted on EGD), previous Ulnar neuropathy (no sxs for several years), and nephrolithiasis now presenting for PCNL. Patient's documented history was negative for seizures, CVA, cardiopulmonary disease, hepatic disease or coagulopathy. ) Exercise tolerance: >4 Mets Type and Screen: No results found for: ABORH Allergies: -- Oxycodone -- Nausea And Vomiting NPO Status: Appropriate Anesthetic hx: No prior complications with anesthesia Airway hx: MAC 4 w/ Gr 1 view Anesthetic Plan: GA with ETT Standard ASA monitoring Adequate IV access Region - Other Informed Consent: Anesthetic plan and risks discussed with patient and spouse. Plan discussed with attending. Misc. Assessment: documented in this encounter Plan of Treatment Upcoming Encounters Date Type Department Care Team (Late st Contact Info) Description 12/31/2024 10:00 AM EST [place] [phone] Mercy Amanda MD [facility] [address] 04/01/2025 2:00 PM EDT Office Visit Gastroenterology at [facility] ([place] [phone] Erum Szymanski MD [facility] [place] [address] documented as of this encounter Visit Diagnoses Not on filedocumented in this encounter Administered Medications Inactive Administered Medications - up to 3 most recent administrations Medication Order MAR Action Action Date Dose Rate Site ampicillin 1g vial attach to sodium chloride 0.9% 100 mL Mini-Bag Plus 1,000 mg (1 g), Intravenous, IT RISK ADVISOR TO O.R., 1 dose, On Sun06/01/15 at 1115, Administer over 15 Minutes, Day of Surgery (Day of Procedure), Indication for (Active or Suspected): Prophylaxis Given 06/01/2015 12:08 PM EDT 1 g dexamethasone (DECADRON) injection PRN, Starting on Sun06/01/15 at 1208, Until Sun06/01/15 at 1443, Anesthesia Intra-op, Routine Given 06/01/2015 12:08 PM EDT 4 mg fentaNYL 50 mcg/mL multi-dose injection PRN, Starting on Sun06/01/15 at 1144, Until Sun06/01/15 at 1443, Pain, Anesthesia Intra-op, Routine Given 06/01/2015 11:44 AM EDT 100 mcg gentamicin (GARAMYCIN) 261 mg in sodium chloride 0.9% 106.525 mL 261 mg, Intravenous, IT RISK ADVISOR TO O.R., 1 dose, On Sun06/01/15 at 1115, Administer over 60 Minutes, Day of Surgery (Day of Procedure), Indication for (Active or Suspected): Prophylaxis Given 06/01/2015 12:11 PM EDT 320 mg glycopyrrolate (ROBINUL) multi-dose injection PRN, Starting on Sun06/01/15 at 1408, Until Sun06/01/15 at 1443, Anesthesia Intra-op, Routine Given 06/01/2015 2:08 PM EDT 0.4 mg HYDROmorphone (DILAUDID) injection PRN, Starting on Sun06/01/15 at 1251, Until Sun06/01/15 at 1443, Pain, Anesthesia Intra-op, Routine Given 06/01/2015 1:51 PM EDT 0.4 mg Given 06/01/2015 12:51 PM EDT 0.4 mg lactated ringers infusion 1,000 mL 1,000 mL, at 100 mL/hr, Intravenous, CONTINUOUS, Starting on Sun06/01/15 at 1115, Until Sun06/01/15 at 1525, Day of Surgery (Day of Procedure) New Bag 06/01/2015 1:54 PM EDT New Bag 06/01/2015 11:27 AM EDT lidocaine (PF) (XYLOCAINE) 100 mg/5 mL (2 %) injection PRN, Starting on Sun06/01/15 at 1144, Until Sun06/01/15 at 1443, Anesthesia Intra-op, Routine Given 06/01/2015 11:44 AM EDT 50 mg midazolam (PF) (VERSED) 1 mg/mL multi-dose injection PRN, Starting on Sun06/01/15 at 1138, Until Sun06/01/15 at 1443, Sleep, Anesthesia Intra-op, Routine Given 06/01/2015 11:38 AM EDT 2 mg neostigmine (PROSTIGMINE) multi-dose injection PRN, Starting on Sun06/01/15 at 1408, Until Sun06/01/15 at 1443, Anesthesia Intra-op, Routine Given 06/01/2015 2:08 PM EDT 2 mg propofol (DIPRIVAN) 10 mg/mL bolus injection (Anesthesia) PRN, Starting on Sun06/01/15 at 1146, Until Sun06/01/15 at 1443, Anesthesia Intra-op Given 06/01/2015 11:46 AM EDT 25 0 mg rocuronium (ZEMURON) multi-dose injection PRN, Starting on Sun06/01/15 at 1147, Until Sun06/01/15 at 1443, Anesthesia Intra-op, Routine Given 06/01/2015 12:38 PM EDT 10 mg Given 06/01/2015 11:47 AM EDT 50 mg documented in this encounter Care Teams Slide Developer Relationship Specialty Start Date End Date Latanya Wade MD [facility] [address] [place] [address] [place] [address] PCP - General 08/27/13 11/01/15 documented as of this encounter
--- OUTSIDE RECORDS SUMMARY | 2024-10-16 17:43 | XMS_ITS | Encounter Summary ---
Author Organization [place] [id number] Care Team Providers Care Advertising Consultant Name Role Phone Latanya Wade MD Primary Care Provider [phone] Reason for Referral * Physical Therapy (Routine) - Closed Specialty Diagnoses / Procedures Referred By Contac t Referred To Contact Physical Therapy Diagnoses Medial collateral ligament sprain of knee, right, initial encounter Lizbeth Guzman APRN [facility] [place] [address] [facility] [place] [address] Referral ID Status Reason Start Date Expiration Date V isits Requested Visits Authorized [id number] Closed Evaluate and Treat 07/30/2015 07/29/2016 24 24 * Physical Therapy (Routine) - Closed Specialty Diagnoses / Procedures Referred By Conteulalio madrigal Referred To Contact Physical Therapy Diagnoses Pain in left shoulder Impingement syndrome of shoulder, left Injury of superior glenoid labrum of shoulder joint, left, initial encounter Lizbeth Guzman APRN [facility] [place] [address] [facility] [place] [address] Referral ID Status Reason Start Date Expiration Date V isits Requested Visits Authorized [id number] Closed Evaluate and Treat 07/30/2015 07/29/2016 24 24 Reason for Visit * Reason Comments Left Shoulder Pain Encounter Details Date Type Department Care Team (Late st Contact Info) Description 07/30/2015 2:25 PM EDT Office [place] [address] Iris Andres MD [facility] [place] [address] Medial collateral ligament sprain of knee, right, initial encounter (Primary Dx); Pain in left shoulder; Right knee pain; Impingement syndrome of shoulder, left [726.2]; Injury of superior glenoid labrum of shoulder joint, left, initial encounter [840.7] Discharge Disposition: Home Social History Tobacco Use [...] Sign Reading Time Taken Comments Blood Pressure 138/51 07/30/2015 3:10 PM EDT Pulse 80 07/30/2015 3:10 PM EDT Temperature - - Respiratory Rate - - Oxygen Saturation - - Inhaled Oxygen Concentration - - Weight 87.1 kg (192 lb) 07/30/2015 3:10 PM EDT Height 160 cm (5' 3) 07/30/2015 3:10 PM EDT pt reported Body Mass Index 34.01 07/30/2015 3:10 PM EDT documented in this encounter Progress Notes * Lizbeth Guzman, CAR DUMPER - 07/30/2015 3:08 PM EDT [facility] El[facility] [place], [place] New Patient Evaluation Date of Evaluation: 07/30/2015 Referring Provider: Latanya Wade Chief Complaint: 1. LEFT shoulder pain. 2. Right knee pain Consult for above from PCP History of Present Illness: Vianney Saini is a RHD 39 y.o. non-smoker, non-diabetic female with a chief complaint of left shoulder pain. Duration: a few months. Injury: Yes, While lifting a heavy object overhead felt pain and a pop in the LEFT shoulder. Her pain is moderate and intermittent. She is using Tylenol PRN. 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 There has been no work incident form completed and she tells me that there is no worker's compensation claim involved. Previous injury: none. Modalities thus far: relative rest and avoidance of painful activity. Avoids NSAID's due to stomach issues. Neck Pain: None. No radiculopathy. Able to work: Full duty. She reports that she twisted her right knee and a valgus force a few weeks ago work. Again, Not specifically work related, yet she claims this did happen during her normal working hours. No worker's compensation claim involved however. Since her reportedinjury, There has been intermittent pain on the inside of her medial knee with no instability, no swelling, and no locking complaints. No history of knee problems. Her health is otherwise reportedly s table and she's here for definitive management. Past Medical History: Patient Active Problem List Diagnosis Date Noted ??? Hx of tonsillectomy 08/01/2015 ??? History of dilation and curettage 08/01/2015 ??? History of Tyesha fundoplication 06/201508/01/2015 ??? Pain in left shoulder 07/30/2015 ??? Right knee pain 07/30/2015 ??? Obesity 04/05/2015 ??? Ulnar neuropathy at elbow of right upper extremity 04/02/2015 ??? Hiatal hernia 04/02/2015 ??? Dyspepsia 12/28/2014 ??? Elbow pain, right 08/27/2013 Surgical History: Past Surgical History Procedure Laterality Date ??? Dilation and curettage of uterus 1994 ??? Tonsillectomy ??? Pro upper gi endoscopy, biopsy N/A 01/27/2015 EGD WITH BIOPSY performed by Brandt Barlow MD at [facility] ??? Pro lap, esophagogast fundoplasty N/A 04/05/2015 LAPAROSCOPIC TYESHA FUNDOPLASTY performed by Valentín Moura MD at [facility] OR ??? N/A 04/05/2015 MODIFIER, HIATAL HERNIA performed by Valentín Moura MD at [facility] OR ??? Pro percut remv kid stone, up to 2 cm Right 06/01/2015 NEPHROLITHOTOMY, ([facility]) PERCUTANEOUS performed by Darius Nuñez Jr., MD at [facility] OR ??? Pro percut dilatn renal tract Right 06/01/2015 PERCUTANEOUS INTRO GUIDE WIRE TO ACCESS RENAL PELVIS,AND OR URETER, W\DILATION performed by Darius Nuñez Jr., MD at [facility] OR ??? Pro cysto/uretero/pyeloscopy, dx Right 06/01/2015 CYSTOURETEROSCOPY, DIAGNOSTIC performed by Darius Nuñez Jr., MD at [facility] OR ??? Pro cystoscopy, insert ureteral stent Right 06/01/2015 CYSTO, STENT PLACEMENT performed by Darius Nuñez Jr., MD at [facility] OR History Social History ??? Marital Status: Spouse Name: N/A Number of Children: N/A ??? Years of Education: N/A Occupational History ??? [employer] at [employer] Social History Main Topics ??? Smoking status: Former Smoker -- 0.50 packs/day for 6 years Types: Cigarettes Quit date: 01/25/1997 ??? Smokeless tobacco: Never Used ??? Alcohol Use: No ??? Drug Use: No ??? Sexual Activity: Partners: Male Control/ Protection: Surgical Social History Narrative Allergies: Oxycodone Current Outpatient Prescriptions on File Prior to Visit Medication Sig Dispense Refill ??? acetaminophen (TYLENOL) 325 mg Tablet Take 2 tablets by mouth every 4 hours as needed for Pain. ??? [DISCONTINUED] oxybutynin (DITROPAN-XL) 5 mg Tablet Extended Rel 24 hr Take 1 tablet by mouth daily as needed (urinary frequency, bladder spasms). 14 tablet 0 ??? [DISCONTINUED] HYDROmorphone (DILAUDID) 1 mg/mL Liquid Take 2-4 mLs by mouth every 3 hours as needed. 120 mL 0 ??? diphenhydrAMINE (BENADRYL) 50 mg/mL Solution Inject 0.5 mLs into the vein every 6 hours as needed for Itching. 10 mL ??? [DISCONTINUED] Sbtumbdcrzfve-Sgmmmleq-Mlryrb Tablet Take by mouth. No current facility-administered medications on file prior to visit. Family History Problem Relation Age of Onset ??? Diabetes Mother ??? Diabetes Maternal Grandmother ??? Diabetes Maternal Grandfather Review of Systems: Denies fever, chills, nausea, vomiting, vision change, shortness of breath, chest pain, vision changes, headaches, bowel or bladder problem, ear, nose, sinus problem, neuro or psychiatric, or endocrine disorder not addressed above. There is no history of bleeding disorders. No DVT or PE history. No sleep apnea or CPAP use. There are no reported problems with anesthesia. Physical Examination Filed Vitals: 07/30/15 1510 BP: 138/51 Pulse: 80 Height: 160 cm (5' 3) Weight: 87.091 kg (192 lb) Body mass index is 34.02 kg/(m^2). General: This is a very pleasant 39 year old Female in [facility]. Alert and oriented X3. Affect is brightand appropriate. Here with her Son. HEENT - normocephalic, atraumatic, sclera clear. c-spine with good and full ROM. Negative Spurling's test. Chest: Respiratory rate 12 non labored. Abdominal: Flat and non-distended. Remainder of Musculoskeletal: C, T, L & S Spines demonstratesupple pain-free ROM with no focal tenderness. Contralateral right Upper extremity examination demonstrates full active and passive ROM of all joints with good stability and without stigmata of rheumatoid disease. Remainder of the left lower extremity musculoskeletal examination is normal. Neurologic: Intact motor and sensory function distally with symmetric reflexes left to right. Vascular: Warm, well-perfused feet bilaterally with DP & PT pulses present. Absence of stigmata of peripheral vascular disease. No open lesions. Dermatologic: No significant lesions on lower extremities noted Orthopaedic LEFT shoulder exam: Posture: + rounded shoulders. There is some drooping of the left shoulder and favoring due to pain.No gross deformities. No evidence of infection. Neck: There is essentially full range of motion. Negative Spurling's test. Range of Motion: Active forward flexion with a painful arc at to 170?? with a soft endpoint. External rotation to approximate 70?? with a soft endpoint. Abduction with a painful arc to approximately 150??. Internal rotation to approximate L4-L5. Acromioclavicular Joint: Mildly tender to palpation negative cross adduction. Rotator Cuff: Rotator cuff is grossly intact in all planes of motion. Painful with empty can. Bellypress negative external rotation lag. Impingement: There is a positive impingement Neer and Rizvi. Stability: Negative glenohumeral instability negative apprehension sign. Long Head of Biceps Tendon: There is tenderness at the proximal biceps tendon with a negative Speeds, Yergason's and Toombs's. Scapula: There is no obvious scapular dyskinesia noted. Skin: Dry and intact. Neurological/Vascular: Neurologic examination of the upper extremity is intact with normal motor function of the radial, median, ulnar, axillary and musculocutaneous nerves. Sensory function is intact in the radial, median, ulnar, axillary, and lateral antebrachial cutaneous nerve distributions. The hand was well perfused. Radial pulses are 2+ and equal bilateral. Brief right knee exam Gait steady. Non-antalgic. No assistive devices. SLR capability is strong. EHL/FHL 5/5. No effusion. Full range of motion: 0-130 with mild anterior pressure with extremes of flexion. Negative apprehension sign of the PF joint. Hypermobile patella. There is TTP at the right knee MCL with 1-2 mm solid endpoint. ACL Vida's 1-2 mm SEP and no posterior sulcus. LCL 1-2 mm SEP. Foot is sensate and well perfused, DP and PT 2+ to palpation. Sensation intact to 1st webspace, medial and lateral sole and dorsum. Imaging: LEFT shoulder x-ray reviewed image by image in the office today there is no fracture or dislocation. There is a downward sloping acromion. Outside MRI report reveals no rotator cuff tear with a probable SLAP tear. Assessment: This is a very pleasant 39 year old Female with LEFT shoulder pain with clinical exam consistent with rotator cuff impingement with a probable SLAP tear by MRI scan no mechanical complaints however. Secondarily, a recent right knee twisting injury with a probable grade 1 MCL sprain. Consider intra- articular pathology. Plan: Dr Andres looked in on the patient and agrees with above. Treatment options and risks/benefits discussed from least to most invasive. Patient understands options. At this time we will recommend acomprehensive physical therapy program with Sandra Preston PT in the office today for rotator cuff impingement. She is unable to use anti-inflammatories due to GI issues. Therefore we could try acetaminophen no greater than 3 g per day. Cool packs when necessary. We could consider the use of Voltaren gel if no improvement with aforementioned medication. We will reevaluate her progress in 6-8 weeks, if she continues symptomatic we will consider a left shoulder subacromial cortisone injection as an adjunct her treatment. She is comfortable with this approach. Regarding the right knee pain, we will give her a hinged knee brace and reviewed some quad sets avoiding twisting or torquing motions tothe right knee for 6 weeks. Cool packs. We can reevaluate in at her next appointment if she continue symptomatically may need further imaging such as an plain x-rays and possible MRI scan. Pt agrees,questions solicited/answered, will return as scheduled and as needed for concerns or questions. Pt understands they may also call us prn for above. Department of Orthopaedic Surgery [place], [place] [address] documented in this encounter Plan of Treatment Upcoming Encounters Date Type Department Care Team (Late st Contact Info) Description 12/31/2024 10:00 AM EST Office [place] [address] Mercy Amanda MD [facility] [address] 04/01/2025 2:00 PM EDT Office [place] [address] Erum Szymanski MD [facility] [place] [address] Scheduled Referrals Name Type Priority Associated Diagnoses Orde r Schedule Referral to Physical Therapy Outpatient Referral Routine Pain in left shoulder Impingement syndrome of shoulder, left [726.2] Injury of superior glenoid labrum of shoulder joint, left, initial encounter [840.7] Ordered: 07/30/2015 Referral to Physical Therapy Outpatient Referral Routine Medial collateral ligament sprain of knee, right, initial encounter Ordered: 07/30/2015 documented as of this encounter Visit Diagnoses Diagnosis Medial collateral ligament sprain of knee, right, initial encounter- Primary Pain in left shoulder Pain in joint, shoulder region Right knee pain Pain in joint, lower leg Impingement syndrome of shoulder, left [726.2] Injury of superior glenoid labrum of shoulder joint, left, initial encounter [840.7] documented in this encounter Care Teams Advertising Consultant Relationship Specialty Start Date End Date Latanya Wade MD [facility] [address] [place] [address] [place] [address] PCP - General 08/27/13 11/01/15 documented as of this encounter
--- OUTSIDE RECORDS SUMMARY | 2024-10-16 17:43 | XMS_ITS | Encounter Summary ---
[place] [address] Care Team Providers Care It Administrator Name Role Phone Sonido Cordoba Primary Care Provider [phone] Encounter Details Date Type Department Care Team (Late st Contact Info) Description 10/26/2015 [place] [phone] Sonido Cordoba PA [address] [place], [place] [address] Social History Tobacco Use Types Packs/Day Years [...] AM EST Office [place] [phone] Mercy Amanda MD [facility] [address] [place] [address] 04/01/2025 2:00 PM EDT Office [place] [address] Erum Szymanski MD [facility] [place] [address] documented as of this encounter Visit Diagnoses Not on filedocumented in this encounter Care Teams It Administrator Relationship Specialty Start Date End Date Sonido Cordoba PA [address] [place] [address] PCP - General Family Medicine 11/16/15 06/22/20 documented as of this encounter
--- OUTSIDE RECORDS SUMMARY | 2024-10-16 17:43 | XMS_ITS | Encounter Summary ---
[place] [address] Care Team Providers Care Goodwill Representative Name Role Phone Latanya Wade MD Primary Care Provider [phone] Encounter Details Date Type Department Care Team (Late st Contact Info) Description 04/05/2015 9:36 AM EDT Anesthesia Event [place] [address] David Velasco MD [facility] [place] [address] Facundo Quintanilla MD [facility] [place] [address] Anesthesia Record Procedure Summary Procedure Name Responsible Anesthesiologist Anesthesia Start Time Anesthesia Stop Time LAPAROSCOPIC TYESHA FUNDOPLASTY (WRVU 18.1) (Abdomen) David Velasco MD 04/05/15 0936 04/05/15 1221 Events Date Time Event Comment 04/05/2015 0936 Start 0939 AN Verify 0939 An Start Data 0945 An Induction 0946 An Intubation 0951 Anesthesia Ready 1009 Procedure Start 1011 Break/Relief In Facundo bartholomew MD 1016 Quick Note To steep revers e Trend 1023 Break/Relief Out 1110 Break/Relief In Facundo harrison MD 1129 Quick Note Oral temp probe removed. Dilator bougie inserted orally in conjunction with surgeon. No event. 1137 Break/Relief Out 1146 Quick Note Bougie removed easily 1210 Extubation/LMA Out Criteria met. Suctioned and extubated to . VSS. Moving adequate air. Comfortable. 1213 an stop data 1220 Handoff Anesthesia care was transferred after review of the patient's history, current anesthetic/surgical status and plan, according to the Provider Handoff Checklist. 1221 Stop In PACU 13. Rep ort to [employer] Segal. VSS. Pt comfortable. 1615 Meds Name Total Midazolam 2 mg fentaNYL 350 mcg IV Lidocaine 50 mg Propofol 200 mg Rocuronium 70 mg Ondansetron 8 mg Dexamethasone 8 mg Neostigmine 4 mg Glycopyrrolate 0.6 mg ceFAZolin (ANCEF) 2g in dextrose 5% 50 m L 2 g Esmolol 10 mg meTOPROLOL 4 mg HYDROmorphone 0.6 mg lactated ringers infusion 1,000 mL 900 m L Lactated Ringers 500 mL * Agents Name O2 Air Sevoflurane (et) * Blood No blood administrations on file. Lines, Drains, and Airways Type Details Placement Removal Incision 04/05/15; abdomen; laparoscopic punctures (specify) (6); 07/03/22 (LDA cleanup utility RA#[id number]); 1715 (LDA cleanup utility RA#[id number]) 04/05/15 0000 by Daisha Art RN 07/03/22 1715 by Kimber Santiago Urethral Catheter 04/05/15; Abdominal surgery; indwelling double lumen catheter; 100% silicone; 16; inserted at this facility; 1; 10; 10; none; drainage bag to dependent drainage; urethral catheter removed, tubing intact; 04/06/15; 0604/05/15 0000 by Daisha Art RN 04/06/15 0629 by Mi Martinez RN (RETIRED) Peripheral IV Line - Single Lumen 04/05/15; 0900; metacarpal vein left (top of hand); [id number] catheter system; 18 gauge; Kristal Karl RN; distraction, intradermal injection, tolerated well, appears comfortable, age-appropriate response; 06/01/15; 15504/05/15 0900 by Kristal Barajas RN 06/01/15 155 by Nunu Walsh RN ETT Mask Ventilation: Ea sy (1); ETT Type: Cuffed, Oral; ETT Size: 7 mm; Mac Blade: 4; Notes: Asleep, Pre-O2, Cricoid Pressure, Stylette; Attempts: 1; Laryngoscopy Grade: 1; ETT Placement Verified By: Auscultation, Capnometry, Visual; Secured at Teeth: 21 cm; Inserted by: Tammy Arias; Removal Date: 04/05/15; Removal Time: 1210 04/05/15 0946 by Tammy Arias CRNA 04/05/15 1210 by Tammy Arias CRNA (RETIRED) Peripheral IV Line - Single Lumen 04/05/15; 0950; median vein right (underside of arm); 20 gauge; 06/01/15; 15504/05/15 0950 by Tammy Arias CRNA 06/01/15 1556 by Nunu Walsh RN documented in this encounter Social History [...] OR Notes * Anesthesia Postprocedure Evaluation - Facundo Quintanilla MD - 04/05/2015 1:06 PM EDT Patient: Vianney Saini Procedure(s) Performed: Procedure(s): LAPAROSCOPIC TYESHA FUNDOPLASTY MODIFIER, HIATAL HERNIA Actual Anesthetic: General Patient location: PACU Post-op pain: Adequate analgesia Post-op nausea: no nausea or vomiting Last Vitals: Filed Vitals: 04/05/15 1245 BP: 162/86 Pulse: 68 Temp: Resp: 17 Post-op cardiovascular and respiratory status: is stable Level of consciousness: awake, alert and oriented Complications: no apparent complications and tolerated the procedure well. No evidence of recall. Fluid Status: normal * Anesthesia Preprocedure Evaluation - Facundo Quintanilla MD - 04/02/2015 2:59 PM EDT Pre-Anesthesia Evaluation for: Vianney Saini a 39 y.o. female. Procedure(s): LAPAROSCOPIC TYESHA FUNDOPLASTY MODIFIER, HIATAL HERNIA Patient Active Problem List Diagnosis ??? 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 Smoking status: Former Smoker -- 0.50 packs/day for 6 years Types: Cigarettes Quit date: 01/25/1997 ??? Smokeless tobacco: Not on file ??? Alcohol Use: No History Drug Use No Allergies Allergen Reactions ??? Oxycodone Nausea And Vomiting Medications: MAR and/or home medications have been reviewed. Physical Exam: There were no vitals filed for this visit. There is no weight on file to calculate BMI. Airway Assessment: Mallampati: II TM distance: <3 FB Neck ROM: full Cardiovascular Assessment: Pulmonary Assessment: Dental Assessment: - normal exam Misc Assessment: IV access: Peripheral line Anesthesia Plan: ASA 2 general, with a(n) intravenous induction 39 y.o. woman with the below listed medical history going to the OR for lap Tyesha fundoplication with Dr. Moura. Previous Anesthesia: None on file PMH notable for: #PTSD/ depression #hiatal hernia/GERD--daily sx. None at the moment but some early this AM #hx of right upper extremity neuropathy-seen by pain medicine in 2012. Discussed that this may be exacerbated by immobility. Pt still has intermittent ulnar distribution symptoms. No other cardiopulmonary complains. >4mets exercise tolerance. No recent URI. Allergies: -- Oxycodone -- Nausea And Vomiting Labs: CBC: Hb13, WBC 11, Platelets 259 Chem: Na 139, K 4.4, GFR >60 T+S: none Coags: none Previous Cardiac Workup: none Weight: Estimated body mass index is 36.80 kg/(m^2) as calculated from the following: Height as of 12/28/14: 160 cm (5' 3). Weight as of 02/23/15: 94.212 kg (207 lb 11.2 oz). Baseline BP: BP Readings from Last 3 Encounters: 03/31/15 : 125/48 02/23/15 : 131/58 01/27/15 : 126/72 NPO solids since midnight. NPO clears since 0700. Full code The patient was consented for general anesthesia after the risks and benefits of anesthesia were discussed, and all questions answered. Consent paperwork was placed in the patient's chart. Region - Other Informed Consent: Anesthetic plan and risks discussed with patient. Use of blood products discussed with patient whom consented to blood products. Plan discussed with resident and attending[place] [facility] [place]: documented in this encounter Plan of Treatment Upcoming Encounters Date Type Department Care Team (Late st Contact Info) Description 12/31/2024 10:00 AM EST Office [place] [address] Mecry Amanda MD [facility] [address] 04/01/2025 2:00 PM EDT Office [place] [address] Erum Szymanski MD [facility] [place] [address] documented as of this encounter Visit Diagnoses Not on filedocumented in this encounter Administered Medications Inactive Administered Medications - up to 3 most recent administrations Medication Order MAR Action Action Date Dose Rate Site ceFAZolin (ANCEF) 2g in dextrose 5% 50 mL 2 g, Intravenous, EVERY 3 HOURS, 1 dose, First dose on Sun04/05/15 at 0900, Administer over 30 Minutes, Intra-Operative (Intra-Procedure), Indication for (Active or Suspected): Prophylaxis Given 04/05/2015 9:56 AM EDT 2 g dexamethasone (DECADRON) injection PRN, Starting on Sun04/05/15 at 0952, Until Sun04/05/15 at 1221, Anesthesia Intra-op, Routine Given 04/05/2015 9:52 AM EDT 8 mg esmolol (BREVIBLOC) injection PRN, Starting on Sun04/05/15 at 1041, Until Sun04/05/15 at 1221, Anesthesia Intra-op, Routine Given 04/05/2015 10:41 AM EDT 10 mg fentaNYL 50 mcg/mL multi-dose injection PRN, Starting on Sun04/05/15 at 0942, Until Sun04/05/15 at 1221, Pain, Anesthesia Intra-op, Routine Given 04/05/2015 10:22 AM EDT 50 mcg Given 04/05/2015 10:21 AM EDT 50 mcg Given 04/05/2015 10:20 AM EDT 50 mcg glycopyrrolate (ROBINUL) multi-dose injection PRN, Starting on Sun04/05/15 at 1155, Until Sun04/05/15 at 1221, Anesthesia Intra-op, Routine Given 04/05/2015 11:55 AM EDT 0.6 mg HYDROmorphone (DILAUDID) injection PRN, Starting on Sun04/05/15 at 1154, Until Sun04/05/15 at 1221, Pain, Anesthesia Intra-op, Routine Given 04/05/2015 12:04 PM EDT 0.2 mg Given 04/05/2015 11:54 AM EDT 0.4 mg lactated ringers infusion CONTINUOUS PRN, Starting on Sun04/05/15 at 0950, Until Sun04/05/15 at 1221, Anesthesia Intra-op New Bag 04/05/2015 9:50 AM EDT lidocaine (PF) (XYLOCAINE) 100 mg/5 mL (2 %) injection PRN, Starting on Sun04/05/15 at 0944, Until Sun04/05/15 at 1221, Anesthesia Intra-op, Routine Given 04/05/2015 9:44 AM EDT 50 mg meTOPROLOL (LOPRESSOR) injection PRN, Starting on Sun04/05/15 at 1057, Until Sun04/05/15 at 1221, High Blood Pressure, Anesthesia Intra-op, Routine Given 04/05/2015 11:48 AM EDT 1 mg Given 04/05/2015 11:45 AM EDT 1 mg Given 04/05/2015 11:34 AM EDT 1 mg midazolam (PF) (VERSED) 1 mg/mL multi-dose injection PRN, Starting on Sun04/05/15 at 0936, Until Sun04/05/15 at 1221, Sleep, Anesthesia Intra-op, Routine Given 04/05/2015 9:36 AM EDT 2 mg neostigmine (PROSTIGMINE) multi-dose injection PRN, Starting on Sun04/05/15 at 1155, Until Sun04/05/15 at 1221, Anesthesia Intra-op, Routine Given 04/05/2015 11:55 AM EDT 4 mg ondansetron (ZOFRAN) injection PRN, Starting on Sun04/05/15 at 1134, Until Sun04/05/15 at 1221, Nausea, Anesthesia Intra-op, Routine Given 04/05/2015 11:55 AM EDT 4 mg Given 04/05/2015 11:34 AM EDT 4 mg propofol (DIPRIVAN) 10 mg/mL bolus injection (Anesthesia) PRN, Starting on Sun04/05/15 at 0943, Until Sun04/05/15 at 1221, Anesthesia Intra-op Given 04/05/2015 9:46 AM EDT 50 mg Given 04/05/2015 9:45 AM EDT 150 mg rocuronium (ZEMURON) multi-dose injection PRN, Starting on Sun04/05/15 at 0943, Until Sun04/05/15 at 1221, Anesthesia Intra-op, Routine Given 04/05/2015 10:45 AM EDT 20 mg Given 04/05/2015 9:45 AM EDT 50 mg documented in this encounter Care Teams Goodwill Representative Relationship Specialty Start Date End Date Latayna Wade MD [facility] [address] [place] [address] [place] [address] PCP - General 08/27/13 11/01/15 documented as of this encounter
--- OUTSIDE RECORDS SUMMARY | 2024-10-16 17:43 | XMS_ITS | Encounter Summary ---
Author Organization [facility] [place] [address] Care Team Providers Care Track Subway Repair Supervisor Name Role Phone Latanya Wade MD Primary Care Provider [phone] Encounter Details Date Type Department Care Team (Late st Contact Info) Description 07/30/2015 1:00 PM EDT Office Visit Physical Therapy at [facility] [address] [place] [phone] Sandra Amaro, PT [facility] PHYSICAL MEDICINE & [place] [address] Iris Andres MD [facility] [place] [address] Pain in left shoulder Social History Tobacco [...] as of this encounter Progress Notes * Sandra Preston, PT - 08/09/2015 8:30 AM EDT [facility] // brief, PT eval and instruction in therapeutic exercise. DIAGNOSIS: 1. Pain in left shoulder DATE of injury: few months ago Referring Physician: Dr. Da Andres MD Total treatment time 25 minutes/total coded time 15 minutes. S: Patient presents to upper extremity clinic with right shoulder pain. onset: lifting at work and felt a pop in the shoulder. Additionally injured the LEFT knee while twisting. Past treatment: NA for the shoulder or the knee region. Patient is right hand dominant. O: This patient was seen in the Upper Extremity Clinic with the above diagnosis. PAIN: at best: 1/10; at worst: 6/10 Located: diffuse; Describes pain as: aching, sharp and shooting POSTURE: right shoulder down slopping compared to left, rounded shoulder posture AROM: Flexion: 170 ABD: 160 with painful arc ER: at the side 60 deg IR: reaching behind back: L4 PROM: Flexion: 170 ABD: 160 ER:70 IR: 60 scapulohumeral rhythm: normal FLEXIBILITY: decreased flexibility: pectoralis, biceps and posterior capsule STRENGTH: IR: 5/5 ER: 4+/5 with pain flexion: 5/5 with pain abduction: 4+/5 with pain biceps: 5/5 Scap: 4+/5 NEUROVASCULAR: intact SPECIAL TESTS: refer to MD note for more details A: Clinical exam is consistent with shoulder pain associated with impingement and weakness at the shoulder globally. Patient will benefit from strengthening, stabilization, home program, manual therapy including joint mobilizations of the shoulder to improve functional mobility. The patient was able to demonstrate correctly the home exercise program independently after proper instruction. The patient was also given a written home exercise program. Additionally patient was diagnosed by referring provider with MCL strain in the right knee region -issued quad sets to patient. If she should need further rehab for the knee, this will be completed at follow up visits. Refer to scan doc in chart review for exercises issued to patient. P: follow up in physical therapy weekly for strengthening and stabilization, home program and manual therapy REHAB POTENTIAL: GOOD for achieving below stated goals: SHORT TERM PT GOALS: (..15) 1. patient will be indep with home exercise program. RN CORRECTIONAL PT GOALS: (12.15) 1. patient should be able to wash their hair and back without shoulder discomfort. 2. patient should be able to lie on the involved side without shoulder pain. 3. patient should be able to remove clothing overhead without shoulder pain. 4. Pain-free reaching, and lifting over shoulder level during ADL and work activities. documented in this encounter Plan of Treatment Upcoming Encounters Date Type Department Care Team (Late st Contact Info) Description 12/31/2024 10:00 AM EST Office [place] [address] Mercy Amanda MD [facility] DR [facility] [address] 04/01/2025 2:00 PM EDT Office [place] [address] Erum Szymanski MD [facility] [place] [address] documented as of this encounter Visit Diagnoses Diagnosis Pain in left shoulder Pain in joint, shoulder region documented in this encounter Care Teams Track Subway Repair Supervisor Relationship Specialty Start Date End Date Latanya Wade MD [facility] [address] [place] [address] [place] [address] PCP - General 08/27/13 11/01/15 documented as of this encounter
--- OUTSIDE RECORDS SUMMARY | 2024-10-16 17:43 | XMS_ITS | Encounter Summary ---
[place] [address] Care Team Providers Care Nurse Care Manager Name Role Phone Latanya Wade MD Primary Care Provider [phone] Encounter Details Date Type Department Care Team (Latest Contact Info) Description 05/04/2015 9:17 AM EDT - 05/04/2015 11:59 PM EDT Hospital [place] [address] CLIN[address], DR GAVIN Right nephrolithiasis Social History Tobacco Use Types Packs/Day [...] as needed. 210 mL 0 04/06/2015 06/02/2015 Niszxsuntejsx-Pdvmdawm-Kf tein Tablet Take by mouth. 07/30/2015 documented as of this encounter Plan of Treatment Upcoming Encounters Date Type Department Care Team (Late st Contact Info) Description 12/31/2024 10:00 AM EST Office [place] [address] Mercy Amanda MD [facility] DR [facility] [address] 04/01/2025 2:00 PM EDT Office [place] [phone] Erum Szymanski MD [facility] [place] [address] documented as of this encounter Procedures Procedure Name Priority Date/Time Associated Diagnosis Comments CT ABDOMEN AND PELVIS WO CONTRAST Routine 05/04/2015 9:37 AM EDT Right nephrolithiasis documented in this encounter Results * CT abdomen & [...] this encounter Visit Diagnoses Diagnosis Right nephrolithiasis documented in this encounter Care Teams Nurse Care Manager Relationship Specialty Start Date End Date Latanya Wade MD [facility] [address] [place] [address] [place] [address] PCP - General 08/27/13 11/01/15 documented as of this encounter
--- OUTSIDE RECORDS SUMMARY | 2024-10-16 17:43 | XMS_ITS | Encounter Summary ---
Author Organization [facility] Address [facility] [place] [address] Care Team Providers Care Brass Wind Instruments Tube Bender Name Role Phone Latanya Wade MD Primary Care Provider Reason for Visit * Reason Comments Nephrolithiasis Encounter Details Date Type Department Care Team (Late st Contact Info) Description 05/04/2015 12:00 PM EDT [place] [address] Darius Nuñez Jr., MD [facility] [place] [address] Right nephrolithiasis Discharge Disposition: Home Social History [...] Sign Reading Time Taken Comments Blood Pressure 121/57 05/04/2015 11:54 AM EDT Pulse 86 05/04/2015 11:54 AM EDT Temperature 36.5 ??C (97.7 ??F) 05/04/2015 11:54 AM E DT Respiratory Rate 20 05/04/2015 11:54 AM EDT Oxygen Saturation 98% 05/04/2015 11:54 AM EDT Inhaled Oxygen Concentration - - Weight 87 kg (191 lb 12.8 oz) 05/04/2015 11:54 A M EDT Height 160 cm (5' 3) 05/04/2015 11:54 AM EDT Body Mass Index 33.98 05/04/2015 11:54 AM EDT documented in this encounter Progress Notes * Darius Nuñez Jr., MD - 05/04/2015 12:08 PM EDT HPI: Vianney Saini is a 39 y.o. woman who returns for urologic follow up regarding a right renal stone. She has a prior history of urolithiasis, having undergone SWL in 2005. However, she is unsure whether it had worked as she never passed any stones. Her most recent episode of renal colic was in mid-March 2015, at which time there was acute onset pain, 10/10 in severity, right flank and RLQ in location, sharp in nature, 1 day in duration. It had resolved and has not recurred other than intermittent episodes of very mild back pain. She is recently s/p paraesophageal hernia repair, is recovering well. Review of Systems: As above, otherwise unchanged since last visit of 04/06/15 PMHx: nephrolithiasis PSHx: D&C; tonsillectomy; right SWL; paraesophageal hernia repair FamHx: cousin with family h/o urolithiasis SocHx: no tobacco; no EtOH Physical Exam Constitutional: She is oriented to person, place, and time. She appears well- developed and well-nourished. No distress. HENT: Head: Normocephalic and atraumatic. Eyes: No scleral icterus. Cardiovascular: Normal rate and regular rhythm. Pulmonary/Chest: Effort normal and breath sounds normal. No respiratory distress. She has no wheezes. She has no rales. She exhibits no tenderness. Abdominal: Soft. She exhibits no distension. There is no tenderness. There is no rebound and no guarding. Incisions healing well, C/D/I Genitourinary: No CVA tenderness to percussion bilaterally on exam today Musculoskeletal: She exhibits no edema or tenderness. Lymphadenopathy: She has no cervical adenopathy. Neurological: She is alert and oriented to person, place, and time. Skin: Skin is warm and dry. She is not diaphoretic. Psychiatric: She has a normal mood and affect. Her behavior is normal. Vitals reviewed. Imaging Studies: I independently reviewed the CT from today (05/04/15). This reveals a 1.5 cm non-obstructing right renal pelvic stone. Impression/Plan: Non-obstructing, currently asymptomatic right renal stone approximately 1.5cm We discussed management options of watchful waiting, open or laparoscopic surgery, PCNL, Ureteroscopy, and SWL and the relative risks and benefits. We discussed that given its size, SWL, URS, and PCNL are each reasonable considerations. SWL would be associated with the quickest recovery. After revie wing pros and cons of each, she expressed desire to proceed with PCNL, understanding it is the mostinvasive and thus has the highest attendant risks associated. With regard to right percutaneous nephrolithotomy, we specifically discussed risks of bleeding, infection, injury to or loss of kidney, and injury to surrounding structures including lung, pleura, bowel, blood vessels, nerves, and solid organs, as well as risks of anesthesia including heart attack,stroke, DVT, pulmonary embolus, or . We discussed that there may be a need for subsequent staged procedures. She would like to attempt definitive removal of the right renal stone, understands the risks and benefits of the options, and has requested that we proceed with PCNL. Urine will be sentfor culture to aid in antibiotic selection. I have asked her to call with any additional questions. documented in this encounter Miscellaneous Notes * Addendum Note - Jeff Chacko LPN - 05/04/2015 1:57 PM EDTAddended by: JEFF CHACKO on: 05/04/2015 01:57 PM Modules accepted: Orders documented in this encounter Plan of Treatment Upcoming Encounters Date Type Department Care Team (Kylee Contact Info) Description 12/31/2024 10:00 AM EST Office [place] [address] Mercy Amanda MD [facility] [address] [facility] [address] 04/01/2025 2:00 PM EDT Office [place] [phone] Erum Szymanski MD [facility] [place] [address] documented as of this encounter Procedures Procedure Name Priority Date/Time Associated Diagnosis Comments URINE CULTURE Routine 05/04/2015 1:56 PM EDT Right nephrolithiasis documented in this encounter Results * (ABNORMAL) Urine culture Clean Catch Urine (05/04/2015 1:56 PM EDT) Urine Culture 50,000-99,000 cfu/ml mixed mucosal poli Note: Multiple bacterial morphotypes present. Suggest appropriate recollection with timely delivery to the laboratory, if clinically significant. (A) MELISSA CURTIS Urine specimen obtained by clean catch procedure (specimen) 05/04/2015 1:56 PM EDT 05/04/2015 3:19 PM EDT Narrative Resulting Agency Comment Spec In Lab Darius Nuñez Jr., MD MICROBIOLOGY - GEN ERAL ORDERABLES MELISSA CURTIS documented in this encounter Visit Diagnoses Diagnosis Right nephrolithiasis documented in this encounter Care Teams Brass Wind Instruments Tube Bender Relationship Specialty Start Date End Date Latanya Wade MD [facility] [address] [place] [address] [place] [address] PCP - General 08/27/13 11/01/15 documented as of this encounter
--- OUTSIDE RECORDS SUMMARY | 2024-10-16 17:43 | XMS_ITS | Encounter Summary ---
[place] [address] Care Team Providers Care Natural Foods Clerk Name Role Phone Latanya Wade MD Primary Care Provider [phone] Reason for Visit * Reason Onset Date Comments Prior Authorization 02/23/2015 Encounter Details Date Type Department Care Team (Late st Contact Info) Description 02/23/2015 Telephone [place] [phone] Melina Hobbs CMA GASTROENTEROLOGY DEPT Prior Authorization Social History Tobacco Use Types [...] Telephone Encounter - Melina Hobbs CMA - 02/23/2015 4:57 PM EDT Prior Auth Medication name/dose/directions: pantoprazole 40 mg BID take one tablet by mouth BID Pharmacy Name and phone number: [facility] [phone] Insurance name and phone number[place] [phone] Insurance ID number: [id number] Faxed to health plan on: 02/23/2015 Medications tried and failed: pantoprazole QD Prilosec : both no effective after awhile Health plan decision: Medication has been approved from 02/24/2015 until 02/25/2016 prior authorization # [id number] Tracking # [id number] documented in this encounter Plan of Treatment Upcoming Encounters Date Type Department Care Team (Late st Contact Info) Description 12/31/2024 10:00 AM EST Office Visit [place] [phone] Mercy Amanda MD [facility] [address] [place] [address] 04/01/2025 2:00 PM EDT Office Visit [place] [address] Erum Szymanski MD [facility] [place] [address] documented as of this encounter Visit Diagnoses Not on filedocumented in this encounter Care Teams Natural Foods Clerk Relationship Specialty Start Date End Date Latanya Wade MD [facility] [address] [place] [address] [place] [address] PCP - General 08/27/13 11/01/15 documented as of this encounter
--- OUTSIDE RECORDS SUMMARY | 2024-10-16 17:44 | XMS_ITS | Encounter Summary ---
Author Organization [facility] Address [address] [place] [address] Care Team Providers Care Wind Tunnel Engineer Name Role Phone Unavailable Primary Care Provider Unavailabl e Encounter Details Date Type Department Care Team (Late st Contact Info) Description 05/31/2010 Results Only [facility] Laboratory Services - [facility] [address] [place] [phone] Lilian Wade MD [facility] [address] [place], [place] [id number] Social History Tobacco Use Types Packs/Day Years Used Date Smoking Tobacco: Never Assessed Comments Unknown Sex and Gender Information Value Date Recorded Sex Assigned at Not on file Legal Sex Female 18:20 EST Gender Identity Not on file Sexual Orientation Not on file documented as of this encounter Plan of Treatment Not on file documented as of this encounter Procedures Procedure Name Priority Date/Time Associated Diagnosis Comments HPV DETECTION, HIGH RISK TYPES Routine 05/31/2010 13:58 EDT CYTOPATHOLOGY Routine 05/31/2010 0:00 EDT documented in this encounter Results * HUMAN PAPILLOMA VIRUS DNA TEST (05/31/2010 13:58 EDT) Specimen Description Cervix, ThinPrep vial [facility] Result Negative for HPV types 16, 18, 31, 33, 35, 39, 45, 51, 52, 56, 58, 59, and 68. [facility] Report Status Final 06/08/2010 [facility] 05/31/2010 13:5 8 EDT 06/06/2010 13:58 EDT us Lilian Wade MD MICROBIOLOGY - GENERAL ORDERABLE S Final Result [facility] [address] [place] [id number] * CYTOPATHOLOGY (05/31/2010 0:00 EDT) Pathology Report: CYTOPATHOLOGY REPORT ? Reports generated via electronic interface contain original data; ? however they are lacking the format of the original report. ? Caution should be taken when reading/interpreti ng unformatted reports. ? Name: ? VIANNEY SAINI ? Accession #: ? [id number] ? : ? 1975 (Age: 34) ??F ?Collect Date: ? 05/31/2010 ? Location: ? [facility] ? Receive Date: ? 06/02/2010 ? Provider: ?LILIAN READY MD ? Copy to: ? Specimen/Source: ?Pap Test, Cervix/Endocervix, ThinPrep Imaging System ? with manual evaluation ? Last Menstrual Period: ? 7/1/10 ? Hormonal/Contracep tive Status: ? Tubal ligation: S/P 2004 ? Other: ? HPVDX - HPV testing requested regardless of diagnosis on current ThinPrep Pap ?? test. ? SPECIMEN ADEQUACY ? Satisfactory for Evaluation ? - transformation zone component present ? GENERAL CATEGORIZATION ? Negative for Intraepithelial Lesion or Malignancy ? Document reviewed and electronically signed by: ? Yudith Toño, CT(ASCP) ? Report Date: ??06/06/2010 07:31 ? End of Report ? [facility] 05/31/2010 06/02/2010 us Lilian Wade MD PATHOLOGY ORDERABLES Final Resul t Performing Organization Address City/State/[facility] Co de Phone Number [facility] [address] [place] [address] documented in this encounter Visit Diagnoses Not on filedocumented in this encounter
--- OUTSIDE RECORDS SUMMARY | 2024-10-16 17:44 | XMS_ITS | Encounter Summary ---
Author Organization [facility] Address [address] [place] [address] Care Team Providers Care Claim Taker Name Role Phone Unknown, Provider MD Primary Care Provider Unava ilable Unknown, Provider MD Unavailable Unavailable Encounter Details Date Type Department Care Team (Late st Contact Info) Description 12/19/2019 Lab Requisition [facility] Pathology & Laboratory Medicine - [address] [address] Erasmo Portillo PA-C [address] [place] [address] Encounter for other general examination Social History Tobacco Use Types Packs/Day Years [...] Priority Date/Time Associated Diagnosis Comments SURGICAL PATHOLOGY Today 12/18/2019 11 :30 EST Encounter for other general examination documented in this encounter Results * SURGICAL PATHOLOGY (12/18/2019 11:30 EST) Final Diagnosis A. SKIN OF SHOULDER, LEFT, EXCISIONAL BIOPSY: - Melanocytic nevus, intradermal type. B. SKIN OF BACK, LEFT, EXCISIONAL BIOPSY: - Melanocytic nevus, intradermal type. 12/22/2019 13:33 EST [facility] at 1333 Microscopic Description Sections are of a papule with mild epidermal hyperplasia and hyperkeratosis. There is a proliferation of melanocytes within the dermis. The proliferation consists of nests, cords, and strands that diminish in size with descent into the dermis. The melanocytes are slightly enlarged but generally have round-oval nuclei and a moderate amount of cytoplasm. The melanocytes show variety performer maturation. (Dr. Cavanaugh)/tmg 12/22/2019 13:33 [facility] Clinical History A. Skin colored nevus, 3D, 4 x 5 mm x2 years, increasing in size; B. Skin colored nevus, 3D 6 x 7 mm x2 years, increasing in size 12/22/2019 13:33 [facility] Attestation By the signature below, the attending physician certifies that they have 1) personally conducted a gross and/or microscopic examination of the described specimen(s), and/or personally interpreted the results of laboratory testing of the described specimen(s), and 2) personally rendered or confirmed the above diagnosis. 12/22/2019 13:33 [facility] at 1333 Gross Description A. Received in formalin labelled with proper patient identification (initials C, P) and L shoulder is an unoriented elliptical excision gray-white skin (0.7 x 0.6 cm) excised to a depth 0.2 cm. There is a gray-brown nevus that is 0.6 x 0.4 x 0.3 cm. The margins are inked blue. The specimen is trisected and submitted entirely in A1. B. Received in formalin labelled with proper patient identification (initials C, P) and L back is an unoriented elliptical excision of gray-white skin (0.9 x 0.6 cm and is excised to a depth of 0.3 cm. There is a firm nodule that measures 0.5 x 0.4 x 0.3 cm. The margins are inked blue. The specimen is serially sectioned and entirely submitted as B2 central sections and B1 tips, reverse en face. Guanaco Summers 12/19/2019 17:21 12/22/2019 13:33 [facility] Scanned Images 12/22/2019 13:33 [facility] Tissue TISSUE SPECIMEN FROM SKIN / Unknown 12/18/2019 11:30 EST 12/19/2019 15:40 EST Tissue specimen (specimen) SPECIMEN FROM SKIN / Unknown 12/18/2019 11:30 EST 12/19/2019 15:40 EST us Erasmo Portillo PA-C PATHOLOGY ORDERABLES Hannah barrios Result [facility] [address] [place] [address] documented in this encounter Visit Diagnoses Diagnosis Encounter for other general examination documented in this encounter Care Teams Claim Taker Relationship Specialty Start Date End Date Unknown, Provider, PCP - General 08/22/17 Unknown, ProviderMD 08/22/17 documented as of this encounter
--- OUTSIDE RECORDS SUMMARY | 2024-10-16 17:44 | XMS_ITS | Encounter Summary ---
Author Organization [facility] Address [address] [place] [address] Care Team Providers Care Agriculture Inspector Name Role Phone Unavailable Primary Care Provider Unavailabl e Encounter Details Date Type Department Care Team (Late st Contact Info) Description 06/27/2000 Results Only [facility] conversion [address] [place] [address] Gracy Moy, [facility] [address] [place] [address] [place] [address] Social History Tobacco Use Types Packs/Day Years [...] Procedure Name Priority Date/Time Associated Diagnosis Comments CYTOPATHOLOGY Routine 06/27/2000 0:00 EDT documented in this encounter Results * CYTOPATHOLOGY (06/27/2000 0:00 EDT) Pathology Report: CYTOPATHOLOGY REPORT Reports generated via electronic interface contain original data; however they are lacking the format of the original report. Caution should be taken when reading/interpreti ng unformatted reports. Name: ? SON VIANNEY ? Accession #: ? [id number] : ? 1975 (Age: 24) ??F ?Collect Date: ? 06/27/2000 Location: ? [facility] ? Receive Date: ? 07/02/2000 Provider: ?GRACY MOY [facility] Copy to: ? Specimen/Source: ?ThinPrep Pap Test, Cervix/Endocervix Last Menstrual Period: ? 05/08/00 Hormonal/Contracep tive Status: ? Depo-Provera ? SPECIMEN ADEQUACY ? Satisfactory for evaluation. GENERAL CATEGORIZATION ? Within Normal Limits ? Document reviewed and electronically signed by: ? CLAYTON De La O(ASCP) ? Report Date: ??07/02/2000 13:55 End of Report [facility] 06/27/2000 07/02/2000 us Gracy Moy [facility] PATHOLOGY ORDERABLES Final R esult [facility] [address] [place] [address] documented in this encounter Visit Diagnoses Not on filedocumented in this encounter
--- OUTSIDE RECORDS SUMMARY | 2024-10-16 17:44 | XMS_ITS | Encounter Summary ---
Author Organization [facility] Address [address] [place] [address] Care Team Providers Care Ticket Agent Name Role Phone Unknown, Provider MD Primary Care Provider Unava ilable Unknown, Provider MD Unavailable Unavailable Encounter Details Date Type Department Care Team (Latest Contact Info) Description 12/05/2022 Lab Requisition [facility] Pathology & Laboratory Medicine - [facility] [address] [place] [address] Sonido Cordoba PA-C [address] [place] [phone] Encounter for gynecological examination (general) (routine) without abnormal findings Social History Tobacco Use Types Packs/Day Years Used Date Smoking Tobacco: Never Assessed Interpersonal Safety Answer Date Record ed Physically Hurt Never 06/06/2020 Verbally Threaten Not on file 06/06/2020 Comments Unknown Sex and Gender Information Value Date Recorded Sex Assigned at Not on file Legal Sex Female 18:20 EST Gender Identity Not on file Sexual Orientation Not on file documented as of this encounter Plan of Treatment Not on file documented as of this encounter Procedures Procedure Name Priority Date/Time Associated Diagnosis Comments PAP TEST Today 12/01/2022 11:00 EST Encounter for gynecological examination (general) (routine) without abnormal findings HPV DNA DETECTION WITH GENOTYPING, PCR Today 12/01/2022 11:00 EST Encounter for gynecological examination (general) (routine) without abnormal findings documented in this encounter Results * HUMAN PAPILLOMAVIRUS (HPV) DETECTION-HIGH RISK TYPES (12/01/2022 11:00 EST) HPV other High Risk types, PCR Negative Negative 12/12/2022 14:42 [facility] Comment:No E6 or E7 mRNA is detected from HPV types 16,18,31,33,35,39,45,51,52,56,58,59,66, and 68 by ventilating equipment installer mediated amplification. Papanicolaou smear specimen (specimen) CERVIX UTERI STRUCTURE / Unknown 12/01/2022 11:00 EST 12/11/2022 13:26 EST us Sonido Cordoba PA-C MICROBIOLOGY - GENERAL O RDERABLES Final Result [facility] [address] [place] [address] * PAP TEST (12/01/2022 11:00 EST) Specimens A. Cervix and/or Endocervix , ThinPrep Imaging System with Manual Evaluation 12/12/2022 14:42 [facility] Specimen Adequacy Satisfactory for Evaluation - transformation zone component absent 12/12/2022 14:42 [facility] General Categorization Negative for intraepithelial lesion or malignancy 12/12/2022 14:42 [facility] Attestation . 12/12/2022 14:42 [facility] at 1442 Clinical History SEE BELOW 12/12/19 23 14:42 [facility] HPV The result for the Human Papillomavirus (HPV) Detection-High Risk Types is Negative. No E6 or E7 mRNA is detected from HPV types 16,18,31,33,35,39 ,45,51,52,56,58,5 9,66, and 68 by ventilating equipment installer mediated amplification.Penny ting was performed on specimen [id number] and was resulted on 12/12/2022 1442 EST by DOROTHY, LAB INSTRUMENT RESULTS IN 12/12/2022 14:42 [facility] Performing Lab [facility] 12/12/2022 14:42 [facility] Scanned Images 12/12/2022 14:42 [facility] Papanicolaou smear specimen (specimen) CERVIX UTERI STRUCTURE / Unknown 12/01/2022 11:00 EST 12/05/2022 9:23 EST us Sonido Cordoba PA-C PATHOLOGY ORDERABLES Fin al Result Performing Organization Address City/State/[facility] Co de Phone Number [facility] [address] [place] [address] documented in this encounter Visit Diagnoses Diagnosis Encounter for gynecological examination (general) (routine) without abnormal findings documented in this encounter Care Teams Ticket Agent Relationship Specialty Start Date End Date Unknown, ProviderMD PCP - General 08/22/17 Unknown, ProviderMD 08/22/17 documented as of this encounter
--- OUTSIDE RECORDS SUMMARY | 2024-10-16 17:44 | XMS_ITS | Encounter Summary ---
Author Organization [facility] Address [address] [place] [address] Care Team Providers Care Pharmacy Retail Support Specialist Name Role Phone Unavailable Primary Care Provider Unavailabl e Encounter Details Date Type Department Care Team (Late st Contact Info) Description 01/11/2004 Results Only [facility] conversion [address] [place] [address] Amanda Damian CNM [address] [place], [place] [id number] Social History Tobacco Use Types Packs/Day Years [...] Priority Date/Time Associated Diagnosis Comments CYTOPATHOLOGY Routine 01/11/2004 0:00 EST documented in this encounter Results * CYTOPATHOLOGY (01/11/2004 0:00 EST) Pathology Report: CYTOPATHOLOGY REPORT Reports generated via electronic interface contain original data; however they are lacking the format of the original report. Caution should be taken when reading/interpreti ng unformatted reports. Name: ? VIANNEY SAINI ? Accession #: ? [id number] : ? 1975 (Age: 28) ??F ?Collect Date: ? 01/11/2004 Location: ? [facility] ? Receive Date: ? 01/13/2004 Provider: ?AMANDA DAMIAN CNM Copy to: ? Specimen/Source: ?ThinPrep Pap Test, Cervix/Endocervix Last Menstrual Period: ? 12/31/2003 Menstrual/Pregnanc y Status: ? Post ? SPECIMEN ADEQUACY ? Satisfactory for Evaluation - transformation zone component present GENERAL CATEGORIZATION ? Negative for Intraepithelial Lesion or Malignancy ? Document reviewed and electronically signed by: ? Yeimy Johnson, GABRIELA(ASCP)(IAC) ? Report Date: ??01/19/2004 10:31 End of Report [facility] 01/11/2004 01/13/2004 us Amanda Damian CNM PATHOLOGY ORDERABLES Final Resul t [facility] [address] [place] [address] documented in this encounter Visit Diagnoses Not on filedocumented in this encounter
--- OUTSIDE RECORDS SUMMARY | 2024-10-16 17:44 | XMS_ITS | Encounter Summary ---
Author Organization [facility] Address [address] [place] [address] Care Team Providers Care Crown Presser Name Role Phone Unknown, Provider MD Primary Care Provider Unava ilable Unknown, Provider MD Unavailable Unavailable Encounter Details Date Type Department Care Team (Late st Contact Info) Description 10/22/2021 Lab Requisition [facility] Pathology & Laboratory Medicine - [facility] [address] [place] [address] Outr Resulting Lab, Provider Social History Tobacco Use Types Packs/Day Years [...] Procedure Name Priority Date/Time Associated Diagnosis Comments INSULIN Routine 10/21/2021 11:00 EST documented in this encounter Results * INSULIN (10/21/2021 11:00 EST) Insulin 26.4 <29.0 uIU/mL 10/27/2021 9:43 EST [facility] Comment: Displayed Reference Range applies to fasting specimens only. Blood VENOUS BLOOD / Unknown 10/21/2021 11:00 EST 10/23/2021 16:43 EST us Provider Outr Resulting Lab CHEMISTRY & BLOOD GA S ORDERABLES Final Result [facility] [address] [place] [address] documented in this encounter Visit Diagnoses Not on filedocumented in this encounter Care Teams Crown Presser Relationship Specialty Start Date End Date Unknown, Provider, PCP - General 08/22/17 Unknown, ProviderMD 08/22/17 documented as of this encounter
--- OUTSIDE RECORDS SUMMARY | 2024-10-16 17:44 | XMS_ITS | Referral Summary ---
Author Organization [facility] Address [address] [place] [address] Care Team Providers Care Farmworker Rice Name Role Phone Unknown, Provider MD Primary Care Provider Unava ilable Unknown, Provider MD Unavailable Unavailable Social History Tobacco Use Types Packs/Day Years Used Date Smoking Tobacco: Never Assessed Interpersonal Safety Answer Date Record ed Physically Hurt Never 06/06/2020 Verbally Threaten Not on file 06/06/2020 Comments Unknown Sex and Gender Information Value Date Recorded Sex Assigned at Not on file Legal Sex Female 18:20 EST Gender Identity Not on file Sexual Orientation Not on file Plan of Treatment Not on file Insurance MEDICAID [place] Care Teams Farmworker Rice Relationship Specialty Start Date End Date Unknown, ProviderMD PCP - General 08/22/17 Unknown, MD Tito 08/22/17
--- OUTSIDE RECORDS SUMMARY | 2024-10-16 17:44 | XMS_ITS | Encounter Summary ---
Author Organization [facility] Address [address] [place] [address] Care Team Providers Care Container Packer Operator Name Role Phone Unknown, Provider MD Primary Care Provider Unava ilable Unknown, Provider MD Primary Care Provider Unava ilable Unknown, Provider MD Unavailable Unavailable Encounter Details Date Type Department Care Team ([facility] st Contact Info) Description 08/17/2017 Results Only [facility] [phone] Guero Ravi PA-C [address] [place] [phone] Social History Tobacco Use Types Packs/Day Years [...] Name Priority Date/Time Associated Diagnosis Comments PAP TEST- RESULT ONLY Routine 08/17/2017 0:00 EDT documented in this encounter Results * PAP TEST- RESULT ONLY (08/17/2017 0:00 EDT) Pathology Report: CYTOPATHOLOGY REPORT Reports generated via electronic interface contain original data; however they are lacking the format of the original report. Caution should be taken when reading/interpreti ng unformatted reports. Name: ? VIANNEY GONZALEZ ? Accession #: ? [id number] ? : ? 1975 (Age: 41) ??F ?Collect Date: ? 08/17/2017 ? Location: ? [facility] ? Receive Date: ? 08/22/2017 ? Provider: GUERO RAVI PA-C Copy to: ? Final Report SPECIMEN ADEQUACY ? Satisfactory for Evaluation - transformation zone component absent GENERAL CATEGORIZATION ? Negative for Intraepithelial Lesion or Malignancy ?? Last Menstrual Period: 08/07/2017 Hormonal/Contracep tive status: Tubal ligation Specimen/Source: ??Pap Test, Cervix/Endocervix, ThinPrep Imaging System with manual evaluation Document reviewed and electronically signed by: ? Yudith Lundberg, CT(ASCP) ? Report ??Date: 08/30/2017 07:42 HPV with Pap Test ? Date Ordered: ? 08/30/2017 ? Status: ?? Signed Out ?Date Complete: ? 08/31/2017 ? By: ??System Interface ? Date Reported: ? 08/31/2017 ? Interpretation RESULT: Negative for HPV. No E6 or E7 mRNA is detected from HPV types 16,18,31,33,35, 39,45,51,52,56,58, 59,66, and 68 by instant printer operator mediated amplification. Comments Document reviewed and electronically signed by: ? System Interface ? Report date: 08/31/2017 By the signature above, the attending physician certifies that he/she has personally conducted a gross and/or microscopic examination of the described specimens and rendered or confirmed the above diagnosis. End of Report [facility] 08/17/2017 08/22/2017 us Guero Ravi PA-C PATHOLOGY ORDERABLES Yamil al Result [facility] [address] [place] [id number] documented in this encounter Visit Diagnoses Not on filedocumented in this encounter Care Teams Container Packer Operator Relationship Specialty Start Date End Date Unknown, Provider, PCP - General 09/17/15 08/21/17 Unknown, ProviderMD PCP - General 08/22/17 Unknown, ProviderMD 08/22/17 documented as of this encounter
--- OUTSIDE RECORDS SUMMARY | 2024-10-16 17:44 | XMS_ITS | Encounter Summary ---
Author Organization [facility] Address [address] [place] [address] Care Team Providers Care Sheet Metal Mechanic Name Role Phone Unavailable Primary Care Provider Unavailabl e Encounter Details Date Type Department Care Team (Late st Contact Info) Description 11/27/2003 Results Only [facility] conversion [address] [place] [address] Valentín Alex MD [address] [place], [place] [id number] Social History Tobacco Use Types Packs/Day Years [...] Priority Date/Time Associated Diagnosis Comments SURGICAL PATHOLOGY Routine 11/27/2003 0:00 EST documented in this encounter Results * SURGICAL PATHOLOGY (11/27/2003 0:00 EST) Pathology Report: SURGICAL PATHOLOGY REPORT Reports generated via electronic interface contain original data; however they are lacking the format of the original report. Caution should be taken when reading/interpreti ng unformatted reports. Name: ? PARVEEN EMIL ? Accession #: ? [id number] ? : ? 1975 (Age: 28) ??F ? Collect Date: ? 11/27/2003 ? Location: ? [facility] ? Receive Date: ? 11/27/2003 ? Provider: VALENTÍN ALEX MD Copy to: ÁNGELA BAZAN MD ? Final Pathologic Diagnosis: A. ?Fallopian tube, right, tubal ligation: 1. ?No pathologic features. ??See comment. B. ?Fallopian tube, left, tubal ligation. 1. ?No pathologic features, complete cross sections obtained. Comment: ? The entire specimen from the right fallopian tube was submitted as (A1) and (A2). ??Despite attempts at rotating the tissue specimen within the paraffin block, complete cross sections as proved by microscopic examination could not be identified. ??However, the specimen appeared to be a cylinder of tissue consistent with fallopian tube. ??Thus, although complete cross sections are not proved histologically, I favor that indeed they were obtained and that our lack of ability to identify complete cross sections rests with artifact of tangential sectioning. Deeper levels of specimen A were examined. Document reviewed and electronically signed by: INDU CELESTE MD Report ??Date: 12/04/2003 14:11 By the signature above, the attending physician certifies that he/she has personally conducted a gross and/or microscopic examination of the described specimens and rendered or confirmed the above diagnosis. Specimen(s) Received: A. ?Right fallopian tube (#1) B. ?Left fallopian tube (#2) Clinical History: ? Desires sterilization post ? Gross Description: ? Received in formalin labelled Parveen and right fallopian is a portion of fallopian tube that measures 0.7 cm in length with a diameter of 0.4 cm. ??The specimen is submitted completely as (A1) and (A2). ?? Received in formalin labelled Parveen and L fallopian is an S-shaped portion of fallopian tube that measures 1.5 cm in length with a diameter of 0.4 cm. ??Two sales representative womens health sections are submitted as (B). ??(Dr. Monroy)/[facility] End of Report NEHEMIAS ROSADO 11/27/2003 11/27/2003 15: 21 EST us Valentín Alex MD PATHOLOGY ORDERABLES Final Resul t NEHEMIAS ROSADO [address] [place] [address] documented in this encounter Visit Diagnoses Not on filedocumented in this encounter
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
--- OUTSIDE RECORDS SUMMARY | 2024-10-16 17:44 | XMS_ITS | Encounter Summary ---
Author Organization [facility] Address [address] [place] [address] Care Team Providers Care Display Manager Name Role Phone Unknown, Provider MD Primary Care Provider Unava ilable Unknown, Provider MD Unavailable Unavailable Encounter Details Date Type Department Care Team (Late st Contact Info) Description 12/06/2021 Lab Requisition [facility] Pathology & [place] [address] Outr Resulting Lab, Provider Social History Tobacco [...] Procedure Name Priority Date/Time Associated Diagnosis Comments ZZCOVID-19 TEST [facility] PCR Today 12/06/2021 10:00 EST COVID-19 TESTING Routine 12/06/2021 10:0 0 EST documented in this encounter Results * COVID-19 TEST [facility] PCR (12/06/2021 10:00 EST) Swab 12/06/2021 10:0 0 EST 12/06/2021 22:35 EST us Provider Outr Resulting Lab MICROBIOLOGY - GENER AL ORDERABLES Final Result [facility] [address] [place] [address] * COVID-19 TESTING (12/06/2021 10:00 EST) COVID-19 rt-PCR Result Negative Negative 12/07/2021 14:27 EST [facility] Comment: This test has not been FDA cleared or approved. This test has been authorized by FDA under an EUA for use by authorized laboratories. This test has been authorized only for detection of nucleic acid from 2019-nCoV, not for any other viruses or pathogens. This test is only authorized for the duration of the declaration that circumstances exist justifying the authorization of emergency use of in vitro diagnostic tests for detection and/or diagnosis of 2019-nCoV under section 564(b)(1) of Act, 21 U.S.C ?? 360bbb-3(b) (1), unless the authorization is terminated or revoked sooner. Negative results do not preclude 2019-nCoV infection and should not be used as the sole basis for treatment or other patient management decisions. Negative results must be combined with clinical observations, patient history, and epidemiological information. Testing was performed using the petar SARS-CoV-2 assay ([employer] on the Petar 6800 System Performing Lab Petar [address] [facility] Lab 12/07/2021 14:27 EST [facility] Swab 12/06/2021 10:0 0 EST 12/06/2021 22:35 EST us Provider Outr Resulting Lab MICROBIOLOGY - GENER AL ORDERABLES Final Result Performing Organization Address City/State/[facility] Co de Phone Number [facility] [address] [place] [address] documented in this encounter Visit Diagnoses Not on filedocumented in this encounter Care Teams Display Manager Relationship Specialty Start Date End Date Unknown, Provider, PCP - General 08/22/17 Unknown, ProviderMD 08/22/17 documented as of this encounter
--- OUTSIDE RECORDS SUMMARY | 2024-10-16 17:44 | XMS_ITS | Encounter Summary ---
[place] [address] Care Team Providers Care Tool Rental Technician Name Role Phone Latanya Wade MD Primary Care Provider [phone] Reason for Visit * Reason Onset Date Comments Abnormal Lab 08/29/2013 Encounter Details Date Type Department Care Team (Late st Contact Info) Description 08/29/2013 Telephone [place] [address] Sofie Guzman SALVAGE WORKER [facility] [place] [address] Abnormal Lab Social History Tobacco Use Types Packs/Day Years Used Date Smoking Tobacco: Former Cigarettes 0.5 6 0 01/25/1991 - 01/25/1997 Sex and Gender Information Value Date Recorded Sex Assigned at Not on file Gender Identity Female 08/09/2020 11:37 PM EDT Sexual Orientation Not on file documented as of this encounter Miscellaneous Notes * Telephone Encounter - Sofie Guzman APRN - 08/29/2013 3:29 PM EDT Vianney Carcamo was seen in the pain clinic and labs were drawn. The sed rate was normal, the CRP did not suggest acute infection. The lyme was positive and we are awaiting the second part of that test. She is aware the second part of the test is pending, but will speak to her PCP on Sunday when she sees her PCP next. documented in this encounter Plan of Treatment Upcoming Encounters Date Type Department Care Team (Late st Contact Info) Description 12/31/2024 10:00 AM EST [place] [address] Meryc Amanda MD [facility] [address] [place] [address] 04/01/2025 2:00 PM EDT Office [place] [address] Erum Szymanski MD [facility] [place] [address] documented as of this encounter Visit Diagnoses Not on filedocumented in this encounter Care Teams Tool Rental Technician Relationship Specialty Start Date End Date Latanya aWde MD [facility] [address] [place] [address] [place] [address] PCP - General 08/27/13 11/01/15 documented as of this encounter
--- OUTSIDE RECORDS SUMMARY | 2024-10-16 17:44 | XMS_ITS | Encounter Summary ---
Author Organization [facility] Address [address] [place] [address] Care Team Providers Care Brake Lining Driller Name Role Phone Unavailable Primary Care Provider Unavailabl e Encounter Details Date Type Department Care Team (Late st Contact Info) Description 02/22/2005 Results Only [facility] conversion [address] [place] [address] Gracy Moy, [facility] [address] [place] [address] [place] [address] Social History Tobacco Use Types [...] Priority Date/Time Associated Diagnosis Comments CYTOPATHOLOGY Routine 02/22/2005 0:00 EDT documented in this encounter Results * CYTOPATHOLOGY (02/22/2005 0:00 EDT) Pathology Report: CYTOPATHOLOGY REPORT Reports generated via electronic interface contain original data; however they are lacking the format of the original report. Caution should be taken when reading/interpreti ng unformatted reports. Name: ? SON EMIL ? Accession #: ? [id number] : ? 1975 (Age: 29) ??F ?Collect Date: ? 02/22/2005 Location: ? [facility] ? Receive Date: ? 02/23/2005 Provider: ?GRACY MOY WARP KNITTER HELPER Copy to: ? Specimen/Source: ?ThinPrep Pap Test, Cervix/Endocervix Last Menstrual Period: ? 01/27/05 Other: ? HPVA - HPV testing requested if ASC-US on the current ThinPrep Pap test. ? SPECIMEN ADEQUACY ? Satisfactory for Evaluation - transformation zone component present GENERAL CATEGORIZATION ? Negative for Intraepithelial Lesion or Malignancy ? Document reviewed and electronically signed by: ? Smitha Dawn CT(ASCP) ? Report Date: ??03/01/2005 09:14 End of Report NEHEMIAS ROSADO 02/22/2005 02/23/2005 us Gracy Moy WARP KNITTER HELPER PATHOLOGY ORDERABLES Final R esult NEHEMIAS ROSADO [address] [place] [address] documented in this encounter Visit Diagnoses Not on filedocumented in this encounter
--- OUTSIDE RECORDS SUMMARY | 2024-10-16 17:44 | XMS_ITS | Encounter Summary ---
Author Organization [facility] Address [facility] [address] [place] [address] Care Team Providers Care Iron Bender Name Role Phone Latanya Wade MD Primary Care Provider [phone] Encounter Details Date Type Department Care Team (Latest Contact Info) Description 01/27/2015 9:22 AM EDT - 01/27/2015 11:59 PM EDT Hospital En[place] [address] CLINIC, Brandt Harris MD [facility] [place] [address] Dyspepsia Discharge Disposition: Home Social History Tobacco Use [...] Sig Dispensed Refills Start Date End Date pantoprazole (PROTONIX) 40 mg Tablet, Delayed Release (E.C.) Take 40 mg by mouth daily. 01/28/2015 documented as of this encounter Plan of Treatment Upcoming Encounters Date Type Department Care Team (Late st Contact Info) Description 12/31/2024 10:00 AM EST Office [place] [phone] Mercy Amanda MD [facility] [address] [place] [address] 04/01/2025 2:00 PM EDT Office [place] [address] Erum Szymanski MD [facility] [place] [address] documented as of this encounter Procedures Procedure Name Priority Date/Time Associated Diagnosis Comments US ABDOMEN LIMITED Routine 01/27/2015 9: 59 AM EDT Dyspepsia documented in this encounter Results * US abdomen limited (01/27/2015 9:59 AM EDT) Anatomical Region Laterality Modality Abdomen Ultrasound 01/27/2015 9:59 AM EDT Narrative 01/27/2015 12:52 PM EDT Abdominal ?(Signed Final 01/27/2015 12:52 ? pm) Patient Info ID #: ? [id number] ?: ??[birth year] (39 yrs) Name: ? VIANNEY Chao ? Visit Date: 01/27/2015 09:56 am ? LOIS Performed By Performed By: ?Simi Lopez RDMS Attending: ? Carol RIVAS, Berkley Stark Referred By: ? PARISA ANDREWS MECHANICAL PRODUCT ENGINEER Service(s) Provided ??UABDLIM - Abdominal Limited Survey Single ? 03034 ??Organ or Quadrant - [id number] Indications ??Epigastric pain. ?gallbladder disease or ??cholelithiasis. Comparison None. ----- Liver ----- Right Lobe Length: ?? 15.8 ?? cm Echogenicity/Echotexture: ?? Normal Comment: ?6 mm left hepatic lobe cyst. ??No solid hepatic ? lesions identified. Gallbladder Cholelithiasis: ?No stones visualized Wall Thickness: ?Normal wall thickness Focal Tenderness: ?Negative sonographic French's sign Biliary Tract Intrahepatic Ducts: ?? Normal Extrahepatic Ducts: ?? Normal Common Duct Size: ? 3.0 ? mm -------- Pancreas -------- Head: ? Normal Tail: ? Poorly visualized due to overlying bowel Body: ? Normal Right Kidney Size (cm) ?L: ??12.2 ?AP: ??4.8 ? TV: ??5.3 Cortical Thickness: ?Cortical thinning Cortical Echogenicity: ?? See below Hydronephrosis: ?No sonographic evidence Comment: ?1.8cm seen within the extrarenal pelvis. ? Increased echogenicity of the renal medulla ? suggestive of medullary nephrocalcinosis. --- IVC --- Normal in caliber where visualized. Fluid Collections No ascites in the imaged RUQ. Impression Ultrasound - Abdomen Limited - Summary 1. ??Normal gallbladder. ??No cholelithiasis. 2. ??Sub-cm left hepatic lobe cyst. ??Liver otherwise unremarkable, as is the visualized pancreas. 3. ??1.8 cm right renal calculus, within the extrarenal pelvis, no associated hydronephrosis. 4. ?? Diffuse right renal cortical thinning with findings compatible with medullary nephrocalcinosis. I ??viewed the images and agree with the above interpretation. ?Berkley Medina MD Electronically Signed Final Report ?? 01/27/2015 12:52 pm Procedure Note Berkley Medina MD - 01/27/2015 Abdominal (Signed Final 01/27/2015 12:52 pm) Patient Info ID #: [id number] : [birth year] (39 yrs) Name: VIANNEY Chao Visit Date: 01/27/2015 09:56 am ABREU Performed By Performed By: Simi Lopez RDMS Attending: Berkley Medina MD Referred By: PARISA ANDREWS APRN Service(s) Provided UABDLIM - Abdominal Limited Survey Single 10942 Organ or Quadrant - [id number] Indications Epigastric pain. ?gallbladder disease or cholelithiasis. Comparison None. ----- Liver ----- Right Lobe Length: 15.8 cm Echogenicity/Echotexture: Normal Comment: 6 mm left hepatic lobe cyst. No solid hepatic lesions identified. Gallbladder Cholelithiasis: No stones visualized Wall Thickness: Normal wall thickness Focal Tenderness: Negative sonographic French's sign Biliary Tract Intrahepatic Ducts: Normal Extrahepatic Ducts: Normal Common Duct Size: 3.0 mm -------- Pancreas -------- Head: Normal Tail: Poorly visualized due to overlying bowel Body: Normal Right Kidney Size (cm) L: 12.2 AP: 4.8 TV: 5.3 Cortical Thickness: Cortical thinning Cortical Echogenicity: See below Hydronephrosis: No sonographic evidence Comment: 1.8cm seen within the extrarenal pelvis. Increased echogenicity of the renal medulla suggestive of medullary nephrocalcinosis. --- IVC --- Normal in caliber where visualized. Fluid Collections No ascites in the imaged RUQ. Impression Ultrasound - Abdomen Limited - Summary 1. Normal gallbladder. No cholelithiasis. 2. Sub-cm left hepatic lobe cyst. Liver otherwise unremarkable, as is the visualized pancreas. 3. 1.8 cm right renal calculus, within the extrarenal pelvis, no associated hydronephrosis. 4. Diffuse right renal cortical thinning with findings compatible with medullary nephrocalcinosis. I viewed the images and agree with the above interpretation. Berkley Medina MD Electronically Signed Final Report 01/27/2015 12:52 pm Brandt Barlow MD IMG US GEN ORDERABLE S documented in this encounter Visit Diagnoses Diagnosis Dyspepsia Dyspepsia and other specified disorders of function of stomach documented in this encounter Care Teams Iron Bender Relationship Specialty Start Date End Date Latanya Wade MD [facility] [address] [place] [address] [place] [address] PCP - General 08/27/13 11/01/15 documented as of this encounter
--- OUTSIDE RECORDS SUMMARY | 2024-10-16 17:44 | XMS_ITS | Encounter Summary ---
Author Organization [facility] [place] [address] Care Team Providers Care Vp Of Global Marketing Name Role Phone Latanya Wade MD Primary Care Provider [phone] Reason for Visit * Reason Comments Gastroesophageal Reflux Encounter Details Date Type Department Care Team (Late st Contact Info) Description 12/28/2014 2:05 PM EST Office Visit Gastroenterology at [facility] [place] [address] Parisa Andrews, [facility] [address] Dyspepsia Discharge Disposition: Home Social History Tobacco [...] Sign Reading Time Taken Comments Blood Pressure 131/61 12/28/2014 1:54 PM EST Pulse 78 12/28/2014 1:54 PM EST Temperature - - Respiratory Rate - - Oxygen Saturation - - Inhaled Oxygen Concentration - - Weight 92.8 kg (204 lb 8 oz) 12/28/2014 1:54 PM EST Height 160 cm (5' 3) 12/28/2014 1:54 PM EST Body Mass Index 36.23 12/28/2014 1:54 PM EST documented in this encounter Patient Instructions * Patient Instructions* Parisa Andrews APRN - 12/28/2014 2:35 PM EST 1. Upper endoscopy with biopsies 2. GERD diet and lifestyle modifications 3. Recommend eating smaller more frequent 5-6 low fat meals per day 4. Protonix 40 mg on an empty stomach 30 minutes before breakfast 5. Gaviscon tablet or liquid before bedtime 6. Consider purchasing a wedge pillow 7. Abdominal ultrasound to evaluate the function of your gallbladder 8. Lab work today and will call if results are abnormal 9. Follow up 3 months Parisa Andrews APRN [phone] documented in this encounter Progress Notes * Parisa Andrews APRN - 12/28/2014 2:12 PM EST Subjective: Patient ID: Vianney Abreu is a 39 y.o. woman who presents for further evaluation of her gastrointestinal symptoms at the request of Sonido SABA. HPI Comments: Vianney Abreu is a pleasant 39 year old woman [...] intolerances. No NSAID's. Remainder of ROS unremarkable. Review of Systems Constitutional: Positive for appetite change (See HPI). Negative for fever, chills, diaphoresis, activity change, fatigue and unexpected weight change. Respiratory: Negative. Cardiovascular: Negative. Gastrointestinal: See HPI [...] and curettage of uterus 1994 ??? Tonsillectomy History Social History ??? Marital Status: Spouse [...] ??? Not on file Social History Narrative FMHx: no h/o colon or esophageal cancer; IBD; celiac disease; liver or pancreatic disease Vital Signs: BP 131/81; P 78; Wt 204 lbs 8 oz; Ht 5'3 Objective: Physical Exam Constitutional: She is oriented to person, place, and time. She appears well- developed and well-nourished. No distress. HENT: Head: Normocephalic and atraumatic. Mouth/Throat: Oropharynx is clear and moist. No oropharyngeal exudate. Eyes: Conjunctivae and EOM are normal. Pupils are equal, round, and reactive to light. Right eye exhibits no discharge. Left eye exhibits no discharge. No scleral icterus. Neck: Normal range of motion. Neck supple. No JVD present. No tracheal deviation present. No thyromegaly present. Cardiovascular: Normal rate, regular rhythm, normal heart sounds and intact distal pulses. Exam reveals no gallop and no friction rub. No murmur heard. Pulmonary/Chest: Effort normal and breath sounds normal. No stridor. No respiratory distress. She has no wheezes. She has no rales. She exhibits no tenderness. Abdominal: Soft. Bowel sounds are normal. She exhibits no distension and no mass. There is no tenderness. There is no rebound and no guarding. No hepatosplenomegaly. No succussion splash. No epigastric bruit. Genitourinary: Rectal exam deferred. Lymphadenopathy: She has no cervical adenopathy. Neurological: She is alert and oriented to person, place, and time. No cranial nerve deficit. Skin: Skin is warm and dry. No rash noted. She is not diaphoretic. No erythema. No pallor. Psychiatric: She has a normal mood and affect. Her behavior is normal. Judgment and thought contentnormal. Vitals reviewed. Assessment and Plan: Kerry Abreu is a pleasant 39 year old woman who presents for consultation of her GERD. Her constellation of symptoms is more suggestive of dyspepsia but also question gallbladder disease. Discussed the etiology, pathophysiology, diagnostic tests and treatment of dyspepsia. Recommend EGD with biopsies. Recommend RUQ abdominal US. Lab work today. Recommend taking Protonix 40 mg qd on an emptystomach 30 minutes before breakfast. She is amenable to this. Await results for further management.Consider [place]ham ph study. Consider oem. Consider GES. Consider SBFT. I did my best to answer all of her questions. The following plan was formulated. Plan: 1. Upper endoscopy with biopsies 2. GERD diet and lifestyle modifications 3. Recommend eating smaller more frequent 5-6 low fat meals per day 4. Protonix 40 mg qd on an empty stomach 30 minutes before breakfast 5. Gaviscon tablet or liquid qhs 6. RUQ abdominal US 7. Lab work today: CBC, CMP, TSH and will call if results are abnormal 8. Follow up 3 months Patient understands and is agreeable to the above plan. Written instructions provided. I spent a total of 53 minutes face to face with this patient; 30 minutes were spent counseling the patient in the medical problems described above. Thank you for the referral, Parisa Andrews APRN Section of Gastroenterology [place] [address] documented in this encounter Plan of Treatment Upcoming Encounters Date Type Department Care Team (Late st Contact Info) Description 12/31/2024 10:00 AM EST Office [place] [phone] Mercy Amanda MD [facility] [address] 04/01/2025 2:00 PM EDT Office [place] [address] Erum Szymanski MD [facility] [place] [address] Scheduled Orders Name Type Priority Associated Diagnoses Orde r Schedule UPPER GI ENDOSCOPY Procedures Routine Dyspepsia Ordered: 12/28/2014 documented as of this encounter Procedures Procedure Name Priority Date/Time Associated Diagnosis Comments HEMOGRAM Routine 12/28/2014 3:19 PM EST Dyspepsia DIFFERENTIAL, AUTOMATED Routine 12/28/2014 3:19 PM EST Dyspepsia CBC (WITH DIFF) Routine 12/28/2014 3:19 PM EST Dyspepsia TSH Routine 12/28/2014 3:19 PM EST Dyspepsia COMPREHENSIVE METABOLIC PANEL Routine 12/28/2014 3:19 PM EST Dyspepsia documented in this encounter Results * US abdomen limited (01/27/2015 9:59 AM EDT) Anatomical Region Laterality Modality Abdomen Ultrasound 01/27/2015 9:59 AM EDT Narrative 01/27/2015 12:52 PM EDT Abdominal ?(Signed Final 01/27/2015 12:52 ? pm) Patient Info ID #: ? [id number] ?: ??[birth year] (39 yrs) Name: ? VIANNEY Chao ? Visit Date: 01/27/2015 09:56 am ? LOIS Performed By Performed By: ?Simi Lopez RDMS Attending: ? Carol RIVAS, Berkley Stark Referred By: ? PARISA ANDREWS HARDWARE ENGINEER Service(s) Provided ??UABDLIM - Abdominal Limited Survey Single ? 65248 ??Organ or Quadrant - [id number] Indications ??Epigastric pain. ?gallbladder disease or ??cholelithiasis. [...] 01/27/2015 12:52 pm) Patient Info ID #: [id number] : [birth year] (39 yrs) Name: VIANNEY Chao Visit Date: 01/27/2015 09:56 am ABREU Performed By Performed By: Simi Lopez RDMS Attending: Berkley Medina MD Referred By: PARISA ANDREWS APRN Service(s) Provided UABDLIM - Abdominal Limited Survey Single 14011 Organ or Quadrant - [id number] Indications Epigastric pain. ?gallbladder disease or cholelithiasis. [...] Barlow MD IMG US GEN ORDERABLE S * (ABNORMAL) Differential, Automated (12/28/2014 3:19 PM EST) Neutrophil % 60.8 % CERNER MILLENNIUM Neutrophil Absolute 6.64(H) 1.50 - 6.30 x10(3)/mc L CERNER MILLENNIUM Lymph % 32.3 % CERNER MILLENNIUM Lymphocytes Abs 3.5 1.0 - 3.6 x10(3)/mc L CERNER MILLENNIUM Monocyte % 5.7 % CERNER MILLENNIUM Monocyte Abs 0.6 0.2 - 1.0 x10(3)/mc L CERNER MILLENNIUM Eos % 0.9 % CERNER MILLENNIUM Eosinophils Abs 0.1 0.0 - 0.5 x10(3)/mc L CERNER MILLENNIUM Basophil % 0.2 % CERNER MILLENNIUM Baso Absolute 0.0 0.0 [...] x10(3)/mc L CERNER MILLENNIUM Blood specimen (specimen) 12/28/2014 3:19 PM EST 12/28/2014 3:32 PM EST Narrative Resulting Agency Comment Spec In Lab Brandt Barlow MD HEMATOLOGY ORDERABLE S CERNER MILLENNIUM * (ABNORMAL) Hemogram (12/28/2014 3:19 PM EST) White Blood Cell 10.9(H) 4.0 - 10.0 x10(3)/mc L CERNER MILLENNIUM Red Blood Cell 4.46 3.93 - 5.22 x10(6)/mc L CERNER MILLENNIUM Hemoglobin 13.0 11.2 - 15.7 gm/dL CERNER MILLENNIUM Hematocrit 38.3 34.0 - 45.0 % CERNER MILLENNIUM Mean Cell Volume 85.9 79.0 - 94.0 fL CERNER MILLENNIUM Mean Cell Hemoglobin 29.1 26.6 - 32.2 pg CERNER MILLENNIUM Mean Cell Hemoglobin Concentration 33.9 32.0 - 36.5 gm/dL CERNER MILLENNIUM Platelet 259 145 - 370 x10(3)/mc L CERNER MILLENNIUM RDW Standard Deviation 39.9 35.0 - 46.0 fL CERNER MILLENNIUM RDW coefficient of variation 12.8 10.9 - 14.4 % CERNER MILLENNIUM Mean Platelet Volume 10.4 9.0 - 12.0 fL CERNER MILLENNIUM Blood specimen (specimen) 12/28/2014 3:19 PM EST 12/28/2014 3:32 PM EST Narrative Resulting Agency Comment Spec In Lab Brandt Barlow MD HEMATOLOGY ORDERABLE S Performing Organization Address [facility] Co de Phone Number [facility] * TSH (12/28/2014 3:19 PM EST) Pathologist [facility] Thyroid Stimulating Hormone 1.81 0.27 - 4.20 mcIU/mL [facility] Blood specimen (specimen) 12/28/2014 3:19 PM EST 12/28/2014 3:32 PM EST Narrative Resulting Agency Comment Spec In Lab Brandt Barlow MD CHEMISTRY ORDERABLES Performing Organization Address [facility] Co de Phone Number [facility] * (ABNORMAL) Comprehensive metabolic panel (non-fasting) (12/28/2014 3:19 PM EST) Pathologist [facility] Glucose 91 60 - 199 mg/dL [facility] Comment:Diabetes: >=200 mg/d L plus symptoms Blood Urea Nitrogen 13 8 - 18 mg/dL [facility] MILL[facility]UM Creatinine 0.74 0.70 - 1.20 mg/dL [facility] MILLENNIUM Comment: Please note that the pediatric reference intervals supplied above were not validated at [facility]. Results from pediatric patients should be interpreted in conjunction to the patient's age, height and muscle mass. Sodium 139 135 - 145 mmol/L [facility] Potassium 4.4 3.5 - 5.0 mmol/L [facility] Comment: Please note: ??Patients with WBC >100,000 may have falsely elevated Potassium levels. ??For accurate Potassium quantification in these patients send serum separator tube (gold top) for subsequent determinations. ??Contact the Clinical Chemistry Laboratory if there are any questions. Chloride 105 98 - 107 mmol/L CERNER MILLENNIUM Carbon Dioxide 22 22 - 31 mmol/L CERNER MILLENNIUM Anion Gap 12 5 - 15 mmol/L CERNER MILLENNIUM Calcium 9.3 8.5 - 10.5 mg/dL CERNER MILLENNIUM Protein, Total 6.9 6.4 - 8.3 gm/dL CERNER MILLENNIUM Albumin 4.0 3.2 - 5.2 gm/dL CERNER MILLENNIUM Aspartate Aminotransferase 15 0 - 30 unit/L CERNER MILLENNIUM Alanine Aminotransferase 8 0 - 30 unit/L CERNER MILLENNIUM Alkaline Phosphatase 60 40 - 104 unit/L CERNER MILLENNIUM Bilirubin, Total <0.2(L) 0.2 - 1.3 mg/dL CERNER MILLENNIUM Bilirubin, Direct <0.1 0.0 - 0.3 mg/dL CERNER MILLENNIUM Est Glomerular Filtration Rate [...] the following links into your internet browser. [email or web address] [email or web address] Blood specimen (specimen) 12/28/2014 3:19 PM EST 12/28/2014 3:32 PM EST Narrative Resulting Agency Comment Spec In Lab Brandt Barlow MD CHEMISTRY ORDERABLES [facility] documented in this encounter Visit Diagnoses Diagnosis Dyspepsia Dyspepsia and other specified disorders of function of stomach Dyspepsia Dyspepsia and other specified disorders of function of stomach documented in this encounter Care Teams Vp Of Global Marketing Relationship Specialty Start Date End Date Latanya Wade MD [facility] [address] [place] [address] [place] [address] PCP - General 08/27/13 11/01/15 documented as of this encounter
--- OUTSIDE RECORDS SUMMARY | 2024-10-16 17:44 | XMS_ITS | Encounter Summary ---
Author Organization [facility] Address [address] [place] [address] Care Team Providers Care Retail Assistant Store Manager Name Role Phone Unavailable Primary Care Provider Unavailabl e Encounter Details Date Type Department Care Team (Late st Contact Info) Description 09/17/2002 Results Only [facility] conversion [address] [place] [address] Gracy Moy, [facility] [address] [place] [address] [place] [address] Social History Tobacco Use Types [...] Priority Date/Time Associated Diagnosis Comments CYTOPATHOLOGY Routine 09/17/2002 0:00 EST documented in this encounter Results * CYTOPATHOLOGY (09/17/2002 0:00 EST) Pathology Report: CYTOPATHOLOGY REPORT Reports generated via electronic interface contain original data; however they are lacking the format of the original report. Caution should be taken when reading/interpreti ng unformatted reports. Name: ? SONVIANNEY ? Accession #: ? [id number] : ? 1975 (Age: 26) ??F ?Collect Date: ? 09/17/2002 Location: ? [facility] ? Receive Date: ? 09/19/2002 Provider: ?GRACY MOY DESTINATION COORDINATOR Copy to: ? Specimen/Source: ?ThinPrep Pap Test, Cervix/Endocervix Last Menstrual Period: ? 09/08/02 ? SPECIMEN ADEQUACY ? Satisfactory for Evaluation - transformation zone component present GENERAL CATEGORIZATION ? Negative for Intraepithelial Lesion or Malignancy ? Document reviewed and electronically signed by: ? Smitha Dawn, CT(ASCP) ? Report Date: ??09/24/2002 13:11 End of Report NEHEMIAS ROSADO 09/17/2002 09/19/2002 us Gracy Moy DESTINATION COORDINATOR PATHOLOGY ORDERABLES Final R esult NEHEMIAS ROSADO [address] [place] [address] documented in this encounter Visit Diagnoses Not on filedocumented in this encounter
--- OUTSIDE RECORDS SUMMARY | 2024-10-16 17:44 | XMS_ITS | Clinical Summary ---
Author Organization [facility] Address [address] [place] [address] Care Team Providers Care Bellows Filler Name Role Phone Unknown, Provider MD Primary [...] Orientation Not on file Plan of Treatment Health Maintenance Due Date Last Done Comments Hepatitis C Screen 1975 Hepatitis B Vaccine (1 of 3 - 19+ 3-dose series) 10/20 COVID-19 Vaccine ( season) 2024 Insurance MEDICAID O [place] Care Teams Bellows Filler Relationship Specialty Start Date End Date Unknown, MD Tito PCP - General 08/22/17 Unknown, MD Tito 08/22/17
--- OUTSIDE RECORDS SUMMARY | 2024-10-16 17:44 | XMS_ITS | Encounter Summary ---
Author Organization [facility] [place] [address] Care Team Providers Care Clinical Laboratory Aide Name Role Phone Latanya Wade MD Primary Care Provider [phone] Encounter Details Date Type Department Care Team (Late st Contact Info) Description 01/27/2015 12:00 PM EDT - 01/27/2015 12:30 PM EDT [place] [address] [facility] DR [place] [address] EGD WITH BIOPSY (WRVU 2.39) Social History [...] Sign Reading Time Taken Comments Blood Pressure 126/72 01/27/2015 1:05 PM EDT Pulse 76 01/27/2015 1:05 PM EDT Temperature - - Respiratory Rate 18 01/27/2015 1:05 PM EDT Oxygen Saturation 96% 01/27/2015 1:05 PM EDT Inhaled Oxygen Concentration - - Weight - - Height - - Body Mass Index - - documented in this encounter Discharge Instructions * Patient Instructions* Darell Estrada MD - 01/27/2015 1:01 PM EDT Please see Recommendations in the Provation procedure report which is documented in the procedural note in E-DH. * Attachments The following attachments cannot be sent through Care Everywhere. * EGD (UPPER ENDOSCOPY) : POST-OP ([place]OUTH KORE[place]) documented in this encounter Medications at Time of Discharge Medication Sig Dispensed Refills Start Date End Date pantoprazole (PROTONIX) 40 mg Tablet, Delayed Release (E.C.) Take 40 mg by mouth daily. 01/28/2015 documented as of this encounter Progress Notes * Umesh Gil RN - 01/26/2015 3:14 PM EDT Endoscopy Pre-Procedure Patient Call Name: Vianney Abreu Age: 39 y.o. Date of : 1975 (home) Mobile: No relevant phone numbers on file. Date/Time of call: January 26, 2015 / 3:14 PM/ Procedure: EGD Contact with patient: yes If not patient, whom? ?? Pre procedure instructions reviewed: Yes ?? Arrival and procedure times verified: Yes ?? All questions answered: Yes * Umesh Gil RN - 01/25/2015 11:19 AM EDT ENDOSCOPY PATIENT HISTORY Name: VIANNEY ABREU : 1975 Age: 39 y.o. Address: [place] [phone] (home) Mobile: No relevant phone numbers on file. Referring Provider: Latanya Wade Referral Procedure: EGD - dyspepsia Allergies: Allergies Allergen Reactions ??? Oxycodone Nausea And Vomiting Problem list: Patient Active Problem List Diagnosis Code ??? Elbow pain, right 719.42 ??? Dyspepsia 536.8 Past Medical History: Past Medical History Diagnosis Date ??? PTSD (post-traumatic stress disorder) Past Surgical History: Past Surgical History Procedure Laterality Date ??? Dilation and curettage of uterus 1994 ??? Tonsillectomy Medications: Prior to Admission medications Medication Sig Start Date End Date Taking? Authorizing Provider pantoprazole (PROTONIX) 40 mg Tablet, Delayed Release (E.C.) Take 40 mg by mouth daily. Provider, Historical documented in this encounter H&P Notes * Darell Estrada MD - 01/27/2015 11:56 AM EDT See gi consult note within the last month; no interval change; stable for egd; risks explained; consent signed. documented in this encounter Plan of Treatment Upcoming Encounters Date Type Department Care Team (Late st Contact Info) Description 12/31/2024 10:00 AM EST Office [place] [address] [facility] DR [facility] [address] 04/01/2025 2:00 PM EDT Office [place] [address] [facility] [place] [address] documented as of this encounter Procedures Procedure Name Priority Date/Time Associated Diagnosis Comments SURGICAL PATHOLOGY REPORT Routine 01/27/2015 1:02 PM EDT SPECIMEN TO PATHOLOGY Routine 01/27/2015 1:02 PM EDT EGD WITH BIOPSY (WRVU 2.39) 01/27/2015 12:42 PM EDT Dyspepsia UPPER GI ENDOSCOPY Routine 01/27/2015 12 :39 PM EDT documented in this encounter Results * Surgical Pathology Report (01/27/2015 1:02 PM EDT) Final Diagnosis ? [facility] ? Provider: ?? DARELL ESTRADA ? Pt. Name: ?? VIANNEY ABREU ? Acc #: ?[id number] ?Pt. ? Col Date: ?? 01/27/2015 ? /Sex: ?1975,([age] ? years),Female ? Rec Date: ?? 01/27/2015 ? LOC: ?4T ? SURGICAL PATHOLOGY ? ---Pathologic Diagnosis--- ? 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 No dysplasia is seen. ? Cr-0 ? 01/28/15 ? AAS ? 01/28/15 Verified by: ? Ayad Dee MD ? Pathologist ? (Electronic Signature) ? The attending pathologist whose signature appears on this report has ? reviewed all diagnostic slides and has edited the gross and/or ? microscopic portion of the report in rendering the final pathologic ? diagnosis. ? ---Gross Description--- ? A - Labeled/Fixativ e: Esophagus, formalin. ? Quantity/Size: Four, ranging from 0.3-0.5 cm. ? Tissue Description: Soft, gray tissues. ? Sections/Proces sing: (T1) ??aml ? ---Clinical Information--- ? Specimen Submitted: ? A - Esophagus ? Clinical History: ? Nausea and vomiting ? Clinical Diagnosis: ? Esophageal biopsies at 28 cm;? Rodgers's 01/28/2015 9:[address] [facility] GI Biopsy 01/27/2015 1:02 PM EDT 01/27/2015 1:02 PM EDT Darell Estrada MD PATHOLOGY/CYTOLOGY O ZHANNA Performing Organization Address [facility] Co de Phone Number MELISSA [facility] [place] [address] * Specimen to Pathology (surgical or derm) (01/27/2015 1:02 PM EDT) AP Specimen 01/27/2015 1:02 PM EDT 01/27/2015 1:02 PM EDT Narrative MELISSA CURTIS - 01/27/2015 1:02 PM EDT Specimen requisition ordered. ??Separate Pathology report to follow Darell Estrada MD PATHOLOGY/CYTOLOGY O RDFANTA Performing Organization Address City/[facility]/ZIP Co de Phone Number MELISSA ROSEMARIEARYCOUNT INCLUDES THE [facility] * UPPER GI ENDOSCOPY (01/27/2015 12:39 PM EDT) UPPER GI ENDOSCOPY [facility] Patient Name: Vianney Abreu ? Procedure Date: 01/27/2015 12:39 PM ? Date of : 1975 ? Age: 39 ? Order #: [id number] ? Procedure: ? Upper GI endoscopy Indications: ? Dyspepsia, Nausea with vomiting Providers: ? Darell Estrada MD, Tyler Brito RN, ? Su Daniels, Mechanic Chief Referring : ?Latanya Wade MD Medicines: ? Midazolam 3 mg IV, Fentanyl 150 ? micrograms IV, Diphenhydramine 50 mg ? [...] The entire examined stomach was normal. ? A large hiatus hernia was present. ? - The diaphragmatic pinch was at 39 cm. ? - 2 erosions were noted in the hiatal hernia which ? was approximately 7-8 cm in size. The erosions were ? not bleeding. ? LA Grade D (one or more mucosal breaks involving at ? least 75% of esophageal circumference) esophagitis ? with no bleeding was found 26 cm from the incisors. ? The area below the esophagits was biopsied with a ? cold forceps for histology to rule out Barretts. ? Impression: ?- Normal examined duodenum. ? - Normal stomach. ? - Large hiatus hernia. ? - LA Grade D reflux esophagitis. ? Biopsied. Recommendation: ?- Await pathology results. ? - Letter to be sent to patient in ? 8-10 days ? - Increase protonix to twice daily - ? 40 mg - take 30 minutes before ? breakfast and 30 minute before dinner ? every day ? - Light evening meal; wait 3-4 hours ? between dinner and bed. Elevate head ? of bed 3 inches. ? - Return to primary care physician as ? previously scheduled. ? Procedure Code(s): ?? --- Professional --- ? 17257, Esophagogastroduod enoscopy, ? flexible, transoral; with biopsy, ? single or multiple CPT copyright 2014 [employer]. All rights reserved. The codes documented in this report are preliminary and upon delivery and mail sorter review may be revised to meet current compliance requirements. Attending Participation: ? I personally performed the entire procedure. ? Darell Estrada MD 01/27/2015 1:11 PM This report has been signed electronically. Number of Addenda: 0 Note Initiated On: 01/27/2015 12:39 PM PROVATION 01/27/2015 12:3 9 PM EDT Latanya Wade MD GENERAL SURGICAL ORD ERABLES PROVATION documented in this encounter Visit Diagnoses Diagnosis Dyspepsia Dyspepsia and other specified disorders of function of stomach documented in this encounter Administered Medications Inactive Administered Medications - up to 3 most recent administrations Medication Order MAR Action Action Date Dose Rate Site benzocaine (TOPEX) 20 % oral spray ONCE PRN, Starting on Sun01/27/15 at 1246, Until Sun01/27/15 at 1401, Intra-Operative (Intra-Procedure) Given 01/27/2015 12:46 PM EDT 3 each diphenhydrAMINE (BENADRYL) injection ONCE PRN, Starting on Sun01/27/15 at 1249, Until Sun01/27/15 at 1401, Intra-Operative (Intra-Procedure), Routine Given 01/27/2015 12:49 PM EDT 25 mg fentaNYL 50 mcg/mL multi-dose injection ONCE PRN, Starting on Sun01/27/15 at 1246, Until Sun01/27/15 at 1401, Intra-Operative (Intra-Procedure), Routine Given 01/27/2015 12:52 PM EDT 50 mcg Given 01/27/2015 12:49 PM EDT 50 mcg Given 01/27/2015 12:46 PM EDT 50 mcg lactated ringers infusion 50 mL/hr, Intravenous, CONTINUOUS, Starting on Sun01/27/15 at 1230, Until Sun01/27/15 at 1401, Endoscopy (Day of Procedure) New Bag 01/27/2015 12:30 PM EDT 50 mL/hr 50 mL/hr midazolam (PF) (VERSED) 1 mg/mL multi-dose injection ONCE PRN, Starting on Sun01/27/15 at 1246, Until Sun01/27/15 at 1401, Intra-Operative (Intra-Procedure), Routine Given 01/27/2015 12:52 PM EDT 1 mg Given 01/27/2015 12:49 PM EDT 1 mg Given 01/27/2015 12:46 PM EDT 1 mg documented in this encounter Active and Recently Administered Medications Times are shown in EDT. Continuous Medication Order 01/25/2015 01/26/2015 01/27/2015 lactated ringers infusion (CANCELED) 50 mL/hr, Intravenous, CONTINUOUS, Starting on Sun01/27/15 at 1230, Until Sun01/27/15 at 1401, Endoscopy (Day of Procedure) 1230 (New Bag - Prov ider: Daysi Young, NIMCO) PRN Medication Order 01/25/2015 01/26/2015 01/27/2015 benzocaine (TOPEX) 20 % oral spray (CANCELED) ONCE PRN, Starting on Sun01/27/15 at 1246, Until Sun01/27/15 at 1401, Intra-Operative (Intra-Procedure) 1246 (Given - Provid er: Tyler Brito RN) diphenhydrAMINE (BENADRYL) injection (CANCELED) ONCE PRN, Starting on Sun01/27/15 at 1249, Until Sun01/27/15 at 1401, Intra-Operative (Intra-Procedure), Routine 1249 (Given - Provid er: Tyler Brito RN) fentaNYL 50 mcg/mL multi-dose injection (CANCELED) ONCE PRN, Starting on Sun01/27/15 at 1246, Until Sun01/27/15 at 1401, Intra-Operative (Intra-Procedure), Routine 1246 (Given - Provid er: Tyler Brito RN)1249 (Given - Provider: Tyler Brito RN)1252 (Given - Provider: Tyler Brito, RN) midazolam (PF) (VERSED) 1 mg/mL multi-dose injection (CANCELED) ONCE PRN, Starting on Sun01/27/15 at 1246, Until Sun01/27/15 at 1401, Intra-Operative (Intra-Procedure), Routine 1246 (Given - Provid er: Tyler Brito RN)1249 (Given - Provider: Tyler Brito, RN)1252 (Given - Provider: Tyler Brito, RN) documented in this encounter Care Teams Clinical Laboratory Aide Relationship Specialty Start Date End Date Latanya Wade MD HOSPITALIST SERVICES [address] [place] [address] [place] [address] PCP - General 08/27/13 11/01/15 documented as of this encounter
--- OUTSIDE RECORDS SUMMARY | 2024-10-16 17:44 | XMS_ITS | Encounter Summary ---
Author Organization [facility] Address [address] [place] [address] Care Team Providers Care Window Draper Name Role Phone Unavailable Primary Care Provider Unavailabl e Encounter Details Date Type Department Care Team (Late st Contact Info) Description 08/27/2001 Results Only [facility] conversion [address] [place] [address] Gracy Moy, [facility] [address] [place] [address] [place] [address] Social History Tobacco Use Types [...] Priority Date/Time Associated Diagnosis Comments CYTOPATHOLOGY Routine 08/27/2001 0:00 EDT documented in this encounter Results * CYTOPATHOLOGY (08/27/2001 0:00 EDT) Pathology Report: CYTOPATHOLOGY REPORT Reports generated via electronic interface contain original data; however they are lacking the format of the original report. Caution should be taken when reading/interpreti ng unformatted reports. Name: ? SON VIANNEY ? Accession #: ? [id number] : ? 1975 (Age: 25) ??F ?Collect Date: ? 08/27/2001 Location: ? [facility] ? Receive Date: ? 08/29/2001 Provider: ?GRACY MOY RETAIL WIRELESS SALES REPRESENTATIVE Copy to: ? Specimen/Source: ?ThinPrep Pap Test, Cervix/Endocervix Last Menstrual Period: ? Hormonal/Contracep tive Status: ? Depo-Provera ? SPECIMEN ADEQUACY ? Satisfactory for evaluation but limited by scant squamous epithelial component secondary to excessive inflammation. GENERAL CATEGORIZATION ? Within Normal Limits ? Document reviewed and electronically signed by: ? CLAYTON De La O(ASCP) ? Report Date: ??08/30/2001 13:50 End of Report [facility] 08/27/2001 08/29/2001 us Gracy Moy RETAIL WIRELESS SALES REPRESENTATIVE PATHOLOGY ORDERABLES Final R esult [facility] [address] [place] [address] documented in this encounter Visit Diagnoses Not on filedocumented in this encounter
--- OUTSIDE RECORDS SUMMARY | 2024-10-16 17:44 | XMS_ITS | Encounter Summary ---
Author Organization [facility] Address [facility] [place] [address] Care Team Providers Care Patient Monitor Name Role Phone Latanya Wade MD Primary Care Provider [phone] Encounter Details Date Type Department Care Team (Latest Contact Info) Description 01/27/2015 10:21 AM EDT - 01/27/2015 2:05 PM EDT Hospital Encounter [place] [address] Darell Estrada MD [facility] [place] [address] Discharge Disposition: Home Social History Tobacco Use [...] Everywhere. * EGD (UPPER ENDOSCOPY) : POST-OP (DANISH) documented in this encounter Medications at Time [...] ABREU : 1975 Age: 39 y.o. Address: [address] [address] (home) Mobile: No relevant phone numbers on [...] EST Office [place] [address] Mercy Amanda MD [facility] [address] [facility] [place] [address] 04/01/2025 2:00 PM EDT Office Visit [place] [address] Erum Szymanski MD [facility] [place] [address] documented as of this encounter Procedures Procedure [...] (01/27/2015 1:02 PM EDT) Final Diagnosis ? [facility] ? Provider: ?? DARELL ESTRADA ? Pt. Name: ?? VIANNEY ABREU ? Acc #: ?[id number] ?Pt. ? Col Date: ?? 01/27/2015 ? [...] 28 cm;? Rodgers's 01/28/2015 9:48 AM EDT [facility] GI Biopsy 01/27/2015 1:02 PM EDT 01/27/2015 1:02 PM EDT Darell Estrada MD PATHOLOGY/CYTOLOGY O ZHANNA Performing Organization Address [facility] Co de Phone Number MELISSA CURTIS [facility] [place] [place] [address] * Specimen to Pathology (surgical or derm) (01/27/2015 1:02 PM EDT) AP Specimen 01/27/2015 1:02 PM EDT 01/27/2015 1:02 PM EDT Narrative MELISSA CURTIS - 01/27/2015 1:02 PM EDT Specimen requisition ordered. ??Separate Pathology report to follow Draell Estrada MD PATHOLOGY/CYTOLOGY O ZHANNA MELISSA CURTIS * UPPER GI ENDOSCOPY (01/27/2015 12:39 PM EDT) UPPER GI ENDOSCOPY [facility] Endoscopy Patient Name: Vianney Abreu ? Procedure Date: 01/27/2015 12:39 PM ? Date of : 1975 ? Age: 39 ? Order #: [id number] ? Procedure: ? Upper GI endoscopy Indications: ? Dyspepsia, Nausea with vomiting Providers: ? Darell Estrada MD, Tyler Brito RN, ? Su Daniels, Dyeing Machine Back Tender Referring : ?Latanya Wade MD Medicines: ? [...] Procedure Code(s): ?? --- Professional --- ? 72676, Esophagogastroduod enoscopy, ? flexible, transoral; with biopsy, ? single or multiple CPT copyright 2014 [employer]. All rights reserved. The codes documented in this report are preliminary and upon it applications manager review may be revised to meet current [...] Date Dose Rate Site lactated ringers infusion 50 mL/hr, Intravenous, CONTINUOUS, Starting on Sun01/27/15 at 1230, Until Sun01/27/15 at 1401, Endoscopy (Day of Procedure) New Bag 01/27/2015 12:30 PM EDT 50 mL/hr 50 mL/hr documented in this encounter Active and Recently Administered Medications Times are shown in EDT. Continuous Medication Order 01/25/2015 01/26/2015 01/27/2015 lactated ringers infusion (CANCELED) 50 mL/hr, Intravenous, CONTINUOUS, Starting on Sun01/27/15 at 1230, Until Sun01/27/15 at 1401, Endoscopy (Day of Procedure) 1230 (New Bag - Prov ider: Daysi Young RN) PRN Medication Order 01/25/2015 01/26/2015 01/27/2015 benzocaine [...] Tyler Brito RN)1252 (Given - Provider: Tyler Brito RN) documented in this encounter Care Teams Patient Monitor Relationship Specialty Start Date End Date Latanya Wade MD HOSPITALIST SERVICES [address] [place] [address] [place] [address] PCP - General 08/27/13 11/01/15 documented as of this encounter
--- OUTSIDE RECORDS SUMMARY | 2024-10-16 17:44 | XMS_ITS | Encounter Summary ---
Author Organization [facility] Address [address] [place] [address] Care Team Providers Care Web Production Designer Name Role Phone Unavailable Primary Care Provider Unavailabl e Encounter Details Date Type Department Care Team (Latest Contact Info) Description 06/10/2003 15:45 EDT Hospital Encounter [facility] - Other [address] [place] [address] [place] [address] Discharge Disposition: Auto Discharge Social History Tobacco Use Types Packs/Day Years Used Date Smoking Tobacco: Never Assessed Comments Unknown Sex and Gender Information Value Date Recorded Sex Assigned at Not on file Legal Sex Female 18:20 EST Gender Identity Not on file Sexual Orientation Not on file documented as of this encounter Discharge Disposition Disposition Code Departure Means Destination Auto Discharge documented in this encounter Plan of Treatment Not on file documented as of this encounter Visit Diagnoses Not on filedocumented in this encounter
--- OUTSIDE RECORDS SUMMARY | 2024-10-16 17:44 | XMS_ITS | Encounter Summary ---
Author Organization [facility] Address [address] [place] [address] Care Team Providers Care Dynamics Ax Consultant Name Role Phone Unavailable Primary Care Provider Unavailabl e Encounter Details Date Type Department Care Team ([facility] st Contact Info) Description 10/23/2012 Results Only [facility] [phone] Lilian Newberry MD [address] [place], [place] [phone] Social History Tobacco Use Types Packs/Day Years [...] Diagnosis Comments PAP TEST- RESULT ONLY Routine 10/23/2012 0:00 EST documented in this encounter Results * PAP TEST- RESULT ONLY (10/23/2012 0:00 EST) Pathology Report: CYTOPATHOLOGY REPORT Reports generated via electronic interface contain original data; however they are lacking the format of the original report. Caution should be taken when reading/interpreti ng unformatted reports. Name: ? SON EMIL ? Accession #: ? [id number] ? : ? 1975 (Age: 37) ??F ?Collect Date: ? 10/23/2012 ? Location: ? [facility] ? Receive Date: ? 10/24/2012 ? Provider: LILIAN NEWBERRY MD Copy to: ? Final Report SPECIMEN ADEQUACY ? Satisfactory for Evaluation - transformation zone component present - scant squamous epithelial component secondary to excessive blood GENERAL CATEGORIZATION ? Negative for Intraepithelial Lesion or Malignancy ?? Last Menstrual Period: 10/23/12 Other: Additional clinical information: has 1 day most menses, moderate bleeding, was bleeding at time of pap Specimen/Source: ??Pap Test, Cervix/Endocervix, ThinPrep Imaging System with manual evaluation Document reviewed and electronically signed by: ? Yudith Lundberg, GABRIELA(ASCP) ? Report ??Date: 11/04/2012 08:15 HPV with Pap Test ? Date Ordered: ? 11/04/2012 ? Status: ?? Signed Out ?Date Complete: ? 11/06/2012 ? By: ??System Interface ? Date Reported: ? 11/06/2012 ? Interpretation RESULT: Negative for HPV. No E6 or E7 mRNA is detected from HPV types 16,18,31,33,35, 39,45,51,52,56,58, 59,66, and 68 by software engineer web applications mediated amplification. Comments Document reviewed and electronically signed by: ? System Interface ? Report date: 11/06/2012 By the signature above, the attending physician certifies that he/she has personally conducted a gross and/or microscopic examination of the described specimens and rendered or confirmed the above diagnosis. End of Report [facility] 10/23/2012 10/24/2012 us Lilian Newberry MD PATHOLOGY ORDERABLES Final Resul t Performing Organization Address City/State/[facility] Co de Phone Number [facility] [address] [place] [address] documented in this encounter Visit Diagnoses Not on filedocumented in this encounter
== END 2024-10-16 17:34 | disposition home or self-care (01) ==
LOC: NCHCN 17:33
PROVIDERS: PCP Physician Assistant Medical; Visit Provider Nurse Practitioner Family
DX: N39.0 Urinary tract infection, site not specified (principal); B96.29 Other Escherichia coli [E. coli] as the cause of diseases classified elsewhere
CPT/HCPCS: 87077; 87086; 87186

== ENCOUNTER 2024-10-25 13:19 | Outpatient (REF) | payer MEDICAID, SELFPAY ==
--- OUTSIDE RECORDS SUMMARY | 2024-10-25 13:21 | XMS_ITS | Data Portability ---
Author Organization MD - [facility] [place] [address] Assessment No assessment recorded. Plan of Treatment Reminders Order Date Submit Date Provider Last Modified By Organization Details Last Modified Time Details Appointments Follow Up 30 2024 11:00A M GUERO SIEGELURN Not available Not available Not available Lab cultur e, urine + sensit ivity 2023 024 [email or web address] [facility] (Registration ), [address] [place] [address] [place], [address], 10/23/2024 14:06:13 urinal ysis, dipsti ck 2023 024 [facility], [address] [place] [address], [address], 10/16/2024 17:02:36 Referral orthop edic surgeo n referr al 2023 024 [facility], [address] [place] [address] [place], [address], 07/18/2024 17:29:54 Procedures None record ed. Surgeries None record ed. Imaging MAMMO, screen ing, bilate ral - LAST 3 2023 024 [facility], [address], [place], [address], 04/04/2024 08:34:55 US, transv aginal 2023 [facility]- [place], [address], [place], [address], 10/17/2024 08:12:57 Medication Orders hydroc ortiso ne 2.5 % topica l cream 2023 [facility], [address] [place], [address], 03/13/2024 11:13:25 Difluc an 150 mg tablet 2023 [facility], [address] [place], [address], 10/16/2024 16:15:01 Macrob id 100 mg capsul e 2023 [facility], [address] [place], [address], 10/16/2024 16:15:01 Patient TargetsNo targets recorded. Patient Instructions Encounter Date Encounter Id Patient Instructions Last Modified By Organization Details Last Modified Time 03/13/2024 [id number] 1. It seems to m e that these church are bug bites. I [...] get the generic form of Zyrtec and eaef-xdk-pistxkr allergy medication that is nondrowsy. This will [...] Trigger thumb of left hand Referring Physician: Guero Ravi, Family Medicine, Encounter Date: 06/09/2024 Results Created Date Observation Date Name Description Value Unit Range Abnormal Flag Note LastModifiedBy Organization Detail LastModifiedTime 10/16/20 24 10/17/2024 URINE CULTU RE urine culture Urine Cultu re ACTIO N SUSCE PTIBI LITY TO FOLLO W APPEA MADDIE Gram Negat tiffany Adria COLON Y COUNT Not Available [address] [place], [address] 10/17/2024 10:15:18 10/16/20 24 10/17/2024 URINE CULTU RE urine culture colon ies/m L >100, 000 Day 1 Resul t ISOLA SHAGGY BELOW O:ESC COL (ORGA NISM ID: 1.1) - Esche samanta a coli Urine Cultu re (ORGA NISM ID: 1.1) - COLON Y COUNT (ORGA NISM ID: 1.1) - >100, 000 Not Available [address] [place], [address] 10/17/2024 10:15:18 10/16/20 24 10/18/2024 URINE CULTU RE urine culture Urine Cultu re ACTIO N SUSCE PTIBI LITY TO FOLLO W APPEA MADDIE Gram Negat tiffany Adria APPEA MADDIE Gram Negat tiffany Adria COLON Y COUNT Not Available [address] [facility] [place], [address] 10/18/2024 08:05:44 10/16/20 24 10/18/2024 URINE CULTU RE urine culture colon ies/m L >100, 000 COLON Y COUNT >100, 000 Day 1 Resul t ISOLA SHAGGY BELOW Day 2 Resul t ISOLA SHAGGY BELOW O:ESC COL (ORGA NISM ID: 1.1) - Esche samanta a coli Urine Cultu re (ORGA NISM ID: 1.1) - COLON Y COUNT (ORGA NISM ID: 1.1) - >100, 000 ORGAN ISM ID: 1.1 ANTIB IOTIC INTER PRETA TION ALFREDO STATU S Ampic illin R >=32 F Ampic illin /Sulb actam R >=32 F Cefaz laurel S <=4 F Cefta zidim e S <=1 F CEFTR IAXON E S <=1 F Cipro floxa bernarda S <=0.2 5 F Genta micin S <=1 F Nitro furan toin S <=16 F Imipe nem S <=0.2 5 F Levof loxac in S <=0.1 2 F Tobra mycin S <=1 F Trime thopr im/Law lfame thoxa zole S <=20 F Piper acill in/Ta zobac herrera S <=4 F Not Available [facility] [address] [place], [address] 10/18/2024 08:05:44 10/16/20 24 10/16/2024 urina lysis , dipst ick Leukocytes Trace Not Available [address], [address], 10/16/2024 16:29:47 10/16/20 24 10/16/2024 urina lysis , dipst ick Nitrite positi ve Not Available [address], [address], 10/16/2024 16:29:47 10/16/20 24 10/16/2024 urina lysis , dipst ick Urobilinogen .2 Not Available [facility] [address] [place], [address], 10/16/2024 16:29:47 10/16/20 24 10/16/2024 urina lysis , dipst ick Protein 2000+ Not Available [address], [address], 10/16/2024 16:29:47 10/16/20 24 10/16/2024 urina lysis , dipst ick pH 6.0 Not Available [address], [address], 10/16/2024 16:29:47 10/16/20 24 10/16/2024 urina lysis , dipst ick Blood Large Not Available [facility] [address] [place], [address], 10/16/2024 16:29:47 10/16/20 24 10/16/2024 urina lysis , dipst ick Specific [place] 1.025 Not Available [facility] [address] [place], [address], 10/16/2024 16:29:47 10/16/20 24 10/16/2024 urina lysis , dipst ick Ketone Negati ve Not Available [address], [address], 10/16/2024 16:29:47 10/16/20 24 10/16/2024 urina lysis , dipst ick Bilirubin Negati ve Not Available [address], [address], 10/16/2024 16:29:47 10/16/20 24 10/16/2024 urina lysis , dipst ick Glucose Negati ve Not Available [address], [address], 10/16/2024 16:29:47 10/16/20 24 10/16/2024 urina lysis , dipst ick Appearance Cloudy Not Available [address], [address], 10/16/2024 16:29:47 10/16/20 24 10/16/2024 urina lysis , dipst ick Color Dark Yellow Not Available [address], [address], 10/16/2024 16:29:47 03/24/20 24 03/24/2024 MAMMO , scree rosette, bilat eral Caron madrigal Name: Jaxon Yanes Unit #: [id number] Loc: DI Orderi ng Provid er: Maggie Swanson rn Accoun t #: [id number] Status : REG CLI Primar y Care Provid er: Maggie Swanosn rn Date of Exa m: Sex: F [...] s. 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 [id number] 111 Transc ribed By: Madison RIVAS,Daljit palmer 111 This is privil eged, confid ential inform ation intend ed only for the provid er named. Any use or distri bution by any person other than this provid er is strict ly prohib ited. If you receiv e this report in error, please notify us immisaiahi kenji at and return the origin al report to us at the addres s above. Thank- you. [email or web address] [facility] [address], [place], [address], 04/04/2024 08:34:55 07/21/2007/20/2020 imagi ng/di agnos tic resul t No observ ation record ed. Not Available 07/21 02:49:18 07/21/2003/23/2023 MAMMO , diagn ostic No observ ation record ed. Not Available 07/21 02:51:54 07/21/20 24 01/27/2021 MAMMyuriy [place] No observ ation record ed. Not Available 07/21 02:51:57 07/21/20 24 03/23/2023 MAMMyuriy [place] No observ ation record ed. Not Available 07/21 02:51:58 07/21/20 24 04/16/2020 XR, hand No observ ation record ed. Not Available 07/21 02:52:07 07/21/20 24 11/17/2021 XR, hand No observ ation record ed. 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 16:04:27 Obesity 090591128 Active 201010/28/20 21 - Comments only - Guero Ravi PADiamondC - BMI 40. Working with [facility]. Requeste d laborato ry testing collecte d today. Problem Code: E66.9; Problem Code Type: ICD-10; Not Available [facility] 3 04:30:53 Posttrau matic stress disorder 32601012 Active 2011 Problem Code: F43.10; Problem Code Type: ICD-10; Not Available [facility] 3 04:30:53 History of infectio us disease 050784986 Active 2012 Problem Code: Z86.19; Problem Code Type: ICD-10; Not Available [facility] 3 04:30:53 Pain of left shoulder joint 24138533539 186606 Completed 201408/28/2023 Problem Code: M25.512; Problem Code Type: ICD-10; Not Available [facility] 4 05:37:23 Insomnia 134463161 Active 201507/12/20 16 - Comments only - Guero Ravi PA-C - Supporti ve listenin g provided today. Will arrange for patient to schedule with [employer] for behavior al health supports to address acute stress associat ed with upcoming legal proceedi ngs. Otherwis e to continue on TRAZODON E 50-100mg QHS PRN for sleep. Problem Code: G47.00; Problem Code Type: ICD-10; Not Available [facility] 3 04:30:53 Rodgers' s esophagu s 426052912 Active 201510/28/20 21 - Comments only - Guero Ravi PA-C - Followed by [facility] gastroen terology . To continue on PROTONIX 40mg BID as RXd by specialt y service provider . Next EGD due . Problem Code: K22.70; Problem Code Type: ICD-10; Not Available [facility] 3 04:30:53 Diarrhea 56474076 Completed 201508/06/2016 07/31/20 16 - Comments only - Guero Ravi PA-C - Suspect sxs reflecti ve of self-perez iting viral gastroen teritis. In any event, patient without signs to suggest for ongoing infectio us risk. Letter drafted to employer to this effect. Problem Code: R19.7; Problem Code Type: ICD-10; Not Available [facility] 3 04:30:53 Anxiety disorder 301486393 Active 201512/04/19 23 - Comments only - Guero Ravi PA-C - - ANXIETY, PTSD Mood stable on CELEXA 20mg QD and TRAZODON E 50mg QHS PRN. Problem Code: F41.9; Problem Code Type: ICD-10; Not Available [facility] 3 04:30:53 Tension- type headache 964195150 Active 201612/17/19 19 - Comments only - Guero Ravi PA-C - Will refer to Nito Wells for PT/chiro practic treatmen t interven tions Problem Code: G44.209; Problem Code Type: ICD-10; Not Available [facility] 3 04:30:54 General examinat ion of patient Active 201612/04/19 23 - Comments only - Guero Ravi PA-C - PAP collecte d today. Bivalen COVID booster and PCV 20 administ ered today. Mammogra m to be schedule d at [facility] at next availabl e. 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 Problem Code: R60.0; Problem Code Type: ICD-10; Not Available [facility] 3 04:30:54 Rosacea 985648129 Active 201608/19/20 17 - Comments only - Guero Ravi PA-C - To begin RXD METROGEL 1% BID Problem Code: L71.9; Problem Code Type: ICD-10; Not Available [facility] 3 04:30:54 Acute upper respirat ory infectio n 72066266 Completed 201711/30/2017 11/16/19 18 - Comments only [...] J06.9; Problem Code Type: ICD-10; Not Available [facility] 3 04:30:54 Acute sinusiti s 94007141 Completed 201712/18/2017 12/04/19 18 - Comments only - Guero Ravi PA-C - Will treat with RXd AUGMENTI N 875-125m g BID x 7d. F/U PRN. Problem Code: J01.90; Problem Code Type: ICD-10; Not Available [facility] 3 04:30:54 Housing problems Completed 201712/18/2017 12/04/19 18 - Comments only - Guero Ravi PA-C - Supporti ve listenin g provided today. Patient stongly encourag ed to ilya prince with outside counseli ng provider ([employer] services not covered by current insuranc e provider ) for behavior al health supports . Therapy pet note provided as per patient request. Not Available [facility] 3 04:30:54 Diarrhea 88228563 Completed 201702/20/2018 02/07/20 18 - Comments only - Guero Ravi PA-C - Given chronici ty of sxs, will refer to [facility] gastroen terology for consider ation for colonosc opy and further treatmen t interven tions (suspect IBS). Problem Code: R19.7; Problem Code Type: ICD-10; Not Available [facility] 3 04:30:54 Plantar fascial fibromat osis 24729662 Completed 201706/07/2018 Problem Code: M72.2; Problem Code Type: ICD-10; Not Available [facility] 3 04:30:55 Chronic sinusiti s 59351729 Completed 201711/09/2018 Problem Code: J32.9; Problem Code Type: ICD-10; Not Available [facility] 3 04:30:55 Infectio n caused by Helicoba cter pylori 300528376 Active 2018 Problem Code: B96.81; Problem Code Type: ICD-10; Not Available [facility] 3 04:30:55 Plantar fascial fibromat osis 65079238 Completed 201812/31/2018 12/17/19 19 - Comments only - Guero Ravi PA-C - As per patient request, will refer to [facility] podiatry for consider ation towards more CORTISON E injectio n Problem Code: M72.2; Problem Code Type: ICD-10; Not Available [facility] 3 04:30:55 Enthesop athy 26623136 Completed 201908/28/2023 Problem Code: M77.8; Problem Code Type: ICD-10; Not Available [facility] 4 05:37:22 Benign neoplasm of skin 76558540 Completed 201908/28/2023 Problem Code: D23.9; Problem Code Type: ICD-10; Not Available [facility] 4 05:37:22 Herpes zoster 9439828 Completed 201908/28/2023 Problem Code: B02.9; Problem Code Type: ICD-10; Not Available [facility] 4 05:37:23 Dog bite Completed 201905/04/2020 04/20/20 20 - Comments only - Guero Ravi PA-C - Wound appears to be healing well. Excused from work duties through 04/22/20. To continue on AUGMENTI N as RXD by ISAIAH Lau/[place] PRN. Not Available [facility] 3 04:30:56 Foot pain 63425061 Completed 201906/28/2020 06/14/20 20 - Comments only - Guero Ravi PA-C - Suggeste d patient explore more supporti ve footwear and/or blister proof socks if she intends to continue with walking activiti es. Will refer to podiatry to assess for custom orthotic s. Problem Code: M79.673; Problem Code Type: ICD-10; Not Available [facility] 3 04:30:56 Peroneal tendinit is of right lower limb 81343251634 9109 Completed 201908/28/2023 Problem Code: M76.71; Problem Code Type: ICD-10; Not Available [facility] 4 05:37:24 Pre-surg he evaluati on Completed 201908/03/2020 07/20/20 20 - Comments only - Guero Ravi PA-C - In-offic e EKG shows NSR @ XXbpm. Assuming benign findings with today's laborato ry testing, medicall y cleared for surgery as schedule d. Problem Code: Z01.818; Problem Code Type: ICD-10; Not Available [facility] 3 04:30:56 Bradycar nancy 69726168 Completed 201908/28/2023 Problem Code: R00.1; Problem Code Type: ICD-10; Not Available [facility] 4 05:37:22 Gastroes ophageal reflux disease without esophagi tis 518913931 Active 201912/04/19 23 - Comments only - Guero Ravi PA-C - - RODGERS' S ESOPHAGU S Followed by [facility] gastroen [facility]ology . To continue on PROTONIX 40mg BID as RXd by specialt y service provider . Next EGD due 2023- 6. Problem Code: K21.9; Problem Code Type: ICD-10; Not Available [facility] 3 04:30:56 Pain in left lower limb 768230945 Active 201910/30/20 22 - Comments only - [...] M79.605; Problem Code Type: ICD-10; Not Available [facility] 3 04:30:56 Non-scar ring alopecia 043119747 Completed 202008/28/2023 Problem Code: L65.9; Problem Code Type: ICD-10; Not Available [facility] 4 05:37:21 Pain in right hand 69018406085 9109 Completed 202008/28/2023 Problem Code: M79.641; Problem Code Type: ICD-10; Not Available [facility] 4 05:37:21 Pain of toe of left foot 28529000336 9108 Completed 202105/21/2022 05/18/20 - Comments only - Guero Ravi PA-C [...] M79.675; Problem Code Type: ICD-10; Not Available [facility] 3 04:30:57 COVID-19 048142331 Active 2021 Problem Code: U07.1; Problem Code Type: ICD-10; Not Available [facility] 3 04:30:57 Screenin g mammogra phy Active 2022 Problem Code: Z12.31; Problem Code Type: ICD-10; Not Available [facility] 3 04:30:57 Steatosi s of liver 806068770 Active 202212/04/19 23 - Comments only - Guero Ravi PA-C - CMP and CBC collecte d today as monitori ng. Problem Code: K76.0; Problem Code Type: ICD-10; Not Available [facility] 3 04:30:57 Screenin g for malignan t neoplasm of colon Active 2022 Problem Code: Z12.11; Problem Code Type: ICD-10; Not Available [facility] 3 04:30:58 Neck pain 33062836 Active 2022 Problem Code: M54.2; Problem Code Type: ICD-10; Not Available [facility] 3 04:30:58 Major depressi on, single episode 66418692 Active 200904/26/20 21 - Comments only - Guero Ravi PA-C - Stable on CELEXA 30mg QD +/- TRAZODON E PRN for sleep Problem Code: F32.9; Problem Code Type: ICD-10; Not Available [facility] 3 04:30:58 Screenin g for cardiova scular system disease Completed 201408/19/2017 Problem Code: Z13.6; Problem Code Type: ICD-10; Not Available [facility] 3 04:30:58 Chronic maxillar y sinusiti s 49387576 Completed 201710/15/2018 Problem Code: J32.0; Problem Code Type: ICD-10; Not Available [facility] 3 04:30:58 Tubal ligation done 36745468883 108 Completed 201108/01/2023 Not Available [facility] 3 04:30:58 Shoulder joint pain 690439783 Completed 201408/01/2023 07/26/20 15 - Comments only - Guero Ravi PA-C - Patient to f/u with [facility] orthoped ics for evaluati on as schedule d. Problem Code: 719.41; Problem Code Type: ICD-9; Not Available [facility] 3 04:30:59 Elevated blood-pr essure reading without diagnosi s of hyperten danny 630426425 Completed 201608/19/2017 Problem Code: R03.0; Problem Code Type: ICD-10; Not Available [facility] 3 04:30:59 Dysphagi a 17616459 Completed 201409/24/2016 Problem Code: R13.10; Problem Code Type: ICD-10; Not Available [facility] 3 04:30:59 Chronic rhinitis 86623551 Completed 201504/21/2016 Problem Code: J31.0; Problem Code Type: ICD-10; Not Available [facility] 3 04:30:59 Pelvic and perineal pain 521254597 Completed 201907/20/2020 Problem Code: R10.2; Problem Code Type: ICD-10; Not Available [facility] 3 04:30:59 Abdomina l pain 05669780 Completed 201404/21/2016 Problem Code: R10.9; Problem Code Type: ICD-10; Not Available [facility] 3 04:31:00 Acute pharyngi tis 256678670 Completed 201812/15/2019 Problem Code: J02.9; Problem Code Type: ICD-10; Not Available [facility] 3 04:31:00 Urinary tract infectio us disease 85374183 Completed 201708/01/2023 Problem Code: N39.0; Problem Code Type: ICD-10; Not Available [facility] 3 04:31:00 Pain in right lower limb 257085402 Completed 201608/19/2017 Problem Code: M79.604; Problem Code Type: ICD-10; Not Available [facility] 3 04:31:00 Acute upper respirat ory infectio n 04191620 Completed 201508/19/2017 Problem Code: J06.9; Problem Code Type: ICD-10; Not Available [facility] 3 04:31:00 Increase d frequenc y of urinatio n 619872739 Completed 201907/20/2020 Problem Code: R35.0; Problem Code Type: ICD-10; Not Available [facility] 3 04:31:01 Migraine 35277414 Completed 201608/01/2023 Problem Code: G43.909; Problem Code Type: ICD-10; Not Available [facility] 3 04:31:01 Arthralg ia of the ankle and/or foot 212403022 Completed 201610/15/2018 Problem Code: M25.572; Problem Code Type: ICD-10; Not Available [facility] 3 04:31:01 Depressi ve disorder 40718013 Completed 200908/01/2023 Not Available [facility] 3 04:31:01 Human papillom avirus negative squamous cell carcinom a Completed 201108/01/2023 Not Available [facility] 3 04:31:01 Fever 062250425 Completed 201509/24/2016 Problem Code: R50.9; Problem Code Type: ICD-10; Not Available [facility] 3 04:31:02 Fatigue 16239959 Completed 201509/24/2016 Problem Code: R53.83; Problem Code Type: ICD-10; Not Available [facility] 3 04:31:02 Dysuria 23986350 Completed 201710/15/2018 Problem Code: R30.0; Problem Code Type: ICD-10; Not Available [facility] 3 04:31:02 Posttrau matic stress disorder 15410997 Completed 201008/01/2023 Not Available [facility] 3 04:31:02 Lumbosac ral radiculo craig 8875780 Completed 201408/01/2023 02/07/20 16 - Comments only - Guero Ravi PA-C - Given lack of improvem ent with [facility] tried PT guided rehab, will initiate refer to [facility] for consider ation towards interven tional treatmen ts. In the interim, to increase NEURONTI N to 100mg QAM and 600mg QHS. Problem Code: M54.16; Problem Code Type: ICD-10; Not Available [facility] 3 04:31:03 Plantar fascial fibromat osis 47619080 Completed 201511/07/2016 Problem Code: M72.2; Problem Code Type: ICD-10; Not Available [facility] 3 04:31:03 Screenin g for malignan t neoplasm of cervix Completed 201107/20/2020 Problem Code: Z12.4; Problem Code Type: ICD-10; Not Available [facility] 3 04:31:03 Burn 372112850 Completed 201511/10/2016 Problem Code: T30.0; Problem Code Type: ICD-10; Not Available [facility] 3 04:31:04 Pain in right foot 96739455859 9107 Active [address], [facility] [address] , [facility] 3 13:59:23 Contact dermatit is 81651277 Completed 202208/28/2023 Problem Code: L25.9; Problem Code Type: ICD-10; Not Available [facility] 4 05:37:22 Pain in left lower limb 732714787 Completed 201408/28/2023 Problem Code: M79.605; Problem Code Type: ICD-10; Not Available [facility] 4 05:37:23 Pruritic rash 36826929 Active [address], [facility] [address] , [facility] 4 11:12:18 Notes:*Problem Name: + Lyme Titer *ICD-10 Codes: *Problem Status: inactive *Comments: *Note Date: 09/02/2013 *Problem Name: Ptsd--reactivation *ICD-10 Codes: *Problem Status: inactive *Comments: *Note Date: 02/11/2012 Problem Notes None recorded. Procedures Surgical History Date Name Laterality Status Provider Name and Address Organization Details Recorded Time 024 Barbi-en-Y gastrojejunostomy completed [address], [facility] [address], [facility] 06/09/2024 05:45:19 023 Date of Last Colonoscopy completed ASHUTOSH HAWTHORNE [facility] 12/03/2023 09:00:45 023 Most Recent Mammogram completed ASHUTOSH HAWTHORNE [facility] 12/03/2023 09:00:06 023 Date of Last Mammogram completed ASHUTOSH HAWTHORNE [facility] 12/03/2023 09:00:12 023 Date of Last Pap Smear completed ASHUTOSH HAWTHORNE [facility] 12/03/2023 08:59:13 Imaging Results Imaging Date Name Status LastModified by [facility] Details LastModified Time 03/24/2024 MAMMO, screening, bilateral completed [email or web address] [facility] [address], [place], [address], 04/04/2024 08:34:55 07/20/2020 imaging/diagnos tic result completed [...] Name and Address Organization Details Recorded Time 48608 Poison Indu medicatio n Not available Not available Not available 09/14/20232016 Aller gyNam e: 'POIS ON INDU'; Not Available [facility] 3 16:22:08 29904 oxycodone hydrochlo ride medicatio n vomiting Not available [facility] 09/14/20232011 [address], [place], [address] , [facility] 4 15:53:22 29347 diclofena c medicatio n other moderate Not available 09/14/20232019 3355 RxNorm GI UPSET Aller gyRea ction : 'GI UPSET '; Not Available [facility] 3 16:22:09 21566 ketchup food Not available Not available Not available 03/13/2024 Huber de oliveira [facility], [facility] 4 10:15:08 86454 ibuprofen medicatio n Not available Not available Not available 03/13/2024 5640 RxNorm avoid s due [place] tt's esoph afsaneh [address], [place], [address] , [facility] 4 15:53:05 52096 fish derived food,medi cation other Not available Not available 10/16/2024 conac t with skin cause s ga ; does not eat [address], [place], [address] , [facility] 4 15:55:04 Medications Name Sig Start Date Stop Date Status Note LastModified by Organization Details LastModified Time metformin 500 mg tablet 500mg-4 PO QD 12/04 completed [facility] Not Available Not Available Not Available nystatin [...] BEFORE MEALS AND HS PRN 01/21 completed [facility] Not Available Not Available Not Available metronidazo [...] % 97 % 84 /min 44.5 kg/m2 372639. 5 g 140 mm[Hg] 88 mm[Hg] ASHUTOSH HAWTHORNE MA [facility] 4 12:56:55 Date Recorded Body height Body mass index (BMI) Body weight Body temperature Oxygen saturation Oxygen saturation in Arterial blood by Pulse oximetry Heart rate Respiratory rate Systolic blood pressure Diastolic blood pressure Provider Name and Address Organization Details Last Updated DateTime 4 159.39 cm 42.9 kg/m2 864444. 17 g 98.1 [degF] 97 % 97 % 77 /min 18 /min 142 mm[Hg] 81 mm[Hg] Huber de oliveira MA [facility] 4 10:17:59 Date Recorded Body height Body mass index (BMI) Body weight Oxygen saturation Oxygen saturation in Arterial blood by Pulse oximetry Heart rate Systolic blood pressure Diastolic blood pressure Provider Name and Address Organization Details Last Updated DateTime 4 159.39 cm 41.1 kg/m2 264636. 68 g 96 % 96 % 75 /min 130 mm[Hg] 80 mm[Hg] Koko Horton MA [facility]. 4 11:46:43 Social History Question Answer Notes LastModified by Organizat ion Details LastModified Time Tobacco Smoking Status Never Smoker Tammy Corbett MA [facility], MD - [facility]. 09/21/2023 12:51:10 What Is Your Level Of Alcohol Consumption? None [email or web address] Information not available 09/21/2023 Would You Say [...] Use Any Illicit Or Recreational Drugs? No [email or web address] Information not available 09/21/2023 Has Tobacco Cessation [...] less than 55 years of age FATAL PA @ 37Y/O Not available 09/14/2023 03:54:39 Maternal [...] Recorded Time MMR 6 completed Not Available [facility] 09/14/2023 05:02:42 MMR 6 completed Not Available [facility] 09/14/2023 05:02:42 Td (adult), 5 Lf tetanus toxoid, preservative free, adsorbed 6 completed Not Available [facility] 09/14/2023 05:02:42 Tdap 8 completed Not Available [facility] 09/14/2023 05:02:43 Influenza, split virus, trivalent, preservative 5 completed Not Available [facility] 09/14/2023 05:02:43 Influenza, split virus, trivalent, preservative 6 completed Not Available [facility] 09/14/2023 05:02:43 Influenza, split virus, quadrivalent, PF 0 completed Not Available [facility] 09/14/2023 05:02:43 Influenza, split virus, quadrivalent, PF 1 completed Not Available [facility] 09/14/2023 05:02:43 Influenza, split virus, quadrivalent, PF 9 completed Not Available [facility] 09/14/2023 05:02:44 Influenza, split virus, quadrivalent, preservative 7 completed Not Available [facility] 09/14/2023 05:02:44 Influenza, split virus, quadrivalent, preservative 8 completed Not Available [facility] 09/14/2023 05:02:44 COVID-19, mRNA, LNP-S, PF, 100 mcg/0.5mL dose or 50 mcg/0.25mL dose 1 completed Not Available [facility] 09/14/2023 05:02:44 COVID-19, mRNA, LNP-S, PF, 100 mcg/0.5mL dose or 50 mcg/0.25mL dose 1 completed Not Available [facility] 09/14/2023 05:02:44 COVID-19, mRNA, LNP-S, PF, 100 mcg/0.5mL dose or 50 mcg/0.25mL dose 1 completed Not Available [facility] 09/14/2023 05:02:44 Pneumococcal conjugate PCV20, polysaccharide TPR116 conjugate, adjuvant, PF 3 completed Not Available [facility] 09/14/2023 05:02:45 COVID-19, mRNA, LNP-S, bivalent, PF, 30 mcg/0.3 mL dose 3 completed Not Available [facility] 09/14/2023 05:02:45 Hep B, adult 7 completed Not Available [facility] 09/14/2023 05:02:45 Hep B, unspecified formulation 6 completed Not Available [facility] 09/14/2023 05:02:45 Hep B, unspecified formulation 6 completed Not Available [facility] 09/14/2023 05:02:46 influenza, unspecified formulation 3 completed Not Available [facility] 09/14/2023 05:02:46 COVID-19, mRNA, LNP-S, PF, jae-sucrose, 30 mcg/0.3 mL 4 completed Lea bowers, [facility] 08/21/2024 15:47:44 Influenza, split virus, trivalent, PF 4 completed Lea bowers, [facility] 08/21/2024 15:47:44 COVID-19, mRNA, LNP-S, PF, jae-sucrose, 30 mcg/0.3 mL 3 completed Not Available [facility] 11/16/2023 05:33:21 Past Encounters Encounter ID Performer Location Encounter Start Date Encounter Closed Date Diagnosis/Indication Diagnosis SNOMED-CT Code Diagnosis ICD10 Code [id number] GEMA WAN PA-C [address] [place] [address] 09/21/2023 11:20:23 09/21/2023 14:02:44 Pain in right foot 5077333709 94109 M79.748 [id number] ASHUTOSH HAWTHORNE MA [address] [address] 12/04/2023 12:44:03 12/04/2023 13:59:41 Screening mammography 88384700 Z12.31 Adult heal th examination 616006170 Z00.00 Rodgers's esophagus 3029 85237 K22.70 Obesity 475649489 E66.9 Steatosis of liver 62500 1007 K76.0 Anxiety disorder 9254140 06 F43.12 [id number] GEMA WAN PA-C [address] [place] [address] 03/13/2024 09:37:46 03/13/2024 11:15:39 Pruritic rash 35778040 L28.2 [id number] GUERO RAVI PA-C [address] [address] 06/09/2024 11:38:05 06/09/2024 12:19:20 Anxiety disorder 126347938 F43.12 Gastroesop hageal reflux disease without esophagitis 980065344 K21.9 K22.70 Obesity 871534178 E66.9 Trigger th umb of left hand 7100020398 31517 M65.855 [id number] Lea Foley [facility] [address] [place] [address] 08/21/2024 15:28:41 08/21/2024 15:53:15 Active or passive immunization 036184306 Z23 [id number] EZEKIEL PEREA, TRASH COLLECTOR TRUCK DRIVER-[facility] [address] [place] [address] 10/16/2024 15:19:15 10/16/2024 16:21:22 Postmenopausal bleeding 65557605 N95.0 Urinary tr act infectious disease 61335521 N39.0 Health Concerns Section Related Observation LastModified by Organization Detai ls LastModified Time None Recorded Concern Status LastModified by Organization Details LastModified Time None Recorded Advance Directives Directive None Recorded Payers Encounter Date Sequence Insurance Name Policy Number Policy Walsh Covered Member ID Walsh Member ID Guarantor Name 12/04/2023 1 [employer] ([employer]ICAID) Vianney Chao Cook[place]ell [id number] Flacoisha Jeremie Cookpowell 03/13/2024 1 [employer] ([employer]ICAID) Vianney Chao [place]ell [id number] Rennya Jeremie Cook[employer]ell 06/09/2024 1 [employer] [place] ([employer]) Vianney Chao [place]ell [id number] Flacoisha Jeremie Cook[employer]ell 08/21/2024 1 [employer] [place] ([employer]ICAID) Vianney Chao [place]ell [id number] Flacoisha J Cook[employer]ell 10/16/2024 1 [employer] (MEDICAID) Vianney Chao [employer]ell [id number] [facility] Jeremie Cook[employer] Notes Date Note Type Note Provider Name and Address Organization Details Recorded Time 12/04/2023 text/html 48y/o female presenting for annual health maintenance exam. ANGEL MARSH, MD - [facility]. 12/04/2023 14:02:26 03/13/2024 text/html Vianney [...] for flea and tick. [address], [place], [address], [facility]. 03/13/2024 11:45:26 06/09/2024 text/html 48y/o female presenting [...] of gas. No nausea or vomiting. Afebrile. [address], [place], [address], [facility]. 06/09/2024 12:40:17 10/16/2024 text/html Vianney present s for dysuria and postmenopausal bleeding EZEKIEL DRAPER, [facility]- [address], [place], [address], [facility]. 10/16/2024 18:20:01 OBGyn Episode No OBEpisode recorded.
--- OUTSIDE RECORDS SUMMARY | 2024-10-25 13:22 | XMS_ITS | Encounter Summary ---
[facility] [place] [address] Care Team Providers Care Event Decorator Name Role Phone Sonido Cordoba Primary Care Provider +1- [phone] Encounter Details Date Type Department Care Team [...] Encounters Date Type Department Care Team ( st Contact Info) Description 11/26/2024 8:45 AM EST Appointment Ultrasound [place] [facility] [place] [address] DandreJustus Keri [address] [place] [address] 12/31/2024 10:00 AM EST Office [place] [address] Mercy Amanda MD [facility] [address] [place] [address] 04/01/2025 2:00 PM EDT Office Visit Gastroenterology [place] [address] Erum Szymanski MD [facility] [place] [address] documented as of this encounter Goals Goal [...] on filedocumented in this encounter Care Teams Event Decorator Relationship Specialty Start Date End Date Sonido Cordoba PA [address] [place] [address] PCP - General Family Medicine 07/06/20 documented as of this encounter
--- OUTSIDE RECORDS SUMMARY | 2024-10-25 13:22 | XMS_ITS | Encounter Summary ---
Author Organization [facility] [place] [address] Care Team Providers Care Photo Mask Pattern Generator Name Role Phone Sonido Cordoba Primary Care Provider +1- [phone] Encounter Details Date Type Department Care Team [...] 11/26/2024 8:45 AM EST Appointment Ultrasound at [facility] [place] [address] DandreJustus Keri [address] [place] [address] 12/31/2024 10:00 AM EST Office [place] [address] Mercy Amanda MD [facility] [address] [place] [address] 04/01/2025 2:00 PM EDT Office Visit Gastroenterology at [facility] [place] [address] Erum Szymanski MD [facility] [place] [address] documented as of this encounter Goals Goal [...] a priority: - Eggs - Cheese - Tamazight yogurt / cottage cheese - meat - [...] on filedocumented in this encounter Care Teams Photo Mask Pattern Generator Relationship Specialty Start Date End Date Sonido Cordoba PA [address] [place] [address] PCP - General Family Medicine 07/06/20 documented as of this encounter
--- OUTSIDE RECORDS SUMMARY | 2024-10-25 13:22 | XMS_ITS | Encounter Summary ---
Author Organization [facility] [place] [address] Care Team Providers Care Cuff Setter Name Role Phone Sonido Cordoba Primary Care Provider +1- [phone] Reason for Visit * Reason Comments Follow-up Encounter Details Date Type Department Care Team (Late st Contact Info) Description 09/15/2024 11:00 AM EST Office [place] [address] Dena Alexander, BEARINGIZER [facility] [place] [address] Belinda Heath, RD [facility] [place] [address] S/P gastric bypass; Gastroesophageal reflux disease with [...] Patient Instructions * Patient Instructions* Dena Alexander, BEARINGIZER - 09/15/2024 11:00 AM EST [facility] office support specialist Nichelle [phone] and Silva [phone] Dietitians: [phone] Surgeons/ nurse practitioners: [phone] Nurse line: [phone] Dear Vianney, Please see your electronic medical record note from today for details we discussed at your visit. Below is some additional general information that you may find helpful. Testing: It would be helpful if you can have your lab work drawn a couple days before your visit christine [facility] facility so the results are available at the time of your follow up visit. If you have labwork done by your primary caregivers homecare before that date, please have a copy sent to the Bariatric Surgery Program. Please call/send my message if you have not heard from us within 2 weeks of having labs work done. Here's the link to [facility] Lab hours and locations: [email or web address] Next visit: Follow up visits are done at 4 months and 12 months after surgery and yearly thereafter. Some patients are evaluated on a more frequent basis. Please call [phone] if you do not receive an appointment [...] Blow dry area on low setting with wheelchair driver. Avoid excessive heat and/or sweating as friction [...] such as Ibuprofen (Advil), Aleve (Naproxen), Excedrin, Erica-Newland should be used sparingly after gastric bypass, [...] Our post surgery support group meets at [facility] on the first Sunday of every month from 1:00 PM-2:00 PM. You can attend online or in person. Use the following link to attend online: [email or web address] Nutrition and Activity apps- Baritastic, My Fitness Pal, Lose It, My Plate Internet resources: www.Grid2020 wwwTop Image Systems www.XM RadioeaAirPatrol Corporation.Impossible Software www.Embrace.Impossible Software/blog [facility] facebook page: https://www.facebook.[email or web address]/[email or web address] Books & Magazines: - Recipes for Life After Weight Loss Surgery by Cassy Lux - Shrink Yourself by Dr Andrew Westbrook - Eating Well - www.Crossbar.Impossible Software - Cooking Light- www.cookinglight.Impossible Software Anxiety: The Happiness Trap by Nabil Rios The Mindfulness and acceptance workbook for anxiety By Da Monge. Mindful eating: What are you Hungry For? By Adi Forrest The Mindful Diet by Merari Marina and the [facility] group. Emotional eating: End Emotional Eating by Belinda Osorio Calming the Emotional Storm Chanell Brownlee documented in this encounter Progress Notes * Dnea Alexander APRN - 09/15/2024 11:00 AM EST [place] [address] Reason for visit: Bariatric Surgery follow up [...] denies SOB or cough. GI: as above ADDICTION PROFESSIONAL: tubal ligation Skin: No c/o redundant skin or skin fold rashes. 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 Health Habits: Tobacco: None. ETOH: [...] bariatric eating behaviors. Patient has met with line runner today, please see note for additional details/dietary [...] If labwork is done by the primary caregivers homecare: please send a copy to the Bariatric Surgery Program, General Surgery Clinic, [facility], or fax [phone] * Belinda Heath RD - 09/15/2024 11:00 [...] out. Social history: Works two jobs - 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. 3 children. Pt lives with 2 sons, granddaughter (pt has guardianship). Has SO, does not live with him. Social support: SO, children, mom, sister in [place] Hobbies: walking, hiking, fishing (allergy so can't touch the fish), spending time w family and friends Vision at 2 years post-op: improved quality of life, easier time climbing [place], has a lot of trails she'd like [...] 09/15/24 206.5# 43% 37.6 4 months post-op [place] Body Weight (based on BMI of 25): [...] Care Team (Late st Contact Info) Description 11/26/2024 8:45 AM EST Appointment [place] [address] Keri Avila [address] [place] [address] 12/31/2024 10:00 AM EST Office [place] [address] Mercy Amanda MD [facility] DR [facility] [place], [place] [phone] 04/01/2025 2:00 PM EDT Office [place] [address] Erum Szymanski MD [facility] [address] documented as of this encounter Goals Goal [...] type documented in this encounter Care Teams Cuff Setter Relationship Specialty Start Date End Date Sonido Cordoba PA [address] [place] [address] PCP - General Family Medicine 07/06/20 documented as of this encounter
--- OUTSIDE RECORDS SUMMARY | 2024-10-25 13:22 | XMS_ITS | Encounter Summary ---
[place] [address] Care Team Providers Care Lubricating Machine Tender Name Role Phone Sonido Cordoba Primary Care Provider +1- [phone] Encounter Details Date Type Department Care Team (Late st Contact Info) Description 06/06/2024 Telephone [place] [address] Lacy Allen RN Social History [...] phone discussion took place with patient, Vianney Cordeor was called via phone for post discharge [...] 11/26/2024 8:45 AM EST [place] [address] Keri Avila [address] [place] [address] 12/31/2024 10:00 AM EST Office [place] [address] Mercy Amanda MD [facility] [address] [facility] [address] 04/01/2025 2:00 PM EDT Office Visit Gastroenterology at [facility] [place] [address] Erum Szymanski MD [facility] [place] [address] documented as of this encounter Goals Goal [...] a priority: - Eggs - Cheese - Sami yogurt / cottage cheese - meat - [...] on filedocumented in this encounter Care Teams Lubricating Machine Tender Relationship Specialty Start Date End Date Sonido Cordoba PA [address] [place] [address] PCP - General Family Medicine 07/06/20 documented as of this encounter
--- OUTSIDE RECORDS SUMMARY | 2024-10-25 13:22 | XMS_ITS | Encounter Summary ---
[place] [address] Care Team Providers Care Vehicle Detailer Name Role Phone Sonido Cordoba Primary Care Provider +1- [phone] Encounter Details Date Type Department Care Team (Latest Contact Info) Description 09/10/2024 7:15 AM EST Laboratory Appointment Lab 3L [place] [address] S/P gastric bypass; Intestinal malabsorption, [...] 11/26/2024 8:45 AM EST [place] [address] DandreJustus Keri [address] [place] [address] 12/31/2024 10:00 AM EST Office [place] [address] Mercy Amanda MD [facility] [address] [place] [address] 04/01/2025 2:00 PM EDT Office [place] [address] Erum Szymanski MD [facility] GASTROENTEROLOGY [place], [place] [phone] documented as of this encounter Goals Goal [...] Comprehensive metabolic panel (09/10/2024 7:23 AM EST) [facility] Glucose 93 65 - 99 mg/dL 09/10/2024 8:06 AM [facility] Comment: Fasting Glucose Interpretive [...] 35 - 105 unit/L 09/10/2024 8:06 AM EST [facility] Bilirubin, Total 0.3 <=1.3 mg/dL 09/10/2024 8:06 AM EST [facility] Est Glomerular Filtration Rate - Female 108 mL/min/1. 73 m?? 09/10/2024 8:06 AM EST [facility] Comment: This patient's estimated [...] Fasting Status Yes 09/10/2024 8:06 AM EST [facility] Blood VENOUS BLOOD SPECIMEN / Unknown Venipuncture / Unknown 09/10/2024 7:23 AM EST 09/10/2024 7:24 AM EST Dena Alexander APRN CHEMISTRY ORDERA BLES [facility] [place] [address] * Ferritin (09/10/2024 7:23 AM EST) Ferritin 157 6 - 175 ng/ml 09/10/2024 8:19 AM EST [facility] Blood VENOUS BLOOD SPECIMEN / Unknown Venipuncture / Unknown 09/10/2024 7:23 AM EST 09/10/2024 7:24 AM EST Dena Alexander APRN CHEMISTRY ORDERA BLES [facility] [place] [address] * Folate, serum (09/10/2024 7:23 AM EST) Pathologist [facility] Folate 7.6 4.8 - 24.2 ng/ml 09/10/2024 8:19 AM [facility] Blood VENOUS BLOOD SPECIMEN / Unknown Venipuncture / Unknown 09/10/2024 7:23 AM EST 09/10/2024 7:24 AM EST Dena Alexander SKEIN MERCERIZING MACHINE OPERATOR CHEMISTRY ORDERA BLES [facility] [place] [address] * Hemogram (09/10/2024 7:23 AM EST) [facility] White Blood Cell 7.38 4.00 - 9.50 [...] NRBC% auto 0.0 % 09/10/2024 7:44 AM [facility] NRBC Absolute <0.01 <0.01 x10(3)/mcL 09/10/2024 7:44 AM [facility] Blood VENOUS BLOOD SPECIMEN / Unknown Venipuncture / Unknown 09/10/2024 7:23 AM EST 09/10/2024 7:24 AM EST Dena Alexander APRN HEMATOLOGY ORDER SUGAR [facility] [place] [address] * Iron and TIBC (09/10/2024 7:23 AM EST) Iron 92 30 - 150 mcg/dL 09/10/2024 8:06 AM [facility] TIBC 316 250 - 450 mcg/dL 09/10/2024 8:06 AM [facility] Iron Saturation 29 20 - 50 % 8:06 AM [facility] Blood VENOUS BLOOD SPECIMEN / Unknown Venipuncture / Unknown 09/10/2024 7:23 AM EST 09/10/2024 7:24 AM EST Dena Alexander APRN CHEMISTRY ORDERA BLES [facility] [place] [address] * PTH (09/10/2024 7:23 AM EST) Parathyroid Hormone 64 15 - 65 pg/mL 09/10/2024 8:00 AM [facility] Blood VENOUS BLOOD SPECIMEN / Unknown Venipuncture / Unknown 09/10/2024 7:23 AM EST 09/10/2024 7:24 AM EST Dena Alexander APRN CHEMISTRY ORDERA BLES Performing Organization Address City/[facility]/ZIP Co de Phone Number [facility] [place] [address] * Vitamin B1, whole blood (09/10/2024 7:23 AM EST) Pathologist [facility] Vit B1 Lvl Wb March 135 70 - 180 nmol/L 09/13/2024 3:13 PM EST [facility] [place] Comment: ADDITIONAL INFORMATION This test was developed and its performance characteristics determined by [facility] in a manner consistent with CLIA requirements. This test has not been cleared or approved by the U.S. Food and Drug Administration. Blood VENOUS BLOOD SPECIMEN / Unknown Venipuncture / Unknown 09/10/2024 7:23 AM EST 09/10/2024 7:24 AM EST Narrative [facility] [place] - 09/13/2024 3:13 PM EST Test Performed by: [place] [address] Scuba Diving Instructor: Toshia Enriquez Ph.D.; CLIA# [id number] Dena Alexander APRN LAB SEND OUT ORD ERABLES Performing Organization Address [facility]/ZIP Co de Phone Number REF LAB [address] * Vitamin D, 25-Hydroxy (09/10/2024 7:23 AM EST) [facility] Vitamin D Total 25 OH 29 21 - 100 ng/ml 09/10/2024 8:19 AM EST [facility] Vitamin D Total 25 OH Interp Insufficient 09/10/2024 8:19 AM EST [facility] Blood VENOUS BLOOD SPECIMEN / Unknown Venipuncture / Unknown 09/10/2024 7:23 AM EST 09/10/2024 7:24 AM EST Dena Alexander APRN CHEMISTRY ORDERA BLES Performing Organization Address City/[facility]/ZIP Co de Phone Number [facility] [place] [address] * Vitamin B12 (09/10/2024 7:23 AM EST) Vitamin B12 571 232 - 1,245 pg/mL 09/10/2024 10:56 AM EST [facility] Blood VENOUS BLOOD SPECIMEN / Unknown Venipuncture / Unknown 09/10/2024 7:23 AM EST 09/10/2024 7:24 AM EST Dena Alexander APRN CHEMISTRY ORDERA BLES Performing Organization Address [facility] Co de Phone Number [facility] [place] [address] documented in this encounter Visit Diagnoses Diagnosis S/P gastric bypass Bariatric surgery status Intestinal malabsorption, unspecified type Disorder of iron metabolism Other disorders of iron metabolism documented in this encounter Care Teams Vehicle Detailer Relationship Specialty Start Date End Date Sonido Cordoba PA [address] [place] [address] PCP - General Family Medicine 07/06/20 documented as of this encounter
--- OUTSIDE RECORDS SUMMARY | 2024-10-25 13:22 | XMS_ITS | Encounter Summary ---
Author Organization [facility] [place] [address] Care Team Providers Care Nailhead Operator Name Role Phone Sonido Cordoba Primary Care Provider [phone]- [phone] Reason for Visit * Reason Comments Follow-up Encounter Details Date Type Department Care Team (Late st Contact Info) Description 06/20/2024 12:30 PM EDT Office [place] [address] Dena Alexander, STONECUTTER [facility] [place] [address] Belinda Heath, RD [facility] [place] [address] S/P gastric bypass; Intestinal malabsorption, unspecified type; Disorder of iron metabolism Social History Tobacco Use Types Packs/Day Years Used Date Smoking Tobacco: Former Cigarettes 0.5 6 0 01/25/1991 - 01/25/1997 Smokeless Tobacco: Never Alcohol Use Standard Drinks/Week Comments Not Currently 0 (1 standard drink = 0.6 oz pur e alcohol) 1X/quarter [facility] Inpatient Questions Answer Date Recorded Does Anyone [...] First Post-operative Follow up visit Contact information: [facility] sales support rep: Nichelle: [phone] and Silva [phone] Dietitians: [phone] Surgeons/ nurse practitioners: [phone] Nurse line: [phone] Dear Vianney, Thank you for following up with the Bariatric Surgery Program at [facility]. Please review your medical note from today's [...] to 6:00 pm. Here's the link to [facility] Lab hours and locations, in case one of the other locations is more convenient for you: [email or web address] If you have labwork done by your primary health care sanitary technician before that date, please have a copy [...] Blow dry area on low setting with hair clipper power. Apply absorbent powder such as Gold [place] [...] such as Ibuprofen (Advil), Aleve (Naproxen), Excedrin, Erica-Aston should be avoided for at least the [...] Our post surgery support group meets at [facility] on the sunday of every month from 1:00 PM-2:00 PM, call to sign up! Nutrition and Activity apps- Baritastic, My Fitness Pal, Lose It, My Plate Internet resources: www.RedLasso wwwSongHi Entertainment www.InSite VisioneaWhale Imaging www.AirPlug/blog [facility] facebook page: https://www.facebook.com/[facility]ric[facility]gery Books & Magazines: - Recipes for Life After Weight Loss Surgery by Casys Lux - Shrink Yourself by Dr Andrew Westbrook - Eating Well - www.Viroclinics Biosciences - Cooking Light- www.cookinglight.MESI Anxiety: The Happiness Trap by Nabil Rios The Mindfulness and acceptance workbook for anxiety By Da Monge. Mindful eating: What are you Hungry For? By Adi Forrest The Mindful Diet by Merari Marina and the [facility] group. Emotional eating: End Emotional Eating by Belinda Osorio Calming the Emotional Storm Chanell Brownlee documented in this encounter Progress Notes * Dena Alexander APRN - 06/20/2024 12:30 PM EDT [place] [address] Reason for visit: Bariatric Surgery Post Op Check Surgery Info: s/p laparoscopic takedown of Addie and Barbi-en-Y gastric bypass on 05/29/[address] Damon. Pathology- - Segment of stomach lined with unremarkable fundic gland mucosa. Subjective: Vianney Cordero is s/p the above procedures, post operative course has been going ok. She did advance her diet sooner than recommended with mohawk muffin which didn't go well. She is [...] her house Social history/support. 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 Partner is supportive and is [...] has hx of mix's so will continuePPI assisted. Bowel Function: reviewed bowel regimen and importance [...] Avoid advancing diet sooner than recommended. See career and technology education teacher note re: recommendations regarding vitamin and mineral supplementation, fluid intake and exercise. Return to work note given for 07/08/24 RTC in 3 months for next BSP follow up visit, with labs(ordered). Call/rtc sooner prn with questions/concerns or unexplained abdominal pain, prolonged nausea, vomiting or inability to hydrate Bariatric Program Summary report is availabe for patient's review via e-DH Dena Alexander APRN [facility] Bariatric Surgery Program RECOMMENDED BARIATRIC SURGERY PROGRAM [...] If labwork is done by the primary health care sanitary technician: please send a copy to the Bariatric Surgery Program, General Surgery Clinic, [facility], or fax [phone] * Belinda Heath, RD - 06/20/2024 12:30 PM EDT Bariatric Nutrition Follow-up Visit Topics Discussed/Patient Concerns: No specific dietary concerns. 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 3 children. Pt lives with 2 sons, granddaughter (pt has guardianship). Has SO, does not live with him. Social support: SO, children, mom, sister in [place] Hobbies: walking, hiking, fishing (allergy so can't touch the fish), spending time w family and friends Vision at 2 years post-op: improved quality of life, easier time climbing [place], has a lot of trails she'd like [...] 38.5 3 weeks post-op 4 months post-op [place] Body Weight (based on BMI of 25): [...] Occ popsicles. Breakfast Poached egg and 1/2 [place] Islander muffin AM Snack Lunch Ground turkey PM [...] 11/26/2024 8:45 AM EST [place] [address] Keri Avila [address] [place] [address] 12/31/2024 10:00 AM EST Office [place] [address] Mercy Amanda MD [facility] [address] [place] [address] 04/01/2025 2:00 PM EDT Office Visit Gastroenterology at [facility] [place] [id number] Erum Szymanski MD [facility] [place] [address] documented as of this encounter Goals Goal [...] - 100 ng/ml 09/10/2024 8:[address] [facility] Vitamin D Total 25 OH Interp Insufficient 09/10/2024 8:19 AM [facility] Blood VENOUS BLOOD SPECIMEN / Unknown Venipuncture / Unknown 09/10/2024 7:23 AM EST 09/10/2024 7:24 AM EST Dena Alexander APRN CHEMISTRY ORDERA BLES Performing Organization Address City/[facility]/ZIP Co de Phone Number [facility] [place] [address] * Vitamin B12 (09/10/2024 7:23 AM EST) Vitamin B12 571 232 - 1,245 pg/mL 09/10/2024 10:[address] [facility] Blood VENOUS BLOOD SPECIMEN / Unknown Venipuncture / Unknown 09/10/2024 7:23 AM EST 09/10/2024 7:24 AM EST Dena Alexander APRN CHEMISTRY ORDERA BLES Performing Organization Address [facility] Co de Phone Number [facility] [place] [address] * Vitamin B1, whole blood (09/10/2024 7:23 AM EST) Vit B1 Lvl Wb March 135 70 - 180 nmol/L 09/13/2024 3:13 PM EST REF LAB [place] Comment: ADDITIONAL INFORMATION This test was developed and its performance characteristics determined by [facility] in a manner consistent with CLIA requirements. This test has not been cleared or approved by the U.S. Food and Drug Administration. Blood VENOUS BLOOD SPECIMEN / Unknown Venipuncture / Unknown 09/10/2024 7:23 AM EST 09/10/2024 7:24 AM EST Narrative REF LAB [facility] 09/13/2024 3:13 PM EST Test Performed by: [facility] - [address] [address] Principal Architect: Toshia Enriquez Ph.D.; CLIA# [id number] Dena Alexander APRN LAB SEND OUT ORD ERABLES REF LAB [place] [address] JIM[place] [address] * PTH (09/10/2024 7:23 AM EST) Pathologist [facility] Parathyroid Hormone 64 15 - 65 pg/mL 09/10/2024 8:[address] [facility] Blood VENOUS BLOOD SPECIMEN / Unknown Venipuncture / Unknown 09/10/2024 7:23 AM EST 09/10/2024 7:24 AM EST Dena Alexander APRN CHEMISTRY ORDERA BLES Performing Organization Address City/[facility]/ZIP Co de Phone Number [facility] [place] [address] * Iron and TIBC (09/10/2024 7:23 AM EST) Pathologist [facility] Iron 92 30 - 150 mcg/dL 09/10/2024 8:[address] [facility] TIBC 316 250 - 450 mcg/dL 09/10/2024 8:[address] [facility] Iron Saturation 29 20 - 50 % 8:06 AM [facility] Blood VENOUS BLOOD SPECIMEN / Unknown Venipuncture / Unknown 09/10/2024 7:23 AM EST 09/10/2024 7:24 AM EST Dena Alexander APRN CHEMISTRY ORDERA BLES [facility] [place] [address] * Hemogram (09/10/2024 7:23 AM EST) Pathologist [facility] White Blood Cell 7.38 4.00 - 9.50 x10(3)/mcL 09/10/2024 7:44 AM [facility] Red Blood Cell 4.44 4.00 - 5.21 x10(6)/mcL 09/10/2024 7:44 AM [facility] Hemoglobin 13.1 11.7 - 15.5 g/dL 09/10/2024 7:44 AM [facility] Hematocrit 39.2 35.7 - 45.8 % 09/10/2024 7:44 AM [facility] Mean Cell Volume 88.3 82.6 - 94.4 fL 09/10/2024 7:44 AM [facility] Mean Cell Hemoglobin 29.5 27.1 - 32.0 pg 09/10/2024 7:44 AM [facility] Mean Cell Hemoglobin Concentration 33.4 31.7 - 35.0 g/dL 09/10/2024 7:44 AM [facility] Platelet 261 145 - 357 x10(3)/mcL 09/10/2024 7:44 AM [facility] Mean Platelet Volume 10.8 7.6 - 12.9 fL 09/10/2024 7:44 AM [facility] RDW Standard Deviation 39.2 37.0 - 46.0 fL 09/10/2024 7:44 AM [facility] RDW coefficient of variation 12.1 11.5 - 14.1 % 09/10/2024 7:44 AM [facility] NRBC% auto 0.0 % 09/10/2024 7:44 AM [facility] NRBC Absolute <0.01 <0.01 x10(3)/mcL 09/10/2024 7:44 AM [facility] Blood VENOUS BLOOD SPECIMEN / Unknown Venipuncture / Unknown 09/10/2024 7:23 AM EST 09/10/2024 7:24 AM EST Dena Alexander APRN HEMATOLOGY ORDER SUGAR [facility] [place] [address] * Folate, serum (09/10/2024 7:23 AM EST) Folate 7.6 4.8 - 24.2 ng/ml 09/10/2024 8:[address] [facility] Blood VENOUS BLOOD SPECIMEN / Unknown Venipuncture / Unknown 09/10/2024 7:23 AM EST 09/10/2024 7:24 AM EST Dena Alexander APRN CHEMISTRY ORDERA BLES Performing Organization Address City/[facility]/ZIP Co de Phone Number [facility] [place] [address] * Ferritin (09/10/2024 7:23 AM EST) Ferritin 157 6 - 175 ng/ml 09/10/2024 8:[address] [facility] Blood VENOUS BLOOD SPECIMEN / Unknown Venipuncture / Unknown 09/10/2024 7:23 AM EST 09/10/2024 7:24 AM EST Dena Alexander APRN CHEMISTRY ORDERA BLES Performing Organization Address City/[facility]/ZIP Co de Phone Number [facility] [place] [address] * (ABNORMAL) Comprehensive metabolic panel (09/10/2024 7:23 AM EST) Glucose 93 65 - 99 mg/dL 09/10/2024 8:06 AM [facility] Comment: Fasting Glucose Interpretive Criteria: Normal: [...] mg/dL 09/10/2024 8:06 AM [facility] Creatinine 0.70 0.70 - 1.20 mg/dL 09/10/2024 8:06 AM [facility] Sodium 141 135 - 145 mMol/L 09/10/2024 8:06 AM [facility] Potassium 3.9 3.5 - 5.0 mMol/L 09/10/2024 8:06 AM [facility] Chloride 108(H) 98 - 107 mMol/L 09/10/2024 8:06 AM [facility] Carbon Dioxide 22 22 - 31 mMol/L 09/10/2024 8:06 AM [facility] Anion Gap 11 5 - 15 mMol/L 09/10/2024 8:06 AM [facility] Calcium 9.5 8.5 - 10.5 mg/dL 09/10/2024 8:06 AM [facility] Protein, Total 7.2 6.1 - 8.0 g/dL 09/10/2024 8:06 AM [facility] Albumin 4.1 3.2 - 5.2 g/dL 09/10/2024 8:06 AM [facility] Aspartate Aminotransferase 20 <=30 unit/L 09/10/2024 8:06 AM [facility] Alanine Aminotransferase 14 0 - 30 unit/L 09/10/2024 8:06 AM [facility] Alkaline Phosphatase 124(H) 35 - 105 unit/L 09/10/2024 8:06 AM [facility] Bilirubin, Total 0.3 <=1.3 mg/dL 09/10/2024 8:06 AM [facility] Est Glomerular Filtration Rate - Female 108 mL/min/1. 73 m?? 09/10/2024 8:06 AM [facility] Comment: This patient's estimated GFR was [...] Fasting Status Yes 09/10/2024 8:[address] [facility] Blood VENOUS BLOOD SPECIMEN / Unknown Venipuncture / Unknown 09/10/2024 7:23 AM EST 09/10/2024 7:24 AM EST Dena Alexander STONECUTTER CHEMISTRY ORDERA BLES [facility] [place] [address] documented in this encounter Visit Diagnoses Diagnosis S/P gastric bypass Bariatric surgery status Intestinal malabsorption, unspecified type Disorder of iron metabolism Other disorders of iron metabolism documented in this encounter Care Teams Nailhead Operator Relationship Specialty Start Date End Date Sonido Cordoba PA [address] [place] [address] PCP - General Family Medicine 07/06/20 documented as of this encounter
--- OUTSIDE RECORDS SUMMARY | 2024-10-25 13:22 | XMS_ITS | Encounter Summary ---
Author Organization [facility] [place] [address] Care Team Providers Care Range Master Name Role Phone Sonido Cordoba Primary Care Provider +1- [phone] Encounter Details Date Type Department Care Team [...] Department Care Team ( Contact Info) Description 11/26/2024 8:45 AM EST Appointment [place]trasound [place] [address] DandreJustus Keri [address] [place] [address] 12/31/2024 10:00 AM EST Office [place] [address] Mercy Amanda MD [facility] [address] [place] [address] 04/01/2025 2:00 PM EDT Office Visit Gastroenterology [place] [address] Erum Szymanski MD [facility] [place] [place] [address] documented as of this encounter Goals Goal [...] (would rather have you choose regular bread/ mexican muffin, etc. - whole wheat if possible- [...] on filedocumented in this encounter Care Teams Range Master Relationship Specialty Start Date End Date Sonido Cordoba PA [address] [place] [address] PCP - General Family Medicine 07/06/20 documented as of this encounter
--- OUTSIDE RECORDS SUMMARY | 2024-10-25 13:22 | XMS_ITS | Continuity of Care Document ---
Author Organization [facility] Address [address] [place] [address] Assessment No assessment recorded. 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 Working with [facility]. Requeste d laborato ry testing collecte d today. Problem Code: E66.9; Problem Code Type: ICD-10; Not Available [facility] 3 04:30:53 Posttrau matic stress disorder 08017241 Active 2011 Problem Code: F43.10; Problem Code Type: ICD-10; Not Available [facility] 3 04:30:53 History of infectio us disease 127302023 Active 2012 Problem Code: Z86.19; Problem Code Type: ICD-10; Not Available [facility] 3 04:30:53 Pain of left shoulder joint [id number] 103237 Completed 201408/28/2023 Problem Code: M25.512; Problem Code Type: ICD-10; Not Available [facility] 4 05:37:23 Insomnia 810374479 Active 201507/12/20 16 - Comments only - Guero Ravi PA-C - Supporti ve listenin g provided today. Will arrange for patient to schedule with [facility] for behavior al health supports to address acute stress associat ed with upcoming legal proceedi ngs. Otherwis e to continue on TRAZODON E 50-100mg QHS PRN for sleep. Problem Code: G47.00; Problem Code Type: ICD-10; Not Available [facility] 3 04:30:53 Rodgers' s esophagu s 447957816 Active 201510/28/20 21 - Comments only - Guero Ravi PA-C - Followed [place] [facility] [place] . To continue on PROTONIX 40mg BID as RXd by specialt y service provider . Next EGD due . Problem Code: K22.70; Problem Code Type: ICD-10; Not Available [facility] 3 04:30:53 Diarrhea 33747523 Completed 201508/06/2016 07/31/20 16 - Comments only - Guero Ravi PA-C - Suspect sxs reflecti ve of self-perez iting viral gastroen teritis. In any event, patient without signs to suggest for ongoing infectio us risk. Letter drafted to employer to this effect. Problem Code: R19.7; Problem Code Type: ICD-10; Not Available [facility] 3 04:30:53 Anxiety disorder 706912730 Active 201512/04/19 23 - Comments only - Guero Ravi PA-C - - ANXIETY, PTSD Mood stable on CELEXA 20mg QD and TRAZODON E 50mg QHS PRN. Problem Code: F41.9; Problem Code Type: ICD-10; Not Available [facility] 3 04:30:53 Tension- type headache 800890654 Active 201612/17/19 19 - Comments only - Guero Ravi PA-C - Will refer to Nito Wells for PT/chiro practic treatmen t interven tions Problem Code: G44.209; Problem Code Type: ICD-10; Not Available [facility] 3 04:30:54 General examinat ion of patient Active 201612/04/19 23 - Comments only - Guero Ravi PA-C - PAP collecte d today. Bivalen COVID booster and PCV 20 administ ered today. Mammogra m to be schedule d at [facility] at next availabl e. 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 Problem Code: R60.0; Problem Code Type: ICD-10; Not Available [facility] 3 04:30:54 Rosacea 869534528 Active 201608/19/20 17 - Comments only - uGero Ravi PA-C - To begin RXD METROGEL 1% BID Problem Code: L71.9; Problem Code Type: ICD-10; Not Available [facility] 3 04:30:54 Acute upper respirat ory infectio n 42349810 Completed 201711/30/2017 11/16/19 18 - Comments only [...] J06.9; Problem Code Type: ICD-10; Not Available [facility] 3 04:30:54 Acute sinusiti s 69730070 Completed 201712/18/2017 12/04/19 18 - Comments only - Guero Ravi PA-C - Will treat with RXd AUGMENTI N 875-125m g BID x 7d. F/U PRN. Problem Code: J01.90; Problem Code Type: ICD-10; Not Available [facility] 3 04:30:54 Housing problems Completed 201712/18/2017 12/04/19 18 - Comments only - Guero Ravi PA-C - Supporti ve listenin g provided today. Patient stongly encourag ed to ilya prince with outside counseli ng provider ([facility] services not covered by current insuranc e provider ) for behavior al health supports . Therapy pet note provided as per patient request. Not Available [facility] 3 04:30:54 Diarrhea 56933963 Completed 201702/20/2018 02/07/20 18 - Comments only - Guero Ravi PA-C - Given chronici ty of sxs, will refer [place] [facility] [place] for consider ation for colonosc opy and further treatmen t interven tions (suspect IBS). Problem Code: R19.7; Problem Code Type: ICD-10; Not Available [facility] 3 04:30:54 Plantar fascial fibromat osis 21925859 Completed 201706/07/2018 Problem Code: M72.2; Problem Code Type: ICD-10; Not Available [facility] 3 04:30:55 Chronic sinusiti s 11191605 Completed 201711/09/2018 Problem Code: J32.9; Problem Code Type: ICD-10; Not Available [facility] 3 04:30:55 Infectio n caused by Helicoba cter pylori 949634444 Active 2018 Problem Code: B96.81; Problem Code Type: ICD-10; Not Available [facility] 3 04:30:55 Plantar fascial fibromat osis 03507250 Completed 201812/31/2018 12/17/19 19 - Comments only - Guero Ravi PA-C - As per patient request, will refer to [facility] [place] for consider ation towards more CORTISON E injectio n Problem Code: M72.2; Problem Code Type: ICD-10; Not Available [facility] 3 04:30:55 Enthesop athy 99657173 Completed 201908/28/2023 Problem Code: M77.8; Problem Code Type: ICD-10; Not Available [facility] 4 05:37:22 Benign neoplasm of skin 86804091 Completed 201908/28/2023 Problem Code: D23.9; Problem Code Type: ICD-10; Not Available [facility] 4 05:37:22 Herpes zoster 9593230 Completed 201908/28/2023 Problem Code: B02.9; Problem Code Type: ICD-10; Not Available [facility] 4 05:37:23 Dog bite Completed 201905/04/2020 04/20/20 20 - Comments only - Guero Ravi PA-C - Wound appears to be healing well. Excused from work duties through 04/22/20. To continue on AUGMENTI N as RXD by ARACELY Lau/[place] PRN. Not Available [facility] 3 04:30:56 Foot pain 10013086 Completed 201906/28/2020 06/14/20 20 - Comments only - Guero Ravi PA-C - Suggeste d patient explore more supporti ve footwear and/or blister proof socks if she intends to continue with walking activiti es. Will refer to podiatry to assess for custom orthotic s. Problem Code: M79.673; Problem Code Type: ICD-10; Not Available [facility] 3 04:30:56 Peroneal tendinit is of right lower limb [id number] 9109 Completed 201908/28/2023 Problem Code: M76.71; Problem Code Type: ICD-10; Not Available [facility] 4 05:37:24 Pre-surg he evaluati on Completed 201908/03/2020 07/20/20 20 - Comments only - Guero Ravi PA-C - In-offic e EKG shows NSR @ XXbpm. Assuming benign findings with today's laborato ry testing, medicall y cleared for surgery as schedule d. Problem Code: Z01.818; Problem Code Type: ICD-10; Not Available [facility] 3 04:30:56 Bradycar nancy 48578159 Completed 201908/28/2023 Problem Code: R00.1; Problem Code Type: ICD-10; Not Available [facility] 4 05:37:22 Gastroes ophageal reflux disease without esophagi tis 504645583 Active 201912/04/19 23 - Comments only - Guero Ravi PA-C - - RODGERS' S ESOPHAGU S [place] [facility] [place] . To continue on PROTONIX 40mg BID as RXd by specialt y service provider . Next EGD due 2023-. Problem Code: K21.9; Problem Code Type: ICD-10; Not Available [facility] 3 04:30:56 Pain in left lower limb 587693175 Active 201910/30/20 22 - Comments only - [...] M79.605; Problem Code Type: ICD-10; Not Available [facility] 3 04:30:56 Non-scar ring alopecia 354517848 Completed 202008/28/2023 Problem Code: L65.9; Problem Code Type: ICD-10; Not Available [facility] 4 05:37:21 Pain in right hand 00256039180 9109 Completed 202008/28/2023 Problem Code: M79.641; Problem Code Type: ICD-10; Not Available [facility] 4 05:37:21 Pain of toe of left foot 93015362872 9108 Completed 202105/21/2022 05/18/20 22 - Comments [...] M79.675; Problem Code Type: ICD-10; Not Available [facility] 3 04:30:57 COVID-19 861699285 Active 2021 Problem Code: U07.1; Problem Code Type: ICD-10; Not Available [facility] 3 04:30:57 Screenin g mammogra phy Active 2022 Problem Code: Z12.31; Problem Code Type: ICD-10; Not Available [facility] 3 04:30:57 Steatosi s of liver 133263655 Active 202212/04/19 23 - Comments only - Guero Ravi PA-C - CMP and CBC collecte d today as monitori ng. Problem Code: K76.0; Problem Code Type: ICD-10; Not Available [facility] 3 04:30:57 Screenin g for malignan t neoplasm of colon Active 2022 Problem Code: Z12.11; Problem Code Type: ICD-10; Not Available [facility] 3 04:30:58 Neck pain 42467650 Active 2022 Problem Code: M54.2; Problem Code Type: ICD-10; Not Available [facility] 3 04:30:58 Major depressi on, single episode 21944200 Active 200904/26/20 21 - Comments only - Guero Ravi PA-C - Stable on CELEXA 30mg QD +/- TRAZODON E PRN for sleep Problem Code: F32.9; Problem Code Type: ICD-10; Not Available [facility] 3 04:30:58 Screenin g for cardiova scular system disease Completed 201408/19/2017 Problem Code: Z13.6; Problem Code Type: ICD-10; Not Available [facility] 3 04:30:58 Chronic maxillar y sinusiti s 81224744 Completed 201710/15/2018 Problem Code: J32.0; Problem Code Type: ICD-10; Not Available [facility] 3 04:30:58 Tubal ligation done 42319210105 108 Completed 201108/01/2023 Not Available [facility] 3 04:30:58 Shoulder joint pain 228945934 Completed 201408/01/2023 07/26/20 15 - Comments only - Guero Ravi PA-C - Patient to f/u with [facility] [place] for evaluati on as schedule d. Problem Code: 719.41; Problem Code Type: ICD-9; Not Available [facility] 3 04:30:59 Elevated blood-pr essure reading without diagnosi s of hyperten khoi 171575614 Completed 201608/19/2017 Problem Code: R03.0; Problem Code Type: ICD-10; Not Available [facility] 3 04:30:59 Dysphagi a 79088754 Completed 201409/24/2016 Problem Code: R13.10; Problem Code Type: ICD-10; Not Available [facility] 3 04:30:59 Chronic rhinitis 07442154 Completed 201504/21/2016 Problem Code: J31.0; Problem Code Type: ICD-10; Not Available [facility] 3 04:30:59 Pelvic and perineal pain 129678641 Completed 201907/20/2020 Problem Code: R10.2; Problem Code Type: ICD-10; Not Available [facility] 3 04:30:59 Abdomina l pain 81567811 Completed 201404/21/2016 Problem Code: R10.9; Problem Code Type: ICD-10; Not Available [facility] 3 04:31:00 Acute pharyngi tis 902359779 Completed 201812/15/2019 Problem Code: J02.9; Problem Code Type: ICD-10; Not Available [facility] 3 04:31:00 Urinary tract infectio us disease 68242420 Completed 201708/01/2023 Problem Code: N39.0; Problem Code Type: ICD-10; Not Available [facility] 3 04:31:00 Pain in right lower limb 493272865 Completed 201608/19/2017 Problem Code: M79.604; Problem Code Type: ICD-10; Not Available [facility] 3 04:31:00 Acute upper respirat ory infectio n 54967211 Completed 201508/19/2017 Problem Code: J06.9; Problem Code Type: ICD-10; Not Available [facility] 3 04:31:00 Increase d frequenc y of urinatio n 785789352 Completed 201907/20/2020 Problem Code: R35.0; Problem Code Type: ICD-10; Not Available [facility] 3 04:31:01 Migraine 91670253 Completed 201608/01/2023 Problem Code: G43.909; Problem Code Type: ICD-10; Not Available [facility] 3 04:31:01 Arthralg ia of the ankle and/or foot 725340685 Completed 201610/15/2018 Problem Code: M25.572; Problem Code Type: ICD-10; Not Available [facility] 3 04:31:01 Depressi ve disorder 42074840 Completed 200908/01/2023 Not Available [facility] 3 04:31:01 Human papillom avirus negative squamous cell carcinom a Completed 201108/01/2023 Not Available [facility] 3 04:31:01 Fever 741620659 Completed 201509/24/2016 Problem Code: R50.9; Problem Code Type: ICD-10; Not Available [facility] 3 04:31:02 Fatigue 45913227 Completed 201509/24/2016 Problem Code: R53.83; Problem Code Type: ICD-10; Not Available [facility] 3 04:31:02 Dysuria 45438176 Completed 201710/15/2018 Problem Code: R30.0; Problem Code Type: ICD-10; Not Available [facility] 3 04:31:02 Posttrau matic stress disorder 57446875 Completed 201008/01/2023 Not Available [facility] 3 04:31:02 Lumbosac ral radiculo craig 7877185 Completed 201408/01/2023 02/07/20 16 - Comments only - Guero Ravi PA-C - Given lack of improvem ent with [facility] tried PT guided rehab, will initiate refer to [facility] for consider ation towards interven tional treatmen ts. In the interim, to increase NEURONTI N to 100mg QAM and 600mg QHS. Problem Code: M54.16; Problem Code Type: ICD-10; Not Available [facility] 3 04:31:03 Plantar fascial fibromat osis 70583098 Completed 201511/07/2016 Problem Code: M72.2; Problem Code Type: ICD-10; Not Available [facility] 3 04:31:03 Screenin g for malignan t neoplasm of cervix Completed 201107/20/2020 Problem Code: Z12.4; Problem Code Type: ICD-10; Not Available [facility] 3 04:31:03 Burn 430815255 Completed 201511/10/2016 Problem Code: T30.0; Problem Code Type: ICD-10; Not Available [facility] 3 04:31:04 Pain in right foot 02301784356 9107 Active [address], [place], [address] , [facility] 3 13:59:23 Contact dermatit is 04362905 Completed 202208/28/2023 Problem Code: L25.9; Problem Code Type: ICD-10; Not Available [facility] 4 05:37:22 Pain in left lower limb 019305901 Completed 201408/28/2023 Problem Code: M79.605; Problem Code Type: ICD-10; Not Available [facility] 4 05:37:23 Pruritic rash 96607015 Active 2023 GEMA WAN PA-C [address], [place], [address] [facility] 4 11:12:18 Notes:*Problem Name: + Lyme Titer *ICD-10 Codes: *Problem Status: inactive *Comments: *Note Date: 09/02/2013 *Problem Name: Ptsd--reactivation *ICD-10 Codes: *Problem Status: inactive *Comments: *Note Date: 02/11/2012 Problem Notes None recorded. Procedures Surgical History Date Name Laterality Status Provider Name and Address Organization Details Recorded Time 024 Chandler-en-Y gastrojejunostomy completed GUERO RAVI PA-C [address], [place], [address], [facility] 06/09/2024 05:45:19 023 Date of Last Colonoscopy completed ASHUTOSH HAWTHORNE MA [facility] 12/03/2023 09:00:45 023 Most Recent Mammogram completed ASHUTOSH HAWTHORNE MA [facility] 12/03/2023 09:00:06 023 Date of Last Mammogram completed ASHUTOSH HAWTHORNE MA [facility] 12/03/2023 09:00:12 023 Date of Last Pap Smear completed ASHUTOSH HAWTHORNE MA [facility] 12/03/2023 08:59:13 Imaging Results None recorded. Procedure Notes None recorded. Medical Equipment None Reported. Allergies Allergen ID Allergen Name Allergen Category Reaction Reaction Severity Criticality Documentation Date Start Date Code Code System Note Provider Name and Address Organization Details Recorded Time 54030 Poison Indu medicatio n Not available Not available Not available 09/14/20232016 Aller gyNam e: 'POIS ON INDU'; Not Available [facility] 3 16:22:08 28569 oxycodone hydrochlo ride medicatio n vomiting Not available [facility] 09/14/20232011 [address], [facility] [address] , [facility] 4 15:53:22 22795 diclofena c medicatio n other moderate Not available 09/14/20232019 3355 RxNorm GI UPSET Aller gyRea ction : 'GI UPSET '; Not Available [facility] 3 16:22:09 67064 ketchup food Not available Not available Not available 03/13/[address] [facility], [facility] 4 10:15:08 95982 ibuprofen medicatio n Not available Not available Not available 03/13/2024 5640 RxNorm avoid s due [place] tt's esoph afsaneh [address], [place], [address] , [facility] 4 15:53:05 87147 fish derived food,medi cation other Not available Not available 10/16/2024 conac t with skin cause s [place] ; does not eat [address], [place], [address] , [facility] 4 15:55:04 Medications Name Sig Start Date Stop Date Status Note LastModified by Organization Details LastModified Time metformin 500 mg tablet 500mg-4 PO QD 12/04 completed [facility] Not [...] BEFORE MEALS AND HS PRN 01/21 completed [facility] Not [...] Smoking Status Never Smoker Tammy Corbett MA null, [place] - [facility]. 09/21/2023 12:51:10 What Is Your Level Of Alcohol Consumption? None [email or web address] Information not available 09/21/2023 Would You Say [...] Use Any Illicit Or Recreational Drugs? No [email or web address] Information not available 09/21/2023 Has Tobacco Cessation [...] Family history of premature coronary heart disease tal.[email or web address] Not available 2022 03:54:38 Mother Family history of Hypertension [email or web address] Not available 08/2023 03:54:38 Mother Family history [...] less than 55 years of age FATAL [place] @ 36Y/O Not available 09/14/2023 03:54:39 Maternal [...] Recorded Time MMR 6 completed Not Available [facility] 09/14/2023 05:02:42 MMR 6 completed Not Available [facility] 09/14/2023 05:02:42 Td (adult), 5 Lf tetanus toxoid, preservative free, adsorbed 6 completed Not Available [facility] 09/14/2023 05:02:42 Tdap 8 completed Not Available [facility] 09/14/2023 05:02:43 Influenza, split virus, trivalent, preservative 5 completed Not Available [facility] 09/14/2023 05:02:43 Influenza, split virus, trivalent, preservative 6 completed Not Available [facility] 09/14/2023 05:02:43 Influenza, split virus, quadrivalent, PF 0 completed Not Available [facility] 09/14/2023 05:02:43 Influenza, split virus, quadrivalent, PF 1 completed Not Available [facility] 09/14/2023 05:02:43 Influenza, split virus, quadrivalent, PF 9 completed Not Available [facility] 09/14/2023 05:02:44 Influenza, split virus, quadrivalent, preservative 7 completed Not Available [facility] 09/14/2023 05:02:44 Influenza, split virus, quadrivalent, preservative 8 completed Not Available [facility] 09/14/2023 05:02:44 COVID-19, mRNA, LNP-S, PF, 100 mcg/0.5mL dose or 50 mcg/0.25mL dose 1 completed Not Available [facility] 09/14/2023 05:02:44 COVID-19, mRNA, LNP-S, PF, 100 mcg/0.5mL dose or 50 mcg/0.25mL dose 1 completed Not Available [facility] 09/14/2023 05:02:44 COVID-19, mRNA, LNP-S, PF, 100 mcg/0.5mL dose or 50 mcg/0.25mL dose 1 completed Not Available [facility] 09/14/2023 05:02:44 Pneumococcal conjugate PCV20, polysaccharide [id number] conjugate, adjuvant, PF 3 completed Not Available [facility] 09/14/2023 05:02:45 COVID-19, mRNA, LNP-S, bivalent, PF, 30 mcg/0.3 mL dose 3 completed Not Available [facility] 09/14/2023 05:02:45 Hep B, adult 7 completed Not Available [facility] 09/14/2023 05:02:45 Hep B, unspecified formulation 6 completed Not Available [facility] 09/14/2023 05:02:45 Hep B, unspecified formulation 6 completed Not Available [facility] 09/14/2023 05:02:46 influenza, unspecified formulation 3 completed Not Available [facility] 09/14/2023 05:02:46 COVID-19, mRNA, LNP-S, PF, jae-sucrose, 30 mcg/0.3 mL 4 completed Lea bowers [facility] 08/21/2024 15:47:44 Influenza, split virus, trivalent, PF 4 completed Lea bowers, [facility] 08/21/2024 15:47:44 COVID-19, mRNA, LNP-S, PF, jae-sucrose, 30 mcg/0.3 mL 3 completed Not Available [facility] 11/16/2023 05:33:21 Past Encounters Encounter ID Performer Location Encounter Start Date Encounter Closed Date Diagnosis/Indication Diagnosis SNOMED-CT Code Diagnosis ICD10 Code [id number] Lea Foley [address] [address] 08/21/2024 15:28:41 08/21/2024 15:53:15 Active or passive immunization [id number] Z23 Health Concerns Section Related Observation LastModified by Organization Detai ls LastModified Time None Recorded Concern Status LastModified by Organization Details LastModified Time None Recorded Payers Encounter Date Sequence Insurance Name Policy Number Policy Walsh Covered Member ID Walsh Member ID Guarantor Name 08/21/[address] [facility] (MEDICAID) Vianney Meeks [id number] Vianney Meeks OBGyn Episode No OBEpisode recorded.
--- OUTSIDE RECORDS SUMMARY | 2024-10-25 13:22 | XMS_ITS | Encounter Summary ---
Author Organization [facility] [place] [address] Care Team Providers Care Private Advisor Name Role Phone Sonido Cordoba Primary Care Provider +1- [phone] Reason for Visit * Reason Comments Establish Care LEFT THUMB TRIGGER F MARIA R * Consultation (Routine) - Authorized Specialty Diagnoses / Procedures Referred By Aric madrigal Referred To Contact Orthopaedics Diagnoses Trigger thumb, left thumb Sonido Cordoba PA [address] [place] [address] [facility] [address] [place] [phone] Referral ID Status Reason Start Date Expiration Date Visits Requested Visits Authorized [id number] Authorized Consult, Test & Treat PCP Updated and/or Approved 06/09/2024 12/10/2024 6 6 Encounter Details Date Type Department Care Team (Late st Contact Info) Description 07/18/2024 4:00 PM EDT Office [place] [address] Bruna Badillo PA [facility] [place] [address] Trigger finger of left thumb [...] NAME: Vianney Cordero AGE: 48 y.o. MR#: [id number] DATE OF VISIT: 07/18/2024 DATE OF INJURY/ONSET: [...] 3.66) performed by Erum Szymanski MD at [facility] ENDOSCOPY PRO COLONOSCOPY, BIOPSY N/A 09/04/2019 COLONOSCOPY FLEXIBLE, WITH BX (WRVU 3.66) performed by Steve Ji MD at [facility] ENDOSCOPY PRO COLONOSCOPY, DIAGNOSTIC N/A 09/04/2019 COLONOSCOPY, DIAGNOSTIC performed by Steve Ji MD at [facility] ENDOSCOPY PRO COLONOSCOPY, DIAGNOSTIC N/A 06/01/2023 COLONOSCOPY,SCREENING (WRVU 3.26) performed by Steve Ji MD at [facility] ENDOSCOPY PRO COLONOSCOPY, REMV LESN, SNARE N/A 08/21/2018 COLONOSCOPY, POLYPECTOMY, REMOVAL LESION BY SNARE (WRVU 4.67) performed by Erum Szymanski MD at [facility] ENDOSCOPY PRO CYSTO W URETEROSCOPY &/OR PYELOSCOPY, DX Right 06/01/2015 CYSTOURETEROSCOPY, DIAGNOSTIC performed by Darius Nuñez Jr., MD at [facility] OR PRO CYSTOSCOPY, INSERT URETERAL STENT Right 06/01/2015 CYSTO, STENT PLACEMENT performed by Darius Nuñez Jr., MD at [facility] MAIN OR PRO LAP GASTRIC BYPASS/ELVIE-EN-Y N/A 05/29/2024 @LAPAROSCOPIC GASTROPLASTY W/ ELVIE-EN-Y CONSTRUCTION (WRVU 29.4) performed by Chrystal Damon MD at [facility] MAIN OR PRO LAPAROSCOPY SURG ESOPHAGOGASTRIC FUNDOPLASTY N/A 04/05/2015 LAPAROSCOPIC TYESHA FUNDOPLASTY performed by Valentín Moura MD at [facility] MAIN OR PRO PERCUT DILATN RENAL TRACT Right 06/01/2015 PERCUTANEOUS INTRO GUIDE WIRE TO ACCESS RENAL PELVIS,AND OR URETER, W\DILATION performed by Darius Nuñez Jr., MD at [facility] MAIN OR PRO PERQ NL/PL LITHOTRIPSY SIMPLE UP TO 2 CM 1 LOCATION Right 06/01/2015 NEPHROLITHOTOMY, ([facility]NL) PERCUTANEOUS performed by Darius Nuñez Jr., MD at [facility] MAIN OR PRO REPAIR PERONEAL TENDONS Right 08/12/2020 PERONEAL TENDON REPAIR (WRVU 7.35) performed by Mani Jefferson MD at [facility] OSC PRO UNLISTED LAPAROSCOPIC PROCEDURE ESOPHAGUS N/A 05/29/2024 LAPAROSCOPIC TAKEDOWN PREVIOUS TYESHA (WRVU 48.75) performed by Chrystal Damon MD at [facility] DONALD PRO UPPER GI ENDOSCOPY, BIOPSY N/A 01/27/2015 EGD WITH BIOPSY performed by Brandt Barlow MD at [facility] ENDOSCOPY PRO UPPER GI ENDOSCOPY, BIOPSY N/A 02/28/2016 EGD WITH BIOPSY performed by Brandt Barlow MD at [facility] ENDOSCOPY PRO UPPER GI ENDOSCOPY, BIOPSY N/A 09/04/2016 EGD WITH BIOPSY performed by Brandt Barlow MD at [facility] ENDOSCOPY PRO UPPER GI ENDOSCOPY, BIOPSY N/A 09/24/2017 EGD WITH BIOPSY (WRVU 2.49) performed by Brandt Barlow MD at [facility] ENDOSCOPY PRO UPPER GI ENDOSCOPY, BIOPSY N/A 08/21/2018 EGD WITH BIOPSY (WRVU 2.49) performed by Erum Szymanski MD at [facility] ENDOSCOPY PRO UPPER GI ENDOSCOPY, BIOPSY N/A 09/04/2019 UPPER GASTROINTESTINAL ENDOSCOPY,WITH BIOPSY SINGLE OR MULTIPLE (WRVU 2.49) performed by Steve Ji MD at [facility] END[facility]COPY PRO UPPER GI ENDOSCOPY, BIOPSY N/A 05/24/2021 EGD WITH BIOPSY (WRVU 2.49) performed by Kathy Carnes MD at [facility] ENDOSCOPY PRO UPPER GI ENDOSCOPY, BIOPSY N/A 06/01/2023 EGD WITH BIOPSY (WRVU 2.39) performed by Steve Ji MD at [facility] ENDOSCOPY PRO UPPER GI ENDOSCOPY, DIAGNOSTIC N/A 09/04/2019 EGD, UPPER GI ENDOSCOPY performed by Steve Ji MD at [facility] ENDOSCOPY PRO UPPER GI ENDOSCOPY, DIAGNOSTIC N/A 05/29/2024 EGD, UPPER GI ENDOSCOPY (WRVU 2.09) performed by Chrystal Damon MD at [facility] MAIN OR TONSILLECTOMY FAMILY HX: Family History [...] activity: Yes Partners: Male control/protection: Surgical Activities: [facility] ROS: Constitutional: Denies fevers, chills Respiratory: Denies [...] less than $25,000 # People Supported 2 Swazi, , No, not Swazi// Race White Health Literacy Extremely Currently working Yes Current job situation Full-time 01/04/2018 [employer] Response ASES VAS-LEFT 7 ASES ADL-LEFT ARM [...] concerns. Bruna Badillo PA-C Department of Orthopaedics [facility] documented in this encounter Plan of Treatment Upcoming Encounters Date Type Department Care Team (Late st Contact Info) Description 11/26/2024 8:45 AM EST [place]ointment [place] [address] Keri Avila [address] [place] [address] 12/31/2024 10:00 AM EST Office [place] [address] Mercy Amanda MD [facility] [address] [place] [address] 04/01/2025 2:00 PM EDT Office [place] [address] Erum Szymanski MD [facility] [place] [address] documented as of this encounter Goals Goal [...] (would rather have you choose regular bread/ turkish muffin, etc. - whole wheat if possible- [...] thumb documented in this encounter Care Teams Private Advisor Relationship Specialty Start Date End Date Sonido Cordoba PA [address] [place] [address] PCP - General Family Medicine 07/06/20 documented as of this encounter
--- OUTSIDE RECORDS SUMMARY | 2024-10-25 13:22 | XMS_ITS | Clinical Summary ---
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 [address] [facility] [address] 04/01/2025 2:00 PM EDT Office [place] [phone] Ermu Szymanski MD [facility] [place] [address] Health Maintenance Due Date Last Done Comments CT Colonography 1976 FIT DNA 1976 FIT 1976 Sigmoidoscopy 1976 HIV screen 1994 Hepatitis C Screening 1994 Tetanus/Diphtheria/Pertussis Vaccines (1 - Tdap) 1995 HPV test 2006 PAP Smear 2006 Breast Cancer Share Decision Needed 2016 Breast Cancer screening 2016 Covid-19 Vaccine ( - 2023-2 5 season) 2024 08/28/2023, 12/01/2022, 10/21/2021 Influenza [...] a priority: - Eggs - Cheese - Tunisian yogurt / cottage cheese - meat - fish - nuts/seeds - protein shake or bar Start with the protein, can choose to add other foods (would rather have you choose regular bread/ swiss muffin, etc. - whole wheat if possible- [...] more details Medical Devices Implanted Type Area Art Psychotherapist Device Identifier Shelf Expiration Date Model / Serial / Lot Stent,Contour -[id number] cm ([id number]) - S. Implanted:Qty : 1 on 06/01/2015 by Darius Nuñez Jr., MD at [facility] IMPLANTS Right: Ureter DO NOT USE naaptol - [id number] 12/05/2017 [id number] / . / [id number] Procedures Procedure Name Priority Date/Time Associated Diagnosis Comments ORDS - PROVIDER CARE SCAN 10/17/2024 12:00 AM EST COMPREHENSIVE METABOLIC PANEL Routine 09/10/2024 7:23 AM [...] Recently Relevant to Health Maintenance Results * Scan Doc: Ords - Provider Care (10/17/2024 12:00 AM EST) Narrative 10/17/2024 12:00 AM EST Ordered by an unspecified provider. Scanning Provider MEDIA MGR SCAN EXT O RDR/RSLT * PTH (09/10/2024 7:23 AM EST) Pathologist [facility] Parathyroid Hormone 64 15 - 65 pg/mL 09/10/2024 8:00 AM [facility] Blood VENOUS BLOOD SPECIMEN / Unknown Venipuncture / Unknown 09/10/2024 7:23 AM EST 09/10/2024 7:24 AM EST Dena Alexander WRITER EDITOR CHEMISTRY ORDERA BLES Performing Organization Address City/State/[facility] Co de Phone Number [facility] [place] [address] * Hemogram (09/10/2024 7:23 AM EST) Pathologist [facility] White Blood Cell 7.38 4.00 - 9.50 x10(3)/mcL 09/10/2024 7:44 AM [facility] Red Blood Cell 4.44 4.00 - 5.21 x10(6)/mcL 09/10/2024 7:44 AM [facility] Hemoglobin 13.1 11.7 - 15.5 g/dL 09/10/2024 7:44 AM [facility] Hematocrit 39.2 35.7 - 45.8 % 09/10/2024 7:44 AM [facility] Mean Cell Volume 88.3 82.6 - 94.4 fL 09/10/2024 7:44 AM [facility] Mean Cell Hemoglobin 29.5 27.1 - 32.0 pg 09/10/2024 7:44 AM [facility] Mean Cell Hemoglobin Concentration 33.4 31.7 - 35.0 g/dL 09/10/2024 7:44 AM [facility] Platelet 261 145 - 357 x10(3)/mcL 09/10/2024 7:44 AM EST [facility] Mean Platelet Volume 10.8 7.6 - 12.9 fL 09/10/2024 7:44 AM EST [facility] RDW Standard Deviation 39.2 37.0 - 46.0 fL 09/10/2024 7:44 AM [facility] RDW coefficient of variation 12.1 11.5 - 14.1 % 09/10/2024 7:44 AM [facility] NRBC% auto 0.0 % 09/10/2024 7:44 AM [facility] NRBC Absolute <0.01 <0.01 x10(3)/mcL 09/10/2024 7:44 AM [facility] Blood VENOUS BLOOD SPECIMEN / Unknown Venipuncture / Unknown 09/10/2024 7:23 AM EST 09/10/2024 7:24 AM EST Dena Alexander APRN HEMATOLOGY ORDER SUGAR [facility] [place] [address] * Vitamin B1, whole blood (09/10/2024 7:23 AM EST) [facility] Vit B1 Lvl Wb March 135 70 - 180 nmol/L 09/13/2024 3:13 PM EST REF LAB [place] Comment: ADDITIONAL INFORMATION This test was developed and its performance characteristics determined by [facility] in a manner consistent with CLIA requirements. This test has not been cleared or approved by the U.S. Food and Drug Administration. Blood VENOUS BLOOD SPECIMEN / Unknown Venipuncture / Unknown 09/10/2024 7:23 AM EST 09/10/2024 7:24 AM EST Narrative REF LAB [facility] 09/13/2024 3:13 PM EST Test Performed by: [facility] [address] [place] [address] Chain Tender: Toshia Enriquez Ph.D.; CLIA# [id number] Dena Alexander APRN LAB SEND OUT ORD ERABLES REF LAB [place] [address] [place] [address], [facility] * Iron and TIBC (09/10/2024 7:23 AM EST) Pathologist [facility] Iron 92 30 - 150 mcg/dL 09/10/2024 8:06 AM [facility] TIBC 316 250 - 450 mcg/dL 09/10/2024 8:06 AM [facility] Iron Saturation 29 20 - 50 % 8:06 AM [facility] Blood VENOUS BLOOD SPECIMEN / Unknown Venipuncture / Unknown 09/10/2024 7:23 AM EST 09/10/2024 7:24 AM EST Dena Alexander APRN CHEMISTRY ORDERA BLES Performing Organization Address City/[facility]/ZIP Co de Phone Number [facility] [place] [address] * Vitamin D, 25-Hydroxy (09/10/2024 7:23 AM EST) Pathologist [facility] Vitamin D Total 25 OH 29 21 - 100 ng/ml 09/10/2024 8:19 AM EST [facility] Vitamin D Total 25 OH Interp Insufficient 09/10/2024 8:19 AM EST [facility] Blood VENOUS BLOOD SPECIMEN / Unknown Venipuncture / Unknown 09/10/2024 7:23 AM EST 09/10/2024 7:24 AM EST Dena Alexander APRN CHEMISTRY ORDERA BLES Performing Organization Address City/[facility]/ZIP Co de Phone Number [facility] [place] [address] * Folate, serum (09/10/2024 7:23 AM EST) Folate 7.6 4.8 - 24.2 ng/ml 09/10/2024 8:19 AM EST [facility] Blood VENOUS BLOOD SPECIMEN / Unknown Venipuncture / Unknown 09/10/2024 7:23 AM EST 09/10/2024 7:24 AM EST Dena Alexander APRN CHEMISTRY ORDERA BLES Performing Organization Address City/[facility]/ZIP Co de Phone Number [facility] [place] [address] * Ferritin (09/10/2024 7:23 AM EST) Pathologist [facility] Ferritin 157 6 - 175 ng/ml 09/10/2024 8:19 AM EST [facility] Blood VENOUS BLOOD SPECIMEN / Unknown Venipuncture / Unknown 09/10/2024 7:23 AM EST 09/10/2024 7:24 AM EST Dena Alexander APRN CHEMISTRY ORDERA BLES Performing Organization Address City/[facility]/ZIP Co de Phone Number [facility] [place] [address] * Vitamin B12 (09/10/2024 7:23 AM EST) Pathologist [facility] Vitamin B12 571 232 - 1,245 pg/mL 09/10/2024 10:56 AM EST [facility] Blood VENOUS BLOOD SPECIMEN / Unknown Venipuncture / Unknown 09/10/2024 7:23 AM EST 09/10/2024 7:24 AM EST Dena Alexander APRN CHEMISTRY ORDERA BLES Performing Organization Address City/[facility]/ZIP Co de Phone Number [facility] [place] [address] * (ABNORMAL) Comprehensive metabolic panel (09/10/2024 7:23 AM EST) Pathologist [facility] Glucose 93 65 - 99 mg/dL 09/10/2024 8:06 AM [facility] Comment: Fasting Glucose Interpretive Criteria: [...] 8 - 18 mg/dL 09/10/2024 8:06 AM [facility] Creatinine 0.70 0.70 - 1.20 mg/dL 09/10/2024 8:06 AM [facility] Sodium 141 135 - 145 mMol/L 09/10/2024 8:06 AM [facility] Potassium 3.9 3.5 - 5.0 mMol/L 09/10/2024 8:06 AM [facility] Chloride 108(H) 98 - 107 mMol/L 09/10/2024 8:06 AM [facility] Carbon Dioxide 22 22 - 31 mMol/L 09/10/2024 8:06 AM [facility] Anion Gap 11 5 - 15 mMol/L 09/10/2024 8:06 AM [facility] Calcium 9.5 8.5 - 10.5 mg/dL 09/10/2024 8:06 AM [facility] Protein, Total 7.2 6.1 - 8.0 g/dL 09/10/2024 8:06 AM [facility] Albumin 4.1 3.2 - 5.2 g/dL 09/10/2024 8:06 AM [facility] Aspartate Aminotransferase 20 <=30 unit/L 09/10/2024 8:06 AM [facility] Alanine Aminotransferase 14 0 - 30 unit/L 09/10/2024 8:06 AM [facility] Alkaline Phosphatase 124(H) 35 - 105 unit/L 09/10/2024 8:06 AM [facility] Bilirubin, Total 0.3 <=1.3 mg/dL 09/10/2024 8:06 AM EST [facility] Est Glomerular Filtration Rate - Female 108 mL/min/1. 73 m?? 09/10/2024 8:06 AM [facility] Comment: This patient's estimated GFR [...] Foundation Fasting Status Yes 09/10/2024 8:06 AM [facility] Blood VENOUS BLOOD SPECIMEN / Unknown Venipuncture / Unknown 09/10/2024 7:23 AM EST 09/10/2024 7:24 AM EST Dena Alexander APRN CHEMISTRY ORDERA [facility] [place] [address] * Lipid Panel (Reflex Direct LDL) (11/07/2023 7:47 AM EST) Cholesterol, Total 218 mg/dL [facility] Comment: Lower Risk: <200 mg/dL Average Risk: 200-239 mg/dL Higher Risk: >ww=467 mg/dL Triglyceride 265 mg/dL [facility] Comment: Average Risk/Lower Risk: <150 mg/dL Borderline High Risk: 150-199 mg/dL High Risk: 200-499 mg/dL Very High Risk: >nz=877 mg/dL HDL Cholesterol 40 mg/dL [facility] Comment: Males: ?? Higher Risk: <40 mg/dL Females: ?? Higher Risk: <50 mg/dL LDL Cholesterol 125 mg/dL [facility] Comment: Lowest Risk: <100 mg/dL Lower Risk: 100-129 mg/dL Borderline High Risk: 130-159 mg/dL High Risk: 160-189 mg/dL Very High Risk: >nd=959 mg/dL Cholesterol/HDL Ratio 5.4 ratio [facility] Lipid Interpretation See Note [facility] Comment: Lipid management should be guided by a patient? s ASCVD risk, goals and preferences. ACC/AHA Guidelines recommend high intensity statin if clinical ASCVD or LDL greater than or equal to 190 mg/dL. http://Looker.com/NBW-FJM-Hyazdsecr Adults aged 40-75 with LDL 70-189 mg/dL should have their 10 year ASCVD risk estimated with the ACC/AHA ASCVD risk outside maintenance worker http://tools.acc.org/JNNVK-Heor-Ukolhepmy/ Statin should be discussed if risk greater [...] Lab Mercy Amanda MD CHEMISTRY GLORIA LAURA [facility] [address] * COLONOSCOPY (06/01/2023 11:20 AM EDT) COLONOSCOPY [facility] Endoscopy Procedure Date: 06/01/2023 11:20 AM ? Patient Name: Vianney Cordero ? Date of : 1975 ? Age: 47 ? Order #: [id number] ? Instrument Name: [id number] ? Procedure: ? Colonoscopy Indications: ? High [...] preparation was evaluated ? using the BBPS ([place] Bowel ? Preparation Scale) with scores of: [...] Documents on File Type Date Recorded Patient Radiology Physician Assistant Expl anation Personal Radiology Physician Assistant 07/07/2020 9:04 AM KD Personal Radiology Physician Assistant 07/07/2020 9:04 AM KD * Attempt Cardiopulmonary [...] is based on Patient wishes. Care Teams Cylinder Inspector And Tester Relationship Specialty Start Date End Date Sonido Cordoba PA [address] [place] [address] PCP - General Family Medicine 07/06/20
--- OUTSIDE RECORDS SUMMARY | 2024-10-25 13:22 | XMS_ITS | Encounter Summary ---
Author Organization [facility] [place] [address] Care Team Providers Care Ship Erector Name Role Phone Sonido Cordoba Primary Care Provider +1- [phone] Reason for Visit * Reason Onset Date Comments Bumped Appointment 07/09/2024 Encounter Details Date Type Department Care Team (Late st Contact Info) Description 07/09/2024 Telephone [place] [phone] Hill Badillo PA [facility] [place] [address] Bumped Appointment Social History Tobacco Use Types Packs/Day Years Used Date Smoking Tobacco: Former Cigarettes 0.5 6 0 01/25/1991 - 01/25/1997 Smokeless Tobacco: Never Alcohol Use Standard Drinks/Week Comments Not Currently 0 (1 standard drink = 0.6 oz pur e alcohol) 1X/quarter [facility] Inpatient Questions Answer Date Recorded Does [...] 11/26/2024 8:45 AM EST Appointment [place] [phone] Keri Avila [address] [place] [address] 12/31/2024 10:00 AM EST Office [place] [phone] Mercy Amanda MD [facility] [place] [address] 04/01/2025 2:00 PM EDT Office Visit Gastroenterology at [facility] [place] [address] Erum Szymanski MD [facility] [place] [address] documented as of this encounter Goals Goal [...] (would rather have you choose regular bread/ haitian muffin, etc. - whole wheat if possible- [...] on filedocumented in this encounter Care Teams Ship Erector Relationship Specialty Start Date End Date Sonido Cordoba PA [address] [place] [address] PCP - General Family Medicine 07/06/20 documented as of this encounter
--- OUTSIDE RECORDS SUMMARY | 2024-10-25 13:22 | XMS_ITS | Encounter Summary ---
Author Organization [facility] [place] [address] Care Team Providers Care Supervisor Fireworks Assembly Name Role Phone Sonido Cordoba Primary Care Provider +1- [phone] Encounter Details Date Type Department Care Team [...] 11/26/2024 8:45 AM EST Appointment [place] [address] DandreJustus Keri [address] [place] [address] 12/31/2024 10:00 AM EST Office [place] [address] Mercy Amanda MD [facility] [address] [place] [address] 04/01/2025 2:00 PM EDT Office Visit G[place]ology [place] [address] Erum Szymanski MD [facility] [place] [address] documented as of this encounter Goals Goal [...] (would rather have you choose regular bread/ togolese muffin, etc. - whole wheat if possible- [...] filedocumented in this encounter Care Teams Supervisor Fireworks Assembly Relationship Specialty Start Date End Date Sonido Cordoba PA [address] [place] [address] PCP - General Family Medicine 07/06/20 documented as of this encounter
--- OUTSIDE RECORDS SUMMARY | 2024-10-25 13:22 | XMS_ITS | Continuity of Care Document ---
Author Organization [facility] Address [address] [place] [address] Assessment No assessment recorded. Plan of Treatment Reminders Order Date Submit Date Provider Last Modified By Organization Details Last Modified Time Details Appointments Follow Up 30 2024 11:00A M GUERO GARSIAKAMLA Not available Not available Not available Lab cultur e, urine + sensit ivity 2023 024 [email or web address] [facility] (Registration ), [address] [place] [address] [place], [address], 10/23/2024 14:06:13 urinal ysis, dipsti ck 2023 024 [facility] [address] [place], [address], 10/16/2024 17:02:36 Referral None record ed. Procedures None record ed. Surgeries None record ed. Imaging US, transv aginal 2023 024 [facility]- US, [facility] , [place], [address], 10/17/2024 08:12:57 Medication Orders Difluc an 150 mg tablet 2023 024 [facility], [address] [place], [address], 10/16/2024 16:15:01 Macrob id 100 mg capsul e 2023 024 [facility], [address] [place], [address], 10/16/2024 16:15:01 Patient TargetsNo targets recorded. Patient InstructionsNo instructions recorded. Reason for Referral None Reported. Results Created Date Observation Date Name Description Value Unit Range Abnormal Flag Note LastModifiedBy Organization Detail LastModifiedTime 10/16/20 24 10/16/2024 urina lysis , dipst ick Leukocytes Trace Not Available [address], [address], 10/16/2024 16:29:47 10/16/20 24 10/16/2024 urina lysis , dipst ick Nitrite positi ve Not Available [address], [address], 10/16/2024 16:29:47 10/16/20 24 10/16/2024 urina lysis , dipst ick Urobilinogen .2 Not Available [address], [address], 10/16/2024 16:29:47 10/16/20 24 10/16/2024 urina lysis , dipst ick Protein 2000+ Not Available [address], [address], 10/16/2024 16:29:47 10/16/20 24 10/16/2024 urina lysis , dipst ick pH 6.0 Not Available [address], [address], 10/16/2024 16:29:47 10/16/20 24 10/16/2024 urina lysis , dipst ick Blood Large Not Available [address], [address], 10/16/2024 16:29:47 10/16/20 24 10/16/2024 urina lysis , dipst ick Specific [place] 1.025 Not Available [address], [address], 10/16/2024 16:29:47 10/16/20 24 10/16/2024 urina lysis , dipst ick Ketone Negati ve Not Available [address], [address], 10/16/2024 16:29:47 10/16/20 24 10/16/2024 urina lysis , dipst ick Bilirubin Negati ve Not Available [address], [address], 10/16/2024 16:29:47 10/16/20 24 10/16/2024 urina lysis , dipst ick Glucose Negati ve Not Available [facility] [address] [place], [address], 10/16/2024 16:29:47 10/16/20 24 10/16/2024 urina lysis , dipst ick Appearance Cloudy Not Available [address], [address], 10/16/2024 16:29:47 10/16/20 24 10/16/2024 urina lysis , dipst ick Color Dark Yellow Not Available [address], [address], 10/16/2024 16:29:47 Result Notes None recorded. 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 16:04:27 Obesity 284149114 Active 201010/28/20 21 - Comments only - Guero Cordoba PA-C - BMI 40. Working with [facility] [employer]. Requeste akanksha upton testing collecte d today. Problem Code: E66.9; Problem Code Type: ICD-10; Not Available [facility] 3 04:30:53 Posttrau matic stress disorder 73009330 Active 2011 Problem Code: F43.10; Problem Code Type: ICD-10; Not Available [facility] 3 04:30:53 History of infectio us disease 370203011 Active 2012 Problem Code: Z86.19; Problem Code Type: ICD-10; Not Available [facility] 3 04:30:53 Pain of left shoulder joint [id number] 989570 Completed 201408/28/2023 Problem Code: M25.512; Problem Code Type: ICD-10; Not Available [facility] 4 05:37:23 Insomnia 333177554 Active 201507/12/20 16 - Comments only - Guero Cordoba PA-C - Supporti ve listenin g provided today. Will arrange for patient to schedule with [facility] for behavior al health supports to address acute stress associat ed with upcoming legal proceedi ngs. Otherwis e to continue on TRAZODON E 50-100mg QHS PRN for sleep. Problem Code: G47.00; Problem Code Type: ICD-10; Not Available [facility] 3 04:30:53 Rodgers' s esophagu s 530191267 Active 201510/28/20 21 - Comments only - Guero Cordoba PA-C - Followed by [facility] gastroen terology . To continue on PROTONIX 40mg BID as RXd by specialt y service provider . Next EGD due 6. Problem Code: K22.70; Problem Code Type: ICD-10; Not Available [facility] 3 04:30:53 Diarrhea 94714990 Completed 201508/06/2016 07/31/20 16 - Comments only - Guero Cordoba PA-C - Suspect sxs reflecti ve of self-perez iting viral gastroen teritis. In any event, patient without signs to suggest for ongoing infectio us risk. Letter drafted to employer to this effect. Problem Code: R19.7; Problem Code Type: ICD-10; Not Available [facility] 3 04:30:53 Anxiety disorder 040877213 Active 201512/04/19 23 - Comments only - Guero Cordoba PA-C - - ANXIETY, PTSD Mood stable on CELEXA 20mg QD and TRAZODON E 50mg QHS PRN. Problem Code: F41.9; Problem Code Type: ICD-10; Not Available [facility] 3 04:30:53 Tension- type headache 375504914 Active 201612/17/19 19 - Comments only - Guero Cordoba PA-C - Will refer to Nito Wells for PT/chiro practic treatmen t interven tions Problem Code: G44.209; Problem Code Type: ICD-10; Not Available [facility] 3 04:30:54 General examinat ion of patient Active 201612/04/19 23 - Comments only - Guero Cordoba PA-C - PAP collecte d today. Bivalen COVID booster and PCV 20 administ ered today. Mammogra m to be schedule d at [facility] at next availabl e. 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 Problem Code: R60.0; Problem Code Type: ICD-10; Not Available [facility] 3 04:30:54 Rosacalvin 968160590 Active 201608/19/20 17 - Comments only - Guero Cordoba PA-C - To begin RXD METROGEL 1% BID Problem Code: L71.9; Problem Code Type: ICD-10; Not Available [facility] 3 04:30:54 Acute upper respirat ory infectio n 25707905 Completed 201711/30/2017 11/16/19 18 - Comments only - Guero Cordoba PA-C - Patient reassure d no signs on today's PX to suggest for bacteria l process that would necessit ate ABX dosing. Will use RXd PREDNISO NE 40mg QD x 4d as burst to relief upper airway reactivi ty. Would expect for progress tiffany improvem ent over the course of this upcoming weekend. Problem Code: J06.9; Problem Code Type: ICD-10; Not Available [facility] 3 04:30:54 Acute sinusiti s 00166381 Completed 201712/18/2017 12/04/19 18 - Comments only - Guero Cordoba PA-C - Will treat with RXd AUGMENTI N 875-125m g BID x 7d. F/U PRN. Problem Code: J01.90; Problem Code Type: ICD-10; Not Available [facility] 3 04:30:54 Housing problems Completed 201712/18/2017 12/04/19 18 - Comments only - Guero Cordoba PA-C - Supporti ve listenin g provided today. Patient stongly encourag ed to ilya prince with outside counseli ng provider ([facility] services not covered by current insuranc e provider ) for behavior al health supports . Therapy pet note provided as per patient request. Not Available [facility] 3 04:30:54 Diarrhea 70619742 Completed 201702/20/2018 02/07/20 18 - Comments only - Guero Cordoba PA-C - Given chronici ty of sxs, will refer to [facility] gastroen terology for consider ation for colonosc opy and further treatmen t interven tions (suspect IBS). Problem Code: R19.7; Problem Code Type: ICD-10; Not Available [facility] 3 04:30:54 Plantar fascial fibromat osis 18805392 Completed 201706/07/2018 Problem Code: M72.2; Problem Code Type: ICD-10; Not Available [facility] 3 04:30:55 Chronic sinusiti s 64501852 Completed 201711/09/2018 Problem Code: J32.9; Problem Code Type: ICD-10; Not Available [facility] 3 04:30:55 Infectio n caused by Helicoba cter pylori 938635328 Active 2018 Problem Code: B96.81; Problem Code Type: ICD-10; Not Available [facility] 3 04:30:55 Plantar fascial fibromat osis 19259245 Completed 201812/31/2018 12/17/19 19 - Comments only - Guero Cordoba PA-C - As per patient request, will refer to [facility] podiatry for consider ation towards more CORTISON E injectio n Problem Code: M72.2; Problem Code Type: ICD-10; Not Available [facility] 3 04:30:55 Enthesop athy 95579725 Completed 201908/28/2023 Problem Code: M77.8; Problem Code Type: ICD-10; Not Available [facility] 4 05:37:22 Benign neoplasm of skin 17407106 Completed 201908/28/2023 Problem Code: D23.9; Problem Code Type: ICD-10; Not Available [facility] 4 05:37:22 Herpes zoster 3302233 Completed 201908/28/2023 Problem Code: B02.9; Problem Code Type: ICD-10; Not Available [facility] 4 05:37:23 Dog bite Completed 201905/04/2020 04/20/20 20 - Comments only - Guero Cordoba PA-C - Wound appears to be healing well. Excused from work duties through 04/22/20. To continue on AUGMENTI N as RXD by ARACELY Lau/[place] PRN. Not Available [facility] 3 04:30:56 Foot pain 86853390 Completed 201906/28/2020 06/14/20 20 - Comments only - Guero Cordoba PA-C - Suggeste d patient explore more supporti ve footwear and/or blister proof socks if she intends to continue with walking activiti es. Will refer to podiatry to assess for custom orthotic s. Problem Code: M79.673; Problem Code Type: ICD-10; Not Available [facility] 3 04:30:56 Peroneal tendinit is of right lower limb 42382837241 9109 Completed 201908/28/2023 Problem Code: M76.71; Problem Code Type: ICD-10; Not Available [facility] 4 05:37:24 Pre-surg he evaluati on Completed 201908/03/2020 07/20/20 20 - Comments only - Guero Cordoba PA-C - In-offic e EKG shows NSR @ XXbpm. Assuming benign findings with today's laborato ry testing, medicall y cleared for surgery as schedule d. Problem Code: Z01.818; Problem Code Type: ICD-10; Not Available [facility] 3 04:30:56 Bradycar nancy 33505377 Completed 201908/28/2023 Problem Code: R00.1; Problem Code Type: ICD-10; Not Available [facility] 4 05:37:22 Gastroes ophageal reflux disease without esophagi tis 384066070 Active 201912/04/19 23 - Comments only - Guero Cordoba PA-C - - RODGERS' S ESOPHAGU S Followed by [facility] gastroen terology . To continue on PROTONIX 40mg BID as RXd by specialt y service provider . Next EGD due 2023- 6. Problem Code: K21.9; Problem Code Type: ICD-10; Not Available [facility] 3 04:30:56 Pain in left lower limb 974667494 Active 201910/30/20 22 - Comments only - Guero Cordoba PA-C - Suspect recurren ce of previous [...] M79.605; Problem Code Type: ICD-10; Not Available [facility] 3 04:30:56 Non-scar ring alopecia 911017208 Completed 202008/28/2023 Problem Code: L65.9; Problem Code Type: ICD-10; Not Available [facility] 4 05:37:21 Pain in right hand 46027196769 9109 Completed 202008/28/2023 Problem Code: M79.641; Problem Code Type: ICD-10; Not Available [facility] 4 05:37:21 Pain of toe of left foot 29137052374 9108 Completed 202105/21/2022 05/18/20 22 - Comments only - Guero Cordoba PA-C - Given isolated area of discomfo [...] M79.675; Problem Code Type: ICD-10; Not Available [facility] 3 04:30:57 COVID-19 381878893 Active 2021 Problem Code: U07.1; Problem Code Type: ICD-10; Not Available [facility] 3 04:30:57 Screenin g mammogra phy Active 2022 Problem Code: Z12.31; Problem Code Type: ICD-10; Not Available [facility] 3 04:30:57 Steatosi s of liver 029146063 Active 202212/04/19 23 - Comments only - Guero Cordoba PA-C - CMP and CBC collecte d today as monitori ng. Problem Code: K76.0; Problem Code Type: ICD-10; Not Available [facility] 3 04:30:57 Screenin g for malignan t neoplasm of colon Active 2022 Problem Code: Z12.11; Problem Code Type: ICD-10; Not Available [facility] 3 04:30:58 Neck pain 16775451 Active 2022 Problem Code: M54.2; Problem Code Type: ICD-10; Not Available [facility] 3 04:30:58 Major depressi on, single episode 73828628 Active 200904/26/20 21 - Comments only - Guero Cordoba PA-C - Stable on CELEXA 30mg QD +/- TRAZODON E PRN for sleep Problem Code: F32.9; Problem Code Type: ICD-10; Not Available [facility] 3 04:30:58 Screenin g for cardiova scular system disease Completed 201408/19/2017 Problem Code: Z13.6; Problem Code Type: ICD-10; Not Available [facility] 3 04:30:58 Chronic maxillar y sinusiti s 59486982 Completed 201710/15/2018 Problem Code: J32.0; Problem Code Type: ICD-10; Not Available [facility] 3 04:30:58 Tubal ligation done 99941568283 108 Completed 201108/01/2023 Not Available [facility] 3 04:30:58 Shoulder joint pain 982891814 Completed 201408/01/2023 07/26/20 15 - Comments only - Guero Cordoba PA-C - Patient to f/u with [facility] orthoped ics for evaluati on as schedule d. Problem Code: 719.41; Problem Code Type: ICD-9; Not Available [facility] 3 04:30:59 Elevated blood-pr essure reading without diagnosi s of hyperten khoi 297612754 Completed 201608/19/2017 Problem Code: R03.0; Problem Code Type: ICD-10; Not Available [facility] 3 04:30:59 Dysphagi a 06928795 Completed 201409/24/2016 Problem Code: R13.10; Problem Code Type: ICD-10; Not Available [facility] 3 04:30:59 Chronic rhinitis 35075373 Completed 201504/21/2016 Problem Code: J31.0; Problem Code Type: ICD-10; Not Available [facility] 3 04:30:59 Pelvic and perineal pain 624693929 Completed 201907/20/2020 Problem Code: R10.2; Problem Code Type: ICD-10; Not Available [facility] 3 04:30:59 Abdomina l pain 22007142 Completed 201404/21/2016 Problem Code: R10.9; Problem Code Type: ICD-10; Not Available [facility] 3 04:31:00 Acute pharyngi tis 510653679 Completed 201812/15/2019 Problem Code: J02.9; Problem Code Type: ICD-10; Not Available [facility] 3 04:31:00 Urinary tract infectio us disease 37641762 Completed 201708/01/2023 Problem Code: N39.0; Problem Code Type: ICD-10; Not Available [facility] 3 04:31:00 Pain in right lower limb 793639405 Completed 201608/19/2017 Problem Code: M79.604; Problem Code Type: ICD-10; Not Available [facility] 3 04:31:00 Acute upper respirat ory infectio n 42951060 Completed 201508/19/2017 Problem Code: J06.9; Problem Code Type: ICD-10; Not Available [facility] 3 04:31:00 Increase d frequenc y of urinatio n 617003764 Completed 201907/20/2020 Problem Code: R35.0; Problem Code Type: ICD-10; Not Available [facility] 3 04:31:01 Migraine 49541554 Completed 201608/01/2023 Problem Code: G43.909; Problem Code Type: ICD-10; Not Available [facility] 3 04:31:01 Arthralg ia of the ankle and/or foot 499936622 Completed 201610/15/2018 Problem Code: M25.572; Problem Code Type: ICD-10; Not Available [facility] 3 04:31:01 Depressi ve disorder 70278499 Completed 200908/01/2023 Not Available [facility] 3 04:31:01 Human papillom avirus negative squamous cell carcinom a Completed 201108/01/2023 Not Available [facility] 3 04:31:01 Fever 595363894 Completed 201509/24/2016 Problem Code: R50.9; Problem Code Type: ICD-10; Not Available [facility] 3 04:31:02 Fatigue 15055916 Completed 201509/24/2016 Problem Code: R53.83; Problem Code Type: ICD-10; Not Available [facility] 3 04:31:02 Dysuria 85345391 Completed 201710/15/2018 Problem Code: R30.0; Problem Code Type: ICD-10; Not Available [facility] 3 04:31:02 Posttrau matic stress disorder 68282616 Completed 201008/01/2023 Not Available [facility] 3 04:31:02 Lumbosac ral radiculo craig 4677749 Completed 201408/01/2023 02/07/20 16 - Comments only - Guero Cordoba PA-C - Given lack of improvem ent with historic ally tried PT guided rehab, will initiate refer to [facility] for consider ation towards interven tional treatmen ts. In the interim, to increase NEURONTI N to 100mg QAM and 600mg QHS. Problem Code: M54.16; Problem Code Type: ICD-10; Not Available [facility] 3 04:31:03 Plantar fascial fibromat osis 79323894 Completed 201511/07/2016 Problem Code: M72.2; Problem Code Type: ICD-10; Not Available [facility] 3 04:31:03 Screenin g for malignan t neoplasm of cervix Completed 201107/20/2020 Problem Code: Z12.4; Problem Code Type: ICD-10; Not Available [facility] 3 04:31:03 Burn 273183097 Completed 201511/10/2016 Problem Code: T30.0; Problem Code Type: ICD-10; Not Available [facility] 3 04:31:04 Pain in right foot 49915122847 9107 Active [address], [place], [address] , [facility] 3 13:59:23 Contact dermatit is 84528632 Completed 202208/28/2023 Problem Code: L25.9; Problem Code Type: ICD-10; Not Available [facility] 4 05:37:22 Pain in left lower limb 508586416 Completed 201408/28/2023 Problem Code: M79.605; Problem Code Type: ICD-10; Not Available [facility] 4 05:37:23 Pruritic rash 46910632 Active [address], [place], [address] , [facility] 4 11:12:18 Notes:*Problem Name: + Lyme Titer *ICD-10 Codes: *Problem Status: inactive *Comments: *Note Date: 09/02/2013 *Problem Name: Ptsd--reactivation *ICD-10 Codes: *Problem Status: inactive *Comments: *Note Date: 02/11/2012 Problem Notes None recorded. Procedures Surgical History Date Name Laterality Status Provider Name and Address Organization Details Recorded Time 024 Chandler-en-Y gastrojejunostomy completed [address], [place], [address], [facility] 06/09/2024 05:45:19 023 Date of Last Colonoscopy completed ASHUTOSH HAWTHORNE MA [facility] 12/03/2023 09:00:45 023 Most Recent Mammogram completed ASHUTOSH HAWTHORNE MA [facility] 12/03/2023 09:00:06 023 Date of Last Mammogram completed ASHUTOSH HAWTHORNE MA [facility] 12/03/2023 09:00:12 023 Date of Last Pap Smear completed ASHUTOSH HAWTHORNE MA [facility] 12/03/2023 08:59:13 Imaging Results None recorded. Procedure Notes None recorded. Medical Equipment None Reported. Allergies Allergen ID Allergen Name Allergen Category Reaction Reaction Severity Criticality Documentation Date Start Date Code Code System Note Provider Name and Address Organization Details Recorded Time 16787 Poison Indu medicatio n Not available Not available Not available 09/14/20232016 Aller gyNam e: 'POIS ON INDU'; Not Available [facility] 3 16:22:08 77728 oxycodone hydrochlo ride medicatio n vomiting Not available [facility] 09/14/20232011 28496 RxNorm OLIVE ARANDA [address], [place], [address] [place] [address] 4 15:53:22 79254 diclofena c medicatio n other moderate Not available 09/14/20232019 3355 RxNorm GI UPSET Aller gyRea ction : 'GI UPSET '; Not Available [facility] 3 16:22:09 11886 ketchup food Not available Not available Not available 03/13/2024 ANGEL Franz, [facility] 4 10:15:08 77376 ibuprofen medicatio n Not available Not available Not available 03/13/2024 5640 RxNorm avoid s due [place] tt's esoph afsaneh [address], [place], [address], [facility], [facility] 4 15:53:05 19493 fish derived food,medi cation other Not available Not available 10/16/2024 conac t with skin cause s ga ; does not eat EZEKIEL SALASDiamond PEREZ, [facility] [address], [place], [address], [facility], [facility] 4 15:55:04 Medications Name Sig Start Date Stop Date Status Note LastModified by Organization Details LastModified Time metformin 500 mg tablet 500mg-4 PO QD 12/04 completed [facility] Not Available Not Available Not Available nystatin [...] BEFORE MEALS AND HS PRN 01/21 completed [facility] Not Available Not Available Not Available metronidazo [...] Smoking Status Never Smoker Tammy Corbett MA [facility], [place] - [facility]. 09/21/2023 12:51:10 What Is Your Level Of Alcohol Consumption? None [email or web address] Information not available 09/21/2023 Would You Say [...] Use Any Illicit Or Recreational Drugs? No [email or web address] Information not available 09/21/2023 Has Tobacco Cessation [...] less than 55 years of age FATAL ND @ 37Y/O Not available 09/14/2023 03:54:39 Maternal [...] Time MMR 6 completed Not Available [facility] 09/14/2023 05:02:42 MMR 6 completed Not Available [facility] 09/14/2023 05:02:42 Td (adult), 5 Lf tetanus toxoid, preservative free, adsorbed 6 completed Not Available [facility] 09/14/2023 05:02:42 Tdap 8 completed Not Available [facility] 09/14/2023 05:02:43 Influenza, split virus, trivalent, preservative 5 completed Not Available [facility] 09/14/2023 05:02:43 Influenza, split virus, trivalent, preservative 6 completed Not Available [facility] 09/14/2023 05:02:43 Influenza, split virus, quadrivalent, PF 0 completed Not Available [facility] 09/14/2023 05:02:43 Influenza, split virus, quadrivalent, PF 1 completed Not Available [facility] 09/14/2023 05:02:43 Influenza, split virus, quadrivalent, PF 9 completed Not Available [facility] 09/14/2023 05:02:44 Influenza, split virus, quadrivalent, preservative 7 completed Not Available [facility] 09/14/2023 05:02:44 Influenza, split virus, quadrivalent, preservative 8 completed Not Available [facility] 09/14/2023 05:02:44 COVID-19, mRNA, LNP-S, PF, 100 mcg/0.5mL dose or 50 mcg/0.25mL dose 1 completed Not Available [facility] 09/14/2023 05:02:44 COVID-19, mRNA, LNP-S, PF, 100 mcg/0.5mL dose or 50 mcg/0.25mL dose 1 completed Not Available [facility] 09/14/2023 05:02:44 COVID-19, mRNA, LNP-S, PF, 100 mcg/0.5mL dose or 50 mcg/0.25mL dose 1 completed Not Available [facility] 09/14/2023 05:02:44 Pneumococcal conjugate PCV20, polysaccharide [id number] conjugate, adjuvant, PF 3 completed Not Available [facility] [facility] 09/14/2023 05:02:45 COVID-19, mRNA, LNP-S, bivalent, PF, 30 mcg/0.3 mL dose 3 completed Not Available [facility] 09/14/2023 05:02:45 Hep B, adult 7 completed Not Available [facility] 09/14/2023 05:02:45 Hep B, unspecified formulation 6 completed Not Available [facility] 09/14/2023 05:02:45 Hep B, unspecified formulation 6 completed Not Available [facility] 09/14/2023 05:02:46 influenza, unspecified formulation 3 completed Not Available [facility] 09/14/2023 05:02:46 COVID-19, mRNA, LNP-S, PF, jae-sucrose, 30 mcg/0.3 mL 4 completed Lea bowers [facility] 08/21/2024 15:47:44 Influenza, split virus, trivalent, PF 4 completed Lea bowers [facility] 08/21/2024 15:47:44 COVID-19, mRNA, LNP-S, PF, jae-sucrose, 30 mcg/0.3 mL 3 completed Not Available [facility] 11/16/2023 05:33:21 Past Encounters Encounter ID Performer Location Encounter Start Date Encounter Closed Date Diagnosis/Indication Diagnosis SNOMED-CT Code Diagnosis ICD10 Code [id number] [facility] [address] [place] [address] 10/16/2024 15:19:15 10/16/2024 16:21:22 Postmenopausal bleeding 10993337 N95.0 Urinary tr act infectious disease 65030920 N39.0 Health Concerns Section Related Observation LastModified by Organization Detai ls LastModified Time None Recorded Concern Status LastModified by Organization Details LastModified Time None Recorded Payers Encounter Date Sequence Insurance Name Policy Number Policy Walsh Covered Member ID Walsh Member ID Guarantor Name 10/16/2024 1 [facility] (MEDICAID) Vianney Meeks [id number] Vianney Meeks Notes Date Note Type Note Provider Name and Address Organization Details Recorded Time 10/16/2024 text/html Vianney present s for dysuria and postmenopausal bleeding OLIVE SNYDER [address], [place], [address], [facility]. 10/16/2024 18:20:01 OBGyn Episode No OBEpisode recorded.
--- OUTSIDE RECORDS SUMMARY | 2024-10-25 13:22 | XMS_ITS | Encounter Summary ---
[place] [address] Care Team Providers Care Associate Professor Computer Science Name Role Phone Sonido Cordoba Primary Care Provider [phone] Reason for Visit * Auth/Cert (Routine) Specialty Diagnoses / Procedures Referred By Aric t Referred To Contact Diagnoses Morbid Obesity Procedures PRO LAP GASTRIC BYPASS/ELVIE-EN-Y PRO UPPER GI ENDOSCOPY, DIAGNOSTIC PRO UNLISTED LAPAROSCOPIC PROCEDURE ESOPHAGUS @LAPAROSCOPIC GASTROPLASTY W/ ELVIE-EN-Y CONSTRUCTION (WRVU 29.4) EGD, UPPER GI ENDOSCOPY (WRVU 2.09) LAPAROSCOPIC TAKEDOWN PREVIOUS TYESHA (WRVU 48.75) Ladan Damon MD [facility] [place] [address] [facility] Referral ID Status Reason Start Date Expiration Date Visits Re quested Visits Authorized [id number] 1 1 Encounter Details Date Type Department Care Team (Latest Contact Info) Description 05/29/2024 6:06 AM EDT - 05/30/2024 2:32 PM EDT Hospital [place] [id number] Ladan Damon MD [facility] [place] [address] 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 09/19/2024 10:[address]; Dena Alexander APRN General Surgery at [facility] Arrive at: Automotive [employer] Manager Area [phone] 12/08/2024 10:30 AM Mercy Amanda MD Weight and Wellness at [facility] Arrive at: [employer] Manager Area [phone] 04/01/2025 2:00 PM Erum Szymanski MD Gastroenterology at [facility] Arrive at: Automotive [employer] Manager Area [phone] Instructions Given to Patient at Discharge: Patient Instructions Discharge Instructions - Bariatric Surgery NEW PRESCRIPTIONS: 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 and steel 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 supervisor at [facility] today: Zofran (ondansetron), gabapentin, [...] - 5pm): General Surgery and Bariatric Surgery [phone] Bariatric Surgeons: Jeremy Meléndez Trus [phone] Operations Business Partner: [phone] Dietitians: [phone] Outside of regular business hours, including weekends and holidays: Ask for General Surgery resident x ray electronics wireman [phone] Please note, this call will be answered [...] Team in 3 weeks at the [facility] (Autom[employer] Manager 4L, [facility]). Future Appointments Date Time Provider Department Center 06/20/2024 12:30 PM Dena Alexander APRN [facility] SURG [facility] 09/19/2024 10:00 AM Dena Alexander APRN [facility] SURG [facility] 12/08/2024 10:30 AM Mercy Amanda MD [facility] WEIGHT [facility] 04/01/2025 2:00 PM Erum Szymanski MD [facility] GASTRO [facility] WOUND CARE You have liquid dressing over [...] twice daily. Please call or send a [employer] message if you do not have a [...] Follow up with primary care provider or lab specialist in 1-2 weeks in order to [...] RD; Dena Alexander APRN General Surgery at [facility] Arrive at: Automotive Parts Manager Area [phone] Please dispose of unused excess opioids before your appointment or bring them with you to the appointment and we will help you dispose of them correctly. 09/19/2024 10:[address]; Dena Alexander APRN General Surgery at [facility] Arrive at: Automotive Parts Manager Area [phone] 12/08/2024 10:30 AM Mercy Amanda MD Weight and Wellness at [facility] Arrive at: Automotive Parts Manager Area [phone] 04/01/2025 2:00 PM Erum Szymanski MD Gastroenterology at [facility] Arrive at: Automotive Parts Manager Area [phone] Signed: Elly Zuleta MD [facility] Physician: WANDY Aguilera [address] / [facility] [id number] documented in this encounter Discharge Instructions * Patient Instructions* Crystal Mendez PA - 05/21/2024 11:25 AM EDT Images from the original note were not included. 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 Future Appointments Date Time Provider Department Center 06/20/2024 12:30 PM Dena Alexander APRN [facility] SURG [facility] 09/19/2024 10:00 AM Dena Alexander APRN [facility] SURG [facility] 12/08/2024 10:30 AM Mercy Amanda MD [facility] WEIGHT [facility] 04/01/2025 2:00 PM Erum Szymanski MD [facility] GASTRO [facility] WOUND CARE You have liquid dressing over [...] twice daily. Please call or send a [employer] message if you do not have a [...] Follow up with primary care provider or lab specialist in 1-2 weeks in order to [...] 03/25/2024 pantoprazole EC (Protonix) [address] tabletIndications:Alfred tt's esophagus without dysplasia,Gastroesophag eal reflux disease [...] Visit from 03/06/2024 in General Surgery at [facility] Office Visit from 02/04/2024 in Weight and Wellness at [facility] Weight 109.9 kg (242 lb 4.8 oz) 1 03/06/2024 1254 113.3 kg (249 lb 12.8 oz) 1 02/04/2024 1626 BMI -- 44.15 1 02/04/2024 1626 Discussion of treatment of obesity and of the [facility] Bariatric Surgery Program: Vianney Cordero is aware that other treatments for obesity are available, ie, dietary, behavior modification, weight loss medications, exercise as well as surgical weight loss methods. The risks and benefits of bariatric surgery, including gastric bypass and sleeve gastrectomy are discussed at every Introduction to the [facility] Bariatric Surgery Program meeting and all Educational Seminars, and were again discussed individually today. Assessment/Plan: Vianeny Cordero. is a 48 y.o.. with severe [...] surgery to be successful. She understands the prison risks of vitamin deficiencies, internal hernias and [...] loss encouraged - Given a surgery date [facility] Bariatric Surgery Evaluation Follow Up Patient's [...] Has not attended a Introduction to the [facility] Bariatric Surgery Program seminar, a comprehensive two hour meeting that provides a program overview, education on bariatric surgeries offered at [facility], risks and benefits, as well as patient expectations and follow up. [facility] Bariatric Surgery Program Educational seminars viewed Bariatric Surgery Program evaluations with RD: Completed today Program start weight: 256 WT at visit #1: Wt & BMI By Encounter Date Flowsheet Row Office Visit from 03/06/2024 in General Surgery at [facility] Office Visit from 02/04/2024 in Weight and Wellness at [facility] Weight 109.9 kg (242 lb 4.8 oz) [...] make it up to the top of [facility]. Patient has a hx tyesha fundoplication, [...] 3.66) performed by Erum Szymanski MD at [facility] ENDOSCOPY PRO COLONOSCOPY, BIOPSY N/A 09/04/2019 COLONOSCOPY FLEXIBLE, WITH BX (WRVU 3.66) performed by Steve Ji MD at [facility] ENDOSCOPY PRO COLONOSCOPY, DIAGNOSTIC N/A 09/04/2019 COLONOSCOPY, DIAGNOSTIC performed by Steve Ji MD at [facility] ENDOSCOPY PRO COLONOSCOPY, DIAGNOSTIC N/A 06/01/2023 COLONOSCOPY,SCREENING (WRVU 3.26) performed by Steve Ji MD at [facility] ENDOSCOPY PRO COLONOSCOPY, REMV LESN, SNARE N/A 08/21/2018 COLONOSCOPY, POLYPECTOMY, REMOVAL LESION BY SNARE (WRVU 4.67) performed by Erum Szymanski MD at [facility] ENDOSCOPY PRO CYSTO W URETEROSCOPY &/OR PYELOSCOPY, DX Right 06/01/2015 CYSTOURETEROSCOPY, DIAGNOSTIC performed by Darius Nuñez Jr., MD at [facility] MAIN OR PRO CYSTOSCOPY, INSERT URETERAL STENT Right 06/01/2015 CYSTO, STENT PLACEMENT performed by Darius Nuñez Jr., MD at [facility] MAIN OR PRO LAPAROSCOPY SURG ESOPHAGOGASTRIC FUNDOPLASTY N/A 04/05/2015 LAPAROSCOPIC TYESHA FUNDOPLASTY performed by Valentín Moura MD at [facility] MAIN OR PRO PERCUT DILATN RENAL TRACT Right 06/01/2015 PERCUTANEOUS INTRO GUIDE WIRE TO ACCESS RENAL PELVIS,AND OR URETER, W\DILATION performed by Darius Nuñez Jr., MD at [facility] MAIN OR PRO PERQ NL/PL LITHOTRIPSY SIMPLE UP TO 2 CM 1 LOCATION Right 06/01/2015 NEPHROLITHOTOMY, ([facility]NL) PERCUTANEOUS performed by Darius Nuñez Jr., MD at [facility] MAIN OR PRO REPAIR PERONEAL TENDONS Right 08/12/2020 PERONEAL TENDON REPAIR (WRVU 7.35) performed by Mani Jefferson MD at [facility] OSC PRO UPPER GI ENDOSCOPY, BIOPSY N/A 01/27/2015 EGD WITH BIOPSY performed by Brandt Barlow MD at [facility] ENDOSCOPY PRO UPPER GI ENDOSCOPY, BIOPSY N/A 02/28/2016 EGD WITH BIOPSY performed by Brandt Barlow MD at [facility] ENDOSCOPY PRO UPPER GI ENDOSCOPY, BIOPSY N/A 09/04/2016 EGD WITH BIOPSY performed by Brandt Barlow MD at [facility] ENDOSCOPY PRO UPPER GI ENDOSCOPY, BIOPSY N/A 09/24/2017 EGD WITH BIOPSY (WRVU 2.49) performed by Brandt Balrow MD at [facility] ENDOSCOPY PRO UPPER GI ENDOSCOPY, BIOPSY N/A 08/21/2018 EGD WITH BIOPSY (WRVU 2.49) performed by Erum Szymanski MD at [facility] ENDOSCOPY PRO UPPER GI ENDOSCOPY, BIOPSY N/A 09/04/2019 UPPER GASTROINTESTINAL ENDOSCOPY,WITH BIOPSY SINGLE OR MULTIPLE (WRVU 2.49) performed by Steve Ji MD at [facility] ENDOSCOPY PRO UPPER GI ENDOSCOPY, BIOPSY N/A 05/24/2021 EGD WITH BIOPSY (WRVU 2.49) performed by Kathy Carnes MD at [facility] ENDOSCOPY PRO UPPER GI ENDOSCOPY, BIOPSY N/A 06/01/2023 EGD WITH BIOPSY (WRVU 2.39) performed by Steve Ji MD at [facility] ENDOSCOPY PRO UPPER GI ENDOSCOPY, DIAGNOSTIC N/A 09/04/2019 EGD, UPPER GI ENDOSCOPY performed by Steve Ji MD at [facility] ENDOSCOPY TONSILLECTOMY Current Medications Current Outpatient Medications: [...] granddaughter (2 yo)lives with her. 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 Lab data: Labs complete and up to date. 2. Psychological evaluation done by Juliette Lu PsyD, Weight and Wellness at [facility] : per Dr. Allen [...] Plan for patient to follow up with [facility] Psychology 2 months post op. She denies binge eating, night eating disorder, self-induced vomiting, laxative or diuretic use or excessive exercise to lose weight. 12/20/2023 8:17 AM [facility] Initial Responses PROMIS 10 Physical [...] surgery to be successful. Patient understands the prison risks of vitamin deficiencies, internal hernias and ulcers. Patient realizes the need for life long follow up with the bariatric surgery program and understands the importance of the preoperative diet in terms of safety and ability to perform the procedure. Consent was reviewed or signed today. Mental health - Patient was seen in 5D x2 and has discussed with [facility] psychology with plan to see [facility] provider 2 months post op. Eating behaviors and readiness for surgery- Reviewed importance of continuing to work on strategiesto help manage behaviors. Recommend tracking ([employer]) and measuring food. Goals of 60 [...] surrogate would be surrogate decision maker per [place] surrogate decision making law. (Only good for 180 days) Any patient receiving care in [place] must abide by [place] law. The hierarchy for surrogate decision making is: (a) Patient???s spouse or civil union partner unless there is a divorce proceeding, separation agreement, or restraining order limiting that person???s relationship with the patient. (b) Any adult son or daughter of the patient. Barrie Carcamo, child [phone] (c) Either parent of the patient. (d) Any adult brother or sister of the patient. (e) Any adult grandchild of the patient. (f) Any grandparent of the patient. (g) Any adult aunt, uncle, niece, or nephew of the patient. (h) A close friend of the patient. (i) The agent with financial power of civil rights attorney or a conservator appointed in accordance with RSA 464-A. (j) The guardian of the patient???s estate. 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 Resource / Environmental Concerns: Home Address listed as: [address] [place] [phone] Social & Family Supports: All names listed below confirmed with patient as current and correct Extended Emergency Contact Information Primary Emergency Contact: Michael Lomeli Address: [address] [place] [phone] [facility] Mobile Relation: Significant Other Secondary Emergency Contact: Jyotsna Cordero Address: [address] [facility] Relation: Mother Substance Use/Abuse listed: [...] N/A ; Prescription Coverage: Yes Preferred Pharmacy: [id number] - [place], [place] - [address] [facility] [address] [place], [place] - [address] [address] [facility] [address] [place] [address] - [address] [place] [address] [address] [facility] [address] Primary Care Provider listed: WANDY Aguilera [phone] Potential Needs for Transition of Care: none [...] coordination of care as indicated. MARLYN Maxwell, six sigma black belt engineer of Care Management Pager [phone] * Plan of Care - Feli Wills [...] Damon MD - 05/29/2024 8:19 AM EDT [facility] Operative Note Patient Name: Vianney Cordero : [id number] MR#: [id number] Case Date: 05/29/2024 Surgeon: Surgeons and Role: [...] esophagus was identified and encircled with a [place] drain. This was used for further traction to complete the fabiana-esophageal dissection. An upper endoscopy was introducedto verify to location of the esophagus and revealed no evidence of injury. There was a small recurrent hiatal hernia that was then closed with multiple interrupted 0 Surgilon sutures placed behind the esophagus. The fundoplication was completely unwrapped and placed in normal anatomic location. The [place] was then removed. We created a small [...] distal bowel was chosen to create the [id number] jejunojejunostomy. The duodenal, afferent limb was approximated [...] suture in two layers with a 30 Irish Bougie (blunt-tipped) in place. The Bougie was [...] 11/26/2024 8:45 AM EST [place] [phone] [address] 12/31/2024 10:00 AM EST Office [place] [phone] Mercy Amanda MD [facility] [address] [place] [address] 04/01/2025 2:00 PM EDT Office [place] [address] Erum Szymanski MD [facility] [place] [address] documented as of this encounter Goals Goal [...] a priority: - Eggs - Cheese - Setswana yogurt / cottage cheese - meat - fish - nuts/seeds - protein shake or bar Start with the protein, can choose to add other foods (would rather have you choose regular bread/ surinamese muffin, etc. - whole wheat if possible- [...] EDT Morbid Obesity Unlisted Laparoscopic Procedure Esophagus (09050) 05/29/2024 7:40 AM EDT Morbid Obesity Upper GI Endoscopy, Diagnostic (27841) 05/29/2024 7:40 AM EDT Morbid Obesity Lap Gastric Bypass/Elvie-En-Y (25777) 05/29/2024 7:40 AM EDT Morbid Obesity UPPER GI ENDOSCOPY Routine 05/29/2024 6: 08 AM EDT LAPAROSCOPIC TAKEDOWN PREVIOUS TYESHA Routine 05/29/2024 6:08 AM EDT LAPAROSCOPIC GASTROPLASTY, G\SURG Routine 05/29/2024 6:08 AM EDT documented in this encounter Results * (ABNORMAL) Differential, Automated (05/30/2024 4:24 AM EDT) Neutrophil % 76.8 % [facility] Neutrophil Absolute 9.06(H) 1.70 - 6.10 x10(3)/mc L [facility] Lymph % 15.2 % [facility] Lymphocytes Abs 1.8 0.9 - 3.2 x10(3)/mc L [facility] Monocyte % 7.6 % [facility] Monocyte Abs 0.9 0.3 - 0.9 x10(3)/mc L [facility] Eos % 0.0 % [facility] Eosinophils Abs 0.0 0.0 - 0.4 x10(3)/mc L [facility] Basophil % 0.1 % [facility] Baso Absolute 0.0 0.0 - 0.1 x10(3)/mc L [facility] Immature Gran % 0.30 % [facility] Comment: Immature granulocytes(IG's)percentage and absolute count will include metamyelocytes, myelocytes, and promyelocytes. Blood smears from CBCs yielding IG's will be scanned manually for concordance. If this scan disagrees with the automated IG or if promyelocytes are noted, a manual differential will be performed. Immature Gran Absolute 0.04 0.00 - 0.04 x10(3)/mc L [facility] Blood 05/30/2024 4:24 AM EDT 05/30/2024 4:38 AM EDT Narrative Resulting Agency Comment Spec In Lab Elly Zuleta MD HEMATOLOGY ORDERABLE S [facility] [place] [address] * (ABNORMAL) Hemogram (05/30/2024 4:24 AM EDT) White Blood Cell 11.8(H) 4.0 - 9.5 x10(3)/[facility] Red Blood Cell 4.31 4.00 - 5.21 x10(6)/[facility] Hemoglobin 12.9 11.7 - 15.5 g/dL [facility] Hematocrit 38.1 35.7 - 45.8 % [facility] Mean Cell Volume 88.4 82.6 - 94.4 fL [facility] Mean Cell Hemoglobin 29.9 27.1 - 32.0 pg [facility] Mean Cell Hemoglobin Concentration 33.9 31.7 - 35.0 g/dL [facility] Platelet 287 145 - 357 x10(3)/[facility] RDW Standard Deviation 38.7 37.0 - 46.0 [facility] RDW coefficient of variation 12.1 11.5 - 14.1 % [facility] Mean Platelet Volume 9.7 7.6 - 12.9 fL [facility] NRBC% auto 0.0 % [facility] NRBC Absolute 0.000 0.000 - 0.000 x10(3)/[facility] Blood 05/30/2024 4:24 AM EDT 05/30/2024 4:38 AM EDT Narrative Resulting Agency Comment Spec In Lab Elly Zuleta MD HEMATOLOGY ORDERABLE S [facility] [place] [address] * Phosphorus (05/30/2024 4:24 AM EDT) Phosphorus 3.7 2.5 - 4.5 mg/dL [facility] Blood 05/30/2024 4:24 AM EDT 05/30/2024 4:38 AM EDT Narrative Resulting Agency Comment Spec In Lab Ladan Damon MD CHEMISTRY ORDERABLE S Performing Organization Address City/[facility]/ZIP Co de Phone Number [facility] [place] [address] * Magnesium (05/30/2024 4:24 AM EDT) Magnesium 0.92 0.69 - 1.07 mmol/L [facility] Blood 05/30/2024 4:24 AM EDT 05/30/2024 4:38 AM EDT Narrative Resulting Agency Comment Spec In Lab Ladan aDmon MD CHEMISTRY ORDERABLE S Performing Organization Address [facility] Co de Phone Number [facility] [place] [address] * (ABNORMAL) Basic Metabolic Panel (non-fasting) (05/30/2024 4:24 AM EDT) Glucose 134 65 - 199 mg/dL [facility] Comment:Diabetes: >=200 mg/d L plus symptoms Blood Urea Nitrogen 11 8 - 18 mg/dL [facility] Creatinine 0.68(L) 0.70 - 1.20 mg/dL [facility] Sodium 138 135 - 145 mmol/L [facility] Potassium 3.9 3.5 - 5.0 mmol/L [facility] Comment: Please note: ??Patients with WBC >100,000 may have falsely elevated Potassium levels. ??For accurate Potassium quantification in these patients send serum separator tube (gold top) for subsequent determinations. ??Contact the Clinical Chemistry Laboratory if there are any questions. Chloride 106 98 - 107 mmol/L [facility] Carbon Dioxide 21(L) 22 - 31 mmol/L [facility] Anion Gap 11 5 - 15 mmol/L [facility] Calcium 9.0 8.5 - 10.5 mg/dL [facility] Est Glomerular Filtration Rate 108 >=60 mL/min/1. 73 m?? [facility] Comment: This patient's [...] MD CHEMISTRY ORDERABLE S Performing Organization Address [facility] Co de Phone Number [facility] [place] [address] * Specimen to Pathology (05/29/2024 10:43 AM EDT) AP Specimen 05/29/2024 10:4 3 AM EDT 05/29/2024 10:43 AM EDT Narrative [facility] - 05/29/2024 10:43 AM EDT Specimen requisition ordered. ??Separate Pathology report to follow Ladan Damon MD PATHOLOGY/CYTOLOGY ORDERABLES Performing Organization Address [facility] Co de Phone Number [facility] [place] [address] * Surgical Pathology Report (05/29/2024 10:42 AM EDT) Final Diagnosis [id number] ? Location: PACU; PA17; A The signing pathologist has (i) examined the relevant preparation(s) for the specimen(s) and (ii) rendered or confirmed the diagnosis(es). . ?Surgical Pathology DIAGNOSIS A - Portion of stomach - perm, resection: - Segment of stomach lined with unremarkable fundic gland mucosa. Electronically signed by: ?Ronald RIVAS, Samira Verified: ??06/03/2024 11:58 ??Pathologist Performed at: ??-[facility] Dept. of Pathology, [place] [address] [employer] Refiner: Ayad Dee MD, FCAP, ??CLIA Certificate: [id number] SPECIMEN(S) SUBMITTED A - Portion of stomach [...] 1.5 x 1.0 cm diverticulum. Sections/Process ing: [employer] Team Member sections in 1 cassettes as follows: ?A1: ??[employer] Team Member diverticulum ??sns 06/03/2024 11:58 AM EDT [facility] STOMACH STRUCTURE / Unknown 05/29/2024 10:42 AM EDT 05/29/2024 10:42 AM EDT Ladan Damon MD PATHOLOGY/CYTOLOGY ORDERABLES [facility] [place] [address] documented in this encounter Visit Diagnoses Diagnosis [...] 8 HOURS, 6 doses, First dose on Sun05/29/24 at 1345, Last dose on Sun05/31/24 at 0545, Routine Given 05/30/2024 2:00 PM EDT 15 mg Given 05/30/2024 5:34 AM EDT 15 mg Given 05/29/2024 8:59 PM EDT 15 mg labetaloL (Normodyne) (5 mg/mL) injection solution 10 mg 10 mg, Intravenous, ONCE, 1 dose, On Sun05/29/24 at 2030, Routine Given 05/29/2024 8:58 PM EDT 10 mg lactated ringers infusion 50 mL/hr, Intravenous, CONTINUOUS, Starting on Sun05/29/24 at 0630, Until Sun05/29/24 at 1455, Day [...] 40 mg, Intravenous, DAILY, First dose on Sun05/29/24 at 1515, Until Discontinued, Reconstitute with 10 [...] Wills RN)1315 (Due - Provider: Suzie Tom [facility]) acetaminophen (Ofirmev) (1,000 mg/100 mL) [...] Procedure), Routine 06 (Given - Provider: Barb Jimenez RN) celecoxib [...] 0545, Routine 1331 (Given - Provider: Justine Victoria, NIMCO)2058 (Given - Provider: Feli Wills RN) 0534 (Given - Provider: Feli Wills RN)1400 (Given - Provider: Lorena Mathias, NIMCO) labetaloL (Normodyne) (5 mg/mL) injection solution 10 [...] effective. 1408 (Given - Provider: Justine Victoria, NIMCO)2200 (Not Given - Provider: Feli Wills RN [...] 1632 1336 (New Bag - Provider: Justine Victoria, NIMCO)2103 (New Bag - Provider: Feli Wills, NIMCO) [...] Routine 1544 (Given - Provider: Pedro Craig RN)195 (Given - Provider: Feli Wills RN)1999 (Canceled [...] Routine documented in this encounter Care Teams Associate Professor Computer Science Relationship Specialty Start Date End Date Sonido Cordoba PA [address] [place] [address] PCP - General Family Medicine 07/06/20 documented as of this encounter
--- OUTSIDE RECORDS SUMMARY | 2024-10-25 13:22 | XMS_ITS | Encounter Summary ---
[place] [address] Care Team Providers Care Radiosonde Operator Name Role Phone Sonido Cordoba Primary Care Provider +1- [phone] Reason for Referral * Consultation (Routine) - Authorized Specialty Diagnoses / Procedures Referred By Aric madrigal Referred To Contact Orthopaedics Diagnoses Trigger thumb, left thumb Sonido Cordoba PA [address] [place] [address] [facility] [address] [place] [phone] Referral ID Status Reason Start Date Expiration Date Visits Requested Visits Authorized [id number] Authorized Consult, Test & Treat PCP Updated and/or Approved 06/09/2024 12/10/2024 6 6 Encounter Details Date Type Department Care Team (Latest Contact Info) Description 06/19/2024 Transcribe Orders eDH Incoming Referrals [phone] Sonido Cordoba PA [address] [place], [place] [id number] Trigger thumb, left thumb Social History Tobacco [...] 11/26/2024 8:45 AM [place] [phone] Keri Avila [address] [place] [address] 12/31/2024 10:00 AM EST Office [place] [phone] Mercy Amanda MD [facility] DR [facility] [address] 04/01/2025 2:00 PM EDT Office [place] [phone] Erum Szymanski MD [facility] [place] [address] Scheduled Referrals Name Type Priority Associated Diagnoses [...] a priority: - Eggs - Cheese - Estonian yogurt / cottage cheese - meat - [...] thumb documented in this encounter Care Teams Radiosonde Operator Relationship Specialty Start Date End Date Sonido Cordoba PA [address] [place] [address] PCP - General Family Medicine 07/06/20 documented as of this encounter
--- OUTSIDE RECORDS SUMMARY | 2024-10-25 13:23 | XMS_ITS | Encounter Summary ---
Author Organization [facility] [place] [address] Care Team Providers Care Machine Grainer Name Role Phone Sonido Cordoba Primary Care Provider +1- [phone] Encounter Details Date Type Department Care Team (Late st Contact Info) Description 12/10/2023 Telephone Psychiatry [place] [phone] Chrystal Metz, PhD [facility] [place] [address] Social History Tobacco Use Types Packs/Day Years [...] 11/26/2024 8:45 AM EST App[place] [phone] RubyDiamondKeri Sanches [address] [place] [address] 12/31/2024 10:00 AM EST Office [place] [phone] Mercy Amanda MD [facility] DR [facility] [address] 04/01/2025 2:00 PM EDT Office [place] [phone] Erum Szymanski MD [facility] [place] [address] documented as of this encounter Goals Goal [...] filedocumented in this encounter Care Teams Machine Grainer Relationship Specialty Start Date End Date Sonido Cordoba PA [address] [place] [address] PCP - General Family Medicine 07/06/20 documented as of this encounter
--- OUTSIDE RECORDS SUMMARY | 2024-10-25 13:23 | XMS_ITS | Encounter Summary ---
[place] [address] Care Team Providers Care Warp Tying Machine Tender Name Role Phone Sonido Cordoba Primary Care Provider +1- [phone] Encounter Details Date Type Department Care Team [...] 11/26/2024 8:45 AM [place] [address] Keri Avila [address] [place], [place] [address] 12/31/2024 10:00 AM EST Office [place] [address] Mercy Amanda MD [facility] [address] [facility] [place] [address] 04/01/2025 2:00 PM EDT Office Visit Gastroenterology at [facility] [place] [address] Erum Szymanski MD [facility] [place] [address] documented as of this encounter Goals Goal [...] a priority: - Eggs - Cheese - Samoan yogurt / cottage cheese - meat - fish - nuts/seeds - protein shake or bar Start with the protein, can choose to add other foods (would rather have you choose regular bread/ turkmen muffin, etc. - whole wheat if possible- [...] on filedocumented in this encounter Care Teams Warp Tying Machine Tender Relationship Specialty Start Date End Date Sonido Cordoba PA [address] [place] [address] PCP - General Family Medicine 07/06/20 documented as of this encounter
--- OUTSIDE RECORDS SUMMARY | 2024-10-25 13:23 | XMS_ITS | Encounter Summary ---
Author Organization [facility] [place] [address] Care Team Providers Care Qc Lab Technician Name Role Phone Sonido Cordoba Primary Care Provider +1- [phone] Encounter Details Date Type Department Care Team (Late st Contact Info) Description 12/20/2023 8:00 AM EST Office [place] [address] Dena Alexander, LIME SPREADER [facility] [place] [address] Belinda Heath, RD [facility] [place] [address] History of Tyesha fundoplication; BMI 45.0-49.9, adult; [...] this encounter Progress Notes * Dena Alexander, LIME SPREADER - 12/20/2023 8:00 AM EST Images from the original note were not included. [facility] Bariatric Surgery Evaluation Reason for consultation: Vianney [...] Has not attended a Introduction to the [facility] Bariatric Surgery Program seminar, a comprehensive two hour meeting that provides a program overview, education on bariatric surgeries offered at [facility], risks and benefits, as well as patient expectations and follow up. [facility] Bariatric Surgery Program Educational seminars viewed Bariatric Surgery Program evaluations with RD: Completed today Program start weight: 256 WT at visit #1: Wt & BMI By Encounter Date Flowsheet Row Office Visit from 12/10/2023 in Weight and Wellness at [facility] TH Visit (TeleHealth) from 10/08/2023 in Weight and Wellness at [facility] Weight 116.4 kg (256 lb 9.6 oz) [...] make it up to the top of [facility]. Patient has a hx tyesha fundoplication, [...] 3.66) performed by Erum Szymanski MD at [facility] ENDOSCOPY PRO COLONOSCOPY, BIOPSY N/A 09/04/2019 COLONOSCOPY FLEXIBLE, WITH BX (WRVU 3.66) performed by Steve Ji MD at [facility] ENDOSCOPY PRO COLONOSCOPY, DIAGNOSTIC N/A 09/04/2019 COLONOSCOPY, DIAGNOSTIC performed by Steve Ji MD at [facility] ENDOSCOPY PRO COLONOSCOPY, DIAGNOSTIC N/A 06/01/2023 COLONOSCOPY,SCREENING (WRVU 3.26) performed by Steve Ji MD at [facility] ENDOSCOPY PRO COLONOSCOPY, REMV LESN, SNARE N/A 08/21/2018 COLONOSCOPY, POLYPECTOMY, REMOVAL LESION BY SNARE (WRVU 4.67) performed by Erum Szymanski MD at [facility] ENDOSCOPY PRO CYSTO W URETEROSCOPY &/OR PYELOSCOPY, DX Right 06/01/2015 CYSTOURETEROSCOPY, DIAGNOSTIC performed by Darius Nuñez Jr., MD at [facility] MAIN OR PRO CYSTOSCOPY, INSERT URETERAL STENT Right 06/01/2015 CYSTO, STENT PLACEMENT performed by Darius Nuñez Jr., MD at [facility] MAIN OR PRO LAPAROSCOPY SURG ESOPHAGOGASTRIC FUNDOPLASTY N/A 04/05/2015 LAPAROSCOPIC TYESHA FUNDOPLASTY performed by Valentín Moura MD at [facility] MAIN OR PRO PERCUT DILATN RENAL TRACT Right 06/01/2015 PERCUTANEOUS INTRO GUIDE WIRE TO ACCESS RENAL PELVIS,AND OR URETER, W\DILATION performed by Darius Nuñez Jr., MD at [facility] MAIN OR PRO PERQ NL/PL LITHOTRIPSY SIMPLE UP TO 2 CM 1 LOCATION Right 06/01/2015 NEPHROLITHOTOMY, (PCNL) PERCUTANEOUS performed by Darius Nuñez Jr., MD at [facility] MAIN OR PRO REPAIR PERONEAL TENDONS Right 08/12/2020 PERONEAL TENDON REPAIR (WRVU 7.35) performed by Mani Jefferson MD at [facility] OSC PRO UPPER GI ENDOSCOPY, BIOPSY N/A 01/27/2015 EGD WITH BIOPSY performed by Brandt Barlow MD at [facility] ENDOSCOPY PRO UPPER GI ENDOSCOPY, BIOPSY N/A 02/28/2016 EGD WITH BIOPSY performed by Brandt Barlow MD at [facility] ENDOSCOPY PRO UPPER GI ENDOSCOPY, BIOPSY N/A 09/04/2016 EGD WITH BIOPSY performed by Brandt Barlow MD at [facility] ENDOSCOPY PRO UPPER GI ENDOSCOPY, BIOPSY N/A 09/24/2017 EGD WITH BIOPSY (WRVU 2.49) performed by Brandt Barlow MD at [facility] ENDOSCOPY PRO UPPER GI ENDOSCOPY, BIOPSY N/A 08/21/2018 EGD WITH BIOPSY (WRVU 2.49) performed by Erum Szymanski MD at [facility] ENDOSCOPY PRO UPPER GI ENDOSCOPY, BIOPSY N/A 09/04/2019 UPPER GASTROINTESTINAL ENDOSCOPY,WITH BIOPSY SINGLE OR MULTIPLE (WRVU 2.49) performed by Steve Ji MD at [facility] ENDOSCOPY PRO UPPER GI ENDOSCOPY, BIOPSY N/A 05/24/2021 EGD WITH BIOPSY (WRVU 2.49) performed by Kathy Carnes MD at [facility] ENDOSCOPY PRO UPPER GI ENDOSCOPY, BIOPSY N/A 06/01/2023 EGD WITH BIOPSY (WRVU 2.39) performed by Steve Ji MD at [facility] ENDOSCOPY PRO UPPER GI ENDOSCOPY, DIAGNOSTIC N/A 09/04/2019 EGD, UPPER GI ENDOSCOPY performed by Steve Ji MD at [facility] ENDOSCOPY TONSILLECTOMY Current Outpatient Medications: Phentermine [...] (3 yo)lives with her. 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 Lab data: Labs complete and up to date. 2. Psychological evaluation done by Juliette Lu PsyD, Weight and Wellness at [facility] : per Dr. Allen SERRANO WITH RECOMMENDATIONS [...] with her psychologist since her appt with [facility]. She feels her mood is good. She denies binge eating, night eating disorder, self-induced vomiting, laxative or diuretic use or excessive exercise to lose weight. 12/20/2023 8:17 AM [facility] Initial Responses PROMIS 10 Physical Scores [...] surgery to be successful. Patient understands the usp risks of vitamin deficiencies, internal hernias and [...] eating habits for life and will need long wall mining machine tender followup with the bariatric surgery program. 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. 3 children. Pt lives with 2 sons, granddaughter (pt has guardianship). Has SO, does not live with him. Social support: SO, children, mom, sister in [place] Hobbies: walking, hiking, fishing (allergy so can't [...] None Dental Concerns: None. Reported intake: Has [employer] Breakfast Breakfast Eggs (2), toast w/PB [...] quality of life, easier time climbing [place], has a lot of trails she'd like [...] Surgery 3 weeks post-op 4 months post-op [place] Body Weight (based on BMI of 25): 141 30-70% Excess Weight Loss: 176-222#; 50% Excess Weight Loss: 199# SUMMARY: Vianney Cordero has been referred for nutrition evaluation and diet instruction in anticipation of bariatric surgery. Previous conservative attempts at weight loss through dieting have been unsuccessful over the long wall mining machine tender. Predicted weight loss with surgery is an [...] with water. Advised pt to look for [employer] Breakfast Essentials Light Start as regular carnation [...] the class. Information given to patient: 1. [facility] Bariatric Surgery Education Handbook, a 102 page [...] 11/26/2024 8:45 AM EST [place] [phone] Keri Avila [address] [place] [address] 12/31/2024 10:00 AM EST Office [place] [address] Mercy Amanda MD [facility] [address] 04/01/2025 2:00 PM EDT Office [place] [address] Erum Szymanski MD [facility] [place] [address] documented as of this encounter Goals Goal [...] (would rather have you choose regular bread/ peruvian muffin, etc. - whole wheat if possible- [...] Contrast) (02/25/2024 8:40 AM EDT) WORKSTATION ID [id number] [facility] Anatomical Region Laterality Modality N/A Radio Fluoroscop [...] who have questions please contact the health managed care coordinator that requested your imaging first. ? Electronically signed by: Larry Wesley MD, [facility] ([phone]), at 02/25/2024 10:51 AM Narrative 02/25/2024 10:51 AM EDT EXAMINATION: XR [...] patients who have questions please contactthe health managed care coordinator that requested your imaging first. Electronically signed by: Larry Wesley MD, [facility]([phone]), at 02/25/2024 10:51 AM Chrystal Damon MD IMG FLUORO ORDERABL ES documented in this encounter Visit Diagnoses Diagnosis History of Tyesha fundoplication BMI 45.0-49.9, adult Body Mass Index 45.0-49.9, adult Encounter for pre-bariatric surgery counseling and education History of Tyesha fundoplication documented in this encounter Care Teams Qc Lab Technician Relationship Specialty Start Date End Date Sonido Cordoba PA [address] [place] [address] PCP - General Family Medicine 07/06/20 documented as of this encounter
--- OUTSIDE RECORDS SUMMARY | 2024-10-25 13:23 | XMS_ITS | Encounter Summary ---
[place] [address] Care Team Providers Care Supervisor Grounds Name Role Phone Sonido Cordoba Primary Care Provider +1- [phone] Encounter Details Date Type Department Care Team [...] 11/26/2024 8:45 AM EST Appointment [place] [address] Keri Avila [address] [place], [place] [address] 12/31/2024 10:00 AM EST Office [place] [address] Mercy Amanda MD [facility] [address] [place] [address] 04/01/2025 2:00 PM EDT Office Visit Gastroenterology at [facility] [place] [address] Erum Szymanski MD [facility] [place] [address] documented as of this encounter Goals Goal [...] a priority: - Eggs - Cheese - Malaysian yogurt / cottage cheese - meat - [...] filedocumented in this encounter Care Teams Supervisor Grounds Relationship Specialty Start Date End Date Sonido Cordoba PA [address] [place] [address] PCP - General Family Medicine 07/06/20 documented as of this encounter
--- OUTSIDE RECORDS SUMMARY | 2024-10-25 13:23 | XMS_ITS | Encounter Summary ---
[place] [address] Care Team Providers Care Power Tool Repairer Name Role Phone Sonido Cordoba Primary Care Provider +1- [phone] Encounter Details Date Type Department Care Team [...] 11/26/2024 8:45 AM EST [place] [address] Keri Avila [address] [place], [place] [address] 12/31/2024 10:00 AM EST Office [place] [address] Mercy Amanda MD [facility] [address] [place] [address] 04/01/2025 2:00 PM EDT Office Visit Gastroenterology at [facility] [place] [address] Erum Szymanski MD [facility] [address] documented as of this encounter Goals Goal [...] a priority: - Eggs - Cheese - Nauruan yogurt / cottage cheese - meat - [...] filedocumented in this encounter Care Teams Power Tool Repairer Relationship Specialty Start Date End Date Sonido Cordoba PA [address] [place] [address] PCP - General Family Medicine 07/06/20 documented as of this encounter
--- OUTSIDE RECORDS SUMMARY | 2024-10-25 13:23 | XMS_ITS | Encounter Summary ---
Author Organization [facility] [place] [address] Care Team Providers Care Steel Inspector Name Role Phone Sonido Cordoba Primary Care Provider +1- [phone] Encounter Details Date Type Department Care Team (Late st Contact Info) Description 11/23/2023 9:00 AM EST Office Visit Psychiatry [place] [address] Chrystal Metz, PhD [facility] [place] [address] Post-traumatic stress disorder, unspecified Social History Tobacco [...] included. INDIVIDUAL THERAPY PROGRESS NOTE CPT CODES 37653, 17965, 22479 LOCATION: Office SESSION DURATION: 45 minutes (52 [...] emergencies, call 988 from anywhere in the [facility]. State specific information for [place] and [place] crisis services are as follows and should be used to access local resources: [facility] Crises Services [facility] Crisis Line text or call Visit www.Digital Fuel for further information [place] Call your local scionhealth crisis line at: [place]: Counseling Service of [facility] [phone] [place]: [facility] Services [phone] [place]: [facility] [phone] [place]: Laci Garnavillo [phone] [place]: [facility] [phone] [place]eny Rios: [facility] Counseling and Support [phone] [place]: [facility] Mental Health [phone] on weekdays 8AM-4:30PM and [phone] on nights and weekends [place]: Kailyn Roy Garnavillo [place]: [facility] [phone] [place]: [facility] Services [phone] [place]: [facility] Services, [place]: HCRS [place]: HCRS or Text [place] to [phone] For further information for [place] residents: https://mentalhealth.[place].[facility]/services/emergency-services/yfp-wpo-yhct National Suicide Prevention Hotline: For patients cared for in the Department of Psychiatry, you can reach your mental health clinician at [phone]. Chrystal Metz, PhD documented in this encounter Plan of Treatment Upcoming Encounters Date Type Department Care Team (Late st Contact Info) Description 11/26/2024 8:45 AM EST Appointment [place] [address] Keri Avila [address] [place] [address] 12/31/2024 10:00 AM EST Office Visit Weight Center at [place] [phone] Mercy Amanda MD [facility] [address] [place] [address] 04/01/2025 2:00 PM EDT Office Visit Gastroenterology at [place] [phone] Erum Szymanski MD [facility] [place] [address] documented as of this encounter Goals Goal [...] (would rather have you choose regular bread/ vietnamese muffin, etc. - whole wheat if possible- [...] unspecified documented in this encounter Care Teams Steel Inspector Relationship Specialty Start Date End Date Sonido Cordoba PA [address] [place] [address] PCP - General Family Medicine 07/06/20 documented as of this encounter
--- OUTSIDE RECORDS SUMMARY | 2024-10-25 13:23 | XMS_ITS | Encounter Summary ---
Author Organization Replaced By [facility] [place] [address] Care Team Providers Care Casting Wheel Operator Helper Name Role Phone Sonido Cordoba Primary Care Provider +1- [phone] Encounter Details Date Type Department Care Team (Late st Contact Info) Description 12/10/2023 12:00 PM EST Office [place] [address] Mercy Amanda MD [facility] DR [facility] MEDICINE [place], [place] [address] Class 3 severe obesity with serious comorbidity [...] from the original note were not included. [facility] [place] Patient Name: Vianney Cordero Date of : [...] and comorbidities GERD/Barretts. This is Visit #12 [facility] visit for this 48 y.o. [...] weight 10/08/2023, 246 lbs 12/10/2023, 256 lbs [facility] Team: Priti Skinner RD and Erik Sorenson, Health Deburring Technician HPI GREEN light! Needs to call BS [...] above intact Addie; bx negative for dysplasia [place] 05/2023: WNL Mammo [facility] - in media Pt will get PE/Pap report from [facility] - dropped off - will scan in [...] B/L. AOM HX: NO AOMs covered by [place] Medicaid C/I: GB? NO s/p lap CCY [...] sooner if she wishes. 10/06/2021 7:00 PM [facility] PATHWAY - ADULT Obesity Medicine [...] a priority: - Eggs - Cheese - Maltese yogurt / cottage cheese - meat - [...] Vitals: 12/10/23 1206 BP: 154/84 BP Location ([facility]): Right arm Patient Position: Sitting BP Cuff [...] 114 11/07/2023 Lab Results Component Value Date [id number] 11/07/2023 25-OH Vit D Total (ng/mL) [...] months. 1 min chart review 25 min [id number] Visit time 5 min Documentation time I [...] 11/26/2024 8:45 AM EST Appointment Ultrasound at [address] Keri Avila [address] [address] 12/31/2024 10:00 AM EST Office Visit Weight Center at [address] Mercy Amanda MD [facility] [address] [facility] [address] 04/01/2025 2:00 PM EDT Office Visit Gastroenterology at [place] [phone] Erum Szymanski MD [facility] [place] [address] documented as of this encounter Goals Goal Patient Goal Type Associated Problems Recent Progress Patient-Stated? Author continue to track in an mkia Lifestyle Asha Chung MD Note: Try goal [...] a priority: - Eggs - Cheese - Maltese yogurt / cottage cheese - meat - [...] education documented in this encounter Care Teams Casting Wheel Operator Helper Relationship Specialty Start Date End Date Sonido Cordoba PA [address] [place] [address] PCP - General Family Medicine 07/06/20 documented as of this encounter
--- OUTSIDE RECORDS SUMMARY | 2024-10-25 13:23 | XMS_ITS | Encounter Summary ---
Author Organization Formerly [facility], [facility] [place] [address] Care Team Providers Care Health Care Technician Name Role Phone Sonido Cordoba Primary Care Provider +1- [phone] Encounter Details Date Type Department Care Team (Latest Contact Info) Description 04/02/2024 2:00 PM EDT Office [place] [phone] Erum Szymanski MD [facility] [place] [address] Gastroesophageal reflux disease without esophagitis; Rodgers's esophagus [...] Szymanski MD - 04/02/2024 2:00 PM EDT [facility] Section of Gastroenterology and Hepatology Follow-Up Visit PCP: WANDY Aguilera HPI This is a 48 y.o. female with with obesity following up for GERD and RUQ pain. 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 GI PROBLEMS: 1. GERD with long segment [...] to eating, while working. Work is at [employer]. She is grocery shopping for folks, moving [...] 05/2023 long segment Rodgers's, no dysplasia 15. Mcclure 06/01/2023 normal Patient Active Problem List Diagnosis [...] by Erum Szymanski MD at [facility] ENDOSCOPY PRO COLONOSCOPY, BIOPSY N/A 09/04/2019 COLONOSCOPY FLEXIBLE, WITH BX (WRVU 3.66) performed by Steve Ji MD at [facility] ENDOSCOPY PRO COLONOSCOPY, DIAGNOSTIC N/A 09/04/2019 COLONOSCOPY, DIAGNOSTIC performed by Steve Ji MD at [facility] ENDOSCOPY PRO COLONOSCOPY, DIAGNOSTIC N/A 06/01/2023 COLONOSCOPY,SCREENING (WRVU 3.26) performed by Steve Ji MD at [facility] ENDOSCOPY PRO COLONOSCOPY, REMV LESN, SNARE N/A 08/21/2018 COLONOSCOPY, POLYPECTOMY, REMOVAL LESION BY SNARE (WRVU 4.67) performed by Erum Szymanski MD at [facility] ENDOSCOPY PRO CYSTO W URETEROSCOPY &/OR PYELOSCOPY, DX Right 06/01/2015 CYSTOURETEROSCOPY, DIAGNOSTIC performed by Darius Nuñez Jr., MD at [facility] MAIN OR PRO CYSTOSCOPY, INSERT URETERAL STENT Right 06/01/2015 CYSTO, STENT PLACEMENT performed by Darius Nuñez Jr., MD at [facility] MAIN OR PRO LAPAROSCOPY SURG ESOPHAGOGASTRIC FUNDOPLASTY N/A 04/05/2015 LAPAROSCOPIC TYESHA FUNDOPLASTY performed by Valentín Moura MD at [facility] MAIN OR PRO PERCUT DILATN RENAL TRACT Right 06/01/2015 PERCUTANEOUS INTRO GUIDE WIRE TO ACCESS RENAL PELVIS,AND OR URETER, W\DILATION performed by Darius Nuñez Jr., MD at [facility] MAIN OR PRO PERQ NL/PL LITHOTRIPSY SIMPLE UP TO 2 CM 1 LOCATION Right 06/01/2015 NEPHROLITHOTOMY, (PCNL) PERCUTANEOUS performed by Darius Nuñez Jr., MD at [facility] MAIN OR PRO REPAIR PERONEAL TENDONS Right 08/12/2020 PERONEAL TENDON REPAIR (WRVU 7.35) performed by Mani Jefferson MD at [facility] OSC PRO UPPER GI ENDOSCOPY, BIOPSY N/A 01/27/2015 EGD WITH BIOPSY performed by Brandt Barlow MD at [facility] ENDOSCOPY PRO UPPER GI ENDOSCOPY, BIOPSY N/A 02/28/2016 EGD WITH BIOPSY performed by Brandt Barlow MD at [facility] ENDOSCOPY PRO UPPER GI ENDOSCOPY, BIOPSY N/A 09/04/2016 EGD WITH BIOPSY performed by Brandt Barlow MD at [facility] ENDOSCOPY PRO UPPER GI ENDOSCOPY, BIOPSY N/A 09/24/2017 EGD WITH BIOPSY (WRVU 2.49) performed by Brandt Barlow MD at [facility] ENDOSCOPY PRO UPPER GI ENDOSCOPY, BIOPSY N/A 08/21/2018 EGD WITH BIOPSY (WRVU 2.49) performed by Erum Szymanski MD at [facility] ENDOSCOPY PRO UPPER GI ENDOSCOPY, BIOPSY N/A 09/04/2019 UPPER GASTROINTESTINAL ENDOSCOPY,WITH BIOPSY SINGLE OR MULTIPLE (WRVU 2.49) performed by Steve Ji MD at [facility] ENDOSCOPY PRO UPPER GI ENDOSCOPY, BIOPSY N/A 05/24/2021 EGD WITH BIOPSY (WRVU 2.49) performed by Kathy Carnes MD at [facility] ENDOSCOPY PRO UPPER GI ENDOSCOPY, BIOPSY N/A 06/01/2023 EGD WITH BIOPSY (WRVU 2.39) performed by Steve Ji MD at [facility] ENDOSCOPY PRO UPPER GI ENDOSCOPY, DIAGNOSTIC N/A 09/04/2019 EGD, UPPER GI ENDOSCOPY performed by Steve Ji MD at [facility] ENDOSCOPY TONSILLECTOMY Social History Socioeconomic History [...] Erum Szymanski MD 04/02/24 Erum Szymanski MD Manager Biostatisticslidding machine operator Section of Gastroenterology and Hepatology [facility] [email or web address] ([email or web address]) documented in this encounter Plan of Treatment Upcoming Encounters Date Type Department Care Team (Late st Contact Info) Description 11/26/2024 8:45 AM [place] [phone] Keri Avila [address] [place] [address] 12/31/2024 10:00 AM EST [place] [address] Mercy Amanda MD [facility] [address] [facility] [address] 04/01/2025 2:00 PM EDT Office Visit Gastroenterology at [facility] [place] [address] Erum Szymanski MD [facility] [place] [address] documented as of this encounter Goals Goal [...] esophagus documented in this encounter Care Teams Health Care Technician Relationship Specialty Start Date End Date Sonido Cordoba PA [address] [place] [address] PCP - General Family Medicine 07/06/20 documented as of this encounter
--- OUTSIDE RECORDS SUMMARY | 2024-10-25 13:23 | XMS_ITS | Encounter Summary ---
Author Organization Formerly [facility], 1927–[address] [place] [address] Care Team Providers Care Celery Stripper Name Role Phone Sonido Cordoba Primary Care Provider +1- [phone] Reason for Visit * Reason Onset Date Comments Medication Refill 04/16/2024 Encounter Details Date Type Department Care Team (Late st Contact Info) Description 04/16/2024 [place] [address] Mercy Amanda MD [facility] [address] [place] [address] Class 3 severe obesity with serious comorbidity [...] 11/26/2024 8:45 AM [place] [address] RubyDiamondKeri Sanches [address] [place] [address] 12/31/2024 10:00 AM EST Office [place] [address] Mercy Amanda MD [facility] [address] [place] [facility] [address] 04/01/2025 2:00 PM EDT Office [place] [address] Erum Szymanski MD [facility] [place] [address] documented as of this encounter Goals Goal [...] type documented in this encounter Care Teams Celery Stripper Relationship Specialty Start Date End Date Sonido Cordoba PA [address] [place] [address] PCP - General Family Medicine 07/06/20 documented as of this encounter
--- OUTSIDE RECORDS SUMMARY | 2024-10-25 13:23 | XMS_ITS | Encounter Summary ---
[place] [address] Care Team Providers Care Carton Forming Machine Tender Name Role Phone Sonido Cordoba Primary Care Provider +1- [phone] Reason for Visit * Auth/Cert (Routine) Specialty Diagnoses / Procedures Referred By Aric t Referred To Contact Diagnoses Morbid Obesity Procedures PRO LAP GASTRIC BYPASS/ELVIE-EN-Y PRO UPPER GI ENDOSCOPY, DIAGNOSTIC PRO UNLISTED LAPAROSCOPIC PROCEDURE ESOPHAGUS @LAPAROSCOPIC GASTROPLASTY W/ ELVIE-EN-Y CONSTRUCTION (WRVU 29.4) EGD, UPPER GI ENDOSCOPY (WRVU 2.09) LAPAROSCOPIC TAKEDOWN PREVIOUS TYESHA (WRVU 48.75) Chrystal Damon MD [facility] [place] [address] [facility] Referral ID Status Reason Start Date Expiration Date Visits Re quested Visits Authorized [id number] 1 1 Encounter Details Date Type Department Care Team (Late st Contact Info) Description 05/29/2024 7:36 AM EDT Anesthesia Event [place] [phone] Pari Grullon MD [facility] [place] [address] Demond Salgado Anesthesia Record Procedure Summary Procedure [...] for questions and acknowledgement of understanding Tip INSIDE SALES PERSON 0859 Break/Relief In I assumed ca re [...] Type Details Placement Removal PIV 05/29/24; 644; [id number] catheter system; 22 gauge; metacarpal vein (top [...] Procedure Summary Date: 05/29/24 Room / Location: [facility] OR [address] [place] [address] MAIN OR Anesthesia Start: 735 Anesthesia Stop: 1307 Procedures: @LAPAROSCOPIC GASTROPLASTY W/ ELVIE-EN-Y CONSTRUCTION (WRVU 29.4) (Abdomen) EGD, UPPER GI ENDOSCOPY (WRVU 2.09) LAPAROSCOPIC TAKEDOWN PREVIOUS TYESHA (WRVU 48.75) (Abdomen) MODIFIER, HIATAL HERNIA Diagnosis: (Morbid Obesity) Surgeons: Chrystal Damon MD Responsible Provider: Pari Grullon MD Anesthesia Type: general ASA Status: 2 All Anesthesia Providers: Anesthesiologist: Pari Grullon MD Appellate Conferee: Filiberto Castro MD Vitals Value Taken Time BP 155/97 05/29/24 1303 Temp Pulse 89 05/29/24 1311 Resp 20 05/29/24 1311 SpO2 97 % 05/29/24 1311 Pain Level Vitals shown include unfiled device data. Patient Location: PACU/[facility] Level of Consciousness: Awake and Alert [...] 3.66) performed by Erum Szymanski MD at [facility] ENDOSCOPY ??? PRO COLONOSCOPY, BIOPSY N/A 09/04/2019 COLONOSCOPY FLEXIBLE, WITH BX (WRVU 3.66) performed by Steve Ji MD at [facility] ENDOSCOPY ??? PRO COLONOSCOPY, DIAGNOSTIC N/A 09/04/2019 COLONOSCOPY, DIAGNOSTIC performed by Steve Ji MD at [facility] ENDOSCOPY ??? PRO COLONOSCOPY, DIAGNOSTIC N/A 06/01/2023 COLONOSCOPY,SCREENING (WRVU 3.26) performed by Steve Ji MD at [facility] ENDOSCOPY ??? PRO COLONOSCOPY, REMV LESN, SNARE N/A 08/21/2018 COLONOSCOPY, POLYPECTOMY, REMOVAL LESION BY SNARE (WRVU 4.67) performed by Erum Szymanski MD at [facility] ENDOSCOPY ? ? PRO CYSTO W URETEROSCOPY &/OR PYELOSCOPY, DX Right 06/01/2015 CYSTOURETEROSCOPY, DIAGNOSTIC performed by Darius Nuñez Jr., MD at [facility] MAIN OR ??? PRO CYSTOSCOPY, INSERT URETERAL STENT Right 06/01/2015 CYSTO, STENT PLACEMENT performed by Darius Nuñez Jr., MD at [facility] MAIN OR ??? PRO LAPAROSCOPY SURG ESOPHAGOGASTRIC FUNDOPLASTY N/A 04/05/2015 LAPAROSCOPIC TYESHA FUNDOPLASTY performed by Valentín Moura MD at [facility] MAIN OR ??? PRO PERCUT DILATN RENAL TRACT Right 06/01/2015 PERCUTANEOUS INTRO GUIDE WIRE TO ACCESS RENAL PELVIS,AND OR URETER, W\DILATION performed by Darius Nuñez Jr., MD at [facility] MAIN OR ??? PRO PERQ NL/PL LITHOTRIPSY SIMPLE UP TO 2 CM 1 LOCATION Right 06/01/2015 NEPHROLITHOTOMY, (PCNL) PERCUTANEOUS performed by Darius Nuñez Jr., MD at [facility] MAIN OR ??? PRO REPAIR PERONEAL TENDONS Right 08/12/2020 PERONEAL TENDON REPAIR (WRVU 7.35) performed by Mani Jefferson MD at [facility] OSC ??? PRO UPPER GI ENDOSCOPY, BIOPSY N/A 01/27/2015 EGD WITH BIOPSY performed by Brandt Barlow MD at [facility] ENDOSCOPY ??? PRO UPPER GI ENDOSCOPY, BIOPSY N/A 02/28/2016 EGD WITH BIOPSY performed by Brandt Barlow MD at [facility] ENDOSCOPY ??? PRO UPPER GI ENDOSCOPY, BIOPSY N/A 09/04/2016 EGD WITH BIOPSY performed by Brandt Barlow MD at [facility] ENDOSCOPY ??? PRO UPPER GI ENDOSCOPY, BIOPSY N/A 09/24/2017 EGD WITH BIOPSY (WRVU 2.49) performed by Brandt Barlow MD at [facility] ENDOSCOPY ??? PRO UPPER GI ENDOSCOPY, BIOPSY N/A 08/21/2018 EGD WITH BIOPSY (WRVU 2.49) performed by Erum Szymanski MD at [facility] ENDOSCOPY ??? PRO UPPER GI ENDOSCOPY, BIOPSY N/A 09/04/2019 UPPER GASTROINTESTINAL ENDOSCOPY,WITH BIOPSY SINGLE OR MULTIPLE (WRVU 2.49) performed by Steve Ji MD at [facility] ENDOSCOPY ??? PRO UPPER GI ENDOSCOPY, BIOPSY N/A 05/24/2021 EGD WITH BIOPSY (WRVU 2.49) performed by Kathy Carnes MD at [facility] ENDOSCOPY ??? PRO UPPER GI ENDOSCOPY, BIOPSY N/A 06/01/2023 EGD WITH BIOPSY (WRVU 2.39) performed by Steve Ji MD at [facility] ENDOSCOPY ??? PRO UPPER GI ENDOSCOPY, DIAGNOSTIC N/A 09/04/2019 EGD, UPPER GI ENDOSCOPY performed by Steve Ji MD at [facility] ENDOSCOPY ??? TONSILLECTOMY Social History Tobacco [...] monitoring PIV access Filiberto Castro MD 05/28/2024 patient transportation driver (Yadi): chart reviewed and patient interviewed and examined in SDA prior to procedure. Agree with resident note and plan. Add that patient is NPO>8h (meds with sips of water), did not take the GLP-1 (insurance did not pay for it). States she could not be . No complications with prior anesthesia. 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 Region - Other Informed Consent: Anesthetic plan and risks discussed with patient. Plan discussed with resident. Anesthesia Screening documented in this encounter Plan of Treatment Upcoming Encounters Date Type Department Care Team (Late st Contact Info) Description 11/26/2024 8:45 AM EST Appointment Ultrasound at [place] [phone] Keri Avila [address] [place] [address] 12/31/2024 10:00 AM EST Office Visit Weight Center at [place] [phone] Mercy Amanda MD [facility] [address] [facility] [address] 04/01/2025 2:00 PM EDT Office Visit [place] [address] Erum Szymanski MD [facility] [place] [address] documented as of this encounter Goals Goal [...] a priority: - Eggs - Cheese - Welsh yogurt / cottage cheese - meat - fish - nuts/seeds - protein shake or bar Start with the protein, can choose to add other foods (would rather have you choose regular bread/ cuban muffin, etc. - whole wheat if possible- [...] mg/mL) multi-dose injection Intravenous, PRN, Starting on Rbittny 05/29/24 at 0736, Until Brittny 05/29/24 at [...] mg documented in this encounter Care Teams Carton Forming Machine Tender Relationship Specialty Start Date End Date Sonido Cordoba PA [address] [place] [address] PCP - General Family Medicine 07/06/20 documented as of this encounter
--- OUTSIDE RECORDS SUMMARY | 2024-10-25 13:23 | XMS_ITS | Encounter Summary ---
Author Organization [facility] [place] [address] Care Team Providers Care Assistant Grocery Name Role Phone Sonido Cordoba Primary Care Provider +1- [phone] Encounter Details Date Type Department Care Team (Late st Contact Info) Description 12/10/2023 1:00 PM EST Office Visit Psychiatry [place] [address] Chrystal Metz, PhD [facility] [place] [address] PATIENT NOT SEEN Social History Tobacco Use [...] 11/26/2024 8:45 AM EST [place] [phone] Keri Avila [address] [place] [address] 12/31/2024 10:00 AM EST Office [place] [address] Mercy Amanda MD [facility] [address] [facility] [address] 04/01/2025 2:00 PM EDT Office [place] [phone] Erum Szymanski MD [facility] [place] [address] documented as of this encounter Goals Goal [...] SEEN documented in this encounter Care Teams Assistant Grocery Relationship Specialty Start Date End Date Sonido Cordoba PA [address] [place] [address] PCP - General Family Medicine 07/06/20 documented as of this encounter
--- OUTSIDE RECORDS SUMMARY | 2024-10-25 13:23 | XMS_ITS | Encounter Summary ---
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 documented in this encounter Plan of Treatment Upcoming Encounters Date Type Department Care Team (Late st Contact Info) Description 11/26/2024 8:45 AM EST Appointment [place] [address] Keri Avila [address] [place] [phone] 12/31/2024 10:00 AM EST Office [place] [address] Mercy Amanda MD [facility] [address] [facility] [address] 04/01/2025 2:00 PM EDT Office [place] [address] Erum Szymanski MD [facility] [place] [address] documented as of this encounter [...] (would rather have you choose regular bread/ syriac muffin, etc. - whole wheat if possible- [...] Primary documented in this encounter Care Teams Web Operations Lead Relationship Specialty Start Date End Date Sonido Cordoba PA [address] [place] [address] PCP - General Family Medicine 07/06/20 documented as of this encounter
--- OUTSIDE RECORDS SUMMARY | 2024-10-25 13:23 | XMS_ITS | Encounter Summary ---
[place] [address] Care Team Providers Care Senior Web Analyst Name Role Phone Sonido Cordoba Primary Care Provider +1- [phone] Encounter Details Date Type Department Care Team [...] 11/26/2024 8:45 AM EST Appointment [place] [address] Keri Avila [address] [place] [address] 12/31/2024 10:00 AM EST Office [place] [address] Mercy Amanda MD [facility] DR [facility] [address] 04/01/2025 2:00 PM EDT Office Visit Gastroenterology at [facility] [place] [address] Erum Szymanski MD [facility] [place] [address] documented as of this encounter Goals Goal [...] (would rather have you choose regular bread/ czech muffin, etc. - whole wheat if possible- [...] on filedocumented in this encounter Care Teams Senior Web Analyst Relationship Specialty Start Date End Date Sonido Cordoba PA [address] [place] [address] PCP - General Family Medicine 07/06/20 documented as of this encounter
--- OUTSIDE RECORDS SUMMARY | 2024-10-25 13:23 | XMS_ITS | Encounter Summary ---
[place] [address] Care Team Providers Care Chemical Laboratory Technician Name Role Phone Sonido Cordoba Primary Care Provider [phone] Reason for Visit * Auth/Cert (Routine) Specialty Diagnoses / Procedures Referred By Aric madrigal Referred To Contact Diagnoses Morbid Obesity Procedures PRO LAP GASTRIC BYPASS/ELVIE-EN-Y PRO UPPER GI ENDOSCOPY, DIAGNOSTIC PRO UNLISTED LAPAROSCOPIC PROCEDURE ESOPHAGUS @LAPAROSCOPIC GASTROPLASTY W/ ELVIE-EN-Y CONSTRUCTION (WRVU 29.4) EGD, UPPER GI ENDOSCOPY (WRVU 2.09) LAPAROSCOPIC TAKEDOWN PREVIOUS TYESHA (WRVU 48.75) Ladan Damon MD [facility] [place] [address] [place] Referral ID Status Reason Start Date Expiration Date Visits Re quested Visits Authorized [id number] 1 1 Encounter Details Date Type Department Care Team (Late st Contact Info) Description 05/29/2024 7:30 AM EDT - 05/29/2024 12:15 PM EDT [place] [id number] Ladan Damon MD [facility] [place] [address] @LAPAROSCOPIC GASTROPLASTY W/ ELVIE-EN-Y CONSTRUCTION (WRVU 29.4) [...] RD; Dena Alexander APRN General Surgery at [facility] Arrive at: Senior Insight Manager Area [phone] Please dispose of unused excess opioids before your appointment or bring them with you to the appointment and we will help you dispose of them correctly. 09/19/2024 10:[address]; Dena Alexander APRN General Surgery at [facility] Arrive at: Senior Insight Manager Area [phone] 12/08/2024 10:30 AM Mercy Amanda MD Weight and Wellness at [facility] Arrive at: Senior Insight Manager Area [phone] 04/01/2025 2:00 PM Erum Szymanski MD Gastroenterology at [facility] Arrive at: Senior Insight Manager Area [phone] Instructions Given to Patient at Discharge: Patient Instructions Discharge Instructions - Bariatric Surgery NEW PRESCRIPTIONS: supervisor testing at [facility] today: Zofran (ondansetron), gabapentin, liquid [...] - 5pm): General Surgery and Bariatric Surgery [phone] Bariatric Surgeons: Jeremy Meléndez Trus [phone] Edge Runner: [phone] Dietitians: [phone] Outside of regular business hours, including weekends and holidays: Ask for General Surgery resident cushion assembler [phone] Please note, this call will be answered [...] Surgery Team in 3 weeks at the [facility] (Senior Insight Manager 4L, [facility]). Future Appointments Date Time Provider Department Center 06/20/2024 12:30 PM Dena Alexander APRN [facility] SURG [facility] 09/19/2024 10:00 AM Dena Alexander APRN [facility] SURG [facility] 12/08/2024 10:30 AM Mercy Amanda MD [facility] WEIGHT [facility] 04/01/2025 2:00 PM Erum Szymanski MD [facility] GASTRO [facility] WOUND CARE You have liquid dressing over [...] twice daily. Please call or send a [employer] message if you do not have a [...] Follow up with primary care provider or video conference specialist in 1-2 weeks in order to [...] RD; Dena Alexander APRN General Surgery at [facility] Arrive at: Senior Insight Manager Area [phone] Please dispose of unused excess opioids before your appointment or bring them with you to the appointment and we will help you dispose of them correctly. 09/19/2024 10:[address]; Dena Alexander APRN General Surgery at [facility] Arrive at: Senior Insight Manager Area [phone] 12/08/2024 10:30 AM Mercy Amanda MD Weight and Wellness at [facility] Arrive at: Senior Insight Manager Area [phone] 04/01/2025 2:00 PM Erum Szymanski MD Gastroenterology at [facility] Arrive at: Senior Insight Manager Area [phone] Signed: Elly Zuleta MD [facility] Physician: WANDY Aguilera [address] / [facility] [id number] documented in this encounter Discharge Instructions * Patient Instructions* Crystal Mendez PA - 05/21/2024 11:25 AM EDT Images from the original note were not included. Discharge Instructions - Bariatric Surgery NEW PRESCRIPTIONS: supervisor testing at [facility] today: Zofran (ondansetron), gabapentin, liquid [...] - 5pm): General Surgery and Bariatric Surgery [phone] Bariatric Surgeons: Jeremy Meléndez Trus [phone] Edge Runner: [phone] Dietitians: [phone] Outside of regular business hours, including weekends and holidays: Ask for General Surgery resident cushion assembler [phone] Please note, this call will be answered [...] Surgery Team in 3 weeks at the [facility] (Senior Insight Manager 4, [facility]). Future Appointments Date Time Provider Department Center 06/20/2024 12:30 PM Dena Alexander APRN [facility] SURG [facility] 09/19/2024 10:00 AM Dena Alexander APRN [facility] SURG [facility] 12/08/2024 10:30 AM Mercy Amanda MD [facility] WEIGHT [facility] 04/01/2025 2:00 PM Erum Szymanski MD [facility] GASTRO [facility] WOUND CARE You have liquid dressing over [...] twice daily. Please call or send a [employer] message if you do not have a [...] Follow up with primary care provider or video conference specialist in 1-2 weeks in order to [...] 03/25/2024 pantoprazole EC (Protonix) [address] tabletIndications:Hollywood tt's esophagus without dysplasia,Gastroesophag eal reflux disease [...] Visit from 03/06/2024 in General Surgery at [facility] Office Visit from 02/04/2024 in Weight and Wellness at [facility] Weight 109.9 kg (242 lb 4.8 oz) 1 03/06/2024 1254 113.3 kg (249 lb 12.8 oz) 1 02/04/2024 1626 BMI -- 44.15 1 02/04/2024 1626 Discussion of treatment of obesity and of the [facility] Bariatric Surgery Program: Vianney Cordero is aware that other treatments for obesity are available, ie, dietary, behavior modification, weight loss medications, exercise as well as surgical weight loss methods. The risks and benefits of bariatric surgery, including gastric bypass and sleeve gastrectomy are discussed at every Introduction to the [facility] Bariatric Surgery Program meeting and all Educational [...] surgery to be successful. She understands the retirement risks of vitamin deficiencies, internal hernias and [...] loss encouraged - Given a surgery date [facility] Bariatric Surgery Evaluation Follow Up Patient's [...] Has not attended a Introduction to the [facility] Bariatric Surgery Program seminar, a comprehensive two hour meeting that provides a program overview, education on bariatric surgeries offered at [facility], risks and benefits, as well as patient expectations and follow up. [facility] Bariatric Surgery Program Educational seminars viewed Bariatric Surgery Program evaluations with RD: Completed today Program start weight: 256 WT at visit #1: Wt & BMI By Encounter Date Flowsheet Row Office Visit from 03/06/2024 in General Surgery at [facility] Office Visit from 02/04/2024 in Weight and Wellness at [facility] Weight 109.9 kg (242 lb 4.8 oz) [...] make it up to the top of [facility]. Patient has a hx tyesha fundoplication, [...] 3.66) performed by Erum Szymanski MD at [facility] ENDOSCOPY PRO COLONOSCOPY, BIOPSY N/A 09/04/2019 COLONOSCOPY FLEXIBLE, WITH BX (WRVU 3.66) performed by Steve Ji MD at [facility] ENDOSCOPY PRO COLONOSCOPY, DIAGNOSTIC N/A 09/04/2019 COLONOSCOPY, DIAGNOSTIC performed by Steve Ji MD at [facility] ENDOSCOPY PRO COLONOSCOPY, DIAGNOSTIC N/A 06/01/2023 COLONOSCOPY,SCREENING (WRVU 3.26) performed by Steve Ji MD at [facility] ENDOSCOPY PRO COLONOSCOPY, REMV LESN, SNARE N/A 08/21/2018 COLONOSCOPY, POLYPECTOMY, REMOVAL LESION BY SNARE (WRVU 4.67) performed by Erum Szymanski MD at [facility] ENDOSCOPY PRO CYSTO W URETEROSCOPY &/OR PYELOSCOPY, DX Right 06/01/2015 CYSTOURETEROSCOPY, DIAGNOSTIC performed by Darius Nuñez Jr., MD at [facility] MAIN OR PRO CYSTOSCOPY, INSERT URETERAL STENT Right 06/01/2015 CYSTO, STENT PLACEMENT performed by Darius Nuñez Jr., MD at [facility] MAIN OR PRO LAPAROSCOPY SURG ESOPHAGOGASTRIC FUNDOPLASTY N/A 04/05/2015 LAPAROSCOPIC TYESHA FUNDOPLASTY performed by Valentín Moura MD at [facility] MAIN OR PRO PERCUT DILATN RENAL TRACT Right 06/01/2015 PERCUTANEOUS INTRO GUIDE WIRE TO ACCESS RENAL PELVIS,AND OR URETER, W\DILATION performed by Darius Nuñez Jr., MD at [facility] MAIN OR PRO PERQ NL/PL LITHOTRIPSY SIMPLE UP TO 2 CM 1 LOCATION Right 06/01/2015 NEPHROLITHOTOMY, ([facility]) PERCUTANEOUS performed by Darius Nuñez Jr., MD at [facility] MAIN OR PRO REPAIR PERONEAL TENDONS Right 08/12/2020 PERONEAL TENDON REPAIR (WRVU 7.35) performed by Mani Jefferson MD at [facility] OSC PRO UPPER GI ENDOSCOPY, BIOPSY N/A 01/27/2015 EGD WITH BIOPSY performed by Brandt Barlow MD at [facility] ENDOSCOPY PRO UPPER GI ENDOSCOPY, BIOPSY N/A 02/28/2016 EGD WITH BIOPSY performed by Brandt Barlow MD at [facility] ENDOSCOPY PRO UPPER GI ENDOSCOPY, BIOPSY N/A 09/04/2016 EGD WITH BIOPSY performed by Brandt Barlow MD at [facility] ENDOSCOPY PRO UPPER GI ENDOSCOPY, BIOPSY N/A 09/24/2017 EGD WITH BIOPSY (WRVU 2.49) performed by Brandt Barlow MD at [facility] ENDOSCOPY PRO UPPER GI ENDOSCOPY, BIOPSY N/A 08/21/2018 EGD WITH BIOPSY (WRVU 2.49) performed by Erum Szymanski MD at [facility] ENDOSCOPY PRO UPPER GI ENDOSCOPY, BIOPSY N/A 09/04/2019 UPPER GASTROINTESTINAL ENDOSCOPY,WITH BIOPSY SINGLE OR MULTIPLE (WRVU 2.49) performed by Steve Ji MD at [facility] ENDOSCOPY PRO UPPER GI ENDOSCOPY, BIOPSY N/A 05/24/2021 EGD WITH BIOPSY (WRVU 2.49) performed by Kathy Carnes MD at [facility] ENDOSCOPY PRO UPPER GI ENDOSCOPY, BIOPSY N/A 06/01/2023 EGD WITH BIOPSY (WRVU 2.39) performed by Steve Ji MD at [facility] ENDOSCOPY PRO UPPER GI ENDOSCOPY, DIAGNOSTIC N/A 09/04/2019 EGD, UPPER GI ENDOSCOPY performed by Steve Ji MD at [facility] ENDOSCOPY TONSILLECTOMY Current Medications Current [...] granddaughter (2 yo)lives with her. 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 Lab data: Labs complete and up to date. 2. Psychological evaluation done by Juliette Lu PsyD, Weight and Wellness at [facility] : per Dr. Allen SERRANO WITH RECOMMENDATIONS [...] Plan for patient to follow up with [facility] Psychology 2 months post op. She denies binge eating, night eating disorder, self-induced vomiting, laxative or diuretic use or excessive exercise to lose weight. 12/20/2023 8:17 AM [facility] Initial Responses PROMIS 10 Physical Scores [...] surgery to be successful. 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 Patient realizes the need for life long follow up with the bariatric surgery program and understands the importance of the preoperative diet in terms of safety and ability to perform the procedure. Consent was reviewed or signed today. Mental health - Patient was seen in 5D x2 and has discussed with [facility] psychology with plan to see [facility] provider 2 months post op. Eating behaviors and readiness for surgery- Reviewed importance of continuing to work on strategiesto help manage behaviors. Recommend tracking ([employer]) and measuring food. Goals of 60 [...] surrogate would be surrogate decision maker per [place] surrogate decision making law. (Only good for 180 days) Any patient receiving care in [place] must abide by [place] law. The hierarchy for surrogate decision making is: (a) Patient???s spouse or civil union partner unless there is a divorce proceeding, separation agreement, or restraining order limiting that person???s relationship with the patient. (b) Any adult son or daughter of the patient. Barrie Carcamo, child [phone] (c) Either parent of the patient. (d) Any adult brother or sister of the patient. (e) Any adult grandchild of the patient. (f) Any grandparent of the patient. (g) Any adult aunt, uncle, niece, or nephew of the patient. (h) A close friend of the patient. (i) The agent with financial power of business attorney or a conservator appointed in accordance with RSA 464-A. (j) The guardian of the patient???s estate. 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 Resource / Environmental Concerns: Home Address listed as: [address] [place] [phone] Social & Family Supports: All names listed below confirmed with patient as current and correct Extended Emergency Contact Information Primary Emergency Contact: Michael Lomeli Address: [address] [place] [phone] [facility] Mobile Relation: Significant Other Secondary Emergency Contact: Jyotsna Cordero Address: [address] [facility] Relation: Mother Substance Use/Abuse listed: Social History [...] N/A ; Prescription Coverage: Yes Preferred Pharmacy: [id number] - [place], [place] - [address] [facility] [address] [facility] [address] [place], [place] - [address] [address] [facility] [address] [place] [address] - [address] [facility] [address] [facility] [address] Primary Care Provider listed: WANDY Aguilera [phone] Potential Needs for Transition of Care: none [...] coordination of care as indicated. MARLYN Maxwell, revenue accounting manager of Care Management Pager [phone] * Plan of Care - Feli Wills [...] Damon MD - 05/29/2024 8:19 AM EDT [facility] Operative Note Patient Name: Vianney Cordero : [id number] MR#: [id number] Case Date: 05/29/2024 Surgeon: Surgeons and Role: [...] esophagus was identified and encircled with a [place] drain. This was used for further traction [...] distal bowel was chosen to create the tyen-if-dgla jejunojejunostomy. The duodenal, afferent limb was approximated [...] suture in two layers with a 30 Niuean Bougie (blunt-tipped) in place. The Bougie was [...] 11/26/2024 8:45 AM EST Appointment [place] [phone] [address] 12/31/2024 10:00 AM EST Office Visit [place] [phone] Mercy Amanda MD [facility] [address] 04/01/2025 2:00 PM EDT Office Visit G[place] [address] Erum Szymanski MD [facility] [place] [address] documented as of this encounter Goals Goal [...] (would rather have you choose regular bread/ belarusian muffin, etc. - whole wheat if possible- [...] EDT Morbid Obesity Unlisted Laparoscopic Procedure Esophagus (06111) 05/29/2024 7:40 AM EDT Morbid Obesity Upper GI Endoscopy, Diagnostic (86110) 05/29/2024 7:40 AM EDT Morbid Obesity Lap Gastric Bypass/Elvie-En-Y (97651) 05/29/2024 7:40 AM EDT Morbid Obesity UPPER GI ENDOSCOPY Routine 05/29/2024 6: 08 AM EDT LAPAROSCOPIC TAKEDOWN PREVIOUS TYESHA Routine 05/29/2024 6:08 AM EDT LAPAROSCOPIC GASTROPLASTY, G\SURG Routine 05/29/2024 6:08 AM EDT documented in this encounter Results * (ABNORMAL) Differential, Automated (05/30/2024 4:24 AM EDT) Neutrophil % 76.8 % [facility] Neutrophil Absolute 9.06(H) 1.70 - 6.10 x10(3)/mc L [facility] Lymph % 15.2 % [facility] Lymphocytes Abs 1.8 0.9 - 3.2 x10(3)/mc L [facility] Monocyte % 7.6 % [facility] Monocyte Abs 0.9 0.3 - 0.9 x10(3)/mc L [facility] Eos % 0.0 % [facility] Eosinophils Abs 0.0 0.0 - 0.4 x10(3)/mc L [facility] Basophil % 0.1 % [facility] Baso Absolute 0.0 0.0 - 0.1 x10(3)/mc L [facility] Immature Gran % 0.30 % [facility] Comment: Immature granulocytes(IG's)percentage and absolute count will include metamyelocytes, myelocytes, and promyelocytes. Blood smears from CBCs yielding IG's will be scanned manually for concordance. If this scan disagrees with the automated IG or if promyelocytes are noted, a manual differential will be performed. Immature Gran Absolute 0.04 0.00 - 0.04 x10(3)/mc L [facility] Blood 05/30/2024 4:24 AM EDT 05/30/2024 4:38 AM EDT Narrative Resulting Agency Comment Spec In Lab Elly Zuleta MD HEMATOLOGY ORDERABLE S [facility] [place] [address] * (ABNORMAL) Hemogram (05/30/2024 4:24 AM EDT) White Blood Cell 11.8(H) 4.0 - 9.5 x10(3)/[facility] Red Blood Cell 4.31 4.00 - 5.21 x10(6)/[facility] Hemoglobin 12.9 11.7 - 15.5 g/dL [facility] Hematocrit 38.1 35.7 - 45.8 % [facility] Mean Cell Volume 88.4 82.6 - 94.4 fL [facility] Mean Cell Hemoglobin 29.9 27.1 - 32.0 pg [facility] Mean Cell Hemoglobin Concentration 33.9 31.7 - 35.0 g/dL [facility] Platelet 287 145 - 357 x10(3)/[facility] RDW Standard Deviation 38.7 37.0 - 46.0 [facility] RDW coefficient of variation 12.1 11.5 - 14.1 % [facility] Mean Platelet Volume 9.7 7.6 - 12.9 fL [facility] NRBC% auto 0.0 % [facility] NRBC Absolute 0.000 0.000 - 0.000 x10(3)/[facility] Blood 05/30/2024 4:24 AM EDT 05/30/2024 4:38 AM EDT Narrative Resulting Agency Comment Spec In Lab Elly Zuleta MD HEMATOLOGY ORDERABLE S [facility] [place] [address] * Phosphorus (05/30/2024 4:24 AM EDT) Phosphorus 3.7 2.5 - 4.5 mg/dL [facility] Blood 05/30/2024 4:24 AM EDT 05/30/2024 4:38 AM EDT Narrative Resulting Agency Comment Spec In Lab Ladan Damon MD CHEMISTRY ORDERABLE S Performing Organization Address City/[facility]/ZIP Co de Phone Number [facility] [place] [address] * Magnesium (05/30/2024 4:24 AM EDT) Magnesium 0.92 0.69 - 1.07 mmol/L [facility] Blood 05/30/2024 4:24 AM EDT 05/30/2024 4:38 AM EDT Narrative Resulting Agency Comment Spec In Lab Ladan Damon MD CHEMISTRY ORDERABLE S Performing Organization Address [facility] Co de Phone Number [facility] [place] [address] * (ABNORMAL) Basic Metabolic Panel (non-fasting) (05/30/2024 4:24 AM EDT) Glucose 134 65 - 199 mg/dL [facility] Comment:Diabetes: >=200 mg/d L plus symptoms Blood Urea Nitrogen 11 8 - 18 mg/dL [facility] Creatinine 0.68(L) 0.70 - 1.20 mg/dL [facility] Sodium 138 135 - 145 mmol/L [facility] Potassium 3.9 3.5 - 5.0 mmol/L [facility] Comment: Please note: ??Patients with WBC >100,000 may have falsely elevated Potassium levels. ??For accurate Potassium quantification in these patients send serum separator tube (gold top) for subsequent determinations. ??Contact the Clinical Chemistry Laboratory if there are any questions. Chloride 106 98 - 107 mmol/L [facility] Carbon Dioxide 21(L) 22 - 31 mmol/L [facility] Anion Gap 11 5 - 15 mmol/L [facility] Calcium 9.0 8.5 - 10.5 mg/dL [facility] Est Glomerular Filtration Rate 108 >=60 mL/min/1. 73 m?? [facility] Comment: This patient's estimated [...] MD CHEMISTRY ORDERABLE S Performing Organization Address [facility] Co de Phone Number [facility] [place] [address] * Specimen to Pathology (05/29/2024 10:43 AM EDT) AP Specimen 05/29/2024 10:4 3 AM EDT 05/29/2024 10:43 AM EDT Narrative [facility] - 05/29/2024 10:43 AM EDT Specimen requisition ordered. ??Separate Pathology report to follow Ladan Damon MD PATHOLOGY/CYTOLOGY ORDERABLES Performing Organization Address [facility] Co de Phone Number [facility] [place] [address] * Surgical Pathology Report (05/29/2024 10:42 AM EDT) Final Diagnosis [id number] ? Location: PACU; PA17; A The signing pathologist has (i) examined the relevant preparation(s) for the specimen(s) and (ii) rendered or confirmed the diagnosis(es). . ?Surgical Pathology DIAGNOSIS A - Portion of stomach - perm, resection: - Segment of stomach lined with unremarkable fundic gland mucosa. Electronically signed by: ?Ronald RIVAS, Samira Verified: ??06/03/2024 11:58 ??Pathologist Performed at: ??-[facility] Dept. of Pathology, [place] [address] Nuclear Medicine Supervisor: Ayad Dee MD, FCAP, ??CLIA Certificate: [id number] SPECIMEN(S) SUBMITTED A - Portion of stomach [...] 1.5 x 1.0 cm diverticulum. Sections/Process ing: Patient Insurance Clerk sections in 1 cassettes as follows: ?A1: ??Patient Insurance Clerk diverticulum ??sns 06/03/2024 11:58 AM EDT [facility] STOMACH STRUCTURE / Unknown 05/29/2024 10:42 AM EDT 05/29/2024 10:42 AM EDT Ladan Damon MD PATHOLOGY/CYTOLOGY ORDERABLES [facility] [place] [phone] documented in this encounter Visit Diagnoses Not [...] Wills RN)1315 (Due - Provider: Suzie Tom [facility]) acetaminophen (Ofirmev) (1,000 mg/100 mL) infusion 1,000 [...] patient tolerate oral medications or suppositories? No 5 (Given - Provider: Justine Victoria RN) acetaminophen [...] Unit), Routine 2100 (Given - Provider: Feli Wills, NIMCO) 0814 (Given - Provider: Lorena Mathias, RN) Continuous Medication Order 05/28/2024 05/29/2024 05/30/2024 lactated ringers infusion (CANCELED) 50 mL/hr, Intravenous, CONTINUOUS, Starting on Brittny 05/29/24 at 0630, Until Brittny 05/29/24 at 1455, Day of Surgery (Day of Procedure) 0648 (New Bag - Provider: Barb Jimenez RN)0812 (Rate/Dose Change - Provider: Filiberto Castro [...] Victoria, NIMCO)2103 (New Bag - Provider: Feli Wills RN) [...] Justine Victoria RN)1726 (Given - Provider: Pedro Craig, RN) 0102 (Given - Provider: Feli Wills RN)0814 (Given - Provider: Lorena Mathias RN) HYDROmorphone (Dilaudid) (1 mg/ml) oral liquid 2 mg 2 mg, Oral, EVERY 4 HOURS PRN, Starting on Brittny 05/29/24 at 1329, Until Sun05/30/24 at 1632, Pain, pain >6 not controlled with acetaminophen or ketorolac, Routine 1544 (Given - Provider: Pedro Craig, NIMCO)1959 (Given - Provider: Feli Wills RN)1999 (Canceled [...] Routine documented in this encounter Care Teams Chemical Laboratory Technician Relationship Specialty Start Date End Date Sonido Cordoba PA [address] [place] [address] PCP - General Family Medicine 07/06/20 documented as of this encounter
--- OUTSIDE RECORDS SUMMARY | 2024-10-25 13:23 | XMS_ITS | Encounter Summary ---
[place] [address] Care Team Providers Care Rock Crusher Name Role Phone Sonido Cordoba Primary Care Provider +1- [phone] Encounter Details Date Type Department Care Team [...] 11/26/2024 8:45 AM EST Appointment [place] [address] Keri Avila [address] [place], [place] [address] 12/31/2024 10:00 AM EST Office Visit [place] [address] Mercy Amanda MD [facility] [address] [place] [address] 04/01/2025 2:00 PM EDT Office Visit Gastroenterology at [facility] [place] [address] Erum Szymanski MD [facility] [place] [address] documented as of this encounter Goals Goal [...] a priority: - Eggs - Cheese - Uruguayan yogurt / cottage cheese - meat - fish - nuts/seeds - protein shake or bar Start with the protein, can choose to add other foods (would rather have you choose regular bread/ hungarian muffin, etc. - whole wheat if possible- [...] on filedocumented in this encounter Care Teams Rock Crusher Relationship Specialty Start Date End Date Sonido Cordoba PA [address] [place] [address] PCP - General Family Medicine 07/06/20 documented as of this encounter
--- OUTSIDE RECORDS SUMMARY | 2024-10-25 13:23 | XMS_ITS | Encounter Summary ---
[place] [address] Care Team Providers Care Fitter And Turner Name Role Phone Sonido Cordoba Primary Care Provider +1- [phone] Encounter Details Date Type Department Care Team [...] 11/26/2024 8:45 AM EST Appointment [place] [address] Keri Avila [address] [place], [place] [address] 12/31/2024 10:00 AM EST Office [place] [address] Mercy Amanda MD [facility] [address] [facility] [address] 04/01/2025 2:00 PM EDT Office Visit Gastroenterology at [facility] [place] [address] Erum Szymanski MD [facility] [place] [address] documented as of this encounter Goals Goal [...] a priority: - Eggs - Cheese - Rwandan yogurt / cottage cheese - meat - [...] on filedocumented in this encounter Care Teams Fitter And Turner Relationship Specialty Start Date End Date Sonido Cordoba PA [address] [place] [address] PCP - General Family Medicine 07/06/20 documented as of this encounter
--- OUTSIDE RECORDS SUMMARY | 2024-10-25 13:23 | XMS_ITS | Encounter Summary ---
[place] [address] Care Team Providers Care Forming Machine Upkeep Mechanic Helper Name Role Phone Sonido Cordoba Primary Care Provider +1- [phone] Encounter Details Date Type Department Care Team [...] 11/26/2024 8:45 AM EST Appointment [place] [address] Keri Avila [address] [place], [place] [address] 12/31/2024 10:00 AM EST Office [place] [address] Mercy Amanda MD [facility] [address] [facility] [address] 04/01/2025 2:00 PM EDT Office Visit Gastroenterology at [facility] [place] [address] Erum Szymanski MD [facility] [place] [address] documented as of this encounter Goals Goal [...] a priority: - Eggs - Cheese - Barbadian yogurt / cottage cheese - meat - fish - nuts/seeds - protein shake or bar Start with the protein, can choose to add other foods (would rather have you choose regular bread/ azeri muffin, etc. - whole wheat if possible- [...] on filedocumented in this encounter Care Teams Forming Machine Upkeep Mechanic Helper Relationship Specialty Start Date End Date Sonido Cordoba PA [address] [place] [address] PCP - General Family Medicine 07/06/20 documented as of this encounter
--- OUTSIDE RECORDS SUMMARY | 2024-10-25 13:23 | XMS_ITS | Encounter Summary ---
Author Organization [facility] [address] Care Team Providers Care Senior Ui Developer Name Role Phone Sonido Cordoba Primary Care Provider +1- [phone] Reason for Visit * Reason Onset Date Comments Medication Refill 11/16/2023 Encounter Details Date Type Department Care Team (Late st Contact Info) Description 11/16/2023 [place] [address] Mercy Amanda MD [facility] [address] [facility] [address] Class 3 severe obesity with serious comorbidity [...] EST Appoint[place] [address] RubyDiamondKeri Sanches [address] [place] [address] 12/31/2024 10:00 AM EST Office [place] [address] Mercy Amanda MD [facility] [address] [facility] [address] 04/01/2025 2:00 PM EDT Office [place] [address] Erum Szymanski MD [facility] [place] [address] documented as of this encounter Goals Goal [...] type documented in this encounter Care Teams Senior Ui Developer Relationship Specialty Start Date End Date Sonido Cordoba PA [address] [place] [address] PCP - General Family Medicine 07/06/20 documented as of this encounter
--- OUTSIDE RECORDS SUMMARY | 2024-10-25 13:23 | XMS_ITS | Encounter Summary ---
[place] [address] Care Team Providers Care Electronic Transaction Implementer Name Role Phone Sonido Cordoba Primary Care Provider +1- [phone] Encounter Details Date Type Department Care Team [...] 11/26/2024 8:45 AM EST Appointment [place] [address] Keri Avila [address] [place], [place] [address] 12/31/2024 10:00 AM EST Office [place] [address] Mercy Amanda MD [facility] [address] [facility] [address] 04/01/2025 2:00 PM EDT Office Visit Gastroenterology at [facility] [place] [address] Erum Szymanski MD [facility] [place] [address] documented as of this encounter Goals Goal [...] on filedocumented in this encounter Care Teams Electronic Transaction Implementer Relationship Specialty Start Date End Date Sonido Cordoba PA [address] [place] [address] PCP - General Family Medicine 07/06/20 documented as of this encounter
--- OUTSIDE RECORDS SUMMARY | 2024-10-25 13:23 | XMS_ITS | Encounter Summary ---
[place] [address] Care Team Providers Care Outsole Cutter Machine Name Role Phone Sonido Cordoba Primary Care Provider +1- [phone] Encounter Details Date Type Department Care Team (Late st Contact Info) Description 01/24/2024 Telephone [place] [address] Juliette Lu PsyD [facility] [place] [address] Social History Tobacco Use Types Packs/Day Years [...] about her availability to connect. Provider reviewed [facility] Psych recommendation relating to therapy, and the importance of establishing care, and having support post-bariatric surgery. Pt endorsed desire to have a [facility] Psych f/u visit 2-mo after surgery (once date is decided, if deemed appropriate by her [facility] Surgical Team) to check-in on how she is doing, whether she is actively engaging in 5D services or not. [facility] will schedule this if/when surgical date has been decided. Pt was in agreement with the plan and denied questions or concerns. This provider has consulted with recycling crew supervisor/attending (Maryann Loo, PhD). documented in this encounter Plan of Treatment Upcoming Encounters Date Type Department Care Team (Late st Contact Info) Description 11/26/2024 8:45 AM EST Appointment [place] [address] Keri Avila [address] [place] [address] 12/31/2024 10:00 AM EST Office Visit Weight Center at [address] Mercy Amanda MD [facility] [address] [facility] [address] 04/01/2025 2:00 PM EDT Office Visit Gastroenterology at [place] [phone] Erum Szymanski MD [facility] [address] documented as of this encounter Goals Goal [...] on filedocumented in this encounter Care Teams Outsole Cutter Machine Relationship Specialty Start Date End Date Sonido Cordoba PA [address] [place] [address] PCP - General Family Medicine 07/06/20 documented as of this encounter
--- OUTSIDE RECORDS SUMMARY | 2024-10-25 13:23 | XMS_ITS | Encounter Summary ---
Author Organization [facility] [place] [address] Care Team Providers Care Fisher Mussel Name Role Phone Sonido Cordoba Primary Care Provider +1- [phone] Encounter Details Date Type Department Care Team (Late st Contact Info) Description 02/04/2024 4:30 PM EDT Office [place] [address] Mercy Amanda MD [facility] DR [facility] MED[facility] [place], [place] [phone] Class 3 severe obesity with serious comorbidity [...] from the original note were not included. [facility] Patient Name: Vianney Cordero Date of [...] and comorbidities GERD/Barretts. This is Visit #13 [facility] visit for this 48 y.o. patient. Initial [...] lbs 02/04/2024, 249 lbs (- 7 lbs) [facility] Team: Priti Skinner RD and Erik Sorenson, Health Chemical Engineer HPI Met with BS team - wanted pt to come here bc of wt gain. Cut all of my portions in half again - down to 1/4 of what I used to eat. Changed out white rice for brown rice. 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 Needs BS - [...] above intact Addie; bx negative for dysplasia [place] 05/2023: WNL Mammo [facility] - in media Pt will get PE/Pap report from [facility] - dropped off - will scan in [...] likely related to worsening IR and rising [id number] med management. On AOMs she can take and afford. Has swallow study scheduled. Will f/u withme prn and after surgery. 10/06/2021 7:00 PM [facility] PATHWAY - ADULT Obesity Medicine Activate [...] a priority: - Eggs - Cheese - Taiwanese yogurt / cottage cheese - meat - fish - nuts/seeds - protein shake or bar Start with the protein, can choose to add other foods (would rather have you choose regular bread/ tuvaluan muffin, etc. - whole wheat if possible- [...] Vitals: 02/04/24 1626 BP: 153/89 BP Location ([facility]): Right arm Patient [...] 114 11/07/2023 Lab Results Component Value Date [id number] 11/07/2023 25-OH Vit D Total (ng/mL) [...] months. 1 min chart review 25 min [id number] Visit time 5 min Documentation time I [...] 11/26/2024 8:45 AM EST Appointment [place] [address] Keri Avila [address] [place] [address] 12/31/2024 10:00 AM EST Office Visit [place] [address] Mercy Amanda MD [facility] DR [facility] [address] 04/01/2025 2:00 PM EDT Office Visit Gastroenterology at [facility] [place] [address] Erum Szymanski MD [facility] [place] [address] documented as of this encounter Goals Goal [...] a priority: - Eggs - Cheese - Taiwanese yogurt / cottage cheese - meat - fish - nuts/seeds - protein shake or bar Start with the protein, can choose to add other foods (would rather have you choose regular bread/ tuvaluan muffin, etc. - whole wheat if possible- [...] education documented in this encounter Care Teams Fisher Mussel Relationship Specialty Start Date End Date Sonido Cordoba PA [address] [place], [place] [address] PCP - General Family Medicine 07/06/20 documented as of this encounter
--- OUTSIDE RECORDS SUMMARY | 2024-10-25 13:23 | XMS_ITS | Encounter Summary ---
Author Organization [facility] Address [facility] [place] [address] Care Team Providers Care Environmental Compliance Manager Name Role Phone Sonido Cordoba Primary Care Provider +1- [phone] Encounter Details Date Type Department Care Team (Latest Contact Info) Description 02/25/2024 7:49 AM EDT - 02/25/2024 11:59 PM EDT Hospital Encounter XRay at [address] [place] [address] Chrystal Damon MD [facility] [place] [address] History of Addie fundoplication Discharge Disposition: Home [...] 10/21/2021 pantoprazole EC (Protonix) [address] tabletIndications:Vermillion tt's esophagus without dysplasia,Gastroesophag eal reflux disease [...] 11/26/2024 8:45 AM EST [place] [address] Keri Avila [address] [place] [address] 12/31/2024 10:00 AM EST Office [place] [address] Mercy Amanda MD [facility] DR [facility] [address] 04/01/2025 2:00 PM EDT Office Visit Gastroenterology at [facility] [place] [address] Erum Szymanski MD [facility] [place] [address] documented as of this encounter Goals Goal [...] a priority: - Eggs - Cheese - Israeli yogurt / cottage cheese - meat - fish - nuts/seeds - protein shake or bar Start with the protein, can choose to add other foods (would rather have you choose regular bread/ zambian muffin, etc. - whole wheat if possible- [...] Esophagram (Double Contrast) (02/25/2024 8:40 AM EDT) [email or web address] WORKSTATION ID [id number] RAD Anatomical Region Laterality Modality N/A Radio [...] who have questions please contact the health intensive care specialist that requested your imaging first. ? Narrative [...] patients who have questions please contactthe health intensive care specialist that requested your imaging first. Chrystal Damon [...] mLs documented in this encounter Care Teams Environmental Compliance Manager Relationship Specialty Start Date End Date Sonido Cordoba PA [address] [place] [address] PCP - General Family Medicine 07/06/20 documented as of this encounter
--- OUTSIDE RECORDS SUMMARY | 2024-10-25 13:23 | XMS_ITS | Encounter Summary ---
Author Organization [facility] Address [facility] [place] [address] Care Team Providers Care Securities Settlement Processor Name Role Phone Sonido Cordoba Primary Care Provider +1- [phone] Encounter Details Date Type Department Care Team (Late st Contact Info) Description 03/06/2024 1:00 PM EDT Office [place] [address] Chrystal Damon MD [facility] [place] [address] Kailyn Urbano APRN [facility] [place] [place] [address] [facility] [place] [address] Pre-op evaluation; Obesity, unspecified classification, unspecified obesity [...] Urbano, TEAGAN - 03/06/2024 1:00 PM EDT [facility] Bariatric Surgery Evaluation Follow Up Patient's [...] Has not attended a Introduction to the [facility] Bariatric Surgery Program seminar, a comprehensive two hour meeting that provides a program overview, education on bariatric surgeries offered at [facility], risks and benefits, as well as patient expectations and follow up. [facility] Bariatric Surgery Program Educational seminars viewed Bariatric Surgery Program evaluations with RD: Completed today Program start weight: 256 WT at visit #1: Wt & BMI By Encounter Date Flowsheet Row Office Visit from 03/06/2024 in General Surgery at [facility] Office Visit from 02/04/2024 in Weight and Wellness at [facility] Weight 109.9 kg (242 lb 4.8 oz) [...] make it up to the [facility]. Patient has a hx tyesha fundoplication, [...] 3.66) performed by Erum Szymanski MD at [facility] ENDOSCOPY PRO COLONOSCOPY, BIOPSY N/A 09/04/2019 COLONOSCOPY FLEXIBLE, WITH BX (WRVU 3.66) performed by Steve Ji MD at [facility] ENDOSCOPY PRO COLONOSCOPY, DIAGNOSTIC N/A 09/04/2019 COLONOSCOPY, DIAGNOSTIC performed by Steve Ji MD at [facility] ENDOSCOPY PRO COLONOSCOPY, DIAGNOSTIC N/A 06/01/2023 COLONOSCOPY,SCREENING (WRVU 3.26) performed by Steve Ji MD at [facility] ENDOSCOPY PRO COLONOSCOPY, REMV LESN, SNARE N/A 08/21/2018 COLONOSCOPY, POLYPECTOMY, REMOVAL LESION BY SNARE (WRVU 4.67) performed by Erum Szymanski MD at [facility] ENDOSCOPY PRO CYSTO W URETEROSCOPY &/OR PYELOSCOPY, DX Right 06/01/2015 CYSTOURETEROSCOPY, DIAGNOSTIC performed by Darius Nuñez Jr., MD at [facility] MAIN OR PRO CYSTOSCOPY, INSERT URETERAL STENT Right 06/01/2015 CYSTO, STENT PLACEMENT performed by Darius Nuñez Jr., MD at [facility] MAIN OR PRO LAPAROSCOPY SURG ESOPHAGOGASTRIC FUNDOPLASTY N/A 04/05/2015 LAPAROSCOPIC TYESHA FUNDOPLASTY performed by Valentín Moura MD at [facility] MAIN OR PRO PERCUT DILATN RENAL TRACT Right 06/01/2015 PERCUTANEOUS INTRO GUIDE WIRE TO ACCESS RENAL PELVIS,AND OR URETER, W\DILATION performed by Darius Nuñez Jr., MD at [facility] MAIN OR PRO PERQ NL/PL LITHOTRIPSY SIMPLE UP TO 2 CM 1 LOCATION Right 06/01/2015 NEPHROLITHOTOMY, (PCNL) PERCUTANEOUS performed by Darius Nuñez Jr., MD at [facility] MAIN OR PRO REPAIR PERONEAL TENDONS Right 08/12/2020 PERONEAL TENDON REPAIR (WRVU 7.35) performed by Mani Jefferson MD at [facility] OSC PRO UPPER GI ENDOSCOPY, BIOPSY N/A 01/27/2015 EGD WITH BIOPSY performed by Brandt Barlow MD at [facility] ENDOSCOPY PRO UPPER GI ENDOSCOPY, BIOPSY N/A 02/28/2016 EGD WITH BIOPSY performed by Brandt Barlow MD at [facility] ENDOSCOPY PRO UPPER GI ENDOSCOPY, BIOPSY N/A 09/04/2016 EGD WITH BIOPSY performed by Brandt Barlow MD at [facility] ENDOSCOPY PRO UPPER GI ENDOSCOPY, BIOPSY N/A 09/24/2017 EGD WITH BIOPSY (WRVU 2.49) performed by Brandt Barlow MD at [facility] ENDOSCOPY PRO UPPER GI ENDOSCOPY, BIOPSY N/A 08/21/2018 EGD WITH BIOPSY (WRVU 2.49) performed by Erum Szymanski MD at [facility] ENDOSCOPY PRO UPPER GI ENDOSCOPY, BIOPSY N/A 09/04/2019 UPPER GASTROINTESTINAL ENDOSCOPY,WITH BIOPSY SINGLE OR MULTIPLE (WRVU 2.49) performed by Steve Ji MD at [facility] ENDOSCOPY PRO UPPER GI ENDOSCOPY, BIOPSY N/A 05/24/2021 EGD WITH BIOPSY (WRVU 2.49) performed by Kathy Carnes MD at [facility] ENDOSCOPY PRO UPPER GI ENDOSCOPY, BIOPSY N/A 06/01/2023 EGD WITH BIOPSY (WRVU 2.39) performed by Steve Ji MD at [facility] ENDOSCOPY PRO UPPER GI ENDOSCOPY, [...] granddaughter (2 yo)lives with her. Works as [employer] here at [facility] in [employer] Habits: Nicotine/tobacco: quit 1996 ETOH use: none recently, typical baseline intake 1 glasswine/week NSAIDs: none Recreation drug use: none Exercise: walks 30-90 minutes depending on the weather and her work schedule Diagnostic screenin. Lab data: Labs complete and up to date. 2. Psychological evaluation done by Juliette Lu PsyD, Weight and Wellness at [facility] : per Dr. Allen SERRANO WITH RECOMMENDATIONS [...] Plan for patient to follow up with [facility] Psychology 2 months post op. She denies binge eating, night eating disorder, self-induced vomiting, laxative or diuretic use or excessive exercise to lose weight. 12/20/2023 8:[address] [facility] Initial Responses PROMIS 10 Physical Scores 61.9 [...] in 5D x2 and has discussed with [facility] psychology with plan to see [facility] provider 2 months post op. 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 3 children. Pt lives with 2 sons, granddaughter (pt has guardianship). Has SO, does not live with him. Social support: SO, children, mom, sister in [place] Hobbies: walking, hiking, fishing (allergy so can't touch the fish), spending time w family and friends Vision at 2 years post-op: improved quality of life, easier time climbing [place], has a lot of trails she'd like to get to that are step and cannot get up now. Weight outcome: would like to get back to 150 but realizes that is not realistic. 200 or a little under Challenges/barriers to success: None. Tracking: My Net Diary 24-hour recall: Breakfast Protein shake- Homemade: Italian yogurt- light and fit Italian- 12 g, Lactaid milk (1/2 cup),banana Snack Lunch Salad- lettuce, parm cheese, few pieces of chicken with light vinaigrette Snack Supper ~4-8 oz (?) Steak and macaroni and cheese (1/2 c) Snacks Fluids: 48+ oz water, Propel, Hint Exercise: [employer] in [place]- on her feet all day. Energy is good. Has 5 dogs. OBJECTIVE: Weight History: Date Weight (lbs) HT BMI Comments 12/20/23 256# Highest Weight 11/15/22 233# 63 41.3 Initial program weight 12/20/23 256# 45.3 1st pre-op visit 03/06/24 242.2# 42.8 EWL % Surgery 3 weeks post-op 4 months post-op [place] Body Weight (based on BMI of 25): [...] Visit from 03/06/2024 in General Surgery at [facility] Office Visit from 02/04/2024 in Weight and Wellness at [facility] Weight 109.9 kg (242 lb 4.8 oz) 1 03/06/2024 1254 113.3 kg (249 lb 12.8 oz) 1 02/04/2024 1626 BMI -- 44.15 1 02/04/2024 1626 Discussion of treatment of obesity and of the [facility] Bariatric Surgery Program: Vianney Cordero is aware that other treatments for obesity are available, ie, dietary, behavior modification, weight loss medications, exercise as well as surgical weight loss methods. The risks and benefits of bariatric surgery, including gastric bypass and sleeve gastrectomy are discussed at every Introduction to the [facility] Bariatric Surgery Program meeting and all Educational [...] surgery to be successful. She understands the termite control servicer risks of vitamin deficiencies, internal hernias and [...] 6 months of surgery, nutrition labs per [facility] accredited bariatric center guidelines - Ongoing weight loss encouraged - Given a surgery date documented in this encounter Plan of Treatment Upcoming Encounters Date Type Department Care Team (Late st Contact Info) Description 11/26/2024 8:45 AM EST [place] [address] [address] [address] 12/31/2024 10:00 AM EST Office [place] [address] Mercy Amanda MD [facility] DR SAL MORALEZ-FAMILY MEDICINE [place], [place] [id number] 04/01/2025 2:00 PM EDT Office [place] [address] Erum Szymanski MD [facility] DR [facility] [place] [address] documented as of this encounter Goals Goal [...] (would rather have you choose regular bread/ stateless muffin, etc. - whole wheat if possible- [...] White Blood Cell 7.3 4.0 - 9.5 x10(3)/[facility] LABORATORY Red Blood Cell 4.63 4.00 - 5.21 x10(6)/[facility] LABORATORY Hemoglobin 13.9 11.7 - 15.5 g/dL [facility] Hematocrit 40.5 35.7 - 45.8 % [facility] Mean Cell Volume 87.5 82.6 - 94.4 fL [facility] Mean Cell Hemoglobin 30.0 27.1 - 32.0 pg [facility] Mean Cell Hemoglobin Concentration 34.3 31.7 - 35.0 g/dL [facility] Platelet 291 145 - 357 x10(3)/[facility] LABORATORY RDW Standard Deviation 37.8 37.0 - 46.0 fL [facility] RDW coefficient of variation 11.9 11.5 - 14.1 % [facility] Mean Platelet Volume 10.2 7.6 - 12.9 [facility] LABORATORY NRBC% auto 0.0 % [facility] LABORATORY NRBC Absolute 0.000 0.000 - 0.000 x10(3)/[facility] LABORATORY Blood 03/06/2024 3:13 PM EDT 03/06/2024 3:28 PM EDT Narrative Resulting Agency Comment Spec In Lab Kailyn E Cleveland SENIOR ACCOUNTING ASSOCIATE HEMATOLOGY ORDERAB LES [facility] [place] [address] * Comprehensive metabolic panel (non-fasting) (03/06/2024 3:13 PM EDT) Glucose 94 65 - 199 mg/dL [facility] Comment:Diabetes: >=200 mg/d L plus symptoms Blood Urea Nitrogen 15 8 - 18 mg/dL [facility] Creatinine 0.92 0.70 - 1.20 mg/dL [facility] Sodium 142 135 - 145 mmol/L [facility] Potassium 4.0 3.5 - 5.0 mmol/L [facility] Comment: Please note: ??Patients with WBC >100,000 may have falsely elevated Potassium levels. ??For accurate Potassium quantification in these patients send serum separator tube (gold top) for subsequent determinations. ??Contact the Clinical Chemistry Laboratory if there are any questions. Chloride 106 98 - 107 mmol/L [facility] Carbon Dioxide 24 22 - 31 mmol/L [facility] Anion Gap 12 5 - 15 mmol/L [facility] Calcium 9.4 8.5 - 10.5 mg/dL [facility] Protein, Total 7.3 6.1 - 8.0 g/dL [facility] Albumin 4.4 3.2 - 5.2 g/dL [facility] Aspartate Aminotransferase 24 0 - 30 unit/L [facility] Alanine Aminotransferase 18 0 - 30 unit/L [facility] Alkaline Phosphatase 94 35 - 105 unit/L [facility] Bilirubin, Total 0.3 0.2 - 1.3 mg/dL [facility] Est Glomerular Filtration Rate 77 >=60 mL/min/1. 73 m?? [facility] [...] Agency Comment Spec In Lab Kailyn E Cleveland SENIOR ACCOUNTING ASSOCIATE CHEMISTRY ORDERABL ES [facility] [place] [address] documented in this encounter Visit Diagnoses Diagnosis Pre-op evaluation Preoperative examination, unspecified Obesity, unspecified classification, unspecified obesity type, unspecified whether serious comorbidity present documented in this encounter Care Teams Securities Settlement Processor Relationship Specialty Start Date End Date Sonido Cordoba PA [address] [place] [address] PCP - General Family Medicine 07/06/20 documented as of this encounter
--- OUTSIDE RECORDS SUMMARY | 2024-10-25 13:23 | XMS_ITS | Encounter Summary ---
Author Organization [facility] [place] [address] Care Team Providers Care Inventory Control Analyst Name Role Phone Sonido Cordoba Primary Care Provider +1- [phone] Encounter Details Date Type Department Care Team (Late st Contact Info) Description 01/09/2024 4:00 PM EST Office Visit Psychiatry [place] [address] Chrystal Metz, PhD [facility] [place] [address] Post-traumatic stress disorder, unspecified Social History Tobacco [...] included. INDIVIDUAL THERAPY PROGRESS NOTE CPT CODES 84643, 29739, 66291 LOCATION: Office SESSION DURATION: 45 minutes ATTENDEES: [...] at 9am For mental health emergencies, call [phone] from anywhere in the [place]. State specific information for [place] and [place] crisis services are as follows and should be used to access local resources: [facility] Mental Health Crises Services [facility] Crisis Line text or call Visit www.P[employer] for further information [place] Call your local community crisis line at: [place]: [facility] [phone] [place]: [facility] Services [phone] [place]: [facility] [phone] [place]: [facility] [phone] [place]: [facility] [phone] Yeny Rios: [facility] Counseling and Support [phone] [place]: [facility] Mental Health [phone] on weekdays 8AM-4:30PM and [phone] on nights and weekends [place]: [facility] [place]: [facility] [phone] [place]: [facility] Services [phone] [place]: [facility] Services, [place]: HCRS [place]: HCRS or Text [place] to [phone] For further information for [place] residents: https://mentalhealth.[place].[facility]/services/emergency-services/din-jud-zljj National Suicide Prevention Hotline: For patients cared for in the Department of Psychiatry, you can reach your mental health clinician at [phone]. Chrystal Metz, PhD documented in this encounter Plan of Treatment Upcoming Encounters Date Type Department Care Team (Late st Contact Info) Description 11/26/2024 8:45 AM EST Appointment [place] [address] Keri Avila [address] [place] [address] 12/31/2024 10:00 AM EST Office [place] [phone] Mercy Amanda MD [facility] DR SAL [place] [address] 04/01/2025 2:00 PM EDT Office Visit Gastroenterology at [facility] [place] [address] Erum Szymanski MD [facility] [place] [address] documented as of this encounter Goals Goal [...] a priority: - Eggs - Cheese - Occitan yogurt / cottage cheese - meat - [...] unspecified documented in this encounter Care Teams Inventory Control Analyst Relationship Specialty Start Date End Date Sonido Cordoba PA [address] [place] [address] PCP - General Family Medicine 07/06/20 documented as of this encounter
--- OUTSIDE RECORDS SUMMARY | 2024-10-25 13:23 | XMS_ITS | Encounter Summary ---
Author Organization [facility] [place] [address] Care Team Providers Care Resident Director Name Role Phone Sonido Cordoba Primary Care Provider +1- [phone] Encounter Details Date Type Department Care Team (Late st Contact Info) Description 01/25/2024 9:00 AM EDT Office Visit Psychiatry [place] [address] Chrystal Metz, PhD [facility] [place] [address] Post-traumatic stress disorder, unspecified Social History Tobacco [...] included. INDIVIDUAL THERAPY PROGRESS NOTE CPT CODES 81017, 78165, 11799 LOCATION: Office SESSION DURATION: 30 minutes ATTENDEES: [...] emergencies, call [phone] from anywhere in the [facility]. State specific information for [place] and [place] crisis services are as follows and should be used to access local resources: [facility] Mental Health Crises Services [facility] Crisis Line text or call Visit www.PagosOnLine for further information [place] Call your local [facility] crisis line at: [place]: Counseling Service [facility] [phone] [place]: [facility] Services [phone] [place]: [facility] [phone] [place]: [facility] [phone] [place]: [facility] [phone] Lance chuckie JuarezGordon: [facility] Counseling and Support [phone] [place]: [facility] Mental Health [phone] on weekdays 8AM-4:30PM and [phone] on nights and weekends [place]: Kailyn Roy Terrell [place]: [facility] [phone] [place]: [facility] [phone] [place]: [facility] Services, [place]: HCRS [place]: HCRS or Text [place] to [phone] For further information for [place] residents: https://mentalhealth.[place].[facility] behavioral health services/services/emergency-services/coo-dbn-afbv National Suicide Prevention Hotline: For patients cared for in the Department of Psychiatry, you can reach your mental health clinician at [phone]. Chrystal Metz, PhD documented in this encounter Plan of Treatment Upcoming Encounters Date Type Department Care Team (Late st Contact Info) Description 11/26/2024 8:45 AM [place] [address] Keri Avila [address] [place] [address] 12/31/2024 10:00 AM EST Office Visit Weight Center at [place] [phone] Mercy Amanda MD [facility] DR [place] [address] 04/01/2025 2:00 PM EDT Office [place] [address] Erum Szymanski MD [facility] [address] documented as of this encounter Goals Goal [...] a priority: - Eggs - Cheese - Danish yogurt / cottage cheese - meat - [...] unspecified documented in this encounter Care Teams Resident Director Relationship Specialty Start Date End Date Sonido Cordoba PA [address] [place] [address] PCP - General Family Medicine 07/06/20 documented as of this encounter
--- OUTSIDE RECORDS SUMMARY | 2024-10-25 13:23 | XMS_ITS | Encounter Summary ---
[place] [address] Care Team Providers Care Blackjack Pit Boss Name Role Phone Sonido Cordoba Primary Care Provider +1- [phone] Encounter Details Date Type Department Care Team (Late st Contact Info) Description 01/24/2024 Telephone [place] [phone] Juliette Lu PsyD [facility] [place] [address] Social History Tobacco Use Types Packs/Day Years [...] 11/26/2024 8:45 AM EST [place] [phone] Keri Avila [address] [place] [address] 12/31/2024 10:00 AM EST Office [place] [address] Mercy Amanda MD [facility] DR SAL [facility] [address] 04/01/2025 2:00 PM EDT Office [place] [address] Erum Szymanski MD [facility] [place] [address] documented as of this encounter Goals Goal [...] on filedocumented in this encounter Care Teams Blackjack Pit Boss Relationship Specialty Start Date End Date Sonido Cordoba PA [address] [place] [address] PCP - General Family Medicine 07/06/20 documented as of this encounter
--- OUTSIDE RECORDS SUMMARY | 2024-10-25 13:23 | XMS_ITS | Encounter Summary ---
[place] [address] Care Team Providers Care Sheeter Operator Name Role Phone Sonido Cordoba Primary Care Provider +1- [phone] Encounter Details Date Type Department Care Team (Latest Contact Info) Description 03/06/2024 3:05 PM EDT Laboratory Appointment Lab [address] [place] [address] Pre-op evaluation; Obesity, unspecified classification, [...] 11/26/2024 8:45 AM [place] [address] Keri Avila [address] [place] [address] 12/31/2024 10:00 AM EST Office [place] [address] Mercy Amanda MD [facility] [address] [place] [address] 04/01/2025 2:00 PM EDT Office [place] [address] Erum Szymanski MD [facility] [place] [address] documented as of this encounter [...] a priority: - Eggs - Cheese - Syriac yogurt / cottage cheese - meat - [...] metabolic panel (non-fasting) (03/06/2024 3:13 PM EDT) Pathologist [facility] Glucose 94 65 - 199 mg/dL [facility] Comment:Diabetes: >=200 mg/d L plus symptoms Blood Urea Nitrogen 15 8 - 18 mg/dL [facility] Creatinine 0.92 0.70 - 1.20 mg/dL [facility] Sodium 142 135 - 145 mmol/L [facility] Potassium 4.0 3.5 - 5.0 mmol/L [facility] Comment: Please note: ??Patients with WBC >100,000 may have falsely elevated Potassium levels. ??For accurate Potassium quantification in these patients send serum separator tube (gold top) for subsequent determinations. ??Contact the Clinical Chemistry Laboratory if there are any questions. Chloride 106 98 - 107 mmol/L [facility] Carbon Dioxide 24 22 - 31 mmol/L [facility] Anion Gap 12 5 - 15 mmol/L [facility] Calcium 9.4 8.5 - 10.5 mg/dL [facility] Protein, Total 7.3 6.1 - 8.0 g/dL [facility] Albumin 4.4 3.2 - 5.2 g/dL [facility] Aspartate Aminotransferase 24 0 - 30 unit/L [facility] Alanine Aminotransferase 18 0 - 30 unit/L [facility] Alkaline Phosphatase 94 35 - 105 unit/L [facility] Bilirubin, Total 0.3 0.2 - 1.3 mg/dL [facility] Est Glomerular Filtration Rate 77 >=60 mL/min/1. 73 m?? [facility] Comment: This patient's estimated [...] Agency Comment Spec In Lab Kailyn E Whitman TECH ED/WOODSHOP TEACHER CHEMISTRY ORDERABL ES [facility] [place] [place] [address] * Hemogram (03/06/2024 3:13 PM EDT) White Blood Cell 7.3 4.0 - 9.5 x10(3)/[facility] Red Blood Cell 4.63 4.00 - 5.21 x10(6)/[facility] Hemoglobin 13.9 11.7 - 15.5 g/dL [facility] Hematocrit 40.5 35.7 - 45.8 % [facility] Mean Cell Volume 87.5 82.6 - 94.4 fL [facility] Mean Cell Hemoglobin 30.0 27.1 - 32.0 pg [facility] Mean Cell Hemoglobin Concentration 34.3 31.7 - 35.0 g/dL [facility] Platelet 291 145 - 357 x10(3)/[facility] RDW Standard Deviation 37.8 37.0 - 46.0 fL [facility] RDW coefficient of variation 11.9 11.5 - 14.1 % [facility] Mean Platelet Volume 10.2 7.6 - 12.9 fL [facility] NRBC% auto 0.0 % [facility] NRBC Absolute 0.000 0.000 - 0.000 x10(3)/mcL [facility] Blood 03/06/2024 3:13 PM EDT 03/06/2024 3:28 PM EDT Narrative Resulting Agency Comment Spec In Lab Kailyn E Whitman TECH ED/WOODSHOP TEACHER HEMATOLOGY ORDERAB LES [facility] [place] [address] documented in this encounter Visit Diagnoses Diagnosis Pre-op evaluation Preoperative examination, unspecified Obesity, unspecified classification, unspecified obesity type, unspecified whether serious comorbidity present documented in this encounter Care Teams Sheeter Operator Relationship Specialty Start Date End Date Sonido Cordoba PA [address] [place] [address] PCP - General Family Medicine 07/06/20 documented as of this encounter
--- OUTSIDE RECORDS SUMMARY | 2024-10-25 13:23 | XMS_ITS | Encounter Summary ---
[place] [address] Care Team Providers Care Trolley Coach Driver Name Role Phone Sonido Cordoba Primary Care Provider +1- [phone] Encounter Details Date Type Department Care Team [...] 11/26/2024 8:45 AM [place] [address] Keri Avila [address] [place], [place] [address] 12/31/2024 10:00 AM EST Office [place] [address] Mercy Amanda MD [facility] [address] [facility] [address] 04/01/2025 2:00 PM EDT Office Visit Gastroenterology at [facility] [place] [address] Erum Szymanski MD [facility] [place] [address] documented as of this encounter Goals Goal [...] on filedocumented in this encounter Care Teams Trolley Coach Driver Relationship Specialty Start Date End Date Sonido Cordoba PA [address] [place] [address] PCP - General Family Medicine 07/06/20 documented as of this encounter
--- OUTSIDE RECORDS SUMMARY | 2024-10-25 13:23 | XMS_ITS | Encounter Summary ---
[place] [address] Care Team Providers Care Cab Starter Name Role Phone Sonido Cordoba Primary Care Provider +1- [phone] Encounter Details Date Type Department Care Team [...] 11/26/2024 8:45 AM EST [place] [address] Keri Avila [address] [place], [place] [address] 12/31/2024 10:00 AM EST Office [place] [address] Mercy Amanda MD [facility] DR [facility] [address] 04/01/2025 2:00 PM EDT Office Visit Gastroenterology at [facility] [place] [address] Erum Szymanski MD [facility] [place] [address] documented as of this encounter Goals Goal [...] a priority: - Eggs - Cheese - Eritrean yogurt / cottage cheese - meat - [...] on filedocumented in this encounter Care Teams Cab Starter Relationship Specialty Start Date End Date Sonido Cordoba PA [address] [place] [address] PCP - General Family Medicine 07/06/20 documented as of this encounter
--- OUTSIDE RECORDS SUMMARY | 2024-10-25 13:23 | XMS_ITS | Encounter Summary ---
Author Organization [facility] [place] [address] Care Team Providers Care Ironworker Machine Operator Name Role Phone Sonido Cordoba Primary Care Provider +1- [phone] Reason for Visit * Reason Comments Medication Refill Encounter Details Date Type Department Care Team (Late st Contact Info) Description 04/16/2024 Refill [place] [address] Mercy Amanda MD [facility] [address] [facility] [address] Class 3 severe obesity with serious comorbidity [...] 11/26/2024 8:45 AM EST Appointment [place] [address] DandreJustus Keri [address] [place] [address] 12/31/2024 10:00 AM EST Office [place] [address] Mercy Amanda MD [facility] [address] [facility] [address] 04/01/2025 2:00 PM EDT Office Visit [place] [address] Erum Szymanski MD [facility] [place] [address] documented as of this encounter Goals Goal [...] a priority: - Eggs - Cheese - Frisian yogurt / cottage cheese - meat - [...] X documented in this encounter Care Teams Ironworker Machine Operator Relationship Specialty Start Date End Date Sonido Cordoba PA [address] [place] [address] PCP - General Family Medicine 07/06/20 documented as of this encounter
--- OUTSIDE RECORDS SUMMARY | 2024-10-25 13:23 | XMS_ITS | Encounter Summary ---
[place] [address] Care Team Providers Care Pre Sales Network Engineer Name Role Phone Sonido Cordoba Primary Care Provider +1- [phone] Encounter Details Date Type Department Care Team (Late st Contact Info) Description 11/23/2023 2:00 PM EST Office [place] [address] [facility] [place] [address] Post-traumatic stress disorder, unspecified Social History Tobacco [...] BARIATRIC SURGERY PSYCHOLOGY FOLLOW UP NOTE N [facility] AT [facility] [address] Dept: [phone] Loc: [phone] 11/21/2023 4:21 PM Vianney Cordero is a [...] follow up plan is as follows: No [facility] psych f/u necessary; pt is welcome to reach out to [facility] psych if needed in the future. This provider has [facility] messaged pt with light status update. Pt was in agreement with the plan and denied questions or concerns. SUMMARY The decision noted above is based on the following: Vianney has made significant weight loss attempts in the past, but without lasting success. Viannye experienced some mental health problems in the [...] this is not a requirement by the [facility] team. D/t this course of care being [...] 11/26/2024 8:45 AM EST Appointment Ultrasound at [place] [phone] Keri Avila [address] [place] [address] 12/31/2024 10:00 AM EST Office Visit Weight Center at [place] [phone] [facility] [address] [place] [address] 04/01/2025 2:00 PM EDT Office [place] [address] [facility] [place] [address] documented as of this encounter Goals Goal [...] unspecified documented in this encounter Care Teams Pre Sales Network Engineer Relationship Specialty Start Date End Date Sonido Cordoba PA [address] [place] [address] PCP - General Family Medicine 07/06/20 documented as of this encounter
--- OUTSIDE RECORDS SUMMARY | 2024-10-25 13:23 | XMS_ITS | Encounter Summary ---
Author Organization [facility] [place] [address] Care Team Providers Care Workers Compensation Examiner Name Role Phone Sonido Cordoba Primary Care Provider +1- [phone] Encounter Details Date Type Department Care Team (Late st Contact Info) Description 05/07/2024 1:00 PM EDT Office Visit [place] [address] Dena Alexander, DIABETIC EDUCATOR [facility] [place] [address] Belinda Heath, RD [facility] [place] [address] Encounter for pre-bariatric surgery counseling and education [...] Patient Instructions * Patient Instructions* Kailyn Urbano, DIABETIC EDUCATOR - 05/07/2024 1:00 PM EDT Images from the original note were not included. Discharge Instructions - Bariatric Surgery NEW PRESCRIPTIONS: house mover supervisor at [facility] today: Typical medications are Lovenox (blood thinner), omeprazole (ulcer prevention), Zofran (ondansetron)- anti-nausea, You will be given either gabapentin/tizanidine/ca risoprodol/cyclobenzaprine/celecoxib or liquid oxycodone (pain control), Miralax and Colace (constipation) house mover supervisor at your home pharmacy: ursodiol if [...] - 5pm): General Surgery and Bariatric Surgery [phone] Bariatric Surgeons: Jeremy Meléndez Trus [phone] [employer] Manufacturing Supervisor: [phone] Dietitians: [phone] Outside of regular business hours, including weekends and holidays: Ask for General Surgery resident industrial relations representative [phone] Please note, this call will be answered [...] weeks at the General Surgery Outpatient [facility] (Participant Administrator 4L, [facility]). WOUND CARE If you have liquid dressing [...] twice daily. Please call or send a Beat.no message if you do not have a [...] for assistance to pay for this with [employer] Only. Go to [email or web address] and put in the prescription and the [...] Follow up with primary care provider or technical services specialist in 1-2 weeks in order to [...] minerals- 2 pills per day Calcium Citrate- 2592-5808 mg daily total, 500-600 mg taken 2 to 3 times per day (take separate from iron and multivitamin by at least 2 hours) Vitamin B12- 500 mcg daily (sublingual or oral) *Take bariatric supplements as directed on the label PROTEIN SUPPLEMENTS At least 20 g protein per serving (1 scoop or ???snrop-kr-shhtg?? ) Under 200 calories for ???bhqci-yt-wwlyf?? Under 170 calories per scoop for powder [...] The prescription is typically sent to the [facility] Pharmacy at discharge. Take the medication to [...] in a recliner more comfortable early post-surgery. [facility] Post-Bariatric Surgery Events Calendar Date Time period [...] for 10 days to prevent blood clots. house mover supervisor prescription at [facility] 2 weeks post surgery If you [...] post-op 3 weeks: visits with surgeon or MEDICAL RECEPTION SPECIALIST and dietitian Bring diet logs and complete [...] Rodgers's esophagus 4 months: Visits with RD /MEDICAL RECEPTION SPECIALIST Bring complete list of medications and supplements including dose and type (or take photos) Have lab work done before your appointment. Bring copies of any labwork that may have been done by your PCP 6.5 months Stop Ursodiol. No refills are needed. [address]/MEDICAL RECEPTION SPECIALIST Bring complete list of medications and supplements including dose and type (or take photos) Have lab work done before your appointment. Bring copies of any labwork that may have been done by your PCP* 2 years and yearly for life visits with RD/MEDICAL RECEPTION SPECIALIST Bring complete list of medications and supplements including dose and type (or take photos) Have lab work done before your appointment. Bring copies of any labwork that may have been done by your PCP Abbreviations: RD: registered dietitian. MEDICAL RECEPTION SPECIALIST: nurse practitioner documented in this encounter Progress Notes * Dena Alexander APRN - 05/07/2024 1:00 PM EDT BARIATRIC SURGERY PROGRAM [place], [place] [address] Reason for visit: [facility] for up coming bariatric surgery Vianney attended a comprehensive group pre-operative class today, which included discussion of preand post operative instructions included in the [facility] Bariatric Surgery Program Education Handbook. The nutrition [...] Pt previously attended a Introduction to the [facility] Bariatric Surgery Program seminar,a two hour meeting that provides a program overview as well as expectations. The [facility] Bariatric Surgery Program Educational seminar requirement has [...] surgery and post-op routine care/ locations: Admissions/SDP/PACU//3/2 [place] units medications that increase the risk of [...] lossthrough dieting have been unsuccessful over the prison. Advised patient that bariatric surgery is a [...] 11/26/2024 8:45 AM EST Appointment [place] [address] Keri Avila [address] [place] [address] 12/31/2024 10:00 AM EST Office [place] [address] Mercy Amanda MD [facility] DR [facility] [place] [address] 04/01/2025 2:00 PM EDT Office Visit Gastroenterology at [facility] [place] [address] Erum Szymanski MD [facility] [place] [address] documented as of this encounter Goals Goal [...] a priority: - Eggs - Cheese - Bahraini yogurt / cottage cheese - meat - [...] education documented in this encounter Care Teams Workers Compensation Examiner Relationship Specialty Start Date End Date Sonido Cordoba PA [address] [place] [address] PCP - General Family Medicine 07/06/20 documented as of this encounter
--- OUTSIDE RECORDS SUMMARY | 2024-10-25 13:23 | XMS_ITS | Encounter Summary ---
Author Organization [facility] [place] [address] Care Team Providers Care Clinical Research Physician Name Role Phone Sonido Cordoba Primary Care Provider +1- [phone] Encounter Details Date Type Department Care Team (Late st Contact Info) Description 12/19/2023 Telephone Psychiatry [place] [address] Jaz Che Social History Tobacco [...] 11/26/2024 8:45 AM [place] [address] Keri Avila [address] [place], [place] [address] 12/31/2024 10:00 AM EST Office [place] [address] Mercy Amanda MD [facility] DR SAL MOR[facility] [address] 04/01/2025 2:00 PM EDT Office [place] [address] Erum Szymanski MD [facility] [place] [address] documented as of this encounter Goals Goal [...] on filedocumented in this encounter Care Teams Clinical Research Physician Relationship Specialty Start Date End Date Sonido Cordoba PA [address] [place] [address] PCP - General Family Medicine 07/06/20 documented as of this encounter
--- OUTSIDE RECORDS SUMMARY | 2024-10-25 13:24 | XMS_ITS | Encounter Summary ---
[place] [address] Care Team Providers Care Station Baggage Agent Name Role Phone Sonido Cordoba Primary Care Provider +1- [phone] Encounter Details Date Type Department Care Team [...] 11/26/2024 8:45 AM EST [place] [address] Keri Avila [address] [place], [place] [address] 12/31/2024 10:00 AM EST Office [place] [address] Mercy Amanda MD [facility] [address] [place] [address] 04/01/2025 2:00 PM EDT Office Visit Gastroenterology at [facility] [place] [address] Erum Szymanski MD [facility] [place] [place] [address] documented as of this encounter Goals Goal [...] a priority: - Eggs - Cheese - Niuean yogurt / cottage cheese - meat - fish - nuts/seeds - protein shake or bar Start with the protein, can choose to add other foods (would rather have you choose regular bread/ yi muffin, etc. - whole wheat if possible- [...] on filedocumented in this encounter Care Teams Station Baggage Agent Relationship Specialty Start Date End Date Sonido Cordoba PA [address] [place] [address] PCP - General Family Medicine 07/06/20 documented as of this encounter
--- OUTSIDE RECORDS SUMMARY | 2024-10-25 13:24 | XMS_ITS | Encounter Summary ---
Author Organization [facility] [place] [address] Care Team Providers Care Retail And Restaurant Name Role Phone Sonido Cordoba Primary Care Provider +1- [phone] Reason for Visit * Reason Onset Date Comments Medication Refill 08/29/2023 Encounter Details Date Type Department Care Team (Late st Contact Info) Description 08/29/2023 [place] [address] Mercy Amanda MD [facility] DR [facility] [address] Class 3 severe obesity with serious comorbidity [...] 11/26/2024 8:45 AM EST [place] [address] RubyDiamondKeri Sanches [address] [place] [address] 12/31/2024 10:00 AM EST Office [place] [address] Mercy Amanda MD [facility] DR [facility] [address] 04/01/2025 2:00 PM EDT Office [place] [address] Erum Szymanski MD [facility] [place] [address] documented as of this encounter Goals Goal [...] (would rather have you choose regular bread/ korean muffin, etc. - whole wheat if [...] type documented in this encounter Care Teams Retail And Restaurant Relationship Specialty Start Date End Date Sonido Cordoba PA [address] [place] [address] PCP - General Family Medicine 07/06/20 documented as of this encounter
--- OUTSIDE RECORDS SUMMARY | 2024-10-25 13:24 | XMS_ITS | Encounter Summary ---
[place] [address] Care Team Providers Care Science Technicians Name Role Phone Sonido Cordoba Primary Care Provider +1- [phone] Encounter Details Date Type Department Care Team (Late st Contact Info) Description 10/04/2023 Telephone [place] [address] Juliette Lu PsyD [facility] [place] [address] Social History Tobacco Use Types Packs/Day Years [...] AM EST Provider and pt communicated via Xopik messages on 10/01/23 and 10/02/23 to find a time to discuss [facility] bariatric surgery f/u visit (from 09/14/23) and [address] Psychiatry referral. Provider called pt at 10 [...] 11/26/2024 8:45 AM [place] [address] Keri Avila [address] [place] [address] 12/31/2024 10:00 AM EST Office [place] [address] Mercy Amanda MD [facility] DR SAL [facility] [address] 04/01/2025 2:00 PM EDT Office [place] [address] Erum Szymanski MD [facility] [place] [address] documented as of this encounter Goals Goal [...] a priority: - Eggs - Cheese - Sudanese yogurt / cottage cheese - meat - fish - nuts/seeds - protein shake or bar Start with the protein, can choose to add other foods (would rather have you choose regular bread/ east timorese muffin, etc. - whole wheat if possible- [...] on filedocumented in this encounter Care Teams Science Technicians Relationship Specialty Start Date End Date Sonido Cordoba PA [address] [place] [address] PCP - General Family Medicine 07/06/20 documented as of this encounter
--- OUTSIDE RECORDS SUMMARY | 2024-10-25 13:24 | XMS_ITS | Encounter Summary ---
Author Organization [facility] [place] [address] Care Team Providers Care Border Measurer And Cutter Name Role Phone Sonido Cordoba Primary Care Provider +1- [phone] Reason for Visit * Reason Onset Date Comments Medication Refill 06/14/2023 Encounter Details Date Type Department Care Team (Late st Contact Info) Description 06/14/2023 [place] [address] Mercy Amanda MD [facility] [address] M[facility] [address] Class 3 severe obesity with serious comorbidity [...] [place] [address] RubyDiamondKeri Sanches [address] [place] [address] 12/31/2024 10:00 AM EST Office [place] [address] Mercy Amanda MD [facility] [address] [facility] [address] 04/01/2025 2:00 PM EDT Office [place] [address] Erum Szymanski MD [facility] [place] [address] documented as of this encounter Goals Goal Patient Goal Type Associated Problems Recent Progress Patient-Stated? Author continue to track in an mika Lifestyle Ahsa Chung MD Note: Try goal of 1500 [...] type documented in this encounter Care Teams Border Measurer And Cutter Relationship Specialty Start Date End Date Sonido Cordoba PA [address] [place] [address] PCP - General Family Medicine 07/06/20 documented as of this encounter
--- OUTSIDE RECORDS SUMMARY | 2024-10-25 13:24 | XMS_ITS | Encounter Summary ---
Author Organization [facility] [place] [address] Care Team Providers Care Treating Inspector Name Role Phone Sonido Cordoba Primary Care Provider +1- [phone] Reason for Visit * Reason Comments Medication Refill Encounter Details Date Type Department Care Team (Late st Contact Info) Description 07/01/2023 [place] [address] Mercy Amanda MD [facility] [address] Class 3 severe obesity with serious comorbidity [...] 11/26/2024 8:45 AM [place] [address] DandreJustus Keri [address] [place] [address] 12/31/2024 10:00 AM EST Office [place] [address] Mercy Amanda MD [facility] [address] 04/01/2025 2:00 PM EDT Office [place] [address] Erum Szymanski MD [facility] [place] [address] documented as of this encounter Goals Goal [...] X documented in this encounter Care Teams Treating Inspector Relationship Specialty Start Date End Date Sonido Cordoba PA [address] [place] [address] PCP - General Family Medicine 07/06/20 documented as of this encounter
--- OUTSIDE RECORDS SUMMARY | 2024-10-25 13:24 | XMS_ITS | Encounter Summary ---
[place] [address] Care Team Providers Care Outer Diameter Technician Name Role Phone Sonido Cordoba Primary Care Provider +1- [phone] Encounter Details Date Type Department Care Team [...] 11/26/2024 8:45 AM EST [place]oint[place] [address] Keri Avila [address] [place], [place] [address] 12/31/2024 10:00 AM EST Office [place] [address] Mercy Amanda MD [facility] [address] [place] [address] 04/01/2025 2:00 PM EDT Office Visit Gastroenterology at [facility] [place] [address] Erum Szymanski MD [facility] [place] [address] documented as of this encounter Goals Goal [...] - Eggs - Cheese - Citizen Of [place] yogurt / cottage cheese - meat - fish - nuts/seeds - protein shake or bar Start with the protein, can choose to add other foods (would rather have you choose regular bread/ ukrainian muffin, etc. - whole wheat if possible- [...] on filedocumented in this encounter Care Teams Outer Diameter Technician Relationship Specialty Start Date End Date Sonido Cordoba PA [address] [place] [address] PCP - General Family Medicine 07/06/20 documented as of this encounter
--- OUTSIDE RECORDS SUMMARY | 2024-10-25 13:24 | XMS_ITS | Encounter Summary ---
[place] [address] Care Team Providers Care Produce Weigher Name Role Phone Sonido Cordoba Primary Care Provider +1- [phone] Reason for Visit * Reason Onset Date Comments Bumped Appointment 07/23/2023 Encounter Details Date Type Department Care Team (Late st Contact Info) Description 07/23/2023 Telephone [place] [phone] Viviana Mcneal Bumped Appointment Social History Tobacco [...] Please connect caller with Viviana for scheduling [phone] documented in this encounter Plan of Treatment Upcoming Encounters Date Type Department Care Team (Late st Contact Info) Description 11/26/2024 8:45 AM EST Appointment [place] [phone] Keri Avila [address] [place] [address] 12/31/2024 10:00 AM EST Office [place] [phone] Mercy Amanda MD [facility] [address] [facility] [address] 04/01/2025 2:00 PM EDT Office Visit [place] [address] Erum Szymanski MD [facility] [place] [address] documented as of this encounter Goals Goal [...] a priority: - Eggs - Cheese - Burundian yogurt / cottage cheese - meat - [...] on filedocumented in this encounter Care Teams Produce Weigher Relationship Specialty Start Date End Date Sonido Cordoba PA [address] [place] [address] PCP - General Family Medicine 07/06/20 documented as of this encounter
--- OUTSIDE RECORDS SUMMARY | 2024-10-25 13:24 | XMS_ITS | Encounter Summary ---
Author Organization [place] [address] Care Team Providers Care Purchasing Officer Name Role Phone Sonido Cordoba Primary Care Provider +1- [phone] Reason for Referral * Psychiatric (Routine) - Closed Specialty Diagnoses / Procedures Referred By Aric madrigal Referred To Contact Psychiatry Diagnoses Post-traumatic stress disorder, unspecified Nuria Jaffe, PhD [facility] [place] [address] [facility] [address] [place] [address] Referral ID Status Reason Start Date Expiration Date V isits Requested Visits Authorized [id number] Closed Consult, Test & Treat 07/11/2023 07/10/2024 1 1 Encounter Details Date Type Department Care Team (Late st Contact Info) Description 07/11/2023 Orders [place] [address] Nuria Jaffe, PhD [facility] DR [place] [address] Post-traumatic stress disorder, unspecified Social History Tobacco [...] 11/26/2024 8:45 AM EST [place] [address] Keri Avila [address] [place] [address] 12/31/2024 10:00 AM EST Office [place] [phone] Mercy Amanda MD [facility] [address] [facility] [address] 04/01/2025 2:00 PM EDT Office Visit Gastroenterology at [place] [phone] Erum Szymanski MD [facility] [place] [address] Scheduled Referrals Name Type Priority Associated Diagnoses [...] (would rather have you choose regular bread/ malagasy muffin, etc. - whole wheat if possible- [...] unspecified documented in this encounter Care Teams Purchasing Officer Relationship Specialty Start Date End Date Sonido Cordoba PA [address] [place] [address] PCP - General Family Medicine 07/06/20 documented as of this encounter
--- OUTSIDE RECORDS SUMMARY | 2024-10-25 13:24 | XMS_ITS | Encounter Summary ---
[place] [address] Care Team Providers Care Tow Truck Operator Name Role Phone Sonido Cordoba Primary Care Provider +1- [phone] Reason for Visit * Reason Onset Date Comments Appointment 10/08/2023 Encounter Details Date Type Department Care Team (Late st Contact Info) Description 10/08/2023 Telephone [place] [address] Mercy Amanda MD [facility] [address] [facility] [address] Appointment Social History Tobacco Use Types Packs/Day [...] Appointment: yes Message: y Call made to medical secretary teacher or nurse Y/N n Pager: Y/N n documented in this encounter Plan of Treatment Upcoming Encounters Date Type Department Care Team (Late st Contact Info) Description 11/26/2024 8:45 AM EST Appointment [place] [phone] Keri Avila [address] [place] [address] 12/31/2024 10:00 AM EST Office [place] [address] Mercy Amanda MD [facility] [address] [facility] [address] 04/01/2025 2:00 PM EDT Office Visit [place] [phone] Erum Szmyanski MD [facility] [place] [address] documented as of this encounter Goals Goal [...] on filedocumented in this encounter Care Teams Tow Truck Operator Relationship Specialty Start Date End Date Sonido Cordoba PA [address] [place] [address] PCP - General Family Medicine 07/06/20 documented as of this encounter
--- OUTSIDE RECORDS SUMMARY | 2024-10-25 13:24 | XMS_ITS | Encounter Summary ---
[place] [address] Care Team Providers Care Columnist Name Role Phone Sonido Cordoba Primary Care Provider +1- [phone] Encounter Details Date Type Department Care Team (Latest Contact Info) Description 11/07/2023 7:30 AM EST Laboratory Appointment Lab [address] [place] [phone] Class 3 severe obesity with serious comorbidity [...] 11/26/2024 8:45 AM [place] [address] RubyDiamondKeri Sanches [address] [place] [address] 12/31/2024 10:00 AM EST [place] [address] Mercy Amanda MD [facility] [address] [place] [address] 04/01/2025 2:00 PM EDT [place] [address] Erum Szymanski MD [facility] [place] [address] documented as of this encounter Goals Goal [...] Lifestyle On track(2022 9:48 AM EDT) Priti aWldron RD Note: Images from the original note [...] a priority: - Eggs - Cheese - Kazakh yogurt / cottage cheese - meat - [...] White Blood Cell 7.6 4.0 - 9.5 x10(3)/[facility] Red Blood Cell 4.49 4.00 - 5.21 x10(6)/[facility] Hemoglobin 13.4 11.7 - 15.5 g/dL [facility] Hematocrit 39.7 35.7 - 45.8 % [facility] Mean Cell Volume 88.4 82.6 - 94.4 fL [facility] Mean Cell Hemoglobin 29.8 27.1 - 32.0 pg [facility] Mean Cell Hemoglobin Concentration 33.8 31.7 - 35.0 g/dL [facility] Platelet 282 145 - 357 x10(3)/[facility] RDW Standard Deviation 38.6 37.0 - 46.0 fL [facility] RDW coefficient of variation 12.0 11.5 - 14.1 % [facility] Mean Platelet Volume 9.5 7.6 - 12.9 fL [facility] NRBC% auto 0.0 % [facility] NRBC Absolute 0.000 0.000 - 0.000 x10(3)/[facility] Blood 11/07/2023 7:47 AM EST 11/07/2023 7:52 AM EST Narrative Resulting Agency Comment Spec In Lab Mercy Amanda MD HEMATOLOGY ORD ERABLES Performing Organization Address City/State/[facility] Co de Phone Number [facility] [place] [address] * (ABNORMAL) CMP w/fasting Glucose (11/07/2023 7:47 AM EST) Glucose Fasting 121(H) 65 - 99 mg/dL [facility] Comment: ?Fasting* Glucose Interpretive Criteria [...] of Diabetes Mellitus, Position Statement from the [place] Diabetes [employer]. ??Diabetes Care, Volume 33, Supplement 1, Nov 2009 Blood Urea Nitrogen 15 8 - 18 mg/dL [facility] Creatinine 0.82 0.70 - 1.20 mg/dL [facility] Sodium 142 135 - 145 mmol/L [facility] Potassium 4.3 3.5 - 5.0 mmol/L [facility] Comment: Please note: ??Patients with WBC >100,000 may have falsely elevated Potassium levels. ??For accurate Potassium quantification in these patients send serum separator tube (gold top) for subsequent determinations. ??Contact the Clinical Chemistry Laboratory if there are any questions. Chloride 105 98 - 107 mmol/L [facility] Carbon Dioxide 25 22 - 31 mmol/L [facility] Anion Gap 12 5 - 15 mmol/L [facility] Calcium 9.3 8.5 - 10.5 mg/dL [facility] Protein, Total 7.0 6.1 - 8.0 g/dL [facility] Albumin 4.3 3.2 - 5.2 g/dL [facility] Aspartate Aminotransferase 27 0 - 30 unit/L [facility] Alanine Aminotransferase 19 0 - 30 unit/L [facility] Alkaline Phosphatase 82 35 - 105 unit/L [facility] Bilirubin, Total <0.2(L) 0.2 - 1.3 mg/dL [facility] Est Glomerular Filtration Rate 89 >=60 mL/min/1. 73 m?? [facility] Comment: This patient's estimated GFR [...] Lab Mercy Amanda MD CHEMISTRY GLORIA LAURA [facility] [place] [address] * Ferritin (11/07/2023 7:47 AM EST) Ferritin 114 6 - 175 ng/mL [facility] Comment: Please note that as of 10/10/2023, the reference intervals for Ferritin have been updated. Blood 11/07/2023 7:47 AM EST 11/07/2023 7:52 AM EST Narrative Resulting Agency Comment Spec In Lab Mercy Amanda MD CHEMISTRY ORDLavelle LAURA Performing Organization Address [facility] Co de Phone Number [facility] [place] [address] * Hemoglobin A1c (11/07/2023 7:47 AM EST) Hemoglobin A1c 5.6 4.3 - 5.6 % [facility] Comment: Reference Range: 4.3 - [...] Mellitus, Diabetes Care 2013; 36: Suppl. 1, S67-68 Estimated Average Glucose 113 mg/dL [facility] Comment: Note: The eAG calculation has not been proven valid for women, individuals below 18 years old or above 70 years old, or individuals with hemoglobinopathies. Estimated average glucose (eAG) is calculated from the equation described in: Pedro BASURTO, Barbara J, Young R, et al. ??Translating the A1C assay into estimated average glucose values. ??Diabetes Care 2008:31(8):9134-3819. Additional resources are available on the ADA website (diabetes.org). Blood 11/07/2023 7:47 AM EST 11/07/2023 7:52 AM EST Narrative Resulting Agency Comment Spec In Lab Mercy Amanda MD CHEMISTRY GLORIA LAURA Performing Organization Address City/[facility]/ZIP Co de Phone Number [facility] [place] [address] * (ABNORMAL) Insulin, total (11/07/2023 7:47 AM EST) Insulin 38.0(H) 2.6 - 24.9 mcunit/mL [facility] Comment:Reference intervals derived from fasting individuals. Blood 11/07/2023 7:47 AM EST 11/07/2023 7:52 AM EST Narrative Resulting Agency Comment Spec In Lab Mercy Amanda MD CHEMISTRY GLORIA LAURA [facility] [place] [address] * Lipid Panel (Reflex Direct LDL) (11/07/2023 7:47 AM EST) Cholesterol, Total 218 mg/dL [facility] Comment: Lower Risk: <200 mg/dL Average Risk: 200-239 mg/dL Higher Risk: >op=987 mg/dL Triglyceride 265 mg/dL [facility] Comment: Average Risk/Lower Risk: <150 mg/dL Borderline High Risk: 150-199 mg/dL High Risk: 200-499 mg/dL Very High Risk: >fj=704 mg/dL HDL Cholesterol 40 mg/dL [facility] Comment: Males: ?? Higher Risk: <40 mg/dL Females: ?? Higher Risk: <50 mg/dL LDL Cholesterol 125 mg/dL [facility] Comment: Lowest Risk: <100 mg/dL Lower Risk: 100-129 mg/dL Borderline High Risk: 130-159 mg/dL High Risk: 160-189 mg/dL Very High Risk: >jx=129 mg/dL Cholesterol/HDL Ratio 5.4 ratio [facility] Lipid Interpretation See Note [facility] Comment: Lipid management should be guided by a patient? s ASCVD risk, goals and preferences. ACC/AHA Guidelines recommend high intensity statin if clinical ASCVD or LDL greater than or equal to 190 mg/dL. http://Vantrixurl.com/QCE-XKV-Kyprmrokn Adults aged 40-75 with LDL 70-189 mg/dL should have their 10 year ASCVD risk estimated with the ACC/AHA ASCVD risk estimator printing http://tools.acc.org/LKIMA-Isiw-Xkygtetna/ Statin should be discussed if risk greater [...] MD CHEMISTRY ORDLavelle LAURA Performing Organization Address City/[facility] Co de Phone Number [facility] [place] [address] * TSH (11/07/2023 7:47 AM EST) Thyroid Stimulating Hormone 2.82 0.27 - 4.20 mcIU/mL [facility] Comment: Reference Interval (mcIU/mL): Females: ??First Trimester: 0.23-3.88 ??Second Trimester: 0.22-3.90 ??Third Trimester: 0.44-4.66 Blood 11/07/2023 7:47 AM EST 11/07/2023 7:52 AM EST Narrative Resulting Agency Comment Spec In Lab Mercy Amanda MD CHEMISTRY ORDLavelle LAURA [facility] [place] [address] * Vitamin B12 (11/07/2023 7:47 AM EST) Vitamin B12 428 232 - 1,245 pg/mL [facility] Blood 11/07/2023 7:47 AM EST 11/07/2023 7:52 AM EST Narrative Resulting Agency Comment Spec In Lab Mercy Amanda MD CHEMISTRY ORDE RABLES Performing Organization Address City/[facility]/ZIP Co de Phone Number [facility] [place] [address] * Vitamin D, 25-Hydroxy (11/07/2023 7:47 AM EST) Vitamin D Total 25 OH 22 21 - 100 ng/mL [facility] Vit D Interp Insufficient [facility] Blood 11/07/2023 7:47 AM EST 11/07/2023 7:52 AM EST Narrative Resulting Agency Comment Spec In Lab Mercy Amanda MD CHEMISTRY GLORIA LAURA Performing Organization Address [facility] Co de Phone Number [facility] [place] [address] * Vitamin B1, whole blood (11/07/2023 7:47 AM EST) Pathologist [facility] Vit B1 Lvl Wb (MARCH) 179 70 - 180 nmol/L [facility] Comment: ADDITIONAL INFORMATION This test was developed and its performance characteristics determined by [facility] in a manner consistent with CLIA requirements. This test has not been cleared or approved by the U.S. Food and Drug Administration. Test Performed by: [facility] [place] [address] Flight Operations Specialist: Valentín Goetz M.D. Ph.D.; CLIA# [id number] Blood 11/07/2023 7:47 AM EST 11/07/2023 12:27 PM EST Narrative Resulting Agency Comment Spec In Lab Mercy Amanda MD LAB SEND OUT O RDERABLES Performing Organization Address [facility] Co de Phone Number [facility] [place] [address] * Folate, serum (11/07/2023 7:47 AM EST) Folate 9.4 4.8 - 24.2 ng/mL [facility] Blood 11/07/2023 7:47 AM EST 11/07/2023 7:52 AM EST Narrative Resulting Agency Comment Spec In Lab Mercy Amanda MD CHEMISTRY GLORIA LAURA Performing Organization Address City/[facility]/ZIP Co de Phone Number [facility] [place] [address] * PTH (11/07/2023 7:47 AM EST) Parathyroid Hormone 61 15 - 65 pg/mL [facility] Blood 11/07/2023 7:47 AM EST 11/07/2023 7:52 AM EST Narrative Resulting Agency Comment Spec In Lab Mercy Amanda MD CHEMISTRY GLORIA LAURA Performing Organization Address [facility] Co de Phone Number [facility] [place] [address] * Iron and TIBC (11/07/2023 7:47 AM EST) Iron 72 30 - 150 mcg/dL [facility] TIBC 311 250 - 450 mcg/dL [facility] Iron Saturation 23 20 - 50 % [facility] Blood 11/07/2023 7:47 AM EST 11/07/2023 7:52 AM EST Narrative Resulting Agency Comment Spec In Lab Mercy Amanda MD CHEMISTRY GLORIA LAURA Performing Organization Address City/[facility] Co de Phone Number [facility] [place] [address] documented in this encounter Visit Diagnoses Diagnosis [...] X documented in this encounter Care Teams Columnist Relationship Specialty Start Date End Date Sonido Cordoba PA [address] [place] [address] PCP - General Family Medicine 07/06/20 documented as of this encounter
--- OUTSIDE RECORDS SUMMARY | 2024-10-25 13:24 | XMS_ITS | Encounter Summary ---
Author Organization [facility] [place] [address] Care Team Providers Care Heavy Machinery Operator Name Role Phone Sonido Cordoba Primary Care Provider +1- [phone] Encounter Details Date Type Department Care Team (Late st Contact Info) Description 06/01/2023 11:29 AM EDT Anesthesia [place] [address] Kristal Monique MD [facility] [place] [address] Lizbeth Rivera CRNA [facility] [place] [address] Anesthesia Record Procedure Summary Procedure Name Responsible [...] Procedure Summary Date: 06/01/23 Room / Location: [facility]O 2 / [facility] Anesthesia Start: 1129 Anesthesia Stop: 1218 Procedures: EGD WITH BIOPSY (WRVU 2.39) (Trunk) COLONOSCOPY,SCREENING (WRVU 3.26) (Trunk) Diagnosis: (lowveprhc-hvx-Yfnehnt gerd, hoarseness, upcoming weight loss surgery per dr. szymanski) Surgeons: Steve Ji MD Responsible Provider: Kristal Monique MD Anesthesia Type: MAC ASA Status: 2 All Anesthesia Providers: Anesthesiologist: Kristal Monique MD BIOLOGY SPECIMEN TECHNICIAN: Lizbeth Rivera CRNA Vitals Value Taken Time BP 119/57 06/01/23 1230 Temp Pulse Resp 17 06/01/23 1230 SpO2 99 % 06/01/23 1234 Pain Level 0 06/01/23 1230 Vitals shown include unvalidated device data. Patient Location: PACU/[facility] Level of Consciousness: Awake and Alert Pain [...] 3.66) performed by Erum Szymanski MD at [facility] PRO COLONOSCOPY, BIOPSY N/A 09/04/2019 COLONOSCOPY FLEXIBLE, WITH BX (WRVU 3.66) performed by Steve Ji MD at [facility] PRO COLONOSCOPY, DIAGNOSTIC N/A 09/04/2019 COLONOSCOPY, DIAGNOSTIC performed by Steve Ji MD at [facility] PRO COLONOSCOPY, REMV LESN, SNARE N/A 08/21/2018 COLONOSCOPY, POLYPECTOMY, REMOVAL LESION BY SNARE (WRVU 4.67) performed by Erum Szymanski MD at [facility]COPY PRO CYSTO W URETEROSCOPY &/OR PYELOSCOPY, DX Right 06/01/2015 CYSTOURETEROSCOPY, DIAGNOSTIC performed by Darius Nuñez Jr., MD at [facility] MA[facility] OR PRO CYSTOSCOPY, INSERT URETERAL STENT Right 06/01/2015 CYSTO, STENT PLACEMENT performed by Darius Nuñez Jr., MD at [facility] MA[facility] OR PRO LAP, ESOPHAGOGAST FUNDOPLASTY N/A 04/05/2015 LAPAROSCOPIC TYESHA FUNDOPLASTY performed by Valentín Moura MD at [facility] MAIN OR PRO PERCUT DILATN RENAL TRACT Right 06/01/2015 PERCUTANEOUS INTRO GUIDE WIRE TO ACCESS RENAL PELVIS,AND OR URETER, W\DILATION performed by Darius Nuñez Jr., MD at [facility] MAIN OR PRO PERQ NL/PL LITHOTRIPSY SIMPLE UP TO 2 CM 1 LOCATION Right 06/01/2015 NEPHROLITHOTOMY, (PCNL) PERCUTANEOUS performed by Darius Nuñez Jr., MD at [facility] MAIN OR PRO REPAIR PERONEAL TENDONS Right 08/12/2020 PERONEAL TENDON REPAIR (WRVU 7.35) performed by Mani Jefferson MD at [facility] OSC PRO UPPER GI ENDOSCOPY, BIOPSY N/A 01/27/2015 EGD WITH BIOPSY performed by Brandt Barlow MD at [facility] PRO UPPER GI ENDOSCOPY, BIOPSY N/A 02/28/2016 EGD WITH BIOPSY performed by Brandt Barlow MD at [facility] PRO UPPER GI ENDOSCOPY, BIOPSY N/A 09/04/2016 EGD WITH BIOPSY performed by Brandt Barlow MD at [facility] PRO UPPER GI ENDOSCOPY, BIOPSY N/A 09/24/2017 EGD WITH BIOPSY (WRVU 2.49) performed by Brandt Barlow MD at [facility] PRO UPPER GI ENDOSCOPY, BIOPSY N/A 08/21/2018 EGD WITH BIOPSY (WRVU 2.49) performed by Erum Szymanski MD at [facility] PRO UPPER GI ENDOSCOPY, BIOPSY N/A 09/04/2019 UPPER GASTROINTESTINAL ENDOSCOPY,WITH BIOPSY SINGLE OR MULTIPLE (WRVU 2.49) performed by Steve Ji MD at [facility] PRO UPPER GI ENDOSCOPY, BIOPSY N/A 05/24/2021 EGD WITH BIOPSY (WRVU 2.49) performed by Kathy Carnes MD at [facility] PRO UPPER GI ENDOSCOPY, DIAGNOSTIC N/A 09/04/2019 EGD, UPPER GI ENDOSCOPY performed by Steve Ji MD at [facility] TONSILLECTOMY Social History Tobacco Use Smoking [...] risks discussed with patient. Plan discussed with BIOLOGY SPECIMEN TECHNICIAN. Anesthesia Screening documented in this encounter Plan of Treatment Upcoming Encounters Date Type Department Care Team (Late st Contact Info) Description 11/26/2024 8:45 AM EST Appointment Ultrasound at [place] [phone] Keri Avila [address] [place] [address] 12/31/2024 10:00 AM EST Office Visit Weight Center at [place] [phone] Mercy Amanda MD [facility] DR [facility] [address] 04/01/2025 2:00 PM EDT Office [place] [address] Erum Szymanski MD [facility] [place] [address] documented as of this encounter Goals Goal [...] mg documented in this encounter Care Teams Heavy Machinery Operator Relationship Specialty Start Date End Date Sonido Cordoba PA [address] [place] [address] PCP - General Family Medicine 07/06/20 documented as of this encounter
--- OUTSIDE RECORDS SUMMARY | 2024-10-25 13:24 | XMS_ITS | Encounter Summary ---
[place] [address] Care Team Providers Care Associate Professor Of Surgery Name Role Phone Sonido Cordoba Primary Care Provider +1- [phone] Encounter Details Date Type Department Care Team (Late st Contact Info) Description 09/14/2023 2:00 PM EST Office [place] [address] Juliette Lu PsyD [facility] [place] [address] Post-traumatic stress disorder, unspecified Social History Tobacco [...] BARIATRIC SURGERY PSYCHOLOGY FOLLOW UP NOTE [facility] [address] Dept: [phone] Loc: [phone] 09/14/2023 2:02 PM Vianney Cordero is a [...] follows: F/u in 1.5-2 mo with current [facility] BH Provider to re-evaluate apparent severe PTSD sxs (potentially underreported). [facility] Scheduling team will call pt to schedule [...] 11/26/2024 8:45 AM EST Appointment Ultrasound at [place] [phone] Keri Avila [address] [place] [address] 12/31/2024 10:00 AM EST Office Visit Weight Center at [address] Mercy Amanda MD [facility] [address] [facility] [address] 04/01/2025 2:00 PM EDT Office Visit Gastroenterology at [place] [phone] Erum Szymanski MD [facility] [place] [address] documented as of this encounter Goals Goal [...] unspecified documented in this encounter Care Teams Associate Professor Of Surgery Relationship Specialty Start Date End Date Sonido Cordoba PA [address] [place] [address] PCP - General Family Medicine 07/06/20 documented as of this encounter
--- OUTSIDE RECORDS SUMMARY | 2024-10-25 13:24 | XMS_ITS | Encounter Summary ---
[place] [address] Care Team Providers Care Dietetic Aide Name Role Phone Sonido Cordoba Primary Care Provider +1- [phone] Reason for Visit * Reason Onset Date Comments Appointment 08/14/2023 Encounter Details Date Type Department Care Team (Late st Contact Info) Description 08/14/2023 Telephone [place] [address] Viviana Mcneal Appointment Social History Tobacco Use [...] PM EDT LVM and sent letter via [employer] portal about scheduling appointment(s), please schedule from recall(s) for Weight and Wellness. Please offer first available and place appointment on wait list. documented in this encounter Plan of Treatment Upcoming Encounters Date Type Department Care Team (Late st Contact Info) Description 11/26/2024 8:45 AM EST Appointment [place] [address] Keri Avila [address] [place] [address] 12/31/2024 10:00 AM EST Office [place] [address] Mercy Amanda MD [facility] DR [facility] [place] [address] 04/01/2025 2:00 PM EDT Office [place] [address] Erum Szymanski MD [facility] [place] [address] documented as of this encounter Goals Goal [...] a priority: - Eggs - Cheese - Brazilian yogurt / cottage cheese - meat - [...] on filedocumented in this encounter Care Teams Dietetic Aide Relationship Specialty Start Date End Date Sonido Cordoba PA [address] [place] [address] PCP - General Family Medicine 07/06/20 documented as of this encounter
--- OUTSIDE RECORDS SUMMARY | 2024-10-25 13:24 | XMS_ITS | Encounter Summary ---
[place] [address] Care Team Providers Care Inspector Receiving Name Role Phone Sonido Cordoba Primary Care Provider +1- [phone] Encounter Details Date Type Department Care Team [...] 11/26/2024 8:45 AM EST Appointment [place] [address] Keri Avila [address] [place], [place] [address] 12/31/2024 10:00 AM EST Office [place] [address] Mercy Amanda MD [facility] DR [facility] [address] 04/01/2025 2:00 PM EDT Office Visit Gastroenterology at [facility] [place] [address] Erum Szymanski MD [facility] [place] [address] documented as of this encounter Goals Goal [...] a priority: - Eggs - Cheese - Chadian yogurt / cottage cheese - meat - fish - nuts/seeds - protein shake or bar Start with the protein, can choose to add other foods (would rather have you choose regular bread/ faroese muffin, etc. - whole wheat if possible- [...] filedocumented in this encounter Care Teams Inspector Receiving Relationship Specialty Start Date End Date Sonido Cordoba PA [address] [place] [address] PCP - General Family Medicine 07/06/20 documented as of this encounter
--- OUTSIDE RECORDS SUMMARY | 2024-10-25 13:24 | XMS_ITS | Encounter Summary ---
Author Organization [facility] [place] [address] Care Team Providers Care Mailroom Associate Name Role Phone Sonido Cordoba Primary Care Provider +1- [phone] Encounter Details Date Type Department Care Team (Late st Contact Info) Description 07/25/2023 5:00 PM EDT Office [place] [phone] Mercy Amanda MD [facility] DR [facility] MEDICINE [place], [place] [phone] Class 3 severe obesity with serious comorbidity [...] from the original note were not included. [facility] [place] Patient Name: Vianney Cordero Date of : [...] and comorbidities GERD/Barretts. This is Visit #10 [facility] visit for this 47 y.o. patient. Initial [...] lbs (+ 2 lbs, + 15 lbs) [facility] Team: Priti Skinner RD and Erik Sorenson, Health Stack Matcher HPI On the BSP, done with RD visits. Behaviors: eating and drinking Taking time to eat meals Eating three meals Protein at each Drinking water - likes Hint Just had EGD: Long segment Rodgers's above intact Addie; bx negative for dysplasia Had colo which was WNL. Mammo done at [facility] - requested Pt will get PE[facility]Pap [facility] from [facility] Stress - work is more stressful, short staffing is interfering with appt. Sleep - sleeping better, sleeps at [place] closer to work Sleep Apnea Assessment: STOP [...] Saxenda denied - no AOMs covered by [place] Medicaid C/I: GB? NO s/p lap CCY [...] this surgery. Cont f/u. 10/06/2021 7:00 PM [facility] PATHWAY - ADULT Obesity Medicine Activate Adult [...] (would rather have you choose regular bread/ divehi muffin, etc. - whole wheat if possible- [...] 07/25/23 1657 BP: (!) 148/99 BP Location ([facility]): Right arm Patient Position: Sitting BP Cuff [...] (H) 02/10/2022 Lab Results Component Value Date [id number] 02/10/2022 25-OH Vit D Total (ng/mL) [...] this time Co-morbidities addressed: GERD Referrals pending: [facility] psych - pre bariatric AOM: Metformin XR [...] me. 1 min chart review 30 min [id number] Visit time 5 min Documentation time I [...] 11/26/2024 8:45 AM EST Appointment Ultrasound at [address] Keri Avila [address] [address] 12/31/2024 10:00 AM EST Office Visit Weight Center at [place] [phone] Mercy Amanda MD [facility] DR [facility] [address] 04/01/2025 2:00 PM EDT Office Visit Gastroenterology at [place] [phone] Erum Szymanski MD [facility] [place] [address] documented as of this encounter [...] (would rather have you choose regular bread/ divehi muffin, etc. - whole wheat if possible- [...] deficiency documented in this encounter Care Teams Mailroom Associate Relationship Specialty Start Date End Date Sonido Cordoba PA [address] [place] [address] PCP - General Family Medicine 07/06/20 documented as of this encounter
--- OUTSIDE RECORDS SUMMARY | 2024-10-25 13:24 | XMS_ITS | Encounter Summary ---
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; Gastroesophageal reflux disease [...] 11/26/2024 8:45 AM EST [place] [address] DandreKeri Jerome [address] [place] [address] 12/31/2024 10:00 AM EST Office [place] [address] Mercy Amanda MD [facility] [address] [place] [address] 04/01/2025 2:00 PM EDT Office Visit [place] [address] Erum Szymanski MD [facility] [place] [address] documented as of this encounter Goals Goal [...] a priority: - Eggs - Cheese - Tuvaluan yogurt / cottage cheese - meat - [...] hemorrhage documented in this encounter Care Teams Correctional Corporal Relationship Specialty Start Date End Date Sonido Cordoba PA [address] [place] [address] PCP - General Family Medicine 07/06/20 documented as of this encounter
--- OUTSIDE RECORDS SUMMARY | 2024-10-25 13:24 | XMS_ITS | Encounter Summary ---
[place] [address] Care Team Providers Care Truck Leasing Manager Name Role Phone Sonido Cordoba Primary Care Provider +1- [phone] Encounter Details Date Type Department Care Team (Late st Contact Info) Description 04/23/2023 Telephone [place] [address] Perri Christianson Social History Tobacco [...] provider needs to have visit done via [facility], asked pt to kofi rtn call to confirm receipt of message Return calls can be handled by: [employer] documented in this encounter Plan of Treatment Upcoming Encounters Date Type Department Care Team (Late st Contact Info) Description 11/26/2024 8:45 AM EST Appointment [place] [address] Keri Avila [address] [place] [address] 12/31/2024 10:00 AM EST Office [place] [address] Mercy Amanda MD [facility] DR [facility] [address] 04/01/2025 2:00 PM EDT Office [place] [address] Erum Szymanski MD [facility] [place] [address] documented as of this encounter Goals Goal [...] a priority: - Eggs - Cheese - Upper Sorbian yogurt / cottage cheese - meat - [...] filedocumented in this encounter Care Teams Truck Leasing Manager Relationship Specialty Start Date End Date Sonido Cordoba PA [address] [place] [address] PCP - General Family Medicine 07/06/20 documented as of this encounter
--- OUTSIDE RECORDS SUMMARY | 2024-10-25 13:24 | XMS_ITS | Encounter Summary ---
[place] [address] Care Team Providers Care Occupational Hygienist Name Role Phone Sonido Cordoba Primary Care Provider +1- [phone] Encounter Details Date Type Department Care Team (Late st Contact Info) Description 10/04/2023 Telephone [place] [phone] Juliette Lu PsyD [facility] [place] [address] Social History Tobacco Use Types Packs/Day Years [...] 10 AM, 10/04, as planned, to discuss [facility] [place]. Pt answered, and stated she would prefer to talk today between 1-2:30 PM. Provider called pt at approx 1:12 PM to discuss [facility]/ psychotherapy referral and engagement process. Pt did not answer and provider was unable to LVM. Pt is encouraged to call [facility] Psychiatry to discuss tx process. Additionally, per this provider's 09/14/23 [facility] visit, pt is recommended to attend a f/u Bariatric Surgery appointment with this provider (Juliette Lu PsyD). documented in this encounter Plan of Treatment Upcoming Encounters Date Type Department Care Team (Late st Contact Info) Description 11/26/2024 8:45 AM EST Appointment [place] [address] Keri Avila [address] [address] 12/31/2024 10:00 AM EST Office [place] [address] Mercy Amanda MD [facility] DR [facility] [place] [address] 04/01/2025 2:00 PM EDT Office Visit [place] [address] Erum Szymanski MD [facility] GASTROENTER[place] [address] documented as of this encounter Goals Goal [...] on filedocumented in this encounter Care Teams Occupational Hygienist Relationship Specialty Start Date End Date Sonido Cordoba PA [address] [place] [address] PCP - General Family Medicine 07/06/20 documented as of this encounter
--- OUTSIDE RECORDS SUMMARY | 2024-10-25 13:24 | XMS_ITS | Encounter Summary ---
Author Organization [facility] [place] [address] Care Team Providers Care Padding Gluer Name Role Phone Sonido Cordoba Primary Care Provider +1- [phone] Encounter Details Date Type Department Care Team (Late st Contact Info) Description 10/10/2023 Telephone Psychiatry [place] [address] Chrystal Metz, PhD [facility] [place] [address] Social History Tobacco Use Types Packs/Day Years [...] 11/26/2024 8:45 AM EST [place] [address] RubyDiamondKeri Sanches [address] [place] [address] 12/31/2024 10:00 AM EST Office [place] [address] Mercy Amanda MD [facility] DR [facility] [address] 04/01/2025 2:00 PM EDT Office [place] [address] Erum Szymanski MD [facility] [place] [address] documented as of this encounter Goals Goal [...] a priority: - Eggs - Cheese - Persian yogurt / cottage cheese - meat - fish - nuts/seeds - protein shake or bar Start with the protein, can choose to add other foods (would rather have you choose regular bread/ luxembourgish muffin, etc. - whole wheat if possible- [...] on filedocumented in this encounter Care Teams Padding Gluer Relationship Specialty Start Date End Date Sonido Cordoba PA [address] [place] [address] PCP - General Family Medicine 07/06/20 documented as of this encounter
--- OUTSIDE RECORDS SUMMARY | 2024-10-25 13:24 | XMS_ITS | Encounter Summary ---
Author Organization Formerly [facility] Address [facility] [place] [address] Care Team Providers Care Continuing Education Instructor Name Role Phone Sonido Cordoba Primary Care Provider +1- [phone] Encounter Details Date Type Department Care Team (Late st Contact Info) Description 06/01/2023 10:30 AM EDT - 06/01/2023 11:30 AM EDT [place] [phone] Steve Ji MD [facility] [place] [place] [address] EGD WITH BIOPSY (WRVU 2.39) Social History [...] the day after the procedure, use an bfxy-mrm-vqvwvoy spray to numb your throat. Sucking on [...] occurs, please contact your Doctor. Please call [phone] before 8pm Mon-Fri with problems, questions or concerns. If you call after 8pm or on weekends, call the Hospital at [phone] and ask to speak to the Student Support Counselor environmental issues instructor and the agency operator will contact that person for you. When should you call for help? Call [phone] anytime you think you may need emergency [...] any problems. Where can you learn more? [facility] View your After Visit Summary and more online at [email or web address] If you would like to provide feedback about your hospital experience, please call the Office of Patient and Family Relations at . If you have received this After Visit Summary in error, please immediately return it in person to the department, or notify the [facility] Privacy Office by calling toll free at between the hours of 8AM and 5PM to arrange for our retrieval of the documents at no cost to you. Content Version: 12.2 ?? 0249-5945 [employer]. Care instructions adapted under license by [facility]. If you have questions about a medical condition or this instruction, always ask your healthcare professional. [employer] disclaims any warranty or liability for your [...] occurs, please contact your Doctor. Please call [phone] before 8pm Mon-Fri with problems, questions or concerns. If you call after 8pm or on weekends, call the Hospital at [phone] and ask to speak to the Student Support Counselor environmental issues instructor and the agency operator will contact that person for you. When should you call for help? Call [phone] anytime you think you may need emergency [...] any problems. Where can you learn more? [facility] View your After Visit Summary and more online at [email or web address] If you would like to provide feedback about your hospital experience, please call the Office of Patient and Family Relations at . If you have received this After Visit Summary in error, please immediately return it in person to the department, or notify the [facility] Privacy Office by calling toll free at between the hours of 8AM and 5PM to arrange for our retrieval of the documents at no cost to you. Content Version: 12.2 ?? 2126-9448 [employer]. Care instructions adapted under license by [facility]. If you have questions about a medical condition or this instruction, always ask your healthcare professional. [employer] disclaims any warranty or liability for your [...] occurs, please contact your Doctor. Please call [phone] before 8pm Mon-Fri with problems, questions or concerns. If you call after 8pm or on weekends, call the Hospital at [phone] and ask to speak to the Student Support Counselor environmental issues instructor and the agency operator will contact that person for you. When should you call for help? Call [phone] anytime you think you may need emergency [...] any problems. Where can you learn more? [facility] View your After Visit Summary and more online at [email or web address] If you would like to provide [...] cost to you. Content Version: 12.2 ?? 4805-5191 [employer]. Care instructions adapted under license by [facility]. If you have questions about a medical condition or this instruction, always ask your healthcare professional. [employer] disclaims any warranty or liability for your [...] 07/02/2023 pantoprazole EC (Protonix) [address] tabletIndications:Lynco tt's esophagus without dysplasia,Gastroesophag eal reflux disease [...] complication. Informed Consent signed by patient (or artist representative). documented in this encounter Plan of Treatment Upcoming Encounters Date Type Department Care Team (Late st Contact Info) Description 11/26/2024 8:45 AM EST [place] [address] Keri Avila [address] [place] [address] 12/31/2024 10:00 AM EST Office Visit Weight Center at [place] [phone] Mercy Amanda MD [facility] [address] [place] [address] 04/01/2025 2:00 PM EDT Office [place] [phone] Erum Szymanski MD [facility] GASTROENTEROLOGY [place], [place] [phone] documented as of this encounter Goals Goal [...] a priority: - Eggs - Cheese - Cayman Islander yogurt / cottage cheese - meat [...] Routine 06/01/2023 11:47 AM EDT Colonoscopy, Diagnostic (09757) 06/01/2023 11:36 AM EDT ksxikxogf-paa-Sgndt ng gerd, hoarseness, upcoming weight loss surgery per dr. szymanski Upper Gi Endoscopy, Biopsy ([id number]) 06/01/2023 11:36 AM EDT liwusctbv-hcb-Nbaau ng gerd, hoarseness, upcoming weight loss surgery per dr. szymanski UPPER GI ENDOSCOPY Routine 06/01/2023 11 :20 AM EDT COLONOSCOPY Routine 06/01/2023 11:20 AM EDT documented in this encounter Results * Specimen to Pathology (06/01/2023 12:02 PM EDT) AP Specimen 06/01/2023 12:0 2 PM EDT 06/01/2023 12:02 PM EDT Narrative [facility] - 06/01/2023 12:02 PM EDT Specimen requisition ordered. ??Separate Pathology report to follow Steve Ji MD PATHOLOGY/CYTOLOG Y ORDERABLES Performing Organization Address City/[facility]/ZIP [place] [address] * Specimen to Pathology (06/01/2023 12:02 PM EDT) AP Specimen 06/01/2023 12:0 2 PM EDT 06/01/2023 12:02 PM EDT Narrative [facility] - 06/01/2023 12:02 PM EDT Specimen requisition ordered. ??Separate Pathology report to follow Steve Ji MD PATHOLOGY/CYTOLOG Y ORDERABLES Performing Organization Address City/[facility]/ZIP [place] [address] * Specimen to Pathology (06/01/2023 12:02 PM EDT) AP Specimen 06/01/2023 12:0 2 PM EDT 06/01/2023 12:02 PM EDT Narrative [facility] - 06/01/2023 12:02 PM EDT Specimen requisition ordered. ??Separate Pathology report to follow Steve Ji MD PATHOLOGY/CYTOLOG Y ORDERABLES Performing Organization Address City/[facility]/ZIP [place] [address] * Specimen to Pathology (06/01/2023 12:02 PM EDT) AP Specimen 06/01/2023 12:0 2 PM EDT 06/01/2023 12:02 PM EDT Narrative [facility] - 06/01/2023 12:02 PM EDT Specimen requisition ordered. ??Separate Pathology report to follow Steve Ji MD PATHOLOGY/CYTOLOG Y ORDERABLES [facility] [place] [address] * Surgical Pathology Report (06/01/2023 11:47 AM EDT) Final Diagnosis [id number] ? Location: 4T; EA10; A The signing [...] Samira Verified: ??06/09/2023 19:41 ??Pathologist Performed at: ??-[facility] Dept. of Pathology, [place] [address] Cleaner Window: Ayad Dee MD, FCAP, ??CLIA Certificate: [id number] SPECIMEN(S) SUBMITTED A - 34-35 cm esophagus, [...] labeled D1. ??nrl 06/09/2023 7:41 PM EDT [facility] GI Biopsy 06/01/2023 11:4 7 AM EDT 06/01/2023 11:47 AM EDT GI Biopsy 06/01/2023 11:4 7 AM EDT 06/01/2023 11:47 AM EDT GI Biopsy 06/01/2023 11:4 7 AM EDT 06/01/2023 11:47 AM EDT GI Biopsy 06/01/2023 11:4 7 AM EDT 06/01/2023 11:47 AM EDT Steve Ji MD PATHOLOGY/CYTOLOG Y ORDERABLES [facility] [place] [address] [facility] [place] [address] * UPPER GI ENDOSCOPY (06/01/2023 11:20 AM EDT) UPPER GI ENDOSCOPY [facility] Endoscopy ___ Procedure Date: 06/01/2023 11:20 AM ? Patient Name: Vianney Cordero ? Date of : 1975 ? Age: 47 ? Order #: [id number] ? Instrument Name: EG-[id number]- [id number] ? ___ Procedure: ? Upper GI endoscopy Indications: ? Heartburn, Follow-up of ? gastro-esophageal reflux disease, ? Surveillance for malignancy due to ? personal history of Rodgers's ? esophagus Patient Profile: ? This is a 47 year old female with ? history of long segment Rodgers's ? s/p hernia repair (Addie). Providers: ? Steve Ji MD, Tessa ? Ashish Gonzalez RN, Sushant ? Confalone Referring MD: ?WANDY [...] * COLONOSCOPY (06/01/2023 11:20 AM EDT) COLONOSCOPY [facility] Endoscopy Procedure Date: 06/01/2023 11:20 AM ? Patient Name: Vianney Cordero ? Date of : 1975 ? Age: 47 ? Order #: [id number] ? Instrument Name: [id number]- [id number] ? Procedure: ? Colonoscopy Indications: ? High risk colon cancer ? surveillance: Personal history of ? colonic polyps, Family history of ? colon cancer in a first-degree ? relative before age 60 years Patient Profile: ? This is a 47 year old female. Providers: ? Steve Ji MD, Ashish Hall ? NIMCO Araya, Sushant Frost MD: ?Erum Szymanski MD Medicines: [...] preparation was evaluated ? using the BBPS ([place] Bowel ? Preparation Scale) with scores of: [...] Recovery documented in this encounter Care Teams Continuing Education Instructor Relationship Specialty Start Date End Date Sonido Cordoba PA [address] [place] [address] PCP - General Family Medicine 07/06/20 documented as of this encounter
--- OUTSIDE RECORDS SUMMARY | 2024-10-25 13:24 | XMS_ITS | Encounter Summary ---
[place] [address] Care Team Providers Care Cut Out Machine Operator Name Role Phone Sonido Cordoba Primary Care Provider +1- [phone] Reason for Visit * Reason Onset Date Comments Medication Refill 05/09/2023 Encounter Details Date Type Department Care Team (Late st Contact Info) Description 05/09/2023 Refill [place] [address] Viviana Mcneal Class 3 severe obesity with [...] 11/26/2024 8:45 AM EST Appointment [place] [phone] Keri Avila [address] [place] [address] 12/31/2024 10:00 AM EST Office [place] [address] Mercy Amanda MD [facility] DR [facility] [address] 04/01/2025 2:00 PM EDT Office [place] [address] Erum Szymanski MD [facility] [place] [address] documented as of this encounter Goals Goal [...] a priority: - Eggs - Cheese - Qatari yogurt / cottage cheese - meat - [...] type documented in this encounter Care Teams Cut Out Machine Operator Relationship Specialty Start Date End Date Sonido Cordoba PA [address] [place] [address] PCP - General Family Medicine 07/06/20 documented as of this encounter
--- OUTSIDE RECORDS SUMMARY | 2024-10-25 13:24 | XMS_ITS | Encounter Summary ---
Author Organization [facility] [place] [address] Care Team Providers Care Semiconductor Packages Platemaker Name Role Phone Sondio Cordoba Primary Care Provider +1- [phone] Reason for Visit * Reason Comments Medication Refill Encounter Details Date Type Department Care Team (Late st Contact Info) Description 10/02/2023 [place] [address] Mercy Amanda MD [facility] [address] [place] [address] Class 3 severe obesity with serious comorbidity [...] 11/26/2024 8:45 AM EST [place] [address] DandreJustus Keri [address] [place] [address] 12/31/2024 10:00 AM EST Office [place] [address] Mercy Amanda MD [facility] [address] [place] [address] 04/01/2025 2:00 PM EDT Office [place] [address] Erum Szymanski MD [facility] [place] [address] documented as of this encounter Goals Goal [...] (would rather have you choose regular bread/ uruguayan muffin, etc. - whole wheat if possible- [...] X documented in this encounter Care Teams Semiconductor Packages Platemaker Relationship Specialty Start Date End Date Sonido Cordoba PA [address] [place] [address] PCP - General Family Medicine 07/06/20 documented as of this encounter
--- OUTSIDE RECORDS SUMMARY | 2024-10-25 13:24 | XMS_ITS | Encounter Summary ---
[place] [address] Care Team Providers Care Access Clinician Name Role Phone Sonido Cordoba Primary Care Provider +1- [phone] Encounter Details Date Type Department Care Team (Late st Contact Info) Description 09/24/2023 Telephone [place] [phone] Juliette Lu PsyD [facility] [place] [address] Social History Tobacco Use Types Packs/Day Years [...] pt at approx 2:20 PM to discuss [facility]/ psychotherapy referral and engagement process. Pt did not answer and provider was unable to LVM. Pt is encouraged to call [facility] Psychiatry to discuss tx process. documented in this encounter Plan of Treatment Upcoming Encounters Date Type Department Care Team (Late st Contact Info) Description 11/26/2024 8:45 AM EST Appointment [place] [phone] Keri Avila [address] [place] [address] 12/31/2024 10:00 AM EST Office Visit [place] [address] Mercy Amanda MD [facility] [address] [place] [address] 04/01/2025 2:00 PM EDT Office Visit G[place] [phone] Erum Szymanski MD [facility] [place] [address] documented as of this encounter Goals Goal [...] on filedocumented in this encounter Care Teams Access Clinician Relationship Specialty Start Date End Date Sonido Cordoba PA [address] [place] [address] PCP - General Family Medicine 07/06/20 documented as of this encounter
--- OUTSIDE RECORDS SUMMARY | 2024-10-25 13:24 | XMS_ITS | Encounter Summary ---
[place] [address] Care Team Providers Care Warehouse Team Member Name Role Phone Sonido Cordoba Primary Care Provider +1- [phone] Encounter Details Date Type Department Care Team [...] 11/26/2024 8:45 AM EST [place] [address] Keri Avila [address] [place], [place] [address] 12/31/2024 10:00 AM EST Office [place] [address] [facility] [address] [place] [address] 04/01/2025 2:00 PM EDT Office Visit Gastroenterology at [facility] [place] [address] [facility] [place] [address] documented as of this encounter Goals Goal [...] a priority: - Eggs - Cheese - Belgian yogurt / cottage cheese - meat - [...] on filedocumented in this encounter Care Teams Warehouse Team Member Relationship Specialty Start Date End Date Sonido Cordoba PA [address] [place] [address] PCP - General Family Medicine 07/06/20 documented as of this encounter
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
--- OUTSIDE RECORDS SUMMARY | 2024-10-25 13:24 | XMS_ITS | Encounter Summary ---
Author Organization [facility] [place] [address] Care Team Providers Care Scale Technician Name Role Phone Sonido Cordoba Primary Care Provider [phone]- [phone] Encounter Details Date Type Department Care Team (Late st Contact Info) Description 10/08/2023 9:30 AM EST TH Visit (TeleHealth) [place] [phone] Mercy Amanda MD [facility] [address] [place] [address] Class 3 severe obesity with serious comorbidity [...] this video visit, pt is located at: [facility] Patient Name: Vianney Cordero Date of : [...] and comorbidities GERD/Barretts. This is Visit #11 [facility] visit for this 47 y.o. patient. [...] 07/25/2023, no new weight 10/08/2023, 246 lbs [facility] Team: Priti Skinner RD and Erik Sorenson, Health [employer] HPI Still YELLOW. Has appt with psych [...] above intact Addie; bx negative for dysplasia Mcdonald 05/2023: WNL Mammo [facility] - in media Pt will get PE/Pap report from [facility] - will drop this off Contraception - [...] B/L. AOM HX: NO AOMs covered by [place] Medicaid C/I: GB? NO s/p lap CCY [...] MD and psych f/u. 10/06/2021 7:00 PM [facility] PATHWAY - ADULT Obesity Medicine Activate [...] a priority: - Eggs - Cheese - Moldovan yogurt / cottage cheese - meat - [...] (H) 02/10/2022 Lab Results Component Value Date [id number] 02/10/2022 25-OH Vit D Total (ng/mL) [...] this time Co-morbidities addressed: GERD Referrals pending: [facility] psych - pre bariatric AOM: Metformin [...] Team. 1 min chart review 25 min [id number] Visit time 5 min Documentation time I [...] 11/26/2024 8:45 AM [place] [phone] [address] 12/31/2024 10:00 AM EST Office [place] [phone] Mercy Amanda MD [facility] [address] [facility] [place] [address] 04/01/2025 2:00 PM EDT Office Visit Gastroenterology at [facility], [place] [address] Erum Szymanski MD [facility] [place] [address] documented as of this encounter Goals Goal [...] a priority: - Eggs - Cheese - Moldovan yogurt / cottage cheese - meat - [...] whole blood (11/07/2023 7:47 AM EST) Pathologist [facility] Vit B1 Lvl Wb (MARCH) 179 70 - 180 nmol/L [facility] Comment: ADDITIONAL INFORMATION This test was developed and its performance characteristics determined by [facility] in a manner consistent with CLIA requirements. This test has not been cleared or approved by the U.S. Food and Drug Administration. Test Performed by: [facility] [address] [place] [id number] Camouflage Specialist: Valentín Goetz M.D. Ph.D.; CLIA# [id number] Blood 11/07/2023 7:47 AM EST 11/07/2023 12:27 PM EST Narrative Resulting Agency Comment Spec In Lab Mercy Amanda MD LAB SEND OUT O RDERABLES Performing Organization Address [facility]/ZIP Co de Phone Number [facility] [place] [place] [address] * Iron and TIBC (11/07/2023 7:47 AM EST) Iron 72 30 - 150 mcg/dL [facility] TIBC 311 250 - 450 mcg/dL [facility] Iron Saturation 23 20 - 50 % [facility] Blood 11/07/2023 7:47 AM EST 11/07/2023 7:52 AM EST Narrative Resulting Agency Comment Spec In Lab Mercy Amanda MD CHEMISTRY ORDE ONOFFMIX (?)KIM Performing Organization Address [facility] Co de Phone Number [facility] [place] [address] * PTH (11/07/2023 7:47 AM EST) Parathyroid Hormone 61 15 - 65 pg/mL [facility] Blood 11/07/2023 7:47 AM EST 11/07/2023 7:52 AM EST Narrative Resulting Agency Comment Spec In Lab Mercy Amanda MD CHEMISTRY ORDE RABKIM Performing Organization Address City/[facility]/ZIP Co de Phone Number [facility] [place] [address] * Folate, serum (11/07/2023 7:47 AM EST) Folate 9.4 4.8 - 24.2 ng/mL [facility] Blood 11/07/2023 7:47 AM EST 11/07/2023 7:52 AM EST Narrative Resulting Agency Comment Spec In Lab Mercy Amanda MD CHEMISTRY GLORIA LAURA [facility] [place] [address] * Vitamin D, 25-Hydroxy (11/07/2023 7:47 AM EST) Vitamin D Total 25 OH 22 21 - 100 ng/mL [facility] Vit D Interp Insufficient [facility] Blood 11/07/2023 7:47 AM EST 11/07/2023 7:52 AM EST Narrative Resulting Agency Comment Spec In Lab Mercy Amanda MD CHEMISTRY GLORIA LAURA [facility] [place] [address] * Vitamin B12 (11/07/2023 7:47 AM EST) Vitamin B12 428 232 - 1,245 pg/mL [facility] Blood 11/07/2023 7:47 AM EST 11/07/2023 7:52 AM EST Narrative Resulting Agency Comment Spec In Lab Mercy Amanda MD CHEMISTRY GLORIA LAURA [facility] [place] [address] * TSH (11/07/2023 7:47 AM EST) Thyroid Stimulating Hormone 2.82 0.27 - 4.20 mcIU/mL [facility] Comment: Reference Interval (mcIU/mL): Females: ??First Trimester: 0.23-3.88 ??Second Trimester: 0.22-3.90 ??Third Trimester: 0.44-4.66 Blood 11/07/2023 7:47 AM EST 11/07/2023 7:52 AM EST Narrative Resulting Agency Comment Spec In Lab Mercy Amanda MD CHEMISTRY GLORIA LAURA [facility] [place] [address] * Lipid Panel (Reflex Direct LDL) (11/07/2023 7:47 AM EST) Cholesterol, Total 218 mg/dL [facility] Comment: Lower Risk: <200 mg/dL Average Risk: 200-239 mg/dL Higher Risk: >kr=806 mg/dL Triglyceride 265 mg/dL [facility] Comment: Average Risk/Lower Risk: <150 mg/dL Borderline High Risk: 150-199 mg/dL High Risk: 200-499 mg/dL Very High Risk: >bj=495 mg/dL HDL Cholesterol 40 mg/dL [facility] Comment: Males: ?? Higher Risk: <40 mg/dL Females: ?? Higher Risk: <50 mg/dL LDL Cholesterol 125 mg/dL [facility] Comment: Lowest Risk: <100 mg/dL Lower Risk: 100-129 mg/dL Borderline High Risk: 130-159 mg/dL High Risk: 160-189 mg/dL Very High Risk: >sz=553 mg/dL Cholesterol/HDL Ratio 5.4 ratio [facility] Lipid Interpretation See Note [facility] Comment: Lipid management should be guided by a patient? s ASCVD risk, goals and preferences. ACC/AHA Guidelines recommend high intensity statin if clinical ASCVD or LDL greater than or equal to 190 mg/dL. http://tinyurl.com/SQU-KCP-Msmahmrgz Adults aged 40-75 with LDL 70-189 mg/dL should have their 10 year ASCVD risk estimated with the ACC/AHA ASCVD risk senior electrical estimator http://tools.acc.org/ISSGZ-Lsuz-Frjmwujdu/ Statin should be discussed if risk greater [...] In Lab Mercy Amanda MD CHEMISTRY ORDE ONOFFMIX (?)KIM Performing Organization Address City/[facility]/ZIP Co de Phone Number [facility] [place] [place] [address] * (ABNORMAL) Insulin, total (11/07/2023 7:47 AM EST) Insulin 38.0(H) 2.6 - 24.9 mcunit/mL [facility] Comment:Reference intervals derived from fasting individuals. Blood 11/07/2023 7:47 AM EST 11/07/2023 7:52 AM EST Narrative Resulting Agency Comment Spec In Lab Mercy Amanda MD CHEMISTRY ORDE ONOFFMIX (?)KIM Performing Organization Address [facility] Co de Phone Number [facility] [place] [place] [address] * Hemoglobin A1c (11/07/2023 7:47 AM EST) Hemoglobin A1c 5.6 4.3 - 5.6 % [facility] Comment: Reference Range: 4.3 - [...] Mellitus, Diabetes Care 2013; 36: Suppl. 1, C87-28 Estimated Average Glucose 113 mg/dL [facility] Comment: Note: The eAG calculation has not been proven valid for women, individuals below 18 years old or above 70 years old, or individuals with hemoglobinopathies. Estimated average glucose (eAG) is calculated from the equation described in: Liliana Holbrookn J, Young R, et al. ??Translating the A1C assay into estimated average glucose values. ??Diabetes Care 2008:31(8):0925-4352. Additional resources are available on the ADA website (diabetes.org). Blood 11/07/2023 7:47 AM EST 11/07/2023 7:52 AM EST Narrative Resulting Agency Comment Spec In Lab Mercy Amanda MD CHEMISTRY ORDManas LAURA Performing Organization Address [facility] Co de Phone Number [facility] [place] [address] * Ferritin (11/07/2023 7:47 AM EST) Ferritin 114 6 - 175 ng/mL [facility] Comment: Please note that as of 10/10/2023, the reference intervals for Ferritin have been updated. Blood 11/07/2023 7:47 AM EST 11/07/2023 7:52 AM EST Narrative Resulting Agency Comment Spec In Lab Mercy Amanda MD CHEMISTRY GLORIA LAURA Performing Organization Address [facility] de Phone Number [facility] [place] [address] * (ABNORMAL) CMP w/fasting Glucose (11/07/2023 7:47 AM EST) Glucose Fasting 121(H) 65 - 99 mg/dL [facility] Comment: ?Fasting* Glucose Interpretive Criteria [...] of Diabetes Mellitus, Position Statement from the [place] [employer]. ??Diabetes Care, Volume 33, Supplement 1, Nov 2009 Blood Urea Nitrogen 15 8 - 18 mg/dL [facility] Creatinine 0.82 0.70 - 1.20 mg/dL [facility] Sodium 142 135 - 145 mmol/L [facility] Potassium 4.3 3.5 - 5.0 mmol/L [facility] Comment: Please note: ??Patients with WBC >100,000 may have falsely elevated Potassium levels. ??For accurate Potassium quantification in these patients send serum separator tube (gold top) for subsequent determinations. ??Contact the Clinical Chemistry Laboratory if there are any questions. Chloride 105 98 - 107 mmol/L [facility] Carbon Dioxide 25 22 - 31 mmol/L [facility] Anion Gap 12 5 - 15 mmol/L [facility] Calcium 9.3 8.5 - 10.5 mg/dL [facility] Protein, Total 7.0 6.1 - 8.0 g/dL [facility] Albumin 4.3 3.2 - 5.2 g/dL [facility] Aspartate Aminotransferase 27 0 - 30 unit/L [facility] Alanine Aminotransferase 19 0 - 30 unit/L [facility] Alkaline Phosphatase 82 35 - 105 unit/L [facility] Bilirubin, Total <0.2(L) 0.2 - 1.3 mg/dL [facility] Est Glomerular Filtration Rate 89 >=60 mL/min/1. 73 m?? [facility] Comment: This patient's estimated GFR [...] MD CHEMISTRY ORDManas LAURA Performing Organization Address City/[facility] Co de Phone Number [facility] [place] [address] * Hemogram (11/07/2023 7:47 AM EST) White Blood Cell 7.6 4.0 - 9.5 x10(3)/[facility] Red Blood Cell 4.49 4.00 - 5.21 x10(6)/[facility] Hemoglobin 13.4 11.7 - 15.5 g/dL [facility] Hematocrit 39.7 35.7 - 45.8 % [facility] Mean Cell Volume 88.4 82.6 - 94.4 fL [facility] Mean Cell Hemoglobin 29.8 27.1 - 32.0 pg [facility] Mean Cell Hemoglobin Concentration 33.8 31.7 - 35.0 g/dL [facility] Platelet 282 145 - 357 x10(3)/[facility]ATORY RDW Standard Deviation 38.6 37.0 - 46.0 fL [facility] RDW coefficient of variation 12.0 11.5 - 14.1 % [facility] Mean Platelet Volume 9.5 7.6 - 12.9 fL [facility] NRBC% auto 0.0 % [facility] NRBC Absolute 0.000 0.000 - 0.000 x10(3)/[facility] Blood 11/07/2023 7:47 AM EST 11/07/2023 7:52 AM EST Narrative Resulting Agency Comment Spec In Lab Mercy Amanda MD HEMATOLOGY ORD ERABLES Performing Organization Address City/[facility]/ZIP Co de Phone Number [facility] [place] [address] documented in this encounter Visit Diagnoses Diagnosis [...] education documented in this encounter Care Teams Scale Technician Relationship Specialty Start Date End Date Sonido Cordoba PA [address] [place] [address] PCP - General Family Medicine 07/06/20 documented as of this encounter
--- OUTSIDE RECORDS SUMMARY | 2024-10-25 13:24 | XMS_ITS | Encounter Summary ---
[place] [address] Care Team Providers Care Green Marketing Analyst Name Role Phone Sonido Cordoba Primary Care Provider +1- [phone] Encounter Details Date Type Department Care Team (Late st Contact Info) Description 10/08/2023 Telephone [place] [phone] Juliette Lu PsyD [facility] [place] [address] Social History Tobacco Use Types Packs/Day Years [...] attempted to connect on 10/04 to discuss [facility] Psychiatry and [facility], but were unable to. Pt messaged via eDH requesting a call on 10/08/2023, and provider called at approx. 3 PM today andspoke with pt. Pt is scheduled with Chrystal Metz, PhD on 11/07/2022 (in [facility] Psychiatry) and current provider (Juliette Lu PsyD) on 11/23/2022 (in [facility] - Bariatric Surgery Evaluation f/u). Pt confirmed these appointments and denied questions. Provider reminded pt she is welcome to reach out if questions arise. documented in this encounter Plan of Treatment Upcoming Encounters Date Type Department Care Team (Late st Contact Info) Description 11/26/2024 8:45 AM EST Appointment [place] [phone] Keri Avila [address] [place] [address] 12/31/2024 10:00 AM EST Office [place] [address] Mercy Amanda MD [facility] DR [facility] [address] 04/01/2025 2:00 PM EDT Office Visit [place] [phone] Erum Szymanski MD [facility] [place] [address] documented as of this encounter Goals Goal [...] a priority: - Eggs - Cheese - Jamaican yogurt / cottage cheese - meat - [...] on filedocumented in this encounter Care Teams Green Marketing Analyst Relationship Specialty Start Date End Date Sonido Cordoba PA [address] [place] [address] PCP - General Family Medicine 07/06/20 documented as of this encounter
--- OUTSIDE RECORDS SUMMARY | 2024-10-25 13:24 | XMS_ITS | Encounter Summary ---
Author Organization [facility] Address [facility] [place] [address] Care Team Providers Care Sheet Combining Operator Name Role Phone Sonido Cordoba Primary Care Provider +1- [phone] Encounter Details Date Type Department Care Team (Late st Contact Info) Description 06/01/2023 9:19 AM EDT - 06/01/2023 1:26 PM EDT Hospital Encounter [place] [address] Steve Ji MD [facility] [place] [address] Discharge Disposition: Home Social History Tobacco Use [...] the day after the procedure, use an gony-sup-ujowxrj spray to numb your throat. Sucking on [...] occurs, please contact your Doctor. Please call [phone] before 8pm Mon-Fri with problems, questions or concerns. If you call after 8pm or on weekends, call the Hospital at [phone] and ask to speak to the Erp Specialist rn occupational and the vacuum extractor operator will contact that person for you. [...] any problems. Where can you learn more? [facility] View your After Visit Summary and more online at [email or web address] If you would like to provide feedback about your hospital experience, please call the Office of Patient and Family Relations at . If you have received this After Visit Summary in error, please immediately return it in person to the department, or notify the [facility] Privacy Office by calling toll free at between the hours of 8AM and 5PM to arrange for our retrieval of the documents at no cost to you. Content Version: 12.2 ?? 2439-0695 [employer]. Care instructions adapted under license by [facility]. If you have questions about a medical condition or this instruction, always ask your healthcare professional. [employer] disclaims any warranty or liability for your [...] occurs, please contact your Doctor. Please call [phone] before 8pm Mon-Fri with problems, questions or concerns. If you call after 8pm or on weekends, call the Hospital at [phone] and ask to speak to the Erp Specialist rn occupational and the vacuum extractor operator will contact that person for you. When should you call for help? Call [phone] anytime you think you may need emergency [...] any problems. Where can you learn more? [facility] View your After Visit Summary and more online at [email or web address] If you would like to provide feedback about your hospital experience, please call the Office of Patient and Family Relations at . If you have received this After Visit Summary in error, please immediately return it in person to the department, or notify the [facility] Privacy Office by calling toll free at between the hours of 8AM and 5PM to arrange for our retrieval of the documents at no cost to you. Content Version: 12.2 ?? 6321-4794 [employer]. Care instructions adapted under license by [facility]. If you have questions about a medical condition or this instruction, always ask your healthcare professional. [employer] disclaims any warranty or liability for your [...] occurs, please contact your Doctor. Please call [phone] before 8pm Mon-Fri with problems, questions or concerns. If you call after 8pm or on weekends, call the Hospital at [phone] and ask to speak to the Erp Specialist rn occupational and the vacuum extractor operator will contact that person for you. When should you call for help? Call [phone] anytime you think you may need emergency [...] any problems. Where can you learn more? [facility] View your After Visit Summary and more online at [email or web address] If you would like to provide feedback about your hospital experience, please call the Office of Patient and Family Relations at . If you have received this After Visit Summary in error, please immediately return it in person to the department, or notify the [facility] Privacy Office by calling toll free at between the hours of 8AM and 5PM to arrange for our retrieval of the documents at no cost to you. Content Version: 12.2 ?? 4311-4230 [facility] [employer]. Care instructions adapted under license by [facility]. If you have questions about a medical condition or this instruction, always ask your healthcare professional. [employer] disclaims any warranty or liability for your [...] 07/02/2023 pantoprazole EC (Protonix) [address] tabletIndications:[place] tt's esophagus without dysplasia,Gastroesophag eal reflux disease [...] complication. Informed Consent signed by patient (or it sales representative). documented in this encounter Plan of Treatment Upcoming Encounters Date Type Department Care Team (Late st Contact Info) Description 11/26/2024 8:45 AM EST [place] [address] Keri Avila [address] [place] [address] 12/31/2024 10:00 AM EST Office Visit Weight Center at [place] [phone] Mercy Amanda MD [facility] [address] [place] [address] 04/01/2025 2:00 PM EDT Office Visit Gastroenterology at [place] [phone] Erum Szymanski MD [facility] GASTROENTEROLOGY [place], [place] [phone] documented as of this encounter Goals Goal [...] (would rather have you choose regular bread/ danish muffin, etc. - whole wheat if possible- [...] Routine 06/01/2023 11:47 AM EDT Colonoscopy, Diagnostic ([id number]) 06/01/2023 11:36 AM EDT maafqfbni-mfo-Tyudk ng gerd, hoarseness, upcoming weight loss surgery per dr. szymanski Upper Gi Endoscopy, Biopsy ([id number]) 06/01/2023 11:36 AM EDT xlykcaryu-fnk-Kooig ng gerd, hoarseness, upcoming weight loss surgery per dr. szymanski UPPER GI ENDOSCOPY Routine 06/01/2023 11 :20 AM EDT COLONOSCOPY Routine 06/01/2023 11:20 AM EDT documented in this encounter Results * Specimen to Pathology (06/01/2023 12:02 PM EDT) AP Specimen 06/01/2023 12:0 2 PM EDT 06/01/2023 12:02 PM EDT Narrative [facility] - 06/01/2023 12:02 PM EDT Specimen requisition ordered. ??Separate Pathology report to follow Steve Ji MD PATHOLOGY/[place] [address] * Specimen to Pathology (06/01/2023 12:02 PM EDT) AP Specimen 06/01/2023 12:0 2 PM EDT 06/01/2023 12:02 PM EDT Narrative [facility] - 06/01/2023 12:02 PM EDT Specimen requisition ordered. ??Separate Pathology report to follow Steve Ji MD PATHOLOGY/CYTOLOG Y ORDERABLES Performing Organization Address City/[facility]/[place] [address] * Specimen to Pathology (06/01/2023 12:02 PM EDT) AP Specimen 06/01/2023 12:0 2 PM EDT 06/01/2023 12:02 PM EDT Narrative [facility] - 06/01/2023 12:02 PM EDT Specimen requisition ordered. ??Separate Pathology report to follow Steve Ji MD PATHOLOGY/[place] [address] * Specimen to Pathology (06/01/2023 12:02 PM EDT) AP Specimen 06/01/2023 12:0 2 PM EDT 06/01/2023 12:02 PM EDT Narrative [facility] - 06/01/2023 12:02 PM EDT Specimen requisition ordered. ??Separate Pathology report to follow Steve Ji MD PATHOLOGY/CYTOLOG Y ORDERABLES [facility] [place] [address] * Surgical Pathology Report (06/01/2023 11:47 AM EDT) Final Diagnosis [id number] ? Location: 4T; EA10; A The signing [...] Samira Verified: ??06/09/2023 19:41 ??Pathologist Performed at: ??-[facility] Dept. of Pathology, [place] [address] Clubhouse Attendant: Ayad Dee MD, FCAP, ??CLIA Certificate: [id number] SPECIMEN(S) SUBMITTED A - 34-35 cm esophagus, [...] labeled D1. ??nrl 06/09/2023 7:41 PM EDT [facility] GI Biopsy 06/01/2023 11:4 7 AM EDT 06/01/2023 11:47 AM EDT GI Biopsy 06/01/2023 11:4 7 AM EDT 06/01/2023 11:47 AM EDT GI Biopsy 06/01/2023 11:4 7 AM EDT 06/01/2023 11:47 AM EDT GI Biopsy 06/01/2023 11:4 7 AM EDT 06/01/2023 11:47 AM EDT Steve Ji MD PATHOLOGY/CYTOLOG Y ORDERABLES [facility] [place] [address] [facility] [place] [place] [address] * UPPER GI ENDOSCOPY (06/01/2023 11:20 AM EDT) UPPER GI ENDOSCOPY [facility] Endoscopy ___ Procedure Date: 06/01/2023 11:20 AM ? Patient Name: Vianney Cordero ? Date of : 1975 ? Age: 47 ? Order #: [id number] ? Instrument Name: [id number]- [id number] ? ___ Procedure: ? Upper GI endoscopy [...] * COLONOSCOPY (06/01/2023 11:20 AM EDT) COLONOSCOPY [facility] Endoscopy Procedure Date: 06/01/2023 11:20 AM ? Patient Name: Vianney Cordero ? Date of : 1975 ? Age: 47 ? Order #: [id number] ? Instrument Name: [id number]- [id number] ? Procedure: ? Colonoscopy Indications: ? High risk colon cancer ? surveillance: Personal history of ? colonic polyps, Family history of ? colon cancer in a first-degree ? relative before age 60 years Patient Profile: ? This is a 47 year old female. Providers: ? Steve Ji MD, Ashish Hall ? NIMCO Araya, Sushant Walker Referring : ?Erum Szymanski MD Medicines: ? Monitored Anesthesia [...] preparation was evaluated ? using the BBPS ([place] Bowel ? Preparation Scale) with scores of: [...] Recovery documented in this encounter Care Teams Sheet Combining Operator Relationship Specialty Start Date End Date Sonido Cordoba PA [address] [place] [address] PCP - General Family Medicine 07/06/20 documented as of this encounter
--- OUTSIDE RECORDS SUMMARY | 2024-10-25 13:24 | XMS_ITS | Encounter Summary ---
Author Organization Replaced By [facility] [place] [address] Care Team Providers Care Sample Sewer Name Role Phone Sonido Cordoba Primary Care Provider +1- [phone] Encounter Details Date Type Department Care Team (Late st Contact Info) Description 05/16/2023 2:15 PM EDT TH Visit (TeleHealth) [place] [address] Sunita Bills, RD [facility] [address] Class 3 severe obesity with body mass [...] in past visits.Please reach out with a Miradia message if you have any questions or [...] a priority: - Eggs - Cheese - Filipino yogurt / cottage cheese - meat - [...] a priority: - Eggs - Cheese - Filipino yogurt / cottage cheese - meat - [...] [] Needs additional fuv scheduled with this radio news writer: No follow-ups on file. (OR) [] Currently scheduled for: [] 1st consecutive monthly nutrition visit [] 2nd consecutive monthly nutrition visit [] 3rd consecutive monthly nutrition visit (OR) [x] Patient has met requirement of 3 consecutive monthly nutrition visits Above determined to the best ability of this radio news writer. Patient will contact bariatric surgery team for [...] 11/26/2024 8:45 AM EST Appointment [place] [address] Keri Avila [address] [place] [address] 12/31/2024 10:00 AM EST Office [place] [phone] Mercy Amanda MD [facility] [address] [place] [address] 04/01/2025 2:00 PM EDT Office [place] [address] Erum Szymanski MD [facility] [address] documented as of this encounter Goals Goal [...] a priority: - Eggs - Cheese - Filipino yogurt / cottage cheese - meat - [...] present documented in this encounter Care Teams Sample Sewer Relationship Specialty Start Date End Date Sonido Cordoba PA [address] [place] [address] PCP - General Family Medicine 07/06/20 documented as of this encounter
--- OUTSIDE RECORDS SUMMARY | 2024-10-25 13:24 | XMS_ITS | Encounter Summary ---
[place] [address] Care Team Providers Care Enterprise Application Administrator Name Role Phone Sonido Cordoba Primary Care Provider +1- [phone] Encounter Details Date Type Department Care Team [...] 11/26/2024 8:45 AM EST [place]oint[place] [address] Keri Avila [address] [place], [place] [address] 12/31/2024 10:00 AM EST Office [place] [address] Mercy Amanda MD [facility] [address] [place] [address] 04/01/2025 2:00 PM EDT Office Visit [facility]astroenterology at [facility] [place] [address] Erum Szymanski MD [facility] [place] [address] documented as of this encounter Goals Goal [...] a priority: - Eggs - Cheese - Egyptian yogurt / cottage cheese - meat - [...] on filedocumented in this encounter Care Teams Enterprise Application Administrator Relationship Specialty Start Date End Date Sonido Cordoba PA [address] [place] [address] PCP - General Family Medicine 07/06/20 documented as of this encounter
--- OUTSIDE RECORDS SUMMARY | 2024-10-25 13:24 | XMS_ITS | Encounter Summary ---
Author Organization [facility] [place] [address] Care Team Providers Care Cyber Threat Analyst Name Role Phone Sonido Cordoba Primary Care Provider +1- [phone] Reason for Visit * Psychiatric (Routine) - Closed Specialty Diagnoses / Procedures Referred By Aric madrigal Referred To Contact Psychiatry Diagnoses Post-traumatic stress disorder, unspecified Nuria Jaffe, PhD [facility] [place] [address] [facility] Psychiatry [address] [place] [address] Referral ID Status Reason Start Date Expiration Date V isits Requested Visits Authorized [id number] Closed Consult, Test & Treat 07/11/2023 07/10/2024 1 1 Encounter Details Date Type Department Care Team (Late st Contact Info) Description 11/07/2023 8:00 AM EST Office Visit Psychiatry [place] [address] Chrystal Metz, PhD [facility] [place] [address] Post-traumatic stress disorder, unspecified Social [...] were not included. DIAGNOSTIC INTERVIEW CPT Code 47988 Referral Source: Nuria Jaffe, PhD Location: Office [...] 2010 and that he is currently in senior living. Patient noted that she is often able [...] Patient reported that she grew up in [place] where she lived with her mother. 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 Family and Peer Relationships: Patient reports that she currently has several people in her life that she feels are supportive and that she can confide in, including several of her sisters, her current boyfriend, and her adult children. Service: Denied Mandaeism Background: Anabaptist Medical history: Past Medical History: Diagnosis Date [...] rate, and normal rhythm Language: fluent in bulgarian Mood: euthymic Affect: constricted, anxious, and mood-congruent; [...] little of the time Pain impact Moderately Wilder calm Most of the time Lot of energy Some of the time Wilder downhearted A little of the time Social [...] treatment in the Anxiety Disorders Service at [facility]. Does the clinician agree with the recommendation: Yes Does the patient agree with the recommendation: Yes Patient Instruction/Education Provided: Verbal Patient understands the plan? Yes We discussed that I am available via Oncol[employer], but that I do not check this daily, and should not be used in case of emergency. We have reviewed crisis numbers to call in case of emergency. We discussed limits to confidentiality, which include breaking confidentiality in the case of concern for imminent danger to self, someone else (including child and elder abuse) or if records are subpoenaed by a machine feed operator. We also discussed that notes can be read by other clinicians and staff involved in the patient's care. For mental health emergencies, Call 988 from anywhere in the [facility]. State specific information for [place] and [place] crisis services are as follows and should be used to access local resources: [facility] Crises Services [facility] Crisis Line text or call Visit www.[employer] for further information [place] Call your local community crisis line at: [place]: Counseling Service [facility] [phone] [place]: [facility] Services [phone] [place]: [facility] [phone] [place]: [facility] [phone] [place]: [facility] [phone] Lance noguera [place]: [facility] Counseling and Support [phone] [place]: [facility] Health [phone] on weekdays 8AM-4:30PM and [phone] on nights and weekends [place]: [facility] [place]: [facility] [phone] [place]: [facility] Services [phone] [place]: [facility] MH Services, [place]: HCRS [place]: HCRS or Text [place] to [phone] For further information for [place] residents: https://mentalhealth.[place]/services/emergency-services/xkl-efp-tgkw National Suicide Prevention Hotline: For patients cared for in the Department of Psychiatry, you can reach your mental health clinician at [phone]. Chrystal Metz, PhD documented in this encounter Plan of Treatment Upcoming Encounters Date Type Department Care Team (Late st Contact Info) Description 11/26/2024 8:45 AM EST Appointment [place] [address] Keri Avila [address] [place] [address] 12/31/2024 10:00 AM EST Office [place] [address] Mercy Amanda MD [facility] [address] [place] [address] 04/01/2025 2:00 PM EDT Office [place] [address] Erum Szymanski MD [facility] [place] [address] Scheduled Referrals Name Type Priority Associated Diagnoses [...] unspecified documented in this encounter Care Teams Cyber Threat Analyst Relationship Specialty Start Date End Date Sonido Cordoba PA [address] [place] [address] PCP - General Family Medicine 07/06/20 documented as of this encounter
--- OUTSIDE RECORDS SUMMARY | 2024-10-25 13:25 | XMS_ITS | Encounter Summary ---
[place] [address] Care Team Providers Care Computing Machine Operator Name Role Phone Sonido Cordoba Primary Care Provider +1- [phone] Encounter Details Date Type Department Care Team (Late st Contact Info) Description 11/23/2022 Telephone [place] [phone] Kezia Preston, RN Social History Tobacco Use [...] Weight and Wellness [facility] [address] [place] [address] DENIED: Jeancarlos Case/Reference #: [id number] Additional Information from Insurance: Pt must have DM for approval documented in this encounter Plan of Treatment Upcoming Encounters Date Type Department Care Team (Late st Contact Info) Description 11/26/2024 8:45 AM EST Appointment [place] [address] Keri Avila [address] [place] [address] 12/31/2024 10:00 AM EST Office [place] [address] Mercy Amanda MD [facility] [address] [place] [address] 04/01/2025 2:00 PM EDT Office [place] [address] Erum Szymanski MD [facility] [place] [address] documented as of this encounter Goals Goal [...] Lifestyle On track( 023 9:48 AM EDT) No Priti Skinner RD [...] on filedocumented in this encounter Care Teams Computing Machine Operator Relationship Specialty Start Date End Date Sonido Cordoba PA [address] [place] [address] PCP - General Family Medicine 07/06/20 documented as of this encounter
--- OUTSIDE RECORDS SUMMARY | 2024-10-25 13:25 | XMS_ITS | Encounter Summary ---
[place] [address] Care Team Providers Care Motor Grader Rough Grade Name Role Phone Sonido Cordoba Primary Care Provider +1- [phone] Encounter Details Date Type Department Care Team [...] 11/26/2024 8:45 AM EST Appointment [place] [address] Keri Avila [address] [place] [address] 12/31/2024 10:00 AM EST Office [place] [address] Meryc Amanda MD [facility] [address] [place] [address] 04/01/2025 2:00 PM EDT Office Visit Gastroenterology at [facility] [place] [address] Erum Szymanski MD [facility] [place] [address] documented as of this encounter Goals Goal [...] a priority: - Eggs - Cheese - Hong Konger yogurt / cottage cheese - meat - [...] on filedocumented in this encounter Care Teams Motor Grader Rough Grade Relationship Specialty Start Date End Date Sonido Cordoba PA [address] [place] [address] PCP - General Family Medicine 07/06/20 documented as of this encounter
--- OUTSIDE RECORDS SUMMARY | 2024-10-25 13:25 | XMS_ITS | Encounter Summary ---
Author Organization [facility] [place] [address] Care Team Providers Care Drawing Hand Name Role Phone Sonido Cordoba Primary Care Provider +1- [phone] Reason for Referral * Consultation (Routine) - Closed Specialty Diagnoses / Procedures Referred By Aric madrigal Referred To Contact Weight and Wellness Diagnoses Class 3 severe obesity with serious comorbidity and body mass index (BMI) of 40.0 to 44.9 in adult, unspecified obesity type Mercy Amanda MD [facility] [address] [facility] [place] [address] Referral ID Status Reason Start Date Expiration Date V isits Requested Visits Authorized [id number] Closed Consult, Test & Treat 02/26/2023 02/26/2024 1 1 Reason for Visit * Reason Comments Follow-up Weight management Encounter Details Date Type Department Care Team (Late st Contact Info) Description 02/26/2023 11:00 AM EDT Office [place] [address] Mercy Amanda MD [facility] [address] [facility] [address] Class 3 severe obesity with serious comorbidity [...] 02/26/2023 11:00 AM EDTSummary: 9th visit with [facility] [place] Patient Name: Vianney Cordero Date of : [...] and comorbidities GERD/Barretts. This is Visit #9 [facility] visit for this 47 y.o. [...] lbs (+ 2 lbs, + 15 lbs) [facility] Team: Priti Skinner RD and Erik Sorenson, Health Telecommunications Sales Representative HPI Still struggling with weight. Taking phentermine [...] Saxenda denied - no AOMs covered by [place] Medicaid C/I: GB? NO s/p lap CCY [...] Continue AOMs and f/u. 10/06/2021 7:00 PM [facility] PATHWAY - ADULT Obesity Medicine [...] Vitals: 02/26/23 1107 BP: 134/68 BP Location ([facility]): Left arm Patient Position: Sitting BP Cuff [...] (H) 02/10/2022 Lab Results Component Value Date [id number] 02/10/2022 25-OH Vit D Total (ng/mL) [...] Co-morbidities addressed: GERD Referrals pending: [facility] and [facility] psych - pre bariatric AOM: Metformin XR Phentermine Vianney was seen today for follow-up . Diagnoses and all orders for this visit: Class 3 severe obesity with serious comorbidity and body mass index (BMI) of 40.0 to 44.9 in adult,unspecified obesity type - Amb Referral to [facility] Psych Evaluation Insulin resistance Elevated ferritin Elevated LDL cholesterol level Vitamin D deficiency Orders Placed This Encounter Procedures ??? Amb Referral to [facility] Psych Evaluation Return in about 8 weeks (around 04/23/2023) for In person or Zoom, With [facility] rivas. 1 min chart review 30 min [id number] Visit time 5 min Documentation time I [...] 11/26/2024 8:45 AM EST [place] [phone] Keri Avila [address] [place] [address] 12/31/2024 10:00 AM EST Office [place] [address] Mercy Amanda MD [facility] [address] [facility] [address] 04/01/2025 2:00 PM EDT Office [place] [address] Erum Szymanski MD [facility] [place] [address] Scheduled Referrals Name Type Priority Associated Diagnoses Orde r Schedule Amb Referral to [facility] Psych Evaluation Outpatient Referral Routine [...] deficiency documented in this encounter Care Teams Drawing Hand Relationship Specialty Start Date End Date Sonido Cordoba PA [address] [place] [address] PCP - General Family Medicine 07/06/20 documented as of this encounter
--- OUTSIDE RECORDS SUMMARY | 2024-10-25 13:25 | XMS_ITS | Encounter Summary ---
Author Organization [facility] [place] [address] Care Team Providers Care Sap Bobj Developer Name Role Phone Sonido Cordoba Primary Care Provider +1- [phone] Reason for Visit * Reason Onset Date Comments Medication Refill 02/27/2023 Encounter Details Date Type Department Care Team (Late st Contact Info) Description 02/27/2023 Refill [place] [address] Mercy Amanda MD [facility] DR [facility] [address] Class 3 severe obesity with serious comorbidity [...] 11/26/2024 8:45 AM EST Appointment [place] [address] RubyDiamondKeri Sanches [address] [place] [address] 12/31/2024 10:00 AM EST Office [place] [address] Mercy Amanda MD [facility] DR [facility] [place] [address] 04/01/2025 2:00 PM EDT Office [place] [address] Erum Szymanski MD [facility] [place] [address] documented as of this encounter Goals Goal [...] type documented in this encounter Care Teams Sap Bobj Developer Relationship Specialty Start Date End Date Sonido Cordoba PA [address] [place] [address] PCP - General Family Medicine 07/06/20 documented as of this encounter
--- OUTSIDE RECORDS SUMMARY | 2024-10-25 13:25 | XMS_ITS | Encounter Summary ---
[place] [address] Care Team Providers Care Robotics Specialist Name Role Phone Sonido Cordoba Primary Care Provider +1- [phone] Encounter Details Date Type Department Care Team [...] 11/26/2024 8:45 AM EST Appointment [place] [address] Keri Avila [address] [place] [address] 12/31/2024 10:00 AM EST Office [place] [address] Mercy Amanda MD [facility] [address] [facility] [address] 04/01/2025 2:00 PM EDT Office Visit Gastroenterology at [facility] [place] [address] Erum Szymanski MD [facility] [address] documented as of this encounter Goals Goal [...] guides Lifestyle On track(2022 9:49 AM EDT) Priit Waldron RD Note: Aim for no more [...] on filedocumented in this encounter Care Teams Robotics Specialist Relationship Specialty Start Date End Date Sonido Cordoba PA [address] [place] [address] PCP - General Family Medicine 07/06/20 documented as of this encounter
--- OUTSIDE RECORDS SUMMARY | 2024-10-25 13:25 | XMS_ITS | Encounter Summary ---
Author Organization [facility] [place] [address] Care Team Providers Care Appraiser Art Name Role Phone Sonido Cordoba Primary Care Provider +1- [phone] Encounter Details Date Type Department Care Team (Late st Contact Info) Description 12/29/2022 Orders Only [place] [address] Chinyere Galindo APRN [facility] [place] [address] Social History Tobacco Use Types Packs/Day Years [...] 11/26/2024 8:45 AM EST Appointment [place] [phone] RubyDiamondKeri Sanches [address] [place] [address] 12/31/2024 10:00 AM EST Office [place] [address] Mercy Amanda MD [facility] DR [facility] [address] 04/01/2025 2:00 PM EDT Office [place] [address] Erum Szymanski MD [facility] [place] [address] documented as of this encounter Goals Goal [...] a priority: - Eggs - Cheese - Kosovan yogurt / cottage cheese - meat - [...] 10:03 AM EST) Quantiferon Nil 0.018 IU/mL [facility] QFT TB Ag1-Nil 0.025 IU/mL [facility] QFT TB Ag2-Nil 0.044 IU/mL [facility] Quantiferon Mitogen-Nil 9.982 IU/mL [facility] Quantiferon-TB Gold Negative Negative [facility] Quantiferon Tb Interp M. tuberculosis [...] affect immune function, or other immunological factors. [facility] Blood Venous Draw / Unknown 12/29/2022 10:03 AM EST 01/01/2023 7:25 AM EST Narrative Resulting Agency Comment Spec In Lab Chinyerehanane Galindo MEASUREMENT PSYCHOLOGIST CHEMISTRY ORDERABLES Performing Organization Address City/State/[facility] Co de Phone Number [facility] [place] [address] documented in this encounter Visit Diagnoses Not on filedocumented in this encounter Care Teams Appraiser Art Relationship Specialty Start Date End Date Sonido Cordoba PA [address] [place] [address] PCP - General Family Medicine 07/06/20 documented as of this encounter
--- OUTSIDE RECORDS SUMMARY | 2024-10-25 13:25 | XMS_ITS | Encounter Summary ---
[place] [address] Care Team Providers Care Apprentice Jockey Name Role Phone Sonido Cordoba Primary Care Provider +1- [phone] Encounter Details Date Type Department Care Team [...] 11/26/2024 8:45 AM EST Appointment [place] [address] Keri Avila [address] [place], [place] [address] 12/31/2024 10:00 AM EST Office [place] [address] Mercy Amanda MD [facility] [address] [facility] [place] [address] 04/01/2025 2:00 PM EDT Office Visit Gastroenterology at [facility] [place] [address] Erum Szymanski MD [facility] [place] [address] documented as of this encounter Goals Goal [...] on filedocumented in this encounter Care Teams Apprentice Jockey Relationship Specialty Start Date End Date Sonido Cordoba PA [address] [place] [address] PCP - General Family Medicine 07/06/20 documented as of this encounter
--- OUTSIDE RECORDS SUMMARY | 2024-10-25 13:25 | XMS_ITS | Encounter Summary ---
Author Organization [facility] [place] [address] Care Team Providers Care Screedman Name Role Phone Sonido Cordoba Primary Care Provider +1- [phone] Reason for Visit * Reason Comments Medication Refill Encounter Details Date Type Department Care Team (Late st Contact Info) Description 11/28/2022 Refill Weight and Wellness at [address] [phone] Mercy Amanda MD [facility] [address] [facility] [address] Class 3 severe obesity with serious comorbidity [...] 11/26/2024 8:45 AM EST [place] [address] RubyDiamondKeri Sanches [address] [place] [address] 12/31/2024 10:00 AM EST Office [place] [address] Mercy Amanda MD [facility] [address] [facility] [address] 04/01/2025 2:00 PM EDT Office [place] [address] Erum Szymanski MD [facility] [place] [address] documented as of this encounter [...] a priority: - Eggs - Cheese - Ecuadorean yogurt / cottage cheese - meat - fish - nuts/seeds - protein shake or bar Start with the protein, can choose to add other foods (would rather have you choose regular bread/ egyptian muffin, etc. - whole wheat if possible- [...] X documented in this encounter Care Teams Screedman Relationship Specialty Start Date End Date Sonido Cordoba PA [address] [place] [address] PCP - General Family Medicine 07/06/20 documented as of this encounter
--- OUTSIDE RECORDS SUMMARY | 2024-10-25 13:25 | XMS_ITS | Encounter Summary ---
Author Organization [facility] Address [facility] [place] [address] Care Team Providers Care Family Preservation Worker Name Role Phone Sonido Cordoba Primary Care Provider +1- [phone] Encounter Details Date Type Department Care Team (Late st Contact Info) Description 02/23/2022 Telephone Weight and Wellness at [facility] [address] [place] [address] [facility] [place] [address] Social History Tobacco Use Types Packs/Day Years [...] 9:39 AM EDT non identified vm; this automobile service writer left message saying a provider from [facility] attempting to reach patient for a scheduled telephone visit. Informed would try back in 2 min and if no answer our team would call to reschedule. Tried x2 no answer. Priti Skinner RD LD documented in this encounter Plan of Treatment Upcoming Encounters Date Type Department Care Team (Late st Contact Info) Description 11/26/2024 8:45 AM EST Appointment [place] [address] Keri Avila [address] [place] [address] 12/31/2024 10:00 AM EST Office [place] [address] Mercy Amanda MD [facility] [address] 04/01/2025 2:00 PM EDT Office [place] [address] Erum Szymanski MD [facility] [place] [address] documented as of this encounter Goals Goal [...] a priority: - Eggs - Cheese - Cypriot yogurt / cottage cheese - meat - [...] filedocumented in this encounter Care Teams Family Preservation Worker Relationship Specialty Start Date End Date Sonido Cordoba PA [address] [place] [address] PCP - General Family Medicine 07/06/20 documented as of this encounter
--- OUTSIDE RECORDS SUMMARY | 2024-10-25 13:25 | XMS_ITS | Encounter Summary ---
[place] [address] Care Team Providers Care Licensed Veterinary Technician Name Role Phone Sonido Cordoba Primary Care Provider +1- [phone] Encounter Details Date Type Department Care Team (Late st Contact Info) Description 02/28/2023 Telephone [place] [address] Erasmo Bui Social History Tobacco [...] Erasmo Bui - 02/28/2023 11:18 AM EDT Vianney Cordero [id number] Diagnosis/Indication: 3 year Please review patient chart [...] your procedure. Who will likely be your distribution driver for the procedure? *Please Verify the height [...] 11/26/2024 8:45 AM EST Appointment [place] [address] [address] [address] 12/31/2024 10:00 AM EST Office [place] [address] Mercy Amanda MD [facility] DR [facility] [address] 04/01/2025 2:00 PM EDT Office [place] [address] Erum Szymanski MD [facility] [place] [address] documented as of this encounter Goals Goal [...] on filedocumented in this encounter Care Teams Licensed Veterinary Technician Relationship Specialty Start Date End Date Sonido Cordoba PA [address] [place] [address] PCP - General Family Medicine 07/06/20 documented as of this encounter
--- OUTSIDE RECORDS SUMMARY | 2024-10-25 13:25 | XMS_ITS | Encounter Summary ---
Author Organization [facility] [place] [address] Care Team Providers Care Automotive Artist Name Role Phone Sonido Cordoba Primary Care Provider +1- [phone] Encounter Details Date Type Department Care Team (Late st Contact Info) Description 02/01/2023 Notes [place] [phone] Jena Dowd I, [facility] [place] [address] Social History Tobacco Use Types Packs/Day Years [...] Show Pt for New RD visit at [facility] Will need to call for reschedule. Thank you Jena Dowd MS RD LD documented in this encounter Plan of Treatment Upcoming Encounters Date Type Department Care Team (Late st Contact Info) Description 11/26/2024 8:45 AM EST [place] [address] Keri Avila [address] [place] [address] 12/31/2024 10:00 AM EST Office [place] [address] Mercy Amanda MD [facility] [address] [facility] [place] [address] 04/01/2025 2:00 PM EDT Office [place] [address] Erum Szymanski MD [facility] GASTROENTEROLOGY [place], [place] [address] documented as of this encounter Goals Goal [...] (would rather have you choose regular bread/ martiniquais muffin, etc. - whole wheat if possible- [...] on filedocumented in this encounter Care Teams Automotive Artist Relationship Specialty Start Date End Date Sonido Cordoba PA [address] [place] [address] PCP - General Family Medicine 07/06/20 documented as of this encounter
--- OUTSIDE RECORDS SUMMARY | 2024-10-25 13:25 | XMS_ITS | Encounter Summary ---
[place] [address] Care Team Providers Care Artificial Intelligence Specialist Name Role Phone Sonido Cordoba Primary Care Provider +1- [phone] Encounter Details Date Type Department Care Team (Latest Contact Info) Description 06/05/2022 8:30 PM EDT - 06/05/2022 11:59 PM EDT Hospital [place] [address] Discharge Disposition: Home Social History Tobacco Use [...] 11/26/2024 8:45 AM EST [place]oint[place] [address] Keri Avila [address] [place] [address] 12/31/2024 10:00 AM EST Office [place] [address] Mercy Amanda MD [facility] [address] [facility] [address] 04/01/2025 2:00 PM EDT Office Visit Gastroenterology at [facility] [place] [address] Erum Szymanski MD [facility] [place] [address] documented as of this encounter Goals Goal [...] Report (06/05/2022 2:00 PM EDT) Final Diagnosis [id number] ? Location: [facility] The signing pathologist has (i) examined the relevant preparation(s) for the specimen(s) and (ii) rendered or confirmed the diagnosis(es). . ? Addendum ADDENDUM DISCUSSION Part B: Immunostain for H. pylori is negative. Electronically signed by: ?Samira Cardenas MD Verified: ??06/09/2022 13:36 ??Pathologist Performed at: ??-[facility] Dept. of Pathology, [place], [place] ?Surgical Pathology DIAGNOSIS A - Duodenum, [...] MD Verified: ??06/08/2022 17:07 ??Pathologist Performed at: ??-[facility] Dept. of Pathology, [place], [place] ADDITIONAL STUDIES Immunohistochemistry Studies: Formalin-fixed, paraffin-embedded [...] labeled D1-D2. ??nrl 06/09/2022 1:[address] [facility] GI Biopsy 06/05/2022 2:00 PM EDT 06/05/2022 2:00 PM EDT GI Biopsy 06/05/2022 2:00 PM EDT 06/05/2022 2:00 PM EDT GI Biopsy 06/05/2022 2:00 PM EDT 06/05/2022 2:00 PM EDT GI Biopsy 06/05/2022 2:00 PM EDT 06/05/2022 2:00 PM EDT Guanako Barclay DO PATHOLOGY/CYTOL OGY ORDERABLES Performing Organization Address City/State/[facility] [place] [address] documented in this encounter Visit Diagnoses Not on filedocumented in this encounter Care Teams Artificial Intelligence Specialist Relationship Specialty Start Date End Date Sonido Cordoba PA [address] [place] [address] PCP - General Family Medicine 07/06/20 documented as of this encounter
--- OUTSIDE RECORDS SUMMARY | 2024-10-25 13:25 | XMS_ITS | Encounter Summary ---
[place] [address] Care Team Providers Care Counselor Aide Name Role Phone Sonido Cordoba Primary Care Provider +1- [phone] Reason for Visit * Reason Onset Date Comments Appointment 01/23/2023 Encounter Details Date Type Department Care Team (Late st Contact Info) Description 01/23/2023 Telephone [place] [phone] Viviana Mcneal Appointment Social History Tobacco Use [...] AM EDT LVM and sent letter via [email or web address] portal, please schedule from recall. documented in this encounter Plan of Treatment Upcoming Encounters Date Type Department Care Team (Late st Contact Info) Description 11/26/2024 8:45 AM EST [place] [address] Keri Avila [address] [place] [address] 12/31/2024 10:00 AM EST Office [place] [address] Mercy Amanda MD [facility] DR [facility] [address] 04/01/2025 2:00 PM EDT Office [place] [address] Erum Szymanski MD [facility] [place] [address] documented as of this encounter Goals Goal [...] on filedocumented in this encounter Care Teams Counselor Aide Relationship Specialty Start Date End Date Sonido Cordoba PA [address] [place] [address] PCP - General Family Medicine 07/06/20 documented as of this encounter
--- OUTSIDE RECORDS SUMMARY | 2024-10-25 13:25 | XMS_ITS | Encounter Summary ---
Author Organization [facility] [place] [address] Care Team Providers Care Vamp Cut Out Worker Name Role Phone Sonido Cordoba Primary Care Provider +1- [phone] Encounter Details Date Type Department Care Team (Late st Contact Info) Description 09/08/2022 1:30 PM EDT Office Visit Weight and Wellness at [address] [phone] Mercy Amanda MD [facility] DR [facility] MED[facility] [place], [place] [phone] Class 3 severe obesity with serious comorbidity [...] 1:30 PM EDTSummary: 6th visit jenny [facility] Weight [facility] Well[facility] [place] Patient Name: Vianney Cordero Date of : [...] and comorbidities GERD/Barretts. This is Visit #6 [facility] visit for this 46 y.o. patient. Initial visit: 10/06/2021, 217 lbs (22 lbs, 10%) 01/09/2022, 227 lbs + 10 lbs 02/10/2022, 228 lbs +1 lbs 04/21/2022, 227 lbs - 1 lbs 06/25/2022, 219 lbs (-8 lbs, + 2 total) 09/08/2022, 226.8 lbs (+7.8 lbs + 9.8 lbs) [facility] Team: Priti Skinner RD and Erik Sorenson, Health Head Shipper HPI Had lap kelley in August at [facility]. Went home same day. No postop issues. Stopped phentermine a month ago. Ran out of Metformin 2 weeks ago. PILLARS Stress - life is good, back to work, happy again and feeling better after lap kelley. At [employer] and one day a week at [employer]. Sleep - sleeping ok, getting 6 hours, sometimes wakes and tosses and turns, sometimes sleeps through, sometimes wakes to use BR. Movement - since GB recovery, starting to walk the halls at work. Joining squat challenge through work. Not using track bc of school sports. Plan to use [employer] and [employer] for the winter. Nutrition - B - eggs and 1 slice toast sometimes with culp or sausage L - salad - BV or mosotho, with chicken D - whatever we have [...] appts given work schedule. Will look at [facility] info again. [facility] PATHWAY - ADULT 10/06/2021 Obesity Medicine Activate [...] (H) 02/10/2022 Lab Results Component Value Date [id number] 02/10/2022 25-OH Vit D Total (ng/mL) [...] rivas. 3 min chart review 30 min [id number] Visit time 5 min Documentation time I [...] 11/26/2024 8:45 AM EST Appointment Ultrasound at [place] [phone] Keri Avila [address] [place] [address] 12/31/2024 10:00 AM EST Office Visit Weight Center at [place] [phone] Mercy Amanda MD [facility] [address] [facility] [address] 04/01/2025 2:00 PM EDT Office [place] [address] Erum Szymanski MD [facility] [place] [address] documented as of this encounter Goals Goal [...] hypercholesterolemia documented in this encounter Care Teams Vamp Cut Out Worker Relationship Specialty Start Date End Date Sonido Cordoba PA [address] [place] [address] PCP - General Family Medicine 07/06/20 documented as of this encounter
--- OUTSIDE RECORDS SUMMARY | 2024-10-25 13:25 | XMS_ITS | Encounter Summary ---
[place] [address] Care Team Providers Care Portainer Operator Name Role Phone Sonido Cordoba Primary Care Provider +1- [phone] Encounter Details Date Type Department Care Team (Late st Contact Info) Description 06/01/2022 4:24 PM EDT - 06/01/2022 11:59 PM EDT Hospital Encounter [facility] [address] [place] [phone] Guanako Barclay, DO [address] [place] [phone] Discharge Disposition: Home Social History Tobacco Use [...] 11/26/2024 8:45 AM EST [place] [address] Keri Avila [address] [place] [address] 12/31/2024 10:00 AM EST Office [place] [address] Mercy Amanda MD [facility] [address] [facility] [address] 04/01/2025 2:00 PM EDT Office [place] [phone] Erum Szymanski MD [facility] [address] documented as of this encounter Goals Goal [...] EDT) SARS-CoV-2 RNA Not Detected Not Detected [facility] Comment: This result should be interpreted in combination with the clinical observations, patient history and epidemiological information. For testing of asymptomatic individuals, assay performance characteristics and clinical utility have not been evaluated. Testing for SARS-CoV-2 (Severe acute respiratory syndrome coronavirus 2, formerly known as 2019 novel coronavirus or 2019-nCoV) to aid in the diagnosis of COVID-19 is performed using the Aptima SARS Co-V-2 Assay on the Temporal Power System ([employer] as authorized by the FDA issued Emergency [...] Department of Pathology and Laboratory Medicine at [facility], certified under the Clinical Laboratory Improvement [...] fact sheets at the following FDA website: https://www.fda.gov/medical-devices/jauivwqlkas-svzxdfx-3047-zgsxz-23-uxnjmwtwa- use-a luiququsxzlor-mynmkhy-agavqvt/mykkr-otbcgybqgow-mrlv SARS-CoV-2 RNA Source MEDICAL TECHNOLOGIST CHIEF Swab [facility] Nasopharyngeal Swab 06/01/20 10:00 AM EDT 06/01/2022 10:29 PM EDT Narrative Resulting Agency Comment Spec In Lab Guanako Barclay DO MOLECULAR ORD ERABLES [facility] [place] [address] documented in this encounter Visit Diagnoses Not on filedocumented in this encounter Care Teams Portainer Operator Relationship Specialty Start Date End Date Sonido Cordoba PA [address] [place] [address] PCP - General Family Medicine 07/06/20 documented as of this encounter
--- OUTSIDE RECORDS SUMMARY | 2024-10-25 13:25 | XMS_ITS | Encounter Summary ---
Author Organization [place] [address] Care Team Providers Care Rug Cutter Name Role Phone Sonido Cordoba Primary Care Provider +1- [phone] Encounter Details Date Type Department Care Team (Late st Contact Info) Description 03/07/2023 2:45 PM EDT Office [place] [address] Sunita Bills, RD [facility] [place] [address] Class 3 severe obesity with serious comorbidity [...] in past visits.Please reach out with a [facility] message if you have any questions or [...] salad-let, claudia, pep, vinaigrette, sometimes chickens or oiyarv-Mwmwspy-ikhvpjwn and fruit D: chicken or hamburgers and [...] [] Needs additional fuv scheduled with this display card writer: No follow-ups on file. (OR) [x] Currently scheduled for: [] 1st consecutive monthly nutrition visit [x] 2nd consecutive monthly nutrition visit [x] 3rd consecutive monthly nutrition visit (OR) [] Patient has met requirement of 3 consecutive monthly nutrition visits Above determined to the best ability of this display card writer. Patient will contact bariatric surgery team [...] 11/26/2024 8:45 AM [place] [phone] [address]eri Avila [address] [address] 12/31/2024 10:00 AM EST Office [place] [address] Mercy Amanda MD [facility] [address] [facility] [address] 04/01/2025 2:00 PM EDT Office Visit Gastroenterology at [facility] [place] [address] Erum Szymanski MD [facility] [place] [address] documented as of this encounter Goals Goal [...] type documented in this encounter Care Teams Rug Cutter Relationship Specialty Start Date End Date Sonido Cordoba PA [address] [place] [address] PCP - General Family Medicine 07/06/20 documented as of this encounter
--- OUTSIDE RECORDS SUMMARY | 2024-10-25 13:25 | XMS_ITS | Encounter Summary ---
Author Organization [facility] [place] [address] Care Team Providers Care Certified Medical Technician Name Role Phone Sonido Cordoba Primary Care Provider +1- [phone] Reason for Visit * Reason Comments Follow-up Weight manament Encounter Details Date Type Department Care Team (Late st Contact Info) Description 07/05/2022 9:00 AM EDT Office Visit Weight and Wellness at [address] [phone] Mercy Amanda MD [facility] DR [facility] MED[facility] [place], [place] [phone] Class 2 severe obesity with serious comorbidity [...] 9:00 AM EDTSummary: 5th visit with MD [facility] [place] Patient Name: Vianney Cordero Date of : [...] and comorbidities GERD/Barretts. This is Visit #5 [facility] visit for this 46 y.o. patient. Initial visit: 10/06/2021, 217 lbs (22 lbs, 10%) 01/09/2022, 227 lbs + 10 lbs 02/10/2022, 228 lbs +1 lbs 04/21/2022, 227 lbs - 1 lbs 06/25/2022, 219 lbs (-8 lbs, + 2 total) [facility] Team: Priti Skinner RD and Erik Sorenson, Health Dry Color Mixer HPI Taking phentermine 8 mg - tolerating well - helping me refuse to eat. Takes it early - 545 AM. Getshungry around lunchtime. Notes having Lap kelley 08/07/2022. 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 [facility] PATHWAY - ADULT 10/06/2021 Obesity [...] (H) 02/10/2022 Lab Results Component Value Date [id number] 542 02/10/2022 25-OH Vit D Total (ng/mL) [...] Co-morbidities addressed: GERD Referrals pending: Dietitian, Health Dry Color Mixer AOM: Metformin, adding phentermine (3 months) Factors [...] me. 3 min chart review 20 min ygvo-pr-yvio Visit time 5 min Documentation time I [...] 11/26/2024 8:45 AM [place] [address] [address] [address] 12/31/2024 10:00 AM EST Office Visit Weight Center at [place] [phone] Mercy Amanda MD [facility] DR [facility] [address] 04/01/2025 2:00 PM EDT Office [place] [phone] Erum Szymanski MD [facility] [place] [address] documented as of this encounter Goals Goal [...] X documented in this encounter Care Teams Certified Medical Technician Relationship Specialty Start Date End Date Sonido Cordoba PA [address] [place] [address] PCP - General Family Medicine 07/06/20 documented as of this encounter
--- OUTSIDE RECORDS SUMMARY | 2024-10-25 13:25 | XMS_ITS | Encounter Summary ---
Author Organization [facility] [place] [address] Care Team Providers Care Supervisor Diagnostic Name Role Phone Sonido Cordoba Primary Care Provider +1- [phone] Reason for Visit * Reason Onset Date Comments Medication Refill 03/30/2023 Encounter Details Date Type Department Care Team (Late st Contact Info) Description 03/30/2023 [place] [address] Mercy Amanda MD [facility] [address] [place] [address] Class 3 severe obesity with serious comorbidity [...] 11/26/2024 8:45 AM EST [place] [address] RubyDiamondKeri Sanches [address] [place] [address] 12/31/2024 10:00 AM EST Office [place] [address] Mercy Amanda MD [facility] DR [place] [address] 04/01/2025 2:00 PM EDT Office [place] [address] Erum Szymanski MD [facility] [place] [address] documented as of this encounter Goals Goal [...] type documented in this encounter Care Teams Supervisor Diagnostic Relationship Specialty Start Date End Date Sonido Cordoba PA [address] [place] [address] PCP - General Family Medicine 07/06/20 documented as of this encounter
--- OUTSIDE RECORDS SUMMARY | 2024-10-25 13:25 | XMS_ITS | Encounter Summary ---
[place] [address] Care Team Providers Care Datapower Consultant Name Role Phone Sonido Cordoba Primary Care Provider +1- [phone] Encounter Details Date Type Department Care Team (Late st Contact Info) Description 02/22/2022 Interpretation Only [address] [address] Clovis [place] [address] Social History Tobacco Use Types Packs/Day Years [...] 11/26/2024 8:45 AM EST [place] [address] RubyDiamondKeri Sanches [address] [place] [address] 12/31/2024 10:00 AM EST Office [place] [phone] Mercy Amanda MD [facility] [address] [place] [address] 04/01/2025 2:00 PM EDT Office [place] [address] Erum Szymanski MD [facility] [place] [address] documented as of this encounter Goals Goal [...] E RAD ADMITDTTM RAD PT RAD INFO [id number]^E DWARDS^DAVION EL^R RAD EXAM DESC [id number]^X R [...] who have questions please contact the health day care home mother that requested your imaging first. ? Narrative [...] patients who have questions please contactthe health day care home mother that requested your imaging first. Clovis Dill MD IMG DX ORDERABLES documented in this encounter Visit Diagnoses Not on filedocumented in this encounter Care Teams Datapower Consultant Relationship Specialty Start Date End Date Sonido Cordoba PA [address] [place] [address] PCP - General Family Medicine 07/06/20 documented as of this encounter
--- OUTSIDE RECORDS SUMMARY | 2024-10-25 13:25 | XMS_ITS | Encounter Summary ---
[place] [address] Care Team Providers Care Molding Line Operator Name Role Phone Sonido Cordoba Primary Care Provider +1- [phone] Encounter Details Date Type Department Care Team (Late Contact Info) Description 02/19/2023 4:00 PM EDT Notes [place] [phone] Social History Tobacco Use Types Packs/Day Years [...] TO BARIATRIC SURGERY ON 02/19/2023 FOR THE [facility] documented in this encounter Plan of Treatment Upcoming Encounters Date Type Department Care Team (Late st Contact Info) Description 11/26/2024 8:45 AM EST Appointment [place] [address] eKri Avila [address] [place] [address] 12/31/2024 10:00 AM EST Office [place] [address] Mercy Amanda MD [facility] DR [facility] [place] [address] 04/01/2025 2:00 PM EDT Office Visit Gastro[place]ology [place] [address] Erum Szymanski MD [facility] [place] [address] documented as of this encounter [...] (would rather have you choose regular bread/ swazi muffin, etc. - whole wheat if possible- [...] on filedocumented in this encounter Care Teams Molding Line Operator Relationship Specialty Start Date End Date Sonido Cordoba PA [address] [place] [address] PCP - General Family Medicine 07/06/20 documented as of this encounter
--- OUTSIDE RECORDS SUMMARY | 2024-10-25 13:25 | XMS_ITS | Encounter Summary ---
Author Organization [facility] [place] [address] Care Team Providers Care Groundskeeping Maintenance Worker Name Role Phone Sonido Cordoba Primary Care Provider +1- [phone] Reason for Visit * Reason Comments Follow-up Weight management Encounter Details Date Type Department Care Team (Late st Contact Info) Description 04/21/2022 2:00 PM EDT Office Visit Weight and Wellness at [address] [phone] Mercy Amanda MD [facility] DR [facility] MEDICINE [place], [place] [phone] Class 3 severe obesity with serious comorbidity [...] 2:00 PM EDTSummary: 4th visit with MD [facility] Patient Name: [...] and comorbidities GERD/Barretts. This is Visit #4 [facility] visit for this 46 y.o. patient. 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 Loves being able to help people. 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 Trying to get [...] Saxenda denied - no AOMs covered by [place] Medicaid C/I: NO pancreatitis YES kidney stone [...] R/b of topiramate to continue combo L/T. [facility] PATHWAY - ADULT 10/06/2021 Obesity Medicine Activate Adult Biobank Decline Goals ??? breakfast choices Continue to eat for the first time when you feel hungry, though consider eating before the car so you can have other options. Consider as many food groups as possible. At breakfast, we want to start with protein as a priority: - Eggs - Cheese - Solomon Islander yogurt / cottage cheese - meat - fish - nuts/seeds - protein shake or bar Start with the protein, can choose to add other foods (would rather have you choose regular bread/ saudi arabian muffin, etc. - whole wheat if possible- [...] (H) 02/10/2022 Lab Results Component Value Date [id number] 542 02/10/2022 25-OH Vit D Total (ng/mL) [...] Co-morbidities addressed: GERD Referrals pending: Dietitian, Health Appointment Clerk AOM: Factors contributing to decision making: NO [...] me. 3 min chart review 30 min [id number]-[id number] Visit time 5 min Documentation time I [...] 11/26/2024 8:45 AM [place] [phone] [address] 12/31/2024 10:00 AM EST Office [place] [address] Mercy Amanda MD [facility] DR [facility] [address] 04/01/2025 2:00 PM EDT Office [place] [address] Erum Szymanski MD [facility] [place] [address] documented as of this encounter Goals Goal [...] a priority: - Eggs - Cheese - [place] Islander yogurt / cottage cheese - meat - fish - nuts/seeds - protein shake or bar Start with the protein, can choose to add other foods (would rather have you choose regular bread/ saudi arabian muffin, etc. - whole wheat if possible- [...] deficiency documented in this encounter Care Teams Groundskeeping Maintenance Worker Relationship Specialty Start Date End Date Sonido Cordoba PA [address] [place] [address] PCP - General Family Medicine 07/06/20 documented as of this encounter
--- OUTSIDE RECORDS SUMMARY | 2024-10-25 13:25 | XMS_ITS | Encounter Summary ---
Author Organization [facility] [place] [address] Care Team Providers Care Patient Care Name Role Phone Sonido Cordoba Primary Care Provider +1- [phone] Reason for Visit * Reason Comments Medication Refill Encounter Details Date Type Department Care Team (Late st Contact Info) Description 12/30/2022 [place] [address] Mercy Amanda MD [facility] [address] [place] [address] Class 3 severe obesity with serious comorbidity [...] 11/26/2024 8:45 AM [place] [address] DandreJustus Keri [address] [place] [address] 12/31/2024 10:00 AM EST Office [place] [address] Mercy Amanda MD [facility] [address] [place] [address] 04/01/2025 2:00 PM EDT Office [place] [address] Erum Szymanski MD [facility] [place] [address] documented as of this encounter Goals Goal [...] X documented in this encounter Care Teams Patient Care Relationship Specialty Start Date End Date Sonido Cordoba PA [address] [place] [address] PCP - General Family Medicine 07/06/20 documented as of this encounter
--- OUTSIDE RECORDS SUMMARY | 2024-10-25 13:25 | XMS_ITS | Encounter Summary ---
[place] [address] Care Team Providers Care Ratoprinter Name Role Phone Sonido Cordoba Primary Care Provider +1- [phone] Encounter Details Date Type Department Care Team (Late st Contact Info) Description 02/22/2022 Interpretation Only [address] [address] Clovis Dill MD [place] [address] Social History Tobacco Use Types Packs/Day Years [...] 11/26/2024 8:45 AM EST [place] [address] RubyDiamondKeri Sanches [address] [place] [address] 12/31/2024 10:00 AM EST Office [place] [address] Mercy Amanda MD [facility] [address] [facility] [address] 04/01/2025 2:00 PM EDT Office [place] [address] Erum Szymanski MD [facility] [place] [address] documented as of this encounter Goals Goal [...] a priority: - Eggs - Cheese - Afghan yogurt / cottage cheese - meat - [...] (02/22/2022 1:01 PM EDT) PT CLASS E DH RAD ADMITDTTM RAD PT RAD INFO [id number]^E DWARDS^DAVION EL^R RAD EXAM DESC [id number]^XR LEFT [...] who have questions please contact the health progressive care unit registered nurse that requested your imaging first. ? Electronically signed by: Bon Garduno MD, [facility] ([phone]), at 02/22/2022 1:06 PM Narrative 02/22/2022 1:06 PM EDT EXAMINATION: XR [...] patients who have questions please contactthe health progressive care unit registered nurse that requested your imaging first. Clovis Dill MD IMG DX ORDERABLES documented in this encounter Visit Diagnoses Not on filedocumented in this encounter Care Teams Ratoprinter Relationship Specialty Start Date End Date Sonido Cordoba PA [address] [place] [address] PCP - General Family Medicine 07/06/20 documented as of this encounter
--- OUTSIDE RECORDS SUMMARY | 2024-10-25 13:25 | XMS_ITS | Encounter Summary ---
[place] [address] Care Team Providers Care Piano Mover Name Role Phone Sonido Cordoba Primary Care Provider +1- [phone] Encounter Details Date Type Department Care Team (Latest Contact Info) Description 08/07/2022 4:01 PM EDT - 08/07/2022 11:59 PM EDT [place] [phone] Discharge Disposition: Home Social History Tobacco Use [...] EC (Protonix) 40 mg Tablet, Delayed Release (E.C.)Indications:[place] tt's esophagus without dysplasia,Gastroesophag eal reflux disease [...] 11/26/2024 8:45 AM EST Appoint[place] [address] Keri Avila [address] [place] [address] 12/31/2024 10:00 AM EST Office [place] [address] Mercy Amanda MD [facility] [address] [facility] [address] 04/01/2025 2:00 PM EDT Office [place] [address] Erum Szymanski MD [facility] [place] [address] documented as of this encounter Goals Goal [...] a priority: - Eggs - Cheese - Divehi yogurt / cottage cheese - meat - [...] Report (08/07/2022 9:00 AM EDT) Final Diagnosis [id number] ? Location: [facility] The signing pathologist has (i) examined the relevant preparation(s) for the specimen(s) and (ii) rendered or confirmed the diagnosis(es). . ?Surgical Pathology DIAGNOSIS A - Gallbladder, excision: - ??Cholesterolosis . Electronically signed by: ?Stoney Gomez MD Verified: ??08/15/2022 16:11 ??Pathologist Performed at: ??-[facility] Dept. of Pathology, [place], [place] SPECIMEN(S) SUBMITTED A - Gallbladder, excision [...] hepatic margin is inked black Sections/Processi ng: Port Crane Operator sections in 1 cassettes as follows: ?A1: ??cystic duct margin and territory account representative mucosa. ??pps 08/15/2022 4:11 PM EDT [facility] GALLBLADDER STRUCTURE / Unknown 08/07/2022 9:00 AM EDT 08/07/2022 9:00 AM EDT Guanako Barclay DO PATHOLOGY/CYT OLOGY ORDERABLES [facility] [place] [address] documented in this encounter Visit Diagnoses Not on filedocumented in this encounter Care Teams Piano Mover Relationship Specialty Start Date End Date Sonido Cordoba PA [address] [place] [address] PCP - General Family Medicine 07/06/20 documented as of this encounter
--- OUTSIDE RECORDS SUMMARY | 2024-10-25 13:25 | XMS_ITS | Encounter Summary ---
Author Organization [facility] [place] [address] Care Team Providers Care Dehydrator Operator Name Role Phone Sonido Cordoba Primary Care Provider +1- [phone] Encounter Details Date Type Department Care Team (Late st Contact Info) Description 04/11/2023 2:45 PM EDT Office [place] [address] Sunita Bills, RD [facility] [place] [address] Class 3 severe obesity with serious comorbidity [...] in past visits.Please reach out with a [email or web address] message if you have any questions or [...] [] Needs additional fuv scheduled with this keno writer: No follow-ups on file. (OR) [x] Currently scheduled for: [] 1st consecutive monthly nutrition visit [] 2nd consecutive monthly nutrition visit [x] 3rd consecutive monthly nutrition visit (OR) [] Patient has met requirement of 3 consecutive monthly nutrition visits Above determined to the best ability of this keno writer. Patient will contact bariatric surgery team [...] 11/26/2024 8:45 AM [place] [address] Keri Avila [address] [place] [address] 12/31/2024 10:00 AM EST Office [place] [address] Mercy Amanda MD [facility] [address] [place] [address] 04/01/2025 2:00 PM EDT Office [place] [address] Erum Szymanski MD [facility] GASTROENTEROLOGY [place], [place] [address] documented as of this encounter Goals Goal [...] type documented in this encounter Care Teams Dehydrator Operator Relationship Specialty Start Date End Date Sonido Cordoba PA [address] [place] [address] PCP - General Family Medicine 07/06/20 documented as of this encounter
--- OUTSIDE RECORDS SUMMARY | 2024-10-25 13:25 | XMS_ITS | Encounter Summary ---
Author Organization [facility] [address] Care Team Providers Care Chisel Worker Name Role Phone Sonido Cordoba Primary Care Provider +1- [phone] Encounter Details Date Type Department Care Team (Latest Contact Info) Description 03/28/2023 2:00 PM EDT Office Visit [place] [address] Erum Szymanski MD [facility] [place] [address] Gastroesophageal reflux disease with esophagitis, unspecified whether [...] Szymanski MD - 03/28/2023 2:00 PM EDT [facility] Section of Gastroenterology and Hepatology Follow-Up Visit PCP: WANDY Aguilera HPI This is a 47 y.o. female with with obesity following up for GERD and RUQ pain. 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 GI PROBLEMS: 1. GERD with long segment [...] to eating, while working. Work is at [employer]. She is grocery shopping for folks, moving [...] visit with psych all set. Got mammo [place] finally scheduled Weight up Had to work overnight, they needed an PARTNER ALLIANCE MANAGER overnight last night, thinks this might be [...] 3.66) performed by Erum Szymanski MD at [facility] ENDOSCOPY ??? PRO COLONOSCOPY, BIOPSY N/A 09/04/2019 COLONOSCOPY FLEXIBLE, WITH BX (WRVU 3.66) performed by Steve Ji MD at [facility] ENDOSCOPY ??? PRO COLONOSCOPY, DIAGNOSTIC N/A 09/04/2019 COLONOSCOPY, DIAGNOSTIC performed by Steve Ji MD at [facility] ENDOSCOPY ??? PRO COLONOSCOPY, REMV LESN, SNARE N/A 08/21/2018 COLONOSCOPY, POLYPECTOMY, REMOVAL LESION BY SNARE (WRVU 4.67) performed by Erum Szymanski MD at [facility] ENDOSCOPY ? ? PRO CYSTO W URETEROSCOPY &/OR PYELOSCOPY, DX Right 06/01/2015 CYSTOURETEROSCOPY, DIAGNOSTIC performed by Darius Nuñez Jr., MD at [facility] MAIN OR ??? PRO CYSTOSCOPY, INSERT URETERAL STENT Right 06/01/2015 CYSTO, STENT PLACEMENT performed by Darius Nuñez Jr., MD at [facility] MAIN OR ??? PRO LAP, ESOPHAGOGAST FUNDOPLASTY N/A 04/05/2015 LAPAROSCOPIC TYESHA FUNDOPLASTY performed by Valentín Moura MD at [facility] MAIN OR ??? PRO PERCUT DILATN RENAL TRACT Right 06/01/2015 PERCUTANEOUS INTRO GUIDE WIRE TO ACCESS RENAL PELVIS,AND OR URETER, W\DILATION performed by Darius Nuñez Jr., MD at [facility] MAIN OR ??? PRO PERQ NL/PL LITHOTRIPSY SIMPLE UP TO 2 CM 1 LOCATION Right 06/01/2015 NEPHROLITHOTOMY, ([facility]) PERCUTANEOUS performed by Darius Nuñez Jr., MD at [facility] MAIN OR ??? PRO REPAIR PERONEAL TENDONS Right 08/12/2020 PERONEAL TENDON REPAIR (WRVU 7.35) performed by Mani Jefferson MD at [facility] OSC ??? PRO UPPER GI ENDOSCOPY, BIOPSY N/A 01/27/2015 EGD WITH BIOPSY performed by Brandt Barlow MD at [facility] ENDOSCOPY ??? PRO UPPER GI ENDOSCOPY, BIOPSY N/A 02/28/2016 EGD WITH BIOPSY performed by Brandt Barlow MD at [facility] ENDOSCOPY ??? PRO UPPER GI ENDOSCOPY, BIOPSY N/A 09/04/2016 EGD WITH BIOPSY performed by Brandt Barlow MD at [facility] ENDOSCOPY ??? PRO UPPER GI ENDOSCOPY, BIOPSY N/A 09/24/2017 EGD WITH BIOPSY (WRVU 2.49) performed by Brandt Barlow MD at [facility] ENDOSCOPY ??? PRO UPPER GI ENDOSCOPY, BIOPSY N/A 08/21/2018 EGD WITH BIOPSY (WRVU 2.49) performed by Erum Szymanski MD at [facility] ENDOSCOPY ??? PRO UPPER GI ENDOSCOPY, BIOPSY N/A 09/04/2019 UPPER GASTROINTESTINAL ENDOSCOPY,WITH BIOPSY SINGLE OR MULTIPLE (WRVU 2.49) performed by Steve Ji MD at [facility] ENDOSCOPY ??? PRO UPPER GI ENDOSCOPY, BIOPSY N/A 05/24/2021 EGD WITH BIOPSY (WRVU 2.49) performed by Kathy Carnes MD at [facility] ENDOSCOPY ??? PRO UPPER GI ENDOSCOPY, DIAGNOSTIC N/A 09/04/2019 EGD, UPPER GI ENDOSCOPY performed by Steve Ji MD at [facility] ENDOSCOPY ??? TONSILLECTOMY Social History [...] burps). MOYA pH study negative, consistent with non-acid reflux [...] colonoscopy given ongoing symptoms, Rodgers's, plans for weight loss surgery ?? ENT [...] Erum Szymanski MD 03/28/23 Erum Szymanski MD Automotive Engineerproperty claims manager Section of Gastroenterology and Hepatology [facility] [email or web address] ([email or web address]) documented in this encounter Plan of Treatment Upcoming Encounters Date Type Department Care Team (Late st Contact Info) Description 11/26/2024 8:45 AM EST Appointment [place] [address] Keri Avila [address] [place] [address] 12/31/2024 10:00 AM EST Office Visit [place] [address] Mercy Amanda MD [facility] [address] 04/01/2025 2:00 PM EDT Office Visit Gastroenterology at [facility] [place] [address] Erum Szymanski MD [facility] [place] [address] documented as of this encounter Goals Goal [...] (would rather have you choose regular bread/ eritrean muffin, etc. - whole wheat if possible- [...] type documented in this encounter Care Teams Chisel Worker Relationship Specialty Start Date End Date Sonido Cordoba PA [address] [place] [address] PCP - General Family Medicine 07/06/20 documented as of this encounter
--- OUTSIDE RECORDS SUMMARY | 2024-10-25 13:25 | XMS_ITS | Encounter Summary ---
[place] [address] Care Team Providers Care Armed Security Officer Name Role Phone Sonido Cordoba Primary Care Provider +1- [phone] Encounter Details Date Type Department Care Team (Late st Contact Info) Description 01/24/2023 Telephone Family Medicine at [facility] [address] [place] [address] Opal Meneses CMA Social History [...] PA Outcome: PA Denial [place] [address] DENIED: Anna Case/Reference #: [id number] Additional Information from Insurance: * Telephone Encounter - Shilo Jade CCMA - 01/24/2023 4:16 PM EDT Images from the original note were not included. * Telephone Encounter - Opal Meneses CMA - 01/24/2023 3:12 PM EDT Summary: PA Medication Prior Authorization Patient: Vianney Cordero Patient : 1975 Insurance Company: [place] Medicaid Sent via: [employer] Meyer: [id number] Physician: Mercy Amanda MD Medication [...] 11/26/2024 8:45 AM EST [place] [address] [address] [address] 12/31/2024 10:00 AM EST Office Visit Weight Center at [facility] [place] [address] Mercy Amanda MD [facility] [address] [facility] [address] 04/01/2025 2:00 PM EDT Office Visit Gastroenterology at [facility] [place] [address] Erum Szymanski MD [facility] [place] [address] documented as of this encounter Goals Goal [...] a priority: - Eggs - Cheese - Burmese yogurt / cottage cheese - meat - [...] on filedocumented in this encounter Care Teams Armed Security Officer Relationship Specialty Start Date End Date Sonido Cordoba PA [address] [place] [address] PCP - General Family Medicine 07/06/20 documented as of this encounter
--- OUTSIDE RECORDS SUMMARY | 2024-10-25 13:25 | XMS_ITS | Encounter Summary ---
[place] [address] Care Team Providers Care Sole Dyer Name Role Phone Sonido Cordoba Primary Care Provider +1- [phone] Reason for Visit * Reason Onset Date Comments Prior Authorization 03/05/2023 Phentermine (Lomaira) 8 mg tablet Encounter Details Date Type Department Care Team (Late st Contact Info) Description 03/05/2023 Telephone [place] [address] Shilo Jade, ASSISTANT PROFESSOR OF BIOLOGY Prior Authorization (Phentermine (Lomaira) 8 mg tablet [...] PA Outcome: PA Denial [place] [address] DENIED: Lomaira Case/Reference #:[id number] Additional Information from Insurance: Excluded from coverage * Telephone Encounter - Shilo Jade CCMA - 03/05/2023 10:51 AM EDT Summary: PA Submitted PA Submitted Submitted Date: Submitted Date: 03/05/2023 Medication Prior Authorization Patient: Vianney Cordero Patient : 1975 Insurance Company: [place] Medicaid Sent via: [employer] Meyer: [id number] Physician: Mercy Amanda MD Medication [...] 11/26/2024 8:45 AM EST [place] [address] Keri Avila [address] [place] [address] 12/31/2024 10:00 AM EST Office Visit Weight Center at [facility] [place] [address] Mercy Amanda MD [facility] [address] [facility] [address] 04/01/2025 2:00 PM EDT Office [place] [address] Erum Szymanski MD [facility] [place] [address] documented as of this encounter Goals Goal [...] a priority: - Eggs - Cheese - Hebrew yogurt / cottage cheese - meat - [...] on filedocumented in this encounter Care Teams Sole Dyer Relationship Specialty Start Date End Date Sonido Cordoba PA [address] [place] [address] PCP - General Family Medicine 07/06/20 documented as of this encounter
--- OUTSIDE RECORDS SUMMARY | 2024-10-25 13:25 | XMS_ITS | Encounter Summary ---
Author Organization [facility] [address] Care Team Providers Care Asset Accountant Name Role Phone Sonido Cordoba Primary Care Provider +1- [phone] Reason for Visit * Reason Comments Medication Refill Encounter Details Date Type Department Care Team (Late st Contact Info) Description 01/21/2023 Refill [place] [address] Mercy Amanda MD [facility] [address] [place] [address] Class 3 severe obesity with serious comorbidity [...] 11/26/2024 8:45 AM EST Appointment [place] [address] CesarioGermain Keri [address] [place] [address] 12/31/2024 10:00 AM EST Office [place] [address] Mercy Amanda MD [facility] [address] [place] [address] 04/01/2025 2:00 PM EDT Office Visit [place] [address] Erum Szymanski MD [facility] [place] [address] documented as of this encounter [...] a priority: - Eggs - Cheese - Palestinian yogurt / cottage cheese - meat - [...] type documented in this encounter Care Teams Asset Accountant Relationship Specialty Start Date End Date Sonido Cordoba PA [address] [place] [address] PCP - General Family Medicine 07/06/20 documented as of this encounter
--- OUTSIDE RECORDS SUMMARY | 2024-10-25 13:25 | XMS_ITS | Encounter Summary ---
[place] [address] Care Team Providers Care Casing Splitter Name Role Phone Sonido Cordoba Primary Care Provider +1- [phone] Encounter Details Date Type Department Care Team [...] 11/26/2024 8:45 AM EST [place] [address] Keri Avila [address] [place], [place] [address] 12/31/2024 10:00 AM EST Office [place] [address] Mercy Amanda MD [facility] [address] [facility] [address] 04/01/2025 2:00 PM EDT Office Visit Gastroenterology at [facility] [place] [address] Erum Szymanski MD [facility] [place] [address] documented as of this encounter Goals Goal [...] a priority: - Eggs - Cheese - American yogurt / cottage cheese - meat - [...] on filedocumented in this encounter Care Teams Casing Splitter Relationship Specialty Start Date End Date Sonido Cordoba PA [address] [place] [address] PCP - General Family Medicine 07/06/20 documented as of this encounter
--- OUTSIDE RECORDS SUMMARY | 2024-10-25 13:25 | XMS_ITS | Encounter Summary ---
Author Organization [facility] [place] [address] Care Team Providers Care Salesperson Men'S Furnishings Name Role Phone Sonido Cordoba Primary Care Provider +1- [phone] Reason for Visit * Reason Comments Medication Refill Encounter Details Date Type Department Care Team (Late st Contact Info) Description 04/01/2023 Ref[place] [address] Mercy Amanda MD [facility] [address] [place] [address] Class 3 severe obesity with serious comorbidity [...] 11/26/2024 8:45 AM EST Appoint[place] [address] DandreJustus Keri [address] [place] [address] 12/31/2024 10:00 AM EST Office [place] [address] Mercy Amanda MD [facility] [address] [place] [address] 04/01/2025 2:00 PM EDT Office [place] [address] Erum Szymanski MD [facility] [place] [address] documented as of this encounter Goals Goal [...] a priority: - Eggs - Cheese - Telugu yogurt / cottage cheese - meat - [...] X documented in this encounter Care Teams Salesperson Men'S Furnishings Relationship Specialty Start Date End Date Sonido Cordoba PA [address] [place] [address] PCP - General Family Medicine 07/06/20 documented as of this encounter
--- OUTSIDE RECORDS SUMMARY | 2024-10-25 13:25 | XMS_ITS | Encounter Summary ---
[place] [address] Care Team Providers Care Gear Cutting Machine Operator Name Role Phone Sonido Cordoba Primary Care Provider +1- [phone] Encounter Details Date Type Department Care Team [...] 11/26/2024 8:45 AM EST [place] [address] Keri Avila [address] [place] [address] 12/31/2024 10:00 AM EST Office [place] [address] Mercy Amanda MD [facility] [address] [facility] [address] 04/01/2025 2:00 PM EDT Office Visit Gastroenterology at [facility] [place] [address] Erum Szymanski MD [facility] [place] [address] documented as of this encounter Goals Goal [...] on filedocumented in this encounter Care Teams Gear Cutting Machine Operator Relationship Specialty Start Date End Date Sonido Cordoba PA [address] [place] [address] PCP - General Family Medicine 07/06/20 documented as of this encounter
--- OUTSIDE RECORDS SUMMARY | 2024-10-25 13:25 | XMS_ITS | Encounter Summary ---
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; Gastroesophageal reflux disease [...] 11/26/2024 8:45 AM EST Appointment [place] [address] DandreKeri Jerome [address] [place] [address] 12/31/2024 10:00 AM EST Office [place] [address] Mercy Amanda MD [facility] [address] [place] [address] 04/01/2025 2:00 PM EDT Office Visit Gastroenterology at [facility] [place] [address] Erum Szymanski MD [facility] [place] [address] documented as of this encounter Goals Goal [...] a priority: - Eggs - Cheese - Botswanan yogurt / cottage cheese - meat - fish - nuts/seeds - protein shake or bar Start with the protein, can choose to add other foods (would rather have you choose regular bread/ norwegian muffin, etc. - whole wheat if possible- [...] hemorrhage documented in this encounter Care Teams Quality Project Manager Relationship Specialty Start Date End Date Sonido Cordoba PA [address] [place] [address] PCP - General Family Medicine 07/06/20 documented as of this encounter
--- OUTSIDE RECORDS SUMMARY | 2024-10-25 13:25 | XMS_ITS | Encounter Summary ---
[place] [address] Care Team Providers Care Network Security Administrator Name Role Phone Sonido Cordoba Primary Care Provider +1- [phone] Encounter Details Date Type Department Care Team [...] 11/26/2024 8:45 AM EST Appointment [place] [address] Keri Avila [address] [place], [place] [address] 12/31/2024 10:00 AM EST Office [place] [address] Mercy Amanda MD [facility] [address] [facility] [address] 04/01/2025 2:00 PM EDT Office Visit Gastroenterology at [facility] [place] [address] Erum Szymanski MD [facility] [place] [address] documented as of this encounter Goals Goal [...] a priority: - Eggs - Cheese - Bulgarian yogurt / cottage cheese - meat - [...] filedocumented in this encounter Care Teams Network Security Administrator Relationship Specialty Start Date End Date Sonido Cordoba PA [address] [place] [address] PCP - General Family Medicine 07/06/20 documented as of this encounter
--- OUTSIDE RECORDS SUMMARY | 2024-10-25 13:25 | XMS_ITS | Encounter Summary ---
[place] [address] Care Team Providers Care Malt Liquors Sales Representative Name Role Phone Sonido Cordoba Primary Care Provider +1- [phone] Encounter Details Date Type Department Care Team (Late st Contact Info) Description 08/07/2022 Interpretation Only [facility] [address] [place] [address] Guanako Barclay, DO [address] [place] [address] Social History Tobacco Use Types [...] 11/26/2024 8:45 AM EST [place] [address] Keri Avila [address] [place] [address] 12/31/2024 10:00 AM EST Office Visit Weight Center at [place] [address] Mercy Amanda MD [facility] [address] [facility] [address] 04/01/2025 2:00 PM EDT Office [place] [address] Erum Szymanski MD [facility] [place] [address] documented as of this encounter Goals Goal [...] a priority: - Eggs - Cheese - Azeri yogurt / cottage cheese - meat - fish - nuts/seeds - protein shake or bar Start with the protein, can choose to add other foods (would rather have you choose regular bread/ guamanian muffin, etc. - whole wheat if possible- [...] CLASS O RAD ADMITDTTM RAD PT RAD MD INFO [id number]^D ANIELSON^CHR ISTOPHER^S RAD EXAM DESC XCHOL^CHOLAN GIOGRAM [...] who have questions please contact the health critical care educator that requested your imaging first. ? Electronically signed by: Rustam Roman MD, [facility] ([phone]), at 08/07/2022 9:15 AM Narrative 08/07/2022 9:15 [...] patients who have questions please contactthe health critical care educator that requested your imaging first. Electronically signed by: Rustam Roman MD, [facility]([phone]), at 08/07/2022 9:15 AM Guanako aBrclay DO [facility] documented in this encounter Visit Diagnoses Not on filedocumented in this encounter Care Teams Malt Liquors Sales Representative Relationship Specialty Start Date End Date Sonido Cordoba PA [address] [place] [address] PCP - General Family Medicine 07/06/20 documented as of this encounter
--- OUTSIDE RECORDS SUMMARY | 2024-10-25 13:25 | XMS_ITS | Encounter Summary ---
Author Organization [facility] [place] [address] Care Team Providers Care Dope Weigh Operator Name Role Phone Sonido Cordoba Primary Care Provider +1- [phone] Encounter Details Date Type Department Care Team (Late st Contact Info) Description 02/16/2022 Orders Only Weight and Wellness at [facility] [address] [place] [address] Mercy Amanda MD [facility] [address] [facility] [place], [place] [address] Insulin resistance; Class 3 severe obesity with [...] 8:45 AM EST Appointment [place] [address] DandreJustus Keri [address] [place] [address] 12/31/2024 10:00 AM EST Office [place] [address] Mercy Amanda MD [facility] [address] [facility] [address] 04/01/2025 2:00 PM EDT Office Visit Gastroenterology [place] [address] Erum Szymanski MD [facility] [place] [address] documented as of this encounter [...] (would rather have you choose regular bread/ burmese muffin, etc. - whole wheat if possible- [...] type documented in this encounter Care Teams Dope Weigh Operator Relationship Specialty Start Date End Date Sonido Cordoba PA [address] [place] [address] PCP - General Family Medicine 07/06/20 documented as of this encounter
--- OUTSIDE RECORDS SUMMARY | 2024-10-25 13:25 | XMS_ITS | Encounter Summary ---
Author Organization [facility] [place] [address] Care Team Providers Care Conversion Worker Name Role Phone Sonido Cordoba Primary Care Provider +1- [phone] Reason for Referral * Consultation (Routine) - Closed Specialty Diagnoses / Procedures Referred By Aric madrigal Referred To Contact General Surgery Diagnoses Class 3 severe obesity with serious comorbidity and body mass index (BMI) of 40.0 to 44.9 in adult, unspecified obesity type Mercy Amanda MD [facility] [address] [facility] [address] [facility] [address] [place] [address] Referral ID Status Reason Start Date Expiration Date V isits Requested Visits Authorized [id number] Closed Consult, Test & Treat 01/24/2023 01/24/2024 1 1 Encounter Details Date Type Department Care Team (Late st Contact Info) Description 01/19/2023 11:00 AM EDT Office [place] [address] Mercy Amanda MD [facility] [address] [facility] [address] Class 3 severe obesity with serious comorbidity [...] 01/19/2023 11:00 AM EDTSummary: 8th visit with [facility] Patient [...] and comorbidities GERD/Barretts. This is Visit #8 [facility] visit for this 47 y.o. patient. 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 Parking in [address] and walking all [...] Saxenda denied - no AOMs covered by [place] Medicaid C/I: GB? NO s/p lap CCY [...] this to shift her set point. 10/06/2021 [facility] PATHWAY - ADULT Obesity Medicine Activate [...] a priority: - Eggs - Cheese - Swazi yogurt / cottage cheese - meat - [...] Vitals: 01/19/23 1103 BP: 143/61 BP Location ([facility]): Left arm Patient Position: Sitting [...] (H) 02/10/2022 Lab Results Component Value Date [id number] 02/10/2022 25-OH Vit D Total (ng/mL) [...] me. 3 min chart review 50 min [id number] Visit time 5 min Documentation time I [...] 11/26/2024 8:45 AM EST [place] [address] Keri Avila [address] [place] [address] 12/31/2024 10:00 AM EST Office [place] [address] Mercy Amanda MD [facility] [address] [facility] [address] 04/01/2025 2:00 PM EDT Office [place] [address] Erum Szymanski MD [facility] [place] [address] Scheduled Referrals Name Type Priority Associated Diagnoses [...] a priority: - Eggs - Cheese - Swazi yogurt / cottage cheese - meat - [...] deficiency documented in this encounter Care Teams Conversion Worker Relationship Specialty Start Date End Date Sonido Cordoba PA [address] [place] [address] PCP - General Family Medicine 07/06/20 documented as of this encounter
--- OUTSIDE RECORDS SUMMARY | 2024-10-25 13:25 | XMS_ITS | Encounter Summary ---
Author Organization [facility]ly [facility] [place] [address] Care Team Providers Care Cook Italian Style Food Name Role Phone Sonido Cordoba Primary Care Provider +1- [phone] Encounter Details Date Type Department Care Team (Late st Contact Info) Description 11/15/2022 11:00 AM EST TH Visit (TeleHealth) Weight and Wellness at [address] [phone] Mercy Amanda MD [facility] [address] Class 3 severe obesity with serious comorbidity [...] this video visit, pt is located at: [facility] Patient Name: Vianney Cordero Date of : [...] and comorbidities GERD/Barretts. This is Visit #7 [facility] visit for this 47 y.o. patient. Initial visit: 10/06/2021, 217 lbs (22 lbs, 10%) 01/09/2022, 227 lbs + 10 lbs 02/10/2022, 228 lbs +1 lbs 04/21/2022, 227 lbs - 1 lbs 06/25/2022, 219 lbs (-8 lbs, + 2 total) 09/08/2022, 226.8 lbs (+7.8 lbs + 9.8 lbs) 11/15/2022, 233 lbs (+ 6.2 lbs, + 16 lbs) [facility] Team: Priti Skinner RD and Erik Sorenson, Health Grout Machine Operator HPI Things are good. Nothing is new. [...] and feeling better after lap kelley. At [facility] and one day a week at [facility]. Sleep - sleeping good, getting 6-7 hours [...] Saxenda denied - no AOMs covered by [place] Medicaid C/I: GB? NO s/p lap CCY [...] (would rather have you choose regular bread/ mozambican muffin, etc. - whole wheat if possible- [...] (H) 02/10/2022 Lab Results Component Value Date [id number] 02/10/2022 25-OH Vit D Total (ng/mL) [...] rivas. 3 min chart review 30 min [id number] Visit time 5 min Documentation time I [...] 11/26/2024 8:45 AM EST Appointment [place] [address] [address] [address] 12/31/2024 10:00 AM EST Office [place] [address] Mercy Amanda MD [facility] [address] 04/01/2025 2:00 PM EDT Office [place] [address] Erum Szymanski MD [facility] [place] [address] documented as of this encounter Goals Goal [...] (would rather have you choose regular bread/ mozambican muffin, etc. - whole wheat if possible- [...] hypercholesterolemia documented in this encounter Care Teams Cook Italian Style Food Relationship Specialty Start Date End Date Sonido Cordoba PA [address] [place] [address] PCP - General Family Medicine 07/06/20 documented as of this encounter
--- OUTSIDE RECORDS SUMMARY | 2024-10-25 13:26 | XMS_ITS | Encounter Summary ---
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 Avoid fried foods and red sauces. Stay upright for 3 hours after eating Keep doing diaphragmatic breathing Continue with weight and wellness to work towards a healthier weight and keep it off Colonoscopy 08/2022 for surveillance - please call [phone] to schedule If worsening symptoms, recommend pH impedence testing. Follow-up in: 12 months, sooner if needed documented in this encounter Progress Notes * Erum Szymanski MD - 12/21/2021 4:[address] [facility] Section of Gastroenterology and Hepatology [...] related to eating, while working.Work is at [email or web address]. 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 Still working at [email or web address] as well - they did up her pay from $10 to 12. 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 Has been off of pantoprazole because she [...] 3.66) performed by Erum Szymanski MD at [facility] ENDOSCOPY ??? PRO COLONOSCOPY, BIOPSY N/A 09/04/2019 COLONOSCOPY FLEXIBLE, WITH BX (WRVU 3.66) performed by Steve Ji MD at [facility] ENDOSCOPY ??? PRO COLONOSCOPY, DIAGNOSTIC N/A 09/04/2019 COLONOSCOPY, DIAGNOSTIC performed by Steve Ji MD at [facility] ENDOSCOPY ??? PRO COLONOSCOPY, REMV LESN, SNARE N/A 08/21/2018 COLONOSCOPY, POLYPECTOMY, REMOVAL LESION BY SNARE (WRVU 4.67) performed by Erum Szymanski MD at [facility] ENDOSCOPY ? ? PRO CYSTO W URETEROSCOPY &/OR PYELOSCOPY, DX Right 06/01/2015 CYSTOURETEROSCOPY, DIAGNOSTIC performed by Darius Nuñez Jr., MD at [facility] MAIN OR ??? PRO CYSTOSCOPY, INSERT URETERAL STENT Right 06/01/2015 CYSTO, STENT PLACEMENT performed by Darius Nuñez Jr., MD at [facility] MAIN OR ??? PRO LAP, ESOPHAGOGAST FUNDOPLASTY N/A 04/05/2015 LAPAROSCOPIC TYESHA FUNDOPLASTY performed by Valentín Moura MD at [facility] MAIN OR ??? PRO PERCUT DILATN RENAL TRACT Right 06/01/2015 PERCUTANEOUS INTRO GUIDE WIRE TO ACCESS RENAL PELVIS,AND OR URETER, W\DILATION performed by Darius Nuñez Jr., MD at [facility] MAIN OR ??? PRO PERCUT REMV KID STONE, UP TO 2 CM Right 06/01/2015 NEPHROLITHOTOMY, ([facility]) PERCUTANEOUS performed by Darius Nuñez Jr., MD at [facility] MAIN OR ??? PRO REPAIR PERONEAL TENDONS Right 08/12/2020 PERONEAL TENDON REPAIR (WRVU 7.35) performed by Mani Jefferson MD at [facility] OSC ??? PRO UPPER GI ENDOSCOPY, BIOPSY N/A 01/27/2015 EGD WITH BIOPSY performed by Brandt Barlow MD at [facility] ENDOSCOPY ??? PRO UPPER GI ENDOSCOPY, BIOPSY N/A 02/28/2016 EGD WITH BIOPSY performed by Brandt Barlow MD at [facility] ENDOSCOPY ??? PRO UPPER GI ENDOSCOPY, BIOPSY N/A 09/04/2016 EGD WITH BIOPSY performed by Brandt Barlow MD at [facility] ENDOSCOPY ??? PRO UPPER GI ENDOSCOPY, BIOPSY N/A 09/24/2017 EGD WITH BIOPSY (WRVU 2.49) performed by Brandt Barlow MD at [facility] ENDOSCOPY ??? PRO UPPER GI ENDOSCOPY, BIOPSY N/A 08/21/2018 EGD WITH BIOPSY (WRVU 2.49) performed by Erum Szymanski MD at [facility] ENDOSCOPY ??? PRO UPPER GI ENDOSCOPY, BIOPSY N/A 09/04/2019 UPPER GASTROINTESTINAL ENDOSCOPY,WITH BIOPSY SINGLE OR MULTIPLE (WRVU 2.49) performed by Steve Ji MD at [facility] ENDOSCOPY ??? PRO UPPER GI ENDOSCOPY, BIOPSY N/A 05/24/2021 EGD WITH BIOPSY (WRVU 2.49) performed by Kathy Carnes MD at [facility] ENDOSCOPY ??? PRO UPPER GI ENDOSCOPY, DIAGNOSTIC N/A 09/04/2019 EGD, UPPER GI ENDOSCOPY performed by Steve Ji MD at [facility] ENDOSCOPY ??? TONSILLECTOMY Social History Socioeconomic [...] If any problems with insurance, can try https://costSpecial Network Servicess.com/medications/categories/acid-reflux/ ?? Eat small frequent meals (avoid fasting for prolonged periods). Avoid fried foods and red sauces. Stay upright for 3 hours after eating ?? Keep doing diaphragmatic breathing ?? Continue with weight and wellness to work towards a healthier weight and keep it off ?? Colonoscopy 08/2022 for surveillance - please call [phone] to schedule ?? If worsening symptoms, recommend [...] Erum Szymanski MD 12/21/21 Erum Szymanski MD Core Cutter And Reamerdrilling superintendent Section of Gastroenterology and Hepatology [facility] [email or web address] ([email or web address]) documented in this encounter Plan of Treatment Upcoming Encounters Date Type Department Care Team (Late st Contact Info) Description 11/26/2024 8:45 AM EST Appointment [place] [address] Keri Avila [address] [place] [address] 12/31/2024 10:00 AM EST Office [place] [address] Mercy Amanda MD [facility] [address] [facility] [place] [address] 04/01/2025 2:00 PM EDT Office [place] [address] Erum Szymanski MD [facility] [place] [address] documented as of this encounter Goals Goal [...] present documented in this encounter Care Teams Heater Operator Relationship Specialty Start Date End Date Sonido Cordoba PA [address] [place] [address] PCP - General Family Medicine 07/06/20 documented as of this encounter
--- OUTSIDE RECORDS SUMMARY | 2024-10-25 13:26 | XMS_ITS | Encounter Summary ---
[place] [address] Care Team Providers Care Floral Clerk Name Role Phone Sonido Cordoba Primary Care Provider +1- [phone] Encounter Details Date Type Department Care Team (Late st Contact Info) Description 04/22/2021 Telephone [place] [address] Gaurang Damon Social History Tobacco [...] Miscellaneous Notes * Telephone Encounter - Gaurang Dmaon - 04/22/2021 2:09 PM EDT [facility]INICAL SAFETY CHECKLIST 04/22/2021 Gaurang Vargheseell [address] [facility] [id number] : 1975 REFERRING PROVIDER: Erum Szymanski PRIMARY [...] their provider to consider alternative testing. The engineering job titles should also contact the provider's office directly tonotify them that we are unable to schedule due to a contraindication to testing. Then, delete the remainder of this checklist and close out the referral. QUESTIONS TO THE PATIENT PATIENT AGREE TO IN-PERSON RETURN OF MANAGER ESTATE WITHIN 72H OF CAPSULE PLACEMENT: Yes PT [...] DOES PT KNOW HE/SHE MUST HAVE A CONTESTANT COORDINATOR FOR AFTER PROCEDURE: Yes documented in this encounter Plan of Treatment Upcoming Encounters Date Type Department Care Team (Late st Contact Info) Description 11/26/2024 8:45 AM EST [place] [phone] Keri Avila [address] [place] [address] 12/31/2024 10:00 AM EST Office Visit Weight Center at [place] [phone] Mercy Amanda MD [facility] DR [facility] [address] 04/01/2025 2:00 PM EDT Office Visit Gastroenterology at [place] [phone] Erum Szymanski MD [facility] [place] [address] documented as of this encounter Visit Diagnoses Not on filedocumented in this encounter Care Teams Floral Clerk Relationship Specialty Start Date End Date Sonido Cordoba PA [address] [place] [address] PCP - General Family Medicine 07/06/20 documented as of this encounter
--- OUTSIDE RECORDS SUMMARY | 2024-10-25 13:26 | XMS_ITS | Encounter Summary ---
[place] [address] Care Team Providers Care Shift Superintendent Name Role Phone Sonido Cordoba Primary Care Provider +1- [phone] Encounter Details Date Type Department Care Team (Late st Contact Info) Description 04/21/2021 Telephone [place] [address] Gaurang Damon Social History Tobacco [...] calls can be handled by: Motility Lab Rehabilitation Assistant documented in this encounter Plan of Treatment Upcoming Encounters Date Type Department Care Team (Late st Contact Info) Description 11/26/2024 8:45 AM EST [place] [address] Keri Avila [address] [place] [address] 12/31/2024 10:00 AM EST Office [place] [phone] Mercy Amanda MD [facility] [address] [facility] [address] 04/01/2025 2:00 PM EDT Office [place] [phone] Erum Szymanski MD [facility] [place] [address] documented as of this encounter Visit Diagnoses Not on filedocumented in this encounter Care Teams Shift Superintendent Relationship Specialty Start Date End Date Sonido Cordoba PA [address] [place] [address] PCP - General Family Medicine 07/06/20 documented as of this encounter
--- OUTSIDE RECORDS SUMMARY | 2024-10-25 13:26 | XMS_ITS | Encounter Summary ---
[place] [address] Care Team Providers Care Member Of Technical Staff Name Role Phone Sonido Cordoba Primary Care Provider +1- [phone] Encounter Details Date Type Department Care Team (Late st Contact Info) Description 02/10/2022 External Results Weight and Wellness at [address] [phone] Kezia Preston, RN Social History Tobacco Use [...] 11/26/2024 8:45 AM EST Appointment [place] [address] Keri Avila [address] [place] [address] 12/31/2024 10:00 AM EST Office [place] [address] Mercy Amanda MD [facility] DR [facility] [address] 04/01/2025 2:00 PM EDT Office [place] [address] Erum Szymanski MD [facility] [place] [address] documented as of this encounter [...] a priority: - Eggs - Cheese - Guamanian yogurt / cottage cheese - meat - [...] Procedure Name Priority Date/Time Associated Diagnosis Comments [facility] EXTERNAL RESULT PANEL Routine 01/19/2022 documented in this encounter Results * (ABNORMAL) [facility] External Results (01/19/2022) Glucose Fasting 87 [...] on filedocumented in this encounter Care Teams Member Of Technical Staff Relationship Specialty Start Date End Date Sonido Cordoba PA [address] [place] [address] PCP - General Family Medicine 07/06/20 documented as of this encounter
--- OUTSIDE RECORDS SUMMARY | 2024-10-25 13:26 | XMS_ITS | Encounter Summary ---
Author Organization [facility] [address] Care Team Providers Care Water Server Name Role Phone Sonido Cordoba Primary Care Provider +1- [phone] Reason for Visit * Reason Comments Follow-up Weight managment Encounter Details Date Type Department Care Team (Late st Contact Info) Description 01/09/2022 2:30 PM EST Office Visit Weight and Wellness at [address] [phone] Mercy Amanda MD [facility] DR [facility] [address] Class 3 severe obesity with serious comorbidity [...] from the original note were not included. [facility] Patient Name: [...] with Rodgers's esophagus This is Visit #2 [facility] visit for this 46 y.o. patient. Initial visit: 10/06/2021 Initial weight: 217 lbs Initial BMI:38.49 Goal weight: Unclear 10% loss: 21.7 lbs Today's weight: 227 lbs Change since prior: + 10 lbs [facility] Team: Priti Skinner RD, Erik Sorenson [facility] PATIENT REPORTS : I am gaining [...] improve and Rodgers's if she lost weight. ([id number]?). Also has fatty liver. Ready to try [...] snow has melted. 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 Barriers: []needs cardiac eval []injury/pain preventing activity right now Stress Management:no concerns Sleep: no concerns, Other: Will reassess at next visit Self-monitoring: Food log - can use pen and paper just to gather information, not track calories. Pathway: []Individual []HLP []Surgery []Culinary []ACT []Monthly Lifestyle Classes Discusssion : Pillars, Discussion 01/09/22: Pathways, SMART goals [facility] PATHWAY - ADULT 10/06/2021 Obesity Medicine [...] (would rather have you choose regular bread/ dutch muffin, etc. - whole wheat if possible- [...] Vitals: 01/09/22 1416 BP: 131/66 BP Location ([facility]): Right arm Patient Position: Sitting BP [...] found for: FERRITIN No results found for: [id number] No results found for: 25OHVITD ASSESSMENT AND [...] liver and GERD Referrals pending: Dietitian, Health Tare Weigher AOM: Factors contributing to decision making: Hx [...] me. 5 min chart review 30 min [id number] Visit time 5 min Documentation time I [...] 11/26/2024 8:45 AM EST Appointment [place] [phone] Keri Avila [address] [place] [address] 12/31/2024 10:00 AM EST Office [place] [address] Mercy Amanda MD [facility] DR [facility] [address] 04/01/2025 2:00 PM EDT Office Visit [place] [phone] Erum Szymanski MD [facility] [place] [address] documented as of this encounter Goals Goal [...] (would rather have you choose regular bread/ dutch muffin, etc. - whole wheat if possible- [...] * (ABNORMAL) Ferritin (02/10/2022 11:26 AM EDT) [facility] Signature Ferritin 161(H) 15 - 150 ng/mL [facility] Comment: Pediatric reference ranges not verified at [facility], interpret with caution. Reference ranges for females greater than 50 years of age approach values for men, i.e., 30-400 ng/mL. Blood 02/10/2022 11:2 6 AM EDT 02/10/2022 6:09 PM EDT Narrative Resulting Agency Comment Spec In Lab Mercy Amanda MD CHEMISTRY ORDLavelle LAURA [facility] [place] [address] * Vitamin B12 (02/10/2022 11:26 AM EDT) Vitamin B12 542 232 - 1,245 pg/mL [facility] Blood 02/10/2022 11:2 6 AM EDT 02/10/2022 6:09 PM EDT Narrative Resulting Agency Comment Spec In Lab Mercy Amanda MD CHEMISTRY GLORIA LAURA Performing Organization Address City/[facility]/ZIP Co de Phone Number [facility] [place] [address] * (ABNORMAL) Vitamin D, 25-Hydroxy (02/10/2022 11:26 AM EDT) Vitamin D Total 25 OH 20(L) 21 - 100 ng/mL [facility] Vit D Interp Deficient [facility] Blood 02/10/2022 11:2 6 AM EDT 02/10/2022 6:09 PM EDT Narrative Resulting Agency Comment Spec In Lab Mercy Amanda MD CHEMISTRY GLORIA LAURA Performing Organization Address City/[facility]/ZIP Co de Phone Number [facility] [place] [address] * TSH (02/10/2022 11:26 AM EDT) Thyroid Stimulating Hormone 2.34 0.27 - 4.20 mcIU/mL [facility] Comment: Reference Interval (mcIU/mL): Females: ??First Trimester: 0.23-3.88 ??Second Trimester: 0.22-3.90 ??Third Trimester: 0.44-4.66 Blood 02/10/2022 11:2 6 AM EDT 02/10/2022 2:32 PM EDT Narrative Resulting Agency Comment Spec In Lab Mercy Amanda MD CHEMISTRY GLORIA LAURA [facility] [place] [address] * CMP w/fasting Glucose (02/10/2022 11:26 AM EDT) Glucose Fasting 94 65 - 99 mg/dL [facility] Comment: ?Fasting* Glucose Interpretive Criteria [...] of Diabetes Mellitus, Position Statement from the [place] [employer]. ??Diabetes Care, Volume 33, Supplement 1, Nov 2009 Blood Urea Nitrogen 12 8 - 18 mg/dL [facility] Creatinine 0.75 0.70 - 1.20 mg/dL [facility] Sodium 138 135 - 145 mmol/L [facility] Potassium 4.0 3.5 - 5.0 mmol/L [facility] Comment: Please note: ??Patients with WBC >100,000 may have falsely elevated Potassium levels. ??For accurate Potassium quantification in these patients send serum separator tube (gold top) for subsequent determinations. ??Contact the Clinical Chemistry Laboratory if there are any questions. Chloride 105 98 - 107 mmol/L [facility] Carbon Dioxide 24 22 - 31 mmol/L [facility] Anion Gap 9 5 - 15 mmol/L [facility] Calcium 9.2 8.5 - 10.5 mg/dL [facility] Protein, Total 7.3 6.1 - 8.0 g/dL [facility] Albumin 4.3 3.2 - 5.2 g/dL [facility] Aspartate Aminotransferase 15 0 - 30 unit/L [facility] Alanine Aminotransferase 9 0 - 30 unit/L [facility] Alkaline Phosphatase 82 35 - 105 unit/L [facility] Bilirubin, Total 0.4 0.2 - 1.3 mg/dL [facility] Est Glomerular Filtration Rate 96 >=60 mL/min/1. 73 m?? [facility] Comment: This patient? s estimated [...] Lab Mercy Amanda MD CHEMISTRY GLORIA LAURA [place] Organization Address City/State/ZIP Co de Phone Number [facility] [place] [address] documented in this encounter Visit Diagnoses Diagnosis Class 3 severe obesity with serious comorbidity and body mass index (BMI) of 40.0 to 44.9 in adult, unspecified obesity type documented in this encounter Care Teams Water Server Relationship Specialty Start Date End Date Sonido Cordoba PA [address] [place] [address] PCP - General Family Medicine 07/06/20 documented as of this encounter
--- OUTSIDE RECORDS SUMMARY | 2024-10-25 13:26 | XMS_ITS | Encounter Summary ---
[place] [address] Care Team Providers Care Pipe Covering Molder Name Role Phone Sonido Cordoba Primary Care Provider +1- [phone] Reason for Referral * Diagnostic Test (Routine) - Closed Specialty Diagnoses / Procedures Referred By Contac t Referred To Contact Radiology Diagnoses Peroneal tendon tear, right, subsequent encounter Procedures MRI Ankle wo Contrast Right Gracy Ellis PA [facility] [place] [address] [place] [address] Referral ID Status Reason Start Date Expiration Date V isits Requested Visits Authorized [id number] Closed Specialty Service Requested 08/03/2021 01/31/2023 1 1 Reason for Visit * Diagnostic Test (Routine) - Closed Specialty Diagnoses / Procedures Referred By Contac t Referred To Contact Radiology Diagnoses Peroneal tendon tear, right, subsequent encounter Procedures MRI Ankle wo Contrast Right Gracy Ellis PA [facility] [place] [address] [facility] [place] [address] Referral ID Status Reason Start Date Expiration Date V isits Requested Visits Authorized [id number] Closed Specialty Service Requested 08/03/2021 01/31/2023 1 1 Encounter Details Date Type Department Care Team (Latest Contact Info) Description 08/26/2021 6:23 PM EDT - 08/26/2021 11:59 PM EDT Hospital [place] [address] Milly Avila MD [facility] DR [place] [address] Peroneal tendon tear, right, subsequent [...] 11/26/2024 8:45 AM EST [place] [address] DandreJustus Keri [address] [place] [address] 12/31/2024 10:00 AM EST Office [place] [address] Mercy Amanda MD [facility] DR [facility] [address] 04/01/2025 2:00 PM EDT Office [place] [address] Erum Szymanski MD [facility] [place] [address] documented as of this encounter Procedures Procedure [...] have questions please contact the health career development facilitator that requested your imaging first. ? Electronically signed by: Melanie Jimenes MD, [facility] ([phone]), at 08/29/2021 4:49 PM Narrative 08/29/2021 4:49 [...] residual findings of plantar fasciitis when compared [id number]. Preliminary report signed by: Henry Wheatley at [...] who have questions please contactthe health career development facilitator that requested your imaging first. Milly Avila MD IMG MRI ORDERABLES documented in this encounter Visit Diagnoses Diagnosis Peroneal tendon tear, right, subsequent encounter documented in this encounter Care Teams Pipe Covering Molder Relationship Specialty Start Date End Date Sonido Cordoba PA [address] [place] [address] PCP - General Family Medicine 07/06/20 documented as of this encounter
--- OUTSIDE RECORDS SUMMARY | 2024-10-25 13:26 | XMS_ITS | Encounter Summary ---
[place] [address] Care Team Providers Care Otr Tanker Truck Driver Name Role Phone Sonido Cordoba Primary Care Provider +1- [phone] Reason for Referral * Diagnostic Test (Routine) - Closed Specialty Diagnoses / Procedures Referred By Aric madrigal Referred To Contact Radiology Diagnoses Peroneal tendon tear, right, subsequent encounter Procedures MRI Ankle wo Contrast Right Gracy Ellis PA [facility] DR ORTHOPAEDIC [place] [address] [place] [address] Referral ID Status Reason Start Date Expiration Date V isits Requested Visits Authorized [id number] Closed Specialty Service Requested 08/03/2021 01/31/2023 1 1 Reason for Visit * Reason Comments Follow-up s/p 08/12/2020 (Li) Right peroneal brevis tendon debridement/tubularization. PAIN/SWELLING/NUMBNESS IN 3 TOES Encounter Details Date Type Department Care Team (Late st Contact Info) Description 08/03/2021 1:00 PM EDT Office [place] [address] Gracy Ellis PA [facility] [address] ORTHOPAEDIC [place] [address] Peroneal tendon tear, right, subsequent encounter Social [...] NAME: Vianney Cordero AGE: 45 y.o. MR#: [id number] DATE OF VISIT: 08/03/2021 CHIEF COMPLAINT: One [...] low back pain. 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 Her pain is most significant when bearing [...] 11/26/2024 8:45 AM [place] [address] Keri Avila [address] [place] [address] 12/31/2024 10:00 AM EST Office [place] [address] Mercy Amanda MD [facility] [address] [facility] [place] [address] 04/01/2025 2:00 PM EDT Office [place] [address] Erum Szymanski MD [facility] GASTROENTEROLOG[place] [address] documented as of this encounter Results * [...] who have questions please contact the health youth career specialist that requested your imaging first. ? [...] residual findings of plantar fasciitis when compared [id number]. Preliminary report signed by: Henry Wheatley at [...] patients who have questions please contactthe health youth career specialist that requested your imaging first. Electronically signed by: Melanie Jimenes MD, [facility]([phone]), at 08/29/2021 4:49 PM Milly Avila MD IMG MRI ORDERABLES documented in this encounter Visit Diagnoses Diagnosis Peroneal tendon tear, right, subsequent encounter Peroneal tendon tear, right, subsequent encounter documented in this encounter Care Teams Otr Tanker Truck Driver Relationship Specialty Start Date End Date Sonido Cordoba PA [address] [place] [address] PCP - General Family Medicine 07/06/20 documented as of this encounter
--- OUTSIDE RECORDS SUMMARY | 2024-10-25 13:26 | XMS_ITS | Encounter Summary ---
Author Organization [place] [address] Care Team Providers Care Blueprinter Name Role Phone Sonido Cordoba Primary Care Provider +1- [phone] Encounter Details Date Type Department Care Team (Latest Contact Info) Description 12/22/2020 10:00 AM EST [place] [address] Devan uNñez Jr., MD [facility] [place] [address] Nephrolithiasis (Primary Dx) Social History Tobacco Use [...] have also been related to other GI, LOANS OFFICER, musculoskeletal, skeletal, or other etiologies. As it [...] 11/26/2024 8:45 AM [place] [address] Keri Avila [address] [place] [address] 12/31/2024 10:00 AM EST Office [place] [address] [facility] [address] [facility] [address] 04/01/2025 2:00 PM EDT Office [place] [address] [facility] [place] [address] documented as of this encounter Visit Diagnoses Diagnosis Nephrolithiasis- Primary Calculus of kidney documented in this encounter Care Teams Blueprinter Relationship Specialty Start Date End Date Sonido Cordoba PA [address] [place] [address] PCP - General Family Medicine 07/06/20 documented as of this encounter
--- OUTSIDE RECORDS SUMMARY | 2024-10-25 13:26 | XMS_ITS | Encounter Summary ---
Author Organization [facility] [place] [address] Care Team Providers Care Seed Collector Name Role Phone Sonido Cordoba Primary Care Provider +1- [phone] Encounter Details Date Type Department Care Team (Late st Contact Info) Description 06/17/2021 9:30 AM EDT Office [place] [address] Erum Szymanski MD [facility] [place] [address] Belching; Heartburn; Dyspepsia Social History Tobacco Use [...] doing this several times per day o https://www.uofealth.org/conditions-treatments/dnqnrdmqdmkkc-ahptahtif-bs-rick ents ?? If no improvement try FDgard [...] Szymanski MD - 06/17/2021 9:30 AM EDT [facility] Section of Gastroenterology and Hepatology Follow-Up Visit PCP: WANDY Aguilera Referring provider: WANDY Aguilera [address] [place] [address] HPI This is a 45 y.o. female [...] to eating, while working. Work is at [employer]. 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 Peroneal tendon tear, right, subsequent encounter S86.768C Current Outpatient Medications: ??? cyclobenzaprine (Flexeril) 10 [...] 3.66) performed by Erum Szymanski MD at [facility] ??? PRO COLONOSCOPY, BIOPSY N/A 09/04/2019 COLONOSCOPY FLEXIBLE, WITH BX (WRVU 3.66) performed by Steve Ji MD at [facility] ??? PRO COLONOSCOPY, DIAGNOSTIC N/A 09/04/2019 COLONOSCOPY, DIAGNOSTIC performed by Steve Ji MD at [facility] ??? PRO COLONOSCOPY, REMV LESN, SNARE N/A 08/21/2018 COLONOSCOPY, POLYPECTOMY, REMOVAL LESION BY SNARE (WRVU 4.67) performed by Erum Szymanski MD at [facility] ? ? PRO CYSTO W URETEROSCOPY &/OR PYELOSCOPY, DX Right 06/01/2015 CYSTOURETEROSCOPY, DIAGNOSTIC performed by Darius Nuñez Jr., MD at [facility] MA[facility] OR ??? PRO CYSTOSCOPY, INSERT URETERAL STENT Right 06/01/2015 CYSTO, STENT PLACEMENT performed by Darius Nuñez Jr., MD at [facility] MA[facility] OR ??? PRO LAP, ESOPHAGOGAST FUNDOPLASTY N/A 04/05/2015 LAPAROSCOPIC TYESHA FUNDOPLASTY performed by Valentín Moura MD at [facility] MA[facility] OR ??? PRO PERCUT DILATN RENAL TRACT Right 06/01/2015 PERCUTANEOUS INTRO GUIDE WIRE TO ACCESS RENAL PELVIS,AND OR URETER, W\DILATION performed by Darius Nuñez Jr., MD at [facility] MA[facility] OR ??? PRO PERCUT REMV KID STONE, UP TO 2 CM Right 06/01/2015 NEPHROLITHOTOMY, (PCNL) PERCUTANEOUS performed by Darius Nuñez Jr., MD at [facility] MA[facility] OR ??? PRO REPAIR PERONEAL TENDONS Right 08/12/2020 PERONEAL TENDON REPAIR (WRVU 7.35) performed by Mani Jefferson MD at [facility] OSC ??? PRO UPPER GI ENDOSCOPY, BIOPSY N/A 01/27/2015 EGD WITH BIOPSY performed by Brandt Barlow MD at [facility] ??? PRO UPPER GI ENDOSCOPY, BIOPSY N/A 02/28/2016 EGD WITH BIOPSY performed by Brandt Barlow MD at [facility] ??? PRO UPPER GI ENDOSCOPY, BIOPSY N/A 09/04/2016 EGD WITH BIOPSY performed by Brandt Barlow MD at [facility] ??? PRO UPPER GI ENDOSCOPY, BIOPSY N/A 09/24/2017 EGD WITH BIOPSY (WRVU 2.49) performed by Brandt Barlow MD at [facility] ??? PRO UPPER GI ENDOSCOPY, BIOPSY N/A 08/21/2018 EGD WITH BIOPSY (WRVU 2.49) performed by Erum Szymanski MD at [facility] ??? PRO UPPER GI ENDOSCOPY, BIOPSY N/A 09/04/2019 UPPER GASTROINTESTINAL ENDOSCOPY,WITH BIOPSY SINGLE OR MULTIPLE (WRVU 2.49) performed by Steve Ji MD at [facility] ??? PRO UPPER GI ENDOSCOPY, BIOPSY N/A 05/24/2021 EGD WITH BIOPSY (WRVU 2.49) performed by Kathy Canres MD at [facility] ??? PRO UPPER GI ENDOSCOPY, DIAGNOSTIC N/A 09/04/2019 EGD, UPPER GI ENDOSCOPY performed by Steve Ji MD at [facility] ??? TONSILLECTOMY Social History Socioeconomic [...] doing this several times per day o https://www.uofmhealth.org/conditions-treatments/mkyhfmacsxgaa-yihhbpkqo-cy-rick ents ?? If no improvement try FDgard [...] Erum Szymanski MD 06/17/21 Erum Szymanski MD Double Spindle Shaper Operatorhelpdesk manager Section of Gastroenterology and Hepatology [email or web address] (p) documented in this encounter Plan of Treatment Upcoming Encounters Date Type Department Care Team (Late st Contact Info) Description 11/26/2024 8:45 AM EST [place] [address] Keri Avila [address] [place] [address] 12/31/2024 10:00 AM EST Office [place] [address] Mercy Amanda MD [facility] DR SAL [facility] [address] 04/01/2025 2:00 PM EDT Office [place] [address] Erum Szymanski MD [facility] [place] [address] documented as of this encounter Visit Diagnoses Diagnosis Belching Flatulence, eructation, and gas pain Heartburn Dyspepsia Dyspepsia and other specified disorders of function of stomach documented in this encounter Care Teams Seed Collector Relationship Specialty Start Date End Date Sonido Cordoba PA [address] [place] [address] PCP - General Family Medicine 07/06/20 documented as of this encounter
--- OUTSIDE RECORDS SUMMARY | 2024-10-25 13:26 | XMS_ITS | Encounter Summary ---
[place] [address] Care Team Providers Care Ortho Assistant Name Role Phone Sonido Cordoba Primary Care Provider +1- [phone] Encounter Details Date Type Department Care Team (Late st Contact Info) Description 02/16/2022 Telephone Weight and Wellness at [facility] [address] [place] [address] Kezia Preston, RN Social History [...] Weight and Wellness Weight [facility] [address] [place] [address] DENIED: [id number] Case/Reference #: [id number] Additional Information from Insurance: weight loss agents [place] covered by [place] medicaid. documented in this encounter Plan of Treatment Upcoming Encounters Date Type Department Care Team (Late st Contact Info) Description 11/26/2024 8:45 AM EST [place] [address] Keri Avila [address] [place] [address] 12/31/2024 10:00 AM EST Office [place] [address] Mercy Amanda MD [facility] DR SAL [facility] [address] 04/01/2025 2:00 PM EDT Office [place] [address] Erum Szymanski MD [facility] [place] [address] documented as of this encounter Goals Goal [...] a priority: - Eggs - Cheese - [place]orese yogurt / cottage cheese - meat - [...] on filedocumented in this encounter Care Teams Ortho Assistant Relationship Specialty Start Date End Date Sonido Cordoba PA [address] [place] [address] PCP - General Family Medicine 07/06/20 documented as of this encounter
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
--- OUTSIDE RECORDS SUMMARY | 2024-10-25 13:26 | XMS_ITS | Encounter Summary ---
Author Organization [facility] [place] [address] Care Team Providers Care Visual Merchandising Manager Name Role Phone Sonido Cordoba Primary Care Provider +1- [phone] Encounter Details Date Type Department Care Team (Latest Contact Info) Description 11/14/2021 2:00 PM EST TH Visit (TeleHealth) Weight and Wellness at [address] [address] Priti Skinner, RD [facility] [place] [address] Adult BMI 38.0-38.9 kg/sq m Social History [...] past visits. Please reach out with a BuildFax message if you have any questions or [...] was at home at the following address: [place], [place] Weight Today: Yesterday 215 lb. Wt Readings from Last 3 Encounters: 11/14/21 97.5 kg (215 lb) 10/06/21 98.8 kg (217 lb 12.8 oz) 08/03/21 93 kg (205 lb) BMI Readings from Last 3 Encounters: 11/14/21 38.00 kg/m?? 10/06/21 38.49 kg/m?? 08/03/21 35.19 kg/m?? Interview: Thinking about starting medication (discussed ways to connect with Dr. Medina). 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 In March re-applying to would like to work on the [employer]. Might be 7a-3p Her experience of hunger [...] Team: Goals ??? track ORAL such as Mechanologypal or Lose it, or pen and paper. [...] initial visit Thank you Priti Skinner RD [facility] 60 minutes were spent in visit today, including contact with patient, chart review, and documentation documented in this encounter Plan of Treatment Upcoming Encounters Date Type Department Care Team (Late st Contact Info) Description 11/26/2024 8:45 AM EST [place] [address] Keri Avila [address] [place] [address] 12/31/2024 10:00 AM EST Office [place] [address] Mercy Amanda MD [facility] DR [facility] [address] 04/01/2025 2:00 PM EDT Office [place] [address] Erum Szymanski MD [facility] [place] [address] documented as of this encounter Goals Goal Patient Goal Type Associated Problems Recent Progress Patient-Stated? Author continue to track in an oral Lifestyle Asha Chung MD Note: Try goal [...] adult documented in this encounter Care Teams Visual Merchandising Manager Relationship Specialty Start Date End Date Sonido Cordoba PA [address] [place] [address] PCP - General Family Medicine 07/06/20 documented as of this encounter
--- OUTSIDE RECORDS SUMMARY | 2024-10-25 13:26 | XMS_ITS | Encounter Summary ---
Author Organization [facility] [place] [address] Care Team Providers Care Memorandum Statement Clerk Name Role Phone Sonido Cordoba Primary Care Provider +1- [phone] Encounter Details Date Type Department Care Team (Late st Contact Info) Description 05/24/2021 1:08 PM EDT Anesthesia [place] [address] Fernandez Luciano MD [facility] [place] [address] Nichelle Botello CRNA [facility] [place] [address] Anesthesia Record Procedure Summary Procedure Name Responsible [...] 1005; median cubital vein (antecubital fossa), right; aexv-vme-eewktj catheter system; 22 gauge, 1 in length; [...] Procedure Summary Date: 05/24/21 Room / Location: [facility] ENDO 1 / [facility] Anesthesia Start: 1308 Anesthesia Stop: 1335 Procedure: EGD WITH BIOPSY (WRVU 2.49) (N/A Trunk) Diagnosis: (MOYA pH study ON BID PPI with an upper endoscopy for refractory reflux, history of TYESHA, evaluate wrap as well - NEEDS MAC (anesthesia)) Surgeons: Kathy Carnes MD Responsible Provider: Fernandez Luciano MD Anesthesia Type: MAC ASA Status: 2 All Anesthesia Providers: Anesthesiologist: Fernandez Luciano MD SALES REPRESENTATIVE FACILITY SERVICES: Nichelle Guzman CRNA Vitals Value Taken Time BP 132/58 05/24/21 1350 Temp Pulse Resp 18 05/24/21 1340 SpO2 98 % 05/24/21 1354 Pain Level 0 05/24/21 1340 Vitals shown include unvalidated device data. Patient Location: PACU/[facility] Level of Consciousness: Awake and Alert [...] 3.66) performed by Erum Szymanski MD at [facility] ENDOSCOPY ??? PRO COLONOSCOPY, BIOPSY N/A 09/04/2019 COLONOSCOPY FLEXIBLE, WITH BX (WRVU 3.66) performed by Steve Ji MD at [facility] ENDOSCOPY ??? PRO COLONOSCOPY, DIAGNOSTIC N/A 09/04/2019 COLONOSCOPY, DIAGNOSTIC performed by Steve Ji MD at [facility]COPY ??? PRO COLONOSCOPY, REMV LESN, SNARE N/A 08/21/2018 COLONOSCOPY, POLYPECTOMY, REMOVAL LESION BY SNARE (WRVU 4.67) performed by Erum Szymanski MD at [facility] END[facility]COPY ? ? PRO CYSTO W URETEROSCOPY &/OR PYELOSCOPY, DX Right 06/01/2015 CYSTOURETEROSCOPY, DIAGNOSTIC performed by Darius Nuñez Jr., MD at [facility] MAIN OR ??? PRO CYSTOSCOPY, INSERT URETERAL STENT Right 06/01/2015 CYSTO, STENT PLACEMENT performed by Darius Nuñez Jr., MD at [facility] OR ??? PRO LAP, ESOPHAGOGAST FUNDOPLASTY N/A 04/05/2015 LAPAROSCOPIC TYESHA FUNDOPLASTY performed by Valentín Moura MD at [facility] OR ??? PRO PERCUT DILATN RENAL TRACT Right 06/01/2015 PERCUTANEOUS INTRO GUIDE WIRE TO ACCESS RENAL PELVIS,AND OR URETER, W\DILATION performed by Darius Nuñez Jr., MD at [facility] MA[facility] OR ??? PRO PERCUT REMV KID STONE, UP TO 2 CM Right 06/01/2015 NEPHROLITHOTOMY, (PCNL) PERCUTANEOUS performed by Darius Nuñez Jr., MD at [facility] MA[facility] OR ??? PRO REPAIR PERONEAL TENDONS Right 08/12/2020 PERONEAL TENDON REPAIR (WRVU 7.35) performed by Mani Jefferson MD at [facility] OSC ??? PRO UPPER GI ENDOSCOPY, BIOPSY N/A 01/27/2015 EGD WITH BIOPSY performed by Brandt Barlow MD at [facility] ??? PRO UPPER GI ENDOSCOPY, BIOPSY N/A 02/28/2016 EGD WITH BIOPSY performed by Brandt Barlow MD at [facility] ??? PRO UPPER GI ENDOSCOPY, BIOPSY N/A 09/04/2016 EGD WITH BIOPSY performed by Brandt Barlow MD at [facility] ??? PRO UPPER GI ENDOSCOPY, BIOPSY N/A 09/24/2017 EGD WITH BIOPSY (WRVU 2.49) performed by Brandt Barlow MD at [facility] ??? PRO UPPER GI ENDOSCOPY, BIOPSY N/A 08/21/2018 EGD WITH BIOPSY (WRVU 2.49) performed by Erum Szymanski MD at [facility] ??? PRO UPPER GI ENDOSCOPY, BIOPSY N/A 09/04/2019 UPPER GASTROINTESTINAL ENDOSCOPY,WITH BIOPSY SINGLE OR MULTIPLE (WRVU 2.49) performed by Steve Ji MD at [facility] ??? PRO UPPER GI ENDOSCOPY, DIAGNOSTIC N/A 09/04/2019 EGD, UPPER GI ENDOSCOPY performed by Steve Ji MD at [facility] ??? TONSILLECTOMY Social History Tobacco [...] with patient. Plan discussed with attending and SALES REPRESENTATIVE FACILITY SERVICES. Anesthesia Screening documented in this encounter Plan of Treatment Upcoming Encounters Date Type Department Care Team (Late st Contact Info) Description 11/26/2024 8:45 AM EST [place] [address] Keri Avila [address] [place] [address] 12/31/2024 10:00 AM EST Office [place] [address] Mercy Amanda MD [facility] DR [facility] [place], [place] [phone] 04/01/2025 2:00 PM EDT Office [place] [address] Erum Szymanski MD [facility] [place] [address] documented as of this encounter Visit Diagnoses [...] (Diprivan) infusion Intravenous, CONTINUOUS PRN, Starting on Sun05/24/21 at 1311, Until Sun05/24/21 at 1335, Anesthesia Intra-op, Routine New Bag 05/24/2021 1:11 PM EDT 250 mcg/kg/min 135 mL/hr documented in this encounter Care Teams Memorandum Statement Clerk Relationship Specialty Start Date End Date Sonido Cordoba PA [address] [place] [address] PCP - General Family Medicine 07/06/20 documented as of this encounter
--- OUTSIDE RECORDS SUMMARY | 2024-10-25 13:26 | XMS_ITS | Encounter Summary ---
Author Organization [place] [address] Care Team Providers Care Bag Grader Name Role Phone Sonido Cordoba Primary Care Provider +1- [phone] Encounter Details Date Type Department Care Team (Latest Contact Info) Description 05/24/2021 11:41 AM EDT - 05/24/2021 2:24 PM EDT Hospital Encounter [place] [address] Kathy Carnes MD [facility] [place] [address] Discharge Disposition: Home Social History Tobacco Use [...] the day after the procedure, use an worm-haq-wqthrpu spray to numb your throat. Sucking on [...] occurs, please contact your Doctor. Please call [phone] before 8pm Mon-Fri with problems, questions or concerns. If you call after 8pm or on weekends, call the Hospital at [phone] and ask to speak to the Harvester Operator physician liaison and the mine motor operator will contact that person for you. When should you call for help? Call [phone] anytime you think you may need emergency [...] any problems. Where can you learn more? [facility] View your After Visit Summary and more online at [email or web address] If you would like to provide feedback [...] cost to you. Content Version: 12.2 ?? 2099-2491 [employer]. Care instructions adapted under license by [facility]. If you have questions about a medical condition or this instruction, always ask your healthcare professional. [employer] disclaims any warranty or liability for your [...] anesthesia Kathy Carnes MD Gastroenterology attending Pager [phone] documented in this encounter Plan of Treatment Upcoming Encounters Date Type Department Care Team (Late st Contact Info) Description 11/26/2024 8:45 AM EST [place] [phone] Keri Avila [address] [place] [address] 12/31/2024 10:00 AM EST Office Visit Weight Center at [facility] [address] Mercy Amanda MD [facility] DR [facility] [address] 04/01/2025 2:00 PM EDT Office [place] [address] Erum Szymanski MD [facility] [place] [address] documented as of this encounter Procedures Procedure Name Priority Date/Time Associated Diagnosis Comments SURGICAL PATHOLOGY REPORT Routine 05/24/2021 1:26 PM EDT SPECIMEN TO PATHOLOGY Routine 05/24/2021 1:26 PM EDT SPECIMEN TO PATHOLOGY Routine 05/24/2021 1:26 PM EDT SPECIMEN TO PATHOLOGY Routine 05/24/2021 1:26 PM EDT SPECIMEN TO PATHOLOGY Routine 05/24/2021 1:26 PM EDT Upper Gi Endoscopy, Biopsy ([id number]) 05/24/2021 1:07 PM EDT MOYA pH study ON BID PPI with an upper endoscopy for refractory reflux, history of TYESHA, evaluate wrap as well - NEEDS MAC (anesthesia) UPPER GI ENDOSCOPY Routine 05/24/2021 12 :40 PM EDT documented in this encounter Results * Surgical Pathology Report (05/24/2021 1:26 PM EDT) Final Diagnosis [id number] ? Location: 4T; EA06; A The signing [...] MD Verified: ??05/30/2021 11:28 ??Pathologist Performed at: ??-[facility] Dept. of Pathology, [place], [place] SPECIMEN(S) SUBMITTED A - esophagus at [...] labeled D1. ??MLL 05/30/2021 11:28 AM EDT [facility] GI Biopsy 05/24/2021 1:26 PM EDT 05/24/2021 1:26 PM EDT GI Biopsy 05/24/2021 1:26 PM EDT 05/24/2021 1:26 PM EDT GI Biopsy 05/24/2021 1:26 PM EDT 05/24/2021 1:26 PM EDT GI Biopsy 05/24/2021 1:26 PM EDT 05/24/2021 1:26 PM EDT Kathy Carnes MD PATHOLOGY/CYTOLOG Y ORDERABLES Performing Organization Address City/[facility]/ZIP Co de Phone Number [facility] [place] [address] * Specimen to Pathology (05/24/2021 1:26 PM EDT) AP Specimen 05/24/2021 1:26 PM EDT 05/24/2021 1:26 PM EDT Narrative [facility] - 05/24/2021 1:26 PM EDT Specimen requisition ordered. ??Separate Pathology report to follow Kathy Carnes MD PATHOLOGY/CYTOLOG Y ORDERABLES Performing Organization Address City/[facility]/ZIP Co de [place] [address] * Specimen to Pathology (05/24/2021 1:26 PM EDT) AP Specimen 05/24/2021 1:26 PM EDT 05/24/2021 1:26 PM EDT Narrative [facility] - 05/24/2021 1:26 PM EDT Specimen requisition ordered. ??Separate Pathology report to follow Kathy Carnes MD PATHOLOGY/[place] [address] * Specimen to Pathology (05/24/2021 1:26 PM EDT) AP Specimen 05/24/2021 1:26 PM EDT 05/24/2021 1:26 PM EDT Narrative [facility] - 05/24/2021 1:26 PM EDT Specimen requisition ordered. ??Separate Pathology report to follow Kathy Carnes MD PATHOLOGY/[place] [address] * Specimen to Pathology (05/24/2021 1:26 PM EDT) AP Specimen 05/24/2021 1:26 PM EDT 05/24/2021 1:26 PM EDT Narrative [facility] - 05/24/2021 1:26 PM EDT Specimen requisition ordered. ??Separate Pathology report to follow Kathy Carnes MD PATHOLOGY/[place] [address] * UPPER GI ENDOSCOPY (05/24/2021 12:40 PM EDT) UPPER GI ENDOSCOPY [facility] ___ Procedure Date: 05/24/2021 12:40 PM ? Patient Name: Vianney Cordero ? Date of : 1975 ? Age: 45 ? Order #: [id number] ? Instrument Name: [id number] ? ___ Procedure: ? Upper GI endoscopy [...] Nichelle Guzman CRNA)1335 (Stopped - Provider: Fernandez Lucinao MD) documented in this encounter Care Teams Bag Grader Relationship Specialty Start Date End Date Sonido Cordoba PA [address] [place] [address] PCP - General Family Medicine 07/06/20 documented as of this encounter
--- OUTSIDE RECORDS SUMMARY | 2024-10-25 13:26 | XMS_ITS | Encounter Summary ---
[place] [address] Care Team Providers Care Pattern Clerk Name Role Phone Sonido Cordoba Primary Care Provider +1- [phone] Encounter Details Date Type Department Care Team (Late st Contact Info) Description 01/09/2022 External Results Weight and Wellness at [address] [phone] Kezia Preston, RN Social History Tobacco Use [...] 11/26/2024 8:45 AM EST [place] [address] Keri Avlia [address] [place] [address] 12/31/2024 10:00 AM EST Office [place] [address] Mercy Amanda MD [facility] DR [facility] [address] 04/01/2025 2:00 PM EDT Office [place] [address] Erum Szymanski MD [facility] [place] [address] documented as of this encounter Goals Goal Patient Goal Type Associated Problems Recent Progress Patient-Stated? Author continue to track in an miak Lifestyle Asha Chung MD Note: Try goal [...] a priority: - Eggs - Cheese - Indonesian yogurt / cottage cheese - meat - [...] Procedure Name Priority Date/Time Associated Diagnosis Comments [facility] EXTERNAL RESULT PANEL Routine 10/21/2021 documented in this encounter Results * (ABNORMAL) [facility] External Results (10/21/2021) Cholesterol, Total 195 Triglyceride 64 HDL Cholesterol 48 LDL Cholesterol 135(H) Hemoglobin A1c 5.4 Glucose Fasting 91 Insulin 26.4 10/21/2021 Historical Provider POINT OF CARE SHAGGY T ORDERABLES documented in this encounter Visit Diagnoses Not on filedocumented in this encounter Care Teams Pattern Clerk Relationship Specialty Start Date End Date Sonido Cordoba PA [address] [place] [address] PCP - General Family Medicine 07/06/20 documented as of this encounter
--- OUTSIDE RECORDS SUMMARY | 2024-10-25 13:26 | XMS_ITS | Encounter Summary ---
Author Organization [facility] [place] [address] Care Team Providers Care Yard Supervisor Cotton Gin Name Role Phone Sonido Cordoba Primary Care Provider +1- [phone] Encounter Details Date Type Department Care Team (Late st Contact Info) Description 05/24/2021 1:00 PM EDT - 05/24/2021 1:30 PM EDT [place] [address] Kathy Carnes MD [facility] DR [place] [address] EGD WITH BIOPSY (WRVU 2.39) Social History [...] the day after the procedure, use an djqj-bto-mslxpav spray to numb your throat. Sucking on [...] occurs, please contact your Doctor. Please call [phone] before 8pm Mon-Fri with problems, questions or concerns. If you call after 8pm or on weekends, call the Hospital at [phone] and ask to speak to the Automatic Grinding Machine Operator senior contract specialist and the lumber carrier operator will contact that person for you. When should you call for help? Call [phone] anytime you think you may need emergency [...] any problems. Where can you learn more? [facility] View your After Visit Summary and more online at [email or web address] If you would like to provide feedback [...] cost to you. Content Version: 12.2 ?? 1170-1334 [employer]. Care instructions adapted under license by [facility]. If you have questions about a medical condition or this instruction, always ask your healthcare professional. [employer] disclaims any warranty or liability for your [...] anesthesia Kathy Carnes MD Gastroenterology attending Pager [phone] documented in this encounter Plan of Treatment Upcoming Encounters Date Type Department Care Team (Late st Contact Info) Description 11/26/2024 8:45 AM EST [place] [phone] Keri Avila [address] [place] [address] 12/31/2024 10:00 AM EST Office [place] [address] Mercy Amanda MD [facility] DR [facility] [address] 04/01/2025 2:00 PM EDT Office [place] [address] Erum Szymanski MD [facility] DR [place] [address] documented as of this encounter Procedures Procedure Name Priority Date/Time Associated Diagnosis Comments SURGICAL PATHOLOGY REPORT Routine 05/24/2021 1:26 PM EDT SPECIMEN TO PATHOLOGY Routine 05/24/2021 1:26 PM EDT SPECIMEN TO PATHOLOGY Routine 05/24/2021 1:26 PM EDT SPECIMEN TO PATHOLOGY Routine 05/24/2021 1:26 PM EDT SPECIMEN TO PATHOLOGY Routine 05/24/2021 1:26 PM EDT Upper Gi Endoscopy, Biopsy ([id number]) 05/24/2021 1:07 PM EDT MOYA pH study ON BID PPI with an upper endoscopy for refractory reflux, history of TYESHA, evaluate wrap as well - NEEDS MAC (anesthesia) UPPER GI ENDOSCOPY Routine 05/24/2021 12 :40 PM EDT documented in this encounter Results * Surgical Pathology Report (05/24/2021 1:26 PM EDT) Final Diagnosis [id number] ? Location: 4T; EA06; A The signing [...] MD Verified: ??05/30/2021 11:28 ??Pathologist Performed at: ??-[facility] Dept. [place]ology, [place], [place] SPECIMEN(S) SUBMITTED A - esophagus at [...] labeled D1. ??MLL 05/30/2021 11:[address] [facility] GI Biopsy 05/24/2021 1:26 PM EDT 05/24/2021 1:26 PM EDT GI Biopsy 05/24/2021 1:26 PM EDT 05/24/2021 1:26 PM EDT GI Biopsy 05/24/2021 1:26 PM EDT 05/24/2021 1:26 PM EDT GI Biopsy 05/24/2021 1:26 PM EDT 05/24/2021 1:26 PM EDT Kathy Carnes MD PATHOLOGY/CYTOLOG Y ORDERABLES Performing Organization Address City/[facility]/ZIP Co de Phone Number [facility] [place] [address] * Specimen to Pathology (05/24/2021 1:26 PM EDT) AP Specimen 05/24/2021 1:26 PM EDT 05/24/2021 1:[address] [facility] - 05/24/2021 1:26 PM EDT Specimen requisition ordered. ??Separate Pathology report to follow Kathy Carnes MD PATHOLOGY/CYTOLOG Y ORDERABLES Performing Organization Address City/[facility]/[place] [address] * Specimen to Pathology (05/24/2021 1:26 PM EDT) AP Specimen 05/24/2021 1:26 PM EDT 05/24/2021 1:[address] [facility] - 05/24/2021 1:26 PM EDT Specimen requisition ordered. ??Separate Pathology report to follow Kathy Carnes MD PATHOLOGY/[place] [address] * Specimen to Pathology (05/24/2021 1:26 PM EDT) AP Specimen 05/24/2021 1:26 PM EDT 05/24/2021 1:[address] [facility] - 05/24/2021 1:26 PM EDT Specimen requisition ordered. ??Separate Pathology report to follow Kathy Carnes MD PATHOLOGY/[place] [address] * Specimen to Pathology (05/24/2021 1:26 PM EDT) AP Specimen 05/24/2021 1:26 PM EDT 05/24/2021 1:[address] [facility] - 05/24/2021 1:26 PM EDT Specimen requisition ordered. ??Separate Pathology report to follow Kathy Carnes MD PATHOLOGY/[place] [address] * UPPER GI ENDOSCOPY (05/24/2021 12:40 PM EDT) UPPER GI ENDOSCOPY [facility] Endoscopy ___ Procedure Date: 05/24/2021 12:40 PM ? Patient Name: Vianney Cordero ? Date of : 1975 ? Age: 45 ? Order #: [id number] ? Instrument Name: [id number] ? ___ Procedure: ? Upper GI endoscopy [...] Starting on e 05/24/21 at 1230, Until Sun05/24/21 at 1410, Endoscopy (Day of Procedure) Restarted 05/24/2021 1:26 PM EDT New Bag 05/24/2021 12:34 PM EDT 100 mL/hr 100 mL/hr documented in this encounter Active and Recently Administered Medications Times are shown in EDT. Continuous Medication Order 05/22/2021 05/23/2021 05/24/2021 lactated ringers infusion (CANCELED) 100 mL/hr, Intravenous, CONTINUOUS, Starting on e 05/24/21 at 1230, Until Sun05/24/21 at 1410, Endoscopy (Day of Procedure) 1234 (New Bag - Prov ider: Lilia Moreno, RN)1325 (Paused - Provider: Nichelle Guzman CRNA - Comment: Switch to gravity)1326 (Restarted - Provider: Nichelle Guzman CRNA)1335 (Stopped - Provider: Fernandez Luciano MD) documented in this encounter Care Teams Yard Supervisor Cotton Gin Relationship Specialty Start Date End Date Sonido Cordoba PA [address] [place] [address] PCP - General Family Medicine 07/06/20 documented as of this encounter
--- OUTSIDE RECORDS SUMMARY | 2024-10-25 13:26 | XMS_ITS | Encounter Summary ---
[place] [address] Care Team Providers Care Domestic Travel Consultant Name Role Phone Sonido Cordoba Primary Care Provider +1- [phone] Encounter Details Date Type Department Care Team (Late st Contact Info) Description 05/24/2021 1:00 PM EDT Procedure visit Gastroenterology at [place], [place] [phone] Heartburn Social History Tobacco Use Types Packs/Day [...] as of this encounter Progress Notes * Erik Asencio, ANA PAULA - 05/24/2021 1:00 PM [...] ([place]ham) procedure report Patient: Vianney Cordero Address: [address] [place] [id number] : 1975 Referring provider: Sonido Cordoba Date [...] the Maki Consensus. Gut. 2018 May; 67(7): 7251-9885. 2) Validation of the Maki classification for GORD diagnosis: acid exposure time assessed by prolonged wireless pH monitoring in healthy controls and patients with erosive oesophagitis. Gut. 2020. doi10.1136/vbdklo-7828-870936. Doroteo Allred MD Section of Gastroenterology and Hepatology [facility] [place] [address] V: [phone] F: [phone] CC/ETC: WANDY Agu[place]era [address] [place] [address] documented in this encounter Plan of Treatment Upcoming Encounters Date Type Department Care Team (Late st Contact Info) Description 11/26/2024 8:45 AM EST Appointment [place] [address] Keri Avila [address] [place] [address] 12/31/2024 10:00 AM EST Office [place] [phone] Mercy Amanda MD [facility] DR [facility] [place] [address] 04/01/2025 2:00 PM EDT Office Visit [place] [phone] Erum Szymanski MD [facility] [place] [address] documented as of this encounter Visit Diagnoses Diagnosis Heartburn documented in this encounter Care Teams Domestic Travel Consultant Relationship Specialty Start Date End Date Sonido Cordoba PA [address] [place] [address] PCP - General Family Medicine 07/06/20 documented as of this encounter
--- OUTSIDE RECORDS SUMMARY | 2024-10-25 13:26 | XMS_ITS | Encounter Summary ---
Author Organization [facility] [place] [address] Care Team Providers Care Oven Heater Name Role Phone Sonido Cordoba Primary Care Provider +1- [phone] Encounter Details Date Type Department Care Team (Latest Contact Info) Description 01/03/2021 8:30 AM EST TH Visit (TeleHealth) [place] [phone] Gracy Ellis PA [facility] DR [place] [address] Peroneal tendon tear, right, subsequent encounter Social [...] NAME: Vianney Cordero AGE: 45 y.o. MR#: [id number] DATE OF VISIT: 01/03/2021 CHIEF COMPLAINT: 5 [...] a stretching when inverting. 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 [...] foot dependent. 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 [...] 11/26/2024 8:45 AM EST App[place] [address] Keri Avila [address] [place] [address] 12/31/2024 10:00 AM EST Office Visit Weight Center at [place] [phone] Mercy Amanda MD [facility] DR [facility] [address] 04/01/2025 2:00 PM EDT Office [place] [address] Erum Szymanski MD [facility] [place] [address] documented as of this encounter Visit Diagnoses Diagnosis Peroneal tendon tear, right, subsequent encounter documented in this encounter Care Teams Oven Heater Relationship Specialty Start Date End Date Sonido Cordoba PA [address] [place] [address] PCP - General Family Medicine 07/06/20 documented as of this encounter
--- OUTSIDE RECORDS SUMMARY | 2024-10-25 13:26 | XMS_ITS | Encounter Summary ---
[place] [address] Care Team Providers Care Ware Cleaner Name Role Phone Sonido Cordoba Primary Care Provider +1- [phone] Reason for Visit * Reason Onset Date Comments Appointment 10/19/2021 Encounter Details Date Type Department Care Team (Late st Contact Info) Description 10/19/2021 Telephone Weight and Wellness at [facility] [address] [place] [address] Rosemarie Shoemaker Appointment Social History [...] about 4 weeks (around 11/10/2021) for Health Avionics Supervisor, 1 mo, Zoom. documented in this encounter Plan of Treatment Upcoming Encounters Date Type Department Care Team (Late st Contact Info) Description 11/26/2024 8:45 AM EST [place] [address] RubyDiamondKeri Sanches [address] [place] [address] 12/31/2024 10:00 AM EST Office [place] [address] Mercy Amanda MD [facility] [address] [place] [address] 04/01/2025 2:00 PM EDT Office [place] [address] Erum Szymanski MD [facility] [address] documented as of this encounter Goals Goal [...] (would rather have you choose regular bread/ chinese muffin, etc. - whole wheat if possible- [...] on filedocumented in this encounter Care Teams Ware Cleaner Relationship Specialty Start Date End Date Sonido Cordoba PA [address] [place] [address] PCP - General Family Medicine 07/06/20 documented as of this encounter
--- OUTSIDE RECORDS SUMMARY | 2024-10-25 13:26 | XMS_ITS | Encounter Summary ---
[place] [address] Care Team Providers Care Health And Wellness Advisor Name Role Phone Sonido Cordoba Primary Care Provider +1- [phone] Encounter Details Date Type Department Care Team (Late st Contact Info) Description 01/26/2022 Interpretation Only [facility] [address] [place] [address] Guanako Barclay, DO [address] [place] [address] Social History Tobacco Use Types [...] 11/26/2024 8:45 AM EST [place] [address] Keri Avila [address] [place] [address] 12/31/2024 10:00 AM EST Office Visit Weight Center at [place] [phone] Mercy Amanda MD [facility] [address] [facility] [address] 04/01/2025 2:00 PM EDT Office [place] [address] Erum Szymanski MD [facility] [place] [address] documented as of this encounter Goals Goal [...] (would rather have you choose regular bread/ puerto rican muffin, etc. - whole wheat if [...] O RAD ADMITDTTM RAD PT RAD INFO [id number]^D ANIELSON^CHR ISTOPHER RAD EXAM DESC UABDLIM^US ABDOMEN [...] who have questions please contact the health animal care provider that requested your imaging first. ? Narrative 01/26/2022 2:23 PM EDT EXAMINATION: US [...] right kidney is unremarkable without hydronephrosis and [id number]. IMPRESSION Unremarkable appearance of the right upper quadrant. No liver, gallbladder or biliary pathology detected. Thank you for letting us participate in the care of this patient. If youare a health care provider and have any questions regarding this report,please contact the number below. For patients who have questions please contactthe health animal care provider that requested your imaging first. Guanako Barclay DO IMG US GEN OR DERABLES documented in this encounter Visit Diagnoses Not on filedocumented in this encounter Care Teams Health And Wellness Advisor Relationship Specialty Start Date End Date Sonido Cordoba PA [address] [place] [address] PCP - General Family Medicine 07/06/20 documented as of this encounter
--- OUTSIDE RECORDS SUMMARY | 2024-10-25 13:26 | XMS_ITS | Encounter Summary ---
Author Organization [facility] [place] [address] Care Team Providers Care Networker Name Role Phone Sonido Cordoba Primary Care Provider +1- [phone] Reason for Visit * Reason Comments Follow-up Weight managment Encounter Details Date Type Department Care Team (Late st Contact Info) Description 02/10/2022 10:00 AM EDT Office Visit Weight and Wellness at [address] [phone] Mercy Amanda MD [facility] DR [facility] MEDICINE [place], [place] [address] Class 3 severe obesity with serious comorbidity [...] * Patient Instructions* Mercy Amanda MD - 02/10/2022 11:08 AM EDT So [...] the same way that they help diabetics. https://www.diabeteseducator.org/practice/practice-tools/hehoovlu-qarfqzbyok-gpa ls/obu-5-brrunxeox https://www.diabeteseducator.org/docs/default-source/practice/educator-tools/glp -1-medications/understanding_glp_final.pdf?sfvrsn=2 The following informational sheet will provide instruction for how to store and inject the injectable forms of incretins. https://www.diabeteseducator.org/practice/practice-tools/qzpdxorb-azlmukgnoe-nrl ls/wpy-8-ahtflrbnb documented in this encounter Progress Notes * Mercy Amanda MD - 02/10/2022 10:00 AM EDTSummary: 3rd visit with [facility] Patient Name: [...] and comorbidities GERD/Barretts. This is Visit #3 [facility] visit for this 46 y.o. patient. 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 Happy and safe for now in life in general (ex in fpc, attempting to get out early for medical [...] Discussion 02/10/22: Pathways, Medication options with r/b [facility] PATHWAY - ADULT 10/06/2021 Obesity Medicine Activate [...] 109 01/19/2022 Lab Results Component Value Date [id number] 01/19/2022 25-OH Vit D Total (no [...] Co-morbidities addressed: GERD Referrals pending: Dietitian, Health Ethylene Plant Helper AOM: Factors contributing to decision making: [...] rob 7 min chart review 30 min [id number] Visit time 5 min Documentation time I [...] 11/26/2024 8:45 AM EST [place] [address] RubyDiamondKeri Sanches [address] [place] [address] 12/31/2024 10:00 AM EST Office [place] [address] Mercy Amanda MD [facility] DR [facility] [address] 04/01/2025 2:00 PM EDT Office [place] [address] Erum Szymanski MD [facility] [place] [address] documented as of this encounter [...] EDT) Insulin 13.6 2.6 - 24.9 mcunit/mL [facility] Blood 02/10/2022 11:2 6 AM EDT 02/10/2022 6:09 PM EDT Narrative Resulting Agency Comment Spec In Lab Mercy Amanda MD CHEMISTRY GLORIA ALURA [facility] [place] [address] * Hemoglobin A1c (02/10/2022 11:26 AM EDT) Hemoglobin A1c 4.9 4.3 - 5.6 % [facility] Comment: Reference Range: 4.3 [...] 1, S67-74 Estimated Average Glucose 95 mg/dL [facility] Comment: eAG equivalents for [...] into estimated average glucose values. ??Diabetes Care 2008:31(8):6253-1284. Blood 02/10/2022 11:2 6 AM EDT 02/10/2022 2:30 PM EDT Narrative Resulting Agency Comment Spec In Lab Mercy Amanda MD CHEMISTRY GLORIA LAURA [facility] [place] [address] documented in this encounter Visit Diagnoses Diagnosis Class 3 severe obesity with serious comorbidity and body mass index (BMI) of 40.0 to 44.9 in adult, unspecified obesity type Insulin resistance Dysmetabolic Syndrome X documented in this encounter Care Teams Networker Relationship Specialty Start Date End Date Soniod Cordoba PA [address] [place] [address] PCP - General Family Medicine 07/06/20 documented as of this encounter
--- OUTSIDE RECORDS SUMMARY | 2024-10-25 13:26 | XMS_ITS | Encounter Summary ---
Author Organization [facility] [place] [address] Care Team Providers Care Structural Biologist Name Role Phone Sonido Cordoba Primary Care Provider +1- [phone] Encounter Details Date Type Department Care Team (Latest Contact Info) Description 12/22/2020 8:59 AM EST - 12/22/2020 11:59 PM [facility] Hospital Encounter [place] [address] Devan Roth Jr., MD [facility] [place] [address] Nephrolithiasis Discharge Disposition: Home Social History Tobacco [...] 11/26/2024 8:45 AM EST Appointment [place] [address] Keri Avila [address] [place] [address] 12/31/2024 10:00 AM EST Office Visit [place] [address] Mercy Amanda MD [facility] [address] [facility] [address] 04/01/2025 2:00 PM EDT Office Visit G[place] [address] Erum Szymanski MD [facility] [place] [address] documented as of this encounter Procedures Procedure [...] please contact the number below. ?Aliya Nguyen, Business Line Manager Electronically Signed Final Report ?? 12/22/2020 10:42 am Narrative 12/22/2020 10:43 AM EST Renal ? (Signed Final 12/22/2020 10:42 am) PATIENT INFO: ID #: ? [id number] ?: ??[birth year] (45 yrs)(F) Name: ? VIANNEY NEVES ?Visit Date: 12/22/2020 09:02 am ? GABRIELLE PERFORMED BY: Performed By: ? Marga Enciso RDMS Attending: ?Patrick RIVASAliya. Referred By: ?DEVAN ROTH JR Location: ? [place] SERVICE(S) PROVIDED: URETRO - Retroperitoneal Complete - [id number] ? [id number] INDICATIONS: stones COMPARISON: Ultrasound: 09/11/17. RIGHT KIDNEY: [...] 12/22/2020 10:42 am) PATIENT INFO: ID #: [id number] : [birth year] (45 yrs)(F) Name: VIANNEY NEVES Visit Date: 12/22/2020 09:02 am ANTHONY PERFORMED BY: Performed By: Marga Enciso RDMS Attending: Aliya Nguyen MD Referred By: DEVAN ROTH Location: [place] SERVICE(S) PROVIDED: URETRO - Retroperitoneal Complete - [id number] INDICATIONS: stones COMPARISON: Ultrasound: 09/11/17. RIGHT KIDNEY: [...] please contact the number below. Aliya Nguyen, Business Line Manager Electronically Signed Final Report 12/22/2020 10:42 am Devan Roth Jr., MD IMG US GEN ORDERAB LES documented in this encounter Visit Diagnoses Diagnosis Nephrolithiasis Calculus of kidney documented in this encounter Care Teams Structural Biologist Relationship Specialty Start Date End Date Sonido Cordoba PA [address] [place] [address] PCP - General Family Medicine 07/06/20 documented as of this encounter
--- OUTSIDE RECORDS SUMMARY | 2024-10-25 13:26 | XMS_ITS | Encounter Summary ---
[place] [address] Care Team Providers Care Heavy Threader Name Role Phone Sonido Cordoba Primary Care Provider +1- [phone] Reason for Visit * Reason Onset Date Comments Appointment 07/19/2021 Encounter Details Date Type Department Care Team (Late st Contact Info) Description 07/19/2021 [place] [address] Gracy Ellis PA [facility] [place] [address] Appointment Social History Tobacco Use Types Packs/Day [...] PM EDT Scheduled. * Telephone Encounter - Sabiha Serrano - 07/19/2021 2:39 PM EDT L/M #1 TO SCHEDULE F/U W/ MANDY DARI FOR: XR s/p 08/12/2020 (Li) Right peroneal brevis tendon debridement/tubularization. PAIN/SWELLING/NUMBNESS IN 3 TOES documented in this encounter Plan of Treatment Upcoming Encounters Date Type Department Care Team (Late st Contact Info) Description 11/26/2024 8:45 AM EST [place] [address] Keri Avila [address] [employer] [address] 12/31/2024 10:00 AM EST Office [place] [address] Mercy Amanda MD [facility] [address] [facility] [address] 04/01/2025 2:00 PM EDT Office [place] [address] Erum Szymanski MD [facility] [place] [address] documented as of this encounter Visit Diagnoses Not on filedocumented in this encounter Care Teams Heavy Threader Relationship Specialty Start Date End Date Sonido Cordoba PA [address] [place] [address] PCP - General Family Medicine 07/06/20 documented as of this encounter
--- OUTSIDE RECORDS SUMMARY | 2024-10-25 13:26 | XMS_ITS | Encounter Summary ---
Author Organization [place] [address] Care Team Providers Care License Registration Examiner Name Role Phone Sonido Cordoba Primary Care Provider +1- [phone] Encounter Details Date Type Department Care Team (Late st Contact Info) Description 02/18/2021 Orders Only [place] [address] Chinyere Galindo APRN [facility] [place] [address] Social History Tobacco Use Types Packs/Day Years [...] 11/26/2024 8:45 AM EST [place] [address] Keri Avila [address] [place] [address] 12/31/2024 10:00 AM EST Office [place] [address] Mercy Amanda MD [facility] DR [facility] [address] 04/01/2025 2:00 PM EDT Office [place] [address] Erum Szymanski MD [facility] [place] [address] documented as of this encounter Procedures Procedure Name Priority Date/Time Associated Diagnosis Comments HEPATITIS B SURFACE ANTIBODY Routine 02/18/2021 8:47 AM EDT documented in this encounter Results * Hepatitis B Surface Antibody (02/18/2021 8:47 AM EDT) Hepatitis B Surface Antibody, Quantitative 546.8 IU/L [facility] Comment: HepB Surface Ab Quant: Unvaccinated: < 8.5 IU/L Vaccinated: > 11.5 IU/L Hepatitis B Surface Antibody Positive [facility] Comment: Patient is considered to be immune to HBV infection. Expected Results: Vaccinated: Positive Unvaccinated: Negative Blood specimen (specimen) Venous Draw / Unknown 02/18/2021 8:47 AM EDT 02/18/2021 9:02 AM EDT Narrative Resulting Agency Comment Spec In Lab Chinyere Galindo APRN CHEMISTRY ORDERABLES [facility] [place] [address] documented in this encounter Visit Diagnoses Not on filedocumented in this encounter Care Teams License Registration Examiner Relationship Specialty Start Date End Date Sonido Cordoba PA [address] [place] [address] PCP - General Family Medicine 07/06/20 documented as of this encounter
--- OUTSIDE RECORDS SUMMARY | 2024-10-25 13:26 | XMS_ITS | Encounter Summary ---
Author [place] [address] Care Team Providers Care Supervisor Asbestos Removal Name Role Phone Sonido Cordoba Primary Care Provider +1- [phone] Encounter Details Date Type Department Care Team (Latest Contact Info) Description 02/10/2022 11:35 AM EDT Laboratory Appointment Lab [address] [place] [address] Class 3 severe obesity with [...] 11/26/2024 8:45 AM EST Appointment [place] [address] Keri Avila [address] [place] [address] 12/31/2024 10:00 AM EST Office [place] [address] Mercy Amanda MD [facility] [address] [facility] [place] [address] 04/01/2025 2:00 PM EDT Office [place] [address] Erum Szymanski MD [facility] [place] [address] documented as of this encounter Goals Goal [...] Mellitus, Diabetes Care 2013; 36: Suppl. 1, Y07-89 Estimated Average Glucose 95 mg/dL [facility] [...] into estimated average glucose values. ??Diabetes Care 2008:31(8):0033-2900. Blood 02/10/2022 11:2 6 AM EDT 02/10/2022 2:30 PM EDT Narrative Resulting Agency Comment Spec In Lab Mercy Amanda MD CHEMISTRY GLORIA LAURA Performing Organization Address [facility] Co de Phone Number [facility] [place] [address] * Insulin, total (02/10/2022 11:26 AM EDT) Insulin 13.6 2.6 - 24.9 mcunit/mL [facility] Blood 02/10/2022 11:2 6 AM EDT 02/10/2022 6:09 PM EDT Narrative Resulting Agency Comment Spec In Lab Mercy Amanda MD CHEMISTRY GLORIA LAURA Performing Organization Address [facility] de Phone Number [facility] [place] [address] * CMP w/fasting Glucose (02/10/2022 11:26 AM EDT) Glucose Fasting 94 65 - 99 mg/dL [facility] Comment: ?Fasting* Glucose Interpretive Criteria Normal [...] of Diabetes Mellitus, Position Statement from the [place] [employer]. ??Diabetes Care, Volume 33, Supplement 1, Nov 2009 Blood Urea Nitrogen 12 8 - 18 mg/dL [facility] Creatinine 0.75 0.70 - 1.20 mg/dL [facility] Sodium 138 135 - 145 mmol/L [facility] Potassium 4.0 3.5 - 5.0 mmol/L [facility] Comment: Please note: ??Patients with WBC >100,000 may have falsely elevated Potassium levels. ??For accurate Potassium quantification in these patients send serum separator tube (gold top) for subsequent determinations. ??Contact the Clinical Chemistry Laboratory if there are any questions. Chloride 105 98 - 107 mmol/L [facility] Carbon Dioxide 24 22 - 31 mmol/L [facility] Anion Gap 9 5 - 15 mmol/L [facility] Calcium 9.2 8.5 - 10.5 mg/dL [facility] Protein, Total 7.3 6.1 - 8.0 g/dL [facility] Albumin 4.3 3.2 - 5.2 g/dL [facility] Aspartate Aminotransferase 15 0 - 30 unit/L [facility] Alanine Aminotransferase 9 0 - 30 unit/L [facility] Alkaline Phosphatase 82 35 - 105 unit/L [facility] Bilirubin, Total 0.4 0.2 - 1.3 mg/dL [facility] Est Glomerular Filtration Rate 96 >=60 mL/min/1. 73 m?? [facility] Comment: This patient? s estimated glomerular [...] MD CHEMISTRY ORDLavelle LAURA Performing Organization Address City/[facility]/ZIP Co de Phone Number [facility] [place] [address] * TSH (02/10/2022 11:26 AM EDT) Thyroid Stimulating Hormone 2.34 0.27 - 4.20 mcIU/mL [facility] Comment: Reference Interval (mcIU/mL): Females: ??First Trimester: 0.23-3.88 ??Second Trimester: 0.22-3.90 ??Third Trimester: 0.44-4.66 Blood 02/10/2022 11:2 6 AM EDT 02/10/2022 2:32 PM EDT Narrative Resulting Agency Comment Spec In Lab Mercy Amanda MD CHEMISTRY GLORIA LAURA Performing Organization Address City/[facility]/ZIP Co de Phone Number [facility] [place] [address] * (ABNORMAL) Vitamin D, 25-Hydroxy (02/10/2022 11:26 AM EDT) Vitamin D Total 25 OH 20(L) 21 - 100 ng/mL [facility] Vit D Interp Deficient [facility] Blood 02/10/2022 11:2 6 AM EDT 02/10/2022 6:09 PM EDT Narrative Resulting Agency Comment Spec In Lab Mercy Amanda MD CHEMISTRY ORDLavelle LAURA [facility] [place] [address] * Vitamin B12 (02/10/2022 11:26 AM EDT) Vitamin B12 542 232 - 1,245 pg/mL [facility] Blood 02/10/2022 11:2 6 AM EDT 02/10/2022 6:09 PM EDT Narrative Resulting Agency Comment Spec In Lab Mercy Amanda MD CHEMISTRY GLORIA LAURA Performing Organization Address City/[facility] Co de Phone Number [facility] [place] [address] * (ABNORMAL) Ferritin (02/10/2022 11:26 AM EDT) Ferritin 161(H) 15 - 150 ng/mL [facility] Comment: Pediatric reference ranges not verified at [facility], interpret with caution. Reference ranges for females greater than 50 years of age approach values for men, i.e., 30-400 ng/mL. Blood 02/10/2022 11:2 6 AM EDT 02/10/2022 6:09 PM EDT Narrative Resulting Agency Comment Spec In Lab Mercy Amanda MD CHEMISTRY GLORIA LAURA Performing Organization Address City/[facility] Co de Phone Number [facility] [place] [address] documented in this encounter Visit Diagnoses Diagnosis Class 3 severe obesity with serious comorbidity and body mass index (BMI) of 40.0 to 44.9 in adult, unspecified obesity type documented in this encounter Care Teams Supervisor Asbestos Removal Relationship Specialty Start Date End Date Sonido Cordoba PA [address] [place] [address] PCP - General Family Medicine 07/06/20 documented as of this encounter
--- OUTSIDE RECORDS SUMMARY | 2024-10-25 13:26 | XMS_ITS | Encounter Summary ---
[place] [address] Care Team Providers Care Spring Assembler Supervisor Name Role Phone Sonido Cordoba Primary Care Provider +1- [phone] Encounter Details Date Type Department Care Team (Late st Contact Info) Description 02/13/2022 Orders Only Weight and Wellness at [place] [address] [place] [address] Mercy Amanda MD [facility] DR SAL [facility] MEDICINE [place], [place] [id number] Vitamin D deficiency Social History Tobacco Use [...] 11/26/2024 8:45 AM EST Appointment [place] [address] Keri Avila [address] [place] [address] 12/31/2024 10:00 AM EST Office Visit [place] [address] Mercy Amanda MD [facility] [address] [place] [address] 04/01/2025 2:00 PM EDT Office Visit [place] [address] Erum Szymanski MD [facility] [place] [address] documented as of this encounter Goals Goal [...] deficiency documented in this encounter Care Teams Spring Assembler Supervisor Relationship Specialty Start Date End Date Sonido Cordoba PA [address] [place] [address] PCP - General Family Medicine 07/06/20 documented as of this encounter
--- OUTSIDE RECORDS SUMMARY | 2024-10-25 13:26 | XMS_ITS | Encounter Summary ---
[place] [address] Care Team Providers Care Bottle House Pumper Name Role Phone Sonido Cordoba Primary Care Provider +1- [phone] Encounter Details Date Type Department Care Team (Late st Contact Info) Description 09/30/2021 Notes Only Weight and Wellness at [facility] [address] [place] [address] Kezia Preston, RN Social History [...] Kezia Preston - 09/30/2021 11:15 AM EST [facility] New Patient Referral Chart Prep Note Vianney Cordero 1975 Referring Provider: Erum Szymanski (Gastro) [x] [facility] referral (Epic) [] External Referral (scanned document) [...] 11/26/2024 8:45 AM EST Appointment Ultrasound at [address] Keri Avila [address] [place] [address] 12/31/2024 10:00 AM EST Office Visit Weight Center at [place] [phone] Mercy Amanda MD [facility] [address] [facility] [address] 04/01/2025 2:00 PM EDT Office [place] [address] Erum Szymanski MD [facility] [place] [address] documented as of this encounter Visit Diagnoses Not on filedocumented in this encounter Care Teams Bottle House Pumper Relationship Specialty Start Date End Date Sonido Cordoba PA [address] [place] [address] PCP - General Family Medicine 07/06/20 documented as of this encounter
--- OUTSIDE RECORDS SUMMARY | 2024-10-25 13:26 | XMS_ITS | Encounter Summary ---
Author Organization Formerly [facility] [place] [address] Care Team Providers Care Cooker Sulfite Name Role Phone Sonido Cordoba Primary Care Provider +1- [phone] Encounter Details Date Type Department Care Team (Late st Contact Info) Description 02/18/2021 Orders [place] [phone] Chinyere Galindo APRN [facility] [place] [address] Social History Tobacco Use Types Packs/Day Years [...] 11/26/2024 8:45 AM [place] [phone] Keri Avila [address] [place] [address] 12/31/2024 10:00 AM EST Office [place] [address] Mercy Amanda MD [facility] [address] [facility] [place] [address] 04/01/2025 2:00 PM EDT Office [place] [phone] Erum Szymanski MD [facility] [place] [address] documented as of this encounter Procedures Procedure Name Priority Date/Time Associated Diagnosis Comments QUANTIFERON-TB GOLD Routine 02/18/2021 8 :47 AM EDT documented in this encounter Results * QuantiFERON-TB Gold (02/18/2021 8:47 AM EDT) Quantiferon Nil 0.060 IU/mL [facility] QFT TB Ag1-Nil 0.010 IU/mL [facility] QFT TB Ag2-Nil 0.000 IU/mL [facility] Quantiferon Mitogen-Nil 7.810 IU/mL [facility] Quantiferon-TB Gold Negative Negative [facility] Quantiferon Tb Interp M. tuberculosis [...] affect immune function, or other immunological factors. [facility] Comment: The performance of the [...] In Lab Chinyere Galindo APRN CHEMISTRY ORDERABLES [facility] [place] [address] documented in this encounter Visit Diagnoses Not on filedocumented in this encounter Care Teams Cooker Sulfite Relationship Specialty Start Date End Date Sonido Cordoba PA [address] [place] [address] PCP - General Family Medicine 07/06/20 documented as of this encounter
--- OUTSIDE RECORDS SUMMARY | 2024-10-25 13:26 | XMS_ITS | Encounter Summary ---
Author Organization Formerly [facility] Address [facility] [place] [address] Care Team Providers Care Shower Doors And Panels Fabricator Name Role Phone Sonido Cordoba Primary Care Provider +1- [phone] Encounter Details Date Type Department Care Team (Latest Contact Info) Description 08/03/2021 11:36 AM EDT - 08/03/2021 11:59 PM EDT Hospital Encounter XRay at [address] [place] [address] Peroneal tendon tear, right, subsequent encounter Discharge [...] 11/26/2024 8:45 AM [place] [address] Keri Avila [address] [place] [address] 12/31/2024 10:00 AM EST Office [place] [phone] Mercy Amanda MD [facility] [address] [facility] [address] 04/01/2025 2:00 PM EDT Office [place] [phone] Erum Szymanski MD [facility] [place] [place] [address] documented as of this encounter Procedures Procedure [...] who have questions please contact the health human services care specialist that requested your imaging first. ? Electronically signed by: Melanie Jimenes MD, [facility] ([phone]), at 08/03/2021 5:30 PM Narrative 08/03/2021 5:30 PM EDT EXAMINATION: XR [...] patients who have questions please contactthe health human services care specialist that requested your imaging first. Electronically signed by: Melanie Jimenes MD, [facility]([phone]), at 08/03/2021 5:30 PM Joe Adam MD IMG DX ORDERABLES documented in this encounter Visit Diagnoses Diagnosis Peroneal tendon tear, right, subsequent encounter documented in this encounter Care Teams Shower Doors And Panels Fabricator Relationship Specialty Start Date End Date Sonido Cordoba PA [address] [place] [address] PCP - General Family Medicine 07/06/20 documented as of this encounter
--- OUTSIDE RECORDS SUMMARY | 2024-10-25 13:26 | XMS_ITS | Encounter Summary ---
Author Organization [facility] [place] [address] Care Team Providers Care Parent Aide Name Role Phone Sonido Cordoba Primary Care Provider +1- [phone] Reason for Referral * Consultation (Routine) - Closed Specialty Diagnoses / Procedures Referred By Conteulalio t Referred To Contact Weight and Wellness Diagnoses Obesity (BMI 30.0-34.9) Erum Szymanski MD [facility] [place] [address] [facility] [address] [place] [address] Referral ID Status Reason Start Date Expiration Date V isits Requested Visits Authorized [id number] Closed Consult, Test & Treat 04/13/2021 04/13/2022 1 1 * Consultation (Routine) - Closed Specialty Diagnoses / Procedures Referred By Conteulalio t Referred To Contact Gastroenterology Diagnoses Gastroesophageal reflux disease with esophagitis, unspecified whether hemorrhage EGD/Branham ON BID PPI with an upper endoscopy for refractory reflux, history of TYESHA, evaluate wrap as well - NEEDS MAC (anesthesia) Procedures BRANHAM MOTILITY PH TEST PRFM EGD/Branham ON BID PPI with an upper endoscopy for refractory reflux, history of TYESHA, evaluate wrap as well - NEEDS MAC (anesthesia) Erum Szymanski MD [facility] [place] [address] [facility] [place] [address] [place] [address] Referral ID Status Reason Start Date Expiration Date V isits Requested Visits Authorized [id number] Closed Consult, Test & Treat 04/13/2021 04/13/2022 1 1 Encounter Details Date Type Department Care Team (Latest Contact Info) Description 04/13/2021 2:00 PM EDT Office [place] [address] Erum Szymanski MD [facility] [place] [address] Gastroesophageal reflux disease with esophagitis, unspecified whether [...] to check your TYESHA wrap and perform BRANHAM acid reflux study while you are taking [...] Szymanski MD - 04/13/2021 2:[address] [facility] Section of Gastroenterology and Hepatology Follow-Up Visit PCP: WADNY Aguilera Referring provider: WANDY Aguilera [address] [place] [address] HPI This is a 45 y.o. female [...] 3.66) performed by Erum Szymanski MD at [facility] ENDOSCOPY ??? PRO COLONOSCOPY, BIOPSY N/A 09/04/2019 COLONOSCOPY FLEXIBLE, WITH BX (WRVU 3.66) performed by Steve Ji MD at [facility] ENDOSCOPY ??? PRO COLONOSCOPY, DIAGNOSTIC N/A 09/04/2019 COLONOSCOPY, DIAGNOSTIC performed by Steve Ji MD at [facility] ENDOSCOPY ??? PRO COLONOSCOPY, REMV LESN, SNARE N/A 08/21/2018 COLONOSCOPY, POLYPECTOMY, REMOVAL LESION BY SNARE (WRVU 4.67) performed by Erum Szymanski MD at [facility] ENDOSCOPY ? ? PRO CYSTO W URETEROSCOPY &/OR PYELOSCOPY, DX Right 06/01/2015 CYSTOURETEROSCOPY, DIAGNOSTIC performed by Darius Nuñez Jr., MD at [facility] OR ??? PRO CYSTOSCOPY, INSERT URETERAL STENT Right 06/01/2015 CYSTO, STENT PLACEMENT performed by Darius Nuñez Jr., MD at [facility] OR ??? PRO LAP, ESOPHAGOGAST FUNDOPLASTY N/A 04/05/2015 LAPAROSCOPIC TYESHA FUNDOPLASTY performed by Valentín Moura MD at [facility] OR ??? PRO PERCUT DILATN RENAL TRACT Right 06/01/2015 PERCUTANEOUS INTRO GUIDE WIRE TO ACCESS RENAL PELVIS,AND OR URETER, W\DILATION performed by Darius Nuñez Jr., MD at [facility] OR ??? PRO PERCUT REMV KID STONE, UP TO 2 CM Right 06/01/2015 NEPHROLITHOTOMY, ([facility]) PERCUTANEOUS performed by Darius Nuñez Jr., MD at [facility] OR ??? PRO REPAIR PERONEAL TENDONS Right 08/12/2020 PERONEAL TENDON REPAIR (WRVU 7.35) performed by Mani Jefferson MD at [facility] OSC ??? PRO UPPER GI ENDOSCOPY, BIOPSY N/A 01/27/2015 EGD WITH BIOPSY performed by Brandt Barlow MD at [facility] ENDOSCOPY ??? PRO UPPER GI ENDOSCOPY, BIOPSY N/A 02/28/2016 EGD WITH BIOPSY performed by Brandt Barlow MD at [facility] ENDOSCOPY ??? PRO UPPER GI ENDOSCOPY, BIOPSY N/A 09/04/2016 EGD WITH BIOPSY performed by Brandt Barlow MD at [facility] ENDOSCOPY ??? PRO UPPER GI ENDOSCOPY, BIOPSY N/A 09/24/2017 EGD WITH BIOPSY (WRVU 2.49) performed by Brandt Barlow MD at [facility] ENDOSCOPY ??? PRO UPPER GI ENDOSCOPY, BIOPSY N/A 08/21/2018 EGD WITH BIOPSY (WRVU 2.49) performed by Erum Szymanski MD at [facility] ENDOSCOPY ??? PRO UPPER GI ENDOSCOPY, BIOPSY N/A 09/04/2019 UPPER GASTROINTESTINAL ENDOSCOPY,WITH BIOPSY SINGLE OR MULTIPLE (WRVU 2.49) performed by Steve Ji MD at [facility] ENDOSCOPY ??? PRO UPPER GI ENDOSCOPY, DIAGNOSTIC N/A 09/04/2019 EGD, UPPER GI ENDOSCOPY performed by Steve Ji MD at [facility] ENDOSCOPY ??? TONSILLECTOMY Social History Socioeconomic [...] is value in doing endoscopy with a BRANHAM on PPI given that acid suppression is so important with her history of Rodgers's esophagus. DDX is acid reflux vs non-acid reflux vs reflux hypersensitivity vs functional heartburn. Discussed BRANHAM testing in detail. Will also get her plugged in to weight and wellness. Plan: ?? EGD with anesthesia to perform BRANHAM pH study ON BID PPI (pantoprazole 40mg [...] and colonoscopy 08/2022 for surveillance ?? If BRANHAM is negative, consider pH impedence testing and/or [...] Erum Szymanski MD 04/13/21 Erum Szymanski MD Chocolate Molderchyron operator Section of Gastroenterology and Hepatology [email or web address] ([email or web address]) documented in this encounter Plan of Treatment Upcoming Encounters Date Type Department Care Team (Late st Contact Info) Description 11/26/2024 8:45 AM EST Appointment Ultrasound at [place] [phone] Keri Avila [address] [place] [address] 12/31/2024 10:00 AM EST Office Visit Weight Center at [place] [phone] Mercy Amanda MD [facility] DR [facility] [address] 04/01/2025 2:00 PM EDT Office [place] [address] Erum Szymanski MD [facility] [place] [address] Scheduled Referrals Name Type Priority Associated Diagnoses [...] unspecified documented in this encounter Care Teams Parent Aide Relationship Specialty Start Date End Date Sonido Cordoba PA [address] [place] [address] PCP - General Family Medicine 07/06/20 documented as of this encounter
--- OUTSIDE RECORDS SUMMARY | 2024-10-25 13:26 | XMS_ITS | Encounter Summary ---
[place] [address] Care Team Providers Care Safety Companion Name Role Phone Sonido Cordoba Primary Care Provider +1- [phone] Encounter Details Date Type Department Care Team (Late st Contact Info) Description 09/30/2021 External Results Weight and Wellness at [address] [phone] Kezia Preston, RN Social History Tobacco Use [...] 11/26/2024 8:45 AM EST [place] [address] Keri Avila [address] [place] [address] 12/31/2024 10:00 AM EST Office [place] [address] Mercy Amanda MD [facility] [address] [facility] [place] [address] 04/01/2025 2:00 PM EDT Office [place] [address] Erum Szymanski MD [facility] [place] [address] documented as of this encounter Procedures Procedure Name Priority Date/Time Associated Diagnosis Comments [facility] EXTERNAL RESULT PANEL Routine 01/21/2021 documented in this encounter Results * (ABNORMAL) [facility] External Results (01/21/2021) Cholesterol, Total 217(ExtH) Triglyceride 113(Exter nal Lab) HDL Cholesterol 44(Clinical Dietitian al Lab) LDL Cholesterol 151(ExtH) Blood Urea Nitrogen 15(Clinical Dietitian al Lab) Creatinine 0.9(Exter nal Lab) Sodium 143(Exter nal Lab) Potassium 4.3(Exter nal Lab) Chloride 107(Exter nal Lab) Carbon Dioxide 25(Clinical Dietitian al Lab) Anion Gap 11(Clinical Dietitian al Lab) Calcium 9.5(Exter nal Lab) Protein, Total 7.6(Exter nal Lab) Albumin 4.1(Exter nal Lab) Aspartate Aminotransferase 14(ExtL) Alanine Aminotransferase 19(Clinical Dietitian al Lab) Alkaline Phosphatase 92(Clinical Dietitian al Lab) Bilirubin, Total 0.4(Exter nal Lab) Est Glomerular Filtration Rate >60(Exter nal Lab) Thyroid Stimulating Hormone 2.29(Exte rnal Lab) Glucose 94(Clinical Dietitian al Lab) 01/21/2021 Historical Provider POINT OF CARE SHAGGY T ORDERABLES documented in this encounter Visit Diagnoses Not on filedocumented in this encounter Care Teams Safety Companion Relationship Specialty Start Date End Date Sonido Cordoba PA [address] [place] [address] PCP - General Family Medicine 07/06/20 documented as of this encounter
--- OUTSIDE RECORDS SUMMARY | 2024-10-25 13:26 | XMS_ITS | Encounter Summary ---
[place] [address] Care Team Providers Care Chief Nurse Name Role Phone Sonido Cordoba Primary Care Provider +1- [phone] Encounter Details Date Type Department Care Team (Late st Contact Info) Description 12/22/2021 [place] [phone] Melina Hobbs CMA Social History Tobacco Use Types Packs/Day [...] Prior Authorization 4L Gastroenterology / [place] [address] Subscriber Insurance: [place] Medicaid Phone: Fax: Physician: Erum Szymanski Return [...] 11/26/2024 8:45 AM [place] [address] [address] [address] 12/31/2024 10:00 AM EST Office [place] [address] Mercy Amanda MD [facility] [address] [facility] [address] 04/01/2025 2:00 PM EDT Office [place] [address] Erum Szymanski MD [facility] [place] [address] documented as of this encounter Goals Goal [...] poptart) eating timing guides Lifestyle On track( 9:49 AM EDT) Priti Waldron RD Note: [...] filedocumented in this encounter Care Teams Chief Nurse Relationship Specialty Start Date End Date Sonido Cordoba PA [address] [place] [address] PCP - General Family Medicine 07/06/20 documented as of this encounter
--- OUTSIDE RECORDS SUMMARY | 2024-10-25 13:26 | XMS_ITS | Encounter Summary ---
Author Organization [place] [address] Care Team Providers Care Latex Caster Name Role Phone Sonido Cordoba Primary Care Provider +1- [phone] Encounter Details Date Type Department Care Team (Late st Contact Info) Description 07/26/2021 Telephone [place] [address] Gracy Ellis PA [facility] [place] [address] Social History Tobacco Use Types Packs/Day Years [...] 11/26/2024 8:45 AM EST Appoint[place] [address] MenJustusKeri [address] [place] [address] 12/31/2024 10:00 AM EST Office [place] [address] Mercy Amanda MD [facility] DR [facility] MED[facility] [place], [place] [address] 04/01/2025 2:00 PM EDT Office [place] [address] Erum Szymanski MD [facility] [place] [address] documented as of this encounter Results * [...] who have questions please contact the health foster care therapist that requested your imaging first. ? Narrative [...] patients who have questions please contactthe health foster care therapist that requested your imaging first. Joe Adam MD IMG DX ORDERABLES documented in this encounter Visit Diagnoses Diagnosis Peroneal tendon tear, right, subsequent encounter Peroneal tendon tear, right, subsequent encounter documented in this encounter Care Teams Latex Caster Relationship Specialty Start Date End Date Sonido Cordoba PA [address] [place] [address] PCP - General Family Medicine 07/06/20 documented as of this encounter
--- OUTSIDE RECORDS SUMMARY | 2024-10-25 13:26 | XMS_ITS | Encounter Summary ---
Author Organization [facility] [place] [address] Care Team Providers Care Recreation Adviser Name Role Phone Sonido Cordoba Primary Care Provider +1- [phone] Encounter Details Date Type Department Care Team (Latest Contact Info) Description 10/13/2021 8:00 AM EST TH Visit (TeleHealth) Weight and Wellness at [address] [address] Erik Sorenson Adult BMI 38.0-38.9 kg/sq m [...] ou more. Be well, Erik Sorenson Health Telecine Operator documented in this encounter Progress Notes * [...] provider Goals ??? track ORAL such as LUX[employer] Grouppal or Lose it, or pen and paper. [...] eating after 8:00pm Future follow-up with health basketball coach will address identified areas of concern: [x] [...] increasing mindfulness throughout the day. Your health basketball coach is well-equipped to guide you to find something to look forward to everyday. Eating behaviors: many people benefit from restricting the hours in which they eat. You can choose an eating window of 8-12 hours to start. Make a pact with yourself that you will not take in anything with caloric content outside this window. Your roll up guider operator may make further recommendations documented in this encounter Plan of Treatment Upcoming Encounters Date Type Department Care Team (Late st Contact Info) Description 11/26/2024 8:45 AM EST Appointment [place] [address] Margarita Keri [address] [place], [place] [address] 12/31/2024 10:00 AM EST Office [place] [address] Mercy Amanda MD [facility] [place] [address] 04/01/2025 2:00 PM EDT Office Visit [place] [address] Erum Szymanski MD [facility] DR GASTROENTEROLOGY [place], [place] [address] documented as of this encounter Goals Goal [...] adult documented in this encounter Care Teams Recreation Adviser Relationship Specialty Start Date End Date Sonido Cordoba PA [address] [place], [place] [address] PCP - General Family Medicine 07/06/20 documented as of this encounter
--- OUTSIDE RECORDS SUMMARY | 2024-10-25 13:27 | XMS_ITS | Encounter Summary ---
Author Organization [facility] [place] [address] Care Team Providers Care Engineer Station Mainline Name Role Phone Sonido Cordoba Primary Care Provider +1- [phone] Reason for Visit * Reason Comments Follow-up NXR // 08-12-20 right peroneal tendon repair // DOI 08/2019 Encounter Details Date Type Department Care Team (Late st Contact Info) Description 11/22/2020 2:00 PM EST Office [place] [address] Grayc Ellis PA [facility] [place] [address] Peroneal tendon tear, right, subsequent encounter Social [...] NAME: Vianney Cordero AGE: 45 y.o. MR#: [id number] DATE OF VISIT: 11/22/2020 CHIEF COMPLAINT: 14 [...] has not yet worked on scar massage. [facility]. [facility]. Past medical history: Patient Active Problem List [...] now roughly 14 weeks out post 08/12/2020 ([facility]) Right peroneal brevis tendon debridement/tubularization. We had [...] 11/26/2024 8:45 AM [place] [address] Keri Avila [address] [place] [address] 12/31/2024 10:00 AM EST Office [place] [address] Mercy Amanda MD [facility] [address] [facility] [address] 04/01/2025 2:00 PM EDT Office [place] [address] Erum Szymanski MD [facility] [place] [address] documented as of this encounter Visit Diagnoses Diagnosis Peroneal tendon tear, right, subsequent encounter documented in this encounter Care Teams Engineer Station Mainline Relationship Specialty Start Date End Date Sonido Cordoba PA [address] [place] [address] PCP - General Family Medicine 07/06/20 documented as of this encounter
--- OUTSIDE RECORDS SUMMARY | 2024-10-25 13:27 | XMS_ITS | Encounter Summary ---
[place] [address] Care Team Providers Care Consignee Name Role Phone Soniod Cordoba Primary Care Provider +1- [phone] Reason for Visit * Auth/Cert Specialty Diagnoses / Procedures Referred By Aric madrigal Referred To Contact Diagnoses Right peroneal tendon tear Procedures PRO REPAIR PERONEAL TENDONS PERONEAL TENDON REPAIR (WRVU 7.35) Referral ID Status Reason Start Date Expiration Date Visits Re quested Visits Authorized [id number] 1 1 Encounter Details Date Type Department Care Team (Late st Contact Info) Description 08/12/2020 8:54 AM EDT Anesthesia Event [facility] [place] [address] Cory Staples DO Anesthesia Record Procedure Summary Procedure Name Responsible [...] 1005; median cubital vein (antecubital fossa), right; iwlz-ezy-dyppzr catheter system; 22 gauge, 1 in length; 08/10/21 (LDA Cleanup utility RA#[id number]); 1650 (LDA Cleanup utility RA#[id number]) 03/30/20 1005 by Brandi Wheatley 08/10/21 1650 by Erik Mccoy (RETIRED) Peripheral IV Line - Single Lumen 08/12/20; 0803; cephalic vein (lateral side of arm), left; fkms-aja-doahnz catheter system; 20 gauge, 1 in length; Kirsten Brito RN; distraction, intradermal injection; 0; no longer indicated, catheter/device intact; 08/12/20; 1037 08/12/20 0803 by Yue Brito RN 08/12/20 1037 by Rebecca Corbett RN Supraglottic LMA Type: iGel; LMA Size: 3; Inserted by: RT; Removal Date: 08/12/20; Removal Time: 95308/12/20 0901 by Guanaco Camacho MD 08/12/20 0954 by Guanaco Camacho MD Incision 08/12/20; 0920; ankl e; 07/03/22 (LDA cleanup utility RA#[id number]); 171 (LDA cleanup utility RA#[id number]) 08/12/20 0920 by Duarte Garcia RN 07/03/22 1715 by Kimber Santiago documented in this encounter [...] Procedure Summary Date: 08/12/20 Room / Location: [facility] OR [address] [place] [address] Anesthesia Start: 853 Anesthesia Stop: 100 Procedure: PERONEAL TENDON REPAIR (WRVU 7.35) (Right Leg Lower) Diagnosis: (Right peroneal tendon tear) Surgeon: Mani Jefferson MD Responsible Provider: Cory Staples DO Anesthesia Type: MAC ASA Status: 3 All Anesthesia Providers: Anesthesiologist: Cory Staples DO Foundry Patternmaker: Guanaco Camacho MD Vitals Value Taken Time BP Temp Pulse Resp SpO2 Pain Level Patient Location: PACU/[facility] Level of Consciousness: Awake and Alert Pain [...] hygeine Skin Anesthetic: Lidocaine 1% dose: 5 R-pgfuf-ftpcr 21 10 cm Ultrasound Guided: YES and [...] 3.66) performed by Erum Szymanski MD at [facility] ??? PRO COLONOSCOPY, BIOPSY N/A 09/04/2019 COLONOSCOPY FLEXIBLE, WITH BX (WRVU 3.66) performed by Steve Ji MD at [facility] ??? PRO COLONOSCOPY, DIAGNOSTIC N/A 09/04/2019 COLONOSCOPY, DIAGNOSTIC performed by Steve Ji MD at [facility] ??? PRO COLONOSCOPY, REMV LESN, SNARE N/A 08/21/2018 COLONOSCOPY, POLYPECTOMY, REMOVAL LESION BY SNARE (WRVU 4.67) performed by Erum Szymanski MD at [facility] ? ? PRO CYSTO W [...] at [facility] OR ??? PRO UPPER GI ENDOSCOPY, BIOPSY N/A 01/27/2015 EGD WITH BIOPSY performed by Brandt Barlow MD at [facility] ??? PRO UPPER GI ENDOSCOPY, BIOPSY N/A 02/28/2016 EGD WITH BIOPSY performed by Brandt Barlow MD at [facility] ??? PRO UPPER GI ENDOSCOPY, BIOPSY N/A 09/04/2016 EGD WITH BIOPSY performed by Brandt Barlow MD at [facility] ??? PRO UPPER GI ENDOSCOPY, BIOPSY N/A 09/24/2017 EGD WITH BIOPSY (WRVU 2.49) performed by Brandt Barlow MD at [facility] ??? PRO UPPER GI ENDOSCOPY, BIOPSY N/A 08/21/2018 EGD WITH BIOPSY (WRVU 2.49) performed by Erum Szymanski MD at [facility] ??? PRO UPPER GI ENDOSCOPY, BIOPSY N/A 09/04/2019 UPPER GASTROINTESTINAL ENDOSCOPY,WITH BIOPSY SINGLE OR MULTIPLE (WRVU 2.49) performed by Steve Ji MD at [facility] ??? PRO UPPER GI ENDOSCOPY, DIAGNOSTIC N/A 09/04/2019 EGD, UPPER GI ENDOSCOPY performed by Steve Ji MD at [facility] ??? TONSILLECTOMY Social History Tobacco [...] risks discussed with patient. Plan discussed with EVENT REPRESENTATIVE. PAT Clinic Note * Anesthesia Preprocedure Evaluation - Doug Guanaco Tawny - 08/11/2020 4:50 PM EDT Pre-Anesthesia Evaluation [...] 3.66) performed by Erum Szymanski MD at [facility] ??? PRO COLONOSCOPY, BIOPSY N/A 09/04/2019 COLONOSCOPY FLEXIBLE, WITH BX (WRVU 3.66) performed by Steve Ji MD at [facility] ??? PRO COLONOSCOPY, DIAGNOSTIC N/A 09/04/2019 COLONOSCOPY, DIAGNOSTIC performed by Steve Ji MD at [facility] ??? PRO COLONOSCOPY, REMV LESN, SNARE N/A 08/21/2018 COLONOSCOPY, POLYPECTOMY, REMOVAL LESION BY SNARE (WRVU 4.67) performed by Erum Szymanski MD at [facility] ? ? PRO CYSTO W URETEROSCOPY &/OR PYELOSCOPY, DX Right 06/01/2015 CYSTOURETEROSCOPY, DIAGNOSTIC performed by Darius Nuñez Jr., MD at [facility] OR ??? PRO CYSTOSCOPY, INSERT [...] at [facility] OR ??? PRO UPPER GI ENDOSCOPY, BIOPSY N/A 01/27/2015 EGD WITH BIOPSY performed by Brandt Barlow MD at [facility] ??? PRO UPPER GI ENDOSCOPY, BIOPSY N/A 02/28/2016 EGD WITH BIOPSY performed by Brandt Barlow MD at [facility] ??? PRO UPPER GI ENDOSCOPY, BIOPSY N/A 09/04/2016 EGD WITH BIOPSY performed by Brandt Barlow MD at [facility] ??? PRO UPPER GI ENDOSCOPY, BIOPSY N/A 09/24/2017 EGD WITH BIOPSY (WRVU 2.49) performed by Brandt Barlow MD at [facility] ??? PRO UPPER GI ENDOSCOPY, BIOPSY N/A 08/21/2018 EGD WITH BIOPSY (WRVU 2.49) performed by Erum Szymanski MD at [facility] ??? PRO UPPER GI ENDOSCOPY, BIOPSY N/A 09/04/2019 UPPER GASTROINTESTINAL ENDOSCOPY,WITH BIOPSY SINGLE OR MULTIPLE (WRVU 2.49) performed by Steve Ji MD at [facility] ??? PRO UPPER GI ENDOSCOPY, DIAGNOSTIC N/A 09/04/2019 EGD, UPPER GI ENDOSCOPY performed by Steve Ji MD at [facility] ??? TONSILLECTOMY Social History Tobacco [...] on GA with LMA. Guanaco Camacho PhD, . Anesthesiology CA2 Informed Consent: PAT Clinic Note documented in this encounter Plan of Treatment Upcoming Encounters Date Type Department Care Team (Late st Contact Info) Description 11/26/2024 8:45 AM EST Appointment [place] [address] Keri Avila [address] [place] [address] 12/31/2024 10:00 AM EST Office [place] [address] Mercy Amanda MD [facility] [address] [facility] [place] [address] 04/01/2025 2:00 PM EDT Office [place] [address] Erum Szymanski MD [facility] [place] [address] documented as of this encounter Procedures Procedure [...] hygeine Skin Anesthetic: ??Lidocaine 1% dose: ??5 R-dwroj-bofjq 21 10 cm Ultrasound Guided: ??YES and [...] mL no complications ?? Attending Physician:: ??Cory Staples, DO Pt mildly sedated. Sonoanatomy described- poor visulaization of bifurcation, skin localized, easy block. VSS Pt calm. No events. Nice hydrodissection with excellent prox spread. Cory Staples DO [facility] documented in this encounter Visit Diagnoses [...] mL/hr documented in this encounter Care Teams Consignee Relationship Specialty Start Date End Date Sonido Cordoba PA [address] [place] [address] PCP - General Family Medicine 07/06/20 documented as of this encounter
--- OUTSIDE RECORDS SUMMARY | 2024-10-25 13:27 | XMS_ITS | Encounter Summary ---
Author Organization [facility] [place] [address] Care Team Providers Care Pop Singer Name Role Phone Sonido Cordoba Primary Care Provider +1- [phone] Reason for Referral * Physical Therapy (Routine) - Specialty Diagnoses / Procedures Referred By Aric madrigal Referred To Contact Diagnoses Peroneal tendon tear, right, subsequent encounter Gracy Ellis PA [facility] [place] [address] Referral ID Status Reason Start Date Expiration Date V isits Requested Visits Authorized [id number] Evaluate and Treat 08/25/2020 02/21/2021 12 12 Reason for Visit * Reason Comments Post Op 08-12-20 right perone al tendon repair // DOI 08/2019 Encounter Details Date Type Department Care Team (Late st Contact Info) Description 08/25/2020 10:30 AM EDT Office [place] [address] Gracy Ellis PA [facility] [place] [address] Peroneal tendon tear, right, subsequent [...] NAME: Vianney Cordero AGE: 44 y.o. MR#: [id number] DATE OF VISIT: 08/25/2020 CHIEF COMPLAINT: 2 [...] 11/26/2024 8:45 AM EST [place] [phone] Keri Avila [address] [place] [address] 12/31/2024 10:00 AM EST Office [place] [phone] Mercy Amanda MD [facility] DR [facility] [address] 04/01/2025 2:00 PM EDT Office [place] [address] Erum Szymanski MD [facility] [place] [address] Scheduled Referrals Name Type Priority Associated Diagnoses Orde r Schedule Referral to Physical Therapy Outpatient Referral Routine Peroneal tendon tear, right, subsequent encounter Ordered: 08/25/2020 documented as of this encounter Visit Diagnoses Diagnosis Peroneal tendon tear, right, subsequent encounter documented in this encounter Care Teams Pop Singer Relationship Specialty Start Date End Date Sonido Cordoba PA [address] [place] [address] PCP - General Family Medicine 07/06/20 documented as of this encounter
--- OUTSIDE RECORDS SUMMARY | 2024-10-25 13:27 | XMS_ITS | Encounter Summary ---
Author Organization [facility] [place] [address] Care Team Providers Care Electronic Security Specialist Name Role Phone Sonido Cordoba Primary Care Provider +1- [phone] Reason for Referral * Consultation (Routine) - Closed Specialty Diagnoses / Procedures Referred By Contac t Referred To Contact [facility] Diagnoses Chronic RUQ pain Pain - Chronic RUQ pain/ ?injections/ U/S 03/2019 in eDH Erum Szymanski MD [facility] [place] [address] Michaela Givens MD [facility] [place] [address] Referral ID Status Reason Start Date Expiration Date V isits Requested Visits Authorized [id number] Closed Consult, Test & Treat 03/08/2020 03/08/2021 3 3 * Diagnostic Test (Routine) - Closed Specialty Diagnoses / Procedures Referred By Contac t Referred To Contact Radiology Diagnoses Chronic RUQ pain Procedures NM Functional Biliary Scan Erum Szymanski MD [facility] [place] [address] [place] [address] Referral ID Status Reason Start Date Expiration Date V isits Requested Visits Authorized [id number] Closed Specialty Service Requested 03/08/2020 09/08/2021 2 2 Encounter Details Date Type Department Care Team (Latest Contact Info) Description 03/08/2020 10:00 AM EDT TH Visit (TeleHealth) [place] [phone] Erum Szymanski MD [facility] [place] [address] Chronic RUQ pain; Gastroesophageal reflux disease with [...] Will do a gallbladder scan - our electrician maintenance will call you ?? 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 Maori dressing - free meals from [employer] where she works. Sometimes doesn't have time [...] 3.66) performed by Erum Szymanski MD at [facility] ??? PRO COLONOSCOPY, BIOPSY N/A 09/04/2019 COLONOSCOPY FLEXIBLE, WITH BX (WRVU 3.66) performed by Steve Ji MD at [facility] ??? PRO COLONOSCOPY, DIAGNOSTIC N/A 09/04/2019 COLONOSCOPY, DIAGNOSTIC performed by Steve Ji MD at [facility] ??? PRO COLONOSCOPY, REMV LESN, SNARE N/A 08/21/2018 COLONOSCOPY, POLYPECTOMY, REMOVAL LESION BY SNARE (WRVU 4.67) performed by Erum Szymanski MD at [facility] ? ? PRO CYSTO W URETEROSCOPY &/OR PYELOSCOPY, DX Right 06/01/2015 CYSTOURETEROSCOPY, DIAGNOSTIC performed by Darius Nuñez Jr., MD at [facility] OR ??? PRO CYSTOSCOPY, INSERT URETERAL STENT Right 06/01/2015 CYSTO, STENT PLACEMENT performed by Darius Nuñez Jr., MD at [facility] OR ??? PRO LAP, ESOPHAGOGAST FUNDOPLASTY N/A 04/05/2015 LAPAROSCOPIC TYESHA FUNDOPLASTY performed by Valentín Moura MD at [facility] OR ??? PRO PERCUT DILATN RENAL TRACT Right 06/01/2015 PERCUTANEOUS INTRO GUIDE WIRE TO ACCESS RENAL PELVIS,AND OR URETER, W\DILATION performed by Darius Nuñez Jr., MD at [facility] OR ??? PRO PERCUT REMV KID STONE, UP TO 2 CM Right 06/01/2015 NEPHROLITHOTOMY, ([facility]) PERCUTANEOUS performed by Darius Nuñez Jr., MD at [facility] OR ??? PRO UPPER GI ENDOSCOPY, BIOPSY N/A 01/27/2015 EGD WITH BIOPSY performed by Brandt Barlow MD at [facility] ??? PRO UPPER GI ENDOSCOPY, BIOPSY N/A 02/28/2016 EGD WITH BIOPSY performed by Brandt Barlow MD at [facility] ??? PRO UPPER GI ENDOSCOPY, BIOPSY N/A 09/04/2016 EGD WITH BIOPSY performed by Brandt Barlow MD at [facility] ??? PRO UPPER GI ENDOSCOPY, BIOPSY N/A 09/24/2017 EGD WITH BIOPSY (WRVU 2.49) performed by Brandt Barlow MD at [facility] ??? PRO UPPER GI ENDOSCOPY, BIOPSY N/A 08/21/2018 EGD WITH BIOPSY (WRVU 2.49) performed by Erum Szymanski MD at [facility] ??? PRO UPPER GI ENDOSCOPY, BIOPSY N/A 09/04/2019 UPPER GASTROINTESTINAL ENDOSCOPY,WITH BIOPSY SINGLE OR MULTIPLE (WRVU 2.49) performed by Steve Ji MD at [facility] ??? PRO UPPER GI ENDOSCOPY, DIAGNOSTIC N/A 09/04/2019 EGD, UPPER GI ENDOSCOPY performed by Steve Ji MD at [facility] ??? TONSILLECTOMY Social History Socioeconomic History [...] file Gets together: Not on file Attends zoroastrian service: Not on file Active member of [...] HIDA scan to check gallbladder EF ?? 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 [...] Erum Szymanski MD 03/07/20 Erum Szymanski MD [employer]ender[employer] custodian Section of Gastroenterology and Hepatology [email or web address] ([email or web address]) documented in this encounter Plan of Treatment Upcoming Encounters Date Type Department Care Team (Late st Contact Info) Description 11/26/2024 8:45 AM EST [place] [address] [address]eri Avila [address] [place] [address] 12/31/2024 10:00 AM EST Office [place] [address] Mercy Amanda MD [facility] [address] [facility] [place], [place] [id number] 04/01/2025 2:00 PM EDT Office [place] [address] Erum Szymanski MD [facility] [place] [address] Scheduled Referrals Name Type Priority [...] the number below. ? Electronically signed by: Zach Summers [facility] ([phone]), at 03/30/2020 12:00 PM Narrative 03/30/2020 12:00 PM EDT EXAMINATION: NM [...] contact the number below. 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
--- OUTSIDE RECORDS SUMMARY | 2024-10-25 13:27 | XMS_ITS | Encounter Summary ---
Author Organization [facility] Address [facility] [place] [address] Care Team Providers Care Orthopedic Brace Maker Name Role Phone Unknown Primary Care Provider Unavailabl e Encounter Details Date Type Department Care Team (Late st Contact Info) Description 07/01/2020 [place] [phone] Devan Roth Jr., MD [facility] [place] [address] Nephrolithiasis Social History Tobacco Use Types Packs/Day [...] 11/26/2024 8:45 AM EST [place] [phone] Keri Avila [address] [place] [address] 12/31/2024 10:00 AM EST Office [place] [phone] Mercy Amanda MD [facility] DR [facility] [place] [address] 04/01/2025 2:00 PM EDT Office [place] [address] Erum Szymanski MD [facility] GASTROENTEROLOGY [place], [place] [id number] documented as of this encounter Results * [...] please contact the number below. ?Aliya Nguyen, Screen Repairer Crusher Electronically Signed Final Report ?? 12/22/2020 10:42 am Narrative 12/22/2020 10:43 AM EST Renal ? (Signed Final 12/22/2020 10:42 am) PATIENT INFO: ID #: ? [id number] ?: ??[birth year] (45 yrs)(F) Name: ? VIANNEY NEVES ?Visit Date: 12/22/2020 09:02 am ? GABRIELLE PERFORMED BY: Performed By: ? Marga Enciso RDMS Attending: ?Patrick RIVAS, Aliya Grimes Referred By: ?DEVAN ROTH JR Location: ? [place] SERVICE(S) PROVIDED: URETRO - Retroperitoneal Complete - [id number] ? [id number] INDICATIONS: stones COMPARISON: Ultrasound: 09/11/17. RIGHT KIDNEY: [...] 12/22/2020 10:42 am) PATIENT INFO: ID #: [id number] : [birth year] (45 yrs)(F) Name: VIANNEY NEVES Visit Date: 12/22/2020 09:02 am GABRIELLE PERFORMED BY: Performed By: Marga Enciso RDMS Attending: Aliya Nguyen MD Referred By: DEVAN ROTH Location: [place] SERVICE(S) PROVIDED: URETRO - Retroperitoneal Complete - [id number] INDICATIONS: stones COMPARISON: Ultrasound: 09/11/17. RIGHT KIDNEY: [...] contact the number below. Electronically signed by: Aliya Nguyen MD, [facility] ([phone]), at 12/22/2020 9:50 AM Aliya Nguyen, Screen Repairer Crusher Electronically Signed Final Report 12/22/2020 10:42 am Devan Roth Jr., MD [facility] GEN ORDERAB LES documented in this encounter Visit Diagnoses Diagnosis Nephrolithiasis Calculus of kidney Nephrolithiasis Calculus of kidney documented in this encounter Care Teams Orthopedic Brace Maker Relationship Specialty Start Date End Date Unknown None PCP - General 06/23/20 07/05/20 documented as of this encounter
--- OUTSIDE RECORDS SUMMARY | 2024-10-25 13:27 | XMS_ITS | Encounter Summary ---
[place] [address] Care Team Providers Care Malware Analyst Name Role Phone Sonido Cordoba Primary Care Provider +1- [phone] Reason for Referral * Diagnostic Test (Routine) - Closed Specialty Diagnoses / Procedures Referred By Contac t Referred To Contact Radiology Diagnoses Chronic RUQ pain Procedures NM Functional Biliary Scan Erum Szymanski MD [facility] [address] [place] [address] Referral ID Status Reason Start Date Expiration Date V isits Requested Visits Authorized [id number] Closed Specialty Service Requested 03/08/2020 09/08/2021 2 2 Reason for Visit * Diagnostic Test (Routine) - Closed Specialty Diagnoses / Procedures Referred By Contac t Referred To Contact Radiology Diagnoses Chronic RUQ pain Procedures NM Functional Biliary Scan Erum Szymanski MD [facility] [address] [facility] [place] [address] Referral ID Status Reason Start Date Expiration Date V isits Requested Visits Authorized [id number] Closed Specialty Service Requested 03/08/2020 09/08/2021 2 2 Encounter Details Date Type Department Care Team (Latest Contact Info) Description 03/30/2020 10:00 AM EDT - 03/30/2020 10:04 AM EDT Hospital Encounter [place] [phone] Erum Szymanski MD [facility] [address] Chronic RUQ pain Discharge Disposition: Home Social [...] 11/26/2024 8:45 AM EST [place] [phone] Keri Avila [address] [place] [address] 12/31/2024 10:00 AM EST Office [place] [phone] Mercy Amanda MD [facility] [address] [place] [address] 04/01/2025 2:00 PM EDT Office [place] [phone] Erum Szymanski MD [facility] [place] [address] documented as of this encounter Procedures Procedure [...] below. ? Electronically signed by: Zach Summers [facility] ([phone]), at 03/30/2020 12:00 PM Narrative 03/30/2020 12:00 [...] contact the number below. Electronically signed by: Zach Summers [facility]([phone]), at 03/30/2020 12:00 PM Erum Szymanski MD IM NM ORDERABLES documented in this encounter Visit [...] Arm documented in this encounter Care Teams Malware Analyst Relationship Specialty Start Date End Date Sonido Cordoba PA [address] [place] [address] PCP - General Family Medicine 11/16/15 06/22/20 documented as of this encounter
--- OUTSIDE RECORDS SUMMARY | 2024-10-25 13:27 | XMS_ITS | Encounter Summary ---
Author Organization [facility] [place] [address] Care Team Providers Care Focus Puller Name Role Phone Sonido Cordoba Primary Care Provider +1- [phone] Reason for Visit * Auth/Cert Specialty Diagnoses / Procedures Referred By Aric madrigal Referred To Contact Diagnoses Right peroneal tendon tear Procedures PRO REPAIR PERONEAL TENDONS PERONEAL TENDON REPAIR (WRVU 7.35) Referral ID Status Reason Start Date Expiration Date Visits Re quested Visits Authorized [id number] 1 1 Encounter Details Date Type Department Care Team (Latest Contact Info) Description 08/12/2020 7:17 AM EDT - 08/12/2020 11:06 AM EDT Hospital Encounter Out[place] [address] Mani Rowe MD [facility] DR [place] [address] Discharge Disposition: Home Social History Tobacco Use [...] closest emergency room or call the hospital grinder operator automatic at [phone] and ask for physician yardage control operator covering for your physician. Questions or problems after 5pm or on a weekend: Call the [facility] grinder operator automatic at and ask for the physician yardage control operator covering for your doctor. At 8:10 am [...] after hours and ask for the anesthesiologist yardage control operator. * Patient Instructions* Noé Almanza MD - 08/12/2020 8:52 AM EDT Orthopaedic Surgery Discharge Instructions PROCEDURE: Right Peroneal Tendon Repair MEDICATION: ?? If you need a renewal of your pain medication, please contact the clinic at [phone]. PRESCRIPTION RENEWAL REQUEST CAN TAKE UP TO [...] taking them. You should also take an xqgu-fih-rllqxyn stool softener, colace or senna, to facilitate [...] You will have a follow-up appointment with [facility] Orthopaedics as indicated below in Future Appointment and Orders. Please call to verify your appointment. Future Appointments Date Time Provider Department Center 08/25/2020 10:30 AM Gracy Ellis PA [facility] ORTH 3C [facility] 09/29/2020 8:30 AM [facility]OM 5 [facility] Rad 09/29/2020 9:30 AM Darius Nuñez Jr., MD [facility] URO [facility] If you have questions or concerns: Sunday [...] Both are aware of getting RX at [facility]. 1104-- tall walker boot applied by Caleb León RN. Pt taken out to private car, crutches sent with pt. Assisted out by nursing staff * Berkley Logan RN - 08/11/2020 3:26 PM EDT During this call the patient was questioned regarding travel outside of [facility], fever, cough, SOB or other illness in [...] again, temperature will be taken, patient and caregiver/goat driver will be given a mask to wear the entire time they are in the [facility] building. * Daysi Lizarraga RN - 08/05/2020 2:49 PM EDT During this call the patient was questioned regarding travel outside of [facility], fever, cough, SOB or other illness in [...] again, temperature will be taken, patient and caregiver/goat driver will be given a mask to [...] Rowe MD - 08/12/2020 10:09 AM EDT [facility] Operative Note Patient Name: Vianney Cordero : [id number] MR#: [id number] Case Date: 08/12/2020 Surgeon: Surgeon(s) and Role: [...] 11/26/2024 8:45 AM EST [place] [address] [address] 12/31/2024 10:00 AM EST Office [place] [address] Mercy Amanda MD [facility] [address] 04/01/2025 2:00 PM EDT Office Visit Gastroenterology at [facility] [place] [address] Erum Szymanski MD [facility] [place] [address] documented as of this encounter Procedures Procedure Name Priority Date/Time Associated Diagnosis Comments Repair Peroneal Tendons (39675) 08/12/2020 8:53 AM EDT Right peroneal tendon [...] HOURS, 1 dose, First dose on Brittny 10/20 at 0745, Administer over 30 Minutes, Redose after 3 hours., Intra-Operative (Intra-Procedure), Indication for (Active or Suspected): Prophylaxis 906 (Given - Provid er: Cory Staples DO) Continuous Medication Order 08/10/2020 08/11/2020 08/12/2020 lactated ringers infusion (CANCELED) 1,000 mL, at 100 mL/hr, Intravenous, CONTINUOUS, Starting on Brittny 10 at 0745, Until Brittny 10 at 1104, Day of Surgery (Day of Procedure) 803 (New Bag - Prov ider: Yue Brito RN) PRN Medication Order 08/10/2020 08/11/2020 08/12/2020 acetaminophen (Tylenol) tablet 975 mg 975 mg, Oral, EVERY 6 HOURS PRN, Starting on Brittny 10 at 1005, Until Brittny 1020 at 1306, Pain, Maximum dose of acetaminophen is 4000 mg from all sources in 24 hours. When ordered for pain, acetaminophen should be given even when other ordered pain medications are indicated. , Routine fentaNYL (PF) 50 mcg/mL injection (CANCELED) 50 mcg, Intravenous, EVERY 5 MIN PRN, Starting on Brittny 108/20 at 0806, Until Brittny 1020 at 1104, Pain, or prior to injection of local anesthetic., Hold for respiratory rate less than 8 breaths per minute. (maximum dose 200 mcg), Day of Surgery (Day of Procedure), Routine 08 (Given - Provid er: Yue Brito RN)08 (Given - Provider: Yue Brito RN) midazolam (PF) (VERSED) injection 1 mg (CANCELED) 1 mg, Intravenous, EVERY 5 MIN PRN, Starting on Brittny 10/8/20 at 0806, Until Brittny 10/20 at 1104, Sleep, or prior to injection of local anesthetic, Hold for delirium/agitation. (Maximum dose 5 mg)., Day of Surgery (Day of Procedure), Routine 0817 (Given - Provid er: Yue Brito RN)0826 (Given - Provider: Yue Brito RN) traMADoL (Ultram) tablet 50 mg 50 mg, Oral, EVERY 6 HOURS PRN, Starting on Brittny 08/12/20 at 1004, Until Brittny 08/12/20 at 1306, Pain, Routine documented in this encounter Care Teams Focus Puller Relationship Specialty Start Date End Date Sonido Cordoba PA [address] [place] [address] PCP - General Family Medicine 07/06/20 documented as of this encounter
--- OUTSIDE RECORDS SUMMARY | 2024-10-25 13:27 | XMS_ITS | Encounter Summary ---
[place] [address] Care Team Providers Care Storage Battery Tester Name Role Phone Sonido Cordoba Primary Care Provider +1- [phone] Reason for Referral * Diagnostic Test (Routine) - Closed Specialty Diagnoses / Procedures Referred By Contac t Referred To Contact Radiology Diagnoses Peroneal tendinitis, right Procedures MRI Ankle wo Contrast Right MRI Foot wo Contrast Right Lizbeth Guzman APRN [facility] [place] [address] [place] [address] Referral ID Status Reason Start Date Expiration Date V isits Requested Visits Authorized [id number] Closed Specialty Service Requested 1 1 Reason for Visit * Diagnostic Test (Routine) - Closed Specialty Diagnoses / Procedures Referred By Contac t Referred To Contact Radiology Diagnoses Peroneal tendinitis, right Procedures MRI Ankle wo Contrast Right MRI Foot wo Contrast Right Lizbeth Guzman APRN [facility] [place] [address] [facility] [place] [address] Referral ID Status Reason Start Date Expiration Date V isits Requested Visits Authorized [id number] Closed Specialty Service Requested 1 1 Encounter Details Date Type Department Care Team (Latest Contact Info) Description 09/29/2019 3:01 PM [facility] Hospital [place] [address] Lizbeth Guzman APRN [facility] [place] [address] Peroneal tendinitis, right Discharge Disposition: [...] Vianney Cordero AGE: 43 y.o. : [address] [place] [address] Female [phone] (home) [phone] (work) Telephone Information: WANDY Aguilera No primary care provider on file. Allergies Allergen Reactions ??? Oxycodone Nausea And Vomiting Date/Time of call: September 24, 2019/11:13 AM/ PREVIOUS MRI SCAN? Yes HEIGHT: 5'3 WEIGHT: 249 lbs SCHEDULED SCAN: MRI ANKLE RIGHT WO CONTRAST [[id number]] (60 mins, feet first, supine) SUBJECTIVE: A [...] ( XXX ) You must have a local company tanker driver present when you check in. This patient has been informed that they require a local company tanker driver to drive them home after this procedure. In the absence of a local company tanker driver, IR will not be able to sedate for your scan. Pt verbalized understanding of these instructions during the pre-procedure education via phone. XX Yes [place] of local company tanker driver: Mom Phone number PRIOR SCAN DATE/S [...] 11/26/2024 8:45 AM EST Appoint[place] [address] Keri Avila [address] [place] [address] 12/31/2024 10:00 AM EST Office [place] [address] Mercy Amanda MD [facility] DR [facility] [address] 04/01/2025 2:00 PM EDT Office [place] [address] Erum Szymanski MD [facility] [place] [address] documented as of this encounter Procedures Procedure [...] please contact the number below. ? Narrative 09/30/2019 8:46 AM EST EXAMINATION: MRI [...] right ankle was performed without contrast using ruste ankle protocol. COMPARISON: None FINDINGS: Tendons: The [...] please contact the number below. Lizbeth Guzman APRN [facility] ORDERABLES documented in this encounter Visit Diagnoses Diagnosis Peroneal tendinitis, right documented in this encounter Administered Medications Inactive Administered Medications - up to 3 most recent administrations Medication Order MAR Action Action Date Dose Rate Site diazePAM (VALIUM) tablet 5 mg 5 mg, Oral, 2 TIMES DAILY PRN, Starting on Sun09/29/19 at 0834, Until Sun09/30/19 at 0441, Anxiety, Angio/IR (Day of Procedure), Routine Given 09/29/2019 3:31 PM EST 5 mg documented in this encounter Care Teams Storage Battery Tester Relationship Specialty Start Date End Date Sonido Cordoba PA [address] [place] [address] PCP - General Family Medicine 11/16/15 06/22/20 documented as of this encounter
--- OUTSIDE RECORDS SUMMARY | 2024-10-25 13:27 | XMS_ITS | Encounter Summary ---
[place] [address] Care Team Providers Care Engine Pilot Name Role Phone Sonido Cordoba Primary Care Provider +1- [phone] Encounter Details Date Type Department Care Team (Late st Contact Info) Description 03/08/2020 Telephone [place] [address] Melina Hobbs CMA Social History Tobacco Use [...] 11/26/2024 8:45 AM [place] [address] Keri Avila [address] [place] [address] 12/31/2024 10:00 AM EST Office [place] [address] Mercy Amanda MD [facility] [address] [facility] [address] 04/01/2025 2:00 PM EDT Office [place] [address] Erum Szymanski MD [facility] [place] [address] documented as of this encounter Visit Diagnoses Not on filedocumented in this encounter Care Teams Engine Pilot Relationship Specialty Start Date End Date Sonido Cordoba PA [address] [place] [address] PCP - General Family Medicine 11/16/15 06/22/20 documented as of this encounter
--- OUTSIDE RECORDS SUMMARY | 2024-10-25 13:27 | XMS_ITS | Encounter Summary ---
Author [place] [address] Care Team Providers Care Roof Slater Name Role Phone Soindo Cordoba Primary Care Provider +1- [phone] Reason for Visit * Diagnostic Test (Routine) - Closed Specialty Diagnoses / Procedures Referred By Aric madrigal Referred To Contact Radiology Diagnoses Chronic RUQ pain Procedures NM Functional Biliary Scan Erum Szymanski MD [facility] [place] [address] [place] [address] Referral ID Status Reason Start Date Expiration Date V isits Requested Visits Authorized [id number] Closed Specialty Service Requested 03/08/2020 09/08/2021 2 2 Encounter Details Date Type Department Care Team (Latest Contact Info) Description 03/30/2020 10:05 AM EDT - 03/30/2020 11:59 PM EDT Hospital Encounter [place] [address] Erum Szymanski MD [facility] [place] [address] Discharge Disposition: Home Social History [...] 11/26/2024 8:45 AM EST Appoint[place] [address] Keri Avila [address] [place] [address] 12/31/2024 10:00 AM EST Office [place] [address] Mercy Amanda MD [facility] [address] [facility] [place] [address] 04/01/2025 2:00 PM EDT Office Visit [place] [address] Erum Szymanski MD [facility] [place] [address] documented as of this encounter Procedures Procedure [...] Arm documented in this encounter Care Teams Roof Slater Relationship Specialty Start Date End Date Sonido Cordoba PA [address] [place] [address] PCP - General Family Medicine 11/16/15 06/22/20 documented as of this encounter
--- OUTSIDE RECORDS SUMMARY | 2024-10-25 13:27 | XMS_ITS | Encounter Summary ---
[place] [address] Care Team Providers Care Electric Scoop Operator Name Role Phone Sonido Cordoba Primary Care Provider +1- [phone] Encounter Details Date Type Department Care Team (Late st Contact Info) Description 02/16/2020 Telephone [place] [address] Sabiha Vincent Social History Tobacco [...] 11/26/2024 8:45 AM EST [place] [address] Keri Avila [address] [place] [address] 12/31/2024 10:00 AM EST Office Visit Weight Center at [place] [phone] Mercy Amanda MD [facility] DR [facility] [address] 04/01/2025 2:00 PM EDT Office [place] [address] Erum Szymanski MD [facility] [place] [address] documented as of this encounter Visit Diagnoses Not on filedocumented in this encounter Care Teams Electric Scoop Operator Relationship Specialty Start Date End Date Sonido Cordoba PA [address] [place] [address] PCP - General Family Medicine 11/16/15 06/22/20 documented as of this encounter
--- OUTSIDE RECORDS SUMMARY | 2024-10-25 13:27 | XMS_ITS | Encounter Summary ---
Author Organization [place] [address] Care Team Providers Care Rag Grader Name Role Phone Sonido Cordoba Primary Care Provider +1- [phone] Reason for Visit * Reason Comments Follow-up right foot/ankle guilherme n Encounter Details Date Type Department Care Team (Late st Contact Info) Description 05/04/2020 8:20 AM EDT Office [place] [address] Lizbeth Guzman APRN [facility] [place] [address] Peroneal tendon tear, right, subsequent encounter Social [...] this encounter Progress Notes * Lizbeth Guzman, EMPLOYMENT APPEALS EXAMINER - 05/04/2020 8:20 AM EDT PATIENT NAME: Vianney Cordero AGE: 44 y.o. MR#: [id number] DATE OF VISIT: 05/04/2020 DATE OF INJURY/ONSET: [...] custom orthotics, several sessions of PT at [facility], and cast immobilization (Fx boot). The pain persists. 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 hours [...] 11/26/2024 8:45 AM EST [place] [address] Keri Avila [address] [place] [address] 12/31/2024 10:00 AM EST Office [place] [address] Mercy Amanda MD [facility] [address] [facility] [address] 04/01/2025 2:00 PM EDT Office [place] [address] Erum Szymanski MD [facility] [place] [address] documented as of this encounter Visit Diagnoses Diagnosis Peroneal tendon tear, right, subsequent encounter documented in this encounter Care Teams Rag Grader Relationship Specialty Start Date End Date Sonido Cordoba PA [address] [place] [address] PCP - General Family Medicine 11/16/15 06/22/20 documented as of this encounter
--- OUTSIDE RECORDS SUMMARY | 2024-10-25 13:27 | XMS_ITS | Encounter Summary ---
[place] [address] Care Team Providers Care Crime Scene Photographer Name Role Phone Sonido Cordoba Primary Care Provider +1- [phone] Reason for Visit * Reason Onset Date Comments Medication Refill 08/17/2020 Encounter Details Date Type Department Care Team (Late st Contact Info) Description 08/17/2020 [place] [address] Radha Nunes RN Social History Tobacco Use [...] HCL 50 MG TABLET 15.0 4 [facility] [id number] [facility] (5571) 0 Query: Must be completed today: yes [...] Prescription to be sent electronically to [facility] Prescription prepped and pended for Gracy Ellis review. The patient knows how to contact orthopaedics if any further questions or concerns occur. documented in this encounter Plan of Treatment Upcoming Encounters Date Type Department Care Team (Late st Contact Info) Description 11/26/2024 8:45 AM EST [place] [address] Keri Avila [address] [place] [address] 12/31/2024 10:00 AM EST Office [place] [address] Mercy Amanda MD [facility] DR [facility] [place] [address] 04/01/2025 2:00 PM EDT Office [place] [address] Erum Szymanski MD [facility] [place] [address] documented as of this encounter Visit Diagnoses Not on filedocumented in this encounter Care Teams Crime Scene Photographer Relationship Specialty Start Date End Date Sonido Cordoba PA [address] [place] [address] PCP - General Family Medicine 07/06/20 documented as of this encounter
--- OUTSIDE RECORDS SUMMARY | 2024-10-25 13:27 | XMS_ITS | Encounter Summary ---
Author Organization [facility] Address [facility] [place] [address] Care Team Providers Care Conversion Developer Name Role Phone Sonido Cordoba Primary Care Provider +1- [phone] Encounter Details Date Type Department Care Team (Late st Contact Info) Description 09/04/2019 8:32 AM EDT - 09/04/2019 12:22 PM EDT Hospital [place] [address] Steve Ji MD [facility] [place] [address] Discharge Disposition: Home Social History Tobacco Use [...] to be checked. Sunday-Sunday Same Day Endo [phone] 7a-8p Otherwise contact [phone] and ask to speak to the tray checker pavilion cutter Follow up care is a harper part [...] complication. Informed Consent signed by patient (or wireless sales representative). documented in this encounter Plan of Treatment Upcoming Encounters Date Type Department Care Team (Late st Contact Info) Description 11/26/2024 8:45 AM EST [place] [phone] Keri Avila [address] [place] [address] 12/31/2024 10:00 AM EST Office [place] [phone] Mercy Amanda MD [facility] [address] [place] [address] 04/01/2025 2:00 PM EDT Office [place] [phone] Erum Szymanski MD [facility] [address] documented as of this encounter Procedures Procedure Name Priority Date/Time Associated Diagnosis Comments SURGICAL PATHOLOGY REPORT Routine 09/04/2019 11:15 AM EDT SPECIMEN TO PATHOLOGY Routine 09/04/2019 11:15 AM EDT SPECIMEN TO PATHOLOGY Routine 09/04/2019 11:15 AM EDT SPECIMEN TO PATHOLOGY Routine 09/04/2019 11:15 AM EDT SPECIMEN TO PATHOLOGY Routine 09/04/2019 11:15 AM EDT SPECIMEN TO PATHOLOGY Routine 09/04/2019 11:15 AM EDT Colonoscopy, Biopsy ([id number]) 09/04/2019 10:39 AM EDT Adenomatous polyp of colon, unspecified part of colon 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 History of Helicobacter pylori infection Upper Gi Endoscopy, Biopsy (70430) 09/04/2019 10:39 AM EDT Adenomatous polyp of colon, unspecified part of colon 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 History of Helicobacter pylori infection Colonoscopy, Diagnostic (85884) 09/04/2019 10:39 AM EDT Adenomatous polyp of colon, unspecified part of colon 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 Location: 4; 08; A The signing pathologist has (i) [...] Gomez MD Verified: ??09/05/2019 ?Pathologist Performed at: ??-[facility] [place]. [place], [place], [place] CLINICAL INFORMATION Specimen Submitted: A - [...] Quantity/Size: Multiple, 0.2-0.4 cm. Tissue Description: Soft, yellow-gary tissues. Sections/Process ing: Submitted en toto ??in 2 cassettes labeled E1-E2. ??ejr 09/05/2019 2:04 PM EDT [facility] GI Biopsy 09/04/2019 11:1 [...] MD PATHOLOGY/CYTOLOG Y ORDERABLES Performing Organization Address [facility] Co de Phone Number [facility] [place] [address] * Specimen to Pathology (09/04/2019 11:15 AM EDT) AP Specimen 09/04/2019 11:1 5 AM EDT 09/04/2019 11:15 AM EDT Narrative [facility] - 09/04/2019 11:15 AM EDT Specimen requisition ordered. ??Separate Pathology report to follow Steve Ji MD PATHOLOGY/CYTOLOG Y ORDERABLES Performing Organization Address [facility] [place] [address] * Specimen to Pathology (09/04/2019 11:15 AM EDT) AP Specimen 09/04/2019 11:1 5 AM EDT 09/04/2019 11:15 AM EDT Narrative [facility] - 09/04/2019 11:15 AM EDT Specimen requisition ordered. ??Separate Pathology report to follow Steve Ji MD PATHOLOGY/CYTOLOG Y ORDERABLES Performing Organization Address [facility]/State/[place] [address] * Specimen to Pathology (09/04/2019 11:15 AM EDT) AP Specimen 09/04/2019 11:1 5 AM EDT 09/04/2019 11:15 AM EDT Narrative [facility] - 09/04/2019 11:15 AM EDT Specimen requisition ordered. ??Separate Pathology report to follow Steve Ji MD PATHOLOGY/CYTOLOG Y ORDERABLES Performing Organization Address [facility] [place] [address] * Specimen to Pathology (09/04/2019 11:15 AM EDT) AP Specimen 09/04/2019 11:1 5 AM EDT 09/04/2019 11:15 AM EDT Narrative [facility] - 09/04/2019 11:15 AM EDT Specimen requisition ordered. ??Separate Pathology report to follow Steve Ji MD PATHOLOGY/CYTOLOG Y ORDERABLES Performing Organization Address [facility] [place] [address] * Specimen to Pathology (09/04/2019 11:15 AM EDT) AP Specimen 09/04/2019 11:1 5 AM EDT 09/04/2019 11:15 AM EDT Narrative [facility] - 09/04/2019 11:15 AM EDT Specimen requisition ordered. ??Separate Pathology report to follow Steve Ji MD PATHOLOGY/CYTOLOG Y ORDERABLES Performing Organization Address [facility]/[place] [address] * UPPER GI ENDOSCOPY (09/04/2019 10:32 AM EDT) UPPER GI ENDOSCOPY [facility] Endoscopy Procedure Date: 09/04/2019 10:32 AM ? Patient Name: Vianney Cordero ? Date of : 1975 ? Age: 43 ? Order #: [id number] ? Instrument Name: [id number] ? Procedure: ? Upper GI endoscopy Indications: ? Dysphagia, Surveillance for ? malignancy due to personal history of ? Rodgers's esophagus Providers: ? Steve Ji MD, Sofie Box ? Shree, NIMCO, Danielle Shetty Referring : ?WANDY Block Medicines: [...] AM EDT Sonido [facility] * COLONOSCOPY (09/04/2019 10:31 AM EDT) COLONOSCOPY [facility] Endoscopy Procedure Date: 09/04/2019 10:31 AM ? Patient Name: Vianney Cordero ? Date of : 1975 ? Age: 43 ? Order #: [id number] ? Instrument Name: [id number] ? Procedure: ? Colonoscopy Indications: ? High risk colon cancer surveillance: ? Personal history of colonic polyps Patient Profile: ? This is a 43 year old female. Last ? Colonoscopy: 2018. Providers: ? Steve Ji MD, Sofie Box ? Shree, NIMCO, Danielle Frost MD: ?WANDY Block Requesting Provider: [...] preparation was evaluated using ? the BBPS ([place] Bowel Preparation ? Scale) with scores of: [...] CRNA) documented in this encounter Care Teams Conversion Developer Relationship Specialty Start Date End Date Sonido Cordoba PA [address] [place] [address] PCP - General Family Medicine 11/16/15 06/22/20 documented as of this encounter
--- OUTSIDE RECORDS SUMMARY | 2024-10-25 13:27 | XMS_ITS | Encounter Summary ---
Author Organization [facility] Address [facility] [place] [address] Care Team Providers Care Editor Publications Name Role Phone Sonido Cordoba Primary Care Provider +1- [phone] Encounter Details Date Type Department Care Team (Latest Contact Info) Description 09/03/2019 1:30 PM EDT - 09/03/2019 11:59 PM EDT Hospital Encounter XRay at [address] [place] [address] Lizbeth Guzman APRN [facility] [place] [address] Right foot pain Discharge Disposition: Home Social [...] 11/26/2024 8:45 AM EST [place] [address] Keri Avila [address] [place] [address] 12/31/2024 10:00 AM EST Office [place] [address] Mercy Amanda MD [facility] DR [facility] [address] 04/01/2025 2:00 PM EDT Office [place] [address] Erum Szymanski MD [facility] [place] [address] documented as of this encounter Procedures Procedure [...] contact the number below. Lizbeth Guzman APRN IMG DX ORDERABLES documented in this encounter Visit Diagnoses Diagnosis Right foot pain Pain in limb documented in this encounter Care Teams Editor Publications Relationship Specialty Start Date End Date Sonido Cordoba PA [address] [place] [address] PCP - General Family Medicine 11/16/15 06/22/20 documented as of this encounter
--- OUTSIDE RECORDS SUMMARY | 2024-10-25 13:27 | XMS_ITS | Encounter Summary ---
Author Organization Count Includes [facility] [address] Care Team Providers Care Emergency Vehicle Driver Name Role Phone Sonido Cordoba Primary Care Provider +1- [phone] Encounter Details Date Type Department Care Team (Late st Contact Info) Description 09/04/2019 8:45 AM EDT - 09/04/2019 9:45 AM EDT [place] [address] Steve Ji MD [facility] [place] [address] EGD, UPPER GI ENDOSCOPY (WRVU 2.09) Social [...] to be checked. Sunday-Sunday Same Day Endo [phone]-8p Otherwise contact [phone] and ask to speak to the classification control clerk ton container filler Follow up care is a harper part [...] complication. Informed Consent signed by patient (or financial foundations representative). documented in this encounter Plan of Treatment Upcoming Encounters Date Type Department Care Team (Late st Contact Info) Description 11/26/2024 8:45 AM EST [place] [phone] Keri Avila [address] [place] [address] 12/31/2024 10:00 AM EST Office [place] [phone] Mercy Amanda MD [facility] DR [facility] [place] [address] 04/01/2025 2:00 PM EDT Office [place] [phone] Erum Szymanski MD [facility] [place] [place] [address] documented as of this encounter Procedures Procedure Name Priority Date/Time Associated Diagnosis Comments SURGICAL PATHOLOGY REPORT Routine 09/04/2019 11:15 AM EDT SPECIMEN TO PATHOLOGY Routine 09/04/2019 11:15 AM EDT SPECIMEN TO PATHOLOGY Routine 09/04/2019 11:15 AM EDT SPECIMEN TO PATHOLOGY Routine 09/04/2019 11:15 AM EDT SPECIMEN TO PATHOLOGY Routine 09/04/2019 11:15 AM EDT SPECIMEN TO PATHOLOGY Routine 09/04/2019 11:15 AM EDT Colonoscopy, Biopsy ([id number]) 09/04/2019 10:39 AM EDT Adenomatous polyp of colon, unspecified part of colon 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 History of Helicobacter pylori infection Upper Gi Endoscopy, Biopsy (81332) 09/04/2019 10:39 AM EDT Adenomatous polyp of colon, unspecified part of colon 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 History of Helicobacter pylori infection Colonoscopy, Diagnostic (85832) 09/04/2019 10:39 AM EDT Adenomatous polyp of colon, unspecified part of colon 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 Location: 4T; 08; A The signing pathologist has (i) [...] Gomez MD Verified: ??09/05/2019 ?Pathologist Performed at: ??-[facility] Dept. of Pathology, [place], [place] CLINICAL INFORMATION Specimen Submitted: A - [...] labeled E1-E2. ??ejr 09/05/2019 2:04 PM EDT [facility] GI Biopsy 09/04/2019 11:1 5 [...] Y ORDERABLES Performing Organization Address [facility] Co de Phone Number [facility] [place] [address] * Specimen to Pathology (09/04/2019 11:15 AM EDT) AP Specimen 09/04/2019 11:1 5 AM EDT 09/04/2019 11:15 AM EDT Narrative [facility] - 09/04/2019 11:15 AM EDT Specimen requisition ordered. ??Separate Pathology report to follow Steve Ji MD PATHOLOGY/CYTOLOG Y ORDERABLES Performing Organization Address [facility] Co de Phone Number [place] [phone] * Specimen to Pathology (09/04/2019 11:15 AM EDT) AP Specimen 09/04/2019 11:1 5 AM EDT 09/04/2019 11:15 AM EDT Narrative [facility] - 09/04/2019 11:15 AM EDT Specimen requisition ordered. ??Separate Pathology report to follow Steve Ji MD PATHOLOGY/CYTOLOG Y ORDERABLES Performing Organization Address [facility]/[place] [address] * Specimen to Pathology (09/04/2019 11:15 AM EDT) AP Specimen 09/04/2019 11:1 5 AM EDT 09/04/2019 11:15 AM EDT Narrative [facility] - 09/04/2019 11:15 AM EDT Specimen requisition ordered. ??Separate Pathology report to follow Steve Ji MD PATHOLOGY/CYTOLOG Y ORDERABLES Performing Organization Address [facility] [place] [address] * Specimen to Pathology (09/04/2019 11:15 AM EDT) AP Specimen 09/04/2019 11:1 5 AM EDT 09/04/2019 11:15 AM EDT Narrative [facility] - 09/04/2019 11:15 AM EDT Specimen requisition ordered. ??Separate Pathology report to follow Steve Ji MD PATHOLOGY/CYTOLOG Y ORDERABLES Performing Organization Address [facility] [place] [address] * Specimen to Pathology (09/04/2019 11:15 AM EDT) AP Specimen 09/04/2019 11:1 5 AM EDT 09/04/2019 11:15 AM EDT Narrative [facility] - 09/04/2019 11:15 AM EDT Specimen requisition ordered. ??Separate Pathology report to follow Steve Ji MD PATHOLOGY/CYTOLOG Y ORDERABLES Performing Organization Address [facility] [place] [address] * UPPER GI ENDOSCOPY (09/04/2019 10:32 AM EDT) UPPER GI ENDOSCOPY [facility] Endoscopy Procedure Date: 09/04/2019 10:32 AM ? Patient Name: Vianney Cordero ? Date of : 1975 ? Age: 43 ? Order #: [id number] ? Instrument Name: [id number] ? Procedure: ? Upper GI endoscopy Indications: [...] * COLONOSCOPY (09/04/2019 10:31 AM EDT) COLONOSCOPY [facility] Endoscopy Procedure Date: 09/04/2019 10:31 AM ? Patient Name: Vianney Cordero ? Date of : 1975 ? Age: 43 ? Order #: [id number] ? Instrument Name: [id number] ? Procedure: ? Colonoscopy Indications: ? High [...] preparation was evaluated using ? the BBPS ([place] Bowel Preparation ? Scale) with scores of: [...] CRNA) documented in this encounter Care Teams Emergency Vehicle Driver Relationship Specialty Start Date End Date Sonido Cordoba PA [address] [place] [address] PCP - General Family Medicine 1/12/16 8/18/20 documented as of this encounter
--- OUTSIDE RECORDS SUMMARY | 2024-10-25 13:27 | XMS_ITS | Encounter Summary ---
[place] [address] Care Team Providers Care Rail Car Repairer Name Role Phone Sonido Cordoba Primary Care Provider +1- [phone] Reason for Referral * Physical Therapy (Routine) - Closed Specialty Diagnoses / Procedures Referred By Aric madrigal Referred To Contact Physical Therapy Diagnoses Peroneal tendinitis, right Lizbeth Guzman APRN [facility] [place] [address] Physical Therapy, Harish Moore TRUDI ARCE,[address] [address] Referral ID Status Reason Start Date Expiration Date V isits Requested Visits Authorized [id number] Closed Evaluate and Treat 09/30/2019 03/28/2020 24 24 Reason for Visit * Reason Onset Date Comments Results 09/30/2019 Encounter Details Date Type Department Care Team (Late st Contact Info) Description 09/30/[address] [place] [phone] Lizbeth Guzman APRN [facility] [place] [address] Results Social History Tobacco Use Types Packs/Day [...] referral sent to Harish العلي's PT in [facility]. Routed to their office via [email or web address]. Vianney Cordero verbalized understanding. No further questions [...] 11/26/2024 8:45 AM EST Appointment [place] [phone] [address] [address] 12/31/2024 10:00 AM EST Office Visit [place] [phone] Mercy Amanda MD [facility] [place] [address] 04/01/2025 2:00 PM EDT Office Visit [place] [address] Erum Szymanski MD [facility] [place] [address] Scheduled Referrals Name Type Priority Associated Diagnoses Orde r Schedule Referral to Physical Therapy Outpatient Referral Routine Peroneal tendinitis, right Ordered: 09/30/2019 documented as of this encounter Visit Diagnoses Diagnosis Peroneal tendinitis, right- Primary documented in this encounter Care Teams Rail Car Repairer Relationship Specialty Start Date End Date Sonido Cordoba PA [address] [place] [address] PCP - General Family Medicine 11/16/15 06/22/20 documented as of this encounter
--- OUTSIDE RECORDS SUMMARY | 2024-10-25 13:27 | XMS_ITS | Encounter Summary ---
Author Organization [place] [address] Care Team Providers Care Medical Surgical Tech Name Role Phone Sonido Cordoba Primary Care Provider +1- [phone] Reason for Visit * Reason Onset Date Comments Appointment 09/27/2020 Encounter Details Date Type Department Care Team (Late st Contact Info) Description 09/27/2020 Telephone [place] [phone] Gracy Ellis PA [facility] [place] [address] Appointment Social History Tobacco Use Types Packs/Day [...] 11/26/2024 8:45 AM EST Appointment Ultrasound at [place] [phone] Keri Avila [address] [employer] [address] 12/31/2024 10:00 AM EST Office Visit Weight Center at [place] [phone] Mercy Amanda MD [facility] [address] [place] [address] 04/01/2025 2:00 PM EDT Office Visit Gastroenterology at [place] [phone] Erum Szymanski MD [facility] [place] [address] documented as of this encounter Visit Diagnoses Not on filedocumented in this encounter Care Teams Medical Surgical Tech Relationship Specialty Start Date End Date Sonido Cordoba PA [address] [employer] [place] [address] PCP - General Family Medicine 07/06/20 documented as of this encounter
--- OUTSIDE RECORDS SUMMARY | 2024-10-25 13:27 | XMS_ITS | Encounter Summary ---
[place] [address] Care Team Providers Care Kilnman Name Role Phone Sonido Cordoba Primary Care Provider +1- [phone] Encounter Details Date Type Department Care Team (Late st Contact Info) Description 09/15/2020 Telephone [place] [address] Adriana Stoll RN Social History [...] ESTSummary: Return call Return call placed to [facility] Communicated Dr. Jefferson's orders as follows: please begin passive ROM if she is sitting in plantar flexion. ??Only restrictions are to inversion/eversion. * Telephone Encounter - Adriana Stoll - 09/15/2020 4:12 PM ESTSummary: Call 08/12/2020 (Li( Right peroneal brevis tendon debridement/tubularization [facility] [place], [facility] PT calls in today with concerns [...] 11/26/2024 8:45 AM EST Appointment Ultrasound at [place] [phone] Keri Avila [address] [employer] [address] 12/31/2024 10:00 AM EST Office Visit Weight Center at [place] [phone] Mercy Amanda MD [facility] DR [facility] [address] 04/01/2025 2:00 PM EDT Office [place] [phone] Erum Szymanski MD [facility] [place] [address] documented as of this encounter Visit Diagnoses Not on filedocumented in this encounter Care Teams Kilnman Relationship Specialty Start Date End Date Sonido Cordoba PA [address] [place] [address] PCP - General Family Medicine 07/06/20 documented as of this encounter
--- OUTSIDE RECORDS SUMMARY | 2024-10-25 13:27 | XMS_ITS | Encounter Summary ---
Author Organization Formerly [facility], [facility] [place] [address] Care Team Providers Care Anesthesia Tech Name Role Phone Sonido Cordoba Primary Care Provider +1- [phone] Encounter Details Date Type Department Care Team (Late st Contact Info) Description 09/04/2019 10:33 AM EDT Anesthesia [place] [phone] Dane Shoemaker MD [facility] DR ANESTHESIOLOGY [place] [address] Anesthesia Record Procedure Summary Procedure Name Responsible [...] (LDA cleanup utility RA#[id number]) 06/01/15 0000 by Kirlil Viramontes RN 07/03/22 1715 by Kimber Santiago (RETIRED) Peripheral IV Line - Single Lumen 09/04/19; 0939; metacarpal vein (top of hand), right; cetx-vyj-wkrffq catheter system; 22 gauge; will mayen rn; [...] Procedure Summary Date: 09/04/19 Room / Location: [facility]O 3 / [facility] Anesthesia Start: 1033 Anesthesia Stop: [...] All Anesthesia Providers: Anesthesiologist: Dane Shoemaker MD JAVA SECURITY ARCHITECT: Arabella Duenas CRNA Vitals Value Taken Time BP 119/72 09/04/2019 11:45 AM Temp Pulse 76 09/04/2019 11:22 AM Resp 20 09/04/2019 11:22 AM SpO2 100 % 09/04/2019 11:55 AM Pain Level 0 09/04/2019 11:22 AM Vitals shown include unvalidated device data. Patient Location: PACU/[facility] Level of Consciousness: Conscious but Sleepy [...] 3.66) performed by Erum Szymanski MD at [facility] END[facility]COPY ??? PRO COLONOSCOPY, REMV LESN, SNARE N/A 08/21/2018 COLONOSCOPY, POLYPECTOMY, REMOVAL LESION BY SNARE (WRVU 4.67) performed by Erum Szymanski MD at [facility] ENDOSCOPY ? ? PRO CYSTO W URETEROSCOPY &/OR PYELOSCOPY, DX Right 06/01/2015 CYSTOURETEROSCOPY, DIAGNOSTIC performed by Darius Nuñez Jr., MD at [facility] OR ??? PRO CYSTOSCOPY, INSERT URETERAL STENT Right 06/01/2015 CYSTO, STENT PLACEMENT performed by Darius Nuñez Jr., MD at [facility] OR ??? PRO LAP, ESOPHAGOGAST FUNDOPLASTY N/A 04/05/2015 LAPAROSCOPIC TYESHA FUNDOPLASTY performed by Valentín Moura MD at [facility]IN OR ??? PRO PERCUT DILATN RENAL TRACT Right 06/01/2015 PERCUTANEOUS INTRO GUIDE WIRE TO ACCESS RENAL PELVIS,AND OR URETER, W\DILATION performed by Darius Nuñez Jr., MD at [facility] OR ??? PRO PERCUT REMV KID STONE, UP TO 2 CM Right 06/01/2015 NEPHROLITHOTOMY, (PCNL) PERCUTANEOUS performed by Darius Nuñez Jr., MD at [facility] OR ??? PRO UPPER GI ENDOSCOPY, BIOPSY N/A 01/27/2015 EGD WITH BIOPSY performed by Brandt Barlow MD at [facility] ??? PRO UPPER GI ENDOSCOPY, BIOPSY N/A 02/28/2016 EGD WITH BIOPSY performed by Brandt Barlow MD at [facility] ??? PRO UPPER GI ENDOSCOPY, BIOPSY N/A 09/04/2016 EGD WITH BIOPSY performed by Brandt Barlow MD at [facility] ??? PRO UPPER GI ENDOSCOPY, BIOPSY N/A 09/24/2017 EGD WITH BIOPSY (WRVU 2.49) performed by Brandt Barlow MD at [facility] ??? PRO UPPER GI ENDOSCOPY, BIOPSY N/A 08/21/2018 EGD WITH BIOPSY (WRVU 2.49) performed by Erum Szymanski MD at [facility] ??? TONSILLECTOMY Social History Tobacco [...] risks discussed with patient. Plan discussed with JAVA SECURITY ARCHITECT. PAT Clinic Note documented in this encounter Plan of Treatment Upcoming Encounters Date Type Department Care Team (Late st Contact Info) Description 11/26/2024 8:45 AM EST [place] [address] Keri Avila [address] [place] [address] 12/31/2024 10:00 AM EST Office [place] [address] Mercy Amanda MD [facility] [address] 04/01/2025 2:00 PM EDT Office [place] [address] Erum Szymanski MD [facility] [place] [address] documented as of this encounter Visit Diagnoses [...] mL/hr documented in this encounter Care Teams Anesthesia Tech Relationship Specialty Start Date End Date Sonido Cordoba PA [address] [place] [address] PCP - General Family Medicine 11/16/15 06/22/20 documented as of this encounter
--- OUTSIDE RECORDS SUMMARY | 2024-10-25 13:27 | XMS_ITS | Encounter Summary ---
[place] [address] Care Team Providers Care City Library Director Name Role Phone Sonido Cordoba Primary Care Provider +1- [phone] Encounter Details Date Type Department Care Team (Late st Contact Info) Description 08/25/2020 Tele[place] [address] Awais Harris Social History Tobacco [...] 11/26/2024 8:45 AM [place] [address] Keri Avila [address] [place] [address] 12/31/2024 10:00 AM EST Office [place] [address] Mercy Amanda MD [facility] [address] [facility] [place] [address] 04/01/2025 2:00 PM EDT Office [place] [address] Erum Szymanski MD [facility] [place] [address] documented as of this encounter Visit Diagnoses Not on filedocumented in this encounter Care Teams City Library Director Relationship Specialty Start Date End Date Sonido Cordoba PA [address] [place] [address] PCP - General Family Medicine 07/06/20 documented as of this encounter
--- OUTSIDE RECORDS SUMMARY | 2024-10-25 13:27 | XMS_ITS | Encounter Summary ---
Author Organization [place] [address] Care Team Providers Care Pattern Wheel Maker Name Role Phone Sonido Cordoba Primary Care Provider +1- [phone] Reason for Visit * Auth/Cert Specialty Diagnoses / Procedures Referred By Aric madrigal Referred To Contact Diagnoses Right peroneal tendon tear Procedures PRO REPAIR PERONEAL TENDONS PERONEAL TENDON REPAIR (WRVU 7.35) Referral ID Status Reason Start Date Expiration Date Visits Re quested Visits Authorized [id number] 1 1 Encounter Details Date Type Department Care Team (Late st Contact Info) Description 08/12/2020 8:50 AM EDT - 08/12/2020 10:34 AM EDT Surgery [place] [address] Mani Rowe MD [facility] [place] [address] PERONEAL TENDON REPAIR (WRVU 7.35) Social History [...] closest emergency room or call the hospital vallez filter operator at [phone] and ask for physician lead electrical controls engineer covering for your physician. Questions or problems after 5pm or on a weekend: Call the [facility] vallez filter operator at and ask for the physician lead electrical controls engineer covering for your doctor. At 8:10 am [...] after hours and ask for the anesthesiologist lead electrical controls engineer. * Patient Instructions* Noé Almanza MD - 08/12/2020 8:52 AM EDT Orthopaedic Surgery Discharge Instructions PROCEDURE: Right Peroneal Tendon Repair MEDICATION: ?? If you need a renewal of your pain medication, please contact the clinic at [phone]. PRESCRIPTION RENEWAL REQUEST CAN TAKE UP TO [...] taking them. You should also take an nuqp-ste-hdrsbwq stool softener, colace or senna, to facilitate [...] You will have a follow-up appointment with [facility] as indicated below in Future Appointment and Orders. Please call to verify your appointment. Future Appointments Date Time Provider Department Center 08/25/2020 10:30 AM Gracy Ellis PA [facility]C [facility] 09/29/2020 8:30 AM [facility] RO[facility] 5 [facility] Rad 09/29/2020 9:30 AM Darius Nuñez Jr., MD [facility] If you have questions or concerns: Sunday [...] Both are aware of getting RX at [facility]. 1104-- tall walker boot applied by Caleb León RN. Pt taken out to private car, crutches sent with pt. Assisted out by nursing staff * Berkley Logan RN - 08/11/2020 3:26 PM EDT During this call the patient was questioned regarding travel outside of [place], fever, cough, SOB or other illness [...] again, temperature will be taken, patient and caregiver/cdl company flatbed driver will be given a mask to wear the entire time they are in the [facility] building. * Daysi Lizarraga RN - 08/05/2020 2:49 PM EDT During this call the patient was questioned regarding travel outside of [facility], fever, cough, SOB or other illness [...] again, temperature will be taken, patient and caregiver/cdl company flatbed driver will be given a mask to [...] Rowe MD - 08/12/2020 10:09 AM EDT [facility] Operative Note Patient Name: Vianney Cordero : [id number] MR#: [id number] Case Date: 08/12/2020 Surgeon: Surgeon(s) and Role: [...] 11/26/2024 8:45 AM EST Appointment [place] [address] Keri Avila [address] [place] [address] 12/31/2024 10:00 AM EST Office [place] [address] Mercy Amanda MD [facility] [address] 04/01/2025 2:00 PM EDT Office Visit [place] [address] Erum Szymanski MD [facility] [place] [address] documented as of this encounter Procedures Procedure Name Priority Date/Time Associated Diagnosis Comments Repair Peroneal Tendons (17203) 08/12/2020 8:53 AM EDT Right peroneal tendon [...] of Surgery (Day of Procedure) 08 (New Bag - Prov ider: Yue Brito RN) PRN Medication Order 08/10/2020 08/11/2020 08/12/2020 acetaminophen (Tylenol) tablet 975 mg 975 mg, Oral, EVERY 6 HOURS PRN, Starting on Brittny 08/12/20 at 1005, Until Brittny 10/8/20 at 1306, Pain, Maximum dose of acetaminophen is 4000 mg from all sources in 24 hours. When ordered for pain, acetaminophen should be given even when other ordered pain medications are indicated. , Routine fentaNYL (PF) 50 mcg/mL injection (CANCELED) 50 mcg, Intravenous, EVERY 5 MIN PRN, Starting on Brittny 10/8/20 at 0806, Until Brittny 10/8/20 at 1104, Pain, or prior to injection [...] on Brittny 10/20 at 0806, Until Brittny 108/20 at 1104, Sleep, or prior to injection of local anesthetic, Hold for delirium/agitation. (Maximum dose 5 mg)., Day of Surgery (Day of Procedure), Routine 08 (Given - Provid er: Yue Brito RN)825 (Given - Provider: Yue Brito RN) traMADoL (Ultram) tablet 50 mg 50 mg, Oral, EVERY 6 HOURS PRN, Starting on Brittny 1020 at 1004, Until Brittny 10/20 at 1306, Pain, Routine documented in this encounter Care Teams Pattern Wheel Maker Relationship Specialty Start Date End Date Sonido Cordoba PA [address] [place] [address] PCP - General Family Medicine 07/06/20 documented as of this encounter
--- OUTSIDE RECORDS SUMMARY | 2024-10-25 13:27 | XMS_ITS | Encounter Summary ---
Author Organization [facility] [place] [address] Care Team Providers Care Metal Pourer Name Role Phone Sonido Cordoba Primary Care Provider +1- [phone] Reason for Visit * Reason Onset Date Comments Appointment 01/09/2020 Encounter Details Date Type Department Care Team (Late st Contact Info) Description 01/09/2020 Telephone [place] [phone] Lizbeth Guzman APRN [facility] [place] [address] Appointment Social History Tobacco Use Types Packs/Day [...] the original note were not included. Per Christopher Guzman's message below, LM #1 to call to schedule in either Dr. Martinez's or Dr. 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 [facility] Nurse ?? 01/09/20 10:11 AM Ok to see Li or Juan to discuss surgical options for a split thickness tear of the peroneous brevis failure of conservative tx. CHRISTOPHER Steiner documented in this encounter Plan of Treatment Upcoming Encounters Date Type Department Care Team (Late st Contact Info) Description 11/26/2024 8:45 AM EST Appointment [place] [address] [address] [address] 12/31/2024 10:00 AM EST Office [place] [address] [facility] [address] [facility] [address] 04/01/2025 2:00 PM EDT Office [place] [address] [facility] [place] [address] documented as of this encounter Visit Diagnoses Not on filedocumented in this encounter Care Teams Metal Pourer Relationship Specialty Start Date End Date Sonido Cordoba PA [address] [place] [address] PCP - General Family Medicine 11/16/15 06/22/20 documented as of this encounter
--- OUTSIDE RECORDS SUMMARY | 2024-10-25 13:27 | XMS_ITS | Encounter Summary ---
[place] [address] Care Team Providers Care Clinical Documentation Developer Name Role Phone Sonido Cordoba Primary Care Provider +1- [phone] Reason for Visit * Reason Onset Date Comments Prior Authorization 10/12/2020 Encounter Details Date Type Department Care Team (Late st Contact Info) Description 10/12/2020 Telephone [place] [address] Lucille Albert CCMA Prior Authorization Social History [...] Prior Authorization 4L Gastroenterology / [place] [address] Subscriber Insurance: [place] Medicaid Phone: Fax: Physician: Erum Szymanski Return Pharmacy: [facility] Fax: Medication Requested: Pantoprazole Strength: 40mg [...] 11/26/2024 8:45 AM EST Appointment Ultrasound at [place] [phone] Keri Avila [address] [place] [address] 12/31/2024 10:00 AM EST Office [place] [address] Mercy Amanda MD [facility] DR [facility] [place] [address] 04/01/2025 2:00 PM EDT Office [place] [address] Erum Szymanski MD [facility] [place] [address] documented as of this encounter Visit Diagnoses Not on filedocumented in this encounter Care Teams Clinical Documentation Developer Relationship Specialty Start Date End Date Sonido Cordoba PA [address] [place] [address] PCP - General Family Medicine 07/06/20 documented as of this encounter
--- OUTSIDE RECORDS SUMMARY | 2024-10-25 13:27 | XMS_ITS | Encounter Summary ---
[place] [address] Care Team Providers Care Egg Candler Name Role Phone Sonido Cordoba Primary Care Provider +1- [phone] Reason for Visit * Reason Onset Date Comments Medication Refill 08/12/2020 Encounter Details Date Type Department Care Team (Late st Contact Info) Description 08/12/2020 Refill [place] [address] Erum Szymanski MD [facility] [place] [address] Gastroesophageal reflux disease with esophagitis Social History [...] 8:45 AM EST Appointment [place] [address] Keri Avila [address] [place] [address] 12/31/2024 10:00 AM EST Office [place] [address] Mercy Amanda MD [facility] DR [facility] [address] 04/01/2025 2:00 PM EDT Office Visit [place] [address] Erum Szymanski MD [facility] [place] [address] documented as of this encounter Visit Diagnoses Diagnosis Gastroesophageal reflux disease with esophagitis documented in this encounter Care Teams Egg Candler Relationship Specialty Start Date End Date Sonido Cordoba PA [address] [place] [address] PCP - General Family Medicine 07/06/20 documented as of this encounter"
--- OUTSIDE RECORDS SUMMARY | 2024-10-25 13:27 | XMS_ITS | Encounter Summary ---
Author Organization [facility] [place] [address] Care Team Providers Care Cabbage Salter Name Role Phone Sonido Cordoba Primary Care Provider +1- [phone] Reason for Visit * Diagnostic Test (Routine) - Closed Specialty Diagnoses / Procedures Referred By Aric madrigal Referred To Contact Radiology Diagnoses Peroneal tendinitis, right Procedures MRI Ankle wo Contrast Right MRI Foot wo Contrast Right Lizbeth Guzman FOOT PIECE ASSEMBLER [facility] [place] [address] [place] [address] Referral ID Status Reason Start Date Expiration Date V isits Requested Visits Authorized [id number] Closed Specialty Service Requested 1 1 Encounter Details Date Type Department Care Team (Latest Contact Info) Description 09/29/2019 3:02 PM EST - 09/29/2019 11:59 PM [facility] Hospital [place] [address] Lizbeth Guzman [facility] [place] [address] Discharge Disposition: Home Social History [...] 11/26/2024 8:45 AM EST [place] [address] Keri Avila [address] [place] [address] 12/31/2024 10:00 AM EST Office [place] [address] Mercy Amanda MD [facility] [address] [facility] [address] 04/01/2025 2:00 PM EDT Office [place] [address] Erum Szymanski MD [facility] [place] [address] documented as of this encounter [...] below. ? Electronically signed by: Tammy Krishnamurthy [facility] ([phone]), at 09/30/2019 8:46 AM Narrative 09/30/2019 8:46 [...] number below. Electronically signed by: Tammy Krishnamurthy [facility]([phone]), at 09/30/2019 8:46 AM Lizbeth Guzman APRN IMG MRI ORDERABLES documented in this encounter Visit Diagnoses Not on filedocumented in this encounter Care Teams Cabbage Salter Relationship Specialty Start Date End Date Sonido Cordoba PA [address] [place] [address] PCP - General Family Medicine 11/16/15 06/22/20 documented as of this encounter
--- OUTSIDE RECORDS SUMMARY | 2024-10-25 13:27 | XMS_ITS | Encounter Summary ---
[place] [address] Care Team Providers Care Machinery Cleaner Name Role Phone Sonido Cordoba Primary Care Provider +1- [phone] Reason for Visit * Reason Onset Date Comments Prior Authorization 03/18/2020 Encounter Details Date Type Department Care Team (Late st Contact Info) Description 03/18/2020 Telephone [place] [address] Kaia Cherry CCMA Prior Authorization Social History [...] Prior Authorization 4L Gastroenterology / [place] [address] Subscriber Insurance: [place] Medicaid Phone: Fax: Physician: Erum Szymanski NPI: Return Pharmacy: [facility] Phone: Fax: Medication Requested: Pantoprazole Strength: 20mg Frequency: Twice daily Disp.: 60 Refills: Currently taking: Diagnosis for this medication: Barretts, GERD ICD-10 code: Prior medications trialed in this patient: Pantoprazole 40mg once daily Medication: Outcome/Adverse Reactions: Decision: Approved Tracking number/Case number/Reference number:[id number] Effective date: Start:03/18/2020 End:03/18/2021 documented in this encounter Plan of Treatment Upcoming Encounters Date Type Department Care Team (Late st Contact Info) Description 11/26/2024 8:45 AM EST Appointment Ultrasound at [address] Keri Avila [address] [employer] [address] 12/31/2024 10:00 AM EST [place] [address] Mercy Amanda MD [facility] [address] [facility] [address] 04/01/2025 2:00 PM EDT Office [place] [address] Erum Szymanski MD [facility] [place] [address] documented as of this encounter Visit Diagnoses Not on filedocumented in this encounter Care Teams Machinery Cleaner Relationship Specialty Start Date End Date Sonido Cordoba PA [address] [employer] [address] PCP - General Family Medicine 11/16/15 06/22/20 documented as of this encounter
--- OUTSIDE RECORDS SUMMARY | 2024-10-25 13:27 | XMS_ITS | Encounter Summary ---
Author Organization [facility] [place] [address] Care Team Providers Care Water Tender Name Role Phone Sonido Cordoba Primary Care Provider +1- [phone] Encounter Details Date Type Department Care Team (Late st Contact Info) Description 12/12/2020 Orders [place] [address] Erum Szymanski MD [facility] [address] Gastroesophageal reflux disease with esophagitis, unspecified whether [...] 11/26/2024 8:45 AM EST Appointment [place] [address] Keri Avila [address] [place] [address] 12/31/2024 10:00 AM EST Office Visit Weight Center at [place] [phone] Mercy Amnada MD [facility] [address] [facility] [address] 04/01/2025 2:00 PM EDT Office Visit [place] [address] Erum Szymanski MD [facility] [address] documented as of this encounter Visit Diagnoses Diagnosis Gastroesophageal reflux disease with esophagitis, unspecified whether hemorrhage documented in this encounter Care Teams Water Tender Relationship Specialty Start Date End Date Sonido Cordoba PA [address] [place] [address] PCP - General Family Medicine 07/06/20 documented as of this encounter
--- OUTSIDE RECORDS SUMMARY | 2024-10-25 13:27 | XMS_ITS | Encounter Summary ---
Author Organization [facility] [place] [address] Care Team Providers Care Steel Analyst Name Role Phone Sonido Cordoba Primary Care Provider +1- [phone] Encounter Details Date Type Department Care Team (Latest Contact Info) Description 10/08/2020 10:30 AM EST Office Visit [place] [phone] Erum Szymanski MD [facility] [place] [address] Gastroesophageal reflux disease with esophagitis, unspecified whether [...] Szymanski MD - 10/08/2020 10:[address] [facility] Section of Gastroenterology and Hepatology Follow-Up [...] Out of work now, no longer at [employer]. B - Bowl of cereal with almond [...] performed by Erum Szymanski MD at [facility] ENDOSCOPY ??? PRO COLONOSCOPY, BIOPSY N/A 09/04/2019 COLONOSCOPY FLEXIBLE, WITH BX (WRVU 3.66) performed by Steve Ji MD at [facility] ENDOSCOPY ??? PRO COLONOSCOPY, DIAGNOSTIC N/A 09/04/2019 COLONOSCOPY, DIAGNOSTIC performed by Steve Ji MD at [facility] ENDOSCOPY ??? PRO COLONOSCOPY, REMV LESN, SNARE N/A 08/21/2018 COLONOSCOPY, POLYPECTOMY, REMOVAL LESION BY SNARE (WRVU 4.67) performed by Erum Szymanski MD at [facility] ENDOSCOPY ? ? PRO CYSTO W URETEROSCOPY &/OR PYELOSCOPY, DX Right 06/01/2015 CYSTOURETEROSCOPY, DIAGNOSTIC performed by Darius Nuñez Jr., MD at [facility] MAIN OR ??? PRO CYSTOSCOPY, INSERT URETERAL STENT Right 06/01/2015 CYSTO, STENT PLACEMENT performed by Darius Nuñez Jr., MD at [facility] MAIN OR ??? PRO LAP, ESOPHAGOGAST FUNDOPLASTY N/A 04/05/2015 LAPAROSCOPIC TYESHA FUNDOPLASTY performed by Valentín Moura MD at [facility] MAIN OR ??? PRO PERCUT DILATN RENAL TRACT Right 06/01/2015 PERCUTANEOUS INTRO GUIDE WIRE TO ACCESS RENAL PELVIS,AND OR URETER, W\DILATION performed by Darius Nuñez Jr., MD at [facility] MAIN OR ??? PRO PERCUT REMV KID STONE, UP TO 2 CM Right 06/01/2015 NEPHROLITHOTOMY, (PCNL) PERCUTANEOUS performed by Darius Nuñez Jr., MD at [facility] MAIN OR ??? PRO REPAIR PERONEAL TENDONS Right 08/12/2020 PERONEAL TENDON REPAIR (WRVU 7.35) performed by Mani Jefferson MD at [facility] OSC ??? PRO UPPER GI ENDOSCOPY, BIOPSY N/A 01/27/2015 EGD WITH BIOPSY performed by Brandt Barlow MD at [facility] ENDOSCOPY ??? PRO UPPER GI ENDOSCOPY, BIOPSY N/A 02/28/2016 EGD WITH BIOPSY performed by Brandt Barlow MD at [facility] ENDOSCOPY ??? PRO UPPER GI ENDOSCOPY, BIOPSY N/A 09/04/2016 EGD WITH BIOPSY performed by Brandt Barlow MD at [facility] ENDOSCOPY ??? PRO UPPER GI ENDOSCOPY, BIOPSY N/A 09/24/2017 EGD WITH BIOPSY (WRVU 2.49) performed by Brandt Barlow MD at [facility] ENDOSCOPY ??? PRO UPPER GI ENDOSCOPY, BIOPSY N/A 08/21/2018 EGD WITH BIOPSY (WRVU 2.49) performed by Erum Szymanski MD at [facility] ENDOSCOPY ??? PRO UPPER GI ENDOSCOPY, BIOPSY N/A 09/04/2019 UPPER GASTROINTESTINAL ENDOSCOPY,WITH BIOPSY SINGLE OR MULTIPLE (WRVU 2.49) performed by Steve Ji MD at [facility] ENDOSCOPY ??? PRO UPPER GI ENDOSCOPY, DIAGNOSTIC N/A 09/04/2019 EGD, UPPER GI ENDOSCOPY performed by Steve Ji MD at [facility] ENDOSCOPY ??? TONSILLECTOMY Social History Socioeconomic History [...] file Gets together: Not on file Attends pentecostalism service: Not on file Active member of [...] Erum Szymanski MD 10/08/20 Erum Szymanski MD Ladle Car Operatorrecapper Section of Gastroenterology and Hepatology [email or web address] ([email or web address]) documented in this encounter Plan of Treatment Upcoming Encounters Date Type Department Care Team (Late st Contact Info) Description 11/26/2024 8:45 AM EST Appoint[place] [address] RubyDiamondKeri Sanches [address] [place] [address] 12/31/2024 10:00 AM EST Office Visit Weight Center at [place] [phone] Mercy Amanda MD [facility] [address] 04/01/2025 2:00 PM EDT Office Visit Gastroenterology at [place] [phone] Erum Szymanski MD [facility] [place] [address] documented as of this encounter Visit Diagnoses Diagnosis Gastroesophageal reflux disease with esophagitis, unspecified whether hemorrhage 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
--- OUTSIDE RECORDS SUMMARY | 2024-10-25 13:27 | XMS_ITS | Encounter Summary ---
Author Organization [facility] [place] [address] Care Team Providers Care Supervisor Drilling And Shooting Name Role Phone Sonido Cordoba Primary Care Provider +1- [phone] Reason for Referral * Physical Therapy (Routine) - Specialty Diagnoses / Procedures Referred By Aric madrigal Referred To Contact Physical Therapy Diagnoses Peroneal tendon tear, right, subsequent encounter Mani Jefferson MD [facility] ORTHOPAEDIC [place] [address] Referral ID Status Reason Start Date Expiration Date V isits Requested Visits Authorized [id number] Evaluate and Treat 09/09/2020 03/08/2021 20 20 Reason for Visit * Reason Onset Date Comments Referral 09/09/2020 Encounter Details Date Type Department Care Team (Late st Contact Info) Description 09/09/2020 Telephone [place] [phone] Mani Jefferson MD [facility] ORTHOPAEDIC [place] [address] Referral Social History Tobacco Use [...] therapist? Vianney Cordero Best call back number: [phone] Best time to call back between 8:00 [...] (This message should be forwarded to the [facility]TH[facility] CHIEF OPERATOR REFORMER pool.) documented in this encounter Plan of Treatment Upcoming Encounters Date Type Department Care Team (Late st Contact Info) Description 11/26/2024 8:45 AM EST [place] [phone] Keri Avila [address] [place] [address] 12/31/2024 10:00 AM EST Office [place] [phone] Mercy Amanda MD [facility] [address] [facility] [place] [address] 04/01/2025 2:00 PM EDT Office [place] [address] Erum Szymanski MD [facility] [place] [address] Scheduled Referrals Name Type Priority Associated Diagnoses Orde r Schedule Referral to Physical Therapy Outpatient Referral Routine Peroneal tendon tear, right, subsequent encounter Ordered: 09/09/2020 documented as of this encounter Visit Diagnoses Diagnosis Peroneal tendon tear, right, subsequent encounter documented in this encounter Care Teams Supervisor Drilling And Shooting Relationship Specialty Start Date End Date Sonido Cordoba PA [address] [place] [address] PCP - General Family Medicine 07/06/20 documented as of this encounter
--- OUTSIDE RECORDS SUMMARY | 2024-10-25 13:27 | XMS_ITS | Encounter Summary ---
Author Organization [facility] [place] [address] Care Team Providers Care Deputy Controller Name Role Phone Sonido Cordoba Primary Care Provider +1- [phone] Encounter Details Date Type Department Care Team (Late st Contact Info) Description 05/05/2020 Orders [place] [address] Mani Jefferson MD [facility] [place] [address] Peroneal tendon tear, right, subsequent encounter (Primary [...] 11/26/2024 8:45 AM EST Appoint[place] [address] Dandrepedro luisnicTommyKeri [address] [place] [address] 12/31/2024 10:00 AM EST Office [place] [address] Mercy Amanda MD [facility] DR [facility] [address] 04/01/2025 2:00 PM EDT Office [place] [address] Erum Szymanski MD [facility] [place] [address] Scheduled Orders Name Type Priority Associated Diagnoses Orde r Schedule PERONEAL TENDON REPAIR Procedures Routine One Time for 1 Occurrences starting 05/05/2020 until 05/05/2020 documented as of this encounter Visit Diagnoses Diagnosis Peroneal tendon tear, right, subsequent encounter- Primary documented in this encounter Care Teams Deputy Controller Relationship Specialty Start Date End Date Sonido Cordoba PA [address] [place] [address] PCP - General Family Medicine 11/16/15 06/22/20 documented as of this encounter
--- OUTSIDE RECORDS SUMMARY | 2024-10-25 13:27 | XMS_ITS | Encounter Summary ---
Author Organization [facility] [place] [address] Care Team Providers Care Janitor And Cleaner Name Role Phone Sonido Cordoba Primary Care Provider +1- [phone] Reason for Visit * Reason Comments Follow Up Surgery 08-12-20 right perone al tendon repair // DOI 08/2019 Encounter Details Date Type Department Care Team (Late st Contact Info) Description 09/24/2020 11:30 AM EST Office [place] [address] Gracy Ellis PA [facility] [place] [address] Peroneal tendon tear, right, subsequent encounter Social [...] documented in this encounter Progress Notes * Garcy Ellis PA - 09/24/2020 11:30 AM EST PATIENT NAME: Vianney Cordero AGE: 44 y.o. MR#: [id number] DATE OF VISIT: 09/24/2020 CHIEF COMPLAINT: 6 [...] doing well. She has been working with [facility] physical therapy. Her pain has been [...] now roughly 6 weeks out [place] peroneal brevis tendon debridement/tubularization. Doing well. [...] 11/26/2024 8:45 AM EST [place] [address] Margarita Keri [address] [place] [address] 12/31/2024 10:00 AM EST Office [place] [phone] Mercy Amanda MD [facility] [address] [facility] [address] 04/01/2025 2:00 PM EDT Office [place] [phone] Erum Szymanski MD [facility] [place] [address] documented as of this encounter Visit Diagnoses Diagnosis Peroneal tendon tear, right, subsequent encounter documented in this encounter Care Teams Janitor And Cleaner Relationship Specialty Start Date End Date Sonido Cordoba PA [address] [place] [address] PCP - General Family Medicine 07/06/20 documented as of this encounter
--- OUTSIDE RECORDS SUMMARY | 2024-10-25 13:27 | XMS_ITS | Encounter Summary ---
[place] [address] Care Team Providers Care Vulcanizing Press Operator Name Role Phone Sonido Cordoba Primary Care Provider +1- [phone] Encounter Details Date Type Department Care Team (Late st Contact Info) Description 03/09/2020 Telephone [place] [address] Sabiha Vincent Social History Tobacco [...] Yesterday Message Contents Erum Szymanski MD P [facility] Gastro Ibd Manager Demand ?? Thank you! Erum Left documented in this encounter Plan of Treatment Upcoming Encounters Date Type Department Care Team (Late st Contact Info) Description 11/26/2024 8:45 AM EST [place]oint[place] [address] DandreJustus Keri [address] [place] [address] 12/31/2024 10:00 AM EST Office [place] [phone] Mercy Amanda MD [facility] [address] [place] [address] 04/01/2025 2:00 PM EDT Office [place] [phone] Erum Szymanski MD [facility] [place] [address] documented as of this encounter Visit Diagnoses Not on filedocumented in this encounter Care Teams Vulcanizing Press Operator Relationship Specialty Start Date End Date Sonido Cordoba PA [address] [place] [address] PCP - General Family Medicine 11/16/15 06/22/20 documented as of this encounter
--- OUTSIDE RECORDS SUMMARY | 2024-10-25 13:27 | XMS_ITS | Encounter Summary ---
Author Organization [facility] [place] [address] Care Team Providers Care Line Tender Name Role Phone Sonido Cordoba Primary Care Provider +1- [phone] Reason for Visit * Reason Comments Pre-op Exam right peroneal tendo n repair vs. tendodesis vs. debridement DOS 08/12/20 Encounter Details Date Type Department Care Team (Late st Contact Info) Description 07/06/2020 10:20 AM EDT Office [place] [address] Mani Jefferson MD [facility] DR ORTHOPAEDIC [place] [address] Peroneal tendon tear, right, subsequent encounter Social [...] 11/26/2024 8:45 AM EST [place] [phone] Keri Avila [address] [place] [address] 12/31/2024 10:00 AM EST Office [place] [phone] Mercy Amanda MD [facility] [address] [facility] [place] [address] 04/01/2025 2:00 PM EDT Office [place] [address] Erum Szymanski MD [facility] DR [place] [address] documented as of this encounter Visit Diagnoses Diagnosis Peroneal tendon tear, right, subsequent encounter documented in this encounter Care Teams Line Tender Relationship Specialty Start Date End Date Sonido Cordoba PA [address] [place] [address] PCP - General Family Medicine 07/06/20 documented as of this encounter
--- OUTSIDE RECORDS SUMMARY | 2024-10-25 13:28 | XMS_ITS | Encounter Summary ---
Author Organization [facility] [place] [address] Care Team Providers Care Dielectric Machine Operator Name Role Phone Sonido Cordoba Primary Care Provider +1- [phone] Reason for Referral * Consultation (Routine) - Closed Specialty Diagnoses / Procedures Referred By Aric madrigal Referred To Contact Orthopaedics Diagnoses Peroneal tendinitis of right lower extremity Peroneal tendinitis of right foot Tyler Nava DPM [facility] [place] [address] Humera Martinez MD [facility] [place] [address] Referral ID Status Reason Start Date Expiration Date V isits Requested Visits Authorized [id number] Closed Consult, Test & Treat 07/30/2019 07/29/2020 1 1 Encounter Details Date Type Department Care Team (Late st Contact Info) Description 07/30/2019 Orders Only Podiatry at [facility] [place] [address] Tyler Nava DPM [facility] [place] [id number] Peroneal tendinitis of right lower extremity Social [...] 11/26/2024 8:45 AM EST Appointment Ultrasound at [place] [phone] Keri Avila [address] [employer] 9958[address] 12/31/2024 10:00 AM EST Office [place] [phone] Mercy Amanda MD [facility] DR [facility] [place] [address] 04/01/2025 2:00 PM EDT Office [place] [phone] Erum Szymanski MD [facility] [place]STR[place] [address] Scheduled Referrals Name Type Priority Associated Diagnoses Order Schedule Referral to Orthopaedics Outpatient Referral Routine Peroneal tendinitis of right lower extremity Ordered: 07/30/2019 documented as of this encounter Visit Diagnoses Diagnosis Peroneal tendinitis of right lower extremity Other enthesopathy of ankle and tarsus documented in this encounter Care Teams Dielectric Machine Operator Relationship Specialty Start Date End Date Sonido Cordoba PA [address] [place] [address] PCP - General Family Medicine 11/16/15 06/22/20 documented as of this encounter
--- OUTSIDE RECORDS SUMMARY | 2024-10-25 13:28 | XMS_ITS | Encounter Summary ---
Author Organization [facility] [place] [address] Care Team Providers Care Synthetic Plasterer Name Role Phone Sonido Cordoba Primary Care Provider +1- [phone] Reason for Referral * Physical Therapy (Routine) - Closed Specialty Diagnoses / Procedures Referred By Aric madrigal Referred To Contact Physical Therapy Diagnoses Scapular dyskinesis Iris Andres MD [facility] [place] [address] [facility] [address] [place] [address] Referral ID Status Reason Start Date Expiration Date V isits Requested Visits Authorized [id number] Closed Evaluate and Treat 01/07/2018 07/06/2018 1 1 Reason for Visit * Reason Comments Left Shoulder Pain Encounter Details Date Type Department Care Team (Late st Contact Info) Description 01/07/2018 1:00 PM EST Office Visit [place] [address] Iris Andres MD [facility] [place] [address] Scapular dyskinesis Social History Tobacco Use Types [...] a couple of years. 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 [...] of therapy. This note was created with [employer] voice recognition software. documented in this encounter Plan of Treatment Upcoming Encounters Date Type Department Care Team (Late st Contact Info) Description 11/26/2024 8:45 AM EST Appointment [place] [address] Keri Avila [address] [place] [address] 12/31/2024 10:00 AM EST Office Visit [place] [address] Mercy Amanda MD [facility] DR [facility] [address] 04/01/2025 2:00 PM EDT Office Visit [place] [address] Erum Szymanski MD [facility] GASTROENTEROLOGY [place], [place] [address] Scheduled Referrals Name Type Priority Associated Diagnoses Orde r Schedule Referral to Physical Therapy Outpatient Referral Routine Scapular dyskinesis Ordered: 01/07/2018 documented as of this encounter Visit Diagnoses Diagnosis Scapular dyskinesis Lack of coordination documented in this encounter Care Teams Synthetic Plasterer Relationship Specialty Start Date End Date Sonido Cordoba PA [address] [place] [address] PCP - General Family Medicine 11/16/15 06/22/20 documented as of this encounter
--- OUTSIDE RECORDS SUMMARY | 2024-10-25 13:28 | XMS_ITS | Encounter Summary ---
[place] [address] Care Team Providers Care System Support Analyst Name Role Phone Sonido Cordoba Primary Care Provider +1- [phone] Encounter Details Date Type Department Care Team (Late st Contact Info) Description 06/17/2019 11:00 AM EDT [place] [phone] Jena Severino PA Odynophagia; 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; History of [...] this encounter Patient Instructions * Patient Instructions* eJna Severino - 06/17/2019 11:00 AM EDT Thank [...] Follow up after testing with Dr. Szymanski. documented in this encounter Progress Notes * Jena Severino - 06/17/2019 11:00 AM EDT Gastroenterology & Hepatology Follow Up Visit Note PCP: WANDY Aguilera Last Visit: 04/17/18: Flacocelsa Jeremie Cordero is a 43 y.o. female with medical history significant for hx Rodgers's esophagus, paraesophageal hernia s/p Tyesha fundoplication (2014). FHx positive for son with Celiac disease and mother with colon cancer. I first saw her as a new patient in consult for question ofchronic diarrhea x 2.5 months, although intermittent diarrhea for past ~3 yrs. Diarrhea is often postprandial, 3-4 BM/day, Chadwicks scale 7 or 6. Urgency. Focal RUQ pain may be worse after meals x 4 yrs. Positive Carnett's sign. Plan: stool studies. Labs. Abdominal US 06/18/18: Postprandial diarrhea 90% of the time. Also has diarrhea without meals. 5-6 BM/day, Chadwicks scale 7, Chadwicks 6 sometimes. Urgency but no accidents. Sometimes [...] per last visit. 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 - she was not able to [...] 3.66) performed by Erum Szymanski MD at [facility] ENDOSCOPY ??? PRO COLONOSCOPY, REMV LESN, SNARE N/A 08/21/2018 COLONOSCOPY, POLYPECTOMY, REMOVAL LESION BY SNARE (WRVU 4.67) performed by Erum Szymanski MD at [facility] ENDOSCOPY ? ? PRO CYSTO W URETEROSCOPY &/OR PYELOSCOPY, DX Right 06/01/2015 CYSTOURETEROSCOPY, DIAGNOSTIC performed by Darius Nuñez Jr., MD at [facility] MAIN OR ??? PRO CYSTOSCOPY, INSERT URETERAL STENT Right 06/01/2015 CYSTO, STENT PLACEMENT performed by Darius Nuñez Jr., MD at [facility] OR ??? PRO LAP, ESOPHAGOGAST FUNDOPLASTY N/A 04/05/2015 LAPAROSCOPIC TYESHA FUNDOPLASTY performed by Valentín Moura MD at [facility] OR ??? PRO PERCUT DILATN RENAL TRACT Right 06/01/2015 PERCUTANEOUS INTRO GUIDE WIRE TO ACCESS RENAL PELVIS,AND OR URETER, W\DILATION performed by Darius Nuñez Jr., MD at [facility] OR ??? PRO PERCUT REMV KID STONE, UP TO 2 CM Right 06/01/2015 NEPHROLITHOTOMY, (PCNL) PERCUTANEOUS performed by Darius Nuñez Jr., MD at [facility] OR ??? PRO UPPER GI ENDOSCOPY, BIOPSY N/A 01/27/2015 EGD WITH BIOPSY performed by Brandt Barlow MD at [facility] ENDOSCOPY ??? PRO UPPER GI ENDOSCOPY, BIOPSY N/A 02/28/2016 EGD WITH BIOPSY performed by Brandt Barlow MD at [facility] ENDOSCOPY ??? PRO UPPER GI ENDOSCOPY, BIOPSY N/A 09/04/2016 EGD WITH BIOPSY performed by Brandt Barlow MD at [facility] ENDOSCOPY ??? PRO UPPER GI ENDOSCOPY, BIOPSY N/A 09/24/2017 EGD WITH BIOPSY (WRVU 2.49) performed by Brandt Barlow MD at [facility] ENDOSCOPY ??? PRO UPPER GI ENDOSCOPY, BIOPSY N/A 08/21/2018 EGD WITH BIOPSY (WRVU 2.49) performed by Erum Szymanski MD at [facility] ENDOSCOPY ??? 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 HABITS: Alcohol: once every 2 wks [...] Severino PA-C Section of Gastroenterology [place] [address] documented in this encounter Plan of Treatment Upcoming Encounters Date Type Department Care Team (Late st Contact Info) Description 11/26/2024 8:45 AM [place] [address] Keri Avila [address] [place] [address] 12/31/2024 10:00 AM EST [place] [address] Mercy Amanda MD [facility] [address] [facility] [address] 04/01/2025 2:00 PM EDT Office [place] [address] Erum Szymanski MD [facility] [place] [address] Scheduled Orders Name Type Priority Associated Diagnoses [...] colon documented in this encounter Care Teams System Support Analyst Relationship Specialty Start Date End Date Sonido Cordoba PA [address] [place] [address] PCP - General Family Medicine 11/16/15 06/22/20 documented as of this encounter
--- OUTSIDE RECORDS SUMMARY | 2024-10-25 13:28 | XMS_ITS | Encounter Summary ---
Author Organization [facility] [place] [address] Care Team Providers Care Cosmetic Surgeon Name Role Phone Sonido Cordoba Primary Care Provider +1- [phone] Reason for Visit * Reason Comments Foot Pain Encounter Details Date Type Department Care Team (Late st Contact Info) Description 06/17/2019 10:15 AM EDT Office [place] [address] Tyler Nava DPM [facility] [place] [address] Peroneal tendinitis of right lower extremity Social [...] to inject 1/2 cc of Kenalog [address] [facility] number 2599-7472-16 and 2% lidocaine plain around the base of the fifth metatarsal at the insertion of peroneus brevis right foot. Continue in supportive shoes. Contact me through my in 2 weeks. If no better will order an MRI. documented in this encounter Plan of Treatment Upcoming Encounters Date Type Department Care Team (Late st Contact Info) Description 11/26/2024 8:45 AM EST Appointment [place] [address] Keri Avila [address] [address] 12/31/2024 10:00 AM EST Office Visit [place] [address] Mercy Amanda MD [facility] [address] [facility] [place], [place] [address] 04/01/2025 2:00 PM EDT Office Visit [place] [address] Erum Szymanski MD [facility] [place] [address] documented as of this encounter Visit Diagnoses Diagnosis Peroneal tendinitis of right lower extremity Other enthesopathy of ankle and tarsus documented in this encounter Care Teams Cosmetic Surgeon Relationship Specialty Start Date End Date Sonido Cordoba PA [address] [place] [address] PCP - General Family Medicine 11/16/15 06/22/20 documented as of this encounter
--- OUTSIDE RECORDS SUMMARY | 2024-10-25 13:28 | XMS_ITS | Encounter Summary ---
[place] [address] Care Team Providers Care Retail Sales Manager Name Role Phone Sonido Cordoba Primary Care Provider +1- [phone] Encounter Details Date Type Department Care Team (Late st Contact Info) Description 06/18/2018 9:00 AM EDT Office [place] [phone] Jena Severino PA Diarrhea, unspecified type; Lower abdominal pain; Rodgers's [...] paraesophageal hernia s/p Tyesha fundoplication (2014). I first saw her as a new patient in consult for question of chronic diarrhea x 2.5 months, although intermittent diarrhea for past~3 yrs. Diarrhea is often postprandial, 3-4 BM/day, Wyckoff scale 7 or 6. Urgency. Focal RUQ pain may be worse after meals x 4 yrs. Positive Carnett's sign. Plan: stool studies. Labs. Abdominal US Subjective: Interval Hx: Diarrhea is usually after she eats 90% of the time. Sometimes diarrhea without meals. Has 5-6 BM/day, Wyckoff scale 7, Wyckoff 6 sometimes. No hard pellety stools. No [...] Darius Nuñez Jr., MD at [facility] MAIN OR ??? PRO CYSTOSCOPY, INSERT URETERAL STENT Right 06/01/2015 CYSTO, STENT PLACEMENT performed by Darius Nuñez Jr., MD at [facility] MAIN OR ??? PRO LAP, ESOPHAGOGAST FUNDOPLASTY N/A 04/05/2015 LAPAROSCOPIC TYESHA FUNDOPLASTY performed by Valentín Moura MD at [facility] MAIN OR ??? PRO PERCUT DILATN RENAL TRACT Right 06/01/2015 PERCUTANEOUS INTRO GUIDE WIRE TO ACCESS RENAL PELVIS,AND OR URETER, W\DILATION performed by Darius Nuñez Jr., MD at [facility] MAIN OR ??? PRO PERCUT REMV KID STONE, UP TO 2 CM Right 06/01/2015 NEPHROLITHOTOMY, ([facility]NL) PERCUTANEOUS performed by Darius Nuñez Jr., MD at [facility] MAIN OR ??? PRO UPPER GI ENDOSCOPY, BIOPSY N/A 01/27/2015 EGD WITH BIOPSY performed by Brandt Barlow MD at [facility] ENDOSCOPY ??? PRO UPPER GI ENDOSCOPY, BIOPSY N/A 02/28/2016 EGD WITH BIOPSY performed by Brandt Barlow MD at [facility] ENDOSCOPY ??? PRO UPPER GI ENDOSCOPY, BIOPSY N/A 09/04/2016 EGD WITH BIOPSY performed by Brandt Barlow MD at [facility] ENDOSCOPY ??? PRO UPPER GI ENDOSCOPY, BIOPSY N/A 09/24/2017 EGD WITH BIOPSY (WRVU 2.49) performed by Brandt Barlow MD at [facility] ENDOSCOPY ??? 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 Discussed importance of weight loss and [...] Severino PA-C Section of Gastroenterology [place] [address] documented in this encounter Plan of Treatment Upcoming Encounters Date Type Department Care Team (Late st Contact Info) Description 11/26/2024 8:45 AM EST [place] [address] uRbyDiamondKeri Sanches [address] [place] [address] 12/31/2024 10:00 AM EST Office [place] [address] Mercy Amanda MD [facility] [address] [facility] [place] [address] 04/01/2025 2:00 PM EDT Office [place] [phone] Erum Szymanski MD [facility] [address] Scheduled Orders Name Type Priority Associated Diagnoses Orde r Schedule COLONOSCOPY Procedures Routine Diarrhea, unspecified type Ordered: 06/18/2018 UPPER GI ENDOSCOPY Procedures Routine 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 Ordered: 06/18/2018 documented as of this encounter Visit Diagnoses Diagnosis Diarrhea, unspecified type Lower abdominal pain Abdominal pain, other specified site 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 Rodgers's esophagus documented in this encounter Care Teams Retail Sales Manager Relationship Specialty Start Date End Date Sonido Cordoba PA [address] [place] [address] PCP - General Family Medicine 11/16/15 06/22/20 documented as of this encounter
--- OUTSIDE RECORDS SUMMARY | 2024-10-25 13:28 | XMS_ITS | Encounter Summary ---
Author Organization [facility] [place] [address] Care Team Providers Care Back Hoe Machine Operator Name Role Phone Sonido Cordoba Primary Care Provider +1- [phone] Encounter Details Date Type Department Care Team (Latest Contact Info) Description 08/21/2018 9:12 AM EDT - 08/21/2018 12:41 PM EDT Hospital En[place] [address] Erum Szymanski MD [facility] [place] [address] Discharge Disposition: Home Social History Tobacco Use [...] - 08/21/2018 11:31 AM EDT Please call [phone] before 8pm Mon-Fri with problems, questions or concerns. If you call after 8pm or on weekends, call the Hospital at [phone] and ask to speak to the Repair Welder bilingual receptionist and the pointer machine operator will contact that person for you. * Attachments The following attachments cannot be sent through Care Everywhere. * COLONOSCOPY: POST-OP (MACANESE) * COLON POLYPS (MACANESE) * EGD (UPPER ENDOSCOPY): POST-OP (MACANESE) * JEAN BAPTISTE'S ESOPHAGUS (MACANESE) documented in this encounter Medications at Time [...] 11/26/2024 8:45 AM [place] [address] [address] [address] 12/31/2024 10:00 AM EST Office [place] [address] Mercy Amanda MD [facility] [address] [facility] [address] 04/01/2025 2:00 PM EDT Office [place] [address] Erum Szymanski MD [facility] [place] [address] documented as of this encounter Procedures Procedure [...] AM EDT 08/21/2018 11:20 AM EDT Narrative [facility] - 08/21/2018 11:20 AM EDT Specimen requisition ordered. ??Separate Pathology report to follow Erum Szymanski MD PATHOLOGY/CYTOLOGY O ZHANNA Performing Organization Address [facility] Co de Phone Number [facility] [place] [address] * Specimen to Pathology (08/21/2018 11:20 AM EDT) AP Specimen 08/21/2018 11:2 0 AM EDT 08/21/2018 11:20 AM EDT Narrative [facility] - 08/21/2018 11:20 AM EDT Specimen requisition ordered. ??Separate Pathology report to follow Erum Szymanski MD PATHOLOGY/CYTOLOGY O RDERABLES Performing Organization Address City/[facility]/ZIP Co de Phone Number [facility] [place] [address] * Specimen to Pathology (08/21/2018 11:20 AM EDT) AP Specimen 08/21/2018 11:2 0 AM EDT 08/21/2018 11:20 AM EDT Narrative [facility] - 08/21/2018 11:20 AM EDT Specimen requisition ordered. ??Separate Pathology report to follow Erum Szymanski MD PATHOLOGY/[place] [address] * Specimen to Pathology (08/21/2018 11:20 AM EDT) AP Specimen 08/21/2018 11:2 0 AM EDT 08/21/2018 11:20 AM EDT Narrative [facility] - 08/21/2018 11:20 AM EDT Specimen requisition ordered. ??Separate Pathology report to follow Erum Szymanski MD PATHOLOGY/[place] [address] * Specimen to Pathology (08/21/2018 11:20 AM EDT) AP Specimen 08/21/2018 11:2 0 AM EDT 08/21/2018 11:20 AM EDT Narrative [facility] - 08/21/2018 11:20 AM EDT Specimen requisition ordered. ??Separate Pathology report to follow Erum Szymanski MD PATHOLOGY/[place] [address] * Specimen to Pathology (08/21/2018 11:20 AM EDT) AP Specimen 08/21/2018 11:2 0 AM EDT 08/21/2018 11:20 AM EDT Narrative [facility] - 08/21/2018 11:20 AM EDT Specimen requisition ordered. ??Separate Pathology report to follow Erum Szymanski MD PATHOLOGY/[place] [address] * Specimen to Pathology (08/21/2018 11:20 AM EDT) AP Specimen 08/21/2018 11:2 0 AM EDT 08/21/2018 11:20 AM EDT Narrative [facility] - 08/21/2018 11:20 AM EDT Specimen requisition ordered. ??Separate Pathology report to follow Erum Szymanski MD PATHOLOGY/CYTOLOGY O RDERAYESENIA Performing Organization Address City/[facility]/[place] [address] * Specimen to Pathology (08/21/2018 11:20 AM EDT) AP Specimen 08/21/2018 11:2 0 AM EDT 08/21/2018 11:20 AM EDT Narrative [facility] - 08/21/2018 11:20 AM EDT Specimen requisition ordered. ??Separate Pathology report to follow Erum Szymanski MD PATHOLOGY/CYTOLOGY O RDERABLES Performing Organization Address City/[facility]/[place] [address] * Specimen to Pathology (08/21/2018 11:20 AM EDT) AP Specimen 08/21/2018 11:2 0 AM EDT 08/21/2018 11:20 AM EDT Narrative [facility] - 08/21/2018 11:20 AM EDT Specimen requisition ordered. ??Separate Pathology report to follow Erum Szymanski MD PATHOLOGY/CYTOLOGY O RDERAYESENIA Performing Organization Address City/[facility]/[place] [address] * Specimen to Pathology (08/21/2018 11:20 AM EDT) AP Specimen 08/21/2018 11:2 0 AM EDT 08/21/2018 11:20 AM EDT Narrative [facility] - 08/21/2018 11:20 AM EDT Specimen requisition ordered. ??Separate Pathology report to follow Erum Szymanski MD PATHOLOGY/CYTOLOGY O ZHANNA Performing Organization Address [facility]/[place] [address] * Specimen to Pathology (08/21/2018 11:20 AM EDT) AP Specimen 08/21/2018 11:2 0 AM EDT 08/21/2018 11:20 AM EDT Narrative [facility] - 08/21/2018 11:20 AM EDT Specimen requisition ordered. ??Separate Pathology report to follow Erum Szymanski MD PATHOLOGY/CYTOLOGY O ZHANNA Performing Organization Address [facility]/[place] [address] * Specimen to Pathology (08/21/2018 11:20 AM EDT) AP Specimen 08/21/2018 11:2 0 AM EDT 08/21/2018 11:20 AM EDT Narrative [facility] - 08/21/2018 11:20 AM EDT Specimen requisition ordered. ??Separate Pathology report to follow Erum Szymanski MD PATHOLOGY/CYTOLOGY O ZHANNA Performing Organization Address [facility] [place] [address] * Specimen to Pathology (08/21/2018 11:20 AM EDT) AP Specimen 08/21/2018 11:2 0 AM EDT 08/21/2018 11:20 AM EDT Narrative [facility] - 08/21/2018 11:20 AM EDT Specimen requisition ordered. ??Separate Pathology report to follow Erum Szymanski MD PATHOLOGY/CYTOLOGY O ZHANNA [facility] [place] [address] * Surgical Pathology Report (08/21/2018 10:36 AM EDT) Final Diagnosis [id number] ? Location: 4T; EA11; A The signing [...] Dee MD Verified: ??08/22/2018 ?Pathologist Performed at: ??-[facility] Dept. of Pathology, [place], [place] DISCUSSION H,K,L. ??Clinical and endoscopic correlation [...] labeled M1. ??sunita 08/22/2018 3:53 PM EDT [facility] GI Biopsy 08/21/2018 10:3 6 AM [...] AM EDT Erum Szymanski MD PATHOLOGY/CYTOLOGY O RDERABLES Performing Organization Address [facility]/State/[facility] Co de Phone Number [facility] [place] [address] * UPPER GI ENDOSCOPY (08/21/2018 9:37 AM EDT) UPPER GI ENDOSCOPY [facility] ___ Procedure Date: 08/21/2018 9:37 AM ? Patient Name: Vianney Cordero ? Date of : 1975 ? Age: 42 ? Order #: [id number] ? Instrument Name: [id number] ? ___ Procedure: ? Upper GI endoscopy Indications: ? Follow-up of Jean Baptiste's esophagus Providers: ? Erum Szymanski MD, Erik Trevino, ? RN, Miriam Gutierrez, Prospecting Driller Helper Referring : ?WANDY Andrade Medicines: ? Midazolam 7 mg [...] ? changes was 8 cm in length. [place] classification ? C7M1. Mucosa was biopsied with [...] * COLONOSCOPY (08/21/2018 8:39 AM EDT) COLONOSCOPY [facility] Procedure Date: 08/21/2018 8:39 AM ? Patient Name: Vianney Cordero ? Date of : 1975 ? Age: 42 ? Order #: [id number] ? Instrument Name: -[id number] ? Procedure: ? Colonoscopy Indications: ? Chronic diarrhea, Family history of ? colon cancer in a first-degree ? relative Providers: ? Erum Szymanski MD, Erik Trevino, ? RN, Miriam Gutierrez, Prospecting Driller Helper Referring MD: ?WANDY Andrade, Jena Curtis ? [place] Medicines: [...] preparation was ? evaluated using the BBPS ([place] ? Bowel Preparation Scale) with scores ? [...] AM EDT Unknown GENERAL SURGICAL ORD ERABLES Performing Organization Address City/State/[facility] Co de Phone Number [employer] documented in this encounter Visit Diagnoses Not on filedocumented in this encounter Active and Recently Administered Medications Times are shown in EDT. PRN Medication Order 08/19/2018 08/20/2018 08/21/2018 diphenhydrAMINE (BENADRYL) injection (CANCELED) ONCE PRN, Starting on Sun08/21/18 at 1032, Until Sun08/21/18 at 1441, Intra-Operative (Intra-Procedure), Routine 1026 (Given - Provid er: Erik Trevino, RN)1032 (Given - Provider: Erik Trevino RN) fentaNYL 50 mcg/mL multi-dose injection (CANCELED) ONCE PRN, Starting on Sun08/21/18 at 0958, Until Sun08/21/18 at 1441, Intra-Operative (Intra-Procedure), Routine 0958 (Given - Provid er: Erik Trevino RN)1001 (Given - Provider: Erik Trevino, NIMCO)1004 (Given - Provider: Erik Trevino RN)1010 (Given - Provider: Erik Trevino RN)1018 (Given - Provider: Erik Trevino RN)1026 (Given - Provider: Erik Treivno RN) midazolam (PF) (VERSED) multi-dose injection (CANCELED) ONCE PRN, Starting on Sun08/21/18 at 1001, Until Sun08/21/18 at 1441, Intra-Operative (Intra-Procedure), Routine 0958 (Given - Provid er: Erik Trevino RN)1001 (Given - Provider: Erik Trevino RN)1005 (Given - Provider: Erik Trevino RN)1010 (Given - Provider: Erik Trevino RN)1026 (Given - Provider: Erik Trevino RN) documented in this encounter Care Teams Back Hoe Machine Operator Relationship Specialty Start Date End Date Sonido Cordoba PA [address] [place] [address] PCP - General Family Medicine 11/16/15 06/22/20 documented as of this encounter
--- OUTSIDE RECORDS SUMMARY | 2024-10-25 13:28 | XMS_ITS | Encounter Summary ---
Author Organization [facility] Address [facility] [place] [address] Care Team Providers Care Pull Tab Dealer Name Role Phone Sonido Cordoba Primary Care Provider +1- [phone] Encounter Details Date Type Department Care Team (Latest Contact Info) Description 05/01/2018 9:23 AM EDT - 05/01/2018 11:59 PM EDT Hospital [place] [address] Kathy Carnes MD [facility] [place] [address] Upper abdominal pain Discharge Disposition: Home Social [...] 11/26/2024 8:45 AM EST [place] [address] Keri Avila [address] [place] [address] 12/31/2024 10:00 AM EST Office [place] [address] Mercy Amanda MD [facility] DR [facility] [address] 04/01/2025 2:00 PM EDT Office [place] [address] Erum Szymanski MD [facility] [place] [address] documented as of this encounter Procedures Procedure [...] 10:10 am) PATIENT INFO: ID #: ? [id number] ?: ??[birth year] (42 yrs) Name: ? EMIL NEVES ?Visit Date: 05/01/2018 09:27 am ? GABRIELLE PERFORMED BY: Performed By: ? Ankit Lockett RDMS Attending: ?Mina Cook MD Referred By: ?KATHY Rae [facility] Location: ? [place] SERVICE(S) PROVIDED: ??UABDLIM - Abdominal Limited Survey Single ? [id number] ??Organ or Quadrant - [id number] INDICATIONS: ??worsening RUQ pain often postprandial. hx [...] 05/01/2018 10:10 am) PATIENT INFO: ID #: [id number] : [birth year] (42 yrs) Name: EMIL NEVES Visit Date: 05/01/2018 09:27 am ANTHONY PERFORMED BY: Performed By: Ankit Lockett RDMS Attending: Mina Cook MD Referred By: KATHY CARNES Location: [place] SERVICE(S) PROVIDED: UABDLIM - Abdominal Limited Survey Single [address] Organ or Quadrant - [id number] INDICATIONS: worsening RUQ pain often postprandial. hx [...] site documented in this encounter Care Teams Pull Tab Dealer Relationship Specialty Start Date End Date Sonido Cordoba PA [address] [place] [address] PCP - General Family Medicine 11/16/15 06/22/20 documented as of this encounter
--- OUTSIDE RECORDS SUMMARY | 2024-10-25 13:28 | XMS_ITS | Encounter Summary ---
[place] [address] Care Team Providers Care Cloth Tester Quality Name Role Phone Sonido Cordoba Primary Care Provider +1- [phone] Reason for Visit * Reason Onset Date Comments Prior Authorization 09/13/2018 Encounter Details Date Type Department Care Team (Late st Contact Info) Description 09/13/2018 Telephone [place] [address] Kaia Cherry CCMA Prior Authorization Social History [...] Prior Authorization 4L Gastroenterology / [place] [address] Subscriber Insurance: [place] Medicaid Phone: Fax: Physician: Jena Severino Return [...] 11/26/2024 8:45 AM EST Appointment [place] [address] Keri Avila [address] [employer] [address] 12/31/2024 10:00 AM EST Office Visit Weight Center at [address] Mercy Amanda MD [facility] [address] [place] [address] 04/01/2025 2:00 PM EDT Office Visit [place] [address] Erum Szymanski MD [facility] [place] [address] documented as of this encounter Visit Diagnoses Not on filedocumented in this encounter Care Teams Cloth Tester Quality Relationship Specialty Start Date End Date Sonido Cordoba PA [address] [place] [address] PCP - General Family Medicine 11/16/15 06/22/20 documented as of this encounter
--- OUTSIDE RECORDS SUMMARY | 2024-10-25 13:28 | XMS_ITS | Encounter Summary ---
[place] [address] Care Team Providers Care Scientific Informatics Analyst Name Role Phone Sonido Cordoba Primary Care Provider +1- [phone] Reason for Referral * Diagnostic Test (Routine) - Closed Specialty Diagnoses / Procedures Referred By Aric madrigal Referred To Contact Radiology Diagnoses Peroneal tendinitis, right Procedures MRI Ankle wo Contrast Right MRI Foot wo Contrast Right Lizbeth Guzman APRN [facility] DR [place] [address] [place] [address] Referral ID Status Reason Start Date Expiration Date V isits Requested Visits Authorized [id number] Closed Specialty Service Requested 1 1 Reason for Visit * Reason Comments Right Foot Pain * Consultation (Routine) - Closed Specialty Diagnoses / Procedures Referred By Aric madrigal Referred To Contact Orthopaedics Diagnoses R foot pain Self mail [facility] [address] [place] [address] Referral ID Status Reason Start Date Expiration Date V isits Requested Visits Authorized [id number] Closed Consult, Test & Treat 08/12/2019 08/11/2020 1 1 Encounter Details Date Type Department Care Team (Latest Contact Info) Description 09/03/2019 2:20 PM EDT Office Visit [facility] at [facility] [place] [address] Lizbeth Guzman APRN [facility] [place] [address] Peroneal tendinitis, right (Primary Dx); Lateral epicondylitis [...] this encounter Progress Notes * Lizbeth Guzman, BREAKER UP - 09/03/2019 2:20 PM EDT PATIENT NAME: Vianney Cordero AGE: 43 y.o. 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 Modalities thus far have included relative rest, [...] 3.66) performed by Erum Szymanski MD at [facility] ENDOSCOPY ??? PRO COLONOSCOPY, REMV LESN, SNARE N/A 08/21/2018 COLONOSCOPY, POLYPECTOMY, REMOVAL LESION BY SNARE (WRVU 4.67) performed by Erum Szymanski MD at [facility] ENDOSCOPY ? ? PRO CYSTO W URETEROSCOPY &/OR PYELOSCOPY, DX Right 06/01/2015 CYSTOURETEROSCOPY, DIAGNOSTIC performed by Darius Nuñez Jr., MD at [facility] MAIN OR ??? PRO CYSTOSCOPY, INSERT URETERAL STENT Right 06/01/2015 CYSTO, STENT PLACEMENT performed by Darius Nuñez Jr., MD at [facility] MAIN OR ??? PRO LAP, ESOPHAGOGAST FUNDOPLASTY N/A 04/05/2015 LAPAROSCOPIC TYESHA FUNDOPLASTY performed by Valentín Moura MD at [facility] MAIN OR ??? PRO PERCUT DILATN RENAL TRACT Right 06/01/2015 PERCUTANEOUS INTRO GUIDE WIRE TO ACCESS RENAL PELVIS,AND OR URETER, W\DILATION performed by Darius Nuñez Jr., MD at [facility] MAIN OR ??? PRO PERCUT REMV KID STONE, UP TO 2 CM Right 06/01/2015 NEPHROLITHOTOMY, (PCNL) PERCUTANEOUS performed by Darius Nuñez Jr., MD at [facility] MAIN OR ??? PRO UPPER GI ENDOSCOPY, BIOPSY N/A 01/27/2015 EGD WITH BIOPSY performed by Brandt Barlow MD at [facility] ENDOSCOPY ??? PRO UPPER GI ENDOSCOPY, BIOPSY N/A 02/28/2016 EGD WITH BIOPSY performed by Brandt Barlow MD at [facility] ENDOSCOPY ??? PRO UPPER GI ENDOSCOPY, BIOPSY N/A 09/04/2016 EGD WITH BIOPSY performed by Brandt Barlow MD at [facility] ENDOSCOPY ??? PRO UPPER GI ENDOSCOPY, BIOPSY N/A 09/24/2017 EGD WITH BIOPSY (WRVU 2.49) performed by Brandt Barlow MD at [facility] ENDOSCOPY ??? PRO UPPER GI ENDOSCOPY, BIOPSY N/A 08/21/2018 EGD WITH BIOPSY (WRVU 2.49) performed by Erum Szymanski MD at [facility] ENDOSCOPY ??? 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 ROS: Denies fever, chills, nausea, vomiting, vision [...] 11/26/2024 8:45 AM EST Appointment [place] [address] Keri Avila [address] [place] [address] 12/31/2024 10:00 AM EST Office [place] [address] Mercy Amanda MD [facility] [address] 04/01/2025 2:00 PM EDT Office Visit [place] [address] Erum Szymanski MD [facility] [place] [address] documented as of this encounter Results * [...] Electronically signed by: Tammy Krishnamurthy [facility] ([phone]), at 09/30/2019 8:46 AM Narrative 09/30/2019 8:46 [...] right ankle was performed without contrast using [facility] ankle protocol. COMPARISON: None FINDINGS: Tendons: The [...] Electronically signed by: Tammy Krishnamurthy [facility]([phone]), at 09/30/2019 8:46 AM Lizbeth Guzman APRN IMG MRI ORDERABLES documented in this encounter Visit Diagnoses Diagnosis Peroneal tendinitis, right- Primary Lateral epicondylitis of right elbow Lateral epicondylitis of elbow Peroneal tendinitis, right documented in this encounter Care Teams Scientific Informatics Analyst Relationship Specialty Start Date End Date Sonido Cordoba PA [address] [place] [address] PCP - General Family Medicine 11/16/15 06/22/20 documented as of this encounter
--- OUTSIDE RECORDS SUMMARY | 2024-10-25 13:28 | XMS_ITS | Encounter Summary ---
Author Organization On License Of [facility] Address [facility] [place] [address] Care Team Providers Care Field Control Inspector Name Role Phone Sonido Cordoba Primary Care Provider +1- [phone] Encounter Details Date Type Department Care Team (Late st Contact Info) Description 03/19/2019 [place] [phone] Tyler Nava DPM [facility] [place] [address] Social History Tobacco Use Types Packs/Day Years [...] 11/26/2024 8:45 AM EST [place] [address] Keri Avila [address] [place] [address] 12/31/2024 10:00 AM EST Office [place] [address] Mercy Amanda MD [facility] [address] [facility] [place] [address] 04/01/2025 2:00 PM EDT Office [place] [phone] Erum Szymanski MD [facility] [place] [address] documented as of this encounter Visit Diagnoses Not on filedocumented in this encounter Care Teams Field Control Inspector Relationship Specialty Start Date End Date Sonido Cordoba PA [address] [place] [address] PCP - General Family Medicine 11/16/15 06/22/20 documented as of this encounter
--- OUTSIDE RECORDS SUMMARY | 2024-10-25 13:28 | XMS_ITS | Encounter Summary ---
[place] [address] Care Team Providers Care Chef Instructor Name Role Phone Sonido Cordoba Primary Care Provider +1- [phone] Encounter Details Date Type Department Care Team (Late st Contact Info) Description 12/31/2018 Orders [place] [phone] Jena Severino PA H pylori ulcer Social History Tobacco Use [...] 11/26/2024 8:45 AM EST [place] [phone] Keri Avila [address] [place], [place] [id number] 12/31/2024 10:00 AM EST Office [place] [phone] Mercy Amanda MD [facility] DR [facility] [address] 04/01/2025 2:00 PM EDT Office [place] [address] Erum Szymanski MD [facility] DR [place] [address] documented as of this encounter Visit Diagnoses Diagnosis H pylori ulcer Gastric ulcer, unspecified as acute or chronic, without mention of hemorrhage, perforation, or obstruction documented in this encounter Care Teams Chef Instructor Relationship Specialty Start Date End Date Sonido Cordoba PA [address] [place] [address] PCP - General Family Medicine 11/16/15 06/22/20 documented as of this encounter
--- OUTSIDE RECORDS SUMMARY | 2024-10-25 13:28 | XMS_ITS | Encounter Summary ---
[place] [address] Care Team Providers Care Rolled Gold Plater Name Role Phone Sonido Cordoba Primary Care Provider +1- [phone] Encounter Details Date Type Department Care Team (Late st Contact Info) Description 12/20/2018 Orders [place] [address] Jena Severino PA H. pylori infection; Fatty liver Social History [...] 11/26/2024 8:45 AM EST [place] [phone] Keri Avila [address] [place] [address] 12/31/2024 10:00 AM EST Office [place] [address] Mercy Amanda MD [facility] [address] [facility] [address] 04/01/2025 2:00 PM EDT Office [place] [address] Erum Szymanski MD [facility] [place] [address] documented as of this encounter Visit Diagnoses Diagnosis H. pylori infection Helicobacter pylori (H. pylori) Fatty liver Other chronic nonalcoholic liver disease documented in this encounter Care Teams Rolled Gold Plater Relationship Specialty Start Date End Date Sonido Cordoba PA [address] [place] [address] PCP - General Family Medicine 11/16/15 06/22/20 documented as of this encounter
--- OUTSIDE RECORDS SUMMARY | 2024-10-25 13:28 | XMS_ITS | Encounter Summary ---
Author [place] [address] Care Team Providers Care Survey Director Name Role Phone Sonido Cordoba Primary Care Provider +1- [phone] Encounter Details Date Type Department Care Team (Late st Contact Info) Description 08/15/2019 Telephone [place] [address] Chanell Mcfadden Social History Tobacco [...] 11/26/2024 8:45 AM EST Appointment Ultrasound at [address] Keri Avila [address] [place] [address] 12/31/2024 10:00 AM EST Office Visit Weight Center at [place] [phone] Mercy Amanda MD [facility] [address] [facility] [address] 04/01/2025 2:00 PM EDT Office Visit Gastroenterology at [place] [phone] Erum Szymanski MD [facility] [place] [address] documented as of this encounter Visit Diagnoses Not on filedocumented in this encounter Care Teams Survey Director Relationship Specialty Start Date End Date Sonido Cordoba PA [address] [place] [address] PCP - General Family Medicine 11/16/15 06/22/20 documented as of this encounter
--- OUTSIDE RECORDS SUMMARY | 2024-10-25 13:28 | XMS_ITS | Encounter Summary ---
[place] [address] Care Team Providers Care Locks Tender Name Role Phone Sonido Cordoba Primary Care Provider +1- [phone] Encounter Details Date Type Department Care Team (Late st Contact Info) Description 07/28/2019 Telephone [place] [address] Gracy Sanchez, [facility] Social History Tobacco Use Types Packs/Day Years [...] 8:45 AM EST Appointment [place] [phone] Keri Avila [address] [place] [address] 12/31/2024 10:00 AM EST Office [place] [address] Mercy Amanda MD [facility] [address] [facility] [place] [address] 04/01/2025 2:00 PM EDT Office Visit [place] [phone] Erum Szymanski MD [facility] [place] [address] documented as of this encounter Visit Diagnoses Not on filedocumented in this encounter Care Teams Locks Tender Relationship Specialty Start Date End Date Sonido Cordoba PA [address] [place] [address] PCP - General Family Medicine 11/16/15 06/22/20 documented as of this encounter
--- OUTSIDE RECORDS SUMMARY | 2024-10-25 13:28 | XMS_ITS | Encounter Summary ---
[place] [address] Care Team Providers Care Marketing Content Specialist Name Role Phone Sonido Cordoba Primary Care Provider +1- [phone] Reason for Visit * Reason Comments Follow-up Encounter Details Date Type Department Care Team (Late st Contact Info) Description 02/24/2019 2:00 PM EDT Office [place] [address] Jena Severino PA Upper abdominal pain; Abdominal bloating; Nausea without [...] this encounter Progress Notes * Jena Severino R - 02/24/2019 2:00 PM EDT Gastroenterology & [...] yrs. Diarrhea is often postprandial, 3-4 BM/day, [place] scale 7 or 6. Urgency. Focal RUQ pain may be worse after meals x 4 yrs. Positive Carnett's sign. Plan: stool studies. Labs. Abdominal US 06/18/18: Postprandial diarrhea 90% of the time. Also has diarrhea without meals. 5-6 BM/day, [place] scale 7, [place] 6 sometimes. Urgency but no accidents. Sometimes [...] per last visit. Submitted stool test to [facility] end Nov; told today [...] performed by Darius Nuñez Jr., MD at [facility] MAIN OR ??? PRO CYSTOSCOPY, INSERT URETERAL STENT Right 06/01/2015 CYSTO, STENT PLACEMENT performed by Darius Nuñez Jr., MD at [facility] OR ??? PRO LAP, ESOPHAGOGAST FUNDOPLASTY N/A 04/05/2015 LAPAROSCOPIC TYESHA FUNDOPLASTY performed by Valentín Moura MD at [facility] OR ??? PRO PERCUT DILATN RENAL TRACT Right 06/01/2015 PERCUTANEOUS INTRO GUIDE WIRE TO ACCESS RENAL PELVIS,AND OR URETER, W\DILATION performed by Darius Nuñez Jr., MD at [facility] MAIN OR ??? PRO PERCUT REMV KID STONE, UP TO 2 CM Right 06/01/2015 NEPHROLITHOTOMY, (PCNL) PERCUTANEOUS performed by Darius Nuñez Jr., MD at [facility] OR ??? PRO UPPER GI ENDOSCOPY, [...] at [facility] ENDOSCOPY ??? 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 [employer] HABITS: Alcohol: once every 2 wks Tobacco: [...] Severino PA-C Section of Gastroenterology and Hepatology [place] [phone] documented in this encounter Plan of Treatment Upcoming Encounters Date Type Department Care Team (Late st Contact Info) Description 11/26/2024 8:45 AM EST Appointment Ultrasound at [place] [phone] Keri Avila [address] [place] [address] 12/31/2024 10:00 AM EST Office [place] [address] Mercy Amanda MD [facility] [address] [place] [address] 04/01/2025 2:00 PM EDT Office [place] [address] Erum Szymanski MD [facility] [place] [address] documented as of this encounter Results * [...] 10:24 am) PATIENT INFO: ID #: ? [id number] ?: ??[birth year] (43 yrs) Name: ? VIANNEY NEVES ?Visit Date: 03/19/2019 09:39 am ? GABRIELLE PERFORMED BY: Performed By: ? Michaela Guy RDMS Attending: ?Patrick RIVAS, Aliya Grimes Referred By: ?KATHY SCHMIDT Location: ? [place] SERVICE(S) PROVIDED: ??UABDLIM - Abdominal Limited Survey Single ? 67845 ??Organ or Quadrant - [id number] INDICATIONS: ??postprandial RUQ pain, bloating, nausea. ??Concern [...] 03/19/2019 10:24 am) PATIENT INFO: ID #: [id number] : [birth year] (43 yrs) Name: VIANNEY NEVES Visit Date: 03/19/2019 09:39 am GABRIELLE PERFORMED BY: Performed By: Michaela Guy RDMS Attending: Aliya Nguyen MD Referred By: KATHY APPLEWOOD Location: [place] SERVICE(S) PROVIDED: UABDLIM - Abdominal Limited Survey Single 18272 Organ or Quadrant - [id number] INDICATIONS: postprandial RUQ pain, bloating, nausea. Concern [...] vomiting documented in this encounter Care Teams Marketing Content Specialist Relationship Specialty Start Date End Date Sonido Cordoba PA [address] [place] [address] PCP - General Family Medicine 11/16/15 06/22/20 documented as of this encounter
--- OUTSIDE RECORDS SUMMARY | 2024-10-25 13:28 | XMS_ITS | Encounter Summary ---
[place] [address] Care Team Providers Care Client Strategist Name Role Phone Sonido Cordoba Primary Care Provider +1- [phone] Reason for Visit * Reason Comments Follow-up Encounter Details Date Type Department Care Team (Late st Contact Info) Description 09/10/2018 2:00 PM EST Office [place] [phone] Jena Severino PA H. pylori infection; Fatty [...] Note PCP: WANDY Aguilera Last Visit: 04/17/18: Flacoellegerg Cordero is a 42 y.o. female with medical history significant for hx Rodgers's esophagus, paraesophageal hernia s/p Tyesha fundoplication (2014). FHx positive for son with Celiac disease and mother with colon cancer. I first saw her as a new patient in consult for question ofchronic diarrhea x 2.5 months, although intermittent diarrhea for past ~3 yrs. Diarrhea is often postprandial, 3-4 BM/day, [place] scale 7 or 6. Urgency. Focal RUQ pain may be worse after meals x 4 yrs. Positive Carnett's sign. Plan: stool studies. Labs. Abdominal US 06/18/18: Postprandial diarrhea 90% of the time. Also has diarrhea without meals. 5-6 BM/day, [place] scale 7, [place] 6 sometimes. Urgency but no accidents. Sometimes [...] 3.66) performed by Erum Szymanski MD at [facility] ENDOSCOPY ??? PRO COLONOSCOPY, REMV LESN, SNARE N/A 08/21/2018 COLONOSCOPY, POLYPECTOMY, REMOVAL LESION BY SNARE (WRVU 4.67) performed by Erum Szymanski MD at [facility] ENDOSCOPY ? ? PRO CYSTO W URETEROSCOPY &/OR PYELOSCOPY, DX Right 06/01/2015 CYSTOURETEROSCOPY, DIAGNOSTIC performed by Darius Nuñez Jr., MD at [facility] OR ??? PRO CYSTOSCOPY, INSERT URETERAL STENT Right 06/01/2015 CYSTO, STENT PLACEMENT performed by Darius Nuñez Jr., MD at [facility] OR ??? PRO LAP, ESOPHAGOGAST FUNDOPLASTY N/A 04/05/2015 LAPAROSCOPIC TYESHA FUNDOPLASTY performed by Valentín oMura MD at [facility] OR ??? PRO PERCUT DILATN RENAL TRACT Right 06/01/2015 PERCUTANEOUS INTRO GUIDE WIRE TO ACCESS RENAL PELVIS,AND OR URETER, W\DILATION performed by Darius Nuñez Jr., MD at [facility] OR ??? PRO PERCUT REMV KID STONE, UP TO 2 CM Right 06/01/2015 NEPHROLITHOTOMY, (PCNL) PERCUTANEOUS performed by Darius Nuñez Jr., MD at [facility] MAIN OR ??? PRO UPPER GI ENDOSCOPY, BIOPSY N/A 01/27/2015 EGD WITH BIOPSY performed by Brandt Barlow MD at [facility] ENDOSCOPY ??? PRO UPPER GI ENDOSCOPY, BIOPSY N/A 02/28/2016 EGD WITH BIOPSY performed by Brandt Barlow MD at [facility] ENDOSCOPY ??? PRO UPPER GI ENDOSCOPY, BIOPSY N/A 09/04/2016 EGD WITH BIOPSY performed by Brandt Barlow MD at [facility] ENDOSCOPY ??? PRO UPPER GI ENDOSCOPY, BIOPSY N/A 09/24/2017 EGD WITH BIOPSY (WRVU 2.49) performed by Brandt Barlow MD at [facility] ENDOSCOPY ??? PRO UPPER GI ENDOSCOPY, BIOPSY N/A 08/21/2018 EGD WITH BIOPSY (WRVU 2.49) performed by Erum Szymanski MD at [facility] ENDOSCOPY ??? 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 [employer] HABITS: Alcohol: once every 2 wks Tobacco: [...] Severino PA-C Section of [place] [address] documented in this encounter Plan of Treatment Upcoming Encounters Date Type Department Care Team (Late st Contact Info) Description 11/26/2024 8:45 AM EST Appointment [place] [address] Keri Avila [address] [place] [address] 12/31/2024 10:00 AM EST Office [place] [address] Mercy Amanda MD [facility] DR [facility] [address] 04/01/2025 2:00 PM EDT Office [place] [address] Erum Szymanski MD [facility] [place] [address] documented as of this encounter Results * [id number] (12/17/2018 10:30 AM EST) Narrative Awais Kebede PA - 12/17/2018 10:30 AM EST Awais Kebede PA ? 12/17/2018 11:06 AM [facility] Liver Fibrosis Assessment Report Indication: ?? Hepatomegaly and hepatic steatosis on ultrasound Performed by: ??WANDY Negrete Procedure: Vibration Controlled Transient Elastography (VCTE) or Fibroscan [place] Protocol: Patient's identity, procedure and site were [...] disease documented in this encounter Care Teams Client Strategist Relationship Specialty Start Date End Date Sonido Cordoba PA [address] [place] [address] PCP - General Family Medicine 11/16/15 06/22/20 documented as of this encounter
--- OUTSIDE RECORDS SUMMARY | 2024-10-25 13:28 | XMS_ITS | Encounter Summary ---
Author Organization [facility] [place] [address] Care Team Providers Care Rotary Rig Engine Operator Name Role Phone Sonido Cordoba Primary Care Provider +1- [phone] Encounter Details Date Type Department Care Team (Late st Contact Info) Description 08/21/2018 10:00 AM EDT - 08/21/2018 11:15 AM EDT [place] [address] Erum Szymanski MD [facility] [place] [address] COLONOSCOPY FLEXIBLE, WITH BX (WRVU 3.56) Social [...] - 08/21/2018 11:31 AM EDT Please call [phone] before 8pm Mon-Fri with problems, questions or concerns. If you call after 8pm or on weekends, call the Hospital at [phone] and ask to speak to the Assistant Analyst outside solar sales consultant and the chopping machine operator will contact that person for you. * Attachments The following attachments cannot be sent through Care Everywhere. * COLONOSCOPY: POST-OP ([place]) * COLON POLYPS ([place]) * EGD (UPPER ENDOSCOPY): POST-OP ([place]) * JEAN BAPTISTE'S ESOPHAGUS ([place]) documented in this encounter Medications at Time [...] 11/26/2024 8:45 AM [place] [address] [address] [address] 12/31/2024 10:00 AM EST Office [place] [address] Mercy Amanda MD [facility] DR [facility] [address] 04/01/2025 2:00 PM EDT Office [place] [phone] Erum Szymanski MD [facility] [place] [address] documented as of this encounter Procedures Procedure [...] MD PATHOLOGY/CYTOLOGY O RDERAYESENIA Performing Organization Address [facility] Co de Phone Number [facility] [place] [address] * Specimen to Pathology (08/21/2018 11:20 AM EDT) AP Specimen 08/21/2018 11:2 0 AM EDT 08/21/2018 11:20 AM EDT Narrative [facility] - 08/21/2018 11:20 AM EDT Specimen requisition ordered. ??Separate Pathology report to follow Erum Szymanski MD PATHOLOGY/CYTOLOGY O RDERABLES Performing Organization Address City/[facility] [address]/ZIP Co de Phone Number [facility] [address] * Specimen to Pathology (08/21/2018 11:20 AM EDT) AP Specimen 08/21/2018 11:2 0 AM EDT 08/21/2018 11:20 AM EDT Narrative [facility] - 08/21/2018 11:20 AM EDT Specimen requisition ordered. ??Separate Pathology report to follow Erum Szymanski MD PATHOLOGY/CYTOLOGY O RDFANTA [facility] [place] [address] * Specimen to Pathology (08/21/2018 11:20 AM EDT) AP Specimen 08/21/2018 11:2 0 AM EDT 08/21/2018 11:20 AM EDT Narrative [facility] - 08/21/2018 11:20 AM EDT Specimen requisition ordered. ??Separate Pathology report to follow Erum Szymanski MD PATHOLOGY/[place] [address] * Specimen to Pathology (08/21/2018 11:20 AM EDT) AP Specimen 08/21/2018 11:2 0 AM EDT 08/21/2018 11:20 AM EDT Narrative [facility] - 08/21/2018 11:20 AM EDT Specimen requisition ordered. ??Separate Pathology report to follow Erum Szymanski MD PATHOLOGY/[place] [address] * Specimen to Pathology (08/21/2018 11:20 AM EDT) AP Specimen 08/21/2018 11:2 0 AM EDT 08/21/2018 11:20 AM EDT Narrative [facility] - 08/21/2018 11:20 AM EDT Specimen requisition ordered. ??Separate Pathology report to follow Erum Szymanski MD PATHOLOGY/[place] [address] * Specimen to Pathology (08/21/2018 11:20 AM EDT) AP Specimen 08/21/2018 11:2 0 AM EDT 08/21/2018 11:20 AM EDT Narrative [facility] - 08/21/2018 11:20 AM EDT Specimen requisition ordered. ??Separate Pathology report to follow Erum Szymanski MD PATHOLOGY/[place] [address] * Specimen to Pathology (08/21/2018 11:20 AM EDT) AP Specimen 08/21/2018 11:2 0 AM EDT 08/21/2018 11:20 AM EDT Narrative [facility] - 08/21/2018 11:20 AM EDT Specimen requisition ordered. ??Separate Pathology report to follow Erum Szymanski MD PATHOLOGY/CYTOLOGY O ZHANNA Performing Organization Address City/[facility] [address]/[place] [address] * Specimen to Pathology (08/21/2018 11:20 AM EDT) AP Specimen 08/21/2018 11:2 0 AM EDT 08/21/2018 11:20 AM EDT Narrative [facility] - 08/21/2018 11:20 AM EDT Specimen requisition ordered. ??Separate Pathology report to follow Erum Szymanski MD PATHOLOGY/[place] [address] * Specimen to Pathology (08/21/2018 11:20 AM EDT) AP Specimen 08/21/2018 11:2 0 AM EDT 08/21/2018 11:20 AM EDT Narrative [facility] - 08/21/2018 11:20 AM EDT Specimen requisition ordered. ??Separate Pathology report to follow Erum Szymanski MD PATHOLOGY/CYTOLOGY O ZHANNA Performing Organization Address City/[facility] [address]/[place] [address] * Specimen to Pathology (08/21/2018 11:20 AM EDT) AP Specimen 08/21/2018 11:2 0 AM EDT 08/21/2018 11:20 AM EDT Narrative [facility] - 08/21/2018 11:20 AM EDT Specimen requisition ordered. ??Separate Pathology report to follow Erum Szymanski MD PATHOLOGY/CYTOLOGY O ZHANNA Performing Organization Address City/[facility] [address]/[place] [address] * Specimen to Pathology (08/21/2018 11:20 AM EDT) AP Specimen 08/21/2018 11:2 0 AM EDT 08/21/2018 11:20 AM EDT Narrative [facility] - 08/21/2018 11:20 AM EDT Specimen requisition ordered. ??Separate Pathology report to follow Erum Szymanski MD PATHOLOGY/CYTOLOGY O ZHANNA Performing Organization Address [facility] [address]/[place] [address] * Specimen to Pathology (08/21/2018 11:20 AM EDT) AP Specimen 08/21/2018 11:2 0 AM EDT 08/21/2018 11:20 AM EDT Narrative [facility] - 08/21/2018 11:20 AM EDT Specimen requisition ordered. ??Separate Pathology report to follow Erum Szymanski MD PATHOLOGY/CYTOLOGY O RDERAYESENIA [facility] [place] [address] * Surgical Pathology Report (08/21/2018 10:36 AM EDT) Final Diagnosis [id number] ? Location: 4T; EA11; A The signing [...] Dee MD Verified: ??08/22/2018 ?Pathologist Performed at: ??-[facility] [place] Dept. of [place]ology, [facility] [place] DISCUSSION H,K,L. ??Clinical and endoscopic correlation are [...] MD PATHOLOGY/CYTOLOGY O RDERABLES Performing Organization Address [facility]/State/[facility] Co de Phone Number [facility] [place] [address] * UPPER GI ENDOSCOPY (08/21/2018 9:37 AM EDT) UPPER GI ENDOSCOPY [facility] Endoscopy ___ Procedure Date: 08/21/2018 9:37 AM ? Patient Name: Vianney Cordero ? Date of : 1975 ? Age: 42 ? Order #: [id number] ? Instrument Name: [id number] ? ___ Procedure: ? Upper GI endoscopy Indications: ? Follow-up of Jean Baptiste's esophagus Providers: ? Erum Szymanski MD, Erik Trevino, ? RN, Miriam Gutierrez, Mining Detail Draftsperson Referring : ?WANDY Andrade Medicines: ? Midazolam [...] ? changes was 8 cm in length. Tecumseh classification ? C7M1. Mucosa was biopsied with [...] * COLONOSCOPY (08/21/2018 8:39 AM EDT) COLONOSCOPY [facility] Endoscopy Procedure Date: 08/21/2018 8:39 AM ? Patient Name: Vianney Cordero ? Date of : 1975 ? Age: 42 ? Order #: [id number] ? Instrument Name: [id number] ? Procedure: ? Colonoscopy Indications: ? Chronic diarrhea, Family history of ? colon cancer in a first-degree ? relative Providers: ? Erum Szymanski, , Erik Trevino, ? RN, Miriam Gutierrez, Mining Detail Draftsperson Referring MD: ?Sonido Cordoba, WANDY, Jena Curtis ? [place] Medicines: ? See [...] preparation was ? evaluated using the BBPS (Horace ? Bowel Preparation Scale) with scores ? [...] RN) documented in this encounter Care Teams Rotary Rig Engine Operator Relationship Specialty Start Date End Date Sonido Cordoba PA [address] [place] [address] PCP - General Family Medicine 11/16/15 06/22/20 documented as of this encounter
--- OUTSIDE RECORDS SUMMARY | 2024-10-25 13:28 | XMS_ITS | Encounter Summary ---
[place] [address] Care Team Providers Care Clothing Supervisor Name Role Phone Sonido Cordoba Primary Care Provider +1- [phone] Encounter Details Date Type Department Care Team (Late st Contact Info) Description 02/24/2019 Telephone [place] [address] Kar Andre Social History Tobacco [...] SAFETY CHECKLIST 02/24/2019 KAR Cavanaugh [address] [facility] [address] [id number] : 1975 REFERRING PROVIDER: Jena Severino PRIMARY [...] 11/26/2024 8:45 AM EST Appointment [place] [phone] Keri Avila [address] [place] [address] 12/31/2024 10:00 AM EST Office [place] [phone] Mercy Amanda MD [facility] DR [facility] [address] 04/01/2025 2:00 PM EDT Office Visit [place] [address] Erum Szymanski MD [facility] [place] [address] documented as of this encounter Visit Diagnoses Not on filedocumented in this encounter Care Teams Clothing Supervisor Relationship Specialty Start Date End Date Sonido Cordoba PA [address] [place] [address] PCP - General Family Medicine 11/16/15 06/22/20 documented as of this encounter
--- OUTSIDE RECORDS SUMMARY | 2024-10-25 13:28 | XMS_ITS | Encounter Summary ---
[place] [address] Care Team Providers Care Casino Investigator Name Role Phone Sonido Cordoba Primary Care Provider +1- [phone] Encounter Details Date Type Department Care Team (Late st Contact Info) Description 07/28/2019 Telephone [place] [address] Gracy Sanchez, [facility] Social History Tobacco Use Types [...] are two spots available on Sunday the depending on when she calls back. documented in this encounter Plan of Treatment Upcoming Encounters Date Type Department Care Team (Late st Contact Info) Description 11/26/2024 8:45 AM EST [place] [address] Keri Avila [address] [place] [address] 12/31/2024 10:00 AM EST Office [place] [phone] Mercy Amanda MD [facility] [address] [facility] [place] [address] 04/01/2025 2:00 PM EDT Office [place] [address] Erum Szymanski MD [facility] [place] [address] documented as of this encounter Visit Diagnoses Not on filedocumented in this encounter Care Teams Casino Investigator Relationship Specialty Start Date End Date Sonido Cordoba PA [address] [place] [address] PCP - General Family Medicine 11/16/15 06/22/20 documented as of this encounter
--- OUTSIDE RECORDS SUMMARY | 2024-10-25 13:28 | XMS_ITS | Encounter Summary ---
[place] [address] Care Team Providers Care Bulk Fluids Handler Name Role Phone Sonido Cordoba Primary Care Provider +1- [phone] Encounter Details Date Type Department Care Team (Late st Contact Info) Description 12/17/2018 11:00 AM EST Office [place] [address] Jena Severino PA H. pylori infection; Upper abdominal pain; Change [...] PCP: WANDY Aguilera Last Visit: 04/17/18: Vianney Jeremie Cordero is a 43 y.o. female with medical history significant for hx Rodgers's esophagus, paraesophageal hernia s/p Tyesha fundoplication (2014). FHx positive for son with Celiac disease and mother with colon cancer. I first saw her as a new patient in consult for question ofchronic diarrhea x 2.5 months, although intermittent diarrhea for past ~3 yrs. Diarrhea is often postprandial, 3-4 BM/day, Gates scale 7 or 6. Urgency. Focal RUQ pain may be worse after meals x 4 yrs. Positive Carnett's sign. Plan: stool studies. Labs. Abdominal US 06/18/18: Postprandial diarrhea 90% of the time. Also has diarrhea without meals. 5-6 BM/day, Gates scale 7, Gates 6 sometimes. Urgency but no accidents. Sometimes [...] our last visit. Submitted stool testing to [facility] end Nov, and was told today at [...] 243 lb today, Gained 8 lb since Nov. Appetite: low Diagnostic studies: 1. US abd [...] 3.66) performed by Erum Szymanski MD at [facility] ENDOSCOPY ??? PRO COLONOSCOPY, REMV LESN, SNARE N/A 08/21/2018 COLONOSCOPY, POLYPECTOMY, REMOVAL LESION BY SNARE (WRVU 4.67) performed by Erum Szymanski MD at [facility] ENDOSCOPY ? ? PRO CYSTO W URETEROSCOPY &/OR PYELOSCOPY, DX Right 06/01/2015 CYSTOURETEROSCOPY, DIAGNOSTIC performed by Darius Nuñez Jr., MD at [facility] MAIN OR ??? PRO CYSTOSCOPY, INSERT URETERAL STENT Right 06/01/2015 CYSTO, STENT PLACEMENT performed by Darius Nuñez Jr., MD at [facility] MAIN OR ??? PRO LAP, ESOPHAGOGAST FUNDOPLASTY N/A 04/05/2015 LAPAROSCOPIC TYESHA FUNDOPLASTY performed by Valentín Moura MD at [facility] MAIN OR ??? PRO PERCUT DILATN RENAL TRACT Right 06/01/2015 PERCUTANEOUS INTRO GUIDE WIRE TO ACCESS RENAL PELVIS,AND OR URETER, W\DILATION performed by Darius Nuñez Jr., MD at [facility] MAIN OR ??? PRO PERCUT REMV KID STONE, UP TO 2 CM Right 06/01/2015 NEPHROLITHOTOMY, (PCNL) PERCUTANEOUS performed by Darius Nuñez Jr., MD at [facility] MAIN OR ??? PRO UPPER GI ENDOSCOPY, BIOPSY N/A 01/27/2015 EGD WITH BIOPSY performed by Brandt Barlow MD at [facility] ENDOSCOPY ??? PRO UPPER GI ENDOSCOPY, BIOPSY N/A 02/28/2016 EGD WITH BIOPSY performed by Brandt Barlow MD at [facility] ENDOSCOPY ??? PRO UPPER GI ENDOSCOPY, BIOPSY N/A 09/04/2016 EGD WITH BIOPSY performed by Brandt Barlow MD at [facility] ENDOSCOPY ??? PRO UPPER GI ENDOSCOPY, BIOPSY N/A 09/24/2017 EGD WITH BIOPSY (WRVU 2.49) performed by Brandt Barlow MD at [facility] ENDOSCOPY ??? PRO UPPER GI ENDOSCOPY, BIOPSY N/A 08/21/2018 EGD WITH BIOPSY (WRVU 2.49) performed by Erum Szymanski MD at [facility] ENDOSCOPY ??? 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 Will send an electronic message via [employer]. PLAN (printed for patient): 1. Continue dairy [...] Severino PA-C Section of Gastroenterology [place] [address] documented in this encounter Plan of Treatment Upcoming Encounters Date Type Department Care Team (Late st Contact Info) Description 11/26/2024 8:45 AM EST [place] [address] Keri Avila [address] [place] [address] 12/31/2024 10:00 AM EST Office [place] [address] Mercy Amanda MD [facility] [address] [facility] [place] [address] 04/01/2025 2:00 PM EDT Office [place] [phone] Erum Szymanski MD [facility] [place] [address] documented as of this encounter Visit Diagnoses Diagnosis H. pylori infection Helicobacter pylori (H. pylori) Upper abdominal pain Abdominal pain, other specified site Change in bowel habits Other symptoms involving digestive system Fatty liver Other chronic nonalcoholic liver disease documented in this encounter Care Teams Bulk Fluids Handler Relationship Specialty Start Date End Date Sonido Cordoba PA [address] [place] [address] PCP - General Family Medicine 11/16/15 06/22/20 documented as of this encounter
--- OUTSIDE RECORDS SUMMARY | 2024-10-25 13:28 | XMS_ITS | Encounter Summary ---
Author Organization [facility] [place] [address] Care Team Providers Care Wood Borer Name Role Phone Sonido Cordoba Primary Care Provider +1- [phone] Reason for Visit * Consultation (Routine) - Closed Specialty Diagnoses / Procedures Referred By Aric madrigal Referred To Contact Gastroenterology Diagnoses Chronic diarrhea Sonido Cordoba PA [address] [place] [address] [facility] [place] [address] Referral ID Status Reason Start Date Expiration Date V isits Requested Visits Authorized [id number] Closed Consult, Test & Treat Connection Center 02/17/2018 02/17/2019 1 1 Encounter Details Date Type Department Care Team (Late st Contact Info) Description 04/17/2018 10:00 AM EDT Office Visit [place] [address] Jena Severino PA Diarrhea, unspecified type; Upper abdominal pain Social [...] Sometimes diarrhea without meals. Has 3-4 BM/day, [place] scale 7, [place] 6 sometimes. No blood or black tarry [...] but drinks bottled water. Diet review: B: elaine L: adebayo D: elaine or brooke Weight: stable Appetite: low Exercise: hiking Diagnostic [...] performed by Darius Nuñez Jr., MD at [facility] MAIN OR ??? PRO CYSTOSCOPY, INSERT URETERAL STENT Right 06/01/2015 CYSTO, STENT PLACEMENT performed by Darius Nuñez Jr., MD at [facility] MAIN OR ??? PRO LAP, ESOPHAGOGAST FUNDOPLASTY N/A 04/05/2015 LAPAROSCOPIC TYESHA FUNDOPLASTY performed by Valentín Moura MD at [facility] OR ??? PRO PERCUT DILATN RENAL TRACT Right 06/01/2015 PERCUTANEOUS INTRO GUIDE WIRE TO ACCESS RENAL PELVIS,AND OR URETER, W\DILATION performed by Darius Nuñez Jr., MD at [facility] OR ??? PRO PERCUT REMV KID STONE, UP TO 2 CM Right 06/01/2015 NEPHROLITHOTOMY, (PCNL) PERCUTANEOUS performed by Darius Nuñez Jr., MD at [facility] OR ??? PRO UPPER GI ENDOSCOPY, BIOPSY N/A 01/27/2015 EGD WITH BIOPSY performed by Brandt Barlow MD at [facility] ENDOSCOPY ??? PRO UPPER GI ENDOSCOPY, BIOPSY N/A 02/28/2016 EGD WITH BIOPSY performed by Brandt Barlow MD at [facility] ENDOSCOPY ??? PRO UPPER GI ENDOSCOPY, BIOPSY N/A 09/04/2016 EGD WITH BIOPSY performed by Brandt Barlow MD at [facility] ENDOSCOPY ??? PRO UPPER GI ENDOSCOPY, BIOPSY N/A 09/24/2017 EGD WITH BIOPSY (WRVU 2.49) performed by Brandt Barlow MD at [facility] ENDOSCOPY ??? 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 [...] c diff, calprotectin (will do locally at [facility]) PLAN (printed for patient): 1. Stool [...] Severino PA-C Section of Gastroenterology [place] [address] documented in this encounter Plan of Treatment Upcoming Encounters Date Type Department Care Team (Late st Contact Info) Description 11/26/2024 8:45 AM EST Appointment [place] [address] Keri Avila [address] [place] [address] 12/31/2024 10:00 AM EST Office Visit [place] [address] [facility] [address] [facility] [address] 04/01/2025 2:00 PM EDT Office Visit [place] [address] [facility] [place] [address] documented as of this encounter Procedures Procedure [...] 10:10 am) PATIENT INFO: ID #: ? [id number] ?: ??[birth year] (42 yrs) Name: ? VIANNEY NEVES ?Visit Date: 05/01/2018 09:27 am ? GABRIELLE PERFORMED BY: Performed By: ? Ankit Lockett RDMS Attending: ?Joey RIVAS, Mina Lara Referred By: ?KATHY APPLEWOOD Location: ? [place] SERVICE(S) PROVIDED: ??UABDLIM - Abdominal Limited Survey Single ? [address] ??Organ or Quadrant - [id number] INDICATIONS: ??worsening RUQ pain often postprandial. hx [...] 05/01/2018 10:10 am) PATIENT INFO: ID #: [id number] : [birth year] (42 yrs) Name: VIANNEY NEVES Visit Date: 05/01/2018 09:27 am CORDERO PERFORMED BY: Performed By: Ankit Lockett RDMS Attending: Mina Cook MD Referred By: KATHY SCHMIDT Location: [place] SERVICE(S) PROVIDED: UABDLIM - Abdominal Limited Survey Single [address]486 Organ or Quadrant - [id number] INDICATIONS: worsening RUQ pain often postprandial. hx [...] Signed Final Report 05/01/2018 10:10 am Kathy Scmhidt MD IMG US GEN ORDERA BLES * Differential, Automated (04/17/2018 11:13 AM EDT) Neutrophil % 58.7 % [facility] Neutrophil Absolute 4.95 1.70 - 6.10 x10(3)/mcL [facility] Lymph % 33.9 % [facility] Lymphocytes Abs 2.9 0.9 - 3.2 x10(3)/[facility] Monocyte % 5.2 % [facility] Monocyte Abs 0.4 0.3 - 0.9 x10(3)/[facility] Eos % 1.3 % [facility] Eosinophils Abs 0.1 0.0 - 0.4 x10(3)/[facility] Basophil % 0.4 % [facility] Baso Absolute 0.0 0.0 - 0.1 x10(3)/[facility] Immature Gran % 0.50 % [facility] Comment: Immature granulocytes(IG's)percentage and absolute count will include metamyelocytes, myelocytes, and promyelocytes. Blood smears from CBCs yielding IG's will be scanned manually for concordance. If this scan disagrees with the automated IG or if promyelocytes are noted, a manual differential will be performed. Immature Gran Absolute 0.04 0.00 - 0.04 x10(3)/[facility] Blood specimen (specimen) 04/17/2018 11:13 AM EDT 04/17/2018 11:20 AM EDT Narrative Resulting Agency Comment Spec In Lab Jena SABA HEMATOLOGY ORDERABLE S [facility] [place] [address] * Hemogram (04/17/2018 11:13 AM EDT) White Blood Cell 8.4 4.0 - 9.5 x10(3)/[facility] Red Blood Cell 4.32 4.00 - 5.21 x10(6)/[facility] Hemoglobin 13.1 11.7 - 15.5 gm/dL [facility] Hematocrit 37.9 35.7 - 45.8 % [facility] Mean Cell Volume 87.7 82.6 - 94.4 fL [facility] Mean Cell Hemoglobin 30.3 27.1 - 32.0 pg [facility] Mean Cell Hemoglobin Concentration 34.6 31.7 - 35.0 gm/dL [facility] Platelet 282 145 - 357 x10(3)/[facility] RDW Standard Deviation 39.2 37.0 - 46.0 fL [facility] RDW coefficient of variation 12.2 11.5 - 14.1 % [facility] Mean Platelet Volume 10.1 7.6 - 12.9 fL [facility] NRBC% auto 0.0 % [facility] NRBC Absolute 0.000 0.000 - 0.000 x10(3)/[facility] Blood specimen (specimen) 04/17/2018 11:13 AM EDT 04/17/2018 11:20 AM EDT Narrative Resulting Agency Comment Spec In Lab Jena SABA HEMATOLOGY ORDERABLE S [facility] [place] [address] * (ABNORMAL) CRP, acute inflammation (04/17/2018 11:13 AM EDT) C-Reactive Protein 8.0(H) <=4.9 mg/L [facility] Blood specimen (specimen) 04/17/2018 11:13 AM EDT 04/17/2018 11:20 AM EDT Narrative Resulting Agency Comment Spec In Lab Kathy Schmidt MD CHEMISTRY ORDERAB LES [facility] [place] [address] * TSH (04/17/2018 11:13 AM EDT) Thyroid Stimulating Hormone 2.37 0.27 - 4.20 mlU/ML [facility] Blood specimen (specimen) 04/17/2018 11:13 AM EDT 04/17/2018 11:20 AM EDT Narrative Resulting Agency Comment Spec In Lab Kathy Schmidt MD CHEMISTRY ORDERAB LES Performing Organization Address [facility]/ZIP Co de Phone Number [facility] [place] [address] * IgA (04/17/2018 11:13 AM EDT) IgA 162 70 - 400 mg/dL [facility] Blood specimen (specimen) 04/17/2018 11:13 AM EDT 04/17/2018 11:20 AM EDT Narrative Resulting Agency Comment Spec In Lab Kathy Schmidt MD CHEMISTRY ORDERAB LES Performing Organization Address [facility] Co de Phone Number [facility] [place] [address] * Tissue transglutaminase, IgA (04/17/2018 11:13 AM EDT) TTG IgA Ab <1.2 <4.0 (Negative) unit/mL [facility] Comment: Test Performed by: [facility] - [address] [address] Blood specimen (specimen) 04/17/2018 11:13 AM EDT 04/17/2018 12:30 PM EDT Narrative Resulting Agency Comment Spec In Lab Kathy Schmidt MD IMMUNOLOGY ORDERA BLES Performing Organization Address [facility]/ZIP Co de Phone Number [facility] [place] [address] * (ABNORMAL) Comprehensive metabolic panel (non-fasting) (04/17/2018 11:13 AM EDT) Glucose 94 65 - 199 mg/dL [facility] Comment:Diabetes: >=200 mg/d L plus symptoms Blood Urea Nitrogen 13 8 - 18 mg/dL [facility] Creatinine 0.86 0.70 - 1.20 mg/dL [facility] Sodium 141 135 - 145 mmol/L [facility] Potassium 4.0 3.5 - 5.0 mmol/L [facility] Comment: Please note: ??Patients with WBC >100,000 may have falsely elevated Potassium levels. ??For accurate Potassium quantification in these patients send serum separator tube (gold top) for subsequent determinations. ??Contact the Clinical Chemistry Laboratory if there are any questions. Chloride 102 98 - 107 mmol/L [facility] Carbon Dioxide 23 22 - 31 mmol/L [facility] Anion Gap 16(H) 5 - 15 mmol/L [facility] Calcium 9.3 8.5 - 10.5 mg/dL [facility] Protein, Total 6.9 6.1 - 8.0 gm/dL [facility] Albumin 4.0 3.2 - 5.2 gm/dL [facility] Aspartate Aminotransferase 14 0 - 30 unit/L [facility] Alanine Aminotransferase 9 0 - 30 unit/L [facility] Alkaline Phosphatase 80 40 - 104 unit/L [facility] Bilirubin, Total 0.4 0.2 - 1.3 mg/dL [facility] Est Glomerular Filtration Rate 84 >=60 mL/min/1. 73 m?? [facility] Comment: The eGFR was calculated using the CKD-EPI equation. As with all creatinine based estimates of kidney function, eGFR values calculated with the CKD-EPI equation are not accurate in patients with acute kidney failure, extremes of body mass or the acutely ill. http://[employer]/nkdep http://[employer]/[facility]ORDnkf eGFR 97 >=60 mL/min/1. 73 m?? [facility] Comment: The eGFR was calculated using the CKD-EPI equation. As with all creatinine based estimates of kidney function, eGFR values calculated with the CKD-EPI equation are not accurate in patients with acute kidney failure, extremes of body mass or the acutely ill. http://[employer]/nkdep http://[employer]/[facility] Blood specimen (specimen) 04/17/2018 11:13 AM EDT 04/17/2018 11:20 AM EDT Narrative Resulting Agency Comment Spec In Lab Kathy Schmidt MD CHEMISTRY ORDERAB LES Performing Organization Address City/State/[facility] Co de Phone Number [facility] [place] [address] documented in this encounter Visit Diagnoses Diagnosis Diarrhea, unspecified type Upper abdominal pain Abdominal pain, other specified site Upper abdominal pain Abdominal pain, other specified site documented in this encounter Care Teams Wood Borer Relationship Specialty Start Date End Date Sonido Cordoba PA [address] [place] [address] PCP - General Family Medicine 11/16/15 06/22/20 documented as of this encounter
--- OUTSIDE RECORDS SUMMARY | 2024-10-25 13:28 | XMS_ITS | Encounter Summary ---
Author Organization [facility] Address [facility] [place] [address] Care Team Providers Care Food Sales Clerk Name Role Phone Sonido Cordoba Primary Care Provider +1- [phone] Encounter Details Date Type Department Care Team (Latest Contact Info) Description 03/19/2019 8:30 AM EDT - 03/19/2019 10:25 AM EDT Hospital En[place] [address] Kathy Carnes MD [facility] [place] [address] Upper abdominal pain; Abdominal bloating; Nausea without [...] 11/26/2024 8:45 AM EST Appointment [place] [address] Keri Avila [address] [place] [address] 12/31/2024 10:00 AM EST Office [place] [address] Mercy Amanda MD [facility] DR [facility] [place] [address] 04/01/2025 2:00 PM EDT Office [place] [address] Erum Szymanski MD [facility] [place] [address] documented as of this encounter [...] the number below. Electronically signed by: Aliya Nguyen, [facility] ([phone]), at 03/19/2019 10:18 AM ? Aliya Nguyen, Staff Physician Electronically Signed Final Report ?? 03/19/2019 10:24 am Narrative 03/19/2019 10:25 AM EDT Abdominal ? (Signed Final 03/19/2019 10:24 am) PATIENT INFO: ID #: ? [id number] ?: ??[birth year] (43 yrs) Name: ? EMIL NEVES ?Visit Date: 03/19/2019 09:39 am ? GABRIELLE PERFORMED BY: Performed By: ? Michaela Guy RDMS Attending: ?Patrick RIVAS, Aliya Grimes Referred By: ?KATHY CARNES Location: ? [place] SERVICE(S) PROVIDED: ??UABDLIM - Abdominal Limited Survey Single ? [id number] ??Organ or Quadrant - [id number] INDICATIONS: ??postprandial RUQ pain, bloating, nausea. ??Concern [...] 03/19/2019 10:24 am) PATIENT INFO: ID #: [id number] : [birth year] (43 yrs) Name: EMIL NEVES Visit Date: 03/19/2019 09:39 am GABRIELLE PERFORMED BY: Performed By: Michaela Guy RDMS Attending: Aliya Nguyen MD Referred By: KATHY CARNES Location: [place] SERVICE(S) PROVIDED: UABDLIM - Abdominal Limited Survey Single [address]250 Organ or Quadrant - [id number] INDICATIONS: postprandial RUQ pain, bloating, nausea. Concern [...] vomiting documented in this encounter Care Teams Food Sales Clerk Relationship Specialty Start Date End Date Sonido Cordoba PA [address] [place] [address] PCP - General Family Medicine 11/16/15 06/22/20 documented as of this encounter
--- OUTSIDE RECORDS SUMMARY | 2024-10-25 13:28 | XMS_ITS | Encounter Summary ---
Author Organization [facility] Address [facility] [place] [address] Care Team Providers Care Community Relations Specialist Name Role Phone Sonido Cordoba Primary Care Provider +1- [phone] Encounter Details Date Type Department Care Team (Latest Contact Info) Description 03/19/2019 10:26 AM EDT - 03/19/2019 11:59 PM EDT Hospital Encounter XRay at [address] [place] [address] Tyler Nava, [facility] [place] [address] Right foot pain Discharge Disposition: Home Social [...] 11/26/2024 8:45 AM EST [place] [address] Keri Avila [address] [place] [address] 12/31/2024 10:00 AM EST Office [place] [address] Mercy Amanda MD [facility] DR [place] [address] 04/01/2025 2:00 PM EDT Office [place] [address] Erum Szymanski MD [facility] [place] [address] documented as of this encounter Procedures Procedure [...] please contact the number below. Tyler Nava DPM IMG DX ORDERABLES documented in this encounter Visit Diagnoses Diagnosis Right foot pain Pain in limb documented in this encounter Care Teams Community Relations Specialist Relationship Specialty Start Date End Date Sonido Cordoba PA [address] [place] [address] PCP - General Family Medicine 11/16/15 06/22/20 documented as of this encounter
--- OUTSIDE RECORDS SUMMARY | 2024-10-25 13:28 | XMS_ITS | Encounter Summary ---
[place] [address] Care Team Providers Care Wind Turbine Mechanic Name Role Phone Sonido Cordoba Primary Care Provider +1- [phone] Encounter Details Date Type Department Care Team (Late st Contact Info) Description 12/17/2018 10:30 AM EST Procedure [place] [address] Awais Kebede PA [address] [place] [address] [place] [address] Fatty liver Social History Tobacco Use Types [...] FIBROSCAN Procedure(s): FIBROSCAN Pre-Procedure Diagnose(s): Fatty liver [facility] Liver Fibrosis Assessment Report Indication: Hepatomegaly and hepatic steatosis on ultrasound Performed by: WANDY Negrete Procedure: Vibration Controlled Transient Elastography (VCTE) or Fibroscan [place] Protocol: Patient's identity, procedure and site were [...] 11/26/2024 8:45 AM [place] [address] [address]and[address]Justus Keri [address] [address] 12/31/2024 10:00 AM EST Office [place] [address] [facility] DR [facility] [address] 04/01/2025 2:00 PM EDT Office [place] [address] [facility] DR GASTROENTEROLOGY [place], [place] [address] documented as of this encounter Procedures Procedure Name Priority Date/Time Associated Diagnosis Comments [id number] Routine 12/17/2018 10:30 AM EST Fatty liver documented in this encounter Results * [id number] (12/17/2018 10:30 AM EST) Narrative Awais Kebede PA - 12/17/2018 10:30 AM EST Awais Kebede PA ? 12/17/2018 11:06 AM [facility] Liver Fibrosis Assessment Report Indication: ?? Hepatomegaly and hepatic steatosis on ultrasound Performed by: ??WANDY Negrete Procedure: Vibration Controlled Transient Elastography (VCTE) or Fibroscan [place] Protocol: Patient's identity, procedure and site were [...] disease documented in this encounter Care Teams Wind Turbine Mechanic Relationship Specialty Start Date End Date Sonido Cordoba PA [address] [place] [address] PCP - General Family Medicine 11/16/15 06/22/20 documented as of this encounter
--- OUTSIDE RECORDS SUMMARY | 2024-10-25 13:28 | XMS_ITS | Encounter Summary ---
Author Organization [facility] [place] [address] Care Team Providers Care Hat Liner Name Role Phone Sonido Cordoba Primary Care Provider +1- [phone] Encounter Details Date Type Department Care Team (Late st Contact Info) Description 08/18/2019 Telephone [place] [phone] Lizbeth Guzman TENNIS RACKET REPAIRER [facility] [place] [address] Social History Tobacco Use Types Packs/Day Years [...] 11/26/2024 8:45 AM EST Appoint[place] [address] Keri Avila [address] [place] [address] 12/31/2024 10:00 AM EST Office [place] [address] Mercy Amanda MD [facility] [address] [facility] [address] 04/01/2025 2:00 PM EDT Office Visit [place] [address] Erum Szymanski MD [facility] [place] [address] documented as of this encounter Visit Diagnoses Not on filedocumented in this encounter Care Teams Hat Liner Relationship Specialty Start Date End Date Sonido Cordoba PA [address] [place] [address] PCP - General Family Medicine 11/16/15 06/22/20 documented as of this encounter
--- OUTSIDE RECORDS SUMMARY | 2024-10-25 13:28 | XMS_ITS | Encounter Summary ---
Author Organization [facility] [place] [address] Care Team Providers Care Insulation Worker Interior Surface Name Role Phone Sonido Cordoba Primary Care Provider +1- [phone] Encounter Details Date Type Department Care Team (Late st Contact Info) Description 08/17/2019 Orders [place] [phone] Lizbeth Guzman [employer] MECHANIC [facility] [place] [address] Right foot pain Social History Tobacco Use [...] 11/26/2024 8:45 AM EST [place] [address] DandreJustusKeri [address] [place] [address] 12/31/2024 10:00 AM EST Office [place] [address] Mercy Amanda MD [facility] DR [place] [address] 04/01/2025 2:00 PM EDT Office [place] [address] Erum Szymanski MD [facility] [place] [address] documented as of this encounter Results * [...] limb documented in this encounter Care Teams Insulation Worker Interior Surface Relationship Specialty Start Date End Date Sonido Cordoba PA [address] [place] [address] PCP - General Family Medicine 11/16/15 06/22/20 documented as of this encounter
--- OUTSIDE RECORDS SUMMARY | 2024-10-25 13:28 | XMS_ITS | Encounter Summary ---
Author Organization [facility] [place] [address] Care Team Providers Care Siderographer Name Role Phone Sonido Cordoba Primary Care Provider +1- [phone] Reason for Visit * Reason Comments Right Foot Pain * Consultation (Routine) - Specialty Diagnoses / Procedures Referred By Aric madrigal Referred To Contact Podiatry Diagnoses PLANTAR FASCIITIS, RIGHT Sonido Cordoba PA [address] [place] [address] [facility] [place] [address] Referral ID Status Reason Start Date Expiration Date V isits Requested Visits Authorized [id number] Consult, Test & Treat Connection Center 12/23/2018 12/23/2019 6 6 Encounter Details Date Type Department Care Team (Late st Contact Info) Description 03/19/2019 10:00 AM EDT Office [place] [address] Tyler Nava DPM [facility] [place] [id number] Right foot pain; Peroneal tendinitis of [...] car seat 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 I had incorrectly [...] 11/26/2024 8:45 AM EST Appointment [place] [phone] Keri Avila [address] [place] [address] 12/31/2024 10:00 AM EST Office [place] [address] Mercy Amanda MD [facility] [address] SAL [facility] [address] 04/01/2025 2:00 PM EDT Office [place] [address] Erum Szymanski MD [facility] [place] [address] documented as of this encounter Results * XR Foot Min 3 views Right (Generic) (03/19/2019 10:48 AM EDT) Anatomical Region Laterality Modality Foot Right Digital Radiogra phy Impressions 03/19/2019 2:23 PM EDT No acute osseous pathology. Thank you for letting us participate in the care of this patient. For questions regarding this report, please contact the number below. ? Electronically signed by: GREGORIA Levine [facility] ([phone]), at 03/19/2019 2:23 PM Narrative 03/19/2019 2:23 PM EDT EXAMINATION: XR [...] contact the number below. Electronically signed by: GREGORIA Levine [facility]([phone]), at 03/19/2019 2:23 PM Tyler Nava DPM IMG DX ORDERABLES documented in this encounter Visit Diagnoses Diagnosis Right foot pain Pain in limb Peroneal tendinitis of right lower extremity Other enthesopathy of ankle and tarsus Right foot pain Pain in limb documented in this encounter Care Teams Siderographer Relationship Specialty Start Date End Date Sonido Cordoba PA [address] [place] [address] PCP - General Family Medicine 07/06/20 documented as of this encounter
--- OUTSIDE RECORDS SUMMARY | 2024-10-25 13:28 | XMS_ITS | Encounter Summary ---
Author Organization [facility] [place] [place] [address] Care Team Providers Care Oncology Social Work Name Role Phone Sonido [place] Primary Care Provider +1- [phone] Reason for Visit * Reason Comments Foot Pain Encounter Details Date Type Department Care Team (Late st Contact Info) Description 04/17/2019 11:15 AM EDT [place] [address] Tyler Nava DPM [facility] [place] [address] Peroneal tendinitis of right lower extremity Social [...] 11/26/2024 8:45 AM EST Appointment Ultrasound at [place] [phone] [address]eri Avila [address] [address] 12/31/2024 10:00 AM EST Office [place] [phone] Mercy Amanda MD [facility] [address] [facility] [address] 04/01/2025 2:00 PM EDT Office [place] [address] Erum Szymanski MD [facility] [place] [address] documented as of this encounter Visit Diagnoses Diagnosis Peroneal tendinitis of right lower extremity Other enthesopathy of ankle and tarsus documented in this encounter Care Teams Oncology Social Work Relationship Specialty Start Date End Date Sonido Cordoba PA [address] [place] [address] PCP - General Family Medicine 11/16/15 06/22/20 documented as of this encounter
--- OUTSIDE RECORDS SUMMARY | 2024-10-25 13:28 | XMS_ITS | Encounter Summary ---
[place] [address] Care Team Providers Care Twisting Department End Finder Name Role Phone Sonido [place] Primary Care Provider +1- [phone] Encounter Details Date Type Department Care Team (Late st Contact Info) Description 01/09/2019 Telephone [place] [address] Melina Hobbs CMA Social History Tobacco Use [...] Prior Authorization 4L Gastroenterology / [place] [address] ?? Subscriber Insurance: [place] Medicaid ?? Phone: Fax: ? Physician: Jena Severino ? Return ?? Pharmacy: [facility] ?? Phone: Fax: ?? Medication Requested: tetracycline ?? Strength: Frequency: ?? Disp.: Refills:0 ?? 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 Diagnosis for this medication: H.pylori infection ?? ICD-10 code: (A04.8) ?? Prior medications trialed in this patient: Amoxicillin 2018, Clarithromycin 2018, Pantoprazole currently taking ? Medication: Outcome/Adverse Reactions:Treatment Failure ?? Decision: approved ?? Tracking number: [id number] Date: 01/09/2019 Until 01/23/2019 documented in this encounter Plan of Treatment Upcoming Encounters Date Type Department Care Team (Late st Contact Info) Description 11/26/2024 8:45 AM EST Appointment Ultrasound at [address] Keri Avila [address] [place] [address] 12/31/2024 10:00 AM EST Office Visit Weight Center at [place] [phone] Mercy Amanda MD [facility] [address] [facility] [address] 04/01/2025 2:00 PM EDT Office Visit Gastroenterology at [address] Erum Szymanski MD [facility] GASTROENTEROLOGY [place], [place] [phone] documented as of this encounter Visit Diagnoses Not on filedocumented in this encounter Care Teams Twisting Department End Finder Relationship Specialty Start Date End Date Sonido Cordoba PA [address] [place] [address] PCP - General Family Medicine 11/16/15 06/22/20 documented as of this encounter
--- OUTSIDE RECORDS SUMMARY | 2024-10-25 13:28 | XMS_ITS | Encounter Summary ---
Author Organization [facility] [place] [address] Care Team Providers Care Able Bodied Seaman Name Role Phone Sonido [place] Primary Care Provider +1- [phone] Encounter Details Date Type Department Care Team (Late st Contact Info) Description 12/17/2018 Orders [place] [phone] [facility] [place] [address] Social History Tobacco Use Types Packs/Day Years [...] 11/26/2024 8:45 AM EST Appointment [place] [phone] Keri Avila [address] [place] [address] 12/31/2024 10:00 AM EST Office Visit [place] [phone] [facility] [address] [facility] [address] 04/01/2025 2:00 PM EDT Office Visit [place] [phone] [facility] [place] [address] documented as of this encounter Visit Diagnoses Not on filedocumented in this encounter Care Teams Able Bodied Seaman Relationship Specialty Start Date End Date Sonido Cordoba PA [address] [place] [address] PCP - General Family Medicine 11/16/15 06/22/20 documented as of this encounter
--- OUTSIDE RECORDS SUMMARY | 2024-10-25 13:28 | XMS_ITS | Encounter Summary ---
[place] [address] Care Team Providers Care Rail Transportation Tabeler Name Role Phone Sonido [place] Primary Care Provider +1- [phone] Reason for Visit * Reason Onset Date Comments Prior Authorization 12/26/2018 Encounter Details Date Type Department Care Team (Late st Contact Info) Description 12/26/2018 Telephone [place] [address] Kaia Cherry CCMA Prior Authorization Social History [...] Prior Authorization 4L Gastroenterology / [place] [address] Subscriber Insurance: [place] Medicaid Phone: Fax: Physician: Jena Severino Return [facility]acy: [facility] Phone: Fax: Medication Requested: Pylera ( [id number]) Strength:[phone] Frequency: take 3 capsules by mouth 4 [...] 11/26/2024 8:45 AM EST [place] [address] Keri Avila [address] [place], [place] [address] 12/31/2024 10:00 AM EST Office Visit Weight Center at [place] [phone] Mercy Amanda MD [facility] [address] [facility] [address] 04/01/2025 2:00 PM EDT Office Visit Gastroenterology at [place] [phone] Erum Szymanski MD [facility] [place] [address] documented as of this encounter Visit Diagnoses Not on filedocumented in this encounter Care Teams Rail Transportation Tabeler Relationship Specialty Start Date End Date Sonido Cordoba PA [address] [place] [address] PCP - General Family Medicine 11/16/15 06/22/20 documented as of this encounter
--- OUTSIDE RECORDS SUMMARY | 2024-10-25 13:28 | XMS_ITS | Encounter Summary ---
[place] [address] Care Team Providers Care Head Of Acquisitions Name Role Phone Sonido [place] Primary Care Provider +1- [phone] Encounter Details Date Type Department Care Team (Late st Contact Info) Description 06/12/2019 [place] [phone] Cisco Leroy LPN Nephrolithiasis Social History Tobacco [...] 11/26/2024 8:45 AM EST Appoint[place] [phone] Keri Avila [address] [place] [address] 12/31/2024 10:00 AM EST Office [place] [address] Mercy Amanda MD [facility] DR [facility] [address] 04/01/2025 2:00 PM EDT Office [place] [phone] Erum Szymanski MD [facility] [place] [address] documented as of this encounter Visit Diagnoses Diagnosis Nephrolithiasis Calculus of kidney documented in this encounter Care Teams Head Of Acquisitions Relationship Specialty Start Date End Date Sonido [place]oba PA [address] [place] [address] PCP - General Family Medicine 11/16/15 06/22/20 documented as of this encounter
--- OUTSIDE RECORDS SUMMARY | 2024-10-25 13:28 | XMS_ITS | Encounter Summary ---
[place] [address] Care Team Providers Care Automation Tester Name Role Phone Sonido [place] Primary Care Provider +1- [phone] Encounter Details Date Type Department Care Team (Late st Contact Info) Description 03/21/2019 4:30 PM EDT Tech [place] [address] Cydney Branham, SCHOOL LEADER [address] [place] [address] Social History Tobacco Use Types Packs/Day Years [...] 11/26/2024 8:45 AM EST Appoint[place] [address] DandreJustus Keri [address] [place] [address] 12/31/2024 10:00 AM EST Office Visit Weight Center at [place] [phone] Mercy Amanda MD [facility] DR [facility] [address] 04/01/2025 2:00 PM EDT Office Visit [place] [address] Erum Szymanski MD [facility] [place] [address] documented as of this encounter Visit Diagnoses Not on filedocumented in this encounter Care Teams Automation Tester Relationship Specialty Start Date End Date Sonido [place] PA [address] [place] [address] PCP - General Family Medicine 11/16/15 06/22/20 documented as of this encounter
--- OUTSIDE RECORDS SUMMARY | 2024-10-25 13:29 | XMS_ITS | Encounter Summary ---
[place] [address] Care Team Providers Care Park Worker Name Role Phone Sonido [place] Primary Care Provider +1- [phone] Reason for Visit * Auth/Cert Specialty Diagnoses / Procedures Referred By Aric madrigal Referred To Contact Diagnoses 6 months for egd with barretts biopies from 02/28/16 Procedures PRO UPPER GI ENDOSCOPY, DIAGNOSTIC EGD, UPPER GI ENDOSCOPY Referral ID Status Reason Start Date Expiration Date Visits Re quested Visits Authorized [id number] 1 1 Encounter Details Date Type Department Care Team (Latest Contact Info) Description 09/04/2016 8:40 AM EDT - 09/04/2016 11:28 AM EDT Hospital Encounter [place] [address] Brandt Barlow MD Discharge Disposition: Home Social History Tobacco Use [...] better as expected. Sunday-Sunday Same Day Endo [phone] 7a-8p Otherwise contact [phone] and ask to speak to the plastic card grader cardroom seasonal package handler Follow-up care is a harper part of [...] 11/26/2024 8:45 AM EST Appoint[place] [address] Keri Avila [address] [place] [address] 12/31/2024 10:00 AM EST Office [place] [phone] Mercy Amanda MD [facility] [address] [facility] [address] 04/01/2025 2:00 PM EDT Office Visit Gastroenterology at [place] [phone] Erum Szymanski MD [facility] [place] [address] documented as of this encounter Procedures Procedure [...] AM EDT 09/04/2016 10:49 AM EDT Narrative [facility] - 09/04/2016 10:49 AM EDT Specimen requisition ordered. ??Separate Pathology report to follow Brandt Barlow MD PATHOLOGY/CYTOLOGY O ZHANNA Performing Organization Address [facility] [place] [address] * Specimen to Pathology (surgical or derm) (09/04/2016 10:49 AM EDT) AP Specimen 09/04/2016 10:4 9 AM EDT 09/04/2016 10:49 AM EDT Narrative [facility] - 09/04/2016 10:49 AM EDT Specimen requisition ordered. ??Separate Pathology report to follow Brandt Barlow MD PATHOLOGY/CYTOLOGY O ZHANNA Performing Organization Address [facility] Co de Phone Number [place] [phone] * Specimen to Pathology (surgical or derm) (09/04/2016 10:49 AM EDT) AP Specimen 09/04/2016 10:4 9 AM EDT 09/04/2016 10:49 AM EDT Narrative [facility] - 09/04/2016 10:49 AM EDT Specimen requisition ordered. ??Separate Pathology report to follow Brandt Barlow MD PATHOLOGY/CYTOLOGY O RDFANTA Performing Organization Address [facility] Co de Phone Number [facility] [place] [address] * Specimen to Pathology (surgical or derm) (09/04/2016 10:49 AM EDT) AP Specimen 09/04/2016 10:4 9 AM EDT 09/04/2016 10:49 AM EDT Narrative [facility] - 09/04/2016 10:49 AM EDT Specimen requisition ordered. ??Separate Pathology report to follow Brandt Barlow MD PATHOLOGY/CYTOLOGY O ZHANNA Performing Organization Address [facility] [place] [address] * Specimen to Pathology (surgical or derm) (09/04/2016 10:49 AM EDT) AP Specimen 09/04/2016 10:4 9 AM EDT 09/04/2016 10:49 AM EDT Narrative [facility] - 09/04/2016 10:49 AM EDT Specimen requisition ordered. ??Separate Pathology report to follow Brandt Barlow MD PATHOLOGY/CYTOLOGY O ZHANNA Performing Organization Address [facility] [place] [address] * Surgical Pathology Report (09/04/2016 10:48 AM EDT) Pathologist [facility] Final Diagnosis [id number] ?Location: ; EA07; A The signing pathologist has (i) examined [...] sing: (T1) ??sns 09/06/2016 4:13 PM EDT [facility] GI Biopsy 09/04/2016 10:4 8 AM EDT 09/04/2016 10:48 AM EDT GI Biopsy 09/04/2016 10:4 8 AM EDT 09/04/2016 10:48 AM EDT GI Biopsy 09/04/2016 10:4 8 AM EDT 09/04/2016 10:48 AM EDT GI Biopsy 09/04/2016 10:4 8 AM EDT 09/04/2016 10:48 AM EDT GI Biopsy 09/04/2016 10:4 8 AM EDT 09/04/2016 10:48 AM EDT Brandt Barlow MD PATHOLOGY/CYTOLOGY Nan [facility]AO [facility] [place] [address] * UPPER GI ENDOSCOPY (09/04/2016 10:00 AM EDT) UPPER GI ENDOSCOPY [facility] Endoscopy Procedure Date: 09/04/2016 10:00 AM ? Patient Name: Vianney Cordero ? N: [id number] ? Date of : 1975 ? Age: 40 ? Order #: [id number] ? Instrument Name: [id number] ? Procedure: ? Upper GI endoscopy Indications: [...] Procedure Code(s): ?? --- Professional --- ? 13501, Esophagogastroduod enoscopy, ? flexible, transoral; with biopsy, ? single or multiple CPT copyright 2015 [employer]. All rights reserved. The codes documented in this report are preliminary and upon preschool aide review may be revised to meet current [...] RN) documented in this encounter Care Teams Park Worker Relationship Specialty Start Date End Date Sonido [place] PA [address] [place] [address] PCP - General Family Medicine 11/16/15 06/22/20 documented as of this encounter
--- OUTSIDE RECORDS SUMMARY | 2024-10-25 13:29 | XMS_ITS | Encounter Summary ---
Author Organization [facility] [place] [address] Care Team Providers Care Linter Drier Operator Name Role Phone Sonido [place] Primary Care Provider +1- [phone] Encounter Details Date Type Department Care Team (Late st Contact Info) Description 11/15/2017 [place] [phone] Gracy Ellis PA [facility] [place] [address] Social History Tobacco Use Types Packs/Day Years [...] 11/26/2024 8:45 AM [place] [address] Keri Avila [address] [place] [address] 12/31/2024 10:00 AM EST Office [place] [address] Mercy Amanda MD [facility] DR [facility] [address] 04/01/2025 2:00 PM EDT Office [place] [address] Erum Szymanski MD [facility] [place] [address] documented as of this encounter Visit Diagnoses Not on filedocumented in this encounter Care Teams Linter Drier Operator Relationship Specialty Start Date End Date Sonido [place] PA [address] [place] [address] PCP - General Family Medicine 11/16/15 06/22/20 documented as of this encounter
--- OUTSIDE RECORDS SUMMARY | 2024-10-25 13:29 | XMS_ITS | Encounter Summary ---
[place] [address] Care Team Providers Care Carbon Capture Power Plant Manager Name Role Phone Sonido [place] Primary Care Provider +1- [phone] Reason for Visit * Auth/Cert Specialty Diagnoses / Procedures Referred By Conteulalio t Referred To Contact Diagnoses 12 wk f/u from 01/27/15 Procedures EGD, UPPER GI ENDOSCOPY Referral ID Status Reason Start Date Expiration Date Visits Re quested Visits Authorized [id number] 1 1 Encounter Details Date Type Department Care Team (Latest Contact Info) Description 02/28/2016 8:22 AM EDT - 02/28/2016 10:23 AM EDT Hospital En[place] [address] Brandt Barlow MD Discharge Disposition: Home Social [...] better as expected. Sunday-Sunday Same Day Endo [phone] 7a-8p Otherwise contact [phone] and ask to speak to the structural mill supervisor hvac refrigeration technician Follow-up care is a harper part of [...] 11/26/2024 8:45 AM [place] [address] Keri Avila [address] [place] [address] 12/31/2024 10:00 AM EST Office [place] [address]2656-[address] Mercy Amanda MD [facility] DR [facility] [address] 04/01/2025 2:00 PM EDT Office [place] [address] Erum Szymanski MD [facility] [place] [address] documented as of this encounter Procedures Procedure Name Priority Date/Time Associated Diagnosis Comments SURGICAL PATHOLOGY REPORT Routine 02/28/2016 9:30 AM EDT SPECIMEN TO PATHOLOGY Routine 02/28/2016 9:30 AM EDT EGD WITH BIOPSY (WRVU 2.39) 02/28/2016 9:09 AM EDT Dyspepsia UPPER GI ENDOSCOPY Routine 02/28/2016 9: 00 AM EDT documented in this encounter Results * Surgical Pathology Report (02/28/2016 9:30 AM EDT) Final Diagnosis [id number] ? Location: 4T; EA09; A The signing pathologist has (i) examined the relevant preparation(s) for the specimen(s) and (ii) rendered or confirmed the diagnosis(es). . 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 No dysplasia is seen. 02/28/16 AAY 02/29/16 Verified by: ? Ayad Dee MD ?Pathologist ?(Electronic Signature) The attending pathologist whose [...] sing: (T1) ??mmk 02/29/2016 2:22 PM EDT [facility] GI Biopsy 02/28/2016 9:30 AM EDT 02/28/2016 9:30 AM EDT Brandt Barlow MD PATHOLOGY/CYTOLOGY O ZHANNA Performing Organization Address [facility] Co de Phone Number [facility] [place] [address] * Specimen to Pathology (surgical or derm) (02/28/2016 9:30 AM EDT) AP Specimen 02/28/2016 9:30 AM EDT 02/28/2016 9:30 AM EDT Narrative [facility] - 02/28/2016 9:30 AM EDT Specimen requisition ordered. ??Separate Pathology report to follow Brandt Barlow MD PATHOLOGY/CYTOLOGY O ZHANNA Performing Organization Address [facility] Co de Phone Number [facility] [place] [address] * UPPER GI ENDOSCOPY (02/28/2016 9:00 AM EDT) UPPER GI ENDOSCOPY [facility] Endoscopy Patient Name: Vianney Saini ? Procedure Date: 02/28/2016 9:00 AM ? Date of : 1975 ? Age: 40 ? Order #: [id number] ? Procedure: ? Upper GI endoscopy Indications: ? Heartburn, Follow-up of esophageal ? reflux; history of Grade C ? esophagitis; s/p Rosy ? fundoplication. Providers: ? Brandt Barlow MD, Shasta Maciel ? Naty, NIMCO, Clovis Ramos RN Referring MD: ?WANDY Andrade Medicines: ? Midazolam 4 [...] - Esophagogastric landmarks ? identified. ? - River-colored mucosa suspicious ? for long-segment Rodgers's esophagus. ? - Specimens collected. Recommendation: ?- Return to primary care physician as ? previously scheduled. ? - Results of biopsies will be ? available in 8-10 days and sent to ? patient and provider ? Procedure Code(s): ?? --- Professional --- ? 26949, Esophagogastroduod enoscopy, ? flexible, transoral; diagnostic, ? including collection of specimen(s) ? by brushing or washing, when ? performed (separate procedure) CPT copyright 2014 [employer]. All rights reserved. The codes documented in this report are preliminary and upon donor recruitment manager review may be revised to meet [...] 0912, Until Sun02/28/16 at 1230, Intra-Operative (Intra-Procedure) 0912 (Given - Provid er: Clovis Ramos RN) [...] Ramos RN)0919 (Given - Provider: Clovis Ramos RN)09 (Given - Provider: Clovis Ramos RN) midazolam (PF) (VERSED) 1 mg/mL multi-dose injection (CANCELED) ONCE PRN, Starting on Sun02/28/16 at 0912, Until Sun02/28/16 at 1230, Intra-Operative (Intra-Procedure), Routine 911 (Given - Provid er: Clovis Ramos RN)0915 (Given - Provider: Clovis Ramos RN)0919 (Given - Provider: Clovis Ramos RN)09 (Given - Provider: Clovis Ramos RN) documented in this encounter Care Teams Carbon Capture Power Plant Manager Relationship Specialty Start Date End Date Sonido [place] PA [address] [place] [address] PCP - General Family Medicine 11/16/15 06/22/20 documented as of this encounter
--- OUTSIDE RECORDS SUMMARY | 2024-10-25 13:29 | XMS_ITS | Encounter Summary ---
Author Organization [facility] Address [facility] [place] [address] Care Team Providers Care Photographer'S Model Name Role Phone Sonido [place] Primary Care Provider +1- [phone] Encounter Details Date Type Department Care Team (Latest Contact Info) Description 10/26/2017 10:38 AM EST - 10/26/2017 11:59 PM [facility] Hospital Encounter XRay at [address] [place] [address] Bakari Robison MD [facility] [place] [address] Left ankle pain, unspecified chronicity Discharge Disposition: [...] 11/26/2024 8:45 AM EST Appointment [place] [address] Keri Avila [address] [place] [address] 12/31/2024 10:00 AM EST Office Visit [place] [address] Mercy Amanda MD [facility] [address] [facility] [place] [address] 04/01/2025 2:00 PM EDT Office Visit [place] [address] Erum Szymanski MD [facility] [place] [address] documented as of this encounter Procedures Procedure [...] attachment to the plantar calcaneus. Procedure Note Davina Fuentes MD - 10/26/2017 EXAMINATION: XR ANKLE MIN [...] chronicity documented in this encounter Care Teams Photographer'S Model Relationship Specialty Start Date End Date Sonido [place] PA [address] [place] [address] PCP - General Family Medicine 11/16/15 06/22/20 documented as of this encounter
--- OUTSIDE RECORDS SUMMARY | 2024-10-25 13:29 | XMS_ITS | Encounter Summary ---
Author Organization [facility] Address [facility] [place] [address] Care Team Providers Care Decorating Supervisor Name Role Phone Sonido Cordoba Primary Care Provider +1- [phone] Encounter Details Date Type Department Care Team (Latest Contact Info) Description 08/08/2016 10:30 AM EDT - 08/08/2016 11:59 PM EDT Hospital [place] [address] Devan Roth Jr., MD [facility] [place] [address] Recurrent nephrolithiasis Discharge Disposition: Home Social History [...] 11/26/2024 8:45 AM EST [place] [phone] Keri Avila [address] [place] [address] 12/31/2024 10:00 AM EST Office [place] [address] Mercy Amanda MD [facility] [address] 04/01/2025 2:00 PM EDT Office [place] [address] Erum Szymanski MD [facility] [place] [address] documented as of this encounter Procedures Procedure [...] ? pm) PATIENT INFO: ID #: ? [id number] ?: ??[birth year] (40 yrs) Name: ? VIANNEY NEVES ?Visit Date: 08/08/2016 11:03 am ? GABRIELLE PERFORMED BY: Performed By: ? Mejia Morelos RDMS Attending: ?Terell RIVAS, Fatoumata Boles Associate: ?Bryan RIVAS, Huber Luciano Referred By: ?DEVAN ROTH MD SERVICE(S) PROVIDED: ??URETRO - Retroperitoneal Complete - [id number] ? [id number] INDICATIONS: ??? stones COMPARISON: Ultrasound: RENAL/BLADDER 01/01/15 [...] 08/21/2016 01:51 pm) PATIENT INFO: ID #: [id number] : [birth year] (40 yrs) Name: VIANNEY NEVES Visit Date: 08/08/2016 11:03 am GABRIELLE PERFORMED BY: Performed By: Mejia Morelos RDMS Attending: Fatoumata Figueredo MD Associate: Huber Adams MD Referred By: DEVAN ROTH MD SERVICE(S) PROVIDED: URETRO - Retroperitoneal Complete - [id number] INDICATIONS: ? stones COMPARISON: Ultrasound: RENAL/BLADDER 01/01/15 [...] Corrected Final Report 08/21/2016 01:51 pm Devan Roth Jr., MD IMG US GEN ORDERAB LES documented in this encounter Visit Diagnoses Diagnosis Recurrent nephrolithiasis Calculus of kidney documented in this encounter Care Teams Decorating Supervisor Relationship Specialty Start Date End Date Sonido Cordoba PA [address] [place] [address] PCP - General Family Medicine 11/16/15 06/22/20 documented as of this encounter
--- OUTSIDE RECORDS SUMMARY | 2024-10-25 13:29 | XMS_ITS | Encounter Summary ---
[place] [address] Care Team Providers Care Funeral Counselor Name Role Phone Sonido Cordoba Primary Care Provider +1- [phone] Reason for Visit * Reason Comments Nephrolithiasis Encounter Details Date Type Department Care Team (Late st Contact Info) Description 08/08/2016 11:30 AM EDT [place] [address] Darius Nuñez Jr., MD [facility] [place] [address] Nephrolithiasis Social History Tobacco Use Types Packs/Day [...] 11/26/2024 8:45 AM EST Appointment Ultrasound at [place] [phone] Keri Avila [address] [place] [address] 12/31/2024 10:00 AM EST Office [place] [phone] Mercy Amanda MD [facility] DR [facility] [address] 04/01/2025 2:00 PM EDT Office [place] [phone] Erum Szymanski MD [facility] [place] [address] documented as of this encounter Visit Diagnoses Diagnosis Nephrolithiasis Calculus of kidney documented in this encounter Care Teams Funeral Counselor Relationship Specialty Start Date End Date Sonido Cordoba PA [address] [place] [address] PCP - General Family Medicine 11/16/15 06/22/20 documented as of this encounter
--- OUTSIDE RECORDS SUMMARY | 2024-10-25 13:29 | XMS_ITS | Encounter Summary ---
[place] [address] Care Team Providers Care Director Of Student Financial Services Name Role Phone Sonido Cordoba Primary Care Provider +1- [phone] Reason for Referral * Consultation (Routine) - Specialty Diagnoses / Procedures Referred By Contac t Referred To Contact Radiology Diagnoses Left shoulder pain, unspecified chronicity Tear of rotator cuff, unspecified laterality, unspecified tear extent Procedures MRI Shoulder wo Contrast Left (Generic) Gracy Ellis PA [facility] [place] [address] [place] [address] Referral ID Status Reason Start Date Expiration Date Visits Requested Visits Authorized [id number] Specialty Service Requested 10/30/2017 12/28/2017 2 2 Reason for Visit * Consultation (Routine) - Specialty Diagnoses / Procedures Referred By Contac t Referred To Contact Radiology Diagnoses Left shoulder pain, unspecified chronicity Tear of rotator cuff, unspecified laterality, unspecified tear extent Procedures MRI Shoulder wo Contrast Left (Generic) Gracy Ellis PA [facility] [place] [address] [place] [address] Referral ID Status Reason Start Date Expiration Date Visits Requested Visits Authorized [id number] Specialty Service Requested 10/30/2017 12/28/2017 2 2 Encounter Details Date Type Department Care Team (Latest Contact Info) Description 11/07/2017 4:14 PM EST - 11/07/2017 11:59 PM EST Hospital [place] [address] [facility] [place] [address] Left shoulder pain, unspecified chronicity; [...] 11/26/2024 8:45 AM EST [place] [address] Margarita Keri [address] [place] [address] 12/31/2024 10:00 AM EST Office [place] [phone] [facility] [address] [place] [address] 04/01/2025 2:00 PM EDT Office [place] [address] [facility] [place] [address] documented as of this encounter Procedures Procedure [...] extent documented in this encounter Care Teams Director Of Student Financial Services Relationship Specialty Start Date End Date Sonido Cordoba PA [address] [place] [address] PCP - General Family Medicine 11/16/15 06/22/20 documented as of this encounter
--- OUTSIDE RECORDS SUMMARY | 2024-10-25 13:29 | XMS_ITS | Encounter Summary ---
Author Organization [place] [address] Care Team Providers Care Cage Maker Machine Name Role Phone Sonido Cordoba Primary Care Provider +1- [phone] Reason for Referral * Consultation (Routine) - Specialty Diagnoses / Procedures Referred By Contac t Referred To Contact Radiology Diagnoses Left shoulder pain, unspecified chronicity Tear of rotator cuff, unspecified laterality, unspecified tear extent Procedures MRI Shoulder wo Contrast Left (Generic) Gracy Ellis PA [facility] [place] [address] [place] [address] Referral ID Status Reason Start Date Expiration Date Visits Requested Visits Authorized [id number] Specialty Service Requested 10/30/2017 12/28/2017 2 2 Reason for Visit * Reason Comments Follow-up Left shoulder pain Left Ankle Pain * Consultation (Routine) - Specialty Diagnoses / Procedures Referred By Contac t Referred To Contact Orthopaedics Diagnoses left shoulder pain and Left ankle Sonido Cordoba PA [address] [place] [address] [facility] [address] [place] [address] Referral ID Status Reason Start Date Expiration Date V isits Requested Visits Authorized [id number] Consult, Test & Treat Connection Center 09/18/2017 09/18/2018 1 1 Encounter Details Date Type Department Care Team (Late st Contact Info) Description 10/26/2017 10:30 AM EST Office [place] [address] Gracy Ellis PA [facility] [address] ORTHOPAEDIC [place] [address] Left shoulder pain, unspecified chronicity; Left ankle [...] outside facility as well as here at [facility] years prior. She was diagnosed with likely rotator cuff tear however has not improved with physical therapy. She works at [employer] and feels that some of her activities [...] can + Belly press + Infraspinatus + Jackson + Yergason + Intact motor function of [...] was made with voice recogonition software Gracy lElis PA-C documented in this encounter Plan of Treatment Upcoming Encounters Date Type Department Care Team (Late st Contact Info) Description 11/26/2024 8:45 AM EST Appointment [place] [address] Keri Avila [address] [place] [address] 12/31/2024 10:00 AM EST Office [place] [address] Mercy Amanda MD [facility] [address] [facility] [address] 04/01/2025 2:00 PM EDT Office [place] [address] Erum Szymanski MD [facility] [place] [address] documented as of this encounter Results * [...] extent documented in this encounter Care Teams Cage Maker Machine Relationship Specialty Start Date End Date Sonido Cordoba PA [address] [place] [address] PCP - General Family Medicine 11/16/15 06/22/20 documented as of this encounter
--- OUTSIDE RECORDS SUMMARY | 2024-10-25 13:29 | XMS_ITS | Encounter Summary ---
Author Organization [facility] Address [facility] [place] [address] Care Team Providers Care Wind Turbine Engineer Name Role Phone Sonido Cordoba Primary Care Provider +1- [phone] Encounter Details Date Type Department Care Team (Latest Contact Info) Description 03/15/2016 9:59 AM EDT - 03/15/2016 11:59 PM EDT Hospital Encounter XRay at [address] [place] [address] Sonido Cordoba PA [address] [place], [place] [id number] Dysphagia Discharge Disposition: Home Social History Tobacco [...] 11/26/2024 8:45 AM EST Appointment [place] [address] Keri Avila [address] [place] [address] 12/31/2024 10:00 AM EST Office [place] [phone] Mercy Amanda MD [facility] DR [place] [address] 04/01/2025 2:00 PM EDT Office [place] [phone] Erum Szymanski MD [facility] [place] [address] documented as of this encounter Procedures Procedure [...] mLs documented in this encounter Care Teams Wind Turbine Engineer Relationship Specialty Start Date End Date Sonido Cordoba PA [address] [place] [address] PCP - General Family Medicine 11/16/15 06/22/20 documented as of this encounter
--- OUTSIDE RECORDS SUMMARY | 2024-10-25 13:29 | XMS_ITS | Encounter Summary ---
[place] [address] Care Team Providers Care Work Station Support Specialist Name Role Phone Guero Cordoba Primary Care Provider +1- [phone] Encounter Details Date Type Department Care Team (Latest Contact Info) Description 03/15/2016 8:24 AM EDT - 03/15/2016 9:58 AM EDT Hospital En[place] [address] Guero Cordoba PA [address] [place], [place] [id number] Right upper quadrant abdominal pain Discharge Disposition: [...] 11/26/2024 8:45 AM EST [place]oint[place] [address] Keri Avila [address] [place] [address] 12/31/2024 10:00 AM EST Office [place] [address] Mercy Amanda MD [facility] DR [facility] [address] 04/01/2025 2:00 PM EDT Office [place] [address] Erum Szymanski MD [facility] [place] [address] documented as of this encounter Procedures Procedure [...] 10:25 am) Patient Info ID #: ? [id number] ?: ??[birth year] (40 yrs) Name: ? EMIL Chao ? Visit Date: 03/15/2016 09:29 am ? SON Performed By Performed By: ? Chrystal Henao RDMS Attending: ?Joey RIVAS, Mina Lara Associate: ?Rah Das MD Referred By: ?GUERO CORDBOA MD Service(s) Provided ??UABDLIM - Abdominal Limited Survey Single ? 12009 ??Organ or Quadrant - [id number] Indications ??RUQ PAIN; EVALUATE FOR ??GALLBLADDER DISEASE Comparison 08/31/2015; 01/27/2015 ----- Liver ----- Right Lobe [...] 03/15/2016 10:25 am) Patient Info ID #: [id number] : [birth year] (40 yrs) Name: EMIL Chao Visit Date: 03/15/2016 09:29 am SON Performed By Performed By: Chrystal Henao RDMS Attending: Mina Cook MD Associate: Rah Das MD Referred By: GUERO CORDOBA MD Service(s) Provided UABDLIM - Abdominal Limited Survey Single 74516 Organ or Quadrant - [id number] Indications RUQ PAIN; EVALUATE FOR GALLBLADDER DISEASE Comparison US 08/31/2015; US 01/27/2015 ----- Liver ----- Right Lobe Length: 19.9 cm Echogenicity/Echotexture: Normal Comment: left lobe hypoechoic focus which measures 5 mm no lareger and .less well seen than [...] quadrant documented in this encounter Care Teams Work Station Support Specialist Relationship Specialty Start Date End Date Guero Cordoba PA [address] [place] [address] PCP - General Family Medicine 11/16/15 06/22/20 documented as of this encounter
--- OUTSIDE RECORDS SUMMARY | 2024-10-25 13:29 | XMS_ITS | Encounter Summary ---
[place] [address] Care Team Providers Care Manufacturing Storeperson Name Role Phone Sonido Cordoba Primary Care Provider +1- [phone] Reason for Visit * Auth/Cert Specialty Diagnoses / Procedures Referred By Aric madrigal Referred To Contact Diagnoses 6 months for egd with barretts biopies from 02/28/16 Procedures PRO UPPER GI ENDOSCOPY, DIAGNOSTIC EGD, UPPER GI ENDOSCOPY Referral ID Status Reason Start Date Expiration Date Visits Re quested Visits Authorized [id number] 1 1 Encounter Details Date Type Department Care Team (Late st Contact Info) Description 09/04/2016 9:45 AM EDT - 09/04/2016 10:15 AM EDT [place] [address] Brandt Barlow MD EGD WITH BIOPSY (WRVU 2.39) Social History [...] better as expected. Sunday-Sunday Same Day Endo [phone]-[id number] Otherwise contact [phone] and ask to speak to the bag liner pollution control chemist Follow-up care is a harper part of [...] 11/26/2024 8:45 AM EST [place] [address] Keri Avila [address] [place] [address] 12/31/2024 10:00 AM EST Office [place] [address] Mercy Amanda MD [facility] [address] [place] [address] 04/01/2025 2:00 PM EDT Office [place] [address] Erum Szymanski MD [facility] [place] [address] documented as of this encounter Procedures Procedure [...] AM EDT 09/04/2016 10:49 AM EDT Narrative [facility] - 09/04/2016 10:49 AM EDT Specimen requisition ordered. ??Separate Pathology report to follow Brandt Barlow MD PATHOLOGY/CYTOLOGY O ZHANNA Performing Organization Address [facility] [place] [address] * Specimen to Pathology (surgical or derm) (09/04/2016 10:49 AM EDT) AP Specimen 09/04/2016 10:4 9 AM EDT 09/04/2016 10:49 AM EDT [facility] LABORATORY - 09/04/2016 10:49 AM EDT Specimen requisition ordered. ??Separate Pathology report to follow Brandt Barlow MD PATHOLOGY/CYTOLOGY O ZHANNA Performing Organization Address [facility] Co de Phone Number [facility] [place] [address] * Specimen to Pathology (surgical or derm) (09/04/2016 10:49 AM EDT) AP Specimen 09/04/2016 10:4 9 AM EDT 09/04/2016 10:49 AM EDT [facility] LAB[facility] - 09/04/2016 10:49 AM EDT Specimen requisition ordered. ??Separate Pathology report to follow Brandt Barlow MD PATHOLOGY/CYTOLOGY O RDFANTA Performing Organization Address [facility] [place] [address] * Specimen to Pathology (surgical or derm) (09/04/2016 10:49 AM EDT) AP Specimen 09/04/2016 10:4 9 AM EDT 09/04/2016 10:49 AM EDT Narrative [facility] - 09/04/2016 10:49 AM EDT Specimen requisition ordered. ??Separate Pathology report to follow Brandt Barlow MD PATHOLOGY/CYTOLOGY O ZHANNA Performing Organization Address [facility] [place] [address] * Specimen to Pathology (surgical or derm) (09/04/2016 10:49 AM EDT) AP Specimen 09/04/2016 10:4 9 AM EDT 09/04/2016 10:49 AM EDT Narrative [facility] - 09/04/2016 10:49 AM EDT Specimen requisition ordered. ??Separate Pathology report to follow Brandt Barlow MD PATHOLOGY/CYTOLOGY O ZHANNA Performing Organization Address [facility] [place] [address] * Surgical Pathology Report (09/04/2016 10:48 AM EDT) Final Diagnosis [id number] ?Location: 4T; EA07; A The signing pathologist has (i) [...] sing: (T1) ??sns 09/06/2016 4:13 PM EDT [facility] GI Biopsy 09/04/2016 10:4 8 AM [...] Barlow MD PATHOLOGY/CYTOLOGY Nan CHAO [facility] [place] [address] * UPPER GI ENDOSCOPY (09/04/2016 10:00 AM EDT) UPPER GI ENDOSCOPY [facility] Endoscopy Procedure Date: 09/04/2016 10:00 AM ? Patient Name: Vianney Cordero ? N: [id number] ? Date of : 1975 ? Age: 40 ? Order #: [id number] ? Instrument Name: [id number] ? Procedure: ? Upper GI endoscopy Indications: [...] Procedure Code(s): ?? --- Professional --- ? 44373, Esophagogastroduod enoscopy, ? flexible, transoral; with biopsy, ? single or multiple CPT copyright 2015 [employer]. All rights reserved. The codes documented in this report are preliminary and upon complaint evaluation supervisor review may be revised to meet current [...] mcg/mL multi-dose injection ONCE PRN, Starting on Sun09/04/16 at 1019, Until Sun09/04/16 at 1331, Intra-Operative (Intra-Procedure), Routine Given 09/04/2016 10:40 AM EDT 25 mcg Given 09/04/2016 10:33 AM EDT 25 mcg Given 09/04/2016 10:25 AM EDT 50 mcg lactated ringers infusion 100 mL/hr, Intravenous, CONTINUOUS, Starting on 09/04/16 at 0945, Until Sun09/04/16 at 1331, Endoscopy [...] RN) documented in this encounter Care Teams Manufacturing Storeperson Relationship Specialty Start Date End Date Sonido Cordoba PA [address] [place] [address] PCP - General Family Medicine 11/16/15 06/22/20 documented as of this encounter
--- OUTSIDE RECORDS SUMMARY | 2024-10-25 13:29 | XMS_ITS | Encounter Summary ---
Author Organization [facility] [place] [address] Care Team Providers Care Valet Attendant Name Role Phone Sonido Cordoba Primary Care Provider +1- [phone] Encounter Details Date Type Department Care Team (Late st Contact Info) Description 11/15/2017 Telephone [place] [address] Gracy Ellis PA [facility] [place] [address] Social History Tobacco Use Types Packs/Day Years [...] 11/26/2024 8:45 AM EST [place] [address] Keri Avila [address] [employer] [address] 12/31/2024 10:00 AM EST Office [place] [address] Mercy Amanda MD [facility] DR [facility] [address] 04/01/2025 2:00 PM EDT Office [place] [address] Erum Szymanski MD [facility] [place] [address] documented as of this encounter Visit Diagnoses Not on filedocumented in this encounter Care Teams Valet Attendant Relationship Specialty Start Date End Date Sonido Cordoba PA [address] [employer] [place] [address] PCP - General Family Medicine 11/16/15 06/22/20 documented as of this encounter
--- OUTSIDE RECORDS SUMMARY | 2024-10-25 13:29 | XMS_ITS | Encounter Summary ---
Author Organization [facility] [place] [address] Care Team Providers Care Chief Compressor Station Engineer Name Role Phone Sonido Cordoba Primary Care Provider +1- [phone] Encounter Details Date Type Department Care Team (Late st Contact Info) Description 12/14/2015 External [place] [address] Senait Becerra MD [facility] [place] [address] Social History Tobacco Use Types Packs/Day Years [...] 11/26/2024 8:45 AM EST [place] [address] Keri Avila [address] [place] [address] 12/31/2024 10:00 AM EST Office [place] [address] Mercy Amanda MD [facility] [address] [place] [address] 04/01/2025 2:00 PM EDT Office [place] [address] Erum Szymanski MD [facility] [place] [address] documented as of this encounter Procedures Procedure Name Priority Date/Time Associated Diagnosis Comments EMG SCAN Routine 12/13/2015 documented in this encounter Results * Scan Doc: EMG (12/13/2015) Senait Becerra MD MEDIA MGR SCAN EXT ORDR/RSLT documented in this encounter Visit Diagnoses Not on filedocumented in this encounter Care Teams Chief Compressor Station Engineer Relationship Specialty Start Date End Date Sonido Cordoba PA [address] [place] [address] PCP - General Family Medicine 11/16/15 06/22/20 documented as of this encounter
--- OUTSIDE RECORDS SUMMARY | 2024-10-25 13:29 | XMS_ITS | Encounter Summary ---
Author Organization [facility] [address] Care Team Providers Care Drafter Refrigeration Name Role Phone Sonido Cordoba Primary Care Provider +1- [phone] Encounter Details Date Type Department Care Team (Late st Contact Info) Description 10/26/2017 Orders [place] [address] Gracy Ellis PA [facility] [place] [address] Social History Tobacco Use Types Packs/Day Years [...] 11/26/2024 8:45 AM EST [place] [address] Keri Avila [address] [place] [address] 12/31/2024 10:00 AM EST Office [place] [address] Mercy Amanda MD [facility] [address] [place] [address] 04/01/2025 2:00 PM EDT Office [place] [address] Erum Szymanski MD [facility] [place] [address] documented as of this encounter Visit Diagnoses Not on filedocumented in this encounter Care Teams Drafter Refrigeration Relationship Specialty Start Date End Date Sonido Cordoba PA [address] [place] [address] PCP - General Family Medicine 11/16/15 06/22/20 documented as of this encounter
--- OUTSIDE RECORDS SUMMARY | 2024-10-25 13:29 | XMS_ITS | Encounter Summary ---
Author Organization [place] [address] Care Team Providers Care Raker Buffing Wheel Name Role Phone Sonido Cordoba Primary Care Provider +1- [phone] Reason for Visit * Reason Comments Pain Management * Consultation (Routine) - Closed Specialty Diagnoses / Procedures Referred By Aric madrigal Referred To Contact Pain Management Diagnoses Lumbar radiculopathy Sonido Cordoba PA [address] [place] [address] [facility] [address] [place] [phone] Referral ID Status Reason Start Date Expiration Date V isits Requested Visits Authorized [id number] Closed Consult, Test & Treat Connection Center PCP Updated and/or Approved 02/11/2016 02/10/2017 1 1 Encounter Details Date Type Department Care Team (Late st Contact Info) Description 03/24/2016 1:00 PM EDT Office [place] [address] Ángela Allen V, [facility] [place] [address] (work) Bryan Grant MD Meralgia paraesthetica, left Social History Tobacco Use [...] encounter Progress Notes * Ángela Allen V, DO - 03/24/2016 1:45 PM EDT I have [...] and 1-2 months. ÁNGELA ALLEN DO, MPH Installation Supervisor of Anesthesiology and Medicine/[facility] Blood Donor Recruiter, Pain Medicine Fellowship ABPM&R - Subspecialty board [...] year ago when she slipped on grease Be At One floor at [employer] and had to catch [...] BIOPSY performed by Brandt Barlow MD at [facility] ENDOSCOPY ??? Pro lap, esophagogast fundoplasty N/A 04/05/2015 LAPAROSCOPIC TYESHA FUNDOPLASTY performed by Valentín Moura MD at [facility] OR ??? N/A 04/05/2015 MODIFIER, HIATAL HERNIA performed by Valentín Moura MD at [facility] OR ??? Pro percut remv kid stone, up to 2 cm Right 06/01/2015 NEPHROLITHOTOMY, ([facility]NL) PERCUTANEOUS performed by Darius Nuñez Jr., MD at [facility] MAIN OR ??? Pro percut dilatn renal tract Right 06/01/2015 PERCUTANEOUS INTRO GUIDE WIRE TO ACCESS RENAL PELVIS,AND OR URETER, W\DILATION performed by Darius Nuñez Jr., MD at [facility] OR ??? Pro cysto/uretero/pyeloscopy, dx Right 06/01/2015 CYSTOURETEROSCOPY, DIAGNOSTIC performed by Darius Nuñez Jr., MD at [facility] OR ??? Pro cystoscopy, insert ureteral stent Right 06/01/2015 CYSTO, STENT PLACEMENT performed by Darius Nuñez Jr., MD at [facility] OR ??? Pro upper gi endoscopy, biopsy N/A 02/28/2016 EGD WITH BIOPSY performed by Brandt Barlow MD at [facility] ENDOSCOPY SOCIAL HISTORY: History Social History ??? [...] dental problems. Cardiovascular Denies chest pain, palpitations, CA, hypertension, heart murmur. Respiratory Denies cough, SOB, [...] of disc herniation CONTROLLED SUBSTANCE PRESCRIPTION REPORTS: [place] Medication Report: no inconsistencies [place] Medication Report: no inconsistencies IMPRESSION: 1. Meralgia [...] 11/26/2024 8:45 AM EST [place] [address] DandreJustus Keri [address] [place] [address] 12/31/2024 10:00 AM EST Office Visit Weight Center at [place] [phone] Mercy Amanda MD [facility] [address] 04/01/2025 2:00 PM EDT Office [place] [address] Erum Szymanski MD [facility] [place] [address] documented as of this encounter Visit Diagnoses Diagnosis Meralgia paraesthetica, left documented in this encounter Care Teams Raker Buffing Wheel Relationship Specialty Start Date End Date Sonido Cordoba PA [address] [place] [address] PCP - General Family Medicine 11/16/15 06/22/20 documented as of this encounter
--- OUTSIDE RECORDS SUMMARY | 2024-10-25 13:29 | XMS_ITS | Encounter Summary ---
[place] [address] Care Team Providers Care Snaker Driving Horses Name Role Phone Sonido Cordoba Primary Care Provider +1- [phone] Encounter Details Date Type Department Care Team (Late st Contact Info) Description 05/11/2016 Orders Only Occupational [place] [address] Maureen Fox, TEAGAN Social History Tobacco Use Types Packs/Day Years [...] 11/26/2024 8:45 AM EST Appointment [place] [phone] Keri Avila [address] [place], [place] [address] 12/31/2024 10:00 AM EST Office Visit [place] [phone] Mercy Amanda MD [facility] [address] [facility] [address] 04/01/2025 2:00 PM EDT Office Visit G[place] [address] Erum Szymanski MD [facility] [place] [address] documented as of this encounter Procedures Procedure Name Priority Date/Time Associated Diagnosis Comments QUANTIFERON-TB GOLD Routine 05/11/2016 9 :36 AM EDT RUBELLA ANTIBODY, IGG Routine 05/11/2016 9:36 AM EDT HEPATITIS B SURFACE ANTIBODY Routine 05/11/2016 9:36 AM EDT documented in this encounter Results * Hepatitis B Surface Antibody (05/11/2016 9:36 AM EDT) Hepatitis B Surface Antibody Negative [facility] Comment: Expected Results: Vaccinated: Positive [...] Agency Comment Spec In Lab Maureen Fox WORKFORCE PLANNER CHEMISTRY ORDERABLES [facility] [place] [address] * QuantiFERON-TB Gold (05/11/2016 9:36 AM EDT) [facility] Signature Quantiferon-TB Gold Negative Negative [facility] Comment: Nil (IU/mL)=0.06 TB Ag [...] Agency Comment Spec In Lab Maureen Fox WORKFORCE PLANNER CHEMISTRY ORDERABLES Performing Organization Address City/[facility]/ZIP Co de Phone Number [facility] [place] [address] * Rubella Antibody, IgG (05/11/2016 9:36 AM EDT) Rubella Antibody IgG Positive Positive [facility] Comment: Please note: ??A positive result for this assay indicates that antibody levels are >or= 10.0 IU/mL and is considered to be an indicator of positive immune status. Blood specimen (specimen) Venous Draw / Unknown 05/11/2016 9:36 AM EDT 05/11/2016 9:43 AM EDT Narrative Resulting Agency Comment Spec In Lab Maureen Fox WORKFORCE PLANNER CHEMISTRY ORDERABLES Performing Organization Address City/[facility]/ZIP Co de Phone Number [facility] [place] [address] documented in this encounter Visit Diagnoses Not on filedocumented in this encounter Care Teams Snaker Driving Horses Relationship Specialty Start Date End Date Sonido Cordoba PA [address] [place] [address] PCP - General Family Medicine 11/16/15 06/22/20 documented as of this encounter
--- OUTSIDE RECORDS SUMMARY | 2024-10-25 13:29 | XMS_ITS | Encounter Summary ---
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 Sunday-Sunday Same Day Endo [phone] Otherwise contact [phone] and ask to speak to the hadoop analyst rehabilitation physician Follow-up care is a harper part of [...] 8:45 AM EST [place]oint[place] [address] Keri Avila [address] [place] [address] 12/31/2024 10:00 AM EST Office [place] [address] Mercy Amanda MD [facility] [address] [facility] [address] 04/01/2025 2:00 PM EDT Office [place] [address] Erum Szymanski MD [facility] [place] [address] documented as of this encounter Procedures Procedure [...] Report (09/24/2017 9:34 AM EST) Final Diagnosis [id number] ? Location: 4T; EA08; A The signing [...] Dee MD Verified: ??09/28/2017 ?Pathologist Performed at: ??-[facility] Dept. of Pathology, [place], [place] CLINICAL INFORMATION Specimen Submitted: A - [...] sing: (T2) ??sunita 09/28/2017 1:32 PM EST [facility] GI Biopsy 09/24/2017 9:34 AM EST 09/24/2017 9:34 AM EST GI Biopsy 09/24/2017 9:34 AM EST 09/24/2017 9:34 AM EST GI Biopsy 09/24/2017 9:34 AM EST 09/24/2017 9:34 AM EST GI Biopsy 09/24/2017 9:34 AM EST 09/24/2017 9:34 AM EST GI Biopsy 09/24/2017 9:34 AM EST 09/24/2017 9:34 AM EST Brandt Barlow MD PATHOLOGY/CYTOLOGY O RDERABLES Performing Organization Address City/[facility]/ZIP Co de Phone Number [facility] [place] [address] * Specimen to Pathology (surgical or derm) (09/24/2017 9:34 AM EST) AP Specimen 09/24/2017 9:34 AM EST 09/24/2017 9:34 AM EST Narrative [facility] - 09/24/2017 9:34 AM EST Specimen requisition ordered. ??Separate Pathology report to follow Brandt Barlow MD PATHOLOGY/CYTOLOGY O RDERABLES Performing Organization Address City/[facility]/ZIP Co de Phone Number [facility] [place] [address] * Specimen to Pathology (surgical or derm) (09/24/2017 9:34 AM EST) AP Specimen 09/24/2017 9:34 AM EST 09/24/2017 9:34 AM EST Narrative [facility] - 09/24/2017 9:34 AM EST Specimen requisition ordered. ??Separate Pathology report to follow Brandt Barlow MD PATHOLOGY/CYTOLOGY O ZHANNA [facility] [place] [address] * Specimen to Pathology (surgical or derm) (09/24/2017 9:34 AM EST) AP Specimen 09/24/2017 9:34 AM EST 09/24/2017 9:34 AM EST Narrative [facility] - 09/24/2017 9:34 AM EST Specimen requisition ordered. ??Separate Pathology report to follow Brandt Barlow MD PATHOLOGY/CYTOLOGY O ZHANNA Performing Organization Address City/[facility]/ZIP Co de Phone Number [facility] [place] [address] * Specimen to Pathology (surgical or derm) (09/24/2017 9:34 AM EST) AP Specimen 09/24/2017 9:34 AM EST 09/24/2017 9:34 AM EST Narrative [facility] - 09/24/2017 9:34 AM EST Specimen requisition ordered. ??Separate Pathology report to follow Brandt Barlow MD PATHOLOGY/CYTOLOGY O RDFANTA [facility] [place] [address] * Specimen to Pathology (surgical or derm) (09/24/2017 9:34 AM EST) AP Specimen 09/24/2017 9:34 AM EST 09/24/2017 9:34 AM EST Narrative [facility] - 09/24/2017 9:34 AM EST Specimen requisition ordered. ??Separate Pathology report to follow Brandt Barlow MD PATHOLOGY/CYTOLOGY O RDKACIEBLES [facility] [place] [address] * UPPER GI ENDOSCOPY (09/24/2017 8:25 AM EST) Pathologist [facility] UPPER GI ENDOSCOPY [facility] Endoscopy Procedure Date: 09/24/2017 8:25 AM ? Patient Name: Vianney Cordero ? N: [id number] ? Date of : 1975 ? Age: 41 ? Order #: [id number] ? Instrument Name: [id number] ? Procedure: ? Upper GI endoscopy Indications: ? Heartburn, Follow-up of esophageal ? 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 Brandt Barlow MD, Clovis Xavier. ? NIMCO Ramos, Perlita Rodgers, ? Market Consultant Referring : ?WANDY Andrade Medicines: ? Midazolam [...] Procedure Code(s): ?? --- Professional --- ? 23492, Esophagogastroduod enoscopy, ? flexible, transoral; with biopsy, ? single or multiple CPT copyright 2016 [employer]. All rights reserved. The codes documented in this report are preliminary and upon towel stretcher review may be revised to meet current [...] diphenhydrAMINE (BENADRYL) injection ONCE PRN, Starting on 09/24/17 at 0901, Until Sun09/24/17 at 1221, Intra-Operative [...] Ramos RN)0904 (Given - Provider: Clovis Ramos RN)09 (Given - Provider: Clovis Ramos RN)0910 (Given - Provider: Clovis Ramos RN)0915 (Given - Provider: Clovis Ramos RN)0922 (Given - Provider: Clovis Ramos RN) documented in this encounter Care Teams Scene Shifter Relationship Specialty Start Date End Date Sonido Cordoba PA [address] [place] [address] PCP - General Family Medicine 11/16/15 06/22/20 documented as of this encounter
--- OUTSIDE RECORDS SUMMARY | 2024-10-25 13:29 | XMS_ITS | Encounter Summary ---
Author Organization [facility] [place] [address] Care Team Providers Care Cable Spooler Name Role Phone Sonido Cordoba Primary Care Provider +1- [phone] Reason for Visit * Consultation (Routine) - Closed Specialty Diagnoses / Procedures Referred By Aric madrigal Referred To Contact Neurology Diagnoses lumbar radiculopathy Sonido Cordoba PA [address] [place] [address] [facility] Neurology [address] [place] [phone] Referral ID Status Reason Start Date Expiration Date V isits Requested Visits Authorized [id number] Closed Consult, Test & Treat Connection Center 11/16/2015 11/15/2016 1 1 Encounter Details Date Type Department Care Team (Late st Contact Info) Description 12/13/2015 9:00 AM EST Procedure [place] [address] Senait Becerra MD [facility] [place] [address] Meralgia paresthetica of left side [...] EDX studies by Sonido Cordoba PA [address] [place] [phone] to look for evidence of lumbosacral radiculopathy. [...] 11/26/2024 8:45 AM EST Appoint[place] [address] Keri Avila [address] [place] [address] 12/31/2024 10:00 AM EST Office [place] [address] Mercy Amanda MD [facility] [address] [facility] [address] 04/01/2025 2:00 PM EDT Office [place] [address] Erum Szymanski MD [facility] DR GASTROENTEROLOGY [place], [place] [address] documented as of this encounter Visit Diagnoses Diagnosis Meralgia paresthetica of left side Meralgia paresthetica documented in this encounter Care Teams Cable Spooler Relationship Specialty Start Date End Date Sonido Cordoba PA [address] [place] [address] PCP - General Family Medicine 11/16/15 06/22/20 documented as of this encounter
--- OUTSIDE RECORDS SUMMARY | 2024-10-25 13:29 | XMS_ITS | Encounter Summary ---
Author Organization [facility] Address [facility] [place] [address] Care Team Providers Care Hot Cell Technician Name Role Phone Sonido Cordoba Primary Care Provider +1- [phone] Encounter Details Date Type Department Care Team (Latest Contact Info) Description 09/11/2017 2:00 PM EST - 09/11/2017 11:59 PM [facility] Hospital Encounter [place] [address] Devan Nuñez Jr., MD [facility] [place] [address] Nephrolithiasis Discharge Disposition: Home Social History Tobacco [...] 11/26/2024 8:45 AM EST Appointment [place] [address] Keri Avila [address] [place] [address] 12/31/2024 10:00 AM EST Office Visit [place] [address] Mercy Amanda MD [facility] DR [facility] [address] 04/01/2025 2:00 PM EDT Office Visit [place] [address] Erum Szymanski MD [facility] [place] [address] documented as of this encounter Procedures Procedure [...] 05:31 pm) PATIENT INFO: ID #: ? [id number] ?: ??[birth year] (41 yrs) Name: ? VIANNEY NEVES ?Visit Date: 09/11/2017 02:38 pm ? GABRIELLE PERFORMED BY: Performed By: ? Mejia Morelos RDMS Attending: ?Rivas RIVAS, Steph Grimes Resident: ? Percy Gallagher MD Referred By: ?DEVAN NUÑEZ JR Location: ? [place] SERVICE(S) PROVIDED: ??URETRO - Retroperitoneal Complete - [id number] ? [id number] INDICATIONS: ??? stones RIGHT KIDNEY: Size (cm) [...] 09/11/2017 05:31 pm) PATIENT INFO: ID #: [id number] : [birth year] (41 yrs) Name: VIANNEY NEVES Visit Date: 09/11/2017 02:38 pm GABRIELLE PERFORMED BY: Performed By: Mejia Morelos RDMS Attending: Steph Reyes MD Resident: Percy Gallagher MD Referred By: DEVAN NUÑEZ Location: [place] SERVICE(S) PROVIDED: URETRO - Retroperitoneal Complete - [id number] INDICATIONS: ? stones RIGHT KIDNEY: Size (cm) [...] kidney documented in this encounter Care Teams Hot Cell Technician Relationship Specialty Start Date End Date Sonido Cordoba PA [address] [place] [address] PCP - General Family Medicine 11/16/15 06/22/20 documented as of this encounter
--- OUTSIDE RECORDS SUMMARY | 2024-10-25 13:29 | XMS_ITS | Encounter Summary ---
[place] [address] Care Team Providers Care Tugboat Dispatcher Name Role Phone Sonido Cordoba Primary Care Provider +1- [phone] Reason for Visit * Reason Comments Nephrolithiasis Encounter Details Date Type Department Care Team (Late st Contact Info) Description 09/11/2017 4:00 PM EST [place] [address] Darius Nuñez Jr., MD [facility] [place] [address] Nephrolithiasis Social History Tobacco Use Types Packs/Day [...] 11/26/2024 8:45 AM EST [place] [address] Keri Avila [address] [place] [address] 12/31/2024 10:00 AM EST Office [place] [address] Mercy Amanda MD [facility] [address] [facility] [address] 04/01/2025 2:00 PM EDT Office [place] [address] Erum Szymanski MD [facility] [place] [address] documented as of this encounter Visit Diagnoses Diagnosis Nephrolithiasis Calculus of kidney documented in this encounter Care Teams Tugboat Dispatcher Relationship Specialty Start Date End Date Sonido Cordoba PA [address] [place] [address] PCP - General Family Medicine 11/16/15 06/22/20 documented as of this encounter
--- OUTSIDE RECORDS SUMMARY | 2024-10-25 13:29 | XMS_ITS | Encounter Summary ---
Author Organization [facility] [place] [address] Care Team Providers Care School Counsellor Name Role Phone Sonido Cordoba Primary Care Provider +1- [phone] Reason for Visit * Reason Onset Date Comments Questions 11/26/2017 Encounter Details Date Type Department Care Team (Late st Contact Info) Description 11/26/2017 Telephone [place] [address] Gracy Ellis PA [facility] [place] [address] Questions Social History Tobacco Use Types Packs/Day [...] 11/26/2024 8:45 AM EST Appointment [place] [address] Keri Avila [address] [place] [address] 12/31/2024 10:00 AM EST Office [place] [phone] Mercy Amanda MD [facility] [address] [facility] [place] [address] 04/01/2025 2:00 PM EDT Office [place] [address] Erum Szymanski MD [facility] [place] [address] documented as of this encounter Visit Diagnoses Not on filedocumented in this encounter Care Teams School Counsellor Relationship Specialty Start Date End Date Sonido Cordoba PA [address] [place] [address] PCP - General Family Medicine 11/16/15 06/22/20 documented as of this encounter
--- OUTSIDE RECORDS SUMMARY | 2024-10-25 13:29 | XMS_ITS | Encounter Summary ---
Author Organization [facility] Address [facility] [address] Care Team Providers Care Pharmacy Data Analyst Name Role Phone Sonido Cordoba Primary Care Provider +1- [phone] Encounter Details Date Type Department Care Team (Latest Contact Info) Description 10/26/2017 10:38 AM EST - 10/26/2017 11:59 PM [facility] Hospital Encounter XRay at [address] [place] [address] Bakari Robison MD [facility] [place] [address] Left ankle pain, unspecified chronicity Discharge Disposition: [...] 11/26/2024 8:45 AM EST Appointment [place] [address] Keri Avlia [address] [place] [address] 12/31/2024 10:00 AM EST Office [place] [address] Mercy Amanda MD [facility] [address] [facility] [place] [address] 04/01/2025 2:00 PM EDT Office [place] [address] Erum Szymanski MD [facility] [place] [address] documented as of this encounter Procedures Procedure [...] chronicity documented in this encounter Care Teams Pharmacy Data Analyst Relationship Specialty Start Date End Date Sonido Cordoba PA [address] [place] [address] PCP - General Family Medicine 11/16/15 06/22/20 documented as of this encounter
--- OUTSIDE RECORDS SUMMARY | 2024-10-25 13:29 | XMS_ITS | Encounter Summary ---
Author Organization [facility] Address [facility] [place] [address] Care Team Providers Care Manager Contract Name Role Phone Sonido Cordoba Primary Care Provider +1- [phone] Encounter Details Date Type Department Care Team (Latest Contact Info) Description 10/26/2017 9:17 AM EST - 10/26/2017 10:37 AM [email or web address] Hospital Encounter XRay at [address] [place] [address] Iris Andres MD [facility] [place] [address] Chronic left shoulder pain Discharge Disposition: Home [...] 8:45 AM EST Appointment [place] [address] Keri Avila [address] [place] [address] 12/31/2024 10:00 AM EST Office Visit [place] [address] Mercy Amanda MD [facility] [address] [facility] [address] 04/01/2025 2:00 PM EDT Office Visit [place] [address] Erum Szymanski MD [facility] [place] [address] documented as of this encounter Procedures Procedure [...] region documented in this encounter Care Teams Manager Contract Relationship Specialty Start Date End Date Sonido Cordoba PA [address] [place] [address] PCP - General Family Medicine 11/16/15 06/22/20 documented as of this encounter
--- OUTSIDE RECORDS SUMMARY | 2024-10-25 13:29 | XMS_ITS | Encounter Summary ---
[place] [address] Care Team Providers Care Bias Binding Cutter Name Role Phone Sonido Cordoba Primary Care Provider +1- [phone] Encounter Details Date Type Department Care Team (Late st Contact Info) Description 10/26/2015 [place] [address] Sonido Cordoba PA [address] [place], [place] [address] Social History Tobacco Use Types Packs/Day Years [...] 11/26/2024 8:45 AM EST Appointment [place] [address] Keri Avila [address] [place] [address] 12/31/2024 10:00 AM EST Office [place] [address] Mercy Amanda MD [facility] [address] [place] [address] 04/01/2025 2:00 PM EDT Office Visit [place] [phone] Erum Szymanski MD [facility] [place] [address] documented as of this encounter Visit Diagnoses Not on filedocumented in this encounter Care Teams Bias Binding Cutter Relationship Specialty Start Date End Date Sonido Cordoba PA [address] [place] [address] PCP - General Family Medicine 11/16/15 06/22/20 documented as of this encounter
--- OUTSIDE RECORDS SUMMARY | 2024-10-25 13:29 | XMS_ITS | Encounter Summary ---
[place] [address] Care Team Providers Care Building Cleaning Supervisor Name Role Phone Sonido Cordoba Primary Care Provider +1- [phone] Encounter Details Date Type Department Care Team (Late st Contact Info) Description 05/11/2016 Orders [place] [address] Maureen Fox, TEAGAN Social History [...] 11/26/2024 8:45 AM EST [place] [phone] Keri Avila [address] [place], [place] [address] 12/31/2024 10:00 AM EST Office [place] [address] Mercy Amanda MD [facility] [address] [facility] [place] [address] 04/01/2025 2:00 PM EDT Office [place] [address] Erum Szymanski MD [facility] [place] [address] documented as of this encounter Procedures Procedure Name Priority Date/Time Associated Diagnosis Comments MEASLES (RUBEOLA) ANTIBODY, IGG Routine 05/11/2016 9:36 AM EDT VARICELLA ZOSTER ANTIBODY, IGG Routine 05/11/2016 9:36 AM EDT MUMPS ANTIBODY, IGG Routine 05/11/2016 9 :36 AM EDT documented in this encounter Results * Varicella zoster Antibody, IgG (05/11/2016 9:36 AM EDT) Varicella Zoster Antibody IgG Pos [facility] Blood specimen (specimen) Venous Draw / Unknown 05/11/2016 9:36 AM EDT 05/12/2016 7:52 AM EDT Narrative Resulting Agency Comment Spec In Lab Maureen Fox GATHERING MACHINE SETTER IMMUNOLOGY ORDERABLE S [facility] [place] [address] * (ABNORMAL) Mumps Antibody, IgG (05/11/2016 9:36 AM EDT) Mumps Antibody IgG Equivocal( A) Pos [facility] Blood specimen (specimen) Venous Draw / Unknown 05/11/2016 9:36 AM EDT 05/12/2016 7:52 AM EDT Narrative Resulting Agency Comment Spec In Lab Maureen Fox GATHERING MACHINE SETTER IMMUNOLOGY ORDERABLE S Performing Organization Address City/[facility]/ZIP Co de Phone Number [facility] [place] [address] * Measles (Rubeola) Antibody, IgG (05/11/2016 9:36 AM EDT) Rubeola Antibody IgG Pos Pos [facility] Comment:Expected Values: A N egative result indicates non-immunity. Blood specimen (specimen) Venous Draw / Unknown 05/11/2016 9:36 AM EDT 05/12/2016 7:52 AM EDT Narrative Resulting Agency Comment Spec In Lab Maureen Fox GATHERING MACHINE SETTER IMMUNOLOGY ORDERABLE S Performing Organization Address City/[facility]/ZIP Co de Phone Number [facility] [place] [address] documented in this encounter Visit Diagnoses Not on filedocumented in this encounter Care Teams Building Cleaning Supervisor Relationship Specialty Start Date End Date Sonido Cordboa PA [address] [place] [address] PCP - General Family Medicine 11/16/15 06/22/20 documented as of this encounter
--- OUTSIDE RECORDS SUMMARY | 2024-10-25 13:29 | XMS_ITS | Encounter Summary ---
[place] [address] Care Team Providers Care Business Administration Instructor Name Role Phone Sonido Cordoba Primary Care Provider +1- [phone] Encounter Details Date Type Department Care Team (Late st Contact Info) Description 04/05/2016 Telephone [place] [address] Da Tafoya, RN Social History [...] nerve block that had been discussed. Dr, [place] informed. documented in this encounter Plan of Treatment Upcoming Encounters Date Type Department Care Team (Late st Contact Info) Description 11/26/2024 8:45 AM EST Appointment [place] [address] Dandrepedro luisnicTommyKeri [address] [place] [address] 12/31/2024 10:00 AM EST Office Visit Weight Center at [place] [phone] Mercy Amanda MD [facility] DR [facility] [address] 04/01/2025 2:00 PM EDT Office Visit [place] [address] Erum Szymanski MD [facility] [place] [address] documented as of this encounter Visit Diagnoses Not on filedocumented in this encounter Care Teams Business Administration Instructor Relationship Specialty Start Date End Date Sonido Cordoba PA [address] [place] [address] PCP - General Family Medicine 11/16/15 06/22/20 documented as of this encounter
--- OUTSIDE RECORDS SUMMARY | 2024-10-25 13:29 | XMS_ITS | Encounter Summary ---
Author Organization [facility] [place] [address] Care Team Providers Care Clinical Services Assistant Name Role Phone Unavailable Primary Care Provider Unavailabl e Reason for Referral * Diagnostic Test (Routine) - Closed Specialty Diagnoses / Procedures Referred By Contac t Referred To Contact Radiology Diagnoses Left lumbar radiculopathy Procedures MRI Lumbar Spine Without Contrast (GENERIC) [place] [address] [place] [address] Referral ID Status Reason Start Date Expiration Date V isits Requested Visits Authorized [id number] Closed Specialty Service Requested 10/22/2015 01/20/2016 1 1 Reason for Visit * Diagnostic Test (Routine) - Closed Specialty Diagnoses / Procedures Referred By Contac t Referred To Contact Radiology Diagnoses Left lumbar radiculopathy Procedures MRI Lumbar Spine Without Contrast (GENERIC) [place] [address] [place] [address] Referral ID Status Reason Start Date Expiration Date V isits Requested Visits Authorized [id number] Closed Specialty Service Requested 10/22/2015 01/20/2016 1 1 Encounter Details Date Type Department Care Team (Latest Contact Info) Description 11/02/2015 4:56 PM EST - 11/02/2015 11:59 PM EST Hospital [place] [address] Sonido Cordoba PA [address] [place] [address] Left lumbar radiculopathy Discharge Disposition: Home Social [...] 11/26/2024 8:45 AM EST Appointment [place] [address] Keri Avila [address] [place] [address] 12/31/2024 10:00 AM EST Office [place] [address] Mercy Amanda MD [facility] [address] [facility] [address] 04/01/2025 2:00 PM EDT Office Visit [place] [address] Erum Szymanski MD [facility] [place] [address] documented as of this encounter Procedures Procedure [...] in context of the clinical situation (Reference- Jarvik et al, Spine 2001). Findings: (Prevalence in [...] the clinical situation (Reference- Danialk et al, [id number]). Findings: (Prevalence in patients without low back pain), discdegeneration (decreased T2 signal, height loss, bulge) (91%), disc T2-signal loss(83%), disc height loss (56%), disc bulge (64%), disc protrusion (32%), annularfissure (38%). Sonido SABA [facility]MD[facility] MRI ORDERABLES documented in this encounter Visit Diagnoses Diagnosis Left lumbar radiculopathy Thoracic or lumbosacral neuritis or radiculitis, unspecified documented in this encounter
--- OUTSIDE RECORDS SUMMARY | 2024-10-25 13:29 | XMS_ITS | Encounter Summary ---
Author Organization [facility] [place] [address] Care Team Providers Care Coal Gasification Technician Name Role Phone Sonido Cordoba Primary Care Provider +1- [phone] Encounter Details Date Type Department Care Team (Late st Contact Info) Description 08/30/2017 [place] [address] Devan Nuñez Jr., MD [facility] [address] Nephrolithiasis Social History Tobacco Use Types Packs/Day [...] AM EST [place] [address] Keri Avila [address] [place] [address] 12/31/2024 10:00 AM EST Office [place] [phone] Mercy Amanda MD [facility] DR [facility] [place], [place] [address] 04/01/2025 2:00 PM EDT Office [place] [address] Erum Szymanski MD [facility] [place] [address] documented as of this encounter Results * [...] 05:31 pm) PATIENT INFO: ID #: ? [id number] ?: ??[birth year] (41 yrs) Name: ? VIANNEY NEVES ?Visit Date: 09/11/2017 02:38 pm ? GABRIELLE PERFORMED BY: Performed By: ? Mejia Morelos RDMS Attending: ?Rivas RIVAS, Steph Grimes Resident: ? Percy Gallagher MD Referred By: ?DEVAN NUÑEZ Location: ? [place] SERVICE(S) PROVIDED: ??URETRO - Retroperitoneal Complete - [id number] ? [id number] INDICATIONS: ??? stones RIGHT KIDNEY: Size (cm) [...] 09/11/2017 05:31 pm) PATIENT INFO: ID #: [id number] : [birth year] (41 yrs) Name: VIANNEY NEVES Visit Date: 09/11/2017 02:38 pm GABRIELLE PERFORMED BY: Performed By: Mejia Morelos RDMS Attending: Steph Reyes MD Resident: Percy Gallagher MD Referred By: DEVAN NUÑEZ JR Location: [place] SERVICE(S) PROVIDED: URETRO - Retroperitoneal Complete - [id number] INDICATIONS: ? stones RIGHT KIDNEY: Size (cm) [...] 09/11/2017 05:31 pm Devan Nuñez Jr., MD [facility] documented in this encounter Visit Diagnoses Diagnosis Nephrolithiasis Calculus of kidney Nephrolithiasis Calculus of kidney documented in this encounter Care Teams Coal Gasification Technician Relationship Specialty Start Date End Date Sonido Cordoba PA [address] [place] [address] PCP - General Family Medicine 11/16/15 06/22/20 documented as of this encounter
--- OUTSIDE RECORDS SUMMARY | 2024-10-25 13:29 | XMS_ITS | Encounter Summary ---
[place] [address] Care Team Providers Care Skull Splitter Name Role Phone Sonido Cordoba Primary Care Provider +1- [phone] Encounter Details Date Type Department Care Team (Late st Contact Info) Description 03/24/2016 Orders [place] [address] Aisha Simpson Social History Tobacco Use Types [...] 11/26/2024 8:45 AM [place] [phone] Keri Avila [address] [place], [place] [address] 12/31/2024 10:00 AM EST [place] [address] Mercy Amanda MD [facility] [address] [facility] [place] [address] 04/01/2025 2:00 PM EDT Office [place] [address] Erum Szymanski MD [facility] [place] [address] documented as of this encounter Visit Diagnoses Not on filedocumented in this encounter Care Teams Skull Splitter Relationship Specialty Start Date End Date Sonido Cordoba PA [address] [place] [address] PCP - General Family Medicine 11/16/15 06/22/20 documented as of this encounter
--- OUTSIDE RECORDS SUMMARY | 2024-10-25 13:29 | XMS_ITS | Encounter Summary ---
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 Sunday-Sunday Same Day Endo [phone]-8p Otherwise contact [phone] and ask to speak to the oil field operator rn bone marrow transplant Follow-up care is a harper part of [...] 11/26/2024 8:45 AM EST Appoint[place] [address] Keri Avila [address] [place] [address] 12/31/2024 10:00 AM EST Office [place] [address] Mercy Amanda MD [facility] [address] [facility] [place] [address] 04/01/2025 2:00 PM EDT Office [place] [address] Erum Szymanski MD [facility] [place] [address] documented as of this encounter Procedures Procedure [...] Report (09/24/2017 9:34 AM EST) Final Diagnosis [id number] ? Location: 4T; EA08; A The signing [...] Dee MD Verified: ??09/28/2017 ?Pathologist Performed at: ??-[facility] [place], [place], [place] CLINICAL INFORMATION Specimen Submitted: A - [...] sing: (T2) ??sunita 09/28/2017 1:32 PM EST [facility] GI Biopsy 09/24/2017 9:34 AM EST 09/24/2017 9:34 AM EST GI Biopsy 09/24/2017 9:34 AM EST 09/24/2017 9:34 AM EST GI Biopsy 09/24/2017 9:34 AM EST 09/24/2017 9:34 AM EST GI Biopsy 09/24/2017 9:34 AM EST 09/24/2017 9:34 AM EST GI Biopsy 09/24/2017 9:34 AM EST 09/24/2017 9:34 AM EST Brandt Barlow MD PATHOLOGY/CYTOLOGY O RDERAYESENIA [facility] [place] [address] * Specimen to Pathology (surgical or derm) (09/24/2017 9:34 AM EST) AP Specimen 09/24/2017 9:34 AM EST 09/24/2017 9:34 AM EST Narrative [facility] - 09/24/2017 9:34 AM EST Specimen requisition ordered. ??Separate Pathology report to follow Brandt Barlow MD PATHOLOGY/CYTOLOGY O RDERABLES [facility] [place] [address] * Specimen to Pathology (surgical or derm) (09/24/2017 9:34 AM EST) AP Specimen 09/24/2017 9:34 AM EST 09/24/2017 9:34 AM EST Narrative [facility] - 09/24/2017 9:34 AM EST Specimen requisition ordered. ??Separate Pathology report to follow Brandt Barlow MD PATHOLOGY/CYTOLOGY O ZHANNA Performing Organization Address [facility] [place] [address] * Specimen to Pathology (surgical or derm) (09/24/2017 9:34 AM EST) AP Specimen 09/24/2017 9:34 AM EST 09/24/2017 9:34 AM EST Narrative [facility] - 09/24/2017 9:34 AM EST Specimen requisition ordered. ??Separate Pathology report to follow Brandt Barlow MD PATHOLOGY/CYTOLOGY O ZHANNA Performing Organization Address [facility] [place] [address] * Specimen to Pathology (surgical or derm) (09/24/2017 9:34 AM EST) AP Specimen 09/24/2017 9:34 AM EST 09/24/2017 9:34 AM EST Narrative [facility] - 09/24/2017 9:34 AM EST Specimen requisition ordered. ??Separate Pathology report to follow Brandt Barlow MD PATHOLOGY/CYTOLOGY O ZHANNA Performing Organization Address [facility] [place] [address] * Specimen to Pathology (surgical or derm) (09/24/2017 9:34 AM EST) AP Specimen 09/24/2017 9:34 AM EST 09/24/2017 9:34 AM EST Narrative [facility] - 09/24/2017 9:34 AM EST Specimen requisition ordered. ??Separate Pathology report to follow Brandt Barlow MD PATHOLOGY/CYTOLOGY O RDERABLES [facility] [place] [address] * UPPER GI ENDOSCOPY (09/24/2017 8:25 AM EST) Pathologist [facility] UPPER GI ENDOSCOPY [facility] Endoscopy Procedure Date: 09/24/2017 8:25 AM ? Patient Name: Vianney Cordero ? N: [id number] ? Date of : 1975 ? Age: 41 ? Order #: [id number] ? Instrument Name: [id number] ? Procedure: ? Upper GI endoscopy Indications: ? Heartburn, Follow-up of esophageal ? 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 Brandt Barlow MD, Clovis iRzvi ? Richard, NIMCO, Perlita Rodgers, ? Soaking Pits Supervisor Referring : ?WANDY Andrade Medicines: ? Midazolam [...] Procedure Code(s): ?? --- Professional --- ? 57116, Esophagogastroduod enoscopy, ? flexible, transoral; with biopsy, ? single or multiple CPT copyright 2016 [employer]. All rights reserved. The codes documented in this report are preliminary and upon semiautomatic taper operator review may be revised to meet [...] RN) documented in this encounter Care Teams Ornament Stapler Relationship Specialty Start Date End Date Sonido Cordoba PA [address] [place] [address] PCP - General Family Medicine 11/16/15 06/22/20 documented as of this encounter
--- OUTSIDE RECORDS SUMMARY | 2024-10-25 13:29 | XMS_ITS | Encounter Summary ---
[place] [address] Care Team Providers Care Pharmacist Intern Name Role Phone Sonido Cordoba Primary Care Provider +1- [phone] Encounter Details Date Type Department Care Team (Late st Contact Info) Description 04/04/2016 Notes [place] [address] Ángela Allen [facility] [place] [address] Social History Tobacco Use Types Packs/Day Years [...] patient. Thanks! dvd ÁNGELA ALLEN DO, MPH Powersaw Supervisor of Anesthesiology and Medicine/Person [facility] [employer] [facility] Scoop Filler, Pain Medicine Fellowship ABPM&R - Subspecialty board certification in Pain Medicine documented in this encounter Plan of Treatment Upcoming Encounters Date Type Department Care Team (Late st Contact Info) Description 11/26/2024 8:45 AM EST Appointment [place] [address] Keri Avila [address] [place], [place] [address] 12/31/2024 10:00 AM EST Office Visit Weight Center at [place] [phone] Mercy Amanda MD [facility] DR [facility] [address] 04/01/2025 2:00 PM EDT Office [place] [address] Erum Szymanski MD [facility] [place] [address] documented as of this encounter Visit Diagnoses Not on filedocumented in this encounter Care Teams Pharmacist Intern Relationship Specialty Start Date End Date Sonido Cordoba PA [address] [place], [place] [address] PCP - General Family Medicine 11/16/15 06/22/20 documented as of this encounter
--- OUTSIDE RECORDS SUMMARY | 2024-10-25 13:29 | XMS_ITS | Encounter Summary ---
[place] [address] Care Team Providers Care Sealer Operator Name Role Phone Sonido Cordoba Primary Care Provider +1- [phone] Encounter Details Date Type Department Care Team (Late st Contact Info) Description 08/09/2016 Orders [place] [address] Lizbeth Sneed, RN Social History Tobacco Use [...] 11/26/2024 8:45 AM EST Appointment [place] [address] Keri Avila [address] [place], [place] [address] 12/31/2024 10:00 AM EST Office [place] [address] Mercy Amanda MD [facility] DR [facility] [address] 04/01/2025 2:00 PM EDT Office [place] [address] Erum Szymanski MD [facility] [address] documented as of this encounter Visit Diagnoses Not on filedocumented in this encounter Care Teams Sealer Operator Relationship Specialty Start Date End Date Sonido Cordoba PA [address] [place] [address] PCP - General Family Medicine 11/16/15 06/22/20 documented as of this encounter
--- OUTSIDE RECORDS SUMMARY | 2024-10-25 13:29 | XMS_ITS | Encounter Summary ---
[place] [address] Care Team Providers Care Manager Print Name Role Phone Sonido Cordoba Primary Care Provider [phone] Reason for Visit * Auth/Cert Specialty Diagnoses / Procedures Referred By Conteulalio t Referred To Contact Diagnoses 12 wk f/u from 01/27/15 Procedures EGD, UPPER GI ENDOSCOPY Referral ID Status Reason Start Date Expiration Date Visits Re quested Visits Authorized [id number] 1 1 Encounter Details Date Type Department Care Team (Late st Contact Info) Description 02/28/2016 9:00 AM EDT - 02/28/2016 9:30 AM EDT [place] [address] Brandt Barlow MD EGD WITH BIOPSY (WRVU [...] better as expected. Sunday-Sunday Same Day Endo [phone] Otherwise contact [phone] and ask to speak to the loan processing supervisor electron beam welding machine operator Follow-up care is a harper part of [...] 11/26/2024 8:45 AM EST [place] [address] Keri Avila [address] [place] [address] 12/31/2024 10:00 AM EST Office [place] [address] Mercy Amanda MD [facility] [place], [place] [id number] 04/01/2025 2:00 PM EDT Office [place] [address] Erum Szymanski MD [facility] GASTROENTEROLOGY [place], [place] [id number] documented as of this encounter Procedures Procedure Name Priority Date/Time Associated Diagnosis Comments SURGICAL PATHOLOGY REPORT Routine 02/28/2016 9:30 AM EDT SPECIMEN TO PATHOLOGY Routine 02/28/2016 9:30 AM EDT EGD WITH BIOPSY (WRVU 2.39) 02/28/2016 9:09 AM EDT Dyspepsia UPPER GI ENDOSCOPY Routine 02/28/2016 9: 00 AM EDT documented in this encounter Results * Surgical Pathology Report (02/28/2016 9:30 AM EDT) Final Diagnosis [id number] ? Location: 4T; EA09; A The signing [...] 9:30 AM EDT 02/28/2016 9:30 AM EDT Brantd Barlow MD PATHOLOGY/CYTOLOGY O ZHANNA Performing Organization Address [facility] Co de Phone Number [facility] [place] [address] * Specimen to Pathology (surgical or derm) (02/28/2016 9:30 AM EDT) AP Specimen 02/28/2016 9:30 AM EDT 02/28/2016 9:30 AM EDT Narrative [facility] - 02/28/2016 9:30 AM EDT Specimen requisition ordered. ??Separate Pathology report to follow Brandt Barlow MD PATHOLOGY/CYTOLOGY O ZHANNA Performing Organization Address [facility] Co de Phone Number [facility] [place] [address] * UPPER GI ENDOSCOPY (02/28/2016 9:00 AM EDT) Pathologist [facility] UPPER GI ENDOSCOPY [facility] Endoscopy Patient Name: Vianney Saini ? Procedure Date: 02/28/2016 9:00 AM ? Date of : 1975 ? Age: 40 ? Order #: [id number] ? Procedure: ? Upper GI endoscopy Indications: ? Heartburn, Follow-up of esophageal ? reflux; history of Grade C ? esophagitis; s/p Rosy ? fundoplication. Providers: ? Brandt Barlow MD, Shasta Maciel ? Nayt RN, Clovis Ramos RN Referring : ?WANDY Andrade [...] - Esophagogastric landmarks ? identified. ? - Hamilton-colored mucosa suspicious ? for long-segment Rodgers's esophagus. ? - Specimens collected. Recommendation: ?- Return to primary care physician as ? previously scheduled. ? - Results of biopsies will be ? available in 8-10 days and sent to ? patient and provider ? Procedure Code(s): ?? --- Professional --- ? 65992, Esophagogastroduod enoscopy, ? flexible, transoral; diagnostic, ? including collection of specimen(s) ? by brushing or washing, when ? performed (separate procedure) CPT copyright 2014 [employer]. All rights reserved. The codes documented in this report are preliminary and upon driver material handler review may be revised to meet current [...] oral spray (CANCELED) ONCE PRN, Starting on 4/25/16 at 0912, Until Sun02/28/16 at 1230, Intra-Operative (Intra-Procedure) 09 (Given - Provid er: Clovis Ramos RN) diphenhydrAMINE (BENADRYL) injection (CANCELED) ONCE PRN, Starting on Sun02/28/16 at 0912, Until Sun02/28/16 at 1230, Intra-Operative (Intra-Procedure), Routine 911 (Given - Provid er: Clovis Ramos RN)914 (Given - Provider: Clovis Ramos RN) fentaNYL 50 mcg/mL multi-dose injection (CANCELED) ONCE PRN, Starting on Sun02/28/16 at 0912, Until Sun02/28/16 at 1230, Intra-Operative (Intra-Procedure), Routine 911 (Given - Provid er: Clovis Ramos RN)914 (Given - Provider: Clovis Ramos RN)918 (Given - Provider: Clovis Ramos RN)09 (Given - Provider: Clovis Ramos RN) midazolam (PF) (VERSED) 1 mg/mL multi-dose injection (CANCELED) ONCE PRN, Starting on Sun02/28/16 at 0912, Until Sun02/28/16 at 1230, Intra-Operative (Intra-Procedure), Routine 911 (Given - Provid er: Clovis Ramos RN)914 (Given - Provider: Clovis Ramos RN)918 (Given - Provider: Clovis Ramos RN)09 (Given - Provider: Clovis Ramos RN) documented in this encounter Care Teams Manager Print Relationship Specialty Start Date End Date Sonido Cordoba PA [address] [place] [address] PCP - General Family Medicine 11/16/15 06/22/20 documented as of this encounter
--- OUTSIDE RECORDS SUMMARY | 2024-10-25 13:29 | XMS_ITS | Encounter Summary ---
Author Organization [facility] [place] [address] Care Team Providers Care Photo Optics Technician Name Role Phone Sonido Cordoba Primary Care Provider [phone] Reason for Visit * Diagnostic Test (Routine) - Closed Specialty Diagnoses / Procedures Referred By Aric madrigal Referred To Contact Radiology Diagnoses Meralgia paraesthetica, left Procedures MRI Pelvis WO Contrast MRI Pelvis With/WO Contrast Bryan Grant MD [facility] [place] [address] [facility] [place] [address] Referral ID Status Reason Start Date Expiration Date V isits Requested Visits Authorized [id number] Closed Specialty Service Requested 03/24/2016 03/24/2017 1 1 Encounter Details Date Type Department Care Team (Latest Contact Info) Description 03/31/2016 5:28 PM EDT - 03/31/2016 11:59 PM EDT Hospital [place] [address] Nito Marin DO [facility] [place] [address] Meralgia paraesthetica, left Discharge Disposition: Home Social [...] 8:45 AM EST Appointment [place] [address] Keri Avila [address] [place] [address] 12/31/2024 10:00 AM EST Office [place] [address] Mercy Amanda MD [facility] DR [facility] [place] [address] 04/01/2025 2:00 PM EDT Office [place] [address] Erum Szymanski MD [facility] [address] documented as of this encounter Procedures Procedure Name Priority Date/Time Associated Diagnosis Comments MRI PELVIS SOFT TISSUE (GI VP SOFTWARE SUPPORT) WO CONTRAST Routine 03/31/2016 7:57 PM EDT [...] nerve abnormality is identified. Nito Urban DO IMG MRI ORDERABLES documented in this encounter Visit Diagnoses Diagnosis Meralgia paraesthetica, left documented in this encounter Care Teams Photo Optics Technician Relationship Specialty Start Date End Date Sonido Cordoba PA [address] [place] [address] PCP - General Family Medicine 11/16/15 06/22/20 documented as of this encounter
--- OUTSIDE RECORDS SUMMARY | 2024-10-25 13:30 | XMS_ITS | Encounter Summary ---
Author Organization [facility] [place] [address] Care Team Providers Care Giant Tire Repairer Name Role Phone Latanya Wade MD Primary Care Provider [phone] Reason for Visit * Reason Comments Nephrolithiasis Encounter Details Date Type Department Care Team (Latest Contact Info) Description 06/17/2015 1:20 PM EDT Procedure [place] [address] Devan Nuñez Jr., MD [facility] [place] [address] Renal stones (Primary Dx) Discharge Disposition: Home [...] and cola. You do not need to [id number] ounces of water today. Urination: You will likely have a small amount of blood in your urine for the next several days. This is normal; however, if you are passing large amounts of blood clots or are unable to void please call our office at [phone] before 5PM or [phone] after hours. Please call if: * you have copious blood in your urine * fevers greater than 101.3 F * you are unable to void The number for questions is [phone] before 5 PM weekdays and [phone] after 5 PM and weekends. Follow-up: With [...] 11/26/2024 8:45 AM EST Appointment [place] [address] Keri Avila [address] [place] [id number] 12/31/2024 10:00 AM EST Office [place] [address] Mercy Amanda MD [facility] DR [facility] [address] 04/01/2025 2:00 PM EDT Office [place] [address] Eurm Szymanski MD [facility] GASTROENTEROLOGY [place], [place] [phone] Scheduled Orders Name Type Priority Associated Diagnoses [...] 03:22 pm) Patient Info ID #: ? [id number] ?: ??[birth year] (39 yrs) Name: ? VIANNEY Chao ? Visit Date: 08/31/2015 03:07 pm ? SON Performed By Performed By: ? Dorota Alva RDMS Attending: ?Rafita RIVAS, Shirley Boles Associate: ?Son RIVAS, Nohemi Referred By: ?DEVAN NUÑEZ MD Service(s) Provided ??URETRO - Retroperitoneal Complete - [id number] ? [id number] Indications ??kidney stones, ? medullary Comparison CT [...] 08/31/2015 03:22 pm) Patient Info ID #: [id number] : [birth year] (39 yrs) Name: VIANNEY Chao Visit Date: 08/31/2015 03:07 pm SON Performed By Performed By: Dorota Alva RDMS Attending: Shirley Eller MD Associate: Nohemi Cline MD Referred By: DEVAN NUÑEZ MD Service(s) Provided URETRO - Retroperitoneal Complete - [id number] Indications kidney stones, ? medullary Comparison CT [...] 08/31/2015 03:22 pm Devan Nuñez Jr., MD IM US GEN ORDERAB LES * Cysto, Stent [...] kidney documented in this encounter Care Teams Giant Tire Repairer Relationship Specialty Start Date End Date Latanya Wade MD [facility] [address] [place] [address] [place] [address] PCP - General 08/27/13 11/01/15 documented as of this encounter
--- OUTSIDE RECORDS SUMMARY | 2024-10-25 13:30 | XMS_ITS | Encounter Summary ---
Author Organization [facility] Address [facility] [place] [address] Care Team Providers Care Foot Gatherer Name Role Phone Latanya Wade MD Primary Care Provider [phone] Reason for Visit * Reason Comments Nephrolithiasis Encounter Details Date Type Department Care Team (Late st Contact Info) Description 05/04/2015 12:00 PM EDT Follow[place] [address] Darius Nuñez Jr., MD [facility] [place] [address] Right nephrolithiasis Discharge Disposition: Home Social History [...] encounter Miscellaneous Notes * Addendum Note - Luz Marina Chacko LPN - 05/04/2015 1:57 PM EDTAddended by: LUZ MARINA CHACKO on: 05/04/2015 01:57 PM Modules accepted: Orders documented in this encounter Plan of Treatment Upcoming Encounters Date Type Department Care Team (Kylee Contact Info) Description 11/26/2024 8:45 AM EST Appointment [place] [address] Keri Avila [address] [place] [address] 12/31/2024 10:00 AM EST Office [place] [address] Mercy Amanda MD [facility] DR [facility] [address] 04/01/2025 2:00 PM EDT Office [place] [address] Erum Szymanski MD [facility] [place] [address] documented as of this encounter [...] to the laboratory, if clinically significant. (A) ANDIGABY HOUSTONARYIUM Urine specimen obtained by clean catch procedure (specimen) 05/04/2015 1:56 PM EDT 05/04/2015 3:19 PM EDT Narrative Resulting Agency Comment Spec In Lab Darius Nuñez Jr., MD MICROBIOLOGY - GEN ERAL ORDERABLES MELISSA CURTIS documented in this encounter Visit Diagnoses Diagnosis Right nephrolithiasis documented in this encounter Care Teams Foot Gatherer Relationship Specialty Start Date End Date Latanya Wade MD [facility] [address] [place] [address] [place] [address] PCP - General 08/27/13 11/01/15 documented as of this encounter
--- OUTSIDE RECORDS SUMMARY | 2024-10-25 13:30 | XMS_ITS | Encounter Summary ---
[place] [address] Care Team Providers Care Reproducer Name Role Phone Latanya Wade MD Primary Care Provider [phone] Encounter Details Date Type Department Care Team (Latest Contact Info) Description 05/04/2015 9:17 AM EDT - 05/04/2015 11:59 PM EDT Hospital [place] [address] CLINIC, DR GAVIN Right nephrolithiasis Social History [...] as needed. 210 mL 0 04/06/2015 06/02/2015 Eubdyybvgzejy-Bttwurog-Gt tein Tablet Take by mouth. 07/30/2015 documented as of this encounter Plan of Treatment Upcoming Encounters Date Type Department Care Team (Late st Contact Info) Description 11/26/2024 8:45 AM EST [place] [address] Keri Avila [address] [place] [address] 12/31/2024 10:00 AM EST Office [place] [address] Mercy Amanda MD [facility] [address] [facility] [place] [address] 04/01/2025 2:00 PM EDT Office [place] [address] Erum Szymanski MD [facility] [place] [address] documented as of this encounter Procedures Procedure [...] renal pelvis calculus. Darius Nuñez Jr., MD IM CT ORDERABLES documented in this encounter Visit Diagnoses Diagnosis Right nephrolithiasis documented in this encounter Care Teams Reproducer Relationship Specialty Start Date End Date Latanya Wade MD [facility] [address] [place] [address] [place] [address] PCP - General 08/27/13 11/01/15 documented as of this encounter
--- OUTSIDE RECORDS SUMMARY | 2024-10-25 13:30 | XMS_ITS | Encounter Summary ---
[place] [address] Care Team Providers Care Branch Account Executive Name Role Phone Latanya Wade MD Primary Care Provider [phone] Reason for Referral * Consultation (Routine) - Closed Specialty Diagnoses / Procedures Referred By Aric madrigal Referred To Contact Urology Diagnoses Calculus of right kidney Demi Gage APRN [facility] [place] [address] [facility] [place] [address] Referral ID Status Reason Start Date Expiration Date V isits Requested Visits Authorized [id number] Closed Consult, Test & Treat 02/03/2015 02/03/2016 3 3 Encounter Details Date Type Department Care Team (Late st Contact Info) Description 02/03/2015 Telephone [place] [address] Demi Gage APRN Social History Tobacco Use Types Packs/Day Years [...] 11/26/2024 8:45 AM EST Appointment [place] [address] Keri Avila [address] [place] [address] 12/31/2024 10:00 AM EST Office Visit Weight Center at [place] [phone] Mercy Amanda MD [facility] [address] [facility] [place] [address] 04/01/2025 2:00 PM EDT Office Visit [place] [address] Erum Szymanski MD [facility] [place] [address] Scheduled Referrals Name Type Priority Associated Diagnoses Orde r Schedule Referral to Urology Outpatient Referral Routine Calculus of right kidney Ordered: 02/03/2015 documented as of this encounter Visit Diagnoses Diagnosis Calculus of right kidney Calculus of kidney documented in this encounter Care Teams Branch Account Executive Relationship Specialty Start Date End Date Latanya Wade MD [facility] [address] [place] [address] PCP - General 08/27/13 11/01/15 documented as of this encounter
--- OUTSIDE RECORDS SUMMARY | 2024-10-25 13:30 | XMS_ITS | Encounter Summary ---
Author Organization [facility] Address [facility] [place] [address] Care Team Providers Care Washcoat Wiper Name Role Phone Latanya Wade MD Primary Care Provider [phone] Encounter Details Date Type Department Care Team (Latest Contact Info) Description 07/30/2015 2:10 PM EDT - 07/30/2015 11:59 PM EDT Hospital Encounter XRay at [address] [place] [address] Pain in left shoulder Social History Tobacco [...] 11/26/2024 8:45 AM EST Appointment [place] [address] Keri Avila [address] [place] [address] 12/31/2024 10:00 AM EST Office [place] [phone] Mercy Amanda MD [facility] [address] [facility] [address] 04/01/2025 2:00 PM EDT Office [place] [address] Erum Szymanski MD [facility] [place] [address] documented as of this encounter Procedures Procedure [...] region documented in this encounter Care Teams Washcoat Wiper Relationship Specialty Start Date End Date Latanya Wade MD [facility] [address] [place] [address] [place] [address] PCP - General 08/27/13 11/01/15 documented as of this encounter
--- OUTSIDE RECORDS SUMMARY | 2024-10-25 13:30 | XMS_ITS | Encounter Summary ---
Author Organization [facility] Address [facility] [place] [address] Care Team Providers Care Drill Operator Name Role Phone Latanya Wade MD Primary Care Provider [phone] Encounter Details Date Type Department Care Team (Late st Contact Info) Description 06/28/2015 Orders [place] [address] Iris Andres MD [facility] [place] [address] Pain in left shoulder Social History Tobacco [...] 11/26/2024 8:45 AM EST [place] [address] Keri Avila [address] [place] [address] 12/31/2024 10:00 AM EST Office [place] [address] Mercy Amanda MD [facility] [address] [facility] [place] [address] 04/01/2025 2:00 PM EDT Office [place] [address] Erum Szymanski MD [facility] [place] [address] documented as of this encounter Results * [...] region documented in this encounter Care Teams Drill Operator Relationship Specialty Start Date End Date Latanya Wade MD [facility] [address] [place] [address] [place] [address] PCP - General 08/27/13 11/01/15 documented as of this encounter
--- OUTSIDE RECORDS SUMMARY | 2024-10-25 13:30 | XMS_ITS | Encounter Summary ---
Author Organization [facility] [place] [address] Care Team Providers Care Boiler Tube Reamer Name Role Phone Latanya Wade MD Primary Care Provider [phone] Reason for Visit * Reason Comments Nephrolithiasis Encounter Details Date Type Department Care Team (Latest Contact Info) Description 04/06/2015 3:20 PM EDT [place] [address] Darius Nuñez Jr., MD [facility] [place] [address] Right nephrolithiasis Discharge Disposition: Home Social History [...] 11/26/2024 8:45 AM EST [place] [address] Keri Avila [address] [place] [address] 12/31/2024 10:00 AM EST Office [place] [address] Mercy Amanda MD [facility] [address] [facility] [place] [address] 04/01/2025 2:00 PM EDT Office [place] [address] Erum Szymanski MD [facility] [place] [address] documented as of this encounter Results * [...] nephrolithiasis documented in this encounter Care Teams Boiler Tube Reamer Relationship Specialty Start Date End Date Latanya Wade MD [facility] [address] [place] [address] PCP - General 08/27/13 11/01/15 documented as of this encounter
--- OUTSIDE RECORDS SUMMARY | 2024-10-25 13:30 | XMS_ITS | Encounter Summary ---
[place] [address] Care Team Providers Care Optics Engineer Name Role Phone Latanya Wade MD Primary Care Provider [phone] Reason for Visit * Reason Comments Follow-up Encounter Details Date Type Department Care Team (Late st Contact Info) Description 03/31/2015 3:30 PM EDT [place] [phone] Demi Gage APRN GI problem Discharge Disposition: Home Social History [...] this encounter Progress Notes * Demi Gage, STRATEGIC PLANNING MANAGER - 03/31/2015 2:00 PM EDT Subjective: Patient ID: Vianney Saini is a 39 y.o. woman who presents for follow up of her gastrointestinal symptoms. GI Problem List: 1. Rodgers's esophagus/GERD: --EGD 01/27/15: LA grade D esophagitis; large hiatal hernia; normal stomach and duodenum. Path: Specialized metaplastic columnar mucosa consistent with Rogders's esophagus. No dysplasia. --US abdomen 01/27/15: 1. [...] Remainder of ROS unremarkable. Interval Hx 03/31/2015: Vianney Arriaga is a pleasant 39 year old [...] BIOPSY performed by Brandt Barlow MD at [facility] ENDOSCOPY Vital Signs: BP 125/48; P 78; [...] Gage APRN Section of Gastroenterology [place] [address] documented in this encounter Plan of Treatment Upcoming Encounters Date Type Department Care Team (Late st Contact Info) Description 11/26/2024 8:45 AM EST [place] [address] Keri Avila [address] [place] [address] 12/31/2024 10:00 AM EST Office [place] [address] Mercy Amanda MD [facility] [address] [facility] [address] 04/01/2025 2:00 PM EDT Office [place] [address] Erum Szymanski MD [facility] [place] [address] documented as of this encounter Visit Diagnoses Diagnosis GI problem Other symptoms involving digestive system documented in this encounter Care Teams Optics Engineer Relationship Specialty Start Date End Date Latanya Wade MD [facility] [address] [place] [address] [place] [address] PCP - General 08/27/13 11/01/15 documented as of this encounter
--- OUTSIDE RECORDS SUMMARY | 2024-10-25 13:30 | XMS_ITS | Encounter Summary ---
Author Organization [facility] Address [facility] [place] [address] Care Team Providers Care Photography Coordinator Name Role Phone Latanya Wade MD Primary Care Provider [phone] Encounter Details Date Type Department Care Team (Latest Contact Info) Description 02/23/2015 10:50 AM EDT - 02/23/2015 11:59 PM EDT Hospital Encounter XRay at [address] [place] [address] CLINIC, Brandt Harris MD Hiatal hernia Discharge Disposition: Home Social History [...] 11/26/2024 8:45 AM EST [place] [address] Keri Avila [address] [place] [address] 12/31/2024 10:00 AM EST Office [place] [address] Mercy Amanda MD [facility] [address] [facility] [address] 04/01/2025 2:00 PM EDT Office [place] [address] Erum Szymanski MD [facility] [place] [address] documented as of this encounter Procedures Procedure [...] mLs documented in this encounter Care Teams Photography Coordinator Relationship Specialty Start Date End Date Latanya Wade MD [facility] [address] [place] [address] [place] [address] PCP - General 08/27/13 11/01/15 documented as of this encounter
--- OUTSIDE RECORDS SUMMARY | 2024-10-25 13:30 | XMS_ITS | Encounter Summary ---
[place] [address] Care Team Providers Care Rn Medication Name Role Phone Latanya Wade MD Primary Care Provider [phone] Encounter Details Date Type Department Care Team (Latest Contact Info) Description 05/04/2015 11:20 AM EDT Office [place] [phone] Valentín Moura MD Postoperative state Discharge Disposition: Home Social History [...] 11/26/2024 8:45 AM EST Appointment [place] [address] Keri Avila [address] [place] [address] 12/31/2024 10:00 AM EST Office [place] [phone] Mercy Amanda MD [facility] DR [facility] [address] 04/01/2025 2:00 PM EDT Office Visit [place] [phone] Erum Szymanski MD [facility] [place] [address] documented as of this encounter Visit Diagnoses Diagnosis Postoperative state Other postprocedural status documented in this encounter Care Teams Rn Medication Relationship Specialty Start Date End Date Latanya Wade MD [facility] [address] [place] [address] [place] [address] PCP - General 08/27/13 11/01/15 documented as of this encounter
--- OUTSIDE RECORDS SUMMARY | 2024-10-25 13:30 | XMS_ITS | Encounter Summary ---
Author Organization [facility] [place] [address] Care Team Providers Care Buckle Frame Shaper Name Role Phone Latanya Newberry MD Primary Care Provider [phone] Encounter Details Date Type Department Care Team (Latest Contact Info) Description 06/01/2015 4:18 PM EDT - 06/02/2015 12:56 PM EDT Hospital Encounter [place] [address] Darius Nuñez Jr., MD [facility] [place] [address] Discharge Disposition: Home Social History Tobacco Use [...] Vianney Saini Patient Age: 39 y.o. Language: South [place]ese Race: White Ethnicity: Not nor Admit date: [...] Hospital Course: Patient was admitted electively to [facility] via the same day surgery program and [...] 2-4 mg Quantity: 120 mL Refills: 0 Nstqsnxsgyxaj-Focopewr-Wmjfzw Tab Take by mouth. Refills: 0 Smoking [...] longer draining. The number for questions is [phone] before 5 PM weekdays and [phone] after 5 PM and weekends. Activity: Gradually [...] (acetaminophen) or Ibuprofen (Advil, Motrin) as directed [id number]-[id number]. Take any prescriptions as directed. Follow up Appointments: Follow-up appointment will be scheduled with Dr. Nuñez in approximately 2 weeks for a hospital check and stent removal. Appointment will be mailed to you. Please call [phone] (clinic number for appointments) to confirm date [...] Phone 06/17/2015 1:00 PM UROLOGY, PROCEDURE Urology [phone] 06/17/2015 1:20 PM Darius Nuñez Jr., MD [facility] Urology [phone] Follow-Up: Future Appointments Date Time Provider Department Center 06/17/2015 1:00 PM UROLOGY, PROCEDURE [facility] 06/17/2015 1:20 PM Darius Nuñez Jr., MD [facility] None Primary Care Provider: LATANYA NEWBERRY MD (General) [phone] Follow-up Recommendations for Providers: Please see discharge [...] was managed by the Urology Team at [facility]. If you have any questions or concerns, please feel free to contact us. Provider Contact Information: Urology Clinic: [facility] (after business hours): documented in this encounter [...] longer draining. The number for questions is [phone] before 5 PM weekdays and [phone] after 5 PM and weekends. Activity: Gradually [...] (acetaminophen) or Ibuprofen (Advil, Motrin) as directed wrqu-svy-dsekwhb. Take any prescriptions as directed. Follow up Appointments: Follow-up appointment will be scheduled with Dr. Nuñez in approximately 2 weeks for a hospital check and stent removal. Appointment will be mailed to you. Please call [phone] (clinic number for appointments) to confirm date [...] EDT Simi Obando RN Case Manager pager [phone] Record reviewed. No discharge needs identified at this time. Wire Stitcher remains available as needed for coordination of [...] Operative Note Patient Name: Vianney Saini : [id number] MR#: [id number] Case Date: 06/01/2015 Surgeon: Surgeon(s) and Role: [...] wire. The cystoscope was removed and a 5-[place]ay[place] Islander Axtell catheter was passed over the wire and [...] the 8/10 dilator was passed over the [place] wire to gently dilate the tract. The dilator was removed, and an angiographic catheter was placed over the Glidewire. This was used to redirect the wire out the urethra, obtaining scsqkmf-qxk-bgznvzz access. The wire was exchanged for a Superstiff. The angiographic catheter was removed. An 8/10 dilator was placed over the supe rstiff wire. The inner cannula was removed, and an additional Glidewire was placed down the 8/10 dilator. This wire also passed out through the urethra. An angiographic catheter was passed over the [place] and it was exchanged for an additional [...] to a pressure of 14 atmospheres. The 30-Cay[place] Islander access sheath was easily placed over the [...] The rigid nephroscope was then reinserted. The [place] wire was backloaded into the scope and in an antegrade fashion, a 6F VL7. The distal coil was seen fluoroscopically to be in good position in the bladder and the proximal coil was visualized to be in good position in the renal pelvis. The rigid nephroscope was removed and a 24 amharic Afton catheter was passed through the access sheath [...] evidence for hydro or pneumothorax. A 5F Axtell catheter was passed over the working wire and into the Afton nephrostomy tube. It was seen onfluoroscopy to [...] Operative Note Patient Name: Vianney Saini : [id number] MR#: [id number] Case Date: 06/01/2015 Surgeon: Surgeon(s) and Role: [...] 11/26/2024 8:45 AM [place] [address] [address]Keri [address]anches [address] [address] 12/31/2024 10:00 AM EST Office [place] [address] Mercy Amanda MD [facility] [address] [place] [id number] 04/01/2025 2:00 PM EDT Office Visit Gastroenterology at [facility] [place] [address] Erum Szymanski MD [facility] [place] [address] Pending Results Name Type Priority Associated Diagnoses [...] EDT TYPE AND SCREEN, SDP (FUTURE SURGERY, [facility] SAME DAY PROGRAM ONLY) Routine 06/01/2015 12:41 [...] * (ABNORMAL) Hemogram (06/02/2015 3:45 AM EDT) Pathologist [facility] White Blood Cell 11.5(H) 4.0 - 10.0 [...] MD HEMATOLOGY ORDERAB LES CERNER ROSEMARIEENNIUM * (ABNORMAL) Basic Metabolic Panel (non-fasting) (06/02/2015 3:45 AM EDT) [facility] Glucose 116 65 - 199 mg/dL CERNER MILLENNIUM Comment:Diabetes: >=200 mg/d L plus symptoms Blood Urea Nitrogen 8 8 - 18 mg/dL CERNER MILLENNIUM Creatinine 0.69(L) 0.70 - 1.20 mg/dL CERNER MILLENNIUM Comment: Please note that the pediatric reference intervals supplied above were not validated at [facility]. Results from pediatric patients should be interpreted [...] the following links into your internet browser. [email or web address] Blood specimen (specimen) 06/02/2015 3:45 AM EDT [...] Metabolic Panel (non-fasting) (06/01/2015 3:19 PM EDT) [facility] Glucose 134 65 - 199 mg/dL CERNER MILLENNIUM Comment:Diabetes: >=200 mg/d L plus symptoms Blood Urea Nitrogen 10 8 - 18 mg/dL CERNER MILLENNIUM Creatinine 0.82 0.70 - 1.20 mg/dL CERNER MILLENNIUM Comment: Please note that the pediatric reference intervals supplied above were not validated at [facility]. Results from pediatric patients should be interpreted [...] the following links into your internet browser. [email or web address] Blood specimen (specimen) 06/01/2015 3:19 PM EDT 06/01/2015 3:26 PM EDT Narrative Resulting Agency Comment Spec In Lab Darius Nuñze Jr., MD CHEMISTRY ORDERABL ES MELISSA ZHENGIUM * Kidney Stone Analysis (06/01/2015 2:24 PM EDT) Kidney Stone Analysis (MAY) Test ?Result ?Flag ??Unit ??RefValue Kidney Stone Analysis ??Source: ? Right Renal ??1st Constituent: 50% Calcium phosphate (apatite) ??2nd Constituent: 20% Calcium oxalate monohydrate ??3rd Constituent: 20% Calcium oxalate dihydrate ??Comment ? 10% Calcium carbonate Test Performed by: [address] [address] Plumbing Inspector: Valentín Goetz II, M.D., Ph.D. MELISSA CURTIS Calculus specimen (specimen) 06/01/2015 2:24 PM EDT 06/01/2015 2:59 PM EDT Narrative Resulting Agency Comment Spec In Lab Darius Nuñez Jr., MD LAB SEND OUT ORDER SUGAR Performing Organization Address City/[facility] Co de Phone Number MELISSA CURTIS * Antibody screen (06/01/2015 12:41 PM EDT) Ab Screen Interp Negative MELISSA ZHENGIUM Expires at [id number] on: 06/04/2015 EMLISSA CURTIS Blood specimen (specimen) 06/01/2015 12:41 PM EDT 06/01/2015 12:41 PM EDT Narrative Resulting Agency Comment Spec In Lab Darius Nuñez Jr., MD BLOOD BANK LAB ORD ERABLES Performing Organization Address City/[facility] Co de Phone Number MELISSA CURTIS * ABO/Rh Typing (06/01/2015 12:41 PM EDT) ABORH Type A Pos MELISSA CURTIS Blood specimen (specimen) 06/01/2015 12:41 PM EDT 06/01/2015 12:41 PM EDT Narrative Resulting Agency Comment Spec In Lab Darius Nuñez Jr., MD BLOOD BANK LAB ORD ERABLES Performing Organization Address [facility] Co de Phone Number MELISSA CURTIS documented [...] Plus (COMPLETED) 1,000 mg (1 g), Intravenous, ETHYLENE PLANT OPERATOR TO O.R., 1 dose, On Sun06/01/15 at [...] 0.9% 106.525 mL (COMPLETED) 261 mg, Intravenous, ETHYLENE PLANT OPERATOR TO O.R., 1 dose, On Sun06/01/15 at [...] Walsh RN)2348 (New Bag - Provider: Nelly Boyd, RN) PRN Medication Order 05/31/2015 06/01/2015 06/02/2015 BUpivacaine (PF) (MARCAINE) 0.5 % (5 mg/mL) injection (CANCELED) ONCE PRN, Starting on Sun06/01/15 at 1429, Until Sun06/01/15 at 1611, Intra-Operative (Intra-Procedure), Routine 1429 (Given - Provider: Darius Nuñez Jr., MD - Comment: mixed 1:1 with 1% Xylocaine w/epinephrine 1:[id number]) HYDROmorphone (DILAUDID) syringe 0.2-0.4 mg (CANCELED) 0.2-0.4 [...] Routine documented in this encounter Care Teams Buckle Frame Shaper Relationship Specialty Start Date End Date Latanya Newberry MD [facility] [address] [place] [address] [place] [address] PCP - General 08/27/13 11/01/15 documented as of this encounter
--- OUTSIDE RECORDS SUMMARY | 2024-10-25 13:30 | XMS_ITS | Encounter Summary ---
[place] [address] Care Team Providers Care Social Sciences Professor Name Role Phone Latanya Wade MD Primary Care Provider [phone] Reason for Visit * Reason Onset Date Comments Medication Refill 02/23/2015 Encounter Details Date Type Department Care Team (Late st Contact Info) Description 02/23/2015 Refill [place] [phone] Melina Hobbs CMA Rodgers's esophagus with esophagitis Social History Tobacco [...] 8:45 AM EST Appointment [place] [phone] Keri Avila [address] [place] [address] 12/31/2024 10:00 AM EST Office [place] [phone] Mercy Amanda MD [facility] [place] [address] 04/01/2025 2:00 PM EDT Office Visit [place] [phone] Erum Szymanski MD [facility] [place] [address] documented as of this encounter Visit Diagnoses Diagnosis Rodgers's esophagus with esophagitis Rodgers's esophagus documented in this encounter Care Teams Social Sciences Professor Relationship Specialty Start Date End Date Latanya Wade MD [facility] [address] [place] [address] [place] [address] PCP - General 08/27/13 11/01/15 documented as of this encounter
--- OUTSIDE RECORDS SUMMARY | 2024-10-25 13:30 | XMS_ITS | Encounter Summary ---
Author Organization [facility] Address [facility] [place] [address] Care Team Providers Care Science Education Professor Name Role Phone Latanya Wade MD Primary Care Provider [phone] Encounter Details Date Type Department Care Team (Late st Contact Info) Description 05/06/2015 Notes [place] [address] Paresh Viramontes MD [facility] [address] Social History Tobacco Use Types Packs/Day Years [...] 11/26/2024 8:45 AM EST [place] [address] Keri vAila [address] [place] [address] 12/31/2024 10:00 AM EST Office Visit Weight Center at [place] [phone] Mercy Amanda MD [facility] [address] [facility] [address] 04/01/2025 2:00 PM EDT Office [place] [address] Erum Szymanski MD [facility] [place] [address] documented as of this encounter Visit Diagnoses Not on filedocumented in this encounter Care Teams Science Education Professor Relationship Specialty Start Date End Date Latanya Wade MD HOSPITALIST [facility] [address] [place] [address] [place] [address] PCP - General 08/27/13 11/01/15 documented as of this encounter
--- OUTSIDE RECORDS SUMMARY | 2024-10-25 13:30 | XMS_ITS | Encounter Summary ---
[place] [address] Care Team Providers Care Manager Dairy Name Role Phone Latanya Wade MD Primary Care Provider [phone] Encounter Details Date Type Department Care Team (Latest Contact Info) Description 02/23/2015 1:40 PM EDT Office Visit [place] [phone] Valentín Moura MD Gastroesophageal reflux disease with esophagitis Discharge Disposition: [...] MD - 02/23/2015 2:19 PM EDT Vianney Caracmo is a 39-year-old female referred to me [...] with her today, the entire time in plqq-fj-[id number] conversation regarding the pathophysiology of gastroesophageal reflux [...] 11/26/2024 8:45 AM EST Appointment [place] [address] RubyDiamondKeri Sanches [address] [place] [address] 12/31/2024 10:00 AM EST Office Visit [place] [address] Mercy Amanda MD [facility] [address] [facility] [address] 04/01/2025 2:00 PM EDT Office Visit [place] [address] Erum Szymanski MD [facility] [place] [address] documented as of this encounter Visit Diagnoses Diagnosis Gastroesophageal reflux disease with esophagitis documented in this encounter Care Teams Manager Dairy Relationship Specialty Start Date End Date Latanya Wade MD [facility] [address] [place] [address] [place] [address] PCP - General 08/27/13 11/01/15 documented as of this encounter
--- OUTSIDE RECORDS SUMMARY | 2024-10-25 13:30 | XMS_ITS | Encounter Summary ---
[place] [address] Care Team Providers Care Assistant Drafter Name Role Phone Latanya Newberry MD Primary Care Provider [phone] Encounter Details Date Type Department Care Team (Latest Contact Info) Description 04/05/2015 8:21 AM EDT - 04/06/2015 3:42 PM EDT Hospital Encounter [facility] [address] [place] [phone] Valentín Moura MD Discharge Disposition: Home Social History Tobacco [...] this encounter Discharge Summaries * Erik Rivera - 04/06/2015 11:50 AM EDT General Surgery [...] a post-Rosy clear liquid diet and a CRAB FISHERMAN for pain control. she received subcutaneous heparin for DVT prophylasix. On POD#1 her diet was advanced to post-Rosy full liquids, which was tolerated well. The pre coder provided education for a post-Rosy diet on discharge. she was changed to oral pain medications and CRAB FISHERMAN was discontinued on POD#1. The chirinos catheter [...] Refills: 0 Continued medications, unchanged Dose Details Yzhtqkkfjkkvj-Leqtbzqc-Kbofyt Tab Take by mouth. Refills: 0 STOPPED Medications pantoprazole 40 mg Tbec Commonly known as: PROTONIX Disposition: Home Allergies: Allergies Allergen Reactions ??? Oxycodone Nausea And Vomiting Outpatient Services/Studies: No discharge procedures on file. Scheduled Appointments: Future Appointments Provider Department Dept Phone 04/06/2015 3:20 PM Darius Nuñez Jr., MD Urology [phone] Instructions Given to Patient at Discharge: Patient [...] HOLIDAYS: ASK FOR THE GENERAL SURGERY RESIDENT MAIL LIST PROCESSOR IF ANY OF THE ABOVE OCCUR. Activity level: Increase your activity slowly. You may tire easily, so frequent rest periods may be necessary. Do not lift more than 10 pounds for 4 weeks. Walk three times a day. Use common sense. Don't exhaust yourself. Diet: You should follow a post Rosy diet, as instructed by the pre coder in the hospital for a period of [...] at the General [facility] - [facility]L You will receive a letter in the mail confirming the appointment date and time. Your follow-up is very important to us. Please call [phone] if you do not hear from us within 7 days of discharge or if you need to change the appointment date/time. General Instructions None Future Appointments Provider Department Dept Phone 04/06/2015 3:20 PM Darius Nuñez Jr., MD Urology [phone] Signed: Erik Rivera MD 04/06/2015 Primary Marisela Physician: LATANYA NEWBERRY MD HOSPITALIST SERVICES [address] [place] [address] / [facility] * documented in this encounter Discharge Instructions [...] HOLIDAYS: ASK FOR THE GENERAL SURGERY RESIDENT MAIL LIST PROCESSOR IF ANY OF THE ABOVE OCCUR. Activity level: Increase your activity slowly. You may tire easily, so frequent rest periods may be necessary. Do not lift more than 10 pounds for 4 weeks. Walk three times a day. Use common sense. Don't exhaust yourself. Diet: You should follow a post Rosy diet, as instructed by the pre coder in the hospital for a period of [...] at the General [facility] - [facility]L You will receive a letter in the mail confirming the appointment date and time. Your follow-up is very important to us. Please call [phone] if you do not hear from us [...] as needed. 210 mL 0 04/06/2015 06/02/2015 Pxdurnzmwgatp-Wsmhnzsb-Ia tein Tablet Take by mouth. 07/30/2015 documented as of this encounter Progress Notes * Simi Obando RN - 04/06/2015 12:10 PM EDT Simi Obando RN Case Manager pager [phone] Record reviewed and patient discussed with multidisciplinary [...] the interim. EDUARDO Corley * Erik Rivera Radha - 04/06/2015 7:21 AM EDT General Surgery Daily Progress Note Vianney Saini 1975 [id number] ID [id number] y.o. y/o F POD#1 s/p Lap Rosy 24 Events: No acute events Tolerated clears Chaim removed this am S: Pain well controlled, [...] aim for discharge later today. N: d/c CRAB FISHERMAN, transition to po liquid pain meds CV: No issues Pulm: OOB to ambulate, encourage IS GI: Advance to post-Rosy fulls this am, home on post-Rosy diet x 3 weeks, ok to stop PPI, to see nutrition consult today : chirinos removed this am, due to void FEN/Renal: HLIV, good uop Endo: No issues Heme: No issues ID:No issues Prophy: [facility] Dispo: Floor status, likely home later [...] pain 10/10 scale and falls backasleep quickly. CRAB FISHERMAN teaching provided, pt demonstrated understanding of teaching. [...] with her today, the entire time in vvyv-be-gyvh conversation regarding the pathophysiology of gastroesophageal reflux [...] BIOPSY performed by Brandt Barlow MD at [facility] ENDOSCOPY No current facility-administered medications on [...] lock IV, advance rosy diet, dc dilaudid CRAB FISHERMAN asnd begin po pain meds, dc home. [...] Control Outcome: Ongoing (Interventions Implemented as Appropriate) 04/06/15 05 Safety Interventions Isolation Precautions standard precautions maintained [...] Moura MD - 04/05/2015 12:04 PM EDT [facility] Operative Note Patient Name: Vianney Saini : [id number] MR#: [id number] Case Date: 04/05/2015 Surgeon: Surgeon(s) and Role: [...] a 3-stitch, 2.5-cm fundoplication performed over a 60-American bougie. There were no intraoperative complications. Details [...] The esophagus was then encircled using a Tho which was held in place using Endoloop. Further paraesophageal dissection was performed until we had obtained approximately 3 cm of tension- free intraabdominal esophagus. At this point, the diaphragmatic hiatus was approximated using interrupted sutures of 0 Nurolon tied over Yosvany pledgets. We then wrapped the stomach posterior to the esophagus and a 60-American bougie was passed by Anesthesiology down the [...] was irrigated. Excellent hemostasis was assured. The [place] drain was cut and removed. The liver [...] Operative Note Patient Name: Vianney Saini : [id number] MR#: [id number] Case Date: 04/05/2015 Surgeon: Surgeon(s) and Role: [...] a 3-stitch, 2.5-cm fundoplication performed over a 60-American bougie. There were no intraoperative complications. Details [...] The esophagus was then encircled using a [place] which was held in place using Endoloop. Further paraesophageal dissection was performed until we had obtained approximately 3 cm of tension- free intraabdominal esophagus. At this point, the diaphragmatic hiatus was approximated using interrupted sutures of 0 Nurolon tied over Yosvany pledgets. We then wrapped the stomach posterior to the esophagus and a 60-American bougie was passed by Anesthesiology down the [...] 11/26/2024 8:45 AM EST App[place] [address] Keri Avila [address] [place] [address] 12/31/2024 10:00 AM EST Office [place] [phone] Mercy Amanda MD [facility] [address] [place] [address] 04/01/2025 2:00 PM EDT Office [place] [address] Erum Szymanski MD [facility] [place] [address] documented as of this encounter Procedures Procedure [...] 30 minutes if pruritis not relieved. Per CRAB FISHERMAN order, Recovery (Recovery-Hospital Unit), Routine Given 04/05/2015 [...] EDT 5,000 Units HYDROmorphone (DILAUDID) 1 mg/mL CRAB FISHERMAN 30 mL Intravenous, CRAB FISHERMAN ONLY, Starting on Sun04/05/15 at 1300, Until [...] ordered, use ondansetron first, prochlorperazine second. Per CRAB FISHERMAN order, Recovery (Recovery-Hospital Unit) Given 04/05/2015 4:43 [...] Procedure), Routine 0934 (Given - Provider: Konstantin Edwards, NIMCO) heparin (porcine) subcutaneous injection 5,000 Units (CANCELED) [...] 04/04/2015 04/05/2015 04/06/2015 HYDROmorphone (DILAUDID) 1 mg/mL CRAB FISHERMAN 30 mL (CANCELED) Intravenous, CRAB FISHERMAN ONLY, Starting on Sun04/05/15 at 1300, Until Sun04/06/15 at 0701, Recovery (Recovery-Hospital Unit) 1248 (New Syringe/Cartridge - Provider: Luzma Hoffmann, RN) lactated ringers infusion 1,000 mL (CANCELED) 1,000 mL, at 100 mL/hr, Intravenous, CONTINUOUS, Starting on Sun04/05/15 at 0900, Until Sun04/05/15 at 1237, Day of Surgery (Day of Procedure) 0900 (New Bag - Provider: Kristal Barajas, NIMCO)1000 (Anesthesia Volume Adjustment - Provider: Tammy Arias [...] 30 minutes if pruritis not relieved. Per CRAB FISHERMAN order, Recovery (Recovery-Hospital Unit), Routine 2218 (Given [...] mg;, Routine 0756 (Given - Provid er: Danielel Hammond RN)1133 (Given - Provider: Danielle Hammond [...] RN)1007 (Given - Provider: Danielle Hammond RN)1156 ([facility] Hold - Provider: Admin Adt - Reason: [...] ordered, use ondansetron first, prochlorperazine second. Per CRAB FISHERMAN order, Recovery (Recovery-Hospital Unit) 1643 (Given - [...] Routine documented in this encounter Care Teams Assistant Drafter Relationship Specialty Start Date End Date Latanya Newberry MD [facility] [address] [place] [address] [place] [address] PCP - General 08/27/13 11/01/15 documented as of this encounter
--- OUTSIDE RECORDS SUMMARY | 2024-10-25 13:30 | XMS_ITS | Encounter Summary ---
[place] [address] Care Team Providers Care Neonatal Intensive Care Unit Nurse Name Role Phone Latanya Wade MD Primary Care Provider [phone] Reason for Visit * Reason Comments Nephrolithiasis Encounter Details Date Type Department Care Team (Latest Contact Info) Description 08/31/2015 4:00 PM EDT [place] [address] Devan Nuñez Jr., MD [facility] [place] [address] Recurrent nephrolithiasis Social History Tobacco Use Types [...] - 08/31/2015 4:31 PM EDT HPI: Vianney Saini returns for urologic follow up after undergoing [...] 11/26/2024 8:45 AM EST Appointment [place] [phone] Keri Avila [address] [place] [address] 12/31/2024 10:00 AM EST Office Visit Weight Center at [place] [phone] Mercy Amanda MD [facility] DR [address] [facility] [address] 04/01/2025 2:00 PM EDT Office [place] [phone] Erum Szymanski MD [facility] [place] [address] documented as of this encounter Results * [...] ? pm) PATIENT INFO: ID #: ? [id number] ?: ??[birth year] (40 yrs) Name: ? VIANNEY NEVES ?Visit Date: 08/08/2016 11:03 am ? GABRIELLE PERFORMED BY: Performed By: ? Mejia Morelos RDMS Attending: ?Terell RIVAS, Fatoumata Boles Associate: ?Bryan RIVAS, Huber Luciano Referred By: ?DEVAN NUÑEZ MD SERVICE(S) PROVIDED: ??URETRO - Retroperitoneal Complete - [id number] ? [id number] INDICATIONS: ??? stones COMPARISON: Ultrasound: RENAL/BLADDER 01/01/15 [...] 08/21/2016 01:51 pm) PATIENT INFO: ID #: [id number] : [birth year] (40 yrs) Name: VIANNEY NEVES Visit Date: 08/08/2016 11:03 am GABRIELLE PERFORMED BY: Performed By: Mejia Morelos RDMS Attending: Fatoumata Figueredo MD Associate: Huber Adams MD Referred By: DEVAN NUÑEZ MD SERVICE(S) PROVIDED: URETRO - Retroperitoneal Complete - [id number] INDICATIONS: ? stones COMPARISON: Ultrasound: RENAL/BLADDER 01/01/15 [...] kidney documented in this encounter Care Teams Neonatal Intensive Care Unit Nurse Relationship Specialty Start Date End Date Latanya Wade MD [facility] [address] [place] [address] [place] [address] PCP - General 08/27/13 11/01/15 documented as of this encounter
--- OUTSIDE RECORDS SUMMARY | 2024-10-25 13:30 | XMS_ITS | Encounter Summary ---
[place] [address] Care Team Providers Care Leather Goods Ii Assembler Name Role Phone Latanya Newberry MD Primary Care Provider [phone] Encounter Details Date Type Department Care Team (Late st Contact Info) Description 04/05/2015 10:02 AM EDT - 04/05/2015 1:30 PM EDT Surgery [place] [phone] Valentín Moura MD LAPAROSCOPIC ROSY FUNDOPLASTY (WRVU 18.1) Social History [...] documented in this encounter Discharge Summaries * Miguel Erik M - 04/06/2015 11:50 AM EDT General Surgery [...] a post-Rosy clear liquid diet and a FOREST FIRE EQUIPMENT OPERATOR for pain control. she received subcutaneous heparin for DVT prophylasix. On POD#1 her diet was advanced to post-Rosy full liquids, which was tolerated well. The ur coordinator provided education for a post-Rosy diet on discharge. she was changed to oral pain medications and FOREST FIRE EQUIPMENT OPERATOR was discontinued on POD#1. The chirinos catheter [...] Refills: 0 Continued medications, unchanged Dose Details Auiacneenpwav-Zixstwxk-Ozyxcv Tab Take by mouth. Refills: 0 STOPPED Medications pantoprazole 40 mg Tbec Commonly known as: PROTONIX Disposition: Home Allergies: Allergies Allergen Reactions ??? Oxycodone Nausea And Vomiting Outpatient Services/Studies: No discharge procedures on file. Scheduled Appointments: Future Appointments Provider Department Dept Phone 04/06/2015 3:20 PM Darius Nuñez Jr., MD Urology [phone] Instructions Given to Patient at Discharge: Patient [...] HOLIDAYS: ASK FOR THE GENERAL SURGERY RESIDENT SENIOR MILITARY ANALYST IF ANY OF THE ABOVE OCCUR. Activity level: Increase your activity slowly. You may tire easily, so frequent rest periods may be necessary. Do not lift more than 10 pounds for 4 weeks. Walk three times a day. Use common sense. Don't exhaust yourself. Diet: You should follow a post Rosy diet, as instructed by the ur coordinator in the hospital for a period of [...] at the General Surgery Outpatient [facility] - [facility] You will receive a letter in the mail confirming the appointment date and time. Your follow-up is very important to us. Please call [phone] if you do not hear from us within 7 days of discharge or if you need to change the appointment date/time. General Instructions None Future Appointments Provider Department Dept Phone 04/06/2015 3:20 PM Darius Nuñez Jr., MD Urology [phone] Signed: Erik Rivera MD 04/06/2015 Primary Marisela Physician: LATANYA NEWBERRY MD HOSPITALIST SERVICES [address] [place] [address] / [facility] * documented in this encounter Discharge [...] HOLIDAYS: ASK FOR THE GENERAL SURGERY RESIDENT SENIOR MILITARY ANALYST IF ANY OF THE ABOVE OCCUR. Activity level: Increase your activity slowly. You may tire easily, so frequent rest periods may be necessary. Do not lift more than 10 pounds for 4 weeks. Walk three times a day. Use common sense. Don't exhaust yourself. Diet: You should follow a post Rosy diet, as instructed by the ur coordinator in the hospital for a period of [...] at the General Surgery Outpatient Clinic - [facility] You will receive a letter in the mail confirming the appointment date and time. Your follow-up is very important to us. Please call [phone] if you do not hear from us [...] as needed. 210 mL 0 04/06/2015 06/02/2015 Vitboovjmlhos-Byexcrmd-Hv tein Tablet Take by mouth. 07/30/2015 documented as of this encounter Progress Notes * Simi Obando RN - 04/06/2015 12:10 PM EDT Simi Obando RN Case Manager pager [phone] Record reviewed and patient discussed with multidisciplinary [...] the interim. EDUARDO Corley * Miguel Erik M - 04/06/2015 7:21 AM EDT General Surgery Daily Progress Note Vianney Saini 1975 [id number] ID [id number] y.o. y/o F POD#1 s/p Lap Rsoy 24 Events: No acute events Tolerated clears [...] aim for discharge later today. N: d/c FOREST FIRE EQUIPMENT OPERATOR, transition to po liquid pain meds CV: No issues Pulm: OOB to ambulate, encourage IS GI: Advance to post-Rosy fulls this am, home on post-Rosy diet x 3 weeks, ok to stop PPI, to see nutrition consult today : taran removed this am, due to void FEN/Renal: HLIV, good uop Endo: No issues Heme: No issues ID:No issues Prophy: [facility] Dispo: Floor status, likely home later today [...] pain 10/10 scale and falls backasleep quickly. FOREST FIRE EQUIPMENT OPERATOR teaching provided, pt demonstrated understanding of teaching. [...] with her today, the entire time in djku-kj-irov conversation regarding the pathophysiology of gastroesophageal reflux [...] BIOPSY performed by Brandt Barlow MD at [facility] ENDOSCOPY No current facility-administered medications on [...] lock IV, advance rosy diet, dc dilaudid FOREST FIRE EQUIPMENT OPERATOR asnd begin po pain meds, dc home. [...] Moura MD - 04/05/2015 12:04 PM EDT [facility] Operative Note Patient Name: Vianney Saini : [id number] MR#: [id number] Case Date: 04/05/2015 Surgeon: Surgeon(s) and Role: [...] a 3-stitch, 2.5-cm fundoplication performed over a 60-Rwandan bougie. There were no intraoperative complications. Details [...] The esophagus was then encircled using a [place] which was held in place using Endoloop. Further paraesophageal dissection was performed until we had obtained approximately 3 cm of tension- free intraabdominal esophagus. At this point, the diaphragmatic hiatus was approximated using interrupted sutures of 0 Nurolon tied over Yosvany pledgets. We then wrapped the stomach posterior to the esophagus and a 60-Rwandan bougie was passed by Anesthesiology down the [...] Operative Note Patient Name: Vianney Saini : [id number] MR#: [id number] Case Date: 04/05/2015 Surgeon: Surgeon(s) and Role: [...] a 3-stitch, 2.5-cm fundoplication performed over a 60-Rwandan bougie. There were no intraoperative complications. Details [...] stomach posterior to the esophagus and a 60-Rwandan bougie was passed by Anesthesiology down the [...] was irrigated. Excellent hemostasis was assured. The [place] drain was cut and removed. The liver [...] 11/26/2024 8:45 AM EST Appointment [place] [address] [address] [address] 12/31/2024 10:00 AM EST Office [place] [phone] Mercy Amanda MD [facility] DR [address] [facility] [address] 04/01/2025 2:00 PM EDT Office [place] [address] Erum Szymanski MD [facility] [place] [address] documented as of this encounter Procedures Procedure [...] 30 minutes if pruritis not relieved. Per FOREST FIRE EQUIPMENT OPERATOR order, Recovery (Recovery-Hospital Unit), Routine Given 04/05/2015 [...] EDT 5,000 Units HYDROmorphone (DILAUDID) 1 mg/mL FOREST FIRE EQUIPMENT OPERATOR 30 mL Intravenous, FOREST FIRE EQUIPMENT OPERATOR ONLY, Starting on Sun04/05/15 at 1300, Until [...] ordered, use ondansetron first, prochlorperazine second. Per FOREST FIRE EQUIPMENT OPERATOR order, Recovery (Recovery-Hospital Unit) Given 04/05/2015 4:43 [...] shown in EDT. Scheduled Medication Order 04/04/2015 04/05/201504/06/2015 ceFAZolin (ANCEF) 2g in dextrose 5% 50 [...] 0634 (Given - Provider: Mi Martinez RN)1156 (MAR Hold - Provider: Admin Adt [...] 04/04/2015 04/05/2015 04/06/2015 HYDROmorphone (DILAUDID) 1 mg/mL FOREST FIRE EQUIPMENT OPERATOR 30 mL (CANCELED) Intravenous, FOREST FIRE EQUIPMENT OPERATOR ONLY, Starting on Sun04/05/15 at 1300, Until [...] 30 minutes if pruritis not relieved. Per FOREST FIRE EQUIPMENT OPERATOR order, Recovery (Recovery-Hospital Unit), Routine 221 (Given - Provider: Mi Martinez RN)2342 (Given - Provider: Mi Martinez RN) diphenhydrAMINE (BENADRYL) injection 25 mg 25 mg, Intravenous, EVERY 6 HOURS PRN, Starting on Sun04/06/15 at 0414, Until Sun04/06/15 at 1744, Itching, Routine 0421 (Given - Provid er: Mi Martinez RN)1156 ([facility] Hold - Provider: Admin Adt - Reason: Transfer to a Procedural area)1157 ([facility] Unhold - Provider: Admin Adt) HYDROmorphone (DILAUDID) oral liquid 2-4 mg 2-4 mg, Oral, EVERY 3 HOURS PRN, Starting on Sun04/06/15 at 0700, Until Sun04/06/15 at 1744, Pain, For pain level 0-4 give 2 mg; For pain level 5-10 give 4 mg;, Routine 0756 (Given - Provid er: Danielle Hammond RN)1133 (Given - Provider: Danielle Hammond RN)1156 ([facility] Hold - Provider: Admin Adt - Reason: Transfer to a Procedural area)1157 ([facility] Unhold - Provider: Admin Adt) ketorolac (TORADOL) injection 15 mg (CANCELED)(Linked Group 1) 15 mg, Intravenous, EVERY 6 HOURS PRN, Starting on Sun04/05/15 at 1237, Until Sun04/06/15 at 1744, Pain, for MODERATE pain (4-6), Avoid if CrCl less than 50 ml/min. Do not administer with other NSAIDS, Routine 1356 (Given - Provider: Luzma Hoffmann RN)2150 (See Alternative - Provider: Mi Martinez RN) 0415 (See Alternative - Provider: Mi Martinez RN)1007 (Given - Provider: Danielle Hammond RN)1156 ([facility] Hold - Provider: Admin Adt - Reason: Transfer to a Procedural area)1157 ([facility] Unhold - Provider: Admin Adt) ketorolac (TORADOL) [...] (See Alternative - Provider: Danielle Hammond RN)1156 (J[facility] Hold - Provider: Admin Adt - Reason: Transfer to a Procedural area)1157 ([facility] Unhold - Provider: Admin Adt) ondansetron (ZOFRAN) injection 4 mg (CANCELED) 4 mg, Intravenous, EVERY 30 MIN PRN, 2 doses, Starting on Sun04/05/15 at 1419, Until Sun04/06/15 at 1744, Nausea, May repeat dose once in 30 minutes if no relief from previous dose. If multiple antiemetics are ordered, use ondansetron first, prochlorperazine second. Per FOREST FIRE EQUIPMENT OPERATOR order, Recovery (Recovery-Hospital Unit) 1643 (Given - [...] Routine documented in this encounter Care Teams Leather Goods Ii Assembler Relationship Specialty Start Date End Date Latanya Newberry MD HOSPITALIST SERVICES [address] [place] [address] [place] [address] PCP - General 08/27/13 11/01/15 documented as of this encounter
--- OUTSIDE RECORDS SUMMARY | 2024-10-25 13:30 | XMS_ITS | Encounter Summary ---
[place] [address] Care Team Providers Care Mineral Surveyor Name Role Phone Latanya Wade MD Primary Care Provider [phone] Reason for Referral * Physical Therapy (Routine) - Closed Specialty Diagnoses / Procedures Referred By Contac t Referred To Contact Physical Therapy Diagnoses Medial collateral ligament sprain of knee, right, initial encounter Lizbeth Guzman APRN [facility] [place] [address] [facility] [place] [address] Referral ID Status Reason Start Date Expiration Date V isits Requested Visits Authorized [id number] Closed Evaluate and Treat 07/30/2015 07/29/2016 24 24 * Physical Therapy (Routine) - Closed Specialty Diagnoses / Procedures Referred By Conteulalio madrigal Referred To Contact Physical Therapy Diagnoses Pain in left shoulder Impingement syndrome of shoulder, left Injury of superior glenoid labrum of shoulder joint, left, initial encounter Lizbeth Guzman APRN [facility] [place] [address] [facility] [place] [address] Referral ID Status Reason Start Date Expiration Date V isits Requested Visits Authorized [id number] Closed Evaluate and Treat 07/30/2015 07/29/2016 24 24 Reason for Visit * Reason Comments Left Shoulder Pain Encounter Details Date Type Department Care Team (Late st Contact Info) Description 07/30/2015 2:25 PM EDT Office [place] [address] [facility] [place] [address] Medial collateral ligament sprain of knee, right, [...] this encounter Progress Notes * Lizbeth Guzman, INDUCTION HEAT TREATER - 07/30/2015 3:08 PM EDT Shoulder and Elbow Service [place], [place] New Patient Evaluation Date of Evaluation: [...] is using Tylenol PRN. 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 There has been no work incident [...] MD at [facility] ENDOSCOPY ??? Pro lap, esophagogast fundoplasty N/A 04/05/2015 LAPAROSCOPIC TYESHA FUNDOPLASTY performed by Valentín Moura MD at [facility] MAIN OR ??? N/A 04/05/2015 MODIFIER, HIATAL HERNIA performed by Valentín Moura MD at [facility] MAIN OR ??? Pro percut remv kid stone, up to 2 cm Right 06/01/2015 NEPHROLITHOTOMY, (PCNL) PERCUTANEOUS performed by Darius Nuñez Jr., MD at [facility] OR ??? Pro percut dilatn renal tract Right 06/01/2015 PERCUTANEOUS INTRO GUIDE WIRE TO ACCESS RENAL PELVIS,AND OR URETER, W\DILATION performed by Darius Nuñez Jr., MD at [facility] OR ??? Pro cysto/uretero/pyeloscopy, dx Right 06/01/2015 CYSTOURETEROSCOPY, DIAGNOSTIC performed by Darius Nuñez Jr., MD at [facility] MAIN OR ??? Pro cystoscopy, insert ureteral stent Right 06/01/2015 CYSTO, STENT PLACEMENT performed by Darius Nuñez Jr., MD at [facility] OR History Social History ??? Marital Status: Spouse Name: N/A Number of Children: N/A ??? Years of Education: N/A Occupational History ??? Paty Katz at [employer] Social History Main Topics ??? Smoking [...] needed for Itching. 10 mL ??? [DISCONTINUED] Cgldqgdguugzb-Nmydsugo-Ryycqn Tablet Take by mouth. No current facility-administered [...] very pleasant 39 year old Female in [facility]. Alert and oriented X3. Affect is brightand [...] tendon with a negative Speeds, Yergason's and [place]'s. Scapula: There is no obvious scapular dyskinesia [...] prn for above. Department of Orthopaedic Surgery [place], [place] [address] documented in this encounter Plan of Treatment Upcoming Encounters Date Type Department Care Team (Late st Contact Info) Description 11/26/2024 8:45 AM EST [place] [address] Keri Avila [address] [place] [address] 12/31/2024 10:00 AM EST Office [place] [address] [facility] [address] [place] [address] 04/01/2025 2:00 PM EDT Office [place] [address] [facility] [place] [address] Scheduled Referrals Name Type Priority Associated Diagnoses [...] [840.7] documented in this encounter Care Teams Mineral Surveyor Relationship Specialty Start Date End Date Latanya Wade MD [facility] [address] [place] [address] [place] [address] PCP - General 08/27/13 11/01/15 documented as of this encounter
--- OUTSIDE RECORDS SUMMARY | 2024-10-25 13:30 | XMS_ITS | Encounter Summary ---
[place] [address] Care Team Providers Care Sales Representative Meats Name Role Phone Latanya Wade MD Primary Care Provider [phone] Encounter Details Date Type Department Care Team (Late st Contact Info) Description 02/03/2015 Telephone [place] [address] Demi Gage APRN Social History [...] 11/26/2024 8:45 AM EST Appointment Ultrasound at [address] [place] [address] 12/31/2024 10:00 AM EST Office Visit Weight Center at [place] [phone] Mercy Amanda MD [facility] [address] [place] [address] 04/01/2025 2:00 PM EDT Office Visit Gastroenterology at [place] [phone] Erum Szymanski MD [facility] [place] [address] documented as of this encounter Visit Diagnoses Not on filedocumented in this encounter Care Teams Sales Representative Meats Relationship Specialty Start Date End Date Latanya Wade MD HOSPITALIST SERVICES [address] [place] [address] [place] [address] PCP - General 08/27/13 11/01/15 documented as of this encounter
--- OUTSIDE RECORDS SUMMARY | 2024-10-25 13:30 | XMS_ITS | Encounter Summary ---
[place] [address] Care Team Providers Care Ribbon Blockmaker Name Role Phone Latanya Wade MD Primary Care Provider [phone] Reason for Visit * Reason Onset Date Comments Prior Authorization 02/23/2015 Encounter Details Date Type Department Care Team (Late st Contact Info) Description 02/23/2015 Telephone [place] [phone] Melina Hobbs CMA Prior Authorization Social History Tobacco Use Types [...] mouth BID Pharmacy Name and phone number: [facility] [phone] Insurance name and phone number: [place] [phone] Insurance ID number: [id number] Faxed to health plan on: 02/23/2015 Medications tried and failed: pantoprazole QD Prilosec : both no effective after awhile Health plan decision: Medication has been approved from 02/24/2015 until 02/25/2016 prior authorization # [id number] Tracking # [id number] documented in this encounter Plan of Treatment Upcoming Encounters Date Type Department Care Team (Late st Contact Info) Description 11/26/2024 8:45 AM EST Appointment Ultrasound at [place] [phone] Keri Avila [address] [place] [address] 12/31/2024 10:00 AM EST Office [place] [address] Mercy Amanda MD [facility] [address] [place] [address] 04/01/2025 2:00 PM EDT Office [place] [phone] Erum Szymanski MD [facility] [place] [address] documented as of this encounter Visit Diagnoses Not on filedocumented in this encounter Care Teams Ribbon Blockmaker Relationship Specialty Start Date End Date Latanya Wade MD HOSPITALIST SERVICES [address] [place] [address] [place] [address] PCP - General 08/27/13 11/01/15 documented as of this encounter
--- OUTSIDE RECORDS SUMMARY | 2024-10-25 13:30 | XMS_ITS | Encounter Summary ---
Author Organization [facility] Address [facility] [place] [address] Care Team Providers Care Cork Grinder Name Role Phone Latanya Wade MD Primary Care Provider [phone] Encounter Details Date Type Department Care Team (Latest Contact Info) Description 08/31/2015 2:53 PM EDT - 08/31/2015 11:59 PM EDT Hospital [place] [address] Devan Roth Jr., MD [facility] [place] [address] Renal stones Discharge Disposition: Home Social History [...] 11/26/2024 8:45 AM EST [place] [phone] [address] [place] [address] 12/31/2024 10:00 AM EST Office [place] [phone] Mercy Amanda MD [facility] DR [facility] [address] 04/01/2025 2:00 PM EDT Office [place] [phone] Erum Szymanski MD [facility] [place] [address] documented as of this encounter Procedures Procedure [...] 03:22 pm) Patient Info ID #: ? [id number] ?: ??[birth year] (39 yrs) Name: ? VIANNEY Chao ? Visit Date: 08/31/2015 03:07 pm ? SON Performed By Performed By: ? Dorota Alva RDMS Attending: ?Rafita RIVAS, Shirley J. Associate: ?Son RIVAS [facility] Referred By: ?DEVAN ROTH MD Service(s) Provided ??URETRO - Retroperitoneal Complete - [id number] ? [id number] Indications ??kidney stones, ? medullary Comparison CT [...] 08/31/2015 03:22 pm) Patient Info ID #: [id number] : [birth year] (39 yrs) Name: VIANNEY Chao Visit Date: 08/31/2015 03:07 pm SON Performed By Performed By: Dorota Alva RDMS Attending: Shirely Eller MD Associate: Nohemi Cline MD Referred By: DEVAN ROTH MD Service(s) Provided URETRO - Retroperitoneal Complete - [id number] Indications kidney stones, ? medullary Comparison CT [...] Signed Final Report 08/31/2015 03:22 pm Devan Roth Jr., MD IMG US GEN ORDERAB LES documented in this encounter Visit Diagnoses Diagnosis Renal stones Calculus of kidney documented in this encounter Care Teams Cork Grinder Relationship Specialty Start Date End Date Latanya Wade MD HOSPITALIST SERVICES [address] [place] [address] [place] [address] PCP - General 08/27/13 11/01/15 documented as of this encounter
--- OUTSIDE RECORDS SUMMARY | 2024-10-25 13:30 | XMS_ITS | Encounter Summary ---
[place] [address] Care Team Providers Care Aws Solution Architect Name Role Phone Latanya Wade MD Primary Care Provider [phone] Encounter Details Date Type Department Care Team (Late st Contact Info) Description 04/05/2015 9:36 AM EDT Anesthesia [place] [phone] David Velasco MD [facility] [place] [address] Facundo Quintanilla MD Anesthesia Record Procedure Summary Procedure Name Responsible [...] 0900; metacarpal vein left (top of hand); levw-xbd-mrhiil catheter system; 18 gauge; Kristal Barajas RN; distraction, intradermal injection, tolerated well, appears comfortable, age-appropriate response; 06/01/15; 1556 04/05/15 0900 by Kristal Barajas RN 06/01/15 1556 by Nunu Walsh RN ETT Mask Ventilation: [...] 2:59 PM EDT Pre-Anesthesia Evaluation for: Vianney garza 39 y.o. female. Procedure(s): LAPAROSCOPIC TYESHA FUNDOPLASTY [...] by Brandt Barlow MD at [facility] ENDOSCOPY History Substance Use Topics ??? Smoking [...] products. Plan discussed with resident and attending. [facility]. Assessment: documented in this encounter Plan of Treatment Upcoming Encounters Date Type Department Care Team (Late st Contact Info) Description 11/26/2024 8:45 AM EST Appoint[place] [address] [address] [place] [address] 12/31/2024 10:00 AM EST Office [place] [address] Mercy Amanda MD [facility] DR [facility] [address] 04/01/2025 2:00 PM EDT Office [place] [address] Erum Szymanski MD [facility] [place] [address] documented as of this encounter Visit Diagnoses [...] mg documented in this encounter Care Teams Aws Solution Architect Relationship Specialty Start Date End Date Latanya Wade MD HOSPITALIST SERVICES [address] [place] [address] [place] [address] PCP - General 08/27/13 11/01/15 documented as of this encounter
--- OUTSIDE RECORDS SUMMARY | 2024-10-25 13:30 | XMS_ITS | Encounter Summary ---
Author Organization [facility] [place] [address] Care Team Providers Care Associate Business Analyst Name Role Phone Latanya Newberry MD Primary Care Provider [phone] Encounter Details Date Type Department Care Team (Late st Contact Info) Description 06/01/2015 11:54 AM EDT - 06/01/2015 4:18 PM EDT Surgery [place] [address] Darius Nuñez Jr., MD [facility] [place] [address] NEPHROLITHOTOMY, (PCNL) PERCUTANEOUS (WRVU 12.41) Social History [...] Vianney Saini Patient Age: 39 y.o. Language: Cymro Race: White Ethnicity: Not nor Admit date: [...] Hospital Course: Patient was admitted electively to [facility] via the same day surgery program and [...] 2-4 mg Quantity: 120 mL Refills: 0 Bguphuxlwxzwf-Dhnygysk-Pqhetr Tab Take by mouth. Refills: 0 Smoking [...] longer draining. The number for questions is [phone] before 5 PM weekdays and [phone] after 5 PM and weekends. Activity: Gradually [...] (acetaminophen) or Ibuprofen (Advil, Motrin) as directed fqih-eev-tejdtsr. Take any prescriptions as directed. Follow up Appointments: Follow-up appointment will be scheduled with Dr. Nuñez in approximately 2 weeks for a hospital check and stent removal. Appointment will be mailed to you. Please call [phone] (clinic number for appointments) to confirm date [...] Phone 06/17/2015 1:00 PM UROLOGY, PROCEDURE Urology [phone] 06/17/2015 1:20 PM Darius Nuñez Jr., MD [facility] Urology [phone] Follow-Up: Future Appointments Date Time Provider Department Center 06/17/2015 1:00 PM UROLOGY, PROCEDURE [facility] 06/17/2015 1:20 PM Darius Nuñez Jr., MD [facility] None Primary Care Provider: LATANYA NEWBERRY MD ([facility]) [phone] Follow-up Recommendations for Providers: Please see discharge [...] contact us. Provider Contact Information: Urology Clinic: [facility] (after business hours): documented in this encounter [...] longer draining. The number for questions is [phone] before 5 PM weekdays and [phone] after 5 PM and weekends. Activity: Gradually [...] (acetaminophen) or Ibuprofen (Advil, Motrin) as directed rnaz-iwz-gnnrpez. Take any prescriptions as directed. Follow up Appointments: Follow-up appointment will be scheduled with Dr. Nuñez in approximately 2 weeks for a hospital check and stent removal. Appointment will be mailed to you. Please call [phone] (clinic number for appointments) to confirm date [...] EDT Simi Obando RN Case Manager pager [phone] Record reviewed. No discharge needs identified at this time. Filling Mixer remains available as needed for coordination of [...] Operative Note Patient Name: Vianney Saini : [id number] MR#: [id number] Case Date: 06/01/2015 Surgeon: Surgeon(s) and Role: [...] wire. The cystoscope was removed and a 5-Dutch [place] catheter was passed over the wire and [...] the 8/10 dilator was passed over the [place] wire to gently dilate the tract. The dilator was removed, and an angiographic catheter was placed over the Glidewire. This was used to redirect the wire out the urethra, obtaining oubcfhc-lus-jxfhmxh access. The wire was exchanged for a Superstiff. The angiographic catheter was removed. An 8/10 dilator was placed over the supe rstiff wire. The inner cannula was removed, and an additional Glidewire was placed down the 8/10 dilator. This wire also passed out through the urethra. An angiographic catheter was passed over the [place] and it was exchanged for an additional [...] to a pressure of 14 atmospheres. The 30-Dutch access sheath was easily placed over the [...] The rigid nephroscope was then reinserted. The [place] wire was backloaded into the scope and in an antegrade fashion, a 6F VL7. The distal coil was seen fluoroscopically to be in good position in the bladder and the proximal coil was visualized to be in good position in the renal pelvis. The rigid nephroscope was removed and a 24 greenlandic Colleen catheter was passed through the access sheath [...] evidence for hydro or pneumothorax. A 5F [place] catheter was passed over the working wire and into the Or[place] nephrostomy tube. It was seen onfluoroscopy to [...] Operative Note Patient Name: Vianney Saini : [id number] MR#: [id number] Case Date: 06/01/2015 Surgeon: Surgeon(s) and Role: [...] 11/26/2024 8:45 AM EST Appointment [place] [address] Keri Avila [address] [place] [address] 12/31/2024 10:00 AM EST Office [place] [address] Mercy Amanda MD [facility] DR [facility] [address] 04/01/2025 2:00 PM EDT Office Visit Gastroenterology at [facility] [address] Erum Szymanski MD [facility] [place] [address] Pending Results Name Type Priority Associated Diagnoses [...] EDT TYPE AND SCREEN, SDP (FUTURE SURGERY, [facility] SAME DAY PROGRAM ONLY) Routine 06/01/2015 12:41 [...] Darius Nuñez Jr., MD HEMATOLOGY ORDERAB LES Performing Organization Address [facility] Co de Phone Number CERNER MILLENNIUM * (ABNORMAL) Hemogram (06/02/2015 3:45 [...] Darius Nuñez Jr., MD HEMATOLOGY ORDERAB LES Performing Organization Address [facility]/ZIP Co de Phone Number CERGABY ZHENGIUM * (ABNORMAL) Basic Metabolic Panel (non-fasting) (06/02/2015 3:45 AM EDT) Glucose 116 65 - 199 mg/dL CERNER MILLENNIUM Comment:Diabetes: >=200 mg/d L plus symptoms Blood Urea Nitrogen 8 8 - 18 mg/dL CERNER MILLENNIUM Creatinine 0.69(L) 0.70 - 1.20 mg/dL CERNER MILLENNIUM Comment: Please note that the pediatric reference intervals supplied above were not validated at [facility]. Results from pediatric patients should be interpreted [...] the following links into your internet browser. [email or web address] Blood specimen (specimen) 06/02/2015 3:45 AM EDT [...] Darius Nuñez Jr., MD HEMATOLOGY ORDERAB LES MELISSA ZHENGIUM * Hemogram (06/01/2015 3:19 PM EDT) White [...] Metabolic Panel (non-fasting) (06/01/2015 3:19 PM EDT) [facility] Glucose 134 65 - 199 mg/dL CERNER MILLENNIUM Comment:Diabetes: >=200 mg/d L plus symptoms Blood Urea Nitrogen 10 8 - 18 mg/dL CERNER MILLENNIUM Creatinine 0.82 0.70 - 1.20 mg/dL CERNER MILLENNIUM Comment: Please note that the pediatric reference intervals supplied above were not validated at [facility]. Results from pediatric patients should be interpreted [...] the following links into your internet browser. [email or web address] Blood specimen (specimen) 06/01/2015 3:19 PM EDT 06/01/2015 3:26 PM EDT Narrative Resulting Agency Comment Spec In Lab Darius Nuñez Jr., MD CHEMISTRY ORDERABL ES MELISSA CURTIS * Kidney Stone Analysis (06/01/2015 2:24 PM EDT) Kidney Stone Analysis (MAY) Test ?Result ?Flag ??Unit ??RefValue Kidney Stone Analysis ??Source: ? Right Renal ??1st Constituent: 50% Calcium phosphate (apatite) ??2nd Constituent: 20% Calcium oxalate monohydrate ??3rd Constituent: 20% Calcium oxalate dihydrate ??Comment ? 10% Calcium carbonate Test Performed by: [facility] [address] [address] Director It: Valentín Goetz II, M.D., Ph.D. MELISSA ZHENGIUM Calculus specimen (specimen) 06/01/2015 2:24 PM EDT 06/01/2015 2:59 PM EDT Narrative Resulting Agency Comment Spec In Lab Darius Nuñez Jr., MD LAB SEND OUT ORDER SUGAR MELISSA ZHENGIUM * Antibody screen (06/01/2015 12:41 PM EDT) Ab Screen Interp Negative MELISSA ZHENGIUM Expires at 2359 on: 06/04/2015 MELISSA ZHENGIUM Blood specimen (specimen) 06/01/2015 12:41 PM EDT 06/01/2015 12:41 PM EDT Narrative Resulting Agency Comment Spec In Lab Darius Nuñez Jr., MD BLOOD BANK LAB ORD ERABLES MELISSA CURTIS * ABO/Rh Typing (06/01/2015 12:41 PM EDT) ABORH Type A Pos MELISSA ZHENGIUM Blood specimen (specimen) 06/01/2015 12:41 PM EDT 06/01/2015 12:41 PM EDT Narrative Resulting Agency Comment Spec In Lab Darius Nuñez Jr., MD BLOOD BANK LAB ORD ERABLES MELISSA CURTIS documented in this encounter Visit [...] Plus (COMPLETED) 1,000 mg (1 g), Intravenous, MAPPING SPECIALIST TO O.R., 1 dose, On Sun06/01/15 at 1115, Administer over 15 Minutes, Day of Surgery (Day of Procedure), Indication for (Active or Suspected): Prophylaxis 120 (Given - Provider: Rainer Yi MD) belladonna-opium (B&O SUPPRETTES) 16.2-60 mg suppository 60 mg (COMPLETED) 60 mg, Rectal, ONCE, On Sun06/01/15 at 1745, 1 dose 1733 (Given - Provider: Priti Duke RN) ciprofloxacin [...] 0.9% 106.525 mL (COMPLETED) 261 mg, Intravenous, MAPPING SPECIALIST TO O.R., 1 dose, On Sun06/01/15 at [...] Unit) 1530 (New Bag - Provider: Janene Walsh, RN)2348 (New Bag - Provider: Nelly Boyd RN) PRN Medication Order 05/31/2015 06/01/2015 06/02/2015 BUpivacaine (PF) (MARCAINE) 0.5 % (5 mg/mL) injection (CANCELED) ONCE PRN, Starting on Sun06/01/15 at 1429, Until Sun06/01/15 at 1611, Intra-Operative (Intra-Procedure), Routine 1429 (Given - Provider: Darius Nuñez Jr., MD - Comment: mixed 1:1 with 1% Xylocaine w/epinephrine [id number]) HYDROmorphone (DILAUDID) syringe 0.2-0.4 mg (CANCELED) 0.2-0.4 [...] Nunu Walsh RN)1527 (Given - Provider: Nunu Walsh, RN)1550 (Given - Provider: Nunu Walsh RN) HYDROmorphone (DILAUDID) tablet 2 mg (CANCELED)(Linked Group 1) 2 mg, Oral, EVERY 4 HOURS PRN, Starting on Sun06/01/15 at 1526, Until Sun06/02/15 at 1502, Pain, for mild pain (1-3), May give an additional 2 mg once if pain not relieved in 30-60 minutes., Routine 184 (See Alternative - Provider: Priti Duke RN)2346 (Given - Provider: Nelly Boyd RN) HYDROmorphone (DILAUDID) tablet 4 mg (CANCELED)(Linked Group 1) 4 mg, Oral, EVERY 4 HOURS PRN, Starting on Sun06/01/15 at 1526, Until Sun06/02/15 at 1502, Pain, for moderate pain (4-6), May give an additional 2 mg once if pain not relieved in 30-60 minutes., Routine 184 (Given - Provider: Priti Duke RN)2346 (See Alternative - Provider: Nelly Boyd RN) [...] documented in this encounter Care Teams Associate Business Analyst Relationship Specialty Start Date End Date Latanya Newberry MD HOSPITALIST SERVICES [address] [place] [address] [place] [address] PCP - General 08/27/13 11/01/15 documented as of this encounter
--- OUTSIDE RECORDS SUMMARY | 2024-10-25 13:30 | XMS_ITS | Encounter Summary ---
Author Organization [facility] [place] [address] Care Team Providers Care Fairing Man Name Role Phone Latanya Wade MD Primary Care Provider [phone] Encounter Details Date Type Department Care Team (Late st Contact Info) Description 07/30/2015 1:00 PM EDT Office Visit Physical Therapy at [facility] [address] [place] [phone] Sandra Amaro, PT Iris Andres MD [facility] DR [place] [address] Pain in left shoulder Social History Tobacco [...] will be indep with home exercise program. PACK WORKER PT GOALS: (.11.19) 1. patient should be able to wash [...] 8:45 AM EST Appointment [place] [phone] Keri Avila [address] [place] [address] 12/31/2024 10:00 AM EST Office Visit [place] [phone] Mercy Amanda MD [facility] DR [facility] [address] 04/01/2025 2:00 PM EDT Office Visit [place] [phone] Erum Szymanski MD [facility] [place] [address] documented as of this encounter Visit Diagnoses Diagnosis Pain in left shoulder Pain in joint, shoulder region documented in this encounter Care Teams Fairing Man Relationship Specialty Start Date End Date Latanya Wade MD [facility] [address] [place] [address] [place] [address] PCP - General 08/27/13 11/01/15 documented as of this encounter
--- OUTSIDE RECORDS SUMMARY | 2024-10-25 13:30 | XMS_ITS | Encounter Summary ---
[place] [address] Care Team Providers Care Medicaid Collection Specialist Name Role Phone Latanya Wade MD Primary Care Provider [phone] Encounter Details Date Type Department Care Team (Late st Contact Info) Description 06/01/2015 11:43 AM EDT Anesthesia Event [place] [phone] Lazaro Sadler MD Srivastava, Ankur, MD Anesthesia Record Procedure Summary Procedure Name [...] 0900; metacarpal vein left (top of hand); hicw-ucd-vbwvjh catheter system; 18 gauge; Kristal Barajas RN; distraction, intradermal injection, tolerated well, appears comfortable, age-appropriate response; 06/01/15; 1556 04/05/15 0900 by Kristal Barajas RN 06/01/15 1556 by Nunu Walsh RN (RETIRED) Peripheral IV Line - Single Lumen 04/05/15; 0950; median vein right (underside of arm); 20 gauge; 06/01/15; 1556 04/05/15 0950 by Tammy Arias DOOR TECHNICIAN 06/01/15 1556 by Nunu Walsh RN Urethral Catheter 06/01/15; Urologic surgery; Physician order; [...] 1134; metacarpal vein left (top of hand); hnxu-squ-aadqlr catheter system; 18 gauge, 1 in length; [...] 06/01/15 1225 by 06/01/15 1556 by Nunu Walsh, NIMCO Nephrostomy Tube 06/01/15; 1403; righ t flank; drainage bag to dependent drainage; 24 Fr. Colleen cath., inserted and then removed; 06/01/15; 1408 06/01/15 1403 by Kirill Viramontes, NIMCO 06/01/15 1408 by Kirill Viramontes, RN documented [...] Notes * Anesthesia Postprocedure Evaluation - Rainer Yi MD - 06/01/2015 2:43 PM EDT Patient: [...] BIOPSY performed by Brandt Barlow MD at [facility] ENDOSCOPY ??? Lap, esophagogast fundoplasty N/A 04/05/2015 LAPAROSCOPIC TYESHA FUNDOPLASTY performed by Valentín Moura MD at [facility] MAIN OR ??? N/A 04/05/2015 MODIFIER, HIATAL HERNIA performed by Valentín Moura MD at [facility] MAIN OR History Substance Use Topics ??? [...] breath sounds clear to auscultation Dental Assessment: [facility] Assessment: IV access: Peripheral line Anesthesia Plan: [...] patient and spouse. Plan discussed with attending. [facility]. Assessment: documented in this encounter Plan of Treatment Upcoming Encounters Date Type Department Care Team (Late st Contact Info) Description 11/26/2024 8:45 AM EST [place] [phone] Keri Avila [address] [place] [address] 12/31/2024 10:00 AM EST Office [place] [phone] Mercy Amanda MD [facility] DR [facility] [address] 04/01/2025 2:00 PM EDT Office [place] [phone] Erum Szymanski MD [facility] [place] [address] documented as of this encounter Visit Diagnoses Not on filedocumented in this encounter Administered Medications Inactive Administered Medications - up to 3 most recent administrations Medication Order MAR Action Action Date Dose Rate Site ampicillin 1g vial attach to sodium chloride 0.9% 100 mL Mini-Bag Plus 1,000 mg (1 g), Intravenous, BULL FLOAT FINISHER TO O.R., 1 dose, On Sun06/01/15 at [...] chloride 0.9% 106.525 mL 261 mg, Intravenous, BULL FLOAT FINISHER TO O.R., 1 dose, On Sun06/01/15 at [...] mg documented in this encounter Care Teams Medicaid Collection Specialist Relationship Specialty Start Date End Date Latanya Wade MD [facility] [address] [place] [address] [place] [address] PCP - General 08/27/13 11/01/15 documented as of this encounter
--- OUTSIDE RECORDS SUMMARY | 2024-10-25 13:30 | XMS_ITS | Encounter Summary ---
[place] [address] Care Team Providers Care Pipe Buffer Name Role Phone Latanya Wade MD Primary Care Provider [phone] Reason for Visit * Reason Onset Date Comments Medication Refill 02/22/2015 Pantoprazole Encounter Details Date Type Department Care Team (Late st Contact Info) Description 02/22/2015 Ref[place] [phone] Estrella Lim MA Rodgers's esophagus with esophagitis Social History Tobacco [...] 11/26/2024 8:45 AM EST [place] [phone] Keri Avila [address] [place] [address] 12/31/2024 10:00 AM EST Office [place] [address] Mercy Amanda MD [facility] [place] [address] 04/01/2025 2:00 PM EDT Office [place] [phone] Erum Szymanski MD [facility] [place] [address] documented as of this encounter Visit Diagnoses Diagnosis Rodgers's esophagus with esophagitis Rodgers's esophagus documented in this encounter Care Teams Pipe Buffer Relationship Specialty Start Date End Date Latanya Wade MD [facility] [address] [place] [address] [place] [address] PCP - General 08/27/13 11/01/15 documented as of this encounter
--- OUTSIDE RECORDS SUMMARY | 2024-10-25 13:31 | XMS_ITS | Encounter Summary ---
Author Organization [facility] Address [address] [place] [address] Care Team Providers Care Neurology Hospitalist Name Role Phone Unavailable Primary Care Provider Unavailabl e Encounter Details Date Type Department Care Team (Late st Contact Info) Description 01/11/2004 Results Only [facility] [address] [place] [address] Amanda Damian CNM [address] [place], [place] [phone] Social History Tobacco Use Types Packs/Day Years [...] ? VIANNEY SAINI ? Accession #: ? [id number] : ? 1975 (Age: 28) ??F ?Collect [...] Final Resul t [facility] [address] [place] [address] documented in this encounter Visit Diagnoses Not on filedocumented in this encounter
--- OUTSIDE RECORDS SUMMARY | 2024-10-25 13:31 | XMS_ITS | Encounter Summary ---
Author Organization [facility] Address [address] [place] [address] Care Team Providers Care Assistant Public Defender Name Role Phone Unavailable Primary Care Provider Unavailabl e Encounter Details Date Type Department Care Team (Late st Contact Info) Description 11/27/2003 Results Only [facility] conversion [address] [place] [address] Valentín Alex MD [address] [place], [place] [phone] Social History Tobacco Use Types Packs/Day Years [...] when reading/interpreti ng unformatted reports. Name: ? PARVEENEMIL ? Accession #: ? [id number] ? : ? 1975 (Age: 28) ??F [...] with a diameter of 0.4 cm. ??Two senior patient account representative sections are submitted as (B). ??(Dr. Monroy)/[facility] End of Report [facility] 11/27/2003 11/27/2003 15: 21 EST us Valentín Alex MD PATHOLOGY ORDERABLES Final Resul t [facility] [address] [place] [address] documented in this encounter Visit Diagnoses Not on filedocumented in this encounter
--- OUTSIDE RECORDS SUMMARY | 2024-10-25 13:31 | XMS_ITS | Encounter Summary ---
Author Organization [facility] Address [address] [place] [address] Care Team Providers Care Account Service Associate Name Role Phone Unknown, Provider MD Primary Care Provider Unava ilable Unknown, Provider MD Unavailable Unavailable Encounter Details Date Type Department Care Team (Latest Contact Info) Description 12/05/2022 Lab Requisition [facility] Pathology & Laboratory Medicine - [facility] [address] [place] [address] Sonido Cordoba PA-C [address] [place] [phone] Encounter for gynecological examination (general) (routine) without [...] Risk types, PCR Negative Negative 12/12/2022 14:42 [facility] Comment:No E6 or E7 mRNA is detected from HPV types 16,18,31,33,35,39,45,51,52,56,58,59,66, and 68 by mechanical pencils assembler mediated amplification. Papanicolaou smear specimen (specimen) CERVIX UTERI STRUCTURE / Unknown 12/01/2022 11:00 EST 12/11/2022 13:26 EST us Sonido Cordoba PA-C MICROBIOLOGY - GENERAL O RDERABLES Final Result [facility] [address] [place] [address] * PAP TEST (12/01/2022 11:00 EST) Specimens A. Cervix and/or Endocervix , ThinPrep Imaging System with Manual Evaluation 12/12/2022 14:42 [facility] Specimen Adequacy Satisfactory for Evaluation - transformation zone component absent 12/12/2022 14:42 [facility] General Categorization Negative for intraepithelial lesion or malignancy 12/12/2022 14:42 [facility] Attestation . 12/12/2022 14:42 [facility] at 1442 Clinical History SEE BELOW 12/12/19 23 14:42 [facility] HPV The result for the Human Papillomavirus (HPV) Detection-High Risk Types is Negative. No E6 or E7 mRNA is detected from HPV types 16,18,31,33,35,39 ,45,51,52,56,58,5 9,66, and 68 by mechanical pencils assembler mediated amplification.Penny ting was performed on specimen [id number] and was resulted on 12/12/2022 1442 EST by DOROTHY, LAB INSTRUMENT RESULTS IN 12/12/2022 14:42 [facility] Performing Lab [facility] 12/12/2022 14:42 [facility] Scanned Images 12/12/2022 14:42 [facility] Papanicolaou smear specimen (specimen) CERVIX UTERI STRUCTURE / Unknown 12/01/2022 11:00 EST 12/05/2022 9:23 EST us Sonido Cordoba PA-C PATHOLOGY ORDERABLES Fin al Result Performing Organization Address City/State/[facility] Co de Phone Number [facility] [address] [place] [address] documented in this encounter Visit Diagnoses Diagnosis Encounter for gynecological examination (general) (routine) without abnormal findings documented in this encounter Care Teams Account Service Associate Relationship Specialty Start Date End Date Unknown, ProviderMD PCP - General 08/22/17 Unknown, ProviderMD 08/22/17 documented as of this encounter
--- OUTSIDE RECORDS SUMMARY | 2024-10-25 13:31 | XMS_ITS | Encounter Summary ---
Author Organization [facility] Address [address] [place] [address] Care Team Providers Care Bit Setter Name Role Phone Unavailable Primary Care Provider Unavailabl e Encounter Details Date Type Department Care Team (Late st Contact Info) Description 05/31/2010 Results Only [facility] Laboratory Services - [facility] [address] [place] [address] [phone] [address] Wade [address] [facility] [address] [place], [place] [phone] Social History Tobacco Use Types Packs/Day Years [...] ORDERABLE S Final Result [facility] [address] [place] [address] * CYTOPATHOLOGY (05/31/2010 0:00 EDT) Pathology Report: CYTOPATHOLOGY REPORT ? Reports generated via electronic interface contain original data; ? however they are lacking the format of the original report. ? Caution should be taken when reading/interpreti ng unformatted reports. ? Name: ? VIANNEY SAINI ? Accession #: ? [id number] ? : ? 1975 (Age: 34) ??F [...] ORDERABLES Final Resul t Performing Organization Address City/State/[facility] Co de Phone Number [facility] [address] [place] [address] documented in this encounter Visit Diagnoses Not on filedocumented in this encounter
--- OUTSIDE RECORDS SUMMARY | 2024-10-25 13:31 | XMS_ITS | Encounter Summary ---
Author Organization [facility] Address [address] [place] [address] Care Team Providers Care Embedded Linux Engineer Name Role Phone Unknown, Provider MD Primary Care Provider Unava ilable Unknown, Provider MD Unavailable Unavailable Encounter Details Date Type Department Care Team (Late st Contact Info) Description 10/22/2021 Lab Requisition [facility] Pathology & Laboratory Medicine - [facility] [address] [place] [address] Outr Resulting Lab, Provider Social [...] Result [facility] [address] [place] [address] documented in this encounter Visit Diagnoses Not on filedocumented in this encounter Care Teams Embedded Linux Engineer Relationship Specialty Start Date End Date Unknown, Provider, PCP - General 08/22/17 Unknown, ProviderMD 08/22/17 documented as of this encounter
--- OUTSIDE RECORDS SUMMARY | 2024-10-25 13:31 | XMS_ITS | Encounter Summary ---
[place] [address] Care Team Providers Care Hand Bender Name Role Phone Latanya Wade MD Primary Care Provider [phone] Encounter Details Date Type Department Care Team (Latest Contact Info) Description 01/27/2015 10:21 AM EDT - 01/27/2015 2:05 PM EDT Hospital Encounter [place] [address] Darell Estrada MD Discharge Disposition: Home Social History Tobacco [...] Everywhere. * EGD (UPPER ENDOSCOPY) : POST-OP (SINHALA) documented in this encounter Medications at Time [...] ABREU : 1975 Age: 39 y.o. Address: [address] [address] (home) Mobile: No relevant phone numbers on file. Referring Provider: Latanya Lee Procedure: EGD - dyspepsia Allergies: Allergies Allergen [...] AM EST App[place] [phone] [address]eri Avila [address] [address] 12/31/2024 10:00 AM EST Office [place] [address] Mercy Amanda MD [facility] [address] [facility] [address] 04/01/2025 2:00 PM EDT Office [place] [address] Erum Szymanski MD [facility] [place] [address] documented as of this encounter Procedures Procedure [...] (01/27/2015 1:02 PM EDT) Final Diagnosis ? [facility] ? Provider: ?? DARELL ESTRADA ? Pt. Name: ?? VIANNEY ABREU ? Acc #: ?[id number] ?Pt. ? Col Date: ?? 01/27/2015 ? [...] cm;? Rodgers's 01/28/2015 9:48 AM EDT [facility] GI Biopsy 01/27/2015 1:02 PM EDT 01/27/2015 1:02 PM EDT Darell Estrada MD PATHOLOGY/CYTOLOGY O ZHANNA Performing Organization Address [facility] Co de Phone Number [facility] [place] [phone] * Specimen to Pathology (surgical or derm) (01/27/2015 1:02 PM EDT) AP Specimen 01/27/2015 1:02 PM EDT 01/27/2015 1:02 PM EDT Narrative MELISSA CURTIS - 01/27/2015 1:02 PM EDT Specimen requisition ordered. ??Separate Pathology report to follow Darell Estrada MD PATHOLOGY/CYTOLOGY O ZHANNA Performing Organization Address [facility] Co de Phone Number [facility] * UPPER GI ENDOSCOPY (01/27/2015 12:39 PM EDT) UPPER GI ENDOSCOPY [facility] Endoscopy Patient Name: Vianney Abreu ? Procedure Date: 01/27/2015 12:39 PM ? Date of : 1975 ? Age: 39 ? Order #: [id number] ? Procedure: ? Upper GI endoscopy Indications: ? Dyspepsia, Nausea with vomiting Providers: ? Darell Estrada MD, Tyler Brito RN, ? Su Daniels, Supervisor [employer] Referring MD: ?Latanya Wade MD Medicines: ? Midazolam 3 [...] Procedure Code(s): ?? --- Professional --- ? 03896, Esophagogastroduod enoscopy, ? flexible, transoral; with biopsy, ? single or multiple CPT copyright 2014 [employer]. All rights reserved. The codes documented in this report are preliminary and upon food mixer repairer review may be revised to meet current [...] RN)1252 (Given - Provider: Tyler Brito RN) midazolam (PF) (VERSED) 1 mg/mL multi-dose injection (CANCELED) ONCE PRN, Starting on Sun01/27/15 at 1246, Until Sun01/27/15 at 1401, Intra-Operative (Intra-Procedure), Routine 1246 (Given - Provid er: Tyler Brito RN)1249 (Given - Provider: Tyler Brito RN)1252 (Given - Provider: Tyler Brito RN) documented in this encounter Care Teams Hand Bender Relationship Specialty Start Date End Date Latanya Wade MD HOSPITALIST SERVICES [address] [place] [address] [address] [facility] [address] PCP - General 08/27/13 11/01/15 documented as of this encounter
--- OUTSIDE RECORDS SUMMARY | 2024-10-25 13:31 | XMS_ITS | Encounter Summary ---
[place] [address] Care Team Providers Care Gear Hobber Name Role Phone Latanya Wade MD Primary Care Provider [phone] Encounter Details Date Type Department Care Team (Late st Contact Info) Description 01/27/2015 12:00 PM EDT - 01/27/2015 12:30 PM EDT [place] [phone] Darell Estrada MD EGD WITH BIOPSY (WRVU 2.39) Social [...] Everywhere. * EGD (UPPER ENDOSCOPY) : POST-OP (NEPALI) documented in this encounter Medications at Time [...] ABREU : 1975 Age: 39 y.o. Address: [address] [address] (home) Mobile: No relevant phone numbers on [...] 11/26/2024 8:45 AM [place] [phone] Keri Avila [address] [address] 12/31/2024 10:00 AM EST Office [place] [phone] Mercy Amanda MD [facility] [address] [place] [address] 04/01/2025 2:00 PM EDT Office [place] [phone] Erum Szymanski MD [facility] [place] [address] documented as of this encounter Procedures Procedure [...] (01/27/2015 1:02 PM EDT) Final Diagnosis ? [facility] ? Provider: ?? DARELL ESTRADA ? Pt. Name: ?? VIANNEY ABREU ? Acc #: ?[id number] ?Pt. ? Col Date: ?? 01/27/2015 ? [...] 28 cm;? Rodgers's 01/28/2015 9:48 AM EDT [facility] GI Biopsy 01/27/2015 1:02 PM EDT 01/27/2015 1:02 PM EDT Darell Estrada MD PATHOLOGY/CYTOLOGY O ZHANNA Performing Organization Address [facility] de Phone Number [facility] [place] [address] * Specimen to Pathology (surgical or derm) (01/27/2015 1:02 PM EDT) AP Specimen 01/27/2015 1:02 PM EDT 01/27/2015 1:02 PM EDT Narrative [facility] - 01/27/2015 1:02 PM EDT Specimen requisition ordered. ??Separate Pathology report to follow Darell Estrada MD PATHOLOGY/CYTOLOGY O ZHANNA Performing Organization Address [facility] Co de Phone Number [facility] * UPPER GI ENDOSCOPY (01/27/2015 12:39 PM EDT) [facility] Patient Name: Vianney Abreu ? Procedure Date: 01/27/2015 12:39 PM ? Date of : 1975 ? Age: 39 ? Order #: [id number] ? Procedure: ? Upper GI endoscopy Indications: ? Dyspepsia, Nausea with vomiting Providers: ? Darell Estrada MD, Tyler Brito RN, ? Su Daniels, Backup Administrative Coordinator Referring MD: ?Latanya Wade MD Medicines: ? [...] Procedure Code(s): ?? --- Professional --- ? 71318, Esophagogastroduod enoscopy, ? flexible, transoral; with biopsy, ? single or multiple CPT copyright 2014 [employer]. All rights reserved. The codes documented in this report are preliminary and upon computer language coder review may be revised to meet [...] RN) documented in this encounter Care Teams Gear Hobber Relationship Specialty Start Date End Date Latanya Wade MD HOSPITALIST SERVICES [address] [place] [address] [place] [address] PCP - General 08/27/13 11/01/15 documented as of this encounter
--- OUTSIDE RECORDS SUMMARY | 2024-10-25 13:31 | XMS_ITS | Clinical Summary ---
Author Organization [facility] Address [address] [place] [address] Care Team Providers Care Chemical Applicator Name Role Phone Unknown, Provider MD Primary [...] 2024 Insurance MEDICAID [place] Care Teams Chemical Applicator Relationship Specialty Start Date End Date Unknown, MD Tito PCP - General 08/22/17 Unknown, MD Tito 08/22/17
--- OUTSIDE RECORDS SUMMARY | 2024-10-25 13:31 | XMS_ITS | Encounter Summary ---
[place] [address] Care Team Providers Care Resource Protection Specialist Name Role Phone Latanya Wade MD Primary Care Provider [phone] Reason for Visit * Reason Comments Gastroesophageal Reflux Encounter Details Date Type Department Care Team (Late st Contact Info) Description 12/28/2014 2:05 PM EST Office [place] [phone] Parisa Andrews APRN Dyspepsia Discharge Disposition: Home Social History Tobacco [...] Follow up 3 months Parisa Andrews APRN [phone] documented in this encounter Progress Notes * [...] Andrews APRN Section of Gastroenterology [place] [address] documented in this encounter Plan of Treatment Upcoming Encounters Date Type Department Care Team (Late st Contact Info) Description 11/26/2024 8:45 AM EST Appointment [place] [phone] Keri Avila [address] [place] [address] 12/31/2024 10:00 AM EST Office [place] [phone] Mercy Amanda MD [facility] [address] SAL [facility] [address] 04/01/2025 2:00 PM EDT Office [place] [phone] Erum Szymanski MD [facility] DR [place]STR[place] [address] Scheduled Orders Name Type Priority Associated Diagnoses [...] ? pm) Patient Info ID #: ? [id number] ?: ??[birth year] (39 yrs) Name: ? VIANNEY Chao ? Visit Date: 01/27/2015 09:56 am ? LOIS Performed By Performed By: ?Simi Lopez RDMS Attending: ? Berkley Medina MD Referred By: ? PARISA ANDREWS MANAGER PRODUCT DESIGN Service(s) Provided ??UABDLIM - Abdominal Limited Survey Single ? 13435 ??Organ or Quadrant - [id number] Indications ??Epigastric pain. ?gallbladder disease or ??cholelithiasis. [...] 01/27/2015 12:52 pm) Patient Info ID #: [id number] : [birth year] (39 yrs) Name: VIANNEY Chao Visit Date: 01/27/2015 09:56 am ABREU Performed By Performed By: Simi Lopez RDMS Attending: Berkley Medina MD Referred By: PARISA ANDREWS APRN Service(s) Provided UABDLIM - Abdominal Limited Survey Single 88156 Organ or Quadrant - [id number] Indications Epigastric pain. ?gallbladder disease or cholelithiasis. [...] MD HEMATOLOGY ORDERABLE S Performing Organization Address [facility] Phone Number [facility] * TSH (12/28/2014 3:19 PM EST) Pathologist [facility] Thyroid Stimulating Hormone 1.81 0.27 - 4.20 mcIU/mL [facility] Blood specimen (specimen) 12/28/2014 3:19 PM EST 12/28/2014 3:32 PM EST Narrative Resulting Agency Comment Spec In Lab Brandt Barlow MD CHEMISTRY ORDERABLES Performing Organization Address [facility] Phone Number [facility] * (ABNORMAL) Comprehensive metabolic panel (non-fasting) (12/28/2014 3:19 PM EST) [facility] Glucose 91 60 - 199 mg/dL [facility] Comment:Diabetes: >=200 mg/d L plus symptoms Blood Urea Nitrogen 13 8 - 18 mg/dL [facility] Creatinine 0.74 0.70 - 1.20 mg/dL [facility] Comment: Please note that the pediatric reference intervals supplied above were not validated at [facility]. Results from pediatric patients should be interpreted in conjunction to the patient's age, height and muscle mass. Sodium 139 135 - 145 mmol/L [facility] Potassium 4.4 3.5 - 5.0 mmol/L [facility] Comment: [...] the following links into your internet browser. [email or web address]-[email or web address] [email or web address]-[email or web address] Blood specimen (specimen) 12/28/2014 3:19 PM EST 12/28/2014 3:32 PM EST Narrative Resulting Agency Comment Spec In Lab Brandt Barlow MD CHEMISTRY ORDERABLES [facility] documented in this encounter Visit Diagnoses Diagnosis Dyspepsia Dyspepsia and other specified disorders of function of stomach Dyspepsia Dyspepsia and other specified disorders of function of stomach documented in this encounter Care Teams Resource Protection Specialist Relationship Specialty Start Date End Date Latanya Wade MD [facility] [address] [place] [address] [place] [address] PCP - General 08/27/13 11/01/15 documented as of this encounter
--- OUTSIDE RECORDS SUMMARY | 2024-10-25 13:31 | XMS_ITS | Encounter Summary ---
Author Organization [facility] Address [address] [place] [address] Care Team Providers Care Special Police Name Role Phone Unavailable Primary Care Provider Unavailabl e Encounter Details Date Type Department Care Team (Late st Contact Info) Description 08/27/2001 Results Only [facility] conversion [address] [place] [address] Gracy Moy, [facility] [address] [place] [address] [place] [address] Social History Tobacco Use Types [...] ? SON VIANNEY ? Accession #: ? [id number] : ? 1975 (Age: 25) ??F ?Collect Date: ? 08/27/2001 Location: ? [facility] ? Receive Date: ? 08/29/2001 Provider: ?GRACY MOY GASTROINTESTINAL TECHNICIAN Copy to: ? Specimen/Source: ?ThinPrep Pap Test, [...] NEHEMIAS ROSADO 08/27/2001 08/29/2001 us Gracy Moy GASTROINTESTINAL TECHNICIAN PATHOLOGY ORDERABLES Final R esult [facility] [address] [place] [address] documented in this encounter Visit Diagnoses Not on filedocumented in this encounter
--- OUTSIDE RECORDS SUMMARY | 2024-10-25 13:31 | XMS_ITS | Encounter Summary ---
[place] [address] Care Team Providers Care House Principal Name Role Phone Latanya Wade MD Primary Care Provider [phone] Encounter Details Date Type Department Care Team (Latest Contact Info) Description 01/27/2015 9:22 AM EDT - 01/27/2015 11:59 PM EDT Hospital [place] [address] CLINIC, Brandt Harris MD Dyspepsia Discharge Disposition: Home Social History Tobacco [...] 11/26/2024 8:45 AM EST [place] [address] Keri Avila [address] [place] [address] 12/31/2024 10:00 AM EST Office [place] [address] Mercy Amanda MD [facility] [address] SAL [facility]OR[facility]-[place] [address] 04/01/2025 2:00 PM EDT Office [place] [address] Erum Szymanski MD [facility] [place] [address] documented as of this encounter Procedures Procedure Name Priority Date/Time Associated Diagnosis Comments US ABDOMEN LIMITED Routine 01/27/2015 9: 59 AM EDT Dyspepsia documented in this encounter Results * US abdomen limited (01/27/2015 9:59 AM EDT) Anatomical Region Laterality Modality Abdomen Ultrasound 01/27/2015 9:59 AM EDT Narrative 01/27/2015 12:52 PM EDT Abdominal ?(Signed Final 01/27/2015 12:52 ? pm) Patient Info ID #: ? [id number] ?: ??[birth year] (39 yrs) Name: ? EMIL Chao ? Visit Date: 01/27/2015 09:56 am ? ABREU Performed By Performed By: ?Simi Lopez RDMS Attending: ? Carol RIVAS, Berkley Stark Referred By: ? PARISA ANDREWS MOTORCYCLE ENGINE ASSEMBLER Service(s) Provided ??UABDLIM - Abdominal Limited Survey Single ? 14499 ??Organ or Quadrant - [id number] Indications ??Epigastric pain. ?gallbladder disease or ??cholelithiasis. [...] 01/27/2015 12:52 pm) Patient Info ID #: [id number] : [birth year] (39 yrs) Name: EMIL Chao Visit Date: 01/27/2015 09:56 am ABREU Performed By Performed By: Simi Lopez RDMS Attending: Berkley Medina MD Referred By: PARISA ANDREWS APRN Service(s) Provided UABDLIM - Abdominal Limited Survey Single 40880 Organ or Quadrant - [id number] Indications Epigastric pain. ?gallbladder disease or cholelithiasis. [...] stomach documented in this encounter Care Teams House Principal Relationship Specialty Start Date End Date Latanya Wade MD [facility] [address] [place] [address] [place] [address] PCP - General 08/27/13 11/01/15 documented as of this encounter
--- OUTSIDE RECORDS SUMMARY | 2024-10-25 13:31 | XMS_ITS | Encounter Summary ---
Author Organization [facility] [place] [address] Care Team Providers Care Bottomer Operator Name Role Phone Latanya Wade MD Primary Care Provider [phone] Reason for Referral * Surgical (Routine) - Closed Specialty Diagnoses / Procedures Referred By Aric madrigal Referred To Contact General Surgery Diagnoses Hiatal hernia Rodgers's esophagus with esophagitis Demi Gage APRN [facility] [place] [address] [facility] [address] [place] [address] Referral ID Status Reason Start Date Expiration Date V isits Requested Visits Authorized [id number] Closed Consult, Test & Treat 01/28/2015 01/28/2016 3 3 Encounter Details Date Type Department Care Team (Late st Contact Info) Description 01/28/2015 Telephone [place] [address] Demi Gage APRN Social History [...] 11/26/2024 8:45 AM EST [place] [phone] Keri Avila [address] [place] [address] 12/31/2024 10:00 AM EST Office [place] [phone] Mercy Amanda MD [facility] DR SAL MORALE[facility]-[place] [address] 04/01/2025 2:00 PM EDT Office [place] [phone] Erum Szymanski MD [facility] [place] [address] Scheduled Referrals Name Type Priority Associated Diagnoses [...] gangrene documented in this encounter Care Teams Bottomer Operator Relationship Specialty Start Date End Date Latanya Wade MD [facility] [address] [place] [address] [place] [address] PCP - General 08/27/13 11/01/15 documented as of this encounter
--- OUTSIDE RECORDS SUMMARY | 2024-10-25 13:31 | XMS_ITS | Encounter Summary ---
[place] [address] Care Team Providers Care Grain Commodity Manager Name Role Phone Latanya Wade MD Primary Care Provider [phone] Reason for Visit * Reason Comments Right Elbow Pain Encounter Details Date Type Department Care Team (Late st Contact Info) Description 08/27/2013 10:15 AM EDT Office [place] [phone] Pop Burks MD Elbow pain (Primary Dx) Discharge Disposition: Home [...] a tonsillectomy. SOCIAL HISTORY: She lives in [place] with her significant other who accompanies her [...] and she is going to use this [id number] for the next two weeks with something [...] 11/26/2024 8:45 AM EST [place]oint[place] [address] Keri Avila [address] [place] [address] 12/31/2024 10:00 AM EST Office [place] [address] Mercy Amanda MD [facility] DR SAL [facility] [address] 04/01/2025 2:00 PM EDT Office [place] [address] Erum Szymanski MD [facility] [place] [address] documented as of this encounter Procedures Procedure [...] Spec In Lab Pop Burks MD IMMUNOLOGY [place] [facility] * (ABNORMAL) Lyme IgG & IgM Antibody (08/27/2013 11:38 AM EDT) Lyme Antibody Pos(A) Neg [facility] Blood specimen (specimen) 08/27/2013 11:38 AM EDT 08/28/2013 7:07 AM EDT Narrative Resulting Agency Comment Spec In Lab Pop Burks MD IMMUNOLOGY ORDERA BLES Performing Organization Address [facility] de Phone Number [facility] * High Sensitivity CRP (08/27/2013 11:38 AM EDT) C-Reactive Protein High Sensitivity 5.6 mg/L [facility] Comment: Interpretations: 1) For accurate cardiac risk [...] and Cardiovascular Disease. ??Circulation 2003; 107:499-511 2. Ridker PM. ??Clinical applications of C-reactive protein for cardiovascular disease detection and prevention. ??Circulation 2003; 107:363-369 Blood specimen (specimen) 08/27/2013 11:38 AM EDT 08/27/2013 11:50 AM EDT Narrative Resulting Agency Comment Spec In Lab Pop Burks MD CHEMISTRY ORDERAB LES Performing Organization Address [facility] Phone Number [facility] [employer] * Sedimentation rate (08/27/2013 11:38 AM EDT) Sedimentation Rate Automated 10 0 - 20 mm/hr [facility] Blood specimen (specimen) 08/27/2013 11:38 AM EDT 08/27/2013 11:50 AM EDT Narrative Resulting Agency Comment Spec In Lab Pop Burks MD HEMATOLOGY ORDERA BLES Performing Organization Address [facility] de Phone [facility] documented in this encounter Visit Diagnoses Diagnosis Elbow pain- Primary Pain in joint, upper arm documented in this encounter Care Teams Grain Commodity Manager Relationship Specialty Start Date End Date Latanya Wade MD [facility]OSP[facility] [address] [place] [address] [place] [address] PCP - General 08/27/13 11/01/15 documented as of this encounter
--- OUTSIDE RECORDS SUMMARY | 2024-10-25 13:31 | XMS_ITS | Encounter Summary ---
Author Organization [facility] Address [address] [place] [address] Care Team Providers Care Paper Final Inspector Name Role Phone Unavailable Primary Care Provider Unavailabl e Encounter Details Date Type Department Care Team (Late st Contact Info) Description 06/27/2000 Results Only [facility] conversion [address] [place] [address] Gracy Moy, [facility] [address] [place] [address] [place] [address] Social History Tobacco Use Types [...] ? SON VIANNEY ? Accession #: ? [id number] : ? 1975 (Age: 24) ??F ?Collect Date: ? 06/27/2000 Location: ? [facility] ? Receive Date: ? 07/02/2000 Provider: ?GRACY MOY HEAD ATHLETIC TRAINER/STRENGTH COACH Copy to: ? Specimen/Source: ?ThinPrep Pap Test, Cervix/Endocervix Last Menstrual Period: ? 05/08/00 Hormonal/Contracep tive Status: ? Depo-Provera ? SPECIMEN ADEQUACY ? Satisfactory for evaluation. GENERAL CATEGORIZATION ? Within Normal Limits ? Document reviewed and electronically signed by: ? CLAYTON De La O(ASCP) ? Report Date: ??07/02/2000 13:55 End of Report NEHEMIAS ROSADO 06/27/2000 07/02/2000 us Gracy Moy HEAD ATHLETIC TRAINER/STRENGTH COACH PATHOLOGY ORDERABLES Final R esult NEHEMIAS ROSADO [address] [place] [address] documented in this encounter Visit Diagnoses Not on filedocumented in this encounter
--- OUTSIDE RECORDS SUMMARY | 2024-10-25 13:31 | XMS_ITS | Encounter Summary ---
Author Organization [facility] Address [address] [place] [address] Care Team Providers Care Leather Finisher Name Role Phone Unavailable Primary Care Provider Unavailabl e Encounter Details Date Type Department Care Team (Late st Contact Info) Description 02/22/2005 Results Only [facility] conversion [address] [place] [address] Gracy Moy, [facility] [address] [place] [address] [place] [address] Social History Tobacco Use Types [...] ? SON EMIL ? Accession #: ? [id number] : ? 1975 (Age: 29) ??F ?Collect Date: ? 02/22/2005 Location: ? [facility] ? Receive Date: ? 02/23/2005 Provider: ?GRACY MOY CORPORATE RELATIONS DIRECTOR Copy to: ? Specimen/Source: ?ThinPrep Pap Test, [...] NEHEMIAS ROSADO 02/22/2005 02/23/2005 us Gracy Moy CORPORATE RELATIONS DIRECTOR PATHOLOGY ORDERABLES Final R esult NEHEMIAS ROSADO [address] [place] [address] documented in this encounter Visit Diagnoses Not on filedocumented in this encounter
--- OUTSIDE RECORDS SUMMARY | 2024-10-25 13:31 | XMS_ITS | Encounter Summary ---
Author Organization [facility] Address [address] [place] [address] Care Team Providers Care Supervisor Electronic Testing Name Role Phone Unavailable Primary Care Provider Unavailabl e Encounter Details Date Type Department Care Team (Late st Contact Info) Description 09/17/2002 Results Only [facility] conversion [address] [place] [address] Gracy Moy, [facility] [address] [place] [address] [place] [address] Social History Tobacco Use Types [...] Name: ? SONVIANNEY ? Accession #: ? [id number] : ? 1975 (Age: 26) ??F ?Collect Date: ? 09/17/2002 Location: ? [facility] ? Receive Date: ? 09/19/2002 Provider: ?GRACY MOY SUPERVISOR ELECTRONIC TESTING Copy to: ? Specimen/Source: ?ThinPrep Pap Test, Cervix/Endocervix Last Menstrual Period: ? 09/08/02 ? SPECIMEN ADEQUACY ? Satisfactory for Evaluation - transformation zone component present GENERAL CATEGORIZATION ? Negative for Intraepithelial Lesion or Malignancy ? Document reviewed and electronically signed by: ? Smitha Dawn, CT(ASCP) ? Report Date: ??09/24/2002 13:11 End of Report NEHEMIAS ROSADO 09/17/2002 09/19/2002 us Gracy Moy SUPERVISOR ELECTRONIC TESTING PATHOLOGY ORDERABLES Final R esult NEHEMIAS ROSADO [address] [place] [address] documented in this encounter Visit Diagnoses Not on filedocumented in this encounter
--- OUTSIDE RECORDS SUMMARY | 2024-10-25 13:31 | XMS_ITS | Encounter Summary ---
Author Organization [facility] Address [address] [place] [address] Care Team Providers Care Gold Nib Grinder Name Role Phone Unavailable Primary Care Provider Unavailabl e Encounter Details Date Type Department Care Team (Latest Contact Info) Description 06/10/2003 15:45 EDT Hospital Encounter [facility] - Other [address] [place] [address] [place] [address] Discharge Disposition: Auto Discharge Social History Tobacco [...]
--- OUTSIDE RECORDS SUMMARY | 2024-10-25 13:31 | XMS_ITS | Encounter Summary ---
Author Organization [facility] Address [address] [place] [address] Care Team Providers Care Chiropractic Teacher Name Role Phone Unavailable Primary Care Provider Unavailabl e Encounter Details Date Type Department Care Team ([facility] st Contact Info) Description 10/23/2012 Results Only [facility] [phone] Lilian Newberry MD [address] [place] [employer], [place] [phone] Social History Tobacco Use Types Packs/Day Years [...] ? SON EMIL ? Accession #: ? [id number] ? : ? 1975 (Age: 37) ??F [...] types 16,18,31,33,35, 39,45,51,52,56,58, 59,66, and 68 by post anesthesia care unit nurse mediated amplification. Comments Document reviewed and electronically [...] ORDERABLES Final Resul t Performing Organization Address City/State/[facility] Co de Phone Number [facility] [address] [place] [address] documented in this encounter Visit Diagnoses Not on filedocumented in this encounter
--- OUTSIDE RECORDS SUMMARY | 2024-10-25 13:31 | XMS_ITS | Encounter Summary ---
Author Organization [facility] Address [address] [place] [address] Care Team Providers Care Division Plant Engineer Name Role Phone Unknown, Provider MD Primary Care Provider Unava ilable Unknown, Provider MD Unavailable Unavailable Encounter Details Date Type Department Care Team (Late st Contact Info) Description 12/06/2021 Lab Requisition [facility] Pathology & [place] [address] Outr Resulting Lab, Provider Social History Tobacco [...] MICROBIOLOGY - GENER AL ORDERABLES Final Result [facility] [address] [place] [address] * COVID-19 TESTING (12/06/2021 10:00 EST) COVID-19 rt-PCR Result Negative Negative 12/07/2021 14:27 EST [facility] Comment: This test has not [...] was performed using the petar SARS-CoV-2 assay ([employer] on the Petar 6800 System Performing Lab Petar [address] [facility] Lab 12/07/2021 14:27 EST [facility] Swab 12/06/2021 10:0 0 EST 12/06/2021 22:35 EST us Provider Outr Resulting Lab MICROBIOLOGY - GENER AL ORDERABLES Final Result Performing Organization Address City/State/[facility] Co de Phone Number [facility] [address] [place] [address] documented in this encounter Visit Diagnoses Not on filedocumented in this encounter Care Teams Division Plant Engineer Relationship Specialty Start Date End Date Unknown, Provider, PCP - General 08/22/17 Unknown, ProviderMD 08/22/17 documented as of this encounter
--- OUTSIDE RECORDS SUMMARY | 2024-10-25 13:31 | XMS_ITS | Encounter Summary ---
Author Organization [facility] Address [address] [place] [address] Care Team Providers Care Building Cleaning Supervisor Name Role Phone Unknown, Provider MD Primary Care Provider Unava ilable Unknown, Provider MD Unavailable Unavailable Encounter Details Date Type Department Care Team (Late st Contact Info) Description 12/19/2019 Lab Requisition [facility] Pathology & Laboratory Medicine - [address] [address] Erasmo Portillo PA-C [address] [place] [address] Encounter for other general examination [...] Melanocytic nevus, intradermal type. 12/22/2019 13:33 EST [facility] at 1333 Microscopic [...] moderate amount of cytoplasm. The melanocytes show buffet waiter/waitress maturation. (Dr. Cavanaugh)/tmg 12/22/2019 13:33 [facility] Clinical History A. Skin colored nevus, 3D, 4 x 5 mm x2 years, increasing in size; B. Skin colored nevus, 3D 6 x 7 mm x2 years, increasing in size 12/22/2019 13:33 [facility] Attestation By the signature below, the attending physician certifies that they have 1) personally conducted a gross and/or microscopic examination of the described specimen(s), and/or personally interpreted the results of laboratory testing of the described specimen(s), and 2) personally rendered or confirmed the above diagnosis. 12/22/2019 13:33 [facility] at 1333 Gross Description A. Received in formalin labelled with proper patient identification (initials C, P) and L shoulder is an unoriented elliptical excision gray-white skin (0.7 x 0.6 cm) excised to a depth 0.2 cm. There is a rgay-brown nevus that is 0.6 x 0.4 x [...] face. Guanaco Summers 12/19/2019 17:21 12/22/2019 13:33 [facility] Scanned Images 12/22/2019 13:33 [facility] Tissue TISSUE SPECIMEN FROM SKIN / Unknown 12/18/2019 11:30 EST 12/19/2019 15:40 EST Tissue specimen (specimen) SPECIMEN FROM SKIN / Unknown 12/18/2019 11:30 EST 12/19/2019 15:40 EST us Erasmo Portillo PA-C PATHOLOGY ORDERABLES Hannah barrios Result [facility] [address] [place] [address] documented in this encounter Visit Diagnoses Diagnosis Encounter for other general examination documented in this encounter Care Teams Building Cleaning Supervisor Relationship Specialty Start Date End Date Unknown, Provider, PCP - General 08/22/17 Unknown, ProviderMD 08/22/17 documented as of this encounter
--- OUTSIDE RECORDS SUMMARY | 2024-10-25 13:31 | XMS_ITS | Referral Summary ---
Author Organization [facility] Address [address] [place] [address] Care Team Providers Care Investigation Division Lieutenant Name Role Phone Unknown, Provider MD Primary [...] file Insurance MEDICAID [place] Care Teams Investigation Division Lieutenant Relationship Specialty Start Date End Date Unknown, ProviderMD PCP - General 08/22/17 Unknown, MD Tito 08/22/17
--- OUTSIDE RECORDS SUMMARY | 2024-10-25 13:31 | XMS_ITS | Encounter Summary ---
Author Organization [facility] Address [address] [place] [address] Care Team Providers Care Spring Fitter Name Role Phone Unknown, Provider MD Primary Care Provider Unava ilable Unknown, Provider MD Primary Care Provider Unava ilable Unknown, Provider MD Unavailable Unavailable Encounter Details Date Type Department Care Team ([facility] st Contact Info) Description 08/17/2017 Results Only [facility] [phone] Guero Ravi PA-C [address] [place] [phone] Social History Tobacco Use Types Packs/Day Years [...] ? VIANNEY GONZALEZ ? Accession #: ? [id number] ? : ? 1975 (Age: 41) ??F [...] types 16,18,31,33,35, 39,45,51,52,56,58, 59,66, and 69 by setter automatic spinning lathe mediated amplification. Comments Document reviewed and electronically signed by: ? System Interface ? Report date: 08/31/2017 By the signature above, the attending physician certifies that he/she has personally conducted a gross and/or microscopic examination of the described specimens and rendered or confirmed the above diagnosis. End of Report [facility] 08/17/2017 08/22/2017 us Guero Ravi PA-C PATHOLOGY ORDERABLES Yamil al Result [facility] [address] [place] [id number] documented in this encounter Visit Diagnoses Not on filedocumented in this encounter Care Teams Spring Fitter Relationship Specialty Start Date End Date Unknown, Provider, PCP - General 09/17/15 08/21/17 Unknown, ProviderMD PCP - General 08/22/17 Unknown, ProviderMD 08/22/17 documented as of this encounter
--- OUTSIDE RECORDS SUMMARY | 2024-10-25 13:31 | XMS_ITS | Encounter Summary ---
[place] [address] Care Team Providers Care Static Balancer Name Role Phone Latanya Wade MD Primary Care Provider [phone] Reason for Visit * Reason Onset Date Comments Abnormal Lab 08/29/2013 Encounter Details Date Type Department Care Team (Late st Contact Info) Description 08/29/2013 Telephone [place] [phone] Sofie Guzman APRN Abnormal Lab Social History Tobacco Use Types [...] 11/26/2024 8:45 AM EST Appointment [place] [phone] Keri Avila [address] [place] [address] 12/31/2024 10:00 AM EST Office Visit [facility] at [place] [phone] Mercy Amanda MD [facility] [address] [facility] [address] 04/01/2025 2:00 PM EDT Office Visit [place] [phone] Erum Szymanski MD [facility] [place] [address] documented as of this encounter Visit Diagnoses Not on filedocumented in this encounter Care Teams Static Balancer Relationship Specialty Start Date End Date Latanya Wade MD [facility] [address] [place] [address] [place] [address] PCP - General 08/27/13 11/01/15 documented as of this encounter
[2024-10-25 15:55] LABS: Bilirubin Negative (Negative); Blood Moderate (Negative); Clarity Cloudy (Clear); Glucose Negative (Negative); Ketones Negative (Negative); Leukocyte Esterase Small (Negative); Nitrite Negative (Negative); Specific Gravity >= 1.030 (1.005-1.025); Urobilinogen 0.2 mg/dL (Up to 0.2); pH 5.5 (5-8)
[2024-10-25 16:39] LABS: Bacteria Many HPF (Negative); Epithelial Cells Many HPF (Negative); WBC >50 HPF (0-5)
[2024-10-25 16:40] LABS: C & S Indicated? No/Sq. Contamination
== END 2024-10-25 13:20 | disposition home or self-care (01) ==
LOC: LBN 13:19
PROVIDERS: PCP Physician Assistant Medical; Visit Provider Nurse Practitioner Family
DX: N39.0 Urinary tract infection, site not specified (principal)
CPT/HCPCS: 81003; 81015

== ENCOUNTER 2024-12-10 13:01 | Outpatient (REF) | payer MEDICAID, SELFPAY ==
[2024-12-10 15:38] LABS: Hemoglobin A1C 5.4 % (<5.7)
[2024-12-10 16:03] LABS: Calculated LDL 99 mg/dL (<100); Cholesterol 190 mg/dL (<200); HDL Cholesterol 44 mg/dL (40-60); Triglyceride 237 mg/dL (<150)
== END 2024-12-10 13:02 | disposition home or self-care (01) ==
LOC: NCHCN 13:01
PROVIDERS: PCP Physician Assistant Medical; Visit Provider Physician Assistant Medical
DX: E66.9 Obesity, unspecified (principal)
CPT/HCPCS: 80061; 83036

== ENCOUNTER 2025-08-05 20:21 | Outpatient (REF) | payer MEDICAID, SELFPAY | END 2025-08-05 20:22 | disposition home or self-care (01) | LOC: NCHCN 20:21 | PROVIDERS: PCP Physician Assistant Medical; Visit Provider Physician Assistant Medical | DX: R10.9 Unspecified abdominal pain (principal) | CPT/HCPCS: 87086 ==